=== PATIENT | male | born 1945 | race Caucasian/White ===

== ENCOUNTER → 2017-06-27 09:59 | Outpatient (CLI) | payer MEDICARE, SELFPAY ==
[2017-06-27 10:25] LABS: Hematocrit 49.7 % (40-54); Hemoglobin 15.6 g/dl (13.0-16.5); Mean Corp Hgb Conc 31.4 g/gl (32-36); Mean Corpuscular Hgb 28.5 pg (27.0-32.0); Mean Corpuscular Volume 90.7 fL (80-94); Mean Platelet Vol. 9.1 fl (6.2-12.0); Platelet Count 254 K/mm3 (150-450); RBC Distribution Width CV 15.1 % (11.6-14.6); Red Blood Count 5.48 M/mm3 (4.6-6.2); White Blood Count 7.1 K/mm3 (4.4-11.0)
[2017-06-27 10:27] LABS: Scan Indicated on CBC? Y/N NO
[2017-06-27 10:53] LABS: Anion Gap 6 (5-15); BUN 11 mg/dL (7-18); BUN/Creat Ratio 10.8 RATIO (10-20); Calcium,Total 8.6 mg/dL (8.5-10.1); Chloride 103 mmol/L (98-107); Creatinine, Serum 1.02 mg/dL (0.70-1.30); EST Glomerular Filtration Rate 76 mL/min (>60); Est Glom Filt Rate - Afr Amer 92 mL/min (>60); Glucose 103 mg/dL (70-110); Sodium Level 140 mmol/L (136-145)
== END ==
PROVIDERS: Family Provider Family Medicine; PCP Family Medicine; Visit Provider Orthopaedic Surgery
DX: Z01.818 Encounter for other preprocedural examination (principal)
CPT/HCPCS: 36415; 80048; 85027

== ENCOUNTER → 2017-08-05 13:45 | Outpatient (CLI) | payer MEDICARE, SELFPAY ==
[2017-08-05 15:45] LABS: Anion Gap 7 (5-15); BUN 11 mg/dL (7-18); BUN/Creat Ratio 11.7 RATIO (10-20); Calcium,Total 8.8 mg/dL (8.5-10.1); Chloride 103 mmol/L (98-107); Creatinine, Serum 0.94 mg/dL (0.70-1.30); EST Glomerular Filtration Rate 84 mL/min (>60); Est Glom Filt Rate - Afr Amer 101 mL/min (>60); Glucose 98 mg/dL (74-106); Potassium 3.8 mmol/L (3.5-5.1); Sodium Level 140 mmol/L (136-145)
== END ==
PROVIDERS: Family Provider Family Medicine; PCP Family Medicine; Visit Provider Surgery
DX: I71.4 Abdominal aortic aneurysm, without rupture (principal)
CPT/HCPCS: 36415; 80048

== ENCOUNTER → 2017-08-07 17:39 | Outpatient (CLI) | payer MEDICARE, SELFPAY ==
--- NOTE | 2017-08-07 17:40 | CT_ITS ---
STUDY: CTA OF THE ABDOMINAL AORTA AND BILATERAL LOWER EXTREMITIES REASON FOR EXAM: Male, 72 years old. Aortic aneurysm RADIATION DOSAGE (If Supplied By Facility): CTDIvol = ( 16.01 ) mGy, DLP = ( 974.77 ) mGycm TECHNIQUE: Axial CT angiography multi-detector data acquisition was obtained from the to the following intravenous administration of 100 ml of Isovue 370 contrast. Axial images and MIP images were reconstructed from the axial data set. Post-processing of the angiographic images was performed, with multiplanar reformation and 3D reconstruction. Individualized dose optimization techniques were used for this CT. TECHNICAL QUALITY: Good COMPARISON: None. Descriptors of Narrowing: None (0%) Mild (< 50%) Moderate (50-70%) Severe (70-90%) Subtotal/Total Occlusion (90-100%) Non-Evaluable (technically non-diagnostic FINDINGS: Abdominal aorta: There is an infrarenal abdominal aortic aneurysm measures 5.8 x 5.2 cm on transverse section and extends over 5.5 cm in length. The infrarenal neck of the aneurysm measures 5 cm in length. Transverse diameter of the neck measures 2.5 cm. Celiac and superior mesenteric arteries: No demonstrated narrowing. Inferior mesenteric artery: No demonstrated narrowing. Right renal artery(arteries): No demonstrated narrowing. Left renal artery(arteries): No demonstrated narrowing. Right common iliac artery: No demonstrated narrowing. Right external iliac artery: No demonstrated narrowing. Right internal iliac artery: No demonstrated narrowing. Left common iliac artery: Demonstrates aneurysmal dilatation measures 2.1 cm diameter. Left external iliac artery: No demonstrated narrowing. Left internal iliac artery: No demonstrated narrowing. RIGHT LOWER EXTREMITY Right common femoral artery: No demonstrated narrowing. Right profundus femoris: No demonstrated narrowing. Right superficial femoral: No demonstrated narrowing. Right popliteal artery: No demonstrated narrowing. Right tibioperoneal trunk: No demonstrated narrowing. Right anterior tibial artery: No demonstrated narrowing. Right posterior tibial artery: No demonstrated narrowing. Right peroneal artery: No demonstrated narrowing. LEFT LOWER EXTREMITY Left common femoral artery: No demonstrated narrowing. Left profundus femoris: No demonstrated narrowing. Left superficial femoral: No demonstrated narrowing. Left popliteal artery: No demonstrated narrowing. Left tibioperoneal trunk: No demonstrated narrowing. Left anterior tibial artery: No demonstrated narrowing. Left posterior tibial artery: No demonstrated narrowing. Left peroneal artery: No demonstrated narrowing. There is a small left pleural effusion. The visualized portions of the heart are within normal limits. Normal liver. There are surgical clips in the gallbladder fossa consistent with a prior cholecystectomy. Normal spleen. Normal pancreas. Normal bilateral adrenal glands. Bilateral renal cysts are noted the largest measures 9 cm in left kidney. Normal visualized stomach. Normal small intestine. Normal colon. The appendix is visualized and appears normal. Normal abdominal aorta. Normal inferior vena cava. Normal retroperitoneum. CT/CTA Abdomen W/WO Contrast IMPRESSION: There is an infrarenal abdominal aortic aneurysm measures 5.8 x 5.2 cm on transverse section and extends over 5.5 cm in length. The infrarenal neck of the aneurysm measures 5 cm in length. Transverse diameter of the neck measures 2.5 cm. 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 Small left pleural effusion. Electronically Signed: Javier Guerra MD at 2:49 EST Tel , Service support ,
== END ==
PROVIDERS: Family Provider Family Medicine; PCP Family Medicine; Visit Provider Surgery
DX: I71.4 Abdominal aortic aneurysm, without rupture (principal); I72.3 Aneurysm of iliac artery; J90 Pleural effusion, not elsewhere classified
CPT/HCPCS: 74175; Q9967

== ENCOUNTER → 2017-08-14 10:44 | Outpatient (CLI) | payer MEDICARE, SELFPAY ==
--- NOTE | 2017-08-14 10:49 | CDU_ITS ---
Reason For Study: Carotid bruit Rt. Velocities/BP Lt. Velocities/BP Prox CCA 80.3/14.7 cm/sec. Prox CCA 97.3/18.2 cm/sec. Mid CCA 82.1/14.1 cm/sec. Mid CCA 86.8/19.9 cm/sec. Dist CCA 72.1/15.2 cm/sec. Dist CCA 81.5/15.8 cm/sec. Prox ICA 56.9/14.9 cm/sec. Prox ICA 64.5/23.5 cm/sec. Mid ICA 64.5/18.2 cm/sec. Mid ICA 68.0/22.9 cm/sec. Dist ICA 66.3/18.2 cm/sec. Dist ICA 78.0/25.2 cm/sec. Rt. ICA/CCA = .81. Lt. ICA/CCA = .90. Prox ECA 113.0/7.0 cm/sec. Prox ECA 99.1/12.9 cm/sec. Rt. Vert. 59.2/19.3 cm/sec. Lt. Vert. 36.9/10.0 cm/sec. Right Extracranial There is intimal thickening but no significant atherosclerotic plaque noted in the right common carotid artery. There is heterogeneous, smooth atherosclerotic plaque noted in the right internal carotid artery. There is no significant atherosclerotic plaque noted in the right external carotid artery. Antegrade flow is noted in the right vertebral artery. Left Extracranial There is intimal thickening but no significant atherosclerotic plaque noted in the left common carotid artery. There is heterogeneous, irregular atherosclerotic plaque noted in the left internal carotid artery. There is no significant atherosclerotic plaque noted in the left external carotid artery. Antegrade flow is noted in the left vertebral artery. Procedure Carotid Duplex 01401. Exam performed in department. 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 Minimal calcific plague at the proximal left internal carotid with <50% stenosis. Normal flow bilateral external carotids. Patent and antegrade vertebrals bilaterally. Ordering Physician: Nam Berg Referring Physician: Nam Berg Performed By: Lorena Mario RVT
== END ==
PROVIDERS: Family Provider Family Medicine; PCP Family Medicine; Visit Provider Surgery
DX: R09.89 Other specified symptoms and signs involving the circulatory and respiratory systems (principal)
CPT/HCPCS: 93880

== ENCOUNTER 2017-09-09 04:52 | Inpatient (IN) | payer MEDICARE, SELFPAY ==
[2017-09-02 09:15] VITALS: BP 121/80; PULSE 70; RESP 17; TEMP 36.5; O2SAT 96; BMI 34.1
--- NOTE | 2017-09-02 09:40 | SDCEKG_ITS ---
Test Reason : Blood Pressure : / mmHG Vent. Rate : 068 BPM Atrial Rate : 068 BPM P-R Int : 182 ms QRS Dur : 092 ms QT Int : 410 ms P-R-T Axes : 051 073 050 degrees QTc Int : 435 ms Sinus rhythm with Premature atrial complexes Otherwise normal ECG Confirmed by SAI GIFFORD, CYRUS ([id number]), department editor ROCIO WRIGHT ([id number]) on 09/05/2017 12:49:13 PM Referred By: Nam Berg Confirmed By:CYRUS GIBBS MD
--- NOTE | 2017-09-02 10:00 | RAD_ITS ---
STUDY: X-RAY CHEST REASON FOR EXAM: Male, 72 years old. Preoperative evaluation. TECHNIQUE: PA and lateral views of the chest. COMPARISON: Comparison is made with prior examination dated December 27, 2016. FINDINGS: Hyperinflation. There is blunting of the left cost phrenic angle with a small left pleural effusion with underlying left basilar atelectasis and/or early infiltrate. This is new as compared to prior study. Normal size heart. Normal mediastinum and chandler. Normal visualized pulmonary arteries. Normal visualized aortic arch and descending thoracic aorta. There are diffuse degenerative changes of the visualized thoracic spine. Normal visualized ribs, clavicles, and shoulders. There is no demonstrated abnormality of the visualized soft tissue structures of the upper abdomen. RAD/Chest PA and Lateral IMPRESSION: Small left pleural effusion with underlying infiltration and/or atelectasis. Hyperinflation. Electronically Signed: Eriberto Allen MD at 10:27 EDT Tel [phone], Service support ,
[2017-09-02 10:24] LABS: Hematocrit 45.6 % (40-54); Hemoglobin 14.6 g/dl (13.0-16.5); Mean Corpuscular Hgb 28.3 pg (27.0-32.0); Mean Corpuscular Volume 88.4 fL (80-94); Mean Platelet Vol. 9.1 fl (6.2-12.0); Platelet Count 267 K/mm3 (150-450); RBC Distribution Width SD 45.1 fl (35.1-43.9); Red Blood Count 5.16 M/mm3 (4.6-6.2)
[2017-09-02 10:25] LABS: Scan Indicated on CBC? Y/N NO
[2017-09-02 10:30] LABS: Prothrombin Time (Protime)PT. 12.9 SECONDS (11.7-14.9)
[2017-09-02 10:33] LABS: Albumin, Serum 2.9 g/dL (3.2-5.0); Anion Gap 6 (5-15); BUN 10 mg/dL (7-18); Calcium,Total 8.4 mg/dL (8.5-10.1); Chloride 108 mmol/L (98-107); Creatinine, Serum 0.91 mg/dL (0.70-1.30); EST Glomerular Filtration Rate 87 mL/min (>60); Est Glom Filt Rate - Afr Amer 106 mL/min (>60); Estimated Creatinine Clearance 82.92 ml/min; Glucose 90 mg/dL (74-106); Potassium 3.9 mmol/L (3.5-5.1); Sodium Level 142 mmol/L (136-145)
[2017-09-02 10:39] LABS: AST(SGOT) 8 U/L (15-37); Alanine Aminotransfer ALT/SGPT 11 U/L (16-61); Albumin, Serum 2.9 g/dL (3.2-5.0); Alkaline Phosphatase 176 U/L (45-117); Bilirubin, Direct 0.14 mg/dL (0.00-0.30); Globulin 4.3 g/dL (2.2-4.2); Magnesium 2.1 mg/dL (1.6-2.6); Phosphorus 3.1 mg/dL (2.5-4.9); Protein, Total 7.2 g/dL (6.4-8.2)
[2017-09-09] VITALS (37 sets, daily range): BP systolic 90–181; BP diastolic 47–87; PULSE 51–83; RESP 9–17; TEMP 36.3–37; O2SAT 92–99; BMI 32.7; BMI 34.1
--- NOTE | 2017-09-09 06:05 | NURSING ---
Pt arrived to the unit at 05:10, prep was complete by this RN and fellow RN's. Pt is ready and prepped for Dr Berg to place A-Line.
--- NOTE | 2017-09-09 06:58 | PCM.OPRPT ---
Problem List (1) Abdominal aortic aneurysm (AAA) Status: Acute Qualifiers: Presence of rupture: without rupture Qualified Code(s): I71.4 - Abdominal aortic aneurysm, without rupture Report of Operation Date of Procedure: 09/09/17 Pre-Operative Diagnosis: Infrarenal abdominal aortic aneurysm Post-Operative Diagnosis: Same Surgery/Procedure Performed:: Left radial arterial line placement. Infrarenal abdominal aortic aneurysm stent graft repair Description of Surgical Findings:: Timeout and informed consent was obtained. At the bedside in the intensive care unit Toby test was performed demonstrating adequate ulnar flow. The left wrist was gently extended. It was prepped with Betadine. Under ultrasound guidance 1% lidocaine was instilled as a local anesthetic. A total 1 cc was used. A 20-gauge aero kit Angiocath was advanced under ultrasound guidance into the artery. Then utilizing Seldinger wire technique the catheter was advanced into the artery. It was secured skin with interrupted 4-0 nylon. OpSite dressing was applied followed by Coban wrap. Patient tolerated the procedure well. Hand was viable at the completion. There is no apparent complication. Good waveform was obtained. He was subsequently taken to the special procedures lab for definitive repair of his aortic aneurysm. 72-year-old gentleman was taken to the special procedures lab. He was placed on the table. He underwent monitored anesthesia care. 2 g of Ancef were given intravenously preoperatively. The abdomen and groins were sterilely prepped and draped. 1% lidocaine mixed 50-50 with 0.5% Marcaine was used as a local anesthetic. Throughout the procedure total 30 cc was used. Under ultrasound guidance both the right and left common femoral arteries were accessed with a singlewall needle. Seldinger wire technique performed. A Prydeinig short sheath dilator was inserted. Then 4 separate Perclose devices were placed over an 035 J-wire. These were performed at 2:00 8:00 positions and 10:00 4:00 positions. Having secured those then used the J-wire placed a pigtail catheter into the abdominal aorta proximal to the aneurysm then placed on Anplats wires bilaterally placed a 12 Prydeinig sheath on the left and a 16 Prydeinig sheath on the right. The main body 26 x 14.5 x 12 cm [place] excluder device was placed via the right common femoral. Reference number is [id number]. Serial #[id number]. An additional device is used where extension devices. Reference number PLC [id number]. Serial #[id number]. The additional device was reference number PLC [id number]. Serial #[id number]. A pigtail catheter with marking slots were placed from the left groin. Using Isovue contrast a AP aortogram was obtained with 12? of cc angulation. Bilateral renal arteries are identified. The main body device was then deployed via the right common femoral groin. Good positioning was achieved. The contralateral 12 Prydeinig sheath was then withdrawn and using a 5 Prydeinig Kumpe catheter to 035 angled Glidewire access was gained to the contralateral limb. Then that was exchanged out for a Amplatz wire. The pigtail catheter was inserted. The contralateral sheath was withdrawn. Contrast is injected retrograde through the sheath and measurements were made to the left internal iliac. Subsequently the 20 x 14 cm bulb on the device was placed on the left. The main body device was deployed completely than on the right. And a Sequeira upon extension measuring by 12 cm was placed. Subsequently the device was seated in place using a 27 mm diameter compliant balloon. Pigtail catheter was reinserted into the aorta proximal to the renals and using 15 cc a second for 25 cc of contrast in the AP aortogram was obtained. This demonstrated good positioning of all grafts with seeming of exclusion of the aneurysm. It was no endoleak identified. There was backflow noted via some lumbars on the right and via the CAROLEE on the left. Over on Plotts wires the sheaths were removed. The left groin was addressed first in the previously placed Perclose sutures were sterilely secured with good results on the left than the right was addressed. Good hemostasis simply achieved on the right. The feet were inspected they were noted to be warm viable with palpable pulses distally. At this point the patient received 20 mg of protamine. It is of note that after the placement of the original 8 Prydeinig sheaths that the patient received 12,000 units of heparin intravenously weight-based. After ACT measurements he received and other additional 1000 units of heparin IV. Sponge instrument needle counts were reported the surgeon for correct. Blood loss was approximately 200 cc. There were no specimens. No drains. He was taken back to the intensive care unit in satisfactory condition. Nam Berg M.D., F.A.C.S.
--- NOTE | 2017-09-09 07:00 | NURSING ---
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
[2017-09-09] MEDS: Cefazolin 2 GM in 0.9% Normal Saline 100 ML IV (07:24)
[2017-09-09] MEDS: Bupivacaine Mpf 0.5% 30 ML VIAL (08:00)
[2017-09-09 09:45] LABS: ACT Activated Clotting Time 131 sec (74-137)
[2017-09-09 09:45] LABS: ACT Activated Clotting Time 230 sec (74-137)
[2017-09-09 09:45] LABS: ACT Activated Clotting Time 246 sec (74-137)
[2017-09-09] MEDS: 0.9% Normal Saline 1,000 ML 75 ML IV ×2 (10:00→23:14)
--- NOTE | 2017-09-09 10:19 | PCM.PN.HOSP ---
Subjective: Patient is a 72-year-old gentleman with past medical history significant for Infrarenal abdominal aortic aneurysm for which patient underwent I Infrarenal abdominal aortic aneurysm stent graft repair by Dr. Nam Berg on on 09/09/2017. Patient post operative. Was complicated by elevated blood pressure. Patient apparently has hypertension for which he has not been on any antihypertensive medication. Patient was admitted to the intensive care unit for monitoring with consultation placed to the hospitalist service for management of patient blood pressure Objective: GENERAL: no apparent distress. HEENT: Clear conjunctiva, NECK; supple, normal thyroid, CHEST: Clear to auscultation bilaterally, HEART: Regular S1 S2, no audible murmurs ABDOMEN: soft, normoactive bowel sounds, RECTAL: deferred EXTREMITIES: No clubbing, no cyanosis. GRADE CHECKER: no lateralizing signs. SKIN: No lesions no erythema, Vitals/I&O's: Vital Signs Temp Pulse Resp BP Pulse Ox 97.4 F L 58 L 14 121/60 H 93 09/09/17 10:00 09/09/17 10:15 09/09/17 10:15 09/09/17 10:15 09/09/17 10:15 Oxygen Flow Rate (L/min) 2 Oxygen Delivery Method Nasal Cannula Weight: 112.5 kg Body Mass Index (BMI) 32.7 Intake and Output for Last 24 Hours 09/07/17 09/08/17 09/09/17 23:59 23:59 23:59 Output Total 700 / 700 Balance -700 / -700 Laboratory Results 09/09/17 06:55: Activated Clotting Time 131 09/09/17 08:50: Activated Clotting Time 230 H 09/09/17 09:12: Activated Clotting Time 246 H Current Medications Sodium Chloride () 250 mls @ 15 mls/hr IV .[id number] PRN PRN Reason: SALINE FLUSH Sodium Chloride () 5 - 30 ml IV UD PRN PRN Reason: SALINE FLUSH Medical Necessity - Tobacco Use Smoking Status: Current some day smoker Tobacco Use: Cigarettes Assessment/Plan Patient is a 72-year-old gentleman with past medical history significant for Infrarenal abdominal aortic aneurysm for which patient underwent I Infrarenal abdominal aortic aneurysm stent graft repair by Dr. Nam Berg on on 09/09/2017. Patient post operative. Was complicated by elevated blood pressure. Patient apparently has hypertension for which he has not been on any antihypertensive medication. Patient was admitted to the intensive care unit for monitoring with consultation placed to the hospitalist service for management of patient blood pressure 1. Status post Infrarenal abdominal aortic aneurysm stent graft repair by Dr. Nam Berg on on 09/09/2017 2. Hypertension patient blood pressure currently stable, an order was given for patient to be placed on hydralazine 10 mg every 4 hours as needed for systolic blood pressure greater than 160 3. Dyslipidemia patient currently managed with diet apparently allergic to statins 4. BPH patient is on Proscar and Flomax 5. DVT prophylaxis SCDs for now Code Visit Inpatient E&M: 40497 Subs Hosp L3
--- NOTE | 2017-09-09 14:34 | CASEMGMT ---
See RN CM Assessment Link. DC Plan Home- no needs identified. Femi MELVINN RN ACM
[2017-09-09] MEDS: Tamsulosin HCl 0.4 MG Capsule PO (15:07)
[2017-09-09] MEDS: Finasteride 5 MG Tablet PO (15:07)
[2017-09-09] MEDS: FLUoxetine 20 MG Capsule PO (15:07)
--- NOTE | 2017-09-09 17:08 | CPS ---
started by nursing
[2017-09-09] MEDS: hydrALAZINE 20 MG/ML Vial 10 MG IV (17:44)
[2017-09-09] MEDS: HYDROcodone Bitartrate/Apap 5/325 Tablet PO (17:55)
[2017-09-09] MEDS: amLODIPine 10 MG Tablet PO (18:41)
--- NOTE | 2017-09-09 19:29 | PCM.PN.BLA ---
Progress Note Pt with soreness bilateral groins Much more alert Some flatus HTN being treated Bilateral groins: supple Feet with pulses Continue gaurav and care
[2017-09-09] MEDS: LORazepam 2 MG/ML Syringe 0.5 MG IV (20:39)
[2017-09-09] MEDS: 0.9% NaCl Peripheral Flush Adult/Peds IV (20:39)
[2017-09-09] MEDS: BRIMONIDINE 0.2% 5ML BOTTLE 1 DRP EACH EYE (20:40)
[2017-09-09] MEDS: Timolol 0.5% 5ML OPTH.BTL 1 DRP EACH EYE (20:43)
[2017-09-10] VITALS (17 sets, daily range): BP systolic 121–160; BP diastolic 64–84; PULSE 75–92; RESP 14–23; TEMP 36.5–37.2; O2SAT 93–97
[2017-09-10 04:17] LABS: Absolute Lymphocyte Count 1.39 X10^3/ul (0.83-4.51); Absolute Neutrophil Count 6.9 X10^3/uL (2.0-7.7); Basophil# 0.02 X10^3/uL; Basophil% 0.2 % (0-1); Eosinophil# 0.28 X10^3/uL; Hematocrit 39.4 % (40-54); Hemoglobin 12.6 g/dl (13.0-16.5); Lymphocyte # 1.39 X10^3/ul (4.0); Lymphocyte % 14.8 % (19-41); Mean Corpuscular Volume 87.6 fL (80-94); Mean Platelet Vol. 8.8 fl (6.2-12.0); Monocyte# 0.81 X10^3/uL; Monocyte% 8.6 % (0-10); Neutrophil # 6.86 X10^3/uL (2.7-7.7); Neutrophil % 73.1 % (47-70); Platelet Count 244 K/mm3 (150-450); RBC Distribution Width CV 13.9 % (11.6-14.6); RBC Distribution Width SD 44.2 fl (35.1-43.9); White Blood Count 9.4 K/mm3 (4.4-11.0)
[2017-09-10 04:21] LABS: POSITIVE COUNT NO; POSITIVE DIFFERENTIAL NO; POSITIVE MORPHOLOGY NO
[2017-09-10 04:35] LABS: Anion Gap 7 (5-15); BUN 6 mg/dL (7-18); BUN/Creat Ratio 9.1 RATIO (10-20); Calcium,Total 7.9 mg/dL (8.5-10.1); Chloride 105 mmol/L (98-107); Creatinine, Serum 0.66 mg/dL (0.70-1.30); EST Glomerular Filtration Rate 127 mL/min (>60); Est Glom Filt Rate - Afr Amer 154 mL/min (>60); Estimated Creatinine Clearance 75.46 ml/min; Glucose 102 mg/dL (74-106); Potassium 3.7 mmol/L (3.5-5.1); Sodium Level 140 mmol/L (136-145)
[2017-09-10] MEDS: 0.9% NaCl Peripheral Flush Adult/Peds IV (05:05)
[2017-09-10] MEDS: hydrALAZINE 20 MG/ML Vial 10 MG IV (05:05)
--- NOTE | 2017-09-10 05:49 | PCM.PN.SRG ---
Subjective: Pt c/o soreness right arm at site of IV infiltrate Mild groin soreness Pos. flatus - Physical Exam General: Alert, Cooperative, No apparent distress Lungs: Clear to auscultation Cardiovascular: Regular rate Abdomen: Bowel Sounds Present, Soft, Non Tender Extremities: - - Mild ecchymosis bilateral groins Distal pulses intact Vital Signs Temp Pulse Resp BP Pulse Ox 98.9 F 85 23 H 160/75 H 96 09/10/17 04:00 09/10/17 05:05 09/10/17 05:00 09/10/17 05:05 09/10/17 05:00 Oxygen Flow Rate (L/min) 2 Oxygen Delivery Method Room Air Weight: 255 lb 1.197 oz Body Mass Index (BMI) 32.7 Intake and Output for Last 24 Hours 09/08/17 09/09/17 09/10/17 23:59 23:59 23:59 Intake Total 4284.0 / 4284.0 926 / 926 Output Total 2783 / 2783 475 / 475 Balance 1501.0 / 1501.0 451 / 451 Laboratory Tests Past 24 Hrs 09/09/17 09/09/17 09/09/17 06:55 08:50 09:12 WBC RBC Hgb Hct MCV MCH MCHC RDW RDW Differential Plt Count MPV Immature Gran % (Auto) Neut % (Auto) Lymph % (Auto) [place] % (Auto) Eos % (Auto) Baso % (Auto) Absolute Neuts (auto) Absolute Lymphs (auto) Total Counted Activated Clotting Time 131 230 H 246 H Sodium Potassium Chloride Carbon Dioxide Anion Gap BUN Creatinine Estim Creat Clear Calc Est GFR (MDRD) Af Amer Est GFR (MDRD) Non-Af BUN/Creatinine Ratio Glucose Calcium 09/10/17 09/10/17 04:00 04:00 WBC 9.4 RBC 4.50 L Hgb 12.6 L Hct 39.4 L MCV 87.6 MCH 28.0 MCHC 32.0 RDW 13.9 RDW Differential 44.2 H Plt Count 244 MPV 8.8 Immature Gran % (Auto) 0.300 Neut % (Auto) 73.1 H Lymph % (Auto) 14.8 L [place] % (Auto) 8.6 Eos % (Auto) 3.0 Baso % (Auto) 0.2 Absolute Neuts (auto) 6.9 Absolute Lymphs (auto) 1.39 Total Counted Not Reportable Activated Clotting Time Sodium 140 Potassium 3.7 Chloride 105 Carbon Dioxide 28.0 Anion Gap 7 BUN 6 L Creatinine 0.66 L Estim Creat Clear Calc 75.46 Est GFR (MDRD) Af Amer 154 Est GFR (MDRD) Non-Af 127 BUN/Creatinine Ratio 9.1 L Glucose 102 Calcium 7.9 L Medical Necessity - Tobacco Use Smoking Status: Current some day smoker Tobacco Use: Cigarettes Assessment/Plan Pt needs to void Plan discharge after primary care review and outpt HTN plan
--- NOTE | 2017-09-10 07:31 | PCM.PN.HOSP ---
Subjective: Seen had a relatively uneventful night. Blood pressure control still not optimal patient was started on amlodipine the day prior added Coreg 3.125 mg this a.m. Objective: GENERAL: no apparent distress. HEENT: Clear conjunctiva, NECK; supple, normal thyroid, CHEST: Clear to auscultation bilaterally, HEART: Regular S1 S2, no audible murmurs ABDOMEN: soft, normoactive bowel sounds, RECTAL: deferred EXTREMITIES: No clubbing, no cyanosis. ELEVATOR INSPECTOR: no lateralizing signs. SKIN: No lesions no erythema, Vitals/I&O's: Vital Signs Temp Pulse Resp BP Pulse Ox 98.9 F 90 17 151/80 H 96 09/10/17 07:22 09/10/17 07:22 09/10/17 07:22 09/10/17 07:22 09/10/17 07:30 Oxygen Flow Rate (L/min) 2 Oxygen Delivery Method Room Air Weight: 115.7 kg Body Mass Index (BMI) 32.7 Intake and Output for Last 24 Hours 09/08/17 09/09/17 09/10/17 23:59 23:59 23:59 Intake Total 4284.0 / 4284.0 1257 / 1257 Output Total 2783 / 2783 675 / 675 Balance 1501.0 / 1501.0 582 / 582 Laboratory Results 09/09/17 06:55: Activated Clotting Time 131 09/09/17 08:50: Activated Clotting Time 230 H 09/09/17 09:12: Activated Clotting Time 246 H 09/10/17 04:00: WBC 9.4, RBC 4.50 L, Hgb 12.6 L, Hct 39.4 L, MCV 87.6, MCH 28.0, MCHC 32.0, RDW 13.9, RDW Differential 44.2 H, Plt Count 244, MPV 8.8, Immature Gran % (Auto) 0.300, Neut % (Auto) 73.1 H, Lymph % (Auto) 14.8 L, Gage % (Auto) 8.6, Eos % (Auto) 3.0, Baso % (Auto) 0.2, Absolute Neuts (auto) 6.9, Absolute Lymphs (auto) 1.39, Total Counted Not Reportable 09/10/17 04:00: Sodium 140, Potassium 3.7, Chloride 105, Carbon Dioxide 28.0, Anion Gap 7, BUN 6 L, Creatinine 0.66 L, Estim Creat Clear Calc 75.46, Est GFR (MDRD) Af Amer 154, Est GFR (MDRD) Non-Af 127, BUN/Creatinine Ratio 9.1 L, Glucose 102, Calcium 7.9 L Current Medications Hydrocodone Bitart/Acetaminophen (Texline 5mg-325mg) 1 - 2 tablet PO Q4H PRN PRN PRN Reason: PAIN Last Admin: 09/09/17 17:55 Dose: 1 tablet Amlodipine Besylate (Norvasc) 10 mg PO DAILY [facility] Last Admin: 09/09/17 18:41 Dose: 10 mg Aspirin (Aspirin, Baby) 81 mg PO DAILY@0800 [facility] Brimonidine Tartrate (Brimonidine 0.2% 5ml Bottle) 1 drop EACH EYE BID [facility] Last Admin: 09/09/17 20:40 Dose: 1 drop Carvedilol (Coreg) 3.125 mg PO BID [facility] Finasteride (Proscar) 5 mg PO DAILY [facility] Last Admin: 09/09/17 15:07 Dose: 5 mg Fluoxetine HCl (Prozac) 20 mg PO DAILY [facility] Last Admin: 09/09/17 15:07 Dose: 20 mg Hydralazine HCl (Apresoline Iv) 10 mg IV Q4H PRN PRN PRN Reason: for SBP > 150 Last Admin: 09/10/17 05:05 Dose: 10 mg Lorazepam (Ativan) 0.5 mg IV Q6H PRN PRN PRN Reason: pain/anxiety Last Admin: 09/09/17 20:39 Dose: 0.5 mg Morphine Sulfate () 2 - 4 mg IV Q1H PRN PRN PRN Reason: PAIN Morphine Sulfate () 2 - 4 mg IV Q1H PRN PRN PRN Reason: PAIN Non-Formulary Medication (Imiquimod [Imiquimod]) 1 applic TOPICAL 5XW [facility] Ondansetron HCl (Zofran) 4 mg IV Q8H PRN PRN PRN Reason: Nausea/Vomiting Pantoprazole Sodium (Protonix) 20 mg PO DAILY [facility] Sodium Chloride () 5 - 30 ml IV UD PRN PRN Reason: SALINE FLUSH Last Admin: 09/10/17 05:05 Dose: 10 ml Tamsulosin HCl (Flomax) 0.4 mg PO DAILY [facility] Last Admin: 09/09/17 15:07 Dose: 0.4 mg Timolol Maleate (Timoptic) 1 drop EACH EYE BID [facility] Last Admin: 09/09/17 20:43 Dose: 1 drop Medical Necessity - Tobacco Use Smoking Status: Current some day smoker Tobacco Use: Cigarettes Assessment/Plan Patient is a 72-year-old gentleman with past medical history significant for Infrarenal abdominal aortic aneurysm for which patient underwent I Infrarenal abdominal aortic aneurysm stent graft repair by Dr. Nam Berg on on 09/09/2017. Patient post operative. Was complicated by elevated blood pressure. Patient apparently has hypertension for which he has not been on any antihypertensive medication. Patient was admitted to the intensive care unit for monitoring with consultation placed to the hospitalist service for management of patient blood pressure 1. Status post Infrarenal abdominal aortic aneurysm stent graft repair by Dr. Nam Berg on on 09/09/2017 2. Hypertension patient blood pressure currently stable, an order was given for patient to be placed on hydralazine 10 mg every 4 hours as needed for systolic blood pressure greater than 160 added amlodipine as well as Coreg to achieve optimal blood pressure control 3. Dyslipidemia patient currently managed with diet apparently allergic to statins 4. BPH patient is on Proscar and Flomax 5. DVT prophylaxis SCDs for now Code Visit Inpatient E&M: 68164 [facility] Hosp L3
--- NOTE | 2017-09-10 08:54 | PCM.DC.GS ---
Discharge Diet: Light diet - advance as tolerated Discharge Activity: May not drive while taking narcotic pain medications., May Not Shower - Sponge bathe until Friday keeping the incisions dry. May shower in (days): 3 Lifting Restrictions: 5 pounds Call your doctor if your incision/area has: Continuous Slow Oozing, Sudden Increased Bleeding, Increased Pain/ Swelling, Swelling at the incision site Call your doctor if you observe: Fever of 101 or Higher, Change in Color Suture Line Care: Avoid Pulling/Pushing, Avoid Pinching/Bending Cleanse incision/area with: Do not get Incision Wet Allergies/Adverse Reactions: Allergies adhesive Adverse Reaction (Verified 09/02/17 09:08) Itching atorvastatin [From Lipitor] Adverse Reaction (Verified 09/02/17 09:08) Other rosuvastatin calcium [From Crestor] Adverse Reaction (Verified 09/02/17 09:08) ACHING Medications to take at Discharge Finasteride [Proscar] 5 mg PO DAILY 11/18/13 Omeprazole [Prilosec] 20 mg PO DAILY 11/18/13 Tamsulosin HCl [Flomax] 0.4 mg PO DAILY 11/18/13 Aspirin E.C. [Ecotrin] 81 mg PO DAILY@0800 12/27/16 Fluoxetine HCl [Prozac] 20 mg PO DAILY 12/27/16 brimonidine 0.2 % eye drops 1 drp OPHTHALMIC BID ml 08/05/17 timolol maleate 0.5 % eye drops 1 drp OPHTHALMIC BID 08/05/17 Imiquimod 1 applic TOPICAL 5XW 09/09/17 Amlodipine [Norvasc] 10 mg PO DAILY #30 tab 09/10/17 Carvedilol [Coreg (Beta [place])] 3.125 mg PO BID #60 tab 09/10/17 Hydrocodone Bitart/Apap 5-325 [[place] 5/325] 1 - 2 tablet PO Q4H PRN PRN 3 Days #10 tablet 09/10/17 The following prescriptions were given: Hydrocodone Bitart/Apap 5-325 [[place] 5/325] 1 - 2 tablet PO Q4H PRN PRN 3 Days #10 tablet PRN Reason: Pain Amlodipine [Norvasc] 10 mg PO DAILY #30 tab Carvedilol [Coreg (Beta Junito)] 3.125 mg PO BID #60 tab Primary Care Physician: Osbaldo Berg III, MD [Primary Care Provider] - Please Follow Up With: Nam Berg MD - [phone] When: 10 days Proposed Discharge Date: 09/10/17
--- NOTE | 2017-09-10 08:58 | DCINST_ITS ---
Discharge Diet: Light diet - advance as tolerated Discharge Activity: May not drive while taking narcotic pain medications., May Not Shower - Sponge bathe until Friday keeping the incisions dry. May shower in (days): 3 Lifting Restrictions: 5 pounds Call your doctor if your incision/area has: Continuous Slow Oozing, Sudden Increased Bleeding, Increased Pain/ Swelling, Swelling at the incision site Call your doctor if you observe: Fever of 101 or Higher, Change in Color Suture Line Care: Avoid Pulling/Pushing, Avoid Pinching/Bending Cleanse incision/area with: Do not get Incision Wet Allergies/Adverse Reactions: Allergies adhesive Adverse Reaction (Verified 09/02/17 09:08) Itching atorvastatin [From Lipitor] Adverse Reaction (Verified 09/02/17 09:08) Other rosuvastatin calcium [From Crestor] Adverse Reaction (Verified 09/02/17 09:08) ACHING Medications to take at Discharge Finasteride [Proscar] 5 mg PO DAILY 11/18/13 Omeprazole [Prilosec] 20 mg PO DAILY 11/18/13 Tamsulosin HCl [Flomax] 0.4 mg PO DAILY 11/18/13 Aspirin E.C. [Ecotrin] 81 mg PO DAILY@0800 12/27/16 Fluoxetine HCl [Prozac] 20 mg PO DAILY 12/27/16 brimonidine 0.2 % eye drops 1 drp OPHTHALMIC BID ml 08/05/17 timolol maleate 0.5 % eye drops 1 drp OPHTHALMIC BID 08/05/17 Imiquimod 1 applic TOPICAL 5XW 09/09/17 Amlodipine [Norvasc] 10 mg PO DAILY #30 tab 09/10/17 Carvedilol [Coreg (Beta Junito)] 3.125 mg PO BID #60 tab 09/10/17 Hydrocodone Bitart/Apap 5-325 [[place] 5/325] 1 - 2 tablet PO Q4H PRN PRN 3 Days # 10 tablet 09/10/17 The following prescriptions were given: Hydrocodone Bitart/Apap 5-325 [[place] 5/325] 1 - 2 tablet PO Q4H PRN PRN 3 Days # 10 tablet PRN Reason: Pain Amlodipine [Norvasc] 10 mg PO DAILY #30 tab Carvedilol [Coreg (Beta Junito)] 3.125 mg PO BID #60 tab Primary Care Physician: Osbaldo Berg III, MD [Primary Care Provider] - Please Follow Up With: Nam Berg MD - [phone] When: 10 days Proposed Discharge Date: 09/10/17
[2017-09-10] MEDS: Carvedilol 3.125 MG TABLET PO (09:43)
[2017-09-10] MEDS: Aspirin 81 MG TAB.CHEW PO (09:43)
[2017-09-10] MEDS: FLUoxetine 20 MG Capsule PO (09:44)
[2017-09-10] MEDS: Pantoprazole Sodium 20 MG Tablet PO (09:44)
[2017-09-10] MEDS: BRIMONIDINE 0.2% 5ML BOTTLE 1 DRP EACH EYE (09:44)
[2017-09-10] MEDS: Finasteride 5 MG Tablet PO (09:44)
[2017-09-10] MEDS: Timolol 0.5% 5ML OPTH.BTL 1 DRP EACH EYE (09:45)
[2017-09-10] MEDS: amLODIPine 10 MG Tablet PO (09:46)
== END 2017-09-10 13:34 | disposition home or self-care (01) | DRG 269 ==
PROVIDERS: Anesthesiology; Admitting Provider Surgery; Family Provider Family Medicine; PCP Family Medicine; Visit Provider Surgery
PROC: 04V03DZ Restriction of Abdominal Aorta with Intraluminal Device, Percutaneous Approach (ICD-10-PCS; principal; 2017-09-09 07:00)
DX: I71.4 Abdominal aortic aneurysm, without rupture (principal); I87.2 Venous insufficiency (chronic) (peripheral); I10 Essential (primary) hypertension; F43.21 Adjustment disorder with depressed mood; F17.220 Nicotine dependence, chewing tobacco, uncomplicated; K21.9 Gastro-esophageal reflux disease without esophagitis; J43.9 Emphysema, unspecified; N40.0 Benign prostatic hyperplasia without lower urinary tract symptoms; L57.0 Actinic keratosis; E78.5 Hyperlipidemia, unspecified; R09.89 Other specified symptoms and signs involving the circulatory and respiratory systems; Z79.82 Long term (current) use of aspirin; Z79.899 Other long term (current) drug therapy; Z85.828 Personal history of other malignant neoplasm of skin
CPT/HCPCS: 34701; 34709; 36200; 75625; 76937; 80048; 80076; 82040; 83735; 84100; 85025; 85027; 85347; 85610; 85730; 86850; 86900; J7030; Q9967; A4216; C1725; C1760; C1769; C1894

== ENCOUNTER → 2017-11-20 12:35 | Outpatient (CLI) | payer MEDICARE, SELFPAY ==
--- NOTE | 2017-11-20 13:00 | CT_ITS ---
STUDY: CTA OF THE ABDOMINAL AORTA REASON FOR EXAM: Male, 72 years old. Status post abdominal aortic aneurysm repair 09/09/2017. Follow-up. RADIATION DOSAGE (If Supplied By Facility): CTDIvol = ( 32.59 ) mGy, DLP = ( 986.13 ) mGycm TECHNIQUE: Axial CT angiography multi-detector data acquisition was obtained from the lung bases to the mid pelvis following intravenous administration of 100mL ml of Isovue 370 contrast. Axial images and MIP images were reconstructed from the axial data set. Post-processing of the angiographic images was performed, with multiplanar reformation and 3D reconstruction. Individualized dose optimization techniques were used for this CT. TECHNICAL QUALITY: Good COMPARISON: CTA abdomen and pelvis 08/07/2017, 03/02/2017. FINDINGS: Body wall soft tissues: No acute process. Osseous structures: Mild scoliosis and mild lumbar spondylosis with osteopenia. Inferior chest: Mild hyperlucency at the lung bases suggests underlying COPD. The right lung bases otherwise clear. At the left lung base, mild atelectasis, small subpulmonic effusion. Distal esophagus normal, mild cardiomegaly with no pericardial effusion. Hepatobiliary: Cholecystectomy, otherwise unremarkable. Pancreas: No acute process. Spleen: No acute process. Adrenal glands: No acute process. Urogenital: Stable multiple benign renal cysts. Otherwise symmetric nephrograms and normal renal cortical thickness. Normal collecting systems, ureters. Retroperitoneum: No mass or lymphadenopathy. Stomach and small bowel: Normal. Large bowel: Normal appendix. Minimal diverticulosis of the sigmoid without diverticulitis. Vasculature: Aortoiliac stent graft. Proximal landing zone just below the takeoff of the renal arteries. Distal landing zones in the common iliac arteries. The graft is widely patent and well-positioned, and normally expanded There is no hyperdense thrombus within the [place] aneurysm sac. The [place] sac has a maximum diameter of 4.6 cm, fusiform shape with a length of 6.4 cm. There is evidence of very tiny type II endoleak involving inferior mesenteric artery, and involving a lumbar artery, very minimal blush of contrast within the [place] sac. CT/CTA Abdomen W/WO Contrast IMPRESSION: Appropriate positioning of the aortoiliac stent. Minimal type II endoleak's. Small left subpulmonic effusion with left lung base atelectasis. Electronically Signed: Adonis Jay, at 8:38 EDT Tel , Service support ,
[2017-11-20 13:25] LABS: CREATININE FINGERSTICK 0.9 mg/dL (0.70-1.30); EGFR FINGERSTICK > 60.0000 mL/min (>60)
== END ==
PROVIDERS: Family Provider Family Medicine; PCP Family Medicine; Visit Provider Surgery
DX: Z98.890 Other specified postprocedural states (principal); Z86.79 Personal history of other diseases of the circulatory system
CPT/HCPCS: 74175; Q9967

== ENCOUNTER 2017-12-29 11:50 | Day surgery (SDC) | payer SELFPAY ==
--- NOTE | 2017-12-29 11:54 | HP.PCM_ITS ---
History and Physical Date of Admission: 12/29/17 HISTORY AND PHYSICAL ? Rick Appiah 1945 ? REFERRING PHYSICIAN: ~~Osbaldo Berg III, MD ? CHIEF COMPLAINT: ~~Consult ? HPI: The patient is a 72 year old male referred for endoscopy. ~Rick no colon complaints. ~He denies any change in bowel habits, weight changes, blood in stools, black tarry stools or abdominal pain. ~He denies any known family history of colon cancer. ~The patient notes a past history of GERD, but states this is currently well-controlled with medication with no breakthrough symptoms. ~Last colonoscopy was in August 2007, due for 10-year screening. ? The patient is being seen by me today at the request of Dr. Osbaldo Berg III~for my opinion and advice regarding screening colonoscopy. ~~Past medical history is significant for hypertension, hyperlipidemia, emphysema, squamous cell carcinoma, and he is s/p AAA repair in August 2017. ~This was complicated by significant hypertension, patient has been working closely with PCP to get blood pressure under control since that time. ~He denies any chest pain or shortness of breath, states he feels well currently. ~Denies problems with sedation in the past. ? ? PAST MEDICAL HISTORY PAST MEDICAL HISTORY Diagnosis Date ? AAA (abdominal aortic aneurysm) (HCC) 02/06/2012 ? 01/10/17: ~CT abd 4.8 cm ? Benign hypertension 07/13/2015 ? Bruit ? ? right carotid artery ? Esophageal reflux ? ? Gastroesophageal reflux ? Facet arthritis of lumbar region (HCC) 06/27/2014 ? Hypertrophy of prostate without urinary obstruction and other lower urinary tract symptoms (LUTS) ? ? Hypertrophy of the prostate w/o obstruction ? Mixed hyperlipidemia ? ? Hyperlipidemia ? Nodule of right lung 04/17/2012 ? Other specified disorder of gallbladder 09/07/07 ? Personal history of colonic polyps ? ? Pulmonary emphysema (HCC) 12/31/2016 ? Sebaceous cyst ? ? Situational depression 07/03/2016 ? Skin cancer ? ? Non-melanoma. ? Squamous cell carcinoma 04/04/2015 ? See scanned documents ? Venous insufficiency of both lower extremities 07/01/2014 ? ? PAST SURGICAL HISTORY PAST SURGICAL HISTORY Procedure Laterality Date ? COLONOSCOP W/ OR W/O BRSH SPEC ? 08/17/07 ? INT REPAIR SCALP,JAYCOB,TRUNK 7.6-12.5CM ? 02/24/07 ? back ? LAP CHOLECYSTECT/CHOLANGIOGRAPHY ? 09/07/07 ? MRI ? 02/22/2014 ? [facility] - mri - right knee ~ ? PAST SURGICAL HISTORY OF N/A 09/09/2017 ? Abdominal aneurysm aortic repair ? REM LESION TRUNK,ARM,LEG > 4.0CM ? 02/24/07 ? back ? REM LESION TRUNK,ARM,LEG > 4.0CM ? ? ? REMV THIGH/KNEE TUMOR,SUBCUTANEOUS ? ? ? REMOVED FATTY TUMORS FROM UNDER ? REMV THIGH/KNEE TUMOR,SUBCUTANEOUS ? ? ? RMOVED FATTY TUMORE ? SURGERY (GENERAL SURGERY) CONSULT ? 04/25/2015 ? Invasive squamous cell carcincoma see scanned documents ? ? CURRENT MEDICATIONS ? Current Outpatient Prescriptions: amLODIPine (NORVASC) 5 mg tablet Take 5 mg by mouth once daily. carvedilol (COREG) 3.125 mg tablet Take 1 tablet by mouth twice daily. omeprazole (PRILOSEC) 20 mg capsule Take 1 capsule by mouth every morning. tamsulosin ER (FLOMAX) 0.4 mg cp24 Take 1 capsule by mouth once daily. FLUoxetine (PROZAC) 20 mg capsule Take 1 capsule by mouth once daily. brimonidine (ALPHAGAN) 0.2 % ophthalmic solution Use 1 Drop in both eyes twice daily. cholecalciferol (VITAMIN D3) 1,000 unit tab tablet Take 1,000 Units by mouth once daily. timolol maleate (TIMOPTIC) 0.5 % ophthalmic solution Use 1 Drop in both eyes twice daily. finasteride (PROSCAR) 5 mg tablet Take 1 tablet by mouth once daily. aspirin, enteric coated (ECOTRIN LOW STRENGTH) 81 mg EC tablet Take 1 tablet by mouth once daily. ? No current facility-administered medications for this visit. ? ALLERGIES: Lipitor [Atorvastatin Calcium]; Medical Tape [Other]; Rosuvastatin Calcium ? PERSONAL HISTORY: SOCIAL HISTORY Social History ~~Marital status: ~~~~~~~~~~~~Spouse name: ~~~~~~~~~~~~~~~~~~ ~~Years of education: ~~~~~~~~~~~~~~~~Number of children: ~~~~~~~~~~ ? 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 Social History Main Topics ~~Smoking status: Former Smoker ~~~~~~~~~~~~~~~~~~~~~~~~~~~~~~~~~~~~~~~~~~~~~~~~ ~~~~~~~~ ~~~~~Packs/day: 1.00 ~~~~~Years: 30.00 ~~ ~~~~~Types: Cigarettes ~~~~~Quit date: 06/02/1988 ~~Smokeless tobacco: Current User ~~~~~~~~~~~~~~~~~ ~~~~~Types: Chew ~~Comment: Brief relaps after of spouse. ~~Alcohol use: Yes ~~~~~~~~ ~~~~~Comment: Seldom ~~Drug use: No ~~~~~~~~~ ? FAMILY HISTORY: FAMILY HISTORY FAMILY HISTORY Problem Relation Age of Onset ? Emphysema Mother ? ? Arthritis Sister ? ? Hypertension Maternal Grandmother ? ? REVIEW OF SYMPTOMS: ~~The review of systems data was entered by the nurse and reviewed by me ? Nursing Notes: Berta Nicholas RN ~11/28/2017 ~1:24 PM ~Signed REVIEW OF SYSTEMS: ~~~~~General:~~~The patient denies fatigue, denies weight loss, denies weight gain, denies feeling hot, and denies feelings of cold. ~~~~~Eyes: ~The patient NOTES glaucoma, denies eye injury/surgery, wears glasses or contacts. ~~~~~Ear/Nose/Throat: ~The patient denies allergies, denies hayfever, denies ear infections, and denies bloody noses. ~~~~~Cardiovascular: ~The patient denies chest pain, denies heart disease, NOTES high blood pressure,denies cardiac stent, denies prior heart attack, denies irregular heart beat, NOTES high cholesterol, ~denies poor circulation, denies heart failure, other cardiac issues, denies claudication, denies cold feet, denies peripheral arterial stent. ~~~~~Respiratory: ~The patient denies tuberculosis, denies pneumonia, denies frequent cough, denies pulmonary embolism, denies shortness of breath, and denies coughing up blood. ~~~~~Gastrointestinal: ~The patient denies difficulty swallowing, NOTES acid reflux, denies ulcers, denies vomiting, denies jaundice/hepatitis, denies gallbladder problems, denies black or tarry stools, denies hemorrhoids, denies bleeding from rectum, denies diverticulitis, denies constipation, denies diarrhea, denies loss of stool control, and denies hernias. ~~~~~Kidney/Bladder: ~The patient denies kidney stones, denies urine infections , and denies bloody urine. ~~~~~Skin: ~The patient notes a history of skin cancer, denies bleeding/ changing moles, and denies a history of skin rash. ~~~~~Neurologic: ~The patient denies a history of epilepsy/convulsions, denies headaches, denies head/spinal injuries, and denies stroke/TIA. ~~~~~Psychiatric: ~The patient denies psychiatric medications, notes depression , and denies voices, denies substance abuse. ~~~~~Endocrine: ~The patient denies thyroid disorders, denies diabetes, and denies hormonal problems. ~~~~~Hematologic: ~The patient denies a history of bruising, denies bleeding, and denies anemia, denies blood clots. ~~~~~Infections: ~The patient denies a history of measles and mumps, denies rheumatic fever, and denies sexually transmitted diseases. ~~~~~Musculoskeletal: ~The patient denies back pain/injury, denies back problems , denies sciatica, denies knee/foot trouble, denies arthritis, or denies gout. ? ? When was patient's last Mammogram screening? N/A ? ~Last Colonoscopy: ~2007 ? Berta Nicholas RN~ .confimedit ? ~ PHYSICAL EXAMINATION: ? General: ~The patient is 72 year old male, well nourished, well hydrated in no acute distress. ~The patient is oriented to time, place, and person. ? VITALS: Blood pressure 122/84, pulse 76, temperature 37 ?C (98.6 ?F), weight 116.1 kg (256 lb).~Body mass index is 33.78 kg/m?.~ ? HEENT: ~Normal cephalic, ataumatic, pupils are equally round, sclera are anicteric, mucous membranes are moist, oropharynx is clear. ~Neck has no masses , asymmetry or lymphadenopathy. ~ Respiratory: ~Clear to auscultation and percussion. ~Normal respiratory excursion and pattern. ? Cardiac: ~Examination is regular rate and rhythm. ? Abdominal exam: ~Soft, nontender, ~with no palpable masses. ~No hepatosplenomegaly. ~No palpable hernias. ? Rectal exam: exam deferred ? Extremities: ~no clubbing, cyanosis or edema. ~No adenopathy. ? Other: ? LABORATORY VALUES: As Noted ? RADIOLOGIC STUDIES: ~As Noted ? Assessment ~ IMPRESSION: encounter for screening colonoscopy. ~History of AAA repair in 2017 ? PLAN: ~We will plan for colonoscopy with MAC in November.~~We discussed the risks and benefits of the planned endoscopy. ~I have informed the patient that complications can occur including failure to complete the endoscopy and perforation. ~The patient had the opportunity to ask questions concerning the planned endoscopy. ~My staff has also explained the procedure to the patient in understandable terms and has given the patient printed material concerning the procedure. ~The patient freely consents to surgery. ? I plan to use golytely bowel preparation for endoscopy ? The patient has medical comorbidities for which I plan to perform the procedure under monitored anesthetic care. ? Diagnoses: (Z12.11) Screen for colon cancer ~(primary encounter diagnosis) ? My findings have been communicated to Dr. Berg~via shared medical record. ~ This note will be forwarded to Dr. Osbaldo Berg III MD. ~~ Return to Clinic: The patient is instructed to follow-up with me 1 week post operatively. ? ? Berta Aggarwal PA-C
[2017-12-29 12:31] VITALS: BP 154/71; PULSE 57; RESP 16; TEMP 36.9; O2SAT 98; BMI 33.5
--- NOTE | 2017-12-29 13:15 | COLBX_PTH ---
PATIENT: VICKI RANDLE LOC: EN U#:[id number] AGE/SX: 72/M ROOM: RE12/29/[address]: Dr. Adonis De Oliveira MD : 1945 BED: DIS: 12/29/2017 SPEC #: [id number] RECD: 12/29/17 14:20 STATUS: MALISSA RELee #: [id number] MARISELA: 12/29/17 13:[address]: Adonis De Oliveira DEPT: SURGICAL PATHOLOGY RECD BY: Justin Devi ENTERED: 12/30/17 07:36 SP TYPE: COLON BX OT DR: Dr. Osbaldo Berg III, MD Tissues: COLON BIOPSY Procedures: Surgery Specimen Level IV HEADER OPERATION: Colonoscopy (MAC) PRE-OP DIAGNOSIS: Screening TISSUE SUBMITTED: 20 cm polyp MICROSCOPIC DIAGNOSIS Colon, 20 cm polyp, polypectomy: Tubular adenoma. SJ:nguyễn 12/31/17 MICROSCOPIC DESCRIPTION Slides are reviewed. GROSS DESCRIPTION Received in fixative is one container labeled with the patient's name and designated 20 cm polyp. The specimen consists of a piece of barkley-pink polyp measuring 0.7 x 0.5 x 0.5 cm. The entire specimen is submitted in one cassette. / SJ:nguyễn 12/30/17 TC:1 CPT: 22337
[2017-12-29 13:46] VITALS: BP 102/69; BP 154/71; PULSE 56; RESP 18; TEMP 36.3; O2SAT 99
--- NOTE | 2017-12-29 13:47 | OP.PCM_ITS ---
Report of Operation Date of Procedure: 12/29/17 Pre-Operative Diagnosis: screening for colon cancer Post-Operative Diagnosis: few diverticula, polyp at 20cm Surgery/Procedure Performed:: colonoscopy with snare polypectomy Type of Anesthesia:: MAC Anesthesiologist: Kevin Peoples - ASA3 Specimen's removed: polyp at 20cm Description of Procedure: The patient was brought to the endoscopy suite. Sign in was performed verifying patient, site, planned procedure, critical nursing information, the patient was monitored with cardiac, pulse oximetric, and blood pressure monitoring devices. Monitored anesthetic care was provided for sedation. Following IV sedation, the patient was positioned for colonoscopy. A digital rectal exam was performed which revealed no palpable abnormalities The video colonoscope was inserted and advanced to the cecum as verified by the ileocecal valve, cecal base anatomic features and palpation. the cecum, ascending colon, hepatic flexure, transverse colon, splenic flexure and descending colon all around unremarkable. The patient had few small to moderate -sized diverticula in the sigmoid colon. In the distal sigmoid colon at 20 cm, there was a pedunculated polyp. This is removed via hot snare polypectomy. This was sent for pathology. The remainder of the rectosigmoid was unremarkable. The scope was retroflexed and the anal verge appeared unremarkable. The patient tolerated the procedure well and was brought to recovery in stable condition. the patient's follow-up with my physician's licensed nursing assistant Berta Aggarwal in one week for pathology results.
[2017-12-29 13:50] VITALS: BP 116/76; BP 154/71; PULSE 58; RESP 18; O2SAT 99
[2017-12-29 13:55] VITALS: BP 119/71; BP 154/71; PULSE 58; RESP 18; O2SAT 98
[2017-12-29 14:03] VITALS: BP 124/81; BP 154/71; PULSE 60; RESP 18; TEMP 37.1; O2SAT 100
[2017-12-29 14:30] VITALS: BP 154/71
== END 2017-12-29 14:40 | disposition home or self-care (01) ==
LOC: EN 11:50 → AC 11:52
PROVIDERS: Family Provider Family Medicine; PCP Family Medicine; Visit Provider Surgery
PROC: 0DJD8ZZ Inspection of Lower Intestinal Tract, Via Natural or Artificial Opening Endoscopic (ICD-10-PCS; CPT 45378; principal; 2017-12-29 13:10)
DX: Z12.11 Encounter for screening for malignant neoplasm of colon (principal); D12.4 Benign neoplasm of descending colon; K21.9 Gastro-esophageal reflux disease without esophagitis; Z86.010 Personal history of colon polyps; I10 Essential (primary) hypertension; N40.0 Benign prostatic hyperplasia without lower urinary tract symptoms; J43.9 Emphysema, unspecified; E78.2 Mixed hyperlipidemia; F43.21 Adjustment disorder with depressed mood; F17.220 Nicotine dependence, chewing tobacco, uncomplicated; Z86.79 Personal history of other diseases of the circulatory system; Z85.828 Personal history of other malignant neoplasm of skin; Z79.899 Other long term (current) drug therapy
CPT/HCPCS: 45385; 88305; J7120

== ENCOUNTER 2018-02-19 18:48 | Emergency (ER) | payer MEDICARE, SELFPAY ==
[2018-02-19 18:48] VITALS: BP 123/84; PULSE 78; RESP 16; TEMP 36.8; O2SAT 93; BMI 34.2
--- NOTE | 2018-02-19 19:31 | US_ITS ---
STUDY: VENOUS DOPPLER ULTRASOUND - BILATERAL LOWER EXTREMITIES REASON FOR EXAM: Male, 72 years old. TECHNIQUE: Ultrasound evaluation of the deep vein system to include guy-scale imaging and compression was performed. Guy-scale imaging and Doppler sonographic evaluation, including duplex spectral analysis and qualitative color flow sonography, was performed. COMPARISON: None. FINDINGS: Left leg Common Femoral Vein: Diminished compressibility and intraluminal echoes consistent with clot Common Femoral Vein/Greater Saphenous Junction: Diminished compressibility and internal echoes consistent with thrombus. Deep Femoral Vein: Normal compression, spontaneity and augmentation. Normal color Doppler. Femoral Proximal: Normal compression, spontaneity and augmentation. Normal color Doppler. Femoral Middle: Normal compression, spontaneity and augmentation. Normal color Doppler. Femoral Distal: Normal compression, spontaneity and augmentation. Normal color Doppler. Popliteal Vein: Normal compression, spontaneity and augmentation. Normal color Doppler. Posterior Tibial Vein: Normal compression, spontaneity and augmentation. Normal color Doppler. Peroneal Vein: Normal compression, spontaneity and augmentation. Normal color Doppler. Right leg Common Femoral Vein: Normal compression, spontaneity and augmentation. Normal color Doppler. Common Femoral Vein/Greater Saphenous Junction: Normal compression, spontaneity and augmentation. Normal color Doppler. Deep Femoral Vein: Normal compression, spontaneity and augmentation. Normal color Doppler. Femoral Proximal: Normal compression, spontaneity and augmentation. Normal color Doppler. Femoral Middle: Normal compression, spontaneity and augmentation. Normal color Doppler. Femoral Distal: Normal compression, spontaneity and augmentation. Normal color Doppler. Popliteal Vein: Normal compression, spontaneity and augmentation. Normal color Doppler. Posterior Tibial Vein: Normal compression, spontaneity and augmentation. Normal color Doppler. Peroneal Vein: Normal compression, spontaneity and augmentation. Normal color Doppler. US/Venous Duplex Imag/Dano Extrem IMPRESSION: Deep venous thrombosis of the left common femoral vein extending into the greater saphenous vein. Electronically Signed: Mookie Macario MD at 20:37 EDT , Service support ,
--- NOTE | 2018-02-19 21:11 | ED.VISSUMM ---
- ER Visit Summary Date of Service: 02/19/18 Chief Complaint: Left leg pain History of Present Illness: The patient is a 72 M presenting for evaluation secondary to progressive left leg pain. Patient reports that he has not had any sort of trauma but he has been developing pain and redness spreading up the medial portion of his left leg going up into his. He states that he does not have any history DVT or PE, no recent history of travel, no history of immobilization or hypercoagulability. Denies any chest pain shortness of breath or fevers. Review of systems otherwise negative. Physical Examination: Vital signs are within normal limits pulse ox 93%. Lower extremity exam shows the patient to have erythema swelling and palpable cord going from just distal to the knee all the way up the medial portion of the leg into the groin. There is no palpable crepitus. Normal range of motion of the hip knee ankle and foot normal distal pulses. Test Results: Duplex ultrasound demonstrates a saphenous vein clot that does extend all the way into the deep system Emergency Department Course and Treatment: Patient presented for evaluation secondary to pain and swelling in his left leg. Duplex ultrasound shows evidence of a DVT. I had a discussion with the patient about risks and benefits of anticoagulants, and he is in agreement on taking these at this time. I informed the patient that if he develops any sort of chest pain or shortness of breath he needs to immediately return to the emergency department. Patient will be started on a course of Eliquis. I did discuss patient's case with covering physician for the patient's primary care doctor, who agrees to get patient in for acute follow-up. Patient was discharged. Disposition: Discharge Impression: 1. Left leg DVT 2. Initiation of anticoagulation This note was generated with [employer] Star dictation software. It may contain incorrect words, spelling, and punctuation that were not noted in review of the chart prior to signing ED Disposition - Plan for ED Patient: Disposition: Home or Assisted Living Chief Complaint: Lower Extremity Injury Diagnosis: DVT (deep venous thrombosis) Instructions: Apixaban Oral tablet, ED DVT Prescriptions: Apixaban [Eliquis] 5 mg PO BID #74 tab Referrals: Osbaldo Berg III, MD [Primary Care Provider] - As soon as possible
[2018-02-19 21:38] VITALS: BP 138/72; PULSE 61; RESP 14; O2SAT 97
[2018-02-19] MEDS: APIXABAN 5 MG TABLET 10 MG PO (21:41)
== END 2018-02-19 21:46 | disposition home or self-care (01) ==
PROVIDERS: Emergency Provider Emergency Medicine; Family Provider Family Medicine; PCP Family Medicine
DX: I82.412 Acute embolism and thrombosis of left femoral vein (principal); I82.812 Embolism and thrombosis of superficial veins of left lower extremity; I10 Essential (primary) hypertension; Z79.899 Other long term (current) drug therapy
CPT/HCPCS: 93970; 99282

== ENCOUNTER 2018-04-28 06:15 | Day surgery (SDC) | payer MEDICARE, SELFPAY ==
--- NOTE | 2018-04-27 23:21 | PCM.HP.BLA ---
History and Physical Date of Admission: 04/28/18 HISTORY OF PRESENT ILLNESS Comes in today for evaluation for TBSE. He has noticed enlarging lesions on his left cheek, dorsum right hand by index finger, left outer proximal arm, left postauricular area by earlobe, left postauricular area near occipital hairline, and proximal nasal dorsum by nasal root. These lesions have increased in size over the last several months and have developed some crustiness. He denies any trauma. He denies any fever. He has used Aldara in the past with success. He states he recently had surgery for a AAA repair by Dr. Berg. He had used Aldara recently for the lesions on his superior helical rim right ear, base of right thumb, dorsum left hand by first web space, and dorsal distal left forearm. He tolerated it well. 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 Atypical squamous lesion left preauricular area Inflamed actinic keratosis dorsum left hand by ring finger Actinic keratosis with moderate to focal severe atypia left medial arm Actinic keratosis nasal dorsum Actinic keratosis with focal moderate to severe atypia right posterior ear Solar keratosis dorsum right hand by first web space Inflamed actinic keratosis right volar forearm Solar keratosis left lateral forehead Solar keratosis right lateral forehead by eyebrow Solar keratosis left distal dorsal forearm Solar keratosis left distal radial forearm Actinic damage left distal dorsal forearm Actinic damage left distal dorsal radial forearm Actinic damage dorsum bilateral hands Actinic damage right dorsal radial wrist near the base of the thumb Actinic damage right dorsal radial midforearm Solar keratosis mid dorsal right forearm Squamous cell carcinoma in situ and solar keratosis distal dorsal right forearm Actinic lesion with severe atypia dorsal right hand by the base of the thumb Squamous cell carcinoma in situ with solar keratosis dorsum left hand by base of thumb Squamous cell carcinoma in situ left lower back Seborrheic keratosis left upper back Actinic lesion left nasal tip Actinic lesion with severe atypia middle helical rim left ear Actinic lesion with moderate atypia dorsum right hand distally and by the long finger Actinic lesions cluster ?2 with moderate atypia dorsum left hand proximally by long finger 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 Actinic keratosis with severe atypia left arm Basal cell carcinoma right posterior auricular area, anterior Squamous cell carcinoma dorsal aspect mid right forearm Actinic keratosis with moderate to severe atypia right postauricular area, posterior Actinic keratosis with focal squamous cell carcinoma in situ dorsum right hand by ring finger Actinic keratosis with severe atypia dorsum left hand by first webspace Actinic keratosis with severe atypia dorsal radial distal left forearm by rest Actinic keratosis left upper neck, upper Actinic keratosis with moderate to severe atypia left lateral neck, lower actinic keratosis with moderate atypia left posterior arm PAST SURGICAL HISTORY: Excision of skin cancer face and hands Carpal tunnel surgery bilaterally Cholecystectomy Knee surgery ?5 Cataract surgery Excision 11 mm basal cell carcinoma left dorsal mid forearm with rhomboid transposition skin flap reconstruction and excision 12 mm squamous cell carcinoma right dorsal mid forearm with full-thickness skin graft reconstruction from proximal right forearm (10 cm?'s) on November 07, 2010 Excision 7 mm atypical squamous lesion left preauricular area with 25 mm delayed closure and intradermal excision 1 cm actinic lesion superior helical rim left ear and intradermal excision 7 mm echogenic lesion right posterior ear and intradermal excision 7 mm actinic lesion nasal dorsum and intradermal excision 5 mm lesion dorsum left hand and intradermal excision 5 mm lytic lesion left medial arm and intradermal excision 6 mm lesion right volar forearm on May 10, 2011 Intradermal excision 1 cm lesion dorsum right hand by the index finger and intradermal excision 5 mm lesion dorsum right hand first webspace and intradermal excision 5 mm lesion dorsum left hand by first webspace and intradermal excision 5 mm lesion left distal radial forearm and intradermal excision 5 mm lesion left distal dorsal forearm and intradermal excision 6 mm lesion right lateral forehead by the lateral eyebrow and intradermal excision 5 mm lesion left lateral forehead on August 22, 2011 Excision 1 cm lesion left upper back with 3 cm layered closure and excision 2.1 cm lesion left lower back 6.5 cm layered closure and intradermal excision 1 cm squamous cell carcinoma in situ distal dorsal right forearm and intradermal excision 6 mm squamous cell carcinoma in situ dorsum right hand by the base of thumb and intradermal excision 6 mm squamous cell carcinoma in situ dorsum left hand by base of thumb on November 19, 2012 Excision 6 mm squamous cell carcinoma in situ superior helical rim left ear with helical rim advancement skin flap reconstruction and intradermal excision 5 mm actinic lesion with severe atypia middle helical rim left ear and and intradermal excision 6 mm actinic lesion with severe atypia dorsal base right thumb and intradermal excision 6 mm actinic lesion with moderate atypia dorsum right hand distally by the long finger and intradermal excision 6 mm actinic lesion cluster ?3 with moderate atypia dorsum left hand proximally by the long finger on November 25, 2013 Excision 10 mm 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 and first stage complex left ear reconstruction with left postauricular advancement skin flap reconstruction and placement of cartilage graft from right ear and excision 7 mm actinic keratosis with severe atypia left arm with 5 cm layered closure on April 04, 2015 Second stage complex left ear reconstruction with division and inset of postauricular skin flap and reconstruction left postauricular donor site wound with advancement skin flap on April 25, 2015 Intradermal excision 7 mm actinic keratosis left lateral neck, lower, and intradermal excision 2.3 cm actinic keratosis left lateral neck, upper, and intradermal excision 5 mm actinic keratosis dorsum right hand by ring finger and intradermal excision 10 mm actinic keratosis dorsum left hand by first webspace and intradermal excision 8 mm actinic keratosis dorsal radial distal left forearm by wrist and excision 15 mm squamous cell carcinoma dorsal aspect mid right forearm with rhomboid transposition skin flap reconstruction protheses 14.5 cm?) and intradermal excision 8 mm actinic keratosis left posterior arm and excision 1 cm basal cell carcinoma right postauricular area, anterior, with rhomboid transposition skin flap reconstruction and intradermal excision 6 mm actinic keratosis right postauricular area, posterior on March 19, 2016 MEDICATIONS: Aspirin Zetia Omeprazole Flomax Lisinopril Aldara ALLERGIES: Adhesive tape FAMILY HISTORY: Negative for skin cancer, negative for bleeding disorders, and positive for diabetes SOCIAL HISTORY: Patient is a former smoker. Sometimes he starts up again but he has recently quit. He chews tobacco now. Patient does not drink alcohol. REVIEW OF SYSTEMS General-denies fever, fatigue, and weight loss. Eyes-denies eye pain. His cataracts. Denies glaucoma. ENT-denies nasal congestion sore throat. Cardiovascular-denies chest pain, fatigue, lightheadedness, and shortness of breath with exertion. Respiratory-complains of shortness of breath. Denies cough. Patient has a history of smoking and has quit. Chews tobacco now. Gastrointestinal-denies nausea, vomiting, diarrhea, and constipation. Genitourinary-complains of urinary frequency. Denies hematuria. Has prostate enlargement. Musculoskeletal-denies back pain, stiffness, muscle weakness, or arthritis. Had bilateral carpal tunnel surgery. Had knee surgeries ?5. Skin-he has enlarging lesions on his left cheek, dorsum right hand by index finger, left outer proximal arm, left postauricular area by earlobe, left postauricular area near occipital hairline, and proximal nasal dorsum by the nasal root. He has had multiple skin cancers removed in the past and multiple actinic lesions removed in the past. He had used Aldara recently on the lesions on his superior helical rim right ear, base right thumb, dorsum left hand by first web space, dorsal distal left forearm without problem. Neuro-denies poor balance, headaches, or weakness. Psych-denies anxiety depression. Endocrine-denies excessive thirst or urination. Hematologic-denies abnormal bruising and bleeding. PHYSICAL EXAMINATION General - Alert and oriented. HEENT -pupils equal round and reactive to light. Extraocular muscles intact. Throat is clear. On his left ear the flap on the middle helical rim is healing satisfactory with good contour. On the superior helical rim right ear was a lesion that was treated with Aldara that is smooth and appears healed at this time. On his left cheek is a 6 mm lesion that is slightly raised in configuration. Has some crustiness. Has irregular borders. No ulceration. Lesion is nontender. On the proximal nasal dorsum near the nasal root is a 6 mm lesion that is scabby. Has irregular borders. No ulceration. Lesion is nontender. On the left postauricular area by the earlobe is a 1 cm lesion that is crusty. Has irregular borders. No ulceration. Lesion is nontender. There is a mobile soft tissue mass adjacent to this crusty lesion that measures 1.5 cm. On the left postauricular area near the occipital hairline is a 6 mm lesion that is scabby. Has irregular borders. No ulceration. Lesion is nontender. Neck-no cervical adenopathy. No masses. No suspicious lesions noted. Chest wall-No suspicious lesions noted Lungs-Clear to auscultation. Heart-regular rate and rhythm. Abdomen-soft and nondistended. No suspicious lesions noted. Back-no suspicious lesions noted. Extremities-no clubbing cyanosis or edema with full range of motion of all joints. On the dorsum right hand by index finger is a 2.1 cm lesion that is slightly raised in configuration. Has some crustiness. Has irregular borders. No ulceration. Lesion is nontender. On the base of his right thumb was a lesion that has been treated with Aldara and is smooth and appears healed at this time. On the dorsum left hand by first webspace was a lesion that has been treated with Aldara and is smooth and appears healed at this time. On the dorsal distal left forearm was a lesion that has been treated with Aldara and is smooth and appears healed at this time. On the left outer proximal arm is a 6 mm lesion that is crusty and slightly raised in configuration. Has irregular borders. No ulceration. Lesion is nontender. No axillary adenopathy. Radial pulses are palpable. Neuro--cranial nerves II through XII grossly intact. ASSESSMENT 1. 2.1 cm lesion dorsum right hand by index finger. 2. 6 mm lesion left cheek. 3. 6 mm lesion left outer proximal arm. 4. 1 cm lesion left postauricular area by earlobe. 5. 6 mm lesion left postauricular area near occipital hairline. 6. 6 mm lesion proximal nasal dorsum near the nasal root. 7. Lesion superior helical rim right ear, appears healed after Aldara. 8. Lesion base right thumb, appears healed after Aldara. 9. Lesion dorsum left hand by first webspace, appears healed after Aldara. 10. Lesion dorsal distal left forearm, appears healed after Aldara. 11. Personal history of skin cancer. 12. Former smoker. PLAN We will write another prescription for Aldara that he will use on these lesions because of his history of skin cancer and actinic lesions. Some of these lesions may be actinic in nature and would benefit from the use of Aldara. The lesions that remain after using Aldara will need excision. Will send the lesions to Pathology for analysis to rule out carcinoma. Reconstruction will be with possible skin grafts or skin flaps. Surgery will be done on an outpatient basis under local anesthesia and IV sedation. He understands how to use the Aldara since he has used it in the past. Since he just had AAA repair, he wants to wait on surgery until April. Patient was informed of the risks and complications of the procedure including alternatives to surgery. These were discussed with the patient personally. Patient voices understanding and wishes to proceed. Some of the risks and complications were included in a form from the [employer] [place] [employer].
--- NOTE | 2018-04-28 | LES_PTH ---
PATIENT: VICKI RANDLE LOC: [facility] – [place] U#:[id number] AGE/SX: 72/M ROOM: RE04/28/[address]: Dr. Francis Dudley MD : 1945 BED: DIS: 04/28/2018 SPEC #: [id number] RECD: 04/28/18 09:01 STATUS: MALISSA SEVERIANO #: [id number] MARISELA: 04/28/18 00:[address]: Francis Dudley DEPT: SURGICAL PATHOLOGY RECD BY: Abimbola Pitt ENTERED: 04/28/18 09:41 SP TYPE: Lesion OTHR DR: Dr. Osbaldo Berg III, MD Tissues: A - Skin of hand and finger, NOS B - Skin of external ear, NOS C - Skin of external ear, NOS D - Skin of arm E - Skin of wrist and hand F - Skin of hand and finger, NOS G - Skin of external ear, NOS H - Skin of external ear, NOS Procedures: Frozen Section (charge) Surgery Specimen Level IV HEADER OPERATION: Excision lesion dorsum right hand by index finger with frozen PRE-OP DIAGNOSIS: 2.1 cm lesion dorsum, right hand by index finger; 6 mm lesion left cheek; 6 mm lesion left outer proximal arm; 1 cm lesion left postauricular area by earlobe; 6 mm lesion left proximal nasal dorsum near nasal root; personal history skin cancer TISSUE SUBMITTED: A - 2.1 cm lesion dorsum right hand by index finger sent for FS at 0856, B - 1 cm lesion left postauricular area by earlobe sent for FS at 0856, C - 6 mm lesion left postauricular area near occipital hairline sent for FS at 0858, D - Lesion left distal outer arm, suture at 12 o'clock, E - Lesion dorsal radial right wrist, F - Squamous cell carcinoma lesion dorsum right hand by index finger, suture at 12 o'clock, G - Actinic keratosis moderate atypia left postauricular area by earlobe, suture at 12 o'clock, H - Actinic keratosis moderate atypia left postauricular area near occipital hairline, suture at 12 o'clock FROZEN SECTION DIAGNOSIS A. 2.1 cm lesion, dorsum right hand by index finger, biopsy: Squamous cell carcinoma in situ, suspicious for invasive carcinoma. B. 1 cm lesion, left posterior auricular area by earlobe, shave biopsy: Actinic keratosis with moderate atypia. C. 6 cm lesion, left posterior auricular area near occipital hairline, shave biopsy: Actinic keratosis with mild to moderate atypia. SJ:nguyễn 04/28/18 Case has been reviewed in consultation with Dr. Mckeon who concurs with the above diagnosis. IDC:AM MICROSCOPIC DIAGNOSIS A. 2.1 cm lesion, dorsum right hand by index finger, shave biopsy: Invasive well differentiated squamous cell carcinoma, keratoacanthoma type. B. 1 cm lesion, left posterior auricular area by earlobe, shave biopsy: Inflamed actinic keratosis with moderate atypia. Solar elastosis. C. 6 cm lesion, left posterior auricular area near occipital hairline, shave biopsy: Actinic keratosis with mild atypia. Solar elastosis. D. Lesion, left distal outer arm, excisional biopsy: Actinic keratosis with mild atypia. Solar elastosis. E. Lesion, dorsal radial right wrist, shave biopsy: Inflamed actinic keratosis with mild to moderate atypia and solar elastosis. F. Squamous cell carcinoma lesion, dorsal right hand by index finger, excisional biopsy: Invasive well differentiated squamous cell carcinoma, completely excised. Perineural invasion is not seen. Actinic keratosis and solar elastosis. Focal ulceration, consistent with site of specimen A. G. Actinic keratosis, moderate atypia, left postauricular area by earlobe, excisional biopsy: Actinic keratosis with mild to moderate atypia. Solar elastosis. Focal ulceration, consistent with site of specimen B. H. Actinic keratosis, moderate atypia, left postauricular area near occipital hairline, excisional biopsy: Actinic keratosis with mild atypia. Solar elastosis. Focal ulceration, consistent with site of specimen C. SJ:nguyễn 04/29/18 COMMENT Case has been reviewed in consultation with Dr. Mckeon who concurs with the above diagnosis. IDC:AM MICROSCOPIC DESCRIPTION Slides are reviewed. GROSS DESCRIPTION A - Received fresh for frozen section diagnosis labeled with the patient's name is a specimen designated 2.1 cm lesion dorsum right hand by index finger. The specimen consists of a piece of barkley-white skin with underlying tissue measuring 2 x 1.5 x 0.5 cm. The skin surface is covered entirely by a nodular lesion. The specimen is inked, serially sectioned and submitted entirely for frozen section diagnosis in two cassettes. B - Received fresh for frozen section diagnosis labeled with the patient's name is a specimen designated 1 cm lesion left postauricular area by earlobe. The specimen consists of a shave biopsy of barkley-white skin measuring 1 x 0.5 x 0.1 cm. The specimen is bisected longitudinally and submitted entirely for frozen section diagnosis in one cassette. C - Received fresh for frozen section diagnosis labeled with the patient's name is a specimen designated 6 mm lesion left postauricular area near occipital hairline. The specimen consists of a shave biopsy of barkley-white skin measuring 1 x 0.5 x 0.5 cm. The specimen is bisected and submitted entirely for frozen section diagnosis in one cassette. D - Received is one container labeled with the patient's name is a specimen designated lesion left distal outer arm, suture at 12 o'clock. The specimen consists of a piece of barkley-white skin ellipse measuring 1.3 x 0.5 cm and up to 0.3 cm in thickness. The specimen is oriented by a suture at 12 o'clock tip. The specimen is inked as follows: 12 o'clock tip - yellow, 6 o'clock tip - green, 3 o'clock margin - black and 9 o'clock margin - blue. The entire specimen is submitted in one cassette. It will be serially sectioned at the time of embedding. E - Received is one container labeled with the patient's name is a specimen designated lesion dorsal radial right wrist. The specimen consists of a shave biopsy of barkley-white skin measuring 0.9 x 0.8 x 0.1 cm. The specimen is inked and submitted entirely in one cassette. It will be bisected at the time of embedding. F - Received is one container labeled with the patient's name is a specimen designated squamous cell carcinoma lesion dorsum right hand by index finger, suture at 12 o'clock. The specimen consists of a round piece of barkley-white skin measuring 3 x 3 x 0.3 cm. The specimen is oriented by a suture at 12 o'clock. The specimen is inked as follows: 12 to 3 o'clock - black, 3 to 6 o'clock - blue, 6 to 9 o'clock - green and 9 to 12 o'clock - yellow. A focal area of ulceration is noted at the surface consistent with site of specimen A. The specimen is serially sectioned and submitted entirely in four cassettes. Cassette 1 contains the 3 o'clock margin and cassette 4 contains the 9 o'clock margin. G - Received is one container labeled with the patient's name is a specimen designated actinic keratosis moderate atypia left postauricular area by earlobe, suture at 12 o'clock. The specimen consists of a william-shaped piece of barkley-white skin ellipse measuring 1.7 x 1.5 and up to 0.2 cm in thickness. The specimen is inked as follows: 12 to 3 o'clock - black, 3 to 6 o'clock - blue, 6 to 9 o'clock - green and 9 to 12 o'clock - yellow. A focal area of ulceration is noted consistent with site of specimen B. The specimen is serially sectioned and submitted entirely in one cassette. H - Received is one container labeled with the patient's name is a specimen designated actinic keratosis moderate atypia left postauricular near occipital hairline, suture at 12 o'clock. The specimen consists of a william-shaped piece of barkley-white skin ellipse measuring 1.5 x 1.7 x 0.3 cm. The specimen is inked as follows: 12 to 3 o'clock - black, 3 to 6 o'clock - blue, 6 to 9 o'clock - green and 9 to 12 o'clock - yellow. A focal area of ulceration is noted consistent with site of specimen C. The specimen is serially sectioned and submitted entirely in one cassette. / SJ:rg 04/28/18 TC:0 CPT: 05969 x8, [id number] x3
[2018-04-28 06:40] VITALS: BP 121/76; PULSE 60; RESP 16; TEMP 36.3; O2SAT 97; BMI 35.2
[2018-04-28] MEDS: Mupirocin Ointment 22gm Tube 1 APPLIC (11:00)
--- NOTE | 2018-04-28 11:09 | PCM.PN.BLA ---
Progress Note This morning the patient was examined after finishing Aldara. The lesions on his left cheek, proximal nasal dorsum near the nasal root, and left outer proximal arm appear smooth and healed at this time. Will observe these three areas for now. However the patient states he noticed a lesion on the dorsal radial aspect right wrist that has increased in size over the last couple of months with some scabbing as well. Measures 6 mm. Has irregular borders. No ulceration. Lesion is nontender. There is also a lesion on his left outer distal arm that has increased in size over the last couple of months with some scabbing. Measures 6 mm. Has irregular borders. No ulceration. Lesion is nontender. These two lesions will be excised today and sent to Pathology for analysis to rule out carcinoma. If carcinoma is present, then further excision will be done with skin flap or skin graft reconstruction. The remaining three lesions (dorsum right hand by index finger, left postauricular area by earlobe, and left postauricular area near occipital hairline) will also be excised today. Patient was informed of the risks and complications of the procedure including alternatives to surgery. These were discussed with the patient personally. Patient voices understanding and wishes to proceed.
--- NOTE | 2018-04-28 11:20 | PCM.IMDPSTOP ---
Immediate Post-Op Note Date of Procedure: 04/28/18 Primary Surgeon/Physician: Francis Dudley public speaking instructor: Wanda Borjas. public speaking instructor: Den Boyd. Pre-Operative Diagnosis: 1. 2.1 cm lesion dorsum right hand by index finger. 2. 1 cm lesion left postauricular area by earlobe. 3. 6 mm lesion left postauricular area near occipital hairline. 4. 6 mm lesion dorsal radial aspect right wrist. 5. 6 mm lesion left outer distal arm. 6. Personal history of skin cancer. 7. Former smoker. Post-Operative Diagnosis: 1. 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 2. 1 cm actinic keratosis with moderate atypia left postauricular area by earlobe. 3. 6 mm actinic keratosis with moderate atypia left postauricular area near occipital hairline. 4. 6 mm lesion dorsal radial aspect right wrist. 5. 6 mm lesion left outer distal arm. 6. Personal history of skin cancer. 7. Former smoker. Surgery/Procedure Performed:: 1. 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 2. Excision 1 cm actinic keratosis with moderate atypia left postauricular area by earlobe with rhomboid transposition skin flap reconstruction (6.5 cm2). 3. Excision 6 mm actinic keratosis with moderate atypia left postauricular area near occipital hairline with rhomboid transposition skin flap reconstruction (4 cm2). 4. Intradermal excision 6 mm lesion dorsal radial aspect right wrist. 5. Excision 6 mm lesion left outer distal arm with 2.5 cm layered closure. Description of Surgical Findings:: Comes in today for evaluation for TBSE. He has noticed enlarging lesions on his left cheek, dorsum right hand by index finger, left outer proximal arm, left postauricular area by earlobe, left postauricular area near occipital hairline, and proximal nasal dorsum by nasal root. These lesions have increased in size over the last several months and have developed some crustiness. He denies any trauma. He denies any fever. He has used Aldara in the past with success. He states he recently had surgery for a AAA repair by Dr. Cebul. He had used Aldara recently for the lesions on his superior helical rim right ear, base of right thumb, dorsum left hand by first web space, and dorsal distal left forearm. He tolerated it well. He had lesions dorsum right hand by index finger, left postauricular area by earlobe, and left postauricular area near occipital hairline excised and sent to Pathology as frozen sections. Frozen section showed a squamous cell carcinoma for the lesion dorsum right hand by index finger, and showed actinic keratosis with moderate atypia for the lesion left postauricular area by earlobe, and showed actinic keratosis with moderate atypia for the lesion left postauricular area near occipital hairline. 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 Frozen section left postauricular area by earlobe - actinic keratosis with moderate atypia. Frozen section left postauricular area near occipital hairline - actinic keratosis with moderate atypia. Estimated Blood Loss: 20 ml. Specimen's removed: 1. Lesion dorsum right hand by index finger to Pathology as a frozen section. 2. Lesion left postauricular area by earlobe to Pathology as a frozen section. 3. Lesion left postauricular area near occipital hairline to Pathology as a frozen section. 4. Lesion dorsal radial aspect right wrist to Pathology. 5. Lesion left outer distal arm to Pathology. 6. Squamous cell carcioma dorsum right hand by index finger to Pathology. 7. Actinic keratosis with moderate atypia left postauricular area by earlobe to Pathology. 8. Actinic keratosis with moderate atypia left postauricular area near occipital hairline to Pathology. Drains: None. Type of Anesthesia:: Local MAC - xylocaine with epinephrine and IV sedation. - Admit VTE Documentation VTE Present on Admission: No VTE Mechan Device Prophylaxis: SCD's VTE Pharm Prophylaxis ordered?: No
--- NOTE | 2018-04-28 11:20 | PCM.DC ---
You will use the following diet at home:: No restrictions Discharge Activity: May not drive while taking narcotic pain medications., May Shower - in two days. Place plastic bag over right hand when showering., - - keep head elevated. no heavy lifting. elevate right arm. May shower in (days): 2 - place plastic bag over right hand when showering. May resume sexual activity in: No Restrictions Weight Bearing Status: Weight bearing as tolerated Lifting Restrictions: 20 lbs. Keep extremity elevated above heart level: Right Arm, - - elevate head. Call your doctor if your incision/area has: Continuous Slow Oozing, Sudden Increased Bleeding, Increased Pain/ Swelling, Increased Redness, Foul Smelling Discharge, Swelling at the incision site Call your doctor if you observe: Fever of 101 or Higher, Coldness, Increased Pain, Shortness of breath, Chest pain, Calf discomfort, Uncontrolled pain Suture Line Care: - - apply antibiotic ointment to suture lines daily after left ear dressing and left arm dressing are removed in two days. Change Dressing in (Days):: 6 - will remove right hand dressing in office. Remove Dressing in (days):: 2 - left ear and left arm only. Cleanse incision/area with: - - may shower in two days. Wear plastic bag over right hand when showering. Allergies/Adverse Reactions: Allergies adhesive Adverse Reaction (Verified 02/19/18 18:50) Itching atorvastatin [From Lipitor] Adverse Reaction (Verified 02/19/18 18:50) Other rosuvastatin calcium [From Crestor] Adverse Reaction (Verified 02/19/18 18:50) ACHING Medications to take at Discharge Finasteride [Proscar] 5 mg PO DAILY 11/18/13 Omeprazole [Prilosec] 20 mg PO DAILY 11/18/13 Tamsulosin HCl [Flomax] 0.4 mg PO DAILY 11/18/13 Fluoxetine HCl [Prozac] 20 mg PO DAILY 12/27/16 brimonidine 0.2 % eye drops 1 drp OPHTHALMIC BID ml 08/05/17 timolol maleate 0.5 % eye drops 1 drp OPHTHALMIC BID 08/05/17 Imiquimod 1 applic TOPICAL 5XW 09/09/17 Carvedilol [Coreg (Beta Junito)] 3.125 mg PO BID #60 tab 09/10/17 Amlodipine [Norvasc] 10 mg PO QHS 04/21/18 Clindamycin HCl [Cleocin] 300 mg PO TID #21 cap 04/28/18 Lactobacillus Acidophilus/Fos [Acidophilus Probiotic Tablet] 1 ea PO BID #20 tab 04/28/18 Oxycodone HCl/Acetaminophen [Percocet 5/325] 1 tab PO 4X/DAY PRN PRN 7 Days #30 tab 04/28/18 The following prescriptions were given: Oxycodone HCl/Acetaminophen [Percocet 5/325] 1 tab PO 4X/DAY PRN PRN 7 Days #30 tab PRN Reason: Pain Lactobacillus Acidophilus/Fos [Acidophilus Probiotic Tablet] 1 ea PO BID #20 tab Clindamycin HCl [Cleocin] 300 mg PO TID #21 cap Primary Care Physician: Osbaldo Berg III, MD [Primary Care Provider] - Test Results: Test results from this visit will be discussed in further detail at your follow-up appointment, if applicable. Please Follow Up With: Francis Dudley MD When: friday05/04/18. call [phone] for appt. Proposed Discharge Date: 04/28/18
[2018-04-28 11:25] VITALS: BP 116/71; BP 121/76; PULSE 66; RESP 16; TEMP 36.7; O2SAT 95
[2018-04-28 11:30] VITALS: BP 114/66; BP 121/76; PULSE 61; RESP 16; O2SAT 93
[2018-04-28 11:35] VITALS: BP 109/68; BP 121/76; PULSE 63; RESP 16; O2SAT 93
[2018-04-28 11:40] VITALS: BP 114/69; BP 121/76; PULSE 60; RESP 16; TEMP 36.5; O2SAT 94
[2018-04-28 12:22] VITALS: BP 121/76
--- NOTE | 2018-04-28 21:10 | PCM.OPRPT ---
Report of Operation Date of Procedure: 04/28/18 Pre-Operative Diagnosis: 1. 2.1 cm lesion dorsum right hand by index finger. 2. 1 cm lesion left postauricular area by earlobe. 3. 6 mm lesion left postauricular area near occipital hairline. 4. 6 mm lesion dorsal radial aspect right wrist. 5. 6 mm lesion left outer distal arm. 6. Personal history of skin cancer. 7. Former smoker. Post-Operative Diagnosis: 1. 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 2. 1 cm actinic keratosis with moderate atypia left postauricular area by earlobe. 3. 6 mm actinic keratosis with moderate atypia left postauricular area near occipital hairline. 4. 6 mm lesion dorsal radial aspect right wrist. 5. 6 mm lesion left outer distal arm. 6. Personal history of skin cancer. 7. Former smoker. Surgery/Procedure Performed:: 1. 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 2. Excision 1 cm actinic keratosis with moderate atypia left postauricular area by earlobe with rhomboid transposition skin flap reconstruction (6.5 cm2). 3. Excision 6 mm actinic keratosis with moderate atypia left postauricular area near occipital hairline with rhomboid transposition skin flap reconstruction (4 cm2). 4. Intradermal excision 6 mm lesion dorsal radial aspect right wrist. 5. Excision 6 mm lesion left outer distal arm with 2.5 cm layered closure. Description of Surgical Findings:: Comes in today for evaluation for TBSE. He has noticed enlarging lesions on his dorsum right hand by index finger, dorsal radial aspect right wrist, left outer distal arm, left postauricular area by earlobe, and left postauricular area near occipital hairline. These lesions have increased in size over the last several months and have developed some crustiness. He denies any trauma. He denies any fever. He has used Aldara in the past with success. Surgical excision was recommended. Patient was informed of the risks and complications of the procedure including alternatives to surgery. These were discussed with the patient personally. Patient voices understanding and wishes to proceed. Some of the risks and complications were included in a form from the [employer]. 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 Frozen section left postauricular area by earlobe - actinic keratosis with moderate atypia. Frozen section left postauricular area near occipital hairline - actinic keratosis with moderate atypia. Size of skin graft dorsum right hand by index finger - 4.1 x 4.1 cm. lump roller: Wanda Borjas. lump roller: Den Boyd. Type of Anesthesia:: Local MAC - xylocaine with epinephrine and IV sedation. Specimen's removed: 1. Lesion dorsum right hand by index finger to Pathology as a frozen section. 2. Lesion left postauricular area by earlobe to Pathology as a frozen section. 3. Lesion left postauricular area near occipital hairline to Pathology as a frozen section. 4. Lesion dorsal radial aspect right wrist to Pathology. 5. Lesion left outer distal arm to Pathology. 6. Squamous cell carcioma dorsum right hand by index finger to Pathology. 7. Actinic keratosis with moderate atypia left postauricular area by earlobe to Pathology. 8. Actinic keratosis with moderate atypia left postauricular area near occipital hairline to Pathology. Drains: None. Estimated Blood Loss (mL): 20 ml. Description of Procedure: Patient was taken to OR in supine position and was given IV sedation. He was placed in the lateral position. The left ear, left neck, left arm, left flank, right hand and wrist were prepped and draped in the usual fashion. SCD's were placed for DVT prophylaxis. Perioperative antibiotics were given intravenously. The lesions (dorsum right hand by index finger, dorsal radial aspect right wrist, left postauricular area by earlobe, left postauricular area near occipital hairline, left outer distal arm, left flank area) were infiltrated with xylocaine and epinephrine. After waiting 5 minutes for the anesthetic to take effect, I excised the lesions on dorsum right hand by index finger, left postauricular area by earlobe, and left postauricular area near occipital hairline in an intradermal fashion and sent them to Pathology for analysis to rule out carcinoma. Frozen section showed the lesion on dorsum right hand by index finger was a squamous cell carcinoma, the lesion on left postauricular area by earlobe was an actinic keratosis with moderate atypia, and the lesion on left postauricular area near occipital hairline was an actinic keratosis with moderate atypia. These three lesions will be re-excised today. The lesion on the dorsal radial aspect right wrist looked clinically like an actinic lesion and was excised in an intradermal fashion and sent to Pathology for analysis to rule out carcinoma. Hemostasis was obtained with electrocautery. The lesion on the left outer distal arm looked clinically like an actinic lesion and was excised in an oblique elliptical fashion. A suture was marked at the 12 oclock position for pathology orientation and sent to pathology for analysis to rule out carcinoma. The lesion was excised with a 1 mm margin in all directions thus making it an 8 mm excision with a 2.5 cm layered closure. Hemostasis was obtained with electrocautery. The wound was closed in multiple layers with 4-0 Monocryl interrupted sutures for the deep dermis and subcutaneous tissue. The skin was approximated with 4-0 Prolene simple interrupted sutures. I then excised the squamous cell carcinoma on the dorsum right hand by index finger in a circular fashion with a 1 cm margin in all directions thus making it a 4.1 cm excision. A suture was placed at the 12 oclock position for pathology orientation and sent to pathology for analysis to rule out carcinoma at the margins. A FTSG was then harvested from the left flank. An ellipse of skin was excised in this area into the subcutaneous tissue. The subcutaneous tissue was removed from the undersurface of the dermis thus fashioning a full thickness skin graft. The skin graft was placed in saline. Some additional subcutaneous tissue was excised to aid in wound closure. Hemostasis was obtained with electrocautery. The donor incision was then closed in multiple layers with 2-0 Vicryl simple running suture for Elba's fascial layer. The deep dermis and subcutaneous tissue was approximated with 3-0 Monocryl interrupted sutures. The skin was approximated with 3-0 V lock unidirectional barbed running subcuticular suture. This was followed by Histoacryl skin tissue adhesive. Kerlix gauze dressing was then applied. The full thickness skin graft was then placed on the dorsum right hand wound and secured to the skin edges with 4-0 Chromic simple interrupted sutures. 4-0 Chromic sutures were used for central quilting stabilization. Antibiotic ointment was applied to the skin graft followed by xeroform gauze and cotton balls soaked in saline and secured to the skin with 3-0 Nylon tie over stent suture dressing. The size of the defect that was skin grafted was 4.1 x 4.1 cm or 16.8 cm2. The two lesions on the left postauricular area by earlobe and near occipital hairline were excised in rhomboid fashions into the subcutaneous tissue. Sutures were marked at the 12 oclock position for pathology orientation and sent to pathology for analysis to rule out carcinoma. These two lesions were excised with 4 mm margins. Both lesions were actinic keratoses with moderate atypia and will be excised with a necessary margin for the possibility of carcinoma being present on the final pathology report. Rhomboid flaps were designed adjacent to both wounds. Incisions were made and the flaps were elevated on a subcutaneous pedicle at the level of the underlying muscle. The rhomboid flaps were transposed into the defects with minimal tension and minimal distortion. Hemostasis was obtained with electrocautery. The size of the defects and the size of the flaps necessary to close these defects were 6.5 cm2 for the left postauricular area by earlobe lesion and 4 cm2 for the left postauricular area near occipital hairline. Both these wounds were then closed in a layered fashion after transposing the rhomboid flaps into the defects with 5-0 Monocryl interrupted sutures for the deep dermis and subcutaneous tissue. The skin was approximated with 5-0 Prolene simple interrupted sutures. Antibiotic ointment was applied followed by a gauze dressing. The incision on the left outer distal arm was dressed with antibiotic ointment followed by an Op-site dressing. The wound on the dorsal radial aspect right wrist was dressed with antibiotic ointment and xeroform gauze. Kerlix gauze was applied to the right hand and wrist followed by a compression shimon wrap. Patient tolerated the procedure well and was sent to PACU in satisfactory condition. Patient will be sent home on antibiotics and pain medication. Patient will keep his head elevate during the initial postoperative period. Patient will followup in a week for a wound check and takedown of the skin graft dressing and for discussion of the pathology report and for removal of the sutures. Grafts/Implants Used: None. - Complications None. - Admit VTE Documentation VTE Present on Admission: No VTE Mechan Device Prophylaxis: SCD's VTE Pharm Prophylaxis ordered?: No Code Visit Surgery Charges CPT - 76033 ICD-10 - C44.622, Z85.828, Z87.891 12992 C44.622, Z85.828, Z87.891 77487 L57.0, Z85.828, Z87.891 59119 L57.0, Z85.828, Z87.891 37431 D49.2, Z85.828, Z87.891 21449 D49.2, Z85.828, Z87.891 75420 D49.2, Z85.828, Z87.891
--- NOTE | 2018-04-29 16:11 | OP.PCM_ITS ---
Report of Operation Date of Procedure: 04/28/18 Pre-Operative Diagnosis: 1. 2.1 cm lesion dorsum right hand by index finger. 2. 1 cm lesion left postauricular area by earlobe. 3. 6 mm lesion left postauricular area near occipital hairline. 4. 6 mm lesion dorsal radial aspect right wrist. 5. 6 mm lesion left outer distal arm. 6. Personal history of skin cancer. 7. Former smoker. Post-Operative Diagnosis: 1. 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 2. 1 cm actinic keratosis with moderate atypia left postauricular area by earlobe. 3. 6 mm actinic keratosis with moderate atypia left postauricular area near occipital hairline. 4. 6 mm lesion dorsal radial aspect right wrist. 5. 6 mm lesion left outer distal arm. 6. Personal history of skin cancer. 7. Former smoker. Surgery/Procedure Performed:: 1. 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 2. Excision 1 cm actinic keratosis with moderate atypia left postauricular area by earlobe with rhomboid transposition skin flap reconstruction (6.5 cm2). 3. Excision 6 mm actinic keratosis with moderate atypia left postauricular area near occipital hairline with rhomboid transposition skin flap reconstruction (4 cm2). 4. Intradermal excision 6 mm lesion dorsal radial aspect right wrist. 5. Excision 6 mm lesion left outer distal arm with 2.5 cm layered closure. Description of Surgical Findings:: Comes in today for evaluation for TBSE. He has noticed enlarging lesions on his dorsum right hand by index finger, dorsal radial aspect right wrist, left outer distal arm, left postauricular area by earlobe, and left postauricular area near occipital hairline. These lesions have increased in size over the last several months and have developed some crustiness. He denies any trauma. He denies any fever. He has used Aldara in the past with success. Surgical excision was recommended. Patient was informed of the risks and complications of the procedure including alternatives to surgery. These were discussed with the patient personally. Patient voices understanding and wishes to proceed. Some of the risks and complications were included in a form from the [employer]. 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 Frozen section left postauricular area by earlobe - actinic keratosis with moderate atypia. Frozen section left postauricular area near occipital hairline - actinic keratosis with moderate atypia. Size of skin graft dorsum right hand by index finger - 4.1 x 4.1 cm. leak patcher: Wanda Borjas. leak patcher: Den Boyd. Type of Anesthesia:: Local MAC - xylocaine with epinephrine and IV sedation. Specimen's removed: 1. Lesion dorsum right hand by index finger to Pathology as a frozen section. 2. Lesion left postauricular area by earlobe to Pathology as a frozen section. 3. Lesion left postauricular area near occipital hairline to Pathology as a frozen section. 4. Lesion dorsal radial aspect right wrist to Pathology. 5. Lesion left outer distal arm to Pathology. 6. Squamous cell carcioma dorsum right hand by index finger to Pathology. 7. Actinic keratosis with moderate atypia left postauricular area by earlobe to Pathology. 8. A ctinic keratosis with moderate atypia left postauricular area near occipital hairline to Pathology. Drains: None. Estimated Blood Loss (mL): 20 ml. Description of Procedure: Patient was taken to OR in supine position and was given IV sedation. He was placed in the lateral position. The left ear, left neck, left arm, left flank, right hand and wrist were prepped and draped in the usual fashion. SCD's were placed for DVT prophylaxis. Perioperative antibiotics were given intravenously. The lesions (dorsum right hand by index finger, dorsal radial aspect right wrist, left postauricular area by earlobe, left postauricular area near occipital hairline, left outer distal arm, left flank area) were infiltrated with xylocaine and epinephrine. After waiting 5 minutes for the anesthetic to take effect, I excised the lesions on dorsum right hand by index finger, left postauricular area by earlobe, and left postauricular area near occipital hairline in an intradermal fashion and sent them to Pathology for analysis to rule out carcinoma. Frozen section showed the lesion on dorsum right hand by index finger was a squamous cell carcinoma, the lesion on left postauricular area by earlobe was an actinic keratosis with moderate atypia, and the lesion on left postauricular area near occipital hairline was an actinic keratosis with moderate atypia. These three lesions will be re-excised today. The lesion on the dorsal radial aspect right wrist looked clinically like an actinic lesion and was excised in an intradermal fashion and sent to Pathology for analysis to rule out carcinoma. Hemostasis was obtained with electrocautery. The lesion on the left outer distal arm looked clinically like an actinic lesion and was excised in an oblique elliptical fashion. A suture was marked at the 12 oclock position for pathology orientation and sent to pathology for analysis to rule out carcinoma. The lesion was excised with a 1 mm margin in all directions thus making it an 8 mm excision with a 2.5 cm layered closure. Hemostasis was obtained with electrocautery. The wound was closed in multiple layers with 4-0 Monocryl interrupted sutures for the deep dermis and subcutaneous tissue. The skin was approximated with 4-0 Prolene simple interrupted sutures. I then excised the squamous cell carcinoma on the dorsum right hand by index finger in a circular fashion with a 1 cm margin in all directions thus making it a 4.1 cm excision. A suture was placed at the 12 oclock position for pathology orientation and sent to pathology for analysis to rule out carcinoma at the margins. A FTSG was then harvested from the left flank. An ellipse of skin was excised in this area into the subcutaneous tissue. The subcutaneous tissue was removed from the undersurface of the dermis thus fashioning a full thickness skin graft. The skin graft was placed in saline. Some additional subcutaneous tissue was excised to aid in wound closure. Hemostasis was obtained with electrocautery. The donor incision was then closed in multiple layers with 2-0 Vicryl simple running suture for Elba's fascial layer. The deep dermis and subcutaneous tissue was approximated with 3-0 Monocryl interrupted sutures. The skin was approximated with 3-0 V lock unidirectional barbed running subcuticular suture. This was followed by Histoacryl skin tissue adhesive. Kerlix gauze dressing was then applied. The full thickness skin graft was then placed on the dorsum right hand wound and secured to the skin edges with 4-0 Chromic simple interrupted sutures. 4-0 Chromic sutures were used for central quilting stabilization. Antibiotic ointment was applied to the skin graft followed by xeroform gauze and cotton balls soaked in saline and secured to the skin with 3-0 Nylon tie over stent suture dressing. The size of the defect that was skin grafted was 4.1 x 4.1 cm or 16.8 cm2. The two lesions on the left postauricular area by earlobe and near occipital hairline were excised in rhomboid fashions into the subcutaneous tissue. Sutures were marked at the 12 oclock position for pathology orientation and sent to pathology for analysis to rule out carcinoma. These two lesions were excised with 4 mm margins. Both lesions were actinic keratoses with moderate atypia and will be excised with a necessary margin for the possibility of carcinoma being present on the final pathology report. Rhomboid flaps were designed adjacent to both wounds. Incisions were made and the flaps were elevated on a subcutaneous pedicle at the level of the underlying muscle. The rhomboid flaps were transposed into the defects with minimal tension and minimal distortion. Hemostasis was obtained with electrocautery. The size of the defects and the size of the flaps necessary to close these defects were 6.5 cm2 for the left postauricular area by earlobe lesion and 4 cm2 for the left postauricular area near occipital hairline. Both these wounds were then closed in a layered fashion after transposing the rhomboid flaps into the defects with 5-0 Monocryl interrupted sutures for the deep dermis and subcutaneous tissue. The skin was approximated with 5-0 Prolene simple interrupted sutures. Antibiotic ointment was applied followed by a gauze dressing. The incision on the left outer distal arm was dressed with antibiotic ointment followed by an Op-site dressing. The wound on the dorsal radial aspect right wrist was dressed with antibiotic ointment and xeroform gauze. Kerlix gauze was applied to the right hand and wri st followed by a compression shimon wrap. Patient tolerated the procedure well and was sent to PACU in satisfactory condition. Patient will be sent home on antibiotics and pain medication. Patient will keep his head elevate during the initial postoperative period. Patient will followup in a week for a wound check and takedown of the skin graft dressing and for discussion of the pathology report and for removal of the sutures. Grafts/Implants Used: None. - Complications None. - Admit VTE Documentation VTE Present on Admission: No VTE Mechan Device Prophylaxis: SCD's VTE Pharm Prophylaxis ordered?: No Code Visit Surgery Charges CPT - 74983 ICD-10 - C44.622, Z85.828, Z87.891 75313 C44.622, Z85.828, Z87.891 76987 L57.0, Z85.828, Z87.891 72020 L57.0, Z85.828, Z87.891 53657 D49.2, Z85.828, Z87.891 98025 D49.2, Z85.828, Z87.891 89138 D49.2, Z85.828, Z87.891
--- OUTSIDE RECORDS SUMMARY | 2018-06-09 19:26 | XMS RPT_ITS ---
:1945 Author Organization [place] Support Name Relationship Address Phone MARCO RANDLE Unavailable [address] + [place] [address] R Unavailable Unavailable Unavailable RAZIA MARCO Unavailable [address] + [place] [address] R Unavailable Unavailable Unavailable RAZIA MARCO Unavailable [address] + [place] [address] R Unavailable Unavailable Unavailable RAZIA MARCO Unavailable [address] + [place] [address] R Unavailable Unavailable Unavailable RAZIA MARCO Unavailable [address] + [place] [address] R Unavailable Unavailable Unavailable RAZIA MARCO Unavailable [address] + [place] [address] R Unavailable Unavailable Unavailable RAZIA MARCO Unavailable [address] + [place] [address] R Unavailable Unavailable Unavailable RAZIA MARCO Unavailable [address] + [place] [address] R Unavailable Unavailable Unavailable RAZIA MARCO Unavailable [address] + [place] [address] R Unavailable Unavailable Unavailable RAZIA MARCO Unavailable [address] + [place] [address] R Unavailable Unavailable Unavailable RAZIA MARCO Unavailable [address] + [place] [address] R Unavailable Unavailable Unavailable RAZIA MARCO Unavailable [address] + [place] [address] R Unavailable Unavailable Unavailable RAZIA MARCO Unavailable [address] + [place] [address] R Unavailable Unavailable Unavailable RAZIA MARCO Unavailable [address] + [place] [address] R Unavailable Unavailable Unavailable RAZIA, MARCO Unavailable [address] + [place] [address] R Unavailable Unavailable Unavailable RAZIA, MARCO Unavailable [address] + [place] [address] R Unavailable Unavailable Unavailable RAZIA, MARCO Unavailable [address] + [place] [address] R Unavailable Unavailable Unavailable RAZIA, MARCO Unavailable [address] + [place] [address] R Unavailable Unavailable Unavailable RAZIA, MARCO Unavailable [address] + [place] [address] R Unavailable Unavailable Unavailable RAZIA, MARCO Unavailable [address] + [place] [address] R Unavailable Unavailable Unavailable RAZIA, MARCO Unavailable [address] + [place] [address] R Unavailable Unavailable Unavailable RAZIA, MARCO Unavailable [address] + [place] [address] R Unavailable Unavailable Unavailable RAZIA, MARCO Unavailable [address] + [place] [address] R Unavailable Unavailable Unavailable RAZIA, MARCO Unavailable [address] + [place] [address] R Unavailable Unavailable Unavailable RAZIA, MARCO Unavailable [address] [phone] [place] [address] R Unavailable Unavailable Unavailable RAZIA, MARCO Unavailable [address] + [place] [address] R Unavailable Unavailable Unavailable RAZIA, MARCO Unavailable [address] [phone] [place] [address] R Unavailable Unavailable Unavailable RAZIA, MARCO Unavailable [address] [phone] [place] [address] R Unavailable Unavailable Unavailable RAZIA, MARCO Unavailable Unavailable + Care Team Providers Name Role Phone MARY ANN NEWELL MD Admitting Unavailable MARY ANN NEWELL MD Attending Unavailable MARY ANN NEWELL MD Primary Care Unavailable CEBULALVIN III Consulting Unavailable PROVIDER, UNKNOWN Consulting Unavailable CEBUL ALVIN PAZ Attending Unavailable CEBUL IIIALVIN Referring Unavailable CEBUL IIIALVIN Referring Unavailable CEBUL IIIALVIN Attending Unavailable CEBUL III, ALVIN A Referring Unavailable CEBUL III, ALVIN A Referring Unavailable CEBUL III, ALVIN A Referring Unavailable CEBUL III, ALVIN A Referring Unavailable BERTA CHOW (OLIVER) Attending Unavailable CEBUL III, ALVIN A Referring Unavailable BERTA CHOW (OLIVER) Attending Unavailable CEBUL III, ALVIN A Referring Unavailable CEBUL III, ALVIN A Attending Unavailable CEBUL III, ALVIN A Referring Unavailable CHAN MENON (OLIVER) Referring Unavailable CHAN MENON (OLIVER) Attending Unavailable CEBUL III, ALVIN A Attending Unavailable CEBUL III, ALVIN A Referring Unavailable Mary Ann Dudley Attending Unavailable Mary Ann Dudley Referring Unavailable Cebul III, Alvin Primary Care Unavailable Cebul III, Alvin Primary Care Unavailable Vicki Bull Attending Unavailable SlabMary Ann montalvo Attending Unavailable Cebul III, Alvin Referring Unavailable Cebul III, Alvin Primary Care Unavailable Andres De Oliveira Attending Unavailable Andres De Oliveira Referring Unavailable Cebul III, Alvin Primary Care Unavailable CebulNam Attending Unavailable Cebul III, Alvin Referring Unavailable Cebul III, Alvin Primary Care Unavailable Cebul, Nam Attending Unavailable CebulNam Referring Unavailable Cebul III, Alvin Primary Care Unavailable Luis Javier Attending Unavailable Cebul, Nam Referring Unavailable Cebul, Nam Attending Unavailable Cebul, Nam Attending Unavailable Cebul, Nam Attending Unavailable Cebul III, Alvin Referring Unavailable Cebul III, Alvin Primary Care Unavailable CebulNam Admitting Unavailable KitGurjit mckinney Attending Unavailable Cebul III, Alvin Primary Care Unavailable Gurjit [place] Consulting Unavailable CebulNam Consulting Unavailable CebulNam Admitting Unavailable KitGurjit mckinney Attending Unavailable Cebul III, Alvin Primary Care Unavailable KitGurjit mckinney Consulting Unavailable CebulNam Consulting Unavailable Cebul, Nam Attending Unavailable CebulNam Referring Unavailable Cebul III, Alvin Primary Care Unavailable CebulNam Admitting Unavailable Gurjit [place] Consulting Unavailable Cebul, aNm Attending Unavailable CebulNam Referring Unavailable Cebul III, Alvin Primary Care Unavailable Cebul, Nam Attending Unavailable CebulNam Referring Unavailable Cebul III, Alvin Primary Care Unavailable Cebul, aNm Attending Unavailable CebulNam Referring Unavailable Cebul III, Alvin Primary Care Unavailable Cebul, Nam Attending Unavailable Cebul III, Alvin Referring Unavailable Cebul III, Alvin Primary Care Unavailable Cebul, Nam Attending Unavailable Cebul III, Alvin Referring Unavailable Cebul, Nam Attending Unavailable Cebul III, Alvin Referring Unavailable Cebul III, Alvin Primary Care Unavailable Slaby, Mary Ann Attending Unavailable Cebul III, Alvin Referring Unavailable Cebul III, Alvin Primary Care Unavailable Cebul, Nam Attending Unavailable Cebul, Nam Referring Unavailable Cebul III, Alvin Primary Care Unavailable Cebul, Nam Consulting Unavailable Alba Nicolas Attending Unavailable Cebul III, Alvin Referring Unavailable Cebul, Nam Attending Unavailable Cebul, Nam Referring Unavailable Cebul III, Alvin Primary Care Unavailable Slaby, Mary Ann Attending Unavailable Cebul III, Alvin Referring Unavailable Slaby, Mary Ann Attending Unavailable Slaby, Mary Ann Referring Unavailable Cebul III, Alvin Primary Care Unavailable Slaby, Mary Ann Consulting Unavailable Slaby, Mary Ann Attending Unavailable Slaby, Mary Ann Referring Unavailable Cebul III, Alvin Primary Care Unavailable Slaby, Mary Ann Consulting Unavailable Gesler, Mary Ann Attending Unavailable Gesler, Mary Ann Referring Unavailable Cebul III, Alvin Primary Care Unavailable Cebul, Nam Attending Unavailable Cebul III, Alvin Referring Unavailable Cebul III, Alvin Primary Care Unavailable PROBLEMS PROBLEMS DATE TYPE CONDITION / CODE ATTENDING STATUS SOURCE 05/18/2018 Unknown I71.4 - Abdominal Nam Hughes Active [place] aortic aneurysm, Community without rupture / Hospital I71.4(ICD-10) Repository 04/29/2018 Unknown G89.18 - Other acute Mary Ann Dudley Active [place] postprocedural pain Community / G89.18(ICD-10) Hospital Repository 03/16/2018 Active 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 Clinic 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 / [place] Z79.01(ICD-10) Repository 01/16/2018 Active Unknown / SINAN, Active [place] UNK(Unknown) CHAN (OLIVER) Clinic Main [place] Repository 01/17/2017 Active Benign prostatic NA Active [place] hyperplasia with Clinic Main lower urinary tract [place] symptoms / Repository N40.1(ICD-10) 01/17/2017 Active 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 Clinic Main / N13.8(ICD-10) [place] Repository 07/13/2015 Active Essential (primary) NA Active [place] hypertension / Clinic Main I10(ICD-10) [place] Repository 01/09/2018 Active 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 / [place] Z79.899(ICD-10) Repository 11/20/2017 Unknown Z98.890 - Other Nam Hughes Active [place] specified Community postprocedural Hospital states / Repository Z98.890(ICD-10) 11/20/2017 Unknown Z86.79 - Personal Nam Hughes Active [place] history of other [facility] diseases of the Hospital circulatory system / Repository Z86.79(ICD-10) 09/26/2017 Unknown 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, Repository unspecified / I74.4(ICD-10) 10/10/2017 Unknown I10 - Essential Concepcion, Luis Active [place] (primary) [facility] hypertension / Hospital I10(ICD-10) Repository 09/24/2017 Unknown R09.89 - Other Nam Hughes Active [place] specified symptoms Community and signs involving Hospital the circulatory and Repository respiratory systems / R09.89(ICD-10) 07/15/2017 Active Abdominal aortic NA Active [place] aneurysm, without Clinic Main rupture / [place] I71.4(ICD-10) Repository 06/27/2017 Unknown Z01.818 - Encounter Mary Ann Newell Active [place] for other [facility] preprocedural Hospital examination / Repository Z01.818(ICD-10) 05/21/2017 Admitting Effusion, right knee MARY ANN NEWELL Active [place] [facility] Diagnosis / E15920(ICD-10) [facility] Repository 05/21/2017 Principle Effusion, right knee MARY ANN NEWELL Active [place] Diagnosis / G64807(ICD-10) [facility] Repository 05/21/2017 Secondary Unilateral primary MARY ANN NEWELL Active [place] [facility] Diagnosis osteoarthritis, [facility] knee / Hospital M1711(ICD-10) Repository PROCEDURES PROCEDURES No Procedure Records FoundRESULTS RESULTS ABD AORTIC/IVC DUPLEX Observed: 05/18/2018 Status: F Source: [place] SCAN 2:40 PM [facility] HOSPITAL REPOSITORY [facility] Cardiovascular Services [address] [place] [address] Abd Aortic/IVC Duplex scan 05/18/18 0919 MR#: [id number] Acct: [id number] Name: RAZIAVICKI Rep #: [id number] : 1945 72 From: Nam Hughes MD Attending Dr: Nam Hughes MD Status: REG CLI Ordering Dr: Nam Hughes MD Date: 05/18/18 Location: [facility] Sex: M C Admitted: Reason For Study: AAA with repair Aorta Measurements Aorta Doppler Measurements Proximal aorta measures1.9 x 1.9cm. in cross- Peak systolic flow velocities within the proximal sectional axis. aorta measure 95.8 cm/sec. Proximal aorta measures1.8cm. in longitudinal Peak systolic flow velocities within the mid aorta axis. measure 82.1 cm/sec. Mid aorta measures4.0 x 4.4cm. in cross-sectional Peak systolic flow velocities within the distal axis. aorta measure 78.4 cm/sec. Mid aorta measures4.5cm. in longitudinal axis. Distal aorta measures3.3 x 3.6cm. in cross- sectional axis. Distal aorta measures3.5cm. in longitudinal axis. Left Iliac Artery Left iliac artery measures 1.2 cm. in the longitudinal axis. Left iliac artery measures 1.2 x 1.2 cm. in the cross-sectional axis. Peak systolic velocity in the left iliac artery measures 75.2 cm/sec. Right Iliac Artery Right iliac artery measures 1.1 x 1.1 cm. in the longitudinal axis. Right iliac artery measures 1.1 cm. in the cross-sectional axis. Peak systolic velocity in the right iliac artery measures 108.0 cm/sec. Procedure Aorta IVC Iliac vasculature or bypass grafts 52785. Technically difficult due to body habitus and bowel gas. Exam performed in department. Interpretation Summary Maximal aortic aneurysm sac dimensions 4.01 x 4.41cm Mid aorta suggests AP diameter of 4.5cm Stent graft in place with normal flow Left common iliac 1.2cm Right common iliac 1.1cm Ordering Physician: Nam Hughes Referring Physician: Alvin Hughes Performed By: Lorena Mario RVT 05/18/181438 Date Nam Hughes MD CC: Alvin Hughes III, MD; Nam Hughes MD Date Dictated: 05/18/18918 Date Transcribed: 05/18/181438 Urology Physician: Signed SURGERY VISIT REPORT Observed: 05/18/2018 Status: F Source: MOTT 2:34 PM [facility] [address] [place] [address] [address] [place] [address] OFFICE VISIT Date of Service: 05/18/18 MR#: [id number] Acct: [id number] Name: VICKI RANDLE Rep #: [id number] : 1945 Provider: Nam Hughes MD Age/Sex: 72/M Location: [facility] Status: Signed Intake Vital Signs05/18/18 Body Mass Index (BMI) 35.2 Intake Visit Reasons: F/U U/S AAA 05/13/2018 Chief Complaint: AAA repair Administrative Intern Required: No Is patient in pain?: No Allergies adhesive Adverse Reaction (Verified 05/18/18 13:56) Itching atorvastatin [From Lipitor] Adverse Reaction (Verified 05/18/18 13:56) Other rosuvastatin calcium [From Crestor] Adverse Reaction (Verified 05/18/18 13:56) ACHING Medications Finasteride [Proscar] 5 mg PO DAILY 11/18/13 [History Confirmed 05/18/18] Omeprazole [Prilosec] 20 mg PO DAILY 11/18/13 [History Confirmed 05/18/18] Tamsulosin HCl [Flomax] 0.4 mg PO DAILY 11/18/13 [History Confirmed 05/18/18] Fluoxetine HCl [Prozac] 20 mg PO DAILY 12/27/16 [History Confirmed 05/18/18] brimonidine 0.2 % eye drops 1 drp OPHTHALMIC BID ml 08/05/17 [History Confirmed 05/18/18] timolol maleate 0.5 % eye drops 1 drp OPHTHALMIC BID 08/05/17 [History Confirmed 05/18/18] Carvedilol [Coreg (Beta Junito)] 3.125 mg PO BID #60 tab 09/10/17 [Rx Confirmed 05/18/18] Amlodipine [Norvasc] 10 mg PO QHS 04/21/18 [History Confirmed 05/18/18] Clindamycin HCl [Cleocin] 300 mg PO TID #21 cap 04/28/18 [Rx Confirmed 05/18/18] Lactobacillus Acidophilus/Fos [Acidophilus Probiotic Tablet] 1 ea PO BID #20 tab 04/28/18 [Rx Confirmed 05/18/18] imiquimod 5 % topical cream packet 1 applic TOPICAL 5XW #30 ea 05/13/18 [Rx Confirmed 05/18/18] PFSH Medical History Abdominal aortic aneurysm (AAA) (Acute) Neoplasm of skin of left cheek (Chronic) Neoplasm of skin of forearm (Chronic) Neoplasm of skin of hand (Chronic) Neoplasm of skin of ear (Chronic) 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) Neoplasm of skin of upper arm (Chronic) Personal history of skin cancer (Chronic) 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) AAA (abdominal aortic aneurysm) (Acute) ACTINIC LESION WITH SEVERE ATYPIA (Acute) ATYPICAL SQUAMOUS EPITHELIAL LESION WITH SOLAR KERATOSIS (Acute) ATYPICAL SQUAMOUS LESION LEFT PREAURICULAR AREA (Acute) Actinic keratosis (Acute) Actinic skin damage (Acute) Basal cell carcinoma (Acute) Carpal tunnel syndrome (Acute) Cataract (Acute) GERD (gastroesophageal reflux disease) (Acute) Hyperlipidemia (Acute) INFLAMED ACTINIC KERATOSIS (Acute) INFLAMED ACTINIC KERATOSIS RIGHT VOLAR FOREARM (Acute) Nodule of right lung (Acute) Prostate enlargement (Acute) Pulmonary emphysema (Acute) SCATTERED ACTINIC DAMAGE ON FACE AND UPPER EXTREMITIES (Acute) Seborrheic keratosis (Acute) Situational depression (Acute) Solar keratosis (Acute) Squamous cell carcinoma (Acute) Squamous cell carcinoma in situ (Acute) Squamous cell carcinoma in situ (Acute) Squamous cell carcinoma in situ (Acute) Venous insufficiency of both lower extremities (Acute) Hypertension (Chronic) Surgical History EXCISION ATYPICAL SQUAMOUS LESION (Acute) EXCISION LESIONS AND SKIN CANCERS (Acute) EXCISION OF SKIN CANCER FACE AND HANDS (Acute) H/O knee surgery (Acute) History of basal cell carcinoma excision (Acute) History of carpal tunnel surgery (Acute) History of cholecystectomy (Acute) History of squamous cell carcinoma excision (Acute) History of squamous cell carcinoma excision (Acute) Hx of cataract surgery (Acute) INTRADERMAL EXCISION LESIONS (Acute) S/P AAA repair (Acute) Family History Sister Diabetes Social History housing: house Smoking Status: Never smoker second hand exposure: No quit status: has quit before alcohol intake: current details: BEER AND MIXED DRINKS SOCIAL substance use type: does not use what type of physical activity do you participate in: other seatbelt use: always do you feel safe at home: Yes additional social history: SUN EXPOSURE: FREQUENTLY HPI HPI HPI: VICKI RANDLE, is a 72 M who presents to the office today for surgical follow-up status post aortic aneurysm stent graft. My note from November 26, 2017 reflects the following: HPI: VICKI RANDLE, is a 72 M who presents to the office today for surgical follow-up regarding his infrarenal abdominal aortic aneurysm stent graft repair that I performed for him September 09, 2017. The main body device deployed percutaneously from the right common femoral artery was a [place] excluder 26 x 14.5 x 12. The contralateral limb was a 20 x 14 sequeira bottom. An additional extension was placed on the right being a 20 x 12 similar sequeira bottom device. At the time of surgery is noted to have persistent flow in his inferior mesenteric artery and in the lumbar. Close follow-up was felt to be pertinent. At the [facility] on November 20, 2017 he had a CTA of the abdomen. Preoperatively his infrarenal abdominal aortic aneurysm was felt to be 4.8 cm. On the most recent examination the [place] sac has a measurement of 4.6 cm. The stent graft appears to be in good position. 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 Very minimal blush is seen within the [place] sac. Of additional note is the patient has a small left subpulmonic effusion. The patient admits that he does not get any type of routine organized exercise. He has no abdominal or back pain. On May 13, 2018 the patient had aortic duplex exam. This did not get a clear view of the previous aneurysm. The patient had a repeat study today. The aneurysm sac measures approximately 4.5 cm diameter. The patient denies abdomen or back pain. He continues to chew tobacco. He does not get any purposeful exercise. Exam Const General: cooperative Nutritional Appearance: obese Resp Auscultation: clear to auscultation bilaterally Cardio Rate: regular rate Rhythm: regular rhythm Other: Bilateral radial and brachials and carotids and femorals are 3+. No carotid bruit GI Other: Markedly overweight. I am not able to detect any internal organs. The aorta is not palpable Extrem General: no clubbing, cyanosis or edema Assessment AND Plan Problems 1. Abdominal aortic aneurysm (AAA) without rupture I71.4 Plan 72-year-old gentleman. On ultrasound duplex imaging his aortic aneurysm sac appears to be 4.5 cm which is stable and slightly less than preoperative. He had a previous CTA as noted above. That suggested a small type II endoleak. It would appear that this is not clinically significant at this time. The patient is asymptomatic. I would obtain a repeat CTA of his abdomen approximately September 2018 and have him return to my office at that setting. We will check a creatinine preintervention. He has had an opportunity to ask and have questions answered. At this time his progress and prognosis appears stable. I did take the opportunity today to strongly advised him that he cease his tobacco use I additionally invited him to initiate a daily exercise program even if it be as simple as a walking program. CC: Dr. Alvin Hughes, III Nam Hughes M.D., F.A.C.S. Orders Orders: Coding Level of Care Code Off vis,est,level 2 Diagnoses Abdominal aortic aneurysm (AAA) without rupture I71.4 Presence of rupture: without rupture 05/18/18 1434 <Electronically signed by Nam Hughes MD> Date Nam Hughes MD Cosigner Signature: Date (if applicable) CC: Alvin Hughes III, MD PLASTIC SURGERY Observed: 05/18/2018 Status: F Source: MOTT VISIT REPORT 2:11 PM [facility] REPOSITORY [facility] [address] [place] [address] OFFICE VISIT Date of Service: 05/11/18 MR#: [id number] Acct: [id number] Name: VICKI RANDLE Rep #: [id number] : 1945 Provider: CYNTHIA Nicolas Age/Sex: 72/M Location: [facility] Status: Signed Intake Vital Signs05/11/18 Body Mass Index (BMI) 35.2 05/11/18 Blood Pressure 123/74 H 05/11/18 Blood Pressure Location Lt brachial 05/11/18 Blood Pressure Position Sitting 05/11/18 Respiratory Rate 18 Intake Visit Reasons: post op surgery 04/28/18 Administrative Intern Required: No Accompanied by: None Is patient in pain?: No Allergies adhesive Adverse Reaction (Verified 05/18/18 13:56) Itching atorvastatin [From Lipitor] Adverse Reaction (Verified 05/18/18 13:56) Other rosuvastatin calcium [From Crestor] Adverse Reaction (Verified 05/18/18 13:56) ACHING Medications Finasteride [Proscar] 5 mg PO DAILY 11/18/13 [History Confirmed 05/18/18] Omeprazole [Prilosec] 20 mg PO DAILY 11/18/13 [History Confirmed 05/18/18] Tamsulosin HCl [Flomax] 0.4 mg PO DAILY 11/18/13 [History Confirmed 05/18/18] Fluoxetine HCl [Prozac] 20 mg PO DAILY 12/27/16 [History Confirmed 05/18/18] brimonidine 0.2 % eye drops 1 drp OPHTHALMIC BID ml 08/05/17 [History Confirmed 05/18/18] timolol maleate 0.5 % eye drops 1 drp OPHTHALMIC BID 08/05/17 [History Confirmed 05/18/18] Carvedilol [Coreg (Beta Junito)] 3.125 mg PO BID #60 tab 09/10/17 [Rx Confirmed 05/18/18] Amlodipine [Norvasc] 10 mg PO QHS 04/21/18 [History Confirmed 05/18/18] Clindamycin HCl [Cleocin] 300 mg PO TID #21 cap 04/28/18 [Rx Confirmed 05/18/18] Lactobacillus Acidophilus/Fos [Acidophilus Probiotic Tablet] 1 ea PO BID #20 tab 04/28/18 [Rx Confirmed 05/18/18] imiquimod 5 % topical cream packet 1 applic TOPICAL 5XW #30 ea 05/13/18 [Rx Confirmed 05/18/18] PFSH Medical History Abdominal aortic aneurysm (AAA) (Acute) Neoplasm of skin of left cheek (Chronic) Neoplasm of skin of forearm (Chronic) Neoplasm of skin of hand (Chronic) Neoplasm of skin of ear (Chronic) 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) Neoplasm of skin of upper arm (Chronic) Personal history of skin cancer (Chronic) 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) AAA (abdominal aortic aneurysm) (Acute) ACTINIC LESION WITH SEVERE ATYPIA (Acute) ATYPICAL SQUAMOUS EPITHELIAL LESION WITH SOLAR KERATOSIS (Acute) ATYPICAL SQUAMOUS LESION LEFT PREAURICULAR AREA (Acute) Actinic keratosis (Acute) Actinic skin damage (Acute) Basal cell carcinoma (Acute) Carpal tunnel syndrome (Acute) Cataract (Acute) GERD (gastroesophageal reflux disease) (Acute) Hyperlipidemia (Acute) INFLAMED ACTINIC KERATOSIS (Acute) INFLAMED ACTINIC KERATOSIS RIGHT VOLAR FOREARM (Acute) Nodule of right lung (Acute) Prostate enlargement (Acute) Pulmonary emphysema (Acute) SCATTERED ACTINIC DAMAGE ON FACE AND UPPER EXTREMITIES (Acute) Seborrheic keratosis (Acute) Situational depression (Acute) Solar keratosis (Acute) Squamous cell carcinoma (Acute) Squamous cell carcinoma in situ (Acute) Squamous cell carcinoma in situ (Acute) Squamous cell carcinoma in situ (Acute) Venous insufficiency of both lower extremities (Acute) Hypertension (Chronic) Surgical History EXCISION ATYPICAL SQUAMOUS LESION (Acute) EXCISION LESIONS AND SKIN CANCERS (Acute) EXCISION OF SKIN CANCER FACE AND HANDS (Acute) H/O knee surgery (Acute) History of basal cell carcinoma excision (Acute) History of carpal tunnel surgery (Acute) History of cholecystectomy (Acute) History of squamous cell carcinoma excision (Acute) History of squamous cell carcinoma excision (Acute) Hx of cataract surgery (Acute) INTRADERMAL EXCISION LESIONS (Acute) S/P AAA repair (Acute) Family History Sister Diabetes Social History housing: house Smoking Status: Never smoker second hand exposure: No quit status: has quit before alcohol intake: current details: BEER AND MIXED DRINKS SOCIAL substance use type: does not use what type of physical activity do you participate in: other seatbelt use: always do you feel safe at home: Yes additional social history: SUN EXPOSURE: FREQUENTLY HPI post op surgery 04/28/18: Details: Postop visit from his recent surgery on 04/28/18 where he underwent excision 2.1 cm squamous cell carcinoma dorsum right hand by index finger with FTSG from left flank (16.8 cm2) and excision 1 cm actinic keratosis with moderate atypia left postauricular area by earlobe with rhomboid transposition skin flap reconstruction (6.5 cm2) and excision 6 mm actinic keratosis with moderate atypia left postauricular area near occipital hairline with rhomboid transposition skin flap reconstruction (4 cm2) and intradermal excision 6 mm lesion dorsal radial aspect right wrist and excision 6 mm lesion left outer distal arm with 2.5 cm layered closure. Comes in today with no complaints. Skin graft on dorsum right hand shows good adherence and good vascular ingrowth and 100% take. Continue to apply antibiotic ointment to the skin graft daily. The donor incision left flank is dry and intact and healing well. Removed remainder sutures from incision left outer distal arm without difficulty. Incision is well healed and is dry and intact. The flap incisions x 2 left postauricular area (by earlobe and near occipital hairline) are dry and intact and healing, sutures removed without difficulty. The wound dorsal radial aspect right wrist is healed. Pathology showed the lesion dorsum right hand by index finger was a squamous cell carcinoma, keratoacanthoma type, completely excised. The lesion dorsal radial aspect right wrist was an actinic keratosis with mild to moderate atypia. The lesion left outer distal arm was an actinic keratosis with mild atypia. The lesion left postauricular area by earlobe was an actinic keratosis with mild to moderate atypia. The lesion left postauricular area near occipital hairline was an actinic keratosis with mild to moderate atypia. Massage incisions with skin lotion daily to help soften up the scars. Continue to apply antibiotic ointment daily to skin graft on dorsum right hand. Continue SHIMON wrap to the right hand for compression. Keep head elevated. Keep right hand elevated. Followup 2-3 weeks. Patient states he needs more Aldara. Will send script to his Pharmacy. After the new year, he will apply the Aldara to the actinic lesion dorsal radial aspect right wrist and other suspicious areas that I notice in the office and he notices at home. Assessment AND Plan Problems 1. 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 Actinic keratosis L57.0 3. Personal history of skin cancer Z85.828 4. Former smoker Z87.891 Medications New: imiquimod 5% apply the imiquimod daily at night1 applic Topical 5XW 30 ea 0RF skin CA 5 days per week for 6 weeks. 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 Actinic keratosis L57.0 Personal history of skin cancer Z85.828 Former smoker Z87.891 05/18/18 1411 <Electronically signed by Alba Nicolas NP-C> Date Alba Nicolas LATIN DANCE INSTRUCTOR-C 05/16/18 1911<Electronically signed by Mary Ann Dudley MD> Cosigner Signature: Date (if applicable) Mary Ann Dudley MD CC: AAA SCREENING Observed: 05/13/2018 Status: F Source: GIL 5:01 PM [facility] REPOSITORY [facility] Cardiovascular Services [address] [address] AAA Screening 05/13/18 0839 MR#: [id number] Acct: [id number] Name: VICKI RANDLE Rep #: [id number] : 1945 72 From: Nam Hughes MD Attending Dr: Nam Hugehs MD Status: REG CLI Ordering Dr: Nam Hughes MD Date: 05/13/18 Location: [facility] Sex: M C Admitted: Reason For Study: AAA Aorta Measurements Aorta Doppler Measurements Proximal aorta measures1.86 x 1.88cm. in cross- Peak systolic flow velocities within the proximal sectional axis. aorta measure 69.7 cm/sec. Proximal aorta measures1.88cm. in longitudinal Peak systolic flow velocities within the mid aorta axis. measure 52.6 cm/sec. Mid aorta measures1.63 x 1.63cm. in cross- Peak systolic flow velocities within the distal sectional axis. aorta measure 34.8 cm/sec. Mid aorta measures1.64cm. in longitudinal axis. Distal aorta measures1.52 x 1.69cm. in cross- sectional axis. Distal aorta measures1.62cm. in longitudinal axis. Left Iliac Artery Left iliac artery measures 1.65 x 1.63 cm. in the cross-sectional axis. Left iliac artery measures 1.60 cm. in the longitudinal axis. Peak systolic velocity in the left iliac artery measures 51.9 cm/sec. Right Iliac Artery Right iliac artery measures 1.44 x 1.46 cm. in the cross-sectional axis. Right iliac artery measures 1.60 cm. in the longitudinal axis. Peak systolic velocity in the right iliac artery measures 43.4 cm/sec. Procedure Aorta IVC Iliac vasculature or bypass grafts 70979. Exam performed in department. Interpretation Summary Maximal aortic dimensions proximally 1.86 x 1.88cm Normal flow velocity Left common iliac 1.65 x 1.63cm Right common iliac 1.44 x 1.46cm Ordering Physician: Nam Hughes Referring Physician: JACKSON Hughes M.D. Performed By: Otto FITZPATRICK, RVT, Nohemy and Student 05/13/18 170 Date Nam Hughes MD CC: Alvin Hughes III, MD; Nam Hughes MD Date Dictated: 05/13/18 0839 Date Transcribed: 05/13/181700 Urology Physician: Signed OPERATIVE REPORT Observed: 05/07/2018 Status: F Source: GIL 12:06 PM [facility] REPOSITORY [facility] Medical Records Department [address] [place] [address] Operative Report 04/28/182109 MR#: [id number] Acct: [id number] Name: VICKI RANDLE Rep #: [id number] : 1945 72 From: Mary Ann Dudley MD PCP: Alvin Hughes III, MD Status: [place] [facility] [place] [facility] Report of Operation Date of Procedure: 04/28/18 Pre-Operative Diagnosis: 1. 2.1 cm lesion dorsum right hand by index finger. 2. 1 cm lesion left postauricular area by earlobe. 3. 6 mm lesion left postauricular area near occipital hairline. 4. 6 mm lesion dorsal radial aspect right wrist. 5. 6 mm lesion left outer distal arm. 6. Personal history of skin cancer. 7. Former smoker. Post-Operative Diagnosis: 1. 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 2. 1 cm actinic keratosis with moderate atypia left postauricular area by earlobe. 3. 6 mm actinic keratosis with moderate atypia left postauricular area near occipital hairline. 4. 6 mm lesion dorsal radial aspect right wrist. 5. 6 mm lesion left outer distal arm. 6. Personal history of skin cancer. 7. Former smoker. Surgery/Procedure Performed:: 1. 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 2. Excision 1 cm actinic keratosis with moderate atypia left postauricular area by earlobe with rhomboid transposition skin flap reconstruction (6.5 cm2). 3. Excision 6 mm actinic keratosis with moderate atypia left postauricular area near occipital hairline with rhomboid transposition skin flap reconstruction (4 cm2). 4. Intradermal excision 6 mm lesion dorsal radial aspect right wrist. 5. Excision 6 mm lesion left outer distal arm with 2.5 cm layered closure. Description of Surgical Findings:: Comes in today for evaluation for TBSE. He has noticed enlarging lesions on his dorsum right hand by index finger, dorsal radial aspect right wrist, left outer distal arm, left postauricular area by earlobe, and left postauricular area near occipital hairline. These lesions have increased in size over the last several months and have developed some crustiness. He denies any trauma. He denies any fever. He has used Aldara in the past with success. Surgical excision was recommended. Patient was informed of the risks and complications of the procedure including alternatives to surgery. These were discussed with the patient personally. Patient voices understanding and wishes to proceed. Some of the risks and complications were included in a form from the [employer]. 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 Frozen section left postauricular area by earlobe - actinic keratosis with moderate atypia. Frozen section left postauricular area near occipital hairline - actinic keratosis with moderate atypia. Size of skin graft dorsum right hand by index finger - 4.1 x 4.1 cm. post anesthesia room nurse: Wanda Borjas. post anesthesia room nurse: Den Boyd. Type of Anesthesia:: Local MAC - xylocaine with epinephrine and IV sedation. Specimen's removed: 1. Lesion dorsum right hand by index finger to Pathology as a frozen section. 2. Lesion left postauricular area by earlobe to Pathology as a frozen section. 3. Lesion left postauricular area near occipital hairline to Pathology as a frozen section. 4. Lesion dorsal radial aspect right wrist to Pathology. 5. Lesion left outer distal arm to Pathology. 6. Squamous cell carcioma dorsum right hand by index finger to Pathology. 7. Actinic keratosis with moderate atypia left postauricular area by earlobe to Pathology. 8. Actinic keratosis with moderate atypia left postauricular area near occipital hairline to Pathology. Drains: None. Estimated Blood Loss (mL): 20 ml. Description of Procedure: Patient was taken to OR in supine position and was given IV sedation. He was placed in the lateral position. The left ear, left neck, left arm, left flank, right hand and wrist were prepped and draped in the usual fashion. SCD's were placed for DVT prophylaxis. Perioperative antibiotics were given intravenously. The lesions (dorsum right hand by index finger, dorsal radial aspect right wrist, left postauricular area by earlobe, left postauricular area near occipital hairline, left outer distal arm, left flank area) were infiltrated with xylocaine and epinephrine. After waiting 5 minutes for the anesthetic to take effect, I excised the lesions on dorsum right hand by index finger, left postauricular area by earlobe, and left postauricular area near occipital hairline in an intradermal fashion and sent them to Pathology for analysis to rule out carcinoma. Frozen section showed the lesion on dorsum right hand by index finger was a squamous cell carcinoma, the lesion on left postauricular area by earlobe was an actinic keratosis with moderate atypia, and the lesion on left postauricular area near occipital hairline was an actinic keratosis with moderate atypia. These three lesions will be re-excised today. The lesion on the dorsal radial aspect right wrist looked clinically like an actinic lesion and was excised in an intradermal fashion and sent to Pathology for analysis to rule out carcinoma. Hemostasis was obtained with electrocautery. The lesion on the left outer distal arm looked clinically like an actinic lesion and was excised in an oblique elliptical fashion. A suture was marked at the 12 oclock position for pathology orientation and sent to pathology for analysis to rule out carcinoma. The lesion was excised with a 1 mm margin in all directions thus making it an 8 mm excision with a 2.5 cm layered closure. Hemostasis was obtained with electrocautery. The wound was closed in multiple layers with 4-0 Monocryl interrupted sutures for the deep dermis and subcutaneous tissue. The skin was approximated with 4-0 Prolene simple interrupted sutures. I then excised the squamous cell carcinoma on the dorsum right hand by index finger in a circular fashion with a 1 cm margin in all directions thus making it a 4.1 cm excision. A suture was placed at the 12 oclock position for pathology orientation and sent to pathology for analysis to rule out carcinoma at the margins. A FTSG was then harvested from the left flank. An ellipse of skin was excised in this area into the subcutaneous tissue. The subcutaneous tissue was removed from the undersurface of the dermis thus fashioning a full thickness skin graft. The skin graft was placed in saline. Some additional subcutaneous tissue was excised to aid in wound closure. Hemostasis was obtained with electrocautery. The donor incision was then closed in multiple layers with 2-0 Vicryl simple running suture for Elba's fascial layer. The deep dermis and subcutaneous tissue was approximated with 3-0 Monocryl interrupted sutures. The skin was approximated with 3-0 V lock unidirectional barbed running subcuticular suture. This was followed by Histoacryl skin tissue adhesive. Kerlix gauze dressing was then applied. The full thickness skin graft was then placed on the dorsum right hand wound and secured to the skin edges with 4-0 Chromic simple interrupted sutures. 4- 0 Chromic sutures were used for central quilting stabilization. Antibiotic ointment was applied to the skin graft followed by xeroform gauze and cotton balls soaked in saline and secured to the skin with 3-0 Nylon tie over stent suture dressing. The size of the defect that was skin grafted was 4.1 x 4.1 cm or 16.8 cm2. The two lesions on the left postauricular area by earlobe and near occipital hairline were excised in rhomboid fashions into the subcutaneous tissue. Sutures were marked at the 12 oclock position for pathology orientation and sent to pathology for analysis to rule out carcinoma. These two lesions were excised with 4 mm margins. Both lesions were actinic keratoses with moderate atypia and will be excised with a necessary margin for the possibility of carcinoma being present on the final pathology report. Rhomboid flaps were designed adjacent to both wounds. Incisions were made and the flaps were elevated on a subcutaneous pedicle at the level of the underlying muscle. The rhomboid flaps were transposed into the defects with minimal tension and minimal distortion. Hemostasis was obtained with electrocautery. The size of the defects and the size of the flaps necessary to close these defects were 6.5 cm2 for the left postauricular area by earlobe lesion and 4 cm2 for the left postauricular area near occipital hairline. Both these wounds were then closed in a layered fashion after transposing the rhomboid flaps into the defects with 5-0 Monocryl interrupted sutures for the deep dermis and subcutaneous tissue. The skin was approximated with 5-0 Prolene simple interrupted sutures. Antibiotic ointment was applied followed by a gauze dressing. The incision on the left outer distal arm was dressed with antibiotic ointment followed by an Op-site dressing. The wound on the dorsal radial aspect right wrist was dressed with antibiotic ointment and xeroform gauze. Kerlix gauze was applied to the right hand and wrist followed by a compression shimon wrap. Patient tolerated the procedure well and was sent to PACU in satisfactory condition. Patient will be sent home on antibiotics and pain medication. Patient will keep his head elevate during the initial postoperative period. Patient will followup in a week for a wound check and takedown of the skin graft dressing and for discussion of the pathology report and for removal of the sutures. Grafts/Implants Used: None. - Complications None. - Admit VTE Documentation VTE Present on Admission: No VTE Mechan Device Prophylaxis: SCD's VTE Pharm Prophylaxis ordered?: No Code Visit Surgery Charges CPT - 99509 ICD-10 - C44.622, Z85.828, Z87.891 79688 C44.622, Z85.828, Z87.891 89574 L57.0, Z85.828, Z87.891 93143 L57.0, Z85.828, Z87.891 35512 D49.2, Z85.828, Z87.891 60222 D49.2, Z85.828, Z87.891 72999 D49.2, Z85.828, Z87.891 05/07/18 1206 <Electronically signed by Mary Ann Dudley MD> Date Mary Ann Dudley MD CC: Alvin Hughes III, MD; Mary Ann Dudley MD Signed PLASTIC SURGERY Observed: 05/06/2018 Status: F Source: MOTT VISIT REPORT 10:01 PM [facility] REPOSITORY [facility] Plastic AND Reconstructive Surgery [facility] [address] [address] OFFICE VISIT Date of Service: 05/04/18 MR#: [id number] Acct: [id number] Name: VICKI RANDLE Rep #: [id number] : 1945 Provider: Mary Ann Dudley MD Age/Sex: 72/M Location: [facility] Status: Signed Intake Vital Signs05/04/18 Body Mass Index (BMI) 35.2 05/04/18 Blood Pressure 116/72 05/04/18 Blood Pressure Location Lt brachial 05/04/18 Blood Pressure Position Sitting 05/04/18 Respiratory Rate 18 Intake Visit Reasons: postop surgery 04/28/18 Administrative Intern Required: No Accompanied by: None Is patient in pain?: Yes (RIGHT HAND PAIN DULL ACHING) Pain scale (1-10): 2 Allergies adhesive Adverse Reaction (Verified 05/04/18 15:03) Itching atorvastatin [From Lipitor] Adverse Reaction (Verified 05/04/18 15:03) Other rosuvastatin calcium [From Crestor] Adverse Reaction (Verified 05/04/18 15:03) ACHING Medications Finasteride [Proscar] 5 mg PO DAILY 11/18/13 [History Confirmed 04/28/18] Omeprazole [Prilosec] 20 mg PO DAILY 11/18/13 [History Confirmed 04/28/18] Tamsulosin HCl [Flomax] 0.4 mg PO DAILY 11/18/13 [History Confirmed 04/28/18] Fluoxetine HCl [Prozac] 20 mg PO DAILY 12/27/16 [History Confirmed 04/28/18] brimonidine 0.2 % eye drops 1 drp OPHTHALMIC BID ml 08/05/17 [History Confirmed 04/28/18] timolol maleate 0.5 % eye drops 1 drp OPHTHALMIC BID 08/05/17 [History Confirmed 04/28/18] Imiquimod 1 applic TOPICAL 5XW 09/09/17 [History Confirmed 04/28/18] Carvedilol [Coreg (Beta Junito)] 3.125 mg PO BID #60 tab 09/10/17 [Rx Confirmed 04/28/18] Amlodipine [Norvasc] 10 mg PO QHS 04/21/18 [History Confirmed 04/28/18] Clindamycin HCl [Cleocin] 300 mg PO TID #21 cap 04/28/18 [Rx] Lactobacillus Acidophilus/Fos [Acidophilus Probiotic Tablet] 1 ea PO BID #20 tab 04/28/18 [Rx] PFSH Medical History Abdominal aortic aneurysm (AAA) (Acute) Neoplasm of skin of left cheek (Chronic) Neoplasm of skin of forearm (Chronic) Neoplasm of skin of hand (Chronic) Neoplasm of skin of ear (Chronic) 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) Neoplasm of skin of upper arm (Chronic) Personal history of skin cancer (Chronic) 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) AAA (abdominal aortic aneurysm) (Acute) ACTINIC LESION WITH SEVERE ATYPIA (Acute) ATYPICAL SQUAMOUS EPITHELIAL LESION WITH SOLAR KERATOSIS (Acute) ATYPICAL SQUAMOUS LESION LEFT PREAURICULAR AREA (Acute) Actinic keratosis (Acute) Actinic skin damage (Acute) Basal cell carcinoma (Acute) Carpal tunnel syndrome (Acute) Cataract (Acute) GERD (gastroesophageal reflux disease) (Acute) Hyperlipidemia (Acute) INFLAMED ACTINIC KERATOSIS (Acute) INFLAMED ACTINIC KERATOSIS RIGHT VOLAR FOREARM (Acute) Nodule of right lung (Acute) Prostate enlargement (Acute) Pulmonary emphysema (Acute) SCATTERED ACTINIC DAMAGE ON FACE AND UPPER EXTREMITIES (Acute) Seborrheic keratosis (Acute) Situational depression (Acute) Solar keratosis (Acute) Squamous cell carcinoma (Acute) Squamous cell carcinoma in situ (Acute) Squamous cell carcinoma in situ (Acute) Squamous cell carcinoma in situ (Acute) Venous insufficiency of both lower extremities (Acute) Hypertension (Chronic) Surgical History EXCISION ATYPICAL SQUAMOUS LESION (Acute) EXCISION LESIONS AND SKIN CANCERS (Acute) EXCISION OF SKIN CANCER FACE AND HANDS (Acute) H/O knee surgery (Acute) History of basal cell carcinoma excision (Acute) History of carpal tunnel surgery (Acute) History of cholecystectomy (Acute) History of squamous cell carcinoma excision (Acute) History of squamous cell carcinoma excision (Acute) Hx of cataract surgery (Acute) INTRADERMAL EXCISION LESIONS (Acute) S/P AAA repair (Acute) Family History Sister Diabetes Social History housing: house Smoking Status: Never smoker second hand exposure: No quit status: has quit before alcohol intake: current details: [employer] SOCIAL substance use type: does not use what type of physical activity do you participate in: other seatbelt use: always do you feel safe at home: Yes additional social history: SUN EXPOSURE: FREQUENTLY HPI postop surgery 04/28/18: Details: Postop visit from his recent surgery on 04/28/18 where he underwent excision 2.1 cm squamous cell carcinoma dorsum right hand by index finger with FTSG from left flank (16.8 cm2) and excision 1 cm actinic keratosis with moderate atypia left postauricular area by earlobe with rhomboid transposition skin flap reconstruction (6.5 cm2) and excision 6 mm actinic keratosis with moderate atypia left postauricular area near occipital hairline with rhomboid transposition skin flap reconstruction (4 cm2) and intradermal excision 6 mm lesion dorsal radial aspect right wrist and excision 6 mm lesion left outer distal arm with 2.5 cm layered closure. Comes in today with some minor incisional discomfort. Skin graft dressing dorsum right hand removed today. The skin graft shows good adherence and good vascular ingrowth and 100% take. Apply antibiotic ointment to the skin graft daily. The donor incision left flank is dry and intact. The incision left outer distal arm is dry and intact. The flap incisions x 2 left postauricular area (by earlobe and near occipital hairline) are dry and intact and healing. The wound dorsal radial aspect right wrist is clean and healing. Pathology was discussed with the patient. The lesion dorsum right hand by index finger was a squamous cell carcinoma, keratoacanthoma type, completely excised. The lesion dorsal radial aspect right wrist was an actinic keratosis with mild to moderate atypia. The lesion left outer distal arm was an actinic keratosis with mild atypia. The lesion left postauricular area by earlobe was an actinic keratosis with mild to moderate atypia. The lesion left postauricular area near occipital hairline was an actinic keratosis with mild to moderate atypia. Half the sutures were removed today from the skin flaps x2 on the left postauricular area. Continue antibiotic ointment to the incisions daily. Continue SHIMON wrap to the left arm for compression. Keep healed elevated. Keep right hand elevated. Followup one week to remove the remaining sutures. Assessment AND Plan Problems 1. 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 Personal history of skin cancer Z85.828 3. Former smoker Z87.891 4. 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 Personal history of skin cancer Z85.828 Former smoker Z87.891 Actinic keratosis L57.0 05/06/182200 <Electronically signed by Mary Ann Dudley MD> Date Mary Ann Dudley MD Cosigner Signature: Date (if applicable) CC: HISTORY AND PHYSICAL Observed: 04/29/2018 Status: F Source: MOTT EXAM 11:00 PM [facility] REPOSITORY [facility] Medical Records Department [address] [place] [id number] History and Physical 04/27/18 2321 MR#: [id number] Acct: [id number] Name: VICKI RANDLE Rep #: [id number] : 1945 72 From: Mary Ann Dudley MD PCP: Alvin Hughes III, MD Status: [facility] Y [place] [facility] [place] and Physical Date of Admission: 04/28/18 HISTORY OF PRESENT ILLNESS Comes in today for evaluation for TBSE. He has noticed enlarging lesions on his left cheek, dorsum right hand by index finger, left outer proximal arm, left postauricular area by earlobe, left postauricular area near occipital hairline, and proximal nasal dorsum by nasal root. These lesions have increased in size over the last several months and have developed some crustiness. He denies any trauma. He denies any fever. He has used Aldara in the past with success. He states he recently had surgery for a AAA repair by Dr. Hughes. He had used Aldara recently for the lesions on his superior helical rim right ear, base of right thumb, dorsum left hand by first web space, and dorsal distal left forearm. He tolerated it well. 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 Atypical squamous lesion left preauricular area Inflamed actinic keratosis dorsum left hand by ring finger Actinic keratosis with moderate to focal severe atypia left medial arm Actinic keratosis nasal dorsum Actinic keratosis with focal moderate to severe atypia right posterior ear Solar keratosis dorsum right hand by first web space Inflamed actinic keratosis right volar forearm Solar keratosis left lateral forehead Solar keratosis right lateral forehead by eyebrow Solar keratosis left distal dorsal forearm Solar keratosis left distal radial forearm Actinic damage left distal dorsal forearm Actinic damage left distal dorsal radial forearm Actinic damage dorsum bilateral hands Actinic damage right dorsal radial wrist near the base of the thumb Actinic damage right dorsal radial midforearm Solar keratosis mid dorsal right forearm Squamous cell carcinoma in situ and solar keratosis distal dorsal right forearm Actinic lesion with severe atypia dorsal right hand by the base of the thumb Squamous cell carcinoma in situ with solar keratosis dorsum left hand by base of thumb Squamous cell carcinoma in situ left lower back Seborrheic keratosis left upper back Actinic lesion left nasal tip Actinic lesion with severe atypia middle helical rim left ear Actinic lesion with moderate atypia dorsum right hand distally and by the long finger Actinic lesions cluster 2 with moderate atypia dorsum left hand proximally by long finger 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 Actinic keratosis with severe atypia left arm Basal cell carcinoma right posterior auricular area, anterior Squamous cell carcinoma dorsal aspect mid right forearm Actinic keratosis with moderate to severe atypia right postauricular area, posterior Actinic keratosis with focal squamous cell carcinoma in situ dorsum right hand by ring finger Actinic keratosis with severe atypia dorsum left hand by first webspace Actinic keratosis with severe atypia dorsal radial distal left forearm by rest Actinic keratosis left upper neck, upper Actinic keratosis with moderate to severe atypia left lateral neck, lower actinic keratosis with moderate atypia left posterior arm PAST SURGICAL HISTORY: Excision of skin cancer face and hands Carpal tunnel surgery bilaterally Cholecystectomy Knee surgery 5 Cataract surgery Excision 11 mm basal cell carcinoma left dorsal mid forearm with rhomboid transposition skin flap reconstruction and excision 12 mm squamous cell carcinoma right dorsal mid forearm with full-thickness skin graft reconstruction from proximal right forearm (10 cm 's) on November 07, 2010 Excision 7 mm atypical squamous lesion left preauricular area with 25 mm delayed closure and intradermal excision 1 cm actinic lesion superior helical rim left ear and intradermal excision 7 mm echogenic lesion right posterior ear and intradermal excision 7 mm actinic lesion nasal dorsum and intradermal excision 5 mm lesion dorsum left hand and intradermal excision 5 mm lytic lesion left medial arm and intradermal excision 6 mm lesion right volar forearm on May 10, 2011 Intradermal excision 1 cm lesion dorsum right hand by the index finger and intradermal excision 5 mm lesion dorsum right hand first webspace and intradermal excision 5 mm lesion dorsum left hand by first webspace and intradermal excision 5 mm lesion left distal radial forearm and intradermal excision 5 mm lesion left distal dorsal forearm and intradermal excision 6 mm lesion right lateral forehead by the lateral eyebrow and intradermal excision 5 mm lesion left lateral forehead on August 22, 2011 Excision 1 cm lesion left upper back with 3 cm layered closure and excision 2.1 cm lesion left lower back 6.5 cm layered closure and intradermal excision 1 cm squamous cell carcinoma in situ distal dorsal right forearm and intradermal excision 6 mm squamous cell carcinoma in situ dorsum right hand by the base of thumb and intradermal excision 6 mm squamous cell carcinoma in situ dorsum left hand by base of thumb on November 19, 2012 Excision 6 mm squamous cell carcinoma in situ superior helical rim left ear with helical rim advancement skin flap reconstruction and intradermal excision 5 mm actinic lesion with severe atypia middle helical rim left ear and and intradermal excision 6 mm actinic lesion with severe atypia dorsal base right thumb and intradermal excision 6 mm actinic lesion with moderate atypia dorsum right hand distally by the long finger and intradermal excision 6 mm actinic lesion cluster 3 with moderate atypia dorsum left hand proximally by the long finger on November 25, 2013 Excision 10 mm 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 and first stage complex left ear reconstruction with left postauricular advancement skin flap reconstruction and placement of cartilage graft from right ear and excision 7 mm actinic keratosis with severe atypia left arm with 5 cm layered closure on April 04, 2015 Second stage complex left ear reconstruction with division and inset of postauricular skin flap and reconstruction left postauricular donor site wound with advancement skin flap on April 25, 2015 Intradermal excision 7 mm actinic keratosis left lateral neck, lower, and intradermal excision 2.3 cm actinic keratosis left lateral neck, upper, and intradermal excision 5 mm actinic keratosis dorsum right hand by ring finger and intradermal excision 10 mm actinic keratosis dorsum left hand by first webspace and intradermal excision 8 mm actinic keratosis dorsal radial distal left forearm by wrist and excision 15 mm squamous cell carcinoma dorsal aspect mid right forearm with rhomboid transposition skin flap reconstruction protheses 14.5 cm ) and intradermal excision 8 mm actinic keratosis left posterior arm and excision 1 cm basal cell carcinoma right postauricular area, anterior, with rhomboid transposition skin flap reconstruction and intradermal excision 6 mm actinic keratosis right postauricular area, posterior on March 19, 2016 MEDICATIONS: Aspirin Zetia Omeprazole Flomax Lisinopril Aldara ALLERGIES: Adhesive tape FAMILY HISTORY: Negative for skin cancer, negative for bleeding disorders, and positive for diabetes SOCIAL HISTORY: Patient is a former smoker. Sometimes he starts up again but he has recently quit. He chews tobacco now. Patient does not drink alcohol. REVIEW OF SYSTEMS General-denies fever, fatigue, and weight loss. Eyes-denies eye pain. His cataracts. Denies glaucoma. ENT-denies nasal congestion sore throat. Cardiovascular-denies chest pain, fatigue, lightheadedness, and shortness of breath with exertion. Respiratory-complains of shortness of breath. Denies cough. Patient has a history of smoking and has quit. Chews tobacco now. Gastrointestinal-denies nausea, vomiting, diarrhea, and constipation. Genitourinary-complains of urinary frequency. Denies hematuria. Has prostate enlargement. Musculoskeletal-denies back pain, stiffness, muscle weakness, or arthritis. Had bilateral carpal tunnel surgery. Had knee surgeries 5. Skin-he has enlarging lesions on his left cheek, dorsum right hand by index finger, left outer proximal arm, left postauricular area by earlobe, left postauricular area near occipital hairline, and proximal nasal dorsum by the nasal root. He has had multiple skin cancers removed in the past and multiple actinic lesions removed in the past. He had used Aldara recently on the lesions on his superior helical rim right ear, base right thumb, dorsum left hand by first web space, dorsal distal left forearm without problem. Neuro-denies poor balance, headaches, or weakness. Psych-denies anxiety depression. Endocrine-denies excessive thirst or urination. Hematologic-denies abnormal bruising and bleeding. PHYSICAL EXAMINATION General - Alert and oriented. HEENT -pupils equal round and reactive to light. Extraocular muscles intact. Throat is clear. On his left ear the flap on the middle helical rim is healing satisfactory with good contour. On the superior helical rim right ear was a lesion that was treated with Aldara that is smooth and appears healed at this time. On his left cheek is a 6 mm lesion that is slightly raised in configuration. Has some crustiness. Has irregular borders. No ulceration. Lesion is nontender. On the proximal nasal dorsum near the nasal root is a 6 mm lesion that is scabby. Has irregular borders. No ulceration. Lesion is nontender. On the left postauricular area by the earlobe is a 1 cm lesion that is crusty. Has irregular borders. No ulceration. Lesion is nontender. There is a mobile soft tissue mass adjacent to this crusty lesion that measures 1.5 cm. On the left postauricular area near the occipital hairline is a 6 mm lesion that is scabby. Has irregular borders. No ulceration. Lesion is nontender. Neck-no cervical adenopathy. No masses. No suspicious lesions noted. Chest wall-No suspicious lesions noted Lungs-Clear to auscultation. Heart-regular rate and rhythm. Abdomen-soft and nondistended. No suspicious lesions noted. Back-no suspicious lesions noted. Extremities-no clubbing cyanosis or edema with full range of motion of all joints. On the dorsum right hand by index finger is a 2.1 cm lesion that is slightly raised in configuration. Has some crustiness. Has irregular borders. No ulceration. Lesion is nontender. On the base of his right thumb was a lesion that has been treated with Aldara and is smooth and appears healed at this time. On the dorsum left hand by first webspace was a lesion that has been treated with Aldara and is smooth and appears healed at this time. On the dorsal distal left forearm was a lesion that has been treated with Aldara and is smooth and appears healed at this time. On the left outer proximal arm is a 6 mm lesion that is crusty and slightly raised in configuration. Has irregular borders. No ulceration. Lesion is nontender. No axillary adenopathy. Radial pulses are palpable. Neuro--cranial nerves II through XII grossly intact. ASSESSMENT 1. 2.1 cm lesion dorsum right hand by index finger. 2. 6 mm lesion left cheek. 3. 6 mm lesion left outer proximal arm. 4. 1 cm lesion left postauricular area by earlobe. 5. 6 mm lesion left postauricular area near occipital hairline. 6. 6 mm lesion proximal nasal dorsum near the nasal root. 7. Lesion superior helical rim right ear, appears healed after Aldara. 8. Lesion base right thumb, appears healed after Aldara. 9. Lesion dorsum left hand by first webspace, appears healed after Aldara. 10. Lesion dorsal distal left forearm, appears healed after Aldara. 11. Personal history of skin cancer. 12. Former smoker. PLAN We will write another prescription for Aldara that he will use on these lesions because of his history of skin cancer and actinic lesions. Some of these lesions may be actinic in nature and would benefit from the use of Aldara. The lesions that remain after using Aldara will need excision. Will send the lesions to Pathology for analysis to rule out carcinoma. Reconstruction will be with possible skin grafts or skin flaps. Surgery will be done on an outpatient basis under local anesthesia and IV sedation. He understands how to use the Aldara since he has used it in the past. Since he just had AAA repair, he wants to wait on surgery until April. Patient was informed of the risks and complications of the procedure including alternatives to surgery. These were discussed with the patient personally. Patient voices understanding and wishes to proceed. Some of the risks and complications were included in a form from the [employer]. 04/29/18 2300 <Electronically signed by Mary Ann Dudley MD> Date Mary Ann Dudley MD Cosigner Signature: Date (if applicable) CC: Alvin Hughes III, MD; Mary Ann Dudley MD Signed DISCHARGE INSTRUCTION Observed: 04/28/2018 Status: F Source: GIL 11:25 AM [facility] REPOSITORY [facility] Medical Records Department [address] [place] [address] Instructions for Home/Discharge Instructions 04/28/18 1120 MR#: [id number] Acct: [id number] Name: VICKI RANDLE Rep #: [id number] : 1945 72 From: Mary Ann Dudley MD PCP: Alvin Hughes III, MD Status: REG SD You will use the following diet at home:: No restrictions Discharge Activity: May not drive while taking narcotic pain medications., May Shower - in two days. Place plastic bag over right hand when showering., - - keep head elevated. no heavy lifting. elevate right arm. May shower in (days): 2 - place plastic bag over right hand when showering. May resume sexual activity in: No Restrictions Weight Bearing Status: Weight bearing as tolerated Lifting Restrictions: 20 lbs. Keep extremity elevated above heart level: Right Arm, - - elevate head. Call your doctor if your incision/area has: Continuous Slow Oozing, Sudden Increased Bleeding, Increased Pain/ Swelling, Increased Redness, Foul Smelling Discharge, Swelling at the incision site Call your doctor if you observe: Fever of 101 or Higher, Coldness, Increased Pain, Shortness of breath, Chest pain, Calf discomfort, Uncontrolled pain Suture Line Care: - - apply antibiotic ointment to suture lines daily after left ear dressing and left arm dressing are removed in two days. Change Dressing in (Days):: 6 - will remove right hand dressing in office. Remove Dressing in (days):: 2 - left ear and left arm only. Cleanse incision/area with: - - may shower in two days. Wear plastic bag over right hand when showering. Allergies/Adverse Reactions: Allergies adhesive Adverse Reaction (Verified 02/19/18 18:50) Itching atorvastatin [From Lipitor] Adverse Reaction (Verified 02/19/18 18:50) Other rosuvastatin calcium [From Crestor] Adverse Reaction (Verified 02/19/18 18:50) ACHING Medications to take at Discharge Finasteride [Proscar] 5 mg PO DAILY 11/18/13 Omeprazole [Prilosec] 20 mg PO DAILY 11/18/13 Tamsulosin HCl [Flomax] 0.4 mg PO DAILY 11/18/13 Fluoxetine HCl [Prozac] 20 mg PO DAILY 12/27/16 brimonidine 0.2 % eye drops 1 drp OPHTHALMIC BID ml 08/05/17 timolol maleate 0.5 % eye drops 1 drp OPHTHALMIC BID 08/05/17 Imiquimod 1 applic TOPICAL 5XW 09/09/17 Carvedilol [Coreg (Beta Junito)] 3.125 mg PO BID #60 tab 09/10/17 Amlodipine [Norvasc] 10 mg PO QHS 04/21/18 Clindamycin HCl [Cleocin] 300 mg PO TID #21 cap 04/28/18 Lactobacillus Acidophilus/Fos [Acidophilus Probiotic Tablet] 1 ea PO BID #20 tab 04/28/18 Oxycodone HCl/Acetaminophen [Percocet 5/325] 1 tab PO 4X/DAY PRN PRN 7 Days #30 tab 04/28/18 The following prescriptions were given: Oxycodone HCl/Acetaminophen [Percocet 5/325] 1 tab PO 4X/DAY PRN PRN 7 Days #30 tab PRN Reason: Pain Lactobacillus Acidophilus/Fos [Acidophilus Probiotic Tablet] 1 ea PO BID #20 tab Clindamycin HCl [Cleocin] 300 mg PO TID #21 cap Primary Care Physician: Alvin Hughes III, MD [Primary Care Provider] - Test Results: Test results from this visit will be discussed in further detail at your follow-up appointment, if applicable. Please Follow Up With: Mary Ann Dudley MD When: friday05/04/18. call [phone] for appt. Proposed Discharge Date: 04/28/18 04/28/18 8729 <Electronically signed by Mary Ann Dudley MD> Date Mary Ann Dudley MD CC: Alvin Hughes III, MD LESION (CHOOSE SITE) Observed: 04/28/2018 Status: F Source: GIL 12:00 AM [facility] REPOSITORY Patient: VICKI RANDLE : 1945 (72/M) Acct Num: [id number] Phys: Mary Ann Dudley MD Unit Num: [id number] [place] [facility] Specimen: [id number] Received: 04/28/18900 Spec Type: Lesion TISSUES 1 TISSUES: A. Skin of hand and finger, NOS B. Skin of external ear, NOS C. Skin of external ear, NOS D. Skin of arm E. Skin of wrist and hand F. Skin of hand and finger, NOS G. Skin of external ear, NOS H. Skin of external ear, NOS - BY HAIRLINE COMMENT Case has been reviewed in consultation with Dr. Mckeon who concurs with the above diagnosis. IDC:AM FROZEN SECTION DIAGNOSIS A. 2.1 cm lesion, dorsum right hand by index finger, biopsy: Squamous cell carcinoma in situ, suspicious for invasive carcinoma. B. 1 cm lesion, left posterior auricular area by earlobe, shave biopsy: Actinic keratosis with moderate atypia. C. 6 cm lesion, left posterior auricular area near occipital hairline, shave biopsy: Actinic keratosis with mild to moderate atypia. SJ:nguyễn 04/28/18 Case has been reviewed in consultation with Dr. Mckeon who concurs with the above diagnosis. IDC:AM GROSS DESCRIPTION A - Received fresh for frozen section diagnosis labeled with the patient's name is a specimen designated 2.1 cm lesion dorsum right hand by index finger. The specimen consists of a piece of barkley-white skin with underlying tissue measuring 2 x 1.5 x 0.5 cm. The skin surface is covered entirely by a nodular lesion. The specimen is inked, serially sectioned and submitted entirely for frozen section diagnosis in two cassettes. B - Received fresh for frozen section diagnosis labeled with the patient's name is a specimen designated 1 cm lesion left postauricular area by earlobe. The specimen consists of a shave biopsy of barkley-white skin measuring 1 x 0.5 x 0.1 cm. The specimen is bisected longitudinally and submitted entirely for frozen section diagnosis in one cassette. C - Received fresh for frozen section diagnosis labeled with the patient's name is a specimen designated 6 mm lesion left postauricular area near occipital hairline. The specimen consists of a shave biopsy of barkley- white skin measuring 1 x 0.5 x 0.5 cm. The specimen is bisected and submitted entirely for frozen section diagnosis in one cassette. D - Received is one container labeled with the patient's name is a specimen designated lesion left distal outer arm, suture at 12 o'clock. The specimen consists of a piece of barkley-white skin ellipse measuring 1.3 x 0.5 cm and up to 0.3 cm in thickness. The specimen is oriented by a suture at 12 o'clock tip. The specimen is inked as follows: 12 o'clock tip - yellow, 6 o'clock tip - green, 3 o'clock margin - black and 9 o'clock margin - blue. The entire specimen is submitted in one cassette. It will be serially sectioned at the time of embedding. E - Received is one container labeled with the patient's name is a specimen designated lesion dorsal radial right wrist. The specimen consists of a shave biopsy of barkley-white skin measuring 0.9 x 0.8 x 0.1 cm. The specimen is inked and submitted entirely in one cassette. It will be bisected at the time of embedding. F - Received is one container labeled with the patient's name is a specimen designated squamous cell carcinoma lesion dorsum right hand by index finger, suture at 12 o'clock. The specimen consists of a round piece of barkley-white skin measuring 3 x 3 x 0.3 cm. The specimen is oriented by a suture at 12 o'clock. The specimen is inked as follows: 12 to 3 o'clock - black, 3 to 6 o'clock - blue, 6 to 9 o'clock - green and 9 to 12 o'clock - yellow. A focal area of ulceration is noted at the surface consistent with site of specimen A. The specimen is serially sectioned and submitted entirely in four cassettes. Cassette 1 contains the 3 o'clock margin and cassette 4 contains the 9 o'clock margin. G - Received is one container labeled with the patient's name is a specimen designated actinic keratosis moderate atypia left postauricular area by earlobe , suture at 12 o'clock. The specimen consists of a william- shaped piece of barkley -white skin ellipse measuring 1.7 x 1.5 and up to 0.2 cm in thickness. The specimen is inked as follows: 12 to 3 o'clock - black, 3 to 6 o'clock - blue, 6 to 9 o'clock - green and 9 to 12 o'clock - yellow. A focal area of ulceration is noted consistent with site of specimen B. The specimen is serially sectioned and submitted entirely in one cassette. H - Received is one container labeled with the patient's name is a specimen designated actinic keratosis moderate atypia left postauricular near occipital hairline, suture at 12 o'clock. The specimen consists of a william-shaped piece of barkley-white skin ellipse measuring 1.5 x 1.7 x 0.3 cm. The specimen is inked as follows: 12 to 3 o'clock - black, 3 to 6 o'clock - blue, 6 to 9 o' clock - green and 9 to 12 o'clock - yellow. A focal area of ulceration is noted consistent with site of specimen C. The specimen is serially sectioned and submitted entirely in one cassette. / SJ:rg 04/28/18 TC:0 CPT: 95574 x8, 47567 x3 HEADER OPERATION: Excision lesion dorsum right hand by index finger with frozen PRE-OP DIAGNOSIS: 2.1 cm lesion dorsum, right hand by index finger; 6 mm lesion left cheek; 6 mm lesion left outer proximal arm; 1 cm lesion left postauricular area by earlobe; 6 mm lesion left proximal nasal dorsum near nasal root; personal history skin cancer TISSUE SUBMITTED: A - 2.1 cm lesion dorsum right hand by index finger sent for FS at 0856, B - 1 cm lesion left postauricular area by earlobe sent for FS at 0856, C - 6 mm lesion left postauricular area near occipital hairline sent for FS at 0858, D - Lesion left distal outer arm, suture at 12 o'clock, E - Lesion dorsal radial right wrist, F - Squamous cell carcinoma lesion dorsum right hand by index finger, suture at 12 o'clock, G - Actinic keratosis moderate atypia left postauricular area by earlobe, suture at 12 o'clock, H - Actinic keratosis moderate atypia left postauricular area near occipital hairline, suture at 12 o'clock MICROSCOPIC DESCRIPTION Slides are reviewed. MICROSCOPIC DIAGNOSIS A. 2.1 cm lesion, dorsum right hand by index finger, shave biopsy: Invasive well differentiated squamous cell carcinoma, keratoacanthoma type. B. 1 cm lesion, left posterior auricular area by earlobe, shave biopsy: Inflamed actinic keratosis with moderate atypia. Solar elastosis. C. 6 cm lesion, left posterior auricular area near occipital hairline, shave biopsy: Actinic keratosis with mild atypia. Solar elastosis. D. Lesion, left distal outer arm, excisional biopsy: Actinic keratosis with mild atypia. Solar elastosis. E. Lesion, dorsal radial right wrist, shave biopsy: Inflamed actinic keratosis with mild to moderate atypia and solar elastosis. F. Squamous cell carcinoma lesion, dorsal right hand by index finger, excisional biopsy: Invasive well differentiated squamous cell carcinoma, completely excised. Perineural invasion is not seen. Actinic keratosis and solar elastosis. Focal ulceration, consistent with site of specimen A. G. Actinic keratosis, moderate atypia, left postauricular area by earlobe, excisional biopsy: Actinic keratosis with mild to moderate atypia. Solar elastosis. Focal ulceration, consistent with site of specimen B. H. Actinic keratosis, moderate atypia, left postauricular area near occipital hairline, excisional biopsy: Actinic keratosis with mild atypia. Solar elastosis. Focal ulceration, consistent with site of specimen C. SJ:nguyễn 04/29/18 Signed Lambert Alexandre 04/29/18 <signature on file> Performed By: #### PLES #### [facility] [address] [place] [address]. [place], [address] CBC Collected: 03/16/2018 Status: F Source: [place] J[facility] 3:43 PM [facility] REPOSITORY TYPE CODE TESTS RESULT OUT OF REFERENCE UNITS RANGE LAB WBC 3.70-11.00 k/uL WBC 6.38 LAB RBC 4.20-6.00 m/uL RBC 5.21 LAB HGB 13.0-17.0 g/dL Hemoglobin 14.9 LAB HCT 39.0-51.0 % Hematocrit 47.2 LAB MCV 80.0-100.0 fL MCV 90.6 LAB MCH 26.0-34.0 pG MCH 28.6 LAB MCHC 30.5-36.0 g/dL MCHC 31.6 LAB RDWCV 11.5-15.0 % RDW-CV 14.0 LAB PLTCT 150-400 k/uL Platelet Count 233 LAB MPV 9.0-12.7 fL MPV 10.7 LAB ABSNUC <0.01 k/uL Absolute nRBC <0.01 Performed By: #### CBC #### [facility] [address] [place], [place] [address] PROGRESS Observed: 03/16/2018 Status: COMPLETED Source: [place] 2:[address] [facility] REPOSITORY HNO ID: [id number] Author: Alvin Hughes III Service: (none) Author Type: Physician Type: Progress Notes Filed: 03/16/2018 5:49 PM Note Text: SUBJECTIVE: This is a 72 year old male that is here today for 1. fell at home several wks ago landing on face. while going into house. No HALL though he had bilat infraorbital eccymosis. 2. Went to ER 02/19 . to eval swelling medial L knee and medial L thigh=documented DVT L medial thigh -- pt on eliquis 3. hyperlipidemia--pt changed his diet after hearing of his high lipids in Dec. PAST MEDICAL HISTORY Diagnosis Date - AAA (abdominal aortic aneurysm) ([facility]) 02/06/2012 01/10/17: CT abd 4.8 cm - Actinic keratosis - Benign hypertension 07/13/2015 - Bruit right carotid artery - Esophageal reflux Gastroesophageal reflux - Facet arthritis of lumbar region ([facility]) 06/27/2014 - Hypertrophy of prostate without urinary obstruction and other lower urinary tract symptoms (LUTS) Hypertrophy of the prostate w/o obstruction - Left leg DVT ([facility]) 02/19/2018 - Mixed hyperlipidemia Hyperlipidemia - Neoplasm of skin of hand left cheek, upper arm, ear, forearm, nose - Nodule of right lung 04/17/2012 01/08/2013: CT chest 4 mm, unchanging nodule==suspect benign - Other specified disorder of gallbladder 09/07/07 - Personal history of colonic polyps - Personal history of skin cancer - Pulmonary emphysema ([facility]) 12/31/2016 - Sebaceous cyst - Situational depression 07/03/2016 - Skin cancer Non-melanoma. - Squamous cell carcinoma 04/04/2015 See scanned documents - Venous insufficiency of both lower extremities 07/01/2014 Current Outpatient Prescriptions on File Prior to Visit: finasteride (PROSCAR) 5 mg tablet Take 1 tablet by mouth once daily. amLODIPine (NORVASC) 5 mg tablet Take 5 mg by mouth once daily. carvedilol (COREG) 3.125 mg tablet Take 1 tablet by mouth twice daily. omeprazole (PRILOSEC) 20 mg capsule Take 1 capsule by mouth every morning. tamsulosin ER (FLOMAX) 0.4 mg cp24 Take 1 capsule by mouth once daily. FLUoxetine (PROZAC) 20 mg capsule Take 1 capsule by mouth once daily. brimonidine (ALPHAGAN) 0.2 % ophthalmic solution Use 1 Drop in both eyes twice daily. cholecalciferol (VITAMIN D3) 1,000 unit tab tablet Take 1,000 Units by mouth once daily. timolol maleate (TIMOPTIC) 0.5 % ophthalmic solution Use 1 Drop in both eyes twice daily. aspirin, enteric coated (ECOTRIN LOW STRENGTH) 81 mg EC tablet Take 1 tablet by mouth once daily. No current facility-administered medications on file prior to visit. FAMILY HISTORY Problem Relation Age of Onset - Emphysema Mother - Arthritis Sister - Hypertension Maternal Grandmother Social History Substance Use Topics - Smoking status: Former Smoker Packs/day: 1.00 Years: 30.00 Types: Cigarettes Quit date: 06/02/1988 - Smokeless tobacco: Current User Types: Chew Comment: Brief relaps after of spouse. - Alcohol use Yes Comment: Seldom BP 102/64 Pulse 78 Resp 16 Ht 185.4 cm (6' 1) Wt 120.7 kg (266 lb) BMI 35.09 kg/m? . OBJECTIVE: APPEARANCE Well appearing, alert, in no acute distress, well-hydrated, well nourished. and eccymoses infero-orbital areas bilat. NOSE/SINUS no nasal tenderness or obvious deformity EXTREMITIES no lower leg edema bilat. ASSESSMENT: facial contusions--healing DVT LLE on Eliquis (started 12/2017) hyperlipidemia--not at goal PLAN: healthy weight losing diet and regular exercise eat less sugar, bread, potato, pasta, rice, corn, corn syrup, saturated fats CBC with platelet lipids in April flu shot given JACKSON Gay MD, III MD PROGRESS Observed: 03/16/2018 Status: COMPLETED Source: [place] 2:[address] [facility] REPOSITORY O ID: [id number] Author: Sera Lee MA Service: (none) Author Type: Plant Controls Specialist Type: Progress Notes Filed: 03/16/2018 5:49 PM Note Text: 72 year old male here for INACTIVATED INFLUENZA VACCINE. [id number] Season Patient is identified by name and date of : Yes [] CONTRAINDICATIONS color enhanced section Age less than 6 months? No Allergy to eggs, chicken, chicken feathers, or chicken dander? No Allergy to thimerosal (a preservative) or formaldehyde, gelatin? No History of severe reaction to any vaccine component or a previous dose of influenza vaccination? No History of Guillain-Unity Syndrome within 6 weeks after a previous influenza vaccine? No Patient is not moderately or severely ill? No Current temperature greater or equal to 100.4F? No History of Bone Marrow Transplant prior 6 months or solid organ transplant in the past 3 months ? No History of fainting after a prior injection or medical procedure? No- ? If patient has fainted in the past, the CDC recommends sitting or lying down for 15 minutes after the vaccination. [] VERIFICATION color enhanced section Was the answer Yes for any of the above contraindications? No contraindications present. Acceptable to proceed with vaccine. Patient/guardian agrees the above answers are true to the best of their knowledge? Yes Flu vaccine information sheet given? Yes [facility] details of immunizations adminstered today. Patient age: [age] year old For The 2758-1638 Flu Season 6-35 months old: Fluzone 0.25 ml - IM (Preservative Free) 3 years of age: Fluzone 0.5 ml - IM (Preservative Free) 3 years and older: Fluzone 0.5 ml- IM-(with Preservatives) 65+ years old: 2-49 years old Fluzone High-Dose 0.5 ml - IM (Preservative Free) FLUMIST- intranasal REMEMBER: If patient is less than 9 years of age and this is the first vaccine of Influenza to be received in any flu season, they should receive a second dose in one months time. CNOV Observed: 03/16/2018 Status: COMPLETED Source: [place] 2:40 PM [facility] REPOSITORY Office Visit (FAMPWS) VICKI RANDLE ([id number]) 1945 M Date Time Provider Department 03/16/18 2:40 PM ALVIN HUGHES III FAMPWS During your visit today, we recorded the following information about you: Pulse Respiration Blood pressure Weight 78/minute 16/minute 102/64 120.7 kg Height 1.854 m [facility] 03/16/2018 5:49 PM Signed 72 year old male here for INACTIVATED INFLUENZA VACCINE. 9966-8586 Season Patient is identified by name and date of : Yes [] CONTRAINDICATIONS color enhanced section Age less than 6 months? No Allergy to eggs, chicken, chicken feathers, or chicken dander? No Allergy to thimerosal (a preservative) or formaldehyde, gelatin? No History of severe reaction to any vaccine component or a previous dose of influenza vaccination? No History of Guillain-Unity Syndrome within 6 weeks after a previous influenza vaccine? No Patient is not moderately or severely ill? No Current temperature greater or equal to 100.4F? No History of Bone Marrow Transplant prior 6 months or solid organ transplant in the past 3 months ? No History of fainting after a prior injection or medical procedure? No- ? If patient has fainted in the past, the CDC recommends sitting or lying down for 15 minutes after the vaccination. [] VERIFICATION color enhanced section Was the answer Yes for any of the above contraindications? No contraindications present. Acceptable to proceed with vaccine. Patient/guardian agrees the above answers are true to the best of their knowledge? Yes Flu vaccine information sheet given? Yes See immunization activity in [facility] for details of immunizations adminstered today. Patient age: [age] year old For The 0906-4495 Flu Season 6-35 months old: Fluzone 0.25 ml - IM (Preservative Free) 3 years of age: Fluzone 0.5 ml - IM (Preservative Free) 3 years and older: Fluzone 0.5 ml- IM-(with Preservatives) 65+ years old: 2-49 years old Fluzone High-Dose 0.5 ml - IM (Preservative Free) FLUMIST- intranasal REMEMBER: If patient is less than 9 years of age and this is the first vaccine of Influenza to be received in any flu season, they should receive a second dose in one months time. Alvin Hughes III MD 03/16/2018 5:49 PM Signed SUBJECTIVE: This is a 72 year old male that is here today for 1. fell at home several wks ago landing on face. while going into house. No HALL though he had bilat infraorbital eccymosis. 2. Went to ER 02/19 . to eval swelling medial L knee and medial L thigh=documented DVT L medial thigh -- pt on eliquis 3. hyperlipidemia--pt changed his diet after hearing of his high lipids in Dec. PAST MEDICAL HISTORY Diagnosis Date - AAA (abdominal aortic aneurysm) ([facility]) 02/06/2012 01/10/17: CT abd 4.8 cm - Actinic keratosis - Benign hypertension 07/13/2015 - Bruit right carotid artery - Esophageal reflux Gastroesophageal reflux - Facet arthritis of lumbar region ([facility]) 06/27/2014 - Hypertrophy of prostate without urinary obstruction and other lower urinary tract symptoms (LUTS) Hypertrophy of the prostate w/o obstruction - Left leg DVT ([facility]) 02/19/2018 - Mixed hyperlipidemia Hyperlipidemia - Neoplasm of skin of hand left cheek, upper arm, ear, forearm, nose - Nodule of right lung 04/17/2012 01/08/2013: CT chest 4 mm, unchanging nodule==suspect benign - Other specified disorder of gallbladder 09/07/07 - Personal history of colonic polyps - Personal history of skin cancer - Pulmonary emphysema (HCC) 12/31/2016 - Sebaceous cyst - Situational depression 07/03/2016 - Skin cancer Non-melanoma. - Squamous cell carcinoma 04/04/2015 See scanned documents - Venous insufficiency of both lower extremities 07/01/2014 Current Outpatient Prescriptions on File Prior to Visit: finasteride (PROSCAR) 5 mg tablet Take 1 tablet by mouth once daily. amLODIPine (NORVASC) 5 mg tablet Take 5 mg by mouth once daily. carvedilol (COREG) 3.125 mg tablet Take 1 tablet by mouth twice daily. omeprazole (PRILOSEC) 20 mg capsule Take 1 capsule by mouth every morning. tamsulosin ER (FLOMAX) 0.4 mg cp24 Take 1 capsule by mouth once daily. FLUoxetine (PROZAC) 20 mg capsule Take 1 capsule by mouth once daily. brimonidine (ALPHAGAN) 0.2 % ophthalmic solution Use 1 Drop in both eyes twice daily. cholecalciferol (VITAMIN D3) 1,000 unit tab tablet Take 1,000 Units by mouth once daily. timolol maleate (TIMOPTIC) 0.5 % ophthalmic solution Use 1 Drop in both eyes twice daily. aspirin, enteric coated (ECOTRIN LOW STRENGTH) 81 mg EC tablet Take 1 tablet by mouth once daily. No current facility-administered medications on file prior to visit. FAMILY HISTORY Problem Relation Age of Onset - Emphysema Mother - Arthritis Sister - Hypertension Maternal Grandmother Social History Substance Use Topics - Smoking status: Former Smoker Packs/day: 1.00 Years: 30.00 Types: Cigarettes Quit date: 06/02/1988 - Smokeless tobacco: Current User Types: Chew Comment: Brief relaps after of spouse. - Alcohol use Yes Comment: Seldom BP 102/64 Pulse 78 Resp 16 Ht 185.4 cm (6' 1) Wt 120.7 kg (266 lb) BMI 35.09 kg/m? . OBJECTIVE: APPEARANCE Well appearing, alert, in no acute distress, well- hydrated, well nourished. and eccymoses infero-orbital areas bilat. NOSE/SINUS no nasal tenderness or obvious deformity EXTREMITIES no lower leg edema bilat. ASSESSMENT: facial contusions--healing DVT LLE on Eliquis (started 12/2017) hyperlipidemia--not at goal PLAN: healthy weight losing diet and regular exercise eat less sugar, bread, potato, pasta, rice, corn, corn syrup, saturated fats CBC with platelet lipids in April flu shot given JACKSON Gay MD, III MD Frank A Cebul, III MD 03/16/2018 3:10 PM Signed PLAN: healthy weight losing diet and regular exercise eat less sugar, bread, potato, pasta, rice, corn, corn syrup, saturated fats CBC with platelet lipids in April flu shot given Alvin Hughes III MD Referring Provider: SELF [[id number]] Allergies As of Date: 03/16/2018 Noted Allergy Reaction LIPITOR (ATORVASTATIN CALCIUM) 03/11/2005 5 - Intolerance medical tape [Other] 03/11/2005 9 - Itching ROSUVASTATIN CALCIUM 03/02/2017 5 - Intolerance OGUATIP-IFP-QOS REDUCTASE INHIBIT*01/10/2018 17 - Myalgia Date Reviewed: 03/16/2018 Reviewed by: Sera ([facility]) DADA Lee - Fully Assessed Reason for Visit: ED Follow-up [821] Cmt: x1 month ago Imm/Inj [58] Cmt: Flu Vaccine Reason For Visit History Recorded Primary Visit Diagnosis:Acute deep vein thrombosis (DVT) of femoral vein of left lower extremity (HCC) [I82.412] Other Visit Diagnoses:Need for vaccination [Z23] Contusion of face, sequela [S00.83XS] Chronic anticoagulation [Z79.01] Hyperlipidemia with target LDL less than 100 [E78.5] Order(s):INFLUENZA SEASONAL HIGH DOSE AGE 65+ [09580ASY] Order #: [id number] CBC [SQCBC] Order #: [id number] FUTURE LIPID PANEL BASIC [SQLIPB] Order #: [id number] FUTURE Prescriptions as of 03/16/2018 Sig: FINASTERIDE 5 MG TABLET Take 1 tablet by mouth once d* AMLODIPINE 5 MG TABLET Take 5 mg by mouth once daily. CARVEDILOL 3.125 MG TABLET Take 1 tablet by mouth twice * OMEPRAZOLE 20 MG CAPSULE,ALEKS* Take 1 capsule by mouth every* TAMSULOSIN 0.4 MG CAPSULE Take 1 capsule by mouth once * FLUOXETINE 20 MG CAPSULE Take 1 capsule by mouth once * BRIMONIDINE 0.2 % EYE DROPS Use 1 Drop in both eyes twice* CHOLECALCIFEROL (VITAMIN D3) * Take 1,000 Units by mouth onc* TIMOLOL MALEATE 0.5 % EYE SUZY* Use 1 Drop in both eyes twice* ASPIRIN 81 MG TABLET,DELAYED * Take 1 tablet by mouth once d* Problem List As Of Date 03/16/2018 Noted Resolved Hyperlipidemia with target LDL less than 100 [E*INVALID FOR* ESOPHAGEAL REFLUX [K21.9] More... 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 Nodule of right lung [R91.1] INVALID FOR* More... Facet arthritis of lumbar region [M46.96] INVALID FOR* Venous insufficiency of both lower extremities *INVALID FOR* Benign hypertension [I10] INVALID FOR* Episodic paroxysmal hemicrania, not intractable*INVALID FOR* Situational depression [F43.21] INVALID FOR* Pulmonary emphysema (HCC) [J43.9] INVALID FOR* Closed fracture of one rib of left side [S22.32*INVALID FOR*07/12/2017 Basal cell carcinoma (BCC) of postauricular reg*INVALID FOR* Actinic keratosis [L57.0] INVALID FOR* Acute deep vein thrombosis (DVT) of femoral vei*INVALID FOR* More... Chronic anticoagulation [Z79.01] INVALID FOR* Other instructions from your clinician: PLAN: healthy weight losing diet and regular exercise eat less sugar, bread, potato, pasta, rice, corn, corn syrup, saturated fats CBC with platelet lipids in April flu shot given Alvin Hughes III MD Encounter Status:Closed by ALVIN HUGHES III, MD on 03/16/18 EMERGENCY DEPARTMENT Observed: 02/20/2018 Status: F Source: MOTT SUMMARY 12:51 AM [facility] REPOSITORY [facility] Medical Records Department [address] [place] [address] Emergency Department Summary 02/19/182110 MR#: [id number] Acct: [id number] Name: VICKI RANDLE Rep #: [id number] : 1945 72 From: Vicki Bull MD PCP: Alvin Hughes III, MD Status: DEP ER - ER Visit Summary Date of Service: 02/19/18 Chief Complaint: Left leg pain History of Present Illness: The patient is a 72 M presenting for evaluation secondary to progressive left leg pain. Patient reports that he has not had any sort of trauma but he has been developing pain and redness spreading up the medial portion of his left leg going up into his. He states that he does not have any history DVT or PE, no recent history of travel, no history of immobilization or hypercoagulability. Denies any chest pain shortness of breath or fevers. Review of systems otherwise negative. Physical Examination: Vital signs are within normal limits pulse ox 93%. Lower extremity exam shows the patient to have erythema swelling and palpable cord going from just distal to the knee all the way up the medial portion of the leg into the groin. There is no palpable crepitus. Normal range of motion of the hip knee ankle and foot normal distal pulses. Test Results: Duplex ultrasound demonstrates a saphenous vein clot that does extend all the way into the deep system Emergency Department Course and Treatment: Patient presented for evaluation secondary to pain and swelling in his left leg. Duplex ultrasound shows evidence of a DVT. I had a discussion with the patient about risks and benefits of anticoagulants, and he is in agreement on taking these at this time. I informed the patient that if he develops any sort of chest pain or shortness of breath he needs to immediately return to the emergency department. Patient will be started on a course of Eliquis. I did discuss patient's case with covering physician for the patient's primary care doctor, who agrees to get patient in for acute follow-up. Patient was discharged. Disposition: Discharge Impression: 1. Left leg DVT 2. Initiation of anticoagulation This note was generated with Dragon dictation software. It may contain incorrect words, spelling, and punctuation that were not noted in review of the chart prior to signing ED Disposition - Plan for ED Patient: Disposition: Home or Assisted Living Chief Complaint: Lower Extremity Injury Diagnosis: DVT (deep venous thrombosis) Instructions: Apixaban Oral tablet, ED DVT Prescriptions: Apixaban [Eliquis] 5 mg PO BID #74 tab Referrals: Alvin Hughes III, MD [Primary Care Provider] - As soon as possible What to do if you have Problems For any increased pain, shortness of breath, bleeding, nausea or vomiting, chest pain, or any unexpected problems, contact your Primary Care Provider. Call [facility] ([phone]) or report to the closest Emergency Room. Call 911 if necessary. 02/20/18 0051 <Electronically signed by Vicki Bull MD> Date Vicki Bull MD Cosigner Signature (If Indicated): Date CC: Alvin Hughes III, MD VENOUS DUPLEX Observed: 02/19/2018 Status: F Source: MOTT IMAG/DANO EXTREM 7:31 PM [facility] REPOSITORY [facility] Imaging Services [address] [place] [id number] Venous Duplex Imag/Dano Extrem MR#: [id number] Acct: [id number] Name: VICKI RANDLE Rep #: [id number] : 1945 M 72 From: Mookie Macario MD PCP: Alvin Hughes III, MD Status: REG ER Study: Venous Duplex Imag/Dano Extrem Date of Exam: 02/19/18 Exam# [id number] Ordering Dr: Vicki Bull MD STUDY: VENOUS DOPPLER ULTRASOUND - BILATERAL LOWER EXTREMITIES REASON FOR EXAM: Male, 72 years old. TECHNIQUE: Ultrasound evaluation of the deep vein system to include guy-scale imaging and compression was performed. Guy-scale imaging and Doppler sonographic evaluation, including duplex spectral analysis and qualitative color flow sonography, was performed. COMPARISON: None. FINDINGS: Left leg Common Femoral Vein: Diminished compressibility and intraluminal echoes consistent with clot Common Femoral Vein/Greater Saphenous Junction: Diminished compressibility and internal echoes consistent with thrombus. Deep Femoral Vein: Normal compression, spontaneity and augmentation. Normal color Doppler. Femoral Proximal: Normal compression, spontaneity and augmentation. Normal color Doppler. Femoral Middle: Normal compression, spontaneity and augmentation. Normal color Doppler. Femoral Distal: Normal compression, spontaneity and augmentation. Normal color Doppler. Popliteal Vein: Normal compression, spontaneity and augmentation. Normal color Doppler. Posterior Tibial Vein: Normal compression, spontaneity and augmentation. Normal color Doppler. Peroneal Vein: Normal compression, spontaneity and augmentation. Normal color Doppler. Right leg Common Femoral Vein: Normal compression, spontaneity and augmentation. Normal color Doppler. Common Femoral Vein/Greater Saphenous Junction: Normal compression, spontaneity and augmentation. Normal color Doppler. Deep Femoral Vein: Normal compression, spontaneity and augmentation. Normal color Doppler. Femoral Proximal: Normal compression, spontaneity and augmentation. Normal color Doppler. Femoral Middle: Normal compression, spontaneity and augmentation. Normal color Doppler. Femoral Distal: Normal compression, spontaneity and augmentation. Normal color Doppler. Popliteal Vein: Normal compression, spontaneity and augmentation. Normal color Doppler. Posterior Tibial Vein: Normal compression, spontaneity and augmentation. Normal color Doppler. Peroneal Vein: Normal compression, spontaneity and augmentation. Normal color Doppler. US/Venous Duplex Imag/Dano Extrem IMPRESSION: Deep venous thrombosis of the left common femoral vein extending into the greater saphenous vein. Electronically Signed: Mookie Macario MD at 20:37 EDT , Service support , CC: Alvin Hughes III, MD; Vicki Bull Urology Physician: Signed PLASTIC SURGERY Observed: 01/25/2018 Status: F Source: MOTT VISIT REPORT 7:46 PM [facility] REPOSITORY [facility] [address] [place] [address] OFFICE VISIT Date of Service: 01/07/18 MR#: [id number] Acct: [id number] Name: VICKI RANDLE Rep #: [id number] : 1945 Provider: Mary Ann Dudley MD Age/Sex: 72/M Location: [facility] Status: Signed Intake Vital Signs01/07/18 Weight: 261 lb 4 oz 01/07/18 Blood Pressure 105/67 01/07/18 Blood Pressure Location Lt brachial 01/07/18 Blood Pressure Position Sitting 01/07/18 Respiratory Rate 18 Intake Visit Reasons: evaluation for TBSE Administrative Intern Required: No Accompanied by: None Is patient in pain?: No Allergies adhesive Adverse Reaction (Verified 01/07/18 11:41) Itching atorvastatin [From Lipitor] Adverse Reaction (Verified 01/07/18 11:41) Other rosuvastatin calcium [From Crestor] Adverse Reaction (Verified 01/07/18 11:41) ACHING Medications Finasteride [Proscar] 5 mg PO DAILY 11/18/13 [History Confirmed 12/26/17] Omeprazole [Prilosec] 20 mg PO DAILY 11/18/13 [History Confirmed 12/26/17] Tamsulosin HCl [Flomax] 0.4 mg PO DAILY 11/18/13 [History Confirmed 12/26/17] Aspirin E.C. [Ecotrin] 81 mg PO DAILY@0800 12/27/16 [History Confirmed 12/26/17] Fluoxetine HCl [Prozac] 20 mg PO DAILY 12/27/16 [History Confirmed 12/26/17] brimonidine 0.2 % eye drops 1 drp OPHTHALMIC BID ml 08/05/17 [History Confirmed 12/26/17] timolol maleate 0.5 % eye drops 1 drp OPHTHALMIC BID 08/05/17 [History Confirmed 12/26/17] Imiquimod 1 applic TOPICAL 5XW 09/09/17 [History Confirmed 12/26/17] Amlodipine [Norvasc] 10 mg PO DAILY #30 tab 09/10/17 [Rx Confirmed 12/26/17] Carvedilol [Coreg (Beta Junito)] 3.125 mg PO BID #60 tab 09/10/17 [Rx Confirmed 12/26/17] [facility] Medical History Abdominal aortic aneurysm (AAA) (Acute) Neoplasm of skin of left cheek (Chronic) Neoplasm of skin of forearm (Chronic) Neoplasm of skin of hand (Chronic) Neoplasm of skin of ear (Chronic) 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) Neoplasm of skin of upper arm (Chronic) Personal history of skin cancer (Chronic) 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) AAA (abdominal aortic aneurysm) (Acute) ACTINIC LESION WITH SEVERE ATYPIA (Acute) ATYPICAL SQUAMOUS EPITHELIAL LESION WITH SOLAR KERATOSIS (Acute) ATYPICAL SQUAMOUS LESION LEFT PREAURICULAR AREA (Acute) Actinic keratosis (Acute) Actinic skin damage (Acute) Basal cell carcinoma (Acute) Carpal tunnel syndrome (Acute) Cataract (Acute) GERD (gastroesophageal reflux disease) (Acute) Hyperlipidemia (Acute) INFLAMED ACTINIC KERATOSIS (Acute) INFLAMED ACTINIC KERATOSIS RIGHT VOLAR FOREARM (Acute) Nodule of right lung (Acute) Prostate enlargement (Acute) Pulmonary emphysema (Acute) SCATTERED ACTINIC DAMAGE ON FACE AND UPPER EXTREMITIES (Acute) Seborrheic keratosis (Acute) Situational depression (Acute) Solar keratosis (Acute) Squamous cell carcinoma (Acute) Squamous cell carcinoma in situ (Acute) Squamous cell carcinoma in situ (Acute) Squamous cell carcinoma in situ (Acute) Venous insufficiency of both lower extremities (Acute) Hypertension (Chronic) Surgical History EXCISION ATYPICAL SQUAMOUS LESION (Acute) EXCISION LESIONS AND SKIN CANCERS (Acute) EXCISION OF SKIN CANCER FACE AND HANDS (Acute) H/O knee surgery (Acute) History of basal cell carcinoma excision (Acute) History of carpal tunnel surgery (Acute) History of cholecystectomy (Acute) History of squamous cell carcinoma excision (Acute) History of squamous cell carcinoma excision (Acute) Hx of cataract surgery (Acute) INTRADERMAL EXCISION LESIONS (Acute) S/P AAA repair (Acute) Family History Sister Diabetes Social History housing: house Smoking Status: Former smoker second hand exposure: No quit status: has quit before 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 He has noticed enlarging lesions on his left cheek, dorsum right hand by index finger, left outer proximal arm, left postauricular area by earlobe, left postauricular area near occipital hairline, and proximal nasal dorsum by nasal root. These lesions have increased in size over the last several months and have developed some crustiness. He denies any trauma. He denies any fever. He has used Aldara in the past with success. He states he recently had surgery for a AAA repair by Dr. Hughes. He had used Aldara recently for the lesions on his superior helical rim right ear, base of right thumb, dorsum left hand by first web space, and dorsal distal left forearm. He tolerated it well. 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 Atypical squamous lesion left preauricular area Inflamed actinic keratosis dorsum left hand by ring finger Actinic keratosis with moderate to focal severe atypia left medial arm Actinic keratosis nasal dorsum Actinic keratosis with focal moderate to severe atypia right posterior ear Solar keratosis dorsum right hand by first web space Inflamed actinic keratosis right volar forearm Solar keratosis left lateral forehead Solar keratosis right lateral forehead by eyebrow Solar keratosis left distal dorsal forearm Solar keratosis left distal radial forearm Actinic damage left distal dorsal forearm Actinic damage left distal dorsal radial forearm Actinic damage dorsum bilateral hands Actinic damage right dorsal radial wrist near the base of the thumb Actinic damage right dorsal radial midforearm Solar keratosis mid dorsal right forearm Squamous cell carcinoma in situ and solar keratosis distal dorsal right forearm Actinic lesion with severe atypia dorsal right hand by the base of the thumb Squamous cell carcinoma in situ with solar keratosis dorsum left hand by base of thumb Squamous cell carcinoma in situ left lower back Seborrheic keratosis left upper back Actinic lesion left nasal tip Actinic lesion with severe atypia middle helical rim left ear Actinic lesion with moderate atypia dorsum right hand distally and by the long finger Actinic lesions cluster 2 with moderate atypia dorsum left hand proximally by long finger 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 Actinic keratosis with severe atypia left arm Basal cell carcinoma right posterior auricular area, anterior Squamous cell carcinoma dorsal aspect mid right forearm Actinic keratosis with moderate to severe atypia right postauricular area, posterior Actinic keratosis with focal squamous cell carcinoma in situ dorsum right hand by ring finger Actinic keratosis with severe atypia dorsum left hand by first webspace Actinic keratosis with severe atypia dorsal radial distal left forearm by rest Actinic keratosis left upper neck, upper Actinic keratosis with moderate to severe atypia left lateral neck, lower actinic keratosis with moderate atypia left posterior arm PAST SURGICAL HISTORY: Excision of skin cancer face and hands Carpal tunnel surgery bilaterally Cholecystectomy Knee surgery 5 Cataract surgery Excision 11 mm basal cell carcinoma left dorsal mid forearm with rhomboid transposition skin flap reconstruction and excision 12 mm squamous cell carcinoma right dorsal mid forearm with full-thickness skin graft reconstruction from proximal right forearm (10 cm 's) on November 07, 2010 Excision 7 mm atypical squamous lesion left preauricular area with 25 mm delayed closure and intradermal excision 1 cm actinic lesion superior helical rim left ear and intradermal excision 7 mm echogenic lesion right posterior ear and intradermal excision 7 mm actinic lesion nasal dorsum and intradermal excision 5 mm lesion dorsum left hand and intradermal excision 5 mm lytic lesion left medial arm and intradermal excision 6 mm lesion right volar forearm on May 10, 2011 Intradermal excision 1 cm lesion dorsum right hand by the index finger and intradermal excision 5 mm lesion dorsum right hand first webspace and intradermal excision 5 mm lesion dorsum left hand by first webspace and intradermal excision 5 mm lesion left distal radial forearm and intradermal excision 5 mm lesion left distal dorsal forearm and intradermal excision 6 mm lesion right lateral forehead by the lateral eyebrow and intradermal excision 5 mm lesion left lateral forehead on August 22, 2011Excision 1 cm lesion left upper back with 3 cm layered closure and excision 2.1 cm lesion left lower back 6.5 cm layered closure and intradermal excision 1 cm squamous cell carcinoma in situ distal dorsal right forearm and intradermal excision 6 mm squamous cell carcinoma in situ dorsum right hand by the base of thumb and intradermal excision 6 mm squamous cell carcinoma in situ dorsum left hand by base of thumb on November 19, 2012 Excision 6 mm squamous cell carcinoma in situ superior helical rim left ear with helical rim advancement skin flap reconstruction and intradermal excision 5 mm actinic lesion with severe atypia middle helical rim left ear and and intradermal excision 6 mm actinic lesion with severe atypia dorsal base right thumb and intradermal excision 6 mm actinic lesion with moderate atypia dorsum right hand distally by the long finger and intradermal excision 6 mm actinic lesion cluster 3 with moderate atypia dorsum left hand proximally by the long finger on November 25, 2013 Excision 10 mm 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 and first stage complex left ear reconstruction with left postauricular advancement skin flap reconstruction and placement of cartilage graft from right ear and excision 7 mm actinic keratosis with severe atypia left arm with 5 cm layered closure on April 04, 2015 Second stage complex left ear reconstruction with division and inset of postauricular skin flap and reconstruction left postauricular donor site wound with advancement skin flap on April 25, 2015 Intradermal excision 7 mm actinic keratosis left lateral neck, lower, and intradermal excision 2.3 cm actinic keratosis left lateral neck, upper, and intradermal excision 5 mm actinic keratosis dorsum right hand by ring finger and intradermal excision 10 mm actinic keratosis dorsum left hand by first webspace and intradermal excision 8 mm actinic keratosis dorsal radial distal left forearm by wrist and excision 15 mm squamous cell carcinoma dorsal aspect mid right forearm with rhomboid transposition skin flap reconstruction protheses 14.5 cm ) and intradermal excision 8 mm actinic keratosis left posterior arm and excision 1 cm basal cell carcinoma right postauricular area, anterior, with rhomboid transposition skin flap reconstruction and intradermal excision 6 mm actinic keratosis right postauricular area, posterior on March 19, 2016 MEDICATIONS: Aspirin Zetia Omeprazole Flomax Lisinopril Aldara ALLERGIES: Adhesive tape FAMILY HISTORY: Negative for skin cancer, negative for bleeding disorders, and positive for diabetes SOCIAL HISTORY: Patient is a former smoker. Sometimes he starts up again but he has recently quit. He chews tobacco now. Patient does not drink alcohol. REVIEW OF SYSTEMS General-denies fever, fatigue, and weight loss. Eyes-denies eye pain. His cataracts. Denies glaucoma. ENT-denies nasal congestion sore throat. Cardiovascular-denies chest pain, fatigue, lightheadedness, and shortness of breath with exertion. Respiratory-complains of shortness of breath. Denies cough. Patient has a history of smoking and has quit. Chews tobacco now. Gastrointestinal-denies nausea, vomiting, diarrhea, and constipation. Genitourinary-complains of urinary frequency. Denies hematuria. Has prostate enlargement. Musculoskeletal-denies back pain, stiffness, muscle weakness, or arthritis. Had bilateral carpal tunnel surgery. Had knee surgeries 5. Skin-he has enlarging lesions on his left cheek, dorsum right hand by index finger, left outer proximal arm, left postauricular area by earlobe, left postauricular area near occipital hairline, and proximal nasal dorsum by the nasal root. He has had multiple skin cancers removed in the past and multiple actinic lesions removed in the past. He had used Aldara recently on the lesions on his superior helical rim right ear, base right thumb, dorsum left hand by first web space, dorsal distal left forearm without problem. Neuro-denies poor balance, headaches, or weakness. Psych-denies anxiety depression. Endocrine-denies excessive thirst or urination. Hematologic-denies abnormal bruising and bleeding. PHYSICAL EXAMINATION General - Alert and oriented. HEENT -pupils equal round and reactive to light. Extraocular muscles intact. Throat is clear. On his left ear the flap on the middle helical rim is healing satisfactory with good contour. On the superior helical rim right ear was a lesion that was treated with Aldara that is smooth and appears healed at this time. On his left cheek is a 6 mm lesion that is slightly raised in configuration. Has some crustiness. Has irregular borders. No ulceration. Lesion is nontender. On the proximal nasal dorsum near the nasal root is a 6 mm lesion that is scabby. Has irregular borders. No ulceration. Lesion is nontender. On the left postauricular area by the earlobe is a 1 cm lesion that is crusty. Has irregular borders. No ulceration. Lesion is nontender. There is a mobile soft tissue mass adjacent to this crusty lesion that measures 1.5 cm. On the left postauricular area near the occipital hairline is a 6 mm lesion that is scabby. Has irregular borders. No ulceration. Lesion is nontender. Neck-no cervical adenopathy. No masses. No suspicious lesions noted. Chest wall-No suspicious lesions noted Lungs-Clear to auscultation. Heart-regular rate and rhythm. Abdomen-soft and nondistended. No suspicious lesions noted. Back-no suspicious lesions noted. Extremities-no clubbing cyanosis or edema with full range of motion of all joints. On the dorsum right hand by index finger is a 2.1 cm lesion that is slightly raised in configuration. Has some crustiness. Has irregular borders. No ulceration. Lesion is nontender. On the base of his right thumb was a lesion that has been treated with Aldara and is smooth and appears healed at this time. On the dorsum left hand by first webspace was a lesion that has been treated with Aldara and is smooth and appears healed at this time. On the dorsal distal left forearm was a lesion that has been treated with Aldara and is smooth and appears healed at this time. On the left outer proximal arm is a 6 mm lesion that is crusty and slightly raised in configuration. Has irregular borders. No ulceration. Lesion is nontender. No axillary adenopathy. Radial pulses are palpable. Neuro--cranial nerves II through XII grossly intact. ASSESSMENT 1. 2.1 cm lesion dorsum right hand by index finger. 2. 6 mm lesion left cheek. 3. 6 mm lesion left outer proximal arm. 4. 1 cm lesion left postauricular area by earlobe. 5. 6 mm lesion left postauricular area near occipital hairline. 6. 6 mm lesion proximal nasal dorsum near the nasal root. 7. Lesion superior helical rim right ear, appears healed after Aldara. 8. Lesion base right thumb, appears healed after Aldara. 9. Lesion dorsum left hand by first webspace, appears healed after Aldara. 10. Lesion dorsal distal left forearm, appears healed after Aldara. 11. Personal history of skin cancer. 12. Former smoker. PLAN We will write another prescription for Aldara that he will use on these lesions because of his history of skin cancer and actinic lesions. Some of these lesions may be actinic in nature and would benefit from the use of Aldara. The lesions that remain after using Aldara will need excision. Will send the lesions to Pathology for analysis to rule out carcinoma. Reconstruction will be with possible skin grafts or skin flaps. Surgery will be done on an outpatient basis under local anesthesia and IV sedation. He understands how to use the Aldara since he has used it in the past. Since he just had AAA repair, he wants to wait on surgery until April. Patient was informed of the risks and complications of the procedure including alternatives to surgery. These were discussed with the patient personally. Patient voices understanding and wishes to proceed. Some of the risks and complications were included in a form from the [employer]. Assessment AND Plan Problems 1. Neoplasm of skin of hand D49.2 2. Neoplasm of skin of left cheek D49.2 3. Neoplasm of skin of upper arm D49.2 4. Neoplasm of skin of ear D49.2 5. Neoplasm of skin of forearm D49.2 6. Neoplasm of skin of nose D49.2 7. Personal history of skin cancer Z85.828 8. Actinic keratosis L57.0 9. Former smoker Z87.891 Coding Level of Care Code Off vis,est,level 3 Diagnoses Neoplasm of skin of hand D49.2 Neoplasm of skin of left cheek D49.2 Neoplasm of skin of upper arm D49.2 Neoplasm of skin of ear D49.2 Neoplasm of skin of forearm D49.2 Neoplasm of skin of nose D49.2 Personal history of skin cancer Z85.828 Actinic keratosis L57.0 Former smoker Z87.891 01/25/18 1946 <Electronically signed by Mary Ann Dudley MD> Date Mary Ann Dudley MD Cosigner Signature: Date (if applicable) CC: Alvin Hughes III, MD PROGRESS Observed: 01/16/2018 Status: COMPLETED Source: [place] 9:40 AM [facility] REPOSITORY [facility] ID: [id number] Author: Chan Menon (Pa) Service: (none) Author Type: Physician Band Director Type: Progress Notes Filed: 01/26/2018 4:00 PM Note Text: [facility] CC: BPH Follow-Up HPI Vicki Randle is a 72 year old male, who has a history of BPH with LUTS. Currently taking Flomax and Proscar Patient states no LUTS today PSA 1.80 Previous Studies: None LAB: PSA (ng/mL) Date Value 01/09/2018 1.80 12/31/2016 2.16 01/31/2016 1.89 Creatinine (mg/dL) Date Value 01/09/2018 1.13 12/31/2016 1.20 07/13/2015 1.02 Hematocrit (%) Date Value 12/31/2016 47.8 07/13/2015 44.3 04/17/2012 45.3 IMAGING: No imaging today ALLERGIES: Lipitor [Atorvastatin Calcium]; Medical Tape [Other]; Rosuvastatin Calcium; Yphqzfi-Lne-Msd Reductase Inhibitors CURRENT MEDICATIONS: Current Outpatient Prescriptions: finasteride (PROSCAR) 5 mg tablet Take 1 tablet by mouth once daily. Disp: 90 tablet Rfl: 3 amLODIPine (NORVASC) 5 mg tablet Take 5 mg by mouth once daily. Disp: Rfl: carvedilol (COREG) 3.125 mg tablet Take 1 tablet by mouth twice daily. Disp: 60 tablet Rfl: 11 omeprazole (PRILOSEC) 20 mg capsule Take 1 capsule by mouth every morning. Disp: 90 capsule Rfl: 4 tamsulosin ER (FLOMAX) 0.4 mg cp24 Take 1 capsule by mouth once daily. Disp: 90 capsule Rfl: 4 FLUoxetine (PROZAC) 20 mg capsule Take 1 capsule by mouth once daily. Disp: 30 capsule Rfl: 11 brimonidine (ALPHAGAN) 0.2 % ophthalmic solution Use 1 Drop in both eyes twice daily. Disp: Rfl: 6 timolol maleate (TIMOPTIC) 0.5 % ophthalmic solution Use 1 Drop in both eyes twice daily. Disp: Rfl: 6 aspirin, enteric coated (ECOTRIN LOW STRENGTH) 81 mg EC tablet Take 1 tablet by mouth once daily. Disp: Rfl: 0 cholecalciferol (VITAMIN D3) 1,000 unit tab tablet Take 1,000 Units by mouth once daily. Disp: Rfl: 0 No current facility-administered medications for this visit. REVIEW OF SYSTEMS GENERAL:SEE HPI, No weight loss, malaise or fevers. GENITOURINARY: See HPI The remainder of the ROS was negative. PHYSICAL EXAMINATION Blood pressure 124/60, pulse 64, weight 118.4 kg (261 lb). General appearance: Well appearing, alert, in no acute distress, well-hydrated, well nourished Abdomen: Normal abdominal exam, Abdomen soft, non-tender. Bowel sounds normal. No masses, organomegaly MALE EXAM: No scrotal lesions, cysts, rashes. Epididymes AND testes: normal size, position, without masses Urethra AND meatus: normal size AND position w/o lesion or discharge Penis: circumcised, w/o plaques, lesions, masses, or deformities. Rectal Exam: Prostate: size (40 grams), symmetrical, nontender, w/o nodules. IMPRESSION/PLAN: > History of BPH with LUTS > PSA - 1.8 > MIL - as above > Refills for Flomax and Proscar given >1 year Appt w/ LORE Parnell MT, PA-C + PSA Lab prior to visit LORE Spangler MT, PA-C Electronically signed CNOV Observed: 01/16/2018 Status: COMPLETED Source: [place] 9:00 AM [facility] REPOSITORY Office Visit (UROLWS) VICKI RANDLE ([id number]) 1945 M Date Time Provider Department 01/16/18 9:00 AM CHAN MENON) UROLWS During your visit today, we recorded the following information about you: Pulse Blood pressure Weight 64/minute 124/60 118.4 kg OLIVER Parnell 01/26/2018 4:00 PM Signed [facility] CC: BPH Follow-Up HPI Vicki Randle is a 72 year old male, who has a history of BPH with LUTS. Currently taking Flomax and Proscar Patient states no LUTS today PSA 1.80 Previous Studies: None LAB: PSA (ng/mL) Date Value 01/09/2018 1.80 12/31/2016 2.16 01/31/2016 1.89 Creatinine (mg/dL) Date Value 01/09/2018 1.13 12/31/2016 1.20 07/13/2015 1.02 Hematocrit (%) Date Value 12/31/2016 47.8 07/13/2015 44.3 04/17/2012 45.3 IMAGING: No imaging today ALLERGIES: Lipitor [Atorvastatin Calcium]; Medical Tape [Other]; Rosuvastatin Calcium; Urikker-Ccp-Sul Reductase Inhibitors CURRENT MEDICATIONS: Current Outpatient Prescriptions: finasteride (PROSCAR) 5 mg tablet Take 1 tablet by mouth once daily. Disp: 90 tablet Rfl: 3 amLODIPine (NORVASC) 5 mg tablet Take 5 mg by mouth once daily. Disp: Rfl: carvedilol (COREG) 3.125 mg tablet Take 1 tablet by mouth twice daily. Disp: 60 tablet Rfl: 11 omeprazole (PRILOSEC) 20 mg capsule Take 1 capsule by mouth every morning. Disp: 90 capsule Rfl: 4 tamsulosin ER (FLOMAX) 0.4 mg cp24 Take 1 capsule by mouth once daily. Disp: 90 capsule Rfl: 4 FLUoxetine (PROZAC) 20 mg capsule Take 1 capsule by mouth once daily. Disp: 30 capsule Rfl: 11 brimonidine (ALPHAGAN) 0.2 % ophthalmic solution Use 1 Drop in both eyes twice daily. Disp: Rfl: 6 timolol maleate (TIMOPTIC) 0.5 % ophthalmic solution Use 1 Drop in both eyes twice daily. Disp: Rfl: 6 aspirin, enteric coated (ECOTRIN LOW STRENGTH) 81 mg EC tablet Take 1 tablet by mouth once daily. Disp: Rfl: 0 cholecalciferol (VITAMIN D3) 1,000 unit tab tablet Take 1,000 Units by mouth once daily. Disp: Rfl: 0 No current facility-administered medications for this visit. REVIEW OF SYSTEMS GENERAL:SEE HPI, No weight loss, malaise or fevers. GENITOURINARY: See HPI The remainder of the ROS was negative. PHYSICAL EXAMINATION Blood pressure 124/60, pulse 64, weight 118.4 kg (261 lb). General appearance: Well appearing, alert, in no acute distress, well-hydrated, well nourished Abdomen: Normal abdominal exam, Abdomen soft, non-tender. Bowel sounds normal. No masses, organomegaly MALE EXAM: No scrotal lesions, cysts, rashes. Epididymes AND testes: normal size, position, without masses Urethra AND meatus: normal size AND position w/o lesion or discharge Penis: circumcised, w/o plaques, lesions, masses, or deformities. Rectal Exam: Prostate: size (40 grams), symmetrical, nontender, w/o nodules. IMPRESSION/PLAN: > History of BPH with LUTS > PSA - 1.8 > MIL - as above > Refills for Flomax and Proscar given >1 year Appt w/ LORE Parnell MT, PA-C + PSA Lab prior to visit LORE Spangler MT, PA-C Electronically signed Referring Provider: SELF [[id number]] Allergies As of Date: 01/16/2018 Noted Allergy Reaction LIPITOR (ATORVASTATIN CALCIUM) 03/11/2005 5 - Intolerance medical tape [Other] 03/11/2005 9 - Itching ROSUVASTATIN CALCIUM 03/02/2017 5 - Intolerance [id number] REDUCTASE INHIBIT*01/10/2018 17 - Myalgia Date Reviewed: 01/16/2018 Reviewed by: Ashley Rendon Ma - Fully Assessed Reason for Visit: Follow Up [171] BPH with LUTS [Other] Primary Visit Diagnosis:BPH with obstruction/lower urinary tract symptoms [N40.1, N13.8] Order(s):UA DIP, URINE (POC) [[id number]] Order #: [id number] #:[id number] PSA/PROSTSPECAG DIAG [SQPSA] Order #: [id number] FUTURE Prescriptions as of 01/16/2018 Sig: FINASTERIDE 5 MG TABLET Take 1 tablet by mouth once d* AMLODIPINE 5 MG TABLET Take 5 mg by mouth once daily. CARVEDILOL 3.125 MG TABLET Take 1 tablet by mouth twice * OMEPRAZOLE 20 MG CAPSULE,ALEKS* Take 1 capsule by mouth every* TAMSULOSIN 0.4 MG CAPSULE Take 1 capsule by mouth once * FLUOXETINE 20 MG CAPSULE Take 1 capsule by mouth once * BRIMONIDINE 0.2 % EYE DROPS Use 1 Drop in both eyes twice* TIMOLOL MALEATE 0.5 % EYE SUZY* Use 1 Drop in both eyes twice* ASPIRIN 81 MG TABLET,DELAYED * Take 1 tablet by mouth once d* CHOLECALCIFEROL (VITAMIN D3) * Take 1,000 Units by mouth onc* Problem List As Of Date 01/16/2018 Noted Resolved Hyperlipemia [E78.5] INVALID FOR* ESOPHAGEAL REFLUX [K21.9] More... 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 Nodule of right lung [R91.1] INVALID FOR* More... 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 Follow-up and Disposition History Recorded Encounter Status:Closed by CHAN MENON PA-C on 01/26/18 PROGRESS Observed: 01/10/2018 Status: COMPLETED Source: [place] 1:25 PM [facility] REPOSITORY [facility] ID: [id number] Author: Alvin Hughes III Service: (none) Author Type: Physician Type: Progress Notes Filed: 01/10/2018 1:25 PM Note Text: The bad LDL cholesterol is out of control but the patient cannot tolerate statin medication. I recommend a low-fat diet and exercise as able. Alvin Hughes III, MD, FAAFP PROGRESS Observed: 01/09/2018 Status: COMPLETED Source: [place] 6:16 PM [facility] ID: [id number] Author: Berta Chow (Pa) Service: (none) Author Type: Physician Band Director Type: Progress Notes Filed: 01/09/2018 6:22 PM Note Text: FOLLOW UP VISIT - ENDOSCOPY NAME: Vicki Randle [facility] NO.: [id number] DATE OF SERVICE: 01/06/2018 : 1945 REFERRING PHYSICIAN: Alvin Hughes III MD Vicki is a patient I am following for screening colonoscopy. Dr. De Oliveira performed lower endoscopy on 12/29/17. The patient was found to have few sigmoid diverticula and a pedunculated polyp in the distal sigmoid colon. Pathology demonstrated tubular adenoma. The patient notes no complaints since the procedure. VITALS: There were no vitals taken for this visit. On examination, the abdomen is benign. Assessment IMPRESSION: s/p colonoscopy with polypectomy-adenomatous polyp PLAN: If the patient notes any problems or changes in bowel function, the patient should contact me immediately. Otherwise I recommend follow up endoscopy in 5 years. Patient verbalized understanding of above and agreed with the plan. Diagnoses: (D36.9) Tubular adenoma (primary encounter diagnosis) I spent 15 minutes in the visit, with more than 50% of the total [id number] time of the visit in counseling / coordination of care. Berta Chow PA-C LIPID PANEL, BASIC Collected: 01/09/2018 Status: F Source: [place] 10:59 AM [facility] REPOSITORY TYPE CODE TESTS RESULT OUT OF REFERENCE UNITS RANGE LAB CHOL <200 mg/dL Cholesterol High 253 Result Comment: <200 mg/dL, Desirable 200-239 mg/dL, Borderline high >239 mg/dL, High LAB TRIGLY <150 mg/dL Triglyceride High 165 Result Comment: <150 mg/dL, Normal 150-199 mg/dL, Borderline high 200-499 mg/dL, High >499 mg/dL, Very high LAB HDL >39 mg/dL HDL-Cholesterol 44 Result Comment: 40-59 mg/dL, Acceptable >59 mg/dL, High: Negative risk factor for coronary heart disease <40 mg/dL, Low: Positive risk factor for coronary heart disease LAB LDL <100 mg/dL LDL-Cholesterol High 176 Result Comment: <100 mg/dL, Optimal 100-129 mg/dL, Near optimal/above optimal 130-159 mg/dL, Borderline high 160-189 mg/dL, High >189 mg/dL, Very high Secondary prevention optimal LDL Cholesterol levels are recommended to be < 70 mg/dL LAB NONHDL <130 mg/dL Non HDL High Cholesterol 209 Result Comment: <130 mg/dL, Optimal 130-159 mg/dL, Near optimal/above optimal 160-189 mg/dL, Borderline high 190-219 mg/dL, High >219 mg/dL, Very high Secondary prevention optimal non HDL Cholesterol levels are recommended to be < 100 mg/dL LAB FT hrs Fasting Time 13 LAB VLDL <30 mg/dL High VLDL Cholesterol 33 LAB TCHDL <5.10 High TC:HDL Ratio 5.75 LAB LDLHDL <2.54 High LDL:HDL Ratio 4.00 Result Comment: Reference: 1. National Cholesterol Education Program ATP III Guideline At-A-Glance Quick Desk Reference: National Heart, Lung, and Blood [place]. National Institutes of Health. 2001: NIH Publication No. 01-3305. 2. An International Atherosclerosis Society position paper: global recommendations for the management of dyslipidemia: executive summary, Atherosclerosis. 2014: 232(2):410-413. Performed By: #### LIPB #### [facility] [address] [place] [address] COMP METABOLIC PANEL Collected: 01/09/2018 Status: F Source: [place] JARA 10:[address] [facility] REPOSITORY TYPE CODE TESTS RESULT OUT OF REFERENCE UNITS RANGE LAB TP 6.3-8.0 g/dL Protein, Total 7.2 LAB ALB 3.9-4.9 g/dL Low Albumin 3.8 LAB CA 8.5-10.2 mg/dL Calcium, Total 9.4 LAB TBIL 0.2-1.3 mg/dL Bilirubin, Total 0.2 LAB ALKP 36-108 U/L Alkaline High Phosphatase 139 LAB AST 14-40 U/L AST 18 LAB GLU 74-99 mg/dL Glucose High 100 Result Comment: The [place] Diabetes Association (ADA) provides guidance for cutoff values for fasting glucose and random glucose. The ADA defines fasting as no caloric intake for at least 8 hours. Fas ting plasma glucose results between 100 to 125 mg/dL indicate increased risk for diabetes (prediabetes). Fasting plasma glucose results greater than or equal to 126 mg/dL meet the criteria for diagnosis of diabetes. In the absence of unequivocal hyperglycemia, results should be confirmed by repeat testing. In a patient with classic symptoms of hyperglycemia or hyperglycemic crisis, random plasma glucose results greater than or equal to 200 mg/dL meet the criteria for diagnosis of diabetes. Reference: Standards of Medical Care in Diabetes 2016, [place] Diabetes Association. Diabetes Care. 2016.39(Suppl 1). LAB BUN 9-24 mg/dL BUN 10 LAB CRET 0.73-1.22 mg/dL Creatinine 1.13 LAB NA 136-144 mmol/L Sodium 141 LAB K 3.7-5.1 mmol/L Potassium 4.9 LAB CL 97-105 mmol/L Chloride 101 LAB CO2 22-30 mmol/L CO2 28 LAB AGAP 9-18 mmol/L Anion Gap 12 LAB ALT 10-54 U/L ALT 13 LAB GFRAA eGFR- Amer. >60 LAB GFRNAA . eGFR-All Other Races >60 Result Comment: eGFR (Estimated GFR) Units of measure: mL/min/1.73 meters squared eGFR is derived from the reexpressed MDRD Study equation using the following parameters: serum creatinine, age, gender and race. The creatinine assay has been calibrated to be traceable to IDMS. An eGFR <60 mL/min/1.73m2 for >3 months is consistent with chronic kidney disease. Refer to KDOQI guidelines for clinical interpretation. In patients with unstable renal function, e.g. those with acute kidney injury, the eGFR may not accurately reflect actual GFR. Performed By: #### CMP, PSA #### [facility] [address] [place], [place] [address] PSA, DIAGNOSTIC Collected: 01/09/2018 Status: F Source: [place] 10:58 AM [facility] REPOSITORY TYPE CODE TESTS RESULT OUT OF REFERENCE UNITS RANGE LAB PSA 0.00-2.59 ng/mL PSA, Diagnostic 1.80 Result Comment: Total PSA test methodology used is the Electrochemiluminescence Immunoassay. Performed By: #### CMP, PSA #### [facility] [address] [employer] [place], [place] [address] PROGRESS Observed: 01/09/2018 Status: COMPLETED Source: [place] 10:31 AM [facility] REPOSITORY HNO ID: [id number] Author: Alvin Hughes III Service: (none) Author Type: Physician Type: Progress Notes Filed: 01/09/2018 12:53 PM Note Text: SUBJECTIVE: This is a 72 year old male that is here today for Chronic Medical Conditions. 1. hypertension--home BP 135/68. 2. AAA--s/p stent. Limiting activity. 3. hyperlipidemia no chest pain, angina, CHAU, abd pain, change in BM. PAST MEDICAL HISTORY Diagnosis Date - AAA (abdominal aortic aneurysm) (HCC) 02/06/2012 01/10/17: CT abd 4.8 cm - Benign hypertension 07/13/2015 - Bruit right carotid artery - Esophageal reflux Gastroesophageal reflux - Facet arthritis of lumbar region ([facility]) 06/27/2014 - Hypertrophy of prostate without urinary obstruction and other lower urinary tract symptoms (LUTS) Hypertrophy of the prostate w/o obstruction - Mixed hyperlipidemia Hyperlipidemia - Nodule of right lung 04/17/2012 - Other specified disorder of gallbladder 09/07/07 - Personal history of colonic polyps - Pulmonary emphysema ([facility]) 12/31/2016 - Sebaceous cyst - Situational depression 07/03/2016 - Skin cancer Non-melanoma. - Squamous cell carcinoma 04/04/2015 See scanned documents - Venous insufficiency of both lower extremities 07/01/2014 Current Outpatient Prescriptions on File Prior to Visit: finasteride (PROSCAR) 5 mg tablet Take 1 tablet by mouth once daily. amLODIPine (NORVASC) 5 mg tablet Take 5 mg by mouth once daily. carvedilol (COREG) 3.125 mg tablet Take 1 tablet by mouth twice daily. omeprazole (PRILOSEC) 20 mg capsule Take 1 capsule by mouth every morning. tamsulosin ER (FLOMAX) 0.4 mg cp24 Take 1 capsule by mouth once daily. FLUoxetine (PROZAC) 20 mg capsule Take 1 capsule by mouth once daily. brimonidine (ALPHAGAN) 0.2 % ophthalmic solution Use 1 Drop in both eyes twice daily. cholecalciferol (VITAMIN D3) 1,000 unit tab tablet Take 1,000 Units by mouth once daily. timolol maleate (TIMOPTIC) 0.5 % ophthalmic solution Use 1 Drop in both eyes twice daily. aspirin, enteric coated (ECOTRIN LOW STRENGTH) 81 mg EC tablet Take 1 tablet by mouth once daily. No current facility-administered medications on file prior to visit. FAMILY HISTORY Problem Relation Age of Onset - Emphysema Mother - Arthritis Sister - Hypertension Maternal Grandmother Social History Substance Use Topics - Smoking status: Former Smoker Packs/day: 1.00 Years: 30.00 Types: Cigarettes Quit date: 06/02/1988 - Smokeless tobacco: Current User Types: Chew Comment: Brief relaps after of spouse. - Alcohol use Yes Comment: Seldom BP 102/72 Pulse 69 Resp 18 Wt 117.9 kg (260 lb) BMI 34.30 kg/m? . OBJECTIVE: APPEARANCE Well appearing, alert, in no acute distress, well-hydrated, well nourished. NECK Supple, no adenopathy; thyroid symmetric, normal size, no bruits HEART RRR with normal S1 and S2, no murmurs, no gallops, no JVD appreciated LUNG clear to auscultation ABDOMEN bowel sounds normoactive, no bruits, soft, non-tender, non-distended, without organomegaly or palpable masses, no tenderness to palpation ASSESSMENT: AAA, s/p stent--doing well hypertension--at goal COPD--stable hyperlipidemia-- PLAN: healthy diet and activity as able labs as ordered same meds return to office 6 mos and as needed Alvin Hughes III MD CNOV Observed: 01/09/2018 Status: COMPLETED Source: [place] 10:20 AM [facility] REPOSITORY Office Visit (FAMPWS) VICKI RANDLE ([id number]) 1945 M Date Time Provider Department 01/09/18 10:20 AM ALVIN HUGHES III During your visit today, we recorded the following information about you: Pulse Respiration Blood pressure Weight 69/minute 18/minute 102/72 117.9 kg Alvin Hughes III MD 01/09/2018 12:53 PM Signed SUBJECTIVE: This is a 72 year old male that is here today for Chronic Medical Conditions. 1. hypertension--home BP 135/68. 2. AAA--s/p stent. Limiting activity. 3. hyperlipidemia no chest pain, angina, CHAU, abd pain, change in BM. PAST MEDICAL HISTORY Diagnosis Date - AAA (abdominal aortic aneurysm) ([facility]) 02/06/2012 01/10/17: CT abd 4.8 cm - Benign hypertension 07/13/2015 - Bruit right carotid artery - Esophageal reflux Gastroesophageal reflux - Facet arthritis of lumbar region ([facility]) 06/27/2014 - Hypertrophy of prostate without urinary obstruction and other lower urinary tract symptoms (LUTS) Hypertrophy of the prostate w/o obstruction - Mixed hyperlipidemia Hyperlipidemia - Nodule of right lung 04/17/2012 - Other specified disorder of gallbladder 09/07/07 - Personal history of colonic polyps - Pulmonary emphysema ([facility]) 12/31/2016 - Sebaceous cyst - Situational depression 07/03/2016 - Skin cancer Non-melanoma. - Squamous cell carcinoma 04/04/2015 See scanned documents - Venous insufficiency of both lower extremities 07/01/2014 Current Outpatient Prescriptions on File Prior to Visit: finasteride (PROSCAR) 5 mg tablet Take 1 tablet by mouth once daily. amLODIPine (NORVASC) 5 mg tablet Take 5 mg by mouth once daily. carvedilol (COREG) 3.125 mg tablet Take 1 tablet by mouth twice daily. omeprazole (PRILOSEC) 20 mg capsule Take 1 capsule by mouth every morning. tamsulosin ER (FLOMAX) 0.4 mg cp24 Take 1 capsule by mouth once daily. FLUoxetine (PROZAC) 20 mg capsule Take 1 capsule by mouth once daily. brimonidine (ALPHAGAN) 0.2 % ophthalmic solution Use 1 Drop in both eyes twice daily. cholecalciferol (VITAMIN D3) 1,000 unit tab tablet Take 1,000 Units by mouth once daily. timolol maleate (TIMOPTIC) 0.5 % ophthalmic solution Use 1 Drop in both eyes twice daily. aspirin, enteric coated (ECOTRIN LOW STRENGTH) 81 mg EC tablet Take 1 tablet by mouth once daily. No current facility-administered medications on file prior to visit. FAMILY HISTORY Problem Relation Age of Onset - Emphysema Mother - Arthritis Sister - Hypertension Maternal Grandmother Social History Substance Use Topics - Smoking status: Former Smoker Packs/day: 1.00 Years: 30.00 Types: Cigarettes Quit date: 06/02/1988 - Smokeless tobacco: Current User Types: Chew Comment: Brief relaps after of spouse. - Alcohol use Yes Comment: Seldom BP 102/72 Pulse 69 Resp 18 Wt 117.9 kg (260 lb) BMI 34.30 kg/m? . OBJECTIVE: APPEARANCE Well appearing, alert, in no acute distress, well- hydrated, well nourished. NECK Supple, no adenopathy; thyroid symmetric, normal size, no bruits HEART RRR with normal S1 and S2, no murmurs, no gallops, no JVD appreciated LUNG clear to auscultation ABDOMEN bowel sounds normoactive, no bruits, soft, non-tender, non-distended, without organomegaly or palpable masses, no tenderness to palpation ASSESSMENT: AAA, s/p stent--doing well hypertension--at goal COPD--stable hyperlipidemia-- PLAN: healthy diet and activity as able labs as ordered same meds return to office 6 mos and as needed JACKSON Gay MD, III MD 01/09/2018 10:49 AM Signed PLAN: healthy diet and activity as able labs as ordered same meds return to office 6 mos and as needed Alvin Hughes III MD Referring Provider: ALVIN HUGHES III [[id number]] Allergies As of Date: 01/09/2018 Noted Allergy Reaction LIPITOR (ATORVASTATIN CALCIUM) 03/11/2005 5 - Intolerance medical tape [Other] 03/11/2005 9 - Itching ROSUVASTATIN CALCIUM 03/02/2017 5 - Intolerance Date Reviewed: 01/09/2018 Reviewed by: [facility] DADA Lee - Fully Assessed Primary Visit Diagnosis:Hyperlipidemia, unspecified hyperlipidemia type [E78.5] Other Visit Diagnoses:Abdominal aortic aneurysm (AAA) without rupture (HCC) [I71.4] Benign hypertension [I10] Pulmonary emphysema, unspecified emphysema type (HCC) [J43.9] Order(s):COMP METABOLIC PANEL [SQCMP] Order #: [id number] FUTURE Prescriptions as of 01/09/2018 Sig: FINASTERIDE 5 MG TABLET Take 1 tablet by mouth once d* AMLODIPINE 5 MG TABLET Take 5 mg by mouth once daily. CARVEDILOL 3.125 MG TABLET Take 1 tablet by mouth twice * OMEPRAZOLE 20 MG CAPSULE,ALEKS* Take 1 capsule by mouth every* TAMSULOSIN 0.4 MG CAPSULE Take 1 capsule by mouth once * FLUOXETINE 20 MG CAPSULE Take 1 capsule by mouth once * BRIMONIDINE 0.2 % EYE DROPS Use 1 Drop in both eyes twice* CHOLECALCIFEROL (VITAMIN D3) * Take 1,000 Units by mouth onc* TIMOLOL MALEATE 0.5 % EYE SUZY* Use 1 Drop in both eyes twice* ASPIRIN 81 MG TABLET,DELAYED * Take 1 tablet by mouth once d* Problem List As Of Date 01/09/2018 Noted Resolved Hyperlipemia [E78.5] INVALID FOR* ESOPHAGEAL REFLUX [K21.9] More... 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 Nodule of right lung [R91.1] INVALID FOR* More... Facet arthritis of lumbar region [M46.96] INVALID FOR* Venous insufficiency of both lower extremities *INVALID FOR* Benign hypertension [I10] INVALID FOR* Episodic paroxysmal hemicrania, not intractable*INVALID FOR* Situational depression [F43.21] INVALID FOR* Pulmonary emphysema (HCC) [J43.9] INVALID FOR* Closed fracture of one rib of left side [S22.32*INVALID FOR*07/12/2017 Basal cell carcinoma (BCC) of postauricular reg*INVALID FOR* Actinic keratosis [L57.0] INVALID FOR* Other instructions from your clinician: PLAN: healthy diet and activity as able labs as ordered same meds return to office 6 mos and as needed Alvin Hughes III MD Encounter Status:Closed by ALVIN HUGHES III, MD on 01/09/18 CNOV Observed: 01/06/2018 Status: COMPLETED Source: [place] 1:00 PM [facility] REPOSITORY Office Visit (GENSWS) VICKI RANDLE ([id number]) 1945 Date Time Provider Department 01/06/18 1:00 PM BERTA CHOW (PA) During your visit today, we recorded the following information about you: Berta Chow PA-C 01/06/2018 1:25 PM Signed The following instructions are important for you related to your office visit today with the [facility]. INSTRUCTIONS FOLLOWING A POLYP FOUND AT COLONOSCOPY You were found to have an adenomatous colon polyp. I recommend you undergo repeat endoscopy in 5 years. If you note bleeding, change in bowel habits, or other suspicious colon related symptoms before that time, those symptoms should be evaluated as necessary. If you have any difficulties or concerns, you should contact our office immediately. If you note any additional difficulties, questions, or concerns, you should contact our office immediately @ [phone] and ask to be transferred to the General Surgery department. Berta Chow PA-C 01/09/2018 6:22 PM Signed FOLLOW UP VISIT - ENDOSCOPY NAME: Vicki Randle CLINIC NO.: [id number] DATE OF SERVICE: 01/06/2018 : 1945 REFERRING PHYSICIAN: Alvin Hughes III Vicki is a patient I am following for screening colonoscopy. Dr. De Oliveira performed lower endoscopy on 12/29/17. The patient was found to have few sigmoid diverticula and a pedunculated polyp in the distal sigmoid colon. Pathology demonstrated tubular adenoma. The patient notes no complaints since the procedure. VITALS: There were no vitals taken for this visit. On examination, the abdomen is benign. Assessment IMPRESSION: s/p colonoscopy with polypectomy-adenomatous polyp PLAN: If the patient notes any problems or changes in bowel function, the patient should contact me immediately. Otherwise I recommend follow up endoscopy in 5 years. Patient verbalized understanding of above and agreed with the plan. Diagnoses: (D36.9) Tubular adenoma (primary encounter diagnosis) I spent 15 minutes in the visit, with more than 50% of the total [id number]-htic time of the visit in counseling / coordination of care. Berta Chow PA-C Referring Provider: ALVIN HUGHES III [[id number]] Allergies As of Date: 01/06/2018 Noted Allergy Reaction LIPITOR (ATORVASTATIN CALCIUM) 03/11/2005 5 - Intolerance medical tape [Other] 03/11/2005 9 - Itching ROSUVASTATIN CALCIUM 03/02/2017 5 - Intolerance Date Reviewed: 01/06/2018 Reviewed by: Ella Paredes LPN - Fully Assessed Reason for Visit: Post Op [174] Primary Visit Diagnosis:Tubular adenoma [D36.9] Prescriptions as of 01/06/2018 Sig: FINASTERIDE 5 MG TABLET Take 1 tablet by mouth once d* AMLODIPINE 5 MG TABLET Take 5 mg by mouth once daily. CARVEDILOL 3.125 MG TABLET Take 1 tablet by mouth twice * OMEPRAZOLE 20 MG CAPSULE,ALEKS* Take 1 capsule by mouth every* TAMSULOSIN 0.4 MG CAPSULE Take 1 capsule by mouth once * FLUOXETINE 20 MG CAPSULE Take 1 capsule by mouth once * BRIMONIDINE 0.2 % EYE DROPS Use 1 Drop in both eyes twice* CHOLECALCIFEROL (VITAMIN D3) * Take 1,000 Units by mouth onc* TIMOLOL MALEATE 0.5 % EYE SUZY* Use 1 Drop in both eyes twice* ASPIRIN 81 MG TABLET,DELAYED * Take 1 tablet by mouth once d* Problem List As Of Date 01/06/2018 Noted Resolved Hyperlipemia [E78.5] INVALID FOR* ESOPHAGEAL REFLUX [K21.9] More... 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 Nodule of right lung [R91.1] INVALID FOR* More... Facet arthritis of lumbar region [M46.96] INVALID FOR* Venous insufficiency of both lower extremities *INVALID FOR* Benign hypertension [I10] INVALID FOR* Episodic paroxysmal hemicrania, not intractable*INVALID FOR* Situational depression [F43.21] INVALID FOR* Pulmonary emphysema (HCC) [J43.9] INVALID FOR* Closed fracture of one rib of left side [S22.32*INVALID FOR*07/12/2017 Hypertension, essential [I10] INVALID FOR* Other instructions from your clinician: The following instructions are important for you related to your office visit today with the [facility]. INSTRUCTIONS FOLLOWING A POLYP FOUND AT COLONOSCOPY You were found to have an adenomatous colon polyp. I recommend you undergo repeat endoscopy in 5 years. If you note bleeding, change in bowel habits, or other suspicious colon related symptoms before that time, those symptoms should be evaluated as necessary. If you have any difficulties or concerns, you should contact our office immediately. If you note any additional difficulties, questions, or concerns, you should contact our office immediately @ [phone] and ask to be transferred to the General Surgery department. Follow-up and Disposition History Recorded Encounter Status:Closed by BERTA CHOW PA-C on 01/09/18 PROGRESS Observed: 12/30/2017 Status: COMPLETED Source: [place] 8:[address] [facility] [place] REPOSITORY HNO ID: [id number] Author: Andres De Oliveira Service: (none) Author Type: Physician Type: Progress Notes Filed: 12/30/2017 9:02 PM Note Text: OPERATIVE NOTATION FOR [facility] SURGICAL PROCEDURE. December 29, 2017 Vicki Randle 1945 [id number] male PROCEDURE: COLONOSCOPY WITH SNARE POLYPECTOMY- [id number] SURGEON: Stephanie De Oliveira M.D. FACS SCREEN PRINTING PASTER: None DEPT: WQ PROVIDER: [id number] De Oliveira MD POS: [id number] DIAGNOSIS: (D12.5) Polyp of sigmoid colon, unspecified type (primary encounter diagnosis) ASA CLASS: 3 - Severe FINDINGS: polyp at 20cm COMPLICATIONS: None PMHx - PAST MEDICAL HISTORY Diagnosis Date - AAA (abdominal aortic aneurysm) ([facility]) 02/06/2012 01/10/17: CT abd 4.8 cm - Benign hypertension 07/13/2015 - Bruit right carotid artery - Esophageal reflux Gastroesophageal reflux - Facet arthritis of lumbar region ([facility]) 06/27/2014 - Hypertrophy of prostate without urinary obstruction and other lower urinary tract symptoms (LUTS) Hypertrophy of the prostate w/o obstruction - Mixed hyperlipidemia Hyperlipidemia - Nodule of right lung 04/17/2012 - Other specified disorder of gallbladder 09/07/07 - Personal history of colonic polyps - Pulmonary emphysema (HCC) 12/31/2016 - Sebaceous cyst - Situational depression 07/03/2016 - Skin cancer Non-melanoma. - Squamous cell carcinoma 04/04/2015 See scanned documents - Venous insufficiency of both lower extremities 07/01/2014 COMORBIDITIES - COPD and HTN Post Op Occurrences - None Wound Classification - Clean Contaminated Operative note dictated in the [facility] dictation system. Andres De Oliveira MD OPERATIVE REPORT Observed: 12/29/2017 Status: F Source: MOTT 5:54 PM [facility] REPOSITORY [facility] Medical Records Department [address] [place] [address] Operative Report 12/29/17 1346 MR#: [id number] Acct: [id number] Name: VICKI RANDLE Rep #: [id number] : 1945 72 From: Andres De Oliveira MD PCP: Alvin Hughes III, MD Status: [facility] Location: EN Report of Operation Date of Procedure: 12/29/17 Pre-Operative Diagnosis: screening for colon cancer Post-Operative Diagnosis: few diverticula, polyp at 20cm Surgery/Procedure Performed:: colonoscopy with snare polypectomy Type of Anesthesia:: MAC Anesthesiologist: Kevin Peoples - ASA3 Specimen's removed: polyp at 20cm Description of Procedure: The patient was brought to the endoscopy suite. Sign in was performed verifying patient, site, planned procedure, critical nursing information, the patient was monitored with cardiac, pulse oximetric, and blood pressure monitoring devices. Monitored anesthetic care was provided for sedation. Following IV sedation, the patient was positioned for colonoscopy. A digital rectal exam was performed which revealed no palpable abnormalities The video colonoscope was inserted and advanced to the cecum as verified by the ileocecal valve, cecal base anatomic features and palpation. the cecum, ascending colon, hepatic flexure, transverse colon, splenic flexure and descending colon all around unremarkable. The patient had few small to moderate-sized diverticula in the sigmoid colon. In the distal sigmoid colon at 20 cm, there was a pedunculated polyp. This is removed via hot snare polypectomy. This was sent for pathology. The remainder of the rectosigmoid was unremarkable. The scope was retroflexed and the anal verge appeared unremarkable. The patient tolerated the procedure well and was brought to recovery in stable condition. the patient's follow-up with my physician's bindery assistant Berta Chow in one week for pathology results. 12/29/17 1754 <Electronically signed by Andres De Oliveira MD> Date Andres De Oliveira MD CC: Alvin Hughes III, MD; Andres De Olievira MD Signed COLON BIOPSY (CHOOSE Observed: 12/29/2017 Status: F Source: MOTT SITE) 1:15 PM [facility] REPOSITORY Patient: VICKI RANDLE : 1945 (72/M) Acct Num: [id number] Phys: Alvino GIFFORD,Andres Unit Num: [id number] Loc: EN Specimen: [id number] Received: 12/29/17 - 1419 Spec Type: COLON BX TISSUES TISSUES: COLON BIOPSY GROSS DESCRIPTION Received in fixative is one container labeled with the patient's name and designated 20 cm polyp. The specimen consists of a piece of barkley-pink polyp measuring 0.7 x 0.5 x 0.5 cm. The entire specimen is submitted in one cassette. / JUNIOR:nguyễn 12/30/17 TC:1 CPT: 17785 HEADER OPERATION: Colonoscopy (MAC) PRE-OP DIAGNOSIS: Screening TISSUE SUBMITTED: 20 cm polyp MICROSCOPIC DESCRIPTION Slides are reviewed. MICROSCOPIC DIAGNOSIS Colon, 20 cm polyp, polypectomy: Tubular adenoma. SJ:nguyễn 12/31/17 Signed Lambert Alexandre 12/31/17 <signature on file> Performed By: #### PCOLBX #### [facility] [address] [place], [address] HISTORY AND PHYSICAL Observed: 12/29/2017 Status: F Source: MOTT EXAM 11:54 AM [facility] REPOSITORY [facility] Medical Records Department [address] [place] [address] History and Physical 12/29/17 1154 MR#: [id number] Acct: [id number] Name: VICKI RANDLE Rep #: [id number] : 1945 72 From: Andres De Oliveira MD PCP: Alvin Hughes III, MD Status: REG SDC Y Location: [place] [address] History and Physical Date of Admission: 12/29/17 HISTORY AND PHYSICAL Vicki Randle 1945 REFERRING PHYSICIAN: Alvin Hughes III, MD CHIEF COMPLAINT: Consult HPI: The patient is a 72 year old male referred for endoscopy. Vicki no colon complaints. He denies any change in bowel habits, weight changes, blood in stools, black tarry stools or abdominal pain. He denies any known family history of colon cancer. The patient notes a past history of GERD, but states this is currently well-controlled with medication with no breakthrough symptoms. Last colonoscopy was in August 2007, due for 10-year screening. The patient is being seen by me today at the request of Dr. Alvin Hughes III for my opinion and advice regarding screening colonoscopy. Past medical history is significant for hypertension, hyperlipidemia, emphysema, squamous cell carcinoma, and he is s/p AAA repair in August 2017. This was complicated by significant hypertension, patient has been working closely with PCP to get blood pressure under control since that time. He denies any chest pain or shortness of breath, states he feels well currently. Denies problems with sedation in the past. PAST MEDICAL HISTORY PAST MEDICAL HISTORY Diagnosis Date AAA (abdominal aortic aneurysm) (HCC) 02/06/201212/31: CT abd 4.8 cm Benign hypertension 07/13/2015 Bruit right carotid artery Eso phageal reflux Gastroesophageal reflux Facet arthritis of lumbar region (HCC) 06/27/2014 Hypertrophy of prostate without urinary obstruction and other lower urinary tract symptoms (LUTS) Hypertrophy of the prostate w/o obstruction Mixed hyperlipidemia Hyperlipid emia Nodule of right lung 04/17/2012 Other specified disorder of gallbladder 09/07/07 Pe rsonal history of colonic polyps Pulmonary emphysema (HCC) 12/31/2016 Sebaceous cyst Situational depression 07/03/2016 Skin cancer Non-melanoma. Squamous cell carcinoma 1 06/04/2014 See scanned documentsVenous insufficiency of both lower extremities 07/01/2014 PAST SURGICAL HISTORY PAST SURGICAL HISTORY Procedure Laterality Date COLONOSCOP W/ OR W/O [facility] SPEC 08/17/07 INT REPAIR SCALP,JAYCOB,TRUNK 7.6-12.5CM 02/24/07 back LAP CHOLECYSTECT/CHOLANGIOGRAPHY 09/07/07MRI 02/22/2014 [facility] - mri - right knee PAST SURGICAL HISTORY OF N/A Abdominal aneurysm aortic repair REM LESION TRUNK,ARM,LEG > 4.0CM 02/24/07 b ack REM LESION TRUNK,ARM,LEG > 4.0CM REMV THIGH/KNEE TUMOR,SUBCUTANEOUS REMOVE D FATTY TUMORS FROM UNDER REMV THIGH/KNEE TUMOR,SUBCUTANEOUS RMOVED FATTY TUMORE S MIKI (GENERAL SURGERY)CONSULT 04/25/2015 Invasive squamous cell carcincoma see scanned d ocuments CURRENT MEDICATIONS Current Outpatient Prescriptions: amLODIPine (NORVASC) 5 mg tablet Take 5 mg by mouth once maxwell y. carvedilol (COREG) 3.125 mg tablet Take 1 tablet by mouth twice daily. omeprazole (PRILOSE C) 20 mg capsule Take 1 capsule by mouth every morning. tamsulosin ER (FLOMAX) 0.4 mg cp24 Miki e 1 capsule by mouth once daily. FLUoxetine (PROZAC) 20 mg capsule Take 1 capsule by mouth onc e daily. brimonidine (ALPHAGAN) 0.2 % ophthalmic solution Use 1 Drop in both eyes twice daily. cholecalciferol (VITAMIN D3) 1,000 unit tab tablet Take 1,000 Units by mouth once daily. jessica olol maleate (TIMOPTIC) 0.5% ophthalmic solution Use 1 Drop in both eyes twice daily. finaster temi (PROSCAR) 5 mg tablet Take 1 tablet by mouth once daily. aspirin, enteric coated (ECOTRIN LOW STRENGTH) 81 mg EC tablet Take 1tablet by mouth once daily. No current facility-administ ered medications for this visit. 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 Alcohol use: Yes Comment: Seldom Drug use: No FAMILY HISTORY: FAMILY HISTORY FAMILY HISTORY Problem Relation Age of Onset Emphysema Mother Arthritis Sister H ypertension Maternal Grandmother REVIEW OF SYMPTOMS: The review of systems data was entered by the nurse and reviewed by me Nursing Notes: Berta Nicholas RN 11/28/2017 1:24 PM Signed REVIEW OF SYSTEMS: General: The patient denies fatigue, denies weight loss, denies weight gain, denies feeling hot, and denies feelings of cold. Eyes: The patient NOTES glaucoma, denies eye injury/surgery, wears glasses or contacts. Ear/Nose/Throat: The patient denies allergies, denies hayfever, denies ear infections, and denies bloody noses. Cardiovascular: The patient denies chest pain, denies heart disease, NOTES high blood pressure,denies cardiac stent, denies prior heart attack, denies irregular heart beat, NOTES high cholesterol, denies poor circulation, denies heart failure, other cardiac issues, denies claudication, denies cold feet, denies peripheral arterial stent. Respiratory: The patient denies tuberculosis, denies pneumonia, denies frequent cough, denies pulmonary embolism, denies shortness of breath, and denies coughing up blood. Gastrointestinal: The patient denies difficulty swallowing, NOTES acid reflux, denies ulcers, denies vomiting, denies jaundice/hepatitis, denies gallbladder problems, denies black or tarry stools, denies hemorrhoids, denies bleeding from rectum, denies diverticulitis, denies constipation, denies diarrhea, denies loss of stool control, and denies hernias. Kidney/Bladder: The patient denies kidney stones, denies urine infections, and denies bloody urine. Skin: The patient notes a history of skin cancer, denies bleeding/changing moles, and denies a history of skin rash. Neurologic: The patient denies a history of epilepsy/convulsions, denies headaches, denies head/spinal injuries, and denies stroke/TIA. Psychiatric: The patient denies psychiatric medications, notes depression, and denies voices, denies substance abuse. Endocrine: The patient denies thyroid disorders, denies diabetes, and denies hormonal problems. Hematologic: The patient denies a history of bruising, denies bleeding, and denies anemia, denies blood clots. Infections: The patient denies a history of measles and mumps, denies rheumatic fever, and denies sexually transmitted diseases. Musculoskeletal: The patient denies back pain/injury, denies back problems, denies sciatica, denies knee/foot trouble, denies arthritis, or denies gout. When was patient's last Mammogram screening? N/A Last Colonoscopy: 2007 Berta Nicholas RN .confimedit PHYSICAL EXAMINATION: General: The patient is 72 year old male, well nourished, well hydrated in no acute distress. The patient is oriented to time, place, and person. VITALS: Blood pressure 122/84, pulse 76, temperature 37 C (98.6 F), weight 116.1 kg (256 lb). Body mass index is 33.78 kg/m . HEENT: Normal cephalic, ataumatic, pupils are equally round, sclera are anicteric, mucous membranes are moist, oropharynx is clear. Neck has no masses, asymmetry or lymphadenopathy. Respiratory: Clear to auscultation and percussion. Normal respiratory excursion and pattern. Cardiac: Examination is regular rate and rhythm. Abdominal exam: Soft, nontender, with no palpable masses. No hepatosplenomegaly. No palpable hernias. Rectal exam: exam deferred Extremities: no clubbing, cyanosis or edema. No adenopathy. Other: LABORATORY VALUES: As Noted RADIOLOGIC STUDIES: As Noted Assessment IMPRESSION: encounter for screening colonoscopy. History of AAA repair in 08/2017 PLAN: We will plan for colonoscopy with MAC in November. We discussed the risks and benefits of the planned endoscopy. I have informed the patient that complications can occur including failure to complete the endoscopy and perforation. The patient had the opportunity to ask questions concerning the planned endoscopy. My staff has also explained the procedure to the patient in understandable terms and has given the patient printed material concerning the procedure. The patient freely consents to surgery. I plan to use golytely bowel preparation for endoscopy The patient has medical comorbidities for which I plan to perform the procedure under monitored anesthetic care. Diagnoses: (Z12.11) Screen for colon cancer (primary encounter diagnosis) My findings have been communicated to Dr. Hughes via shared medical record. This note will be forwarded to Dr. Alvin Hughes III MD. Return to Clinic: The patient is instructed to follow-up with me 1 week post operatively. Berta Chow PA-C 12/29/17 1154 <Electronically signed by Andres De Oliveira MD> Date Andres De Oliveira MD Cosigner Signature: Date (if applicable) CC: Alvin Hughes III, MD; Andres De Oliveira MD Signed CNOP Observed: 12/29/2017 Status: COMPLETED Source: [place] 12:00 AM [facility] REPOSITORY Operative Note (Enc) (GENSWS) Progress Notes: Andres De Oliveira MD 12/30/2017 9:02 PM Signed OPERATIVE NOTATION FOR [facility] SURGICAL PROCEDURE. December 29, 2017 Vicki Randle 1945 [id number] male PROCEDURE: COLONOSCOPY WITH SNARE POLYPECTOMY- [id number] SURGEON: Stephanie De lOiveira M.D. FACS SCREEN PRINTING PASTER: None DEPT: WQ PROVIDER: [id number] De Oliveira MD POS: [id number] DIAGNOSIS: (D12.5) Polyp of sigmoid colon, unspecified type (primary encounter diagnosis) ASA CLASS: 3 - Severe FINDINGS: polyp at 20cm COMPLICATIONS: None PMHx - PAST MEDICAL HISTORY Diagnosis Date - AAA (abdominal aortic aneurysm) (HCC) 02/06/2012 01/10/17: CT abd 4.8 cm - Benign hypertension 07/13/2015 - Bruit right carotid artery - Esophageal reflux Gastroesophageal reflux - Facet arthritis of lumbar region (HCC) 06/27/2014 - Hypertrophy of prostate without urinary obstruction and other lower urinary tract symptoms (LUTS) Hypertrophy of the prostate w/o obstruction - Mixed hyperlipidemia Hyperlipidemia - Nodule of right lung 04/17/2012 - Other specified disorder of gallbladder 09/07/07 - Personal history of colonic polyps - Pulmonary emphysema (HCC) 12/31/2016 - Sebaceous cyst - Situational depression 07/03/2016 - Skin cancer Non-melanoma. - Squamous cell carcinoma 04/04/2015 See scanned documents - Venous insufficiency of both lower extremities 07/01/2014 COMORBIDITIES - COPD and HTN Post Op Occurrences - None Wound Classification - Clean Contaminated Operative note dictated in the [facility] dictation system. Andres De Oliveira MD Encounter Status:Closed by ANDRES DE OLIVEIRA MD on 12/30/17 CNPTOUTREACH Observed: 12/23/2017 Status: COMPLETED Source: [place] 12:00 AM [facility] REPOSITORY Patient Outreach (FAMPST) VICKI RANDLE ([id number]) 1945 M Date Time Provider Department 12/23/17 ALVIN HUGHES III FAMPST During your visit today, we recorded the following information about you: Allergies As of Date: 12/23/2017 Noted Allergy Reaction LIPITOR (ATORVASTATIN CALCIUM) 03/11/2005 5 - Intolerance medical tape [Other] 03/11/2005 9 - Itching ROSUVASTATIN CALCIUM 03/02/2017 5 - Intolerance Date Reviewed: 11/28/2017 Reviewed by: Berta Chow (Pa) - Fully Assessed Visit Diagnosis:Medication management [Z79.899] Order(s):BASIC METABOLIC PNL [SQBMP] Order #: [id number] FUTURE LIPID PANEL BASIC [SQLIPB] Order #: [id number] FUTURE Prescriptions as of 12/23/2017 Sig: FINASTERIDE 5 MG TABLET Take 1 tablet by mouth once d* AMLODIPINE 5 MG TABLET Take 5 mg by mouth once daily. CARVEDILOL 3.125 MG TABLET Take 1 tablet by mouth twice * OMEPRAZOLE 20 MG CAPSULE,ALEKS* Take 1 capsule by mouth every* TAMSULOSIN 0.4 MG CAPSULE Take 1 capsule by mouth once * FLUOXETINE 20 MG CAPSULE Take 1 capsule by mouth once * BRIMONIDINE 0.2 % EYE DROPS Use 1 Drop in both eyes twice* CHOLECALCIFEROL (VITAMIN D3) * Take 1,000 Units by mouth onc* TIMOLOL MALEATE 0.5 % EYE SUZY* Use 1 Drop in both eyes twice* ASPIRIN 81 MG TABLET,DELAYED * Take 1 tablet by mouth once d* Problem List As Of Date 12/23/2017 Noted Resolved Hyperlipemia [E78.5] INVALID FOR* ESOPHAGEAL REFLUX [K21.9] More... 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 Nodule of right lung [R91.1] INVALID FOR* More... Facet arthritis of lumbar region [M46.96] INVALID FOR* Venous insufficiency of both lower extremities *INVALID FOR* Benign hypertension [I10] INVALID FOR* Episodic paroxysmal hemicrania, not intractable*INVALID FOR* Situational depression [F43.21] INVALID FOR* Pulmonary emphysema (HCC) [J43.9] INVALID FOR* Closed fracture of one rib of left side [S22.32*INVALID FOR*07/12/2017 Hypertension, essential [I10] INVALID FOR* Encounter Status:Closed by JAYESH MCCALLUMUSER on 03/13/18 PROGRESS Observed: 11/28/2017 Status: COMPLETED Source: [place] 1:[address] [facility] REPOSITORY HNO ID: [id number] Author: Berta Chow (Pa) Service: (none) Author Type: Physician Band Director Type: Progress Notes Filed: 11/28/2017 2:57 PM Note Text: HISTORY AND PHYSICAL Vicki Randle 1945 REFERRING PHYSICIAN: Alvin Hughes III, MD CHIEF COMPLAINT: Consult HPI: The patient is a 72 year old male referred for endoscopy. Vicki no colon complaints. He denies any change in bowel habits, weight changes, blood in stools, black tarry stools or abdominal pain. He denies any known family history of colon cancer. The patient notes a past history of GERD, but states this is currently well-controlled with medication with no breakthrough symptoms. Last colonoscopy was in August 2007, due for 10-year screening. The patient is being seen by me today at the request of Dr. Alvin Hughes III for my opinion and advice regarding screening colonoscopy. Past medical history is significant for hypertension, hyperlipidemia, emphysema, squamous cell carcinoma, and he is s/p AAA repair in August 2017. This was complicated by significant hypertension, patient has been working closely with PCP to get blood pressure under control since that time. He denies any chest pain or shortness of breath, states he feels well currently. Denies problems with sedation in the past. PAST MEDICAL HISTORY Diagnosis Date - AAA (abdominal aortic aneurysm) (HCC) 02/06/2012 01/10/17: CT abd 4.8 cm - Benign hypertension 07/13/2015 - Bruit right carotid artery - Esophageal reflux Gastroesophageal reflux - Facet arthritis of lumbar region ([facility]) 06/27/2014 - Hypertrophy of prostate without urinary obstruction and other lower urinary tract symptoms (LUTS) Hypertrophy of the prostate w/o obstruction - Mixed hyperlipidemia Hyperlipidemia - Nodule of right lung 04/17/2012 - Other specified disorder of gallbladder 09/07/07 - Personal history of colonic polyps - Pulmonary emphysema (HCC) 12/31/2016 - Sebaceous cyst - Situational depression 07/03/2016 - Skin cancer Non-melanoma. - Squamous cell carcinoma 04/04/2015 See scanned documents - Venous insufficiency of both lower extremities 07/01/2014 PAST SURGICAL HISTORY Procedure Laterality Date - COLONOSCOP W/ OR W/O [facility] SPEC 08/17/07 - INT REPAIR SCALP,JAYCOB,TRUNK 7.6-12.5CM 02/24/07 back - LAP CHOLECYSTECT/CHOLANGIOGRAPHY 09/07/07 - MRI 02/22/2014 [facility] - mri - right knee - PAST SURGICAL HISTORY OF N/A 09/09/2017 Abdominal aneurysm aortic repair - REM LESION TRUNK,ARM,LEG > 4.0CM 02/24/07 back - REM LESION TRUNK,ARM,LEG > 4.0CM - REMV THIGH/KNEE TUMOR,SUBCUTANEOUS REMOVED FATTY TUMORS FROM UNDER - REMV THIGH/KNEE TUMOR,SUBCUTANEOUS RMOVED FATTY TUMORE - SURGERY (GENERAL SURGERY) CONSULT 04/25/2015 Invasive squamous cell carcincoma see scanned documents Current Outpatient Prescriptions: amLODIPine (NORVASC) 5 mg tablet Take 5 mg by mouth once daily. carvedilol (COREG) 3.125 mg tablet Take 1 tablet by mouth twice daily. omeprazole (PRILOSEC) 20 mg capsule Take 1 capsule by mouth every morning. tamsulosin ER (FLOMAX) 0.4 mg cp24 Take 1 capsule by mouth once daily. FLUoxetine (PROZAC) 20 mg capsule Take 1 capsule by mouth once daily. brimonidine (ALPHAGAN) 0.2 % ophthalmic solution Use 1 Drop in both eyes twice daily. cholecalciferol (VITAMIN D3) 1,000 unit tab tablet Take 1,000 Units by mouth once daily. timolol maleate (TIMOPTIC) 0.5 % ophthalmic solution Use 1 Drop in both eyes twice daily. finasteride (PROSCAR) 5 mg tablet Take 1 tablet by mouth once daily. aspirin, enteric coated (ECOTRIN LOW STRENGTH) 81 mg EC tablet Take 1 tablet by mouth once daily. No current facility-administered medications for this visit. 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 Alcohol use: Yes Comment: Seldom Drug use: No FAMILY HISTORY: FAMILY HISTORY Problem Relation Age of Onset - Emphysema Mother - Arthritis Sister - Hypertension Maternal Grandmother REVIEW OF SYMPTOMS: The review of systems data was entered by the nurse and reviewed by ne Nursing Notes: Berta Nicholas RN 11/28/2017 1:24 PM Signed REVIEW OF SYSTEMS: General: The patient denies fatigue, denies weight loss, denies weight gain, denies feeling hot, and denies feelings of cold. Eyes: The patient NOTES glaucoma, denies eye injury/surgery, wears glasses or contacts. Ear/Nose/Throat: The patient denies allergies, denies hayfever, denies ear infections, and denies bloody noses. Cardiovascular: The patient denies chest pain, denies heart disease, NOTES high blood pressure,denies cardiac stent, denies prior heart attack, denies irregular heart beat, NOTES high cholesterol, denies poor circulation, denies heart failure, other cardiac issues, denies claudication, denies cold feet, denies peripheral arterial stent. Respiratory: The patient denies tuberculosis, denies pneumonia, denies frequent cough, denies pulmonary embolism, denies shortness of breath, and denies coughing up blood. Gastrointestinal: The patient denies difficulty swallowing, NOTES acid reflux, denies ulcers, denies vomiting, denies jaundice/hepatitis, denies gallbladder problems, denies black or tarry stools, denies hemorrhoids, denies bleeding from rectum, denies diverticulitis, denies constipation, denies diarrhea, denies loss of stool control, and denies hernias. Kidney/Bladder: The patient denies kidney stones, denies urine infections, and denies bloody urine. Skin: The patient notes a history of skin cancer, denies bleeding/changing moles, and denies a history of skin rash. Neurologic: The patient denies a history of epilepsy/convulsions, denies headaches, denies head/spinal injuries, and denies stroke/TIA. Psychiatric: The patient denies psychiatric medications, notes depression, and denies voices, denies substance abuse. Endocrine: The patient denies thyroid disorders, denies diabetes, and denies hormonal problems. Hematologic: The patient denies a history of bruising, denies bleeding, and denies anemia, denies blood clots. Infections: The patient denies a history of measles and mumps, denies rheumatic fever, and denies sexually transmitted diseases. Musculoskeletal: The patient denies back pain/injury, denies back problems, denies sciatica, denies knee/foot trouble, denies arthritis, or denies gout. When was patient's last Mammogram screening? N/A Last Colonoscopy: 2007 Berta Nicholas RN .confimedit PHYSICAL EXAMINATION: General: The patient is 72 year old male, well nourished, well hydrated in no acute distress. The patient is oriented to time, place, and person. VITALS: Blood pressure 122/84, pulse 76, temperature 37 ?C (98.6 ?F), weight 116.1 kg (256 lb). Body mass index is 33.78 kg/m?. HEENT: Normal cephalic, ataumatic, pupils are equally round, sclera are anicteric, mucous membranes are moist, oropharynx is clear. Neck has no masses, asymmetry or lymphadenopathy. Respiratory: Clear to auscultation and percussion. Normal respiratory excursion and pattern. Cardiac: Examination is regular rate and rhythm. Abdominal exam: Soft, nontender, with no palpable masses. No hepatosplenomegaly. No palpable hernias. Rectal exam: exam deferred Extremities: no clubbing, cyanosis or edema. No adenopathy. Other: LABORATORY VALUES: As Noted RADIOLOGIC STUDIES: As Noted Assessment IMPRESSION: encounter for screening colonoscopy. History of AAA repair in 08/2017 PLAN: We will plan for colonoscopy with MAC in November. We discussed the risks and benefits of the planned endoscopy. I have informed the patient that complications can occur including failure to complete the endoscopy and perforation. The patient had the opportunity to ask questions concerning the planned endoscopy. My staff has also explained the procedure to the patient in understandable terms and has given the patient printed material concerning the procedure. The patient freely consents to surgery. I plan to use golytely bowel preparation for endoscopy The patient has medical comorbidities for which I plan to perform the procedure under monitored anesthetic care. Diagnoses: (Z12.11) Screen for colon cancer (primary encounter diagnosis) My findings have been communicated to Dr. Hughes via shared medical record. This note will be forwarded to Dr. Alvin Hughes, III . Return to Clinic: The patient is instructed to follow-up with me 1 week post operatively. MEHDI Ryder Observed: 11/28/2017 Status: COMPLETED Source: [place] 1:[address] [facility] REPOSITORY Office Visit (GENSWS) RAZIAVICKI ([id number]) 1945 M Date Time Provider Department 11/28/17 1:30 PM BERTA CHOW (PA) During your visit today, we recorded the following information about you: Temperature Pulse Blood pressure Weight 98.6 degrees 76/minute 122/84 116.1 kg Berta Nicholas RN 11/28/2017 1:24 PM Signed REVIEW OF SYSTEMS: General: The patient denies fatigue, denies weight loss, denies weight gain, denies feeling hot, and denies feelings of cold. Eyes: The patient NOTES glaucoma, denies eye injury/surgery, wears glasses or contacts. Ear/Nose/Throat: The patient denies allergies, denies hayfever, denies ear infections, and denies bloody noses. Cardiovascular: The patient denies chest pain, denies heart disease, NOTES high blood pressure,denies cardiac stent, denies prior heart attack, denies irregular heart beat, NOTES high cholesterol, denies poor circulation, denies heart failure, other cardiac issues, denies claudication, denies cold feet, denies peripheral arterial stent. Respiratory: The patient denies tuberculosis, denies pneumonia, denies frequent cough, denies pulmonary embolism, denies shortness of breath, and denies coughing up blood. Gastrointestinal: The patient denies difficulty swallowing, NOTES acid reflux, denies ulcers, denies vomiting, denies jaundice/hepatitis, denies gallbladder problems, denies black or tarry stools, denies hemorrhoids, denies bleeding from rectum, denies diverticulitis, denies constipation, denies diarrhea, denies loss of stool control, and denies hernias. Kidney/Bladder: The patient denies kidney stones, denies urine infections, and denies bloody urine. Skin: The patient notes a history of skin cancer, denies bleeding/changing moles, and denies a history of skin rash. Neurologic: The patient denies a history of epilepsy/convulsions, denies headaches, denies head/spinal injuries, and denies stroke/TIA. Psychiatric: The patient denies psychiatric medications, notes depression, and denies voices, denies substance abuse. Endocrine: The patient denies thyroid disorders, denies diabetes, and denies hormonal problems. Hematologic: The patient denies a history of bruising, denies bleeding, and denies anemia, denies blood clots. Infections: The patient denies a history of measles and mumps, denies rheumatic fever, and denies sexually transmitted diseases. Musculoskeletal: The patient denies back pain/injury, denies back problems, denies sciatica, denies knee/foot trouble, denies arthritis, or denies gout. When was patient's last Mammogram screening? N/A Last Colonoscopy: 2007 Berta Chow PA-C 11/28/2017 2:57 PM Signed HISTORY AND PHYSICAL Vicki Randle 1945 REFERRING PHYSICIAN: Alvin Hughes III, MD CHIEF COMPLAINT: Consult HPI: The patient is a 72 year old male referred for endoscopy. Vicki no colon complaints. He denies any change in bowel habits, weight changes, blood in stools, black tarry stools or abdominal pain. He denies any known family history of colon cancer. The patient notes a past history of GERD, but states this is currently well-controlled with medication with no breakthrough symptoms. Last colonoscopy was in August 2007, due for 10- year screening. The patient is being seen by me today at the request of Dr. Alvin Hughes III for my opinion and advice regarding screening colonoscopy. Past medical history is significant for hypertension, hyperlipidemia, emphysema, squamous cell carcinoma, and he is s/p AAA repair in August 2017. This was complicated by significant hypertension, patient has been working closely with PCP to get blood pressure under control since that time. He denies any chest pain or shortness of breath, states he feels well currently. Denies problems with sedation in the past. PAST MEDICAL HISTORY Diagnosis Date - AAA (abdominal aortic aneurysm) (HCC) 02/06/2012 01/10/17: CT abd 4.8 cm - Benign hypertension 07/13/2015 - Bruit right carotid artery - Esophageal reflux Gastroesophageal reflux - Facet arthritis of lumbar region (HCC) 06/27/2014 - Hypertrophy of prostate without urinary obstruction and other lower urinary tract symptoms (LUTS) Hypertrophy of the prostate w/o obstruction - Mixed hyperlipidemia Hyperlipidemia - Nodule of right lung 04/17/2012 - Other specified disorder of gallbladder 09/07/07 - Personal history of colonic polyps - Pulmonary emphysema (HCC) 12/31/2016 - Sebaceous cyst - Situational depression 07/03/2016 - Skin cancer Non-melanoma. - Squamous cell carcinoma 04/04/2015 See scanned documents - Venous insufficiency of both lower extremities 07/01/2014 PAST SURGICAL HISTORY Procedure Laterality Date - COLONOSCOP W/ OR W/O BRSH SPEC 08/17/07 - INT REPAIR SCALP,JAYCOB,TRUNK 7.6-12.5CM 02/24/07 back - LAP CHOLECYSTECT/CHOLANGIOGRAPHY 09/07/07 - MRI 02/22/2014 [facility] - mri - right knee - PAST SURGICAL HISTORY OF N/A 09/09/2017 Abdominal aneurysm aortic repair - REM LESION TRUNK,ARM,LEG > 4.0CM 02/24/07 back - REM LESION TRUNK,ARM,LEG > 4.0CM - REMV THIGH/KNEE TUMOR,SUBCUTANEOUS REMOVED FATTY TUMORS FROM UNDER - REMV THIGH/KNEE TUMOR,SUBCUTANEOUS RMOVED FATTY TUMORE - SURGERY (GENERAL SURGERY) CONSULT 04/25/2015 Invasive squamous cell carcincoma see scanned documents Current Outpatient Prescriptions: amLODIPine (NORVASC) 5 mg tablet Take 5 mg by mouth once daily. carvedilol (COREG) 3.125 mg tablet Take 1 tablet by mouth twice daily. omeprazole (PRILOSEC) 20 mg capsule Take 1 capsule by mouth every morning. tamsulosin ER (FLOMAX) 0.4 mg cp24 Take 1 capsule by mouth once daily. FLUoxetine (PROZAC) 20 mg capsule Take 1 capsule by mouth once daily. brimonidine (ALPHAGAN) 0.2 % ophthalmic solution Use 1 Drop in both eyes twice daily. cholecalciferol (VITAMIN D3) 1,000 unit tab tablet Take 1,000 Units by mouth once daily. timolol maleate (TIMOPTIC) 0.5 % ophthalmic solution Use 1 Drop in both eyes twice daily. finasteride (PROSCAR) 5 mg tablet Take 1 tablet by mouth once daily. aspirin, enteric coated (ECOTRIN LOW STRENGTH) 81 mg EC tablet Take 1 tablet by mouth once daily. No current facility-administered medications for this visit. 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 Alcohol use: Yes Comment: Seldom Drug use: No FAMILY HISTORY: FAMILY HISTORY Problem Relation Age of Onset - Emphysema Mother - Arthritis Sister - Hypertension Maternal Grandmother REVIEW OF SYMPTOMS: The review of systems data was entered by the nurse and reviewed by ne Nursing Notes: Berta Nicholas RN 11/28/2017 1:24 PM Signed REVIEW OF SYSTEMS: General: The patient denies fatigue, denies weight loss, denies weight gain, denies feeling hot, and denies feelings of cold. Eyes: The patient NOTES glaucoma, denies eye injury/surgery, wears glasses or contacts. Ear/Nose/Throat: The patient denies allergies, denies hayfever, denies ear infections, and denies bloody noses. Cardiovascular: The patient denies chest pain, denies heart disease, NOTES high blood pressure,denies cardiac stent, denies prior heart attack, denies irregular heart beat, NOTES high cholesterol, denies poor circulation, denies heart failure, other cardiac issues, denies claudication, denies cold feet, denies peripheral arterial stent. Respiratory: The patient denies tuberculosis, denies pneumonia, denies frequent cough, denies pulmonary embolism, denies shortness of breath, and denies coughing up blood. Gastrointestinal: The patient denies difficulty swallowing, NOTES acid reflux, denies ulcers, denies vomiting, denies jaundice/hepatitis, denies gallbladder problems, denies black or tarry stools, denies hemorrhoids, denies bleeding from rectum, denies diverticulitis, denies constipation, denies diarrhea, denies loss of stool control, and denies hernias. Kidney/Bladder: The patient denies kidney stones, denies urine infections, and denies bloody urine. Skin: The patient notes a history of skin cancer, denies bleeding/changing moles, and denies a history of skin rash. Neurologic: The patient denies a history of epilepsy/convulsions, denies headaches, denies head/spinal injuries, and denies stroke/TIA. Psychiatric: The patient denies psychiatric medications, notes depression, and denies voices, denies substance abuse. Endocrine: The patient denies thyroid disorders, denies diabetes, and denies hormonal problems. Hematologic: The patient denies a history of bruising, denies bleeding, and denies anemia, denies blood clots. Infections: The patient denies a history of measles and mumps, denies rheumatic fever, and denies sexually transmitted diseases. Musculoskeletal: The patient denies back pain/injury, denies back problems, denies sciatica, denies knee/foot trouble, denies arthritis, or denies gout. When was patient's last Mammogram screening? N/A Last Colonoscopy: 2007 Berta Nicholas RN .confimedit PHYSICAL EXAMINATION: General: The patient is 72 year old male, well nourished, well hydrated in no acute distress. The patient is oriented to time, place, and person. VITALS: Blood pressure 122/84, pulse 76, temperature 37 ?C (98.6 ?F), weight 116.1 kg (256 lb). Body mass index is 33.78 kg/m?. HEENT: Normal cephalic, ataumatic, pupils are equally round, sclera are anicteric, mucous membranes are moist, oropharynx is clear. Neck has no masses, asymmetry or lymphadenopathy. Respiratory: Clear to auscultation and percussion. Normal respiratory excursion and pattern. Cardiac: Examination is regular rate and rhythm. Abdominal exam: Soft, nontender, with no palpable masses. No hepatosplenomegaly. No palpable hernias. Rectal exam: exam deferred Extremities: no clubbing, cyanosis or edema. No adenopathy. Other: LABORATORY VALUES: As Noted RADIOLOGIC STUDIES: As Noted Assessment IMPRESSION: encounter for screening colonoscopy. History of AAA repair in 08/2017 PLAN: We will plan for colonoscopy with MAC in November. We discussed the risks and benefits of the planned endoscopy. I have informed the patient that complications can occur including failure to complete the endoscopy and perforation. The patient had the opportunity to ask questions concerning the planned endoscopy. My staff has also explained the procedure to the patient in understandable terms and has given the patient printed material concerning the procedure. The patient freely consents to surgery. I plan to use golytely bowel preparation for endoscopy The patient has medical comorbidities for which I plan to perform the procedure under monitored anesthetic care. Diagnoses: (Z12.11) Screen for colon cancer (primary encounter diagnosis) My findings have been communicated to Dr. Hughes via shared medical record. This note will be forwarded to Dr. Alvin Hughes III MD. Return to Clinic: The patient is instructed to follow-up with me 1 week post operatively. Berta Chow PA-C Referring Provider: ALVIN HUGHES III [[id number]] Allergies As of Date: 11/28/2017 Noted Allergy Reaction LIPITOR (ATORVASTATIN CALCIUM) 03/11/2005 5 - Intolerance medical tape [Other] 03/11/2005 9 - Itching ROSUVASTATIN CALCIUM 03/02/2017 5 - Intolerance Date Reviewed: 11/28/2017 Reviewed by: Berta Chow (Pa) - Fully Assessed Reason for Visit: Consult [173] Cmt: colonoscopy Primary Visit Diagnosis:Screen for colon cancer [Z12.11] Order(s):peg 3350-Electrolytes (GOLYTELY) 236-22.74-6.74 - 5.86 gram suspensionTake 4,000 mL by mouth one time only for 1 dose.Disp: 1 BottleRfl: 0 COLONOSCOPY SCRN NOT HIGH RISK [[id number]] Order #: [id number] FUTURE Prescriptions as of 11/28/2017 Sig: AMLODIPINE 5 MG TABLET Take 5 mg by mouth once daily. CARVEDILOL 3.125 MG TABLET Take 1 tablet by mouth twice * OMEPRAZOLE 20 MG CAPSULE,ALEKS* Take 1 capsule by mouth every* TAMSULOSIN 0.4 MG CAPSULE Take 1 capsule by mouth once * FLUOXETINE 20 MG CAPSULE Take 1 capsule by mouth once * BRIMONIDINE 0.2 % EYE DROPS Use 1 Drop in both eyes twice* CHOLECALCIFEROL (VITAMIN D3) * Take 1,000 Units by mouth onc* TIMOLOL MALEATE 0.5 % EYE SUZY* Use 1 Drop in both eyes twice* FINASTERIDE 5 MG TABLET Take 1 tablet by mouth once d* ASPIRIN 81 MG TABLET,DELAYED * Take 1 tablet by mouth once d* PEG 3350-ELECTROLYTES 236 GRA* Take 4,000 mL by mouth one ti* Problem List As Of Date 11/28/2017 Noted Resolved Hyperlipemia [E78.5] INVALID FOR* ESOPHAGEAL REFLUX [K21.9] More... 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 Eyes: The patient NOTES glaucoma, denies eye injury/surgery, wears glasses or contacts. Ear/Nose/Throat: The patient denies allergies, denies hayfever, denies ear infections, and denies bloody noses. Cardiovascular: The patient denies chest pain, denies heart disease, NOTES high blood pressure,denies cardiac stent, denies prior heart attack, denies irregular heart beat, NOTES high cholesterol, denies poor circulation, denies heart failure, other cardiac issues, denies claudication, denies cold feet, denies peripheral arterial stent. Respiratory: The patient denies tuberculosis, denies pneumonia, denies frequent cough, denies pulmonary embolism, denies shortness of breath, and denies coughing up blood. Gastrointestinal: The patient denies difficulty swallowing, NOTES acid reflux, denies ulcers, denies vomiting, denies jaundice/hepatitis, denies gallbladder problems, denies black or tarry stools, denies hemorrhoids, denies bleeding from rectum, denies diverticulitis, denies constipation, denies diarrhea, denies loss of stool control, and denies hernias. Kidney/Bladder: The patient denies kidney stones, denies urine infections, and denies bloody urine. Skin: The patient notes a history of skin cancer, denies bleeding/changing moles, and denies a history of skin rash. Neurologic: The patient denies a history of epilepsy/convulsions, denies headaches, denies head/spinal injuries, and denies stroke/TIA. Psychiatric: The patient denies psychiatric medications, notes depression, and denies voices, denies substance abuse. Endocrine: The patient denies thyroid disorders, denies diabetes, and denies hormonal problems. Hematologic: The patient denies a history of bruising, denies bleeding, and denies anemia, denies blood clots. Infections: The patient denies a history of measles and mumps, denies rheumatic fever, and denies sexually transmitted diseases. Musculoskeletal: The patient denies back pain/injury, denies back problems, denies sciatica, denies knee/foot trouble, denies arthritis, or denies gout. When was patient's last Mammogram screening? N/A Last Colonoscopy: 2007 Berta Nicholas RN Prescriptions ordered this encounter Disp Refills Start End PEG 3350-ELECTROLYTES 236 GRAM-22.74* 1 Fredy* 0 11/28/2017 11/28/2017 Route: ORAL Sig: Take 4,000 mL by mouth one time only for 1 dose. Follow-up and Disposition History Recorded Encounter Status:Closed by BERTA CHOW PA-C on 11/28/17 SURGERY VISIT REPORT Observed: 11/26/2017 Status: F Source: MOTT 1:17 PM [facility] REPOSITORY [facility] [address] [place] [address]. [address] [place] [address] OFFICE VISIT Date of Service: 11/26/17 MR#: [id number] Acct: [id number] Name: VICKI RANDLE Rep #: [id number] : 1945 Provider: Nam Hughes MD Age/Sex: 72/M Location: [facility] Status: Signed Intake Vital Signs11/26/17 Blood Pressure 143/86 11/26/17 Blood Pressure Location Lt brachial 11/26/17 Blood Pressure Position Sitting Intake Visit Reasons: F/U CT 11/20 Results/AAA Graft stent 09/09/17 Chief Complaint: AAA repair Administrative Intern Required: No Is patient in pain?: No Allergies adhesive Adverse Reaction (Verified 11/26/17 12:56) Itching atorvastatin [From Lipitor] Adverse Reaction (Verified 11/26/17 12:56) Other rosuvastatin calcium [From Crestor] Adverse Reaction (Verified 11/26/17 12:56) ACHING Medications Finasteride [Proscar] 5 mg PO DAILY 11/18/13 [History Confirmed 11/26/17] Omeprazole [Prilosec] 20 mg PO DAILY 11/18/13 [History Confirmed 11/26/17] Tamsulosin HCl [Flomax] 0.4 mg PO DAILY 11/18/13 [History Confirmed 11/26/17] Aspirin E.C. [Ecotrin] 81 mg PO DAILY@0800 12/27/16 [History Confirmed 11/26/17] Fluoxetine HCl [Prozac] 20 mg PO DAILY 12/27/16 [History Confirmed 11/26/17] brimonidine 0.2 % eye drops 1 drp OPHTHALMIC BID ml 08/05/17 [History Confirmed 11/26/17] timolol maleate 0.5 % eye drops 1 drp OPHTHALMIC BID 08/05/17 [History Confirmed 11/26/17] Imiquimod 1 applic TOPICAL 5XW 09/09/17 [History Confirmed 11/26/17] Amlodipine [Norvasc] 10 mg PO DAILY #30 tab 09/10/17 [Rx Confirmed 11/26/17] Carvedilol [Coreg (Beta Junito)] 3.125 mg PO BID #60 tab 09/10/17 [Rx Confirmed 11/26/17] Hydrocodone Bitart/Apap 5-325 [[place] 5/325] 1 - 2 tab PO Q4H PRN PRN 3 Days #10 tab 09/10/17 [Rx Confirmed 11/26/17] PFSH Medical History Abdominal aortic aneurysm (AAA) (Acute) Neoplasm of skin of left cheek (Chronic) Neoplasm of skin of forearm (Chronic) Neoplasm of skin of hand (Chronic) Neoplasm of skin of ear (Chronic) 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) Neoplasm of skin of upper arm (Chronic) Neoplasm of skin of neck (Chronic) Neoplasm of skin of hand (Chronic) Neoplasm of skin of forearm (Chronic) Personal history of skin cancer (Chronic) 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) AAA (abdominal aortic aneurysm) (Acute) ACTINIC LESION WITH SEVERE ATYPIA (Acute) ATYPICAL SQUAMOUS EPITHELIAL LESION WITH SOLAR KERATOSIS (Acute) ATYPICAL SQUAMOUS LESION LEFT PREAURICULAR AREA (Acute) Actinic keratosis (Acute) Actinic skin damage (Acute) Basal cell carcinoma (Acute) Carpal tunnel syndrome (Acute) Cataract (Acute) GERD (gastroesophageal reflux disease) (Acute) Hyperlipidemia (Acute) INFLAMED ACTINIC KERATOSIS (Acute) INFLAMED ACTINIC KERATOSIS RIGHT VOLAR FOREARM (Acute) Nodule of right lung (Acute) Prostate enlargement (Acute) Pulmonary emphysema (Acute) SCATTERED ACTINIC DAMAGE ON FACE AND UPPER EXTREMITIES (Acute) Seborrheic keratosis (Acute) Situational depression (Acute) Solar keratosis (Acute) Squamous cell carcinoma (Acute) Squamous cell carcinoma in situ (Acute) Squamous cell carcinoma in situ (Acute) Squamous cell carcinoma in situ (Acute) Venous insufficiency of both lower extremities (Acute) Hypertension (Chronic) Surgical History EXCISION ATYPICAL SQUAMOUS LESION (Acute) EXCISION LESIONS AND SKIN CANCERS (Acute) EXCISION OF SKIN CANCER FACE AND HANDS (Acute) H/O knee surgery (Acute) History of basal cell carcinoma excision (Acute) History of carpal tunnel surgery (Acute) History of cholecystectomy (Acute) History of squamous cell carcinoma excision (Acute) History of squamous cell carcinoma excision (Acute) Hx of cataract surgery (Acute) INTRADERMAL EXCISION LESIONS (Acute) S/P AAA repair (Acute) Family History Sister Diabetes Social History housing: house Smoking Status: Current some day smoker second hand exposure: No quit status: has quit before alcohol intake: current details: [employer] SOCIAL substance use type: does not use what type of physical activity do you participate in: other seatbelt use: always do you feel safe at home: Yes additional social history: SUN EXPOSURE: FREQUENTLY HPI HPI HPI: VICKI RANDLE, is a 72 M who presents to the office today for surgical follow-up regarding his infrarenal abdominal aortic aneurysm stent graft repair that I performed for him September 09, 2017. The main body device deployed percutaneously from the right common femoral artery was a [place] excluder 26 x 14.5 x 12. The contralateral limb was a 20 x 14 sequeira bottom. An additional extension was placed on the right being a 20 x 12 similar sequeira bottom device. At the time of surgery is noted to have persistent flow in his inferior mesenteric artery and in the lumbar. Close follow-up was felt to be pertinent. At the [facility] on November 20, 2017 he had a CTA of the abdomen. Preoperatively his infrarenal abdominal aortic aneurysm was felt to be 4.8 cm. On the most recent examination the [place] sac has a measurement of 4.6 cm. The stent graft appears to be in good position. 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 Very minimal blush is seen within the [place] sac. Of additional note is the patient has a small left subpulmonic effusion. The patient admits that he does not get any type of routine organized exercise. He has no abdominal or back pain. Current blood pressure is 143/86 Exam Cardio Other: Bilateral carotids and brachials and radials are 3+ Bilateral femorals ,popliteals, DPs and PTs are 3+ GI Palpation: soft, no hepatosplenomegaly Other: Not pulsatile, not expansile, nontender Assessment AND Plan Problems 1. Abdominal aortic aneurysm (AAA) without rupture I71.4 Plan The patient appears to have a well-positioned infrarenal abdominal aortic stent graft. It appears that his aneurysm has gone from 4.8-4.6 cm. Small type II endoleak is noted via the inferior mesenteric and a lumbar. These do not appear to be affecting the [place] aneurysmal sac size. I recommended the patient that we obtain duplex imaging of his abdominal aortic at 6 months. I do not believe that his type II endoleak require intervention at this setting. He has had an opportunity to ask and have questions answered. On additional note he suggested that he is still having troubles with variable blood pressure and that he is working with Dr. Alvin Hughes, III regarding this issue Nam Hughes M.D., F.A.C.S. Cc: Dr. Alvin Hughes, III Orders Orders: Coding Level of Care Code Off vis,est,level 2 Diagnoses Abdominal aortic aneurysm (AAA) without rupture I71.4 Presence of rupture: without rupture 11/26/17 1317 <Electronically signed by Nam Hughes MD> Date Nam Hughes MD Cosigner Signature: Date (if applicable) CC: Alvin Hughes III, MD CREATININE FINGERSTICK Collected: 11/20/2017 Status: F Source: MOTT 1:18 PM [facility] REPOSITORY TYPE CODE TESTS RESULT OUT OF RANGE REFERENCE UNITS LAB L9100.0210 0.70-1.30 mg/dL Normal CREATININE WB 0.9 LAB L9100.0220 >60 mL/min EGFR WB Normal > 60.0000 Performed By: #### L9100.0200 #### [facility] Point of [facility] [place] [address] PROGRESS Observed: 11/20/2017 Status: COMPLETED Source: [place] J[place] 10:39 AM [facility] REPOSITORY HNO ID: [id number] Author: Laura Thomas LPN Service: (none) Author Type: (none) Type: Progress Notes Filed: 11/20/2017 10:51 AM Note Text: Manual Readin/62 Pulse: 62 Reason for blood pressure check - Medication adjustment. Pt was taken off amlodipine on 11/07/17. Home BPs have been elevated, up to 188/99, 152/106. Pt resumed taking the medication ~ 1 wk ago. Taking amlodipine 5mg daily. Pt checked BP in office today with his cuff AND it was 119/70, BP kevin reading was 109/75. Patient is: Taking medication as prescribed Yes Took medication today Yes If no, date medication last taken na Experiencing side effects No Pt denies chest pain, sob, headaches or dizziness. Pt denies smoking, does use chew daily. Pt denies caffeine intake. Pt is alert AND oriented. Pt has been identified by name and birthdate: Yes Allergies reviewed: Yes Latex allergy: no. Medication - prescribed and OTC reviewed and updated: Yes Do you need any prescription refills prior to your next visit: No Health Maintenance: Reviewed and not up to date and provider notified Pt aware he will be contacted by pcp after review. Laura Thomas LPN CNNURSE Observed: 11/20/2017 Status: COMPLETED Source: [place] 10:30 AM [facility] REPOSITORY Nurse Visit (FAMPWS) VICKI RANDLE ([id number]) 1945 M Date Time Provider Department 11/20/17 10:30 AM [facility] During your visit today, we recorded the following information about you: Pulse Blood pressure 62/minute 98/62 Laura Thomas LPN 11/20/2017 10:51 AM Signed Manual Readin/62 Pulse: 62 Reason for blood pressure check - Medication adjustment. Pt was taken off amlodipine on 11/07/17. Home BPs have been elevated, up to 188/99, 152/106. Pt resumed taking the medication ~ 1 wk ago. Taking amlodipine 5mg daily. Pt checked BP in office today with his cuff AND it was 119/70, BP kevin reading was 109/75. Patient is: Taking medication as prescribed Yes Took medication today Yes If no, date medication last taken na Experiencing side effects No Pt denies chest pain, sob, headaches or dizziness. Pt denies smoking, does use chew daily. Pt denies caffeine intake. Pt is alert AND oriented. Pt has been identified by name and birthdate: Yes Allergies reviewed: Yes Latex allergy: no. Medication - prescribed and OTC reviewed and updated: Yes Do you need any prescription refills prior to your next visit: No Health Maintenance: Reviewed and not up to date and provider notified Pt aware he will be contacted by pcp after review. Laura Thomas LPN Referring Provider: ALVIN HUGHES III [[id number]] Allergies As of Date: 11/20/2017 Noted Allergy Reaction LIPITOR (ATORVASTATIN CALCIUM) 03/11/2005 5 - Intolerance medical tape [Other] 03/11/2005 9 - Itching ROSUVASTATIN CALCIUM 03/02/2017 5 - Intolerance Date Reviewed: 11/20/2017 Reviewed by: Laura Thomas LPN - Fully Assessed Reason for Visit: Blood Pressure Check [195] Visit Diagnosis:Hypertension, essential [I10] Prescriptions as of 11/20/2017 Sig: AMLODIPINE 5 MG TABLET Take 5 mg by mouth once daily. CARVEDILOL 3.125 MG TABLET Take 1 tablet by mouth twice * OMEPRAZOLE 20 MG CAPSULE,ALEKS* Take 1 capsule by mouth every* TAMSULOSIN 0.4 MG CAPSULE Take 1 capsule by mouth once * FLUOXETINE 20 MG CAPSULE Take 1 capsule by mouth once * BRIMONIDINE 0.2 % EYE DROPS Use 1 Drop in both eyes twice* CHOLECALCIFEROL (VITAMIN D3) * Take 1,000 Units by mouth onc* TIMOLOL MALEATE 0.5 % EYE SUZY* Use 1 Drop in both eyes twice* FINASTERIDE 5 MG TABLET Take 1 tablet by mouth once d* ASPIRIN 81 MG TABLET,DELAYED * Take 1 tablet by mouth once d* Problem List As Of Date 11/20/2017 Noted Resolved Hyperlipemia [E78.5] INVALID FOR* ESOPHAGEAL REFLUX [K21.9] More... 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] INVALID FOR* Venous insufficiency of both lower extremities *INVALID FOR* Benign hypertension [I10] INVALID FOR* Episodic paroxysmal hemicrania, not intractable*INVALID FOR* Situational depression [F43.21] INVALID FOR* Pulmonary emphysema (HCC) [J43.9] INVALID FOR* Closed fracture of one rib of left side [S22.32*INVALID FOR*07/12/2017 Hypertension, essential [I10] INVALID FOR* Encounter Status:Closed by LAURA THOMAS LPN on 11/20/17 CTA ABDOMEN W/WO Observed: 11/20/2017 Status: F Source: GIL CONTRAST 12:00 AM [facility] REPOSITORY [facility] Imaging Services [address] [place] [address] CTA Abdomen W/WO Contrast MR#: [id number] Acct: [id number] Name: VICKI RANDLE Rep #: [id number] : 1945 M 72 From: Andres Jay MD PCP: Alvin Hughes III, MD Status: REG CLI Study: CTA Abdomen W/WO Contrast Date of Exam: 11/20/17 Exam# [id number] Ordering Dr: Nam Hughes MD STUDY: CTA OF THE ABDOMINAL AORTA REASON FOR EXAM: Male, 72 years old. Status post abdominal aortic aneurysm repair 09/09/2017. Follow-up. RADIATION DOSAGE (If Supplied By Facility): CTDIvol = ( 32.59 ) mGy, DLP = ( 986.13 ) mGycm TECHNIQUE: Axial CT angiography multi-detector data acquisition was obtained from the lung bases to the mid pelvis following intravenous administration of 100mL ml of Isovue 370 contrast. Axial images and MIP images were reconstructed from the axial data set. Post-processing of the angiographic images was performed, with multiplanar reformation and 3D reconstruction. Individualized dose optimization techniques were used for this CT. TECHNICAL QUALITY: Good COMPARISON: CTA abdomen and pelvis 08/07/2017, 03/02/2017. FINDINGS: Body wall soft tissues: No acute process. Osseous structures: Mild scoliosis and mild lumbar spondylosis with osteopenia. Inferior chest: Mild hyperlucency at the lung bases suggests underlying COPD. The right lung bases otherwise clear. At the left lung base, mild atelectasis, small subpulmonic effusion. Distal esophagus normal, mild cardiomegaly with no pericardial effusion. Hepatobiliary: Cholecystectomy, otherwise unremarkable. Pancreas: No acute process. Spleen: No acute process. Adrenal glands: No acute process. Urogenital: Stable multiple benign renal cysts. Otherwise symmetric nephrograms and normal renal cortical thickness. Normal collecting systems, ureters. Retroperitoneum: No mass or lymphadenopathy. Stomach and small bowel: Normal. Large bowel: Normal appendix. Minimal diverticulosis of the sigmoid without diverticulitis. Vasculature: Aortoiliac stent graft. Proximal landing zone just below the takeoff of the renal arteries. Distal landing zones in the common iliac arteries. The graft is widely patent and well-positioned, and normally expanded There is no hyperdense thrombus within the [place] aneurysm sac. The [place] sac has a maximum diameter of 4.6 cm, fusiform shape with a length of 6.4 cm. There is evidence of very tiny type II endoleak involving inferior mesenteric artery, and involving a lumbar artery, very minimal blush of contrast within the [place] sac. CT/CTA Abdomen W/WO Contrast IMPRESSION: Appropriate positioning of the aortoiliac stent. Minimal type II endoleak's. Small left subpulmonic effusion with left lung base atelectasis. Electronically Signed: Andres Misty, at 8:38 EDT Tel , Service support , CC: Alvin Hughes III, MD; Nam Hughes MD Urology Physician: Signed CNNURSE Observed: 11/07/2017 Status: COMPLETED Source: [place] 10:00 AM [facility] REPOSITORY Nurse Visit (FAMPWS) VICKI RANDLE ([id number]) 1945 M Date Time Provider Department 11/07/17 10:00 AM [place] NURSE FAMPWS During your visit today, we recorded the following information about you: Pulse Blood pressure 72/minute 100/72 Arlet Nitta [place] [employer] 11/07/2017 9:58 AM Signed Manual Readin/72 Pulse: 72 (right arm) BP 98/66 (left arm) Reason for blood pressure check - Medication adjustment Patient is: Taking medication as prescribed Yes Took medication today Yes If no, date medication last taken N/A Experiencing side effects No BP continued to be low at nurse visit 10/21/17. Amlodipine was decreased to 2.5mg daily. Tolerating medication change well. Denies any chest pain, shortness of breath, dizziness, or headaches. Drinks decaf. Past personal history of tobacco use; no current exposure. Alert and oriented. Pt has been identified by name and birthdate: Yes Allergies reviewed: Yes Latex allergy: no. Medication - prescribed and OTC reviewed and updated: Yes Do you need any prescription refills prior to your next visit: No Health Maintenance: Reviewed and not up to date and provider notified Patient advised that he would be contacted after review by PCP. Arlet Bland LPN Referring Provider: ALVIN HUGHES III [[id number]] Allergies As of Date: 11/07/2017 Noted Allergy Reaction LIPITOR (ATORVASTATIN CALCIUM) 03/11/2005 5 - Intolerance medical tape [Other] 03/11/2005 9 - Itching ROSUVASTATIN CALCIUM 03/02/2017 5 - Intolerance Date Reviewed: 10/01/2017 Reviewed by: Neva Joseph LPN - Fully Assessed Reason for Visit: Blood Pressure Check [195] Primary Visit Diagnosis:Hypertension, essential [I10] Prescriptions as of 11/07/2017 Sig: AMLODIPINE 5 MG TABLET Take 0.5 tablets by mouth onc* CARVEDILOL 3.125 MG TABLET Take 1 tablet by mouth twice * OMEPRAZOLE 20 MG CAPSULE,ALEKS* Take 1 capsule by mouth every* TAMSULOSIN 0.4 MG CAPSULE Take 1 capsule by mouth once * FLUOXETINE 20 MG CAPSULE Take 1 capsule by mouth once * BRIMONIDINE 0.2 % EYE DROPS Use 1 Drop in both eyes twice* CHOLECALCIFEROL (VITAMIN D3) * Take 1,000 Units by mouth onc* TIMOLOL MALEATE 0.5 % EYE SUZY* Use 1 Drop in both eyes twice* FINASTERIDE 5 MG TABLET Take 1 tablet by mouth once d* ASPIRIN 81 MG TABLET,DELAYED * Take 1 tablet by mouth once d* Problem List As Of Date 11/07/2017 Noted Resolved Hyperlipemia [E78.5] INVALID FOR* ESOPHAGEAL REFLUX [K21.9] More... 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] INVALID FOR* Venous insufficiency of both lower extremities *INVALID FOR* Benign hypertension [I10] INVALID FOR* Episodic paroxysmal hemicrania, not intractable*INVALID FOR* Situational depression [F43.21] INVALID FOR* Pulmonary emphysema (HCC) [J43.9] INVALID FOR* Closed fracture of one rib of left side [S22.32*INVALID FOR*07/12/2017 Hypertension, essential [I10] INVALID FOR* Encounter Status:Closed by ARLET BLAND LPN on 11/07/17 PROGRESS Observed: 11/07/2017 Status: COMPLETED Source: [place] 9:52 AM [facility] REPOSITORY HNO ID: [id number] Author: Arlet Bland LPN Service: (none) Author Type: (none) Type: Progress Notes Filed: 11/07/2017 9:58 AM Note Text: Manual Readin/72 Pulse: 72 (right arm) BP 98/66 (left arm) Reason for blood pressure check - Medication adjustment Patient is: Taking medication as prescribed Yes Took medication today Yes If no, date medication last taken N/A Experiencing side effects No BP continued to be low at nurse visit 10/21/17. Amlodipine was decreased to 2.5mg daily. Tolerating medication change well. Denies any chest pain, shortness of breath, dizziness, or headaches. Drinks decaf. Past personal history of tobacco use; no current exposure. Alert and oriented. Pt has been identified by name and birthdate: Yes Allergies reviewed: Yes Latex allergy: no. Medication - prescribed and OTC reviewed and updated: Yes Do you need any prescription refills prior to your next visit: No Health Maintenance: Reviewed and not up to date and provider notified Patient advised that he would be contacted after review by PCP. Arlet Bland LPN PROGRESS Observed: 10/21/2017 Status: COMPLETED Source: [place] 10:24 AM [facility] REPOSITORY HNO ID: [id number] Author: Arlet Bland LPN Service: (none) Author Type: (none) Type: Progress Notes Filed: 10/21/2017 10:31 AM Note Text: Manual Readin/64 Pulse: 68 (left arm) 96/68 ( right arm) Reason for blood pressure check - Medication adjustment Patient is: Taking medication as prescribed Yes Took medication today Yes If no, date medication last taken N/A Experiencing side effects No BP was low at last appt 10/01/17. Medication was changed after recent hospital admission and new changes at last appt; Amlodipine was decreased to 5mg and Coreg was resumed at 3.25mg twice daily. Tolerating medication changes well. Denies any chest pain, unusual shortness of breath, or headaches. Does note some random dizziness. No caffeine use. Current everyday tobacco use. Alert and oriented. Pt has been identified by name and birthdate: Yes Allergies reviewed: Yes Latex allergy: no. Medication - prescribed and OTC reviewed and updated: Yes Do you need any prescription refills prior to your next visit: No Health Maintenance: Reviewed and not up to date and provider notified Patient advised to continue with current medications and would be contacted with any further instructions after review by PCP. Arlet Bland LPN CNNURSE Observed: 10/21/2017 Status: COMPLETED Source: [place] 10:15 AM [facility] REPOSITORY Nurse Visit (FAMPWS) VICKI RANDLE ([id number]) 1945 M Date Time Provider Department 10/21/17 10:15 AM [place] NURSE FAMPWS During your visit today, we recorded the following information about you: Pulse Blood pressure 68/minute 110/64 Arlet Bland LPN 10/21/2017 10:31 AM Signed Manual Readin/64 Pulse: 68 (left arm) 96/68 ( right arm) Reason for blood pressure check - Medication adjustment Patient is: Taking medication as prescribed Yes Took medication today Yes If no, date medication last taken N/A Experiencing side effects No BP was low at last appt 10/01/17. Medication was changed after recent hospital admission and new changes at last appt; Amlodipine was decreased to 5mg and Coreg was resumed at 3.25mg twice daily. Tolerating medication changes well. Denies any chest pain, unusual shortness of breath, or headaches. Does note some random dizziness. No caffeine use. Current everyday tobacco use. Alert and oriented. Pt has been identified by name and birthdate: Yes Allergies reviewed: Yes Latex allergy: no. Medication - prescribed and OTC reviewed and updated: Yes Do you need any prescription refills prior to your next visit: No Health Maintenance: Reviewed and not up to date and provider notified Patient advised to continue with current medications and would be contacted with any further instructions after review by PCP. Arlet Bland LPN Referring Provider: ALVIN HUGHES III [[id number]] Allergies As of Date: 10/21/2017 Noted Allergy Reaction LIPITOR (ATORVASTATIN CALCIUM) 03/11/2005 5 - Intolerance medical tape [Other] 03/11/2005 9 - Itching ROSUVASTATIN CALCIUM 03/02/2017 5 - Intolerance Date Reviewed: 10/01/2017 Reviewed by: Neva Joseph LPN - Fully Assessed Reason for Visit: Blood Pressure Check [195] Primary Visit Diagnosis:Hypertension, essential [I10] Prescriptions as of 10/21/2017 Sig: CARVEDILOL 3.125 MG TABLET Take 1 tablet by mouth twice * AMLODIPINE 5 MG TABLET Take 1 tablet by mouth once d* OMEPRAZOLE 20 MG CAPSULE,ALEKS* Take 1 capsule by mouth every* TAMSULOSIN 0.4 MG CAPSULE Take 1 capsule by mouth once * FLUOXETINE 20 MG CAPSULE Take 1 capsule by mouth once * BRIMONIDINE 0.2 % EYE DROPS Use 1 Drop in both eyes twice* CHOLECALCIFEROL (VITAMIN D3) * Take 1,000 Units by mouth onc* TIMOLOL MALEATE 0.5 % EYE SUZY* Use 1 Drop in both eyes twice* FINASTERIDE 5 MG TABLET Take 1 tablet by mouth once d* ASPIRIN 81 MG TABLET,DELAYED * Take 1 tablet by mouth once d* Problem List As Of Date 10/21/2017 Noted Resolved Hyperlipemia [E78.5] INVALID FOR* ESOPHAGEAL REFLUX [K21.9] More... 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] INVALID FOR* Venous insufficiency of both lower extremities *INVALID FOR* Benign hypertension [I10] INVALID FOR* Episodic paroxysmal hemicrania, not intractable*INVALID FOR* Situational depression [F43.21] INVALID FOR* Pulmonary emphysema (HCC) [J43.9] INVALID FOR* Closed fracture of one rib of left side [S22.32*INVALID FOR*07/12/2017 Hypertension, essential [I10] INVALID FOR* Encounter Status:Closed by ARLET BLAND LPN on 10/21/17 PROGRESS Observed: 10/01/2017 Status: COMPLETED Source: [place] 1:[address] [facility] [place] REPOSITORY O ID: [id number] Author: Alvin Hughes III Service: (none) Author Type: Physician Type: Progress Notes Filed: 10/01/2017 5:11 PM Note Text: SUBJECTIVE: This is a 72 year old male that is here today for Hospital Discharge Follow up. s/p AAA repair 09/09 complicated by severe hypertension. Started on amlodipine 10mg daily and coreg 3.25mg BID. He has some orthostatic lightheadedness in the afternoons. His dtr told him to reduce coreg to once/day at bedtime. Home bp 120/68. No chest pain, CHAU--able to ride tractor. Surgical note reviewed PAST MEDICAL HISTORY Diagnosis Date - AAA (abdominal aortic aneurysm) ([facility]) 02/06/2012 01/10/17: CT abd 4.8 cm - Benign hypertension 07/13/2015 - Bruit right carotid artery - Esophageal reflux Gastroesophageal reflux - Facet arthritis of lumbar region ([facility]) 06/27/2014 - Hypertrophy of prostate without urinary obstruction and other lower urinary tract symptoms (LUTS) Hypertrophy of the prostate w/o obstruction - Mixed hyperlipidemia Hyperlipidemia - Nodule of right lung 04/17/2012 - Other specified disorder of gallbladder 09/07/07 - Personal history of colonic polyps - Pulmonary emphysema (HCC) 12/31/2016 - Sebaceous cyst - Situational depression 07/03/2016 - Skin cancer Non-melanoma. - Squamous cell carcinoma 04/04/2015 See scanned documents - Venous insufficiency of both lower extremities 07/01/2014 Current Outpatient Prescriptions on File Prior to Visit: omeprazole (PRILOSEC) 20 mg capsule Take 1 capsule by mouth every morning. tamsulosin ER (FLOMAX) 0.4 mg cp24 Take 1 capsule by mouth once daily. FLUoxetine (PROZAC) 20 mg capsule Take 1 capsule by mouth once daily. brimonidine (ALPHAGAN) 0.2 % ophthalmic solution Use 1 Drop in both eyes twice daily. cholecalciferol (VITAMIN D3) 1,000 unit tab tablet Take 1,000 Units by mouth once daily. timolol maleate (TIMOPTIC) 0.5 % ophthalmic solution Use 1 Drop in both eyes twice daily. finasteride (PROSCAR) 5 mg tablet Take 1 tablet by mouth once daily. aspirin, enteric coated (ECOTRIN LOW STRENGTH) 81 mg EC tablet Take 1 tablet by mouth once daily. No current facility-administered medications on file prior to visit. FAMILY HISTORY Problem Relation Age of Onset - Arthritis Sister - Emphysema Mother - Hypertension Maternal Grandmother Social History Substance Use Topics - Smoking status: Former Smoker Packs/day: 1.00 Years: 30.00 Types: Cigarettes Quit date: 06/02/1988 - Smokeless tobacco: Current User Types: Chew Comment: Brief relaps after of spouse. - Alcohol use Yes Comment: Seldom BP 106/72 Pulse 74 Resp 20 Wt 115.2 kg (254 lb) BMI 33.51 kg/m? . OBJECTIVE: APPEARANCE Well appearing, alert, in no acute distress, well-hydrated, well nourished. HEART RRR with normal S1 and S2, no murmurs, no gallops, no JVD appreciated ABDOMEN bowel sounds normoactive, no bruits, soft, non-tender, non-distended, without organomegaly or palpable masses, no tenderness to palpation ASSESSMENT: hypertension--excessive medication AAA repair--good healing PLAN: reduce norvasc 5mg daily resume carvedilol 3.25mg twice/day check home BP 1-2 times/day nurse BP check in 2 wks continue ASA 81mg daily and other medications Alvin Hughes III MD CNOV Observed: 10/01/2017 Status: COMPLETED Source: [place] 1:20 PM [facility] REPOSITORY Office Visit (FAMPWS) VICKI RANDLE ([id number]) 1945 M Date Time Provider Department 10/01/17 1:20 PM ALVIN HUGHES III During your visit today, we recorded the following information about you: Pulse Respiration Blood pressure Weight 74/minute 20/minute 106/72 115.2 kg Alvin Hughes III MD 10/01/2017 5:11 PM Signed SUBJECTIVE: This is a 72 year old male that is here today for Hospital Discharge Follow up. s/p AAA repair 09/09 complicated by severe hypertension. Started on amlodipine 10mg daily and coreg 3.25mg BID. He has some orthostatic lightheadedness in the afternoons. His dtr told him to reduce coreg to once/day at bedtime. Home bp 120/68. No chest pain, CHAU--able to ride tractor. Surgical note reviewed PAST MEDICAL HISTORY Diagnosis Date - AAA (abdominal aortic aneurysm) (HCC) 02/06/2012 01/10/17: CT abd 4.8 cm - Benign hypertension 07/13/2015 - Bruit right carotid artery - Esophageal reflux Gastroesophageal reflux - Facet arthritis of lumbar region (HCC) 06/27/2014 - Hypertrophy of prostate without urinary obstruction and other lower urinary tract symptoms (LUTS) Hypertrophy of the prostate w/o obstruction - Mixed hyperlipidemia Hyperlipidemia - Nodule of right lung 04/17/2012 - Other specified disorder of gallbladder 09/07/07 - Personal history of colonic polyps - Pulmonary emphysema (HCC) 12/31/2016 - Sebaceous cyst - Situational depression 07/03/2016 - Skin cancer Non-melanoma. - Squamous cell carcinoma 04/04/2015 See scanned documents - Venous insufficiency of both lower extremities 07/01/2014 Current Outpatient Prescriptions on File Prior to Visit: omeprazole (PRILOSEC) 20 mg capsule Take 1 capsule by mouth every morning. tamsulosin ER (FLOMAX) 0.4 mg cp24 Take 1 capsule by mouth once daily. FLUoxetine (PROZAC) 20 mg capsule Take 1 capsule by mouth once daily. brimonidine (ALPHAGAN) 0.2 % ophthalmic solution Use 1 Drop in both eyes twice daily. cholecalciferol (VITAMIN D3) 1,000 unit tab tablet Take 1,000 Units by mouth once daily. timolol maleate (TIMOPTIC) 0.5 % ophthalmic solution Use 1 Drop in both eyes twice daily. finasteride (PROSCAR) 5 mg tablet Take 1 tablet by mouth once daily. aspirin, enteric coated (ECOTRIN LOW STRENGTH) 81 mg EC tablet Take 1 tablet by mouth once daily. No current facility-administered medications on file prior to visit. FAMILY HISTORY Problem Relation Age of Onset - Arthritis Sister - Emphysema Mother - Hypertension Maternal Grandmother Social History Substance Use Topics - Smoking status: Former Smoker Packs/day: 1.00 Years: 30.00 Types: Cigarettes Quit date: 06/02/1988 - Smokeless tobacco: Current User Types: Chew Comment: Brief relaps after of spouse. - Alcohol use Yes Comment: Seldom BP 106/72 Pulse 74 Resp 20 Wt 115.2 kg (254 lb) BMI 33.51 kg/m? . OBJECTIVE: APPEARANCE Well appearing, alert, in no acute distress, well- hydrated, well nourished. HEART RRR with normal S1 and S2, no murmurs, no gallops, no JVD appreciated ABDOMEN bowel sounds normoactive, no bruits, soft, non-tender, non-distended, without organomegaly or palpable masses, no tenderness to palpation ASSESSMENT: hypertension--excessive medication AAA repair--good healing PLAN: reduce norvasc 5mg daily resume carvedilol 3.25mg twice/day check home BP 1-2 times/day nurse BP check in 2 wks continue ASA 81mg daily and other medications JACKSON Gay MD, III MD 10/01/2017 1:42 PM Signed PLAN: reduce norvasc 5mg daily resume carvedilol 3.25mg twice/day check home BP 1-2 times/day nurse BP check in 2 wks continue aspirin 81mg daily and other medications Alvin Hughes III MD Referring Provider: ALVIN HUGHES III [[id number]] Allergies As of Date: 10/01/2017 Noted Allergy Reaction LIPITOR (ATORVASTATIN CALCIUM) 03/11/2005 5 - Intolerance medical tape [Other] 03/11/2005 9 - Itching ROSUVASTATIN CALCIUM 03/02/2017 5 - Intolerance Date Reviewed: 10/01/2017 Reviewed by: Neva Joseph LPN - Fully Assessed Reason for Visit: Recheck [92] Cmt: blood pressure follow up Primary Visit Diagnosis:Abdominal aortic aneurysm (AAA) without rupture (HCC) [I71.4] Other Visit Diagnoses:Hypertension, essential [I10] Hospital discharge follow-up [Z09] Order(s):carvedilol (COREG) 3.125 mg tabletTake 1 tablet by mouth twice daily.Disp: 60 tabletRfl: 11 amLODIPine (NORVASC) 5 mg tabletTake 1 tablet by mouth once daily.Disp: 30 tabletRfl: 12 Prescriptions as of 10/01/2017 Sig: OMEPRAZOLE 20 MG CAPSULE,ALEKS* Take 1 capsule by mouth every* TAMSULOSIN 0.4 MG CAPSULE Take 1 capsule by mouth once * FLUOXETINE 20 MG CAPSULE Take 1 capsule by mouth once * BRIMONIDINE 0.2 % EYE DROPS Use 1 Drop in both eyes twice* CHOLECALCIFEROL (VITAMIN D3) * Take 1,000 Units by mouth onc* TIMOLOL MALEATE 0.5 % EYE SUZY* Use 1 Drop in both eyes twice* FINASTERIDE 5 MG TABLET Take 1 tablet by mouth once d* ASPIRIN 81 MG TABLET,DELAYED * Take 1 tablet by mouth once d* CARVEDILOL 3.125 MG TABLET Take 1 tablet by mouth twice * AMLODIPINE 5 MG TABLET Take 1 tablet by mouth once d* Problem List As Of Date 10/01/2017 Noted Resolved Hyperlipemia [E78.5] INVALID FOR* ESOPHAGEAL REFLUX [K21.9] More... 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] INVALID FOR* Venous insufficiency of both lower extremities *INVALID FOR* Benign hypertension [I10] INVALID FOR* Episodic paroxysmal hemicrania, not intractable*INVALID FOR* Situational depression [F43.21] INVALID FOR* Pulmonary emphysema (HCC) [J43.9] INVALID FOR* Closed fracture of one rib of left side [S22.32*INVALID FOR*07/12/2017 Hypertension, essential [I10] INVALID FOR* Other instructions from your clinician: PLAN: reduce norvasc 5mg daily resume carvedilol 3.25mg twice/day check home BP 1-2 times/day nurse BP check in 2 wks continue aspirin 81mg daily and other medications Alvin Hughes III MD Prescriptions ordered this encounter Disp Refills Start End CARVEDILOL 3.125 MG TABLET 60 t* 11 10/01/2017 Route: ORAL Sig: Take 1 tablet by mouth twice daily. AMLODIPINE 5 MG TABLET 30 t* 12 10/01/2017 Route: ORAL Sig: Take 1 tablet by mouth once daily. Medications Discontinued During This Encounter amLODIPine (NORVASC) 10 mg tablet 09/10/2017 10/01/2017 Class: Historical Med Sig: Disc: Dosage adjustment carvedilol (COREG) 3.125 mg tablet 09/10/2017 10/01/2017 Class: Historical Med Sig: Disc: Duplicate Entry Encounter Status:Closed by ALVIN HUGHES III, MD on 10/01/17 SURGERY VISIT REPORT Observed: 09/22/2017 Status: F Source: MOTT 4:05 PM [facility] REPOSITORY [facility] [address] [place] [address]. [address] [place] [address] OFFICE VISIT Date of Service: 09/22/17 MR#: [id number] Acct: [id number] Name: VICKI RANDLE Rep #: [id number] : 1945 Provider: Nam Hughes MD Age/Sex: 72/M Location: [facility] Status: Signed Intake Vital Signs09/22/17 Blood Pressure 112/69 09/22/17 Blood Pressure Location Rt brachial 09/22/17 Blood Pressure Position Sitting Intake Visit Reasons: F/U AAA GRAFT STENT 09/09/2017 Chief Complaint: AAA repair Administrative Intern Required: No Is patient in pain?: No Allergies adhesive Adverse Reaction (Verified 09/22/17 15:20) Itching atorvastatin [From Lipitor] Adverse Reaction (Verified 09/22/17 15:20) Other rosuvastatin calcium [From Crestor] Adverse Reaction (Verified 09/22/17 15:20) ACHING Medications Finasteride [Proscar] 5 mg PO DAILY 11/18/13 [History Confirmed 09/22/17] Omeprazole [Prilosec] 20 mg PO DAILY 11/18/13 [History Confirmed 09/22/17] Tamsulosin HCl [Flomax] 0.4 mg PO DAILY 11/18/13 [History Confirmed 09/22/17] Aspirin E.C. [Ecotrin] 81 mg PO DAILY@0800 12/27/16 [History Confirmed 09/22/17] Fluoxetine HCl [Prozac] 20 mg PO DAILY 12/27/16 [History Confirmed 09/22/17] brimonidine 0.2 % eye drops 1 drp OPHTHALMIC BID ml 08/05/17 [History Confirmed 09/22/17] timolol maleate 0.5 % eye drops 1 drp OPHTHALMIC BID 08/05/17 [History Confirmed 09/22/17] Imiquimod 1 applic TOPICAL 5XW 09/09/17 [History Confirmed 09/22/17] Amlodipine [Norvasc] 10 mg PO DAILY #30 tab 09/10/17 [Rx Confirmed 09/22/17] Carvedilol [Coreg (Beta Junito)] 3.125 mg PO BID #60 tab 09/10/17 [Rx Confirmed 09/22/17] Hydrocodone Bitart/Apap 5-325 [[place] 5/325] 1 - 2 tab PO Q4H PRN PRN 3 Days #10 tab 09/10/17 [Rx Confirmed 09/22/17] [facility] Medical History Abdominal aortic aneurysm (AAA) (Acute) Neoplasm of skin of left cheek (Chronic) Neoplasm of skin of forearm (Chronic) Neoplasm of skin of hand (Chronic) Neoplasm of skin of ear (Chronic) 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) Neoplasm of skin of upper arm (Chronic) Neoplasm of skin of neck (Chronic) Neoplasm of skin of hand (Chronic) Neoplasm of skin of forearm (Chronic) Personal history of skin cancer (Chronic) 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) AAA (abdominal aortic aneurysm) (Acute) ACTINIC LESION WITH SEVERE ATYPIA (Acute) ATYPICAL SQUAMOUS EPITHELIAL LESION WITH SOLAR KERATOSIS (Acute) ATYPICAL SQUAMOUS LESION LEFT PREAURICULAR AREA (Acute) Actinic keratosis (Acute) Actinic skin damage (Acute) Basal cell carcinoma (Acute) Carpal tunnel syndrome (Acute) Cataract (Acute) GERD (gastroesophageal reflux disease) (Acute) Hyperlipidemia (Acute) INFLAMED ACTINIC KERATOSIS (Acute) INFLAMED ACTINIC KERATOSIS RIGHT VOLAR FOREARM (Acute) Nodule of right lung (Acute) Prostate enlargement (Acute) Pulmonary emphysema (Acute) SCATTERED ACTINIC DAMAGE ON FACE AND UPPER EXTREMITIES (Acute) Seborrheic keratosis (Acute) Situational depression (Acute) Solar keratosis (Acute) Squamous cell carcinoma (Acute) Squamous cell carcinoma in situ (Acute) Squamous cell carcinoma in situ (Acute) Squamous cell carcinoma in situ (Acute) Venous insufficiency of both lower extremities (Acute) Hypertension (Chronic) Surgical History EXCISION ATYPICAL SQUAMOUS LESION (Acute) EXCISION LESIONS AND SKIN CANCERS (Acute) EXCISION OF SKIN CANCER FACE AND HANDS (Acute) H/O knee surgery (Acute) History of basal cell carcinoma excision (Acute) History of carpal tunnel surgery (Acute) History of cholecystectomy (Acute) History of squamous cell carcinoma excision (Acute) History of squamous cell carcinoma excision (Acute) Hx of cataract surgery (Acute) INTRADERMAL EXCISION LESIONS (Acute) S/P AAA repair (Acute) Family History Sister Diabetes Social History housing: house Smoking Status: Current some day smoker second hand exposure: No quit status: has quit before alcohol intake: current details: [employer] SOCIAL substance use type: does not use what type of physical activity do you participate in: other seatbelt use: always do you feel safe at home: Yes additional social history: SUN EXPOSURE: FREQUENTLY HPI HPI HPI: VICKI RANDLE, is a 72 M who presents to the office today for surgical follow-up status post infrarenal abdominal aortic aneurysm stent graft repair that are performed for him on September 09, 2017. The main body device was deployed via the right common femoral artery and was a [place] excluder 26 x 14.5 x 12 cm. The contralateral limb utilized was a 20 x 14 cm sequeira bottom device. An additional extension was placed on the right being a 20 x 12 cm sequeira bottom device.. The patient had a reasonably uneventful recovery. He has had troubles preoperatively and postoperatively with variable blood pressure. He has troubles with hypertension but then when placed on medications he ends up complaining of dizzy spells and relative hypotension. He is currently noting that over this past weekend he had some episode of dizziness and so he on his own stopped 1 of his 2 antihypertensives Exam Resp Effort AND Inspection: normal respiratory effort Cardio Other: Bilateral femoral and popliteal pulses are 3+ intact GI Palpation: soft, no hepatosplenomegaly, other (Notably overweight) Other: Bilateral groin incisions are clean, dry, minimal ecchymosis, nontender Assessment AND Plan 1. Abdominal aortic aneurysm (AAA) without rupture I71.4 Plan 72-year-old gentleman who appears to be progressing well status post infrarenal abdominal aortic stent graft repair. He did have patent CAROLEE and lumbars at the time of his procedure. We will continue to keep close tracking. We will obtain a CTA of the abdomen in 2 months and have him return to my office at that time. The patient is encouraged to follow-up with Dr. Alvin Hughes III regarding his variable blood pressure and ongoing difficulties with his medication. He has had an opportunity to ask and have questions answered. At this time he is making steady progress. Cc: JACKSON Littlejohn M.D., F.A.C.S. Plan Detail Other Orders Orders: Coding Level of Care Code Global Post Op Diagnoses Abdominal aortic aneurysm (AAA) without rupture I71.4 Presence of rupture: without rupture 09/22/17 1605 <Electronically signed by Nam Hughes MD> Date Nam Hughes MD Cosigner Signature: Date (if applicable) CC: Alvin Hughes III, MD DISCHARGE INSTRUCTION Observed: 09/10/2017 Status: F Source: [place] 8:58 AM [facility] REPOSITORY [facility] Medical Records Department [address] [place] [address] Instructions for Home/Discharge Instructions 09/10/17 0854 MR#: [id number] Acct: [id number] Name: VICKI RANDLE Rep #: [id number] : 1945 72 From: Berta Braker PA-C PCP: Alvin Hughes III, MD Status: ADM IN Discharge Diet: Light diet - advance as tolerated Discharge Activity: May not drive while taking narcotic pain medications., May Not Shower - Sponge bathe until Friday keeping the incisions dry. May shower in (days): 3 Lifting Restrictions: 5 pounds Call your doctor if your incision/area has: Continuous Slow Oozing, Sudden Increased Bleeding, Increased Pain/ Swelling, Swelling at the incision site Call your doctor if you observe: Fever of 101 or Higher, Change in Color Suture Line Care: Avoid Pulling/Pushing, Avoid Pinching/Bending Cleanse incision/area with: Do not get Incision Wet Allergies/Adverse Reactions: Allergies adhesive Adverse Reaction (Verified 09/02/17 09:08) Itching atorvastatin [From Lipitor] Adverse Reaction (Verified 09/02/17 09:08) Other rosuvastatin calcium [From Crestor] Adverse Reaction (Verified 09/02/17 09:08) ACHING Medications to take at Discharge Finasteride [Proscar] 5 mg PO DAILY 06/19/14 Omeprazole [Prilosec] 20 mg PO DAILY 11/18/13 Tamsulosin HCl [Flomax] 0.4 mg PO DAILY 11/18/13 Aspirin E.C. [Ecotrin] 81 mg PO DAILY@0800 12/27/16 Fluoxetine HCl [Prozac] 20 mg PO DAILY 12/27/16 brimonidine 0.2 % eye drops 1 drp OPHTHALMIC BID ml 08/05/17 timolol maleate 0.5 % eye drops 1 drp OPHTHALMIC BID 08/05/17 Imiquimod 1 applic TOPICAL 5XW 09/09/17 Amlodipine [Norvasc] 10 mg PO DAILY #30 tab 09/10/17 Carvedilol [Coreg (Beta Junito)] 3.125 mg PO BID #60 tab 09/10/17 Hydrocodone Bitart/Apap 5-325 [[place] 5/325] 1 - 2 tablet PO Q4H PRN PRN 3 Days #10 tablet 09/10/17 The following prescriptions were given: Hydrocodone Bitart/Apap 5-325 [[place] 5/325] 1 - 2 tablet PO Q4H PRN PRN 3 Days #10 tablet PRN Reason: Pain Amlodipine [Norvasc] 10 mg PO DAILY #30 tab Carvedilol [Coreg (Beta Junito)] 3.125 mg PO BID #60 tab Primary Care Physician: Alvin Hughes III, MD [Primary Care Provider] - Please Follow Up With: Nam Hughes MD - [phone] When: 10 days Proposed Discharge Date: 09/10/17 09/10/17 0858 <Electronically signed by Berta Barker PA-C> Date Berta Barker PA-C CC: Gurjit Ohara MD; Alvin Hughes III, MD OPERATIVE REPORT Observed: 09/10/2017 Status: F Source: [place] 5:53 AM [facility] REPOSITORY [facility] Medical Records Department [address] [place] [address] Operative Report 09/09/17 0658 MR#: [id number] Acct: [id number] Name: RAZIAVICKI Rep #: [id number] : 1945 72 From: Nam Hughes MD PCP: Alvin Hughes III, MD Status: ADM IN Y Location: ICU ICU01-1 Problem List (1) Abdominal aortic aneurysm (AAA) Status: Acute Qualifiers: Presence of rupture: without rupture Qualified Code(s): I71.4 - Abdominal aortic aneurysm, without rupture Report of Operation Date of Procedure: 09/09/17 Pre-Operative Diagnosis: Infrarenal abdominal aortic aneurysm Post-Operative Diagnosis: Same Surgery/Procedure Performed:: Left radial arterial line placement. Infrarenal abdominal aortic aneurysm stent graft repair Description of Surgical Findings:: Timeout and informed consent was obtained. At the bedside in the intensive care unit Toby test was performed demonstrating adequate ulnar flow. The left wrist was gently extended. It was prepped with Betadine. Under ultrasound guidance 1% lidocaine was instilled as a local anesthetic. A total 1 cc was used. A 20-gauge aero kit Angiocath was advanced under ultrasound guidance into the artery. Then utilizing Seldinger wire technique the catheter was advanced into the artery. It was secured skin with interrupted 4-0 nylon. OpSite dressing was applied followed by Coban wrap. Patient tolerated the procedure well. Hand was viable at the completion. There is no apparent complication. Good waveform was obtained. He was subsequently taken to the special procedures lab for definitive repair of his aortic aneurysm. 72-year-old gentleman was taken to the special procedures lab. He was placed on the table. He underwent monitored anesthesia care. 2 g of Ancef were given intravenously preoperatively. The abdomen and groins were sterilely prepped and draped. 1% lidocaine mixed 50-50 with 0.5% Marcaine was used as a local anesthetic. Throughout the procedure total 30 cc was used. Under ultrasound guidance both the right and left common femoral arteries were accessed with a singlewall needle. Seldinger wire technique performed. A Cypriot short sheath dilator was inserted. Then 4 separate Perclose devices were placed over an 035 J-wire. These were performed at 2:00 8:00 positions and 10:00 4:00 positions. Having secured those then used the J-wire placed a pigtail catheter into the abdominal aorta proximal to the aneurysm then placed on Anplats wires bilaterally placed a 12 Cypriot sheath on the left and a 16 Cypriot sheath on the right. The main body 26 x 14.5 x 12 cm [place] excluder device was placed via the right common femoral. Reference number is [id number]. Serial #[id number]. An additional device is used where extension devices. Reference number [facility] . Serial #[id number]. The additional device was reference number [facility] [id number]. Serial #[id number]. A pigtail catheter with marking slots were placed from the left groin. Using Isovue contrast a AP aortogram was obtained with 12 of cc angulation. Bilateral renal arteries are identified. The main body device was then deployed via the right common femoral groin. Good positioning was achieved. The contralateral 12 Cypriot sheath was then withdrawn and using a 5 Cypriot Kumpe catheter to 035 angled Glidewire access was gained to the contralateral limb. Then that was exchanged out for a Amplatz wire. The pigtail catheter was inserted. The contralateral sheath was withdrawn. Contrast is injected retrograde through the sheath and measurements were made to the left internal iliac. Subsequently the 20 x 14 cm bulb on the device was placed on the left. The main body device was deployed completely than on the right. And a Sequeira upon extension measuring by 12 cm was placed. Subsequently the device was seated in place using a 27 mm diameter compliant balloon. Pigtail catheter was reinserted into the aorta proximal to the renals and using 15 cc a second for 25 cc of contrast in the AP aortogram was obtained. This demonstrated good positioning of all grafts with seeming of exclusion of the aneurysm. It was no endoleak identified. There was backflow noted via some lumbars on the right and via the CAROLEE on the left. Over on Plotts wires the sheaths were removed. The left groin was addressed first in the previously placed Perclose sutures were sterilely secured with good results on the left than the right was addressed. Good hemostasis simply achieved on the right. The feet were inspected they were noted to be warm viable with palpable pulses distally. At this point the patient received 20 mg of protamine. It is of note that after the placement of the original 8 Cypriot sheaths that the patient received 12,000 units of heparin intravenously weight-based. After ACT measurements he received and other additional 1000 units of heparin IV. Sponge instrument needle counts were reported the surgeon for correct. Blood loss was approximately 200 cc. There were no specimens. No drains. He was taken back to the intensive care unit in satisfactory condition. Nam Hughes M.D., F.A.C.S. 09/10/17 0553 <Electronically signed by Nam Hughes MD> Date Nam Hughes MD CC: Gurjit Ohara MD; Alvin Hughes III, MD; Nam Hughes MD Signed CBC W/DIFF, AUTOMATED Collected: 09/10/2017 Status: F Source: [place] 4:00 AM [facility] REPOSITORY TYPE CODE TESTS RESULT OUT OF RANGE REFERENCE UNITS LAB L100.1000 4.4-11.0 K/mm3 Normal WBC 9.4 LAB L100.1200 4.6-6.2 M/mm3 Low RBC 4.50 LAB L100.1300 13.0-16.5 g/dl Low HGB 12.6 LAB L100.1400 40-54 % Low HCT 39.4 LAB L100.1500 80-94 fL Normal MCV 87.6 LAB L100.1600 27.0-32.0 pg Normal MCH 28.0 LAB L100.1700 32-36 g/gl Normal MCHC 32.0 LAB L100.1810 11.6-14.6 % Normal RDW CV 13.9 LAB L100.1820 35.1-43.9 fl High RDW SD 44.2 LAB L100.1900 150-450 K/mm3 Normal PLT 244 LAB L100.2000 6.2-12.0 fl Normal MPV 8.8 LAB L100.2100 47-70 % High NEUT% 73.1 LAB L100.2200 19-41 % Low LY% 14.8 LAB L100.2300 0-10 % Normal MONO% 8.6 LAB L100.2400 0-5 % Normal EO% 3.0 LAB L100.2500 0-1 % Normal BASO% 0.2 LAB L100.2550 0.0-0.9 % Normal IM GRAN % 0.300 Result Comment: IG% - Immature Granulocytes (promyelocytes, myelocytes and metamyelocytes) > 1% indicates that a LEFT SHIFT is Present. LAB L100.2620 2.0-7.7 X10 3/uL Normal Absolute Neut 6.9 LAB L100.2720 0.83-4.51 X10 3/ul Normal Absolute Lymph 1.39 Performed By: #### L100.0100 #### [facility] [address] [place], [place], [address] BASIC METABOLIC Collected: 09/10/2017 Status: F Source: MOTT PROFILE (BMP) 4:00 AM [facility] REPOSITORY TYPE CODE TESTS RESULT OUT OF RANGE REFERENCE UNITS LAB L501.0100 74-106 mg/dL Normal GLU 102 Result Comment: Fasting Glucose result from 100 to 125 mg/dL suggests IMPAIRED HOMEOSTASIS per A.D.A. criteria. Please note revised GLUCOSE reference range effective 2017. LAB L501.1000 7-18 mg/dL Low BUN 6 LAB L501.1100 0.70-1.30 mg/dL Low CREAT,SERUM 0.66 Result Comment: The validity of the calculated GFR AND GFRAA in patients over 70 years has not been determined. Clinical correlation is essential. LAB L501.1110 >60 mL/min Normal EST GFR 127 Result Comment: Non- GFR Calc LAB L501.1115 >60 mL/min Normal EST GFR - AA 154 Result Comment: GFR Calc LAB L501.1255 ml/min Normal Estimated CRCL 75.46 LAB L501.1300 10-20 RATIO Low BUN/CRE 9.1 LAB L501.2200 8.5-10 mg/dL Low .1 CA 7.9 LAB L501.5300 136-14 mmol/L Normal 5 NA 140 LAB L501.5600 3.5-5. mmol/L Normal 1 K 3.7 LAB L501.5900 98-107 mmol/L Normal CL 105 LAB L501.6100 21.0-3 mmol/L Normal 2.0 CO2 28.0 LAB L501.6200 5-15 Normal GAP 7 Performed By: #### L500.2500 #### [facility] [address] [place], [address] ACT ACTIVATED CLOTTING Collected: 09/09/2017 Status: F Source: [place] TIME 9:12 AM [facility] REPOSITORY TYPE CODE TESTS RESULT OUT OF RANGE REFERENCE UNITS LAB L9100.0100 74-137 sec High ACTk CLOT 246 TIME Performed By: #### L9100.0100 #### [facility] Point of Care [address] [place] [address] ACT ACTIVATED CLOTTING Collected: 09/09/2017 Status: F Source: [place] TIME 8:50 AM [facility] REPOSITORY TYPE CODE TESTS RESULT OUT OF RANGE REFERENCE UNITS LAB L9100.0100 74-137 sec High ACTk CLOT 230 TIME Performed By: #### L9100.0100 #### [facility] Point of Care [address] [place] [address] ACT ACTIVATED CLOTTING Collected: 09/09/2017 Status: F Source: [place] TIME 6:55 AM [facility] REPOSITORY TYPE CODE TESTS RESULT OUT OF RANGE REFERENCE UNITS LAB L9100.0100 74-137 sec Normal ACTk CLOT 131 TIME Performed By: #### L9100.0100 #### [facility] Point of Care [address] [place] [address] 12 LEAD ELECTROCARDIOGRAM Observed: 09/05/2017 Status: F Source: [place] 12:49 PM [facility] REPOSITORY [facility] Cardiovascular Services [address] [place] [address] EKG - SDC 09/02/17 0852 MR#: [id number] Acct: [id number] Name: VICKI RANDLE Rep #: [id number] : 1945 72 From: Luis Javier MD Attending Dr: Nam Hughes MD Status: PRE IN Ordering Dr: Nam Hughes MD Date: 09/02/17 Location: Sex: M C Admitted: Test Reason : Blood Pressure : / mmHG Vent. Rate : 068 BPM Atrial Rate : 068 BPM P-R Int : 182 ms QRS Dur : 092 ms QT Int : 410 ms P-R-T Axes : 051 073 050 degrees QTc Int : 435 ms Sinus rhythm with Premature atrial complexes Otherwise normal ECG Confirmed by LUIS JAVIER MD ([id number]), editorial writer ROCIO WRIGHT ([id number]) on 09/05/2017 12:49:13 PM Referred By: Nam Hughes Confirmed By:LUIS JAVIER MD 09/05/17 1249 Date Luis Javier MD CC: Alvin Hughes III, MD; Nam Hughes MD Date Dictated: 09/02/17851 Date Transcribed: 09/02/17851 Urology Physician: Signed CBC-COMPLETE BLOOD CNT Collected: 09/02/2017 Status: F Source: [place] NO DIFF 9:50 AM [facility] REPOSITORY TYPE CODE TESTS RESULT OUT OF RANGE REFERENCE UNITS LAB L100.1000 4.4-11.0 K/mm3 Normal WBC 8.0 LAB L100.1200 4.6-6.2 M/mm3 Normal RBC 5.16 LAB L100.1300 13.0-16.5 g/dl Normal HGB 14.6 LAB L100.1400 40-54 % Normal HCT 45.6 LAB L100.1500 80-94 fL Normal MCV 88.4 LAB L100.1600 27.0-32.0 pg Normal MCH 28.3 LAB L100.1700 32-36 g/gl Normal MCHC 32.0 LAB L100.1810 11.6-14.6 % Normal RDW CV 14.0 LAB L100.1820 35.1-43.9 fl High RDW SD 45.1 LAB L100.1900 150-450 K/mm3 Normal PLT 267 LAB L100.2000 6.2-12.0 fl Normal MPV 9.1 Performed By: #### L100.0500 #### [facility] [address] [place], [place], [address] PROTHROMBIN TIME W/INR Collected: 09/02/2017 Status: F Source: [place] 9:50 AM [facility] REPOSITORY TYPE CODE TESTS RESULT OUT OF RANGE REFERENCE UNITS LAB L300.4150 11.7-14.9 SECONDS Normal PROTIME 12.9 LAB L300.4200 Normal INR 1.0 Performed By: #### L300.3900, L300.4310 #### [facility] [address] [place], [address] PARTIAL THROMBOPLAST Collected: 09/02/2017 Status: F Source: [place] TIME 9:50 AM [facility] REPOSITORY TYPE CODE TESTS RESULT OUT OF RANGE REFERENCE UNITS LAB L300.4310 24.1-36.2 Seconds Normal PTT 31.0 Performed By: #### L300.3900, L300.4310 #### [facility] [address] [place], [place], [id number] BASIC METABOLIC Collected: 09/02/2017 Status: F Source: [place] PROFILE (BMP) 9:50 AM [facility] REPOSITORY TYPE CODE TESTS RESULT OUT OF RANGE REFERENCE UNITS LAB L501.0100 74-106 mg/dL Normal GLU 90 Result Comment: Please note revised GLUCOSE reference range effective 2017. LAB L501.1000 7-18 mg/dL Normal BUN 10 LAB L501.1100 0.70-1.30 mg/dL Normal CREAT,SERUM 0.91 Result Comment: The validity of the calculated GFR AND GFRAA in patients over 70 years has not been determined. Clinical correlation is essential. LAB L501.1110 >60 mL/min Normal EST GFR 87 Result Comment: Non- GFR Calc LAB L501.1115 >60 mL/min Normal EST GFR - AA 106 Result Comment: GFR Calc LAB L501.1255 ml/min Normal Estimated CRCL 82.92 LAB L501.1300 10-20 RATIO Normal BUN/CRE 11.0 LAB L501.2200 8.5-10 mg/dL Low .1 CA 8.4 LAB L501.5300 136-14 mmol/L Normal 5 NA 142 LAB L501.5600 3.5-5. mmol/L Normal 1 K 3.9 LAB L501.5900 98-107 mmol/L High CL 108 LAB L501.6100 21.0-3 mmol/L Normal 2.0 CO2 28.0 LAB L501.6200 5-15 Normal GAP 6 Performed By: #### L500.2500, L501.1800 #### [facility] [address] [place], [address] ALBUMIN, SERUM Collected: 09/02/2017 Status: F Source: [place] 9:50 AM [facility] REPOSITORY TYPE CODE TESTS RESULT OUT OF RANGE REFERENCE UNITS LAB L501.1800 3.2-5.0 g/dL Low ALB 2.9 Performed By: #### L500.2500, L501.1800 #### [facility] [address] [facility] [place], [place], [id number] LIVER PROFILE Collected: 09/02/2017 Status: F Source: [place] 9:50 AM [facility] REPOSITORY TYPE CODE TESTS RESULT OUT OF RANGE REFERENCE UNITS LAB L501.1500 6.4-8.2 g/dL Normal T PROT 7.2 LAB L501.1800 3.2-5.0 g/dL Low ALB 2.9 LAB L501.1950 2.2-4.2 g/dL High GLOB 4.3 LAB L501.4100 15-37 U/L Low AST 8 LAB L501.4305 45-117 U/L High ALK P 176 LAB L501.4405 16-61 U/L Low ALT 11 Result Comment: Please note revised ALT reference range effective 2017. LAB L501.4600 0.20-1.00 mg/dL Normal T BILI 0.40 LAB L501.4700 0.00-0.30 mg/dL Normal D BILI 0.14 Performed By: #### L500.3400, L501.2300, L501.5200 #### [facility] [address] [facility] [place], [place], [id number] PHOSPHORUS Collected: 09/02/2017 Status: F Source: [place] 9:50 AM [facility] REPOSITORY TYPE CODE TESTS RESULT OUT OF RANGE REFERENCE UNITS LAB L501.2300 2.5-4.9 mg/dL Normal PHOS 3.1 Performed By: #### L500.3400, L501.2300, L501.5200 #### [facility] [address] [facility] [place], [place], [id number] MAGNESIUM Collected: 09/02/2017 Status: F Source: [place] 9:50 AM [facility] REPOSITORY TYPE CODE TESTS RESULT OUT OF RANGE REFERENCE UNITS LAB L501.5200 1.6-2.6 mg/dL Normal MG 2.1 Result Comment: Please note revised Magnesium reference range effective 2017. Performed By: #### L500.3400, L501.2300, L501.5200 #### [facility] [address] [place], [address] TYPE AND SCREEN Collected: 09/02/2017 Status: F Source: MOTT 9:50 AM [facility] REPOSITORY Order Comment: Reason for Type AND Screen/Red Cells: SURGERY Surgery Date: 09/09/17 Type of Surgery: ABD. AORTIC ANEURYSM TYPE CODE TESTS RESULT OUT OF RANGE REFERENCE UNITS LAB B10.0800 A Normal BLOOD TYPE GEL NEGATIVE LAB B100.4000 Normal Antibody NEGATIVE Screen Performed By: #### B101.7450 #### [facility] [address] [place], [address] CHEST PA AND LATERAL Observed: 09/02/2017 Status: F Source: MOTT 9:45 AM [facility] REPOSITORY [facility] Imaging Services [address] [place] [address] Chest PA and Lateral MR#: [id number] Acct: [id number] Name: VICKI RANDLE Rep #: [id number] : 1945 M 72 From: Eriberto Allen MD PCP: Alvin Hughes III, MD Status: PRE SDC Study: Chest PA and Lateral Date of Exam: 09/02/17 Exam# [id number] Ordering Dr: Nam Hughes MD STUDY: X-RAY CHEST REASON FOR EXAM: Male, 72 years old. Preoperative evaluation. TECHNIQUE: PA and lateral views of the chest. COMPARISON: Comparison is made with prior examination dated December 27, 2016. FINDINGS: Hyperinflation. There is blunting of the left cost phrenic angle with a small left pleural effusion with underlying left basilar atelectasis and/or early infiltrate. This is new as compared to prior study. Normal size heart. Normal mediastinum and chandler. Normal visualized pulmonary arteries. Normal visualized aortic arch and descending thoracic aorta. There are diffuse degenerative changes of the visualized thoracic spine. Normal visualized ribs, clavicles, and shoulders. There is no demonstrated abnormality of the visualized soft tissue structures of the upper abdomen. RAD/Chest PA and Lateral IMPRESSION: Small left pleural effusion with underlying infiltration and/or atelectasis. Hyperinflation. Electronically Signed: Eriberto Allen MD at 10:27 EDT Tel [phone], Service support , CC: Alvin Hughes III, MD; Nam Hughes MD Urology Physician: Signed SURGERY VISIT REPORT Observed: 08/19/2017 Status: F Source: MOTT 5:28 PM [facility] REPOSITORY [facility] [address] [place] [address] OFFICE VISIT Date of Service: 08/19/17 MR#: [id number] Acct: [id number] Name: VICKI RANDLE Rep #: [id number] : 1945 Provider: Nam Hughes MD Age/Sex: 72/M Location: [facility] Status: Signed Intake Intake Visit Reasons: F/U LAB AND U/S AAA AND CAROTID Allergies adhesive Adverse Reaction (Verified 08/05/17 13:04) Itching atorvastatin [From Lipitor] Adverse Reaction (Verified 08/05/17 13:04) Other rosuvastatin calcium [From Crestor] Adverse Reaction (Verified 08/05/17 13:04) ACHING Medications Finasteride [Proscar] 5 mg PO DAILY 11/18/13 [History Confirmed 08/05/17] Omeprazole [Prilosec] 20 mg PO DAILY 11/18/13 [History Confirmed 08/05/17] Tamsulosin HCl [Flomax] 0.4 mg PO DAILY 11/18/13 [History Confirmed 08/05/17] Aspirin E.C. [Ecotrin] 81 mg PO DAILY@0800 12/27/16 [History Confirmed 08/05/17] Fluoxetine HCl [Prozac] 20 mg PO DAILY 12/27/16 [History Confirmed 08/05/17] Ondansetron [Zofran Odt] 4 mg PO Q8H PRN PRN #10 tab 12/27/16 [Rx Confirmed 08/05/17] imiquimod 5 % topical cream packet 1 applic TOPICAL 5XW #30 ea 07/26/17 [Rx Confirmed 08/05/17] brimonidine 0.2 % eye drops 1 drp OPHTHALMIC BID ml 08/05/17 [History Confirmed 08/05/17] cholecalciferol (vitamin D3) 1,000 unit capsule 1,000 unit PO QDAY cap 08/05/17 [History Confirmed 08/05/17] timolol maleate 0.5 % eye drops 1 drp OPHTHALMIC BID 08/05/17 [History Confirmed 08/05/17] PFSH Medical History Abdominal aortic aneurysm (AAA) (Acute) AAA (abdominal aortic aneurysm) (Acute) ACTINIC LESION WITH SEVERE ATYPIA (Acute) ATYPICAL SQUAMOUS EPITHELIAL LESION WITH SOLAR KERATOSIS (Acute) ATYPICAL SQUAMOUS LESION LEFT PREAURICULAR AREA (Acute) Actinic keratosis (Acute) Actinic skin damage (Acute) Basal cell carcinoma (Acute) Carpal tunnel syndrome (Acute) Cataract (Acute) GERD (gastroesophageal reflux disease) (Acute) Hyperlipidemia (Acute) INFLAMED ACTINIC KERATOSIS (Acute) INFLAMED ACTINIC KERATOSIS RIGHT VOLAR FOREARM (Acute) Nodule of right lung (Acute) Prostate enlargement (Acute) Pulmonary emphysema (Acute) SCATTERED ACTINIC DAMAGE ON FACE AND UPPER EXTREMITIES (Acute) Seborrheic keratosis (Acute) Situational depression (Acute) Solar keratosis (Acute) Squamous cell carcinoma (Acute) Squamous cell carcinoma in situ (Acute) Squamous cell carcinoma in situ (Acute) Squamous cell carcinoma in situ (Acute) Venous insufficiency of both lower extremities (Acute) Hypertension (Chronic) Surgical History EXCISION ATYPICAL SQUAMOUS LESION (Acute) EXCISION LESIONS AND SKIN CANCERS (Acute) EXCISION OF SKIN CANCER FACE AND HANDS (Acute) H/O knee surgery (Acute) History of basal cell carcinoma excision (Acute) History of carpal tunnel surgery (Acute) History of cholecystectomy (Acute) History of squamous cell carcinoma excision (Acute) History of squamous cell carcinoma excision (Acute) Hx of cataract surgery (Acute) INTRADERMAL EXCISION LESIONS (Acute) Family History Sister Diabetes Social History housing: house Smoking Status: Current some day smoker second hand exposure: No quit status: has quit before alcohol intake: current details: BEER AND MIXED DRINKS SOCIAL substance use type: does not use what type of physical activity do you participate in: other seatbelt use: always do you feel safe at home: Yes additional social history: SUN EXPOSURE: FREQUENTLY HPI HPI HPI: VICKI RANDLE, is a 72 M who presents to the office today for surgical follow-up. I initially had the opportunity of meeting him on August 05, 2017. He was referred for surgical consultation regarding a abdominal aortic aneurysm. I thought that I detected a carotid bruit. Carotid duplex imaging August 14, 2017 demonstrates less than 50% stenosis bilaterally. A CTA of the abdomen performed August 07, 2017 demonstrates an infrarenal abdominal aortic aneurysm 5.8 x 5.2 cm transverse section over a 5.5 cm length. The upper renal neck measures 5 cm. The left common iliac is dilated to 2.1 cm. There is no additional bilateral lower extremity findings. Additional note is made of a small left pleural effusion. On February 04, 2017 the patient had a nuclear medicine stress test. There is no evidence for inducible ischemia. Ejection fraction was 54%. ADDENDUM by Nam Hughes MD on 08/06/17 at 1811 Addendum entered and electronically signed by Nam Hughes MD 08/06/17 18:11: This pt is scheduled for a carotid duplex and CTA of the abdomen and NOT a cscope--my documentation was incorrect Pt will be seen back in my office for follow up re: AAA stent grafting. [place] Intake Allergies adhesive Adverse Reaction (Verified 08/05/17 13:04) Itching atorvastatin [From Lipitor] Adverse Reaction (Verified 08/05/17 13:04) Other rosuvastatin calcium [From Crestor] Adverse Reaction (Verified 08/05/17 13:04) ACHING Medications Finasteride [Proscar] 5 mg PO DAILY 11/18/13 [History Confirmed 08/05/17] Omeprazole [Prilosec] 20 mg PO DAILY 11/18/13 [History Confirmed 08/05/17] Tamsulosin HCl [Flomax] 0.4 mg PO DAILY 11/18/13 [History Confirmed 08/05/17] Aspirin E.C. [Ecotrin] 81 mg PO DAILY@0800 12/27/16 [History Confirmed 08/05/17] Fluoxetine HCl [Prozac] 20 mg PO DAILY 12/27/16 [History Confirmed 08/05/17] Ondansetron [Zofran Odt] 4 mg PO Q8H PRN PRN #10 tab 12/27/16 [Rx Confirmed 08/05/17] imiquimod 5 % topical cream packet 1 applic TOPICAL 5XW #30 ea 07/26/17 [Rx Confirmed 08/05/17] brimonidine 0.2 % eye drops 1 drp OPHTHALMIC BID ml 08/05/17 [History Confirmed 08/05/17] cholecalciferol (vitamin D3) 1,000 unit capsule 1,000 unit PO QDAY cap 08/05/17 [History Confirmed 08/05/17] timolol maleate 0.5 % eye drops 1 drp OPHTHALMIC BID 08/05/17 [History Confirmed 08/05/17] Assessment AND Plan Problems 1. Personal history of colonic polyps Z86.010 Plan - Nam Hughes MD I am recommending the patient a colonoscopy with possible biopsy or polypectomy is indicated. I believe that will be sufficient to hold his clopidogrel and Eliquis both for 2 days. He is aware of the technique, benefits, risks and alternatives. He performed well previously under IV sedation. Very careful inspection particularly of the sigmoid and descending colon will be pursued inspecting for recurrent polyps. We will schedule and proceed at his discretion. I appreciate the opportunity of continue to assist with his surgical care. Cc: JACKSON Littlejohn M.D., F.A.C.S. Orders Orders: Colonoscopy 08/05/17 Basic Metabolic Profile (BMP) 08/05/17 I71.4 CTA Abdomen W/WO Contrast 08/05/17 I71.4 Carotid Duplex Ultrasound 08/05/17 R09.89 08/06/17 1811<Electronically signed by Nam Hughes MD> Date Nam Hughes MD cc: Alvin Hughes III, MD * Signed Intake Vital Signs 08/05/17 Height 6 ft 1 in 08/05/17 Weight: 260 lb 08/05/17 Body Mass Index (BMI) 34.2 08/05/17 Blood Pressure 157/89 08/05/17 Blood Pressure Location Lt brachial 08/05/17 Blood Pressure Position Sitting 08/05/17 Respiratory Rate 20 08/05/17 Pulse Rate 72 08/05/17 Pulse Source Monitor 08/05/17 Temperature 98.4 F 08/05/17 Temperature Source Oral 08/05/17 Pulse Ox 96 08/05/17 Oxygen Delivery Method room air Intake Visit Reasons: Abdominal aortic aneurysm Administrative Intern Required: No Is patient in pain?: No Allergies adhesive Adverse Reaction (Verified 08/05/17 13:04) Itching atorvastatin [From Lipitor] Adverse Reaction (Verified 08/05/17 13:04) Other rosuvastatin calcium [From Crestor] Adverse Reaction (Verified 08/05/17 13:04) ACHING Medications Finasteride [Proscar] 5 mg PO DAILY 11/18/13 [History Confirmed 08/05/17] Omeprazole [Prilosec] 20 mg PO DAILY 11/18/13 [History Confirmed 08/05/17] Tamsulosin HCl [Flomax] 0.4 mg PO DAILY 11/18/13 [History Confirmed 08/05/17] Aspirin E.C. [Ecotrin] 81 mg PO DAILY@0800 12/27/16 [History Confirmed 08/05/17] Fluoxetine HCl [Prozac] 20 mg PO DAILY 12/27/16 [History Confirmed 08/05/17] Ondansetron [Zofran Odt] 4 mg PO Q8H PRN PRN #10 tab 12/27/16 [Rx Confirmed 08/05/17] imiquimod 5 % topical cream packet 1 applic TOPICAL 5XW #30 ea 07/26/17 [Rx Confirmed 08/05/17] brimonidine 0.2 % eye drops 1 drp OPHTHALMIC BID ml 08/05/17 [History Confirmed 08/05/17] cholecalciferol (vitamin D3) 1,000 unit capsule 1,000 unit PO QDAY cap 08/05/17 [History Confirmed 08/05/17] timolol maleate 0.5 % eye drops 1 drp OPHTHALMIC BID 08/05/17 [History Confirmed 08/05/17] PFSH Medical History AAA (abdominal aortic aneurysm) (Acute) ACTINIC LESION WITH SEVERE ATYPIA (Acute) ATYPICAL SQUAMOUS EPITHELIAL LESION WITH SOLAR KERATOSIS (Acute) ATYPICAL SQUAMOUS LESION LEFT PREAURICULAR AREA (Acute) Actinic keratosis (Acute) Actinic skin damage (Acute) Basal cell carcinoma (Acute) Carpal tunnel syndrome (Acute) Cataract (Acute) GERD (gastroesophageal reflux disease) (Acute) Hyperlipidemia (Acute) INFLAMED ACTINIC KERATOSIS (Acute) INFLAMED ACTINIC KERATOSIS RIGHT VOLAR FOREARM (Acute) Nodule of right lung (Acute) Prostate enlargement (Acute) Pulmonary emphysema (Acute) SCATTERED ACTINIC DAMAGE ON FACE AND UPPER EXTREMITIES (Acute) Seborrheic keratosis (Acute) Situational depression (Acute) Solar keratosis (Acute) Squamous cell carcinoma (Acute) Squamous cell carcinoma in situ (Acute) Squamous cell carcinoma in situ (Acute) Squamous cell carcinoma in situ (Acute) Venous insufficiency of both lower extremities (Acute) Hypertension (Chronic) Surgical History EXCISION ATYPICAL SQUAMOUS LESION (Acute) EXCISION LESIONS AND SKIN CANCERS (Acute) EXCISION OF SKIN CANCER FACE AND HANDS (Acute) H/O knee surgery (Acute) History of basal cell carcinoma excision (Acute) History of carpal tunnel surgery (Acute) History of cholecystectomy (Acute) History of squamous cell carcinoma excision (Acute) History of squamous cell carcinoma excision (Acute) Hx of cataract surgery (Acute) INTRADERMAL EXCISION LESIONS (Acute) Family History Sister Diabetes Social History housing: house Smoking Status: Current some day smoker second hand exposure: No quit status: has quit before alcohol intake: current details: BEER AND MIXED DRINKS SOCIAL substance use type: does not use what type of physical activity do you participate in: other seatbelt use: always do you feel safe at home: Yes additional social history: SUN EXPOSURE: FREQUENTLY HPI HPI HPI: HPI: 72yo WM who presents to the office today for general surgical consultation regarding a abdominal aortic aneurysm. The patient is referred by primary care physician Dr. Alvin Hughes, III and a written copy of my surgical consult recommendations will be returned to him. The patient weighs 235 pounds. For a period of time several years the patient reports having had a known abdominal aortic aneurysm. He is not symptomatic. Most recently on July 15 a aortic ultrasound demonstrated 4.8 x 4.9 cm transverse abdominal aortic aneurysm over length of 5.7 cm. There is also felt to be aneurysmal dilatation of both common iliac arteries. The patient is referred for surgical consultation. Within the past year the patient had a fall accident causing left rib fractures. He had CT scans of that area he reports. Currently he states that he has not been as active as normally. He was a long-term cigarette smoker having quit 1988. He has been a lifelong snuff chew chewing person he continues to chew snuff. He is able to climb a flight of stairs albeit with some dyspnea. He was able to successfully undergo a right knee meniscus surgery 1 month ago. He has had 4 previous operations on his left knee. He has had a remote cholecystectomy. As of February 04, 2017 he had a cardiac stress test performed at the [facility]. There is no evidence of any inducible ischemia. Left ventricle and right ventricle both normal in size. Left ventricular ejection fraction was 54%. On further review after the patient left for his appointment there is evidence of a CT scan of the abdomen January 11, 2017 showing a 4.8 cm aneurysm. That was not done in a CTA fashion. ROS General General: No weight change, appetite, fatigue, colon cancer, breast cancer or weakness HEENT HEENT: No difficulty swallowing, eye injury, eye surgery, swollen glands or hoarseness Endo Endocrine: Yes diabetes mellitus; no thyroid disease, thyroid cancer, Hair loss, heat intolerance or cold intolerance Skin Skin: No rash or changing moles Breast Breast: No left breast lump, right breast lump, nipple discharge, breast pain, abnormal mammogram, abnormal US or breast enlargement Musc Musculoskeletal: Yes gout; no back problems, arthritis, rheumatoid arthritis or joint pain Cardio Cardiovascular: Yes heart disease, heart attack and heart stent; no murmur, pacemaker, atrial fibrillation, high blood pressure, palpitations, shortness of breat with exertion or chest pain Psych Psychiatric: No depression, anxiety or hearing voices Resp Respiratory: No shortness of breath, No sleep apnea, No cough, No COPD, No asthma, No emphysema, No wheezing Gastro Gastrointestinal: No abdominal pain, No nausea or vomiting, No diarrhea, No constipation, No blood in stool, No acid reflux, No hemorrhoids, No ulcers, No gallbladder problem, No black,tarry stools Sd Hematologic: Yes blood thinners, No blood disorders, No bleeding, No anemia, No blood clots Neuro Neurologic: No system reviewed and no additional complaints, except as docu, No as per HPI, No abnormal walking, No abnormal hearing, No abnormal movements, No abnormal speech, No behavioral changes, No burning sensations, No confusion, No seizure-like activity, No unsteadiness, No dizziness, No localized weakness, No frequent falls, No headache(s), No lack of coordination, No loss of vision, No memory loss, No numbness, No other visual disturbances, No radiating pain, No restless legs, No sensory deficit, No fainting, No tingling, No tremor(s), No weakness, No other Exam Const General: cooperative, no acute distress Nutritional Appearance: average body habitus Orientation: alert [facility] Head: normal to inspection Eyes General: appearance normal, both eyes and all related structures Chest Breast Palpation: No nipple discharge Resp Effort AND Inspection: normal respiratory effort Cardio Rate: regular rate Heart Sounds: no murmurs Other: Bilateral carotids are 3+. Possible soft bruit on the right. Bilateral brachials and radials are 3+. Bilateral femorals are 3+. Bilateral popliteals DP and PT are 3+ GI Inspection: obesity Palpation: soft Auscultation: normal bowel sounds Neuro Cranial Nerves: CN's II-XI intact bilaterally Extrem General: no calf tenderness Psych Affect: normal affect Assessment AND Plan Problems 1. Abdominal aortic aneurysm (AAA) without rupture I71.4 2. Bruit of right carotid artery R09.89 Plan I am recommending the patient a CTA of the abdomen. This will allow for better determination the potential repair planning. I am also recommending a carotid duplex exam. I suspect a soft right carotid bruit. I have vigorously encouraged the patient to maximize his health benefits. He has been very sedentary over the winter and he is significantly deconditioned by his own admission. I have requested that he convert to a low-cholesterol diet. He states that he eats 2 sausage patties and 2 fried eggs every morning. I have asked him to cease his chewing tobacco. He has had an opportunity to ask and have questions answered. We will proceed with the imaging is noted then have the patient return to the office for further surgical consultation and anticipated treatment. I appreciate the opportunity of assisting with his surgical care. Cc: Dr. Alvin Hughes, III Nam Hughes M.D., F.A.C.S. Coding Level of Care Code Comprehensive,moderate Diagnoses Abdominal aortic aneurysm (AAA) without rupture I71.4 Presence of rupture: without rupture Bruit of right carotid artery R09.89 Laterality: right Time Spent (min) 60 ROS General General: No weight change, appetite, fatigue, colon cancer, breast cancer or weakness HEENT HEENT: No difficulty swallowing, eye injury, eye surgery, swollen glands or hoarseness Endo Endocrine: No thyroid disease, diabetes mellitus, thyroid cancer, Hair loss, heat intolerance or cold intolerance Skin Skin: No rash or changing moles Breast Breast: No left breast lump, right breast lump, nipple discharge, breast pain, abnormal mammogram, abnormal US or breast enlargement Musc Musculoskeletal: No back problems, arthritis, rheumatoid arthritis, gout or joint pain Cardio Cardiovascular: No murmur, pacemaker, heart disease, atrial fibrillation, high blood pressure, heart attack, heart stent, palpitations, shortness of breat with exertion or chest pain Psych Psychiatric: No depression, anxiety or hearing voices Resp Respiratory: Yes shortness of breath, No sleep apnea, Yes cough, No COPD, No asthma, No emphysema, No wheezing Gastro Gastrointestinal: No abdominal pain, No nausea or vomiting, No diarrhea, No constipation, No blood in stool, Yes acid reflux, No hemorrhoids, No ulcers, No gallbladder problem, No black,tarry stools Sd Hematologic: No blood thinners, No blood disorders, No bleeding, No anemia, No blood clots Neuro Neurologic: No system reviewed and no additional complaints, except as docu, No as per HPI, No abnormal walking, No abnormal hearing, No abnormal movements, No abnormal speech, No behavioral changes, No burning sensations, No confusion, No seizure-like activity, No unsteadiness, No dizziness, No localized weakness, No frequent falls, No headache(s), No lack of coordination, No loss of vision, No memory loss, No numbness, No other visual disturbances, No radiating pain, No restless legs, No sensory deficit, No fainting, No tingling, No tremor(s), No weakness, No other Exam Const General: cooperative Nutritional Appearance: obese HENAK Head: normal to inspection Eyes General: appearance normal, both eyes and all related structures Neck Neck: normal visual inspection Chest Chest palpation AND inspection: normal inspection of the chest Breast Palpation: No nipple discharge Resp Effort AND Inspection: normal respiratory effort Auscultation: clear to auscultation bilaterally Cardio Rate: regular rate Heart Sounds: no murmurs GI Other: Overweight I cannot detect any abnormal internal organs Musc Cervical Spine: normal cervical lordosis Neuro Cranial Nerves: CN's II-XI intact bilaterally Extrem General: no calf tenderness Psych Affect: normal affect Assessment AND Plan Problems 1. Personal history of colonic polyps Z86.010 Plan I am recommending the patient a colonoscopy with possible biopsy or polypectomy is indicated. I believe that will be sufficient to hold his clopidogrel and Eliquis both for 2 days. He is aware of the technique, benefits, risks and alternatives. He performed well previously under IV sedation. Very careful inspection particularly of the sigmoid and descending colon will be pursued inspecting for recurrent polyps. We will schedule and proceed at his discretion. I appreciate the opportunity of continue to assist with his surgical care. Cc: Dr. Alvin Hughes, III Nam Hughes M.D., F.A.C.S. Orders Orders: Colonoscopy 08/05/17 Basic Metabolic Profile (BMP) 08/05/17 I71.4 CTA Abdomen W/WO Contrast 08/05/17 I71.4 Carotid Duplex Ultrasound 08/05/17 R09.89 Coding Level of Care Code Off vis,est,level 3 Diagnoses Personal history of colonic polyps Z86.010 08/06/17 1019<Electronically signed by Nam Hughes MD> Date Nam Hughes MD Cosigner Signature:Date (if applicable) CC: Alvin Hughes III, MD Assessment AND Plan 1. Abdominal aortic aneurysm (AAA) without rupture I71.4 Plan I had an extensive discussion with the patient today with his son present. The patient has a infrarenal abdominal aortic aneurysm. It appears to have progressed in size. Currently measuring approximately 5.8 cm in diameter. 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 I am recommending a infrarenal abdominal aortic stent graft repair. I discussed the technique, benefits, risks, alternatives. A sequeira bottom extension will be required on the left. No guarantees of success have been offered. He is aware that her arterial line monitoring will be utilized. He is aware that ongoing surveillance will be recommended. I have asked him not to do any kind of physical excessive activities. I have asked him not to ride his horse until significantly after the repair is accomplished. He has had an opportunity to ask and have questions answered. We will schedule and try to expedite his care. I appreciate the opportunity of assisting with his surgical care. Cc: JACKSON Littlejohn M.D., F.A.C.S. Coding Level of Care Code Off vis,est,level 3 Diagnoses Abdominal aortic aneurysm (AAA) without rupture I71.4 Presence of rupture: without rupture Time Spent (min) 08/19/17 1728 <Electronically signed by Nam Hughes MD> Date Nam Hughes MD Cosigner Signature: Date (if applicable) CC: Alvin Hughes III, MD CAROTID DUPLEX Observed: 08/14/2017 Status: F Source: MOTT ULTRASOUND 6:22 PM [facility] REPOSITORY [facility] Cardiovascular Services [address] [place] [id number] Carotid Duplex Ultrasound 08/14/17 1047 MR#: [id number] Acct: [id number] Name: VICKI RANDLE Rep #: [id number] : 1945 72 From: Nam Hughes MD Attending Dr: Nam Hughes MD Status: REG CLI Ordering Dr: Nam Hughes MD Date: 08/14/17 Location: [facility] Sex: M C Admitted: Reason For Study: Carotid bruit Rt. Velocities/BP Lt. Velocities/BP Prox CCA 80.3/14.7 cm/sec. Prox CCA 97.3/18.2 cm/sec. Mid CCA 82.1/14.1 cm/sec. Mid CCA 86.8/19.9 cm/sec. Dist CCA 72.1/15.2 cm/sec. Dist CCA 81.5/15.8 cm/sec. Prox ICA 56.9/14.9 cm/sec. Prox ICA 64.5/23.5 cm/sec. Mid ICA 64.5/18.2 cm/sec. Mid ICA 68.0/22.9 cm/sec. Dist ICA 66.3/18.2 cm/sec. Dist ICA 78.0/25.2 cm/sec. Rt. ICA/CCA = .81. Lt. ICA/CCA = .90. Prox ECA 113.0/7.0 cm/sec. Prox ECA 99.1/12.9 cm/sec. Rt. Vert. 59.2/19.3 cm/sec. Lt. Vert. 36.9/10.0 cm/sec. Right Extracranial There is intimal thickening but no significant atherosclerotic plaque noted in the right common carotid artery. There is heterogeneous, smooth atherosclerotic plaque noted in the right internal carotid artery. There is no significant atherosclerotic plaque noted in the right external carotid artery. Antegrade flow is noted in the right vertebral artery. Left Extracranial There is intimal thickening but no significant atherosclerotic plaque noted in the left common carotid artery. There is heterogeneous, irregular atherosclerotic plaque noted in the left internal carotid artery. There is no significant atherosclerotic plaque noted in the left external carotid artery. Antegrade flow is noted in the left vertebral artery. Procedure Carotid Duplex 32253. Exam performed in department. 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 Minimal calcific plague at the proximal left internal carotid with <50% stenosis. Normal flow bilateral external carotids. Patent and antegrade vertebrals bilaterally. Ordering Physician: Nam Hughes Referring Physician: Nam Hughes Performed By: Fabiano, Lorena, RVT 08/14/171820 Date Nam Hughes MD CC: Alvin Hughes III, MD; Nam Hughes MD Date Dictated: 08/14/17 1047 Date Transcribed: 08/14/171820 Urology Physician: Signed CTA ABDOMEN W/WO Observed: 08/07/2017 Status: F Source: GIL CONTRAST 5:40 PM [facility] REPOSITORY [facility] Imaging Services [address] [place] [address] CTA Abdomen W/WO Contrast MR#: [id number] Acct: [id number] Name: VICKI RANDLE Rep #: [id number] : 1945 M 72 From: Javier Guerra MD PCP: Alvin Hughes III, MD Status: REG CLI Study: CTA Abdomen W/WO Contrast Date of Exam: 08/07/17 Exam# [id number] Ordering Dr: Nam Hughes MD STUDY: CTA OF THE ABDOMINAL AORTA AND BILATERAL LOWER EXTREMITIES REASON FOR EXAM: Male, 72 years old. Aortic aneurysm RADIATION DOSAGE (If Supplied By Facility): CTDIvol = ( 16.01 ) mGy, DLP = ( 974.77 ) mGycm TECHNIQUE: Axial CT angiography multi-detector data acquisition was obtained from the to the following intravenous administration of 100 ml of Isovue 370 contrast. Axial images and MIP images were reconstructed from the axial data set. Post-processing of the angiographic images was performed, with multiplanar reformation and 3D reconstruction. Individualized dose optimization techniques were used for this CT. TECHNICAL QUALITY: Good COMPARISON: None. Descriptors of Narrowing: None (0%) Mild (< 50%) Moderate (50-70%) Severe (70-90%) Subtotal/Total Occlusion (90-100%) Non-Evaluable (technically non-diagnostic FINDINGS: Abdominal aorta: There is an infrarenal abdominal aortic aneurysm measures 5.8 x 5.2 cm on transverse section and extends over 5.5 cm in length. The infrarenal neck of the aneurysm measures 5 cm in length. Transverse diameter of the neck measures 2.5 cm. Celiac and superior mesenteric arteries: No demonstrated narrowing. Inferior mesenteric artery: No demonstrated narrowing. Right renal artery(arteries): No demonstrated narrowing. Left renal artery(arteries): No demonstrated narrowing. Right common iliac artery: No demonstrated narrowing. Right external iliac artery: No demonstrated narrowing. Right internal iliac artery: No demonstrated narrowing. Left common iliac artery: Demonstrates aneurysmal dilatation measures 2.1 cm diameter. Left external iliac artery: No demonstrated narrowing. Left internal iliac artery: No demonstrated narrowing. RIGHT LOWER EXTREMITY Right common femoral artery: No demonstrated narrowing. Right profundus femoris: No demonstrated narrowing. Right superficial femoral: No demonstrated narrowing. Right popliteal artery: No demonstrated narrowing. Right tibioperoneal trunk: No demonstrated narrowing. Right anterior tibial artery: No demonstrated narrowing. Right posterior tibial artery: No demonstrated narrowing. Right peroneal artery: No demonstrated narrowing. LEFT LOWER EXTREMITY Left common femoral artery: No demonstrated narrowing. Left profundus femoris: No demonstrated narrowing. Left superficial femoral: No demonstrated narrowing. Left popliteal artery: No demonstrated narrowing. Left tibioperoneal trunk: No demonstrated narrowing. Left anterior tibial artery: No demonstrated narrowing. Left posterior tibial artery: No demonstrated narrowing. Left peroneal artery: No demonstrated narrowing. There is a small left pleural effusion. The visualized portions of the heart are within normal limits. Normal liver. There are surgical clips in the gallbladder fossa consistent with a prior cholecystectomy. Normal spleen. Normal pancreas. Normal bilateral adrenal glands. Bilateral renal cysts are noted the largest measures 9 cm in left kidney. Normal visualized stomach. Normal small intestine. Normal colon. The appendix is visualized and appears normal. Normal abdominal aorta. Normal inferior vena cava. Normal retroperitoneum. CT/CTA Abdomen W/WO Contrast IMPRESSION: There is an infrarenal abdominal aortic aneurysm measures 5.8 x 5.2 cm on transverse section and extends over 5.5 cm in length. The infrarenal neck of the aneurysm measures 5 cm in length. Transverse diameter of the neck measures 2.5 cm. 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 Small left pleural effusion. Electronically Signed: Javier Guerra MD at 2:49 EST Tel , Service support , CC: Alvin Hughes III, MD; Nam Hughes MD Urology Physician: Signed SURGERY VISIT REPORT Observed: 08/06/2017 Status: F Source: MOTT 6:11 PM [facility] [address] [place] [address] OFFICE VISIT Date of Service: 08/05/17 MR#: [id number] Acct: [id number] Name: VICKI RANDLE Rep #: [id number] : 1945 Provider: Nam Hughes MD Age/Sex: 72/M Location: [facility] Status: Signed with Addenda ADDENDUM by Nam Hughes MD on 08/06/17 at 1811 Addendum entered and electronically signed by Nam Hughes MD 08/06/17 18:11: This pt is scheduled for a carotid duplex and CTA of the abdomen and NOT a cscope--my documentation was incorrect Pt will be seen back in my office for follow up re: AAA stent grafting. [place] Intake Allergies adhesive Adverse Reaction (Verified 08/05/17 13:04) Itching atorvastatin [From Lipitor] Adverse Reaction (Verified 08/05/17 13:04) Other rosuvastatin calcium [From Crestor] Adverse Reaction (Verified 08/05/17 13:04) ACHING Medications Finasteride [Proscar] 5 mg PO DAILY 11/18/13 [History Confirmed 08/05/17] Omeprazole [Prilosec] 20 mg PO DAILY 11/18/13 [History Confirmed 08/05/17] Tamsulosin HCl [Flomax] 0.4 mg PO DAILY 11/18/13 [History Confirmed 08/05/17] Aspirin E.C. [Ecotrin] 81 mg PO DAILY@0800 12/27/16 [History Confirmed 08/05/17] Fluoxetine HCl [Prozac] 20 mg PO DAILY 12/27/16 [History Confirmed 08/05/17] Ondansetron [Zofran Odt] 4 mg PO Q8H PRN PRN #10 tab 12/27/16 [Rx Confirmed 08/05/17] imiquimod 5 % topical cream packet 1 applic TOPICAL 5XW #30 ea 07/26/17 [Rx Confirmed 08/05/17] brimonidine 0.2 % eye drops 1 drp OPHTHALMIC BID ml 08/05/17 [History Confirmed 08/05/17] cholecalciferol (vitamin D3) 1,000 unit capsule 1,000 unit PO QDAY cap 08/05/17 [History Confirmed 08/05/17] timolol maleate 0.5 % eye drops 1 drp OPHTHALMIC BID 08/05/17 [History Confirmed 08/05/17] Assessment AND Plan Problems 1. Personal history of colonic polyps Z86.010 Plan - Nam Hughes MD I am recommending the patient a colonoscopy with possible biopsy or polypectomy is indicated. I believe that will be sufficient to hold his clopidogrel and Eliquis both for 2 days. He is aware of the technique, benefits, risks and alternatives. He performed well previously under IV sedation. Very careful inspection particularly of the sigmoid and descending colon will be pursued inspecting for recurrent polyps. We will schedule and proceed at his discretion. I appreciate the opportunity of continue to assist with his surgical care. Cc: JACKSON Littlejohn M.D., F.A.C.S. Orders Orders: 08/06/17 1811 <Electronically signed by Nam Hughes MD> Date Nam Hughes MD cc: Alvin Hughes III, MD * Signed Intake Vital Signs08/05/17 Height 6 ft 1 in 08/05/17 Weight: 260 lb Intake Visit Reasons: Abdominal aortic aneurysm Administrative Intern Required: No Is patient in pain?: No Allergies adhesive Adverse Reaction (Verified 08/05/17 13:04) Itching atorvastatin [From Lipitor] Adverse Reaction (Verified 08/05/17 13:04) Other rosuvastatin calcium [From Crestor] Adverse Reaction (Verified 08/05/17 13:04) ACHING Medications Finasteride [Proscar] 5 mg PO DAILY 11/18/13 [History Confirmed 08/05/17] Omeprazole [Prilosec] 20 mg PO DAILY 11/18/13 [History Confirmed 08/05/17] Tamsulosin HCl [Flomax] 0.4 mg PO DAILY 11/18/13 [History Confirmed 08/05/17] Aspirin E.C. [Ecotrin] 81 mg PO DAILY@0800 12/27/16 [History Confirmed 08/05/17] Fluoxetine HCl [Prozac] 20 mg PO DAILY 12/27/16 [History Confirmed 08/05/17] Ondansetron [Zofran Odt] 4 mg PO Q8H PRN PRN #10 tab 12/27/16 [Rx Confirmed 08/05/17] imiquimod 5 % topical cream packet 1 applic TOPICAL 5XW #30 ea 07/26/17 [Rx Confirmed 08/05/17] brimonidine 0.2 % eye drops 1 drp OPHTHALMIC BID ml 08/05/17 [History Confirmed 08/05/17] cholecalciferol (vitamin D3) 1,000 unit capsule 1,000 unit PO QDAY cap 08/05/17 [History Confirmed 08/05/17] timolol maleate 0.5 % eye drops 1 drp OPHTHALMIC BID 08/05/17 [History Confirmed 08/05/17] PFSH Medical History AAA (abdominal aortic aneurysm) (Acute) ACTINIC LESION WITH SEVERE ATYPIA (Acute) ATYPICAL SQUAMOUS EPITHELIAL LESION WITH SOLAR KERATOSIS (Acute) ATYPICAL SQUAMOUS LESION LEFT PREAURICULAR AREA (Acute) Actinic keratosis (Acute) Actinic skin damage (Acute) Basal cell carcinoma (Acute) Carpal tunnel syndrome (Acute) Cataract (Acute) GERD (gastroesophageal reflux disease) (Acute) Hyperlipidemia (Acute) INFLAMED ACTINIC KERATOSIS (Acute) INFLAMED ACTINIC KERATOSIS RIGHT VOLAR FOREARM (Acute) Nodule of right lung (Acute) Prostate enlargement (Acute) Pulmonary emphysema (Acute) SCATTERED ACTINIC DAMAGE ON FACE AND UPPER EXTREMITIES (Acute) Seborrheic keratosis (Acute) Situational depression (Acute) Solar keratosis (Acute) Squamous cell carcinoma (Acute) Squamous cell carcinoma in situ (Acute) Squamous cell carcinoma in situ (Acute) Squamous cell carcinoma in situ (Acute) Venous insufficiency of both lower extremities (Acute) Hypertension (Chronic) Surgical History EXCISION ATYPICAL SQUAMOUS LESION (Acute) EXCISION LESIONS AND SKIN CANCERS (Acute) EXCISION OF SKIN CANCER FACE AND HANDS (Acute) H/O knee surgery (Acute) History of basal cell carcinoma excision (Acute) History of carpal tunnel surgery (Acute) History of cholecystectomy (Acute) History of squamous cell carcinoma excision (Acute) History of squamous cell carcinoma excision (Acute) Hx of cataract surgery (Acute) INTRADERMAL EXCISION LESIONS (Acute) Family History Sister Diabetes Social History housing: house Smoking Status: Current some day smoker second hand exposure: No quit status: has quit before alcohol intake: current details: [employer]IN[employer] SOCIAL substance use type: does not use what type of physical activity do you participate in: other seatbelt use: always do you feel safe at home: Yes additional social history: SUN EXPOSURE: FREQUENTLY HPI HPI HPI: HPI: 72yo WM who presents to the office today for general surgical consultation regarding a abdominal aortic aneurysm. The patient is referred by primary care physician Dr. Alvin Hughes, III and a written copy of my surgical consult recommendations will be returned to him. The patient weighs 235 pounds. For a period of time several years the patient reports having had a known abdominal aortic aneurysm. He is not symptomatic. Most recently on July 15 a aortic ultrasound demonstrated 4.8 x 4.9 cm transverse abdominal aortic aneurysm over length of 5.7 cm. There is also felt to be aneurysmal dilatation of both common iliac arteries. The patient is referred for surgical consultation. Within the past year the patient had a fall accident causing left rib fractures. He had CT scans of that area he reports. Currently he states that he has not been as active as normally. He was a long-term cigarette smoker having quit 1988. He has been a lifelong snuff chew chewing person he continues to chew snuff. He is able to climb a flight of stairs albeit with some dyspnea. He was able to successfully undergo a right knee meniscus surgery 1 month ago. He has had 4 previous operations on his left knee. He has had a remote cholecystectomy. As of February 04, 2017 he had a cardiac stress test performed at the [facility]. There is no evidence of any inducible ischemia. Left ventricle and right ventricle both normal in size. Left ventricular ejection fraction was 54%. On further review after the patient left for his appointment there is evidence of a CT scan of the abdomen January 11, 2017 showing a 4.8 cm aneurysm. That was not done in a CTA fashion. ROS General General: No weight change, appetite, fatigue, colon cancer, breast cancer or weakness HEENT HEENT: No difficulty swallowing, eye injury, eye surgery, swollen glands or hoarseness Endo Endocrine: Yes diabetes mellitus; no thyroid disease, thyroid cancer, Hair loss, heat intolerance or cold intolerance Skin Skin: No rash or changing moles Breast Breast: No left breast lump, right breast lump, nipple discharge, breast pain, abnormal mammogram, abnormal US or breast enlargement Musc Musculoskeletal: Yes gout; no back problems, arthritis, rheumatoid arthritis or joint pain Cardio Cardiovascular: Yes heart disease, heart attack and heart stent; no murmur, pacemaker, atrial fibrillation, high blood pressure, palpitations, shortness of breat with exertion or chest pain Psych Psychiatric: No depression, anxiety or hearing voices Resp Respiratory: No shortness of breath, No sleep apnea, No cough, No COPD, No asthma, No emphysema, No wheezing Gastro Gastrointestinal: No abdominal pain, No nausea or vomiting, No diarrhea, No constipation, No blood in stool, No acid reflux, No hemorrhoids, No ulcers, No gallbladder problem, No black,tarry stools Sd Hematologic: Yes blood thinners, No blood disorders, No bleeding, No anemia, No blood clots Neuro Neurologic: No system reviewed and no additional complaints, except as docu, No as per HPI, No abnormal walking, No abnormal hearing, No abnormal movements, No abnormal speech, No behavioral changes, No burning sensations, No confusion, No seizure-like activity, No unsteadiness, No dizziness, No localized weakness, No frequent falls, No headache(s), No lack of coordination, No loss of vision, No memory loss, No numbness, No other visual disturbances, No radiating pain, No restless legs, No sensory deficit, No fainting, No tingling, No tremor(s), No weakness, No other Exam Const General: cooperative, no acute distress Nutritional Appearance: average body habitus Orientation: alert [facility] Head: normal to inspection Eyes General: appearance normal, both eyes and all related structures Chest Breast Palpation: No nipple discharge Resp Effort AND Inspection: normal respiratory effort Cardio Rate: regular rate Heart Sounds: no murmurs Other: Bilateral carotids are 3+. Possible soft bruit on the right. Bilateral brachials and radials are 3+. Bilateral femorals are 3+. Bilateral popliteals DP and PT are 3+ GI Inspection: obesity Palpation: soft Auscultation: normal bowel sounds Neuro Cranial Nerves: CN's II-XI intact bilaterally Extrem General: no calf tenderness Psych Affect: normal affect Assessment AND Plan Problems 1. Abdominal aortic aneurysm (AAA) without rupture I71.4 2. Bruit of right carotid artery R09.89 Plan I am recommending the patient a CTA of the abdomen. This will allow for better determination the potential repair planning. I am also recommending a carotid duplex exam. I suspect a soft right carotid bruit. I have vigorously encouraged the patient to maximize his health benefits. He has been very sedentary over the winter and he is significantly deconditioned by his own admission. I have requested that he convert to a low-cholesterol diet. He states that he eats 2 sausage patties and 2 fried eggs every morning. I have asked him to cease his chewing tobacco. He has had an opportunity to ask and have questions answered. We will proceed with the imaging is noted then have the patient return to the office for further surgical consultation and anticipated treatment. I appreciate the opportunity of assisting with his surgical care. Cc: Dr. Alvin Hughes, III Nam Hughes M.D., F.A.C.S. Coding Level of Care Code Comprehensive,moderate Diagnoses Abdominal aortic aneurysm (AAA) without rupture I71.4 Presence of rupture: without rupture Bruit of right carotid artery R09.89 Laterality: right Time Spent (min) 60 ROS General General: No weight change, appetite, fatigue, colon cancer, breast cancer or weakness HEENT HEENT: No difficulty swallowing, eye injury, eye surgery, swollen glands or hoarseness Endo Endocrine: No thyroid disease, diabetes mellitus, thyroid cancer, Hair loss, heat intolerance or cold intolerance Skin Skin: No rash or changing moles Breast Breast: No left breast lump, right breast lump, nipple discharge, breast pain, abnormal mammogram, abnormal US or breast enlargement Musc Musculoskeletal: No back problems, arthritis, rheumatoid arthritis, gout or joint pain Cardio Cardiovascular: No murmur, pacemaker, heart disease, atrial fibrillation, high blood pressure, heart attack, heart stent, palpitations, shortness of breat with exertion or chest pain Psych Psychiatric: No depression, anxiety or hearing voices Resp Respiratory: Yes shortness of breath, No sleep apnea, Yes cough, No COPD, No asthma, No emphysema, No wheezing Gastro Gastrointestinal: No abdominal pain, No nausea or vomiting, No diarrhea, No constipation, No blood in stool, Yes acid reflux, No hemorrhoids, No ulcers, No gallbladder problem, No black,tarry stools Sd Hematologic: No blood thinners, No blood disorders, No bleeding, No anemia, No blood clots Neuro Neurologic: No system reviewed and no additional complaints, except as docu, No as per HPI, No abnormal walking, No abnormal hearing, No abnormal movements, No abnormal speech, No behavioral changes, No burning sensations, No confusion, No seizure-like activity, No unsteadiness, No dizziness, No localized weakness, No frequent falls, No headache(s), No lack of coordination, No loss of vision, No memory loss, No numbness, No other visual disturbances, No radiating pain, No restless legs, No sensory deficit, No fainting, No tingling, No tremor(s), No weakness, No other Exam Const General: cooperative Nutritional Appearance: obese [facility] Head: normal to inspection Eyes General: appearance normal, both eyes and all related structures Neck Neck: normal visual inspection Chest Chest palpation AND inspection: normal inspection of the chest Breast Palpation: No nipple discharge Resp Effort AND Inspection: normal respiratory effort Auscultation: clear to auscultation bilaterally Cardio Rate: regular rate Heart Sounds: no murmurs GI Other: Overweight I cannot detect any abnormal internal organs Musc Cervical Spine: normal cervical lordosis Neuro Cranial Nerves: CN's II-XI intact bilaterally Extrem General: no calf tenderness Psych Affect: normal affect Assessment AND Plan Problems 1. Personal history of colonic polyps Z86.010 Plan I am recommending the patient a colonoscopy with possible biopsy or polypectomy is indicated. I believe that will be sufficient to hold his clopidogrel and Eliquis both for 2 days. He is aware of the technique, benefits, risks and alternatives. He performed well previously under IV sedation. Very careful inspection particularly of the sigmoid and descending colon will be pursued inspecting for recurrent polyps. We will schedule and proceed at his discretion. I appreciate the opportunity of continue to assist with his surgical care. Cc: Dr. Alvin Hughes, JACKSON Hughes M.D., F.A.C.S. Orders Orders: Coding Level of Care Code Off vis,est,level 3 Diagnoses Personal history of colonic polyps Z86.010 08/06/17 1019 <Electronically signed by Nam Hughes MD> Date Nam Hughes MD Cosigner Signature: Date (if applicable) CC: Alvin Hughes III, MD BASIC METABOLIC Collected: 08/05/2017 Status: F Source: GIL PROFILE (BMP) 1:48 PM [facility] REPOSITORY TYPE CODE TESTS RESULT OUT OF RANGE REFERENCE UNITS LAB L501.0100 74-106 mg/dL Normal GLU 98 Result Comment: Please note revised GLUCOSE reference range effective 2017. LAB L501.1000 7-18 mg/dL Normal BUN 11 LAB L501.1100 0.70-1.30 mg/dL Normal CREAT,SERUM 0.94 Result Comment: The validity of the calculated GFR AND GFRAA in patients over 70 years has not been determined. Clinical correlation is essential. LAB L501.1110 >60 mL/min Normal EST GFR 84 Result Comment: Non- GFR Calc LAB L501.1115 >60 mL/min Normal EST GFR - AA 101 Result Comment: GFR Calc LAB L501.1300 10-20 RATIO Normal BUN/CRE 11.7 LAB L501.2200 8.5-10.1 mg/dL CA Normal 8.8 LAB L501.5300 136-145 mmol/L NA Normal 140 LAB L501.5600 3.5-5.1 mmol/L K Normal 3.8 LAB L501.5900 98-107 mmol/L CL Normal 103 LAB L501.6100 21.0-32.0 mmol/L Normal CO2 30.0 LAB L501.6200 5-15 Normal GAP 7 Performed By: #### L500.2500 #### [facility] [address] [place], [address] PLASTIC SURGERY Observed: 07/26/2017 Status: F Source: GIL VISIT REPORT 4:35 PM [facility] REPOSITORY [facility] [address] [place] [address] OFFICE VISIT Date of Service: 06/18/17 MR#: [id number] Acct: [id number] Name: VICKI RANDLE Rep #: [id number] : 1945 Provider: Mary Ann Dudley MD Age/Sex: 71/M Location: [facility] Status: Signed Intake Vital Signs06/18/17 Height 6 ft 1 in 06/18/17 Weight: 257 lb 2 oz Intake Visit Reasons: evaluation for TBSE Administrative Intern Required: No Accompanied by: None Is patient in pain?: No Allergies adhesive Adverse Reaction (Verified 06/18/17 16:49) Itching atorvastatin [From Lipitor] Adverse Reaction (Verified 06/18/17 16:49) Other rosuvastatin calcium [From Crestor] Adverse Reaction (Verified 06/18/17 16:49) ACHING Medications Finasteride [Proscar] 5 mg PO DAILY 11/18/13 [History Confirmed 06/18/17] Omeprazole [Prilosec] 20 mg PO DAILY 11/18/13 [History Confirmed 06/18/17] Tamsulosin HCl [Flomax] 0.4 mg PO DAILY 11/18/13 [History Confirmed 06/18/17] Amlodipine [Norvasc] 10 mg PO DAILY 03/19/16 [History Confirmed 06/18/17] Aspirin E.C. [Ecotrin] 81 mg PO DAILY@0800 12/27/16 [History Confirmed 06/18/17] Fluoxetine HCl [Prozac] 20 mg PO DAILY 12/27/16 [History Confirmed 06/18/17] Ondansetron [Zofran Odt] 4 mg PO Q8H PRN PRN #10 tab 12/27/16 [Rx Confirmed 06/18/17] imiquimod 5 % topical cream packet 1 applic TOPICAL 5XW #30 ea 07/26/17 [Rx Confirmed 07/26/17] PFSH Medical History ACTINIC LESION WITH SEVERE ATYPIA (Acute) ATYPICAL SQUAMOUS EPITHELIAL LESION WITH SOLAR KERATOSIS (Acute) ATYPICAL SQUAMOUS LESION LEFT PREAURICULAR AREA (Acute) Actinic keratosis (Acute) Actinic skin damage (Acute) Basal cell carcinoma (Acute) Carpal tunnel syndrome (Acute) Cataract (Acute) INFLAMED ACTINIC KERATOSIS (Acute) INFLAMED ACTINIC KERATOSIS RIGHT VOLAR FOREARM (Acute) Prostate enlargement (Acute) SCATTERED ACTINIC DAMAGE ON FACE AND UPPER EXTREMITIES (Acute) Seborrheic keratosis (Acute) Solar keratosis (Acute) Squamous cell carcinoma (Acute) Squamous cell carcinoma in situ (Acute) Squamous cell carcinoma in situ (Acute) Squamous cell carcinoma in situ (Acute) Surgical History EXCISION ATYPICAL SQUAMOUS LESION (Acute) EXCISION LESIONS AND SKIN CANCERS (Acute) EXCISION OF SKIN CANCER FACE AND HANDS (Acute) H/O knee surgery (Acute) History of basal cell carcinoma excision (Acute) History of carpal tunnel surgery (Acute) History of cholecystectomy (Acute) History of squamous cell carcinoma excision (Acute) History of squamous cell carcinoma excision (Acute) Hx of cataract surgery (Acute) INTRADERMAL EXCISION LESIONS (Acute) Family History Sister Diabetes Social History housing: house Smoking Status: Current some day smoker second hand exposure: No quit status: has quit before 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 He has noticed enlarging lesions on his left cheek, base of his right thumb, dorsum right hand by index finger, dorsum left hand by first webspace, and dorsal distal left forearm, and superior helical rim right ear. These lesions have increased in size over the last several months and have developed some crustiness. He denies any trauma. He denies any fever. He has used Aldara in the past with success. 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 Atypical squamous lesion left preauricular area Inflamed actinic keratosis dorsum left hand by ring finger Actinic keratosis with moderate to focal severe atypia left medial arm Actinic keratosis nasal dorsum Actinic keratosis with focal moderate to severe atypia right posterior ear Solar keratosis dorsum right hand by first web space Inflamed actinic keratosis right volar forearm Solar keratosis left lateral forehead Solar keratosis right lateral forehead by eyebrow Solar keratosis left distal dorsal forearm Solar keratosis left distal radial forearm Actinic damage left distal dorsal forearm Actinic damage left distal dorsal radial forearm Actinic damage dorsum bilateral hands Actinic damage right dorsal radial wrist near the base of the thumb Actinic damage right dorsal radial midforearm Solar keratosis mid dorsal right forearm Squamous cell carcinoma in situ and solar keratosis distal dorsal right forearm Actinic lesion with severe atypia dorsal right hand by the base of the thumb Squamous cell carcinoma in situ with solar keratosis dorsum left hand by base of thumb Squamous cell carcinoma in situ left lower back Seborrheic keratosis left upper back Actinic lesion left nasal tip Actinic lesion with severe atypia middle helical rim left ear Actinic lesion with moderate atypia dorsum right hand distally and by the long finger Actinic lesions cluster 2 with moderate atypia dorsum left hand proximally by long finger 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 Actinic keratosis with severe atypia left arm Basal cell carcinoma right posterior auricular area, anteriorSquamous cell carcinoma dorsal aspect mid right forearm Actinic keratosis with moderate to severe atypia right postauricular area, posterior Actinic keratosis with focal squamous cell carcinoma in situ dorsum right hand by ring finger Actinic keratosis with severe atypia dorsum left hand by first webspace Actinic keratosis with severe atypia dorsal radial distal left forearm by rest Actinic keratosis left upper neck, upper Actinic keratosis with moderate to severe atypia left lateral neck, lower actinic keratosis with moderate atypia left posterior arm PAST SURGICAL HISTORY: Excision of skin cancer face and hands Carpal tunnel surgery bilaterally Cholecystectomy Knee surgery 5 Cataract surgery Excision 11 mm basal cell carcinoma left dorsal mid forearm with rhomboid transposition skin flap reconstruction and excision 12 mm squamous cell carcinoma right dorsal mid forearm with full-thickness skin graft reconstruction from proximal right forearm (10 cm 's) on November 07, 2010 Excision 7 mm atypical squamous lesion left preauricular area with 25 mm delayed closure and intradermal excision 1 cm actinic lesion superior helical rim left ear and intradermal excision 7 mm echogenic lesion right posterior ear and intradermal excision 7 mm actinic lesion nasal dorsum and intradermal excision 5 mm lesion dorsum left hand and intradermal excision 5 mm lytic lesion left medial arm and intradermal excision 6 mm lesion right volar forearm on May 10, 2011 Intradermal excision 1 cm lesion dorsum right hand by the index finger and intradermal excision 5 mm lesion dorsum right hand first webspace and intradermal excision 5 mm lesion dorsum left hand by first webspace and intradermal excision 5 mm lesion left distal radial forearm and intradermal excision 5 mm lesion left distal dorsal forearm and intradermal excision 6 mm lesion right lateral forehead by the lateral eyebrow and intradermal excision 5 mm lesion left lateral forehead on August 22, 2011Excision 1 cm lesion left upper back with 3 cm layered closure and excision 2.1 cm lesion left lower back 6.5 cm layered closure and intradermal excision 1 cm squamous cell carcinoma in situ distal dorsal right forearm and intradermal excision 6 mm squamous cell carcinoma in situ dorsum right hand by the base of thumb and intradermal excision 6 mm squamous cell carcinoma in situ dorsum left hand by base of thumb on November 19, 2012 Excision 6 mm squamous cell carcinoma in situ superior helical rim left ear with helical rim advancement skin flap reconstruction and intradermal excision 5 mm actinic lesion with severe atypia middle helical rim left ear and and intradermal excision 6 mm actinic lesion with severe atypia dorsal base right thumb and intradermal excision 6 mm actinic lesion with moderate atypia dorsum right hand distally by the long finger and intradermal excision 6 mm actinic lesion cluster 3 with moderate atypia dorsum left hand proximally by the long finger on November 25, 2013 Excision 10 mm 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 and first stage complex left ear reconstruction with left postauricular advancement skin flap reconstruction and placement of cartilage graft from right ear and excision 7 mm actinic keratosis with severe atypia left arm with 5 cm layered closure on April 04, 2015 Second stage complex left ear reconstruction with division and inset of postauricular skin flap and reconstruction left postauricular donor site wound with advancement skin flap on April 25, 2015 Intradermal excision 7 mm actinic keratosis left lateral neck, lower, and intradermal excision 2.3 cm actinic keratosis left lateral neck, upper, and intradermal excision 5 mm actinic keratosis dorsum right hand by ring finger and intradermal excision 10 mm actinic keratosis dorsum left hand by first webspace and intradermal excision 8 mm actinic keratosis dorsal radial distal left forearm by wrist and excision 15 mm squamous cell carcinoma dorsal aspect mid right forearm with rhomboid transposition skin flap reconstruction protheses 14.5 cm ) and intradermal excision 8 mm actinic keratosis left posterior arm and excision 1 cm basal cell carcinoma right postauricular area, anterior, with rhomboid transposition skin flap reconstruction and intradermal excision 6 mm actinic keratosis right postauricular area, posterior on March 19, 2016 MEDICATIONS: Aspirin Zetia Omeprazole Flomax Lisinopril Aldara ALLERGIES: Adhesive tape FAMILY HISTORY: Negative for skin cancer, negative for bleeding disorders, and positive for diabetes SOCIAL HISTORY: Patient is a former smoker. Sometimes he starts up again but he has recently quit. He chews tobacco now. Patient does not drink alcohol. REVIEW OF SYSTEMS General-denies fever, fatigue, and weight loss. Eyes-denies eye pain. His cataracts. Denies glaucoma. ENT-denies nasal congestion sore throat. Cardiovascular-denies chest pain, fatigue, lightheadedness, and shortness of breath with exertion. Respiratory-complains of shortness of breath. Denies cough. Patient has a history of smoking and has quit. Chews tobacco now. Gastrointestinal-denies nausea, vomiting, diarrhea, and constipation. Genitourinary-complains of urinary frequency. Denies hematuria. Has prostate enlargement. Musculoskeletal-denies back pain, stiffness, muscle weakness, or arthritis. Had bilateral carpal tunnel surgery. Had knee surgeries 5. Skin-he has enlarging lesions on his left cheek, base of right thumb, dorsum right hand by index finger, dorsum left hand by first webspace, dorsal distal left forearm, and superior helical rim right ear. He has had multiple skin cancers removed in the past and multiple actinic lesions removed in the past. Neuro-denies poor balance, headaches, or weakness. Psych-denies anxiety depression. Endocrine-denies excessive thirst or urination. Hematologic-denies abnormal bruising and bleeding. PHYSICAL EXAMINATION General - Alert and oriented. HEENT -pupils equal round and reactive to light. Extraocular muscles intact. Throat is clear. On his left ear the flap on the middle helical rim is healing satisfactory with good contour. On the superior helical rim right ear is a 6 mm lesion that is slightly raised in configuration. Has some crustiness. Has irregular borders. No ulceration. Lesion is nontender. On his left cheek is a 6 mm lesion that is slightly raised in configuration. Has some crustiness. Has irregular borders. No ulceration. Lesion is nontender. Neck-no cervical adenopathy. No masses. No suspicious lesions noted. Chest wall-No suspicious lesions noted Lungs-Clear to auscultation. Heart-regular rate and rhythm. Abdomen-soft and nondistended. No suspicious lesions noted. Back-no suspicious lesions noted. Extremities-no clubbing cyanosis or edema with full range of motion of all joints. On the dorsum right hand by index finger is a 1 cm lesion that is slightly raised in configuration. Has some crustiness. Has irregular borders. No ulceration. Lesion is nontender. Has been treated with Aldara in the past. On the base of his right thumb is a 6 mm lesion that is slightly raised in configuration. Has some crustiness. Has irregular borders. No ulceration. Lesion is nontender. On the dorsum left hand by first webspace ia a 4 mm lesion that is slightly raised in configuration. Has some crustiness. Has irregular borders. No ulceration. Lesion is nontender. On the dorsal distal left forearm is a 6 mm lesion that is slightly raised in configuration. Has some crustiness. Has irregular borders. No ulceration. Lesion is nontender. No axillary adenopathy. Radial pulses are palpable. Neuro--cranial nerves II through XII grossly intact. ASSESSMENT 1. 6 mm lesion superior helical rim right ear. 2. 6 mm lesion left cheek. 3. 1 cm lesion dorsum right hand by index finger. 4. 6 mm lesion base right thumb. 5. 4 mm lesion dorsum left hand by first webspace. 6. 6 mm lesion dorsal distal left forearm. 7. Personal history of skin cancer. 8. Former smoker. PLAN We will write another prescription for Aldara that he will use on these lesions because of his history of skin cancer and actinic lesions. Some of these lesions may be actinic in nature and would benefit from the use of Aldara. The areas include superior helical rim right ear, left cheek, dorsum right hand by index finger, base of right thumb, dorsum left hand by first webspace, and dorsal distal left forearm. He may not start using the Aldara right away since he is in the process of getting his right knee evaluated that may need surgery. If so then he will start the Aldara after his surgery. He understands how to use it since he has used it in the past. I told the patient as long as we see improvement with the Aldara he can come back and see me in 6 months for a TBSE. If he uses Aldara and is not getting any improvement then he will need to come back in 2 months for evaluation for possible excision. If lesions are excised, will send them to pathology for analysis to rule out carcinoma. Assessment AND Plan Problems 1. Neoplasm of skin of ear D49.2 2. Neoplasm of skin of hand D49.2 3. Neoplasm of skin of forearm D49.2 4. Neoplasm of skin of left cheek D49.2 5. Personal history of skin cancer Z85.828 6. Former smoker Z87.891 7. Actinic keratosis L57.0 Medications New: imiquimod 5% apply the imiquimod daily at night 5 days per week f1 applic Topical 5XW or 6 weeks. Coding Level of Care Code Off vis,est,level 3 Diagnoses Neoplasm of skin of ear D49.2 Neoplasm of skin of hand D49.2 Neoplasm of skin of forearm D49.2 Neoplasm of skin of left cheek D49.2 Personal history of skin cancer Z85.828 Former smoker Z87.891 Actinic keratosis L57.0 07/26/17 1635 <Electronically signed by Mary Ann Dudley MD> Date Mary Ann Dudley MD Cosigner Signature: Date (if applicable) CC: Alvin Hughes III, MD PROGRESS Observed: 07/16/2017 Status: COMPLETED Source: [place] 5:[address] [facility] [place] REPOSITORY HNO ID: [id number] Author: Alvin Hughes III Service: (none) Author Type: Physician Type: Progress Notes Filed: 07/16/2017 5:10 PM Note Text: Please notify patient that The abdominal aortic aneurysm measures 4.9 cm. I have discussed the case with Dr. Nam Hughes who recommends surgical evaluation. The patient had previously indicated interest in evaluation by Dr. Hughes type placed the consult order. Alvin Hughes III, MD, FAAFP US ABD AORTA Observed: 07/15/2017 Status: F Source: [place] 11:24 AM [facility] REPOSITORY * * *Final Report* * * DATE OF EXAM: Jul 15 2017 11:24AM [facility] 1075 - US ABD AORTA / PROCEDURE REASON: Abdominal aortic aneurysm, without rupture * * * * Physician Interpretation * * * * Ultrasound of the abdominal aorta: HISTORY: 72 years old Clinical information: Abdominal aortic aneurysm, without rupture TECHNIQUE: Views obtained: Sagittal and axial images.Images stored and permanent archive. Comparison: Vascular lab 01/29/2017 RESULT: Findings: The abdominal aorta was visualized throughout the abdomen. Maximum diameter : (measuements in cm.) Proximal aorta: 2.7. MID aorta: 2.4. Distal aorta: 4.3 sagittal by 4.8 AP by 4.9 cm transverse. Right common iliac: 1.9 cm. left common iliac: 2.2 cm. IMPRESSION: 1. Abdominal aortic aneurysm measuring 5.7 cm longitudinally by 4.8 cm AP by 4.9 cm transversely. Vascular lab measured it previously 4.8 cm AP by 4.8 cm transversely 2. 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 Urology Physician: PSCB Transcribe Date/Time: Jul 15 2017 11:57A Dictated by : JOSE POLLOCK DO This examination was interpreted and the report reviewed and electronically signed by: JOSE POLLOCK DO on Jul 15 2017 12:02PM EST [id number] PROGRESS Observed: 07/15/2017 Status: COMPLETED Source: [place] 10:39 AM [facility] REPOSITORY HNO ID: [id number] Author: Anna Rivera Service: (none) Author Type: (none) Type: Progress Notes Filed: 07/15/2017 11:25 AM Note Text: Radiology Service Progress Note PATIENT NAME: Vicki Randle DATE OF SERVICE: July 15, 2017 TIME: 10:39 AM PATIENT IDENTITY VERIFICATION COMPLETED USING TWO (2) METHODS: Patient confirmed name verbally and Date of . PATIENT GENDER DATA: Male PATIENT RELEVANT IMPLANT DATA REVIEWED: Yes RADIOLOGY DEPARTMENT: Ultrasound PERIPHERAL IV DATA: Not applicable SIGNED BY: Anna Rivera July 15, 2017 10:39 AM PROGRESS Observed: 07/12/2017 Status: COMPLETED Source: [place] 11:29 AM [facility] REPOSITORY HNO ID: [id number] Author: Alvin Hughes III Service: (none) Author Type: Physician Type: Progress Notes Filed: 07/12/2017 1:46 PM Note Text: SUBJECTIVE: This is a 72 year old male that is here today for 1. lumbar facet arthritis: No problems with back pain at this time. 2. COPD: No cough or shortness of breath at this time. 3. Left rib fx--healed well. These rib fractures have prevented him from working in the barn though he is healing now 4. AAA--ultrasound of the abdomen demonstrated abdominal aorta measuring 4.8 cm on 01/29/17. Report reviewed. We discussed re-checking this with abdominal ultrasound. He denies having any pain in the abdomen or lower back 5. Patient notes continued occasional discomfort in the anterior neck especially when he's in a recliner and forward flexes his head. Chart review shows that I did evaluate this area in July,. He had a nonsignificant thyroid cyst. Subsequent evaluation by ENT (Dr. Rose) involved MRI of the soft tissue of the neck, which discovered a calcified lymph node in the subcutaneous tissue of the anterior neck near the manubrium. Report reviewed with patient.. I did offer referral for surgical excision of this calcified lymph node since it is causing him symptoms and concern. He will think about it. 6. Patient had meniscus removed from right knee last week. Walking without cane or crutch PAST MEDICAL HISTORY Diagnosis Date - AAA (abdominal aortic aneurysm) (HCC) 02/06/2012 01/10/17: CT abd 4.8 cm - Benign hypertension 07/13/2015 - Esophageal reflux Gastroesophageal reflux - Facet arthritis of lumbar region (HCC) 06/27/2014 - Hypertrophy of prostate without urinary obstruction and other lower urinary tract symptoms (LUTS) Hypertrophy of the prostate w/o obstruction - Mixed hyperlipidemia Hyperlipidemia - Nodule of right lung 04/17/2012 - Other specified disorder of gallbladder 09/07/07 - Pulmonary emphysema (HCC) 12/31/2016 - Sebaceous cyst - Situational depression 07/03/2016 - Skin cancer Non-melanoma. - Squamous cell carcinoma 04/04/2015 See scanned documents - Venous insufficiency of both lower extremities 07/01/2014 Current Outpatient Prescriptions on File Prior to Visit: FLUoxetine (PROZAC) 20 mg capsule Take 1 capsule by mouth once daily. brimonidine (ALPHAGAN) 0.2 % ophthalmic solution Use 1 Drop in both eyes twice daily. cholecalciferol (VITAMIN D3) 1,000 unit tab tablet Take 1,000 Units by mouth once daily. timolol maleate (TIMOPTIC) 0.5 % ophthalmic solution Use 1 Drop in both eyes twice daily. tamsulosin ER (FLOMAX) 0.4 mg cp24 Take 1 capsule by mouth once daily. finasteride (PROSCAR) 5 mg tablet Take 1 tablet by mouth once daily. omeprazole (PRILOSEC) 20 mg capsule Take 1 capsule by mouth every morning. aspirin, enteric coated (ECOTRIN LOW STRENGTH) 81 mg EC tablet Take 1 tablet by mouth once daily. No current facility-administered medications on file prior to visit. FAMILY HISTORY Problem Relation Age of Onset - Arthritis Sister - Emphysema Mother - Hypertension Maternal Grandmother Social History Substance Use Topics - Smoking status: Former Smoker Packs/day: 1.00 Years: 30.00 Types: Cigarettes Quit date: 06/02/1988 - Smokeless tobacco: Current User Types: Chew Comment: Brief relaps after of spouse. - Alcohol use Yes Comment: Seldom BP 102/68 Pulse 74 Resp 16 Wt 115.7 kg (255 lb) BMI 33.64 kg/m2 . OBJECTIVE: APPEARANCE Well appearing, alert, in no acute distress, well-hydrated, well nourished. NECK Supple, no adenopathy; thyroid symmetric, normal size, no bruits, there is a fullness in the anterior neck near the manubrium. This probably correlates to the calcified lymph nodes seen on the MRI scan of the neck HEART RRR with normal S1 and S2, no murmurs, no gallops, no JVD appreciated LUNG clear to auscultation ABDOMEN soft, non-tender, non-distended, without organomegaly or palpable masses, no tenderness to palpation BACK: No tenderness of LS midline EXTREMITIES mild swelling of the right knee. He walks favoring the right knee with a limp ASSESSMENT: Known abdominal aortic aneurysm measuring 4.8 cm?asymptomatic Healed left rib fractures Lumbar facet arthritis?stable COPD?stable/well-controlled Arthritis right knee, status post recent meniscectomy PLAN: healthy diet continue home knee exercises aorta ultrasound to follow aneurysm same medications careful activity JACKSON Gay MD, III MD CBC-COMPLETE BLOOD CNT Collected: 06/27/2017 Status: F Source: GIL NO DIFF 10:04 AM [facility] REPOSITORY TYPE CODE TESTS RESULT OUT OF RANGE REFERENCE UNITS LAB L100.1000 4.4-11.0 K/mm3 Normal WBC 7.1 LAB L100.1200 4.6-6.2 M/mm3 Normal RBC 5.48 LAB L100.1300 13.0-16.5 g/dl Normal HGB 15.6 LAB L100.1400 40-54 % Normal HCT 49.7 LAB L100.1500 80-94 fL Normal MCV 90.7 LAB L100.1600 27.0-32.0 pg Normal MCH 28.5 LAB L100.1700 32-36 g/gl Low MCHC 31.4 LAB L100.1810 11.6-14.6 % High RDW CV 15.1 LAB L100.1820 35.1-43.9 fl High RDW SD 50.0 LAB L100.1900 150-450 K/mm3 Normal PLT 254 LAB L100.2000 6.2-12.0 fl Normal MPV 9.1 Performed By: #### L100.0500 #### [facility] [address] [place] [address]. [place], [address] BASIC METABOLIC Collected: 06/27/2017 Status: F Source: [place] PROFILE (BMP) 10:04 AM [facility] REPOSITORY TYPE CODE TESTS RESULT OUT OF RANGE REFERENCE UNITS LAB L501.0100 70-110 mg/dL Normal GLU 103 LAB L501.1000 7-18 mg/dL Normal BUN 11 LAB L501.1100 0.70-1.30 mg/dL Normal 1.02 CREAT,SERUM Result Comment: The validity of the calculated GFR AND GFRAA in patients over 70 years has not been determined. Clinical correlation is essential. LAB L501.1110 >60 mL/min Normal EST GFR 76 Result Comment: Non- GFR Calc LAB L501.1115 >60 mL/min Normal EST GFR - AA 92 Result Comment: GFR Calc LAB L501.1300 10-20 RATIO Normal BUN/CRE 10.8 LAB L501.2200 8.5-10.1 mg/dL CA Normal 8.6 LAB L501.5300 136-145 mmol/L NA Normal 140 LAB L501.5600 3.5-5.1 mmol/L K Normal 4.0 LAB L501.5900 98-107 mmol/L CL Normal 103 LAB L501.6100 21.0-32.0 mmol/L Normal CO2 31.0 LAB L501.6200 5-15 Normal GAP 6 Performed By: #### L500.2500 #### [facility] [address] [place], [address] OBSOLETE Observed: 06/06/2017 Status: COMPLETED Source: [place] 12:00 AM [facility] REPOSITORY Refill [facility] VICKI RANDLE ([id number]) 1945 M Date Time Provider Department 06/06/17 ALVIN HUGHES III [facility] During your visit today, we recorded the following information about you: Prema Ospina Psr 06/06/2017 3:29 PM Signed Patient has been identified by name and date of : Yes RX INSTRUCTIONS: Patient is requesting this is sent today, he is out tomorrow. Patient aware RX will be sent to pharmacy. No need to notify patient. Prema Ospina Psr Allergies As of Date: 06/06/2017 Noted Allergy Reaction LIPITOR (ATORVASTATIN CALCIUM) 03/11/2005 5 - Intolerance ROSUVASTATIN CALCIUM 03/02/2017 5 - Intolerance medical tape [Other] 03/11/2005 9 - Itching Date Reviewed: 03/12/2017 Reviewed by: Kaila Curry Ma - Fully Assessed Reason for Visit: Refill Request [94] Visit Diagnosis:Situational depression [F43.21] Order(s):FLUoxetine (PROZAC) 20 mg capsuleTake 1 capsule by mouth once daily.Disp: 30 capsuleRfl: 11 Prescriptions as of 06/06/2017 Sig: FLUOXETINE 20 MG CAPSULE Take 1 capsule by mouth once * OXYCODONE-ACETAMINOPHEN 5 MG-* Take 1 tablet by mouth every * BRIMONIDINE 0.2 % EYE DROPS Use 1 Drop in both eyes twice* CHOLECALCIFEROL (VITAMIN D3) * Take 1,000 Units by mouth onc* TIMOLOL MALEATE 0.5 % EYE SUZY* Use 1 Drop in both eyes twice* TAMSULOSIN 0.4 MG CAPSULE Take 1 capsule by mouth once * FINASTERIDE 5 MG TABLET Take 1 tablet by mouth once d* OMEPRAZOLE 20 MG CAPSULE,ALEKS* Take 1 capsule by mouth every* ASPIRIN 81 MG TABLET,DELAYED * Take 1 tablet by mouth once d* Problem List As Of Date 06/06/2017 Noted Resolved Hyperlipemia [E78.5] INVALID FOR* ESOPHAGEAL REFLUX [K21.9] More... 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] INVALID FOR* Venous insufficiency of both lower extremities *INVALID FOR* Benign hypertension [I10] INVALID FOR* Episodic paroxysmal hemicrania, not intractable*INVALID FOR* Situational depression [F43.21] INVALID FOR* Pulmonary emphysema (HCC) [J43.9] INVALID FOR* Closed fracture of one rib of left side [S22.32*INVALID FOR* Prescriptions ordered this encounter Disp Refills Start End FLUOXETINE 20 MG CAPSULE 30 c* 11 06/06/2017 Route: ORAL Sig: Take 1 capsule by mouth once daily. Medications Discontinued During This Encounter FLUoxetine (PROZAC) 20 mg capsule 30 c* 11 06/10/2016 06/06/2017 Route: ORAL Sig: Take 1 capsule by mouth once daily. Disc: Reason for discontinue is not on file. Encounter Status:Closed by ALVIN HUGHES III, MD on 06/06/17 ALLERGIES ALLERGIES DATE TYPE / CODE NAME / CODE REACTION SEVERITY SOURCE Drug rosuvastatin ACHING Unknown [place] 8 Allergy/655798835( calcium/O68268827 Community SNOMED CT) 3(RXNORM) Hospital Repository Drug adhesive/[id number] Itching Unknown [place] 8 Allergy/743402941( 45(RXNORM) Community SNOMED [facility]) Hospital Repository Drug atorvastatin/F006 Other Unknown [place] 8 Allergy/174470395( 170557(RXNORM) [facility] SNOMED CT) Hospital Repository Drug [id number]-BFN-BTE Myalgia [place] 8 Class/895574920(SN REDUCTASE Clinic Main OMED CT) INHIBITORS [place] [facility]ository DRUG ROSUVASTATIN INTOLERANCE [place] 7 INGREDI/998120200( CALCIUM [facility] Main SNOMED CT) [place] Rep[facility] DRUG ATORVASTATIN INTOLERANCE [place] 5 INGREDI/587223364( CALCIUM [facility] Main SNOMED CT) [place] Rep[facility] Miscellaneous OTHER ITCHING [place] 5 Allergy/725682888( Clinic Main SNOMED CT) [place] Repository ENCOUNTERS ENCOUNTERS ADMIT/DISCHARGE ACCOUNT ADMITTING ENCOUNTER LOCATION SOURCE NUMBER CLASS 05/18/2018/05/18/20 [id number] Ambulatory BMSBuilding:B [place] 18 [facility] Repository 05/18/2018 [id number] [facility] ing:[facility] Repository 05/13/2018 [id number] Ambulatory BMSBuilding:B [place].[facility] Repository 05/13/2018 [id number] [facility] ing:[facility] Repository 05/11/2018/05/11/20 [id number] Ambulatory BMSBuilding:B [place] 18 MS.[facility] Repository 05/04/2018/05/04/20 [id number] Ambulatory BMSBuilding:B [place] [address] Hospital Repository 04/28/2018 [id number] Ambulatory BMSBuilding:B [place] MS.CF.[facility] Hospital Repository 04/28/2018/04/28/20 [id number] [place]ulatory [place] Hospital ing:SDCRoom: Repository AC03 04/27/2018 [id number] Ambulatory BMSBuilding:B [place] MS.CF.[facility] Hospital Repository 03/16/2018/03/16/20 [id number] Ambulatory [address] Repository 03/16/2018/03/17/20 [id number] Ambulatory [address] Repository 02/19/2018/02/20/20 [id number] Emergency [place] 18 [facility] ing:ED Repository 01/16/2018/01/28/20 [id number] Ambulatory [address] Repository 01/09/2018/01/10/20 [id number] Ambulatory [address] Repository 01/09/2018/01/13/20 [id number] Ambulatory [address] Repository 01/07/2018/01/08/20 [id number] Ambulatory BMSBuilding:B [place] 18 [facility] Repository 01/06/2018/01/07/20 [id number] Ambulatory [address] Repository 12/29/2017/12/30/19 [id number] Ambulatory [place] Hospital ing:EN Repository 11/28/2017/11/29/19 [id number] Ambulatory [address] Repository 11/26/2017/11/27/19 [id number] Ambulatory BMSBuilding:B [place] 18 [facility] Repository 11/20/2017 [id number] Ambulatory [facility] Hospital ing:CT Repository 11/20/2017/11/22/19 [id number] Ambulatory [address] Repository 11/07/2017/11/11/19 [id number] Ambulatory [address] Repository 10/21/2017/10/23/19 [id number] Ambulatory [address] Repository 10/01/2017/10/03/19 [id number] Ambulatory [address] Repository 09/22/2017/09/23/19 [id number] Ambulatory BMSBuilding:B [place] 18 [facility] Repository 09/09/2017/09/11/19 [id number] Ambulatory BMSBuilding:B [place] 18 MS.CF.[facility] Repository 09/09/2017 [id number] [place] Ambulatory BMSBuilding:B [place] MS.Count includes the [facility] Repository 09/09/2017 [id number] [place] Ambulatory BMSBuilding:B [place] MS.Count includes the [facility] Repository 09/09/2017/09/11/19 [id number] [place] Inpatient [address] ing:ICURoom: Repository GGR02Wdv: 1 09/02/2017/09/11/19 [id number] Ambulatory BMSBuilding:W [place] 18 [facility] Repository 08/19/2017/08/20/19 [id number] Ambulatory BMSBuilding:B [place] 18 [facility] Repository 08/14/2017 [id number] Ambulatory BMSBuilding:B [place] MS.CF.[facility] Repository 08/14/2017 [id number] Ambulatory [facility] Hospital ing:[facility] Repository 08/07/2017 [id number] Ambulatory [facility] ing:CT Repository 08/05/2017 [id number] Ambulatory [facility] Hospital ing:MTLAB Repository 08/05/2017/08/06/19 [id number] Ambulatory BMSBuilding:B [place] 18 [facility] Repository 07/15/2017/07/15/19 [id number] Ambulatory [address] Repository 07/12/2017/07/12/19 [id number] Ambulatory [address] Repository 06/27/2017 [id number] Ambulatory [facility] Hospital ing:LAB Repository 06/18/2017/06/18/19 [id number] Ambulatory BMSBuilding:B [place] 18 [facility] Repository 05/21/2017/07/23/19 [id number] MARY ANN NEWELL 18 [facility] Repository PAYERS PAYERS ENCOUNTER GUARANTOR PAYER SUBSCRIBER SOURCE 05/18/2018 VICKI Cordero [id number] SR Insurance:AETFRACISCO RANDLEDOB: [address] MCRPolicy Number: [id number] Hospital 29013Iwo: (330) [id number] Repository [phone] () Date:6024-69-75XN [address] [place] [address]MB: 05/18/2018 Secondary NOT GIVENUNK [place] Insurance:SELF PAY [facility] Number: Effective Repository Date:2018-05-15 05/18/2018 VICKI Cordero [id number] SR Insurance:AETFRACISCO RANDLEDOB: [address] MCRPolicy Number: [id number] Hospital 36159Rgw: (330) [id number] Repository [phone] () Date:9943-56-97VE [address] [place] [address]PK: 05/18/2018 Secondary NOT GIVENUNK [place] Insurance:SELF PAY [facility] Number: Effective Repository Date:2018-05-18 05/13/2018 VICKI Cordero [id number] SR Insurance:AETFRACISCO MONSONB: [address] MCRPolicy Number: [id number] Hospital 13459Sbo: (330) [id number] Repository [phone] () Date:2507-19-13XT [address] [place] [address]SA: 05/13/2018 Secondary NOT GIVENUNK [place] Insurance:SELF PAY [facility] Number: Effective Repository Date:2018-05-13 05/13/2018 VICKI Cordero [id number] SR Insurance:AETNA RAZIADOB: [address] MCRPolicy Number: [id number] Hospital 71935Jgu: (330) [id number] Repository [phone] (HP) Date:6612-66-40CW [address] [place] [address]RV: 05/13/2018 Secondary NOT GIVENUNK [place] Insurance:SELF PAY [facility] Effective Repository Date:2018-05-04 05/11/2018 VICKI Cordero [id number] SR Insurance:AETFRACISCO MONSONB: [address] Number: [id number] Hospital 32766Lob: (330) [id number] Repository [phone] () Date:3557-29-77NT [address] [place] [address]RC: 05/11/2018 Secondary NOT GIVENUNK [place] Insurance:SELF PAY [facility] Number: Effective Repository Date:2018-05-11 05/04/2018 VICKI Primary VICKI Cordero [id number] SR Insurance:AETNA RAZIAB: [address] Number: [id number] Hospital 92876Wnn: (330) [id number] Repository [phone] () Date:4566-74-47DQ [address] [place] [address]CG: 05/04/2018 Secondary NOT GIVENUNK [place] Insurance:SELF PAY [facility] Number: Effective Repository Date:2018-05-04 04/28/2018 VICKI Primary VICKI Cordero [id number] SR Insurance:AETFRACISCO MONSONB: [address] MCRPolicy Number: [id number] Hospital 95577Uwg: (330) [id number] Repository [phone] () Date:1522-18-24UJ [address] [place] [address]WC: 04/28/2018 Secondary NOT GIVENUNK [place] Insurance:SELF PAY [facility] Number: Effective Repository Date:2018-04-28 04/28/2018 VICKI Cordero [id number] SR Insurance:AETNA RAZIAB: [address] [place]AN[place] MCRPolicy Number: [id number] Hospital 93010Dmg: (330) [id number] Repository [phone] () Date:7090-67-09EC [address] [place] [address]EW: 04/28/2018 Secondary NOT GIVENUNK [place] Insurance:SELF PAY [facility] Number: Effective Repository Date:2018-02-19 04/27/2018 VICKI Primary VICKI Cordero [id number] SR Insurance:JUWAN MONSONB: [place] [address]FabySA[facility] HEALTH SYSTEMraimundo [place]AN[place] MCRPolicy Number: [id number] Hospital 18476Fcc: (330) [id number] Repository [phone] () Date:2226-66-14BD [address] [place] [address]DQ: 04/27/2018 Secondary NOT GIVENUNK [place] Insurance:SELF PAY [facility] Number: Effective Repository Date:2018-04-27 02/19/2018 VICKI Primary VICKI Cordero [id number] SR Insurance:JUWAN MONSONB: [place] [address]Fabyraimundo GARCIA MCRPolicy Number: [id number] Hospital 56723Xft: (330) [id number] Repository [phone] () Date:5586-05-39XN [address] [place] [address]SR: 02/19/2018 Secondary NOT GIVENUNK [place] Insurance:SELF PAY [facility] Number: Effective Repository Date:2018-02-19 01/07/2018 VICKI Primary VICKI Cordero [id number] SR Insurance:JUWAN MONSONB: [place] [address]FabySAINT JOHN'S HEALTH SYSTEMFRANCIS hi MCRPolicy Number: [id number] Hospital 99803Xwx: (330) [id number] Repository [phone] () Date:8884-61-83JZ [address] [place] [address]CY: 01/07/2018 Secondary NOT GIVENUNK [place] Insurance:SELF PAY [facility] Number: Effective Repository Date:2017-12-09 12/29/2017 VICKI Demarco NOT GIVENUNK [place] [id number] SR Insurance:SELF PAY [address] [address]Lcm: (330) Number: Effective Repository [phone] (HP) Date:2017-11-28 11/26/2017 VICKI Primary VICKI Cordero [id number] SR Insurance:AETNA RAZIADOB: Community [address] [place], [place] [address]Policy Number: [id number] Hospital 65691Ogy: (330) [id number] Repository [phone] (HP) Date:1197-12-92PK [address] [place] [address]CC: 11/26/2017 Secondary NOT GIVENUNK [place] Insurance:SELF PAY [facility] Number: Effective Repository Date:2017-09-25 11/20/2017 VICKI Primary VICKI Cordero [id number] SR Insurance:AETNA RAZIADOB: [address] Number: [id number] Hospital 28439Xbt: (330) [id number] Repository [phone] (HP) Date:1006-14-90LM [address] [place] [address]WW: 11/20/2017 Secondary NOT GIVENUNK [place] Insurance:SELF PAY [facility] Number: Effective Repository Date:2017-09-22 09/22/2017 VICKI Primary VICKI Cordero [id number] SR Insurance:AETNA RAZIADOB: Community [address] [place], [place] [address]Policy Number: [id number] Hospital 39271Rep: (330) [id number] Repository [phone] (HP) Date:2161-26-28FL [address] [place] [address]DQ: 09/22/2017 Secondary NOT GIVENUNK [place] Insurance:SELF PAY [facility] Number: Effective Repository Date:2017-09-10 09/09/2017 VICKI Primary VICKI Cordero [id number] SR Insurance:AETFRACISCO MONSONB: [address], [place] MCRPolicy Number: [id number] Hospital 689[address]Tyi: (330) [id number] Repository [phone] (HP) Date:6504-19-43XT [address] [facility] [place] [address]LC: 09/09/2017 Secondary NOT GIVENUNK [place] Insurance:SELF PAY [facility]: Effective Repository Date:2017-09-09 09/09/2017 VICKI Cordero [id number] SR Insurance:AETFRACISCO MONSONB: [address], [place] MCRPolicy Number: [id number] Hospital 608[address]Wgq: (330) [id number] Repository [phone] (HP) Date:9212-61-88UB [address] [place] [address]JJ: 09/09/2017 Secondary NOT GIVENUNK [place] Insurance:SELF PAY [facility] Number: Effective Repository Date:2017-09-09 09/09/2017 VICKI Cordero [id number] SR Insurance:JUWAN MONSONB: [address] MCRPolicy Number: [id number] Hospital 89293Ogo: (330) [id number] Repository [phone] () Date:5546-28-57RJ [address] [place] [address]NL: 09/09/2017 Secondary NOT GIVENUNK [place] Insurance:SELF PAY [facility] Number: Effective Repository Date:2017-09-09 09/09/2017 VCIKI Cordero [id number] SR Insurance:MIANTFRACISCO MONSONB: [address], [place] MCRPolicy Number: [id number] Hospital 74952Hzn: (330) [id number] Repository [phone] (HP) Date:1087-67-71YG [address] [place] [address]BH: 09/09/2017 Secondary NOT GIVENUNK [place] Insurance:SELF PAY [facility] Number: Effective Repository Date:2017-08-22 09/02/2017 VICKI Cordero [id number] SR Insurance:AETNA RAZIADOB: Community [address], [place] MCRPolicy Number: [id number] Hospital 390[address]Oes: (732) [id number] Repository [phone] () Date:2412-41-01AJ [address], [place] [address]YZ: 09/02/2017 Secondary NOT GIVENUNK [place] Insurance:SELF PAY [facility] Number: Effective Repository Date:2017-09-02 08/19/2017 VICKI Cordero [id number] SR Insurance:AETNA RAZIADOB: Community [address] [place] [address], [place] MCRPolicy Number: [id number] Hospital 015[address]Vor: (330) [id number] Repository [phone] () Date:8223-68-21TY [address] [place] [address]EU: 08/19/2017 Secondary NOT GIVENUNK [place] Insurance:SELF PAY [facility] Number: Effective Repository Date:2017-08-05 08/14/2017 VICKI Cordero [id number] SR Insurance:AETFRACISCO RANDLEDOB: [address], [place] MCRPolicy Number: [id number] Hospital 18518Tts: (330) [id number] Repository [phone] () Date:5256-94-92OQ [address] [place] [address]KB: 08/14/2017 Secondary NOT GIVENUNK [place] Insurance:SELF PAY [facility] Number: Effective Repository Date:2017-08-14 08/14/2017 VICKI Cordero [id number] SR Insurance:AETNA RAZIADOB: Community [address] [place] [address], [place] MCRPolicy Number: [id number] Hospital 46389Nji: (330) [id number] Repository [phone] (HP) Date:1583-45-02SW [address] [place] [address]YI: 08/14/2017 Secondary NOT GIVENUNK [place] Insurance:SELF PAY [facility] Number: Effective Repository Date:2017-08-05 08/07/2017 VICKI Cordero [id number] SR Insurance:AETNA RAZIADOB: Community [address] [place] [address], [place] MCRPolicy Number: [id number] Hospital 11475Dpj: (330) [id number] Repository [phone] () Date:1166-39-83QZ [address] [place] [address]OQ: 08/07/2017 Secondary NOT GIVENUNK [place] Insurance:SELF PAY [facility] Number: Effective Repository Date:2017-08-05 08/05/2017 VICKI Cordero [id number] SR Insurance:AETNA RAZIADOB: Community [address] [place] [address], [place] MCRPolicy Number: [id number] Hospital 88259Koo: (330) [id number] Repository [phone] () Date:6374-64-31VZ [address] [place] [address]SX: 08/05/2017 Secondary NOT GIVENUNK [place] Insurance:SELF PAY [facility] Hospital Number: Effective Repository Date:2017-08-05 08/05/2017 VICKI Cordero [id number] SR Insurance:AETNA RAZIADOB: Community [address] [place] [address], [place] MCRPolicy Number: [id number] Hospital 34360Oxi: (330) [id number] Repository [phone] () Date:3726-17-20XT [address] [place] [address]AW: 08/05/2017 Secondary NOT GIVENUNK [place] Insurance:SELF PAY [facility] Number: Effective Repository Date:2017-07-21 06/27/2017 VICKI Cordero [id number] SR Insurance:AETNA RAZIADOB: [place] [address] [facility]: [id number] Hospital 76[address]Lwj: 330) [id number] Repository [phone] () Date:6033-64-25VG [address] [place] [address]CV: 06/27/2017 Secondary NOT GIVENUNK [place] Insurance:SELF PAY [facility] Number: Effective Repository Date:2017-06-27 06/18/2017 VICKI Primary VICKI Cordero [id number] STATE Insurance:AETNA IONAB: Community [address], [facility]Policy Number: [id number] [address]7660Fvh: [id number] Repository Date:5938-74-39PA [address] () [address] [place] [address]FQ: 06/18/2017 Secondary NOT GIVENUNK [place] Insurance:SELF PAY [facility] Number: Effective Repository Date:2017-05-03 05/21/2017 VICKI Primary VICKI Horn IONAB: Insurance:AETNA O RAZIADOB: [facility] [id number] [facility] [id number] [facility] [address] Number: [address], Repository [id number]: [id number] [place] [id number] Date:Plan Name:A3 () 05/21/2017 Secondary VICKI Horn Insurance:AETNA O RAZIADOB: [facility] [id number] Hospital Number: 5 [address], Repository [id number] [place] [id number] Date:Plan Name:A3
== END 2018-04-28 13:14 | disposition home or self-care (01) ==
LOC: SDC 06:16 → AC 06:16
PROVIDERS: Family Provider Family Medicine; PCP Family Medicine; Referring Provider Surgery; Visit Provider Surgery
DX: D04.61 Carcinoma in situ of skin of right upper limb, including shoulder (principal); L57.0 Actinic keratosis; L85.8 Other specified epidermal thickening; L57.8 Other skin changes due to chronic exposure to nonionizing radiation; N40.0 Benign prostatic hyperplasia without lower urinary tract symptoms; K21.9 Gastro-esophageal reflux disease without esophagitis; F32.9 Major depressive disorder, single episode, unspecified; I10 Essential (primary) hypertension; Z85.828 Personal history of other malignant neoplasm of skin; Z87.891 Personal history of nicotine dependence; Z79.82 Long term (current) use of aspirin; Z79.899 Other long term (current) drug therapy
CPT/HCPCS: 00400; 11402; 11421; 11441; 11623; 12031; 15650; 88305; 88331; J7120; J2405

== ENCOUNTER → 2018-05-13 08:34 | Outpatient (CLI) | payer MEDICARE, SELFPAY ==
[2018-04-28 06:40] VITALS: BMI 35.2
[2018-05-11 15:05] VITALS: BMI 35.2
--- NOTE | 2018-05-13 08:36 | AAAS_ITS ---
Reason For Study: AAA Aorta Measurements Aorta Doppler Measurements Proximal aorta measures1.86 x 1.88cm. in cross- Peak systolic flow velocities within the proximal sectional axis. aorta measure 69.7 cm/sec. Proximal aorta measures1.88cm. in longitudinal Peak systolic flow velocities within the mid aorta axis. measure 52.6 cm/sec. Mid aorta measures1.63 x 1.63cm. in cross- Peak systolic flow velocities within the distal sectional axis. aorta measure 34.8 cm/sec. Mid aorta measures1.64cm. in longitudinal axis. Distal aorta measures1.52 x 1.69cm. in cross- sectional axis. Distal aorta measures1.62cm. in longitudinal axis. Left Iliac Artery Left iliac artery measures 1.65 x 1.63 cm. in the cross-sectional axis. Left iliac artery measures 1.60 cm. in the longitudinal axis. Peak systolic velocity in the left iliac artery measures 51.9 cm/sec. Right Iliac Artery Right iliac artery measures 1.44 x 1.46 cm. in the cross-sectional axis. Right iliac artery measures 1.60 cm. in the longitudinal axis. Peak systolic velocity in the right iliac artery measures 43.4 cm/sec. Procedure Aorta IVC Iliac vasculature or bypass grafts [id number]. Exam performed in department. Interpretation Summary Maximal aortic dimensions proximally 1.86 x 1.88cm Normal flow velocity Left common iliac 1.65 x 1.63cm Right common iliac 1.44 x 1.46cm Ordering Physician: Nam Berg Referring Physician: JACKSON Berg M.D. Performed By: Otto FITZPATRICK RVT, Carrie and Student
--- OUTSIDE RECORDS SUMMARY | 2018-06-29 03:55 | XMS RPT_ITS ---
:1945 Author Organization OHIP Support Name Relationship Address Phone RAZIAMARCO Unavailable [address] + [place] [address] R Unavailable Unavailable Unavailable RAZIA MARCO Unavailable [address] + [place] [address] R Unavailable Unavailable Unavailable RAZIA MARCO Unavailable [address] + [place] [address] R Unavailable Unavailable Unavailable RAZIA MARCO Unavailable [address] + [place] [address] R Unavailable Unavailable Unavailable RAZIA MARCO Unavailable [address] + [place] [address] R Unavailable Unavailable Unavailable RAZIA MARCO Unavailable [address] + [place] [address] R Unavailable Unavailable Unavailable RAZIA MARCO Unavailable [address] + [place] [address] R Unavailable Unavailable Unavailable RAZIA MARCO Unavailable [address] + [place] [address] R Unavailable Unavailable Unavailable RAZIA MARCO Unavailable [address] + [place] [address] R Unavailable Unavailable Unavailable RAZIA MARCO Unavailable [address] + [place] [address] R Unavailable Unavailable Unavailable RAZIA MARCO Unavailable [address] + [place] [address] R Unavailable Unavailable Unavailable RAZIA MARCO Unavailable [address] + [place] [address] R Unavailable Unavailable Unavailable RAZIA MARCO Unavailable [address] + [place] [address] R Unavailable Unavailable Unavailable RAZIA MARCO Unavailable [address] + [place] [address] R Unavailable Unavailable Unavailable RAZIA, MARCO Unavailable [address] + [place] [address] R Unavailable Unavailable Unavailable RAZIA MARCO Unavailable [address] + [place] [address] R Unavailable Unavailable Unavailable RAZIA, MARCO Unavailable [address] + [place] [address] R Unavailable Unavailable Unavailable RAZIA, MARCO Unavailable [address] + [place] [address] R Unavailable Unavailable Unavailable RAZIA MARCO Unavailable [address] + [place] [address] R Unavailable Unavailable Unavailable RAZIA, MARCO Unavailable [address] + [place] [address] R Unavailable Unavailable Unavailable RAZIA, MARCO Unavailable [address] + [place] [address] R Unavailable Unavailable Unavailable RAZIA MARCO Unavailable [address] + [place] [address] R Unavailable Unavailable Unavailable RAZIA MARCO Unavailable [address] + [place] [address] R Unavailable Unavailable Unavailable RAZIA MARCO Unavailable [address] + [place] [address] R Unavailable Unavailable Unavailable RAZIA MARCO Unavailable [address] + [place] [address] R Unavailable Unavailable Unavailable RAZIA, MARCO Unavailable [address] + [place] [address] R Unavailable Unavailable Unavailable RAZIA MARCO Unavailable [address] + [place] [address] R Unavailable Unavailable Unavailable RAZIA MARCO Unavailable [address] [phone] [place] [address] R Unavailable Unavailable Unavailable RAZIA MARCO Unavailable [address] + [place] [address] R Unavailable Unavailable Unavailable RAZIA MARCO Unavailable [address] [phone] [place] [address] R Unavailable Unavailable Unavailable RAZIA MARCO Unavailable [address] [phone] [place] [address] R Unavailable Unavailable Unavailable Care Team Providers Name Role Phone CEBUL III, ALVIN A Attending Unavailable CEBUL III, ALVIN A Referring Unavailable CEBUL III, ALVIN A Referring Unavailable CEBUL III, ALVIN A Attending Unavailable CEBUL III, ALVIN A Referring Unavailable CEBUL III, ALVIN A Referring Unavailable CEBUL III, ALVIN A Referring Unavailable CEBUL III, ALVIN A Referring Unavailable BERTA CHOW (OLIVER) Attending Unavailable CEBUL III, ALVIN A Referring Unavailable BERTA CHOW (PA) Attending Unavailable CEBUL III, ALVIN A Referring Unavailable CEBUL III, ALVIN A Attending Unavailable CEBUL III, ALVIN A Referring Unavailable CHAN MENON (PA) Referring Unavailable CHAN MENON (PA) Attending Unavailable CEBUL III, ALVIN A Attending Unavailable CEBUL III, ALVIN A Referring Unavailable CEBUL III, ALVIN A Attending Unavailable CEBUL III, ALVIN A Referring Unavailable CEBUL III, ALVIN A Referring Unavailable Alba Nicolas Attending Unavailable Cebul III, Alvin Referring Unavailable CebulNam Attending Unavailable CebulNam Referring Unavailable Cebul III, Alvin Primary Care Unavailable CebulNam Consulting Unavailable Cebul III, Alvin Referring Unavailable Cebul III, Alvin Primary Care Unavailable Cebul III, Alvin Attending Unavailable CebulNam Attending Unavailable Cebul III, Alvin Referring Unavailable Cebul III, Alvin Primary Care Unavailable Mookie Rivero Attending Unavailable Francis Dudley Attending Unavailable Cebul III, Alvin Referring Unavailable GeslerFrancis Attending Unavailable GesFrancis peraza Referring Unavailable Cebul III, Alvin Primary Care Unavailable CebulNam Attending Unavailable Cebul III, Alvin Referring Unavailable Cebul III, Alvin Primary Care Unavailable CebulNam Attending Unavailable CebulNam Referring Unavailable Cebul III, Alvin Primary Care Unavailable CebulNam Attending Unavailable CebulNam Referring Unavailable Cebul III, Alvin Primary Care Unavailable CebulNam Attending Unavailable CebulNam Referring Unavailable Cebul III, Alvin Primary Care Unavailable Cebul, Nam Attending Unavailable Cebul III, Alvin Referring Unavailable Cebul III, Alvin Primary Care Unavailable Cebul, Nam Attending Unavailable CebulNam Referring Unavailable Cebul III, Alvin Primary Care Unavailable CebulNam Admitting Unavailable Gurjit Ohara Consulting Unavailable CebulNam Attending Unavailable Cebul III, Alvin Referring Unavailable Cebul, Nam Admitting Unavailable Kittoe, Gurjit Attending Unavailable Cebul III, Alvin Primary Care Unavailable Kittobrian, Gurjit Consulting Unavailable Cebul, Nam Consulting Unavailable Cebul, Nam Admitting Unavailable Kittoe, Gurjit Attending Unavailable Cebul III, Alvin Primary Care Unavailable Kittoe, Gurjit Consulting Unavailable Cebul, Nam Consulting Unavailable Cebul, Nam Attending Unavailable Cebul III, Alvin Referring Unavailable Cebul III, Alvin Primary Care Unavailable Cebul, Nam Attending Unavailable Cebul, Nam Attending Unavailable Concepcion, Luis Attending Unavailable Cebul, Nam Referring Unavailable Cebul, Nam Attending Unavailable Cebul, Nam Referring Unavailable Cebul III, Alvin Primary Care Unavailable Cebul, Nam Attending Unavailable Cebul III, Alvin Referring Unavailable Cebul III, Alvin Primary Care Unavailable Alvino, Andres Attending Unavailable Alvino, Andres Referring Unavailable Cebul III, Alvin Primary Care Unavailable Slaby, Francis Attending Unavailable Cebul III, Alvin Referring Unavailable Cebul III, Alvin Primary Care Unavailable Cebul III, Alvin Primary Care Unavailable Ml, Vicki Attending Unavailable Slaby, Francis Attending Unavailable Slaby, Francis Referring Unavailable Cebul III, Alvin Primary Care Unavailable Slaby, Francis Attending Unavailable Slaby, Francis Referring Unavailable Cebul III, Alvin Primary Care Unavailable Slaby, Francis Consulting Unavailable Slaby, Francis Attending Unavailable Slaby, Francis Referring Unavailable Cebul III, Alvin Primary Care Unavailable Slaby, Francis Consulting Unavailable Slaby, Francis Attending Unavailable Cebul III, Alvin Referring Unavailable Cebul, Nam Attending Unavailable Cebul, Nam Referring Unavailable Cebul III, Alvin Primary Care Unavailable Slaby, Francis Attending Unavailable Cebul III, Alvin Referring Unavailable Cebul III, Alvin Primary Care Unavailable PROBLEMS PROBLEMS DATE TYPE CONDITION / CODE ATTENDING STATUS SOURCE 06/12/2018 Active Acute embolism and NA Active [facility] thrombosis of right Clinic Main femoral vein / [place] I82.411(ICD-10) Repository 12/31/2016 Active Emphysema, NA Active [facility] unspecified / Clinic Main J43.9(ICD-10) [facility] Repository 06/12/2018 Active Other forms of NA Active [facility] dyspnea / Clinic Main R06.09(ICD-10) [facility] Rep[facility] 06/15/2018 Unknown I71.4 - Abdominal Cebul III, Active [facility] aortic aneurysm, [place] without rupture / Hospital I71.4(ICD-10) Repository 06/16/2018 Unknown I74.4 - Embolism and AlvertoNam celestin Active [facility] thrombosis of Community arteries of Hospital extremities, Repository unspecified / I74.4(ICD-10) 04/29/2018 Unknown G89.18 - Other acute Francis Dudley Active [facility] postprocedural pain Community / G89.18(ICD-10) Hospital Repository 03/16/2018 Active FPC (current) NA Active [facility] use of Clinic 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 / [place] Z79.01(ICD-10) Repository 01/16/2018 Active Unknown / CHAN MENON Active [facility] UNK(Unknown) (PA) Clinic Main [place] Repository 01/17/2017 Active Benign prostatic NA Active [facility] hyperplasia with Clinic Main lower urinary tract [facility] symptoms / Repository N40.1(ICD-10) 01/17/2017 Active 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 Clinic Main / N13.8(ICD-10) [facility] Repository 07/13/2015 Active Essential (primary) NA Active [facility] hypertension / Clinic Main I10(ICD-10) [facility] Repository 01/09/2018 Active Other mcc NA Active [facility] (current) drug Clinic Main therapy / [place] Z79.899(ICD-10) Repository 11/20/2017 Unknown Z98.890 - Other AdoresissyNam celestin Active [facility] specified Community postprocedural Hospital states / Repository Z98.890(ICD-10) 11/20/2017 Unknown Z86.79 - Personal AdoresissyNam celestin Active [facility] history of other Community diseases of the Hospital circulatory system / Repository Z86.79(ICD-10) 10/10/2017 Unknown I10 - Essential Concepcion, Luis Active [facility] (primary) Community hypertension / Hospital I10(ICD-10) Repository 09/24/2017 Unknown R09.89 - Other [place]is Nam Active [facility] specified symptoms Community and signs involving Hospital the circulatory and Repository respiratory systems / R09.89(ICD-10) 07/15/2017 Active Abdominal aortic NA Active [facility] aneurysm, without Clinic Main rupture / [place] I71.4(ICD-10) Repository 06/27/2017 Unknown Z01.818 - Encounter Francis Newell Active [facility] for other Community preprocedural Hospital examination / Repository Z01.818(ICD-10) PROCEDURES PROCEDURES No Procedure Records FoundRESULTS RESULTS PROGRESS Observed: 06/17/2018 Status: COMPLETED Source: [place] 5:53 PM [facility] REPOSITORY HNO ID: [id number] Author: Alvin Hughes III Service: (none) Author Type: Physician Type: Progress Notes Filed: 06/17/2018 5:53 PM Note Text: Platelet count is normal. Continue present medications. Alvin Hughes III, MD, FAAFP PROGRESS Observed: 06/17/2018 Status: COMPLETED Source: [place] 5:52 PM [facility] REPOSITORY HNO ID: [id number] Author: Alvin Hughes III Service: (none) Author Type: Physician Type: Progress Notes Filed: 06/17/2018 5:52 PM Note Text: Adrian, You do have a very small amount of fluid in your lung. It seems to be a very small amount that I am not sure how much shortness of breath it is causing year. Continue your present medications. Recheck chest x-ray in 4 months. By then the body will probably have reabsorb the fluid. Perhaps cold air exposure is aggravating your COPD and shortness of breath. Alvin Hughes III, MD, FAAFP CBC Collected: 06/12/2018 Status: F Source: [place] 12:19 PM [facility] REPOSITORY TYPE CODE TESTS RESULT OUT OF REFERENCE UNITS RANGE LAB WBC 3.70-11.00 k/uL WBC 5.71 LAB RBC 4.20-6.00 m/uL RBC 5.28 LAB HGB 13.0-17.0 g/dL Hemoglobin 15.8 LAB HCT 39.0-51.0 % Hematocrit 50.1 LAB MCV 80.0-100.0 fL MCV 94.9 LAB MCH 26.0-34.0 pG MCH 29.9 LAB MCHC 30.5-36.0 g/dL MCHC 31.5 LAB RDWCV 11.5-15.0 % RDW-CV High 15.1 LAB PLTCT 150-400 k/uL Platelet Count 264 LAB MPV 9.0-12.7 fL MPV 10.3 LAB ABSNUC <0.01 k/uL Absolute High nRBC 0.02 Performed By: #### CBC #### [facility] [address] [place], [place] [address] XR CHEST 2V FRONTAL/LAT Observed: 06/12/2018 Status: F Source: [place] 12:08 PM [facility] REPOSITORY * * *Final Report* * * DATE OF EXAM: Jun 12 2018 12:08PM WOX [id number] - XR CHEST 2V FRONTAL/LAT / PROCEDURE REASON: multiple diagnoses * * * * Physician Interpretation * * * * EXAMINATION: CHEST RADIOGRAPH (2 VIEW FRONTAL and LATERAL) CLINICAL HISTORY: CHAU (dyspnea on exertion) Pulmonary emphysema, unspecified emphysema type (HCC) MQ: XC2_5 Comparison: 12/11/2012 RESULT: Small left pleural effusion with adjacent atelectasis and/or infiltrates. No pneumothorax. Stable cardiomediastinal silhouette. No acute osseous findings. Degenerative changes in the thoracic spine. IMPRESSION: Small left pleural effusion with adjacent atelectasis and/or or infiltrates. Continued follow-up to resolution recommended. Fire Prevention Engineer: [email or web address] Transcribe Date/Time: Jun 12 2018 2:09P Dictated by : GERI ANDREA MD This examination was interpreted and the report reviewed and electronically signed by: GERI ANDREA MD on Jun 12 2018 2:14PM EST [id number] PROGRESS Observed: 06/12/2018 Status: COMPLETED Source: [place] 12:00 PM [facility] REPOSITORY HNO ID: [id number] Author: Miguel Pacheco (Rt) Service: (none) Author Type: Food Service Kitchen Supervisor Type: Progress Notes Filed: 06/12/2018 12:09 PM Note Text: Radiology Service Progress Note PATIENT NAME: Vicki Randle DATE OF SERVICE: June 12, 2018 TIME: 12:00 PM PATIENT IDENTITY VERIFICATION COMPLETED USING TWO (2) METHODS: Patient confirmed name verbally and Date of . PATIENT GENDER DATA: Male PATIENT RELEVANT IMPLANT DATA REVIEWED: Not Applicable RADIOLOGY DEPARTMENT: General X-ray: Exam(s) Completed: Chest X-Ray PERIPHERAL IV DATA: Not applicable SIGNED BY: RT Junior June 12, 2018 12:00 PM PROGRESS Observed: 06/12/2018 Status: COMPLETED Source: [place] 11:26 AM [facility] REPOSITORY HNO ID: [id number] Author: Alvin Hughes III Service: (none) Author Type: Physician Type: Progress Notes Filed: 06/12/2018 1:12 PM Note Text: SUBJECTIVE: This is a 72 year old male that is here today for ER Follow Up. 05/22 DVT from R groin to the R ankle. Recurrent. reports reviewed. Pt had previous DVT LLE but he states that he was only on anticoagulant for 1 mo. 2. CHAU for long time--not related to DVT RLE. No chest pain or angina. Tob: 1 ppd since age 14.x 28 yrs. quit in 1987. A little worse now compared with 12/2016. Taking a deep breath doesn't do me any good. CHAU on treadmill--has to stop after 10-15 min. at 2 mph pace PFTs 01/07/17: some small airways disease and mild restrictive lung disease. No benefit from bronchodilators. CT neck =apical lung emphysema nuclear stress test (pharmacologic) 02/04/17: neg. 3. s/p AAA repair 09/09/17. Abd CT 10/2017: good post op result [facility] ?[address] ? [place] [address] ?Test Date: ? ? 2017-01-07 Pat Name: ? ? ?VICKI RANDLE ? Department: ? ? Patient ID: ? ?[id number] ?Room: ? Gender: ?Male ?Food Service Kitchen Supervisor: ? ? : ? 1945 ?Requested By: ? Order Number: ?[id number] ? ? ? Reading MD: ? ?Fadi Madera ?Interpretive Statements ATS acceptability and repeatability standards for spirometry met. 4 puffs of albuterol (360mcg) delivered by MDI via valved holding chamber, ?HR pre 63, HR post 63. Medications and allergies were reviewed for possible drug interactions per policy MM-102. ?No Contraindications or sensitivities were noted. IMPRESSION: Spirometry shows no obstruction. The reduced FVC suggests mild restriction. ? Recommend lung volumes if clinically indicated. There is no significant bronchodilator response. Electronically Signed On 01-10-2017 8:03:11 EDT by Fadi Madera [facility] ? [address] ? [place] [id number] ? PFT Lab Report Name: VICKI RANDLE ?ID: [id number] ? Date: 01/07/17 ?Physician: Melina Roblero ? Age: 71 ? Height(in): 73.0 ? Weight(lb): 251 ? Gender: Male ?Race: ? Diagnosis: ?Medication Set 1: ? Dyspnea Rest: No ?Dyspnea Exercise: No ? Cough: No ? Persistent: No ?Productive (cc): ? Smoker: No ?How Long: ? Stopped: ?Cigarettes: No ? Food Service Kitchen Supervisor: Ciera Muñoz, BAG FILLER MACHINE OPERATOR ?Temp: ?22 ?PBar: 763 ?PF Reference: ######## Spirometry ?Hb: ?gm/dL ?Ref ? Pre ? Pre ? Post ?Post ?Post ?Harsh ?% Ref ? ? ? Harsh ?% Ref ? ? ? % Chg FVC ?Liters ? ? ?4.88 ?3.59 ?74 ?3.90 ?80 ?9 FEV1 ? ? ? Liters ? ? ?3.59 ?2.60 ?73 ?2.66 ?74 ?2 FEV1/FVC ? % ? 73 ?72 ?68 QAM67-13% ?L/sec ? ? ? 2.69 ?1.83 ?68 ?1.39 ?52 ?-24 [id number] L/sec ? ? ?2.75 ?1.83 ?67 ?2.13 ?77 ?16 PEF ?L/sec ? ? ? 8.91 ?7.92 ?89 ?7.22 ?81 ?-9 ZGJ937% ? ?Sec ? 10.23 ? 11.70 ? 14 MVV ?L/min ? ? ? 143 f ?BPM ? Lung Volumes TLC ?Liters ? ? ?7.60 VC ? Liters ? ? ?4.88 IC ? Liters ? ? ?3.25 FRC N2 ? ? Liters ? ? ?4.08 ERV ?Liters ? ? ?1.63 RV ? Liters ? ? ?2.63 RV/TLC ? ? % ? 36 ? Diffusing Capacity DLCO ? ? ? mL/mmHg/min 27.2 DL Adj ? ? mL/mmHg/min 27.2 DLCO/VA ? ?mL/mHg/min/L 3.73 DL/VA Adj ?mL/mHg/min/L 3.73 VA ? Liters ? ? ?7.28 IVC ?Liters BHT ?Sec ? Resistance Raw ?cmH2O/L/sec 1.21 sGaw ? ? ? L/s/cmH2O/L 0.225 ? Respiratory Muscle Force PI max ? ? cmH2O ? ? ? 104 PE max ? ? cmH2O ? ? ? 195 ? [facility] ? ?CARDI[facility]CTION LABORATORY - STRESS TEST SYSTEM REPORT ? * FINAL * ?PHARMACOLOGIC STRESS ECG-NUCLEAR IMAGING NAME: VICKI RANDLE ? CLINIC NBR: [id number] TEST DATE: [id number] AGE: 71, ?OUTPATIENT : [id number] WEIGHT: 113.6kg/249.9lbs, HEIGHT: 185.4cm/73.0inches BMI: 33.0 TEST TYPE: PHARMACOLOGIC STRESS ECG-NUCLEAR IMAGING TEST MODE: PHARMACOLOGIC ?TEST PROTOCOL: REGADENOSON/TREADMILL TEST LOCATION: [place] ?ORDER LOCATION: [facility] REQUESTED BY: ALVIN HUGHES MD SHANK BONER: FADI AC ADMINISTRATIVE ASSOCIATE: JORDAN MEJIA TRAINEE: SUPERVISING PHYSICIAN: DELON WALKER DO READ BY: DELON WALKER DO ? INDICATIONS/SYMPTOMS: ? SHORTNESS OF BREATH. MEDICAL HISTORY/COMORBIDITIES: ? SMOKE: EXSMOKER: => 10 YRS, HYPERTENSION.ABDOMINAL ANEURYSM W/O RUPTURE, COPD, UNSPECIFIED, GERD WITHOUT ESOPHAGITIS OR ESOPHAGEAL REFLUX, OBESITY. PROCEDURES: ? NONE. MEDICATIONS(LAST DOSE): ? NORVASC(24H), HYDROCHLOROTHIAZIDE(24H), ASPIRIN(13H), PROZAC(24H), PRILOSEC(24H), PROSCAR(24H), FLOMAX(13H). RESTING ECG: ? NORMAL SINUS RHYTHM, WNL. OBSERVATION: ? 1. THE TEST WAS TERMINATED DUE TO END OF PROTOCOL. ? 5. NORMAL ST SEGMENT RESPONSE TO STRESS. ? 7. ANGINA WAS NOT PROVOKED BY STRESS. ? 8. NO ARRHYTHMIAS WERE NOTED AT REST OR DURING STRESS. CONCLUSION: ? NORMAL. ADDITIONAL COMMENTS: ? NORMAL LEXISCAN LOW LEVEL EXERCISE STRESS ECG. CLINICALLY NEGATIVE FOR ISCHEMIA. OXYGEN SATURATION 97% DURING LOW LEVEL EXERCISE. NUCLEAR IMAGES OBTAINED; SEE SEPARATE REPORT.. ? TEST MEASUREMENT: --- !STEP!SYS!NHI!RPE!METS!HR !TIME !SPD!GRADE!MM !S!LDS !SYMPTOMS ? ! ! ? ?! ? ! ? ! ? ! ? ?! ? ! ? ? !MPH!PCT ?! ? ! ! ? ?! ? ! --- !Phase: REST ?! --- !1 ? !100!68 ! ? ! ? ?!62 !00:00! ? ! ? ? ! ? ! ! ? ?! ? ! --- !Phase: TEST ? ! --- !1 ? !116!78 ! ? ! ? ?!80 !01:00!1.2!0 ? ?! ? ! ! ? ?! ? ! --- !2 ? !114!76 ! ? ! ? ?!88 !02:00!1.2!0 ? ?! ? ! ! ? ?! ? ! ! ? ?! ? ! ? ! ? ! ? ?! ? ! ? ? ! ? ! ? ? ! ? ! ! ? ?! ? ! !ARRHYTHMIAS: ISOTOPE INJECTION ?! ! ? REGADENOSON INJECTION ?! --- !3 ? ! ? ! ??! ? ! ? ?!92 !03:00!1.2!0 ? ?! ? ! ! ? ?! ? ! --- !4 ? !120!70 ! ? ! ? ?!91 !04:00!1.2!0 ? ?! ? ! ! ? ?! ? ! --- !Phase: RECOVERY ? ! --- !1 ? ! ? ! ? ! ? ! ? ?!82 !01:00! ? ! ? ? ! ? ! ! ? ?! ? ! --- !2 ? !124!80 ! ? ! ? ?!82 !02:00! ? ! ? ? ! ? ! ! ? ?! ? ! --- !3 ? ! ? ! ? ! ? ! ? ?!80 !03:00! ? ! ? ? ! ? ! ! ? ?! ? ! --- !4 ? !126!76 ! ? ! ? ?!76 !04:00! ? ! ? ? ! ? ! ! ???! ? ! --- ECG AND RHYTHM STRIPS WERE REVIEWED AND INTERPRETED BY: DELON AWLKER DO Electronically signed on 02/04/2017 by the reading physicianDENISE WILLIAM DO Electronically signed on 02/04/2017 by the supervising physician, DELON WALKER DO PAST MEDICAL HISTORY Diagnosis Date - AAA (abdominal aortic aneurysm) ([facility]) 02/06/2012 01/10/17: CT abd 4.8 cm - Actinic keratosis - Acute deep vein thrombosis (DVT) of femoral vein of left lower extremity ([facility]) 03/16/2018 02/19/18--on Eliquis - Benign hypertension 07/13/2015 - Bruit right carotid artery - Esophageal reflux Gastroesophageal reflux - Facet arthritis of lumbar region 06/27/2014 - Hypertrophy of prostate without urinary obstruction and other lower urinary tract symptoms (LUTS) Hypertrophy of the prostate w/o obstruction - Left leg DVT (HCC) 02/19/2018 - Mixed hyperlipidemia Hyperlipidemia - Neoplasm [...] 1 Drop in both eyes twice daily. timolol maleate (TIMOPTIC) 0.5 % ophthalmic solution Use 1 Drop in both eyes twice daily. aspirin, enteric coated (ECOTRIN LOW STRENGTH) 81 mg EC tablet Take 1 tablet by mouth once daily. cholecalciferol (VITAMIN D3) 1,000 unit tab tablet Take 1,000 Units by mouth once daily. No current facility-administered [...] - Alcohol use Yes Comment: Seldom BP 100/70 (BP Site: Right Arm, BP Position: Sitting, BP Cuff Size: Large Adult) Pulse 68 Temp 36.2 ?C (97.1 ?F) (Tympanic) Resp 18 Wt 121.6 kg (268 lb) BMI 35.36 kg/m? . OBJECTIVE: APPEARANCE Well appearing, alert, in no acute distress, well-hydrated, well nourished. NECK Supple, no adenopathy; thyroid symmetric, normal size, no bruits HEART RRR with normal S1 and S2, no murmurs, no gallops, no JVD appreciated LUNG clear to auscultation ABDOMEN soft, non-tender, non-distended, without organomegaly or palpable masses, no tenderness to palpation EXTREMITIES no tenderness RLE ASSESSMENT: DVT RLE, subacute COPD/emphysema s/p AAA repair 09/09/17 PLAN: continue eliquis 5mg twice/day x 6 mos same other medications return to office 6 mos for follow up CBC,CXRay JACKSON Gay MD, III MD CNOV Observed: 06/12/2018 Status: COMPLETED Source: [place] 10:40 AM [facility] REPOSITORY Office Visit (FAMPWS) VICKI RANDLE ([id number]) 1945 M Date Time Provider Department 06/12/18 10:40 AM ALVIN HUGHES IIIPSARI During your visit today, we recorded the following information about you: Temperature Pulse Respiration Blood pressure 97.1 degrees 68/minute 18/minute 100/70 Weight 121.6 kg Alvin Hughes III MD 06/12/2018 1:12 PM Signed SUBJECTIVE: This is a 72 year old male that is here today for ER Follow Up. 05/22 DVT from R groin to the R ankle. Recurrent. reports reviewed. Pt had previous DVT LLE but he states that he was only on anticoagulant for 1 mo. 2. CHAU for long time--not related to DVT RLE. No chest pain or angina. Tob: 1 ppd since age 14.x 28 yrs. quit in 1987. A little worse now compared with 12/2016. Taking a deep breath doesn't do me any good. CHAU on treadmill--has to stop after 10-15 min. at 2 mph pace PFTs 01/07/17: some small airways disease and mild restrictive lung disease. No benefit from bronchodilators. CT neck =apical lung emphysema nuclear stress test (pharmacologic) 02/04/17: neg. 3. s/p AAA repair 09/09/17. Abd CT 10/2017: good post op result --------- [facility] ?[address], ? [place] [address] ?Test Date: ? ? 2017-01-07 Pat Name: ? ? ?VICKI RANDLE ? Department: ? ? Patient ID: ? ?[id number] ?Room: ? Gender: ?Male ?Food Service Kitchen Supervisor: ? ? : ? 1945 ?Requested By: ? Order Number: ?[id number] ? ? ? Reading MD: ? ?Fadi Madera ?Interpretive Statements ATS acceptability and repeatability standards for spirometry met. 4 puffs of albuterol (360mcg) delivered by MDI via valved holding chamber, ?HR pre 63, HR post 63. Medications and allergies were reviewed for possible drug interactions per policy MM-102. ?No Contraindications or sensitivities were noted. IMPRESSION: Spirometry shows no obstruction. The reduced FVC suggests mild restriction. ? Recommend lung volumes if clinically indicated. There is no significant bronchodilator response. Electronically Signed On 01-10-2017 8:03:11 EDT by Fadi Healy [facility] ? [address] ? [place], [place] [address] ? PFT Lab Report Name: VICKI RANDLE ?ID: [id number] ? Date: 01/07/17 ?Physician: Melina Roblero ? Age: 71 ? Height(in): 73.0 ? Weight(lb): 251 ? Gender: Male ?Race: ? Diagnosis: ?Medication Set 1: ? Dyspnea Rest: No ?Dyspnea Exercise: No ? Cough: No ? Persistent: No ?Productive (cc): ? Smoker: No ?How Long: ? Stopped: ?Cigarettes: No ? Food Service Kitchen Supervisor: Ciera Muñoz, BAG FILLER MACHINE OPERATOR ?Temp: ?22 ?PBar: 763 ?PF Reference: ######## Spirometry ?Hb: ?gm/dL ?Ref ? Pre ? Pre ? Post ?Post ?Post ?Harsh ?% Ref ? ? ? Harsh ?% Ref ? ? ? % Chg FVC ?Liters ? ? ?4.88 ?3.59 ?74 ?3.90 ?80 ?9 FEV1 ? ? ? Liters ? ? ?3.59 ?2.60 ?73 ?2.66 ?74 ?2 FEV1/FVC ? % ? 73 ?72 ?68 AVP83-66% ?L/sec ? ? ? 2.69 ?1.83 ?68 ?1.39 ?52 ?-24 FnuTUN43-07 L/sec ? ? ?2.75 ?1.83 ?67 ?2.13 ?77 ?16 PEF ?L/sec ? ? ? 8.91 ?7.92 ?89 ?7.22 ?81 ?-9 XXS198% ? ?Sec ? 10.23 ? 11.70 ? 14 MVV ?L/min ? ? ? 143 f ?BPM ? Lung Volumes TLC ?Liters ? ? ?7.60 VC ? Liters ? ? ?4.88 IC ? Liters ? ? ?3.25 FRC N2 ? ? Liters ? ? ?4.08 ERV ?Liters ? ? ?1.63 RV ? Liters ? ? ?2.63 RV/TLC ? ? % ? 36 ? Diffusing Capacity DLCO ? ? ? mL/mmHg/min 27.2 DL Adj ? ? mL/mmHg/min 27.2 DLCO/VA ? ?mL/mHg/min/L 3.73 DL/VA Adj ?mL/mHg/min/L 3.73 VA ? Liters ? ? ?7.28 IVC ?Liters BHT ?Sec ? Resistance Raw ?cmH2O/L/sec 1.21 sGaw ? ? ? L/s/cmH2O/L 0.225 ? Respiratory Muscle Force PI max ? ? cmH2O ? ? ? 104 PE max ? ? cmH2O ? ? ? 195 ? [facility] ? ?CARDIAC FUNCTION LABORATORY - STRESS TEST SYSTEM REPORT ? * FINAL * ?PHARMACOLOGIC STRESS ECG-NUCLEAR IMAGING NAME: VICKI RANDLE ? CLINIC NBR: [id number] TEST DATE: [id number] AGE: 71, ?OUTPATIENT : [id number] WEIGHT: 113.6kg/249.9lbs, HEIGHT: 185.4cm/73.0inches BMI: 33.0 TEST TYPE: PHARMACOLOGIC STRESS ECG-NUCLEAR IMAGING TEST MODE: PHARMACOLOGIC ?TEST PROTOCOL: REGADENOSON/TREADMILL TEST LOCATION: [place] ?ORDER LOCATION: [facility] REQUESTED BY: ALVIN HUGHES MD SHANK BONER: FADI AC ADMINISTRATIVE ASSOCIATE: JORDAN MEJIA TRAINEE: SUPERVISING PHYSICIAN: DELON WALKER DO READ BY: DELON WALKER DO ? INDICATIONS/SYMPTOMS: ? SHORTNESS OF BREATH. MEDICAL HISTORY/COMORBIDITIES: ? SMOKE: EXSMOKER: => 10 YRS, HYPERTENSION.ABDOMINAL ANEURYSM W/O RUPTURE, COPD, UNSPECIFIED, GERD WITHOUT ESOPHAGITIS OR ESOPHAGEAL REFLUX, OBESITY. PROCEDURES: ? NONE. MEDICATIONS(LAST DOSE): ? NORVASC(24H), HYDROCHLOROTHIAZIDE(24H), ASPIRIN(13H), PROZAC(24H), PRILOSEC(24H), PROSCAR(24H), FLOMAX(13H). RESTING ECG: ? NORMAL SINUS RHYTHM, WNL. OBSERVATION: ? 1. THE TEST WAS TERMINATED DUE TO END OF PROTOCOL. ? 5. NORMAL ST SEGMENT RESPONSE TO STRESS. ? 7. ANGINA WAS NOT PROVOKED BY STRESS. ? 8. NO ARRHYTHMIAS WERE NOTED AT REST OR DURING STRESS. CONCLUSION: ? NORMAL. ADDITIONAL COMMENTS: ? NORMAL LEXISCAN LOW LEVEL EXERCISE STRESS ECG. CLINICALLY NEGATIVE FOR ISCHEMIA. OXYGEN SATURATION 97% DURING LOW LEVEL EXERCISE. NUCLEAR IMAGES OBTAINED; SEE SEPARATE REPORT.. ? TEST MEASUREMENT: !STEP!SYS!NHI!RPE!METS!HR !TIME !SPD!GRADE!MM !S!LDS !SYMPTOMS ? ! ! ? ?! ? ! ? ! ? ! ? ?! ? ! ? ? !MPH!PCT ?! ? ! ! ? ?! ? ! !Phase: REST ?! !1 ? !100!68 ! ? ! ? ?!62 !00:00! ? ! ? ? ! ? ! ! ? ?! ? ! !Phase: TEST ? ! !1 ? !116!78 ! ? ! ? ?!80 !01:00!1.2!0 ? ?! ? ! ! ? ?! ? ! !2 ? !114!76 ! ? ! ? ?!88 !02:00!1.2!0 ? ?! ? ! ! ? ?! ? ! ! ? ?! ? ! ? ! ? ! ? ?! ? ! ? ? ! ? ! ? ? ! ? ! ! ? ?! ? ! !ARRHYTHMIAS: ISOTOPE INJECTION ?! ! ? REGADENOSON INJECTION ?! !3 ? ! ? ! ??! ? ! ? ?!92 !03:00!1.2!0 ? ?! ? ! ! ? ?! ? ! !4 ? !120!70 ! ? ! ? ?!91 !04:00!1.2!0 ? ?! ? ! ! ? ?! ? ! !Phase: RECOVERY ? ! !1 ? ! ? ! ? ! ? ! ? ?!82 !01:00! ? ! ? ? ! ? ! ! ? ?! ? ! !2 ? !124!80 ! ? ! ? ?!82 !02:00! ? ! ? ? ! ? ! ! ? ?! ? ! !3 ? ! ? ! ? ! ? ! ? ?!80 !03:00! ? ! ? ? ! ? ! ! ? ?! ? ! !4 ? !126!76 ! ? ! ? ?!76 !04:00! ? ! ? ? ! ? ! ! ???! ? ! ECG AND RHYTHM STRIPS WERE REVIEWED AND INTERPRETED BY: DELON WALKER DO Electronically signed on 02/04/2017 by the reading physicianDENISE WILLIAM DO Electronically signed on 02/04/2017 by the supervising physician, DELON WALKER DO PAST MEDICAL HISTORY Diagnosis Date - AAA (abdominal aortic aneurysm) ([facility]) 02/06/2012 01/10/17: CT abd 4.8 cm - Actinic keratosis - Acute deep vein thrombosis (DVT) of femoral vein of left lower extremity ([facility]) 03/16/2018 02/19/18--on Eliquis - Benign hypertension 07/13/2015 - Bruit right carotid artery - Esophageal reflux Gastroesophageal reflux - Facet arthritis of lumbar region 06/27/2014 - Hypertrophy of prostate without urinary obstruction and other lower urinary tract symptoms (LUTS) Hypertrophy of the prostate w/o obstruction - Left leg DVT ([facility]) 02/19/2018 - Mixed hyperlipidemia Hyperlipidemia - Neoplasm of skin of hand left cheek, upper arm, ear, forearm, nose - Nodule of right lung 04/17/2012 01/08/2013: CT chest 4 mm, unchanging nodule==suspect benign - Other specified disorder of gallbladder 09/07/07 - Personal history of colonic polyps - Personal history of skin cancer - Pulmonary emphysema ([facility]) 12/31/2016 - Sebaceous cyst - Situational depression [...] 1 Drop in both eyes twice daily. timolol maleate (TIMOPTIC) 0.5 % ophthalmic solution Use 1 Drop in both eyes twice daily. aspirin, enteric coated (ECOTRIN LOW STRENGTH) 81 mg EC tablet Take 1 tablet by mouth once daily. cholecalciferol (VITAMIN D3) 1,000 unit tab tablet Take 1,000 Units by mouth once daily. No current facility-administered [...] - Alcohol use Yes Comment: Seldom BP 100/70 (BP Site: Right Arm, BP Position: Sitting, BP Cuff Size: Large Adult) Pulse 68 Temp 36.2 ?C (97.1 ?F) (Tympanic) Resp 18 Wt 121.6 kg (268 lb) BMI 35.36 kg/m? . OBJECTIVE: APPEARANCE Well appearing, alert, in no acute distress, well- hydrated, well nourished. NECK Supple, no adenopathy; thyroid symmetric, normal size, no bruits HEART RRR with normal S1 and S2, no murmurs, no gallops, no JVD appreciated LUNG clear to auscultation ABDOMEN soft, non-tender, non-distended, without organomegaly or palpable masses, no tenderness to palpation EXTREMITIES no tenderness RLE ASSESSMENT: DVT RLE, subacute COPD/emphysema s/p AAA repair 09/09/17 PLAN: continue eliquis 5mg twice/day x 6 mos same other medications return to office 6 mos for follow up CBC,CXRay JACKSON Gay MD, III MD Frank A Cebul, III MD 06/12/2018 11:54 AM Signed PLAN: continue eliquis 5mg twice/day x 6 mos same other medications return to office 6 mos for follow up CBC,CXRay Alvin Hughes III MD Referring Provider: SELF [200] Allergies As of Date: 06/12/2018 Noted Allergy Reaction LIPITOR (ATORVASTATIN CALCIUM) 03/11/2005 5 - Intolerance medical tape [Other] 03/11/2005 9 - Itching ROSUVASTATIN CALCIUM 03/02/2017 5 - Intolerance DFHMNPE-OIO-ACM REDUCTASE INHIBIT*01/10/2018 17 - Myalgia Date Reviewed: 06/12/2018 Reviewed by: Lorne Velasquez LPN - Fully Assessed Reason for Visit: ED Follow-up [821] Cmt: patient was seen [facility] for blood clot right leg Primary Visit Diagnosis:Acute deep vein thrombosis (DVT) of femoral vein of right lower extremity (HCC) [I82.411] Other Visit Diagnoses:CHAU (dyspnea on exertion) [R06.09] Pulmonary emphysema, unspecified emphysema type (HCC) [J43.9] Order(s):ELIQUIS 5 mg tab(s)Take 1 tablet by mouth twice daily.Disp: 30 tabletRfl: 5 CBC [SQCBC] Order #: [id number] FUTURE XR CHEST 2V FRONTAL/LAT [[id number]] Order #: [id number] FUTURE Prescriptions as of 06/12/2018 Sig: ELIQUIS 5 MG TABLET Take 1 tablet by mouth twice * FLUOXETINE 20 MG CAPSULE Take 1 [...] mouth onc* Problem List As Of Date 06/12/2018 Noted Resolved Hyperlipidemia with target LDL less [...] FOR* More... 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] INVALID FOR* Venous insufficiency of both lower [...] FOR* Other instructions from your clinician: PLAN: continue eliquis 5mg twice/day x 6 mos same other medications return to office 6 mos for follow up CBC,CXRay Alvin Hughes III MD Prescriptions ordered this encounter Disp Refills Start End ELIQUIS 5 MG TABLET 30 t* 5 06/12/2018 Class: Print RX Route: ORAL Sig: Take 1 tablet by mouth twice daily. Medications Discontinued During This Encounter ELIQUIS 5 mg tab(s) 05/22/2018 06/12/2018 Class: Historical Med Route: ORAL Sig: Take 5 mg by mouth twice daily. Disc: Reason for discontinue is not on file. Encounter Status:Closed by ALVIN HUGHES III, MD on 06/12/18 CNCO Observed: 06/04/2018 Status: COMPLETED Source: [place] 12:00 AM [facility] REPOSITORY Letter Text n [facility] [address] [address] Vicki Randle [phone] [facility] [address] 06/04/2018 Dear Mr. Randle: I noted on my schedule today that we had an appointment. I am sorry I missed you. I realize that there are many distractions and busy schedules. Please call ahead of time, if you are unable to make it. If this was because of a miscommunication, please ensure that you speak with one of the schedulers over the phone/in person after each appointment (this is the safest way, since we can't guarantee that you will receive your appointments via mail). If you need to cancel, please call us in advance. Thanks for your understanding, and hope to see you again soon. Sincerely, Alvin Hughes MD (Signed electronically to expedite mailing) PLASTIC SURGERY Observed: 06/03/2018 Status: F Source: [place] VISIT REPORT 10:17 PM [facility] REPOSITORY [facility] [address] [place] [address] OFFICE VISIT Date of Service: 06/03/18 MR#: [id number] Acct: [id number] Name: VICKI RANDLE Rep #: [id number] : 1945 Provider: Francis Dudley MD Age/Sex: 72/M [place] [facility] [place] Status: Signed Intake Vital Signs06/03/18 Height 6 ft 1 in 06/03/18 Blood Pressure 108/70 Intake Visit Reasons: postop surgery 04/28/18 Allergies adhesive Adverse Reaction (Verified 05/22/18 13:56) Itching atorvastatin [From Lipitor] Adverse Reaction (Verified 05/22/18 13:56) Other rosuvastatin calcium [From Crestor] Adverse Reaction (Verified 05/22/18 13:56) ACHING Medications Finasteride [Proscar] 5 mg PO DAILY 11/18/13 [History Confirmed 05/22/18] Omeprazole [Prilosec] 20 mg PO DAILY 11/18/13 [History Confirmed 05/22/18] Tamsulosin HCl [Flomax] 0.4 mg PO DAILY 11/18/13 [History Confirmed 05/22/18] Fluoxetine HCl [Prozac] 20 mg PO DAILY 12/27/16 [History Confirmed 05/22/18] brimonidine 0.2 % eye drops 1 drp OPHTHALMIC BID ml 08/05/17 [History Confirmed 05/22/18] timolol maleate 0.5 % eye drops 1 drp OPHTHALMIC BID 08/05/17 [History Confirmed 05/22/18] Carvedilol [Coreg (Beta Junito)] 3.125 mg PO BID #60 tab 09/10/17 [Rx Confirmed 05/22/18] Amlodipine [Norvasc] 10 mg PO QHS 04/21/18 [History Confirmed 05/22/18] imiquimod 5 % topical cream packet 1 applic TOPICAL 5XW #30 ea 05/13/18 [Rx Confirmed 05/22/18] Apixaban [Eliquis] 5 mg PO BID 30 Days tab 05/22/18 [Rx] PFSH Medical History Abdominal aortic aneurysm [...] closure. Comes in today with no complaints. He has started Aldara to the dorsal radial aspect right wrist, proximal nasal dorsum near nasal root, and left cheek lesions. There are also scattered actinic damage on the dorsum left hand and dorsal aspect right forearm that he states he is also using Aldara. These areas are erythematous with some scabbing which is expected while on Aldara. Skin graft on dorsum right hand is healing satisfactory. The donor incision left flank is healing satisfactory. Incision left outer distal arm is healing satisfactory. The flap incisions x 2 left postauricular area (by earlobe and near occipital hairline) are healing satisfactory. The wound dorsal radial aspect right wrist [...] to help soften up the scars. Continue SHIMON wrap to the right hand for compression when active. Followup 2 months for a TBSE after finishing Aldara. Assessment AND Plan Problems 1. 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 Actinic keratosis L57.0 3. Personal history of skin cancer Z85.828 4. 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 Actinic keratosis L57.0 Personal history of skin cancer Z85.828 Former smoker Z87.891 06/03/182216 <Electronically signed by Francis Dudley MD> Date Francis Dudley MD Cosigner Signature: Date (if applicable) CC: VENOUS DUPLEX LOWER Observed: 05/22/2018 Status: F Source: [place] EXTREMITY 5:25 PM [facility] REPOSITORY [facility] [address] [place] [address] Venous Duplex US, Unilateral 05/22/18 1443 MR#: [id number] Acct: [id number] Name: RAZIAVICKI Rep #: [id number] : 1945 72 From: Nam Hughes MD Attending Dr: Status: DEP ER Ordering Dr: Mookie Rivero MD Date: 05/22/18 Location: ED Sex: M C Admitted: Reason For Study: Swelling RLE RIGHT LEFT FV is compressible, spontaneous, phasic, CFV is compressible, spontaneous, phasic, competent and demonstrates normal competent, and demonstrates normal augmentation. augmentation. POP V is compressible, spontaneous, phasic, competent and demonstrates normal augmentation. T/P Trunk is compressible. RT PerV is compressible. Rt CFV is partially compressible consistent with acute DVT, Thrombus is extending from the Rt GSV into the Common Femoral Vein and appears very UNSTABLE Rt PTV is dilated and non compressible consistent with acute DVT Rt GSV is dilated and non compressible consistent with acute SVT Rt GastrocV is partially compressible with bright intraluminal echeos consistent with chronic DVT. Procedure Exam performed portable in ED. A preliminary report was called and/or faxed to Dr. Rivero. Interpretation Summary Acute deep venous thrombosis right common femoral with thrombus extending from the right great saphenous vein into the common femoral vein. This appears very unstable Acute deep venous thrombosis right posterior tibial vein. 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 Superficial thrombophlebitis right great saphenous vein Normal flow patterns left common femoral vein Ordering Physician: Mookie Rivero Referring Physician: Alvin Hughes Performed By: Fadumo Vyas, NANETTE, RVT 05/22/18 1724 Date Nam Hughes MD CC: Alvin Hughes III, MD; Mookie Rivero MD Date Dictated: 05/22/18 1443 Date Transcribed: 05/22/18 1724 Fire Prevention Engineer: Signed EMERGENCY DEPARTMENT Observed: 05/22/2018 Status: F Source: [place] SUMMARY 4:46 PM [facility] REPOSITORY [facility] Medical Records Department [address] [place] [address] Emergency Department Summary 05/22/18 1416 MR#: [id number] Acct: [id number] Name: VICKI RANDLE Rep #: [id number] : 1945 72 From: Mookie Rivero MD PCP: Alvin Hughes III, MD Status: DEP ER - ER Visit Summary Date of Service: 05/22/18 Chief Complaint: Right upper leg pain and swelling History of Present Illness: The patient is a 72 M history of hypertension and prior left leg DVT he states 1-2 months ago. He was on a blood thinner but says he is now off. Patient states that for the last several days has had some swelling and discomfort to his right medial thigh. Denies any injury or trauma. He believes he has another DVT. He denies any chest pain or shortness of breath. No hemoptysis. Physical Examination: Well-appearing older male. Vital signs are stable. He is afebrile. His pulse ox is 95% on room air no hypoxia. H EENT exam unremarkable. Neck nontender no lymphadenopathy. Lungs clear to auscultation bilaterally. Heart regular rhythm rate about 80 no murmur. Abdomen soft, nontender, nondistended, normal bowel sounds and no peritoneal signs. Patient is moving all 4 extremities. Neurovascular intact. His right medial thigh and hamstring area is tender palpation. Mild swelling. Calves are nontender. Feet are neurovascularly intact. Neurologically is awake and alert with no focal motor deficits. Test Results: Noninvasive venous study of his right lower extremity shows extensive DVT starting proximal and his right common femoral artery and going distally well below his knee. Involving multiple veins. Emergency Department Course and Treatment: To the patient's diagnosis of acute right lower extremity DVT he will be started back on Eliquis. 10 mg twice daily for the first 7 days. Then 5 mg twice daily after that. I will have a discussion with the patient he only took 30 days of anticoagulation when he was diagnosed and set number. I do not know if he did not follow-up for exactly what happened. He will need to follow- up with his primary care physician and most likely be on anticoagulation for at least 6 months. He has been on Eliquis before and he did well with that. Treatment Plan: Eliquis twice daily. Follow-up with his primary care physician for further evaluation and extension of anticoagulation. Disposition: Discharge Impression: Right leg pain and swelling secondary to extensive right lower extremity DVT This note was generated with [employer] dictation software. It may contain incorrect words, spelling, and punctuation that were not noted in review of the chart prior to signing ED Disposition - Plan for ED Patient: Chief Complaint: Lower Extremity Injury Referrals: Alvin Hughes III, MD [Primary Care Provider] - What to do if you have Problems For any increased pain, shortness of breath, bleeding, nausea or vomiting, chest pain, or any unexpected problems, contact your Primary Care Provider. Call [facility] ([phone]) or report to the closest Emergency Room. Call 911 if necessary. 05/22/18 1646 <Electronically signed by Mookie Rivero MD> Date Mookie Rivero MD Cosigner Signature (If Indicated): Date CC: Alvin Hughes III, MD DISCHARGE INSTRUCTION Observed: 05/22/2018 Status: F Source: [place] 4:46 PM [facility] REPOSITORY [facility] Medical Records Department [address] [place] [address] Discharge Instruction 05/22/18 1538 MR#: [id number] Acct: [id number] Name: VICKI RANDLE Rep #: [id number] : 1945 72 From: Mookie Rivero MD PCP: Alvin Hughes III, MD Status: [facility] ER ED Disposition - Plan for ED Patient: Disposition: Home or Assisted Living Chief Complaint: Lower Extremity Injury Instructions: ED DVT Prescriptions: Apixaban [Eliquis] 5 mg PO BID 30 Days tab Referrals: Alvin Hughes III, MD [Primary Care Provider] - Additional Instructions: You have an extensive blood clot in your right leg from the groin all the way down to around her ankle. He will be started on the blood thinner again Eliquis. For the first 7 days she will take 10 mg twice a day. On day 8 he will decrease the dose to 5 mg twice a day. You will need to follow-up with your primary care physician. Typically when people have blood clots they will stay on anticoagulation for 6 months. If you have any rectal bleeding you need to return. If you hit your head while on blood thinners you need to be seen in the emergency department to be evaluated. What to do if you have Problems For any increased pain, shortness of breath, bleeding, nausea or vomiting, chest pain, or any unexpected problems, contact your Primary Care Provider. Call [facility] ([phone]) or report to the closest Emergency Room. Call 911 if necessary. 05/22/18 7870 <Electronically signed by Mookie Rivero MD> Date Mookie Rivero MD Cosigner Signature (If Indicated): Date CC: Alvin Hughes III, MD PROTEIN C DEFIC. Collected: 05/22/2018 Status: F Source: [place] PROFILE 4:08 PM [facility] REPOSITORY TYPE CODE TESTS RESULT OUT OF RANGE REFERENCE UNITS LAB L3100.7310 60-150 % Normal PROTEIN C 83 Performed By: #### L3100.7275, L3100.7325, L3100.8410, L3300.0450, L3410.2000, L4500.2000, L4500.5000 #### [facility] (refer to report for specific site) refer to report for address and phone number PROTEIN C, FUNCTIONAL Collected: 05/22/2018 Status: F Source: [place] 4:08 PM [facility] REPOSITORY TYPE CODE TESTS RESULT OUT OF RANGE REFERENCE UNITS LAB L3100.7325 73-180 % Normal PROT C, 109 Funct Performed By: #### L3100.7275, L3100.7325, L3100.8410, L3300.0450, L3410.2000, L4500.2000, L4500.5000 #### [facility] (refer to report for specific site) refer to report for address and phone number ANTICARDIOLIPIN IGG, IGM Collected: 05/22/2018 Status: F Source: [place] 4:08 PM [facility] REPOSITORY TYPE CODE TESTS RESULT OUT OF RANGE REFERENCE UNITS LAB L3100.8420 0-14 GPL U/mL Normal ANTICARDIO IgG 13 Result Comment: Negative: <15 Indeterminate: 15 - 20 Low-Med Positive: >20 - 80 High Positive: >80 LAB L3100.8425 0-12 MPL U/mL Normal ANTICARDIO IgM < 9 Result Comment: Negative: <13 Indeterminate: 13 - 20 Low-Med Positive: >20 - 80 High Positive: >80 Performed By: #### L3100.7275, L3100.7325, L3100.8410, L3300.0450, L3410.2000, L4500.2000, L4500.5000 #### [facility] (refer to report for specific site) refer to report for address and phone number AT III FUNC / Collected: 05/22/2018 Status: F Source: [place] IMMUNOL 4:08 PM [facility] REPOSITORY TYPE CODE TESTS RESULT OUT OF RANGE REFERENCE UNITS LAB L3300.0500 75-135 % Normal AT3 FUNCTION 99 Result Comment: Direct Xa inhibitor anticoagulants such as rivaroxaban, apixaban and edoxaban will lead to spuriously elevated antithrombin activity levels possibly masking a deficiency. LAB L3300.0540 72-124 % Normal AT3 AG, IMMUNOL 93 Result Comment: This test was developed and its performance characteristics determined by [facility]. It has not been cleared or approved by the Food and Drug Administration. Performed By: #### L3100.7275, L3100.7325, L3100.8410, L3300.0450, L3410.2000, L4500.2000, L4500.5000 #### [facility] (refer to report for specific site) refer to report for address and phone number BETA-2 GLYCOPROT IGG, Collected: 05/22/2018 Status: F Source: [place] 4:08 PM [facility] REPOSITORY TYPE CODE TESTS RESULT OUT OF RANGE REFERENCE UNITS LAB L3410.2100 0-20 Normal B2 GLYCO <9 I IGG Result Comment: Result Units: GPI IgG units The reference interval reflects a 3SD or 99th percentile interval, which is thought to represent a potentially clinically significant result in accordance with the International Consensus Statement on the classification criteria for definitive antiphospholipid syndrome (APS). J Thromb Haem 2006;4:295-306. LAB L3410.2200 0-25 Normal B2 GLYCO I IGA <9 Result Comment: Result Units: GPI IgA units The reference interval reflects a 3SD or 99th percentile interval, which is thought to represent a potentially clinically significant result in accordance with the International Consensus Statement on the classification criteria for definitive antiphospholipid syndrome (APS). J Thromb Haem 2006;4:295-306. LAB L3410.2300 0-32 Normal B2 GLYCO I IGM <9 Result Comment: Result Units: GPI IgM units The reference interval reflects a 3SD or 99th percentile interval, which is thought to represent a potentially clinically significant result in accordance with the International Consensus Statement on the classification criteria for definitive antiphospholipid syndrome (APS). J Thromb Haem 2006;4:295-306. Performed By: #### L3100.7275, L3100.7325, L3100.8410, L3300.0450, L3410.2000, L4500.2000, L4500.5000 #### [facility] (refer to report for specific site) refer to report for address and phone number FACTOR II, DNA Collected: 05/22/2018 Status: F Source: [place] ABDULLAHI 4:08 PM [facility] REPOSITORY TYPE CODE TESTS RESULT OUT OF RANGE REFERENCE UNITS LAB L4500.2100 . Normal FACTOR Comment II,DNA Result Comment: NEGATIVE No mutation identified. Comment: A point mutation ([id number]) in the factor II (prothrombin) gene is the second most common cause of inherited thrombophilia. The incidence of this mutation in the [place] population is about 2% and in the population it is approximately 0.5%. This mutation is rare in the and population. Being heterozygous for a prothrombin mutation increases the risk for developing venous thrombosis about 2 to 3 times above the general population risk. Being homozygous for the prothrombin gene mutation increases the relative risk for venous thrombosis further, although it is not yet known how much further the risk is increased. In women heterozygous for the prothrombin gene mutation, the use of estrogen containing oral contraceptives increases the relative risk of venous thrombosis about 16 times and the risk of developing cerebral thrombosis is also significantly increased. In the prothrombin gene mutation increases risk for venous thrombosis and may increase risk for stillbirth, placental abruption, pre-eclampsia and growth restriction. If the patient possesses two or more congenital or acquired thrombophilic risk factors, the risk for thrombosis may rise to more than the sum of the risk ratios for the individual mutations. This assay detects only the prothrombin F45936T mutation and does not measure genetic abnormalities elsewhere in the genome. Other thrombotic risk factors may be pursued through systematic clinical laboratory analysis. These factors include the R506Q (Leiden) mutation in the Factor V gene, plasma homocysteine levels, as well as testing for deficiencies of antithrombin III, protein C and protein S. Genetic Counselors are available for health care providers to discuss results at [phone] ([phone]). Methodology: DNA analysis of the Factor II gene was performed by PCR amplification followed by restriction analysis. The diagnostic sensitivity is >99% for both. All the tests must be combined with clinical information for the most accurate interpretation. Molecular-based testing is highly accurate, but as in any laboratory test, diagnostic errors may occur. This test was developed and its performance characteristics determined by [employer]. It has not been cleared or approved by the Food and Drug Administration. Cynthiat SR, et al. Blood. 1996; 88:6496-7757. Gopi EA. Circulation. 2004; 110:e15-e18. Arden I, et al. Arterioscler Thromb Vasc Biol. 1999; 19:700-703. Rosio Bhatti, PhD, FACMG Norma Villegas, PhD, FACMG Yaneth Alfredo MCherieS., PhD, FACMG Lani Auguste, PhD, FACMG Rose Marie Solitario, PhD, FACMG Gabriel Ram, PhD, FACMG Performed at: [address] [id number] [place]: Layton Boyd MD, Phone: [phone] Performed at: [address] [id number] [place]: Mark Oropeza PhD, Phone: [phone] Performed at: [facility] [address] [place], [place] [id number] [place]: Shira Berger MD, Phone: [phone] Performed By: #### L3100.7225, L3100.5626, L3100.3310, L3300.0450, L3410.2000, L4500.2000, L4500.5000 #### [facility] (refer to report for specific site) refer to report for address and phone number FACT V LEIDEN Collected: 05/22/2018 Status: F Source: [place] MUTATION 4:08 PM [facility] REPOSITORY TYPE CODE TESTS RESULT OUT OF RANGE REFERENCE UNITS LAB L4500.5100 . Normal FACTOR V Comment LEIDEN Result Comment: Result: Negative (no mutation found) Factor V Leiden is a specific mutation (R506Q) in the factor V gene that is associated with an increased risk of venous thrombosis. Factor V Leiden is more resistant to inactivation by activated protein C. As a result, factor V persists in the circulation leading to a mild hyper- coagulable state. The Leiden mutation accounts for 90% - 95% of APC resistance. Factor V Leiden has been reported in patients with deep vein thrombosis, pulmonary embolus, central retinal vein occlusion, cerebral sinus thrombosis and hepatic vein thrombosis. Other risk factors to be considered in the workup for venous thrombosis include the N36175R mutation in the factor II (prothrombin) gene, protein S and C deficiency, and antithrombin deficiencies. Anticardiolipin antibody and lupus anticoagulant analysis may be appropriate for certain patients, as well as homocysteine levels. Contact your local [facility] for information on how to order additional testing if desired. Genetic counselors are available for health care providers to discuss results at [phone] ([phone]). Methodology: DNA analysis of the Factor V gene was performed by allele- specific PCR. The diagnostic sensitivity and specificity is >99% for both. Molecular-based testing is highly accurate, but as in any laboratory test, diagnostic errors may occur. All test results must be combined with clinical information for the most accurate interpretation. This test was developed and its performance characteristics determined by [facility]. It has not been cleared or approved by the Food and Drug Administration. References: Margie Weston (1996). Clin Lab Med 16:169-186. Rosio Bhatti, PhD, FACMG Norma Villegas, PhD, FAC Yaneth Alfredo M.S., PhD, FACMG Lani Auguste, PhD, FACMG Rose Marie Solitario, PhD, FACMG Gabriel Ram PhD, FAC Performed By: #### L3100.7275, L3100.7325, L3100.8410, L3300.0450, L3410.2000, L4500.2000, L4500.5000 #### [facility] (refer to report for specific site) refer to report for address and phone number ABD AORTIC/IVC DUPLEX Observed: 05/18/2018 Status: F Source: [place] SCAN 2:40 PM [facility] REPOSITORY [facility] Cardiovascular Services [address] [place] [address] Abd Aortic/IVC Duplex scan 05/18/18 0919 MR#: [id number] Acct: [id number] Name: VICKI RANDLE Rep #: [id number] : 1945 72 From: Nam Hughes MD Attending Dr: Nam Hughes MD Status: REG CLI Ordering Dr: Nam Hughes MD Date: 05/18/18 Location: CVS Sex: M C Admitted: Reason [...] Aorta IVC Iliac vasculature or bypass grafts 43427. Technically difficult due to body habitus and bowel gas. Exam performed in department. Interpretation Summary Maximal aortic aneurysm sac dimensions 4.01 x 4.41cm Mid aorta suggests AP diameter of 4.5cm Stent graft in place with normal flow Left common iliac 1.2cm Right common iliac 1.1cm Ordering Physician: Nam Hughes Referring Physician: Alvin Hughes Performed By: Lorena Mario RVT 05/18/18 1439 Date Nam Hughes MD CC: Alvin Hughes III, MD; Nam Hughes MD Date Dictated: 05/18/18918 Date Transcribed: 05/18/181438 Fire Prevention Engineer: Signed SURGERY VISIT REPORT Observed: 05/18/2018 Status: F Source: [place] 2:34 PM [facility] REPOSITORY [facility] [address] [place], [place] [address]. [address] [place] [address] OFFICE VISIT Date of Service: 05/18/18 MR#: [id number] Acct: [id number] Name: VICKI RANDLE Rep #: [id number] : 1945 Provider: Nam Hughes MD Age/Sex: 72/M Location: BMS.WSA Status: Signed Intake Vital Signs05/18/18 Body Mass Index (BMI) 35.2 Intake Visit Reasons: F/U U/S AAA 05/13/2018 Chief Complaint: AAA repair Package Yarns Drying Machine Operator Required: No Is patient in pain?: No [...] the right common femoral artery was a Denio excluder 26 x 14.5 x 12. The contralateral limb was a 20 x 14 sequeira bottom. An additional extension was placed on the right being a 20 x 12 similar sequeira bottom device. At the time of surgery is noted to have persistent flow in his inferior mesenteric artery and in the lumbar. Close follow-up was felt to be pertinent. At the [facility] on November 20, 2017 he had a CTA of the abdomen. Preoperatively his infrarenal abdominal aortic aneurysm was felt to be 4.8 cm. On the most recent examination the [place] sac has a measurement of 4.6 cm. The stent graft appears to be in good position. 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 Very minimal blush is seen within the [place] sac. Of additional note is the patient [...] as simple as a walking program. CC: JACKSON Littlejohn M.D., F.A.C.S. Orders Orders: Coding Level of Care Code Off vis,est,level 2 Diagnoses Abdominal aortic aneurysm (AAA) without rupture I71.4 Presence of rupture: without rupture 05/18/18 1434 <Electronically signed by Nam Hughes MD> Date Nam Hughes MD Cosign Signature: Date (if applicable) CC: Alvin Hughes III, MD PLASTIC SURGERY Observed: 05/18/2018 Status: F Source: [place] VISIT REPORT 2:11 PM [facility] REPOSITORY [facility] [address] [place] [address] OFFICE VISIT Date of Service: 05/11/18 MR#: [id number] Acct: [id number] Name: VICKI RANDLE Rep #: [id number] : 1945 Provider: CYNTHIA Nicolas Age/Sex: 72/M Location: [facility] Status: Signed Intake Vital Signs05/11/18 Body Mass Index (BMI) 35.2 05/11/18 Blood Pressure 123/74 H 05/11/18 Blood Pressure Location Lt brachial 05/11/18 Blood Pressure Position Sitting 05/11/18 Respiratory Rate 18 Intake Visit Reasons: post op surgery 04/28/18 Package Yarns Drying Machine Operator Required: No Accompanied by: None Is patient [...] Z87.891 05/18/18 1411 <Electronically signed by Alba E Fidencio FELT HAT POUNCING OPERATOR HAND-C> Date Alba Brian Nicolas FELT HAT POUNCING OPERATOR HAND-C 05/16/181910<Electronically signed by Francis Dduley MD> Cosigner Signature: Date (if applicable) Francis Dudley MD CC: AAA SCREENING Observed: 05/13/2018 Status: F Source: [place] 5:01 PM [facility] REPOSITORY [facility] Cardiovascular Services [address] [place] [address] AAA Screening 05/13/18 0839 MR#: [id number] Acct: [id number] Name: VICKI RANDLE Rep #: [id number] : 1945 72 From: Nam Hughes MD Attending Dr: Nam Hughes MD Status: REG CLI Ordering Dr: Nam Hughes MD Date: 05/13/18 Location: [facility] Sex: M C Admitted: Reason For Study: [...] Aorta IVC Iliac vasculature or bypass grafts 40577. Exam performed in department. Interpretation Summary Maximal aortic dimensions proximally 1.86 x 1.88cm Normal flow velocity Left common iliac 1.65 x 1.63cm Right common iliac 1.44 x 1.46cm Ordering Physician: Nam Hughes Referring Physician: JACKSON Hughes M.D. Performed By: Otto FITZPATRICK, Nohemy ALEXIS and Student 05/13/181700 Date Nam Hughes MD CC: Alvin Hughes III, MD; Nam Hughes MD Date Dictated: 05/13/18 0839 Date Transcribed: 05/13/181700 Fire Prevention Engineer: Signed OPERATIVE REPORT Observed: 05/07/2018 Status: F Source: [place] 12:06 PM [facility] REPOSITORY [facility] Medical Records Department [address] [place] [address] Operative Report 04/28/182109 MR#: [id number] Acct: [id number] Name: VICKI RANDLE Rep #: [id number] : 1945 72 From: Francis Dudley MD PCP: Alvin Hughes III, MD Status: [facility] Location: [place] Report of Operation Date of Procedure: 04/28/18 [...] were included in a form from the [employer]. 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 Frozen section left postauricular area by earlobe - actinic keratosis with moderate atypia. Frozen section left postauricular area near occipital hairline - actinic keratosis with moderate atypia. Size of skin graft dorsum right hand by index finger - 4.1 x 4.1 cm. hand paster: Wanda Borjas. hand paster: Den Boyd. Type of Anesthesia:: Local MAC [...] No Code Visit Surgery Charges CPT - 18660 ICD-10 - C44.622, Z85.828, Z87.891 03005 C44.622, Z85.828, Z87.891 05069 L57.0, Z85.828, Z87.891 66933 L57.0, Z85.828, Z87.891 95854 D49.2, Z85.828, Z87.891 26689 D49.2, Z85.828, Z87.891 05236 D49.2, Z85.828, Z87.891 05/07/18 1206 <Electronically signed by Francis Dudley MD> Date Francis Dudley MD CC: Alvin Hughes III, MD; Francis Dudley MD Signed PLASTIC SURGERY Observed: 05/06/2018 Status: F Source: [place] VISIT REPORT 10:01 PM [facility] REPOSITORY [facility] [address] [place] [address] OFFICE VISIT Date of Service: 05/04/18 MR#: [id number] Acct: [id number] Name: VICKI RANDLE Rep #: [id number] : 1945 Provider: Francis Dudley MD Age/Sex: 72/M Location: [facility] Status: Signed Intake Vital Signs05/04/18 Body Mass Index (BMI) 35.2 05/04/18 Blood Pressure 116/72 05/04/18 Blood Pressure Location Lt brachial 05/04/18 Blood Pressure Position Sitting 05/04/18 Respiratory Rate 18 Intake Visit Reasons: postop surgery 04/28/18 Package Yarns Drying Machine Operator Required: No Accompanied by: None Is patient [...] Actinic keratosis L57.0 05/06/182200 <Electronically signed by Francis Dudley MD> Date Francis Dudley MD Cosigner Signature: Date (if applicable) CC: HISTORY AND PHYSICAL Observed: 04/29/2018 Status: F Source: [place] EXAM 11:00 PM [facility] REPOSITORY [facility] Medical Records Department [address] [place] [address] History and Physical 04/27/18 2321 MR#: [id number] Acct: [id number] Name: VICKI RANDLE Rep #: [id number] : 1945 72 From: Francis Dudley MD PCP: Otis PAZ MD,Alvin Status: DEP [place] Y Location: [place] History and Physical Date of Admission: 04/28/18 [...] were included in a form from the [employer]. 04/29/18 2300 <Electronically signed by Francis Dudley MD> Date Francis Dudley MD Cosigner Signature: Date (if applicable) CC: Alvin Hughes III, MD; Francis Dudley MD Signed DISCHARGE INSTRUCTION Observed: 04/28/2018 Status: F Source: [place] 11:25 AM [facility] REPOSITORY [facility] Medical Records Department [address] [place] [address] Instructions for Home/Discharge Instructions 04/28/18 1120 MR#: [id number] Acct: [id number] Name: VICKI RANDLE Rep #: [id number] : 1945 72 From: Francis Dudley MD PCP: Alvin Hughes III, MD Status: REG [place] You will use the following diet at [...] appointment, if applicable. Please Follow Up With: Francis Dudley MD When: friday05/04/18. call [phone] for appt. Proposed Discharge Date: 04/28/18 04/28/18 1125 <Electronically signed by Francis Dudley MD> Date Francis Dudley MD CC: Alvin Hughes III, MD LESION (CHOOSE SITE) Observed: 04/28/2018 Status: F Source: [place] 12:00 AM [facility] REPOSITORY Patient: VICKI RANDLE : 1945 (72/M) Acct Num: [id number] Phys: Francis Dudley MD Unit Num: [id number] Loc: [place] Specimen: [id number] Received: 04/28/18900 Spec Type: Lesion TISSUES 1 [...] Actinic keratosis with mild to moderate atypia. SJ:rg 04/28/18 Case has been reviewed in consultation [...] one cassette. / SJ:rg 04/28/18 TC:0 CPT: 98264 x8, 72466 x3 HEADER OPERATION: Excision lesion dorsum right [...] of specimen C. SJ:nguyễn 04/29/18 Signed Lambert Quachin 04/29/18 <signature on file> Performed By: #### PLES #### [facility] [address] [place], [address] CBC Collected: 03/16/2018 Status: F Source: [place] 3:43 PM [facility] REPOSITORY TYPE CODE TESTS RESULT OUT OF [...] nRBC <0.01 Performed By: #### CBC #### [facility] [address] [place], [place] [address] PROGRESS Observed: 03/16/2018 Status: COMPLETED Source: [place] 2:54 PM [facility] REPOSITORY HNO ID: [id number] Author: Alvin Hughes III Service: (none) Author [...] reflux - Facet arthritis of lumbar region ([facility]) 06/27/2014 - Hypertrophy of prostate without urinary obstruction and other lower urinary tract symptoms (LUTS) Hypertrophy of the prostate w/o obstruction - Left leg DVT ([facility]) 02/19/2018 - Mixed hyperlipidemia Hyperlipidemia - Neoplasm of skin of hand left cheek, upper arm, ear, forearm, nose - Nodule of right lung 04/17/2012 01/08/2013: CT chest 4 mm, unchanging nodule==suspect benign - Other specified disorder of gallbladder 09/07/07 - Personal history of colonic polyps - Personal history of skin cancer - Pulmonary emphysema ([facility]) 12/31/2016 - Sebaceous cyst - Situational depression [...] MD PROGRESS Observed: 03/16/2018 Status: COMPLETED Source: [place] 2:49 PM [facility] REPOSITORY HNO ID: [id number] Author: Sera Omalley) DADA Lee Service: (none) Author Type: Mushroom Laborer Type: Progress Notes Filed: 03/16/2018 5:49 PM Note Text: 72 year old male here for INACTIVATED INFLUENZA VACCINE. 0660-4753 Season Patient is identified by name and date of : Yes [] CONTRAINDICATIONS color enhanced section Age less than 6 months? No Allergy to eggs, chicken, chicken feathers, or chicken dander? No Allergy to thimerosal (a preservative) or formaldehyde, gelatin? No History of severe reaction to any vaccine component or a previous dose of influenza vaccination? No History of Guillain-[place] Syndrome within 6 weeks after a previous [...] sheet given? Yes See immunization activity in [facility] for details of immunizations adminstered today. Patient age: [age] year old For The 0265-2862 Flu Season 6-35 months old: Fluzone 0.25 [...] a second dose in one months time. VIOLA Observed: 03/16/2018 Status: COMPLETED Source: CHIP 2:40 PM [facility] REPOSITORY Office Visit (FAMPWS) VICKI RANDLE ([id number]) 1945 M Date Time Provider Department 03/16/18 2:40 PM ALVIN HUGHES III FAMPWS During your visit today, we recorded the following information about you: Pulse Respiration Blood pressure Weight 78/minute 16/minute 102/64 120.7 kg Height 1.854 m Sera Lee CMA, MA 03/16/2018 5:49 PM Signed 72 year old male here for INACTIVATED INFLUENZA VACCINE. Season Patient is identified by name and date of : Yes [] CONTRAINDICATIONS color enhanced section Age less than 6 months? No Allergy to eggs, chicken, chicken feathers, or chicken dander? No Allergy to thimerosal (a preservative) or formaldehyde, gelatin? No History of severe reaction to any vaccine component or a previous dose of influenza vaccination? No History of Guillain-[place] Syndrome within 6 weeks after a previous [...] sheet given? Yes See immunization activity in [facility] for details of immunizations adminstered today. Patient age: [age] year old For The 1509-8696 Flu Season 6-35 months old: Fluzone 0.25 [...] Diagnosis Date - AAA (abdominal aortic aneurysm) ([facility]) 02/06/2012 01/10/17: CT abd 4.8 cm - Actinic keratosis - Benign hypertension 07/13/2015 - Bruit right carotid artery - Esophageal reflux Gastroesophageal reflux - Facet arthritis of lumbar region ([facility]) 06/27/2014 - Hypertrophy of prostate without urinary obstruction and other lower urinary tract symptoms (LUTS) Hypertrophy of the prostate w/o obstruction - Left leg DVT ([facility]) 02/19/2018 - Mixed hyperlipidemia Hyperlipidemia - Neoplasm of skin of hand left cheek, upper arm, ear, forearm, nose - Nodule of right lung 04/17/2012 01/08/2013: CT chest 4 mm, unchanging nodule==suspect benign - Other specified disorder of gallbladder 09/07/07 - Personal history of colonic polyps - Personal history of skin cancer - Pulmonary emphysema ([facility]) 12/31/2016 - Sebaceous cyst - Situational depression [...] Itching ROSUVASTATIN CALCIUM 03/02/2017 5 - Intolerance HIMCNLX-JTW-QRZ REDUCTASE INHIBIT*01/10/2018 17 - Myalgia Date Reviewed: 03/16/2018 Reviewed by: [facility]era [facility]) DADA Lee - Fully Assessed Reason for [...] [E78.5] Order(s):INFLUENZA SEASONAL HIGH DOSE AGE 65+ [93387KDC] Order #: [id number] CBC [SQCBC] Order #: [id number] FUTURE LIPID PANEL BASIC [SQLIPB] Order #: [id number] FUTURE Prescriptions as of 03/16/2018 Sig: FINASTERIDE [...] EMERGENCY DEPARTMENT Observed: 02/20/2018 Status: F Source: [place] SUMMARY 12:51 AM [facility] Medical Records Department [address] [place] [address] Emergency Department Summary 02/19/182110 MR#: [id number] Acct: [id number] Name: VICKI RANDLE Rep #: [id number] : 1945 72 From: Vicki Bull MD [...] of anticoagulation This note was generated with [employer] dictation software. It may contain incorrect words, [...] your Primary Care Provider. Call [facility] ([phone]) or report to the closest Emergency Room. Call 911 if necessary. 02/20/18 0051 <Electronically signed by Vicki Bull MD> Date Vicki Bull MD Cosigner Signature (If Indicated): Date CC: Alvin Hughes III, MD VENOUS DUPLEX Observed: 02/19/2018 Status: F Source: [place] IMAG/DANO EXTREM 7:31 PM [facility] REPOSITORY [facility] Imaging Services [address] [address] Venous Duplex Imag/Dano Extrem MR#: [id number] Acct: [id number] Name: VICKI RANDLE Rep #: [id number] : 1945 M 72 From: Mookie Macario MD PCP: Alvin Hughes III, MD Status: REG ER Study: Venous Duplex Imag/Dano Extrem Date of Exam: 02/19/18 Exam# [id number] Ordering Dr: Vicki Bull MD STUDY: VENOUS [...] CC: Alvin Hughes III, MD; Vicki Bull Fire Prevention Engineer: Signed PLASTIC SURGERY Observed: 01/25/2018 Status: F Source: [place] VISIT REPORT 7:46 PM [facility] REPOSITORY [facility] [address] [facility] [address] [place] [address] OFFICE VISIT Date of Service: 01/07/18 MR#: [id number] Acct: [id number] Name: VICKI RANDLE Rep #: [id number] : 1945 Provider: Francis Dudley MD Age/Sex: 72/M Location[place] [facility] Status: Signed Intake Vital Signs01/07/18 Weight: 261 lb 4 oz 01/07/18 Blood Pressure 105/67 01/07/18 Blood Pressure Location Lt brachial 01/07/18 Blood Pressure Position Sitting 01/07/18 Respiratory Rate 18 Intake Visit Reasons: evaluation for TBSE Package Yarns Drying Machine Operator Required: No Accompanied by: None Is patient [...] BID #60 tab 09/10/17 [Rx Confirmed 12/26/17] PFSH Medical History Abdominal aortic aneurysm (AAA) [...] On the dorsum left hand by first klein was a lesion that has been treated [...] were included in a form from the [employer]. Assessment AND Plan [...] smoker Z87.891 01/25/18 1946 <Electronically signed by Francis Dudley MD> Date Francis Dudley MD Cosigner Signature: Date (if applicable) CC: Alvin Hughes III, MD PROGRESS Observed: 01/16/2018 Status: COMPLETED Source: [place] 9:40 AM [facility] REPOSITORY [facility] ID: [id number] Author: Chan Menon (Pa) Service: (none) Author Type: Physician Desktop Publishing Specialist Type: Progress Notes Filed: 01/26/2018 4:00 PM Note Text: [facility] CC: BPH Follow-Up HPI Vicki Randle is [...] [Atorvastatin Calcium]; Medical Tape [Other]; Rosuvastatin Calcium; Hrklnuk-Evh-Mns Reductase Inhibitors CURRENT MEDICATIONS: Current Outpatient Prescriptions: [...] signed CNOV Observed: 01/16/2018 Status: COMPLETED Source: [place] 9:00 AM [facility] REPOSITORY Office Visit (UROLWS) VICKI RANDLE ([id number]) 1945 M Date Time Provider Department 01/16/18 9:00 AM CHAN MENON) UROLWS During your visit today, we recorded the following information about you: Pulse Blood pressure Weight 64/minute 124/60 118.4 kg OLIVER Parnell 01/26/2018 4:00 PM Signed [facility] CC: BPH Follow-Up HPI Vicki Randle is [...] [Atorvastatin Calcium]; Medical Tape [Other]; Rosuvastatin Calcium; Sxnfeca-Syw-Yri Reductase Inhibitors CURRENT MEDICATIONS: Current Outpatient Prescriptions: [...] Lab prior to visit LORE Spangler [place], MEHDI Electronically signed Referring Provider: SELF [200] Allergies As of Date: 01/16/2018 Noted Allergy Reaction LIPITOR (ATORVASTATIN CALCIUM) 03/11/2005 5 - Intolerance medical tape [Other] 03/11/2005 9 - Itching ROSUVASTATIN CALCIUM 03/02/2017 5 - Intolerance TABDGUE-IYM-OAG REDUCTASE INHIBIT*01/10/2018 17 - Myalgia Date Reviewed: 01/16/2018 Reviewed by: Ashley Rendon Ma - Fully Assessed Reason for Visit: Follow Up [171] BPH with LUTS [Other] Primary Visit Diagnosis:BPH with obstruction/lower urinary tract symptoms [N40.1, N13.8] Order(s):UA DIP, URINE (POC) [5436434] Order #: [id number]. #:[id number] PSA/PROSTSPECAG DIAG [SQPSA] Order #: [id number] FUTURE Prescriptions as of 01/16/2018 Sig: FINASTERIDE [...] 01/26/18 PROGRESS Observed: 01/10/2018 Status: COMPLETED Source: [place] 1:25 PM [facility] REPOSITORY HNO ID: [id number] Author: Alvin Hughes III Service: (none) Author Type: Physician Type: Progress Notes Filed: 01/10/2018 1:25 PM Note Text: The bad LDL cholesterol is out of control but the patient cannot tolerate statin medication. I recommend a low-fat diet and exercise as able. Alvin Hughes III, MD, FAAFP PROGRESS Observed: 01/09/2018 Status: COMPLETED Source: [place] 6:16 PM [facility] REPOSITORY HNO ID: [id number] Author: Berta Chow (Pa) Service: (none) Author Type: Physician Desktop Publishing Specialist Type: Progress Notes Filed: 01/09/2018 6:22 PM Note Text: FOLLOW UP VISIT - ENDOSCOPY NAME: Vicki Randle [facility] NO.: [id number] DATE OF SERVICE: 01/06/2018 : 1945 REFERRING [...] with more than 50% of the total uusk-bl-pooo time of the visit in counseling / coordination of care. Berta Chow PA-C LIPID PANEL, BASIC Collected: 01/09/2018 Status: F Source: [place] 10:59 AM [facility] REPOSITORY TYPE CODE TESTS [...] Desk Reference: National Heart, Lung, and Blood [place]. National Institutes of Health. 2001: NIH Publication No. 01-3305. 2. An International Atherosclerosis Society position paper: global recommendations for the management of dyslipidemia: executive summary, Atherosclerosis. 2014: 232(2):410-413. Performed By: #### LIPB #### [facility] [address] [place], [place] [address] COMP METABOLIC PANEL Collected: 01/09/2018 Status: F Source: [place] 10:58 AM [facility] REPOSITORY TYPE CODE TESTS RESULT [...] mg/dL Glucose High 100 Result Comment: The Japanese Diabetes Association (ADA) provides guidance for cutoff [...] Standards of Medical Care in Diabetes 2016, Japanese Diabetes Association. Diabetes Care. 2016.39(Suppl 1). LAB [...] GFR. Performed By: #### CMP, PSA #### [facility] [address] [place], [place] [address] PSA, DIAGNOSTIC Collected: 01/09/2018 Status: F Source: [place] 10:58 AM [facility] REPOSITORY TYPE CODE TESTS RESULT OUT OF REFERENCE UNITS RANGE LAB PSA 0.00-2.59 ng/mL PSA, Diagnostic 1.80 Result Comment: Total PSA test methodology used is the Electrochemiluminescence Immunoassay. Performed By: #### CMP, PSA #### [facility] [address] [place], [place] [address] PROGRESS Observed: 01/09/2018 Status: COMPLETED Source: [place] 10:31 AM [facility] REPOSITORY HNO ID: [id number] Author: Alvin Hughes III Service: (none) Author [...] MD CNOV Observed: 01/09/2018 Status: COMPLETED Source: [place] 10:20 AM [facility] REPOSITORY Office Visit (FAMPWS) VICKI RANDLE ([id number]) 1945 M Date Time Provider Department 01/09/18 10:20 AM ALVIN HUGHES IIIPWS During your visit today, we recorded the [...] III MD Referring Provider: ALVIN HUGHES III [[id number]] Allergies As of Date: 01/09/2018 Noted Allergy Reaction LIPITOR (ATORVASTATIN CALCIUM) 03/11/2005 5 - Intolerance medical tape [Other] 03/11/2005 9 - Itching ROSUVASTATIN CALCIUM 03/02/2017 5 - Intolerance Date Reviewed: 01/09/2018 Reviewed by: Sera ([facility]) DADA Lee - Fully Assessed Primary Visit Diagnosis:Hyperlipidemia, unspecified hyperlipidemia type [E78.5] Other Visit Diagnoses:Abdominal aortic aneurysm (AAA) without rupture (HCC) [I71.4] Benign hypertension [I10] Pulmonary emphysema, unspecified emphysema type (HCC) [J43.9] Order(s):COMP METABOLIC PANEL [SQCMP] Order #: [id number] FUTURE Prescriptions as of 01/09/2018 Sig: FINASTERIDE [...] 01/09/18 CNOV Observed: 01/06/2018 Status: COMPLETED Source: [place] 1:00 PM [facility] REPOSITORY Office Visit (GENSWS) VICKI RANDLE ([id number]) 1945 M Date Time Provider Department 01/06/18 1:00 PM BERTA CHOW (PA) GENMARNIE During your visit today, we recorded the following information about you: Berta Chow PA-C 01/06/2018 1:25 PM Signed The following instructions are important for you related to your office visit today with the [facility]. INSTRUCTIONS FOLLOWING A POLYP [...] you should contact our office immediately @ [phone] and ask to be transferred to the General Surgery department. Berta Chow PA-C 01/09/2018 6:22 PM Signed FOLLOW UP VISIT - ENDOSCOPY NAME: Vicki Randle CLINIC NO.: [id number] DATE OF SERVICE: 01/06/2018 : 1945 REFERRING [...] with more than 50% of the total jqwi-sd-ijxc time of the visit in counseling / coordination of care. Berta Chow PA-C Referring Provider: ALVIN HUGHES III [[id number]] Allergies As of Date: 01/06/2018 Noted Allergy [...] to your office visit today with the [facility]. INSTRUCTIONS FOLLOWING A POLYP [...] you should contact our office immediately @ [phone] and ask to be transferred to the General Surgery department. Follow-up and Disposition History Recorded Encounter Status:Closed by BERTA CHOW PA-C on 01/09/18 PROGRESS Observed: 12/30/2017 Status: COMPLETED Source: [place] 8:58 PM [facility] REPOSITORY HNO ID: [id number] Author: Andres De Oliveira Service: (none) Author Type: Physician Type: Progress Notes Filed: 12/30/2017 9:02 PM Note Text: OPERATIVE NOTATION FOR [facility] SURGICAL PROCEDURE. December 29, 2017 Vicki Randle 1945 [id number] male PROCEDURE: COLONOSCOPY WITH SNARE POLYPECTOMY- 49696-420 SURGEON: Stephanie De Oliveira M.D. FACS ADMINISTRATIVE ASSOCIATE: None DEPT: WQ PROVIDER: [id number] De Oliveira MD POS: [id number] DIAGNOSIS: (D12.5) Polyp of sigmoid colon, unspecified type (primary encounter diagnosis) ASA CLASS: 3 - Severe FINDINGS: polyp at 20cm COMPLICATIONS: None PMHx - PAST MEDICAL HISTORY Diagnosis Date - AAA (abdominal aortic aneurysm) ([facility]) 02/06/2012 01/10/17: CT abd 4.8 cm - Benign hypertension 07/13/2015 - Bruit right carotid artery - Esophageal reflux Gastroesophageal reflux - Facet arthritis of lumbar region ([facility]) 06/27/2014 - Hypertrophy of prostate without urinary obstruction and other lower urinary tract symptoms (LUTS) Hypertrophy of the prostate w/o obstruction - Mixed hyperlipidemia Hyperlipidemia - Nodule of right lung 04/17/2012 - Other specified disorder of gallbladder 09/07/07 - Personal history of colonic polyps - Pulmonary emphysema ([facility]) 12/31/2016 - Sebaceous cyst - Situational depression 07/03/2016 - Skin cancer Non-melanoma. - Squamous cell carcinoma 04/04/2015 See scanned documents - Venous insufficiency of both lower extremities 07/01/2014 COMORBIDITIES - COPD and HTN Post Op Occurrences - None Wound Classification - Clean Contaminated Operative note dictated in the [facility] dictation system. Andres De Oliveira MD OPERATIVE REPORT Observed: 12/29/2017 Status: F Source: [place] 5:54 PM [facility] REPOSITORY [facility] Medical Records Department [address] [place] [address] Operative Report 12/29/17 1346 MR#: [id number] Acct: [id number] Name: VICKI RANDLE Rep #: [id number] : 1945 72 From: Andres De Oliveira MD PCP: Alvin Hughes III, MD Status: DEP [place] Location: EN Report of Operation Date [...] condition. the patient's follow-up with my physician's wet process miller head assistant Berta Chow in one week for pathology results. 12/29/171753 <Electronically signed by Andres De Oliveira MD> Date Andres De Oliveira MD CC: Alvin Hughes III, MD; Andres De Oliveira MD Signed COLON BIOPSY (CHOOSE Observed: 12/29/2017 Status: F Source: [place] SITE) 1:15 PM [facility] REPOSITORY Patient: VICKI RANDLE : 1945 (72/M) Acct Num: [id number] Phys: Andres De Oliveira MD Unit Num: [id number] Loc: EN Specimen: [id number] Received: 12/29/17 - 1420 Spec Type: COLON BX TISSUES TISSUES: COLON BIOPSY GROSS DESCRIPTION Received in fixative is one container labeled with the patient's name and designated 20 cm polyp. The specimen consists of a piece of barkley-pink polyp measuring 0.7 x 0.5 x 0.5 cm. The entire specimen is submitted in one cassette. / SJ:nguyễn 12/30/17 TC:1 CPT: 47557 HEADER OPERATION: Colonoscopy (MAC) PRE-OP DIAGNOSIS: Screening TISSUE SUBMITTED: 20 cm polyp MICROSCOPIC DESCRIPTION Slides are reviewed. MICROSCOPIC DIAGNOSIS Colon, 20 cm polyp, polypectomy: Tubular adenoma. SJ:nguyễn 12/31/17 Signed Lambert Jain 12/31/17 <signature on file> Performed By: #### PCOLBX #### [facility] [address] [place], [address] HISTORY AND PHYSICAL Observed: 12/29/2017 Status: F Source: [place] EXAM 11:54 AM [facility] REPOSITORY [facility] Medical Records Department [address] [place] [address] History and Physical 12/29/17 1154 MR#: [id number] Acct: [id number] Name: VICKI RANDLE Rep #: [id number] : 1945 72 From: Andres De Oliveira MD PCP: Alvin Hughes III, MD Status: REG [place] Location: [place] [address] History and Physical Date of Admission: 12/29/17 [...] HISTORY Diagnosis Date AAA (abdominal aortic aneurysm) ([facility]) 02/06/201212/31: CT abd 4.8 cm Benign hypertension 07/13/2015 Bruit right carotid artery Eso phageal reflux Gastroesophageal reflux Facet arthritis of lumbar region ([facility]) 06/27/2014 Hypertrophy of prostate without urinary obstruction and other lower urinary tract symptoms (LUTS) Hypertrophy of the prostate w/o obstruction Mixed hyperlipidemia Hyperlipid emia Nodule of right lung 04/17/2012 Other specified disorder of gallbladder 09/07/07 Pe rsonal history of colonic polyps Pulmonary emphysema ([facility]) 12/31/2016 Sebaceous cyst Situational depression 07/03/2016 Skin cancer Non-melanoma. Squamous cell carcinoma 1 06/04/2014 See scanned documentsVenous insufficiency of both lower extremities 07/01/2014 PAST SURGICAL HISTORY PAST SURGICAL HISTORY Procedure Laterality Date COLONOSCOP W/ OR W/O BRSH SPEC 08/17/07 INT REPAIR SCALP,JAYCOB,TRUNK 7.6-12.5CM 02/24/07 back LAP CHOLECYSTECT/CHOLANGIOGRAPHY 09/07/07MRI 02/22/2014 [facility] - mri - right knee PAST SURGICAL HISTORY OF N/A Abdominal aneurysm aortic repair REM LESION TRUNK,ARM,LEG > 4.0CM 02/24/07 b ack REM LESION TRUNK,ARM,LEG > 4.0CM REMV THIGH/KNEE TUMOR,SUBCUTANEOUS REMOVE D FATTY TUMORS FROM UNDER REMV THIGH/KNEE TUMOR,SUBCUTANEOUS RMOVED FATTY TUMORE S URGERY (GENERAL SURGERY)CONSULT 04/25/2015 Invasive squamous cell carcincoma [...] Occupational History 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 December 29, 2017 Vicki Randle 1945 [id number] male PROCEDURE: COLONOSCOPY WITH SNARE POLYPECTOMY- 93307-128 SURGEON: Stephanie De Oliveira M.D. FACS ADMINISTRATIVE ASSOCIATE: None DEPT: WQ PROVIDER: [id number] De Oliveira MD POS: [id number] DIAGNOSIS: (D12.5) Polyp of sigmoid colon, unspecified type (primary encounter diagnosis) ASA CLASS: 3 - Severe FINDINGS: polyp at 20cm COMPLICATIONS: None PMHx - PAST MEDICAL HISTORY Diagnosis Date - AAA (abdominal aortic aneurysm) ([facility]) 02/06/2012 01/10/17: CT abd 4.8 cm - Benign hypertension 07/13/2015 - Bruit right carotid artery - Esophageal reflux Gastroesophageal reflux - Facet arthritis of lumbar region ([facility]) 06/27/2014 - Hypertrophy of prostate without urinary obstruction and other lower urinary tract symptoms (LUTS) Hypertrophy of the prostate w/o obstruction - Mixed hyperlipidemia Hyperlipidemia - Nodule of right lung 04/17/2012 - Other specified disorder of gallbladder 09/07/07 - Personal history of colonic polyps - Pulmonary emphysema ([facility]) 12/31/2016 - Sebaceous cyst - Situational depression 07/03/2016 - Skin cancer Non-melanoma. - Squamous cell carcinoma 04/04/2015 See scanned documents - Venous insufficiency of both lower extremities 07/01/2014 COMORBIDITIES - COPD and HTN Post Op Occurrences - None Wound Classification - Clean Contaminated Operative note dictated in the [facility] dictation system. Andres De Oliveira MD Encounter Status:Closed by ANDRES DE OLIVEIRA MD on 12/30/17 CNPTOUTREACH Observed: 12/23/2017 Status: COMPLETED Source: [place] 12:00 AM [facility] REPOSITORY Patient Outreach (FAMPST) VICKI RANDLE ([id number]) 1945 M Date Time Provider Department 12/23/17 ALVIN HUGHES III During your visit today, we recorded the following information about you: Allergies As of Date: 12/23/2017 Noted Allergy Reaction LIPITOR (ATORVASTATIN CALCIUM) 03/11/2005 5 - Intolerance medical tape [Other] 03/11/2005 9 - Itching ROSUVASTATIN CALCIUM 03/02/2017 5 - Intolerance Date Reviewed: 11/28/2017 Reviewed by: Berta Durán) - Fully Assessed Visit Diagnosis:Medication management [Z79.899] Order(s):BASIC METABOLIC PNL [SQBMP] Order #: [id number] FUTURE LIPID PANEL BASIC [SQLIPB] Order #: [id number] FUTURE Prescriptions as of 12/23/2017 Sig: FINASTERIDE [...] essential [I10] INVALID FOR* Encounter Status:Closed by ALESSIO, PRODUSER on 03/13/18 PROGRESS Observed: 11/28/2017 Status: COMPLETED Source: [place] 1:43 PM [facility] [place] REPOSITORY HNO ID: [id number] Author: Berta Chow (Pa) Service: (none) Author Type: Physician Desktop Publishing Specialist Type: Progress Notes Filed: 11/28/2017 2:57 PM [...] - LAP CHOLECYSTECT/CHOLANGIOGRAPHY 09/07/07 - MRI 02/22/2014 [facility] - mri - right knee - [...] 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 Social History Main Topics Smoking status: [...] MEHDI Ryder Observed: 11/28/2017 Status: COMPLETED Source: [place] 1:30 PM [facility] REPOSITORY Office Visit (GENSWS) VICKI RANDLE ([id number]) 1945 M Date Time Provider Department 11/28/17 1:30 PM BERTA CHOW) [place] During your visit today, we recorded the [...] reflux - Facet arthritis of lumbar region ([facility]) 06/27/2014 - Hypertrophy of prostate without urinary obstruction and other lower urinary tract symptoms (LUTS) Hypertrophy of the prostate w/o obstruction - Mixed hyperlipidemia Hyperlipidemia - Nodule of right lung 04/17/2012 - Other specified disorder of gallbladder 09/07/07 - Personal history of colonic polyps - Pulmonary emphysema ([facility]) 12/31/2016 - Sebaceous cyst - Situational depression 07/03/2016 - Skin cancer Non-melanoma. 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 [place] [address] OFFICE VISIT Date of Service: 11/26/17 MR#: [id number] Acct: [id number] Name: VICKI RANDLE Rep #: [id number] : 1945 Provider: Nam Hughes MD Age/Sex: 72/M Location: [facility] Status: Signed Intake Vital Signs11/26/17 Blood Pressure 143/86 11/26/17 Blood Pressure Location Lt brachial 11/26/17 Blood Pressure Position Sitting Intake Visit Reasons: F/U CT 11/20 Results/AAA Graft stent 09/09/17 Chief Complaint: AAA repair Package Yarns Drying Machine Operator Required: No Is patient in pain?: No [...] 09/10/17 [Rx Confirmed 11/26/17] Hydrocodone Bitart/Apap 5-325 [[place] 5/325] 1 - 2 tab PO Q4H [...] the right common femoral artery was a Denio excluder 26 x 14.5 x 12. The contralateral limb was a 20 x 14 sequeira bottom. An additional extension was placed on the right being a 20 x 12 similar sequeira bottom device. At the time of surgery is noted to have persistent flow in his inferior mesenteric artery and in the lumbar. Close follow-up was felt to be pertinent. At the [facility] on November 20, 2017 he had a CTA of the abdomen. Preoperatively his infrarenal abdominal aortic aneurysm was felt to be 4.8 cm. On the most recent examination the [place] sac has a measurement of 4.6 cm. The stent graft appears to be in good position. 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 Very minimal blush is seen within the [place] sac. Of additional note is the patient [...] do not appear to be affecting the [place] aneurysmal sac size. I recommended the patient [...] that he is working with Dr. Alvin Hughes III regarding this issue Nam Hughes M.D., F.A.C.S. Cc: Dr. Alvin Hughes III Orders Orders: Coding Level of Care Code Off vis,est,level 2 Diagnoses Abdominal aortic aneurysm (AAA) without rupture I71.4 Presence of rupture: without rupture 11/26/17 1317 <Electronically signed by Nam Hughes MD> Date Nam Hughes MD Cosigner Signature: Date (if applicable) CC: Alvin Hughes III, MD CREATININE FINGERSTICK Collected: 11/20/2017 Status: F Source: [place] 1:18 PM [facility] REPOSITORY TYPE CODE TESTS RESULT OUT OF RANGE REFERENCE UNITS LAB L9100.0210 0.70-1.30 mg/dL Normal CREATININE WB 0.9 LAB L9100.0220 >60 mL/min EGFR WB Normal > 60.0000 Performed By: #### L9100.0200 #### [facility] Point of Care [address] [place] [address] PROGRESS Observed: 11/20/2017 Status: COMPLETED Source: [place] 10:39 AM [facility] REPOSITORY O ID: [id number] Author: Laura Thomas LPN Service: (none) Author [...] LPN CNNURSE Observed: 11/20/2017 Status: COMPLETED Source: [place] 10:30 AM [facility] REPOSITORY Nurse Visit (ALIAPWS) VICKI RANDLE ([id number]) 1945 M Date Time Provider Department 11/20/17 10:30 AM [place] NURSE ALIAPWS During your visit today, we recorded the [...] Thomas LPN Referring Provider: ALVIN HUGHES III [[id number]] Allergies As of Date: 11/20/2017 Noted Allergy [...] AM [facility] REPOSITORY [facility] Imaging Services [address] [place] [address] CTA Abdomen W/WO Contrast MR#: [id number] Acct: [id number] Name: VICKI RANDLE Rep #: [id number] : 1945 72 From: Andres Jay MD PCP: Alvin Hughes III, MD Status: REG CLI Study: CTA Abdomen W/WO Contrast Date of Exam: 11/20/17 Exam# [id number] Ordering Dr: Nam Hughes MD STUDY: CTA [...] There is no hyperdense thrombus within the [place] aneurysm sac. The [place] sac has a maximum diameter of 4.6 cm, fusiform shape with a length of 6.4 cm. There is evidence of very tiny type II endoleak involving inferior mesenteric artery, and involving a lumbar artery, very minimal blush of contrast within the k[place] sac. CT/CTA Abdomen W/WO Contrast IMPRESSION: Appropriate positioning of the aortoiliac stent. Minimal type II endoleak's. Small left subpulmonic effusion with left lung base atelectasis. Electronically Signed: Andres Jay, at 8:38 EDT Tel , Service support , CC: Alvin Hughes III, MD; Nam Hughes MD Fire Prevention Engineer: Signed CNNURSE Observed: 11/07/2017 Status: COMPLETED Source: [place] 10:00 AM [facility] REPOSITORY Nurse Visit (FAMPWS) VICKI RANDLE ([id number]) 1945 M Date Time Provider Department 11/07/17 10:00 AM [facility] your visit today, we recorded the following information about you: Pulse Blood pressure 72/minute 100/72 Arlet Bland LPN 11/07/2017 9:58 AM Signed Manual Readin/72 Pulse: [...] Bland LPN Referring Provider: ALVIN HUGHES III [[id number]] Allergies As of Date: 11/07/2017 Noted Allergy [...] 11/07/17 PROGRESS Observed: 11/07/2017 Status: COMPLETED Source: [place] 9:52 AM [facility] REPOSITORY HNO ID: [id number] Author: Arlet Bland LPN Service: (none) Author [...] LPN PROGRESS Observed: 10/21/2017 Status: COMPLETED Source: [place] 10:24 AM [facility] REPOSITORY HNO ID: [id number] Author: Arlet Bland LPN Service: (none) Author [...] LPN CNNURSE Observed: 10/21/2017 Status: COMPLETED Source: [place] 10:15 AM [facility] REPOSITORY Nurse Visit (FAMPWS) VICKI RANDLE ([id number]) 1945 M Date Time Provider Department 10/21/17 10:15 AM [facility] During your visit today, we recorded the [...] Bland LPN Referring Provider: ALVIN HUGHES III [[id number]] Allergies As of Date: 10/21/2017 Noted Allergy [...] 10/21/17 PROGRESS Observed: 10/01/2017 Status: COMPLETED Source: [place] 1:23 PM [facility] [place] REPOSITORY HNO ID: [id number] Author: Alvin Hughes III Service: (none) Author [...] Diagnosis Date - AAA (abdominal aortic aneurysm) ([facility]) 02/06/2012 01/10/17: CT abd 4.8 cm - Benign hypertension 07/13/2015 - Bruit right carotid artery - Esophageal reflux Gastroesophageal reflux - Facet arthritis of lumbar region ([facility]) 06/27/2014 - Hypertrophy of prostate without urinary obstruction and other lower urinary tract symptoms (LUTS) Hypertrophy of the prostate w/o obstruction - Mixed hyperlipidemia Hyperlipidemia - Nodule of right lung 04/17/2012 - Other specified disorder of gallbladder 09/07/07 - Personal history of colonic polyps - Pulmonary emphysema ([facility]) 12/31/2016 - Sebaceous cyst - Situational depression [...] MD CNOV Observed: 10/01/2017 Status: COMPLETED Source: [place] 1:20 PM [facility] REPOSITORY Office Visit (FAMPWS) VICKI RANDLE ([id number]) 1945 M Date Time Provider Department 10/01/17 1:20 PM ALVIN HUGHES IIIPSARI During your visit today, we recorded the [...] Diagnosis Date - AAA (abdominal aortic aneurysm) ([facility]) 02/06/2012 01/10/17: CT abd 4.8 cm - Benign hypertension 07/13/2015 - Bruit right carotid artery - Esophageal reflux Gastroesophageal reflux - Facet arthritis of lumbar region ([facility]) 06/27/2014 - Hypertrophy of prostate without urinary obstruction and other lower urinary tract symptoms (LUTS) Hypertrophy of the prostate w/o obstruction - Mixed hyperlipidemia Hyperlipidemia - Nodule of right lung 04/17/2012 - Other specified disorder of gallbladder 09/07/07 - Personal history of colonic polyps - Pulmonary emphysema ([facility]) 12/31/2016 - Sebaceous cyst - Situational depression [...] III MD Referring Provider: ALVIN HUGHES III [[id number]] Allergies As of Date: 10/01/2017 Noted Allergy [...] VISIT REPORT Observed: 09/22/2017 Status: F Source: [place] 4:05 PM [facility] REPOSITORY [facility] [address] [place] [address] [address] [place] [address] OFFICE VISIT Date of Service: 09/22/17 MR#: [id number] Acct: [id number] Name: VICKI RANDLE Rep #: [id number] : 1945 Provider: Nam Hughes MD Age/Sex: 72/M Location: [facility] Status: Signed Intake Vital Signs09/22/17 Blood Pressure 112/69 09/22/17 Blood Pressure Location Rt brachial 09/22/17 Blood Pressure Position Sitting Intake Visit Reasons: F/U AAA GRAFT STENT 09/09/2017 Chief Complaint: AAA repair Package Yarns Drying Machine Operator Required: No Is patient in pain?: No [...] 09/10/17 [Rx Confirmed 09/22/17] Hydrocodone Bitart/Apap 5-325 [[place] 5/325] 1 - 2 tab PO Q4H PRN PRN 3 Days #10 tab 09/10/17 [Rx Confirmed 09/22/17] PFSH Medical History Abdominal aortic aneurysm (AAA) [...] right common femoral artery and was a Denio excluder 26 x 14.5 x 12 cm. [...] Observed: 09/10/2017 Status: F Source: [place] 8:58 [facility] REPOSITORY [facility] Medical Records Department [address] [place] [address] Instructions for Home/Discharge Instructions 09/10/17 0854 MR#: [id number] Acct: [id number] Name: VICKI RANDLE Rep #: [id number] : 1945 72 From: Berta Barker PA-C PCP: Otis PAZ MD,Alvin Status: ADM IN Discharge Diet: Light diet [...] BID #60 tab 09/10/17 Hydrocodone Bitart/Apap 5-325 [[place] 5/325] 1 - 2 tablet PO Q4H PRN PRN 3 Days #10 tablet 09/10/17 The following prescriptions were given: Hydrocodone Bitart/Apap 5-325 [[place] 5/325] 1 - 2 tablet PO Q4H PRN PRN 3 Days #10 tablet PRN Reason: Pain Amlodipine [Norvasc] 10 mg PO DAILY #30 tab Carvedilol [Coreg (Beta Junito)] 3.125 mg PO BID #60 tab Primary Care Physician: Alvin Hughes III, MD [Primary Care Provider] - Please Follow Up With: Nam Hughes MD - [phone] When: 10 days Proposed Discharge Date: 09/10/17 09/10/17 0858 <Electronically signed by Berta Barker PA-C> Date Berta Barker PA-C CC: Gurjit Ohara MD; Alvin Hughes III, MD OPERATIVE REPORT Observed: 09/10/2017 Status: F Source: CULLMAN 5:53 AM [facility] REPOSITORY [facility] Medical Records Department [address] [place] [address] [place] [address] Operative Report 09/09/17 0658 MR#: [id number] Acct: [id number] Name: VICKI RANDLE Rep #: [id number] : 1945 72 From: Nam Hughes MD [...] singlewall needle. Seldinger wire technique performed. A Mozambican short sheath dilator was inserted. Then 4 separate Perclose devices were placed over an 035 J-wire. These were performed at 2:00 8:00 positions and 10:00 4:00 positions. Having secured those then used the J-wire placed a pigtail catheter into the abdominal aorta proximal to the aneurysm then placed on Anplats wires bilaterally placed a 12 Mozambican sheath on the left and a 16 Mozambican sheath on the right. The main body 26 x 14.5 x 12 cm Denio excluder device was placed via the right common femoral. Reference number is [id number]. Serial #[id number]. An additional device is used where extension devices. Reference number [facility] [id number]. Serial #[id number]. The additional device was reference number PLC [id number]. Serial #[id number]. A pigtail catheter with marking slots were placed from the left groin. Using Isovue contrast a AP aortogram was obtained with 12 of cc angulation. Bilateral renal arteries are identified. The main body device was then deployed via the right common femoral groin. Good positioning was achieved. The contralateral 12 Mozambican sheath was then withdrawn and using a 5 Mozambican Kumpe catheter to 035 angled Glidewire access [...] after the placement of the original 8 Mozambican sheaths that the patient received 12,000 units [...] Lymph 1.39 Performed By: #### L100.0100 #### [facility] [address] [place], [place], [address] BASIC METABOLIC Collected: 09/10/2017 Status: F Source: CULLMAN PROFILE ([facility]) 4:00 AM [facility] [...] GAP 7 Performed By: #### L500.2500 #### [facility] [address] [place], [address] ACT ACTIVATED CLOTTING Collected: 09/09/2017 Status: F Source: GIL TIME 9:12 AM [facility] REPOSITORY TYPE CODE TESTS RESULT OUT OF RANGE REFERENCE UNITS LAB L9100.0100 74-137 sec High ACTk CLOT 246 TIME Performed By: #### L9100.0100 #### [facility] Point of Care [address] [place] [address] ACT ACTIVATED CLOTTING Collected: 09/09/2017 Status: F Source: GIL TIME 8:50 AM [facility] REPOSITORY TYPE CODE TESTS RESULT OUT OF RANGE REFERENCE UNITS LAB L9100.0100 74-137 sec High ACTk CLOT 230 TIME Performed By: #### L9100.0100 #### [facility] Point of Care [address] [place] [address] ACT ACTIVATED CLOTTING Collected: 09/09/2017 Status: F Source: GIL TIME 6:55 AM [facility] REPOSITORY TYPE CODE TESTS RESULT OUT OF RANGE REFERENCE UNITS LAB L9100.0100 74-137 sec Normal ACTk CLOT 131 TIME Performed By: #### L9100.0100 #### [facility] Point of Care [address] [place] [address] 12 LEAD ELECTROCARDIOGRAM Observed: 09/05/2017 Status: F Source: GIL 12:49 PM [facility] REPOSITORY [facility] Cardiovascular Services [address] [place] [address] EKG - SD 09/02/17 0852 MR#: [id number] Acct: [id number] Name: VICKI RANDLE Rep #: [id number] : 1945 72 From: Luis Javier MD [...] ECG Confirmed by LUIS JAVIER MD ([id number]), map editor YANETH WRIGHT ([id number]) on 09/05/2017 12:49:13 PM Referred By: Nam Hughes Confirmed By:LUIS JAVIER MD 09/05/17 1249 Date Luis Javier MD CC: Alvin Hughes III, MD; Nam Hughes MD Date Dictated: 09/02/1752 Date Transcribed: 09/02/17 08 Fire Prevention Engineer: Signed CBC-COMPLETE BLOOD CNT Collected: 09/02/2017 Status: [...] MPV 9.1 Performed By: #### L100.0500 #### [facility] [address] [place], [address] PROTHROMBIN TIME W/INR Collected: 09/02/2017 Status: F Source: CULLMAN 9:50 AM [facility] REPOSITORY TYPE CODE TESTS RESULT OUT OF RANGE REFERENCE UNITS LAB L300.4150 11.7-14.9 SECONDS Normal PROTIME 12.9 LAB L300.4200 Normal INR 1.0 Performed By: #### L300.3900, L300.4310 #### [facility] [address] [place], [address] PARTIAL THROMBOPLAST Collected: 09/02/2017 Status: F Source: CULLMAN TIME 9:50 AM [facility] REPOSITORY TYPE CODE TESTS RESULT OUT OF RANGE REFERENCE UNITS LAB L300.4310 24.1-36.2 Seconds Normal PTT 31.0 Performed By: #### L300.3900, L300.4310 #### [facility] [address] [place], [address] BASIC METABOLIC Collected: 09/02/2017 Status: F Source: CULLMAN PROFILE (BMP) 9:50 AM [facility] 6 Performed By: #### L500.2500, L501.1800 #### [facility] [address] [place], [place], [address] ALBUMIN, SERUM Collected: 09/02/2017 Status: F Source: CULLMAN 9:50 AM [facility] REPOSITORY TYPE CODE TESTS RESULT OUT OF RANGE REFERENCE UNITS LAB L501.1800 3.2-5.0 g/dL Low ALB 2.9 Performed By: #### L500.2500, L501.1800 #### [facility] [address] [place], [place], [address] LIVER PROFILE Collected: 09/02/2017 Status: F Source: C[place] 9:50 AM [facility] [...] Performed By: #### L500.3400, L501.2300, L501.5200 #### [facility] [address] [place], [address] PHOSPHORUS Collected: 09/02/2017 Status: F Source: CULLMAN 9:50 AM [facility] REPOSITORY TYPE CODE TESTS RESULT OUT OF RANGE REFERENCE UNITS LAB L501.2300 2.5-4.9 mg/dL Normal PHOS 3.1 Performed By: #### L500.3400, L501.2300, L501.5200 #### [facility] [address] [place], [address] MAGNESIUM Collected: 09/02/2017 Status: F Source: CULLMAN 9:50 AM [facility] REPOSITORY TYPE CODE TESTS RESULT OUT OF RANGE REFERENCE UNITS LAB L501.5200 1.6-2.6 mg/dL Normal MG 2.1 Result Comment: Please note revised Magnesium reference range effective 2017. Performed By: #### L500.3400, L501.2300, L501.5200 #### [facility] [address], [address] TYPE AND SCREEN Collected: 09/02/2017 Status: F Source: CULLMAN 9:50 AM [facility] REPOSITORY Order Comment: Reason for Type AND Screen/Red Cells: SURGERY Surgery Date: 09/09/17 Type of Surgery: ABD. AORTIC ANEURYSM TYPE CODE TESTS RESULT OUT OF RANGE REFERENCE UNITS LAB B10.0800 A Normal BLOOD TYPE GEL NEGATIVE LAB B100.4000 Normal Antibody NEGATIVE Screen Performed By: #### B101.7450 #### [facility] [address] [place], [address] CHEST PA AND LATERAL Observed: 09/02/2017 Status: F Source: CULLMAN 9:45 AM [facility] REPOSITORY [facility] Imaging Services [address] [place] [address] Chest PA and Lateral MR#: [id number] Acct: [id number] Name: VICKI RANDLE Rep #: [id number] : 1945 M 72 From: Eriberto Allen MD PCP: Alvin Hughes III, MD Status: PRE SDC Study: Chest PA and Lateral Date of Exam: 09/02/17 Exam# [id number] Ordering Dr: Nam Hughes MD STUDY: X-RAY [...] Eriberto Allen MD at 10:27 EDT Tel [phone], Service support , CC: Alvin Hughes III, MD; Nam Hughes MD Fire Prevention Engineer: Signed SURGERY VISIT REPORT Observed: 08/19/2017 Status: F Source: CULLMAN 5:[address] [facility] [address] [place] [address] [place] [address] OFFICE VISIT Date of Service: 08/19/17 MR#: [id number] Acct: [id number] Name: VICKI RANDLE Rep #: [id number] : 1945 Provider: Nam Hughes MD Age/Sex: 72/M Location: [facility]MS.[facility] Status: Signed Intake Intake Visit Reasons: F/U [...] for follow up re: AAA stent grafting. R.Cebul Intake Allergies adhesive Adverse Reaction (Verified 08/05/17 [...] Hughes, JACKSON Hughes M.D., F.A.C.S. Orders Orders: Colonoscopy 08/05/17 [...] air Intake Visit Reasons: Abdominal aortic aneurysm Package Yarns Drying Machine Operator Required: No Is patient in pain?: No [...] a cardiac stress test performed at the [facility]. There is no evidence of any inducible [...] Nutritional Appearance: average body habitus Orientation: alert [facility] Head: normal to inspection Eyes General: [...] Exam Const General: cooperative Nutritional Appearance: obese [facility] Head: normal to inspection Eyes General: [...] signed by Nam Hughes MD> Date Nam Louiseigner Signature:Date (if applicable) CC: Alvin Hughes III, [...] Dr. Alvin Hughes, JACKSON Hughes M.D., F.A.C.S. Coding Level of Care Code Off vis,est,level 3 Diagnoses Abdominal aortic aneurysm (AAA) without rupture I71.4 Presence of rupture: without rupture Time Spent (min) 08/19/17 1728 <Electronically signed by Nam Hughes MD> Date Nam Elizalde Signature: Date (if applicable) CC: Alvin Hughes III, MD CAROTID DUPLEX Observed: 08/14/2017 Status: F Source: CULLMAN ULTRASOUND 6:22 PM [facility] REPOSITORY [facility] Cardiovascular Services [place] [address] Carotid Duplex Ultrasound 08/14/17 1047 MR#: [id number] Acct: [id number] Name: VICKI RANDLE Rep #: [id number] : 1945 72 From: Nam Hughes MD [...] the left vertebral artery. Procedure Carotid Duplex 13583. Exam performed in department. 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 Minimal calcific plague at the proximal left internal carotid with <50% stenosis. Normal flow bilateral external carotids. Patent and antegrade vertebrals bilaterally. Ordering Physician: Nam Hughes Referring Physician: Nam Hughes Performed By: Lorena Mario RVT 08/14/171820 Date Nam Hughes MD CC: Alvin Hughes III, MD; Nam Hughes MD Date Dictated: 08/14/17 1047 Date Transcribed: 08/14/171820 Fire Prevention Engineer: Signed CTA ABDOMEN W/WO Observed: 08/07/2017 Status: F Source: GIL CONTRAST 5:40 PM [facility] REPOSITORY [facility] Imaging Services [address] [place] [address] CTA Abdomen W/WO Contrast MR#: [id number] Acct: [id number] Name: VICKI RANDLE Rep #: [id number] : 1945 M 72 From: Javier Guerra MD PCP: Alvin Hughes III, MD Status: REG CLI Study: CTA Abdomen W/WO Contrast Date of Exam: 08/07/17 Exam# [id number] Ordering Dr: Nam Hughes MD STUDY: CTA [...] Alvin Hughes III, MD; Nam Hughes MD Fire Prevention Engineer: Signed SURGERY VISIT REPORT Observed: 08/06/2017 Status: F Source: CULLMAN 6:11 PM [facility] REPOSITORY [facility] [address] [place] [address] OFFICE VISIT Date of Service: 08/05/17 MR#: [id number] Acct: [id number] Name: VICKI RANDLE Rep #: [id number] : 1945 Provider: Nam Hughes MD Age/Sex: 72/M Location: [facility] Status: Signed with Addenda ADDENDUM by Nam Hughes MD on 08/06/17 at 1811 Addendum entered and electronically signed by Nam Hughes MD 08/06/17 18:11: This pt is scheduled for a carotid duplex and CTA of the abdomen and NOT a cscope--my documentation was incorrect Pt will be seen back in my office for follow up re: AAA stent grafting. R.Cebul Intake Allergies adhesive Adverse Reaction (Verified 08/05/17 [...] Cc: JACKSON Littlejohn M.D., F.A.C.S. Orders Orders: 08/06/171810 <Electronically signed by Nam Hughes MD> Date Nam Hughes MD cc: Alvin Hughes III, MD * Signed Intake Vital Signs08/05/17 Height 6 ft 1 in 08/05/17 Weight: 260 lb Intake Visit Reasons: Abdominal aortic aneurysm Package Yarns Drying Machine Operator Required: No Is patient in pain?: No [...] referred by primary care physician Dr. Alvin Hughes III and a written copy of my [...] a cardiac stress test performed at the [facility]. There is no evidence of any inducible [...] Nutritional Appearance: average body habitus Orientation: alert [facility] Head: normal to inspection Eyes General: appearance [...] his surgical care. Cc: Dr. Alvin Hughes, [facility] Nam Hughes M.D., F.A.C.S. Coding Level of [...] Exam Const General: cooperative Nutritional Appearance: obese [facility] Head: normal to inspection Eyes General: [...] GAP 7 Performed By: #### L500.2500 #### [facility] [address] [place], [address] PLASTIC SURGERY Observed: 07/26/2017 Status: F Source: CULLMAN VISIT REPORT 4:35 PM [facility] REPOSITORY [facility] [address] [facility] [address] [place] [address] OFFICE VISIT Date of Service: 06/18/17 MR#: [id number] Acct: [id number] Name: VICKI RANDLE Rep #: [id number] : 1945 Provider: Francis Dudley MD Age/Sex: 71/M Location: [facility] Status: Signed Intake Vital Signs06/18/17 Height 6 ft 1 in 06/18/17 Weight: 257 lb 2 oz Intake Visit Reasons: evaluation for TBSE Package Yarns Drying Machine Operator Required: No Accompanied by: None Is patient in pain?: No Allergies adhesive Adverse Reaction (Verified 06/18/17 16:49) Itching atorvastatin [From Lipitor] Adverse Reaction (Verified 06/18/17 16:49) Other rosuvastatin calcium [From Crestor] Adverse Reaction (Verified 01/17/18 16:49) ACHING Medications Finasteride [Proscar] 5 mg [...] keratosis L57.0 07/26/17 1635 <Electronically signed by Francis Dudley MD> Date Francis Dudley MD Cosigner Signature: Date (if applicable) CC: Alvin Hughes III, MD PROGRESS Observed: 07/16/2017 Status: COMPLETED Source: SOMERSET 5:10 PM [facility] REPOSITORY HNO ID: [id number] Author: Alvin Hughes III Service: (none) Author Type: Physician Type: Progress Notes Filed: 07/16/2017 5:10 PM Note Text: Please notify patient that The abdominal aortic aneurysm measures 4.9 cm. I have discussed the case with Dr. Nam Hughes who recommends surgical evaluation. The patient had previously indicated interest in evaluation by Dr. Hughes type placed the consult order. Alvin Hughes III, MD, [facility] US ABD AORTA Observed: 07/15/2017 Status: F Source: [place] 11:24 AM [facility] REPOSITORY * * *Final Report* * * DATE OF EXAM: Jul 15 2017 11:24AM [facility] 1075 - US ABD AORTA / PROCEDURE [...] measurements unchanged in the iliac arteries also. Fire Prevention Engineer: RUDDY Transcribe Date/Time: Jul 15 2017 11:57A Dictated by : JOSE POLLOCK DO This examination was interpreted and the report reviewed and electronically signed by: JOSE POLLOCK DO on Jul 15 2017 12:02PM EST [id number] [id number] Observed: 07/15/2017 Status: COMPLETED Source: [place] 10:39 AM [facility] REPOSITORY HNO ID: [id number] Author: Anna Rivera Service: (none) Author Type: [...] AM PROGRESS Observed: 07/12/2017 Status: COMPLETED Source: [place] 11:29 AM [facility] REPOSITORY HNO ID: [id number] Author: Alvin Hughes III Service: (none) Author [...] Diagnosis Date - AAA (abdominal aortic aneurysm) ([facility]) 02/06/2012 01/10/17: CT abd 4.8 cm - Benign hypertension 07/13/2015 - Esophageal reflux Gastroesophageal reflux - Facet arthritis of lumbar region ([facility]) 06/27/2014 - Hypertrophy of prostate without urinary obstruction and other lower urinary tract symptoms (LUTS) Hypertrophy of the prostate w/o obstruction - Mixed hyperlipidemia Hyperlipidemia - Nodule of right lung 04/17/2012 - Other specified disorder of gallbladder 09/07/07 - Pulmonary emphysema ([facility]) 12/31/2016 - Sebaceous cyst - Situational depression [...] MPV 9.1 Performed By: #### L100.0500 #### [facility] [address] [place], [address] BASIC METABOLIC Collected: 06/27/2017 Status: F Source: GIL PROFILE (BMP) 10:04 AM [facility] REPOSITORY TYPE CODE TESTS RESULT OUT [...] GAP 6 Performed By: #### L500.2500 #### [facility] [address] [place], [place], [address] ALLERGIES ALLERGIES DATE TYPE / CODE NAME / CODE REACTION SEVERITY SOURCE Drug rosuvastatin ACHING Unknown [facility] 8 Allergy/000268328( calcium/B40521786 Community SNOMED CT) 3(RXNORM) Hospital Repository Drug adhesive/Z7353986 Itching Unknown [facility] 8 Allergy/600687545( 45(RXNORM) [facility] SNOMED CT) Hospital Repository Drug atorvastatin/F006 Other Unknown [place] 8 Allergy/783573006( 863568(RXNORM) [facility] SNOMED CT) Hospital Repository Drug [id number]-PIW-SOW Myalgia [place] 8 Class/894206922(SN REDUCTASE Clinic Main OMED CT) INHIBITORS [place] Repository DRUG ROSUVASTATIN INTOLERANCE [place] 7 INGREDI/539153972( CALCIUM Clinic Main SNOMED CT) [place] Rep[facility] DRUG ATORVASTATIN INTOLERANCE [place] 5 INGREDI/139164444( CALCIUM [facility] Main SNOMED CT) [place] Rep[facility] Miscellaneous OTHER ITCHING [place] 5 Allergy/485361836( Clinic Main SNOMED CT) [place] Repository ENCOUNTERS ENCOUNTERS ADMIT/DISCHARGE ACCOUNT ADMITTING ENCOUNTER LOCATION SOURCE NUMBER CLASS 06/12/2018/06/12/19 [id number] Ambulatory [address] Repository 06/12/2018/06/12/19 [id number] Ambulatory [address] Repository 06/12/2018/06/15/19 [id number] Ambulatory [address] Repository 06/03/2018/06/03/19 [id number] Ambulatory BMSBuilding:B [facility] [place]ository 05/22/2018/05/22/20 [id number] Emergency [facility] Hospital ing:ED Repository 05/18/2018/05/18/20 [id number] Ambulatory BMSBuilding:B [place] 18 MS.[facility] Repository 05/18/2018 [id number] [facility] Repository 05/18/2018 [id number] Ambulatory BMSBuilding:B [place] MS.CF.[facility] Repository 05/13/2018 [id number] Ambulatory BMSBuilding:B [place] MS.[facility] Repository 05/13/2018 [id number] Ambulatory [facility] Hospital ing:[facility] Repository 05/11/2018/05/11/20 [id number] Ambulatory BMSBuilding:B [place] 18 [facility] Repository 05/04/2018/05/04/20 [id number] Ambulatory BMSBuilding:B [place] 18 MS.S [facility] Repository 04/28/2018 [id number] Ambulatory BMSBuilding:Facundo [place] MS.[facility] Repository 04/28/2018/04/28/20 [id number] Ambulatory [address] ing:SDCRoom: Repository AC03 04/27/2018 [id number] Ambulatory BMSBuilding:Facundo [address] MS.[facility] Repository 03/16/2018/03/16/20 [id number] Ambulatory [address] Repository 03/16/2018/03/17/20 [id number] Ambulatory [address] Repository 02/19/2018/02/20/20 [id number] Emergency [address] ing:ED Repository 01/16/2018/01/28/20 [id number] Ambulatory [address] Repository 01/09/2018/01/10/20 [id number] Ambulatory [address] Repository 01/09/2018/01/13/20 [id number] Ambulatory [address] Repository 01/07/2018/01/08/20 [id number] Ambulatory BMSBuilding:Facundo [address]order[address] 18 [facility] Repository 01/06/2018/01/07/20 [id number] Ambulatory [address] Repository 12/29/2017/12/30/19 [id number] Ambulatory [address] ing:EN Repository 11/28/2017/11/29/19 [id number] Ambulatory [address] Repository 11/26/2017/11/27/19 [id number] Ambulatory BMSBuilding:B [place] 18 [facility] Repository 11/20/2017 [id number] Ambulatory [facility] ing:CT Repository 11/20/2017/11/22/19 [id number] Ambulatory [address] Repository 11/07/2017/11/11/19 [id number] Ambulatory [address] Repository 10/21/2017/10/23/19 [id number] Ambulatory [address] Repository 10/01/2017/10/03/19 [id number] Ambulatory [address] Repository 09/22/2017/09/23/19 [id number] Ambulatory BMSBuilding:B [place] 18 [facility] Repository 09/09/2017/09/11/19 [id number] AlvertoNam celestin Inpatient [facility] 18 [facility] ing:ICURoom: Repository [id number]: 1 09/09/2017 [id number] AlvertoNam celestin Ambulatory BMSBuilding:B [place] MS.[facility] Repository 09/09/2017 [id number] CesissyNam celestin Ambulatory BMSBuilding:B [place] MS.[facility] Repository 09/09/2017/09/11/19 [id number] Ambulatory BMSBuilding:B [place] 18 MS.CF.[facility] Repository 09/02/2017/09/11/19 [id number] Ambulatory BMSBuilding:W [place] 18 [facility] Repository 08/19/2017/08/20/19 [id number] Ambulatory BMSBuilding:B [place] 18 MS.[facility] Repository 08/14/2017 [id number] Ambulatory [facility] Hospital ing:[facility] Repository 08/14/2017 [id number] Ambulatory BMSBuilding:B [place] MS.CF.[facility] Repository 08/07/2017 [id number] Ambulatory [facility] ing:CT Repository 08/05/2017 [id number] Ambulatory [facility] ing:MTLAB Repository 08/05/2017/08/06/19 [id number] Ambulatory BMSBuilding:B [place] 18 [facility] Repository 07/15/2017/07/15/19 [id number] Ambulatory [address] Repository 07/12/2017/07/12/19 [id number] Ambulatory [address] Repository 06/27/2017 [id number] Ambulatory [facility] Hospital ing:LAB Repository 06/18/2017/06/18/19 [id number] Ambulatory BMSBuilding:B [place] [facility] Repository PAYERS PAYERS ENCOUNTER GUARANTOR PAYER SUBSCRIBER SOURCE 06/03/2018 VICKI Coredro [id number] SR Insurance:AETFRACISCO MONSONB: [address] MCRPolicy Number: [id number] Hospital 26[address]Ocp: (330) [id number] Repository [phone] (HP) Date:8803-84-13KZ [address] [address]SP: 06/03/2018 Secondary NOT GIVENUNK [facility] Insurance:SELF PAY [facility] Number: Effective Repository Date:2018-06-03 05/22/2018 VICKI Cordero [id number] SR Insurance:AETFRACISCO MONSONB: [address]: [id number] Hospital [address]Bwa: (330) [id number] Repository [phone] (HP) Date:2216-88-18GO [address] [address]PE: 05/22/2018 Secondary NOT GIVENUNK [facility] Insurance:SELF PAY [facility] Number: Effective Repository Date:2018-05-22 05/18/2018 VICKI Cordero [id number] SR Insurance:JUWAN MONSONB: [address]: [id number] Hospital [address]Qda: (330) [id number] Repository [phone] (HP) Date:5900-25-10YO [address] [address]PS: 05/18/2018 Secondary NOT GIVENUNK [facility] Insurance:SELF PAY [facility] Number: Effective Repository Date:2018-05-15 05/18/2018 VICKI Cordero [id number] SR Insurance:AETFRACISCO MONSONB: [address] Number: [id number] Hospital [address]Gun: (330) [id number] Repository [phone] (HP) Date:3107-75-91KK [address] [address]AB: 05/18/2018 Secondary NOT GIVENUNK [facility] Insurance:SELF PAY [facility] Number: Effective Repository Date:2018-05-18 05/18/2018 VICKI Cordero [id number] SR Insurance:AETFRACISCO MONSONB: Community [address], [place] MCRPolicy Number: [id number] Hospital 29281Fif: (330) [id number] Repository [phone] () Date:5399-80-26ZZ [address] [place] [address]YT: 05/18/2018 Secondary NOT GIVENUNK Graham Insurance:SELF PAY [facility] Number: Effective Repository Date:2018-05-18 05/13/2018 VICKI Cordero [id number] SR Insurance:AETFRACISCO RANDLEDOB: [address], [place] MCRPolicy Number: [id number] Hospital 01497Yvr: (330) [id number] Repository [phone] () Date:1109-01-94NZ [address] [place] [address]CB: 05/13/2018 Secondary NOT GIVENUNK Graham Insurance:SELF PAY [facility] Number: Effective Repository Date:2018-05-13 05/13/2018 VICKI Cordero [id number] SR Insurance:AETFRACISCO MONSONB: [place] [address] MCRPolicy Number: [id number] Hospital 75832Lrp: (330) [id number] Repository [phone] () Date:7777-74-96HW [address] [place] [address]SD: 05/13/2018 Secondary NOT GIVENUNK Graham Insurance:SELF PAY [facility] Number: Effective Repository Date:2018-05-04 05/11/2018 VICKI Cordero [id number] SR Insurance:AETNA RAZIADOB: Community [address] MCRPolicy Number: [id number] Hospital 89236Xfa: (330) [id number] Repository [phone] () Date:2153-30-10XE [address] [place] [address]WX: 05/11/2018 Secondary NOT GIVENUNK Gil Insurance:SELF PAY [facility] Number: Effective Repository Date:2018-05-11 05/04/2018 VICKI Primary VICKI Cordero [id number] SR Insurance:AETNA RAZIADOB: Community [address] [place], [place] [address] MCRPolicy Number: [id number] Hospital 625[address]Ofk: (330) [id number] Repository [phone] () Date:6748-70-71CD [address] [place] [address]OZ: 05/04/2018 Secondary NOT GIVENUNK Graham Insurance:SELF PAY [facility] Number: Effective Repository Date:2018-05-04 04/28/2018 VICKI Primary VICKI Cordero [id number] SR Insurance:AETNA IONAB: Community [address] [place], [place] [address] MCRPolicy Number: [id number] [facility] [address]Awn: (330) [id number] Repository [phone] () Date:7114-40-71CU [address] [address]DA: 04/28/2018 Secondary NOT GIVENUNK Gil Insurance:SELF PAY [facility] Number: Effective Repository Date:2018-04-28 04/28/2018 VICKI Primary VICKI Cordero [id number] SR Insurance:AETNA RAZIADOB: [facility] [place] MCRPolicy Number: [id number] Hospital 07356Ngc: (330) [id number] Repository [phone] () Date:4311-82-65ZQ [address] [place] [address]GK: 04/28/2018 Secondary NOT GIVENUNK Gil Insurance:SELF PAY [facility] Number: Effective Repository Date:2018-02-19 04/27/2018 VICKI Primary VICKI Cordero [id number] SR Insurance:AETFRACISCO MONSONB: [address] Number: [id number] Hospital 24467Sul: (330) [id number] Repository [phone] () Date:2083-66-20LM [address] [address]DQ: 04/27/2018 Secondary NOT GIVENUNK Gil Insurance:SELF PAY [facility] Number: Effective Repository Date:2018-04-27 02/19/2018 VICKI Primary VICKI Cordero [id number] SR Insurance:AETFRACISCO MONSONB: [address] Number: [id number] Hospital 18571Sjq: (330) [id number] Repository [phone] () Date:8210-59-87NL [address] [address]CT: 02/19/2018 Secondary NOT GIVENUNK Graham Insurance:SELF PAY [facility] Number: Effective Repository Date:2018-02-19 01/07/2018 VICKI Cordero [id number] SR Insurance:JUWAN MONSONB: [address] Number: [id number] Hospital [address]8974Zfi: (330) [id number] Repository [phone] () Date:6906-76-50LL [address] [address]TV: 01/07/2018 Secondary NOT GIVENUNK Graham Insurance:SELF PAY [facility] Number: Effective Repository Date:2017-12-09 12/29/2017 VICKI Demarco NOT GIVENUNK Gil [id number] SR Insurance:SELF PAY [address] [address]Xio: (330) Number: Effective Repository [phone] () Date:2017-11-28 11/26/2017 VICKI Cordero [id number] SR Insurance:AETFRACISCO MONSONB: [address] [place] MCRPolicy Number: [id number] Hospital 74243Ghr: (330) [id number] Repository [phone] (HP) Date:9064-14-69PS [address] [place] [address]ND: 11/26/2017 Secondary NOT GIVENUNK Gil Insurance:SELF PAY [facility] Number: Effective Repository Date:2017-09-25 11/20/2017 VICKI Primary VICKI Cordero [id number] SR Insurance:AETFRACISCO MONSONB: [address] [place] MCRPolicy Number: [id number] Hospital 53755Ysx: (330) [id number] Repository [phone] () Date:9521-71-48ZM [address] [place] [address]JX: 11/20/2017 Secondary NOT GIVENUNK Graham Insurance:SELF PAY [facility] Number: Effective Repository Date:2017-09-22 09/22/2017 VICKI Primary VICKI Cordero [id number] SR Insurance:JUWAN MONSONB: [address] [facility]: [id number] Hospital 69790Ktv: (330) [id number] Repository [phone] () Date:4745-39-11HM [address] [place] [address]IG: 09/22/2017 Secondary NOT GIVENUNK Gil Insurance:SELF PAY [facility] Number: Effective Repository Date:2017-09-10 09/09/2017 VICKI Primary VICKI Cordero [id number] SR Insurance:JUWAN MONSONB: [address] [facility]: [id number] Hospital 65275Ddg: (330) [id number] Repository [phone] () Date:6613-47-39HR [address] [place] [address]ZD: 09/09/2017 Secondary NOT GIVENUNK Graham Insurance:SELF PAY [facility] Number: Effective Repository Date:2017-08-22 09/09/2017 VICKI Cordero [id number] SR Insurance:AETNA RAZIADOB: [address], [place] MCRPolicy Number: [id number] Hospital 85772Zar: (330) [id number] Repository [phone] (HP) Date:0645-72-66RC [address] [address]OH: 09/09/2017 Secondary NOT GIVENUNK Gil Insurance:SELF PAY [facility] Number: Effective Repository Date:2017-09-09 09/09/2017 VICKI Cordero [id number] SR Insurance:AETNA RAZIADOB: [address], [place] MCRPolicy Number: [id number] Hospital 46635Yvl: (330) [id number] Repository [phone] (HP) Date:1404-98-79ES [address] [address]AW: 09/09/2017 Secondary NOT GIVENUNK Graham Insurance:SELF PAY [facility] Number: Effective Repository Date:2017-09-09 09/09/2017 VICKI Cordero [id number] SR Insurance:AETFRACISCO MONSONB: [address], [place] MCRPolicy Number: [id number] Hospital 91322Asq: (330) [id number] Repository [phone] (HP) Date:0207-43-16DJ [address] [address]HJ: 09/09/2017 Secondary NOT GIVENUNK Gil Insurance:SELF PAY [facility] Number: Effective Repository Date:2017-09-09 09/02/2017 VICKI Cordero [id number] SR Insurance:AETNA RAZIADOB: [address], [place] MCRPolicy Number: [id number] Hospital 6[address]Edq: (330) [id number] Repository [phone] (HP) Date:2824-23-43YA [address] [place] [address]RS: 09/02/2017 Secondary NOT GIVENUNK Gil Insurance:SELF PAY [facility] Number: Effective Repository Date:2017-09-02 08/19/2017 VICKI Cordero [id number] SR Insurance:AETNA RAZIADOB: [address] Number: [id number] Hospital 30807Lys: (330) [id number] Repository [phone] () Date:2535-11-58HZ [address] [place] [address]DB: 08/19/2017 Secondary NOT GIVENUNK Gil Insurance:SELF PAY [facility] Number: Effective Repository Date:2017-08-05 08/14/2017 VICKI Cordero [id number] SR Insurance:AETNA RAZIADOB: [address] Number: [id number] Hospital 45876Rlg: (330) [id number] Repository [phone] () Date:7878-92-37IQ [address] [place] [address]FF: 08/14/2017 Secondary NOT GIVENUNK Graham Insurance:SELF PAY [facility] Number: Effective Repository Date:2017-08-05 08/14/2017 VICKI Cordero [id number] SR Insurance:AETNA RAZIADOB: [address] MCRPolicy Number: [id number] Hospital 50963Bys: (330) [id number] Repository [phone] () Date:1638-26-04ND [address] [place] [address]PZ: 08/14/2017 Secondary NOT GIVENUNK Graham Insurance:SELF PAY [facility] Number: Effective Repository Date:2017-08-14 08/07/2017 VICKI Cordero [id number] SR Insurance:AETNA RAZIADOB: [address] MCRPolicy Number: [id number] Hospital 07652Dmm: (330) [id number] Repository [phone] (HP) Date:9427-10-25EM [address] [place] [address]FX: 08/07/2017 Secondary NOT GIVENUNK Gil Insurance:SELF PAY [facility] Number: Effective Repository Date:2017-08-05 08/05/2017 VICKI Primary VICKI Cordero [id number] SR Insurance:JUWAN MONSONB: [address] MCRPolicy Number: [id number] Hospital 14149Unz: (330) [id number] Repository [phone] () Date:6579-63-13RS [address] [place] [address]PC: 08/05/2017 Secondary NOT GIVENUNK Gil Insurance:SELF PAY [facility] Number: Effective Repository Date:2017-08-05 08/05/2017 VICKI Primary VICKI Cordero [id number] SR Insurance:JUWAN MONSONB: [address] Number: [id number] Hospital 55129Sxw: (330) [id number] Repository [phone] () Date:5171-94-73JU [address] [place] [address]BP: 08/05/2017 Secondary NOT GIVENUNK Gil Insurance:SELF PAY [facility] Number: Effective Repository Date:2017-07-21 06/27/2017 VICKI Primary VICKI Cordero [id number] SR Insurance:JUWAN MONSONB: [address] MCRPolicy Number: [id number] Hospital 70320Tyv: (330) [id number] Repository [phone] () Date:4629-57-34WD [address] [place] [address]QU: 06/27/2017 Secondary NOT GIVENUNK Gil Insurance:SELF PAY [facility] Number: Effective Repository Date:2017-06-27 06/18/2017 VICKI Cordero [id number] STATE Insurance:JUWAN BLAKELY: Community [address]SHREMichel[address] BLANCO Number: [id number] [address]Zqp: [id number] Repository Date:8415-66-38FO [address] (FJ) [address] [place] [address]CM: 06/18/2017 Secondary NOT GIVENUNK Gil Insurance:SELF PAY [facility] Number: Effective Repository Date:2017-05-03
== END ==
PROVIDERS: Family Provider Family Medicine; PCP Family Medicine; Referring Provider Surgery; Visit Provider Surgery
DX: I71.4 Abdominal aortic aneurysm, without rupture (principal)
CPT/HCPCS: 76706

== ENCOUNTER → 2018-05-18 09:12 | Outpatient (CLI) | payer MEDICARE, SELFPAY ==
[2018-05-11 15:05] VITALS: BMI 35.2
--- NOTE | 2018-05-18 09:16 | AAVD_ITS ---
Reason For Study: AAA with repair Aorta Measurements Aorta Doppler Measurements Proximal aorta measures1.9 x 1.9cm. in cross- Peak systolic flow velocities within the proximal sectional axis. aorta measure 95.8 cm/sec. Proximal aorta measures1.8cm. in longitudinal Peak systolic flow velocities within the mid aorta axis. measure 82.1 cm/sec. Mid aorta measures4.0 x 4.4cm. in cross-sectional Peak systolic flow velocities within the distal axis. aorta measure 78.4 cm/sec. Mid aorta measures4.5cm. in longitudinal axis. Distal aorta measures3.3 x 3.6cm. in cross- sectional axis. Distal aorta measures3.5cm. in longitudinal axis. Left Iliac Artery Left iliac artery measures 1.2 cm. in the longitudinal axis. Left iliac artery measures 1.2 x 1.2 cm. in the cross-sectional axis. Peak systolic velocity in the left iliac artery measures 75.2 cm/sec. Right Iliac Artery Right iliac artery measures 1.1 x 1.1 cm. in the longitudinal axis. Right iliac artery measures 1.1 cm. in the cross-sectional axis. Peak systolic velocity in the right iliac artery measures 108.0 cm/sec. Procedure Aorta IVC Iliac vasculature or bypass grafts 67644. Technically difficult due to body habitus and bowel gas. Exam performed in department. Interpretation Summary Maximal aortic aneurysm sac dimensions 4.01 x 4.41cm Mid aorta suggests AP diameter of 4.5cm Stent graft in place with normal flow Left common iliac 1.2cm Right common iliac 1.1cm Ordering Physician: Nam Berg Referring Physician: Osbaldo Berg Performed By: Lorena Mario RVT
--- OUTSIDE RECORDS SUMMARY | 2018-08-19 20:50 | XMS RPT_ITS ---
:1945 Author Organization OHIP Support Name Relationship Address Phone RAZIAMARCO Unavailable [address] + [place] [address] R Unavailable Unavailable Unavailable RAZIA MARCO Unavailable [address] + [place] [address] R Unavailable Unavailable Unavailable RAZIA MARCO Unavailable [address] + [place] [address] R Unavailable Unavailable Unavailable RAZIA MARCO Unavailable [address] + [place] [address] R Unavailable Unavailable Unavailable RAZIA MARCO Unavailable [address] + [place] [address] R Unavailable Unavailable Unavailable RAZIA MARCO Unavailable [address] + [place] [address] R Unavailable Unavailable Unavailable RAZIA MARCO Unavailable [address] + [place] [address] R Unavailable Unavailable Unavailable RAZIA MARCO Unavailable [address] + [place] [address] R Unavailable Unavailable Unavailable RAZIA MARCO Unavailable [address] + [place] [address] R Unavailable Unavailable Unavailable RAZIA MARCO Unavailable [address] + [place] [address] R Unavailable Unavailable Unavailable RAZIA MARCO Unavailable [address] + [place] [address] R Unavailable Unavailable Unavailable RAZIA MARCO Unavailable [address] + [place] [address] R Unavailable Unavailable Unavailable RAZIA MARCO Unavailable [address] + [place] [address] R Unavailable Unavailable Unavailable RAZIA MARCO Unavailable [address] + [place] [address] R Unavailable Unavailable Unavailable RAZIA, MARCO Unavailable [address] + [place] [address] R Unavailable Unavailable Unavailable RAZIA MARCO Unavailable [address] + [place] [address] R Unavailable Unavailable Unavailable RAZIA, MARCO Unavailable [address] + [place] [address] R Unavailable Unavailable Unavailable RAZIA, MARCO Unavailable [address] + [place] [address] R Unavailable Unavailable Unavailable RAZIA MARCO Unavailable [address] + [place] [address] R Unavailable Unavailable Unavailable RAZIA, MARCO Unavailable [address] + [place] [address] R Unavailable Unavailable Unavailable RAZIA, MARCO Unavailable [address] + [place] [address] R Unavailable Unavailable Unavailable RAZIA MARCO Unavailable [address] + [place] [address] R Unavailable Unavailable Unavailable RAZIA MARCO Unavailable [address] + [place] [address] R Unavailable Unavailable Unavailable RAZIA MARCO Unavailable [address] + [place] [address] R Unavailable Unavailable Unavailable RAZIA MARCO Unavailable [address] + [place] [address] R Unavailable Unavailable Unavailable RAZIA, MARCO Unavailable [address] + [place] [address] R Unavailable Unavailable Unavailable RAZIA MARCO Unavailable [address] + [place] [address] R Unavailable Unavailable Unavailable RAZIA MARCO Unavailable [address] [phone] [place] [address] R Unavailable Unavailable Unavailable RAZIA MARCO Unavailable [address] + [place] [address] R Unavailable Unavailable Unavailable RAZIA MARCO Unavailable [address] [phone] [place] [address] R Unavailable Unavailable Unavailable RAZIA MARCO Unavailable [address] [phone] [place] [address] R Unavailable Unavailable Unavailable Care Team Providers [...] Alvin Referring Unavailable Cebul, Nam Attending Unavailable CebulNam Referring Unavailable Cebul III, Alvin Primary Care Unavailable Cebul, Nam Consulting Unavailable Cebul III, Alvin Referring Unavailable Cebul III, Alvin Primary Care Unavailable Cebul III, Alvin Attending Unavailable Cebul, Nam Attending Unavailable Cebul [...] Care Unavailable Cebul, Nam Attending Unavailable Cebul Nam Referring Unavailable Cebul III, Alvin Primary Care Unavailable Cebul, Nam Attending Unavailable Cebul III, Alvin Referring Unavailable Cebul III, Alvin Primary Care Unavailable Cebul, Nam Attending Unavailable Cebul Nam Referring Unavailable Cebul III, Alvin Primary Care Unavailable Cebul, Nam Admitting Unavailable KitGurjit mckinney Consulting Unavailable Cebul, Nam Admitting Unavailable [place], [...] 06/12/2018 Active Acute embolism and NA Active [place] thrombosis of right Clinic Main femoral vein / [place] I82.411(ICD-10) Repository 12/31/2016 Active Emphysema, NA Active [place] unspecified / Clinic Main J43.9(ICD-10) [place] Repository 06/12/2018 Active Other forms of NA Active [place] dyspnea / Clinic Main R06.09(ICD-10) [place] Repository 06/15/2018 Unknown I71.4 - Abdominal Cebul III, Active [place] aortic aneurysm, Alvin Community without rupture / Hospital I71.4(ICD-10) Repository 06/16/2018 Unknown I74.4 - Embolism and AlvertoNam celestin Active [place] thrombosis of Community arteries of Hospital extremities, Repository unspecified / I74.4(ICD-10) 04/29/2018 Unknown G89.18 - Other acute Francis Dudley Active [place] postprocedural pain Community / G89.18(ICD-10) Hospital Repository 03/16/2018 Active shelter (current) NA Active [place] use of Clinic 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 / [place] Z79.01(ICD-10) Repository 01/16/2018 Active Unknown / CHAN MENON Active [place] UNK(Unknown) (PA) Clinic Main [place] Repository 01/17/2017 Active Benign prostatic NA Active [place] hyperplasia with Clinic Main lower urinary tract [place] symptoms / Repository N40.1(ICD-10) 01/17/2017 Active 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 Clinic Main / N13.8(ICD-10) [place] Repository 07/13/2015 Active Essential (primary) NA Active [place] hypertension / Clinic Main I10(ICD-10) [place] Repository 01/09/2018 Active Other long-term NA Active [place] (current) drug Clinic Main therapy / [place] Z79.899(ICD-10) Repository 11/20/2017 Unknown Z98.890 - Other AdoresissyNam celestin Active [place] specified Community postprocedural Hospital states / Repository Z98.890(ICD-10) 11/20/2017 Unknown Z86.79 - Personal AdoresissyNam celestin Active [place] history of other Community diseases of the Hospital circulatory system / Repository Z86.79(ICD-10) 10/10/2017 Unknown I10 - Essential Concepcion, Luis Active [place] (primary) Community hypertension / Hospital I10(ICD-10) Repository 09/24/2017 Unknown R09.89 - Other Otis Nam Active [place] specified symptoms Community and signs involving Hospital the circulatory and Repository respiratory systems / R09.89(ICD-10) 07/15/2017 Active Abdominal aortic NA Active [place] aneurysm, without Clinic Main rupture / [place] I71.4(ICD-10) Repository 06/27/2017 Unknown Z01.818 - Encounter Francis Newell Active [place] for other Community preprocedural Hospital examination / Repository Z01.818(ICD-10) PROCEDURES PROCEDURES No Procedure Records FoundRESULTS RESULTS PROGRESS Observed: 06/17/2018 Status: COMPLETED Source: [place] 5:53 PM [facility] REPOSITORY HNO ID: [id number] Author: Alvin Hughes III Service: (none) Author Type: Physician Type: Progress Notes Filed: 06/17/2018 5:53 PM Note Text: Platelet count is normal. Continue present medications. Alvin Hughes III, MD, FAAFP PROGRESS Observed: 06/17/2018 Status: COMPLETED Source: [place] 5:52 PM [facility] REPOSITORY HNO ID: [id number] Author: Alvin Hughes III Service: (none) Author [...] FAAFP CBC Collected: 06/12/2018 Status: F Source: [place] 12:19 PM [facility] REPOSITORY TYPE CODE TESTS RESULT OUT [...] nRBC 0.02 Performed By: #### CBC #### [facility] [address] [place], [place] [address] XR CHEST 2V FRONTAL/LAT Observed: 06/12/2018 Status: F Source: [place] 12:08 PM [facility] REPOSITORY * * *Final Report* * [...] or infiltrates. Continued follow-up to resolution recommended. Track Laborer: PSCFacundo Transcribe Date/Time: Jun 12 2018 2:09P Dictated by : GERI ANDREA MD This examination was interpreted and the report reviewed and electronically signed by: GERI ANDREA MD on Jun 12 2018 2:14PM EST [id number] PROGRESS Observed: 06/12/2018 Status: COMPLETED Source: [place] 12:00 PM [facility] REPOSITORY HNO ID: [id number] Author: Miguel Pacheco (Rt) Service: (none) Author Type: Senior Care Assistant Type: Progress Notes Filed: 06/12/2018 12:09 PM [...] PM PROGRESS Observed: 06/12/2018 Status: COMPLETED Source: [place] 11:26 AM [facility] REPOSITORY HNO ID: [id number] Author: Alvin Hughes III Service: (none) Author [...] Abd CT 10/2017: good post op result [facility] ?[address] ? [place] [address] ?Test Date: ? ? 2017-01-07 Pat Name: ? ? ?VICKI RANDLE ? Department: ? ? Patient ID: ? ?[id number] ?Room: ? Gender: ?Male ?Senior Care Assistant: ? ? : ? 1945 ?Requested By: ? Order Number: ?[id number] ? ? ? Reading MD: ? ?Fadi [...] EDT by [facility] ? [facility] [place] ? [address] ? [place] [id number] ? PFT Lab Report Name: VICKI RANDLE ?ID: [id number] ? Date: 01/07/17 ?Physician: Melina Roblero ? Age: 71 ? Height(in): 73.0 ? Weight(lb): 251 ? Gender: Male ?Race: ? Diagnosis: ?Medication Set 1: ? Dyspnea Rest: No ?Dyspnea Exercise: No ? Cough: No ? Persistent: No ?Productive (cc): ? Smoker: No ?How Long: ? Stopped: ?Cigarettes: No ? Senior Care Assistant: Ciera Muñoz, BUS WASHER ?Temp: ?22 ?PBar: 763 ?PF Reference: ######## Spirometry ?Hb: ?gm/dL ?Ref ? Pre ? Pre ? Post ?Post ?Post ?Harsh ?% Ref ? ? ? Harsh ?% Ref ? ? ? % Chg FVC ?Liters ? ? ?4.88 ?3.59 ?74 ?3.90 ?80 ?9 FEV1 ? ? ? Liters ? ? ?3.59 ?2.60 ?73 ?2.66 ?74 ?2 FEV1/FVC ? % ? 73 ?72 ?68 BTM52-67% ?L/sec ? ? ? 2.69 ?1.83 ?68 ?1.39 ?52 ?-24 GqoWKX70-99 L/sec ? ? ?2.75 ?1.83 ?67 ?2.13 ?77 ?16 PEF ?L/sec ? ? ? 8.91 ?7.92 ?89 ?7.22 ?81 ?-9 KTO143% ? ?Sec ? 10.23 ? 11.70 ? [...] ? cmH2O ? ? ? 195 ? [facility] ? ?CARDIAC FUNCTION LABORATORY - STRESS TEST SYSTEM REPORT ? * FINAL * ?PHARMACOLOGIC STRESS ECG-NUCLEAR IMAGING NAME: VICKI RANDLE ? CLINIC NBR: [id number] TEST DATE: [id number] AGE: 71, ?OUTPATIENT : [id number] WEIGHT: 113.6kg/249.9lbs, HEIGHT: 185.4cm/73.0inches BMI: 33.0 TEST TYPE: PHARMACOLOGIC STRESS ECG-NUCLEAR IMAGING TEST MODE: PHARMACOLOGIC ?TEST PROTOCOL: REGADENOSON/TREADMILL TEST LOCATION: [place] ?ORDER LOCATION: [facility] REQUESTED BY: ALVIN HUGHES MD ARTIST REPRESENTATIVE: FADI AC GLAZIER SUPERVISOR: JORDAN MEJIA TRAINEE: SUPERVISING PHYSICIAN: DELON WALKER [...] Diagnosis Date - AAA (abdominal aortic aneurysm) ([facility]) 02/06/2012 01/10/17: CT abd 4.8 cm - Actinic keratosis - Acute deep vein thrombosis (DVT) of femoral vein of left lower extremity ([facility]) 03/16/2018 02/19/18--on Eliquis - Benign hypertension 07/13/2015 [...] MD CNOV Observed: 06/12/2018 Status: COMPLETED Source: [place] 10:40 AM [facility] REPOSITORY Office Visit (FAMPWS) VICKI RANDLE ([id number]) 1945 M Date Time Provider Department 06/12/18 [...] CT 10/2017: good post op result --------- [facility] ?[address], ? [place] [address] ?Test Date: ? ? 2017-01-07 Pat Name: ? ? ?VICKI RANDLE ? Department: ? ? Patient ID: ? ?[id number] ?Room: ? Gender: ?Male ?Senior Care Assistant: ? ? : ? 1945 ?Requested By: ? Order Number: ?[id number] ? ? ? Reading MD: ? ?Fadi [...] EDT by Fadi [facility] ? [facility] [place] ? [address] ? [place], [place] [address] ? PFT Lab Report Name: VICKI RANDLE ?ID: [id number] ? Date: 01/07/17 ?Physician: Melina Roblero ? Age: 71 ? Height(in): 73.0 ? Weight(lb): 251 ? Gender: Male ?Race: ? Diagnosis: ?Medication Set 1: ? Dyspnea Rest: No ?Dyspnea Exercise: No ? Cough: No ? Persistent: No ?Productive (cc): ? Smoker: No ?How Long: ? Stopped: ?Cigarettes: No ? Senior Care Assistant: Ciera Muñoz, BUS WASHER ?Temp: ?22 ?PBar: 763 ?PF Reference: ######## Spirometry ?Hb: ?gm/dL ?Ref ? Pre ? Pre ? Post ?Post ?Post ?Harsh ?% Ref ? ? ? Harsh ?% Ref ? ? ? % Chg FVC ?Liters ? ? ?4.88 ?3.59 ?74 ?3.90 ?80 ?9 FEV1 ? ? ? Liters ? ? ?3.59 ?2.60 ?73 ?2.66 ?74 ?2 FEV1/FVC ? % ? 73 ?72 ?68 LXN66-10% ?L/sec ? ? ? 2.69 ?1.83 ?68 ?1.39 ?52 ?-24 SyxFWU48-19 L/sec ? ? ?2.75 ?1.83 ?67 ?2.13 ?77 ?16 PEF ?L/sec ? ? ? 8.91 ?7.92 ?89 ?7.22 ?81 ?-9 KTQ965% ? ?Sec ? 10.23 ? 11.70 ? [...] ? cmH2O ? ? ? 195 ? [facility] ? ?CARDIAC FUNCTION LABORATORY - STRESS TEST SYSTEM REPORT ? * FINAL * ?PHARMACOLOGIC STRESS ECG-NUCLEAR IMAGING NAME: VICKI RANDLE ? CLINIC NBR: [id number] TEST DATE: [id number] AGE: 71, ?OUTPATIENT : [id number] WEIGHT: 113.6kg/249.9lbs, HEIGHT: 185.4cm/73.0inches BMI: 33.0 TEST TYPE: PHARMACOLOGIC STRESS ECG-NUCLEAR IMAGING TEST MODE: PHARMACOLOGIC ?TEST PROTOCOL: REGADENOSON/TREADMILL TEST LOCATION: [place] ?ORDER LOCATION: [facility] REQUESTED BY: ALVIN HUGHES MD ARTIST REPRESENTATIVE: FADI AC GLAZIER SUPERVISOR: JORDAN MEJIA TRAINEE: SUPERVISING PHYSICIAN: DELON WALKER [...] Diagnosis Date - AAA (abdominal aortic aneurysm) ([facility]) 02/06/2012 01/10/17: CT abd 4.8 cm - Actinic keratosis - Acute deep vein thrombosis (DVT) of femoral vein of left lower extremity ([facility]) 03/16/2018 02/19/18--on Eliquis - Benign hypertension 07/13/2015 - Bruit right carotid artery - Esophageal reflux Gastroesophageal reflux - Facet arthritis of lumbar region 06/27/2014 - Hypertrophy of prostate without urinary obstruction and other lower urinary tract symptoms (LUTS) Hypertrophy of the prostate w/o obstruction - Left leg DVT ([facility]) 02/19/2018 - Mixed hyperlipidemia Hyperlipidemia - Neoplasm of skin of hand left cheek, upper arm, ear, forearm, nose - Nodule of right lung 04/17/2012 01/08/2013: CT chest 4 mm, unchanging nodule==suspect benign - Other specified disorder of gallbladder 09/07/07 - Personal history of colonic polyps - Personal history of skin cancer - Pulmonary emphysema ([facility]) 12/31/2016 - Sebaceous cyst - [...] Itching ROSUVASTATIN CALCIUM 03/02/2017 5 - Intolerance JTBHURB-NUJ-RFE REDUCTASE INHIBIT*01/10/2018 17 - Myalgia Date Reviewed: 06/12/2018 Reviewed by: Lorne Velasquez LPN - Fully Assessed Reason for Visit: ED Follow-up [821] Cmt: patient was seen [facility] for blood clot right leg Primary Visit Diagnosis:Acute deep vein thrombosis (DVT) of femoral vein of right lower extremity (HCC) [I82.411] Other Visit Diagnoses:CHAU (dyspnea on exertion) [R06.09] Pulmonary emphysema, unspecified emphysema type (HCC) [J43.9] Order(s):ELIQUIS 5 mg tab(s)Take 1 tablet by mouth twice daily.Disp: 30 tabletRfl: 5 CBC [SQCBC] Order #: [id number] FUTURE XR CHEST 2V FRONTAL/LAT [[id number]] Order #: [id number] FUTURE Prescriptions as of 06/12/2018 Sig: ELIQUIS [...] 06/12/18 CNCO Observed: 06/04/2018 Status: COMPLETED Source: [place] 12:00 AM [facility] REPOSITORY Letter Text n [facility] Department of Family Medicine [address] [place] [address] Vicki Randle [address] [facility] [address] 06/04/2018 Dear Mr. Randle: I noted on [...] PLASTIC SURGERY Observed: 06/03/2018 Status: F Source: [place] VISIT REPORT 10:17 PM [facility] REPOSITORY [facility] [address] [place] [address] OFFICE VISIT Date of Service: 06/03/18 MR#: [id number] Acct: [id number] Name: VICKI RANDLE Rep #: [id number] : 1945 Provider: Francis Dudley MD Age/Sex: 72/M Location: [facility] Status: Signed Intake Vital Signs06/03/18 Height 6 [...] [place] EXTREMITY 5:25 PM [facility] REPOSITORY [facility] Cardi[facility] Services [address] [place] [address] Venous Duplex US, Unilateral 05/22/18 1443 MR#: [id number] Acct: [id number] Name: RAZIAVICKI Rep #: [id number] : 1945 72 From: Nam Hughes MD [...] Dictated: 05/22/18 1443 Date Transcribed: 05/22/18 1724 Track Laborer: Signed EMERGENCY DEPARTMENT Observed: 05/22/2018 Status: F Source: [place] SUMMARY 4:46 PM [facility] REPOSITORY [facility] Medical Records Department [address] [place] [address] Emergency Department Summary 05/22/18 1416 MR#: [id number] Acct: [id number] Name: VICKI RANDLE Rep #: [id number] : 1945 72 From: Mookie Rivero MD [...] extremity DVT This note was generated with Athigo dictation software. It may contain incorrect words, [...] problems, contact your Primary Care Provider. Call [facility] ([phone]) or report to the closest Emergency Room. Call 911 if necessary. 05/22/18 1646 <Electronically signed by Mookie Rivero MD> Date Mookie Rivero MD Cosigner Signature (If Indicated): Date CC: Alvin Hughes III, MD DISCHARGE INSTRUCTION Observed: 05/22/2018 Status: F Source: [place] 4:46 PM [facility] REPOSITORY [facility] Medical Records Department [address] [place] [address] Discharge Instruction 05/22/18 1538 MR#: [id number] Acct: [id number] Name: VICKI RANDLE Rep #: [id number] : 1945 72 From: Mookie Rivero MD PCP: Alvin Hughes III, MD Status: [facility] ER ED Disposition - Plan for ED [...] problems, contact your Primary Care Provider. Call [facility] ([phone]) or report to the closest Emergency Room. Call 911 if necessary. 05/22/18 0828 <Electronically signed by Mookie Rivero MD> Date Mookie Rivero MD Cosigner Signature (If Indicated): Date CC: Alvin Hughes III, MD PROTEIN C DEFIC. Collected: 05/22/2018 Status: F Source: [place] PROFILE 4:08 PM [facility] REPOSITORY TYPE CODE TESTS RESULT OUT OF RANGE REFERENCE UNITS LAB L3100.7310 60-150 % Normal PROTEIN C 83 Performed By: #### L3100.7275, L3100.7325, L3100.8410, L3300.0450, L3410.2000, L4500.2000, L4500.5000 #### [facility] (refer to report for specific site) refer to report for address and phone number PROTEIN C, FUNCTIONAL Collected: 05/22/2018 Status: F Source: [place] 4:08 PM [facility] REPOSITORY TYPE CODE TESTS RESULT OUT OF RANGE REFERENCE UNITS LAB L3100.7325 73-180 % Normal PROT C, 109 Funct Performed By: #### L3100.7275, L3100.7325, L3100.8410, L3300.0450, L3410.2000, L4500.2000, L4500.5000 #### [facility] (refer to report for specific site) refer to report for address and phone number ANTICARDIOLIPIN IGG, IGM Collected: 05/22/2018 Status: F Source: [place] 4:08 PM [facility] REPOSITORY TYPE CODE TESTS RESULT OUT [...] [place] IMMUNOL 4:08 PM [facility] REPOSITORY TYPE CODE TESTS RESULT OUT [...] Diana HAWTHORNE 4:08 PM [facility] REPOSITORY TYPE CODE TESTS RESULT OUT [...] [place] ABDULLAHI 4:08 PM [facility] REPOSITORY TYPE CODE TESTS RESULT OUT OF RANGE REFERENCE UNITS LAB L4500.2100 . Normal FACTOR Comment II,DNA Result Comment: NEGATIVE No mutation identified. Comment: A point mutation ([id number]) in the factor II (prothrombin) gene is [...] mutations. This assay detects only the prothrombin I92050Y mutation and does not measure genetic abnormalities [...] health care providers to discuss results at [phone] ([phone]). Methodology: DNA analysis of the Factor II gene was performed by PCR amplification followed by restriction analysis. The diagnostic sensitivity is >99% for both. All the tests must be combined with clinical information for the most accurate interpretation. Molecular-based testing is highly accurate, but as in any laboratory test, diagnostic errors may occur. This test was developed and its performance characteristics determined by [employer]. It has not been cleared or approved by the Food and Drug Administration. Cynthiat SR, et al. Blood. 1996; 88:5801-2795. Gopi EA. Circulation. 2004; 110:e15-e18. Arden I, et al. Arterioscler Thromb Vasc Biol. 1999; 19:700-703. Rsoio Bhatti, PhD, FACMG Norma Villegas, PhD, FACMG Yaneth Alfredo MCherieS., PhD, [facility] Lani Auguste, PhD, [facility] Rose Marie Solitario, PhD, FACMG Gabriel Ram, PhD, FACMG Performed at: [address] [id number] Train Control Technician: Layton Boyd MD, Phone: [phone] Performed at: [address] [id number] Train Control Technician: Mark Oropeza PhD, Phone: [phone] Performed at: [facility] [address] [place], [place] [id number] Train Control Technician: Shira Berger MD, Phone: [phone] Performed By: #### L3100.7261, L3100.0694, L3100.4610, L3300.0450, L3410.2000, L4500.2000, L4500.5000 #### [facility] (refer to report for specific site) refer to report for address and phone number FACT V LEIDEN Collected: 05/22/2018 Status: F Source: [place] MUTATION 4:08 PM [facility] REPOSITORY TYPE CODE TESTS RESULT OUT [...] the workup for venous thrombosis include the O33830G mutation in the factor II (prothrombin) gene, protein S and C deficiency, and antithrombin deficiencies. Anticardiolipin antibody and lupus anticoagulant analysis may be appropriate for certain patients, as well as homocysteine levels. Contact your local [facility] for information on how to order additional testing if desired. Genetic counselors are available for health care providers to discuss results at [phone] ([phone]). Methodology: DNA analysis of the Factor V gene was performed by allele- specific PCR. The diagnostic sensitivity and specificity is >99% for both. Molecular-based testing is highly accurate, but as in any laboratory test, diagnostic errors may occur. All test results must be combined with clinical information for the most accurate interpretation. This test was developed and its performance characteristics determined by [facility]. It has not been cleared or approved [...] AORTIC/IVC DUPLEX Observed: 05/18/2018 Status: F Source: [place] SCAN 2:40 PM [facility] REPOSITORY [facility] Cardiovascular Services [address] [place] [address] Abd Aortic/IVC Duplex scan 05/18/18 0919 MR#: [id number] Acct: [id number] Name: VICKI RANDLE Rep #: [id number] : 1945 72 From: Nam Hughes MD [...] Aorta IVC Iliac vasculature or bypass grafts 528[address]. Technically difficult due to body habitus and [...] MD Date Dictated: 05/18/18918 Date Transcribed: 05/18/181438 Track Laborer: Signed SURGERY VISIT REPORT Observed: 05/18/2018 Status: F Source: [place] 2:34 PM [facility] REPOSITORY [facility] [address] [place], [place] [address]brian. [address] [place] [address] OFFICE VISIT Date of Service: 05/18/18 MR#: [id number] Acct: [id number] Name: VICKI RANDLE Rep #: [id number] : 1945 Provider: Nam Hughes MD Age/Sex: 72/M Location: [facility] Status: Signed Intake Vital Signs05/18/18 Body Mass Index (BMI) 35.2 Intake Visit Reasons: F/U U/S AAA 05/13/2018 Chief Complaint: AAA repair Ethnic Studies Professor Required: No Is patient in pain?: No [...] the right common femoral artery was a Pender excluder 26 x 14.5 x 12. The contralateral limb was a 20 x 14 sequeira bottom. An additional extension was placed on the right being a 20 x 12 similar sequeira bottom device. At the time of surgery is noted to have persistent flow in his inferior mesenteric artery and in the lumbar. Close follow-up was felt to be pertinent. At the [facility] on November 20, 2017 he had a CTA of the abdomen. Preoperatively his infrarenal abdominal aortic aneurysm was felt to be 4.8 cm. On the most recent examination the angoon sac has a measurement of 4.6 cm. The stent graft appears to be in good position. 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 Very minimal blush is seen within the angoon sac. Of additional note is the patient [...] PLASTIC SURGERY Observed: 05/18/2018 Status: F Source: [place] VISIT REPORT 2:11 PM [facility] REPOSITORY [facility] [address] [place] [address] OFFICE VISIT Date of Service: 05/11/18 MR#: [id number] Acct: [id number] Name: VICKI RANDLE Rep #: [id number] : 1945 Provider: CYNTHIA Nicolas Age/Sex: 72/M Location: [facility] Status: Signed Intake Vital Signs05/11/18 Body Mass Index (BMI) 35.2 05/11/18 Blood Pressure 123/74 H 05/11/18 Blood Pressure Location Lt brachial 05/11/18 Blood Pressure Position Sitting 05/11/18 Respiratory Rate 18 Intake Visit Reasons: post op surgery 04/28/18 Ethnic Studies Professor Required: No Accompanied by: None Is patient [...] 1411 <Electronically signed by Alba E Fidencio CLIENT SUPPORT ADMINISTRATOR-C> Date Alba Brian Nicolas CLIENT SUPPORT ADMINISTRATOR-C 05/16/181910<Electronically signed by Francis Dudley MD> Cosigner Signature: Date (if applicable) Francis Dudley MD CC: AAA SCREENING Observed: 05/13/2018 Status: F Source: [place] 5:01 PM [facility] REPOSITORY [facility] Cardiovascular Services [address] [place] [address] AAA Screening 05/13/18 0839 MR#: [id number] Acct: [id number] Name: VICKI RANDLE Rep #: [id number] : 1945 72 From: Nam Hughes MD Attending Dr: Nam Hughes MD Status: REG CLI Ordering Dr: Nam Hughes MD Date: 05/13/18 Location: [facility] Sex: M C Admitted: Reason For Study: [...] Aorta IVC Iliac vasculature or bypass grafts 88920. Exam performed in department. Interpretation Summary Maximal [...] Date Dictated: 05/13/18 0839 Date Transcribed: 05/13/181700 Track Laborer: Signed OPERATIVE REPORT Observed: 05/07/2018 Status: F Source: [place] 12:06 PM [facility] REPOSITORY [facility] Medical Records Department [address] [place] [address] Operative Report 04/28/182109 MR#: [id number] Acct: [id number] Name: VICKI RANDLE Rep #: [id number] : 1945 72 From: Francis Dudley MD PCP: Alvin Hughes III, MD Status: [facility] [place] [place] Y Location: [facility] Report of Operation Date of Procedure: 04/28/18 [...] were included in a form from the [employer]. 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 Frozen section left postauricular area by earlobe - actinic keratosis with moderate atypia. Frozen section left postauricular area near occipital hairline - actinic keratosis with moderate atypia. Size of skin graft dorsum right hand by index finger - 4.1 x 4.1 cm. oil laboratory analyst: Wanda Borjas. oil laboratory analyst: Den Boyd. Type of Anesthesia:: Local MAC [...] No Code Visit Surgery Charges CPT - 63809 ICD-10 - C44.622, Z85.828, Z87.891 04292 C44.622, Z85.828, Z87.891 22581 L57.0, Z85.828, Z87.891 77372 L57.0, Z85.828, Z87.891 12380 D49.2, Z85.828, Z87.891 65968 D49.2, Z85.828, Z87.891 42599 D49.2, Z85.828, Z87.891 05/07/18 1206 <Electronically signed by Francis Dudley MD> Date Francis Dudley MD CC: Alvin Hughes III, MD; Francis Dudley MD Signed PLASTIC SURGERY Observed: 05/06/2018 Status: F Source: [place] VISIT REPORT 10:01 PM [facility] REPOSITORY [facility] Surgery [address] [place] [address] OFFICE VISIT Date of Service: 05/04/18 MR#: [id number] Acct: [id number] Name: VICKI RANDLE Rep #: [id number] : 1945 Provider: Francis Dudley MD Age/Sex: 72/M Location: [facility] Status: Signed Intake Vital Signs05/04/18 Body Mass Index (BMI) 35.2 05/04/18 Blood Pressure 116/72 05/04/18 Blood Pressure Location Lt brachial 05/04/18 Blood Pressure Position Sitting 05/04/18 Respiratory Rate 18 Intake Visit Reasons: postop surgery 04/28/18 Ethnic Studies Professor Required: No Accompanied by: None Is patient [...] AND PHYSICAL Observed: 04/29/2018 Status: F Source: [place] EXAM 11:00 PM [facility] REPOSITORY [facility] Medical Records Department [address] [place] [address] History and Physical 04/27/18 2321 MR#: [id number] Acct: [id number] Name: VICKI RANDLE Rep #: [id number] : 1945 72 From: Francis Dudley MD PCP: Otis PAZ MD,Alvin Status: DEP [facility] Y Location: [facility] History and Physical Date of Admission: 04/28/18 [...] were included in a form from the [employer]. 04/29/18 2300 <Electronically signed by Francis Dudley MD> Date Francis Dudley MD Cosigner Signature: Date (if applicable) CC: Alvin Hughes III, MD; Francis Dudley MD Signed DISCHARGE INSTRUCTION Observed: 04/28/2018 Status: F Source: [place] 11:25 AM [facility] REPOSITORY [facility] Medical Records Department [address] [place] [address] Instructions for Home/Discharge Instructions 04/28/18 1120 MR#: [id number] Acct: [id number] Name: VICKI RANDLE Rep #: [id number] : 1945 72 From: Francis Dudley MD PCP: Alvin Hughes III, MD Status: REG [facility] You will use the following diet at [...] With: Francis Dudley MD When: friday05/04/18. call [phone] for appt. Proposed Discharge Date: 04/28/18 04/28/18 1125 <Electronically signed by Francis Dudley MD> Date Francis Dudley MD CC: Alvin Hughes III, MD LESION (CHOOSE SITE) Observed: 04/28/2018 Status: F Source: [place] 12:00 AM [facility] REPOSITORY Patient: VICKI RANDLE : 1945 (72/M) Acct Num: [id number] Phys: Francis Dudley MD Unit Num: [id number] Loc: [facility] Specimen: [id number] Received: 04/28/18900 Spec Type: Lesion TISSUES 1 [...] one cassette. / SJ:rg 04/28/18 TC:0 CPT: 80998 x8, 62162 x3 HEADER OPERATION: Excision lesion dorsum right [...] on file> Performed By: #### PLES #### [facility] [address] [place], [address] CBC Collected: 03/16/2018 Status: F Source: [place] 3:43 PM [facility] REPOSITORY TYPE CODE TESTS RESULT OUT [...] nRBC <0.01 Performed By: #### CBC #### [facility] [address] [place], [place] [address] PROGRESS Observed: 03/16/2018 Status: COMPLETED Source: [place] 2:54 PM [facility] REPOSITORY HNO ID: [id number] Author: Alvin Hughes III Service: (none) Author [...] reflux - Facet arthritis of lumbar region ([facility]) 06/27/2014 - Hypertrophy of prostate without urinary obstruction and other lower urinary tract symptoms (LUTS) Hypertrophy of the prostate w/o obstruction - Left leg DVT ([facility]) 02/19/2018 - Mixed hyperlipidemia Hyperlipidemia - Neoplasm of skin of hand left cheek, upper arm, ear, forearm, nose - Nodule of right lung 04/17/2012 01/08/2013: CT chest 4 mm, unchanging nodule==suspect benign - Other specified disorder of gallbladder 09/07/07 - Personal history of colonic polyps - Personal history of skin cancer - Pulmonary emphysema ([facility]) 12/31/2016 - Sebaceous cyst - [...] MD PROGRESS Observed: 03/16/2018 Status: COMPLETED Source: [place] 2:49 PM [facility] [place] REPOSITORY HNO ID: [id number] Author: Sera Omalley) DADA Lee Service: (none) Author Type: Crotch Breaker Type: Progress Notes Filed: 03/16/2018 5:49 PM Note Text: 72 year old male here for INACTIVATED INFLUENZA VACCINE. 9619-7069 Season Patient is identified by name and date of : Yes [] CONTRAINDICATIONS color enhanced section Age less than 6 months? No Allergy to eggs, chicken, chicken feathers, or chicken dander? No Allergy to thimerosal (a preservative) or formaldehyde, gelatin? No History of severe reaction to any vaccine component or a previous dose of influenza vaccination? 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 Yes See immunization activity in [facility] for details of immunizations adminstered today. Patient age: [age] year old For The 8003-7258 Flu Season 6-35 months old: Fluzone 0.25 [...] 03/16/2018 Status: COMPLETED Source: [place] 2:40 PM [facility] REPOSITORY Office Visit (FAMPWS) VICKI RANDLE ([id number]) 1945 M Date Time Provider Department 03/16/18 [...] dose of influenza vaccination? 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 Yes See immunization activity in [facility] for details of immunizations adminstered today. Patient age: [age] year old For The 6185-2271 Flu Season 6-35 months old: Fluzone 0.25 [...] Diagnosis Date - AAA (abdominal aortic aneurysm) ([facility]) 02/06/2012 01/10/17: CT abd 4.8 cm - Actinic keratosis - Benign hypertension 07/13/2015 - Bruit right carotid artery - Esophageal reflux Gastroesophageal reflux - Facet arthritis of lumbar region ([facility]) 06/27/2014 - Hypertrophy of prostate without urinary obstruction and other lower urinary tract symptoms (LUTS) Hypertrophy of the prostate w/o obstruction - Left leg DVT ([facility]) 02/19/2018 - Mixed hyperlipidemia Hyperlipidemia - Neoplasm of skin of hand left cheek, upper arm, ear, forearm, nose - Nodule of right lung 04/17/2012 01/08/2013: CT chest 4 mm, unchanging nodule==suspect benign - Other specified disorder of gallbladder 09/07/07 - Personal history of colonic polyps - Personal history of skin cancer - Pulmonary emphysema ([facility]) 12/31/2016 - Sebaceous cyst - [...] Itching ROSUVASTATIN CALCIUM 03/02/2017 5 - Intolerance ZTKNAYR-ZAV-DBG REDUCTASE INHIBIT*01/10/2018 17 - Myalgia Date Reviewed: 03/16/2018 Reviewed by: [facility] DADA Lee - Fully Assessed Reason for [...] [E78.5] Order(s):INFLUENZA SEASONAL HIGH DOSE AGE 65+ [30587UYR] Order #: [id number] CBC [SQCBC] Order #: [id number] FUTURE LIPID PANEL BASIC [SQLIPB] Order #: [id number] FUTURE Prescriptions as of 03/16/2018 Sig: FINASTERIDE [...] EMERGENCY DEPARTMENT Observed: 02/20/2018 Status: F Source: [place] SUMMARY 12:51 AM [facility] Medical Records Department [address] [place] [address] Emergency Department Summary 02/19/182110 MR#: [id number] Acct: [id number] Name: VICKI RANDLE Rep #: [id number] : 1945 72 From: Vicki Bull MD [...] of anticoagulation This note was generated with Athigo dictation software. It may contain incorrect words, [...] your Primary Care Provider. Call [facility] ([phone]) or report to the closest Emergency Room. Call 911 if necessary. 02/20/18 0051 <Electronically signed by Vicki Bull MD> Date Vicki Bull MD Cosigner Signature (If Indicated): Date CC: Alvin Hughes III, MD VENOUS DUPLEX Observed: 02/19/2018 Status: F Source: [place] IMAG/DANO EXTREM 7:31 PM [facility] REPOSITORY [facility] Imaging Services [address] [address] Venous Duplex Imag/Dano Extrem MR#: [id number] Acct: [id number] Name: VICKI RANDLE Rep #: [id number] : 1945 M 72 From: Mookie Macario MD PCP: Alvin Hughes III, MD Status: REG ER Study: Venous Duplex Imag/Dano Extrem Date of Exam: 02/19/18 Exam# [id number] Ordering Dr: Vicki Bull MD STUDY: VENOUS [...] CC: Alvin Hughes III, MD; Vicki Bull Track Laborer: Signed PLASTIC SURGERY Observed: 01/25/2018 Status: F Source: [place] VISIT REPORT 7:46 PM [facility] REPOSITORY [facility] [address] [facility] [address] [place] [address] OFFICE VISIT Date of Service: 01/07/18 MR#: [id number] Acct: [id number] Name: VICKI RANDLE Rep #: [id number] : 1945 Provider: Francis Dudley MD Age/Sex: 72/M Location: [facility] Status: Signed Intake Vital Signs01/07/18 Weight: 261 lb 4 oz 01/07/18 Blood Pressure 105/67 01/07/18 Blood Pressure Location Lt brachial 01/07/18 Blood Pressure Position Sitting 01/07/18 Respiratory Rate 18 Intake Visit Reasons: evaluation for TBSE Ethnic Studies Professor Required: No Accompanied by: None Is patient [...] were included in a form from the [place] [employer]. Assessment AND Plan [...] MD PROGRESS Observed: 01/16/2018 Status: COMPLETED Source: [place] 9:40 AM [facility] [place] REPOSITORY [facility] ID: [id number] Author: Chan Menon (Pa) Service: (none) Author Type: Physician Photograph Inspector Type: Progress Notes Filed: 01/26/2018 4:00 PM Note Text: [facility] CC: BPH Follow-Up HPI Vicki Randle is [...] [Atorvastatin Calcium]; Medical Tape [Other]; Rosuvastatin Calcium; Tiuegdu-Kry-Fye Reductase Inhibitors CURRENT MEDICATIONS: Current Outpatient Prescriptions: [...] signed CNOV Observed: 01/16/2018 Status: COMPLETED Source: [place] 9:00 AM [facility] REPOSITORY Office Visit (UROLWS) VICKI RANDLE ([id number]) 1945 M Date Time Provider Department 01/16/18 9:00 AM CHAN MENON) UROLWS During your visit today, we recorded the following information about you: Pulse Blood pressure Weight 64/minute 124/60 118.4 kg OLIVER Parnell 01/26/2018 4:00 PM Signed [facility] CC: BPH Follow-Up HPI Vicki Randle is [...] [Atorvastatin Calcium]; Medical Tape [Other]; Rosuvastatin Calcium; Bixqzpp-Omo-Qdt Reductase Inhibitors CURRENT MEDICATIONS: Current Outpatient Prescriptions: [...] Itching ROSUVASTATIN CALCIUM 03/02/2017 5 - Intolerance MNHGRXX-API-SPG REDUCTASE INHIBIT*01/10/2018 17 - Myalgia Date Reviewed: 01/16/2018 Reviewed by: Ashley Rendon Ma - Fully Assessed Reason for Visit: Follow Up [171] BPH with LUTS [Other] Primary Visit Diagnosis:BPH with obstruction/lower urinary tract symptoms [N40.1, N13.8] Order(s):UA DIP, URINE (POC) [[id number]] Order #: [id number]. #:[id number] PSA/PROSTSPECAG DIAG [SQPSA] Order #: [id number] FUTURE Prescriptions as of 01/16/2018 Sig: FINASTERIDE [...] 01/26/18 PROGRESS Observed: 01/10/2018 Status: COMPLETED Source: [place] 1:25 PM [facility] REPOSITORY HNO ID: [id number] Author: Alvin Hughes III Service: (none) Author Type: Physician Type: Progress Notes Filed: 01/10/2018 1:25 PM Note Text: The bad LDL cholesterol is out of control but the patient cannot tolerate statin medication. I recommend a low-fat diet and exercise as able. Alvin Hughes III, MD, FAAFP PROGRESS Observed: 01/09/2018 Status: COMPLETED Source: [place] 6:16 PM [facility] REPOSITORY HNO ID: [id number] Author: Berta Chow (Pa) Service: (none) Author Type: Physician Photograph Inspector Type: Progress Notes Filed: 01/09/2018 6:22 PM Note Text: FOLLOW UP VISIT - ENDOSCOPY NAME: Vicki Randle [facility] NO.: [id number] DATE OF SERVICE: 01/06/2018 : 1945 REFERRING [...] with more than 50% of the total cgvf-cb-mgus time of the visit in counseling / coordination of care. Berta Chow PA-C LIPID PANEL, BASIC Collected: 01/09/2018 Status: F Source: [place] 10:59 AM [facility] REPOSITORY TYPE [...] Desk Reference: [facility]. National Institutes of Health. 2001: NIH Publication No. 01-3305. 2. An International Atherosclerosis Society position paper: global recommendations for the management of dyslipidemia: executive summary, Atherosclerosis. 2014: 232(2):410-413. Performed By: #### LIPB #### [facility] [address] [place], [place] [address] COMP METABOLIC PANEL Collected: 01/09/2018 Status: F Source: [place] 10:58 AM [facility] REPOSITORY TYPE CODE [...] mg/dL Glucose High 100 Result Comment: The [place] Diabetes Association (ADA) provides guidance for cutoff [...] Standards of Medical Care in Diabetes 2016, [place] Diabetes Association. Diabetes Care. 2016.39(Suppl 1). LAB [...] GFR. Performed By: #### CMP, PSA #### [facility] [address] [place], [place] [address] PSA, DIAGNOSTIC Collected: 01/09/2018 Status: F Source: [place] 10:58 AM [facility] REPOSITORY TYPE CODE TESTS RESULT OUT OF REFERENCE UNITS RANGE LAB PSA 0.00-2.59 ng/mL PSA, Diagnostic 1.80 Result Comment: Total PSA test methodology used is the Electrochemiluminescence Immunoassay. Performed By: #### CMP, PSA #### [facility] [address] [place], [place] [address] PROGRESS Observed: 01/09/2018 Status: COMPLETED Source: [place] 10:31 AM [facility] REPOSITORY HNO ID: [id number] Author: Alvin Hughes III Service: (none) Author [...] office 6 mos and as needed Alvin Hughse III MD CNOV Observed: 01/09/2018 Status: COMPLETED Source: [place] 10:20 AM [facility] REPOSITORY Office Visit (FAMPWS) VICKI RANDLE ([id number]) 1945 M Date Time Provider Department 01/09/18 [...] III MD Referring Provider: ALVIN HUGHES III [[id number]] Allergies As of Date: 01/09/2018 Noted Allergy Reaction LIPITOR (ATORVASTATIN CALCIUM) 03/11/2005 5 - Intolerance medical tape [Other] 03/11/2005 9 - Itching ROSUVASTATIN CALCIUM 03/02/2017 5 - Intolerance Date Reviewed: 01/09/2018 Reviewed by: Sera ([facility]) DADA Lee - Fully Assessed Primary Visit Diagnosis:Hyperlipidemia, unspecified hyperlipidemia type [E78.5] Other Visit Diagnoses:Abdominal aortic aneurysm (AAA) without rupture (HCC) [I71.4] Benign hypertension [I10] Pulmonary emphysema, unspecified emphysema type (HCC) [J43.9] Order(s):COMP METABOLIC PANEL [SQCMP] Order #: [id number] FUTURE Prescriptions as of 01/09/2018 Sig: FINASTERIDE [...] 01/09/18 CNOV Observed: 01/06/2018 Status: COMPLETED Source: [place] 1:00 PM [facility] REPOSITORY Office Visit (GENSWS) VICKI RANDLE ([id number]) 1945 M Date Time Provider Department 01/06/18 1:00 PM BERTA CHOW (PA) GENMARNIE During your visit today, we recorded the following information about you: Berta Chow PA-C 01/06/2018 1:25 PM Signed The following instructions are important for you related to your office visit today with the [facility] General Surgeons. INSTRUCTIONS FOLLOWING A [...] you should contact our office immediately @ [phone] and ask to be transferred to the General Surgery department. Berta Chow PA-C 01/09/2018 6:22 PM Signed FOLLOW UP VISIT - ENDOSCOPY NAME: Vicki Randle CLINIC NO.: [id number] DATE OF SERVICE: 01/06/2018 : 1945 REFERRING [...] with more than 50% of the total csqp-fx-ykwh time of the visit in counseling / coordination of care. Berta Chow PA-C Referring Provider: ALVIN HUGHES III [[id number]] Allergies As of Date: 01/06/2018 Noted Allergy [...] to your office visit today with the [facility] General Surgeons. INSTRUCTIONS FOLLOWING A [...] you should contact our office immediately @ [phone] and ask to be transferred to the General Surgery department. Follow-up and Disposition History Recorded Encounter Status:Closed by BERTA CHOW PA-C on 01/09/18 PROGRESS Observed: 12/30/2017 Status: COMPLETED Source: [place] 8:58 PM [facility] REPOSITORY HNO ID: [id number] Author: Andres De Oliveira Service: (none) Author Type: Physician Type: Progress Notes Filed: 12/30/2017 9:02 PM Note Text: OPERATIVE NOTATION FOR [facility] SURGICAL PROCEDURE. December 29, 2017 Vicki Randle 1945 [id number] male PROCEDURE: COLONOSCOPY WITH SNARE POLYPECTOMY- 51717-060 SURGEON: Stephanie De Oliveira M.D. FACS GLAZIER SUPERVISOR: None DEPT: WQ PROVIDER: [id number] De Oliveira MD POS: [id number] DIAGNOSIS: (D12.5) Polyp of sigmoid colon, unspecified type (primary encounter diagnosis) ASA CLASS: 3 - Severe FINDINGS: polyp at 20cm COMPLICATIONS: None PMHx - PAST MEDICAL HISTORY Diagnosis Date - AAA (abdominal aortic aneurysm) ([facility]) 02/06/2012 01/10/17: CT abd 4.8 cm - Benign hypertension 07/13/2015 - Bruit right carotid artery - Esophageal reflux Gastroesophageal reflux - Facet arthritis of lumbar region ([facility]) 06/27/2014 - Hypertrophy of prostate without urinary obstruction and other lower urinary tract symptoms (LUTS) Hypertrophy of the prostate w/o obstruction - Mixed hyperlipidemia Hyperlipidemia - Nodule of right lung 04/17/2012 - Other specified disorder of gallbladder 09/07/07 - Personal history of colonic polyps - Pulmonary emphysema ([facility]) 12/31/2016 - Sebaceous cyst - Situational depression 07/03/2016 - Skin cancer Non-melanoma. - Squamous cell carcinoma 04/04/2015 See scanned documents - Venous insufficiency of both lower extremities 07/01/2014 COMORBIDITIES - COPD and HTN Post Op Occurrences - None Wound Classification - Clean Contaminated Operative note dictated in the [facility] dictation system. Andres De Oliveira MD OPERATIVE REPORT Observed: 12/29/2017 Status: F Source: [place] 5:54 PM [facility] REPOSITORY [facility] Medical Records Department [address] [place] [address] Operative Report 12/29/17 1346 MR#: [id number] Acct: [id number] Name: VICKI RANDLE Rep #: [id number] : 1945 72 From: Andres De Oliveira MD PCP: Alvin Hughes III, MD Status: DEP [facility] Y Location: [place] Report of Operation Date [...] condition. the patient's follow-up with my physician's quality assurance assistant Berta Chow in one week for pathology results. 12/29/171753 <Electronically signed by Andres De Oliveira MD> Date Andres De Oliveira MD CC: Alvin Hughes III, MD; Andres De Oliveira MD Signed COLON BIOPSY (CHOOSE Observed: 12/29/2017 Status: F Source: [place] SITE) 1:15 PM [facility] REPOSITORY Patient: VICKI RANDLE : 1945 (72/M) Acct Num: [id number] Phys: Andres De Oliveira MD Unit Num: [id number] Loc: [place] Specimen: [id number] Received: 12/29/17 - 1420 Spec Type: COLON BX TISSUES TISSUES: COLON BIOPSY GROSS DESCRIPTION Received in fixative is one container labeled with the patient's name and designated 20 cm polyp. The specimen consists of a piece of barkley-pink polyp measuring 0.7 x 0.5 x 0.5 cm. The entire specimen is submitted in one cassette. / SJ:nguyễn 12/30/17 TC:1 CPT: 21688 HEADER OPERATION: Colonoscopy (MAC) PRE-OP DIAGNOSIS: Screening TISSUE SUBMITTED: 20 cm polyp MICROSCOPIC DESCRIPTION Slides are reviewed. MICROSCOPIC DIAGNOSIS Colon, 20 cm polyp, polypectomy: Tubular adenoma. SJ:nguyễn 12/31/17 Signed Lambert Jain 12/31/17 <signature on file> Performed By: #### PCOLBX #### [facility] [address] [place], [address] HISTORY AND PHYSICAL Observed: 12/29/2017 Status: F Source: [place] EXAM 11:54 AM [facility] REPOSITORY [facility] Medical Records Department [address] [place] [address] History and Physical 12/29/17 1154 MR#: [id number] Acct: [id number] Name: VICKI RANDLE Rep #: [id number] : 1945 72 From: Andres De Oliveira MD PCP: Alvin Hughes III, MD Status: REG [facility] Y Location: [place] [address] History and Physical Date of Admission: 12/29/17 [...] HISTORY Diagnosis Date AAA (abdominal aortic aneurysm) ([facility]) 02/06/201212/31: CT abd 4.8 cm Benign hypertension 07/13/2015 Bruit right carotid artery Eso phageal reflux Gastroesophageal reflux Facet arthritis of lumbar region ([facility]) 06/27/2014 Hypertrophy of prostate without urinary obstruction and other lower urinary tract symptoms (LUTS) Hypertrophy of the prostate w/o obstruction Mixed hyperlipidemia Hyperlipid emia Nodule of right lung 04/17/2012 Other specified disorder of gallbladder 09/07/07 Pe rsonal history of colonic polyps Pulmonary emphysema ([facility]) 12/31/2016 Sebaceous cyst Situational depression 07/03/2016 Skin cancer Non-melanoma. 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 December 29, 2017 Vicki Randle 1945 [id number] male PROCEDURE: COLONOSCOPY WITH SNARE POLYPECTOMY- 38909-208 SURGEON: Stephanie De Oliveira M.D. FACS GLAZIER SUPERVISOR: None DEPT: WQ PROVIDER: [id number] De Oliveira MD POS: [id number] DIAGNOSIS: (D12.5) Polyp of sigmoid colon, unspecified type (primary encounter diagnosis) ASA CLASS: 3 - Severe FINDINGS: polyp at 20cm COMPLICATIONS: None PMHx - PAST MEDICAL HISTORY Diagnosis Date - AAA (abdominal aortic aneurysm) ([facility]) 02/06/2012 01/10/17: CT abd 4.8 cm - Benign hypertension 07/13/2015 - Bruit right carotid artery - Esophageal reflux Gastroesophageal reflux - Facet arthritis of lumbar region ([facility]) 06/27/2014 - Hypertrophy of prostate without urinary obstruction and other lower urinary tract symptoms (LUTS) Hypertrophy of the prostate w/o obstruction - Mixed hyperlipidemia Hyperlipidemia - Nodule of right lung 04/17/2012 - Other specified disorder of gallbladder 09/07/07 - Personal history of colonic polyps - Pulmonary emphysema ([facility]) 12/31/2016 - Sebaceous cyst - Situational depression 07/03/2016 - Skin cancer Non-melanoma. - Squamous cell carcinoma 04/04/2015 See scanned documents - Venous insufficiency of both lower extremities 07/01/2014 COMORBIDITIES - COPD and HTN Post Op Occurrences - None Wound Classification - Clean Contaminated Operative note dictated in the [facility] dictation system. Andres De Oliveira MD Encounter Status:Closed by ANDRES DE OLIVEIRA MD on 12/30/17 CNPTOUTREACH Observed: 12/23/2017 Status: COMPLETED Source: [place] 12:00 AM [facility] REPOSITORY Patient Outreach (FAMPST) VICKI RANDLE ([id number]) 1945 M Date Time Provider Department 12/23/17 [...] [Z79.899] Order(s):BASIC METABOLIC PNL [SQBMP] Order #: [id number] FUTURE LIPID PANEL BASIC [SQLIPB] Order #: [id number] FUTURE Prescriptions as of 12/23/2017 Sig: FINASTERIDE [...] 03/13/18 PROGRESS Observed: 11/28/2017 Status: COMPLETED Source: [place] 1:43 PM [facility] [place] REPOSITORY HNO ID: [id number] Author: Berta Chow (Pa) Service: (none) Author Type: Physician Photograph Inspector Type: Progress Notes Filed: 11/28/2017 2:57 PM [...] Occupational History 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[employer] [facility] [place] Social History Main Topics Smoking status: [...] MEHDI Ryder Observed: 11/28/2017 Status: COMPLETED Source: [place] 1:30 PM [facility] REPOSITORY Office Visit (GENSWS) VICKI RANDLE ([id number]) 1945 M Date Time Provider Department 11/28/17 [...] 11/28/2017 2:57 PM Signed HISTORY AND PHYSICAL Vikci Randle 1945 REFERRING PHYSICIAN: Alvin Hughes III, [...] reflux - Facet arthritis of lumbar region ([facility]) 06/27/2014 - Hypertrophy of prostate without urinary obstruction and other lower urinary tract symptoms (LUTS) Hypertrophy of the prostate w/o obstruction - Mixed hyperlipidemia Hyperlipidemia - Nodule of right lung 04/17/2012 - Other specified disorder of gallbladder 09/07/07 - Personal history of colonic polyps - Pulmonary emphysema ([facility]) 12/31/2016 - Sebaceous cyst - Situational depression 07/03/2016 - Skin cancer Non-melanoma. 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 [address] [place] [address] OFFICE VISIT Date of Service: 11/26/17 MR#: [id number] Acct: [id number] Name: VICKI RANDLE Rep #: [id number] : 1945 Provider: Nam Hughes MD Age/Sex: 72/M Location: [facility] Status: Signed Intake Vital Signs11/26/17 Blood Pressure 143/86 11/26/17 Blood Pressure Location Lt brachial 11/26/17 Blood Pressure Position Sitting Intake Visit Reasons: F/U CT 11/20 Results/AAA Graft stent 09/09/17 Chief Complaint: AAA repair Ethnic Studies Professor Required: No Is patient in pain?: No [...] 09/10/17 [Rx Confirmed 11/26/17] Hydrocodone Bitart/Apap 5-325 [[place] 5/325] 1 - 2 tab PO Q4H [...] the right common femoral artery was a Pender excluder 26 x 14.5 x 12. The contralateral limb was a 20 x 14 sequeira bottom. An additional extension was placed on the right being a 20 x 12 similar sequeira bottom device. At the time of surgery is noted to have persistent flow in his inferior mesenteric artery and in the lumbar. Close follow-up was felt to be pertinent. At the [facility] on November 20, 2017 he had a CTA of the abdomen. Preoperatively his infrarenal abdominal aortic aneurysm was felt to be 4.8 cm. On the most recent examination the [place]on sac has a measurement of 4.6 cm. The stent graft appears to be in good position. 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 Very minimal blush is seen within the angoon sac. Of additional note is the patient [...] do not appear to be affecting the [place] aneurysmal sac size. I recommended the patient [...] Source: [place] 1:18 PM [facility] REPOSITORY TYPE CODE TESTS RESULT OUT OF RANGE REFERENCE UNITS LAB L9100.0210 0.70-1.30 mg/dL Normal CREATININE WB 0.9 LAB L9100.0220 >60 mL/min EGFR WB Normal > 60.0000 Performed By: #### L9100.0200 #### [facility] Point [facility] Care [address] [place] [address] PROGRESS Observed: 11/20/2017 Status: COMPLETED Source: [place] 10:39 AM [facility] REPOSITORY O ID: [id number] Author: Laura Thomas LPN Service: (none) Author [...] LPN CNNURSE Observed: 11/20/2017 Status: COMPLETED Source: [place] 10:30 AM [facility] REPOSITORY Nurse Visit (ALIAPWS) VICKI RANDLE ([id number]) 1945 M Date Time Provider Department 11/20/17 10:30 AM [place] NURSE ALIAPWS During your visit today, we [...] Thomas LPN Referring Provider: ALVIN HUGHES III [[id number]] Allergies As of Date: 11/20/2017 Noted Allergy [...] [place] CONTRAST 12:00 AM [facility] REPOSITORY [facility] Imaging Services [address] [place] [address] CTA Abdomen W/WO Contrast MR#: [id number] Acct: [id number] Name: VICKI RANDLE Rep #: [id number] : 1945 72 From: Andres Jay MD PCP: Alvin Hughes III, MD Status: REG CLI Study: CTA Abdomen W/WO Contrast Date of Exam: 11/20/17 Exam# [id number] Ordering Dr: Nam Hughes MD STUDY: CTA [...] There is no hyperdense thrombus within the angoon aneurysm sac. The angoon sac has a maximum diameter of 4.6 cm, fusiform shape with a length of 6.4 cm. There is evidence of very tiny type II endoleak involving inferior mesenteric artery, and involving a lumbar artery, very minimal blush of contrast within the angoon sac. CT/CTA Abdomen W/WO Contrast IMPRESSION: Appropriate positioning of the aortoiliac stent. Minimal type II endoleak's. Small left subpulmonic effusion with left lung base atelectasis. Electronically Signed: Andres Jay, at 8:38 EDT Tel , Service support , CC: Alvin Hughse III, MD; Nam Hughes MD Track Laborer: Signed CNNURSE Observed: 11/07/2017 Status: COMPLETED Source: [place] 10:00 AM [facility] REPOSITORY Nurse Visit (FAMPWS) VICKI RANDLE ([id number]) 1945 M Date Time Provider Department 11/07/17 10:00 AM [place] [facility] visit today, we recorded the [...] Bland LPN Referring Provider: ALVIN HUGHES III [[id number]] Allergies As of Date: 11/07/2017 Noted Allergy [...] 11/07/17 PROGRESS Observed: 11/07/2017 Status: COMPLETED Source: [place] 9:52 AM [facility] REPOSITORY HNO ID: [id number] Author: Arlet Bland LPN Service: (none) Author [...] LPN PROGRESS Observed: 10/21/2017 Status: COMPLETED Source: [place] 10:24 AM [facility] REPOSITORY HNO ID: [id number] Author: Arlet Bland LPN Service: (none) Author [...] LPN CNNURSE Observed: 10/21/2017 Status: COMPLETED Source: [place] 10:15 AM [facility] REPOSITORY Nurse Visit (FAMPWS) VICKI RANDLE ([id number]) 1945 M Date Time Provider Department 10/21/17 10:15 AM [place] [facility] During your visit today, we recorded the [...] Bland LPN Referring Provider: ALVIN HUGHES III [[id number]] Allergies As of Date: 10/21/2017 Noted Allergy [...] 10/21/17 PROGRESS Observed: 10/01/2017 Status: COMPLETED Source: [place] 1:23 PM [facility] [place] REPOSITORY HNO ID: [id number] Author: Alvin Hughes III Service: (none) Author [...] Diagnosis Date - AAA (abdominal aortic aneurysm) ([facility]) 02/06/2012 01/10/17: CT abd 4.8 cm - Benign hypertension 07/13/2015 - Bruit right carotid artery - Esophageal reflux Gastroesophageal reflux - Facet arthritis of lumbar region ([facility]) 06/27/2014 - Hypertrophy of prostate without urinary obstruction and other lower urinary tract symptoms (LUTS) Hypertrophy of the prostate w/o obstruction - Mixed hyperlipidemia Hyperlipidemia - Nodule of right lung 04/17/2012 - Other specified disorder of gallbladder 09/07/07 - Personal history of colonic polyps - Pulmonary emphysema ([facility]) 12/31/2016 - Sebaceous cyst - [...] MD CNOV Observed: 10/01/2017 Status: COMPLETED Source: [place] 1:20 PM [facility] REPOSITORY Office Visit (FAMPWS) VICKI RANDLE ([id number]) 1945 M Date Time Provider Department 10/01/17 [...] Diagnosis Date - AAA (abdominal aortic aneurysm) ([facility]) 02/06/2012 01/10/17: CT abd 4.8 cm - Benign hypertension 07/13/2015 - Bruit right carotid artery - Esophageal reflux Gastroesophageal reflux - Facet arthritis of lumbar region ([facility]) 06/27/2014 - Hypertrophy of prostate without urinary obstruction and other lower urinary tract symptoms (LUTS) Hypertrophy of the prostate w/o obstruction - Mixed hyperlipidemia Hyperlipidemia - Nodule of right lung 04/17/2012 - Other specified disorder of gallbladder 09/07/07 - Personal history of colonic polyps - Pulmonary emphysema ([facility]) 12/31/2016 - Sebaceous cyst - [...] III MD Referring Provider: ALVIN HUGHES III [[id number]] Allergies As of Date: 10/01/2017 Noted Allergy Reaction LIPITOR (ATORVASTATIN CALCIUM) 03/11/2005 5 - Intolerance medical tape [Other] 03/11/2005 9 - Itching ROSUVASTATIN CALCIUM 03/02/2017 5 - Intolerance Date Reviewed: 10/01/2017 Reviewed by: Neav Joseph LPN - Fully Assessed Reason for [...] VISIT REPORT Observed: 09/22/2017 Status: F Source: [place] 4:05 PM [facility] REPOSITORY [facility] [address] [place] [address] [address] [place] [address] OFFICE VISIT Date of Service: 09/22/17 MR#: [id number] Acct: [id number] Name: VICKI RANDLE Rep #: [id number] : 1945 Provider: Nam Hughes MD Age/Sex: 72/M Location: [facility] Status: Signed Intake Vital Signs09/22/17 Blood Pressure 112/69 09/22/17 Blood Pressure Location Rt brachial 09/22/17 Blood Pressure Position Sitting Intake Visit Reasons: F/U AAA GRAFT STENT 09/09/2017 Chief Complaint: AAA repair Ethnic Studies Professor Required: No Is patient in pain?: No [...] 09/10/17 [Rx Confirmed 09/22/17] Hydrocodone Bitart/Apap 5-325 [[place] 5/325] 1 - 2 tab PO Q4H [...] right common femoral artery and was a Pender excluder 26 x 14.5 x 12 cm. [...] Observed: 09/10/2017 Status: F Source: [place] 8:58 [facility] Medical Records Department [address] [place] [address] Instructions for Home/Discharge Instructions 09/10/17 0854 MR#: [id number] Acct: [id number] Name: VICKI RANDLE Rep #: [id number] : 1945 72 From: Berta Barker PA-C [...] BID #60 tab 09/10/17 Hydrocodone Bitart/Apap 5-325 [[place] 5/325] 1 - 2 tablet PO Q4H PRN PRN 3 Days #10 tablet 09/10/17 The following prescriptions were given: Hydrocodone Bitart/Apap 5-325 [[place] 5/325] 1 - 2 tablet PO Q4H PRN PRN 3 Days #10 tablet PRN Reason: Pain Amlodipine [Norvasc] 10 mg PO DAILY #30 tab Carvedilol [Coreg (Beta Junito)] 3.125 mg PO BID #60 tab Primary Care Physician: Alvin Hughes III, MD [Primary Care Provider] - Please Follow Up With: Nam Hughes MD - [phone] When: 10 days Proposed Discharge Date: 09/10/17 09/10/17 0858 <Electronically signed by Berta Barker PA-C> Date Berta Barker PA-C CC: Gurjit Ohara MD; Alvin Hughes III, MD OPERATIVE REPORT Observed: 09/10/2017 Status: F Source: [place] 5:53 AM [facility] REPOSITORY [facility] Medical Records Department [address] [place] [address] [place] [address] Operative Report 09/09/17 0658 MR#: [id number] Acct: [id number] Name: VICKI RANDLE Rep #: [id number] : 1945 72 From: Nam Hughes MD [...] singlewall needle. Seldinger wire technique performed. A Citizen [place] short sheath dilator was inserted. Then 4 separate Perclose devices were placed over an 035 J-wire. These were performed at 2:00 8:00 positions and 10:00 4:00 positions. Having secured those then used the J-wire placed a pigtail catheter into the abdominal aorta proximal to the aneurysm then placed on Anplats wires bilaterally placed a 12 [place] sheath on the left and a 16 [place] sheath on the right. The main body 26 x 14.5 x 12 cm Pender excluder device was placed via the right common femoral. Reference number is [id number]. Serial #[id number]. An additional device is used where extension devices. Reference number [facility] 403502. Serial #[id number]. The additional device was reference number PLC [id number]. Serial #[id number]. A pigtail catheter with marking slots were placed from the left groin. Using Isovue contrast a AP aortogram was obtained with 12 of cc angulation. Bilateral renal arteries are identified. The main body device was then deployed via the right common femoral groin. Good positioning was achieved. The contralateral 12 [place] sheath was then withdrawn and using a 5 [place] Kumpe catheter to 035 angled Glidewire access [...] after the placement of the original 8 Citizen [place] sheaths that the patient received 12,000 units [...] Source: [place] 4:00 AM [facility] REPOSITORY TYPE CODE TESTS RESULT OUT [...] Lymph 1.39 Performed By: #### L100.0100 #### [facility] [address] [place], [place], [address] BASIC METABOLIC Collected: 09/10/2017 Status: F Source: [place] PROFILE ([facility]) 4:00 AM [facility] REPOSITORY TYPE CODE TESTS RESULT OUT [...] GAP 7 Performed By: #### L500.2500 #### [facility] [address] [place], [address] ACT ACTIVATED CLOTTING Collected: 09/09/2017 Status: F Source: [place] TIME 9:12 AM [facility] REPOSITORY TYPE CODE TESTS RESULT OUT OF RANGE REFERENCE UNITS LAB L9100.0100 74-137 sec High ACTk CLOT 246 TIME Performed By: #### L9100.0100 #### [facility] Point of Care [address] [place] [address] ACT ACTIVATED CLOTTING Collected: 09/09/2017 Status: F Source: [place] TIME 8:50 AM [facility] REPOSITORY TYPE CODE TESTS RESULT OUT OF RANGE REFERENCE UNITS LAB L9100.0100 74-137 sec High ACTk CLOT 230 TIME Performed By: #### L9100.0100 #### [facility] Point of Care [address] [place] [address] ACT ACTIVATED CLOTTING Collected: 09/09/2017 Status: F Source: [place] TIME 6:55 AM [facility] REPOSITORY TYPE CODE TESTS RESULT OUT OF RANGE REFERENCE UNITS LAB L9100.0100 74-137 sec Normal ACTk CLOT 131 TIME Performed By: #### L9100.0100 #### [facility] Point of Care [address] [place] [address] 12 LEAD ELECTROCARDIOGRAM Observed: 09/05/2017 Status: F Source: [place] 12:49 PM [facility] REPOSITORY [facility] Cardiovascular Services [address] [place] [address] EKG - SD 09/02/17 0852 MR#: [id number] Acct: [id number] Name: VICKI RANDLE Rep #: [id number] : 1945 72 From: Luis Javier MD [...] ECG Confirmed by LUIS JAVIER MD ([id number]), film editor supervisor YANETH WRIGHT ([id number]) on 09/05/2017 12:49:13 PM Referred By: Nam Hughes Confirmed By:LUIS JAVIER MD 09/05/17 1249 Date Luis Javier MD CC: Alvin Hughes III, MD; Nam Hughes MD Date Dictated: 09/02/1752 Date Transcribed: 09/02/17 08 Track Laborer: Signed CBC-COMPLETE BLOOD CNT Collected: 09/02/2017 Status: F Source: [place] NO DIFF 9:50 AM [facility] REPOSITORY TYPE CODE TESTS RESULT OUT [...] MPV 9.1 Performed By: #### L100.0500 #### [facility] [address] [place], [address] PROTHROMBIN TIME W/INR Collected: 09/02/2017 Status: F Source: [place] 9:50 AM [facility] REPOSITORY TYPE CODE TESTS RESULT OUT OF RANGE REFERENCE UNITS LAB L300.4150 11.7-14.9 SECONDS Normal PROTIME 12.9 LAB L300.4200 Normal INR 1.0 Performed By: #### L300.3900, L300.4310 #### [facility] [address] [place], [address] PARTIAL THROMBOPLAST Collected: 09/02/2017 Status: F Source: [place] TIME 9:50 AM [facility] REPOSITORY TYPE CODE TESTS RESULT OUT OF RANGE REFERENCE UNITS LAB L300.4310 24.1-36.2 Seconds Normal PTT 31.0 Performed By: #### L300.3900, L300.4310 #### [facility] [address] [place], [address] BASIC METABOLIC Collected: 09/02/2017 Status: F Source: [place] PROFILE (BMP) 9:50 AM [facility] REPOSITORY TYPE CODE TESTS RESULT OUT [...] 6 Performed By: #### L500.2500, L501.1800 #### [facility] [address] [place], [place], [address] ALBUMIN, SERUM Collected: 09/02/2017 Status: F Source: [place] 9:50 AM [facility] REPOSITORY TYPE CODE TESTS RESULT OUT OF RANGE REFERENCE UNITS LAB L501.1800 3.2-5.0 g/dL Low ALB 2.9 Performed By: #### L500.2500, L501.1800 #### [facility] [address] [place], [place], [address] LIVER PROFILE Collected: 09/02/2017 Status: F Source: [place] 9:50 AM [facility] REPOSITORY TYPE CODE TESTS RESULT OUT [...] Performed By: #### L500.3400, L501.2300, L501.5200 #### [facility] [address] [place], [address] PHOSPHORUS Collected: 09/02/2017 Status: F Source: [place] 9:50 AM [facility] REPOSITORY TYPE CODE TESTS RESULT OUT OF RANGE REFERENCE UNITS LAB L501.2300 2.5-4.9 mg/dL Normal PHOS 3.1 Performed By: #### L500.3400, L501.2300, L501.5200 #### [facility] [address] [place], [address] MAGNESIUM Collected: 09/02/2017 Status: F Source: [place] 9:50 AM [facility] REPOSITORY TYPE CODE TESTS RESULT OUT OF RANGE REFERENCE UNITS LAB L501.5200 1.6-2.6 mg/dL Normal MG 2.1 Result Comment: Please note revised Magnesium reference range effective 2017. Performed By: #### L500.3400, L501.2300, L501.5200 #### [facility] [address] [facility] [place], [address] TYPE AND SCREEN Collected: 09/02/2017 Status: F Source: [place] 9:50 AM [facility] REPOSITORY Order Comment: Reason for Type AND Screen/Red Cells: SURGERY Surgery Date: 09/09/17 Type of Surgery: ABD. AORTIC ANEURYSM TYPE CODE TESTS RESULT OUT OF RANGE REFERENCE UNITS LAB B10.0800 A Normal BLOOD TYPE GEL NEGATIVE LAB B100.4000 Normal Antibody NEGATIVE Screen Performed By: #### B101.7450 #### [facility] [address] [facility] [address] [place], [address] CHEST PA AND LATERAL Observed: 09/02/2017 Status: F Source: [place] 9:45 AM [facility] REPOSITORY [facility] Imaging Services [address] [place] [address] Chest PA and Lateral MR#: [id number] Acct: [id number] Name: VICKI RANDLE Rep #: [id number] : 1945 M 72 From: Eriberto Allen MD PCP: Alvin Hughes III, MD Status: PRE SDC Study: Chest PA and Lateral Date of Exam: 09/02/17 Exam# [id number] Ordering Dr: Nam Hughes MD STUDY: X-RAY [...] Eriberto Allen MD at 10:27 EDT Tel [phone], Service support , CC: Alvin Hughes III, MD; Nam Hughes MD Track Laborer: Signed SURGERY VISIT REPORT Observed: 08/19/2017 Status: F Source: [place] 5:28 PM [facility] [address] [place] [address] [place] [address] OFFICE VISIT Date of Service: 08/19/17 MR#: [id number] Acct: [id number] Name: VICKI RANDLE Rep #: [id number] : 1945 Provider: Nam Hughes MD Age/Sex: [...] air Intake Visit Reasons: Abdominal aortic aneurysm Ethnic Studies Professor Required: No Is patient in pain?: No [...] a cardiac stress test performed at the [facility] [place]. There is no evidence of any inducible [...] Nutritional Appearance: average body habitus Orientation: alert [facility] Head: normal to inspection Eyes General: [...] Exam Const General: cooperative Nutritional Appearance: obese [facility] Head: normal to inspection Eyes General: [...] CAROTID DUPLEX Observed: 08/14/2017 Status: F Source: [place] ULTRASOUND 6:22 PM [facility] REPOSITORY [facility] Cardiovascular Services [address] [place] [address] Carotid Duplex Ultrasound 08/14/17 1047 MR#: [id number] Acct: [id number] Name: VICKI RANDLE Rep #: [id number] : 1945 72 From: Nam Hughes MD [...] the left vertebral artery. Procedure Carotid Duplex 23695. Exam performed in department. Interpretation Summary Minimal [...] Date Dictated: 08/14/17 1047 Date Transcribed: 08/14/171820 Track Laborer: Signed CTA ABDOMEN W/WO Observed: 08/07/2017 Status: F Source: [place] CONTRAST 5:40 PM [facility] REPOSITORY [facility] Imaging Services [address] [place] [address] CTA Abdomen W/WO Contrast MR#: [id number] Acct: [id number] Name: VICKI RANDLE Rep #: [id number] : 1945 M 72 From: Javier Guerra MD PCP: Alvin Hughes III, MD Status: REG CLI Study: CTA Abdomen W/WO Contrast Date of Exam: 08/07/17 Exam# [id number] Ordering Dr: Nam Hughes MD STUDY: CTA [...] Alvin Hughes III, MD; Nam Hughes MD Track Laborer: Signed SURGERY VISIT REPORT Observed: 08/06/2017 Status: F Source: [place] 6:11 PM [facility] REPOSITORY [facility] [address] [facility] [address] [place] [address] OFFICE VISIT Date of Service: 08/05/17 MR#: [id number] Acct: [id number] Name: VICKI RANDLE Rep #: [id number] : 1945 Provider: Nam Hughes MD Age/Sex: 72/M Location: [facility] Status: Signed with Addenda ADDENDUM by Nam [...] lb Intake Visit Reasons: Abdominal aortic aneurysm Ethnic Studies Professor Required: No Is patient in pain?: No [...] a cardiac stress test performed at the [facility] [place]. There is no evidence of any inducible [...] his surgical care. Cc: Dr. Alvin Hughes, [facility] Nam Hughes M.D., F.A.C.S. Coding Level of [...] Exam Const General: cooperative Nutritional Appearance: obese [facility] Head: normal to inspection Eyes General: [...] PROFILE (BMP) 1:48 PM [facility] REPOSITORY TYPE CODE TESTS RESULT OUT [...] GAP 7 Performed By: #### L500.2500 #### [facility] [address] [place], [address] PLASTIC SURGERY Observed: 07/26/2017 Status: F Source: [place] VISIT REPORT 4:35 PM [facility] REPOSITORY [facility] [address] [facility] [address] [place] [address] OFFICE VISIT Date of Service: 06/18/17 MR#: [id number] Acct: [id number] Name: VICKI RANDLE Rep #: [id number] : 1945 Provider: Francis Dudley MD Age/Sex: 71/M Location: [facility] Status: Signed Intake Vital Signs06/18/17 Height 6 ft 1 in 06/18/17 Weight: 257 lb 2 oz Intake Visit Reasons: evaluation for TBSE Ethnic Studies Professor Required: No Accompanied by: None Is patient [...] MD PROGRESS Observed: 07/16/2017 Status: COMPLETED Source: [place] 5:10 PM [facility] REPOSITORY HNO ID: [id number] Author: Alvin Hughes III Service: (none) Author Type: Physician Type: Progress Notes Filed: 07/16/2017 5:10 PM Note Text: Please notify patient that The abdominal aortic aneurysm measures 4.9 cm. I have discussed the case with Dr. Nam Hughes who recommends surgical evaluation. The patient had previously indicated interest in evaluation by Dr. Hughes type placed the consult order. Alvin Hughes III, MD, [facility] US ABD AORTA Observed: 07/15/2017 Status: F Source: BOGARD 11:24 AM [facility] REPOSITORY * * *Final Report* * [...] measurements unchanged in the iliac arteries also. Track Laborer: RUDDY Transcribe Date/Time: Jul 15 2017 11:57A Dictated by : JOSE POLLOCK DO This examination was interpreted and the report reviewed and electronically signed by: JOSE POLLOCK DO on Jul 15 2017 12:02PM EST [id number] Observed: 07/15/2017 Status: COMPLETED Source: [place] 10:39 AM [facility] REPOSITORY HNO ID: [id number] Author: Anna Rivera Service: (none) Author Type: [...] AM PROGRESS Observed: 07/12/2017 Status: COMPLETED Source: [place] 11:29 AM [facility] REPOSITORY HNO ID: [id number] Author: Alvin Hughes III Service: (none) Author [...] Diagnosis Date - AAA (abdominal aortic aneurysm) ([facility]) 02/06/2012 01/10/17: CT abd 4.8 cm - Benign hypertension 07/13/2015 - Esophageal reflux Gastroesophageal reflux - Facet arthritis of lumbar region ([facility]) 06/27/2014 - Hypertrophy of prostate without urinary obstruction and other lower urinary tract symptoms (LUTS) Hypertrophy of the prostate w/o obstruction - Mixed hyperlipidemia Hyperlipidemia - Nodule of right lung 04/17/2012 - Other specified disorder of gallbladder 09/07/07 - Pulmonary emphysema ([facility]) 12/31/2016 - Sebaceous cyst - [...] NO DIFF 10:04 AM [facility] REPOSITORY TYPE CODE TESTS RESULT OUT [...] MPV 9.1 Performed By: #### L100.0500 #### [facility] [address] [place], [address] BASIC METABOLIC Collected: 06/27/2017 Status: F Source: [place]IL PROFILE (BMP) 10:04 AM [facility] REPOSITORY TYPE CODE TESTS RESULT OUT [...] GAP 6 Performed By: #### L500.2500 #### [facility] [address] [place], [place], [address] ALLERGIES ALLERGIES DATE TYPE / CODE NAME / CODE REACTION SEVERITY SOURCE Drug rosuvastatin ACHING Unknown [place] 8 Allergy/973793587( calcium/[id number] Community SNOMED CT) 3(RXNORM) Hospital Repository Drug adhesive/[id number] Itching Unknown [place] 8 Allergy/884377092( 45(RXNORM) [facility] SNOMED CT) Hospital Repository Drug atorvastatin/F006 Other Unknown [place] 8 Allergy/382734323( 017069(RXNORM) [facility] SNOMED CT) Hospital Repository Drug [id number] Myalgia [place] 8 Class/334256628(SN REDUCTASE Clinic Main OMED CT) INHIBITORS [place] Repository DRUG ROSUVASTATIN INTOLERANCE [place] 7 INGREDI/783787287( CALCIUM Clinic Main SNOMED CT) [place] Repository DRUG ATORVASTATIN INTOLERANCE [place] 5 INGREDI/679472876( CALCIUM [facility] Main SNOMED CT) [place] Repository Miscellaneous OTHER ITCHING [place] 5 Allergy/293452786( Clinic Main SNOMED CT) [place] Repository ENCOUNTERS ENCOUNTERS ADMIT/DISCHARGE ACCOUNT ADMITTING ENCOUNTER LOCATION SOURCE NUMBER CLASS 06/12/2018/06/12/19 [id number] Ambulatory [address] Repository 06/12/2018/06/12/19 [id number] Ambulatory [address] Repository 06/12/2018/06/15/19 [id number] Ambulatory [address] Repository 06/03/2018/06/03/19 [id number] Ambulatory BMSBuilding:B [place] 19 MS.[facility] Repository 05/22/2018/05/22/20 [id number] Emergency [place] Hospital ing:ED Repository 05/18/2018/05/18/20 [id number] Ambulatory BMSBuilding:B [place] 18 MS.[facility] Repository 05/18/2018 [id number] [facility] Repository 05/18/2018 [id number] Ambulatory BMSBuilding:B [place].[facility] Repository 05/13/2018 [id number] Ambulatory BMSBuilding:B [place].[facility] Repository 05/13/2018 [id number] Ambulatory [facility] Hospital ing:[facility]S Repository 05/11/2018/05/11/20 [id number] Ambulatory BMSBuilding:B [place] 18 MS.[facility] Repository 05/04/2018/05/04/20 [id number] Ambulatory BMSBuilding:B [place] 18 MS.[facility] Repository 04/28/2018 [id number] Ambulatory BMSBuilding:Facundo Cordero MS.CF.[facility] Repository 04/28/2018/04/28/20 [id number] Ambulatory [address] ing:SDCRoom: Repository AC03 04/27/2018 [id number] Ambulatory BMSBuilding:Facundo Cordero MS.CF.[facility] Repository 03/16/2018/03/16/20 [id number] Ambulatory [address] Repository 03/16/2018/03/17/20 [id number] Ambulatory [address] Repository 02/19/2018/02/20/20 [id number] Emergency [address] ing:ED Repository 01/16/2018/01/28/20 [id number] Ambulatory [address] Repository 01/09/2018/01/10/20 [id number] Ambulatory [address] Repository 01/09/2018/01/13/20 [id number] Ambulatory [address] Repository 01/07/2018/01/08/20 [id number] Ambulatory BMSBuilding:Facundo Cordero 18 MS.[facility] Repository 01/06/2018/01/07/20 [id number] Ambulatory [address] Repository 12/29/2017/12/30/19 [id number] Ambulatory [address] ing:EN Repository 11/28/2017/11/29/19 [id number] Ambulatory [address] Repository 11/26/2017/11/27/19 [id number] Ambulatory BMSBuilding:B [place] 18 MS.[facility] Repository 11/20/2017 [id number] Ambulatory [facility] ing:CT Repository 11/20/2017/11/22/19 [id number] Ambulatory [address] Repository 11/07/2017/11/11/19 [id number] Ambulatory [address] Repository 10/21/2017/10/23/19 [id number] Ambulatory [address] Repository 10/01/2017/10/03/19 [id number] Ambulatory [address] Repository 09/22/2017/09/23/19 [id number] Ambulatory BMSBuilding:B [place] 18 MS.[facility] Repository 09/09/2017/09/11/19 [id number] AlvertoNam celestin Inpatient [place] 18 [facility] ing:ICURoom: Repository WLC22Aun: 1 09/09/2017 [id number] AlvertoNam celestin Ambulatory BMSBuilding:B [place] MS.[facility] Repository 09/09/2017 [id number] CesissyNam celestin Ambulatory BMSBuilding:B [place] MS.[facility] Repository 09/09/2017/09/11/19 [id number] Ambulatory BMSBuilding:B [place] 18 MS.CF.[facility] Repository 09/02/2017/09/11/19 [id number] Ambulatory BMSBuilding:W [place] 18 [facility] Repository 08/19/2017/08/20/19 [id number] Ambulatory BMSBuilding:B [place] 18 MS.[facility] Repository 08/14/2017 [id number] Ambulatory [facility] Hospital ing:[facility]S Repository 08/14/2017 [id number] Ambulatory BMSBuilding:B [place].CF.[facility] Repository 08/07/2017 [id number] [facility] ing:CT Repository 08/05/2017 [id number] [facility]ulatory [facility] ing:MTLAB Repository 08/05/2017/08/06/19 [id number] Ambulatory BMSBuilding:B [place] 18 MS.[facility] Repository 07/15/2017/07/15/19 [id number] Ambulatory [address] Repository 07/12/2017/07/12/19 [id number] Ambulatory [address] Repository 06/27/2017 [id number] Ambulatory [facility] Hospital ing:LAB Repository 06/18/2017/06/18/19 [id number] Ambulatory BMSBuilding:B [place] 18 MS.[facility] Repository PAYERS PAYERS ENCOUNTER GUARANTOR PAYER SUBSCRIBER SOURCE 06/03/2018 VICKI Cordero [id number] SR Insurance:AETFRACISCO MONSONB: [address] MCRPolicy Number: [id number] Hospital [address]Ler: (330) [id number] Repository [phone] (HP) Date:0063-38-65XY [address] [address]PR: 06/03/2018 Secondary NOT GIVENUNK [place] Insurance:SELF PAY [facility] Number: Effective Repository Date:2018-06-03 05/22/2018 VICKI Cordero [id number] SR Insurance:AETFRACISCO MONSONB: [address] Number: [id number] Hospital [address]Atc: (330) [id number] Repository [phone] (HP) Date:2909-59-73HT [address] [address]GW: 05/22/2018 Secondary NOT GIVENUNK [place] Insurance:SELF PAY [facility] Number: Effective Repository Date:2018-05-22 05/18/2018 VICKI Cordero [id number] SR Insurance:JUWAN MONSONB: [address] Number: [id number] Hospital 886[address]Qqf: (330) [id number] Repository [phone] (HP) Date:2009-07-54NT [address] [address]RI: 05/18/2018 Secondary NOT GIVENUNK [place] Insurance:SELF PAY [facility] Number: Effective Repository Date:2018-05-15 05/18/2018 VICKI Cordero [id number] SR Insurance:AETFRACISCO MONSONB: [address] Number: [id number] Hospital 999[address]Cgf: (330) [id number] Repository [phone] (HP) Date:8706-44-83JQ [address] [address]SD: 05/18/2018 Secondary NOT GIVENUNK [place] Insurance:SELF PAY [facility] Number: Effective Repository Date:2018-05-18 05/18/2018 VICKI Cordero [id number] SR Insurance:AETFRACISCO MONSONB: Community [address] [place] MCRPolicy Number: [id number] Hospital 988[address]Kzd: (330) [id number] Repository [phone] () Date:1810-99-16VY [address] [place] [address]QU: 05/18/2018 Secondary NOT GIVENUNK [place] Insurance:SELF PAY [facility] Number: Effective Repository Date:2018-05-18 05/13/2018 VICKI Cordero [id number] SR Insurance:AETFRACISCO RANDLEDOB: [address], [place] MCRPolicy Number: [id number] Hospital 20[address]Pjb: (330) [id number] Repository [phone] () Date:1371-51-97NU [address] [place] [address]EF: 05/13/2018 Secondary NOT GIVENUNK [place] Insurance:SELF PAY [facility] Number: Effective Repository Date:2018-05-13 05/13/2018 VICKI Cordero [id number] SR Insurance:AETFRACISCO MONSONB: Community [address] MCRPolicy Number: [id number] Hospital 724[address]Bbm: (330) [id number] Repository [phone] () Date:8483-56-93CX [address] [place] [address]OG: 05/13/2018 Secondary NOT GIVENUNK [place] Insurance:SELF PAY [facility] Number: Effective Repository Date:2018-05-04 05/11/2018 VICKI Cordero [id number] SR Insurance:AETNA RAZIADOB: Community [address] [place] MCRPolicy Number: [id number] Hospital 6[address]Ddg: (330) [id number] Repository [phone] () Date:4956-38-67HU [address] [address]LH: 05/11/2018 Secondary NOT GIVENUNK [place] Insurance:SELF PAY [facility] Number: Effective Repository Date:2018-05-11 05/04/2018 VICKI Primary VICKI Cordero [id number] SR Insurance:AETNA RAZIADOB: Community [address] [place], [place] [address]FR[place] MCRPolicy Number: [id number] Hospital [address]Fyu: (330) [id number] Repository [phone] () Date:1913-82-35QA [address] [place] [address]AJ: 05/04/2018 Secondary NOT GIVENUNK [place] Insurance:SELF PAY [facility] Hospital Number: Effective Repository Date:2018-05-04 04/28/2018 VICKI Primary VICKI Cordero [id number] SR Insurance:AETNA IONAB: Community [address] [place], [place] [address], [place] MCRPolicy Number: [id number] Hospital 110[address]Kbi: (330) [id number] Repository [phone] () Date:6890-95-08LS [address] [address]LH: 04/28/2018 Secondary NOT GIVENUNK [place] Insurance:SELF PAY [facility] Hospital Number: Effective Repository Date:2018-04-28 04/28/2018 VICKI Primary VICKI Cordero [id number] SR Insurance:AETNA RAZIADOB: [facility] [place] MCRPolicy Number: [id number] Hospital [address]Ewe: (330) [id number] Repository [phone] () Date:8576-61-53NB [address] [address]TZ: 04/28/2018 Secondary NOT GIVENUNK [place] Insurance:SELF PAY Community [facility] Number: Effective Repository Date:2018-02-19 04/27/2018 VICKI Primary VICKI Cordero [id number] SR Insurance:AETFRACISCO MONSONB: [address] Number: [id number] Hospital [address]Evi: (330) [id number] Repository [phone] () Date:1129-25-02EP [address] [address]BW: 04/27/2018 Secondary NOT GIVENUNK [place] Insurance:SELF PAY [facility] Number: Effective Repository Date:2018-04-27 02/19/2018 VICKI Primary VICKI Cordero [id number] SR Insurance:AETFRACISCO MONSONB: [address] Number: [id number] Hospital 236[address]Uko: (330) [id number] Repository [phone] () Date:3305-06-48QS [address] [address]GC: 02/19/2018 Secondary NOT GIVENUNK [place] Insurance:SELF PAY [facility] Number: Effective Repository Date:2018-02-19 01/07/2018 VICKI Cordero [id number] SR Insurance:JUWAN MONSONB: [address] Number: [id number] Hospital [address]Yqx: (330) [id number] Repository [phone] () Date:1816-09-66VA [address] [address]HR: 01/07/2018 Secondary NOT GIVENUNK [place] Insurance:SELF PAY [facility] Number: Effective Repository Date:2017-12-09 12/29/2017 VICKI Demarco NOT GIVENUNK [place] [id number] SR Insurance:SELF PAY [address] [address]Xey: (330) Number: Effective Repository [phone] () Date:2017-11-28 11/26/2017 VICKI Cordero [id number] SR Insurance:AETFRACISCO MONSONB: [address] [place] MCRPolicy Number: [id number] Hospital 483[address]Qib: (330) [id number] Repository [phone] (HP) Date:6151-69-87NX [address] [address]TT: 11/26/2017 Secondary NOT GIVENUNK [place] Insurance:SELF PAY [facility] Number: Effective Repository Date:2017-09-25 11/20/2017 VICKI Primary VICKI Cordero [id number] SR Insurance:AETFRACISCO MONSONB: [address] [place] MCRPolicy Number: [id number] Hospital 765[address]Vxx: (330) [id number] Repository [phone] () Date:4852-34-45MW [address] [place] [address]NE: 11/20/2017 Secondary NOT GIVENUNK [place] Insurance:SELF PAY [facility] Hospital Number: Effective Repository Date:2017-09-22 09/22/2017 VICKI Primary VICKI Cordero [id number] SR Insurance:JUWAN MONSONB: [address] [facility]: [id number] Hospital 978[address]Yyi: (330) [id number] Repository [phone] () Date:4802-55-77FH [address] [place] [address]OL: 09/22/2017 Secondary NOT GIVENUNK [place] Insurance:SELF PAY [facility] Number: Effective Repository Date:2017-09-10 09/09/2017 VICKI Primary VICKI Cordero [id number] SR Insurance:JUWAN MONSONB: [address] [facility]Policy Number: [id number] Hospital [address]Wku: (330) [id number] Repository [phone] () Date:3592-80-16TJ [address] [place] [address]IK: 09/09/2017 Secondary NOT GIVENUNK [place] Insurance:SELF PAY [facility] Number: Effective Repository Date:2017-08-22 09/09/2017 VICKI Cordero [id number] SR Insurance:AETNA RAZIADOB: [address], [place] MCRPolicy Number: [id number] Hospital 24[address]Lik: (330) [id number] Repository [phone] (HP) Date:7886-94-40SM [address] [address]HE: 09/09/2017 Secondary NOT GIVENUNK [place] Insurance:SELF PAY [facility] Number: Effective Repository Date:2017-09-09 09/09/2017 VICKI Cordero [id number] SR Insurance:AETNA RAZIADOB: [address], [place] MCRPolicy Number: [id number] Hospital 8[address]Asj: (330) [id number] Repository [phone] (HP) Date:2427-04-15JQ [address] [address]BJ: 09/09/2017 Secondary NOT GIVENUNK [place] Insurance:SELF PAY [facility] Number: Effective Repository Date:2017-09-09 09/09/2017 VICKI Cordero [id number] SR Insurance:AETFRACISCO MONSONB: [address], [place] MCRPolicy Number: [id number] Hospital 126[address]Vrp: (330) [id number] Repository [phone] (HP) Date:7013-92-96XH [address] [address]XS: 09/09/2017 Secondary NOT GIVENUNK [place] Insurance:SELF PAY [facility] Hospital Number: Effective Repository Date:2017-09-09 09/02/2017 VICKI Cordero [id number] SR Insurance:AETNA RAZIADOB: [address], [place] MCRPolicy Number: [id number] Hospital 300[address]Djp: (330) [id number] Repository [phone] (HP) Date:8012-09-11OV [address] [place] [address]TT: 09/02/2017 Secondary NOT GIVENUNK [place] Insurance:SELF PAY [facility] Number: Effective Repository Date:2017-09-02 08/19/2017 VICKI Cordero [id number] SR Insurance:AETNA RAZIADOB: [address] Number: [id number] Hospital 324[address]Mfz: (330) [id number] Repository [phone] () Date:5849-03-01VW [address] [place] [address]JJ: 08/19/2017 Secondary NOT GIVENUNK [place] Insurance:SELF PAY [facility] Number: Effective Repository Date:2017-08-05 08/14/2017 VICKI Cordero [id number] SR Insurance:AETNA RAZIADOB: [address] Number: [id number] Hospital 14303Lxs: (330) [id number] Repository [phone] () Date:8859-77-59PQ [address] [place] [address]OP: 08/14/2017 Secondary NOT GIVENUNK [place] Insurance:SELF PAY [facility] Number: Effective Repository Date:2017-08-05 08/14/2017 VICKI Cordero [id number] SR Insurance:AETNA RAZIADOB: [address] MCRPolicy Number: [id number] Hospital 790[address]Tyx: (330) [id number] Repository [phone] () Date:6971-94-71JU [address] [place] [address]FA: 08/14/2017 Secondary NOT GIVENUNK [place] Insurance:SELF PAY [facility] Number: Effective Repository Date:2017-08-14 08/07/2017 VICKI Cordero [id number] SR Insurance:AETNA RAZIADOB: [address] MCRPolicy Number: [id number] Hospital 59[address]Qna: (330) [id number] Repository [phone] (HP) Date:4775-39-42PL [address] [place] [address]SX: 08/07/2017 Secondary NOT GIVENUNK [place] Insurance:SELF PAY [facility] Number: Effective Repository Date:2017-08-05 08/05/2017 VICKI Primary VICKI Cordero [id number] SR Insurance:JUWAN MONSONB: [address] MCRPolicy Number: [id number] Hospital 216[address]Hcj: (330) [id number] Repository [phone] () Date:9560-81-83VM [address]ZM [place] [address]CV: 08/05/2017 Secondary NOT GIVENUNK [place] Insurance:SELF PAY [facility] Number: Effective Repository Date:2017-08-05 08/05/2017 VICKI Primary VICKI Cordero [id number] SR Insurance:JUWAN MONSONB: [address] Number: [id number] Hospital 785[address]Vkw: (330) [id number] Repository [phone] () Date:6449-08-35OZ [address] [place] [address]VI: 08/05/2017 Secondary NOT GIVENUNK [place] Insurance:SELF PAY [facility] Number: Effective Repository Date:2017-07-21 06/27/2017 VICKI Primary VICKI Cordero [id number] SR Insurance:JUWAN MONSONB: [address] MCRPolicy Number: [id number] Hospital 527[address]Ycy: (330) [id number] Repository [phone] () Date:4381-19-67WI [address] [place] [address]MJ: 06/27/2017 Secondary NOT GIVENUNK [place] Insurance:SELF PAY Community [facility] Number: Effective Repository Date:2017-06-27 06/18/2017 VICKI Cordero [id number] STATE Insurance:JUWAN BLAKELY: Community [address]SHREMichelle BLANCO Number: [id number] [address]Nik: [id number] Repository Date:8817-31-32QK BOX (CH) [address]VX [place] [address]QC: 06/18/2017 Secondary NOT GIVENUNK [place] Insurance:SELF PAY [facility] Number: Effective Repository Date:2017-05-03
== END ==
PROVIDERS: Family Provider Family Medicine; PCP Family Medicine; Referring Provider Family Medicine; Visit Provider Family Medicine
DX: I71.4 Abdominal aortic aneurysm, without rupture (principal)
CPT/HCPCS: 93978

== ENCOUNTER 2018-05-22 13:54 | Emergency (ER) | payer MEDICARE, SELFPAY ==
[2018-05-18 13:57] VITALS: BMI 35.2
[2018-05-22 13:56] VITALS: BP 136/81; PULSE 81; RESP 16; TEMP 36.7; O2SAT 95; BMI 35.5
--- NOTE | 2018-05-22 14:06 | VDLE_ITS ---
Reason For Study: Swelling RLE RIGHT LEFT FV is compressible, spontaneous, phasic, CFV is compressible, spontaneous, phasic, competent and demonstrates normal competent, and demonstrates normal augmentation. augmentation. POP V is compressible, spontaneous, phasic, competent and demonstrates normal augmentation. T/P Trunk is compressible. RT PerV is compressible. Rt CFV is partially compressible consistent with acute DVT, Thrombus is extending from the Rt GSV into the Common Femoral Vein and appears very UNSTABLE Rt PTV is dilated and non compressible consistent with acute DVT Rt GSV is dilated and non compressible consistent with acute SVT Rt GastrocV is partially compressible with bright intraluminal echeos consistent with chronic DVT. Procedure Exam performed portable in ED. A preliminary report was called and/or faxed to Dr. Rivero. Interpretation Summary Acute deep venous thrombosis right common femoral with thrombus extending from the right great saphenous vein into the common femoral vein. This appears very unstable Acute deep venous thrombosis right posterior tibial vein. 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
--- NOTE | 2018-05-22 14:16 | ED.VISSUMM ---
- ER Visit Summary Date of Service: 05/22/18 Chief Complaint: Right upper leg pain and swelling History of Present Illness: The patient is a 72 M history of hypertension and prior left leg DVT he states 1-2 months ago. He was on a blood thinner but says he is now off. Patient states that for the last several days has had some swelling and discomfort to his right medial thigh. Denies any injury or trauma. He believes he has another DVT. He denies any chest pain or shortness of breath. No hemoptysis. Physical Examination: Well-appearing older male. Vital signs are stable. He is afebrile. His pulse ox is 95% on room air no hypoxia. H EENT exam unremarkable. Neck nontender no lymphadenopathy. Lungs clear to auscultation bilaterally. Heart regular rhythm rate about 80 no murmur. Abdomen soft, nontender, nondistended, normal bowel sounds and no peritoneal signs. Patient is moving all 4 extremities. Neurovascular intact. His right medial thigh and hamstring area is tender palpation. Mild swelling. Calves are nontender. Feet are neurovascularly intact. Neurologically is awake and alert with no focal motor deficits. Test Results: Noninvasive venous study of his right lower extremity shows extensive DVT starting proximal and his right common femoral artery and going distally well below his knee. Involving multiple veins. Emergency Department Course and Treatment: To the patient's diagnosis of acute right lower extremity DVT he will be started back on Eliquis. 10 mg twice daily for the first 7 days. Then 5 mg twice daily after that. I will have a discussion with the patient he only took 30 days of anticoagulation when he was diagnosed and set number. I do not know if he did not follow-up for exactly what happened. He will need to follow-up with his primary care physician and most likely be on anticoagulation for at least 6 months. He has been on Eliquis before and he did well with that. Treatment Plan: Eliquis twice daily. Follow-up with his primary care physician for further evaluation and extension of anticoagulation. Disposition: Discharge Impression: Right leg pain and swelling secondary to extensive right lower extremity DVT This note was generated with [employer] dictation software. It may contain incorrect words, spelling, and punctuation that were not noted in review of the chart prior to signing ED Disposition - Plan for ED Patient: Chief Complaint: Lower Extremity Injury Referrals: Osbaldo Berg III, MD [Primary Care Provider] -
--- NOTE | 2018-05-22 15:38 | ED.DEP ---
ED Disposition - Plan for ED Patient: Disposition: Home or Assisted Living Chief Complaint: Lower Extremity Injury Instructions: ED DVT Prescriptions: Apixaban [Eliquis] 5 mg PO BID 30 Days tab Referrals: Osbaldo Berg III, MD [Primary Care Provider] - Additional Instructions: You have an extensive blood clot in your right leg from the groin all the way down to around her ankle. He will be started on the blood thinner again Eliquis. For the first 7 days she will take 10 mg twice a day. On day 8 he will decrease the dose to 5 mg twice a day. You will need to follow-up with your primary care physician. Typically when people have blood clots they will stay on anticoagulation for 6 months. If you have any rectal bleeding you need to return. If you hit your head while on blood thinners you need to be seen in the emergency department to be evaluated.
[2018-05-22] MEDS: APIXABAN 5 MG TABLET 10 MG PO (16:13)
[2018-05-22 16:15] VITALS: BP 127/80; PULSE 82; RESP 16; O2SAT 99
[2018-05-29 22:06] LABS: Protein C Antigen 83 % (60-150); Protein C, Functional 109 % (73-180)
[2018-05-31 13:34] LABS: Anti-Cardiolipin Ab, IgG, Qn 13 GPL U/mL (0-14); Anti-Cardiolipin Ab, IgM, Qn < 9 MPL U/mL (0-12); Anti-Thrombin 3 AG, Immunol 93 % (72-124); Antithrombin 3 Function 99 % (75-135); Beta-2-Glycoprotein I IgA <9 (0-25); Beta-2-Glycoprotein I IgG <9 (0-20); Beta-2-Glycoprotein I IgM <9 (0-32)
== END 2018-05-22 16:16 | disposition home or self-care (01) ==
PROVIDERS: Emergency Provider Emergency Medicine; Family Provider Family Medicine; PCP Family Medicine
DX: I82.411 Acute embolism and thrombosis of right femoral vein (principal); I82.441 Acute embolism and thrombosis of right tibial vein; I82.491 Acute embolism and thrombosis of other specified deep vein of right lower extremity; I82.891 Chronic embolism and thrombosis of other specified veins; I10 Essential (primary) hypertension; Z79.01 Long term (current) use of anticoagulants; Z79.899 Other long term (current) drug therapy; Z86.718 Personal history of other venous thrombosis and embolism
CPT/HCPCS: 81240; 81241; 85300; 85301; 85302; 85303; 86146; 86147; 93971; 99283

== ENCOUNTER → 2018-10-05 14:14 | Outpatient (CLI) | payer MEDICARE, SELFPAY ==
[2018-08-20 14:19] VITALS: BMI 35.5
--- NOTE | 2018-10-05 14:16 | CT_ITS ---
STUDY: CTA OF THE ABDOMINAL AORTA AND BILATERAL LOWER EXTREMITIES REASON FOR EXAM: Male, 73 years old. Abdominal aortic aneurysm follow-up RADIATION DOSAGE (If Supplied By Facility): CTDIvol = ( 25.44 ) mGy, DLP = ( 1033.25 ) mGycm TECHNIQUE: Axial CT angiography multi-detector data acquisition was obtained from the to the following intravenous administration of 100mL IV Isovue 370. Axial images and MIP images were reconstructed from the axial data set. Post-processing of the angiographic images was performed, with multiplanar reformation and 3D reconstruction. Individualized dose optimization techniques were used for this CT. TECHNICAL QUALITY: Good COMPARISON: November 20, 2017 CT scan abdomen. Descriptors of Narrowing: None (0%) Mild (< 50%) Moderate (50-70%) Severe (70-90%) Subtotal/Total Occlusion (90-100%) Non-Evaluable (technically non-diagnostic FINDINGS: Abdominal aorta: The abdominal aorta just at the hiatus measures 2.6 x 2.8 cm. On prior study it measured 2.6 x 2.6 cm. The level of the renal arteries the aorta measures 2.2 x 2.5 cm. There is a trace focus of hyperdensity just past the bifurcation of the stents within the [place] aorta. This is also suggested on the prior study. The [place] aorta at this level measures 2.3 x 1.9 cm not enlarged since prior study when it measured 1.4 x 2.3 cm. The [place] aorta to the level of the left kidney now measures 1.8 x 1.6 cm when it did measure 4.4 x 4.8 cm. Celiac and superior mesenteric arteries: There is minimal calcification of the takeoff of the celiac and mesenteric arteries. Inferior mesenteric artery: Thrombosed. Right renal artery(arteries): There is mild narrowing of the proximal rotator cuff of the right renal artery otherwise patent. Left renal artery(arteries): Is a mildly distended appearance of the takeoff of the left renal artery. This is stable since prior study. There is early bifurcation and minimal narrowing of the proximal left renal artery. Right common iliac artery: The common iliac is a stent which extends from the left side of the aorta to extend into the right side iliac is a stent Right external iliac artery: Is mild plaque formation. Right internal iliac artery: There is mild plaque formation proximally. 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 Left common iliac artery: There is a right-sided stent extending from the [place] aorta which extends to the left side of the distal aorta extending into the iliac vessels. Within the distal aspect of the left common internal artery there is a new focus of linear density in the same area where there is prior thrombus. This may represent a small focus of penetrating ulcer potentially a small focal dissection. This is seen just at the edge of the stent. Image #71 of the coronal views. Left external iliac artery: There is partial calcification of the left external iliac. . Left internal iliac artery: There is moderate diffuse narrowing. There is persistent left lower lobe consolidation trace left effusion. There is a small granuloma in the right middle lobe. The liver appears homogeneous. The spleen pancreas adrenal glands are grossly normal. There is a small 1.2 cm right renal cyst. There is a cyst measuring 2.8 x 3.1 cm. There is mild right renal cortical thinning. There is a cyst measuring 6.8 mm stable since prior studies. In the left kidney there are multiple left-sided renal cyst the largest of which measures 8.3 x 8.8 cm similar to the prior study. There is mild atrophy of the left kidney otherwise. There is a cyst measuring 5.7 x 5.9 cm stable since prior study. There is a minimal hiatal hernia. The small bowel appears normal. There is moderate stool in the colon. The appendix is normal. There is no evidence for intraperitoneal lymphadenopathy. There is degenerative change in the thoracolumbar spine. There is nonvisualization of the gallbladder which is likely been removed. CT/CTA Abdomen W/WO Contrast IMPRESSION: Reduction in the size of the [place] aorta since prior study. However there is interval development of a small focal left lateral penetrating ulcer or dissection at the level of the left side of the iliac artery just past the stent on the left lateral side. This where there was a prior thrombus. Clinical correlation is warranted. There is no evidence of surrounding hematoma this time. 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 Stable bilateral benign-appearing renal cysts. Moderate constipation. Persistent left lower lobe consolidation and/or atelectasis unchanged since prior study. Recommend follow-up CT scan of the chest when appropriate. Electronically Signed: Gianna Parker MD at 1:53 EDT Tel , Service support ,
[2018-10-05 14:31] LABS: EGFR FINGERSTICK > 60.0000 mL/min (>60)
== END ==
PROVIDERS: Family Provider Family Medicine; PCP Family Medicine; Referring Provider Surgery; Visit Provider Surgery
DX: I71.4 Abdominal aortic aneurysm, without rupture (principal)
CPT/HCPCS: 74175; Q9967

== ENCOUNTER 2019-06-15 12:24 | Emergency (ER) | payer MEDICARE, SELFPAY ==
[2019-05-06 14:05] VITALS: BMI 35.5
[2019-06-15 12:25] VITALS: BP 118/68; PULSE 88; RESP 16; TEMP 36.8; O2SAT 96; BMI 35.2
--- NOTE | 2019-06-15 12:55 | CT_ITS ---
STUDY: CT BRAIN WITHOUT CONTRAST REASON FOR EXAM: Male, 73 years old. Trauma, fell 3 days ago hitting back of head/neck on table, bruising to posterior lower neck, abrasion to back of head. RADIATION DOSAGE (If Supplied By Facility): CTDIvol = ( 44.99 ) mGy, DLP = ( 846.73 ) mGycm TECHNIQUE: Transaxial CT imaging of the brain was performed without administration of intravenous contrast material. Individualized dose optimization techniques were used for this CT. COMPARISON: No relevant priors. FINDINGS: Scalp hematoma overlying the posterior occipital parietal bones bilaterally slightly worse on the right side. Normal calvarium. There is mild cerebral atrophy with widening of the extra-axial spaces and ventricular dilatation. There are areas of decreased attenuation within the white matter tracts of the supratentorial brain, consistent with microvascular disease changes. Normal basal ganglia and thalami. Normal brainstem. Normal cerebellum. There is no intracranial hemorrhage. There are no findings of an acute ischemic infarction. Mucosal thickening along the posterior aspect of the right ethmoid sinus. CT/Brain/Head without Contrast IMPRESSION: Chronic involutional changes of the brain. Scalp hematoma overlying the posterior aspect of the parietal and occipital bones bilaterally. Electronically Signed: Eriberto Allen, at 14:28 EST , Service support ,
--- NOTE | 2019-06-15 12:55 | CT_ITS ---
STUDY: CT CERVICAL SPINE WITHOUT CONTRAST REASON FOR EXAM: Male, 73 years old. Trauma, fell 3 days ago hitting back of head/neck on table, bruising to posterior lower neck, abrasion to back of head. RADIATION DOSAGE (If Supplied By Facility): CTDIvol = ( 25.80 ) mGy, DLP = ( 662.25 ) mGycm TECHNIQUE: High resolution transaxial imaging was performed without contrast material. Sagittal and coronal images were reconstructed. Individualized dose optimization techniques were used for this CT. COMPARISON: None FINDINGS: Normal craniovertebral junction. There are degenerative changes of the anterior atlantoaxial articulation. Normal odontoid process. There is straightening of the normal cervical lordosis. Normal vertebral bodies and posterior osseous elements. C2-3: Uncovertebral arthrosis worse on the left side. Facet joint osteoarthritis and hypertrophy worse on the right side with mild bilateral neural foraminal stenosis. C3-4: Marked degree of disc space narrowing. Uncovertebral arthrosis and spondylosis. Moderate degree of bilateral neural foraminal stenosis slightly worse on the right side. C4-5: Marked degree of disc space narrowing. Spondylosis. Uncovertebral arthrosis. Marked degree of right neural foraminal stenosis. Moderate degree of left neural foraminal stenosis. C5-6: Marked degree of disc space narrowing. Spondylosis. Uncovertebral arthrosis. Bilateral neural foraminal stenosis worse on the right side. C6-7: Marked degree of disc space narrowing. Uncovertebral arthrosis. Bilateral neural foraminal stenosis. C7-T1: Normal endplates. Normal disc height and morphology. Normal central canal and intervertebral neuroforamina. Normal visualized soft tissue structures. CT/Spine Cervical without Contras IMPRESSION: Multilevel degenerative changes, as described above. Electronically Signed: Eriberto Allen, at 14:30 EST , Service support ,
[2019-06-15 13:44] LABS: Absolute Lymphocyte Count 1.02 X10^3/uL (0.83-4.51); Absolute Neutrophil Count 6.9 X10^3/uL (2.0-7.7); Basophil# 0.02 X10^3/uL; Basophil% 0.2 % (0-1); Eosinophil# 0.12 X10^3/uL; Eosinophils% 1.3 % (0-5); Hematocrit 45.6 % (40-54); Hemoglobin 14.7 g/dL (13.0-16.5); Lymphocyte # 1.02 X10^3/ul (4.0); Lymphocyte % 11.4 % (19-41); Mean Corp Hgb Conc 32.2 g/dL (32-36); Mean Corpuscular Hgb 30.2 pg (27.0-32.0); Mean Corpuscular Volume 93.8 fL (80-94); Mean Platelet Vol. 9.5 fl (6.2-12.0); Monocyte# 0.81 X10^3/uL; Monocyte% 9.1 % (0-10); NRBC Flagged by Analyzer 0 % (0-5); Neutrophil # 6.93 X10^3/uL (2.7-7.7); Neutrophil % 77.7 % (47-70); Platelet Count 234 K/mm3 (150-450); RBC Distribution Width CV 14.2 % (11.6-14.6); RBC Distribution Width SD 48.8 fl (35.1-43.9); Red Blood Count 4.86 M/mm3 (4.6-6.2); White Blood Count 8.9 K/mm3 (4.4-11.0)
[2019-06-15 13:56] LABS: Anion Gap 4 (5-15); BUN 12 mg/dL (7-18); BUN/Creat Ratio 12.6 RATIO (10-20); Calcium,Total 8.9 mg/dL (8.5-10.1); Chloride 104 mmol/L (98-107); Creatinine, Serum 0.95 mg/dL (0.70-1.30); EST Glomerular Filtration Rate 82 mL/min (>60); Est Glom Filt Rate - Afr Amer 99 mL/min (>60); Estimated Creatinine Clearance 78.26 ml/min; Glucose 107 mg/dL (74-106); Potassium 3.7 mmol/L (3.5-5.1); Sodium Level 139 mmol/L (136-145)
[2019-06-15 14:02] LABS: International Normalized Ratio 1.2; Prothrombin Time (Protime)PT. 15.2 SECONDS (11.7-14.9)
[2019-06-15 14:03] LABS: Partial Thromboplast Time 32.8 Seconds (24.1-36.2)
--- NOTE | 2019-06-15 14:46 | ED.VISSUMM ---
- ER Visit Summary Date of Service: 06/15/19 Chief Complaint: [Fall with head and neck injury] History of Present Illness: The patient is a 73 M [presents to the emergency department with a fall that occurred 4 days ago. Patient states that he lost his balance and fell backwards striking his head on an end table. He is not sure if he had a loss of consciousness because he states that he lives alone. Patient presents because he is having continued swelling to the back of his neck that he is now concerned about. Patient is on Eliquis for history of DVT and believes he has been on the Eliquis for about 8 months. Patient does have a history of GERD, hypertension, high cholesterol. Patient's had a stent in his aorta. Denies any nausea or vomiting.] Patient states yesterday morning he awoke and had some blood on the back of his neck and it was somewhat foul in odor. Physical Examination: [HEENT-PERRLA, EOMI. Cranial nerves II through XII grossly intact. TMs clear. Mucous membranes moist. No adenopathy. Patient has a 3.5 cm laceration to the posterior scalp that is healing without any active bleeding. Patient has hematoma noted to the posterior scalp extending onto the posterior neck that is tender to palpation. Erythema noted and there is an ecchymosis noted. Some warmth noted to the suspected hematoma. Cardiovascular-regular rate and rhythm without murmur or ectopy Lungs-clear to auscultation, chest wall stable without crepitus or subcu emphysema Abdomen-normoactive bowel sounds, soft, nontender, no rebound or rigidity, no peritoneal signs. Extremities-intact ?4, normal range of motion, normal pulses, atraumatic] Test Results: [CT scan of the brain without contrast showed no intracranial hemorrhage or skull fracture and did show a posterior occipital hematoma with no evidence of active bleeding. CT of the cervical spine showed no fractures.] Emergency Department Course and Treatment: [Case was discussed with Dr. Osbaldo Berg the third who was comfortable with discontinuing the Eliquis and seen patient in the office and 3 days. Patient also was started on Keflex 500 mg p.o.] Treatment Plan: [We will be started on Keflex and he will see his primary care physician for wound check in 3 days.] Disposition: [Discharged home in stable condition] Impression: [Closed head injury Posterior occipital/neck hematoma] This note was generated with [employer] dictation software. It may contain incorrect words, spelling, and punctuation that were not noted in review of the chart prior to signing ED Disposition - Plan for ED Patient: Referrals: Osbaldo Berg III, MD [Primary Care Provider] -
--- NOTE | 2019-06-15 15:08 | ED.DEP ---
ED Disposition - Plan for ED Patient: Instructions: SCALP CONTUSION, No Wake Up, Hematoma, LACERATION, Old - Not Sutured Prescriptions: Cephalexin [Keflex] 500 mg PO Q6 #40 cap Transmission Status: Pending to [facility]/pharmacy #[id number] Referrals: Osbaldo Berg III, MD [Primary Care Provider] - 06/18/19
[2019-06-15] MEDS: Diphth,Pertuss(Acell),Tet Vac 0.5 ML Vial IM (16:17)
[2019-06-15] MEDS: Cephalexin Suspension 250 MG/5 ML PO.SYRINGE 500 MG PO (16:23)
[2019-06-15] MEDS: 0.9% Normal Saline 1,000 ML 150 ML IV (16:24)
[2019-06-15 16:34] VITALS: BP 121/78; PULSE 67; RESP 16; O2SAT 96
== END 2019-06-15 16:37 | disposition home or self-care (01) ==
LOC: ED 12:54
PROVIDERS: Emergency Provider Emergency Medicine; Family Provider Family Medicine; PCP Family Medicine
DX: S00.03XA Contusion of scalp, initial encounter (principal); S10.93XA Contusion of unspecified part of neck, initial encounter; S01.01XA Laceration without foreign body of scalp, initial encounter; W19.XXXA Unspecified fall, initial encounter; Y93.89 Activity, other specified; Z86.718 Personal history of other venous thrombosis and embolism; Z79.01 Long term (current) use of anticoagulants; I10 Essential (primary) hypertension; E78.00 Pure hypercholesterolemia, unspecified; K21.9 Gastro-esophageal reflux disease without esophagitis
CPT/HCPCS: 70450; 72125; 80048; 85025; 85610; 85730; 90471; 90715; 99284; J7030; A4216

== ENCOUNTER 2019-07-30 11:35 | Day surgery (SDC) | payer MEDICARE, SELFPAY ==
[2019-07-08 14:05] VITALS: BMI 35.2
--- NOTE | 2019-07-29 22:51 | PCM.HP.BLA ---
History and Physical Date of Admission: 07/30/19 HISTORY OF PRESENT ILLNESS Comes in today for evaluation for TBSE. He has used Aldara recently on areas of left cheek, nasal dorsum, dorsal distal right forearm and dorsum of hand, right lateral forehead by hairline, and top of scalp. The left cheek lesion is persistent and the lesions dorsal distal right forearm and dorsum of right hand are persistent. The lesion nasal dorsum is smooth and healed after using Aldara. The lesion right lateral forehead by hairline is smooth and healed after using Aldara. The lesions cluster top of scalp are smooth and healed after using Aldara. He has a new onset lesion on his left congregation area in the hairline that is scabby and increased in size over the last couple of months. His right posterior neck, superior, actinic lesion remains smooth and healed at this time. This is the only area that he has had trouble in the past with Aldara. So we have been observing this lesion. He presents today for further evaluation and treatment. 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 Personal history of skin cancer Squamous cell cancer of external ear AAA (abdominal aortic aneurysm) ACTINIC LESION WITH SEVERE ATYPIA ATYPICAL SQUAMOUS EPITHELIAL LESION WITH SOLAR KERATOSIS ATYPICAL SQUAMOUS LESION LEFT PREAURICULAR AREA Actinic keratosis Carpal tunnel syndrome Cataract GERD (gastroesophageal reflux disease) Hyperlipidemia INFLAMED ACTINIC KERATOSIS INFLAMED ACTINIC KERATOSIS RIGHT VOLAR FOREARM Nodule of right lung Prostate enlargement Pulmonary emphysema SCATTERED ACTINIC DAMAGE ON FACE AND UPPER EXTREMITIES Seborrheic keratosis Situational depression Solar keratosis Venous insufficiency of both lower extremities Hypertension PAST SURGICAL HISTORY EXCISION ATYPICAL SQUAMOUS LESION EXCISION OF SKIN CANCER FACE AND HANDS H/O knee surgery basal cell carcinoma excision carpal tunnel surgery cholecystectomy squamous cell carcinoma excision cataract surgery INTRADERMAL EXCISION LESIONS S/P AAA repair ALLERGIES adhesive atorvastatin [From Lipitor] rosuvastatin calcium [From Crestor] MEDICATIONS Finasteride [Proscar] Omeprazole [Prilosec] Tamsulosin HCl [Flomax] Fluoxetine HCl [Prozac] brimonidine timolol maleate Carvedilol [Coreg (Beta Junito)] Amlodipine [Norvasc] apixaban imiquimod 5 % Cephalexin [Keflex] FAMILY HISTORY Sister - Diabetes SOCIAL HISTORY Smoking Status: Never smoker alcohol intake: current substance use type: does not use REVIEW OF SYSTEMS General-denies fever, fatigue, and weight loss. Eyes-denies eye pain. His cataracts. Denies glaucoma. ENT-denies nasal congestion sore throat. Cardiovascular-denies chest pain, fatigue, lightheadedness, and shortness of breath with exertion. Respiratory-complains of shortness of breath. Denies cough. Patient has a history of smoking and has quit. Chews tobacco now. Gastrointestinal-denies nausea, vomiting, diarrhea, and constipation. Genitourinary-complains of urinary frequency. Denies hematuria. Has prostate enlargement. Musculoskeletal-denies back pain, stiffness, muscle weakness, or arthritis. Had bilateral carpal tunnel surgery. Had knee surgeries ?5. Skin- Has actinic lesions on his dorsal distal right forearm and dorsum of hand that are persistent after using Aldara. Has enlarging lesion left cheek. Has enlarging lesion left congregation in the hairline. Has actinic lesion right posterior neck, superior, that is smooth and stable at this time. He has had multiple skin cancers removed in the past and multiple actinic lesions removed in the past. Neuro-denies poor balance, headaches, or weakness. Psych-denies anxiety depression. Endocrine-denies excessive thirst or urination. Hematologic-denies abnormal bruising and bleeding. PHYSICAL EXAMINATION General - Alert and oriented. HEENT -pupils equal round and reactive to light. Extraocular muscles intact. Throat is clear. On his left cheek is an erythematous lesion that is raised in configuration. It is nodular. Has irregular borders. No ulceration. Lesion is nontender. Measures 8 mm. On the left congregation in hairline is a dry scabby lesion that measures 1 cm. Has irregular borders. No ulceration. Lesion is nontender. On the nasal dorsum was an actinic lesion that appears smooth and healed at this time after using Aldara. On the right lateral forehead by hairline was an actinic lesion that appears smooth and healed at this time after using Aldara. On the top of scalp were actinic lesions cluster x3 that appear smooth and healed at this time after using Aldara. Neck-no cervical adenopathy. No masses. On the right posterior neck, superior, by occipital hairline is an actinic lesion that appears smooth and stable at this time. No ulceration. Chest wall-No suspicious lesions noted Lungs-Clear to auscultation. Heart-regular rate and rhythm. Abdomen-soft and nondistended. No suspicious lesions noted. Back-no suspicious lesions noted. Extremities-no clubbing cyanosis or edema with full range of motion of all joints. On the dorsum right hand by index finger is a healed skin graft after excision of a squamous cell carcinoma. On the dorsal distal right forearm is a cutaneous horn lesion that measures 8 mm. Raised in configuration. Has irregular borders. No ulceration. Lesion is nontender. On the dorsum of hand on the ulnar aspect are two lesions, one proximal and one distal, that each measure 8 mm. Scabby. No ulceration. Has irregular borders. Lesions are nontender. Lesions appear actinic in nature. No axillary adenopathy. Radial pulses are palpable. Neuro--cranial nerves II through XII grossly intact. ASSESSMENT 1. 8 mm lesion left cheek, clinically consistent with basal cell carcinoma. 2. 8 mm cutaneous horn lesion dorsal distal right forearm. 3. 8 mm lesions x2 dorsum of right hand, ulnar aspect, one proximal and one distal. 4. 1 cm actinic lesion left congregation in hairline. 5. Actinic lesion nasal dorsum, healed after using Aldara. 6. Actinic lesion right posterior neck, superior, by occipital hairline, stable. 7. Actinic lesion right lateral forehead by hairline, healed after using Aldara. 8. Actinic lesions cluster x3 top of scalp, healed after using Aldara. 9. Personal history of skin cancer. 10. Former smoker. PLAN Recommend excising the lesions (left cheek, dorsal distal right forearm, dorsum right hand x2, and left congregation in hairline) and send them to Pathology for analysis to rule out carcinoma. If carcinoma is present, then further excision will be done with skin flap or skin graft reconstruction. Surgery will be done on an outpatient basis under local anesthesia and IV sedation. Patient was informed of the risks and complications of the procedure including alternatives to surgery. These were discussed with the patient personally. Patient voices understanding and wishes to proceed. Some of the risks and complications were included in a form from the [employer].
--- NOTE | 2019-07-30 | LES_PTH ---
PATIENT: VICKI RANDLE LOC: [facility] – [place] U#:[id number] AGE/SX: 74/M ROOM: RE07/30/[address]: Dr. Francis Dudley MD : 1945 BED: DIS: 07/30/2019 SPEC #: [id number] RECD: 07/30/19 13:57 STATUS: MALISSA RELee #: [id number] MARISELA: 07/30/19 00:[address]: Francis Dudley DEPT: SURGICAL PATHOLOGY RECD BY: Abimbola Pitt ENTERED: 07/30/19 14:46 SP TYPE: Lesion OTHR DR: Dr. sObaldo Berg III, MD Tissues: A - Skin of face, NOS B - Skin of face, NOS C - Skin of hand and finger, NOS D - Skin of hand and finger, NOS E - Skin of forearm, NOS F - Skin of face, NOS G - Skin of hand and finger, NOS H - Skin of hand and finger, NOS Procedures: Frozen Section (charge) Surgery Specimen Level IV HEADER OPERATION: Excision lesions left cheek, dorsal right forearm, dorsum right hand PRE-OP DIAGNOSIS: Lesions left cheek, dorsal distal right forearm, x2 dorsum right hand, proximal and distal, lesion left anabaptism TISSUE SUBMITTED: A - Lesion left cheek FS, B - Lesion left anabaptism FS, C - Lesion dorsum right hand ulnar aspect distal FS, D - Lesion dorsum right hand proximal FS, E - Lesion right forearm FS, F - Permanent - left cheek lesion, suture at 12 o'clock, G - Permanent - right hand ulnar aspect proximal, suture at 12 o'clock, H - Permanent - right hand ulnar aspect distal, suture at 12 o'clock FROZEN SECTION DIAGNOSIS A. Skin lesion of left cheek, shave biopsy: Squamous cell carcinoma extending to deep margin of excision. B. Skin lesion of left anabaptism, shave biopsy: Actinic keratosis with focal moderate atypia. C. Skin lesion, dorsum right hand, distal, shave biopsy: Actinic keratosis. D. Skin lesion, dorsum right hand, proximal, shave biopsy: Actinic keratosis with moderate atypia. E. Skin lesion, right forearm, shave biopsy: Actinic keratosis with moderate atypia. AM:nguyễn 07/30/19 Case has been reviewed in consultation with Dr. Alexandre who concurs with the above diagnosis. IDC:SJ MICROSCOPIC DIAGNOSIS A. Skin of left cheek, shave biopsy: Squamous cell carcinoma in situ with focal area suspicious for invasive squamous cell carcinoma (0.7 cm in greatest dimension), extending to the deep margin of the excision. B. Skin lesion left anabaptism, shave biopsy: Actinic keratosis with focal moderate atypia. Solar elastosis. C. Skin lesion dorsum right hand, distal, shave biopsy: Actinic keratosis. Solar elastosis. D. Skin lesion dorsum right hand, proximal, shave biopsy: Inflamed actinic keratosis with moderate atypia. Solar elastosis. E. Skin lesion right forearm, shave biopsy: Actinic keratosis with mild to moderate atypia. Solar elastosis. F. Left cheek lesion, excisional biopsy: Squamous cell carcinoma in situ (0.5 cm in greatest dimension), completely excised. Focal ulceration consistent with site of specimen A. G. Right hand ulnar aspect, proximal, excisional biopsy: Actinic keratosis with mild to moderate atypia. Focal ulceration consistent with site of specimen D. Solar elastosis. H. Right hand ulnar aspect, distal, excisional biopsy: Actinic keratosis with mild atypia. Focal ulceration consistent with site of specimen C. Solar elastosis. JUNIOR:nguyễn 08/03/19 MICROSCOPIC DESCRIPTION Slides are reviewed. GROSS DESCRIPTION A - Received fresh for frozen section diagnosis labeled with the patient's name is a specimen designated lesion left cheek. The specimen consists of a round piece of barkley-white skin measuring 1 x 0.9 x 0.1 cm. A focal area of ulceration is noted in the center measuring 0.7 cm in diameter. The specimen is inked, bisected and submitted entirely for frozen section diagnosis in one cassette. / JUNIOR:nguyễn 07/30/19 B - Received fresh for frozen section diagnosis labeled with the patient's name is a specimen designated lesion left anabaptism. The specimen consists of two pieces of barkley-white skin measuring 1 x 0.7 x 0.1 cm and 0.7 x 0.1 x 0.1 cm. The larger piece is bisected. The entire specimen is submitted for frozen section in one cassette. / : 07/30/19 C - Received fresh for frozen section diagnosis labeled with the patient's name is a specimen designated lesion dorsum right hand ulnar aspect distal. The specimen consists of a shave biopsy of barkley-white skin measuring 1.5 x 1.2 x 0.1 cm. The specimen is serially sectioned and submitted for frozen section diagnosis in one cassette. / : 07/30/19 D - Received fresh for frozen section diagnosis labeled with the patient's name is a specimen designated lesion dorsum right hand proximal. The specimen consists of a shave biopsy of barkley-white skin measuring 1 x 1 x 0.1 cm. The specimen is inked, bisected and submitted entirely for frozen section diagnosis in one cassette. / : 07/30/19 E - Received fresh for frozen section diagnosis labeled with the patient's name is a specimen designated lesion right forearm. The specimen consists of a shave biopsy of barkley-white skin measuring 1 x 0.6 x 0.1 cm. The specimen is inked, bisected and submitted entirely for frozen section diagnosis in one cassette. / : 07/30/19 F - Received in fixative is one container labeled with the patient's name and designated permanent, left cheek, suture at 12 o'clock. The specimen consists of a william-shaped piece of barkley-white skin measuring 2.5 x 2 cm and up to 0.4 cm in thickness. The specimen is inked as follows: 12 to 3 o'clock - black, 3 to 6 o'clock - blue, 6 to 9 o'clock - green and 9 to 12 o'clock - yellow. The skin surface shows a focal area of ulceration consistent with site of specimen A. The specimen is serially sectioned and submitted entirely in two cassettes. / : 08/02/19 G - Received in fixative is one container labeled with the patient's name and designated permanent, right ulnar aspect proximal, suture at 12 o'clock. The specimen consists of a piece of barkley-white skin ellipse measuring 3.5 x 2 cm and 0.2 cm in thickness. The specimen is triangular in shape. The specimen is inked as follows: 12 o'clock margin - yellow, 6 o'clock margin - black, 3 o'clock margin - blue, 9 o'clock margin - green and deep margin - red. The skin surface shows a focal area of ulceration consistent with site of specimen D. The specimen is serially sectioned and submitted entirely in three cassettes. Cassette 1 contains the 6 and 12 o'clock margin. / JUNIOR:nguyễn 08/02/19 H - Received in fixative is one container labeled with the patient's name and designated permanent, right hand ulnar aspect distal, suture at 12 o'clock. The specimen consists of an irregular piece of barkley-white skin measuring 3 x 2.2 x 0.2 cm. The specimen is inked as follows: 12 o'clock margin - yellow, 6 o'clock margin - black, 3 o'clock margin - blue, 9 o'clock margin - green and deep margin - red. The skin surface shows a focal area of ulceration consistent with site of specimen C. The specimen is serially sectioned and submitted entirely in three cassettes. Cassette 1 contains the 3 and 9 o'clock margin. / JUNIOR:nguyễn 08/02/19 TC:0 CPT: 23593 x8, 42247 x5
--- NOTE | 2019-07-30 | LES_PTH ---
PATIENT: VICKI RANDLE LOC: [facility] [place] U#:[id number] AGE/SX: 74/M ROOM: RE07/30/[address]: Dr. Francis Dudley MD : 1945 BED: DIS: 07/30/2019 SPEC #: [id number] RECD: 07/30/19 13:57 STATUS: MALISSA RELee #: [id number] MARISELA: 07/30/19 00:[address]: Francis Dudley DEPT: SURGICAL PATHOLOGY RECD BY: Abimbola Pitt ENTERED: 07/30/19 14:46 SP TYPE: Lesion OTHR DR: Dr. Osbaldo Berg III, MD Tissues: A - Skin of face, NOS B - Skin of face, NOS C - Skin of hand and finger, NOS D - Skin of hand and finger, NOS E - Skin of forearm, NOS F - Skin of face, NOS G - Skin of hand and finger, NOS H - Skin of hand and finger, NOS Procedures: Frozen Section (charge) Surgery Specimen Level IV HEADER OPERATION: Excision lesions left cheek, dorsal right forearm, dorsum right hand PRE-OP DIAGNOSIS: Lesions left cheek, dorsal distal right forearm, x2 dorsum right hand, proximal and distal, lesion left uatsdin TISSUE SUBMITTED: A - Lesion left cheek FS, B - Lesion left uatsdin FS, C - Lesion dorsum right hand ulnar aspect distal FS, D - Lesion dorsum right hand proximal FS, E - Lesion right forearm FS, F - Permanent - left cheek lesion, suture at 12 o'clock, G - Permanent - right hand ulnar aspect proximal, suture at 12 o'clock, H - Permanent - right hand ulnar aspect distal, suture at 12 o'clock FROZEN SECTION DIAGNOSIS A. Skin lesion of left cheek, shave biopsy: Squamous cell carcinoma extending to deep margin of excision. B. Skin lesion of left uatsdin, shave biopsy: Actinic keratosis with focal moderate atypia. C. Skin lesion, dorsum right hand, distal, shave biopsy: Actinic keratosis. D. Skin lesion, dorsum right hand, proximal, shave biopsy: Actinic keratosis with moderate atypia. E. Skin lesion, right forehead, shave biopsy: Actinic keratosis with moderate atypia. AM:nguyễn 07/30/19 Case has been reviewed in consultation with Dr. Alexandre who concurs with the above diagnosis. IDC:SJ MICROSCOPIC DIAGNOSIS A. Skin of left cheek, shave biopsy: Squamous cell carcinoma in situ with focal area suspicious for invasive squamous cell carcinoma (0.7 cm in greatest dimension), extending to the deep margin of the excision. B. Skin lesion left uatsdin, shave biopsy: Actinic keratosis with focal moderate atypia. Solar elastosis. C. Skin lesion dorsum right hand, distal, shave biopsy: Actinic keratosis. Solar elastosis. D. Skin lesion dorsum right hand, proximal, shave biopsy: Inflamed actinic keratosis with moderate atypia. Solar elastosis. E. Skin lesion right forehead, shave biopsy: Actinic keratosis with mild to moderate atypia. Solar elastosis. F. Left cheek lesion, excisional biopsy: Squamous cell carcinoma in situ (0.5 cm in greatest dimension), completely excised. Focal ulceration consistent with site of specimen A. G. Right hand ulnar aspect, proximal, excisional biopsy: Actinic keratosis with mild to moderate atypia. Focal ulceration consistent with site of specimen D. Solar elastosis. H. Right hand ulnar aspect, distal, excisional biopsy: Actinic keratosis with mild atypia. Focal ulceration consistent with site of specimen C. Solar elastosis. JUNIOR:nguyễn 08/03/19 MICROSCOPIC DESCRIPTION Slides are reviewed. GROSS DESCRIPTION A - Received fresh for frozen section diagnosis labeled with the patient's name is a specimen designated lesion left cheek. The specimen consists of a round piece of barkley-white skin measuring 1 x 0.9 x 0.1 cm. A focal area of ulceration is noted in the center measuring 0.7 cm in diameter. The specimen is inked, bisected and submitted entirely for frozen section diagnosis in one cassette. / JUNIOR:nguyễn 07/30/19 B - Received fresh for frozen section diagnosis labeled with the patient's name is a specimen designated lesion left uatsdin. The specimen consists of two pieces of barkley-white skin measuring 1 x 0.7 x 0.1 cm and 0.7 x 0.1 x 0.1 cm. The larger piece is bisected. The entire specimen is submitted for frozen section in one cassette. / : 07/30/19 C - Received fresh for frozen section diagnosis labeled with the patient's name is a specimen designated lesion dorsum right hand ulnar aspect distal. The specimen consists of a shave biopsy of barkley-white skin measuring 1.5 x 1.2 x 0.1 cm. The specimen is serially sectioned and submitted for frozen section diagnosis in one cassette. / : 07/30/19 D - Received fresh for frozen section diagnosis labeled with the patient's name is a specimen designated lesion dorsum right hand proximal. The specimen consists of a shave biopsy of barkley-white skin measuring 1 x 1 x 0.1 cm. The specimen is inked, bisected and submitted entirely for frozen section diagnosis in one cassette. / : 07/30/19 E - Received fresh for frozen section diagnosis labeled with the patient's name is a specimen designated lesion right forearm. The specimen consists of a shave biopsy of barkley-white skin measuring 1 x 0.6 x 0.1 cm. The specimen is inked, bisected and submitted entirely for frozen section diagnosis in one cassette. / : 07/30/19 F - Received in fixative is one container labeled with the patient's name and designated permanent, left cheek, suture at 12 o'clock. The specimen consists of a william-shaped piece of barkley-white skin measuring 2.5 x 2 cm and up to 0.4 cm in thickness. The specimen is inked as follows: 12 to 3 o'clock - black, 3 to 6 o'clock - blue, 6 to 9 o'clock - green and 9 to 12 o'clock - yellow. The skin surface shows a focal area of ulceration consistent with site of specimen A. The specimen is serially sectioned and submitted entirely in two cassettes. / : 08/02/19 G - Received in fixative is one container labeled with the patient's name and designated permanent, right ulnar aspect proximal, suture at 12 o'clock. The specimen consists of a piece of barkley-white skin ellipse measuring 3.5 x 2 cm and 0.2 cm in thickness. The specimen is triangular in shape. The specimen is inked as follows: 12 o'clock margin - yellow, 6 o'clock margin - black, 3 o'clock margin - blue, 9 o'clock margin - green and deep margin - red. The skin surface shows a focal area of ulceration consistent with site of specimen D. The specimen is serially sectioned and submitted entirely in three cassettes. Cassette 1 contains the 6 and 12 o'clock margin. / JUNIOR:nguyễn 08/02/19 H - Received in fixative is one container labeled with the patient's name and designated permanent, right hand ulnar aspect distal, suture at 12 o'clock. The specimen consists of an irregular piece of barkley-white skin measuring 3 x 2.2 x 0.2 cm. The specimen is inked as follows: 12 o'clock margin - yellow, 6 o'clock margin - black, 3 o'clock margin - blue, 9 o'clock margin - green and deep margin - red. The skin surface shows a focal area of ulceration consistent with site of specimen C. The specimen is serially sectioned and submitted entirely in three cassettes. Cassette 1 contains the 3 and 9 o'clock margin. / JUNIOR:nguyễn 08/02/19 TC:0 CPT: 47559 x8, 82421 x5
[2019-07-30 12:30] VITALS: BP 151/81; PULSE 62; RESP 16; TEMP 36.7; O2SAT 98; BMI 35.2
[2019-07-30] MEDS: Lactated Ringers 1,000 ML 100 ML IV ×2 (12:36→16:03)
[2019-07-30] MEDS: Silver Nitrate (BKC) 1 EACH (14:20)
--- NOTE | 2019-07-30 15:46 | PCM.OPRPT ---
Report of Operation Date of Procedure: 07/30/19 Pre-Operative Diagnosis: 1. 8 mm lesion left cheek, clinically consistent with basal cell carcinoma. 2. 8 mm lesion dorsum right hand, ulnar aspect, proximal. 3. 8 mm lesion dorsum right hand, ulnar aspect, distal. 4. 8 mm cutaneous horn lesion dorsal distal right forearm. 5. 1 cm actinic lesion left bahai in hairline. 6. Personal history of skin cancer. 7. Former smoker. Post-Operative Diagnosis: 1. 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 2. 8 mm actinic keratosis with moderate atypia dorsum right hand, ulnar aspect, proximal. 3. 8 mm actinic keratosis with moderate atypia dorsum right hand, ulnar aspect, distal. 4. 8 mm actinic keratosis dorsal distal right forearm. 5. 1 cm actinic keratosis left bahai in hairline. 6. Personal history of skin cancer. 7. Former smoker. Surgery/Procedure Performed:: 1. Excision 8 mm squamous cell carcinoma left cheek with rhomboid transposition skin flap reconstruction (6.48 cm2). 2. Excision 8 mm actinic keratosis with moderate atypia dorsum right hand, ulnar aspect, proximal, with FTSG reconstruction from right flank (10 cm2). 3. Excision 8 mm actinic keratosis with moderate atypia dorsum right hand, ulnar aspect, distal, with FTSG reconstruction from right flank (14 cm2). 4. Intadermal excision 8 mm actinic keratosis dorsal distal right forearm. 5. Intradermal excision 1 cm actinic keratosis left bahai in hairline. Description of Surgical Findings:: Comes in today for evaluation for TBSE. He has used Aldara recently on areas of left cheek, nasal dorsum, dorsal distal right forearm and dorsum of hand, right lateral forehead by hairline, and top of scalp. The left cheek lesion is persistent and the lesions dorsal distal right forearm and dorsum of right hand are persistent. The lesion nasal dorsum is smooth and healed after using Aldara. The lesion right lateral forehead by hairline is smooth and healed after using Aldara. The lesions cluster top of scalp are smooth and healed after using Aldara. He has a new onset lesion on his left bahai area in the hairline that is scabby and increased in size over the last couple of months. His right posterior neck, superior, actinic lesion remains smooth and healed at this time. This is the only area that he has had trouble in the past with Kavita. So we have been observing this lesion. Patient was informed of the risks and complications of the procedure including alternatives to surgery. These were discussed with the patient personally. Patient voices understanding and wishes to proceed. Some of the risks and complications were included in a form from the [employer]. Frozen section left cheek - squamous cell carcinoma. Frozen section left bahai in the hairline - actinic keratosis and no carcinoma seen. Frozen section dorsal distal right forearm - actinic keratosis and no carcinoma seen. Frozen section dorsum right hand ulnar aspect, proximal - actinic keratosis with moderate atypia. Frozen section dorsum right hand ulnar aspect, distal - actinic keratosis with moderate atypia. I used AmnioFill Placental Connective Tissue Powder, 250 mg. Catalog Number - [id number]. Lot Number - [id number]. Expiration - March. quality improvement consultant: Dominga Townsend. Type of Anesthesia:: General Specimen's removed: 1. Lesion left cheek to Pathology as a frozen section. 2. Lesion dorsum right hand, ulnar aspect, proximal, to Pathology as a frozen section. 3. Lesion dorsum right hand, ulnar aspect, distal, to Pathology as a frozen section. 4. Lesion dorsal distal right forearm to Pathology as a frozen section. 5. Lesion left bahai in hairline to Pathology as a frozen section. 6. Squamous cell carcinoma left cheek to Pathology. 7. Actinic keratosis with moderate atypia dorsum right hand, ulnar aspect, proximal, to Pathology. 8. Actinic keratosis with moderate atypia dorsum right hand, ulnar aspect, distal, to Pathology. Drains: None. Estimated Blood Loss (mL): 20 ml. Description of Procedure: Patient was taken to OR in supine position and was placed under general anesthesia. The face, neck, right hand and forearm, and right flank areas were prepped and draped in the usual fashion. SCD's were placed for DVT prophylaxis. Perioperative antibiotics were given intravenously. Using xylocaine with epinephrine, the lesions left cheek, left bahai in hairline, dorsal distal right forearm, dorsum right hand, ulnar aspect, proximal and distal, were infiltrated. After waiting 5 minutes for the anesthetic to take effect, the lesions were excised in an intradermal fashion and sent to Pathology as a frozen section for analysis to rule out carcinoma. The dorsal distal right forearm lesion had a cutaneous horn component so a deeper intradermal excision was done to capture the base of the lesion to evaluate for carcinoma. Frozen sections showed the left cheek lesion was a squamous cell carcinoma, the left bahai in hairline lesion was an actinic keratosis and no carcinoma seen, the dorsal distal right forearm lesion was an actinic keratosis and no carcinoma seen, the dorsum right hand, ulnar aspect, proximal, lesion was an actinic keratosis with moderate atypia, and the dorsum right hand, ulnar aspect, distal, lesion was an actinic keratosis with moderate atypia. The actinic keratosis lesions (left bahai in hairline and dorsal distal right forearm) were dressed with Silver nitrate chemical cauterization followed by antibiotic ointment and Op-site dressings. Postdischarge, these lesions will be treated with Aldara. The left cheek lesion which was a squamous cell carcinoma was re-excised in a rhomboid fashion with 5 mm margin in all directions thus making it a 1.8 cm excision. A suture was marked at 12 oclock position for pathology orientation. The lesion was sent to Pathology for analysis to rule out carcinoma at the margins. A rhomboid flap was designed adjacent to the defect. Incisions were made and the rhomboid flap was elevated on a subcutaneous pedicle toward the underlying musculature. The flap was easily transposed into the defect with minimal tension and minimal distortion. Hemostasis was obtained with electrocautery. The flap was transposed into the defect and closed in a layered fashion with 5-0 Monocryl interrupted sutures for the deep dermis and subcutaneous tissue. The skin was approximated with 6-0 Prolene simple interrupted sutures. Steri-strips were applied followed by antibiotic ointment. The size of the wound and the size of the flap needed to close the defect was 6.48 cm2. The dorsum right hand, ulnar aspect, proximal and distal, lesions which were actinic keratoses with moderate atypia were re-excised with a 6 mm margin in all directions thus making it a 2 cm excision for both lesions. With his history of skin cancers, there may be a focus of invasive carcinoma in the re-excision which is why I went with a 6 mm margin so I wouldn't have to re-excise at a later date if invasive carcinoma was found on the final pathology. There was a small intervening skin bridge between both lesions that was included in the excision so I would only have one defect to skin graft instead of two smaller ones. A suture was marked at 12 oclock position for both lesions for pathology orientation. Both lesions were sent separately to Pathology for analysis to rule out carcinoma. The size of the defect for the skin graft was 4 x 6 cm or 24 cm2. The proximal lesion wound was 10 cm2 and the distal lesion wound was 14 cm2. Hemostasis was obtained with electrocautery. I marked out an ellipse of skin on the right flank. The markings were infiltrated with xylcoaine with epinephrine. An ellipse of skin was excised into the subcutaneous tissue. The subcutaneous tissue was removed at the level of the dermis thus fashioning a full thickness skin graft. The skin graft was placed in saline. I excised additional subcutaneous tissue to aid in wound closure. Hemostasis was obtained with electrocautery. The donor wound was closed in multiple layers with 3-0 Monocryl figure of eight interrupted sutures for Elba's fascial layer. The deep dermis and subcutaneous tissue was approximated with 3-0 Monocryl interrupted sutures. The skin was approximated with 3-0 V lock unidirectional barbed running subcuticular suture. This was followed with Histoacryl skin tissue adhesive and a Kerlix gauze dressing. The full thickness skin graft was placed on the wound dorsum right hand, ulnar aspect, and secured to the skin edges with 3-0 Chromic simple interrupted sutures. Before the sutures were placed, I placed AmnioFill placental connective tissue powder under the skin graft in the wound bed to help promote healing of the skin graft. 3-0 Chromic sutures were also used for central quilting stabilization. Antibiotic ointment was applied to the skin graft followed by Xeroform gauze and cotton balls soaked in saline followed by 3-0 Nylon tie over stent suture dressing. Dry gauze was placed over the stent suture dressing followed by a compression ROBBIN wrap. Patient tolerated the procedure well and was sent to PACU in satisfactory condition. Patient will be sent home on antibiotics and pain medication. He will keep his head and right arm elevated during the initial postoperative period. Patient will followup next week on Friday for a wound check and takedown of the skin graft dressing and for discussion of the pathology report and for removal of the sutures of the left cheek. Grafts/Implants Used: AmnioFill placental connective tissue powder. - Complications None. - Admit VTE Documentation VTE Present on Admission: No VTE Mechan Device Prophylaxis: SCD's VTE Pharm Prophylaxis ordered?: No Code Visit Surgery Charges CPT - 61628 ICD-10 - C44.329, D49.2, L57.0, Z85.828, Z87.891 13571 L57.0, D49.2, Z85.828, Z87.891 34031 L57.0, D49.2, Z85.828, Z87.891 77950 L57.0, D49.2, Z85.828, Z87.891 89884 L57.0, D49.2, Z85.828, Z87.891 59306 L57.0, D49.2, Z85.828, Z87.891 86942 L57.0, D49.2, Z85.828, Z87.891
[2019-07-30 15:53] VITALS: BP 134/67; BP 151/81; PULSE 74; RESP 18; TEMP 36.2; O2SAT 100
[2019-07-30 16:00] VITALS: BP 133/73; BP 151/81; PULSE 71; RESP 16; O2SAT 96
--- NOTE | 2019-07-30 16:03 | DCINST_ITS ---
You will use the following diet at home:: No restrictions Discharge Activity: May not drive while taking narcotic pain medications., May Shower - in two days. Place a plastic bag ove right hand when showering., - - keep head elevated. no heavy lifting. May shower in (days): 2 - wear plastic bag over right arm when showering. May resume sexual activity in: No Restrictions Weight Bearing Status: Weight bearing as tolerated Lifting Restrictions: 20 lbs. Keep extremity elevated above heart level: Right Arm, - - elevate head. Call your doctor if your incision/area has: Continuous Slow Oozing, Sudden Increased Bleeding, Increased Pain/ Swelling, Increased Redness, Foul Smelling Discharge, Swelling at the incision site Call your doctor if you observe: Fever of 101 or Higher, Coldness, Increased Pain, Shortness of breath, Chest pain, Calf discomfort, Uncontrolled pain Suture Line Care: - - place antibiotic ointment to suture line left cheek and wounds left religious and right forearm daily. keep shimon wrap compression dressing dry on right hand. Change Dressing in (Days):: 5 - will remove skin graft dressing in 5 days. Cleanse incision/area with: - - may shower in two days and place plastic bag over right hand when showering. Allergies/Adverse Reactions: Allergies adhesive Adverse Reaction (Verified 07/30/19 12:29) Itching atorvastatin [From Lipitor] Adverse Reaction (Verified 07/30/19 12:29) Other rosuvastatin calcium [From Crestor] Adverse Reaction (Verified 07/30/19 12:29) ACHING Medications to take at Discharge Finasteride [Proscar] 5 mg PO DAILY 11/18/13 Omeprazole [Prilosec] 20 mg PO DAILY 11/18/13 Tamsulosin HCl [Flomax] 0.4 mg PO DAILY 11/18/13 Fluoxetine HCl [Prozac] 20 mg PO DAILY 12/27/16 brimonidine 0.2 % eye drops 1 drp OPHTHALMIC BID ml 08/05/17 timolol maleate 0.5 % eye drops 1 drp OPHTHALMIC BID 08/05/17 Carvedilol [Coreg (Beta Junito)] 3.125 mg PO BID #60 tab 09/10/17 Amlodipine [Norvasc] 10 mg PO QHS 04/21/18 imiquimod 5 % topical cream packet 1 applic TOPICAL 5XW #30 ea 12/05/19 Clindamycin HCl [Cleocin] 300 mg PO TID #15 cap 07/30/19 Lactobacillus Acidophilus/Fos [Acidophilus Probiotic Tablet] 1 ea PO BID #20 tab 07/30/19 Oxycodone HCl/Acetaminophen [Percocet 5/325] 1 tablet PO Q4H PRN PRN 7 Days #40 tablet 07/30/19 The following prescriptions were given: Lactobacillus Acidophilus/Fos [Acidophilus Probiotic Tablet] 1 ea PO BID #20 tab Transmission Status: Pending to [id number] Clindamycin HCl [Cleocin] 300 mg PO TID #15 cap Transmission Status: Pending to [id number] Oxycodone HCl/Acetaminophen [Percocet 5/325] 1 tablet PO Q4H PRN PRN 7 Days #40 tablet PRN Reason: Pain Score 4-5/10 Transmission Status: Received by [id number] Primary Care Physician: Osbaldo Berg III, MD [Primary Care Provider] - Test Results: Test results from this visit will be discussed in further detail at your follow- up appointment, if applicable. Please Follow Up With: Francis Dudley MD When: 08/04/19. call [phone] for appt. Proposed Discharge Date: 07/30/19
[2019-07-30 16:15] VITALS: BP 141/73; BP 151/81; PULSE 71; RESP 16; O2SAT 95
[2019-07-30 16:27] VITALS: BP 145/74; BP 151/81; PULSE 72; RESP 16; TEMP 36.3; O2SAT 97
[2019-07-30 16:57] VITALS: BP 151/81
== END 2019-07-30 17:07 | disposition home or self-care (01) ==
LOC: SDC 11:35 → AC 11:38
PROVIDERS: PCP Family Medicine; Referring Provider Surgery; Visit Provider Surgery
PROC: (CPT 11401; principal; 2019-07-30 13:00)
DX: C44.329 Squamous cell carcinoma of skin of other parts of face (principal); L57.0 Actinic keratosis; L57.8 Other skin changes due to chronic exposure to nonionizing radiation; K21.9 Gastro-esophageal reflux disease without esophagitis; E78.5 Hyperlipidemia, unspecified; I10 Essential (primary) hypertension; L85.8 Other specified epidermal thickening; F32.9 Major depressive disorder, single episode, unspecified; Z79.899 Other long term (current) drug therapy; Z85.828 Personal history of other malignant neoplasm of skin; Z87.891 Personal history of nicotine dependence; Z86.718 Personal history of other venous thrombosis and embolism
CPT/HCPCS: 00300; 11401; 11422; 11441; 14040; 15240; 15241; 88305; 88331; J7120

== ENCOUNTER → 2019-08-16 17:43 | Outpatient (CLI) | payer MEDICARE, SELFPAY ==
[2019-08-16 15:31] VITALS: BMI 35.2
== END ==
PROVIDERS: PCP Family Medicine; Visit Provider Surgery
DX: L57.0 Actinic keratosis (principal); T86.828 Other complications of skin graft (allograft) (autograft); Z85.828 Personal history of other malignant neoplasm of skin
CPT/HCPCS: 87070; 87075; 87077; 87186; 87205

== ENCOUNTER → 2019-10-04 13:47 | Outpatient (CLI) | payer MEDICARE, SELFPAY ==
[2019-09-17 13:52] VITALS: BMI 35.2
[2019-10-01 13:57] VITALS: BMI 35.2
--- NOTE | 2019-10-04 13:48 | CT_ITS ---
STUDY: CTA OF THE ABDOMINAL AORTA AND BILATERAL LOWER EXTREMITIES REASON FOR EXAM: Male, 74 years old patient with recent abdominal aortic aneurysm repair on September 09, 2017, presents for follow-up evaluation. No known problems. RADIATION DOSAGE (If Supplied By Facility): CTDIvol = ( 10.64 ) mGy, DLP = ( 3558.34 ) mGycm TECHNIQUE: Axial CT angiography multi-detector data acquisition was obtained from the lung bases to bilateral feet following intravenous administration of 100 mL of Isovue - 370. Axial images and MIP images were reconstructed from the axial data set. Post-processing of the angiographic images was performed, with multiplanar reformation and 3D reconstruction. Individualized dose optimization techniques were used for this CT. TECHNICAL QUALITY: Good COMPARISON: CTA of the abdomen dated October 05, 2018. Descriptors of Narrowing: None (0%) Mild (< 50%) Moderate (50-70%) Severe (70-90%) Subtotal/Total Occlusion (90-100%) Non-Evaluable (technically non-diagnostic FINDINGS: Abdominal aorta: Patient has an endovascular stent to traversing the elim ira infrarenal abdominal aortic aneurysm. The elim ira aneurysm measures approximately 4.1 cm in greatest transverse dimension. This is similar to previous CT. The endovascular graft appears to be patent. Celiac and superior mesenteric arteries: No demonstrated narrowing. Inferior mesenteric artery: Not visualized. Right renal artery(arteries): No demonstrated narrowing. Left renal artery(arteries): No demonstrated narrowing. Right common iliac artery: Endovascular stent is visible in right common iliac artery. Endovascular stent is patent. There is some residual dilatation of the right common iliac artery which measures approximately 1.9 cm. Right external iliac artery: No demonstrated narrowing. Right internal iliac artery: No demonstrated narrowing. Left common iliac artery: There is endovascular stent within the left common iliac artery. Endovascular stent is patent. There is mild dilatation of the left common iliac artery which measures up to 2.1 cm. Left external iliac artery: No demonstrated narrowing. Left internal iliac artery: No demonstrated narrowing. RIGHT LOWER EXTREMITY Right common femoral artery: No demonstrated narrowing. Right profundus femoris: No demonstrated narrowing. Right superficial femoral: There is mild diffuse narrowing. Right popliteal artery: No demonstrated narrowing. Right tibioperoneal trunk: No demonstrated narrowing. Right anterior tibial artery: No demonstrated narrowing. Right posterior tibial artery: No demonstrated narrowing. Right peroneal artery: No demonstrated narrowing. LEFT LOWER EXTREMITY Left common femoral artery: No demonstrated narrowing. Left profundus femoris: No demonstrated narrowing. Left superficial femoral: No demonstrated narrowing. Left popliteal artery: No demonstrated narrowing. Left tibioperoneal trunk: No demonstrated narrowing. Left anterior tibial artery: No demonstrated narrowing. Left posterior tibial artery: No demonstrated narrowing. Left peroneal artery: No demonstrated narrowing. ABDOMINAL AND PELVIC FINDINGS: There is patchy left lower lobe airspace consolidation and/or atelectasis. The visualized portions of the heart are within normal limits. Normal liver. There is non-visualization of the gallbladder, which may be secondary to either contraction or a prior cholecystectomy. Normal spleen. Normal pancreas. Normal bilateral adrenal glands. There is mild cortical atrophy of the right kidney, consistent with chronic medical renal disease. There is a small right-sided cyst arising from the upper pole of the right kidney measuring approximately 1.5 cm. There are multiple left-sided renal cysts with the largest measuring 5.9 cm. Both kidneys excrete contrast. Normal visualized stomach. There is no evidence for dilated bowel, ascites or pneumoperitoneum. The small bowel has a grossly normal appearance. Stool is visible throughout most of the colon with scattered diverticula. The appendix is visualized and appears normal. Normal abdominal aorta. There is venous distention of the inferior vena cava (IVC). Normal retroperitoneum. Normal urinary bladder. There is enlargement of the prostate gland. Normal abdominal wall. There are diffuse degenerative changes of the visualized spine. The visualized femurs are within normal limits. The tibias and fibulas have a normal appearance. The skeletal muscles of the pelvis, thighs and calves are within normal limits. CT/CTA Abd w/Runoff W/WO Contrast IMPRESSION: 1. Status post endovascular treatment of abdominal aortic aneurysm without CT evidence for complication. 2. Multiple renal cysts. 3. Sequela of right-sided renal insufficiency. 4. Prostatic enlargement. 5. Left basilar airspace consolidation and atelectasis. Electronically Signed: Kate Barreto MD at 8:03 EDT , Service support ,
[2019-10-04 14:16] LABS: CREATININE FINGERSTICK 1.2 mg/dL (0.70-1.30)
== END ==
PROVIDERS: PCP Family Medicine; Referring Provider Surgery; Visit Provider Surgery
DX: I71.4 Abdominal aortic aneurysm, without rupture (principal)
CPT/HCPCS: 75635; Q9967

== ENCOUNTER → 2020-10-06 17:38 | Outpatient (CLI) | payer MEDICARE, SELFPAY ==
[2020-02-16 14:15] VITALS: BMI 35.2
--- NOTE | 2020-10-06 17:38 | CT_ITS ---
STUDY: CTA OF THE ABDOMINAL AORTA AND BILATERAL LOWER EXTREMITIES REASON FOR EXAM: Male, 75 years old. Abdominal aortic aneurysm. RADIATION DOSAGE (If Supplied By Facility): CTDIvol = ( 25.26 ) mGy, DLP = ( 900.04 ) mGycm TECHNIQUE: Axial CT angiography multi-detector data acquisition was obtained from the diaphragm to the midpelvis following intravenous administration of IV 100mL Isovue-370. Axial images and MIP images were reconstructed from the axial data set. Post-processing of the angiographic images was performed, with multiplanar reformation and 3D reconstruction. Individualized dose optimization techniques were used for this CT. TECHNICAL QUALITY: Good COMPARISON: CTA of the abdomen and lower extremities, 10/04/2019. Descriptors of Narrowing: None (0%) Mild (< 50%) Moderate (50-70%) Severe (70-90%) Subtotal/Total Occlusion (90-100%) Non-Evaluable (technically non-diagnostic FINDINGS: Abdominal aorta: There is minimal atherosclerotic changes of the proximal abdominal aorta. Beginning just below the renal arteries, there is a patent aortobiiliac stent. This lies within a thrombosed fusiform infrarenal abdominal aortic aneurysm measuring 4.1 x 4.5 cm in maximum diameter. There is no evidence of leakage of contrast outside the confines of the stent. Celiac and superior mesenteric arteries: No demonstrated narrowing. Inferior mesenteric artery: The origin of the inferior mesenteric artery is absent. The peripheral vessels are supplied via collaterals. Right renal artery(arteries): No demonstrated narrowing. Left renal artery(arteries): Atherosclerotic changes with mild stenosis. Right common iliac artery: Stented Right external iliac artery: Minimal atherosclerotic changes. Right internal iliac artery: Atherosclerotic changes with mild stenosis. Left common iliac artery: Stented Left external iliac artery: No demonstrated narrowing. Left internal iliac artery: Atherosclerotic changes without stenosis. Lung bases are clear. There is an area of consolidation or mass along the posterior pleural surface of the left lower lobe. Heart is normal in size. Normal liver. The gallbladder is nonvisualized. No biliary ductal dilatation. Normal spleen. Normal pancreas. Normal adrenal glands. There are multiple small cysts again seen in the right kidney. Larger cysts are again noted in the left kidney. Normal visualized ureters. Normal stomach. Normal visualized small bowel. Normal visualized colon. Umbilical hernia of omental fat. The abdominal wall appears otherwise unremarkable. There is stable degenerative changes of the lumbar spine. CT/CTA Abdomen W/WO Contrast IMPRESSION: 1. Infrarenal abdominal aortic aneurysm with patent aorto biiliac stent. The findings appear unchanged from the previous examination. 2. No major interval change in findings when compared to 10/04/2019. Electronically Signed: Byron Hernandez DO at 19:41 EDT Tel [phone], Service support ,
[2020-10-06 17:50] LABS: CREATININE FINGERSTICK 1.2 mg/dL (0.70-1.30); EGFR FINGERSTICK > 60.0000 mL/min (>60)
== END ==
PROVIDERS: PCP Family Medicine; Referring Provider Surgery; Visit Provider Surgery
DX: I71.4 Abdominal aortic aneurysm, without rupture (principal)
CPT/HCPCS: 74175; Q9967

== ENCOUNTER 2020-11-12 16:31 | Emergency (ER) | payer MEDICARE, SELFPAY ==
[2020-10-12 13:25] VITALS: BMI 35.2
[2020-11-12 16:32] VITALS: BP 105/66; PULSE 95; RESP 16; TEMP 36.8; O2SAT 94; BMI 33.6
--- NOTE | 2020-11-12 17:19 | EDS_ITS ---
HPI History of Present Illness Chief Complaint: Rash Informant: patient Narrative Narrative: Patient is a 75-year-old male who presents to the emergency department for rash of his back and left leg. Initially started on . It has been very painful. He has never had this before in the past. He did have pain in the leg prior to the rash developing. He has no history of shingles previously. Denies any fevers or chills. No abdominal pain. No chest pain or shortness of breath. No recent illness. Patient has been taking his home oxycodone for this which has been helping the pain. [facility] Medical History (Updated 11/12/20 @ 17:[address] 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 Carpal tunnel syndrome Cataract GERD (gastroesophageal reflux disease) Hyperlipidemia Hypertension INFLAMED ACTINIC KERATOSIS INFLAMED ACTINIC KERATOSIS RIGHT VOLAR FOREARM Neoplasm of skin of ear Neoplasm of skin of forearm Neoplasm of skin of hand Neoplasm of skin of left cheek Neoplasm of skin of upper arm Nodule of right lung Other seborrheic keratosis Personal history of skin cancer Prostate enlargement Pulmonary emphysema SCATTERED ACTINIC DAMAGE ON FACE AND UPPER EXTREMITIES Seborrheic keratosis Situational depression Solar keratosis 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 Squamous cell carcinoma Squamous cell carcinoma in situ Squamous cell carcinoma in situ Squamous cell carcinoma in situ Squamous cell carcinoma of dorsum of right hand Squamous cell carcinoma of skin of left cheek Venous insufficiency of both lower extremities Home Medications finasteride 5 mg PO DAILY 11/18/13 [History Last Taken 05/22/18 5 mg] omeprazole 20 mg PO DAILY 11/18/13 [History Last Taken 07/30/19] tamsulosin 0.4 mg PO DAILY 11/18/13 [History Last Taken 05/22/18] fluoxetine 20 mg PO DAILY 12/27/16 [History Last Taken 05/22/18 20 mg] brimonidine 0.2 % eye drops 1 drp OPHTHALMIC BID ml 08/05/17 [History Last Taken 05/22/18 1 drp] timolol maleate 0.5 % eye drops 1 drp OPHTHALMIC BID 08/05/17 [History Last Taken 05/22/18 1 drp] carvedilol 3.125 mg PO BID #60 tab 09/10/17 [Rx Last Taken 05/22/18] amlodipine 10 mg PO QHS 04/21/18 [History Last Taken 07/30/19] Lactobac acidoph-fructooligos 1 ea PO BID #20 tab 07/30/19 [Rx Last Taken Unknown] imiquimod 5 % topical cream packet 1 applic TOPICAL 5XW #30 ea 10/14/20 [Rx Last Taken Unknown] hydrocodone-acetaminophen 1 tab PO Q6H PRN 4 Days #12 tab 11/12/20 [Rx Last Taken Unknown] valacyclovir 1,000 mg PO TID 7 Days #21 tab 11/12/20 [Rx Last Taken Unknown] Allergy/AdvReac Type Severity Reaction Status Date / Time adhesive AdvReac Itching Verified 10/12/20 13:25 atorvastatin [From Lipitor] AdvReac Other Verified 10/12/20 13:25 rosuvastatin calcium AdvReac ACHING Verified 10/12/20 13:25 [From Crestor] Family History Sister Diabetes Surgical History EXCISION ATYPICAL SQUAMOUS LESION EXCISION LESIONS AND SKIN CANCERS EXCISION OF SKIN CANCER FACE AND HANDS H/O knee surgery History of basal cell carcinoma excision History of carpal tunnel surgery History of cholecystectomy History of squamous cell carcinoma excision History of squamous cell carcinoma excision Hx of cataract surgery INTRADERMAL EXCISION LESIONS S/P AAA repair Social History housing: house Smoking Status: Never smoker second hand exposure: No quit status: has quit before alcohol intake: current details: [employer]IN[employer] SOCIAL substance use type: does not use what type of physical activity do you participate in: other seatbelt use: always do you feel safe at home: Yes additional social history: SUN EXPOSURE: FREQUENTLY ROS ROS ED Constitutional Constitutional ED: Denies chills or fever(s) Eyes Eyes: Denies change in vision ENT ENT ED: Denies epistaxis or rhinorrhea Cardiovascular Cardiovascular: Denies chest pain or palpitations Respiratory/Chest Respiratory/Chest: Denies cough, dyspnea or dyspnea on exertion Gastrointestinal Gastrointestinal: Denies abdominal pain, diarrhea, nausea or vomiting Genitourinary Genitourinary ED: Denies dysuria, hematuria or urinary frequency Musculoskeletal Musculoskeletal: Denies back pain or neck pain Integumentary Reports rash Neurologic Neurologic: Denies dizziness, headache(s) or weakness EXAM Physical Exam Const Vital Signs: 11/12/20 16:32 Temperature 98.3 F Temperature Source Temporal Pulse Rate 95 Respiratory Rate 16 Blood Pressure 105/66 Blood Pressure Mean 79 Pulse Ox 94 Oxygen Delivery Method Room Air Positive well nourished and well developed General Appearance ED: well developed and NAD HEENT Reports normocephalic, head/scalp atraumatic and moist mucous membranes Eyes PERRL and EOMs intact bilaterally Neck supple Chest Wall inspection of chest normal Resp normal respiratory effort and clear to auscultation bilaterally Auscultation: Negative for rales, rhonchi or wheezes Cardio regular rate, regular rhythm and no murmurs GI normal to inspection, nondistended, normoactive bowel sounds and non-tender Palpation: soft; Negative for guarding or rebound tenderness present Extremity General Extremety ED: Negative for edema General Extremity: Negative for edema Neuro CN's II-XII intact bilaterally and no sensory deficits noted Sensorium / Orientation: alert Motor Exam: strength 5/5 throughout Psych mental status grossly normal Skin Skin Narrative: Erythematous/vesicular rash extending from the mid low back down around the left leg extending to the thigh not past the knee. There are some blisters present. MDM MDM MDM Narrative Medical decision making narrative: Patient presents the ED for a rash over the back and left leg. This does not extend past midline. This is consistent with shingles. His genitalia is not involved. His pain is relatively well controlled right now. He currently rates as a 5 out of 10. We will write a prescription for [place] as he states he is running out of his oxycodone at home. He is given a prescription for valacyclovir. He is to follow-up with his PCP. Return precautions are reviewed with him. He otherwise is stable throughout ED stay with normal vital signs. He is discharged home in stable condition. He understands and is agreeable this plan. All questions are answered. Discharge Plan Triage Chief Complaint: Rash ED Provider: Gabriel Higuera Dx/Rx/DC Orders Clinical Impression: Herpes zoster Instructions: ED Shingles (Herpes Zoster) Prescriptions: New valacyclovir 1 gram tablet 1,000 mg PO TID 7 Days Qty: 21 RF: 0 hydrocodone-acetaminophen 5-325 mg tablet 1 tab PO Q6H PRN (Reason: pain) 4 Days Qty: 12 RF: 0 No Action brimonidine 0.2 % drops 1 drp OPHTHALMIC BID RF: 0 timolol maleate [Timoptic] 0.5 % drops 1 drp OPHTHALMIC BID RF: 0 imiquimod 5 % cream in packet 1 applic TOPICAL 5XW Qty: 30 RF: 0 tamsulosin 0.4 MG capsule 0.4 mg PO DAILY RF: 0 omeprazole 20 MG capsule 20 mg PO DAILY RF: 0 finasteride 5 MG tablet 5 mg PO DAILY RF: 0 fluoxetine 20 MG capsule 20 mg PO DAILY RF: 0 carvedilol 3.125 MG tablet 3.125 mg PO BID Qty: 60 RF: 0 amlodipine 10 MG tablet 10 mg PO QHS RF: 0 Lactobac acidoph-fructooligos 1 EACH tablet 1 ea PO BID Qty: 20 RF: 0 Primary Care Provider: Igor Ge Referrals: Igor Ge MD [Primary Care Provider] - 2 Days Disposition Disposition: Home, self care
== END 2020-11-12 17:34 | disposition home or self-care (01) ==
LOC: ED 17:29
PROVIDERS: Emergency Provider Emergency Medicine; PCP Family Medicine
DX: B02.9 Zoster without complications (principal)
CPT/HCPCS: 99282

== ENCOUNTER 2021-07-15 15:53 | Emergency (ER) | payer MEDICARE, SELFPAY ==
[2021-07-15 15:54] VITALS: BP 123/74; PULSE 85; RESP 16; TEMP 36.5; O2SAT 95; BMI 34.2
--- NOTE | 2021-07-15 16:09 | EKG12_ITS ---
Test Reason : FALL Blood Pressure : / mmHG Vent. Rate : 073 BPM Atrial Rate : 073 BPM P-R Int : 170 ms QRS Dur : 090 ms QT Int : 418 ms P-R-T Axes : 074 078 031 degrees QTc Int : 460 ms Sinus rhythm with Premature supraventricular complexes Low voltage QRS (Limb Leads) Confirmed by ANOOP GIFFORD, MARCELLO ([id number]), editor managing director YOSEF SILVER ([id number]) on 07/17/2021 12:53:17 PM Referred By: SUNNY Confirmed By:MARCELLO DAVALOS MD
--- NOTE | 2021-07-15 16:35 | CT_ITS ---
HISTORY: Trauma, head injury on Anticoagulation TECHNIQUE: Multiple axial images were obtained of the brain without intravenous contrast. A radiation dose optimization technique was used for this scan. IV Contrast dosage and agent: None. COMPARISON: 06/15/19 FINDINGS: # of images incl. paperwork: [id number] PARANASAL SINUSES AND MASTOID AIR CELLS: Scattered mild mucoperiosteal thickening. INTRACRANIAL HEMORRHAGE: None. BRAIN PARENCHYMA: No CT evidence of stroke. No intracranial masses. There is preservation of the bello/white matter interface. Posterior fossa structures are unremarkable. There is hypoattenuation of the periventricular white matter. Chronic involutional changes are noted. CSF SPACES: Appropriate for age. There is no hydrocephalus. MASS EFFECT: None. CALVARIUM: No acute fracture. CT/Brain/Head without Contrast IMPRESSION: Chronic involutional and white matter changes. No acute intracranial process. Individualized dose optimization techniques were used for this CT. at 1808 Reported and signed by: Rell Wood MD Electronically Signed: Rell Wood MD at 18:07 EST ,
--- NOTE | 2021-07-15 16:35 | CT_ITS ---
HISTORY: Trauma, pain status post fall EXAMINATION: CT Spine Cervical W/O Contrast Injection TECHNIQUE: Helically acquired images were obtained of the cervical spine. 2D reformatted images were reviewed. A radiation dose optimization technique was used for this scan. IV Contrast dosage and agent: None. COMPARISON: 06/15/19 FINDINGS: VERTEBRAE: No fracture or traumatic subluxation. No discrete lytic or blastic abnormality observed. Normal alignment. Normal craniocervical junction and cervicothoracic junction. DISCS and SPINAL CANAL: Degenerative discogenic changes are noted. No critical stenosis. NECK SOFT TISSUES: Extensive subcutaneous emphysema extending into the upper mediastinum. LUNG APICES: Bullous changes. CT/Spine Cervical without Contras IMPRESSION: Degenerative changes. No evidence of acute cervical spinal fracture. Extensive subcutaneous soft tissue of the neck extending from the superior mediastinum. Individualized dose optimization techniques were used for this CT. at 1815 Reported and signed by: Rell Wood MD Electronically Signed: Rell Wood MD at 18:14 EST ,
--- NOTE | 2021-07-15 16:36 | EDS_ITS ---
HPI HPI - Fall History of Present Illness Chief Complaint: Fall Narrative Narrative: Patient presents with his [id number] status post fall late last evening at 11 PM, over 17 hours ago. He states that he was in the kitchen and got tripped up on a rug, and fell onto linoleum. He did hit his head. He is unsure if he had a loss of consciousness and if he did for how long. He complains mainly of right rib pain that is worse with movement and breathing. Radu trinh has had previous rib fractures and states this feels very similar. He also has problems with nasal congestion now that he has fallen. 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 He denies any headache. No other injuries. He took Vicodin prior to arrival. He presents for evaluation mainly because of the rib injury and the head injury, and the fact that he is on a blood thinner. 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 Carpal tunnel syndrome Cataract GERD (gastroesophageal reflux disease) Hyperlipidemia Hypertension INFLAMED ACTINIC KERATOSIS INFLAMED ACTINIC KERATOSIS RIGHT VOLAR FOREARM Neoplasm of skin of ear Neoplasm of skin of forearm Neoplasm of skin of hand Neoplasm of skin of left cheek Neoplasm of skin of upper arm Nodule of right lung Other seborrheic keratosis Personal history of skin cancer Prostate enlargement Pulmonary emphysema SCATTERED ACTINIC DAMAGE ON FACE AND UPPER EXTREMITIES Seborrheic keratosis Situational depression Solar keratosis 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 Squamous cell carcinoma Squamous cell carcinoma in situ Squamous cell carcinoma in situ Squamous cell carcinoma in situ Squamous cell carcinoma of dorsum of right hand Squamous cell carcinoma of skin of left cheek Venous insufficiency of both lower extremities Home Medications finasteride 5 mg PO DAILY 11/18/13 [History Last Taken 05/22/18 5 mg] omeprazole 20 mg PO DAILY 11/18/13 [History Last Taken 07/30/19] tamsulosin 0.4 mg PO DAILY 11/18/13 [History Last Taken 05/22/18] fluoxetine 20 mg PO DAILY 12/27/16 [History Last Taken 05/22/18 20 mg] brimonidine 0.2 % eye drops 1 drp OPHTHALMIC BID ml 08/05/17 [History Last Taken 05/22/18 1 drp] timolol maleate 0.5 % eye drops 1 drp OPHTHALMIC BID 08/05/17 [History Last Taken 05/22/18 1 drp] carvedilol 3.125 mg PO BID #60 tab 09/10/17 [Rx Last Taken 05/22/18] amlodipine 10 mg PO QHS 04/21/18 [History Last Taken 07/30/19] apixaban [Eliquis] 5 mg PO BID 07/15/21 [History Last Taken Unknown] Allergy/AdvReac Type Severity Reaction Status Date / Time adhesive AdvReac Itching Verified 07/15/21 15:54 atorvastatin [From Lipitor] AdvReac Other Verified 07/15/21 15:54 rosuvastatin calcium AdvReac ACHING Verified 07/15/21 15:54 [From Crestor] Family History Sister Diabetes Surgical History EXCISION ATYPICAL SQUAMOUS LESION EXCISION LESIONS AND SKIN CANCERS EXCISION OF SKIN CANCER FACE AND HANDS H/O knee surgery History of basal cell carcinoma excision History of carpal tunnel surgery History of cholecystectomy History of squamous cell carcinoma excision History of squamous cell carcinoma excision Hx of cataract surgery INTRADERMAL EXCISION LESIONS S/P AAA repair Social History housing: house Smoking Status: Never smoker second hand exposure: No quit status: has quit before alcohol intake: current details: [employer] SOCIAL substance use type: does not use what type of physical activity do you participate in: other seatbelt use: always do you feel safe at home: Yes additional social history: SUN EXPOSURE: FREQUENTLY ROS ROS ED ROS Narrative Constitutional: No fever, no chills. HEENT: No sore throat. No neck pain. No loss of vision. No rhinorrhea. Nasal congestion after fall. Abrasion to forehead/frontal scalp Cardiovascular: No chest pain. No palpitations. No pedal edema. Respiratory: No cough, no shortness of breath. Abdominal: No abdominal pain. No nausea. No vomiting. Genitourinary: No dysuria. No hematuria. Musculoskeletal: No myalgias. No arthralgias. Right-sided rib pain, anterior laterally which radiates towards the back. Neurologic: No headaches. No dizziness. No lightheadedness. Skin: No rash. No change in color. Psychiatric: No depression. No anxiety. EXAM Physical Exam Narrative Exam Narrative: Afebrile. Vital signs noted. GCS 15. ABCs are intact. HEENT: Normocephalic. Small circular abrasion to frontal scalp, no active bleeding. PERRL, EOMI. Neck soft and supple. No point tenderness or step off. No septal hematoma. TMs clear bilaterally. No hemotympanum. Cardiovascular: Regular rate and rhythm. No murmurs, rubs, or gallops appreciated. Respiratory: No tachypnea. Mild tenderness to palpation right anterior to lateral ribs. Positive crepitance. Gastrointestinal: Abdomen soft, nontender, with normoactive bowel sounds. No rebound or guarding. Neurological: Awake. Alert. Oriented x3. Nonfocal, nonlateralizing. Able to raise arms above head without difficulty. Skin: No rash. Normal color. No pallor. Musculoskeletal: No pedal edema. Full range of motion extremities. Const Vital Signs: 07/15/21 15:54 07/15/21 16:33 07/15/21 18:30 Temperature 97.7 F L Temperature Source Temporal Pulse Rate 85 74 Respiratory Rate 16 14 Respiratory Effort Normal Non-Labored Respiratory Depth Normal Respiratory Pattern Normal Blood Pressure 123/74 H 171/86 H Blood Pressure Mean 90 114 Pulse Ox 95 97 Oxygen Delivery Method Room Air Room Air Room Air MDM MDM MDM Narrative Medical decision making narrative: As the patient is on Eliquis, CT of the brain and the C-spine were obtained, along with right rib x-rays. CT of the brain shows chronic involutional white matter changes but no acute intracranial hemorrhage/process. There are degenerative changes of the cervical spine. There was noted extensive subcutaneous soft tissue of the neck extending from the superior mediastinum. I received a call from the [facility] given his subcutaneous air his rib x-rays were canceled and we obtained CT of the chest, abdomen, and pelvis. There is a fracture of the right seventh rib with right- sided pneumothorax and mild shift of the midline structures to the left of midline with possible tension formation. There is probable pulmonary contusion and/or hemorrhage in the right lower lobe posterior laterally. There is extensive pneumomediastinum and communicating with subcutaneous emphysema in the neck and the right chest wall. Given his pneumothorax with possible tension developing, emergent Heimlich valve was inserted. I discussed the patient with Dr. Pedro at [facility] for ED to ED transfer for trauma evaluation. Laboratory work is currently pending. Disposition is transfer in stable condition. Radiography Diagnostic Testing: Clinical Impression(s) from Imaging Studies Brain CT 07/15/21 16:35 IMPRESSION: Chronic involutional and white matter changes. No acute intracranial process. Individualized dose optimization techniques were used for this CT. at 1808 Reported and signed by: Rell Wood MD Electronically Signed: Rell Wood MD at 18:07 EST , Cervical Spine CT 07/15/21 16:35 IMPRESSION: Degenerative changes. No evidence of acute cervical spinal fracture. Extensive subcutaneous soft tissue of the neck extending from the superior mediastinum. Individualized dose optimization techniques were used for this CT. at 1815 Reported and signed by: Rell Wood MD Electronically Signed: Rell Wood MD at 18:14 EST , Chest/Abdomen/Pelvis CT 07/15/21 16:58 IMPRESSION: Fracture right seventh rib with right-sided pneumothorax and mild shift of midline structures to the left of midline, possible tension formation. Probable pulmonary contusion and/or hemorrhage right lower lobe posterolaterally. Bilateral pleural effusions and atelectasis with probable left basilar rounded atelectasis. Extensive pneumomediastinum and communicating with subcutaneous emphysema in the neck and about the right chest wall. Incomplete imaging of the distal pelvis. If there are symptoms referable to the pelvis, dedicated pelvic CT is recommended. No acute findings in the abdomen or pelvis. Individualized dose optimization techniques were used for this CT. at 1752 Reported and signed by: Rell Wood MD Electronically Signed: Rell Wood MD at 17:51 EST , ADDENDUM: 07/15/21 1806 IMPRESSION: Fracture right seventh rib with right-sided pneumothorax and mild shift of midline structures to the left of midline, possible tension formation. Probable pulmonary contusion and/or hemorrhage right lower lobe posterolaterally. Bilateral pleural effusions and atelectasis with probable left basilar rounded atelectasis. Extensive pneumomediastinum and communicating with subcutaneous emphysema in the neck and about the right chest wall. Incomplete imaging of the distal pelvis. If there are symptoms referable to the pelvis, dedicated pelvic CT is recommended. No acute findings in the abdomen or pelvis. Individualized dose optimization techniques were used for this CT. at 1752 Reported and signed by: Rell Wood MD N.B. : The above Results were Read Back by Rell Wood MD to Drew Mcintosh MD, and understanding confirmed on 07/15/2021 17:59:43 (ET). Electronically Signed: Rell Wood MD at 17:51 EST , ADDENDUM: 07/15/21 1837 IMPRESSION: Fracture right seventh rib with right-sided pneumothorax and mild shift of midline structures to the left of midline, possible tension formation. Probable pulmonary contusion and/or hemorrhage right lower lobe posterolaterally. Bilateral pleural effusions and atelectasis with probable left basilar rounded atelectasis. Extensive pneumomediastinum and communicating with subcutaneous emphysema in the neck and about the right chest wall. Incomplete imaging of the distal pelvis. If there are symptoms referable to the pelvis, dedicated pelvic CT is recommended. No acute findings in the abdomen or pelvis. Individualized dose optimization techniques were used for this CT. at 1752 Reported and signed by: Rell Wood MD N.B. : The above Results were Read Back by Rell Wood MD to Drew Mcintosh MD, and understanding confirmed on 07/15/2021 17:59:43 (ET). Electronically Signed: Rell Wood MD at 17:51 EST Reading Location ID and State: [facility] / [place] Tel , Service support , Critical Care Time Critical care time (excluding procedures): 30-74 minutes (31), Including time spent:, Discussing w/Patient &/or Family/Computer Forwarding System Markup Clerk, Discussing w/Consultants and Arranging Admission or Transfer Discharge Plan Triage Chief Complaint: Fall Other Complaint: Chest Other Head Injury ED Provider: Drew Mcintosh Dx/Rx/DC Orders Clinical Impression: Fall, Fracture of rib, Pneumothorax on right, Subcutaneous emphysema Prescriptions: No Action brimonidine 0.2 % drops 1 drp OPHTHALMIC BID RF: 0 timolol maleate [Timoptic] 0.5 % drops 1 drp OPHTHALMIC BID RF: 0 tamsulosin 0.4 MG capsule 0.4 mg PO DAILY RF: 0 omeprazole 20 MG capsule 20 mg PO DAILY RF: 0 finasteride 5 MG tablet 5 mg PO DAILY RF: 0 fluoxetine 20 MG capsule 20 mg PO DAILY RF: 0 carvedilol 3.125 MG tablet 3.125 mg PO BID Qty: 60 RF: 0 amlodipine 10 MG tablet 10 mg PO QHS RF: 0 Eliquis 5 mg tablet 5 mg PO BID RF: 0 Primary Care Provider: Igor Ge Referrals: Igor Ge MD [Primary Care Provider] - Disposition Disposition: Acute Care Hospital Discharge Location: [facility]
--- NOTE | 2021-07-15 16:58 | CT_ITS ---
We are attempting to reach an attending provider to discuss findings. An addendum with communication details will be sent when the communication is complete. HISTORY: Trauma, right-sided pain one day after fall TECHNIQUE: Helically acquired images were obtained of the chest, abdomen and pelvis. A radiation dose optimization technique was used for this scan. IV Contrast dosage and agent: None. Oral contrast: None. COMPARISON: CTA abdomen 10/06/20 FINDINGS: ----Chest: LUNGS, PLEURA AND LARGE AIRWAYS: Anterior, lateral and basilar pneumothorax with mild shift of midline structures to the left. Trace left anterior pneumothorax. Focal parenchymal densities right lower lobe posterolaterally suspicious for pulmonary contusion or hemorrhage. Small bibasilar pleural effusions with adjacent atelectasis, probable rounded atelectasis left lower lobe posteriorly THYROID: No thyroid lesions. HEART AND PERICARDIUM: Heart size is normal. No pericardial effusion. VESSELS: 3.4 cm ectasia of ascending aorta. MEDIASTINUM AND SREE: No mediastinal or hilar adenopathy. Extensive pneumomediastinum extending into the soft tissues of the neck and communicating with extensive right-sided chest wall subcutaneous emphysema. Esophagus is unremarkable. No hiatal hernia. BONES: Mildly displaced fracture right seventh rib laterally. ----Abdomen/Pelvis: LIVER: Homogeneous. No laceration or hematoma. GALLBLADDER AND BILIARY TREE: Gallbladder absent. No intra- or extrahepatic biliary ductal dilation. PANCREAS: No focal cystic or solid mass. SPLEEN: Normal size without laceration or hematoma. ADRENAL GLANDS: No nodules. KIDNEYS AND URETERS: Stable bilateral cortical cystic lesions. No hydronephrosis or nephrolithiasis. PERITONEUM: No ascites or free air. No other fluid collection. BOWEL: Normal appendix. No stomach or bowel distension. No focal inflammatory change. LYMPH NODES: No enlarged mesenteric or retroperitoneal lymph nodes. VESSELS: Stable aortobiiliac stent graft. URINARY BLADDER: Unremarkable. REPRODUCTIVE ORGANS: No pelvic masses. ABDOMINAL WALL: No discrete abdominal or pelvic wall hernia. BONES: Distal pelvis incompletely imaged. Otherwise no acute bony abnormality demonstrated. CT/CT Chest, Abd, Pelvis WO Cont IMPRESSION: Fracture right seventh rib with right-sided pneumothorax and mild shift of midline structures to the left of midline, possible tension formation. Probable pulmonary contusion and/or hemorrhage right lower lobe posterolaterally. Bilateral pleural effusions and atelectasis with probable left basilar rounded atelectasis. Extensive pneumomediastinum and communicating with subcutaneous emphysema in the neck and about the right chest wall. Incomplete imaging of the distal pelvis. If there are symptoms referable to the pelvis, dedicated pelvic CT is recommended. No acute findings in the abdomen or pelvis. Individualized dose optimization techniques were used for this CT. at 1752 Reported and signed by: Rell Wood MD Electronically Signed: Rell Wood MD at 17:51 EST ,
[2021-07-15 18:30] VITALS: BP 171/86; PULSE 74; RESP 14; O2SAT 97
--- NOTE | 2021-07-15 18:39 | ED.RN ---
Dr Luo & Dr Mcintosh at bedside to place chest tube.
--- NOTE | 2021-07-15 18:42 | ED.RN ---
1845: HR 80, 98% on room air, BP 176/89; Dr Mcintosh injecting Lidocaine in preparation for heimlich valve chest tube insertion. 184: BP 179/109, HR 83, RR 18, 97% on room air; Pt tolerated well, tube being sutured in place. 184: 96% on room air, HR 79, RR 19, 180/88.
--- NOTE | 2021-07-15 19:02 | RAD_ITS ---
HISTORY: chest tube placement EXAMINATION/TECHNIQUE: XR Chest 1 View: Portable upright AP chest x-ray COMPARISON: 09/02/17, chest CT 07/15/21 FINDINGS: LINES/DEVICES: Placement of right-sided chest tube with tip inferior to the right hilum. LUNGS: Residual peripheral and apical right pneumothorax. Patient rotated with evidence of persistent mild shift of midline structures to the left. MEDIASTINUM AND CARDIOVASCULAR STRUCTURES: Cardiac silhouette not enlarged. BONES AND SOFT TISSUES: No acute bony abnormalities. Extensive subcutaneous emphysema along the right side of the neck, chest and upper abdomen. RAD/Chest 1 View (Portable) IMPRESSION: Residual peripheral right pneumothorax status post right sided chest tube placement. Rotated study with evidence of persistent mild shift of midline structures. Follow-up recommended. at 1935 Reported and signed by: Rell Wood MD Electronically Signed: Rell Wood MD at 19:34 EST ,
[2021-07-15 19:30] LABS: Absolute Lymphocyte Count 1.02 X10^3/uL (0.83-4.51); Absolute Neutrophil Count 5.2 X10^3/uL (2.0-7.7); Basophil# 0.01 X10^3/uL; Basophil% 0.1 % (0-1); Eosinophil# 0.03 X10^3/uL; Eosinophils% 0.4 % (0-5); Hemoglobin 13.8 g/dL (13.0-16.5); Lymphocyte # 1.02 X10^3/ul (0.83-4.51); Mean Corp Hgb Conc 32.9 g/dL (32-36); Mean Corpuscular Hgb 31.7 pg (27.0-32.0); Mean Corpuscular Volume 96.3 fL (80-94); Mean Platelet Vol. 10.1 fl (6.2-12.0); Monocyte# 0.53 X10^3/uL; Monocyte% 7.8 % (0-10); NRBC Flagged by Analyzer 0 % (0-5); Neutrophil # 5.18 X10^3/uL (2.7-7.7); Neutrophil % 76.4 % (47-70); Platelet Count 202 K/mm3 (150-450); RBC Distribution Width CV 13.8 % (11.6-14.6); RBC Distribution Width SD 48.8 fl (35.1-43.9); Red Blood Count 4.36 M/mm3 (4.6-6.2); White Blood Count 6.8 K/mm3 (4.4-11.0)
[2021-07-15 19:34] VITALS: BP 137/80; PULSE 78; RESP 18; O2SAT 97
[2021-07-15 19:45] LABS: ALB/GLOB Ratio 0.8 RATIO (0.9-2.4); AST(SGOT) 26 U/L (15-37); Alanine Aminotransfer ALT/SGPT 24 U/L (16-61); Albumin, Serum 3.2 g/dL (3.2-5.0); Alkaline Phosphatase 109 U/L (45-117); Anion Gap 5 (5-15); BUN 14 mg/dL (7-18); BUN/Creat Ratio 12.3 RATIO (10-20); Calcium,Total 8.6 mg/dL (8.5-10.1); Chloride 103 mmol/L (98-107); Creatinine, Serum 1.14 mg/dL (0.70-1.30); EST Glomerular Filtration Rate 66 mL/min (>60); Est Glom Filt Rate - Afr Amer 80 mL/min (>60); Globulin 4.1 g/dL (2.2-4.2); Glucose 107 mg/dL (74-106); Potassium 3.9 mmol/L (3.5-5.1); Protein, Total 7.3 g/dL (6.4-8.2); Sodium Level 137 mmol/L (136-145)
[2021-07-15 19:54] LABS: Alcohol, Blood (Medical)-Serum < 3.0 mg/dL
== END 2021-07-15 19:44 | disposition short-term general hospital (02) ==
PROVIDERS: Emergency Provider Emergency Medicine; PCP Family Medicine; Visit Provider Emergency Medicine
DX: S27.0XXA Traumatic pneumothorax, initial encounter (principal); T79.7XXA Traumatic subcutaneous emphysema, initial encounter; S22.31XA Fracture of one rib, right side, initial encounter for closed fracture; Z86.718 Personal history of other venous thrombosis and embolism; N40.0 Benign prostatic hyperplasia without lower urinary tract symptoms; K21.9 Gastro-esophageal reflux disease without esophagitis; Z79.01 Long term (current) use of anticoagulants; W19.XXXA Unspecified fall, initial encounter; Z79.899 Other long term (current) drug therapy
CPT/HCPCS: 32551; 70450; 71045; 71250; 72125; 74176; 80053; 82077; 85025; 93005; 99285

== ENCOUNTER → 2021-10-10 | Outpatient (CLI) | payer MEDICARE, SELFPAY ==
--- NOTE | 2021-10-10 08:47 | AAVD_ITS ---
Reason For Study: AAA Aorta Measurements Aorta Doppler Measurements Proximal aorta measures1.75 x 1.75cm. in cross- Peak systolic flow velocities within the proximal sectional axis. aorta measure 65.5 cm/sec. Proximal aorta measures1.83cm. in longitudinal Peak systolic flow velocities within the mid aorta axis. measure 61.1 cm/sec. Mid Aorta, stent, 2.48 x 2.68 x 2.44 cm Distal Aorta, Limb 1, 94.2 cm/sec. Mid Aorta, residual sac, 3.55 x 3.55 x 3.60 cm Distal Aorta, Limb 2, 103.4 cm/sec. Distal Aorta, Limb 1, 1.07 x 1.09 x 1.04 cm. Distal Aorta, Limb 2, 1.13 x 1.15 x 1.17 cm. Distal Aorta, residual sac, 4.05 x 4.44 x 4.06 cm. Left Iliac Artery Left iliac artery measures 1.76 x 1.83 cm. in the cross-sectional axis. Left iliac artery measures 1.85 cm. in the longitudinal axis. Peak systolic velocity in the left iliac artery measures 53.6 cm/sec. Right Iliac Artery Right iliac artery measures 1.92 x 1.94 cm. in the cross-sectional axis. Right iliac artery measures 1.89 cm. in the longitudinal axis. Peak systolic velocity in the right iliac artery measures 108.8 cm/sec. Procedure Aorta IVC Iliac vasculature or bypass grafts 11362. Exam performed in department. VL/Abd Aortic/IVC Duplex scan Interpretation Summary Abdominal aortic aneurysm dimensions 4.05 x 4.44 cm Right common iliac stent graft limb 1.07 x 1.09 cm and left common iliac stent graft limb 1.13 x 1.15 cm Both aortic stent graft limbs are patent with normal flow Maximal right iliac diameter 1.92 x 1.94 cm Maximal left common iliac diameter 1.76 x 1.83 cm No endoleak is visualized Previous duplex imaging of May 13, 2018 that point demonstrated a 4 x 4.4 cm aortic aneurysm with intact stent graft. No clinically significant change since that time. Ordering Physician: Nam Berg Referring Physician: Rob Ge Performed By: Rohini John RVT
== END | disposition home or self-care (01) ==
LOC: CVS 08:46
PROVIDERS: PCP Family Medicine; Referring Provider Surgery; Visit Provider Surgery
DX: I71.4 Abdominal aortic aneurysm, without rupture (principal)
CPT/HCPCS: 93978

== ENCOUNTER 2022-03-26 00:01 | Emergency (ER) | payer MEDICARE, SELFPAY ==
[2022-03-26 00:02] VITALS: BP 81/55; PULSE 84; RESP 16; TEMP 36.1; O2SAT 98; BMI 31.4
--- NOTE | 2022-03-26 00:47 | RAD_ITS ---
INDICATION: hypotension EXAMINATION/TECHNIQUE: X-RAY - XR Chest 1 View COMPARISON: Chest CT and chest x-ray from 07/15/2021 FINDINGS: LINES/DEVICES: None. LUNGS: No pulmonary edema or focal airspace consolidation. No sizable pleural effusion. No pneumothorax detected. MEDIASTINUM AND CARDIOVASCULAR STRUCTURES: Heart size within normal limits. Benign calcified left suprahilar lymph nodes. BONES AND SOFT TISSUES: Skeletal degenerative changes. RAD/Chest 1 View (Portable) IMPRESSION: No radiographic evidence of acute cardiopulmonary disease. Electronically Signed: Vadim Joy MD at 1:51 EDT ,
--- NOTE | 2022-03-26 00:47 | CT_ITS ---
INDICATION: head trauma EXAMINATION: CT Head or Brain W/O Contrast Injection TECHNIQUE: Multiple axial images were obtained of the head without intravenous contrast. A radiation dose optimization technique was used for this scan. IV Contrast dosage and agent: None. COMPARISON: Head CT from 07/15/2021 FINDINGS: BRAIN PARENCHYMA: No intra- or extra-axial hemorrhage. No evidence of acute major territorial infarct. No intracranial mass or mass effect. Chronic, deep cerebral white matter lucencies again noted. Chronic cerebral involutional changes. CSF SPACES: Prominent cerebral sulci and extraaxial spaces secondary to involutional changes. No hydrocephalus. Basal cisterns are patent. Intracranial atherosclerotic calcifications. CALVARIUM, SKULL BASE, PARANASAL SINUSES AND MASTOID AIR CELLS: Calvarium is intact. Scattered sinus mucosal thickening with partial opacification bilateral ethmoid air cells. Mastoid air cells are well-pneumatized. ORBITS: No acute findings. CT/Brain/Head without Contrast IMPRESSION: Chronic involutional and white matter changes. No evidence of acute intracranial abnormality. Sinusitis. Electronically Signed: Vadim Joy MD at 1:50 EDT ,
--- NOTE | 2022-03-26 00:48 | EKG12_ITS ---
Test Reason : Fall Blood Pressure : / mmHG Vent. Rate : 065 BPM Atrial Rate : 065 BPM P-R Int : 186 ms QRS Dur : 082 ms QT Int : 442 ms P-R-T Axes : 054 052 033 degrees QTc Int : 459 ms Normal sinus rhythm Normal ECG Confirmed by ANOOP GIFFORD, MARCELLO ([id number]), industrial editor YOSEF SILVER ([id number]) on 03/27/2022 11:04:35 AM Referred By: Confirmed By:MARCELLO DAVALOS MD
--- NOTE | 2022-03-26 00:49 | EDS_ITS ---
HPI HPI - Fall History of Present Illness Chief Complaint: Fall Detail of Chief Complaint: Forehead laceration. On Eliquis. 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 States been feeling fine denies any recent illness or recent hospitalization. Tonight he walked into the kitchen lightheaded fell to the floor hit his head. No LOC. Has a forehead laceration. Denies any neck pain. He is on the blood thinner Eliquis. Again he denies any recent illness. Unsure of his last tetanus shot. 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 Carpal tunnel syndrome Cataract GERD (gastroesophageal reflux disease) Hyperlipidemia Hypertension INFLAMED ACTINIC KERATOSIS INFLAMED ACTINIC KERATOSIS RIGHT VOLAR FOREARM Neoplasm of skin of ear Neoplasm of skin of forearm Neoplasm of skin of hand Neoplasm of skin of left cheek Neoplasm of skin of episcopal region Neoplasm of skin of upper arm Nodule of right lung Other seborrheic keratosis Personal history of skin cancer Prostate enlargement Pulmonary emphysema SCATTERED ACTINIC DAMAGE ON FACE AND UPPER EXTREMITIES Seborrheic keratosis Situational depression Solar keratosis 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 Squamous cell carcinoma Squamous cell carcinoma in situ Squamous cell carcinoma in situ Squamous cell carcinoma in situ Squamous cell carcinoma of dorsum of right hand Squamous cell carcinoma of skin of left cheek Venous insufficiency of both lower extremities Home Medications finasteride 5 mg tablet 5 mg PO DAILY Prostate 11/18/13 [History Last Taken 05/22/18 5 mg] omeprazole 20 mg capsule,delayed release 20 mg PO DAILY GERD 11/18/13 [History Last Taken 07/30/19] tamsulosin 0.4 mg capsule 0.4 mg PO DAILY URINE FLOW 11/18/13 [History Last Taken 05/22/18] fluoxetine 20 mg capsule 20 mg PO DAILY DEPRESSION 12/27/16 [History Last Taken 05/22/18 20 mg] brimonidine 0.2 % eye drops 1 drp ophthalmic (eye) BID glacoma 08/05/17 [History Last Taken 05/22/18 1 drp] timolol maleate 0.5 % eye drops (Timoptic) 1 drp ophthalmic (eye) BID glacoma 08/05/17 [History Last Taken 05/22/18 1 drp] carvedilol 3.125 mg tablet 3.125 mg PO BID #60 tabs 09/10/17 [Rx Last Taken 05/22/18] amlodipine 10 mg tablet 2.5 mg PO DAILY 04/21/18 [History Last Taken 07/30/19] apixaban 5 mg tablet (Eliquis) 5 mg PO BID 07/15/21 [History Last Taken Unknown] imiquimod 5 % topical cream packet 1 applic topical 5XW 6 weeks #30 ea 02/21/22 [Rx Last Taken Unknown] aspirin 81 mg tablet,delayed release 81 mg PO QHS 03/26/22 [History Last Taken Unknown] gabapentin 100 mg capsule 100 mg PO TID 03/26/22 [History Last Taken Unknown] Allergy/AdvReac Type Severity Reaction Status Date / Time adhesive AdvReac Itching Verified 03/26/22 00:02 atorvastatin [From Lipitor] AdvReac Other Verified 03/26/22 00:02 rosuvastatin calcium AdvReac ACHING Verified 03/26/22 00:02 [From Crestor] Family History Sister Diabetes Surgical History EXCISION ATYPICAL SQUAMOUS LESION EXCISION LESIONS AND SKIN CANCERS EXCISION OF SKIN CANCER FACE AND HANDS H/O knee surgery History of basal cell carcinoma excision History of carpal tunnel surgery History of cholecystectomy History of squamous cell carcinoma excision History of squamous cell carcinoma excision Hx of cataract surgery INTRADERMAL EXCISION LESIONS S/P AAA repair Social History housing: house Smoking Status: Never smoker second hand exposure: No quit status: has quit before alcohol intake: current details: BEER AND MIXED DRINKS SOCIAL substance use type: does not use what type of physical activity do you participate in: other seatbelt use: always do you feel safe at home: Yes additional social history: SUN EXPOSURE: FREQUENTLY ROS ROS ED ROS Narrative Denies recent illness. Review of Systems ROS Unobtainable: Denies due to encephalopathy Constitutional Constitutional ED: Denies chills or fever(s) Eyes Eyes: Denies blurry vision ENT ENT ED: Denies ear pain Cardiovascular Cardiovascular: Denies chest pain Respiratory/Chest Respiratory/Chest: Denies cough or dyspnea Gastrointestinal Gastrointestinal: Denies abdominal pain Genitourinary Genitourinary ED: Denies dysuria Musculoskeletal Musculoskeletal: Denies arthralgias Integumentary Denies abscess Neurologic Neurologic: Denies headache(s) Psychiatric Psychiatric: Denies anxiety Endocrine Endocrinology: Denies polydipsia Hematologic/Lymphatic Hematologic/Lymphatic: Denies easy bleeding Allergic/Immunologic Allergic/Immunologic ED: Denies mouth swelling or tongue swelling EXAM Physical Exam Narrative Exam Narrative: 76-year-old male no acute distress. His blood pressure is 81/55 however sitting upright in bed no distress. Awake alert talking. Afebrile. Pulse ox 90% on room air no hypoxia. H EENT exam he has about a 1-1/2 inch laceration mid forehead. It will need repaired. No sniffing hematoma. Pupils round reactive light. Scalp nontender. Otherwise his face is nontender. Dentition intact. C-spine nontender. Trachea midline. Lungs clear to auscultation. Heart regular rhythm rate about 80 no murmur. Chest wall and ribs nontender. Abdomen soft nontender. Pelvic girdle intact. No shortening or rotation of either hips. 5/5 non destructive testing inspector strength both hands. Wrists elbows shoulders nontender. Hips knees ankles nontender. Normal dorsi plantar flexion. Back nontender. Neurologically is awake and alert with no focal motor deficits. Answering questions and following commands. Const Vital Signs: 03/26/22 00:02 03/26/22 01:21 03/26/22 01:23 Temperature 97.0 F L Temperature Source Temporal Pulse Rate 84 64 Respiratory Rate 16 20 H Respiratory Effort Normal Non-Labored Respiratory Depth Normal Respiratory Pattern Normal Blood Pressure 81/55 L 116/70 Blood Pressure Mean 63 85 Pulse Ox 98 96 Oxygen Delivery Method Room Air 03/26/22 02:10 03/26/22 03:00 03/26/22 04:00 Temperature Temperature Source Pulse Rate 67 61 69 Respiratory Rate 23 H 17 21 H Respiratory Effort Respiratory Depth Respiratory Pattern Blood Pressure 125/74 H 137/69 H 142/75 H Blood Pressure Mean 91 91 97 Pulse Ox 95 97 96 Oxygen Delivery Method Room Air Room Air Room Air Positive well nourished, well developed and obese; Negative for cachectic, contractures or unkempt General Appearance ED: well developed and NAD; Negative for unkempt, cachectic or contractures Nutritional Appearance: obese; Negative for cachectic HEENT Reports normocephalic trauma; Negative for atraumatic Eyes PERRL and EOMs intact bilaterally Neck full ROM, no lymphadenopathy and supple General: Negative for tenderness Chest Wall inspection of chest normal and palpation of chest normal Chest: Negative for other Resp normal respiratory effort, no retractions and clear to auscultation bilaterally Effort and Inspection: Negative for pain with movement Auscultation: Negative for rales, rhonchi or wheezes Cardio regular rate, regular rhythm, S1 normal heart sound, S2 normal heart sound and no murmurs Rate: Negative for bradycardia Rhythm: Negative for abnormal rhythm Bruits: Negative for other GI non-tender, non-distended and no masses Inspection: Negative for abdominal distention Auscultation: normoactive bowel sounds Palpation: soft; Negative for guarding Back/Spine no CVA tenderness General Back: Negative for CVA tenderness Cervical Spine: Negative for cervical spine tenderness Thoracic Spine / Upper Back: Negative for ROM limited Lumbar Spine / Lower Back: Negative for lumbar spinal tenderness Neuro oriented x3, CN's II-XII intact bilaterally, moves all extremities and no focal motor deficits [place] Coma Scale: document GCS findings Spontaneous Obeys Commands Oriented 15 Sensorium / Orientation: alert, oriented to person, oriented to place and oriented to time; Negative for orientation impaired, confused, lethargic or stuporous Motor Exam: strength 5/5 throughout Psych mental status grossly normal and thought process normal Appearance: Negative for unkempt Attitude: No agitated Mood & Affect: Negative for depressed, anxious or tearful Skin Lesions: no lesions Rashes: no rashes Trauma: laceration; Negative for abrasion MDM MDM MDM Narrative Medical decision making narrative: 76-year-old male got lightheaded at home fell. As of forehead lacerations will need repaired. Tetanus will be updated. He is on Eliquis will need a CAT scan of his head. He is having no neck pain. He is also presents hypotensive screening labs and EKG will be obtained. He felt fine prior to the fall. He has had no recent infectious symptoms. He will be given a liter normal saline. Repeat exam at 4:25 AM patient doing well. Other than his initial low blood pressure reading all his blood pressure is a bit in the normal range. He was given a liter of fluid. Patient doing well. I put 5, 6-0 Ethilon sutures in his forehead laceration closed well. Proper hemostasis was obtained. He is instructed on wound care. Instructed on holding his Eliquis for 1 day. We discussed the possibility of a delayed intracranial bleed. If he gets a severe headache, vomiting or not acting right he should return. Stitches out in 10 days. Repeat exam unchanged. His blood pressures been stable. Nurses will clean and dress the wound. He will be ambulated and discharged. Lab Data Attestation: I reviewed the patient's lab results. Lab results narrative: CBC shows a white count of 5.3. H&H 12.2 and 37. Platelets 181. Electrolytes unremarkable gap is 7 normal BUN of 11 creatinine 0.8. Glucose of 108. Patient's has been drinking night and his alcohol is elevated at 118. His lactic acid elevated at 3.5. I do not think this is secondary to sepsis. He has no fever. No white count. He has not recently been ill. And on physical exam he has no signs of infection. Labs are consistent with prior. Labs: Laboratory Results - last 24 hr 03/26/22 03/26/22 03/26/22 01:15 01:15 01:15 WBC 5.3 RBC 3.73 L Hgb 12.2 L Hct 37.7 L MCV 101.1 H MCH 32.7 H MCHC 32.4 RDW Std Deviation 51.1 H RDW Coeff of Endy 13.7 Plt Count 181 MPV 9.1 Immature Gran % (Auto) 0.200 Neut % (Auto) 62.3 Lymph % (Auto) 25.3 [place] % (Auto) 9.1 Eos % (Auto) 2.7 Baso % (Auto) 0.4 Absolute Neuts (auto) 3.3 Absolute Lymphs (auto) 1.33 Nucleated RBC % 0 Sodium 143 Potassium 3.6 Chloride 110 H Carbon Dioxide 26.0 Anion Gap 7 BUN 11 Creatinine 0.87 Estim Creat Clear Calc 81.63 Est GFR (MDRD) Af Amer 110 Est GFR (MDRD) Non-Af 91 BUN/Creatinine Ratio 12.7 Glucose 108 H Lactic Acid Calcium 8.1 L Ethyl Alcohol 118.0 03/26/22 01:15 WBC RBC Hgb Hct MCV MCH MCHC RDW Std Deviation RDW Coeff of Endy Plt Count MPV Immature Gran % (Auto) Neut % (Auto) Lymph % (Auto) [place] % (Auto) Eos % (Auto) Baso % (Auto) Absolute Neuts (auto) Absolute Lymphs (auto) Nucleated RBC % Sodium Potassium Chloride Carbon Dioxide Anion Gap BUN Creatinine Estim Creat Clear Calc Est GFR (MDRD) Af Amer Est GFR (MDRD) Non-Af BUN/Creatinine Ratio Glucose Lactic Acid 3.5 H* Calcium Ethyl Alcohol Radiography Diagnostic Testing: Clinical Impression(s) from Imaging Studies Brain CT 03/26/22 00:47 IMPRESSION: Chronic involutional and white matter changes. No evidence of acute intracranial abnormality. Sinusitis. Electronically Signed: Vadim Joy MD at 1:50 EDT , Chest X-Ray 03/26/22 00:47 IMPRESSION: No radiographic evidence of acute cardiopulmonary disease. Electronically Signed: Vadim Joy MD at 1:51 EDT , Chest x-ray, portable, single view interpreted both by myself and the radiologist. This shows chronic changes. No acute process. Normal cardiac silhouette. No infiltrates. Rhythm Strip Rhythm Strip: Sinus Rhythm Rate: 65 Ectopy: None EKG Initial EKG: Attestation: I personally reviewed and interpreted this EKG as follows: Interpretation: Sinus Rhythm and No Acute Injury Pattern Comments: Normal sinus rhythm rate of 65. No acute signs of HI or ischemia. Procedures Lacerations Forehead laceration: Length: 1.97 in Depth: Sub Q Shape: Linear Prep: Shure-Clens Laceration repair: Irrigated, Lidocaine, Local and Skin sutures Number of Sutures/Collette: 5 Suture Information: Ethilon, Simple and 6-0 Comment: Forehead laceration. Local anesthetized with LAT and then subcu lidocaine. Washed with Shur-Clens then saline and irrigated with saline. Explored. Involve the skin and subcu tissue. No foreign body. Closed using 5 simple interrupted 6-0 Ethilon sutures. Proper hemostasis and wound closure is obtained. Patient tolerated procedure well. Discharge Plan Triage Chief Complaint: Fall ED Provider: Den Rivero Dx/Rx/DC Orders Clinical Impression: Fall, Alcohol intoxication, Closed head injury, Laceration of forehead, Chronic anticoagulation, Transient hypotension Instructions: ED Head Injury (Adult), ED Laceration: All Closures Prescriptions: No Action brimonidine 0.2 % drops 1 drp OPHTHALMIC BID timolol maleate [Timoptic] 0.5 % drops 1 drp OPHTHALMIC BID imiquimod 5 % cream in packet 1 applic topical 5XW 42 Days Qty: 30 0RF tamsulosin 0.4 MG capsule 0.4 mg PO DAILY omeprazole 20 MG capsule 20 mg PO DAILY finasteride 5 MG tablet 5 mg PO DAILY fluoxetine 20 MG capsule 20 mg PO DAILY carvedilol 3.125 MG tablet 3.125 mg PO BID Qty: 60 0RF amlodipine 10 MG tablet 2.5 mg PO DAILY Eliquis 5 mg tablet 5 mg PO BID Label Comments: TAKE 1 TABLET BY MOUTH TWICE A DAY aspirin [Aspir-81] 81 mg Tablet,Delayed Release (Dr/Ec) 81 mg PO QHS gabapentin 100 mg capsule 100 mg PO TID Label Comments: TAKE 1 CAPSULE BY MOUTH THREE TIMES DAILY FOR 30 DAYS. Primary Care Provider: Igor Ge Referrals: Igor Ge MD [Primary Care Provider] - 10 Day for suture removal Activity Restrictions/Additional Instructions: Hold your Eliquis on Friday May restarted on Friday. Keep your forehead clean and dress. If our dressing stays dry and clean you can leave it on for for 5 days. Then change it daily. Clean the wound gently. Apply antibiotic ointment. Stitches out in 10 days. Return if severe headache, vomiting or not acting right. These are signs of a possible delayed intracranial bleed. This is unlikely but can happen. Tylenol for pain. No more alcohol in the next 24 hours. Disposition Disposition: Home, Self Care
[2022-03-26] MEDS: Lidocaine 1% (20 ml mdv) 20 ML Vial 10 ML INFILT (01:18)
[2022-03-26] MEDS: Lidocaine/Epi/Tetracaine 50 ML 1 APPLIC TOPICAL (01:19)
[2022-03-26] MEDS: Diphth,Pertuss(Acell),Tet Vac 0.5 ML Vial IM (01:19)
[2022-03-26] MEDS: 0.9% Normal Saline 1,000 ML 1000 ML IV (01:19)
[2022-03-26 01:21] VITALS: BP 116/70; PULSE 64; RESP 20; O2SAT 96
[2022-03-26 01:22] LABS: Absolute Lymphocyte Count 1.33 X10^3/uL (0.83-4.51); Absolute Neutrophil Count 3.3 X10^3/uL (2.0-7.7); Basophil# 0.02 X10^3/uL; Basophil% 0.4 % (0-1); Eosinophil# 0.14 X10^3/uL; Eosinophils% 2.7 % (0-5); Hematocrit 37.7 % (40-54); Hemoglobin 12.2 g/dL (13.0-16.5); Lymphocyte # 1.33 X10^3/ul (0.83-4.51); Lymphocyte % 25.3 % (19-41); Mean Corp Hgb Conc 32.4 g/dL (32-36); Mean Corpuscular Hgb 32.7 pg (27.0-32.0); Mean Corpuscular Volume 101.1 fL (80-94); Mean Platelet Vol. 9.1 fl (6.2-12.0); Monocyte# 0.48 X10^3/uL; Monocyte% 9.1 % (0-10); NRBC Flagged by Analyzer 0 % (0-5); Neutrophil # 3.27 X10^3/uL (2.7-7.7); Neutrophil % 62.3 % (47-70); Platelet Count 181 K/mm3 (150-450); RBC Distribution Width CV 13.7 % (11.6-14.6); RBC Distribution Width SD 51.1 fl (35.1-43.9); Red Blood Count 3.73 M/mm3 (4.6-6.2); White Blood Count 5.3 K/mm3 (4.4-11.0)
[2022-03-26 01:52] LABS: Anion Gap 7 (5-15); BUN 11 mg/dL (7-18); BUN/Creat Ratio 12.7 RATIO (10-20); Calcium,Total 8.1 mg/dL (8.5-10.1); Chloride 110 mmol/L (98-107); Creatinine, Serum 0.87 mg/dL (0.70-1.30); EST Glomerular Filtration Rate 91 mL/min (>60); Est Glom Filt Rate - Afr Amer 110 mL/min (>60); Estimated Creatinine Clearance 81.63 ml/min; Glucose 108 mg/dL (74-106); Potassium 3.6 mmol/L (3.5-5.1); Sodium Level 143 mmol/L (136-145)
[2022-03-26 02:10] VITALS: BP 125/74; PULSE 67; RESP 23; O2SAT 95
[2022-03-26 03:00] VITALS: BP 137/69; PULSE 61; RESP 17; O2SAT 97
[2022-03-26 03:01] LABS: Lactic Acid 3.5 mmol/L (0.4-1.9)
[2022-03-26 04:00] VITALS: BP 142/75; PULSE 69; RESP 21; O2SAT 96
[2022-03-26 05:01] VITALS: BP 122/75; PULSE 80; RESP 15; O2SAT 97; O2SAT 99
[2022-03-26 05:19] LABS: Reflex Lactate? Y
== END 2022-03-26 05:05 | disposition home or self-care (01) ==
PROVIDERS: Emergency Provider Emergency Medicine; PCP Family Medicine; Visit Provider Emergency Medicine
DX: S01.81XA Laceration without foreign body of other part of head, initial encounter (principal); F10.129 Alcohol abuse with intoxication, unspecified; I95.9 Hypotension, unspecified; I10 Essential (primary) hypertension; E66.9 Obesity, unspecified; K21.9 Gastro-esophageal reflux disease without esophagitis; Z23 Encounter for immunization; Z79.01 Long term (current) use of anticoagulants; Z79.899 Other long term (current) drug therapy; Z79.82 Long term (current) use of aspirin; W18.30XA Fall on same level, unspecified, initial encounter
CPT/HCPCS: 12011; 70450; 71045; 80048; 82077; 83605; 85025; 90715; 93005; 96360; 96361; 96372; 99285; J7030; A4216

== ENCOUNTER 2022-04-17 19:56 | Emergency (ER) | payer MEDICARE, SELFPAY ==
[2022-04-17 19:57] VITALS: BP 192/95; PULSE 109; RESP 16; TEMP 36.3; O2SAT 98; BMI 31.6
--- NOTE | 2022-04-17 20:44 | EDS_ITS ---
HPI History of Present Illness Chief Complaint: Wound Informant: patient Narrative Narrative: Patient presents with bleeding on his forehead that is now stopped. He is on Eliquis. He had a laceration there a few weeks ago that was sutured. He had the sutures out. He states he has had a scab on the area since. This evening he scratched his forehead and pulled the scab off. It started bleeding. He had trouble getting it to stop so he came in for evaluation. However, it has now stopped. No other areas of bleeding. He does not feel lightheaded or dizzy. 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 ATYPICAL SQUAMOUS LESION LEFT PREAURICULAR AREA Basal cell carcinoma Basal cell carcinoma of right postauricular region Carpal tunnel syndrome Cataract GERD (gastroesophageal reflux disease) Hyperlipidemia Hypertension INFLAMED ACTINIC KERATOSIS INFLAMED ACTINIC KERATOSIS RIGHT VOLAR FOREARM Neoplasm of skin of ear Neoplasm of skin of forearm Neoplasm of skin of hand Neoplasm of skin of left cheek Neoplasm of skin of sikh region Neoplasm of skin of upper arm Nodule of right lung Other seborrheic keratosis Personal history of skin cancer Prostate enlargement Pulmonary emphysema SCATTERED ACTINIC DAMAGE ON FACE AND UPPER EXTREMITIES Seborrheic keratosis Situational depression Solar keratosis 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 Squamous cell carcinoma Squamous cell carcinoma in situ Squamous cell carcinoma in situ Squamous cell carcinoma in situ Squamous cell carcinoma of dorsum of right hand Squamous cell carcinoma of skin of left cheek Venous insufficiency of both lower extremities Home Medications finasteride 5 mg tablet 5 mg PO DAILY Prostate 11/18/13 [History Last Taken 05/22/18 5 mg] omeprazole 20 mg capsule,delayed release 20 mg PO DAILY GERD 11/18/13 [History Last Taken 07/30/19] tamsulosin 0.4 mg capsule 0.4 mg PO DAILY URINE FLOW 11/18/13 [History Last Taken 05/22/18] fluoxetine 20 mg capsule 20 mg PO DAILY DEPRESSION 12/27/16 [History Last Taken 05/22/18 20 mg] brimonidine 0.2 % eye drops 1 drp ophthalmic (eye) BID glacoma 03/06/18 [History Last Taken 05/22/18 1 drp] timolol maleate 0.5 % eye drops (Timoptic) 1 drp ophthalmic (eye) BID glacoma 08/05/17 [History Last Taken 05/22/18 1 drp] carvedilol 3.125 mg tablet 3.125 mg PO BID #60 tabs 09/10/17 [Rx Last Taken 05/22/18] amlodipine 10 mg tablet 2.5 mg PO DAILY 04/21/18 [History Last Taken 07/30/19] apixaban 5 mg tablet (Eliquis) 5 mg PO BID 07/15/21 [History Last Taken Unknown] aspirin 81 mg tablet,delayed release 81 mg PO QHS 03/26/22 [History Last Taken Unknown] gabapentin 100 mg capsule 100 mg PO TID 03/26/22 [History Last Taken Unknown] Allergy/AdvReac Type Severity Reaction Status Date / Time adhesive AdvReac Itching Verified 03/26/22 00:02 atorvastatin [From Lipitor] AdvReac Other Verified 03/26/22 00:02 rosuvastatin calcium AdvReac ACHING Verified 03/26/22 00:02 [From Crestor] Family History Sister Diabetes Surgical History EXCISION ATYPICAL SQUAMOUS LESION EXCISION LESIONS AND SKIN CANCERS EXCISION OF SKIN CANCER FACE AND HANDS H/O knee surgery History of basal cell carcinoma excision History of carpal tunnel surgery History of cholecystectomy History of squamous cell carcinoma excision History of squamous cell carcinoma excision Hx of cataract surgery INTRADERMAL EXCISION LESIONS S/P AAA repair Social History housing: house Smoking Status: Never smoker second hand exposure: No quit status: has quit before alcohol intake: current details: BEER AND MIXED DRINKS SOCIAL substance use type: does not use what type of physical activity do you participate in: other seatbelt use: always do you feel safe at home: Yes additional social history: SUN EXPOSURE: FREQUENTLY ROS ROS ED Constitutional Constitutional ED: Denies chills or fever(s) Eyes Eyes: Denies change in vision ENT ENT ED: Denies sore throat Cardiovascular Cardiovascular: Denies chest pain or palpitations Respiratory/Chest Respiratory/Chest: Denies dyspnea Gastrointestinal Gastrointestinal: Denies nausea or vomiting Genitourinary Genitourinary ED: Denies hematuria Musculoskeletal Musculoskeletal: Denies myalgias Integumentary Reports Abrasions and rash Neurologic Neurologic: Denies headache(s), paresthesias or weakness Hematologic/Lymphatic Hematologic/Lymphatic: Reports easy bleeding and easy bruising Allergic/Immunologic Allergic/Immunologic ED: Denies urticaria EXAM Physical Exam Const Vital Signs: 04/17/22 19:57 Temperature 97.4 F L Temperature Source Temporal Pulse Rate 109 H Respiratory Rate 16 Blood Pressure 192/95 H Blood Pressure Mean 127 Pulse Ox 98 Oxygen Delivery Method Room Air Positive well nourished and well developed Constitutional Narrative: Patient has López wrap around his head. But this is really loosened and is sitting on top of his head at this time. General Appearance ED: well developed and NAD HEENT Reports moist mucous membranes HEENT Narrative: There is a lesion about 1 cm round on his forehead just left of center. This looks to be healing. No sign of infection. It looks like a scab was just unroofed from this. There is a bit of a raw area. However, there is no bleeding. No sign of infection. There is nothing to be sutured. Eyes EOMs intact bilaterally General Eye ED: Negative for scleral icterus Neck supple Resp normal respiratory effort Extremity normal to inspection Extremity Narrative: Few ecchymoses on forearms consistent with anticoagulation but no acute process Neuro Sensorium / Orientation: alert Psych mental status grossly normal Skin Skin Narrative: See above MDM MDM MDM Narrative Medical decision making narrative: This lesion does not need suturing. There is nothing to close. There is no sign of infection. I think trying to put anesthesia/epinephrine around this would likely cause more bleeding and irritation. This is an area that is a little bit difficult to wrap because it is low on the forehead. But we will place Surgif[place]am in the area. We will put a compressive wrap. It was explained that this really needs to stay on for 2 or 3 days. He needs to completely avoid scratching it. I also note that he wears a hat. I explained he should probably avoid this so the brim of the hat does not hit the lesion. Discharge Plan Triage Chief Complaint: Wound ED Provider: Abimael Jain Dx/Rx/DC Orders Clinical Impression: Hemorrhage of skin lesion Instructions: First Aid: Bleeding Prescriptions: No Action brimonidine 0.2 % drops 1 drp OPHTHALMIC BID timolol maleate [Timoptic] 0.5 % drops 1 drp OPHTHALMIC BID tamsulosin 0.4 MG capsule 0.4 mg PO DAILY omeprazole 20 MG capsule 20 mg PO DAILY finasteride 5 MG tablet 5 mg PO DAILY fluoxetine 20 MG capsule 20 mg PO DAILY carvedilol 3.125 MG tablet 3.125 mg PO BID Qty: 60 0RF amlodipine 10 MG tablet 2.5 mg PO DAILY Eliquis 5 mg tablet 5 mg PO BID Label Comments: TAKE 1 TABLET BY MOUTH TWICE A DAY aspirin [Aspir-81] 81 mg Tablet,Delayed Release (Dr/Ec) 81 mg PO QHS gabapentin 100 mg capsule 100 mg PO TID Label Comments: TAKE 1 CAPSULE BY MOUTH THREE TIMES DAILY FOR 30 DAYS. Primary Care Provider: Igor Ge Referrals: Igor Ge MD [Primary Care Provider] - 3-5 Days if not improving Disposition Disposition: Home, Self Care
[2022-04-17] MEDS: Gelatin Sponge Absorbable 50cm (1) 1 EACH TOPICAL (21:11)
== END 2022-04-17 21:12 | disposition home or self-care (01) ==
PROVIDERS: Emergency Provider Emergency Medicine; PCP Family Medicine; Visit Provider Emergency Medicine
DX: R23.3 Spontaneous ecchymoses (principal); I10 Essential (primary) hypertension; Z79.01 Long term (current) use of anticoagulants; Z79.82 Long term (current) use of aspirin; Z79.899 Other long term (current) drug therapy
CPT/HCPCS: 99282

== ENCOUNTER → 2022-09-30 | Outpatient (CLI) | payer MEDICARE, SELFPAY ==
--- NOTE | 2022-09-30 08:41 | AAVD_ITS ---
Reason For Study: AAA Aorta Measurements Aorta Doppler Measurements Proximal aorta measures1.85 x 1.80cm. in cross- Peak systolic flow velocities within the proximal sectional axis. aorta measure 54.2 cm/sec. Proximal aorta measures1.81cm. in longitudinal Peak systolic flow velocities within the mid aorta axis. measure 65.1 cm/sec. Mid Aorta, stent, 2.28 x 2.32 x 2.16 cm Distal Aorta, Limb 1, 101.3 cm/sec. Mid Aorta, residual sac, 3.4 x 3.5 x 3.3 cm Distal Aorta, Limb 2, 99.5 cm/sec. Distal Aorta, Limb 1, 1.18 x 1.16 x 1.18 cm. Distal Aorta, Limb 2, 1.08 x 1.09 x 1.08 cm. Distal Aorta, residual sac, 4.13 x 4.42 x 4.29 cm. Left Iliac Artery Left iliac artery measures 1.75 x 1.74 cm. in the cross-sectional axis. Left iliac artery measures 1.80 cm. in the longitudinal axis. Peak systolic velocity in the left iliac artery measures 39.7 cm/sec. Right Iliac Artery Right iliac artery measures 1.81 x 1.84 cm. in the cross-sectional axis. Right iliac artery measures 1.88 cm. in the longitudinal axis. Peak systolic velocity in the right iliac artery measures 41.5 cm/sec. Distal to stent, 152 cm/sec. Procedure Aorta IVC Iliac vasculature or bypass grafts [id number]. Exam performed in department. VL/Abd Aortic/IVC Duplex scan Interpretation Summary Proximal abdominal aorta measures 1.85 x 1.8 cm diameter. Evidence of a infrarenal abdominal aortic stent graft proximally measuring 2.28 x 2.32 cm The residual aortic aneurysm sac measures 4.13 x 4.42 cm Right common iliac measures 1.81 x 1.84 cm in diameter Left common iliac measures 1.75 x 1.74 cm in diameter Flow velocities appear to be normal throughout the aortic stent graft and bilat eral limbs. No evidence for endoleak identified. Previous examination suggest the residual sac measured 4.05 x 4.44 cm on September Ordering Physician: Nam Berg Referring Physician: Rob Ge Performed By: Rohini John RVT
== END | disposition home or self-care (01) ==
LOC: CVS 08:40
PROVIDERS: PCP Family Medicine; Referring Provider Surgery; Visit Provider Surgery
DX: I71.41 Pararenal abdominal aortic aneurysm, without rupture (principal)
CPT/HCPCS: 93978

== ENCOUNTER → 2023-01-16 | Outpatient (CLI) | payer MEDICARE, SELFPAY ==
[2023-01-16 17:40] LABS: Absolute Lymphocyte Count 1.22 X10^3/uL (0.83-4.51); Absolute Neutrophil Count 6.3 X10^3/uL (2.0-7.7); Basophil# 0.05 X10^3/uL; Basophil% 0.6 % (0-1); Eosinophil# 0.49 X10^3/uL; Eosinophils% 5.6 % (0-5); Hematocrit 42.6 % (40-54); Hemoglobin 13.4 g/dL (13.0-16.5); Lymphocyte # 1.22 X10^3/ul (0.83-4.51); Mean Corp Hgb Conc 31.5 g/dL (32-36); Mean Corpuscular Hgb 29.5 pg (27.0-32.0); Mean Corpuscular Volume 93.8 fL (80-94); Mean Platelet Vol. 9.6 fl (6.2-12.0); Monocyte# 0.68 X10^3/uL; Monocyte% 7.8 % (0-10); NRBC Flagged by Analyzer 0 % (0-5); Neutrophil # 6.28 X10^3/uL (2.7-7.7); Neutrophil % 71.8 % (47-70); Platelet Count 277 K/mm3 (150-450); RBC Distribution Width CV 14.5 % (11.6-14.6); RBC Distribution Width SD 49.8 fl (35.1-43.9); Red Blood Count 4.54 M/mm3 (4.6-6.2); White Blood Count 8.7 K/mm3 (4.4-11.0)
[2023-01-16 17:53] LABS: ALB/GLOB Ratio 0.6 RATIO (0.9-2.4); AST(SGOT) 16 U/L (15-37); Alanine Aminotransfer ALT/SGPT 16 U/L (16-61); Alkaline Phosphatase 154 U/L (45-117); Anion Gap 2 (5-15); BUN 13 mg/dL (7-18); BUN/Creat Ratio 11.7 RATIO (10-20); Calcium,Total 8.9 mg/dL (8.5-10.1); Chloride 105 mmol/L (98-107); Creatinine, Serum 1.11 mg/dL (0.70-1.30); EST Glomerular Filtration Rate 68 mL/min (>60); Est Glom Filt Rate - Afr Amer 83 mL/min (>60); Globulin 5.2 g/dL (2.2-4.2); Glucose 105 mg/dL (74-106); Potassium 4.5 mmol/L (3.5-5.1); Protein, Total 8.2 g/dL (6.4-8.2); Sodium Level 138 mmol/L (136-145)
[2023-01-16 20:59] LABS: BNP,B-Type NATRIURETIC PEPTIDE 46.4 pg/mL (0-100)
== END | disposition home or self-care (01) ==
LOC: LABSPEC 17:18
PROVIDERS: PCP Family Medicine; Referring Provider Family Medicine; Visit Provider Family Medicine
DX: R06.09 Other forms of dyspnea (principal)
CPT/HCPCS: 80053; 83880; 85025

== ENCOUNTER → 2023-01-29 | Outpatient (CLI) | payer MEDICARE, SELFPAY ==
--- NOTE | 2023-02-03 16:45 | STRESSREP_ITS ---
Stress Test Report Date: 01/29/2023 Procedure: Pharmacologic stress nuclear imaging study Indications: Dyspnea on exertion Consent: Per the patient Procedure: The patient underwent pharmacologic (Regadenoson) evaluation with a peak heart rate of 105 beats per minute (73%predicted maximal heart rate) and a peak blood pressure of 142/80 mmHg. The baseline ECG demonstrated normal sinus rhythm, nonspecific ST-T changes. EKG during lexiscan infusion revealed no significant ischemic changes. EKG post infusion revealed no significant ischemic changes [There were no cardiac dysrhythmias pretest, during pharmacologic infusion, or recovery]. [There was no complaint of chest discomfort during pharmacologic infusion or recovery]. The examination was discontinued secondary to completion of protocol. Impression: 1. Lexiscan stress test test is negative for Lexiscan infusion induced EKG changes of ischemia. 2. Lexiscan stress test test is negative for Lexiscan infusion induced chest pain. 3. Results of the nuclear portion of the test is as below Myocardial perfusion imaging study: Technique: The patient was injected with 14.1 millicuries of technetium 99m Cardiolite and subsequently rest SPECT Cardiolite nuclear imaging was obtained in the horizontal long, vertical long, and short axis views. The patient underwent pharmacologic [Regadenoson 0.4mg] evaluation. Please see above for details. The patient was injected with 45 millicuries of technetium 99m Cardiolite and subsequently stress SPECT Cardiolite nuclear imaging was obtained in the horizontal long, vertical long, and short axis views. A gated Cardiolite study at peak stress was obtained. Interpretation: Rest and stress SPECT Cardiolite nuclear imaging status post realignment, normalization, and attenuation correction demonstrate no evidence of significant ischemia or infarction after attenuation correction. Gated images reveal no significant regional wall motion abnormalities. The reported LVEF is greater than 70%. Impression: 1. There is no evidence of significant ischemia or infarction. 2. Estimated ejection fraction is greater than 70%. This note was generated with [email or web address] software. It may contain incorrect words, spelling, and punctuation that were not noted in checking the note before signing.
== END | disposition home or self-care (01) ==
PROVIDERS: PCP Family Medicine; Referring Provider Family Medicine; Visit Provider Family Medicine
DX: R06.09 Other forms of dyspnea (principal)
CPT/HCPCS: 78452; 93017; A9500; A4216; J2785

== ENCOUNTER → 2023-12-12 | Outpatient (CLI) | payer MEDICARE, SELFPAY ==
--- NOTE | 2023-12-12 08:42 | AAVD_ITS ---
Reason For Study: HX AA Repair Aorta Measurements Aorta Doppler Measurements Proximal aorta measures2.28 x 2.26cm. in cross- Peak systolic flow velocities within the proximal sectional axis. aorta measure 57.7 cm/sec. Proximal aorta measures2.26cm. in longitudinal Peak systolic flow velocities within the mid aorta axis. measure 52.0 cm/sec. Mid aorta measures2.06 x 2.14cm. in cross- Endograft noted sectional axis. Prox Rt Limb - 76.7 cm/s Mid aorta measures2.20cm. in longitudinal axis. Prox Lt Limb - 123.0 cm/s Endo graft noted at Prox/Mid Dist Rt Limb (PREMA) - 61.4 cm/s Distal Aorta - residual sac, 4.42 x 4.26 x 4.32 cmDist Lt Limb (PREMA) - 25.2 cm/s. Prox Rt Limb - 1.30 x 1.15 x 1.16 cm. Prox Lt Limb - 1.41 x 1.45 x 1.38 cm. Dist Rt Limb (PREMA)- 1.86cm x 1.63cm x 1.90cm Dist Lt Limb (PREMA)- 1.92cm x 1.95cm x 1.99cm. Left Iliac Artery Left External Iliac artery measures 1.07 x 0.96 cm. in the cross-sectional axis. Left External Iliac artery measures 0.96 cm. in the longitudinal axis. Peak systolic velocity in the Left External Iliac artery measures 50.5 cm/sec. Right Iliac Artery Right External Iliac Prox artery measures 1.01 x 1.11 cm. in the cross-sectional axis. Right External Iliac artery measures 0.88 cm. in the longitudinal axis. Peak systolic velocity in the Right External Iliac artery measures 135.7 cm/sec. Procedure Aorta IVC Iliac vasculature or bypass grafts [id number]. The exam was diagnostic. Exam performed in department. VL/Abd Aortic/IVC Duplex scan Interpretation Summary History of endograft abdominal aortic aneurysm repair Residual sac measuring 4.42 x 4.26 x 4.32 cm. No gross evidence for endoleak Normal aortic flow velocities Maximum dimension of the distal right common iliac limb covered by endograft is 1.86 x 1.63 x 1.9 cm Maximum left common iliac limb distally covered by endograft is 1.92 x 1.95 x 1 .99 cm Normal bilateral common iliac artery flow velocities Venously on September 30, 2022 the residual abdominal aortic aneurysm sac measured 4.1 3 x 4.42 x 4.29 cm in diameter. Findings do not suggest clinically significant change Ordering Physician: Nam Berg Referring Physician: Nam Berg Performed By: Adrian Ross RVT
== END | disposition home or self-care (01) ==
LOC: CVS 08:40
PROVIDERS: PCP Family Medicine; Referring Provider Surgery; Visit Provider Surgery
DX: Z95.828 Presence of other vascular implants and grafts (principal); I71.40 Abdominal aortic aneurysm, without rupture, unspecified
CPT/HCPCS: 93978

== ENCOUNTER 2024-01-01 02:05 | Emergency (ER) | payer MEDICARE, SELFPAY ==
[2024-01-01 02:05] VITALS: BP 145/78; PULSE 90; RESP 18; TEMP 36.1; O2SAT 94; BMI 30.1
--- NOTE | 2024-01-01 02:13 | RAD_ITS ---
EXAM: XR RIGHT HAND COMPLETE, 3 OR MORE VIEWS CLINICAL INDICATION: fall fall. Some laceration between the fourth and fifth fingers. TECHNIQUE: Frontal, lateral and oblique views of the right hand. COMPARISON: No relevant prior studies available. FINDINGS: BONES/JOINTS: There is a curvilinear lucency which partially extends across the lateral aspect of the distal radius, underlying the radial styloid. Bone margins around the lucency appear rounded and corticated, suggesting that this represents nonunion of an old fracture rather than an acute injury. There is a 4 mm calcification which projects posterior to the carpal bones on lateral view. This may represent a triquetral avulsion fracture. Age is indeterminate. There is an old healed fracture of the fourth metacarpal shaft. SOFT TISSUES: There is a punctate metallic foreign body in the fourth finger, medial to the proximal interphalangeal joint. No soft tissue gas. RAD/Hand Min 3 Views IMPRESSION: 1. Nondisplaced fracture of the distal radius, extending across the base of the radial styloid. I suspect this represents nonunion of an old fracture rather than an acute injury. Suggest clinical correlation. 2. Suspect an avulsion fracture of the posterior triquetrum, age indeterminate. 3. Old healed fracture of the fourth metacarpal. 4. No other visualized fractures. 5. Punctate metallic foreign body in soft tissues of the fourth finger, medial to the PIP joint. Electronically Signed: Jamar Ramirez MD at 5:05 EDT Reading Location ID and State: [facility] / [place] , Service support ,
--- NOTE | 2024-01-01 02:13 | RAD_ITS ---
EXAM: XR LEFT SHOULDER COMPLETE, 2 OR MORE VIEWS CLINICAL INDICATION: fall fall TECHNIQUE: Two or more views of the left shoulder. COMPARISON: No relevant prior studies available. 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 No acute fracture. No subluxation. Normal alignment. No sclerotic or destructive changes observed. SOFT TISSUES: Unremarkable. No soft tissue swelling or gas. No radiopaque foreign body. RAD/Shoulder min 2 Views IMPRESSION: No demonstrated fracture, dislocation, or destructive osseous lesion. Electronically Signed: Jamar Ramirez MD at 4:54 EDT Reading Location ID and State: [facility] / [place] , Service support ,
--- NOTE | 2024-01-01 02:13 | CT_ITS ---
EXAM: CT HEAD WITHOUT INTRAVENOUS CONTRAST CLINICAL INDICATION: head injury head injury. Status post fall. Pain. EtOH. TECHNIQUE: Multiple axial images were obtained of the head without intravenous contrast. This CT exam was performed using one or more of the following dose reduction techniques: automated exposure control, adjustment of the mA and/or kV according to patient size, and/or use of iterative reconstruction technique. RADIATION DOSE: CTDIvol = 44.99 mGy, DLP = 897.35 mGy-cm COMPARISON: CT scan cervical spine done today. CT scan brain 03/26/2022. FINDINGS: BRAIN AND EXTRA-AXIAL SPACES: There are microvascular changes in supratentorial white matter. There is mild cerebral atrophy. No intra- or extra-axial hemorrhage. No evidence of acute infarct. No intracranial mass or mass effect. There is preservation of the bello/white matter interface. Posterior fossa structures are unremarkable. No hydrocephalus. Basal cisterns are patent. BONES/JOINTS: Unremarkable. No discrete lytic or blastic abnormalities. SOFT TISSUES: There is a right frontal skin contusion. VASCULATURE: There is atherosclerotic calcification of the cavernous carotid arteries. SINUSES: Unremarkable as visualized. Clear. MASTOID AIR CELLS: Unremarkable. Clear. ORBITS: There is evidence for previous cataract surgery. CT/Brain/Head without Contrast IMPRESSION: 1. Chronic involutional changes of the brain. 2. No demonstrated acute intracranial process. Electronically Signed: Jamar Ramirez MD at 3:27 EDT Reading Location ID and State: [facility] / [place] , Service support ,
--- NOTE | 2024-01-01 02:13 | EKG12_ITS ---
Test Reason : TRAUMA Blood Pressure : / mmHG Vent. Rate : 095 BPM Atrial Rate : 095 BPM P-R Int : 180 ms QRS Dur : 080 ms QT Int : 380 ms P-R-T Axes : 052 034 008 degrees QTc Int : 477 ms Normal sinus rhythm Normal ECG Confirmed by PEDRO GIFFORD, GINGER ([id number]), editorial clerk SOIEL UREÑA ([id number]) on 01/02/2024 10:26:27 AM Referred By: Confirmed By:SAI VASQUEZ MD
--- NOTE | 2024-01-01 02:13 | CT_ITS ---
EXAM: CT CERVICAL SPINE WITHOUT INTRAVENOUS CONTRAST CLINICAL INDICATION: fall fall TECHNIQUE: Helically acquired images were obtained of the cervical spine without intravenous contrast. 2D reformatted images were reviewed. This CT exam was performed using one or more of the following dose reduction techniques: automated exposure control, adjustment of the mA and/or kV according to patient size, and/or use of iterative reconstruction technique. RADIATION DOSE: CTDIvol = 22.45 mGy, DLP = 557.20 mGy-cm COMPARISON: CT scan cervical spine 07/15/2021. FINDINGS: VERTEBRAE: There is an acute traumatic comminuted fracture of the left lamina of C4 and the left side of the posterior spinous process. There is also a fracture extending through the left C4 pedicle and the left C4 transverse process. Transverse process fracture extends across the vertebral foramen and causes risk for vertebral artery injury. There is multilevel spondylosis. There are bridging osteophytes, bone growth across disc spaces, and degenerative ankylosis of vertebral or apophyseal joints at multiple levels, consistent with degenerative auto fusions. There is partial straightening of the spine, which is probably on a chronic degenerative basis. No traumatic subluxation. No discrete lytic or blastic abnormality. Normal craniocervical junction and cervicothoracic junction. DISCS/SPINAL CANAL/NEURAL FORAMINA: There are multilevel degenerative changes of the uncovertebral joints and apophyseal joints. There is multilevel disc space narrowing. C2-3: Degenerative autofusion. No significant stenosis. C3-4: Degenerative autofusion. Severe stenosis bilateral neural foramina. C4-5: Small broad posterior disc osteophyte complex. There is moderate spinal stenosis with central canal AP diameter of 8 mm. Severe stenosis bilateral neural foramina. C5-6: Degenerative autofusion. Moderate stenosis left neural foramen. C6-7: Degenerative autofusion. No demonstrated stenosis. C7-T1: No demonstrated stenosis. SOFT TISSUES: Unremarkable. No prevertebral soft tissue swelling. LYMPH NODES: Unremarkable. No cervical adenopathy. LUNG APICES: There are small paraseptal emphysematous bullae in the visualized lung apices bilaterally. CT/Spine Cervical without Contras IMPRESSION: 1. Acute fractures at the C4 level, involving the left lamina, left transverse process, left pedicle, and posterior spinous process. There is no associated subluxation or involvement of vertebral body and the fractures are likely to be stable. However, there is extension of fracture across the left vertebral foramen, which indicates risk for vertebral artery injury. Suggest follow-up CTA of the neck. 2. Multilevel degenerative changes, with multilevel degenerative auto fusions. N.B. : The above Results were Read Back by Jamar Ramirez MD to Brendon Zhu MD, and understanding confirmed on 01/01/2024 03:14:58 (ET). Electronically Signed: Jamar Ramirez MD at 3:23 EDT Reading Location ID and State: [facility] / [place] , Service support ,
--- NOTE | 2024-01-01 02:15 | EDS_ITS ---
HPI History of Present Illness Chief Complaint: Fall Detail of Chief Complaint: Fall Informant: patient and family Narrative Narrative: Patient presents the emergency department via EMS from home after sustaining a fall. Patient also accompanied by his son. Another son was staying with the patient. Patient apparently had gotten up to use the restroom and the other son heard the patient fall to the ground. Unknown if there was loss of consciousness. Patient had been drinking last night whiskey. He complains of head and back pain. He complains of right hand pain and left shoulder pain. Patient had been on Eliquis but stopped taking it 2 weeks ago. [facility] Medical History AAA (abdominal aortic aneurysm) AAA (abdominal aortic aneurysm) Abdominal aortic aneurysm (AAA) Actinic keratosis Actinic keratosis ACTINIC LESION WITH SEVERE ATYPIA Actinic skin damage ATYPICAL SQUAMOUS EPITHELIAL LESION WITH SOLAR KERATOSIS ATYPICAL SQUAMOUS LESION LEFT PREAURICULAR AREA Basal cell carcinoma Basal cell carcinoma of right postauricular region Carpal tunnel syndrome Cataract Cutaneous horn Former smoker GERD (gastroesophageal reflux disease) Hyperlipidemia Hypertension INFLAMED ACTINIC KERATOSIS INFLAMED ACTINIC KERATOSIS RIGHT VOLAR FOREARM Neoplasm of skin of ear Neoplasm of skin of forearm Neoplasm of skin of hand Neoplasm of skin of left cheek Neoplasm of skin of left lateral forehead Neoplasm of skin of neck Neoplasm of skin of nose Neoplasm of skin of roman catholic region Neoplasm of skin of upper arm Neoplasm of skin of wrist Nodule of right lung Other seborrheic keratosis Personal history of skin cancer Prostate enlargement Pulmonary emphysema SCATTERED ACTINIC DAMAGE ON FACE AND UPPER EXTREMITIES Seborrheic keratosis Situational depression Solar keratosis 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 Squamous cell carcinoma Squamous cell carcinoma in situ Squamous cell carcinoma in situ Squamous cell carcinoma in situ Squamous cell carcinoma in situ of skin of left ear Squamous cell carcinoma of dorsum of right hand Squamous cell carcinoma of skin of left cheek Venous insufficiency of both lower extremities Home Medications ?Medication ?Instructions ?Recorded ?Last Taken ?Type finasteride 5 mg tablet 5 mg PO DAILY Prostate 11/18/13 05/22/18 History 5 mg omeprazole 20 mg capsule,delayed 20 mg PO DAILY GERD 11/18/13 07/30/19 History release tamsulosin 0.4 mg capsule 0.4 mg PO DAILY URINE FLOW 11/18/13 05/22/18 History fluoxetine 20 mg capsule 20 mg PO DAILY DEPRESSION 12/27/16 05/22/18 History 20 mg brimonidine 0.2 % eye drops 1 drp ophthalmic (eye) BID glacoma 08/05/17 05/22/18 History 1 drp timolol maleate 0.5 % eye drops 1 drp ophthalmic (eye) BID glacoma 08/05/17 05/22/18 History (Timoptic) 1 drp carvedilol 3.125 mg tablet 3.125 mg PO BID #60 tabs 09/10/17 05/22/18 Rx amlodipine 10 mg tablet 2.5 mg PO DAILY 04/21/18 07/30/19 History apixaban 5 mg tablet (Eliquis) 5 mg PO BID 07/15/21 Unknown History aspirin 81 mg tablet,delayed 81 mg PO QHS 03/26/22 Unknown History release gabapentin 100 mg capsule 100 mg PO TID 03/26/22 Unknown History imiquimod 5 % topical cream packet 4 mm topical 5XW 6 weeks #30 ea 07/03/23 Unknown Rx Allergy/AdvReac Type Severity Reaction Status Date / Time adhesive AdvReac Itching Verified 01/01/24 02:06 atorvastatin (From Lipitor) AdvReac Other Verified 01/01/24 02:06 rosuvastatin calcium (From AdvReac ACHING Verified 01/01/24 02:06 Crestor) Family History Sister Diabetes Surgical History EXCISION ATYPICAL SQUAMOUS LESION EXCISION LESIONS AND SKIN CANCERS EXCISION OF SKIN CANCER FACE AND HANDS H/O knee surgery History of basal cell carcinoma excision History of carpal tunnel surgery History of cholecystectomy History of squamous cell carcinoma excision History of squamous cell carcinoma excision Hx of cataract surgery INTRADERMAL EXCISION LESIONS S/P AAA repair Social History housing: house Smoking Status: Never smoker second hand exposure: No quit status: has quit before alcohol intake: current details: [employer] SOCIAL substance use type: does not use what type of physical activity do you participate in: other seatbelt use: always do you feel safe at home: Yes additional social history: SUN EXPOSURE: FREQUENTLY ROS ROS ED Review of Systems ROS Unobtainable: other Constitutional Constitutional ED: Reports lethargy; Denies chills, fever(s), sweats or weight loss Eyes Eyes: Denies blurry vision, change in vision or diplopia ENT ENT ED: Denies rhinorrhea or sore throat Cardiovascular Cardiovascular: Denies chest pain, orthopnea or racing heartbeat Respiratory/Chest Respiratory/Chest: Reports dyspnea and dyspnea on exertion; Denies cough, orthopnea or sputum Gastrointestinal Gastrointestinal: Denies abdominal pain, diarrhea, nausea or vomiting Genitourinary Genitourinary ED: Denies dysuria, hematuria or urinary frequency Musculoskeletal Musculoskeletal: Reports back pain, neck pain and other Details: Right hand pain and left shoulder pain ; Denies arthralgias or myalgias Integumentary Denies abscess, Abrasions or rash Neurologic Neurologic: Reports headache(s); Denies weakness Psychiatric Psychiatric: Denies anxiety, depression or suicidal thoughts Endocrine Endocrinology: Denies polydipsia, polyphagia or polyuria Hematologic/Lymphatic Hematologic/Lymphatic: Denies easy bleeding, easy bruising or lymphadenopathy Allergic/Immunologic Allergic/Immunologic ED: Denies mouth swelling, tongue swelling or urticaria EXAM Physical Exam Const Vital Signs: 01/01/24 02:05 01/01/24 02:05 01/01/24 04:05 Temperature 96.9 F L Temperature Source Temporal Pulse Rate 90 98 Respiratory Rate 18 18 Respiratory Effort Normal Non-Labored Respiratory Depth Normal Respiratory Pattern Normal Blood Pressure 145/78 H 122/71 H Blood Pressure Mean 100 88 Pulse Ox 94 94 Oxygen Delivery Method Room Air Room Air Room Air Positive well nourished and well developed General Appearance ED: well developed and NAD HEENT Reports TM's clear and moist mucous membranes HEENT Narrative: Patient has a superficial laceration over the right forehead measuring 1 cm. Also soft tissue swelling over the forehead. Right infraorbital soft tissue swelling noted. normocephalic and atraumatic; Negative for trauma or tenderness Tympanic Membrane ED: Yes TM's clear Eyes PERRL and EOMs intact bilaterally General Eye ED: Negative for pale conjunctiva or scleral icterus Neck no lymphadenopathy, supple and no JVD Neck Narrative: Mild diffuse tenderness. No bony step-offs noted General: tenderness Chest Wall inspection of chest normal and palpation of chest normal Chest: Negative for tenderness Resp normal respiratory effort and clear to auscultation bilaterally Effort and Inspection: Negative for respiratory distress or pain with movement Auscultation: Negative for rhonchi, wheezes or diminished lung sounds Cardio regular rate, regular rhythm, S1 normal heart sound, S2 normal heart sound and no murmurs Peripheral Pulses: pulses 2+ throughout GI normal to inspection, nondistended, normoactive bowel sounds, soft to palpation, non-tender, non-distended and no masses Back/Spine no CVA tenderness and no thoracic nor lumbar tenderness Extremity normal to inspection Extremity Narrative: Left shoulder-patient has diffuse tenderness on exam. No sulcus sign. Decreased range of motion secondary to pain. Neurovascular intact distally. Patient also has superficial abrasions to the left posterior upper arm. Right hand-patient has some mild diffuse tenderness to palpation over the fourth and fifth MCP joints. He has about 2.5 cm laceration between the fourth and fifth fingers. General Extremety ED: Negative for edema General Extremity: Negative for edema Neuro oriented x3, CN's II-XII intact bilaterally, no sensory deficits noted and gait normal Sensorium / Orientation: awake, alert, oriented to person, oriented to place and oriented to time Motor Exam: strength 5/5 throughout and strength abnormal Psych mental status grossly normal Skin no rashes or lesions noted and no wounds PROC Procedures Lacerations Right hand laceration: Length: 0.98 in Depth: Sub Q Shape: Linear Prep: Sterile Conditions Laceration repair: Irrigated, Lidocaine, Local and Skin sutures Irrigated (ml): 50 Number of Sutures/Wilson: 4 Suture Information: Ethilon, Simple and 5-0 MDM MDM MDM Narrative Medical decision making narrative: Patient presents with fall and injury to head as well as left shoulder and right hand. He is complaining of neck and back pain. IV line established. Patient taken to CT and had a CT scan of the brain without contrast that was unremarkable. CT of the C-spine shows C4 fracture and radiology called and asked that we obtain a CTA of his neck to rule out vertebral artery injury based on the type of fracture. CTA ordered and pending. Patient also had a CT scan of the chest and abdomen pelvis without contrast results which are currently pending. CBC with differential was unremarkable. Chemistries unremarkable. Troponin was 11. Alcohol was 141. Case discussed with patient and his son and I recommended transfer to trauma center. They would like to go to [facility]. I spoke with the ED physician at [facility] who accepted patient for transfer. Spoke with Dr. Dixon there in the emergency department. Hand laceration was repaired by myself please see procedure note. Lab Data Attestation: I reviewed the patient's lab results. Labs: Laboratory Results - last 24 hr 01/01/24 02:21 WBC 8.4 RBC 3.91 L Hgb 10.0 L Hct 33.6 L MCV 85.9 MCH 25.6 L MCHC 29.8 L RDW Std Deviation 47.9 H RDW Coeff of Endy 15.3 H Plt Count 257 MPV 9.0 Immature Gran % (Auto) 0.400 Neut % (Auto) 83.6 H Lymph % (Auto) 9.3 L [place] % (Auto) 6.3 Eos % (Auto) 0.2 Baso % (Auto) 0.2 Absolute Neuts (auto) 7.0 Absolute Lymphs (auto) 0.78 L Nucleated RBC % 0 Sodium 141 Potassium 3.7 Chloride 108 H Carbon Dioxide 25.0 Anion Gap 8 BUN 9 Creatinine 1.17 Estim Creat Clear Calc 64.59 Est GFR (MDRD) Af Amer 77 Est GFR (MDRD) Non-Af 64 BUN/Creatinine Ratio 7.7 L Glucose 100 Calcium 8.6 Troponin I High Sens 11 Ethyl Alcohol 141.0 Radiography Diagnostic Testing: Clinical Impression(s) from Imaging Studies Brain CT 01/01/24 02:13 IMPRESSION: 1. Chronic involutional changes of the brain. 2. No demonstrated acute intracranial process. Electronically Signed: Jamar Ramirez MD at 3:27 EDT Reading Location ID and State: [facility] / [place] , Service support , Cervical Spine CT 01/01/24 02:13 IMPRESSION: 1. Acute fractures at the C4 level, involving the left lamina, left transverse process, left pedicle, and posterior spinous process. There is no associated subluxation or involvement of vertebral body and the fractures are likely to be stable. However, there is extension of fracture across the left vertebral foramen, which indicates risk for vertebral artery injury. Suggest follow-up CTA of the neck. 2. Multilevel degenerative changes, with multilevel degenerative auto fusions. N.B. : The above Results were Read Back by Jamar Ramirez MD to Brendon Zhu MD, and understanding confirmed on 01/01/2024 03:14:58 (ET). Electronically Signed: Jamar Ramirez MD at 3:23 EDT , ADDENDUM: 01/01/24 0330 IMPRESSION: 1. Acute fractures at the C4 level, involving the left lamina, left transverse process, left pedicle, and posterior spinous process. There is no associated subluxation or involvement of vertebral body and the fractures are likely to be stable. However, there is extension of fracture across the left vertebral foramen, which indicates risk for vertebral artery injury. Suggest follow-up CTA of the neck. 2. Multilevel degenerative changes, with multilevel degenerative auto fusions. N.B. : The above Results were Read Back by Jamar Ramirez MD to Brendon Zhu MD, and understanding confirmed on 01/01/2024 03:14:58 (ET). Electronically Signed: Jamar Ramirez MD at 3:23 EDT Reading Location ID and State: [facility] / [place] , Service support , Chest/Abdomen/Pelvis CT 01/01/24 02:30 IMPRESSION: 1. Small right pleural effusion. No other visible evidence for potential acute pathology. 2. Chronic pleural based nodule versus chronic rounded atelectasis in the left lower lobe, stable in appearance. No follow-up evaluation is necessary. 3. Mild emphysematous changes. Suggest annual low-dose low-dose CT scan of the chest for screening. 4. Multiple old healed rib fractures bilaterally. Multiple healing rib fractures on the right. No visualized acute fracture. 5. Atherosclerosis. 6. Status post aortoiliac endograft placement for treatment of an infrarenal abdominal aortic aneurysm, which currently measures 5.4 cm, but measured 4.9 cm in 2021.. Interval growth of the aneurysm suggests presence of an endoleak. Consider nonemergent surgical or endovascular referral. 7. Enlarged prostate. 8. Colonic diverticulosis without evidence for acute diverticulitis. 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 Dissection produces less than 50% narrowing of the true arterial lumen. N.B. : The above Results were Read Back by Jamar Ramirez MD to Brendon Zhu DO, and understanding confirmed on 01/01/2024 03:59:08 (ET). Electronically Signed: Jamar Ramirez MD at 4:04 EDT , Three-view x-rays of right hand obtained interpreted by myself as no evidence of fracture dislocation 2 view x-rays of left shoulder obtained interpreted by myself as no evidence of fracture or dislocation. EKG Initial EKG: Attestation: I personally reviewed and interpreted this EKG as follows: Comments: Sinus rhythm with ventricular rate of 95 bpm with no acute ST segment change Discharge Plan Triage Chief Complaint: Fall ED Provider: Brendon Zhu Dx/Rx/DC Orders Clinical Impression: Fall, C4 cervical fracture, Closed head injury, Laceration of hand, right, Contusion of left shoulder Prescriptions: No Action brimonidine 0.2 % drops 1 drp OPHTHALMIC BID timolol maleate [Timoptic] 0.5 % drops 1 drp OPHTHALMIC BID imiquimod 5 % cream in packet 4 mm topical 5XW 42 Days Qty: 30 2RF Rx Instructions: apply once daily Friday through Friday before bedtime weekends off for 6 weeks tamsulosin 0.4 MG capsule 0.4 mg PO DAILY omeprazole 20 MG capsule 20 mg PO DAILY finasteride 5 MG tablet 5 mg PO DAILY fluoxetine 20 MG capsule 20 mg PO DAILY carvedilol 3.125 MG tablet 3.125 mg PO BID Qty: 60 0RF amlodipine 10 MG tablet 2.5 mg PO DAILY Eliquis 5 mg tablet 5 mg PO BID Patient Comments: TAKE 1 TABLET BY MOUTH TWICE A DAY aspirin [Aspir-81] 81 mg Tablet,Delayed Release (Dr/Ec) 81 mg PO QHS gabapentin 100 mg capsule 100 mg PO TID Patient Comments: TAKE 1 CAPSULE BY MOUTH THREE TIMES DAILY FOR 30 DAYS. Primary Care Provider: Igor Ge Referrals: Igor Ge MD [Primary Care Provider] - Print Language: Rwandan Disposition Disposition: DC/Tx to Another Type of HCF
[2024-01-01 02:29] LABS: Absolute Lymphocyte Count 0.78 X10^3/uL (0.83-4.51); Basophil# 0.02 X10^3/uL; Basophil% 0.2 % (0-1); Eosinophil# 0.02 X10^3/uL; Eosinophils% 0.2 % (0-5); Hematocrit 33.6 % (40-54); Lymphocyte # 0.78 X10^3/ul (0.83-4.51); Lymphocyte % 9.3 % (19-41); Mean Corp Hgb Conc 29.8 g/dL (32-36); Mean Corpuscular Hgb 25.6 pg (27.0-32.0); Mean Corpuscular Volume 85.9 fL (80-94); Monocyte# 0.53 X10^3/uL; Monocyte% 6.3 % (0-10); NRBC Flagged by Analyzer 0 % (0-5); Neutrophil # 6.97 X10^3/uL (2.7-7.7); Neutrophil % 83.6 % (47-70); Platelet Count 257 K/mm3 (150-450); RBC Distribution Width CV 15.3 % (11.6-14.6); RBC Distribution Width SD 47.9 fl (35.1-43.9); Red Blood Count 3.91 M/mm3 (4.6-6.2); White Blood Count 8.4 K/mm3 (4.4-11.0)
--- NOTE | 2024-01-01 02:30 | CT_ITS ---
EXAM: CT CHEST, ABDOMEN AND PELVIS WITHOUT INTRAVENOUS CONTRAST CLINICAL INDICATION: FALL FALL TECHNIQUE: Helically acquired images were obtained of the chest, abdomen and pelvis without intravenous contrast. This CT exam was performed using one or more of the following dose reduction techniques: automated exposure control, adjustment of the mA and/or kV according to patient size, and/or use of iterative reconstruction technique. RADIATION DOSE: CTDIvol = 23.06 mGy, DLP = 2293.18 mGy-cm COMPARISON: CT scan Chest Abdomen and pelvis 07/15/2021. FINDINGS: CHEST: LUNGS AND PLEURAL SPACES: There is a calcified pulmonary granuloma in the left upper lobe. There is a small right pleural effusion. There is atelectasis in the posterior lungs bilaterally. There is no demonstrated acute pulmonary infiltrate. As seen on series 2, axial images 80-93, there is a 2.4 x 5.3 cm posterior pleural-based left lower lobe lung mass versus chronic rounded atelectasis, which is unchanged from the 2021 exam. No further evaluation of this is necessary. There are paraseptal emphysematous bullae in the upper lung brown bilaterally. No pneumothorax. HEART: There are coronary artery calcifications. Heart size is normal. No pericardial effusion. MEDIASTINUM: There are calcified granulomas in the mediastinum and left hilum. No mediastinal or hilar adenopathy. Esophagus is unremarkable. No hiatal hernia. THYROID: Unremarkable. No thyroid lesions. ABDOMEN: LIVER: Unremarkable. Homogeneous. GALLBLADDER AND BILE DUCTS: Unremarkable. No calcified gallstones. No gallbladder distention or wall edema. No intra- or extrahepatic biliary ductal dilation. PANCREAS: Unremarkable. No focal cystic mass. SPLEEN: Unremarkable. Normal size without focal cystic or solid mass. ADRENALS: Unremarkable. No nodules. KIDNEYS AND URETERS: There are simple appearing renal cysts bilaterally as well as cysts are too small to reliably characterize. No follow-up imaging is necessary for simple renal cysts or cysts that are too small to characterize. Normal renal size and position. No hydronephrosis. STOMACH AND BOWEL: There are colonic diverticula. There is no evidence for acute diverticulitis. No stomach or bowel distention. PELVIS: APPENDIX: No evidence of acute appendicitis. BLADDER: Unremarkable. REPRODUCTIVE: The prostate gland is enlarged. CHEST, ABDOMEN and PELVIS: INTRAPERITONEAL SPACE: Unremarkable. No ascites or other fluid collection. No free air. BONES/JOINTS: There are multiple old healed rib fractures bilaterally. There are nonacute healing fractures of the posterior or posterolateral segments of the right ninth, 10th, 11th, and 12th ribs. There are no visualized acute rib fractures. There are multilevel degenerative changes in the visualized spine. There are bridging osteophytes at multiple contiguous levels of the thoracic spine, consistent with DISH (diffuse idiopathic skeletal hyperostosis). No suspicious lytic or blastic abnormality. SOFT TISSUES: Unremarkable. No discrete abdominal or pelvic wall hernia. VASCULATURE: The patient has undergone previous endograft placement for treatment of an infrarenal abdominal aortic aneurysm with placement of an aortic-bilateral common iliac artery endograft. There is aneurysmal dilatation of aorta around the graft, with maximal diameters of 5.0 x 5.4 cm. On the 2021 exam, maximal diameters were 4.1 x 4.9 cm. Interval growth of the aneurysm suggests presence of an endoleak. There is no evidence for aortic rupture. There is atherosclerotic calcification of the thoracic aorta. There is atherosclerotic calcification of the abdominal aorta. LYMPH NODES: Unremarkable. No enlarged lymph nodes. CT/CT Chest, Abd, Pelvis WO Cont IMPRESSION: 1. Small right pleural effusion. No other visible evidence for potential acute pathology. 2. Chronic pleural based nodule versus chronic rounded atelectasis in the left lower lobe, stable in appearance. No follow-up evaluation is necessary. 3. Mild emphysematous changes. Suggest annual low-dose low-dose CT scan of the chest for screening. 4. Multiple old healed rib fractures bilaterally. Multiple healing rib fractures on the right. No visualized acute fracture. 5. Atherosclerosis. 6. Status post aortoiliac endograft placement for treatment of an infrarenal abdominal aortic aneurysm, which currently measures 5.4 cm, but measured 4.9 cm in 2021.. Interval growth of the aneurysm suggests presence of an endoleak. Consider nonemergent surgical or endovascular referral. 7. Enlarged prostate. 8. Colonic diverticulosis without evidence for acute diverticulitis. Electronically Signed: Jamar Ramirez MD at 3:49 EDT ,
[2024-01-01 02:51] LABS: Anion Gap 8 (5-15); BUN 9 mg/dL (7-18); BUN/Creat Ratio 7.7 RATIO (10-20); Calcium,Total 8.6 mg/dL (8.5-10.1); Chloride 108 mmol/L (98-107); Creatinine, Serum 1.17 mg/dL (0.70-1.30); EST Glomerular Filtration Rate 64 mL/min (>60); Est Glom Filt Rate - Afr Amer 77 mL/min (>60); Estimated Creatinine Clearance 64.59 ml/min; Glucose 100 mg/dL (74-106); Potassium 3.7 mmol/L (3.5-5.1); Sodium Level 141 mmol/L (136-145); Troponin-I HS 11 pg/mL (3.0-78.0)
[2024-01-01] MEDS: 0.9% Normal Saline (1000mL) 1,000 ML 150 ML IV (03:07)
[2024-01-01] MEDS: Lidocaine 1% (20 ml mdv) 20 ML Vial 4 ML INFILT (03:08)
--- NOTE | 2024-01-01 03:14 | CT_ITS ---
EXAM: CT ANGIOGRAPHY NECK WITHOUT AND WITH INTRAVENOUS CONTRAST CLINICAL INDICATION: C4 FX C4 FX TECHNIQUE: Routine carotid CT angiography protocol was performed without and with intravenous contrast. NASCET criteria using the distal ICAs for comparison were used for evaluation of stenoses. This CT exam was performed using one or more of the following dose reduction techniques: automated exposure control, adjustment of the mA and/or kV according to patient size, and/or use of iterative reconstruction technique. MIP reconstructed images were created and reviewed. CONTRAST: IV 100mL [id number] RADIATION DOSE: CTDIvol = 26.34 mGy, DLP = 672.44 mGy-cm COMPARISON: CT scan cervical spine done today. FINDINGS: VASCULATURE: RIGHT COMMON CAROTID ARTERY: Unremarkable. No occlusion or significant stenosis. No dissection. RIGHT INTERNAL CAROTID ARTERY: There is mild calcification of the right carotid bulb, without significant narrowing. No dissection. RIGHT EXTERNAL CAROTID ARTERY: Unremarkable. No occlusion. RIGHT VERTEBRAL ARTERY: Unremarkable. No occlusion or significant stenosis. No dissection. LEFT COMMON CAROTID ARTERY: Unremarkable. No occlusion or significant stenosis. No dissection. LEFT INTERNAL CAROTID ARTERY: There is mild calcification of the left carotid bulb without significant narrowing. No dissection. LEFT EXTERNAL CAROTID ARTERY: Unremarkable. No occlusion. LEFT VERTEBRAL ARTERY: At the level of the fracture left C4 neural foramen, there is indentation of the medial aspect of the contrast column in the left vertebral artery, at the C4 level, with less than 50% luminal narrowing. At the C3-C2 levels, the indentation becomes a more discrete filling defect in the artery and its spirals in a clockwise fashion in the arterial lumen. Findings consistent with an arterial dissection. BRACHIOCEPHALIC AND SUBCLAVIAN ARTERIES: Unremarkable as visualized. No occlusion or significant stenosis. NECK: BONES/JOINTS: There is a fracture extending across the left C4 vertebral foramen as well as additional left-sided C4 fractures, which were discussed in CT scan cervical spine report. SOFT TISSUES: Unremarkable. LUNG APICES: There are small paraseptal emphysematous bullae in the visualized lung apices. CAROTID STENOSIS REFERENCE USING NASCET CRITERIA: % ICA stenosis = (1 - narrowest ICA diameter/diameter of distal cervical ICA) x 100. Mild - <50% stenosis. Moderate - 50-69% stenosis. Severe - 70-94% stenosis. Near occlusion - 95-99% stenosis. Occluded - 100% stenosis. 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 Dissection produces less than 50% narrowing of the true arterial lumen. N.B. : The above Results were Read Back by Jamar Ramirez MD to Brendon Zhu DO, and understanding confirmed on 01/01/2024 03:59:08 (ET). Electronically Signed: Jamar Ramirez MD at 4:04 EDT ,
[2024-01-01 04:05] VITALS: BP 122/71; PULSE 98; RESP 18; O2SAT 94
[2024-01-01 05:20] VITALS: BP 122/71; PULSE 98; RESP 18; TEMP 36.6; O2SAT 94
== END 2024-01-01 05:21 | disposition other institution (70) ==
PROVIDERS: Emergency Provider Emergency Medicine; PCP Family Medicine; Visit Provider Emergency Medicine
DX: S12.300A Unspecified displaced fracture of fourth cervical vertebra, initial encounter for closed fracture (principal); S09.90XA Unspecified injury of head, initial encounter; S61.411A Laceration without foreign body of right hand, initial encounter; S40.012A Contusion of left shoulder, initial encounter; W19.XXXA Unspecified fall, initial encounter
CPT/HCPCS: 12001; 70450; 70498; 71250; 72125; 73030; 73130; 74176; 80048; 82077; 84484; 85025; 93005; 99285; J7030; Q9967; A4216

== ENCOUNTER 2025-03-09 21:18 | Emergency (ER) | payer MEDICARE, SELFPAY ==
[2025-03-09 21:20] VITALS: BP 150/84; PULSE 105; RESP 20; TEMP 36.2; O2SAT 97; BMI 31.4
[2025-03-09 22:07] LABS: Mucous, Urine 0 SEEN /hpf (<or=2+)
[2025-03-09 22:21] LABS: Color, Urine Yellow (Yellow); Glucose, Dipstick Normal (Normal); Ketone-Dipstick Negative (Negative); Leukocyte Esterase-Dipstick Negative /ul (Negative); Nitrite-Dipstick Negative (Negative); Occult Blood-Urine 10 /ul (Negative); Protein-Dipstick 15 mg/dl (Negative); Specific Gravity, Urine 1.010 (1.002-1.030); Urine Bilirubin Dipstick Negative (Negative)
--- NOTE | 2025-03-09 22:36 | CT_ITS ---
PROCEDURE: ABDOMEN/PELVIS WITHOUT CONT 03/09/2025 REASON FOR EXAM: URINARY RETENTION TECHNIQUE: Procedure Code: CTABDPEL Modality: CT Procedure: ABDOMEN/PELVIS WITHOUT CONT Noncontrast technique limits evaluation of the abdominal and pelvic viscera. Coronal and Sagittal reconstruction series were provided. One or more dose reduction techniques were used (e.g., Automated exposure control, adjustment of the mA and/or kV according to patient size, use of iterative reconstruction technique). COMPARISON: 01/01/2024. FINDINGS: Lack of IV and oral contrast limits evaluation. Densities in the posterior medial aspects of the bilateral lower lobes of the lungs are concerning for consolidated airspace infiltrates, similar to the previous study. Probable small right pleural effusion, unchanged.. Bilateral renal cysts, unchanged. No urinary stone or obstructive uropathy. Extensive endovascular stenting within the abdominal aorta and bilateral common iliac arteries, extending through a 5.2 cm fusiform infrarenal abdominal aortic aneurysm, with fusiform dilatation of the bilateral common iliac arteries, unchanged. 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 Mild atherosclerotic calcifications, unchanged. No evidence of a bowel obstruction. A few sigmoid diverticula are noted, without inflammatory changes. The appendix is visualized and normal-appearing. Prominent prostate gland, measuring 5.4 x 5.6 by 5.5 cm, unchanged from the previous study. No intraperitoneal free air or free fluid. [id number] thoracolumbar spondylosis, unchanged. Multiple right-sided rib fractures are noted, all of which are nonacute and not significantly changed from the previous study. A single ununited fracture of what is believed to be the right 10th rib is unchanged from the previous study. CT/Abdomen/Pelvis without Cont IMPRESSION: 1. Bibasilar pulmonary densities concerning for airspace infiltrates, similar to the previous study. Probable small right pleural effusion, unchanged. 2. Extensive endovascular stenting of the abdominal aorta and bilateral common iliac arteries. 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 3. Stable prominent prostate gland. 4. Nonacute right-sided rib fractures. Reading Location: [id number]
[2025-03-09 22:38] LABS: Red Blood Cells-Urine 0-5 SEEN /hpf (0-5)
[2025-03-09 22:39] LABS: Squamous Epithelial Cells - UA 0-5 SEEN /hpf (0-5)
--- NOTE | 2025-03-09 22:41 | EX.ED.DYSGE1 ---
HPI History of Present Illness Chief Complaint: Complaint Narrative Narrative: Chief complaint and HPI: 79-year-old male with past medical history of BPH, skin cancer presents for evaluation of urinary retention. Patient states since yesterday evening he has been having difficulty urinating. Does not feel that he is completely voiding. States he has been having some suprapubic abdominal pain secondary to it. Has been taking his Flomax. Does not follow with urology. Denies any fever, chills, shortness of breath, chest pain, nausea, vomiting, back pain. No history of kidney stones. Denies any blood in his urine. Review of systems: See HPI Medications: As listed on the chart Allergies: As listed on the chart PFSH: Per chart Vital signs: As listed on the chart. Reviewed. Physical exam: Gen: A&O x3, NAD Head: Normocephalic, atraumatic Eyes: No sclera icterus, conjunctiva clear ENT: Moist mucous membranes CV: RRR, no murmurs Resp: Lungs CTA BL, no w/r/c GI: Abd soft, non-distended, mild tenderness to palpation suprapubically, no r/r/g : No CVA tenderness. Circumcised penis. No penile tenderness or discharge. No penile or testicular swelling. Normal lie and position of the testicles. No testicular tenderness, masses, or skin changes. Cremasteric reflexes intact and equal bilaterally. No rashes. No palpable hernias. Musc: Moves all extremities Skin: Warm, dry Neuro: Alert, oriented, grossly intact, sensation intact Psych: Cooperative, appropriate mood and affect [facility] Medical History AAA (abdominal aortic aneurysm) AAA (abdominal aortic aneurysm) Abdominal aortic aneurysm (AAA) Actinic keratosis Actinic keratosis ACTINIC LESION WITH SEVERE ATYPIA Actinic skin damage ATYPICAL SQUAMOUS EPITHELIAL LESION WITH SOLAR KERATOSIS ATYPICAL SQUAMOUS LESION LEFT PREAURICULAR AREA Basal cell carcinoma Basal cell carcinoma of right postauricular region Carpal tunnel syndrome Cataract Cutaneous horn Former smoker GERD (gastroesophageal reflux disease) Hyperlipidemia Hypertension INFLAMED ACTINIC KERATOSIS INFLAMED ACTINIC KERATOSIS RIGHT VOLAR FOREARM Neoplasm of skin of ear Neoplasm of skin of forearm Neoplasm of skin of hand Neoplasm of skin of left cheek Neoplasm of skin of left lateral forehead Neoplasm of skin of neck Neoplasm of skin of nose Neoplasm of skin of evangelical region Neoplasm of skin of upper arm Neoplasm of skin of wrist Nodule of right lung Other seborrheic keratosis Personal history of skin cancer Prostate enlargement Pulmonary emphysema SCATTERED ACTINIC DAMAGE ON FACE AND UPPER EXTREMITIES Seborrheic keratosis Situational depression Solar keratosis 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 Squamous cell carcinoma Squamous cell carcinoma in situ Squamous cell carcinoma in situ Squamous cell carcinoma in situ Squamous cell carcinoma in situ of skin of left ear Squamous cell carcinoma of dorsum of right hand Squamous cell carcinoma of skin of left cheek Venous insufficiency of both lower extremities Home Medications ?Medication ?Instructions ?Recorded ?Last Taken ?Type finasteride 5 mg tablet 5 mg PO DAILY Prostate 11/18/13 05/22/18 History 5 mg omeprazole 20 mg capsule,delayed 20 mg PO DAILY GERD 11/18/13 07/30/19 History release tamsulosin 0.4 mg capsule 0.4 mg PO DAILY URINE FLOW 11/18/13 05/22/18 History fluoxetine 20 mg capsule 20 mg PO DAILY DEPRESSION 12/27/16 05/22/18 History 20 mg brimonidine 0.2 % eye drops 1 drp ophthalmic (eye) BID glacoma 08/05/17 05/22/18 History 1 drp timolol maleate 0.5 % eye drops 1 drp ophthalmic (eye) BID glacoma 08/05/17 05/22/18 History (Timoptic) 1 drp carvedilol 3.125 mg tablet 3.125 mg PO BID #60 tabs 09/10/17 05/22/18 Rx amlodipine 10 mg tablet 2.5 mg PO DAILY 04/21/18 07/30/19 History apixaban 5 mg tablet (Eliquis) 5 mg PO BID 07/15/21 Unknown History aspirin 81 mg tablet,delayed 81 mg PO QHS 03/26/22 Unknown History release gabapentin 100 mg capsule 100 mg PO TID 03/26/22 Unknown History imiquimod 5 % topical cream packet 4 mm topical 5XW 6 weeks #30 ea 07/03/23 Unknown Rx Allergy/AdvReac Type Severity Reaction Status Date / Time adhesive AdvReac Itching Verified 03/09/25 21:19 atorvastatin (From Lipitor) AdvReac Other Verified 03/09/25 21:19 rosuvastatin calcium (From AdvReac ACHING Verified 03/09/25 21:19 Crestor) Family History Sister Diabetes Surgical History EXCISION ATYPICAL SQUAMOUS LESION EXCISION LESIONS AND SKIN CANCERS EXCISION OF SKIN CANCER FACE AND HANDS H/O knee surgery History of basal cell carcinoma excision History of carpal tunnel surgery History of cholecystectomy History of squamous cell carcinoma excision History of squamous cell carcinoma excision Hx of cataract surgery INTRADERMAL EXCISION LESIONS S/P AAA repair Social History housing: house Smoking Status: Former smoker second hand exposure: No quit status: has quit before alcohol intake: current details: [employer] SOCIAL substance use type: does not use what type of physical activity do you participate in: other seatbelt use: always do you feel safe at home: Yes additional social history: SUN EXPOSURE: FREQUENTLY EXAM Physical Exam Const Vital Signs: 03/09/25 21:20 03/09/25 23:19 03/10/25 01:00 Temperature 97.2 F L Temperature Source Temporal Pulse Rate 105 H 84 74 Respiratory Rate 20 H 18 18 Blood Pressure 150/84 H 165/80 H 160/79 H Blood Pressure Mean 106 108 106 Pulse Ox 97 98 97 Oxygen Delivery Method Room Air Room Air Room Air 03/10/25 01:12 Temperature 97.2 F L Temperature Source Pulse Rate 74 Respiratory Rate 18 Blood Pressure 160/79 H Blood Pressure Mean 106 Pulse Ox 97 Oxygen Delivery Method MDM MDM MDM Narrative Medical decision making narrative: 79-year-old male with past medical history of BPH, skin cancer presents for evaluation of urinary retention. Patient states since yesterday evening he has been having difficulty urinating. Does not feel that he is completely voiding. States he has been having some suprapubic abdominal pain secondary to it. Differential diagnosis includes but is not limited to urinary retention, hematuria, CAROL, electrolyte abnormality, UTI, urolithiasis. UA was obtained in triage, I agree with the UA that was obtained. Positive for blood. Negative for UTI. Patient will be bladder scanned for possible Schreiber placement. Laboratory workup ordered including CT abdomen pelvis without contrast. Bladder scan shows retention. Schreiber catheter will be placed. Patient had good urine output once Schreiber catheter was placed. A suprapubic abdominal pain resolved. It is mostly clear with small amounts of blood. CBC without leukocytosis. Patient has baseline anemia. BMP unremarkable. CT abdomen pelvis shows bibasilar pulmonary densities concerning for airspace infiltrates, similar to previous study. Probable small right pleural effusion, unchanged. Extensive endovascular stenting of the abdominal aorta and bilateral common iliac arteries. 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 Patient states he follows regularly with a physician for this. Stable prominent prostate gland. Nonacute right sided rib fractures. No urolithiasis. Patient's urinary retention is likely secondary to BPH. He will discharge home with Schreiber. Follow-up with urology. He was educated to return back to the ED if symptoms change or worsen or if Schreiber catheter stops draining. He confirmed understand the plan. Patient able to discharge home. Impression: 1. Urinary retention status post Schreiber placement 2. BPH with history of BPH Lab Data Labs: Laboratory Results - last 24 hr 03/09/25 03/09/25 22:00 22:52 WBC 8.9 RBC 5.02 Hgb 12.7 L Hct 41.4 MCV 82.5 MCH 25.3 L MCHC 30.7 L RDW Std Deviation 45.1 H RDW Coeff of Endy 15.0 H Plt Count 279 MPV 8.8 Immature Gran % (Auto) 0.300 Neut % (Auto) 76.1 H Lymph % (Auto) 16.1 L [place] % (Auto) 6.7 Eos % (Auto) 0.6 Baso % (Auto) 0.2 Absolute Neuts (auto) 6.8 Absolute Lymphs (auto) 1.43 Nucleated RBC % 0 Sodium 139 Potassium 4.3 Chloride 102 Carbon Dioxide 25.0 Anion Gap 12 BUN 10 Creatinine 0.89 Estim Creat Clear Calc 86.69 Est GFR (MDRD) Non-Af 87 BUN/Creatinine Ratio 11.7 Glucose 87 Calcium 8.9 Urine Color Yellow Urine Clarity Clear Urine pH 7.0 Ur Specific Hubbell 1.010 Urine Protein 15 H Urine Glucose (UA) Normal Urine Ketones Negative Urine Occult Blood 10 H Urine Nitrite Negative Urine Bilirubin Negative Urine Urobilinogen Normal Ur Leukocyte Esterase Negative Urine RBC 0-5 SEEN Urine WBC 0-5 SEEN Ur Squamous Epith Cells 0-5 SEEN Urine Bacteria RARE Hyaline Casts 0-5 SEEN Urine Mucus 0 SEEN Radiography Diagnostic Testing: Clinical Impression(s) from Imaging Studies Abdomen/Pelvis CT 03/09/25 22:36 IMPRESSION: 1. Bibasilar pulmonary densities concerning for airspace infiltrates, similar to the previous study. Probable small right pleural effusion, unchanged. 2. Extensive endovascular stenting of the abdominal aorta and bilateral common iliac arteries. 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 3. Stable prominent prostate gland. 4. Nonacute right-sided rib fractures. Reading Location: [facility] Discharge Plan Triage Chief Complaint: Complaint ED Provider: Pramod Murguia Dx/Rx/DC Orders Clinical Impression: Acute urinary retention, BPH with urinary obstruction Instructions: Benign Prostatic Hyperplasia, ED Urinary Retention, Male Prescriptions: No Action brimonidine 0.2 % drops 1 drp OPHTHALMIC BID timolol maleate [Timoptic] 0.5 % drops 1 drp OPHTHALMIC BID imiquimod 5 % cream in packet 4 mm topical 5XW 42 Days Qty: 30 2RF Rx Instructions: apply once daily Friday through Friday before bedtime weekends off for 6 weeks tamsulosin 0.4 MG capsule 0.4 mg PO DAILY omeprazole 20 MG capsule 20 mg PO DAILY finasteride 5 MG tablet 5 mg PO DAILY fluoxetine 20 MG capsule 20 mg PO DAILY carvedilol 3.125 MG tablet 3.125 mg PO BID Qty: 60 0RF amlodipine 10 MG tablet 2.5 mg PO DAILY Eliquis 5 mg tablet 5 mg PO BID Patient Comments: TAKE 1 TABLET BY MOUTH TWICE A DAY aspirin [Aspir-81] 81 mg Tablet,Delayed Release (Dr/Ec) 81 mg PO QHS gabapentin 100 mg capsule 100 mg PO TID Patient Comments: TAKE 1 CAPSULE BY MOUTH THREE TIMES DAILY FOR 30 DAYS. Primary Care Provider: Igor Ge Referrals: Igor Ge MD [Primary Care Provider, Family Practice] - 3-5 Days Ronak Owens MD [Med Staff - Active Staff, Urology] - 3-5 Days Activity Restrictions/Additional Instructions: monitor Schreiber output. If Schreiber catheter stops draining you need to be seen in the emergency department. Follow-up with your primary care physician and urologist. Return back to the ED if symptoms change or worsen. Print Language: Italian Disposition Disposition: Home, Self Care
[2025-03-09 23:08] LABS: Hematocrit 41.4 % (40-54); Hemoglobin 12.7 g/dL (13.0-16.5); Immature Granulocytes Count 0.030 X10^3/uL (0.0-0.0); Mean Corp Hgb Conc 30.7 g/dL (32-36); Mean Corpuscular Volume 82.5 fL (80-94); Mean Platelet Vol. 8.8 fl (6.2-12.0); NRBC Flagged by Analyzer 0 % (0-5); Platelet Count 279 K/mm3 (150-450); RBC Distribution Width CV 15.0 % (11.6-14.6); RBC Distribution Width SD 45.1 fl (35.1-43.9); Red Blood Count 5.02 M/mm3 (4.6-6.2); White Blood Count 8.9 K/mm3 (4.4-11.0)
[2025-03-09 23:19] VITALS: BP 165/80; PULSE 84; RESP 18; O2SAT 98
[2025-03-10 00:27] LABS: Anion Gap 12 (5-15); BUN 10 mg/dL (4-19); BUN/Creat Ratio 11.7 RATIO (10-20); Calcium,Total 8.9 mg/dL (7.6-11.0); Carbon Dioxide 25.0 mmol/L (21.0-32.0); Chloride 102 mmol/L (98-108); Estimated Creatinine Clearance 86.69 ml/min (50-250); Glucose 87 mg/dL (70-99); Potassium 4.3 mmol/L (3.3-5.1)
[2025-03-10 01:00] VITALS: BP 160/79; PULSE 74; RESP 18; O2SAT 97
[2025-03-10 01:12] VITALS: BP 160/79; PULSE 74; RESP 18; TEMP 36.2; O2SAT 97
== END 2025-03-10 01:23 | disposition home or self-care (01) ==
PROVIDERS: Emergency Provider Surgery; PCP Family Medicine; Visit Provider Surgery
DX: N40.1 Benign prostatic hyperplasia with lower urinary tract symptoms (principal); R33.8 Other retention of urine; N13.8 Other obstructive and reflux uropathy; I10 Essential (primary) hypertension; I72.3 Aneurysm of iliac artery; I71.43 Infrarenal abdominal aortic aneurysm, without rupture; D64.9 Anemia, unspecified; K21.9 Gastro-esophageal reflux disease without esophagitis; F32.A Depression, unspecified; E78.5 Hyperlipidemia, unspecified; Z79.01 Long term (current) use of anticoagulants; Z79.82 Long term (current) use of aspirin; Z85.828 Personal history of other malignant neoplasm of skin; Z79.899 Other long term (current) drug therapy; Z87.891 Personal history of nicotine dependence
CPT/HCPCS: 51702; 74176; 80048; 81001; 85025; 99284; A4216

== ENCOUNTER 2025-05-06 13:53 | Emergency (ER) | payer MEDICARE, SELFPAY ==
[2025-05-06 13:53] VITALS: BP 150/94; PULSE 85; RESP 16; TEMP 35.7; O2SAT 100
[2025-05-06 14:29] VITALS: BMI 31.8
--- NOTE | 2025-05-06 15:13 | CT_ITS ---
PROCEDURE: SOFT TISSUE NECK WITH CONTRAST 05/06/2025 REASON FOR EXAM: RULE OUT MASS. PCP DR. ELDRIDGE TECHNIQUE: Procedure Code: CTNEW Modality: CT Procedure: SOFT TISSUE NECK WITH CONTRAST CONTRAST: Isovue 370 VOLUME: 75 mL One or more dose reduction techniques were used (e.g., Automated exposure control, adjustment of the mA and/or kV according to patient size, use of iterative reconstruction technique). RADIATION DOSE SUMMARY: CTDlvol: 18.05 mGy DLP: 653.82 mGycm COMPARISON: None. FINDINGS: Airway: Patent Salivary glands: Unremarkable. Lymph nodes: No lymphadenopathy. Thyroid: Unremarkable. Vasculature: Patent. Orbits: Unremarkable. Paranasal sinuses and mastoids: Clear. Lung apices: Clear. Upper mediastinum: Unremarkable. Bones: Status post laminectomies and posterior fusion C3, C4, C5 and C6. CT/Soft Tissue Neck WITH Contrast IMPRESSION: A 1.4 x 1 cm left facial subcutaneous cystic lesion without surrounding fatty i nfiltration. This is nonspecific and the differential diagnosis may include but not exclusive to dermoid cysts, sebaceou s cyst or malignant lymph node. Excisional biopsy is recommended. Otherwise, no suspicious neck abnormalities or lymphadenopathy. Reading Location: [facility]
[2025-05-06 15:23] LABS: Hematocrit 40.6 % (40-54); Hemoglobin 12.3 g/dL (13.0-16.5); Immature Granulocytes Count 0.020 X10^3/uL (0.0-0.0); Mean Corp Hgb Conc 30.3 g/dL (32-36); Mean Corpuscular Volume 85.8 fL (80-94); Mean Platelet Vol. 8.8 fl (6.2-12.0); NRBC Flagged by Analyzer 0 % (0-5); Platelet Count 276 K/mm3 (150-450); RBC Distribution Width CV 14.4 % (11.6-14.6); RBC Distribution Width SD 45.1 fl (35.1-43.9); Red Blood Count 4.73 M/mm3 (4.6-6.2); White Blood Count 7.0 K/mm3 (4.4-11.0)
--- OUTSIDE RECORDS SUMMARY | 2025-05-06 15:32 | XMS RPT_ITS | CCD ---
Author Organization [facility] CliniSyar Care Team Providers Care Cras Name Role Phone Mary Ann Dudley MD Unavailable REFERRING, PHY WO [phone] Unavailable Unava ilable AMRIK HU Unavailable Unavailable AMRIK HU Unavailable Unavailable HUBER HAWLEY Unavailable Unavailable Kanchan Ge MD Primary Care Provider Dr. Igor Ge Primary Care Provider [phone] Dr. Igor Ge Referring Provider Dr. Mary Ann Dudley Attending Provider Dr. Henry Berg Attending Provider Kanchan Ge MD Primary Care Provider Kanchan Ge MD Primary Care Provider Dr. Igor Ge Primary Care Provider Dr. Igor Ge Referring Provider Dr. Mary Ann Dudley Attending Provider Kanchan Ge MD Primary Care Provider Dr. Igor Ge Primary Care Provider Dr. Igor Ge Referring Provider Dr. Mary Ann Dudley Attending Provider Dr. Henry Berg Attending Provider Dr. Igor Ge Primary Care Provider Dr. Henry Berg Referring Provider Dr. Igor Ge Referring Provider Dr. Mary Ann Dudley Attending Provider Dr. Igor Ge Primary Care Provider Dr. Henry Berg Attending Provider Kanchan Ge MD Primary Care Provider PROVIDER, UNKNOWN Attending Unavailable PROVIDER, UNKNOWN Admitting Unavailable Kailyn Arias MA Unavailable Susana Perez RN Unavailable GRACE MEDEL Admitting Unavailable GRACE MEDEL Attending Unavailable GRACE MEDEL Primary Care Unavailable CEBUL, ALVIN III Consulting Unavailable PROVIDER, UNKNOWN Consulting Unavailable NICOLE MANNING MD Admitting Unavailable NICOLE MANNING MD Attending Unavailable NICOLE MANNING MD Primary Care Unavailable CEBUL, ALVIN III Consulting Unavailable PROVIDER, UNKNOWN Consulting Unavailable Kailyn Arias MA Unavailable Susana Perez RN Unavailable Podlogar NURSING INFORMATICS SPECIALIST.Anne CAROLINA Unavailable [place] NURSING INFORMATICS SPECIALIST.Erlinda CAROLINA Unavailable MANDO LING Attending Unavailable KANCHAN GE Primary Care Unavailab le CHENTE, KANCHAN Loredo Primary Care Unavailab le MURIAA, FARID SUSIE Admitting Unavailabl e KANCHAN JAIME (RES) Attending Unavail able ROOSEVELT GARRISON Consulting Unavai MANDO Hooker Attending Unavailable MANDO LING Referring Unavailable KANCHAN GE Primary Care Unavailab MANDO Tovar Referring Unavailable KANCHAN GE Primary Care Unavailab MANDO Tovar Attending Unavailable KANCHAN GE Primary Care Unavailab MANDO Tovar Attending Unavailable KANCHAN GE Primary Care Unavailab MANDO Tovar Attending Unavailable SD GEER Facundo Primary Care Unavailab le CHENTE, CHRISTOPHER B Primary Care Unavailab le [place] NURSING INFORMATICS SPECIALIST.Erlinda CAROLINA Unavailable Chente GIFFORD, Dr. Costa Primary Care Physicia n Dr. Pramod Murguia DO Emergency Departmen t Physician KANCHAN GE Referring Unavailab KANCHAN Rausch Primary Care Unavailab KANCHAN Rausch Attending Unavailab KANCHAN Rausch Primary Care Unavailab KANCHAN Rausch Referring Unavailab KANCHAN Rausch Primary Care Unavailab KANCHAN Rausch Referring Unavailab KANCHAN Rausch Primary Care Unavailab KANCHAN Rausch Attending Unavailab KANCHAN Rausch Primary Care Unavailab KANCHAN Rausch Primary Care Unavailab jessica BRMANDO THOMAS Referring Unavailable KANCHAN GE Primary Care Unavailab jessica BRMANDO THOMAS Referring Unavailable KANCHAN GE Primary Care Unavailab KANCHAN Rausch Referring Unavailab KANCHAN Rausch Primary Care Unavailab MANDO Tovar Referring Unavailable KANCHAN GE Primary Care Unavailab le KANCHAN GE Referring Unavailab le KANCHAN GE Attending Unavailab KANCHAN Rausch Primary Care Unavailab KANCHAN Rausch Primary Care Unavailab le PODLOGANNE LEACH Referring Unavailable KANCHAN GE Primary Care Unavailab le PODLOGARANNE Attending Unavailable Igor Ge Primary Care Unavailable Pramod Murguia Attending Unavailabl e Allergies Allergy Classification Reported Allergen(s) Allergy Type Date of Onset Reaction(s) Facility (2 sources) ADHESIVE PAPER drug allergy [facility] Work Phone: (20 sources) atorvastatin; Translations: [ATORVASTATIN CALCIUM] Drug Allergy 5 Intolerance [facility] (8 sources) HMG-CoA reductase inhibitor; Translations: [[id number] REDUCTASE INHIBITORS] Drug Intolerance 8 Myalgia [facility] (20 sources) rosuvastatin; Translations: [ROSUVASTATIN CALCIUM] Drug Allergy 7 Intolerance [facility] (20 sources) medical tape [Other] Propensity to adverse reactions 5 Itching [facility] Work Phone: (7 sources) Adhesive agent; Translations: [adhesive] Propensity to adverse reactions 2 Itching [facility] (6 sources) atorvastatin Drug Allergy 2 Other [facility] (20 sources) HMG-CoA reductase inhibitor Drug Intolerance 8 Myalgia [facility] (1 source) atorvastatin Drug Allergy 5 [facility] (1 source) rosuvastatin Drug Allergy 5 [facility] Medications Current Medications Medication Drug Class(es) Dates Sig (Normalized) Sig (Original) acetaminophen 325 mg oral tablet (20 sources) Start: 07-18-2021 take 3 tablets by mouth every six hours as needed acetaminophen (TYLENOL) 325 mg tablet Take 3 tablets by mouth every 6 hours as needed for pain. 07/18/2021 Active Comment on above: Take 3 tablets by mo ut every 6 hours as needed for pain. aspirin 81 mg delayed release oral tablet (20 sources) Nonsteroidal Anti-inflammatory Drug Start: 03-26-2022 take 1 tablet by mouth at bedtime Start: 04-13-2014 End: 04-28-2018 take 1 tablet by mouth once daily Aspirin 81 MG tablet Discontinued 81 mg PO DAILY December 27, 2016 12:00am April 28, 2018 12:16pm anticoagulation Start: 11-18-2013 End: 04-04-2015 take 1 tablet by mouth once daily Aspirin 81 MG Tab.Chew Discontinued 81 mg PO DAILY November 18, 2013 12:00am April 04, 2015 1:01pm ASPIRIN 81 MG TA ASPIRIN [id number] Mario Wilde DO Comment on above: Take 1 tablet by shelly th once daily. carvedilol 3.125 mg oral tablet (20 sources) alpha-Adrenergic Junito, beta-Adrenergic Junito Start: 8 End: 3 take 1 tablet by mouth twice daily Comment on above: Take 1 tablet by shelly th twice daily. TAKE 1 TABLET BY SHELLY TH TWICE A DAY cephalexin 500 mg oral capsule (10 sources) Cephalosporin Antibacterial Start: 4 End: 4 take 1 capsule by mouth twice daily cephALEXin (KEFLEX) 500 mg capsule Take 1 capsule by mouth two times a day for 7 days. 14 capsule 03/16/2024 03/23/2024 Active Start: 11-27-2012 End: 12-08-2012 KEFLEX KEFLEX Joaquina Jones OZ Start: 11-27-2012 KEFLEX KEFLEX Mary Ann Dudley MD Start: 11-19-2012 End: 12-08-2012 take 1 tablet by mouth three times daily KEFLEX 500 MG CAPS One tablet by mouth three times daily CEPHALEXIN [id number] Mary Ann Dudley MD dexamethasone 1 mg/ml / neomycin 3.5 mg/ml / polymyxin b 50528 unt/ml ophthalmic suspension (20 sources) Aminoglycoside Antibacterial, Polymyxin-class Antibacterial, Corticosteroid take 1 drop(s) into the eye(s) four times daily [id number]-[id number]-[id number] 3.5 MG/ML-10,000 UNIT/ML-0.1% EYE DROPS Use 1 Drop in both eyes four times daily. Active 1 ml evolocumab 140 mg/ml auto-injector (20 sources) PCSK9 Inhibitor Star t: 07-03 End: 04-03 inject 140 mg by subcutaneous injection every other week evolocumab (REPATHA SURECLICK) 140 mg/mL pen injector Indications: Hyperlipidemia with target LDL less than 100 Inject 140 mg subcutaneously every 2 weeks. 6 mL 1 10/27/2024 04/25/2025 Active Comment on above: Inject 140 mg subcut aneously every 2 weeks. finasteride 5 mg oral tablet (20 sources) 5-alpha Reductase Inhibitor Star t: 09-19 End: 08-19 26 take 1 tablet by mouth once daily finasteride (PROSCAR) 5 mg tablet Take 1 tablet by mouth once daily. 90 tablet 1 02/03/2025 08/02/2025 Active Start: 11-18-2013 End: 09-21-2024 take 1 tablet by mouth once daily finasteride (PROSCAR) 5 mg tablet Take 1 tablet by mouth once daily. 90 tablet 1 03/25/2024 09/21/2024 Active Comment on above: Take 1 tablet by shelly once daily. FLUoxetine 20 mg oral capsule (20 sources) Serotonin Reuptake Inhibitor Start: 12-28-19 End: 04-10-20 take 1 capsule by mouth once daily Comment on above: Take 1 capsule by mo [facility] once daily. fluticasone propionate 0.05 mg/actuat metered dose nasal spray (20 sources) Corticosteroid Start: 04-23-20 take 2 spray(s) by mouth once daily fluticasone (FLONASE) 50 mcg/actuation nasal spray Indications: Non-seasonal allergic rhinitis, unspecified trigger Use 2 Sprays in each nostril once daily. Rinse mouth after use. 1 Each 2 04/23/2021 Active Comment on above: Use 2 Sprays in each nostril once daily. Rinse mouth after use. gabapentin 300 mg oral capsule (20 sources) Anti-epileptic Agent Start: 01-09-20 End: 02-08-20 take 1 capsule by mouth three times daily gabapentin (NEURONTIN) 300 mg capsule Take 1 capsule by mouth three times a day for 30 days. 01/09/2024 Active Start: 03-19-2022 End: 02-29-2024 take 1 capsule by mouth three times daily Comment on above: Take 1 capsule by [facility] three times daily for 30 days. Take 1 capsule by [facility] three times daily for 90 days. imiquimod 50 mg/ml topical c ream (20 sources) Start: 07-03-2023 Start: 09-10-2022 End: 10-22-2022 Imiquimod 5 % cream in packe t Discontinued 1 NMA TOPICAL 5 times per week 30 42 0 September 10, 2022 1:50pm October 21, 2022 12:00am October 22, 2022 12:04am 30 packets. Apply daily at night 5 days per week for 6 weeks. Start: 06-20-2022 End: 08-01-2022 Imiquimod 5 % cream in packe t Discontinued 1 NMA TOPICAL 5 times per week 30 42 0 June 20, 2022 1:00am July 31, 2022 1:00am August 01, 2022 1:04am 30 packets. Apply daily at night 5 days per week for 6 weeks. Start: 02-21-2022 End: 04-04-2022 Imiquimod 5 % cream in packe t Discontinued 1 NMA TOPICAL 5 times per week 30 42 0 February 21, 2022 12:00am April 03, 2022 12:00am April 04, 2022 12:13am Start: 08-18-2021 End: 09-29-2021 Imiquimod 5 % cream in packe t Discontinued 1 NMA TOPICAL 5 times per week 30 42 0 August 18, 2021 4:14pm September 28, 2021 12:00am September 29, 2021 12:05am skin CA apply the imiquimod daily at night 5 days per week for 6 weeks. Start: 05-20-2021 End: 07-01-2021 Imiquimod 5 % cream in packe t Discontinued 4 mmol TOPICAL 5 times per week 30 42 0 May 20, 2021 1:00am June 30, 2021 1:00am July 01, 2021 1:03am apply once daily Friday through Friday before bedtime, weekends off, for 6 weeks Start: 06-18-2017 End: 05-17-2021 Imiquimod 1 EACH cream in pa cket Discontinued 1 NMA TOPICAL 5 times per week September 09, 2017 5:30am May 13, 2018 11:19am skin CA apply the imiquimod daily at night 5 days per week for 6 weeks. Start: 12-11-2016 ALDARA 5 % CRE A apply daily at night 5 days per week for 6 weeks IMIQUIMOD [id number] Mary Ann Dudley MD Start: 03-27-2016 ALDARA 5 % CRE A apply daily at night 5 days per week for 6 weeks IMIQUIMOD [id number] Mary Ann Dudley MD Start: 01-24-2016 ALDARA 5 % CRE A apply daily at night 5 days per week for 6 weeks IMIQUIMOD [id number] Mary Ann Dudley MD Start: 01-24-2016 End: 04-08-2016 ALDARA 5 % CREA apply daily at night 5 days per week for 6 weeks IMIQUIMOD [id number] Debbie Ratliff LPN Start: 08-25-2015 ALDARA 5 % CRE A apply daily at night 5 days per week for 6 weeks IMIQUIMOD [id number] Mary Ann Dudley MD Start: 08-25-2015 End: 01-24-2016 ALDARA 5 % CREA apply daily at night 5 days per week for 6 weeks IMIQUIMOD [id number] Debbie Ratliff LPN Start: 03-27-2015 End: 04-04-2015 Imiquimod (Aldara) 1 EACH Cr eam.Pack Discontinued 1 NMA TP DAILY March 27, 2015 12:00am April 04, 2015 1:01pm Start: 02-22-2015 End: 04-10-2015 ALDARA 5 % CREA apply daily at night 5 days per week for 6 weeks IMIQUIMOD [id number] Janee Tavarez LPN Start: 02-22-2015 ALDARA 5 % CRE A apply daily at night 5 days per week for 6 weeks IMIQUIMOD [id number] Mary Ann Dudley MD Start: 06-07-2014 End: 02-22-2015 ALDARA 5 % CREA apply daily at night 5 days per week for 6 weeks IMIQUIMOD [id number] Debbie Ratliff LPN Start: 06-07-2014 ALDARA 5 % CRE A apply daily at night 5 days per week for 6 weeks IMIQUIMOD [id number] Mary Ann Dudley MD Start: 03-01-2014 ALDARA 5 % CRE A apply daily at night 5 days per week for 6 weeks IMIQUIMOD [id number] Mary Ann Dudley MD Start: 03-01-2014 End: 08-01-2014 ALDARA 5 % CREA apply daily at night 5 days per week for 6 weeks IMIQUIMOD [id number] Debbie Ratliff LPN Start: 12-21-2013 End: 04-26-2014 ALDARA 5 % CREA apply daily at night 5 days per week for 6 weeks IMIQUIMOD [id number] Debbie Ratliff LPN Start: 12-21-2013 ALDARA 5 % CRE A apply daily at night 5 days per week for 6 weeks IMIQUIMOD [id number] Mary Ann Dudley MD Start: 04-27-2013 ALDARA 5 % CRE A apply daily at night 5 days per week for 6 weeks IMIQUIMOD [id number] Mary Ann Dudley MD Start: 04-27-2013 End: 10-26-2013 ALDARA 5 % CREA apply daily at night 5 days per week for 6 weeks IMIQUIMOD [id number] Debbie Ratliff LPN Start: 02-23-2013 ALDARA 5 % CRE A apply daily at night 5 days per week for 6 weeks IMIQUIMOD [id number] Mary Ann Dudley MD Start: 02-23-2013 End: 10-26-2013 ALDARA 5 % CREA apply daily at night 5 days per week for 6 weeks IMIQUIMOD [id number] Debbie Ratliff LPN Start: 12-23-2012 ALDARA 5 % CRE A apply daily 5 days per week for 6 weeks IMIQUIMOD [id number] Mary Ann Dudley MD Start: 12-23-2012 End: 04-27-2013 ALDARA 5 % CREA apply daily 5 days per week for 6 weeks IMIQUIMOD [id number] Debbie Ratliff LPN Start: 06-16-2012 ALDARA 5 % CRE A apply nightly 5 days per week for 6 weeks IMIQUIMOD [id number] Mary Ann Dudley MD Start: 06-16-2012 End: 11-30-2012 ALDARA 5 % CREA apply nightl y 5 days per week for 6 weeks IMIQUIMOD [id number] Debbie Ratliff LPN melatonin 3 mg oral tablet (20 sources) Start: 01-09-2024 take 3 tablets by mouth once daily at bedtime melatonin 3 mg tablet Take 3 tablets by mouth daily at bedtime. 01/09/2024 Active mupirocin 20 mg/ml topical cream (2 sources) RNA Synthetase Inhibitor Antibacterial Start: 12-02-2023 End: 12-12-2023 mupirocin (BACTROBAN) 2 % cream Apply 1 application to affected area three times a day for 10 days. Location: Right elbow 30 g 0 12/02/2023 12/12/2023 Active perflutren lipid microspheres 1.3 mL in NaCl (PF) 0.9% 10 mL injection (DEFINITY) (20 sources) Start: 01-16-2023 End: 04-16-2024 perflutren lipid microspheres 1.3 mL in NaCl (PF) 0.9% 10 mL injection (DEFINITY) 125 ml sodium chloride 9 mg/ml prefilled syringe (20 sources) Start: 01-16-2023 End: 04-16-2024 sodium chloride 0.9 % (flush) 10 mL (BD POSIFLUSH) sulfamethoxazole 800 mg / trimethoprim 160 mg oral tablet (9 sources) Dihydrofolate Reductase Inhibitor Antibacterial, Sulfonamide Antimicrobial Start: 01-29-2024 End: 02-12-2024 take 1 tablet by mouth twice daily sulfamethoxazole- trimethoprim (BACTRIM DS) 800-160 mg per tablet Take 1 tablet by mouth two times a day for 14 days. 28 tablet 01/29/2024 02/12/2024 Active Start: 08-05-2023 End: 08-10-2023 take 1 tablet by mouth twice daily sulfamethoxazole-trimethoprim (BACTRIM D S) 800-160 mg per tablet Indications: Cutaneous abscess of other site Take 1 tablet by mouth two times a day for 5 days. 10 tablet 0 08/05/2023 08/10/2023 Active Start: 12-27-2016 End: 06-18-2017 Sulfamethoxazole-Trimethopri m 1 TABLET tablet Discontinued 1 {tbl} PO TWICE A DAY December 27, 2016 12:00am June 18, 2017 5:50pm Start: 12-27-2016 End: 06-18-2017 take 1 tablet by mouth twice daily Sulfamethoxazole-Trimethoprim Discontinu ed 1 TABLET PO TWICE A DAY December 27, 2016 12:00am June 18, 2017 5:50pm Comment on above: Take 1 tablet by [facility] two times a day for 5 days. tamsulosin hydrochloride 0.4 mg oral capsule (20 sources) alpha-Adrenergic Junito Start: 11-18-2013 End: 07-31-2025 take 1 capsule by mouth once daily tamsulosin (FLOMAX) 0.4 mg Take 1 capsule by mouth once daily. 90 capsule 1 02/01/2025 07/31/2025 Active Comment on above: TAKE 1 CAPSULE BY [facility] EVERY DAY Take 1 capsule by mo [facility] once daily. Timolol Maleate (20 sources) beta-Adrenergic Junito Start: 08-05-2017 take 0.5 drop(s) into the eye(s) twice daily Timolol Maleate (Timoptic) 0.5 % drops Active 1 DRP OPHTHALMIC TWICE A DAY August 05, 2017 2:07pm Start: 08-05-2017 take 0.5 drop(s) int o the eye(s) twice daily Start: 08-05-2017 take 0.5 drop(s) int o the eye(s) twice daily Timolol Maleate (Timoptic) 0.5 % drops Active 1 DRP OPHTHALMIC TWICE A DAY August 05, 2017 1:00am Start: 08-05-2017 take 0.5 drop(s) int o the eye(s) twice daily Timolol Maleate (Timoptic) 0.5 % drops Active 1 DRP OPHTHALMIC TWICE A DAY August 05, 2017 12:00am Start: 02-14-2017 End: 01-01-2024 timolol maleate (TIMOPTIC) 0 .5 % ophthalmic solution Use 1 Drop in both eyes twice daily. 02/14/2017 01/01/2024 Discontinued (Erroneous entry) Start: 02-14-2017 timolol maleat e (TIMOPTIC) 0.5 % ophthalmic solution Use 1 Drop in both eyes twice daily. 02/14/2017 Active Comment on above: Use 1 Drop in both e yes twice daily. Completed/Discontinued Medications Medication Drug Class(es) Dates Sig (Normalized) Sig (Original) acetaminophen 325 mg / HYDROcodone bitartrate 5 mg oral tablet (20 sources) Opioid Agonist Start: 11-12-2020 End: 02-15-2021 Hydrocodone-Acetamin ophen 5-325 mg tablet Discontinued 1 {tbl} PO EVERY 6 HOURS as needed for pain 12 4 0 November 12, 2020 February 15, 2021 1:32pm Herpes zoster Zoster without complications Start: 11-12-2020 End: 02-15-2021 take 1 tablet by mouth every six hours Hydrocodone-Acetaminophen Discontinued 1 TABLET PO EVERY 6 HOURS 12 4 November 12, 2020 February 15, 2021 1:32pm Start: 11-19-2012 take 1-2 tablets by mouth four times daily as needed for pain VICODIN 5-300 MG TABS one to two tablets by mouth four times daily as needed for pain HYDROCODONE-ACETAMINOPHEN [id number] Mary Ann Dudley MD Start: 11-19-2012 End: 12-08-2012 take 1-2 tablets by mouth four times daily as needed for pain VICODIN 5-300 MG TABS one to two tablets by mouth four times daily as needed for pain HYDROCODONE-ACETAMINOPHEN [id number] Debbie Molina Ratliff OZ Start: 08-22-2011 take 1 tablet by shelly th four times daily as needed for pain VICODIN 5-500 MG TABS One tablet by mout h four times daily as needed for pain HYDROCODONE-ACETAMINOPHEN [id number] Mary Ann Dudley MD Start: 08-22-2011 End: 10-09-2011 take 1 tablet by mouth four times daily as needed for pain VICODIN 5-500 MG TABS One tablet by mout h four times daily as needed for pain HYDROCODONE-ACETAMINOPHEN [id number] Mary Ann Dudley MD Start: 05-10-2011 VICODIN 5-500 MG TABS one to two tabs four times a day as needed for pain HYDROCODONE-ACETAMINOPHEN [id number] Mary Ann Dudley MD Start: 05-10-2011 End: 08-19-2011 VICODIN 5-500 MG TABS one to two tabs four times a day as needed for pain HYDROCODONE-ACETAMINOPHEN [id number] Mary Ann Dudley MD Start: 11-07-2010 End: 08-19-2011 HYDROCODONE-ACETAMINOPHEN 5- 500 MG TABS one to two tabs four times a day as needed for pain HYDROCODONE-ACETAMINOPHEN [id number] Mary Ann Dudley MD Start: 11-07-2010 HYDROCODONE-AC ETAMINOPHEN 5-500 MG TABS one to two tabs four times a day as needed for pain HYDROCODONE-ACETAMINOPHEN [id number] Mary Ann Dudley MD acetaminophen 325 mg / oxyCODONE hydrochloride 5 mg oral tablet (20 sources) Opioid Agonist Start: 07-30-2019 End: 08-06-2019 Oxycodone-Acetaminophen 1 TABLET tablet Discontinued 1 {tbl} PO EVERY 4 HOURS NEEDED as needed for Pain Score 4-5/10 40 7 0 July 30, 2019 August 05, 2019 1:00am August 06, 2019 1:09am Other acute postprocedural pain 40 tabs (forty) Start: 07-30-2019 End: 08-06-2019 take 1 tablet by mouth every four hours as needed Oxycodone-Acetaminophen Discontinued 1 TABLET PO EVERY 4 HOURS NEEDED 40 7 July 30, 2019 August 06, 2019 1:09am 40 tabs (forty) Start: 04-28-2018 End: 05-05-2018 Oxycodone-Acetaminophen 1 TA BLET tablet Discontinued 1 {tbl} PO 4 TIMES DAILY NEEDED as needed for Pain 30 7 0 April 28, 2018 12:17pm May 04, 2018 1:00am May 05, 2018 1:07am Other acute postprocedural pain Start: 04-28-2018 End: 05-05-2018 take 1 tablet by mouth four times daily as needed Oxycodone-Acetaminophen Discontinued 1 TABLET PO 4 TIMES DAILY NEEDED 30 7 April 28, 2018 12:17pm May 05, 2018 1:07am Start: 04-25-2015 take 1-2 tablets by mouth four times daily as needed for pain PERCOCET 5-325 MG TABS one to two tablet s by mouth four times daily as needed for pain OXYCODONE-ACETAMINOPHEN [id number] Mary Ann Dudley MD Start: 04-25-2015 End: 08-25-2015 take 1-2 tablets by mouth four times daily as needed for pain PERCOCET 5-325 MG TABS one to two tablet s by mouth four times daily as needed for pain OXYCODONE-ACETAMINOPHEN [id number] Debbie Ratliff MICROFILM PROCESSOR Start: 04-04-2015 End: 04-10-2015 take 1-2 tablets by mouth four times daily as needed for pain PERCOCET 5-325 MG TABS one to two tablet s by mouth four times daily as needed for pain OXYCODONE-ACETAMINOPHEN [id number] Janee Tavarez MICROFILM PROCESSOR Start: 04-04-2015 take 1-2 tablets by mouth four times daily as needed for pain PERCOCET 5-325 MG TABS one to two tablet s by mouth four times daily as needed for pain OXYCODONE-ACETAMINOPHEN [id number] Mary Ann Dudley MD Start: 11-25-2013 End: 12-21-2013 take 1-2 tablets by mouth four times daily as needed for pain PERCOCET 5-325 MG TABS one to two tablet s by mouth four times daily as needed for pain OXYCODONE-ACETAMINOPHEN [id number] Debbie Tracy Ratliff LPN Start: 11-25-2013 take 1-2 tablets by mouth four times daily as needed for pain PERCOCET 5-325 MG TABS one to two tablet s by mouth four times daily as needed for pain OXYCODONE-ACETAMINOPHEN [id number] Mary Ann Dudley MD amLODIPine 2.5 mg oral tablet (20 sources) Dihydropyridine Calcium Channel Junito Start: 01-16-2023 End: 04-16-2023 take 1 tablet by mouth once daily amLODIPine (NORVASC) 2.5 mg tablet Indications: Benign hypertension Take 1 tablet by mouth once daily. 30 tablet 2 01/16/2023 01/30/2023 Discontinued Start: 06-04-2022 End: 01-16-2023 take 1 tablet by mouth once daily amLODIPine (NORVASC) 5 mg tablet Indications: Benign hypertension Take 1 tablet by mouth once daily. 90 tablet 1 08/27/2022 01/16/2023 Discontinued Start: 10-10-2020 End: 04-05-2022 take 0.5 tablet by mouth once daily amLODIPine (NORVASC) 5 mg tablet Take 0.5 tablets by mouth once daily. 45 tablet 3 10/10/2020 10/12/2021 Discontinued Start: 04-21-2018 take 2.5 mg by mouth once maxwell y Start: 04-21-2018 take 2.5 mg by mouth once maxwell y Amlodipine Active 2.5 MG PO DAILY April 21, 2018 11:00am Start: 09-10-2017 End: 04-21-2018 take 1 tablet by mouth once daily Amlodipine 10 MG tablet Discontinued 10 mg PO DAILY 30 0 September 10, 2017 12:00am April 21, 2018 10:54am Start: 03-19-2016 End: 08-05-2017 take 1 tablet by mouth once daily Amlodipine 10 MG tablet Discontinued 10 mg PO DAILY March 19, 2016 12:00am August 05, 2017 2:06pm Comment on above: Take 0.5 tablets by mouth once daily. TAKE 1/2 TABLET BY M OUTH ONCE DAILY Take 1 tablet by shelly th once daily. AMOXICILLIN-POT CLAVULANATE (2 sources) Penicillin-class Antibacterial Start: 1 End: 1 AUGMENTIN 875-125 MG TABS 1 tab twice daily for 10 days AMOXICILLIN-POT CLAVULANATE [id number] Debbie Ratliff MICROFILM PROCESSOR apixaban 5 mg oral tablet (20 sources) Factor Xa Inhibitor Start: 1 End: 4 take 1 tablet by mouth twice daily ELIQUIS 5 mg tab(s) Indications: Acute deep vein thrombosis (DVT) of femoral vein of right lower extremity (HCC) Take 1 tablet by mouth two times a day. 60 tablet 11 07/07/2023 12/02/2023 Discontinued (Course of therapy completed) Start: 05-22-2018 End: 06-21-2018 Apixaban 5 MG tablet Discont inued 5 mg PO TWICE A DAY May 22, 2018 1:00am June 20, 2018 1:00am June 21, 2018 1:09am dvt 10 mg twice daily for the first 7 days. On day 8 start 5 mg twice daily. For a total of 30 days. With 1 refill. Start: 05-22-2018 End: 06-21-2018 Apixaban Discontinued 5 MG P O TWICE A DAY May 22, 2018 1:00am June 21, 2018 1:09am 10 mg twice daily for the first 7 days. On day 8 start 5 mg twice daily. For a total of 30 days. With 1 refill. Comment on above: Take 1 tablet by shelly th twice daily. Take 1 tablet by shelly th two times a day. betamethasone 3 mg/ml / betamethasone acetate 3 mg/ml injectable suspension (1 source) Corticosteroid Start: 12-17-2021 End: 12-17-2021 betamethasone acetate-betamethasone sodium phosphate 6 mg injection (CELESTONE) Start: 12-17-2021 End: 12-17-2021 betamethasone acetate-betame thasone sodium phosphate 6 mg injection (CELESTONE) brimonidine tartrate 2 mg/ml ophthalmic solution (20 sources) alpha-Adrenergic Agonist Start: 04-20-2020 take 1 drop(s) into the eye(s) twice daily brimonidine (ALPHAGAN) 0.2 % ophthalmic solution Use 1 Drop in both eyes twice daily. 6 04/20/2020 Active Start: 08-05-2017 Start: 08-05-2017 End: 01-01-2024 take 1 drop(s) into the eye(s) twice daily brimonidine (ALPHAGAN) 0.2 % ophthalmic solution Use 1 Drop in both eyes twice daily. 6 04/20/2020 01/01/2024 Discontinued (Erroneous entry) Comment on above: Use 1 Drop in both e yes twice daily. cefadroxil 500 mg oral capsule (12 sources) Cephalosporin Antibacterial Start: 4 End: 4 take 1 tablet by mouth twice daily CEFADROXIL 500 MG CAPS One tablet by mouth twice daily CEFADROXIL [id number] Debbie Ratliff LPN Start: 08-22-2011 End: 10-09-2011 take 1 tablet by mouth twice daily CEFADROXIL 500 MG CAPS One tablet by mouth twice daily CEFADROXIL [id number] Mary Ann Dudley MD Start: 11-07-2010 End: 08-19-2011 CEFADROXIL 500 MG CAPS one t ab twice a day CEFADROXIL [id number] Mary Ann Dudley MD clindamycin 300 mg oral capsule (18 sources) Lincosamide Antibacterial Start: 07-30-2019 End: 08-11-2019 take 1 capsule by mouth three times daily Clindamycin Hcl 300 MG capsule Discontinued 300 mg PO THREE TIMES A DAY 15 0 July 30, 2019 1:00am August 11, 2019 1:13pm Start: 04-04-2015 End: 08-25-2015 take 1 tablet by mouth three times daily CLEOCIN 300 MG CAPS One tablet by mouth three times daily CLINDAMYCIN HCL [id number] Mary Ann Dudley MD Start: 05-10-2011 End: 08-19-2011 CLEOCIN 300 MG CAPS one tab three times a day CLINDAMYCIN HCL [id number] Mary Ann Dudley MD docusate sodium 50 mg / sennosides, skilled nursing 8.6 mg oral tablet (11 sources) Start: 01-09-2024 End: 02-24-2024 take 1 tablet by mouth twice daily senna-docusate (SENNA-S) 8.6-50 mg per tablet Take 1 tablet by mouth two times a day. 01/09/2024 02/24/2024 Discontinued doxycycline hyclate 100 mg oral capsule (12 sources) Tetracycline-clas s Drug Start: 08-19-2019 End: 10-14-2019 take 1 capsule by mouth twice daily Doxycycline Hyclate 100 mg capsule Discontinued 100 mg PO TWICE A DAY 14 0 September 27, 2019 12:00am October 14, 2019 1:29pm ergocalciferol 1.25 mg oral capsule (11 sources) Provitamin D2 Compound Start: 01-09-2024 End: 02-24-2024 take 1 capsule by mouth every week ergocalciferol 50,000 unit capsule (VITAMIN D2, DRISDOL) Take 1 capsule by mouth one time a week for 7 doses. 7 capsule 01/09/2024 02/24/2024 Discontinued ezetimibe 10 mg oral tablet (2 sources) Dietary Cholesterol Absorption Inhibitor ZETIA 10 MG TABS EZETIMIBE [id number] Mario Wilde DO FLUOROURACIL (4 sources) Nucleoside Metabolic Inhibitor Start: 12-04-2010 EFUDEX 5 % CREA apply twice a day for a month then stop for a month then be re-examined FLUOROURACIL [id number] Mary Ann Dudley MD Start: 12-04-2010 End: 08-19-2011 EFUDEX 5 % CREA apply twice a day for a month then stop for a month then be re-examined FLUOROURACIL [id number] Mary Ann Dudley MD furosemide 20 mg oral tablet (1 source) Loop Diuretic Start: 01-16-2023 End: 01-16-2023 take 1 tablet by mouth once daily furosemide (LASIX) 20 mg tablet Take 1 tablet by mouth once daily. 30 tablet 0 01/16/2023 01/16/2023 Discontinued Comment on above: Take 1 tablet by shelly once daily. hydroCHLOROthiazide 12.5 mg oral capsule (6 sources) Thiazide Diuretic Start: 12-27-2016 End: 06-18-2017 take 1 capsule by mouth once daily Hydrochlorothiazide 12.5 MG capsule Discontinued 12.5 mg PO DAILY December 27, 2016 12:00am June 18, 2017 5:49pm Lactobac Acidoph-Fructooligos (5 sources) Start: 07-30-2019 End: 02-15-2021 Lactobac Acidoph-Fructooligos Discontinued 1 EACH PO TWICE A DAY July 30, 2019 5:00pm February 15, 2021 1:32pm Start: 07-30-2019 End: 02-15-2021 Lactobac Acidoph-Fructooligo s Discontinued 1 EACH PO TWICE A DAY July 30, 2019 1:00am February 15, 2021 1:32pm Start: 07-30-2019 End: 02-15-2021 Lactobac Acidoph-Fructooligo s Discontinued 1 EACH PO TWICE A DAY July 30, 2019 12:00am February 15, 2021 12:32pm Lactobac Acidoph-Fructooligos 1 EACH tablet (1 source) Start: 07-30-2019 End: 02-15-2021 Lactobac Acidoph-Fructooligos 1 EACH tablet Discontinued 1 NMA PO TWICE A DAY July 30, 2019 1:00am February 15, 2021 1:32pm lactobacillus (16 sources) Start: 04-25-2015 take 1 tablet by mouth twice daily ACIDOPHILUS PROBIOTIC TABS One tablet by mouth twice daily LACTOBACILLUS [id number] Mary Ann Dudley MD Start: 04-25-2015 End: 08-25-2015 take 1 tablet by mouth twice daily ACIDOPHILUS PROBIOTIC TABS One tablet by mouth twice daily LACTOBACILLUS [id number] Debbie Ratliff LPN Start: 04-04-2015 take 1 tablet by shelly th twice daily ACIDOPHILUS PROBIOTIC TABS One tablet by mouth twice daily LACTOBACILLUS [id number] Mary Ann Dudley MD Start: 04-04-2015 End: 04-10-2015 take 1 tablet by mouth twice daily ACIDOPHILUS PROBIOTIC TABS One tablet by mouth twice daily LACTOBACILLUS [id number] Janee Tavarez LPN Start: 11-25-2013 take 1 tablet by shelly th twice daily ACIDOPHILUS PROBIOTIC TABS One tablet by mouth twice daily LACTOBACILLUS [id number] Mary Ann Dudley MD Start: 11-25-2013 End: 12-21-2013 take 1 tablet by mouth twice daily ACIDOPHILUS PROBIOTIC TABS One tablet by mouth twice daily LACTOBACILLUS [id number] Debbie Ratliff LPN Start: 11-19-2012 take 1 tablet by shelly twice daily ACIDOPHILUS PROBIOTIC CAPS One tablet by mouth twice daily LACTOBACILLUS CAPS [id number] Mary Ann Dudley MD Start: 11-19-2012 End: 12-08-2012 take 1 tablet by mouth twice daily ACIDOPHILUS PROBIOTIC CAPS One tablet by mouth twice daily LACTOBACILLUS CAPS [id number] Debbie Ratliff LPN levoFLOXacin 500 mg oral tablet (6 sources) Quinolone Antimicrobial Start: 08-16-2019 End: 09-02-2019 take 1 tablet by mouth once daily Levofloxacin (Levaquin) 500 mg tablet Discontinued 500 mg PO DAILY 7 August 16, 2019 12:00am September 02, 2019 1:21pm lidocaine 0.04 mg/mg medicated patch (13 sources) Antiarrhythmic, Amide Local Anesthetic Start: 01-09-2024 End: 02-24-2024 apply 1 dose transdermal route once daily lidocaine (SALONPAS) 4 % patch Apply 1 Patch as directed once daily. 01/09/2024 02/24/2024 Discontinued Start: 12-17-2021 End: 12-17-2021 lidocaine (PF) 10 mg/mL (1 % ) 4 mL injection (XYLOCAINE) Start: 07-18-2021 End: 07-23-2021 apply 1 dose transdermal route once daily lidocaine (SALONPAS) 4 % patch Apply 1 Patch as directed once daily for 5 days. 5 Patch 07/18/2021 07/23/2021 lisinopril 5 mg oral tablet (2 sources) Angiotensin Converting Enzyme Inhibitor LISINOPRIL 5 MG TABS LISINOPRIL [id number] Debbie Ratliff LPN Multivitamin preparation (10 sources) End: 02-24-2024 multivitamin (DAILY EVELYN ORAL) Take by mouth once daily. 02/24/2024 Discontinued multivitamin (DA ARIELLA EVELYN ORAL) Take by mouth once daily. Active omeprazole 20 mg delayed release oral capsule (20 sources) Proton Pump Inhibitor Start: 11-18-2013 End: 01-05-2024 take 1 capsule by mouth once daily in the morning omeprazole (PRILOSEC) 20 mg capsule Take 1 capsule by mouth every morning. 90 capsule 3 10/18/2022 01/05/2024 Discontinued (Erroneous entry) OMEPRAZOLE CPDR OMEPRAZOLE CPDR [id number] Mario Wilde DO Comment on above: Take 1 capsule by mo [facility] every morning. TAKE 1 CAPSULE BY [facility] EVERY DAY IN THE MORNING oxyCODONE hydrochloride 5 mg oral tablet (12 sources) Opioid Agonist Start: 2 End: 4 take 1 tablet by mouth every eight hours as needed oxyCODONE IR (ROXICODONE) 5 mg immediate release tablet Indications: Closed fracture of one rib of right side with routine healing Take 1 tablet by mouth every 8 hours as needed for up to 3 days. 9 tablet 07/18/2021 07/21/2021 polyethylene glycol 3350 45775 mg powder for oral solution (11 sources) Osmotic Laxative Start: 4 End: 4 polyethylene glycol 3350 17 gram packet Take 1 Packet by mouth once daily. Dissolve dose in 4 - 8 ounces of liquid and take as directed. 01/09/2024 02/24/2024 Discontinued vitamin with folic acid 1 mg 60 mg iron-1 mg tab (11 sources) Start: 4 End: 4 take 1 tablet by mouth once daily vitamin with folic acid 1 mg 60 mg iron-1 mg tab Take 1 tablet by mouth once daily. 01/09/2024 02/24/2024 Discontinued Start: 01-09-2024 take 1 tablet by shelly th once daily vitamin with folic acid 1 mg 60 mg iron-1 mg tab Take 1 tablet by mouth once daily. 01/09/2024 Active Start: 01-09-2024 take 1 tablet by shelly th once daily vitamin with folic acid 1 mg 60 mg iron-1 mg tab Take 1 tablet by mouth once daily. 0 01/09/2024 Active primidone 250 mg oral tablet (15 sources) Anti-epileptic Agent Start: 10-23-2021 End: 04-21-2022 take 1 tablet by mouth once daily primidone (MYSOLINE) 250 mg tablet Indications: Intention tremor Take 1 tablet by mouth once daily. 90 tablet 1 10/23/2021 03/19/2022 Discontinued Start: 04-23-2021 End: 10-23-2021 take 1.5 tablets by mouth twice daily primidone (MYSOLINE) 50 mg tablet Indications: Intention tremor Take 1.5 tablets by mouth twice daily. 270 tablet 1 04/23/2021 10/23/2021 Discontinued Comment on above: Take 1.5 tablets by mouth twice daily. Take 1 tablet by shelly th once daily. thiamine 100 mg oral tablet (11 sources) Start: End: take 1 tablet by mouth three times daily thiamine (VITAMIN B1) 100 mg tablet Take 1 tablet by mouth three times a day. 01/09/2024 02/24/2024 Discontinued valACYclovir 1000 mg oral tablet (6 sources) Herpesvirus Nucleoside Analog DNA Polymerase Inhibitor, Herpes Simplex Virus Nucleoside Analog DNA Polymerase Inhibitor, Herpes Zoster Virus Nucleoside Analog DNA Polymerase Inhibitor Start: End: Valacyclovir 1 gram tablet Discontinued 1000 mg PO THREE TIMES A DAY 21 7 0 November 12, 2020 12:00am February 15, 2021 1:32pm Start: 11-12-2020 End: 02-15-2021 take 1000 mg by mouth three times daily Valacyclovir Discontinued 1000 MG PO THREE TIMES A DAY 21 7 November 12, 2020 12:00am February 15, 2021 1:32pm Problems Active Problems Problem Classification Problem Date Documented Date Episodic/Chronic Adjustment disorders (20 sources) Reactive depression (situational); Translations: [Adjustment disorder with depressed mood] Onset: 7 07-03-2016 Chronic Alcohol-related disorders (20 sources) Alcohol abuse; Translations: [Alcohol abuse, uncomplicated] Onset: 4 01-31-2023 Chronic Alcohol-related disorders (6 sources) Alcohol use, unspecified with intoxication, unspecified; Translations: [Alcohol abuse, unspecified] Episodic Aortic; peripheral; and visceral artery aneurysms (20 sources) Abdominal aortic aneurysm; Translations: [Abdominal aortic aneurysm, without rupture] Onset: 2 01-29-2017 Chronic Cancer; other and unspecified primary (2 sources) Squamous cell carcinoma of upper extremity; Translations: [Squamous cell carcinoma of skin of right upper limb, including shoulder] Onset: 6 04-03-2016 Chronic Chronic obstructive pulmonary disease and bronchiectasis (20 sources) Pulmonary emphysema; Translations: [Emphysema, unspecified] Onset: 7 12-31-2016 Chronic Coagulation and hemorrhagic disorders (5 sources) Bleeding skin; Translations: [Spontaneous ecchymoses] 04-25-2022 Episodic Complication of device; implant or graft (6 sources) Skin graft failure; Translations: [Other complications of skin graft (allograft) (autograft)] 02-17-2020 Episodic Comment on above: dorsum right hand Deficiency and other anemia (1 source) Anemia due to blood loss; Translations: [Iron deficiency anemia secondary to blood loss (chronic)] 12-03-2023 Chronic Deficiency and other anemia (2 sources) Anemia; Translations: [Anemia, unspecified] 02-26-2024 Episodic Deficiency and other anemia (1 source) Normocytic anemia; Translations: [Anemia, unspecified] 02-02-2025 Episodic Diabetes mellitus without complication (1 source) Hyperglycemia; Translations: [Hyperglycemia, unspecified] 08-02-2024 Episodic Disorders of lipid metabolism (20 sources) Hyperlipidemia; Translations: [Hyperlipidemia, unspecified] Onset: 5 03-16-2018 Chronic E Codes: Fall (20 sources) Fall on same level; Translations: [Fall on same level, unspecified, initial encounter] Onset: 2 07-18-2021 Episodic Esophageal disorders (20 sources) Gastroesophageal reflux disease; Translations: [Gastro-esophageal reflux disease without esophagitis] 03-11-2005 Chronic Essential hypertension (20 sources) Benign hypertension; Translations: [Essential (primary) hypertension] Onset: 6 07-13-2015 Chronic Genitourinary symptoms and ill-defined conditions (2 sources) Acute retention of urine ; Translations: [Other retention of urine] Onset: 5 03-10-2025 Episodic Glaucoma (7 sources) Glaucoma; Translations: [Other specified glaucoma] Onset: 5 10-27-2024 Chronic Headache; including migraine (20 sources) Episodic paroxysmal hemicrania; Translations: [Episodic paroxysmal hemicrania, not intractable] Onset: 6 07-13-2015 Chronic Hyperplasia of prostate (20 sources) Benign prostatic hypertrophy with outflow obstruction; Translations: [Benign prostatic hyperplasia with lower urinary tract symptoms] Onset: 8 01-17-2017 Chronic Neoplasms of unspecified nature or uncertain behavior (20 sources) Neoplasm of face; Translations: [Neoplasm of skin] Onset: 1 01-17-2016 Episodic Comment on above: 8 mm lesion left heide ek 1 cm lesion left lat eral forehead by temporal hairline 6 mm erythematous le dae dorsal aspect right mid forearm1 cm lesion dorsal radial aspect mid left forearm8 mm lesion dorsal distal right forearm6 mm lesion dorsal distal left forearm 1.5 cm painful eryth ematous lesion right posterior neck, superior, by occipital hairline2.1 cm erythematous lesion right posterior neck, inferior 1.5 cm lesion left t emple 1.4 cm erythematous lesion right posterior ear (mid aspect)1 cm lesion left postauricular area by earlobe6 mm lesion left postauricular area near occipital hairline6 mm lesion right ear at superior helical rim 12 mm cutaneous horn lesion dorsum right hand by long finger8 mm lesion dorsum right hand, ulnar aspect, proximal8 mm lesion dorsum right hand, ulnar aspect, distal6 mm lesion dorsum right hand by index finger and base of right thumb4 mm lesion dorsum left hand by first webspace1.3 cm lesion proximal ulnar aspect by webspace left ring finger. 6 mm erythematous le dae right nasal tip6 mm lesion nasal dorsum6 mm lesion proximal nasal dorsum near nasal root 6 mm lesion left out er distal arm 6 mm lesion left out er arm, superior5 mm lesion left outer arm, inferior dorsum left wrist by index finger 5 mm lesion right la teral forehead by hairline Nutritional deficiencies (20 sources) Vitamin D deficiency; Translations: [Vitamin D deficiency, unspecified] Onset: 4 01-07-2024 Chronic Open wounds of extremities (2 sources) Tear of skin; Translations: [Laceration without foreign body of right elbow, initial encounter] 12-02-2023 Episodic Open wounds of head; neck; and trunk (6 sources) Facial laceration ; Translations: [Laceration without foreign body of left eyelid and periocular area, subsequent encounter] Episodic Osteoarthritis (20 sources) Arthritis of left sternoclavicular joint; Translations: [Primary osteoarthritis, left shoulder] Onset: 0 04-20-2020 Chronic Other aftercare (20 sources) Long-term current use of anticoagulant; 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] Onset: 8 12-02-2018 Episodic Other circulatory disease (6 sources) History of endovascular stent graft for repair of abdominal aortic aneurysm; Translations: [Presence of other vascular implants and grafts] 10-09-2020 Chronic Other circulatory disease (2 sources) Presence of other vascular implants and grafts; Translations: [Blood vessel replaced by other means] 10-08-2022 Chronic Other circulatory disease (3 sources) Orthostatic hypotension; Translations: [Orthostatic hypotension] Episodic Other circulatory disease (5 sources) Transient hypotension; Translations: [Hypotension, unspecified] 04-03-2022 Episodic Other circulatory disease (2 sources) Low blood pressure; Translations: [Hypotension, unspecified] 01-31-2023 Episodic Other connective tissue disease (2 sources) Impingement syndrome of right shoulder region; Translations: [Impingement syndrome of right shoulder] Episodic Other connective tissue disease (1 source) Disorder of rotator cuff; Translations: [Unspecified disorder of synovium and tendon, right shoulder] Episodic Other connective tissue disease (1 source) Adhesive capsulitis of right shoulder; Translations: [Adhesive capsulitis of right shoulder] Episodic Other connective tissue disease (20 sources) History of cervical spine fusion; Translations: [Arthrodesis status] 01-22-2024 Episodic Other connective tissue disease (2 sources) Muscle weakness of upper limb; Translations: [Muscle weakness (generalized)] 03-01-2024 Episodic Other connective tissue disease (1 source) Weakness of face muscles; Translations: [Facial weakness] 10-27-2024 Episodic Other eye disorders (1 source) Scleral injection; Translations: [Other specified disorders of eye and adnexa] 10-27-2024 Episodic Other fractures (6 sources) Fracture of rib; Translations: [Fracture of one rib, unspecified side, initial encounter for closed fracture] 07-23-2021 Episodic Other fractures (1 source) Closed fracture of multiple ribs; Translations: [Multiple fractures of ribs, right side, subsequent encounter for fracture with routine healing] 07-20-2021 Episodic Other fractures (20 sources) Fracture of cervical spine; Translations: [Fracture of neck, unspecified, initial encounter] 04-27-2024 Episodic Other fractures (1 source) Fracture of fourth cervical vertebra; Translations: [Unspecified displaced fracture of fourth cervical vertebra, initial encounter for closed fracture] 01-09-2024 Episodic Other hereditary and degenerative nervous system conditions (20 sources) Intention tremor; Translations: [Other specified forms of tremor] Onset: 0 12-20-2019 Chronic Other hereditary and degenerative nervous system conditions (8 sources) Essential tremor; Translations: [Essential tremor] Chronic Other injuries and conditions due to external causes (6 sources) Subcutaneous emphysema; Translations: [Traumatic subcutaneous emphysema, initial encounter] 07-23-2021 Episodic Other injuries and conditions due to external causes (5 sources) Injury of head; Translations: [Unspecified injury of head, subsequent encounter] Episodic Other injuries and conditions due to external causes (6 sources) Closed injury of head; Translations: [Unspecified injury of head, initial encounter] 04-03-2022 Episodic Other liver diseases (4 sources) Alkaline phosphatase raised; Translations: [Abnormal levels of other serum enzymes] 03-01-2024 Episodic Other lower respiratory disease (8 sources) Dyspnea on exertion; Translations: [Other forms of dyspnea] 01-17-2023 Episodic Other lower respiratory disease (3 sources) Rib pain; Translations: [Pleurodynia] 02-18-2023 Episodic Other lower respiratory disease (2 sources) Decreased breath sounds; Translations: [Other abnormalities of breathing] 02-26-2024 Episodic Other nervous system disorders (2 sources) Unsteady when walking; Translations: [Unsteadiness on feet] Episodic Other nervous system disorders (1 source) Paresthesia; Translations: [Paresthesia of skin] 05-28-2024 Episodic Other non-epithelial cancer of skin (20 sources) 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; Translations: [Other and unspecified malignant neoplasm of skin of upper limb, including shoulder] Onset: 6 11-28-2013 Episodic Comment on above: 2.1 cm squamous cell carcinoma, keratoacanthoma type, dorsum right hand by index finger 8 mm squamous cell c arcinoma left cheek 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 ous cell carcinoma lower middle helical rim left ear 10 mm 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 C44.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, anterior C44.43364 mm squamou s cell carcinoma dorsal aspect mid right forearm Z85.828 Other non-traumatic joint disorders (4 sources) Shoulder pain; Translations: [Pain in right shoulder] Episodic Other non-traumatic joint disorders (3 sources) Decreased range of shoulder movement; Translations: [Stiffness of unspecified shoulder, not elsewhere classified] Episodic Other non-traumatic joint disorders (1 source) Pain in right shoulder; Translations: [Pain in joint, shoulder region] 10-23-2021 Episodic Other nutritional; endocrine; and metabolic disorders (20 sources) Obese class I; Translations: [Obesity, unspecified] Onset: 3 Chronic Other nutritional; endocrine; and metabolic disorders (20 sources) Body mass index 30+ - obesity; Translations: [Body mass index (BMI) 30.0-30.9, adult] Onset: 4 01-07-2024 Chronic Other nutritional; endocrine; and metabolic disorders (1 source) Hypoalbuminemia; Translations: [Other disorders of plasma-protein metabolism, not elsewhere classified] 12-03-2023 Chronic Other skin disorders (20 sources) Actinic keratosis; Translations: [Other seborrheic keratosis] Onset: 1 Resolved: 7 04-03-2016 Episodic Comment on above: 1 cm actinic lesion right top of scalp, anterior7 mm actinic lesion right top of scalp, posteriorScattered erythematous actinic damage nasal dorsum6 mm actinic lesion right lateral cheek5 mm actinic lesion left lateral forehead6 mm actinic lesion right lateral nasal sidewall8 mm actinic keratosis with moderate atypia dorsum right hand, ulnar aspect, proximal 8 mm actinic keratosis with moderate atypia dorsum right hand, ulnar aspect, distal8 mm actinic keratosis dorsal distal right forearm1 cm actinic keratosis left buddhist in hairline5 mm actinic lesion dorsum left hand by index finger5 mm actinic lesion dorsum left hand by small finger4 mm actinic lesion left cheek just lateral to recent scar from excision squamous cell carcinomaactinic lesions cluster x3 top of scalp1 cm actinic keratosis left postauricular area by earlobe6 mm actinic keratosis left postauricular area near occipital hairline6 mm actinic keratosis dorsal radial aspect right wrist6 mm actinic keratosis left outer distal arm8 mm actinic keratosis left posterior arm2.3 cm actinic keratosis left lateral neck, upper8 mm actinic keratosis dorsoradial aspect distal left forearm by the wrist1 cm actinic keratosis dorsum left hand by first webspace5 mm actinic keratosis dorsum right hand by ring finger7 mm actinic keratosis left lateral neck, lower6 mm actinic keratosis right postauricular area, posterioractinic lesion right upper lipscattered actinic damage dorsal distal right forearm and dorsum of handscattered actinic damage dorsal distal left forearm and dorsum of hand Other skin disorders (6 sources) Seborrheic keratosis; Translations: [Other seborrheic keratosis] 06-13-2022 Episodic Comment on above: 8 mm benign keratosi s right supra-medial cheek near medial [place] area7 mm benign keratosis left upper chest wall/clavicle Other skin disorders (6 sources) Actinic keratosis; Translations: [Actinic keratosis] Episodic Other skin disorders (4 sources) Other seborrheic keratosis; Translations: [Other seborrheic keratosis] 06-11-2022 Episodic Other skin disorders (3 sources) Cutaneous horn; Translations: [Other specified epidermal thickening] 12-11-2022 Episodic Comment on above: 12 mm cutaneous horn dorsum right hand by long finger Other skin disorders (2 sources) Other specified epidermal thickening; Translations: [Other specified dermatoses] 12-09-2022 Episodic Other skin disorders (3 sources) Skin lesion; Translations: [Disorder of the skin and subcutaneous tissue, unspecified] 10-28-2024 Episodic Other upper respiratory disease (1 source) Allergic rhinitis; Translations: [Other allergic rhinitis] Chronic Phlebitis; thrombophlebitis and thromboembolism (20 sources) H/O: Deep vein thrombosis; Translations: [Personal history of other venous thrombosis and embolism] Onset: 8 Resolved: 9 12-02-2018 Episodic Pleurisy; pneumothorax; pulmonary collapse (20 sources) Pleural effusion; Translations: [Pleural effusion, not elsewhere classified] Onset: 9 06-17-2018 Episodic Residual codes; unclassified (20 sources) Chews tobacco ; Translations: [Tobacco use] 10-19-2020 Episodic Residual codes; unclassified (1 source) Bilateral lower limb edema; Translations: [Localized edema] 01-16-2023 Episodic Residual codes; unclassified (2 sources) Current drinker; Translations: [Other specified health status] 04-28-2024 Episodic Residual codes; unclassified (1 source) Tobacco use and exposure - finding; Translations: [Tobacco use] 02-01-2025 Episodic Residual codes; unclassified (2 sources) Tobacco use; Translations: [Tobacco use] Onset: 1 Episodic Screening or history of mental health and substance abuse (10 sources) Smoker; Translations: [Nicotine dependence, unspecified, uncomplicated] Onset: 2 Resolved: 5 04-30-2012 Chronic Screening or history of mental health and substance abuse (14 sources) Ex-smoker; Translations: [Personal history of nicotine dependence] Onset: 5 04-10-2015 Episodic Spinal cord injury (20 sources) Cervical spinal cord injury; Translations: [Unspecified injury at C1 level of cervical spinal cord, initial encounter] Onset: 4 01-01-2024 Chronic Spondylosis; intervertebral disc disorders; other back problems (20 sources) Arthritis of facet joint of lumbar spine; Translations: [Spondylosis without myelopathy or radiculopathy, lumbar region] Onset: 5 06-27-2014 Chronic Sprains and strains (1 source) Traumatic rupture of rotator cuff; Translations: [Strain of muscle(s) and tendon(s) of the rotator cuff of right shoulder, initial encounter] Episodic Substance-related disorders (20 sources) Nicotine dependence; Translations: [Nicotine dependence, unspecified, uncomplicated] Onset: 3 04-05-2023 Chronic Superficial injury; contusion (3 sources) Abrasion of forehead; Translations: [Abrasion of other part of head, initial encounter] 12-02-2023 Episodic Unclassified (2 sources) Aftercare ; Translations: [Encounter for other specified surgical aftercare] Onset: 3 12-01-2012 Unclassified (2 sources) Disruption of wound, unspecified; Translations: [Disruption of wound, unspecified] Onset: 3 12-01-2012 Unclassified (1 source) Alcohol use; Translations: [Alcohol use] Onset: Viral infection (12 sources) Herpes zoster; Translations: [Zoster without complications] 11-12-2020 Episodic Past or Other Problems Problem Classification Problem Date Documented Date Episodic/Chronic Complications of surgical procedures or medical care (20 sources) Trauma and postoperative pulmonary insufficiency; Translations: [Acute postprocedural respiratory failure] Onset: 01-02-2024 Resolved: 04-04-2024 01-07-2024 Episodic Crushing injury or internal injury (20 sources) Contusion of lung; Translations: [Contusion of lung, unilateral, initial encounter] Onset: 07-16-2021 Resolved: 07-18-2021 07-18-2021 Episodic Deficiency and other anemia (1 source) Anemia, unspecified; Translations: [Anemia, unspecified type] Onset: 04-27-2024 Episodic Fluid and electrolyte disorders (20 sources) Hypokalemia; Translations: [Hypokalemia] Onset: 01-01-2024 01-01-2024 Episodic Immunizations and screening for infectious disease (10 sources) Vaccination needed; Translations: [Encounter for immunization] Onset: 10-27-2024 Episodic Inflammatory conditions of male genital organs (20 sources) Prostatitis; Translations: [Inflammatory disease of prostate, unspecified] Onset: 01-08-2012 Resolved: 04-13-2014 04-13-2014 Episodic Other connective tissue disease (3 sources) Arthrodesis status; Translations: [S/P cervical spinal fusion] Onset: 04-27-2024 Episodic Other connective tissue disease (1 source) Other symptoms and signs involving the musculoskeletal system; Translations: [Weakness of upper extremity] Onset: 10-27-2024 Episodic Other connective tissue disease (1 source) Facial weakness; Translations: [Facial droop] Onset: 10-27-2024 Episodic Other diseases of bladder and urethra (20 sources) Bladder neck obstruction; Translations: [Bladder-neck obstruction] Onset: 11-26-2007 Resolved: 12-02-2018 12-02-2018 Chronic Other diseases of kidney and ureters (1 source) Other obstructive and reflux uropathy; Translations: [BPH with obstruction/lower urinary tract symptoms] Onset: 01-17-2017 Episodic Other diseases of veins and lymphatics (20 sources) Venous insufficiency of leg; Translations: [Venous insufficiency (chronic) (peripheral)] Onset: 07-01-2014 07-01-2014 Episodic Other ear and sense organ disorders (1 source) Otorrhea, unspecified ear; Translations: [Otorrhea, unspecified ear] Onset: 01-10-2024 Episodic Other eye disorders (1 source) Other specified disorders of eye and adnexa; Translations: [Scleral injection] Onset: 10-27-2024 Episodic Other fractures (20 sources) Closed fracture of one rib; Translations: [Fracture of one rib, right side, subsequent encounter for fracture with routine healing] Onset: 07-16-2021 07-18-2021 Episodic Other fractures (20 sources) Closed fracture of single left rib; Translations: [Fracture of one rib, left side, initial encounter for closed fracture] Onset: 03-12-2017 Resolved: 07-12-2017 07-12-2017 Episodic Other fractures (20 sources) Closed fracture of fourth cervical vertebra; Translations: [Unspecified nondisplaced fracture of fourth cervical vertebra, initial encounter for closed fracture] Onset: 01-01-2024 01-01-2024 Episodic Other fractures (1 source) Unspecified nondisplaced fracture of fourth cervical vertebra, initial encounter for closed fracture; Translations: [Closed nondisplaced fracture of fourth cervical vertebra, unspecified fracture morphology, initial encounter ([facility])] Onset: 01-01-2024 Episodic Other fractures (1 source) Other nondisplaced fracture of fourth cervical vertebra, sequela; Translations: [Other closed nondisplaced fracture of fourth cervical vertebra, sequela] Onset: 04-27-2024 Episodic Other injuries and conditions due to external causes (20 sources) At high risk for fall; Translations: [History of falling] Onset: 07-04-2022 07-04-2022 Episodic Other injuries and conditions due to external causes (20 sources) Traumatic injury; Translations: [Injury, unspecified, initial encounter] Onset: 01-01-2024 01-01-2024 Episodic Other liver diseases (1 source) Abnormal levels of other serum enzymes; Translations: [Elevated alkaline phosphatase level] Onset: 05-06-2024 Episodic Other lower respiratory disease (20 sources) Nodule of lung; Translations: [Solitary pulmonary nodule] Onset: 04-17-2012 01-09-2018 Episodic Other lower respiratory disease (1 source) Other forms of dyspnea; Translations: [CHAU (dyspnea on exertion)] Onset: 07-29-2024 Episodic Other skin disorders (1 source) Disorder of the skin and subcutaneous tissue, unspecified; Translations: [Skin lesion] Onset: 10-27-2024 Episodic Residual codes; unclassified (1 source) Other specified health status; Translations: [Alcohol use] Onset: 04-27-2024 Episodic Skin and subcutaneous tissue infections (20 sources) Abscess of skin and/or subcutaneous tissue; Translations: [Cutaneous abscess of other sites] Onset: 02-05-2007 Resolved: 04-13-2014 08-08-2023 Episodic Spondylosis; intervertebral disc disorders; other back problems (4 sources) Spinal stenosis in cervical region; Translations: [Spinal stenosis, cervical region] Onset: 04-26-2024 02-24-2024 Episodic Unclassified (5 sources) ACTINIC LESION WITH SEVERE ATYPIA 12-20-2021 Comment on above: DORSUM RIGHT HAND BY THE BASE OF THE THUMB Unclassified (5 sources) ATYPICAL SQUAMOUS EPITHELIAL LESION WITH SOLAR KERATOSIS 12-20-2021 Comment on above: MID DORSAL RIGHT FOR EARM Unclassified (5 sources) ATYPICAL SQUAMOUS LESION LEFT PREAURICULAR AREA 12-20-2021 Unclassified (5 sources) EXCISION ATYPICAL SQUAMOUS LESION 12-20-2021 Comment on above: 7MM LESION LEFT PREA RICULAR AREA WITH 25 MM LAYERED CLOSURE, INTRADERMAL 1 CM ACTINIC LESION SUPERIOR HELICAL RIM LEFT EAR, INTRADERMAL EXCISION 7 MM ACTINIC LESION RIGHT POSTERIOR EAR, INTRADERMAL EXCISION 7 MM ACTINIC LESION NASAL DORSUM, INTRADERMAL EXCISION 6 MM LESION RIGHT VOLAR FOREARM 05/10/11 Unclassified (5 sources) EXCISION LESIONS AND SKIN CANCERS 12-20-2021 Comment on above: Excision 6 mm squamo us cell carcinoma in situ superior helical rim [...] by the long finger on November 25, 2013Excision 10 mm 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 and first stage complex left ear reconstruction with left postauricular advancement skin flap reconstruction and placement of cartilage graft from right ear and excision 7 mm actinic keratosis with severe atypia left arm with 5 cm layered closure on April 04, 2015Second stage complex left ear reconstruction with division and inset of postauricular skin flap and reconstruction left postauricular donor site wound with advancement skin flap on April 25, 2015Intradermal excision 7 mm actinic keratosis left lateral [...] postauricular area, posterior on March 19, 2016 Unclassified (5 sources) EXCISION OF SKIN CANCER FACE AND HANDS 12-20-2021 Unclassified (5 sources) INFLAMED ACTINIC KERATOSIS 12-20-2021 Comment on above: DORSUM LEFT HAND BY THE RING FINGER Unclassified (5 sources) INFLAMED ACTINIC KERATOSIS RIGHT VOLAR FOREARM 12-20-2021 Unclassified (5 sources) INTRADERMAL EXCISION LESIONS 12-20-2021 Comment on above: 1 CM LESION DORSUM R IGHT HAND BY THE INDEX FINGER, INTRADERMAL EXCISION 5 MM LESION DORSUM LEFT HAND BY THE FIRST WEBSPACE, INTRADERMAL EXCISION 5 MM LESION LEFT DISTAL RADIAL FOREARM, INTRADERMAL EXCISION 5 MM LESION LEFT DISTAL DORSAL FOREARM, INTRADERMAL EXCISION 6 MM LESION RIGHT LATERAL FOREHEAD BY THE LATERAL EYEBROW, AND INTRADERMAL EXCISION 5 MM LESION LEFT LATERAL FOREHEAD 08/22/11 Unclassified (5 sources) SCATTERED ACTINIC DAMAGE ON FACE AND UPPER EXTREMITIES 12-20-2021 Unclassified (3 sources) History of cervical spine fusion 07-26-2024 Results Test Name Value Interpretation Reference Range Facility [facility] 03-14-2025 [facility] Telephone ([facility]) VICKI RANDLE ([id number]) 1945 M Date Time Provider Department 03/14/25 KANCHAN GE During your visit today, we recorded the following information about you: Yosef Ya RN 03/14/2025 10:53 AM Signed Pt called in and reports he was in the ER on Friday and hd a schreiber cath placed. He said he needed to have it removed. I let him know the PCP wouldn't pull it in office, they would put in a referral for the Pt to go to Urology. The Pt already has an appointment with Urology on 03/21/25 to get the schreiber cath removed, he just wanted to see if he could get it removed sooner. KHRIS Ulloa Christopher B, MD 03/14/2025 11:04 AM Signed Reviewed. Needs to f/u with urology as scheduled. Allergies As of Date: 03/14/2025 Noted Allergy Reaction LIPITOR (ATORVASTATIN CALCIUM) 03/11/2005 5 - Intolerance ROSUVASTATIN CALCIUM 03/02/2017 5 - Intolerance [id number]-IFT-[id number] REDUCTASE INHIBIT*01/10/2018 17 - Myalgia Date Reviewed: 02/01/2025 Reviewed by: Peace Hopper LPN - Fully Assessed Reason for Visit: Patient Update [1234] Patient Question [6687] Prescriptions as of 03/14/2025 - finasteride (PROSCAR) 5 mg tablet Take 1 tablet by mouth once daily. - tamsulosin (FLOMAX) 0.4 mg Take 1 capsule by mouth once daily. - finasteride (PROSCAR) 5 mg tablet Take 5 mg by mouth once daily. - evolocumab (REPATHA SURECLICK) 140 mg/mL pen injector Inject 140 mg subcutaneously every 2 weeks. - gabapentin (NEURONTIN) 300 mg capsule Take 1 capsule by mouth three times a day for 30 days. - melatonin 3 mg tablet Take 3 tablets by mouth daily at bedtime. - [id number] EXAMETH 3.5 MG/ML-10,000 UNIT/ML-0.1% EYE DROPS Use 1 Drop in both eyes four times daily. - acetaminophen (TYLENOL) 325 mg tablet Take 3 tablets by mouth every 6 hours as needed for pain. - fluticasone (FLONASE) 50 mcg/actuation nasal spray Use 2 Sprays in each nostril once daily. Rinse mouth after use. - aspirin, enteric coated (ECOTRIN LOW STRENGTH) 81 mg EC tablet Take 1 tablet by mouth once daily. 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] 06/27/2014 Venous insufficiency of both lower extremities *07/01/2014 Benign hypertension [I10] 07/13/2015 Episodic paroxysmal hemicrania, 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 Situational depression [F43.21] 07/03/2016 Pulmonary emphysema (HCC) [J43.9] 12/31/2016 Closed fracture of one rib of left side [S22.32*03/12/2017 07/12/2017 Basal cell carcinoma (BCC) of postauricular reg*01/09/2018 Actinic keratosis [L57.0] 01/09/2018 Acute deep vein thrombosis (DVT) of femoral vei*03/16/2018 12/02/2018 Chronic anticoagulation [Z79.01] 03/16/2018 Pleural effusion [J90] 06/17/2018 History of DVT of lower extremity [Z86.718] 12/02/2018 Intention tremor [G25.2] 12/20/2019 Arthritis of left sternoclavicular joint [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*04/20/2020 Chewing tobacco use [Z72.0] Traumatic pneumothorax [S27.0XXA] 07/16/2021 07/18/2021 Fall from ground level [W18.30XA] 07/16/2021 Closed fracture of one rib of right side with r*07/16/2021 Contusion of right lung [S27.321A] 07/16/2021 At high risk for falls [Z91.81] 07/04/2022 Obesity, Class I, BMI 30-34.9 [E66.811] 10/01/2022 Nicotine use disorder, F17.2 [F17.200] 04/05/2023 Trauma [T14.90XA] 01/01/2024 Fall [W19.XXXA] 01/01/2024 Closed nondisplaced fracture of fourth cervical*01/01/2024 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] 01/01/2024 Spinal cord injury at C1-C4 level (HCC) [S14.10*01/01/2024 Alcohol abuse [F10.10] 01/01/2024 Hypokalemia [E87.6] 01/01/2024 Acute respiratory failure following trauma and *01/02/2024 04/04/2024 Vitamin D deficiency [E55.9] 01/07/2024 BMI 30.0-30.9,adult [Z68.30] 01/07/2024 Central cord syndrome (HCC) [S14.129A] 01/07/2024 History of fusion of cervical spine [Z98.1] Cervical spine fracture (HCC) [S12.9XXA] Other specified glaucoma [H40.89] Encounter Status:Closed by YOSEF YA on 03/14/25 Normal [facility] Basic Metabolic Profile (BMP )on 03-10-2025 BUN/CRE 11.7 RATIO Normal 03-21 [facility] Comment on above: Performed By: #### L 100.0100, L500.2500 #### [facility] [place] [address], [address] Calcium [Mass/Vol] 8.9 mg/dL Normal 7.6-11.0 [facility] Comment on above: Performed By: #### L 100.0100, L500.2500 #### [facility] [address] [place], [address] Chloride [Moles/Vol] 102 mmol/L Normal 98-108 [facility] Comment on above: Performed By: #### L 100.0100, L500.2500 #### [facility] [address] [place], [address] CO2 [Moles/Vol] 25.0 mmol/L Normal 21.0-32.0 [facility] Comment on above: Performed By: #### L 100.0100, L500.2500 #### [facility] [address] [place], [address] Creatinine [Mass/Vol] 0.89 mg/dL Normal 0.70-1.20 [facility] Comment on above: Performed By: #### L 100.0100, L500.2500 #### [facility] [address] [place], [address] ECRCL 86.69 ml/min Normal 50-250 [facility] Comment on above: Performed By: #### L 100.0100, L500.2500 #### [facility] [address] [place], [address] GAP 12 Normal 5-15 [facility] Comment on above: Performed By: #### L 100.0100, L500.2500 #### [facility] [address] [place], [address] GFR/1.73 sq M.predicted among non-blacks MDRD (S/P/Bld) [Vol rate/Area] 87 mL/min/{1.73_m2} Normal >60 [facility] Comment on above: Result Comment: mL/m in/1.73m2 CKD-EPI Creatinine Equation (2020) Performed By: #### L 100.0100, L500.2500 #### [facility] [address] [place], [address] Glucose [Mass/Vol] 87 mg/dL Normal 70-99 [facility] Comment on above: Performed By: #### L 100.0100, L500.2500 #### [facility] [address] [place], [address] Potassium [Moles/Vol] 4.3 mmol/L Normal 3.3-5.1 [facility] Comment on above: Performed By: #### L 100.0100, L500.2500 #### [facility] [address] [place], [address] Sodium [Moles/Vol] 139 mmol/L Normal 133-145 [facility] Comment on above: Performed By: #### L 100.0100, L500.2500 #### [facility] [address] [place], [address] Urea nitrogen [Mass/Vol] 10 mg/dL Normal 4-19 [facility] Comment on above: Performed By: #### L 100.0100, L500.2500 #### [facility] [address] [place], [address] Abdomen/Pelvis without Conto n 03-09-2025 Abdomen/Pelvis without Cont [facility] [address] [place] [address] Abdomen/Pelvis without Cont MR#: [id number] Acct: [id number] Name: VICKI RANDLE Rep #: [id number] : 1945 M 79 From: Andrés Edward MD PCP: Dr. Igor Ge MD Status: REG ER Study: Abdomen/Pelvis without Cont Date of Exam: 01/24 Exam# [id number] Ordering Dr: Pramod Murguia DO PROCEDURE: ABDOMEN/PELVIS WITHOUT CONT 03/09/2025 REASON FOR EXAM: URINARY RETENTION TECHNIQUE: Procedure Code: CTABDPEL Modality: CT Procedure: ABDOMEN/PELVIS WITHOUT CONT Noncontrast technique limits evaluation of the abdominal and pelvic viscera. Coronal and Sagittal reconstruction series were provided. One or more dose reduction techniques were used (e.g., Automated exposure control, adjustment of the mA and/or kV according to patient size, use of iterative reconstruction technique). COMPARISON: 01/01/2024. FINDINGS: Lack of IV and oral contrast limits evaluation. Densities in the posterior medial aspects of the bilateral lower lobes of the lungs are concerning for consolidated airspace infiltrates, similar to the previous study. Probable small right pleural effusion, unchanged.. Bilateral renal cysts, unchanged. No urinary stone or obstructive uropathy. Extensive endovascular stenting within the abdominal aorta and bilateral common iliac arteries, extending through a 5.2 cm fusiform infrarenal abdominal aortic aneurysm, with fusiform dilatation of the bilateral common iliac arteries, unchanged. 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 Mild atherosclerotic calcifications, unchanged. No evidence of a bowel obstruction. A few sigmoid diverticula are noted, without inflammatory changes. The appendix is visualized and normal-appearing. Prominent prostate gland, measuring 5.4 x 5.6 by 5.5 cm, unchanged from the previous study. No intraperitoneal free air or free fluid. Kprx-[id number] thoracolumbar spondylosis, unchanged. Multiple right-sided rib fractures are noted, all of which are nonacute and not significantly changed from the previous study. A single ununited fracture of what is believed to be the right 10th rib is unchanged from the previous study. CT/Abdomen/Pelvis without Cont IMPRESSION: 1. Bibasilar pulmonary densities concerning for airspace infiltrates, similar to the previous study. Probable small right pleural effusion, unchanged. 2. Extensive endovascular stenting of the abdominal aorta and bilateral common iliac arteries. 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 3. Stable prominent prostate gland. 4. Nonacute right-sided rib fractures. Reading Location: [id number] CC: Dr. Pramod Murguia DO; Dr. Igor Ge MD Relocation Services Specialist: Signed Normal [facility] Absolute lymphocyte countOrd ered By: Pramod Murguia on 03-09-2025 Lymphocytes Auto (Unsp spec) [#/Vol] 1.43 10*3/uL 0.83-4.51 [facility] Absolute neutrophil countOrd ered By: Pramod Murguia on 03-09-2025 Neutrophils (Bld) [#/Vol] 6.8 10*3/uL 2.0-7.7 [facility] Anion gap in Serum or Plasma Ordered By: Pramod Murguia on 03-09-2025 Anion gap [Moles/Vol] 12 mmol/L 5-15 [facility] Automated lymphocyte count a s percentage of total leukocytesOrdered By: Pramod Murguia on 03-09-2025 Lymphocytes/100 WBC Auto (Unsp spec) 16.1 % Low 19-41 [facility] BUN/creatinine ratioOrdered By: Pramod Murguia on 03-09-2025 Urea nitrogen/Creatinine [Mass ratio] 11.7 mg/mg 10- [facility] Basophil percentageOrdered B y: Pramod Murguia on 03-09-2025 Basophils/100 WBC (Bld) 0.2 % 0-1 [facility] Bilirubin Test strip Ql (U)O rdered By: Pramod Murguia on 03-09-2025 Bilirubin Ql (U) Negative Negative [facility] CBC W/Diff, Automatedon 10- Absolute Lymph 1.43 X10 3/uL Normal 0.83-4.51 [facility] Comment on above: Performed By: #### L 100.0100, L500.2500 #### [facility] [address] [place], [place], [id number] Absolute Neut 6.8 X10 3/uL Normal 2.0-7.7 [facility] Comment on above: Performed By: #### L 100.0100, L500.2500 #### [facility] [address] [place], [address] Basophils/100 WBC (Bld) 0.2 % Normal 0-1 [facility] Comment on above: Performed By: #### L 100.0100, L500.2500 #### [facility] [address] [place], [address] Eosinophils/100 WBC (Bld) 0.6 % Normal 0-5 [facility] Comment on above: Performed By: #### L 100.0100, L500.2500 #### [facility] [address] [place], [address] Erythrocyte distribution width (RBC) [Ratio] 15.0 % High 11.6-14.6 [facility] Comment on above: Performed By: #### L 100.0100, L500.2500 #### [facility] [address] [place], [address] Hematocrit (Bld) [Volume fraction] 41.4 % Normal 40-54 [facility] Comment on above: Performed By: #### L 100.0100, L500.2500 #### [facility] [address] [place], [address] Hemoglobin (Bld) [Mass/Vol] 12.7 g/dL Low 13.0-16.5 [facility] Comment on above: Performed By: #### L 100.0100, L500.2500 #### [facility] [address] [place], [address] IG% 0.300 Normal 0.0-0.9 [facility] Comment on above: Result Comment: IG% - Immature Granulocytes (promyelocytes, myelocytes and metamyelocytes) > 1% indicates that a LEFT SHIFT is Present. Performed By: #### L 100.0100, L500.2500 #### [facility] [address] [place], [address] Lymphocytes/100 WBC (Bld) 16.1 % Low 19-41 [facility] Comment on above: Performed By: #### L 100.0100, L500.2500 #### [facility] [address] [place], [address] MCH (RBC) [Entitic mass] 25.3 pg Low 27.0-32.0 [facility] Comment on above: Performed By: #### L 100.0100, L500.2500 #### [facility] [address] [place], [address] MCHC (RBC) [Mass/Vol] 30.7 g/dL Low 32-36 [facility] Comment on above: Performed By: #### L 100.0100, L500.2500 #### [facility] [address] [place], [address] MCV (RBC) [Entitic vol] 82.5 fL Normal 80-94 [facility] Comment on above: Performed By: #### L 100.0100, L500.2500 #### [facility] [address] [place], [address] Monocytes/100 WBC (Bld) 6.7 % Normal 0-10 [facility] Comment on above: Performed By: #### L 100.0100, L500.2500 #### [facility] [address] [place], [address] Neutrophils/100 WBC (Bld) 76.1 % High 47-70 [facility] Comment on above: Performed By: #### L 100.0100, L500.2500 #### [facility] [address] [place], [address] Nucleated RBC (Bld) [#/Vol] 0 10*3/uL Normal 0-5 [facility] Comment on above: Performed By: #### L 100.0100, L500.2500 #### [facility] [address] [place], [address] Platelet mean volume (Bld) [Entitic vol] 8.8 fL Normal 6.2-12.0 [facility] Comment on above: Performed By: #### L 100.0100, L500.2500 #### [facility] [address] [place], [address] Platelets (Bld) [#/Vol] 279 10*3/uL Normal 150-450 [facility] Comment on above: Performed By: #### L 100.0100, L500.2500 #### [facility] [facility] [address] [place], [address] RBC (Bld) [#/Vol] 5.02 10*6/uL Normal 4.6-6.2 [facility] Comment on above: Performed By: #### L 100.0100, L500.2500 #### [facility] [address] [place], [address] RDW SD 45.1 fl High 35.1-43.9 [facility] Comment on above: Performed By: #### L 100.0100, L500.2500 #### [facility] [address] [place], [address] WBC (Bld) [#/Vol] 8.9 10*3/uL Normal 4.4-11.0 [facility] Comment on above: Performed By: #### L 100.0100, L500.2500 #### [facility] [address] [place], [address] Carbon dioxide, total [Moles /volume] in Central venous bloodOrdered By: Pramod Murguia on 03-09-2025 CO2 [Moles/Vol] 25.0 mmol/L 21.0-32.0 [facility] Chloride assayOrdered By: Espinoza Murguia on 03-09-2025 Chloride [Moles/Vol] 102 mmol/L 98-108 [facility] Emergency Department Summary on 03-09-2025 Emergency Department Summary [facility] Medical Records Department [address] [place] [address] Emergency Department Summary 03/09/25 MR#: [id number] Acct: [id number] Name: VICKI RANDLE Rep #: [id number] : 1945 79 From: Pramod Murguia DO PCP: Dr. Igor Ge MD Status:REG ER Location: ED HPI History of Present Illness Chief Complaint: Complaint Narrative Narrative: Chief complaint and HPI: 79-year-old male with past medical history of BPH, skin cancer presents for evaluation of urinary retention. Patient states since yesterday evening he has been having difficulty urinating. Does not feel that he is completely voiding. States he has been having some suprapubic abdominal pain secondary to it. Has been taking his Flomax. Does not follow with urology. Denies any fever, chills, shortness of breath, chest pain, nausea, vomiting, back pain. No history of kidney stones. Denies any blood in his urine. Review of systems: See HPI Medications: As listed on the chart Allergies: As listed on the chart PFSH: Per chart Vital signs: As listed on the chart. Reviewed. Physical exam: Gen: A O x3, NAD Head: Normocephalic, atraumatic Eyes: No sclera icterus, conjunctiva clear ENT: Moist mucous membranes CV: RRR, no murmurs Resp: Lungs CTA BL, no w/r/c GI: Abd soft, non-distended, mild tenderness to palpation suprapubically, no r/r/g : No CVA tenderness. Circumcised penis. No penile tenderness or discharge. No penile or testicular swelling. Normal lie and position of the testicles. No testicular tenderness, masses, or skin changes. Cremasteric reflexes intact and equal bilaterally. No rashes. No palpable hernias. Musc: Moves all extremities Skin: Warm, dry Neuro: Alert, oriented, grossly intact, sensation intact Psych: Cooperative, appropriate mood and affect [facility] Medical History AAA (abdominal aortic aneurysm) AAA (abdominal aortic aneurysm) Abdominal aortic aneurysm (AAA) Actinic keratosis Actinic keratosis ACTINIC LESION WITH SEVERE ATYPIA Actinic skin damage ATYPICAL SQUAMOUS EPITHELIAL LESION WITH SOLAR KERATOSIS ATYPICAL SQUAMOUS LESION LEFT PREAURICULAR AREA Basal cell carcinoma Basal cell carcinoma of right postauricular region Carpal tunnel syndrome Cataract Cutaneous horn Former smoker GERD (gastroesophageal reflux disease) Hyperlipidemia Hypertension INFLAMED ACTINIC KERATOSIS INFLAMED ACTINIC KERATOSIS RIGHT VOLAR FOREARM Neoplasm of skin of ear Neoplasm of skin of forearm Neoplasm of skin of hand Neoplasm of skin of left cheek Neoplasm of skin of left lateral forehead Neoplasm of skin of neck Neoplasm of skin of nose Neoplasm of skin of buddhist region Neoplasm of skin of upper arm Neoplasm of skin of wrist Nodule of right lung Other seborrheic keratosis Personal history of skin cancer Prostate enlargement Pulmonary emphysema SCATTERED ACTINIC DAMAGE ON FACE AND UPPER EXTREMITIES Seborrheic keratosis Situational depression Solar keratosis 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4 mg PO DAILY URINE FLOW 4 05/22/18 History fluoxetine 20 mg capsule 20 mg PO DAILY DEPRESSION 12/27/16 05/22/18 History 20 mg brimonidine 0.2 % eye drops 1 drp ophthalmic (eye) BID glacoma 08/05/17 05/22/18 History 1 drp timolol maleate 0.5 % eye drops 1 drp ophthalmic (eye) BID glacoma 08/05/17 05/22/18 History (Timoptic) 1 drp carvedilol 3.125 mg tablet 3.125 mg PO BID #60 tabs 09/10/17 05/22/18 Rx amlodipine 10 mg tablet 2.5 mg PO DAILY 04/21/18 07/30/19 History apixaban 5 mg tablet (Eliquis) 5 mg PO BID 07/15/21 Unknown Histo ry aspirin 81 mg tablet,delayed 81 mg PO QHS 03/26/22 Unknown Hist ory release gabapentin 100 mg capsule 100 mg PO TID 03/26/22 Unknown His tory imiquimod 5 % topical cream packet 4 mm topical 5XW 6 weeks #30 ea 07/03/23 Unknown Rx Allergy/AdvReac Type Severity Reaction Status Date / Time adhesive AdvReac Itching Verified 03/09/25 21:19 atorvastatin (From Lipitor) AdvReac Other Verified 03/09/25 21:19 rosuvastatin calcium (From AdvReac ACHING Verified (more content not included)... Normal [facility] Eosinophil percentageOrdered By: Pramod Murguia on 03-09-2025 Eosinophils/100 WBC (Bld) 0.6 % 0-5 [facility] Erythrocyte distribution wid th ratioOrdered By: Pramod Murguia on 03-09-2025 Erythrocyte distribution width (RBC) [Ratio] 15.0 % High 11.6-14.6 [facility] Erythrocyte distribution wid th standard deviationOrdered By: Pramod Rubio on 03-09-2025 Erythrocyte distribution width (RBC) [Ratio] 45.1 fl High 35.1-43.9 [facility] Glomerular filtration rate ( GFR) estimation/1.73 sq m using serum, plasma, or whole bOrdered By: Pramod Murguia on 03-09-2025 GFR/1.73 sq M.predicted among non-blacks MDRD (S/P/Bld) [Vol rate/Area] 87 mL/min/{1.73_m2} >60 [facility] Comment on above: mL/min/1.73m2 CKD-EP I Creatinine Equation (2020) Hematocrit Auto (Bld) [Volum e fraction]Ordered By: Pramod Murguia on 03-09-2025 Hematocrit (Bld) [Volume fraction] 41.4 % 40-54 [facility] Hemoglobin measurementOrdere d By: Pramod Murguia on 03-09-2025 Hemoglobin (Bld) [Mass/Vol] 12.7 g/dL Low 13.0-16.5 [facility] Hyaline casts LM.LPF (Urine sed) [#/Area]Ordered By: Pramod Murguia on 03-09-2025 Hyaline casts (Urine sed) [#/Area] 0 /[LPF] 0-5 [facility] Immature granulocytes/100 WB C Auto (Bld)Ordered By: Pramod Murguia on 03-09-2025 Immature granulocytes/100 WBC (Bld) 0.300 % 0.0-0.9 [facility] Comment on above: IG% - Immature Granu locytes (promyelocytes, myelocytes and metamyelocytes) > 1% indicates that a LEFT SHIFT is Present. Ketones Test strip Ql (U)Ord ered By: Pramod Murguia on 03-09-2025 Ketones Ql (U) Negative Negative [facility] MCV (mean corpuscular volume ) determinationOrdered By: Pramod Murguia on 03-09-2025 MCV (RBC) [Entitic vol] 82.5 fL 80-94 [facility] Mean corpuscular hemoglobin (MCH) determinationOrdered By: Pramod Murguia on 03-09-2025 MCH (RBC) [Entitic mass] 25.3 pg Low 27.0-32.0 [facility] Mean corpuscular hemoglobin concentration (MCHC) determinationOrdered By: Pramod Murguia on 03-09-2025 MCHC (RBC) [Mass/Vol] 30.7 g/dL Low 32-36 [facility] Mean platelet volume determi nationOrdered By: Pramod Murguia on 03-09-2025 Platelet mean volume (Bld) [Entitic vol] 8.8 fL 6.2-12.0 [facility] Microscopic analysis of urin e for red blood cells (RBC)Ordered By: Pramod Murguia on 03-09-2025 Microscopic analysis of urine for red blood cells (RBC) 0-5 SEEN /hpf 0-5 [facility] Monocyte percentageOrdered B y: Pramod Murguia on 03-09-2025 Monocytes/100 WBC (Bld) 6.7 % 0-10 [facility] Mucus LM Ql (Urine sed)Order ed By: Pramod Murguia on 03-09-2025 Mucus Ql (Urine sed) 0 SEEN /hpf [facility] Neutrophil percentageOrdered By: Pramod Murguia on 03-09-2025 Neutrophils/100 WBC (Bld) 76.1 % High 47-70 [facility] Nitrite Test strip Ql (U)Ord ered By: Pramod Murguia on 03-09-2025 Nitrite Ql (U) Negative Negative [facility] Nucleated red blood cell per centageOrdered By: Pramod Murguia on 03-09-2025 Nucleated RBC/100 WBC (Bld) [Ratio] 0 % 0-5 [facility] Platelet countOrdered By: Espinoza Murguia on 03-09-2025 Platelets (Bld) [#/Vol] 279 10*3/uL 150-450 [facility] Potassium measurement (mass/ volume)Ordered By: Pramod Murguia on 03-09-2025 Potassium (Unsp spec) [Mass/Vol] 4.3 mmol/L 3.3-5.1 [facility] Protein Test strip Ql (U)Ord ered By: Pramod Murguia on 03-09-2025 Protein Ql (U) 15 mg/dl High Negative [facility] RBC Auto (Bld) [#/Vol]Ordere d By: Pramod Murguia on 03-09-2025 RBC (Bld) [#/Vol] 5.02 10*6/uL 4.6-6.2 [facility] Serum creatinine measurement (mass/volume)Ordered By: Pramod Murguia on 03-09-2025 Creatinine [Mass/Vol] 0.89 mg/dL 0.70-1.20 [facility] Serum glucose measurement (m ass/volume)Ordered By: Pramod Murguia on 03-09-2025 Glucose [Mass/Vol] 87 mg/dL 70-99 [facility] Serum or plasma calcium eddie urement (mass/volume)Ordered By: Pramod Rubio on 03-09-2025 Calcium [Mass/Vol] 8.9 mg/dL 7.6-11.0 [facility] Serum or plasma urea nitroge n measurement (mass/volume)Ordered By: Pramod Murguia on 03-09-2025 Urea nitrogen [Mass/Vol] 10 mg/dL 4-19 [facility] Sodium levelOrdered By: Uziel Murguia on 03-09-2025 Sodium [Moles/Vol] 139 mmol/L 133-145 [facility] Squamous epithelial cells de tection in urine sediment by light microscopyOrdered By: Pramod Murguia on 03-09-2025 Epithelial cells.squamous LM Ql (Urine sed) 0-5 SEEN /hpf 0-5 [facility] Urinalysis, Completeon 03-09 BACTERIA RARE Normal None Seen [facility] Comment on above: Order Comment: HAO TER SPECIMEN Performed By: #### L 400.0001 #### [facility] [address] [place], [address] CAST,HYALINE 0-5 SEEN Normal 0-5 [facility] Comment on above: Order Comment: HAO TER SPECIMEN Performed By: #### L 400.0001 #### [facility] [address] [place], [address] EPI,SQUAMOUS 0-5 SEEN Normal 0-5 [facility] Comment on above: Order Comment: HAO TER SPECIMEN Performed By: #### L 400.0001 #### [facility] [address] [place], [address] WBC 0-5 SEEN Normal 0-5 [facility] Comment on above: Order Comment: HAO TER SPECIMEN Performed By: #### L 400.0001 #### [facility] [address] [place], [address] RBC 0-5 SEEN Normal 0-5 [facility] Comment on above: Order Comment: HAO TER SPECIMEN Performed By: #### L 400.0001 #### [facility] [address] [place], [place], [address] Mucus Ql (Urine sed) 0 SEEN Normal [facility] Comment on above: Order Comment: HAO TER SPECIMEN Performed By: #### L 400.0001 #### [facility] [address] [place], [place], [address] Urine clarityOrdered By: Lyndon Murguia on 03-09-2025 Clarity (U) Clear Clear [facility] Urine color determinationOrd ered By: Pramod Murguia on 03-09-2025 Color (U) Yellow Yellow [facility] Urine glucose detectionOrder ed By: Pramod Murguia on 03-09-2025 Glucose Ql (U) Normal mg/dl Normal [facility] Urine leukocyte esterase det ection by dipstickOrdered By: Pramod Murguia on 03-09-2025 Leukocyte esterase Test strip Ql (U) Negative Negative [facility] Urine pHOrdered By: Pramod Allan on 03-09-2025 pH (U) 7.0 [pH] 5.0 - 8.0 [facility] Urine sediment bacteria coun t by microscopy (number/high power field)Ordered By: Pramod Murguia on 03-09-2025 Bacteria LM.HPF (Urine sed) [#/Area] RARE /hpf None Seen [facility] Urine specific gravity measu rementOrdered By: Pramod Murguia on 03-09-2025 Specific gravity (U) [Rel density] 1.010 1.002-1.030 [facility] Urine urobilinogen measureme ntOrdered By: Pramod Murguia on 03-09-2025 Urobilinogen Ql (U) Normal mg/dl Normal [facility] White blood cell (WBC) count Ordered By: Pramod Murguia on 03-09-2025 WBC (Bld) [#/Vol] 8.9 10*3/uL 4.4-11.0 [facility] White blood cell countOrdere d By: Pramod Murguia on 03-09-2025 White blood cell count 0-5 SEEN /hpf 0-5 [facility] CBC W Auto Differential pane l (Bld)on 02-01-2025 Basophils (Bld) [#/Vol] 10*3/uL Normal <0.11 [facility] Comment on above: Order Comment: Speci men Type: BLOOD SPECIMENOrdering Facility: [facility] Address: [address] [place] [address] Performed By: #### 5 7021-8 ####[facility] LABCLIA [id number] [place] [address] [place] Basophils/100 WBC (Bld) 0.3 % Normal [facility] Comment on above: Order Comment: Speci men Type: BLOOD SPECIMENOrdering Facility: [facility] Address: [address] [place] [address] Performed By: #### 5 7021-8 ####[facility]CLIA [id number] [place] [address] [place] Differential cell count method Nom (Bld) Auto Normal [facility] Comment on above: Order Comment: Speci men Type: BLOOD SPECIMENOrdering Facility: [facility] Address: [address] [place] [address] Performed By: #### 5 7021-8 ####[facility]CLIA [id number] [place] [address] [place] Eosinophils (Bld) [#/Vol] 0.16 10*3/uL Normal <0.46 [facility] Comment on above: Order Comment: Speci men Type: BLOOD SPECIMENOrdering Facility: [facility] Address: [address] [place] [address] Performed By: #### 5 7021-8 ####[facility] LABCLIA [id number] [id number] [address] [place] Eosinophils/100 WBC (Bld) 2.4 % Normal [facility] Comment on above: Order Comment: Speci men Type: BLOOD SPECIMENOrdering Facility: [facility] Address: [address] [place] [address] Performed By: #### 5 7021-8 ####[facility]CLIA [id number] [place] [address] [place] Erythrocyte distribution width (RBC) [Ratio] 15.5 % High 11.5-15.0 [facility] Comment on above: Order Comment: Speci men Type: BLOOD SPECIMENOrdering Facility: [facility] Address: [address] [place] [address] Performed By: #### 5 7021-8 ####[facility] LABIA [id number] [address], [place] [address] [place] Hematocrit (Bld) [Volume fraction] 40.0 % Normal 39.0-51.0 [facility] Comment on above: Order Comment: Speci men Type: BLOOD SPECIMENOrdering Facility: [facility] Address: [address] [place] [address] Performed By: #### 5 7021-8 ####[facility] LABIA [id number] [address], [place] [address] [place] Hemoglobin (Bld) [Mass/Vol] 11.8 g/dL Low 13.0-17.0 [facility] Comment on above: Order Comment: Speci men Type: BLOOD SPECIMENOrdering Facility: [facility] Address: [address] [place] [address] Performed By: #### 5 7021-8 ####[facility] LABIA [id number] [place] [address] [place] Immature granulocytes (Bld) [#/Vol] 10*3/uL Normal <0.10 [facility] Comment on above: Order Comment: Speci men Type: BLOOD SPECIMENOrdering Facility: [facility] Address: [address] [place] [address] Performed By: #### 5 7021-8 ####[facility] LABCLIA [id number] [place] [address] [place] Immature granulocytes/100 WBC (Bld) 0.3 % Normal [facility] Comment on above: Order Comment: Speci men Type: BLOOD SPECIMENOrdering Facility: [facility] Address: [address] [place] [address] Performed By: #### 5 7021-8 ####[facility] LABCLIA [id number] [place] [address] [place] Lymphocytes (Bld) [#/Vol] 1.60 10*3/uL Normal 1.00-4.00 [facility] Comment on above: Order Comment: Speci men Type: BLOOD SPECIMENOrdering Facility: [facility] Address: [address] [place] [address] Performed By: #### 5 7021-8 ####[facility] LABIA [id number] [place] [address] [place] Lymphocytes/100 WBC (Bld) 23.7 % Normal [facility] Comment on above: Order Comment: Speci men Type: BLOOD SPECIMENOrdering Facility: [facility] Address: [address] [place] [address] Performed By: #### 5 7021-8 ####[facility] LABIA [id number] [place] [address] [place] MCH (RBC) [Entitic mass] 24.6 pg Low 26.0-34.0 [facility] Comment on above: Order Comment: Speci men Type: BLOOD SPECIMENOrdering Facility: [facility] Address: [address] [place] [address] Performed By: #### 5 7021-8 ####[facility] LABCLIA [id number] [place] [address] [place] MCHC (RBC) [Mass/Vol] 29.5 g/dL Low 30.5-36.0 [facility] Comment on above: Order Comment: Speci men Type: BLOOD SPECIMENOrdering Facility: [facility] Address: [address] [place] [address] Performed By: #### 5 7021-8 ####[facility] LABCLIA [id number] [place] [address] [place] MCV (RBC) [Entitic vol] 83.3 fL Normal 80.0-100.0 [facility] Comment on above: Order Comment: Speci men Type: BLOOD SPECIMENOrdering Facility: [facility] Address: [address] [place] [address] Performed By: #### 5 7021-8 ####[facility] LABCLIA [id number] [place] [address] [place] Monocytes (Bld) [#/Vol] 0.51 10*3/uL Normal <0.87 [facility] Comment on above: Order Comment: Speci men Type: BLOOD SPECIMENOrdering Facility: [facility] Address: [address] [place] [address] Performed By: #### 5 7021-8 ####[facility] LABCLIA [id number] [address] [place] Monocytes/100 WBC (Bld) 7.6 % Normal [facility] Comment on above: Order Comment: Speci men Type: BLOOD SPECIMENOrdering Facility: [facility] Address: [address] [place] [address] Performed By: #### 5 7021-8 ####[facility]CLIA [id number] [place] [address] [place] Neutrophils (Bld) [#/Vol] 4.44 10*3/uL Normal 1.45-7.50 [facility] Comment on above: Order Comment: Speci men Type: BLOOD SPECIMENOrdering Facility: [facility] Address: [address] [place] [address] Performed By: #### 5 7021-8 ####[facility] LABCLIA [id number] [place] [address] [place] Neutrophils/100 WBC (Bld) 65.7 % Normal [facility] Comment on above: Order Comment: Speci men Type: BLOOD SPECIMENOrdering Facility: [facility] Address: [address] [place] [address] Performed By: #### 5 7021-8 ####[facility] LABIA [id number] [place] [address] [place] Nucleated RBC (Bld) [#/Vol] 10*3/uL Normal <0.01 [facility] Comment on above: Order Comment: Speci men Type: BLOOD SPECIMENOrdering Facility: [facility] Address: [address] [place] [address] Performed By: #### 5 7021-8 ####[facility] LABIA [id number] [place] [address] [place] Nucleated RBC/100 WBC (Bld) [Ratio] 0.0 /100 WBC Normal [facility] Comment on above: Order Comment: Speci men Type: BLOOD SPECIMENOrdering Facility: [facility] Address: [address] [place] [address] Performed By: #### 5 7021-8 ####[facility] LABCLIA [id number] [place] [address] [place] Platelet mean volume (Bld) [Entitic vol] 10.4 fL Normal 9.0-12.7 [facility] Comment on above: Order Comment: Speci men Type: BLOOD SPECIMENOrdering Facility: [facility] Address: [address] [place] [address] Performed By: #### 5 7021-8 ####[facility] LABCLIA [id number] [place] [id number] [place] Platelets (Bld) [#/Vol] 228 10*3/uL Normal 150-400 [facility] Comment on above: Order Comment: Speci men Type: BLOOD SPECIMENOrdering Facility: [facility] Address: [address] [place] [address] Performed By: #### 5 7021-8 ####[facility] [id number] [place] [address] [place] RBC (Bld) [#/Vol] 4.80 10*6/uL Normal 4.20-6.00 [facility] Comment on above: Order Comment: Speci men Type: BLOOD SPECIMENOrdering Facility: [facility] Address: [address] [place] [address] Performed By: #### 5 7021-8 ####[facility] [id number] [place] [address] [place] WBC (Bld) [#/Vol] 6.75 10*3/uL Normal 3.70-11.00 [facility] Comment on above: Order Comment: Speci men Type: BLOOD SPECIMENOrdering Facility: [facility] Address: [address] [place] [address] Performed By: #### 5 7021-8 ####[facility] [id number] [place] [id number] [place] CNOVon 02-01-2025 CNOV Office Visit (FRANKLYNWS) VICKI RANDLE ([id number]) 1945 M Date Time Provider Department 02/01/25 2:20 PM ANNE BETHEA During your visit today, we recorded the following information about you: Pulse Respiration Blood pressure Weight 80/minute 18/minute 104/62 109.3 kg Anne Bethea APRN.CNP 02/01/2025 2:53 PM Signed 02/01/2025 Patient presents with: F/U 3 Month Recording using ambient [employer] software for draft documentation of the visit was discussed with the patient/authorized labor relations representative; all questions welcomed and answered. Patient/authorized labor relations representative agreed to proceed SUBJECTIVE: This is a 79 year old that is here today for Above Complaints.. BPH: - Adrian Randle is taking Flomax and finasteride daily. - Adrian denies dysuria, hematuria, or urinary retention. Hyperlipidemia: - Adrian administers Repatha injections every 2 weeks. Skin Cancer: - Adrian has a history of skin cancer. - Adrian had a lesion removed from his back last year by Dr. Mascorro. - Adrian was referred to dermatology in September for a suspicious lesion on the neck; has not followed up. 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 Dyspnea: - Adrian has chronic dyspnea, unchanged in severity. Nutrition: - Adrian is eating a lot of meat and peanut butter. - Adrian is not supplementing with Boost or Ensure due to cost. Social History: - Adrian chews tobacco, approximately one can every 2 days. - Adrian consumes a couple of beers nightly. Additional Information: - Adrian missed a recent appointment with Dr. Hess in [place] for neck issues; last seen in July. - Adrian denies recent falls, hospitalizations, or illnesses. PAST MEDICAL HISTORY Diagnosis Date AAA (abdominal aortic aneurysm) 02/06/2012 01/10/17: CT abd 4.8 cm. s/p aortobiliac stent.-Dr. Johan Berg Actinic keratosis On [place], Dr. Dudley Acute deep vein thrombosis (DVT) of femoral vein of left lower extremity (HCC) 03/16/2018 At high risk for falls Basal cell carcinoma 2020 left cheek Benign essential tremor Benign hypertension 07/13/2015 BPH with obstruction/lower urinary tract symptoms Bruit right carotid artery Cervical spine fracture (HCC) C4 s/p fusion Chewing tobacco use Class 1 obesity due to excess calories without serious comorbidity with body mass index (BMI) of 33.0 to 33.9 in adult Closed rib fracture 01/2023 right rib fracture after fall Esophageal reflux Gastroesophageal reflux Facet arthritis of lumbar region 06/27/2014 History of carpal tunnel surgery 1990s History of fusion of cervical spine Hypertrophy of prostate without urinary obstruction and other lower urinary tract symptoms (LUTS) Hypertrophy of the prostate w/o obstruction Left leg DVT (HCC) 02/19/2018 Mixed hyperlipidemia Hyperlipidemia 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 evolocumab (REPATHA SURECLICK) 140 mg/mL pen injector Inject 140 mg subcutaneously every 2 weeks. gabapentin (NEURONTIN) 300 mg capsule Take 1 capsule by mouth three times a day for 30 days. melatonin 3 mg tablet Take 3 tablets by mouth daily at bedtime. VLCLGWGS-ZIXNDDTCH-X EXAMETH 3.5 MG/ML-10,000 UNIT/ML-0.1% EYE DROPS Use 1 Drop in both eyes four times daily. acetaminophen (TYLENOL) 325 mg tablet Take 3 tablets by mouth every 6 hours as needed for pain. fluticasone (FLONASE) 50 mcg/actuation nasal spray Use 2 Sprays in each nostril once daily. Rinse mouth after use. aspirin, enteric coated (ECOTRIN LOW STRENGTH) 81 mg EC tablet Take 1 tablet by mouth once daily. tamsulosin (FLOMAX) 0.4 mg Take 1 capsule by mouth once daily. No current facility-administere d medications for this visit. Medications and allergies reviewed by this provider. SOCIAL HISTORY SOCIAL HISTORY[1] REVIEW OF SYSTEMS All other reviewed and negative other than HPI. OBJECTIVE: BP 104/62 Pulse 80 Resp 18 Wt 109.3 kg (241 lb) SpO2 92% BMI 31.80 kg/m? . Vital signs reviewed by this provider. APPEARANCE Well appearing, alert, in no acute distress, well-hydrated, well nourished. EYES conjunctiva and sclera normal. HEART RRR with normal S1 and S2, no murmurs, no gallops, no JVD appreciated LUNG clear t (more content not included)... Normal [facility] Comprehensive metabolic 2000 panelon 02-01-2025 Albumin [Mass/Vol] 3.6 g/dL Low 3.9-4.9 [facility] Comment on above: Order Comment: Speci men Type: BLOOD SPECIMENOrdering Facility: [facility] Address: [address] [place] [address] Performed By: #### 2 4323-8 ####[facility] LABCLIA [id number] [place] [address] [place] ALP [Catalytic activity/Vol] 159 U/L High 38-113 [facility] Comment on above: Order Comment: Speci men Type: BLOOD SPECIMENOrdering Facility: [facility] Address: [address] [place] [address] Performed By: #### 2 4323-8 ####[facility] LABCLIA [id number] [place] [address] [place] ALT [Catalytic activity/Vol] 8 U/L Low 10-54 [facility] Comment on above: Order Comment: Speci men Type: BLOOD SPECIMENOrdering Facility: [facility] Address: [address] [place] [address] Performed By: #### 2 4323-8 ####[facility] LABCLIA [id number] [place] [id number] [place] Anion gap [Moles/Vol] 10 mmol/L Normal 8-15 [facility] Comment on above: Order Comment: Speci men Type: BLOOD SPECIMENOrdering Facility: [facility] Address: [address] [place] [address] Performed By: #### 2 4323-8 ####[facility] LABCLIA [id number] [place] [id number] [place] AST [Catalytic activity/Vol] 13 U/L Low 14-40 [facility] Comment on above: Order Comment: Speci men Type: BLOOD SPECIMENOrdering Facility: [facility] Address: [address] [place] [address] Performed By: #### 2 4323-8 ####[facility] LABCLIA [id number] [place] [address] [place] Bilirubin [Mass/Vol] 0.2 mg/dL Normal 0.2-1.3 [facility] Comment on above: Order Comment: Speci men Type: BLOOD SPECIMENOrdering Facility: [facility] Address: [address] [place] [address] Performed By: #### 2 4323-8 ####[facility] LABCLIA [id number] [place] [address] [place] Calcium [Mass/Vol] 9.0 mg/dL Normal 8.5-10.2 [facility] Comment on above: Order Comment: Speci men Type: BLOOD SPECIMENOrdering Facility: [facility] Address: [address] [place] [address] Performed By: #### 2 4323-8 ####[facility] LABCLIA [id number] [place] [address] [place] Chloride [Moles/Vol] 103 mmol/L Normal 98-107 [facility] Comment on above: Order Comment: Speci men Type: BLOOD SPECIMENOrdering Facility: [facility] Address: [address] [place] [address] Performed By: #### 2 4323-8 ####[facility] LABCLIA [id number] [place] [id number] [place] CO2 [Moles/Vol] 27 mmol/L Normal 22-30 [facility] Comment on above: Order Comment: Speci men Type: BLOOD SPECIMENOrdering Facility: [facility] Address: [address] [place] [id number] Performed By: #### 2 4323-8 ####[facility] LABIA [id number] [address] [address] [place] Creatinine [Mass/Vol] 0.89 mg/dL Normal 0.73-1.22 [facility] Comment on above: Order Comment: Speci men Type: BLOOD SPECIMENOrdering Facility: [facility] Address: [address] [place] [address] Performed By: #### 2 4323-8 ####[facility] LABIA [id number] [place] [address] [place] eGFRcr SerPlBld CKD-EPI 2020 87 mL/min/1.73m??? Normal >=60 [facility] Comment on above: Order Comment: Speci men Type: BLOOD SPECIMENOrdering Facility: [facility] Address: [address] [place] [address] Result Comment: Beatrice mated Glomerular Filtration Rate (eGFR) is calculated using the 2020 CKD-EPI creatinine equation. This equation utilizes serum creatinine, sex, and age as parameters. The creatinine assay has traceable calibration to isotope dilution-mass spectrometry. Refer to KDIGO guidelines for clinical interpretation. In patients with unstable renal function, e.g. those with acute kidney injury, the eGFR may not accurately reflect actual GFR. Performed By: #### 2 4323-8 ####[facility] LABIA [id number] [address] [address] [place] Glucose [Mass/Vol] 80 mg/dL Normal 74-99 [facility] Comment on above: Order Comment: Speci men Type: BLOOD SPECIMENOrdering Facility: [facility] Address: [address] [place] [address] Result Comment: The [place] Diabetes Association (ADA) provides guidance for cutoff values for fasting glucose and random glucose. The ADA defines fasting as no caloric intake for at least 8 hours. Fasting plasma glucose results between 100 to 125 [...] Standards of Medical Care in Diabetes 2016, [place] Diabetes Association. Diabetes Care. 2016.39(Suppl 1). Performed By: #### 2 4323-8 ####[facility] LABCLIA [id number] [place] [address] [place] Potassium [Moles/Vol] 4.0 mmol/L Normal 3.7-5.1 [facility] Comment on above: Order Comment: Speci men Type: BLOOD SPECIMENOrdering Facility: [facility] Address: [address] [place] [address] Performed By: #### 2 4323-8 ####[facility] LABIA [id number] [place] [id number] [place] Protein [Mass/Vol] 7.2 g/dL Normal 6.3-8.0 [facility] Comment on above: Order Comment: Speci men Type: BLOOD SPECIMENOrdering Facility: [facility] Address: [address] [place] [address] Performed By: #### 2 4323-8 ####[facility] LABCLIA [id number] [place] [id number] [place] Sodium [Moles/Vol] 140 mmol/L Normal 136-144 [facility] Comment on above: Order Comment: Speci men Type: BLOOD SPECIMENOrdering Facility: [facility] Address: [address] [place] [address] Performed By: #### 2 4323-8 ####[facility] LABCLIA [id number] [place] [id number] [place] Urea nitrogen [Mass/Vol] 11 mg/dL Normal 9-24 [facility] Comment on above: Order Comment: Speci men Type: BLOOD SPECIMENOrdering Facility: [facility] Address: [address] [place] [address] Performed By: #### 2 4323-8 ####[facility] LABCLIA [id number] PATRICK LEE [address] [place] Hilary 11-01-2024 CNPN Telephone (INTMWS) VICKI RANDLE ([id number]) 1945 M Date Time Provider Department 11/01/24 KANCHAN GE INTMWS During your visit today, we recorded the following information about you: Stephanie Stephens LPN 11/01/2024 11:40 AM Signed Electronic PA rec'd and completed for repatha. This was approved. Pharmacy notified. Prior authorization approved Payer: [employer] [phone] Note from payer: CaseId:[id number];Stat us:Approved;Review Type:Prior Auth;Coverage Start Date:10/02/2024;Murray rage End Date:11/01/2025; Approval Details Authorized from October 02, 2024 to November 01, 2025 Electronic appeal: Not supported Allergies As of Date: 11/01/2024 Noted Allergy Reaction LIPITOR (ATORVASTATIN CALCIUM) 03/11/2005 5 - Intolerance ROSUVASTATIN CALCIUM 03/02/2017 5 - Intolerance NUZFDKT-SAP-AIW REDUCTASE INHIBIT*01/10/2018 17 - Myalgia Date Reviewed: 10/27/2024 Reviewed by: DARLENE DOMINGO - Fully Assessed Reason for Visit: Insurance Authorization [[id number]] Prescriptions as of 11/01/2024 - finasteride (PROSCAR) 5 mg tablet Take 5 mg by mouth once daily. - evolocumab (REPATHA SURECLICK) 140 mg/mL pen injector Inject 140 mg subcutaneously every 2 weeks. - tamsulosin (FLOMAX) 0.4 mg Take 1 capsule by mouth once daily. - gabapentin (NEURONTIN) 300 mg capsule Take 1 capsule by mouth three times a day for 30 days. - melatonin 3 mg tablet Take 3 tablets by mouth daily at bedtime. - SKJVVKXP-KZAHXZJCY-Z EXAMETH 3.5 MG/ML-10,000 UNIT/ML-0.1% EYE DROPS Use 1 Drop in both eyes four times daily. - acetaminophen (TYLENOL) 325 mg tablet Take 3 tablets by mouth every 6 hours as needed for pain. - fluticasone (FLONASE) 50 mcg/actuation nasal spray Use 2 Sprays in each nostril once daily. Rinse mouth after use. - aspirin, enteric coated (ECOTRIN LOW STRENGTH) 81 mg EC tablet Take 1 tablet by mouth once daily. 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] 06/27/2014 Venous insufficiency of both lower extremities *07/01/2014 Benign hypertension [I10] 07/13/2015 Episodic paroxysmal hemicrania, 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 Situational depression [F43.21] 07/03/2016 Pulmonary emphysema (HCC) [J43.9] 12/31/2016 Closed fracture of one rib of left side [S22.32*03/12/2017 07/12/2017 Basal cell carcinoma (BCC) of postauricular reg*01/09/2018 Actinic keratosis [L57.0] 01/09/2018 Acute deep vein thrombosis (DVT) of femoral vei*03/16/2018 12/02/2018 Chronic anticoagulation [Z79.01] 03/16/2018 Pleural effusion [J90] 06/17/2018 History of DVT of lower extremity [Z86.718] 12/02/2018 Intention tremor [G25.2] 12/20/2019 Arthritis of left sternoclavicular joint [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*04/20/2020 Chewing tobacco use [Z72.0] Traumatic pneumothorax [S27.0XXA] 07/16/2021 07/18/2021 Fall from ground level [W18.30XA] 07/16/2021 Closed fracture of one rib of right side with r*07/16/2021 Contusion of right lung [S27.321A] 07/16/2021 At high risk for falls [Z91.81] 07/04/2022 Obesity, Class I, BMI 30-34.9 [E66.811] 10/01/2022 Nicotine use disorder, F17.2 [F17.200] 04/05/2023 Trauma [T14.90XA] 01/01/2024 Fall [W19.XXXA] 01/01/2024 Closed nondisplaced fracture of fourth cervical*01/01/2024 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 2000 panelon 10-28-2024 Albumin [Mass/Vol] 3.5 g/dL Low 3.9 - 4.9 g/dL [facility] ALP [Catalytic activity/Vol] 184 U/L High 38 - 113 U/L [facility] ALT [Catalytic activity/Vol] 7 U/L Low 10 - 54 U/L [facility] Anion gap [Moles/Vol] 12 mmol/L 8 - 15 mmol/L [facility] AST [Catalytic activity/Vol] 15 U/L 14 - 40 U/L [facility] Bilirubin [Mass/Vol] 0.3 mg/dL 0.2 - 1 .3 mg/dL [facility] Calcium [Mass/Vol] 9.1 mg/dL 8.5 - 10. 2 mg/dL [facility] Chloride [Moles/Vol] 103 mmol/L 98 - 10 7 mmol/L [facility] CO2 [Moles/Vol] 25 mmol/L 22 - 30 mmol/L [facility] Creatinine [Mass/Vol] 0.93 mg/dL 0.73 - 1.22 mg/dL [facility] GFR/1.73 sq M.predicted among non-blacks MDRD (S/P/Bld) [Vol rate/Area] 84 mL/min/{1.73_m2} - PINF [facility] Comment on above: Estimated Glomerular Filtration Rate (eGFR) is calculated using the 2020 CKD-EPI creatinine equation. This equation utilizes serum creatinine, sex, and age as parameters. The creatinine assay has traceable calibration to isotope dilution-mass spectrometry. Refer to KDIGO guidelines for clinical interpretation. In patients with unstable renal function, e.g. those with acute kidney injury, the eGFR may not accurately reflect actual GFR. Glucose [Mass/Vol] 94 mg/dL 74 - 99 mg/dL [facility] Comment on above: The [place] Diabete s Association (ADA) provides guidance for cutoff values for fasting glucose and random glucose. The ADA defines fasting as no caloric intake for at least 8 hours. Fasting plasma glucose results between 100 to 125 [...] Standards of Medical Care in Diabetes 2016, [place] Diabetes Association. Diabetes Care. 2016.39(Suppl 1). Interpretation and review of laboratory results Abnormal [facility] Potassium [Moles/Vol] 4.4 mmol/L 3.7 - 5.1 mmol/L [facility] Protein [Mass/Vol] 7.3 g/dL 6.3 - 8.0 g/dL [facility] Sodium [Moles/Vol] 140 mmol/L 136 - 144 mmol/L [facility] Urea nitrogen [Mass/Vol] 13 mg/dL 9 - 24 mg/dL [facility] LIPID PANEL, NONFASTINGon Cholesterol [Mass/Vol] 146 mg/dL NINF - 200 mg/dL [facility] Comment on above: <200 mg/dL, Desirabl e 200-239 mg/dL, Borderline high >239 mg/dL, High HDL Cholesterol, Nonfasting 41 mg/dL 39 - PINF mg/dL [facility] Comment on above: 40-59 mg/dL, Accepta ble >59 mg/dL, High: Negative risk factor for coronary heart disease <40 mg/dL, Low: Positive risk factor for coronary heart disease Interpretation and review of laboratory results Normal [facility] LDL Cholesterol Calculated, Nonfasting 88 mg/dL NINF - 100 mg/dL [facility] Comment on above: <100 mg/dL, Optimal 100-129 mg/dL, Near optimal/above optimal 130-159 mg/dL, Borderline high 160-189 mg/dL, High >189 mg/dL, Very high Secondary prevention optimal LDL Cholesterol levels are recommended to be <70 mg/dL LDL cholesterol is calculated using the Wilson-NIH equation. LDL/HDL Ratio, Nonfasting 2.15 mg/dL NINF - 2.54 mg/dL [facility] Comment on above: Reference: 1. National Cholesterol Education Program ATP III Guideline At-A-Glance Quick Desk Reference: National Heart, Lung, and Blood [place]. National Institutes of Health. 2001: NIH Publication No. 01-3305. 2. An International Atherosclerosis Society position paper: global recommendations for the management of dyslipidemia: executive summary, Atherosclerosis. 2014: 232(2):410-413. Non HDL Cholesterol, Nonfasting 105 mg/dL NINF - 130 mg/dL [facility] Comment on above: <130 mg/dL, Optimal 130-159 mg/dL, Near optimal/above optimal 160-189 mg/dL, Borderline high 190-219 mg/dL, High >219 mg/dL, Very high Secondary prevention optimal non HDL Cholesterol levels are recommended to be <100 mg/dL Total Chol/HDL Ratio, Nonfasting 3.56 mg/dL NINF - 5.10 mg/dL [facility] Triglycerides, Nonfasting 88 mg/dL NINF - 150 mg/dL [facility] Comment on above: <150 mg/dL, Normal 150-199 mg/dL, Borderline high 200-499 mg/dL, High >499 mg/dL, Very high VLDL Cholesterol, Nonfasting 14 mg/dL NINF - 30 mg/dL [facility] No Panel Informationon 10-28 [facility] CBC W Auto Differential pane l (Bld)on 10-27-2024 Basophils (Bld) [#/Vol] 0.03 10*3/uL [facility] Basophils/100 WBC (Bld) 0.4 % [facility] Differential cell count method Nom (Bld) Auto [facility] Eosinophils (Bld) [#/Vol] 0.1 10*3/uL [facility] Eosinophils/100 WBC (Bld) 1.3 % [facility] Erythrocyte distribution width (RBC) [Ratio] 15.5 % High 11.5 - 15.0 % [facility] Hematocrit (Bld) [Volume fraction] 42.4 % 39.0 - 51.0 % [facility] Hemoglobin (Bld) [Mass/Vol] 12.3 g/dL Low 13.0 - 17.0 g/dL [facility] Immature granulocytes (Bld) [#/Vol] [facility] Immature granulocytes/100 WBC (Bld) 0.3 % [facility] Interpretation and review of laboratory results Abnormal [facility] Lymphocytes (Bld) [#/Vol] 1.58 10*3/uL [facility] Lymphocytes/100 WBC (Bld) 20.1 % [facility] MCH (RBC) [Entitic mass] 23.6 pg Low 26.0 - 34.0 pg [facility] MCHC (RBC) [Mass/Vol] 29 g/dL Low 30.5 - 36.0 g/dL [facility] MCV (RBC) [Entitic vol] 81.4 fL 80.0 - 100.0 fL [facility] Monocytes (Bld) [#/Vol] 0.53 10*3/uL [facility] Monocytes/100 WBC (Bld) 6.7 % [facility] Neutrophils (Bld) [#/Vol] 5.61 10*3/uL [facility] Neutrophils/100 WBC (Bld) 71.2 % [facility] Nucleated RBC (Bld) [#/Vol] NINF [facility] Nucleated RBC/100 WBC (Bld) [Ratio] 0 % /100 WBC [facility] Platelet mean volume (Bld) [Entitic vol] 10.9 fL 9.0 - 12.7 fL [facility] Platelets (Bld) [#/Vol] 253 10*3/uL [facility] RBC (Bld) [#/Vol] 5.21 10*6/uL 4.20 - 6.0 0 m/uL [facility] WBC (Bld) [#/Vol] 7.87 10*3/uL [facility] Basophils (Bld) [#/Vol] 0.03 10*3/uL Normal <0.11 [facility] Comment on above: Order Comment: Speci men Type: BLOOD SPECIMENOrdering Facility: [facility] Address: [address] [place] [address] Performed By: #### 5 7021-8 ####[facility] [id number] [place] [address] [place] Basophils/100 WBC (Bld) 0.4 % Normal [facility] Comment on above: Order Comment: Speci men Type: BLOOD SPECIMENOrdering Facility: [facility] Address: [address] [place] [address] Performed By: #### 5 7021-8 ####[facility] LABIA [id number] [place] [address] [place] Differential cell count method Nom (Bld) Auto Normal [facility] Comment on above: Order Comment: Speci men Type: BLOOD SPECIMENOrdering Facility: [facility] Address: [address] [place] [address] Performed By: #### 5 7021-8 ####[facility] LABCLIA [id number] [address], [place] [address] [place] Eosinophils (Bld) [#/Vol] 0.10 10*3/uL Normal <0.46 [facility] Comment on above: Order Comment: Speci men Type: BLOOD SPECIMENOrdering Facility: [facility] Address: [address] [place] [address] Performed By: #### 5 7021-8 ####[facility] LABCLIA [id number] [address], [place] [address] [place] Eosinophils/100 WBC (Bld) 1.3 % Normal [facility] Comment on above: Order Comment: Speci men Type: BLOOD SPECIMENOrdering Facility: [facility] Address: [address] [place] [address] Performed By: #### 5 7021-8 ####[facility] LABCLIA [id number] [address], [facility] [place] Erythrocyte distribution width (RBC) [Ratio] 15.5 % High 11.5-15.0 [facility] Comment on above: Order Comment: Speci men Type: BLOOD SPECIMENOrdering Facility: [facility] Address: [address] [place] [address] Performed By: #### 5 7021-8 ####[facility] LABCLIA [id number] [address], [facility] [place] Hematocrit (Bld) [Volume fraction] 42.4 % Normal 39.0-51.0 [facility] Comment on above: Order Comment: Speci men Type: BLOOD SPECIMENOrdering Facility: [facility] Address: [address] [place] [address] Performed By: #### 5 7021-8 ####[facility] LABCLIA [id number] [address], [facility] [place] Hemoglobin (Bld) [Mass/Vol] 12.3 g/dL Low 13.0-17.0 [facility] Comment on above: Order Comment: Speci men Type: BLOOD SPECIMENOrdering Facility: [facility] Address: [address] [place] [address] Performed By: #### 5 7021-8 ####[facility] LABCLIA [id number] [place] [address] [place] Immature granulocytes (Bld) [#/Vol] 10*3/uL Normal <0.10 [facility] Comment on above: Order Comment: Speci men Type: BLOOD SPECIMENOrdering Facility: [facility] Address: [address] [place] [address] Performed By: #### 5 7021-8 ####[facility] LABCLIA [id number] [place] [address] [place] Immature granulocytes/100 WBC (Bld) 0.3 % Normal [facility] Comment on above: Order Comment: Speci men Type: BLOOD SPECIMENOrdering Facility: [facility] Address: [address] [place] [address] Performed By: #### 5 7021-8 ####[facility] LABCLIA [id number] [place] [address] [place] Lymphocytes (Bld) [#/Vol] 1.58 10*3/uL Normal 1.00-4.00 [facility] Comment on above: Order Comment: Speci men Type: BLOOD SPECIMENOrdering Facility: [facility] Address: [address] [place] [address] Performed By: #### 5 7021-8 ####[facility] LABCLIA [id number] [place] [address] [place] Lymphocytes/100 WBC (Bld) 20.1 % Normal [facility] Comment on above: Order Comment: Speci men Type: BLOOD SPECIMENOrdering Facility: [facility] Address: [address] [place] [address] Performed By: #### 5 7021-8 ####[facility] LABIA [id number] [place] [address] [place] MCH (RBC) [Entitic mass] 23.6 pg Low 26.0-34.0 [facility] Comment on above: Order Comment: Speci men Type: BLOOD SPECIMENOrdering Facility: [facility] Address: [address] [place] [address] Performed By: #### 5 7021-8 ####[facility] LABIA [id number] [place] [address] [place] MCHC (RBC) [Mass/Vol] 29.0 g/dL Low 30.5-36.0 [facility] Comment on above: Order Comment: Speci men Type: BLOOD SPECIMENOrdering Facility: [facility] Address: [address] [place] [address] Performed By: #### 5 7021-8 ####[facility] LABIA [id number] [place] [address] [place] MCV (RBC) [Entitic vol] 81.4 fL Normal 80.0-100.0 [facility] Comment on above: Order Comment: Speci men Type: BLOOD SPECIMENOrdering Facility: [facility] Address: [address] [place] [address] Performed By: #### 5 7021-8 ####[facility] LABIA [id number] [place] [address] [place] Monocytes (Bld) [#/Vol] 0.53 10*3/uL Normal <0.87 [facility] Comment on above: Order Comment: Speci men Type: BLOOD SPECIMENOrdering Facility: [facility] Address: [address] [place] [address] Performed By: #### 5 7021-8 ####[facility] LABCLIA [id number] [place] [id number] [place] Monocytes/100 WBC (Bld) 6.7 % Normal [facility] Comment on above: Order Comment: Speci men Type: BLOOD SPECIMENOrdering Facility: [facility] Address: [address] [place] [address] Performed By: #### 5 7021-8 ####[facility] LABCLIA [id number] [place] [address] [place] Neutrophils (Bld) [#/Vol] 5.61 10*3/uL Normal 1.45-7.50 [facility] Comment on above: Order Comment: Speci men Type: BLOOD SPECIMENOrdering Facility: [facility] Address: [address] [place] [address] Performed By: #### 5 7021-8 ####[facility] LABIA [id number] [place] [address] [place] Neutrophils/100 WBC (Bld) 71.2 % Normal [facility] Comment on above: Order Comment: Speci men Type: BLOOD SPECIMENOrdering Facility: [facility] Address: [address] [place] [address] Performed By: #### 5 7021-8 ####[facility] LABIA [id number] [place] [address] [place] Nucleated RBC (Bld) [#/Vol] 10*3/uL Normal <0.01 [facility] Comment on above: Order Comment: Speci men Type: BLOOD SPECIMENOrdering Facility: [facility] Address: [address] [place] [address] Performed By: #### 5 7021-8 ####[facility] LABCLIA [id number] [place] [address] [place] Nucleated RBC/100 WBC (Bld) [Ratio] 0.0 /100 WBC Normal [facility] Comment on above: Order Comment: Speci men Type: BLOOD SPECIMENOrdering Facility: [facility] Address: [address] [place] [address] Performed By: #### 5 7021-8 ####[facility] LABIA [id number] [place] [address] [place] Platelet mean volume (Bld) [Entitic vol] 10.9 fL Normal 9.0-12.7 [facility] Comment on above: Order Comment: Speci men Type: BLOOD SPECIMENOrdering Facility: [facility] Address: [address] [place] [address] Performed By: #### 5 7021-8 ####[facility] LABIA [id number] [place] [address] [place] Platelets (Bld) [#/Vol] 253 10*3/uL Normal 150-400 [facility] Comment on above: Order Comment: Speci men Type: BLOOD SPECIMENOrdering Facility: [facility] Address: [address] [place] [address] Performed By: #### 5 7021-8 ####[facility] LABIA [id number] [place] [address] [place] RBC (Bld) [#/Vol] 5.21 10*6/uL Normal 4.20-6.00 [facility] Comment on above: Order Comment: Speci men Type: BLOOD SPECIMENOrdering Facility: [facility] Address: [address] [place] [address] Performed By: #### 5 7021-8 ####[facility] LABIA [id number] [place] [address] [place] WBC (Bld) [#/Vol] 7.87 10*3/uL Normal 3.70-11.00 [facility] Comment on above: Order Comment: Speci men Type: BLOOD SPECIMENOrdering Facility: [facility] Address: [address] [place] [address] Performed By: #### 5 7021-8 ####[facility] LABJOAN [id number] [address] STATES OF [facility] CNOVon 10-27-2024 CNOV Office Visit (FAMPWS) VICKI RANDLE ([id number]) 1945 M Date Time Provider Department 10/27/24 2:20 PM [facility] your visit today, we recorded the following information about you: Pulse Respiration Blood pressure Weight 88/minute 18/minute 110/66 105 kg Kanchan Ge MD 10/28/2024 11:00 AM Signed Chief Complaint Patient presents with: F/U 3 Month Recording using [employer] software for draft documentation of the visit was discussed with the patient/authorized labor relations representative; all questions welcomed and answered. Patient/authorized labor relations representative agreed to proceed HPI Vicki Randle is a 79 year old male who presents here today for Above Complaints. Accompanied today by his son. Arm Weakness: - Noted weakness in both arms, with more significant difficulty in the left arm since his cervical spine fracture with subsequent fusion. - Unable to lift the right arm fully; left arm has improved function. - Recent evaluation by neurosurgery Dr. Ling on 08/19 showed improved function in biceps and triceps, but persistent weakness in deltoids. - Referral for physical therapy was made, but Adrian has not yet attended. - Requests home-based physical therapy due to transportation challenges. Cough: - Productive cough with white sputum, noted this morning. - Denies chest pain, wheezing, or congestion. Eye Redness: - Reports chronic tearing and redness in the left eye. - Missed recent appointment with ballast cleaning operator Dr. Melo for history of glaucoma. Denies vision changes. Suspected CVA: - Concerns about possible CVA due to drooping of the left eye and difficulty keeping liquids in the mouth. - No recent episodes of sudden weakness, numbness, or slurred speech. Hypertension: - Monitors blood pressure at home; reports readings similar to today's measurement. - Denies headaches, chest pain, or worsening dyspnea. BPH: - Taking Flomax and Proscar. - Denies nocturia, but reports weak urinary stream. - Denies dysuria or hematuria. Hyperlipidemia: - Taking Repatha injections; requests refill. Skin Lesions: - Noted a persistent lesion on the right neck, present for about a year. - Last dermatology visit was over a year ago with Dr. Dudley. Lifestyle: - Consumes 2-3 beers per week; denies other alcohol use. - Chews tobacco daily, approximately one can every two days; not interested in cessation. 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 Additional Information: - No recent hospitalizations or ER visits. - No new falls. - Denies fevers, chills, emesis, diarrhea, or rashes. Past medical history, appointments, medications, allergies reviewed. Previous Medical History PAST MEDICAL HISTORY Diagnosis Date AAA (abdominal aortic aneurysm) 02/06/2012 01/10/17: CT abd 4.8 cm. s/p aortobiliac stent.-Dr. Johan Berg [facility] Acute deep vein thrombosis (DVT) of femoral vein of left lower extremity (HCC) 03/16/2018 At high risk for falls Basal cell carcinoma 2019 left cheek Benign essential tremor Benign hypertension 07/13/2015 BPH with obstruction/lower urinary tract symptoms Bruit right carotid artery Cervical spine fracture (HCC) C4 s/p fusion Chewing tobacco use Class 1 obesity due to excess calories without serious comorbidity with body mass index (BMI) of 33.0 to 33.9 in adult Closed rib fracture 01/2023 right rib fracture after fall Esophageal reflux Gastroesophageal reflux Facet arthritis of lumbar region 06/27/2014 History of carpal tunnel surgery History of fusion of cervical spine Hypertrophy of prostate without urinary obstruction and other lower urinary tract symptoms (LUTS) Hypertrophy of the prostate w/o obstruction Left leg DVT (HCC) 02/19/2018 Mixed hyperlipidemia Hyperlipidemia 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 Melo Personal history of colonic polyps Pulmonary emphysema (HCC) 12/31/2016 Sebaceous cyst Situational depression 07/03/2016 Squamous cell carcinoma 04/04/2015 Left cheek Venous insufficiency of both lower extremities 07/01/2014 Vertebral artery dissection (HCC) Previous Surgical History PAST SURGICAL HISTORY Procedure Laterality Date COLONOSCOPY 12/29/2017 adenomatous polyp, repeat in 5 years COLONOSCOPY FLX DX W/COLLJ SPEC WHEN PFRMD 08/17/2007 EXCISION TUMOR SOFT TISSUE THIGH/KNEE SUBQ <3CM REMOVED FATTY TUMORS FROM UNDER EXCISION TUMOR SOFT TISSUE THIGH/KNEE SUBQ <3CM RMOVED FATTY TUMORE INT REPAIR SCALP,JAYCOB,TRUNK 7.6-12.5CM 02/24/2007 back LAPS SURG CHOLECYSTECTOMY W/CHOLANGIOGRAPHY 09/07/2007 MRI 02/22/2014 [facility] - mri - right (more content not included)... Normal [facility] Comprehensive metabolic 2000 panelon 10-27-2024 Albumin [Mass/Vol] 3.5 g/dL Low 3.9-4.9 [facility] Comment on above: Order Comment: Speci men Type: BLOOD SPECIMENOrdering Facility: [facility] Address: [address] [place] [address] Performed By: #### L IPNF, 20107-4 ####[facility] LABIA [id number] [place] [address] [place] ALP [Catalytic activity/Vol] 184 U/L High 38-113 [facility] Comment on above: Order Comment: Speci men Type: BLOOD SPECIMENOrdering Facility: [facility] Address: [address] [place] [address] Performed By: #### L IPNF, 94922-4 ####[facility] LABCLIA [id number] [place] [address] [place] ALT [Catalytic activity/Vol] 7 U/L Low 10-54 [facility] Comment on above: Order Comment: Speci men Type: BLOOD SPECIMENOrdering Facility: [facility] Address: [address] [place] [address] Performed By: #### L IPNF, 91837-7 ####[facility] LABCLIA [id number] [address] [place] [address] [place] Anion gap [Moles/Vol] 12 mmol/L Normal 8-15 [facility] Comment on above: Order Comment: Speci men Type: BLOOD SPECIMENOrdering Facility: [facility] Address: [address] [place] [address] Performed By: #### L IPNF, 22397-5 ####[facility] LABCLIA [id number] [address] [address] [place] AST [Catalytic activity/Vol] 15 U/L Normal 14-40 [facility] Comment on above: Order Comment: Speci men Type: BLOOD SPECIMENOrdering Facility: [facility] Address: [address] [place] [address] Performed By: #### L IPNF, 95981-7 ####[facility] LABCLIA [id number] [place] [id number] [place] Bilirubin [Mass/Vol] 0.3 mg/dL Normal 0.2-1.3 [facility] Comment on above: Order Comment: Speci men Type: BLOOD SPECIMENOrdering Facility: [facility] Address: [address] [place] [address] Performed By: #### L IPNF, 78267-7 ####[facility] LABCLIA [id number] [place] [id number] [place] Calcium [Mass/Vol] 9.1 mg/dL Normal 8.5-10.2 [facility] Comment on above: Order Comment: Speci men Type: BLOOD SPECIMENOrdering Facility: [facility] Address: [address] [place], [place] [address] Performed By: #### L IPNF, 42303-1 ####[facility] LABCLIA [id number] [address] [address] [place] Chloride [Moles/Vol] 103 mmol/L Normal 98-107 [facility] Comment on above: Order Comment: Speci men Type: BLOOD SPECIMENOrdering Facility: [facility] Address: [address] [place] [address] Performed By: #### L LUDMILA, 45599-9 ####[facility] LABCLIA [id number] [address] [address] [place] CO2 [Moles/Vol] 25 mmol/L Normal 22-30 [facility] Comment on above: Order Comment: Speci men Type: BLOOD SPECIMENOrdering Facility: [facility] Address: [address] [place] [address] Performed By: #### L LUDMILA, 54730-8 ####[facility] LABCLIA [id number] [place] [address] [place] Creatinine [Mass/Vol] 0.93 mg/dL Normal 0.73-1.22 [facility] Comment on above: Order Comment: Speci men Type: BLOOD SPECIMENOrdering Facility: [facility] Address: [address] [place] [address] Performed By: #### L LUDMILA, 80846-9 ####[facility] LABIA [id number] [place] [address] [place] Creatinine and Glomerular filtration rate.predicted panel (S/P/Bld) 84 mL/min/1.73m??? Normal >=60 [facility] Comment on above: Order Comment: Speci men Type: BLOOD SPECIMENOrdering Facility: [facility] Address: [address] [place] [address] Result Comment: Beatrice mated Glomerular Filtration Rate (eGFR) is calculated using the 2020 CKD-EPI creatinine equation. This equation utilizes serum creatinine, sex, and age as parameters. The creatinine assay has traceable calibration to isotope dilution-mass spectrometry. Refer to KDIGO guidelines for clinical interpretation. In patients with unstable renal function, e.g. those with acute kidney injury, the eGFR may not accurately reflect actual GFR. Performed By: #### L LUDMILA, 52016-5 ####[facility] LABCLIA [id number] [address] [address] [place] Glucose [Mass/Vol] 94 mg/dL Normal 74-99 [facility] Comment on above: Order Comment: Speci men Type: BLOOD SPECIMENOrdering Facility: [facility] Address: [address] [place] [address] Result Comment: The [place] Diabetes Association (ADA) provides guidance for cutoff values for fasting glucose and random glucose. The ADA defines fasting as no caloric intake for at least 8 hours. Fasting plasma glucose results between 100 to 125 [...] Standards of Medical Care in Diabetes 2016, [place] Diabetes Association. Diabetes Care. 2016.39(Suppl 1). Performed By: #### L IPNF, 03739-2 ####[facility] LABIA [id number] [place] [id number] [place] Potassium [Moles/Vol] 4.4 mmol/L Normal 3.7-5.1 [facility] Comment on above: Order Comment: Speci men Type: BLOOD SPECIMENOrdering Facility: [facility] Address: [address] [place] [address] Performed By: #### L IPNF, 47522-4 ####[facility] LABIA [id number] [address] [address] [place] Protein [Mass/Vol] 7.3 g/dL Normal 6.3-8.0 [facility] Comment on above: Order Comment: Speci men Type: BLOOD SPECIMENOrdering Facility: [facility] Address: [address] [place] [address] Performed By: #### L IPNF, ####[facility] LABCLIA [id number] [address] [address] [place] Sodium [Moles/Vol] 140 mmol/L Normal 136-144 [facility] Comment on above: Order Comment: Speci men Type: BLOOD SPECIMENOrdering Facility: [facility] Address: [address] [place] [address] Performed By: #### L IPNF, ####[facility] LABCLIA [id number] [place] [address] [place] Urea nitrogen [Mass/Vol] 13 mg/dL Normal 9-24 [facility] Comment on above: Order Comment: Speci men Type: BLOOD SPECIMENOrdering Facility: [facility] Address: [address] [place] [address] Performed By: #### L IPSOCO, ####[facility] LABCLIA [id number] [place] [address] [place] LIPID PANEL, NONFASTINGon Cholesterol [Mass/Vol] 146 mg/dL Normal <200 [facility] Comment on above: Order Comment: Speci men Type: BLOOD SPECIMENOrdering Facility: [facility] Address: [address] [place] [address] Result Comment: <200 mg/dL, Desirable 200-239 mg/dL, Borderline high >239 mg/dL, High Performed By: #### L IPNF, ####[facility] LABIA [id number] [place] [id number] [place] HDL CHOLESTEROL, NF 41 mg/dL Normal >39 [facility] Comment on above: Order Comment: Speci men Type: BLOOD SPECIMENOrdering Facility: [facility] Address: [address] [place] [address] Result Comment: 40-5 9 mg/dL, Acceptable >59 mg/dL, High: Negative risk factor for coronary heart disease <40 mg/dL, Low: Positive risk factor for coronary heart disease Performed By: #### L LUDMILA, 27433-0 ####[facility] LABCLIA [id number] [address] [place] LDL CHOLESTEROL CALCULATED, NF 88 mg/dL Normal <100 [facility] Comment on above: Order Comment: Speci men Type: BLOOD SPECIMENOrdering Facility: [facility] Address: [address] [place] [address] Result Comment: <100 mg/dL, Optimal 100-129 mg/dL, Near optimal/above optimal 130-159 mg/dL, Borderline high 160-189 mg/dL, High >189 mg/dL, Very high Secondary prevention optimal LDL Cholesterol levels are recommended to be <70 mg/dL LDL cholesterol is calculated using the Wilson-NIH equation. Performed By: #### L LUDMILA, 42369-5 ####[facility] LABIA [id number] [address] STATES [place] [facility] LDL/HDL RATIO, NF 2.15 mg/dL Normal <2.54 [facility] Comment on above: Order Comment: Speci men Type: BLOOD SPECIMENOrdering Facility: [facility] Address: [address] [place] [address] Result Comment: Rosmery tapia: 1. National Cholesterol Education Program ATP III Guideline At-A-Glance Quick Desk Reference: National Heart, Lung, and Blood [place]. National Institutes of Health. 2001: NIH Publication No. 01-3305. 2. An International Atherosclerosis Society position paper: global recommendations for the management of dyslipidemia: executive summary, Atherosclerosis. 2014: 232(2):410-413. Performed By: #### L LUDMILA, 57243-8 ####[facility] LABIA [id number] [address] [place] NON HDL CHOL, NF 105 mg/dL Normal <130 [facility] Comment on above: Order Comment: Speci men Type: BLOOD SPECIMENOrdering Facility: [facility] Address: [address] [place] [address] Result Comment: <130 mg/dL, Optimal 130-159 mg/dL, Near optimal/above optimal 160-189 mg/dL, Borderline high 190-219 mg/dL, High >219 mg/dL, Very high Secondary prevention optimal non HDL Cholesterol levels are recommended to be <100 mg/dL Performed By: #### L LUDMILA, ####[facility] LABCLIA [id number] [address] [place] T CHOL/HDL RATIO NF 3.56 mg/dL Normal <5.10 [facility] Comment on above: Order Comment: Speci men Type: BLOOD SPECIMENOrdering Facility: [facility] Address: [address] [place] [address] Performed By: #### L LUDMILA, ####[facility] LABCLIA [id number] [address] [place] [facility] TRIGLYCERIDES, NF 88 mg/dL Normal <150 [facility] Comment on above: Order Comment: Victor Manueli men Type: BLOOD SPECIMENOrdering Facility: [facility] Address: [address] [place] [address] Result Comment: <150 mg/dL, Normal 150-199 mg/dL, Borderline high 200-499 mg/dL, High >499 mg/dL, Very high Performed By: #### L LUDMILA, ####[facility] LABCLIA [id number] [place] [address] [place] VLDL CHOLESTEROL, NF 14 mg/dL Normal <30 [facility] Comment on above: Order Comment: Victor Manueli men Type: BLOOD SPECIMENOrdering Facility: [facility] Address: [address] [place] [address] Performed By: #### L LUDMILA, ####[facility] LABCLIA [id number] [facility] [place] [id number] [place] CNOVon 08-19-2024 CNOV Office Visit (NEAGCLM) VICKI RANDLE ([id number]) 1945 M Date Time Provider Department 08/19/24 2:15 PM MANDO LING NEAGCLM During your visit today, we recorded the following information about you: Pulse Blood pressure Weight Height 91/minute 98/57 104.2 kg 1.854 m Mando Ling MD 08/19/2024 2:41 PM Signed NEUROSURGERY FOLLOW UP OFFICE NOTE Mando Ling MD [facility] Date of visit: August 19, 2024 Patient Name: Mr.Michael Randle Date of : 1945 Current Age: [age] year old Sex: male MRN/E# [id number] Last Office Visit: 07/27/2024 Chief Complaint: Patient presents with: Established Patient Past Medical/Surgical History: Mr. Randle is a 78 year old male with a past medical history of AAA, DVT (on Eliquis), basal cell carcinoma, benign essential tremor, HTN, BPH, Bruit of right carotid artery, nodule of right lung, venous insufficiency of BLE. No significant surgical history. HPI: Past Medical/Surgical History: Mr. Randle is a 78 year old male with a past medical history of AAA, DVT (on Eliquis), basal cell carcinoma, benign essential tremor, HTN, BPH, Bruit of right carotid artery, nodule of right lung, venous insufficiency of BLE. No significant surgical history. HPI: Mr. Randle was seen in the [facility] ED on 01/01/2024 after a fall and was found to have central cord syndome with neck pain and LUE pain/weakness. MRI showed ligamentous injury across C4-5 with severe canal stenosis. He was taken to the OR for C3-6 PCDF on 01/01/2024. He was last seen in the office on 04/26/2024 for a 6 week post operative visit when he when he continued to have some dexterity issues and gait imbalance and had been utilizing a walker for ambulation. He continued with weakness to the upper extremities. He had been participating in physical therapy but did not feel it was helping much. 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 Given continued weakness, an EMG was ordered to assess further, as well as shoulder xrays to assess for any intrinsic pathology which revealed denervation in the C5-7 motor groups, which was at the site of injury. It was recommended that he continue conservative management to include therapy and time to recover. He was to follow up in 6 weeks time, prompting his visit today. The patient presents to the office today with no reports of pain to the neck or arms. He has some left shoulder pain but that is nothing new for him. He denies falls, weakness, paresthesia. He is pleased with his progress this far. He is here for evaluation and plan of care. Symptoms: dexterity issues and gait imbalance PREVIOUS CONSERVATIVE TREATMENTS: Physical therapy PREVIOUS SURGERY: SURGERY #1: C3-C6 PCDF on 01/01/2024 Pre-Surgical Symptoms: fall - central cord syndrome PAIN EVALUATION No data found in the last 1 encounters. PAST MEDICAL HISTORY Diagnosis Date AAA (abdominal aortic aneurysm) ([facility]) 02/06/2012 01/10/17: CT abd 4.8 cm. s/p aortobiliac stent.-Dr. Johan Berg Actinic keratosis On [facility], Dr. [place] Acute deep vein thrombosis (DVT) of femoral vein of left lower extremity ([facility]) 03/16/2018 At high risk for falls Basal cell carcinoma 2019 left cheek Benign essential tremor Benign hypertension 07/13/2015 BPH with obstruction/lower urinary tract symptoms Bruit right carotid artery Cervical spine fracture ([facility]) C4 s/p fusion Chewing tobacco use Class 1 obesity due to excess calories without serious comorbidity with body mass index (BMI) of 33.0 to 33.9 in adult Closed rib fracture 01/2023 right rib fracture after fall Esophageal reflux Gastroesophageal reflux Facet arthritis of lumbar region 06/27/2014 History of carpal tunnel surgery 1990s History of fusion of cervical spine Hypertrophy of prostate without urinary obstruction and other lower urinary tract symptoms (LUTS) Hypertrophy of the prostate w/o obstruction Left leg DVT ([facility]) 02/19/2018 Mixed hyperlipidemia Hyperlipidemia 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 Melo Personal history of colonic polyps Pulmonary emphysema (HCC) 12/31/2016 Sebaceous cyst Situational depression 07/03/2016 Squamous cell carcinoma 04/04/2015 Left cheek Venous insufficiency of both lower extremities 07/01/2014 Vertebral artery dissection (HCC) PAST SURGICAL HISTORY Procedure Laterality Date COLONOSCOPY 12/29/2017 adenomatous polyp, repeat in 5 years COLONOSCOPY FLX DX W/COLLJ SPEC WHEN PFRMD 08/17/2007 EXCISION TUMOR SOFT TISSUE THIGH/KNEE SUBQ <3CM REMOVED FATTY TUMORS FROM UNDER EXCISION TUMOR (more content not included)... Normal [facility] XR CERVICAL 2V AP/LATon 08-01 XR CERVICAL 2V AP/LAT * * *Final Report* * * DATE OF EXAM: Aug 19 2024 1:58PM [id number] - XR CERVICAL 2V AP/LAT / PROCEDURE REASON: S/P cervical spinal fusion * * * * Physician Interpretation * * * * EXAMINATION / TECHNIQUE: XR CERVICAL 2V AP/LAT HISTORY: s/p op 01/01/2024, follow up S/P cervical spinal fusion COMPARISON: 04/27/2024. RESULT: Posterior cervical hardware is intact and unchanged in position without loosening. Vertebral body heights are preserved. Sagittal alignment is maintained. There is moderate to severe multilevel disc height loss. Prevertebral soft tissues are normal. IMPRESSION: Postoperative and degenerative changes with intact hardware. Relocation Services Specialist: RUDDY Transcribe Date/Time: Aug 26 2024 8:45A Dictated by : JUSTINO CHO MD This examination was interpreted and the report reviewed and electronically signed by: JUSTINO CHO MD on Aug 26 2024 8:46AM EST [id number] CN Normal [facility] HbA1c (Bld)on 08-02-2024 Average glucose Estimated from glycated hemoglobin (Bld) [Mass/Vol] 108 mg/dL [facility] Comment on above: eAG: (Estimated aver age glucose) is a calculated value from HgbA1c and is labor relations representative of the average blood glucose level in the last 2-3 month period. HbA1c (Bld) [Mass fraction] 5.4 % 4.3 - 5.6 % [facility] Comment on above: [place] Diabetes As sociation guidelines indicate that patients with HgbA1c in the range 5.7-6.4% are at increased risk for development of diabetes, and intervention by lifestyle modification may be beneficial. HgbA1c greater or equal to 6.5% is considered diagnostic of diabetes. [facility] CBC W Auto Differential pane l (Bld)on 07-30-2024 Basophils (Bld) [#/Vol] 0.05 10*3/uL [facility] Basophils/100 WBC (Bld) 0.6 % C [facility] Differential cell count method Nom (Bld) Auto [facility] Eosinophils (Bld) [#/Vol] 0.11 10*3/uL [facility] Eosinophils/100 WBC (Bld) 1.3 % [facility] Erythrocyte distribution width (RBC) [Ratio] 15.3 % High 11.5 - 15.0 % [facility] Hematocrit (Bld) [Volume fraction] 40.8 % 39.0 - 51.0 % [facility] Hemoglobin (Bld) [Mass/Vol] 12 g/dL Low 13.0 - 17.0 g/dL [facility] Immature granulocytes (Bld) [#/Vol] [facility] Immature granulocytes/100 WBC (Bld) 0.2 % [facility] Interpretation and review of laboratory results Abnormal [facility] Lymphocytes (Bld) [#/Vol] 1.39 10*3/uL [facility] Lymphocytes/100 WBC (Bld) 16.7 % [facility] MCH (RBC) [Entitic mass] 23.5 pg Low 26.0 - 34.0 pg [facility] MCHC (RBC) [Mass/Vol] 29.4 g/dL Low 30.5 - 36.0 g/dL [facility] MCV (RBC) [Entitic vol] 79.8 fL Low 80.0 - 100.0 fL [facility] Monocytes (Bld) [#/Vol] 0.61 10*3/uL [facility] Monocytes/100 WBC (Bld) 7.3 % [facility] Neutrophils (Bld) [#/Vol] 6.14 10*3/uL [facility] Neutrophils/100 WBC (Bld) 73.9 % [facility] Nucleated RBC (Bld) [#/Vol] [facility] Nucleated RBC/100 WBC (Bld) [Ratio] 0 % /100 WBC [facility] Platelet mean volume (Bld) [Entitic vol] 9.9 fL 9.0 - 12.7 fL [facility] Platelets (Bld) [#/Vol] 236 10*3/uL [facility] RBC (Bld) [#/Vol] 5.11 10*6/uL 4.20 - 6.0 0 m/uL [facility] WBC (Bld) [#/Vol] 8.32 10*3/uL [facility] Comprehensive metabolic 2000 panelOrdered By: Anne Alejandra on 07-30-2024 Albumin [Mass/Vol] 3.4 g/dL Low 3.9 - 4.9 g/dL [facility] ALP [Catalytic activity/Vol] 163 U/L High 38 - 113 U/L [facility] ALT [Catalytic activity/Vol] 5 U/L Low 10 - 54 U/L [facility] Anion gap [Moles/Vol] 13 mmol/L 8 - 15 mmol/L [facility] AST [Catalytic activity/Vol] 11 U/L Low 14 - 40 U/L [facility] Bilirubin [Mass/Vol] 0.2 mg/dL 0.2 - 1 .3 mg/dL [facility] Calcium [Mass/Vol] 9 mg/dL 8.5 - 10. 2 mg/dL [facility] Chloride [Moles/Vol] 103 mmol/L 98 - 10 7 mmol/L [facility] CO2 [Moles/Vol] 22 mmol/L 22 - 30 mmol/L [facility] Creatinine [Mass/Vol] 0.85 mg/dL 0.73 - 1.22 mg/dL [facility] GFR/1.73 sq M.predicted among non-blacks MDRD (S/P/Bld) [Vol rate/Area] 88 mL/min/{1.73_m2} - PINF [facility] Comment on above: Estimated Glomerular Filtration Rate (eGFR) is calculated using the 2020 CKD-EPI creatinine equation. This equation utilizes serum creatinine, sex, and age as parameters. The creatinine assay has traceable calibration to isotope dilution-mass spectrometry. Refer to KDIGO guidelines for clinical interpretation. In patients with unstable renal function, e.g. those with acute kidney injury, the eGFR may not accurately reflect actual GFR. Glucose [Mass/Vol] 139 mg/dL High 74 - 99 mg/dL [facility] Comment on above: The [place] Diabete s Association (ADA) provides guidance for cutoff values for fasting glucose and random glucose. The ADA defines fasting as no caloric intake for at least 8 hours. Fasting plasma glucose results between 100 to 125 [...] Standards of Medical Care in Diabetes 2016, [place] Diabetes Association. Diabetes Care. 2016.39(Suppl 1). Interpretation and review of laboratory results Abnormal [facility] Potassium [Moles/Vol] 4.5 mmol/L 3.7 - 5.1 mmol/L [facility] Protein [Mass/Vol] 7.4 g/dL 6.3 - 8.0 g/dL [facility] Sodium [Moles/Vol] 138 mmol/L 136 - 144 mmol/L [facility] Urea nitrogen [Mass/Vol] 14 mg/dL 9 - 24 mg/dL [facility] XR Chest PA and Lateralon IMPRESSION: No developing abnormality or acute process Relocation Services Specialist: RUDDY Transcribe Date/Time: Jul 30 2024 8:20A Dictated by : THAD GARCIA MD This examination was interpreted and the report reviewed and electronically signed by: THAD GARCIA MD on Jul 30 2024 8:26AM [facility] DIVISION OF RADIOLOGY * * *Final Report* * * DATE OF EXAM: Jul 29 2024 3:32PM WOX [id number] - XR CHEST 2V FRONTAL/LAT / PROCEDURE REASON: CHAU (dyspnea on exertion) * * * * Physician Interpretation * * * * EXAMINATION: CHEST RADIOGRAPH (2 VIEW FRONTAL & LATERAL) CLINICAL HISTORY: CHAU (dyspnea on exertion) MQ: XC2_6 EXAM DATE/TIME: 07/29/2024 3:32 PM COMPARISON: 02/06/2024 CT 07/17/2021 RESULT: Lines, tubes, and devices: None. Lungs and pleura: No consolidation. No lung mass. Stable blunting of the costophrenic angles.. No pneumothorax. Stable linear atelectasis or fibrosis at the left base Cardiomediastinal silhouette: Stable cardiomediastinal silhouette. Bones and soft tissues: Unremarkable. DIVISION OF RADIOLOGY Provider, [facility] [place] - 07/30/2024 * * *Final Report* * * DATE OF EXAM: Jul 29 2024 3:32PM WOX 5291 - XR CHEST 2V FRONTAL/LAT / PROCEDURE REASON: CHAU (dyspnea on exertion) * * * * Physician Interpretation * * * * EXAMINATION: CHEST RADIOGRAPH (2 VIEW FRONTAL & LATERAL) CLINICAL HISTORY: CHAU (dyspnea on exertion) MQ: XC2_6 EXAM DATE/TIME: 07/29/2024 3:32 PM COMPARISON: 02/06/2024 CT 07/17/2021 RESULT: Lines, tubes, and devices: None. Lungs and pleura: No consolidation. No lung mass. Stable blunting of the costophrenic angles.. No pneumothorax. Stable linear atelectasis or fibrosis at the left base Cardiomediastinal silhouette: Stable cardiomediastinal silhouette. Bones and soft tissues: Unremarkable. IMPRESSION IMPRESSION: No developing abnormality or acute process Relocation Services Specialist: RUDDY Transcribe Date/Time: Jul 30 2024 8:20A Dictated by : THAD GARCIA MD This examination was interpreted and the report reviewed and electronically signed by: THAD GARCIA MD on Jul 30 2024 8:26AM EST [facility] XR Chest PA and LateralOrder ed By: Ccf Provider on 07-30-2024 [facility] CBC W Auto Differential pane l (Bld)on 07-29-2024 Basophils (Bld) [#/Vol] 0.05 10*3/uL Normal <0.11 [facility] Comment on above: Order Comment: Speci men Type: BLOOD SPECIMENOrdering Facility: [facility] Address: [address] [place] [address] Performed By: #### 5 7021-8 ####[facility] [id number] [address] [place]#### 53016-1 ####[facility] LABCLIA [id number] [place] [address] [place] Basophils/100 WBC (Bld) 0.6 % Normal [facility] Comment on above: Order Comment: Speci men Type: BLOOD SPECIMENOrdering Facility: [facility] Address: [address] [place] [address] Performed By: #### 5 7021-8 ####[facility] MILLTOWNCLIA [id number] [place] [address] [place]#### 38483-8 ####[facility] LABCLIA [id number] [place] [address] [place] Differential cell count method Nom (Bld) Auto Normal [facility] Comment on above: Order Comment: Speci men Type: BLOOD SPECIMENOrdering Facility: [facility] Address: [address] [place] [address] Performed By: #### 5 7021-8 ####[facility] MILLWNCLIA [id number] [place] [address] [place]#### 23583-3 ####[facility] LABCLIA [id number] [place] [address] [place] Eosinophils (Bld) [#/Vol] 0.11 10*3/uL Normal <0.46 [facility] Comment on above: Order Comment: Speci men Type: BLOOD SPECIMENOrdering Facility: [facility] Address: [address] [place] [address] Performed By: #### 5 7021-8 ####[facility] MILLTOWNCLIA [id number] [place] [address] [place]#### 96666-9 ####[facility] LABCLIA [id number] [place] [address] [place] Eosinophils/100 WBC (Bld) 1.3 % Normal [facility] Comment on above: Order Comment: Speci men Type: BLOOD SPECIMENOrdering Facility: [facility] Address: [address] [place] [address] Performed By: #### 5 7021-8 ####[facility]ENTER[facility]IA [id number] [place] [address] [place]#### 92119-3 ####[facility] LABCLIA [id number] [place] [address] [place] Erythrocyte distribution width (RBC) [Ratio] 15.3 % High 11.5-15.0 [facility] Comment on above: Order Comment: Speci men Type: BLOOD SPECIMENOrdering Facility: [facility] Address: [address] [place] [address] Performed By: #### 5 7021-8 ####[facility] [id number] [place] [address] [place]#### 06166-3 ####[facility] LABCLIA [id number] [place] [address] [place] Hematocrit (Bld) [Volume fraction] 40.8 % Normal 39.0-51.0 [facility] Comment on above: Order Comment: Speci men Type: BLOOD SPECIMENOrdering Facility: [facility] Address: [address] [place] [address] Performed By: #### 5 7021-8 ####[facility] [id number] [place] [address] [place]#### 99726-8 ####[facility] LABCLIA [id number] [place] [address] [place] Hemoglobin (Bld) [Mass/Vol] 12.0 g/dL Low 13.0-17.0 [facility] Comment on above: Order Comment: Speci men Type: BLOOD SPECIMENOrdering Facility: [facility] Address: [address] [place] [address] Performed By: #### 5 7021-8 ####[facility] DORALNCLIA [id number] [place] [address] [place]#### 45346-7 ####[facility] LABCLIA [id number] [place] [address] [place] Immature granulocytes (Bld) [#/Vol] 10*3/uL Normal <0.10 [facility] Comment on above: Order Comment: Speci men Type: BLOOD SPECIMENOrdering Facility: [facility] Address: [address] [place] [address] Performed By: #### 5 7021-8 ####[facility]ENTERLIA [id number] [place] [address] [place]#### 84650-7 ####[facility] LABCLIA [id number] [place] [address] [place] Immature granulocytes/100 WBC (Bld) 0.2 % Normal [facility] Comment on above: Order Comment: Speci men Type: BLOOD SPECIMENOrdering Facility: [facility] Address: [address] [place] [address] Performed By: #### 5 7021-8 ####[facility] DORALNCLIA [id number] [place] [address] [place]#### 08915-1 ####[facility] LABCLIA [id number] [place] [address] [place] Lymphocytes (Bld) [#/Vol] 1.39 10*3/uL Normal 1.00-4.00 [facility] Comment on above: Order Comment: Speci men Type: BLOOD SPECIMENOrdering Facility: [facility] Address: [address] [place] [address] Performed By: #### 5 7021-8 ####[facility] DORALNCLIA [id number] [place] [address] [place]#### 28167-0 ####[facility] LABCLIA [id number] [place] [address] [place] Lymphocytes/100 WBC (Bld) 16.7 % Normal [facility] Comment on above: Order Comment: Speci men Type: BLOOD SPECIMENOrdering Facility: [facility] Address: [address] [place] [address] Performed By: #### 5 7021-8 ####[facility] [id number] [place] [address] [place]#### 86956-8 ####[facility] LABCLIA [id number] [place] [address] [place] MCH (RBC) [Entitic mass] 23.5 pg Low 26.0-34.0 [facility] Comment on above: Order Comment: Speci men Type: BLOOD SPECIMENOrdering Facility: [facility] Address: [address] [place] [address] Performed By: #### 5 7021-8 ####[facility] DORALNCLIA [id number] [place] [address] [place]#### 49807-8 ####[facility] LABCLIA [id number] [place] [address] [place] MCHC (RBC) [Mass/Vol] 29.4 g/dL Low 30.5-36.0 [facility] Comment on above: Order Comment: Speci men Type: BLOOD SPECIMENOrdering Facility: [facility] Address: [address] [place] [address] Performed By: #### 5 7021-8 ####[facility] [id number] [place] [address] [place]#### 17399-7 ####[facility] LABCLIA [id number] [place] [address] [place] MCV (RBC) [Entitic vol] 79.8 fL Low 80.0-100.0 [facility] Comment on above: Order Comment: Speci men Type: BLOOD SPECIMENOrdering Facility: [facility] Address: [address] [place] [address] Performed By: #### 5 7021-8 ####[facility] [id number] [place] [address] [place]#### 75936-0 ####[facility] LABCLIA [id number] [place] [address] [place] Monocytes (Bld) [#/Vol] 0.61 10*3/uL Normal <0.87 [facility] Comment on above: Order Comment: Speci men Type: BLOOD SPECIMENOrdering Facility: [facility] Address: [address] [place] [address] Performed By: #### 5 7021-8 ####[facility]ENTERL[facility] [id number] [place] [address] [place]#### 02944-8 ####[facility] LABCLIA [id number] [place] [address] [place] Monocytes/100 WBC (Bld) 7.3 % Normal [facility] Comment on above: Order Comment: Speci men Type: BLOOD SPECIMENOrdering Facility: [facility] Address: [address] [place] [address] Performed By: #### 5 7021-8 ####[facility] [id number] [place] [address] [place]#### 50274-4 ####[facility] LABCLIA [id number] [place] [address] [place] Neutrophils (Bld) [#/Vol] 6.14 10*3/uL Normal 1.45-7.50 [facility] Comment on above: Order Comment: Speci men Type: BLOOD SPECIMENOrdering Facility: [facility] Address: [address] [place] [address] Performed By: #### 5 7021-8 ####[facility] [id number] [place] [address] [place]#### 24146-2 ####[facility] LABCLIA [id number] [place] [address] [place] Neutrophils/100 WBC (Bld) 73.9 % Normal [facility] Comment on above: Order Comment: Speci men Type: BLOOD SPECIMENOrdering Facility: [facility] Address: [address] [place] [address] Performed By: #### 5 7021-8 ####[facility] [id number] [place] [address] [place]#### 07768-6 ####[facility] LABCLIA [id number] [place] [address] [place] Nucleated RBC (Bld) [#/Vol] 10*3/uL Normal <0.01 [facility] Comment on above: Order Comment: Speci men Type: BLOOD SPECIMENOrdering Facility: [facility] Address: [address] [place] [address] Performed By: #### 5 7021-8 ####[facility] DORALLIANETLIA [id number] [place] [address] [place]#### 74187-7 ####[facility] LABCLIA [id number] [place] [address] [place] Nucleated RBC/100 WBC (Bld) [Ratio] 0.0 /100 WBC Normal [facility] Comment on above: Order Comment: Speci men Type: BLOOD SPECIMENOrdering Facility: [facility] Address: [address] [place] [address] Performed By: #### 5 7021-8 ####[facility] [id number] [place] [address] [place]#### 31278-8 ####[facility] LABCLIA [id number] [place] [address] [place] Platelet mean volume (Bld) [Entitic vol] 9.9 fL Normal 9.0-12.7 [facility] Comment on above: Order Comment: Speci men Type: BLOOD SPECIMENOrdering Facility: [facility] Address: [address] [place] [address] Performed By: #### 5 7021-8 ####[facility] [id number] [place] [address] [place]#### 89630-7 ####[facility] LABCLIA [id number] [place] [address] [place] Platelets (Bld) [#/Vol] 236 10*3/uL Normal 150-400 [facility] Comment on above: Order Comment: Speci men Type: BLOOD SPECIMENOrdering Facility: [facility] Address: [address] [place] [address] Performed By: #### 5 7021-8 ####[facility] DORALLIANETLIA [id number] [place] [address] [place]#### 17753-5 ####[facility] LABIA [id number] [place] [address] [place] RBC (Bld) [#/Vol] 5.11 10*6/uL Normal 4.20-6.00 [facility] Comment on above: Order Comment: Speci men Type: BLOOD SPECIMENOrdering Facility: [facility] Address: [address] [place] [address] Performed By: #### 5 7021-8 ####[facility] [id number] [place] [address] [place]#### 57246-3 ####[facility] LABIA [id number] [place] [address] [place] WBC (Bld) [#/Vol] 8.32 10*3/uL Normal 3.70-11.00 [facility] Comment on above: Order Comment: Speci men Type: BLOOD SPECIMENOrdering Facility: [facility] Address: [address] [place] [address] Performed By: #### 5 7021-8 ####[facility] [id number] [place] [address] [place]#### 50411-0 ####[facility] LABIA [id number] [address] [place] CNOVon 07-29-2024 CNOV Office Visit (FAMPWS) VICKI RANDLE ([id number]) 1945 M Date Time Provider Department 07/29/24 2:20 PM KANCHAN GE During your visit today, we recorded the following information about you: Pulse Respiration Blood pressure 95/minute 16/minute 108/58 Kanchan Ge MD 08/01/2024 11:48 AM Signed Chief Complaint Patient presents with: Follow Up: 3 month HPI Vicki Randle is a 79 year old male who presents here today for Above Complaints Accompanied today by his grand daughter Kymberly. Patient has been in good health without recent hospitalizations, ER visits, or falls. Patient complaining today of shortness of breath which has been going on for the last 4-5 years and worsened about 2 years ago. States that the only exercise he gets is walking from his chair to the kitchen and back about 4-5 times per day. Admits to productive cough with white sputum. Denies wheezing, chest pain, palpitations, LE edema, lightheadedness/dizz iness, syncope, bleeding or bruising symptoms. Workup completed for this in 2022 and 2023 with EKG, stress test, echo and labs which were unremarkable. Not interested in seeing any new specialists. Last f/u with neurosurgery 06/03 for history of cervical spinal fusion after fall. Had EMG which showed some denervation in the C5-7 motor groups which they believed was delayed response from surgery. States that he still has limited use of his left arm which he has referral to PT for. Needs to reach out to schedule. Still drinking 1-2 beers per day. No longer drinking liquor. Past medical history, appointments, medications, allergies reviewed. Previous Medical History PAST MEDICAL HISTORY Diagnosis Date AAA (abdominal aortic aneurysm) ([facility]) 02/06/2012 01/10/17: CT abd 4.8 cm. s/p aortobiliac stent.-Dr. Johan Berg Actinic keratosis On [facility], Dr. [place] Acute deep vein thrombosis (DVT) of femoral vein of left lower extremity ([facility]) 03/16/2018 02/19/18--on Eliquis At high risk for falls Basal cell carcinoma 2019 left cheek Benign essential tremor Benign hypertension 07/13/2015 BPH with obstruction/lower urinary tract symptoms Bruit right carotid artery Cervical spine fracture ([facility]) C4 s/p fusion Chewing tobacco use Class 1 obesity due to excess calories without serious comorbidity with body mass index (BMI) of 33.0 to 33.9 in adult Closed rib fracture 01/2023 right rib fracture after fall Esophageal reflux Gastroesophageal reflux Facet arthritis of lumbar region 06/27/2014 History of carpal tunnel surgery History of fusion of cervical spine Hypertrophy of prostate without urinary obstruction and other lower urinary tract symptoms (LUTS) Hypertrophy of the prostate w/o obstruction Left leg DVT (HCC) 02/19/2018 Mixed hyperlipidemia Hyperlipidemia 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 Melo Personal history of colonic polyps Pulmonary emphysema (HCC) 12/31/2016 Sebaceous cyst Situational depression 07/03/2016 Squamous cell carcinoma 04/04/2015 Left cheek Venous insufficiency of both lower extremities 07/01/2014 Vertebral artery dissection (HCC) Previous Surgical History PAST SURGICAL HISTORY Procedure Laterality Date COLONOSCOPY 12/29/2017 adenomatous polyp, repeat in 5 years COLONOSCOPY FLX DX W/COLLJ SPEC WHEN PFRMD 08/17/2007 EXCISION TUMOR SOFT TISSUE THIGH/KNEE SUBQ <3CM REMOVED FATTY TUMORS FROM UNDER EXCISION TUMOR SOFT TISSUE THIGH/KNEE SUBQ <3CM RMOVED FATTY TUMORE INT REPAIR SCALP,JAYCOB,TRUNK 7.6-12.5CM 02/24/2007 back LAPS SURG CHOLECYSTECTOMY W/CHOLANGIOGRAPHY 09/07/2007 MRI 02/22/2014 [facility] - mri - right knee PAST SURGICAL HISTORY OF N/A 09/09/2017 Abdominal aneurysm aortic repair PAST SURGICAL HISTORY OF Right 2013 arthroscopic knee surgery PAST SURGICAL HISTORY OF Left excision of knee bursa PAST SURGICAL HISTORY OF 01/01/2024 Posterior segmental instrumentation and posterior lateral fusion C3-C6; ORIF of C4 fracture; C3-C6 laminectomy REM LESION TRUNK,ARM,LEG > 4.0CM 02/24/2007 back REM LESION TRUNK,ARM,LEG > 4.0CM REVISE MEDIAN N/CARPAL TUNNEL SURG Bilateral 1990s SURGERY (GENERAL SURGERY) CONSULT 04/25/2015 Invasive squamous cell carcincoma see scanned documents Family History FAMILY HISTORY Problem Relation Age of Onset Emphysema Mother Arthritis Sister Hypertension Maternal Grandmother No Known Problems Son No Known Problems Son No Known Problems Son No Known Problems Son No Known Problems Son Patient Allergies ALLERGIES Allergen Reactions Lipitor [Atorvastat* Intolerance Rosuvastatin Calcium Intolerance Dqixadc-Cyr-Wpk Red* Myalgia Current Medi (more content not included)... Normal [facility] Comprehensive metabolic 2000 panelon 07-29-2024 Albumin [Mass/Vol] 3.4 g/dL Low 3.9-4.9 [facility] Comment on above: Order Comment: Speci men Type: BLOOD SPECIMENOrdering Facility: [facility] Address: [address] [place] [address] Performed By: #### 2 4323-8 ####[facility] MILLTOWNCLIA [id number] [place] [address] [place] ALP [Catalytic activity/Vol] 163 U/L High 38-113 [facility] Comment on above: Order Comment: Speci men Type: BLOOD SPECIMENOrdering Facility: [facility] Address: [address] [place] [address] Performed By: #### 2 4323-8 ####[facility] MILLTOWNCLIA [id number] [place] [address] [place] ALT [Catalytic activity/Vol] 5 U/L Low 10-54 [facility] Comment on above: Order Comment: Speci men Type: BLOOD SPECIMENOrdering Facility: [facility] Address: [address] [place] [address] Performed By: #### 2 4323-8 ####[facility] MILLTOWNCLIA [id number] [place] [address] [place] Anion gap [Moles/Vol] 13 mmol/L Normal 8-15 [facility] Comment on above: Order Comment: Speci men Type: BLOOD SPECIMENOrdering Facility: [facility] Address: [address] [place] [address] Performed By: #### 2 4323-8 ####[facility] MILLTOWNCLIA [id number] [place] [address] [place] AST [Catalytic activity/Vol] 11 U/L Low 14-40 [facility] Comment on above: Order Comment: Speci men Type: BLOOD SPECIMENOrdering Facility: [facility] Address: [address] [place] [address] Performed By: #### 2 4323-8 ####[facility] GIL YINKABRAYDENWNCLIA [id number] [place] [address] [place] Bilirubin [Mass/Vol] 0.2 mg/dL Normal 0.2-1.3 [facility] Comment on above: Order Comment: Speci men Type: BLOOD SPECIMENOrdering Facility: [facility] Address: [address] [place] [address] Performed By: #### 2 4323-8 ####[facility] ERWLIANETLIOleksandr [id number] [place] [address] [place] Calcium [Mass/Vol] 9.0 mg/dL Normal 8.5-10.2 [facility] Comment on above: Order Comment: Speci men Type: BLOOD SPECIMENOrdering Facility: [facility] Address: [address] [place] [address] Performed By: #### 2 4323-8 ####[facility] YINKAWNCLIA [id number] [place] [address] [place] Chloride [Moles/Vol] 103 mmol/L Normal 98-107 [facility] Comment on above: Order Comment: Speci men Type: BLOOD SPECIMENOrdering Facility: [facility] Address: [address] [place] [address] Performed By: #### 2 4323-8 ####[facility] GIL MILLTOWNCLIA [id number] [place] [address] [place] CO2 [Moles/Vol] 22 mmol/L Normal 22-30 [facility] Comment on above: Order Comment: Speci men Type: BLOOD SPECIMENOrdering Facility: [facility] Address: [address] [place] [address] Performed By: #### 2 4323-8 ####[facility] YINKARIOTAMMY [id number] [place] [address] [place] Creatinine [Mass/Vol] 0.85 mg/dL Normal 0.73-1.22 [facility] Comment on above: Order Comment: Speci men Type: BLOOD SPECIMENOrdering Facility: [facility] Address: [address] [place] [address] Performed By: #### 2 4323-8 ####[facility] [id number] [place] [address] [place] Creatinine and Glomerular filtration rate.predicted panel (S/P/Bld) 88 mL/min/1.73m??? Normal >=60 [facility] Comment on above: Order Comment: Speci men Type: BLOOD SPECIMENOrdering Facility: [facility] Address: [address] [place] [address] Result Comment: Beatrice mated Glomerular Filtration Rate (eGFR) is calculated using the 2020 CKD-EPI creatinine equation. This equation utilizes serum creatinine, sex, and age as parameters. The creatinine assay has traceable calibration to isotope dilution-mass spectrometry. Refer to KDIGO guidelines for clinical interpretation. In patients with unstable renal function, e.g. those with acute kidney injury, the eGFR may not accurately reflect actual GFR. Performed By: #### 2 4323-8 ####[facility]ENTERLIA [id number] [place] [address] [place] Glucose [Mass/Vol] 139 mg/dL High 74-99 [facility] Comment on above: Order Comment: Speci men Type: BLOOD SPECIMENOrdering Facility: [facility] Address: [address] [place] [address] Result Comment: The [place] Diabetes Association (ADA) provides guidance for cutoff values for fasting glucose and random glucose. The ADA defines fasting as no caloric intake for at least 8 hours. Fasting plasma glucose results between 100 to 125 [...] Standards of Medical Care in Diabetes 2016, [place] Diabetes Association. Diabetes Care. 2016.39(Suppl 1). Performed By: #### 2 4323-8 ####[facility] MILLTOWNCLIA [id number] [place] [address] [place] Potassium [Moles/Vol] 4.5 mmol/L Normal 3.7-5.1 [facility] Comment on above: Order Comment: Speci men Type: BLOOD SPECIMENOrdering Facility: [facility] Address: [address] [place] [address] Performed By: #### 2 4323-8 ####[facility] ERWWVLIA [id number] [place] [address] [place] Protein [Mass/Vol] 7.4 g/dL Normal 6.3-8.0 [facility] Comment on above: Order Comment: Speci men Type: BLOOD SPECIMENOrdering Facility: [facility] Address: [address] [place] [address] Performed By: #### 2 4323-8 ####[facility] MILLTOWNCLIA [id number] [place] [address] [place] Sodium [Moles/Vol] 138 mmol/L Normal 136-144 [facility] Comment on above: Order Comment: Speci men Type: BLOOD SPECIMENOrdering Facility: [facility] Address: [address] [place] [address] Performed By: #### 2 4323-8 ####[facility] MILLTOWNCLIA [id number] [place] [address] [place] Urea nitrogen [Mass/Vol] 14 mg/dL Normal 9-24 [facility] Comment on above: Order Comment: Clementina zavala Type: BLOOD SPECIMENOrdering Facility: [facility] Address: [address] [place] [address] Performed By: #### 2 4323-8 ####[facility] [id number] [place] [address] [place] HbA1c (Bld)on 07-29-2024 Average glucose Estimated from glycated hemoglobin (Bld) [Mass/Vol] 108 mg/dL Normal [facility] Comment on above: Order Comment: Clementina zavala Type: BLOOD SPECIMENOrdering Facility: [facility] Address: [address] [place] [address] Result Comment: eAG: (Estimated average glucose) is a calculated value from HgbA1c and is labor relations representative of the average blood glucose level in the last 2-3 month period. Performed By: #### 5 7021-8 ####[facility] [id number] [place] [address] [place]#### 38412-0 ####[facility] LABCLIA [id number] [address] [place] HbA1c (Bld) [Mass fraction] 5.4 % Normal 4.3-5.6 [facility] Comment on above: Order Comment: Clementina zavala Type: BLOOD SPECIMENOrdering Facility: [facility] Address: [address] [place] [address] Result Comment: [place] Diabetes Association guidelines indicate that patients with HgbA1c in the range 5.7-6.4% are at increased risk for development of diabetes, and intervention by lifestyle modification may be beneficial. HgbA1c greater or equal to 6.5% is considered diagnostic of diabetes. Performed By: #### 5 7021-8 ####[facility] [id number] [address] [place]#### 58989-2 ####[facility] LABCLIA [id number] [address] OF [facility] XR CHEST 2V FRONTAL/LATon XR CHEST 2V FRONTAL/LAT * * *Final Repor t* * * DATE OF EXAM: Jul 29 2024 3:32PM WOX [id number] - XR CHEST 2V FRONTAL/LAT / PROCEDURE REASON: CHAU (dyspnea on exertion) * * * * Physician Interpretation * * * * EXAMINATION: CHEST RADIOGRAPH (2 VIEW FRONTAL and LATERAL) CLINICAL HISTORY: CHAU (dyspnea on exertion) MQ: XC2_6 EXAM DATE/TIME: 07/29/2024 3:32 PM COMPARISON: 02/06/2024 CT 07/17/2021 RESULT: Lines, tubes, and devices: None. Lungs and pleura: No consolidation. No lung mass. Stable blunting of the costophrenic angles.. No pneumothorax. Stable linear atelectasis or fibrosis at the left base Cardiomediastinal silhouette: Stable cardiomediastinal silhouette. Bones and soft tissues: Unremarkable. IMPRESSION: No developing abnormality or acute process Relocation Services Specialist: RUDDY Transcribe Date/Time: Jul 30 2024 8:20A Dictated by : THAD GARCIA MD This examination was interpreted and the report reviewed and electronically signed by: THAD GARCIA MD on Jul 30 2024 8:26AM EST [id number] CN Normal [facility] XR Chest PA and Lateralon Radiology Study observation (narrative) [facility] Hilary 07-27-2024 CNPN Telephone (NEAGCLM) VICKI RANDLE ([id number]) 1945 M Date Time Provider Department 07/27/24 MANDO LING NEAGCLM During your visit today, we recorded the following information about you: Pillo Lizama MA 07/27/2024 11:21 AM Signed Referral placed for physical therapy in the [facility] Internal Referral Portal. Confirmation # [id number] Pillo Lizama Ma Allergies As of Date: 07/27/2024 Noted Allergy Reaction LIPITOR (ATORVASTATIN CALCIUM) 03/11/2005 5 - Intolerance ROSUVASTATIN CALCIUM 03/02/2017 5 - Intolerance TVYPEXK-ALS-KUK REDUCTASE INHIBIT*01/10/2018 17 - Myalgia Date Reviewed: 04/27/2024 Reviewed by: Laura Hills LPN - Fully Assessed Reason for Visit: Internal Referrals/resources [908] Prescriptions as of 07/27/2024 - finasteride (PROSCAR) 5 mg tablet Take 1 tablet by mouth once daily. - tamsulosin (FLOMAX) 0.4 mg Take 1 capsule by mouth once daily. - gabapentin (NEURONTIN) 300 mg capsule Take 1 capsule by mouth three times a day for 30 days. - melatonin 3 mg tablet Take 3 tablets by mouth daily at bedtime. - EQORPIBA-HLEFXUWXW-D EXAMETH 3.5 MG/ML-10,000 UNIT/ML-0.1% EYE DROPS Use 1 Drop in both eyes four times daily. - evolocumab (REPATHA SURECLICK) 140 mg/mL pen injector Inject 140 mg subcutaneously every 2 weeks. - acetaminophen (TYLENOL) 325 mg tablet Take 3 tablets by mouth every 6 hours as needed for pain. - fluticasone (FLONASE) 50 mcg/actuation nasal spray Use 2 Sprays in each nostril once daily. Rinse mouth after use. - aspirin, enteric coated (ECOTRIN LOW STRENGTH) 81 mg EC tablet Take 1 tablet by mouth once daily. Problem List As Of Date 07/27/2024 Noted Resolved Hyperlipidemia with target LDL less than 100 [E*01/30/2005 ESOPHAGEAL REFLUX [K21.9] PERS HX SKIN MALIGNANCY NEC [Z85.828] 05/10/2006 Cellulitis and abscess of trunk [L03.319, L02.2*02/05/2007 04/13/2014 BPH with obstruction/lower urinary tract sympto*11/26/2007 Bladder neck obstruction [N32.0] 11/26/2007 12/02/2018 Prostatitis [N41.9] 01/08/2012 04/13/2014 AAA (abdominal aortic aneurysm) (HCC) [I71.40] 02/06/2012 Nodule of right lung [R91.1] 04/17/2012 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] 06/27/2014 Venous insufficiency of both lower extremities *07/01/2014 Benign hypertension [I10] 07/13/2015 Episodic paroxysmal hemicrania, 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 Situational depression [F43.21] 07/03/2016 Pulmonary emphysema (HCC) [J43.9] 12/31/2016 Closed fracture of one rib of left side [S22.32*03/12/2017 07/12/2017 Basal cell carcinoma (BCC) of postauricular reg*01/09/2018 Actinic keratosis [L57.0] 01/09/2018 Acute deep vein thrombosis (DVT) of femoral vei*03/16/2018 12/02/2018 Chronic anticoagulation [Z79.01] 03/16/2018 Pleural effusion [J90] 06/17/2018 History of DVT of lower extremity [Z86.718] 12/02/2018 Intention tremor [G25.2] 12/20/2019 Arthritis of left sternoclavicular joint [M19.0*04/20/2020 Chewing tobacco use [Z72.0] Traumatic pneumothorax [S27.0XXA] 07/16/2021 07/18/2021 Fall from ground level [W18.30XA] 07/16/2021 Closed fracture of one rib of right side with r*07/16/2021 Contusion of right lung [S27.321A] 07/16/2021 At high risk for falls [Z91.81] 07/04/2022 Obesity, Class I, BMI 30-34.9 [E66.811] 10/01/2022 Nicotine use disorder, F17.2 [F17.200] 04/05/2023 Trauma [T14.90XA] 01/01/2024 Fall [W19.XXXA] 01/01/2024 Closed nondisplaced fracture of fourth cervical*01/01/2024 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] 01/01/2024 Spinal cord injury at C1-C4 level (HCC) [S14.10*01/01/2024 Alcohol abuse [F10.10] 01/01/2024 Hypokalemia [E87.6] 01/01/2024 Acute respiratory failure following trauma and *01/02/2024 04/04/2024 Vitamin D deficiency [E55.9] 01/07/2024 BMI 30.0-30.9,adult [Z68.30] 01/07/2024 Central cord syndrome (HCC) [S14.129A] 01/07/2024 History of fusion of cervical spine [Z98.1] Cervical spine fracture (HCC) [S12.9XXA] Encounter Status:Closed by PILLO LIZAMA MA on 07/27/24 Normal [facility] EMG(NEURO/NI)on 05-28-2024 Results can be seen in attached scanned documents. If you are a patient reviewing this test result, call the doctor who ordered the test with any questions. [facility] US ABD RIGHT UPPER QUADRANTo n 05-06-2024 US ABD RIGHT UPPER QUADRANT * * *Final Report* * * DATE OF EXAM: May 06 2024 2:28PM [facility] 1032 - US ABD RIGHT UPPER QUADRANT / PROCEDURE REASON: Elevated alkaline phosphatase level * * * * Physician Interpretation * * * * EXAMINATION: RIGHT UPPER QUADRANT AND SPLEEN ULTRASOUND CLINICAL HISTORY: Elevated LFTs TECHNIQUE: Sonography of the right upper quadrant and spleen was performed. Images were obtained and stored in a permanent archive. MQ: URUQ_2 COMPARISON: CT abdomen pelvis 01/10/2017. RESULT: Pancreas: Normal sonographic appearance. Portions obscured: tail Liver: Portions of the liver are obscured due to bowel. Echotexture: Normal, homogeneous. Echogenicity: Normal Surface contour: Smooth Lesions: None. Biliary: No intrahepatic biliary duct dilation. CBD: 0.3 cm at the hilum. Gallbladder: Prior cholecystectomy Right Kidney: No hydronephrosis. Simple interpolar cyst measuring up to 4.2 cm in the mid pole. Left kidney: No hydronephrosis. Simple appearing cysts measuring up to 6.6 cm in the upper pole and 2.2 cm in the lower pole. Ascites: None. Spleen: The craniocaudal length of the spleen is 9.6 cm, normal. There are no splenic lesions. IMPRESSION: No acute sonographic findings. Simple appearing bilateral renal cysts. Relocation Services Specialist: [facility] Transcribe Date/Time: May 08 2024 1:05P Dictated by : SHIV LEIVA MD This examination was interpreted and the report reviewed and electronically signed by: SHIV LEIVA MD on May 08 2024 1:08PM EST [id number] CN Normal [facility] US ABD SPLEEN -NBon 05-06-20 US ABD SPLEEN -NB * * *Final Report* * * DATE OF EXAM: May 06 2024 2:28PM [facility] 1232 - US ABD SPLEEN -NB / PROCEDURE REASON: Elevated alkaline phosphatase level * * * * Physician Interpretation * * * * EXAMINATION: RIGHT UPPER QUADRANT AND SPLEEN ULTRASOUND CLINICAL HISTORY: Elevated LFTs TECHNIQUE: Sonography of the right upper quadrant and spleen was performed. Images were obtained and stored in a permanent archive. MQ: URUQ_2 COMPARISON: CT abdomen pelvis 01/10/2017. RESULT: Pancreas: Normal sonographic appearance. Portions obscured: tail Liver: Portions of the liver are obscured due to bowel. Echotexture: Normal, homogeneous. Echogenicity: Normal Surface contour: Smooth Lesions: None. Biliary: No intrahepatic biliary duct dilation. CBD: 0.3 cm at the hilum. Gallbladder: Prior cholecystectomy Right Kidney: No hydronephrosis. Simple interpolar cyst measuring up to 4.2 cm in the mid pole. Left kidney: No hydronephrosis. Simple appearing cysts measuring up to 6.6 cm in the upper pole and 2.2 cm in the lower pole. Ascites: None. Spleen: The craniocaudal length of the spleen is 9.6 cm, normal. There are no splenic lesions. IMPRESSION: No acute sonographic findings. Simple appearing bilateral renal cysts. Relocation Services Specialist: [facility] Transcribe Date/Time: May 08 2024 1:05P Dictated by : SHIV LEIVA MD This examination was interpreted and the report reviewed and electronically signed by: SHIV LEIVA MD on May 08 2024 1:08PM EST [id number] CN Normal [facility] XR SHOULDER 2V AP/TRUE AP LT on 05-06-2024 XR SHOULDER 2V AP/TRUE AP LT * * *Final Report* * * DATE OF EXAM: May 06 2024 2:27PM [facility] [id number] - XR SHOULDER 2V AP/TRUE AP LT / PROCEDURE REASON: S/P cervical spinal fusion * * * * Physician Interpretation * * * * PROCEDURE: Left shoulder INDICATION: S/P cervical spinal fusion .PT STATES HE FELL ON LEFT SHOULDER BACK IN [place] TECHNIQUE: XR SHOULDER 2V AP/TRUE AP LT COMPARISON: None FINDINGS: Mild to moderate AC joint and mild glenohumeral joint osteoarthrosis. Juxta-articular ossification cephalad to the AC joint. Acromiohumeral interval is maintained. No fracture or dislocation. Partially visualized postoperative change in the cervical spine and old granulomatous disease in the left lung. IMPRESSION: No acute abnormality Relocation Services Specialist: RUDDY Transcribe Date/Time: May 09 2024 12:42P Dictated by : MARY ANN MARION MD This examination was interpreted and the report reviewed and electronically signed by: MARY ANN MARION MD on May 09 2024 12:43PM EST [id number] CN Normal [facility] CNPNon 05-04-2024 CNPN Telephone (FAMPWS) VICKI RANDLE ([id number]) 1945 M Date Time Provider Department [facility]04[facility] your visit today, we recorded the following information about you: Kanchan Ge MD 05/04/2024 10:35 AM Signed Patient's alk phos remains elevated without elevated LFTs. Patient's liver fraction for alk phos is elevated. Recommend liver US for further evaluation. Patient's mild anemia is stable over the last 2 months. Will continue to monitor at next OV. Likely related to history of fall with vertebral artery dissection. Laura Hills LPN 05/04/2024 11:05 AM Signed Phoned patient and VM left for him to return call and request to speak with a nurse for provider update re: results. OZ Norris Barbara, RN 05/04/2024 2:08 PM Signed Pt returned the call and notified of Dr. Ge's results and information. Transferred pt to a wastewater plant operator to set up his liver ultrasound. Allergies As of Date: 05/04/2024 Noted Allergy Reaction LIPITOR (ATORVASTATIN CALCIUM) 03/11/2005 5 - Intolerance ROSUVASTATIN CALCIUM 03/02/2017 5 - Intolerance YLYQOFL-QRJ-TQG REDUCTASE INHIBIT*01/10/2018 17 - Myalgia Date Reviewed: 04/27/2024 Reviewed by: Laura Hills LPN - Fully Assessed Reason for Visit: Results [95] Appointment [186] Cmt: for liver ultrasound Primary Visit Diagnosis:Elevated alkaline phosphatase level [R74.8] Order(s):US ABD RIGHT UPPER QUADRANT [[id number]] Order #: [id number] FUTURE Prescriptions as of 05/04/2024 - finasteride (PROSCAR) 5 mg tablet Take 1 tablet by mouth once daily. - tamsulosin (FLOMAX) 0.4 mg Take 1 capsule by mouth once daily. - gabapentin (NEURONTIN) 300 mg capsule Take 1 capsule by mouth three times a day for 30 days. - melatonin 3 mg tablet Take 3 tablets by mouth daily at bedtime. - PMPCRFLI-BOZBLPRMK-V EXAMETH 3.5 MG/ML-10,000 UNIT/ML-0.1% EYE DROPS Use 1 Drop in both eyes four times daily. - evolocumab (REPATHA SURECLICK) 140 mg/mL pen injector Inject 140 mg subcutaneously every 2 weeks. - acetaminophen (TYLENOL) 325 mg tablet Take 3 tablets by mouth every 6 hours as needed for pain. - fluticasone (FLONASE) 50 mcg/actuation nasal spray Use 2 Sprays in each nostril once daily. Rinse mouth after use. - aspirin, enteric coated (ECOTRIN LOW STRENGTH) 81 mg EC tablet Take 1 tablet by mouth once daily. 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] 06/27/2014 Venous insufficiency of both lower extremities *07/01/2014 Benign hypertension [I10] 07/13/2015 Episodic paroxysmal hemicrania, 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 Situational depression [F43.21] 07/03/2016 Pulmonary emphysema (HCC) [J43.9] 12/31/2016 Closed fracture of one rib of left side [S22.32*03/12/2017 07/12/2017 Basal cell carcinoma (BCC) of postauricular reg*01/09/2018 Actinic keratosis [L57.0] 01/09/2018 Acute deep vein thrombosis (DVT) of femoral vei*03/16/2018 12/02/2018 Chronic anticoagulation [Z79.01] 03/16/2018 Pleural effusion [J90] 06/17/2018 History of DVT of lower extremity [Z86.718] 12/02/2018 Intention tremor [G25.2] 12/20/2019 Arthritis of left sternoclavicular joint [M19.0*04/20/2020 Chewing tobacco use [Z72.0] Traumatic pneumothorax [S27.0XXA] 07/16/2021 07/18/2021 Fall from ground level [W18.30XA] 07/16/2021 Closed fracture of one rib of right side with r*07/16/2021 Contusion of right lung [S27.321A] 07/16/2021 At high risk for falls [Z91.81] 07/04/2022 Obesity, Class I, BMI 30-34.9 [E66.811] 10/01/2022 Nicotine use disorder, F17.2 [F17.200] 04/05/2023 Trauma [T14.90XA] 01/01/2024 Fall [W19.XXXA] 01/01/2024 Closed nondisplaced fracture of fourth cervical*01/01/2024 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] 01/01/2024 Spinal cord injury at C1-C4 level (HCC) [S14.10*01/01/2024 Alcohol abuse [F10.10] 01/01/2024 Hypokalemia [E87.6] 01/01/2024 Acute respiratory failure following trauma and *01/02/2024 04/04/2024 Vitamin D deficiency [E55.9] 01/07/2024 BMI 30.0-30.9,adult [Z68.30] 01/07/2024 Central cord syndrome (HCC) [S14.129A] 01/07/2024 History of fusion of cervical spine [Z98.1] Cervical spine fracture (HCC) [S12.9XXA] Encounter Status:Closed by ROSE PASCUAL on 05/04/24 Normal [facility] Comprehensive metabolic 2000 panelon 04-28-2024 Albumin [Mass/Vol] 3.3 g/dL Low 3.9 - 4.9 g/dL [facility] ALP [Catalytic activity/Vol] 216 U/L High 38 - 113 U/L [facility] ALT [Catalytic activity/Vol] 6 U/L Low 10 - 54 U/L [facility] Anion gap [Moles/Vol] 11 mmol/L 8 - 15 mmol/L [facility] AST [Catalytic activity/Vol] 13 U/L Low 14 - 40 U/L [facility] Bilirubin [Mass/Vol] 0.2 mg/dL 0.2 - 1 .3 mg/dL [facility] Calcium [Mass/Vol] 8.8 mg/dL 8.5 - 10. 2 mg/dL [facility] Chloride [Moles/Vol] 103 mmol/L 98 - 10 7 mmol/L [facility] CO2 [Moles/Vol] 24 mmol/L 22 - 30 mmol/L [facility] Creatinine [Mass/Vol] 0.85 mg/dL 0.73 - 1.22 mg/dL [facility] GFR/1.73 sq M.predicted among non-blacks MDRD (S/P/Bld) [Vol rate/Area] 89 mL/min/{1.73_m2} - PINF [facility] Comment on above: Estimated Glomerular Filtration Rate (eGFR) is calculated using the 2020 CKD-EPI creatinine equation. This equation utilizes serum creatinine, sex, and age as parameters. The creatinine assay has traceable calibration to isotope dilution-mass spectrometry. Refer to KDIGO guidelines for clinical interpretation. In patients with unstable renal function, e.g. those with acute kidney injury, the eGFR may not accurately reflect actual GFR. Glucose [Mass/Vol] 73 mg/dL Low 74 - 99 mg/dL [facility] Comment on above: The [place] Diab[employer] s Association (ADA) provides guidance for cutoff values for fasting glucose and random glucose. The ADA defines fasting as no caloric intake for at least 8 hours. Fasting plasma glucose results between 100 to 125 [...] Standards of Medical Care in Diabetes 2016, [place] Diabetes Association. Diabetes Care. 2016.39(Suppl 1). Interpretation and review of laboratory results Abnormal [facility] Potassium [Moles/Vol] 4.1 mmol/L 3.7 - 5.1 mmol/L [facility] Protein [Mass/Vol] 7.0 g/dL 6.3 - 8.0 g/dL [facility] Sodium [Moles/Vol] 138 mmol/L 136 - 144 mmol/L [facility] Urea nitrogen [Mass/Vol] 8 mg/dL Low 9 - 24 mg/dL [facility] GGTon 04-28-2024 Gamma glutamyl transferase [Catalytic activity/Vol] 13 U/L 10 - 70 U/L [facility] Gamma glutamyl transferase [ Catalytic activity/Vol]on 04-28-2024 Interpretation and review of laboratory results Normal [facility] No Panel Informationon 04-28 [facility] ALKALINE PHOSPHATASE ISOENZY MES (P)on 04-27-2024 ALK PHOS BONE % 13.2 % Normal 10.7-68.3 [facility] Comment on above: Order Comment: Speci men Type: BLOOD SPECIMENOrdering Facility: [facility] Address: [address] [place] [address] Performed By: #### A LKISOP ####[facility] LABCLIA [id number] [place] [address] [place] ALK PHOS LIVER % 86.8 % High 26.0-86.2 [facility] Comment on above: Order Comment: Speci men Type: BLOOD SPECIMENOrdering Facility: [facility] Address: [address] [place] [address] Performed By: #### A LKISOP ####[facility] LABCLIA [id number] [place] [address] [place] BONE FRACTION 28.5 U/L Normal 12.9-52.6 [facility] Comment on above: Order Comment: Speci men Type: BLOOD SPECIMENOrdering Facility: [facility] Address: [address] [place] [address] Performed By: #### A LKISOP ####[facility] LABCLIA [id number] [place] [address] [place] INTESTINE FRACTION 0.0 U/L Normal 0.0-16.3 [facility] Comment on above: Order Comment: Speci men Type: BLOOD SPECIMENOrdering Facility: [facility] Address: [address] [place] [address] Performed By: #### A LKISOP ####[facility] LABCLIA [id number] [place] [address] [place] LIVER FRACTION 187.5 U/L High 16.0-69.3 [facility] Comment on above: Order Comment: Speci men Type: BLOOD SPECIMENOrdering Facility: [facility] Address: [address] [place] [address] Performed By: #### A LKISOP ####[facility] LABCLIA [id number] [address] [place] Neutrophils/100 WBC (Bld) 0.0 % Normal 0.0-24.2 [facility] Comment on above: Order Comment: Speci men Type: BLOOD SPECIMENOrdering Facility: [facility] Address: [address] [place] [address] Performed By: #### A LKISOP ####[facility] LABCLIA [id number] [place] [address] [place] ALP SerPl-cCncon 04-27-2024 ALP [Catalytic activity/Vol] 216 U/L High 38-113 [facility] Comment on above: Order Comment: Speci men Type: BLOOD SPECIMENOrdering Facility: [facility] Address: [address] [place] [address] Performed By: #### 2 4323-8, 2324-2, 6768-6 ####[facility] LABCLIA [id number] [place] [address] [place] CBC W Auto Differential pane l (Bld)on 04-27-2024 Basophils (Bld) [#/Vol] 0.04 10*3/uL [facility] Basophils/100 WBC (Bld) 0.6 % [facility] Differential cell count method Nom (Bld) Auto [facility] Eosinophils (Bld) [#/Vol] 0.12 10*3/uL [facility] Eosinophils/100 WBC (Bld) 1.7 % [facility] Erythrocyte distribution width (RBC) [Ratio] 15.4 % High 11.5 - 15.0 % [facility] Hematocrit (Bld) [Volume fraction] 38.2 % Low 39.0 - 51.0 % [facility] Hemoglobin (Bld) [Mass/Vol] 11.3 g/dL Low 13.0 - 17.0 g/dL [facility] Immature granul[facility] (Bld) [#/Vol] [facility] Immature granulocytes/100 WBC (Bld) 0.3 % [facility] Interpretation and review of laboratory results Abnormal [facility] Lymphocytes (Bld) [#/Vol] 1.82 10*3/uL [facility] Lymphocytes/100 WBC (Bld) 26.2 % [facility] MCH (RBC) [Entitic mass] 24.4 pg Low 26.0 - 34.0 pg [facility] MCHC (RBC) [Mass/Vol] 29.6 g/dL Low 30.5 - 36.0 g/dL [facility] MCV (RBC) [Entitic vol] 82.3 fL 80.0 - 100.0 fL [facility] Monocytes (Bld) [#/Vol] 0.61 10*3/uL [facility] Monocytes/100 WBC (Bld) 8.8 % [facility] Neutrophils (Bld) [#/Vol] 4.34 10*3/uL [facility] Neutrophils/100 WBC (Bld) 62.4 % [facility] Nucleated RBC (Bld) [#/Vol] [facility] Nucleated RBC/100 WBC (Bld) [Ratio] 0.0 % /100 WBC [facility] Platelet mean volume (Bld) [Entitic vol] 11.0 fL 9.0 - 12.7 fL [facility] Platelets (Bld) [#/Vol] 216 10*3/uL [facility] RBC (Bld) [#/Vol] 4.64 10*6/uL 4.20 - 6.0 0 m/uL [facility] WBC (Bld) [#/Vol] 6.95 10*3/uL [facility] Basophils (Bld) [#/Vol] 0.04 10*3/uL Normal <0.11 [facility] Comment on above: Order Comment: Speci men Type: BLOOD SPECIMENOrdering Facility: [facility] Address: [address] [place] [address] Performed By: #### 5 7021-8 ####[facility] LABCLIA [id number] [address] [place] Basophils/100 WBC (Bld) 0.6 % Normal [facility] Comment on above: Order Comment: Speci men Type: BLOOD SPECIMENOrdering Facility: [facility] Address: [address] [place] [address] Performed By: #### 5 7021-8 ####[facility] LABCLIA [id number] [place] [address] [place] Differential cell count method Nom (Bld) Auto Normal [facility] Comment on above: Order Comment: Speci men Type: BLOOD SPECIMENOrdering Facility: [facility] Address: [address] [place] [address] Performed By: #### 5 7021-8 ####[facility] LABCLIA [id number] [place] [address] [place] Eosinophils (Bld) [#/Vol] 0.12 10*3/uL Normal <0.46 [facility] Comment on above: Order Comment: Speci men Type: BLOOD SPECIMENOrdering Facility: [facility] Address: [address] [place] [address] Performed By: #### 5 7021-8 ####[facility] LABCLIA [id number] [place] [address] [place] Eosinophils/100 WBC (Bld) 1.7 % Normal [facility] Comment on above: Order Comment: Speci men Type: BLOOD SPECIMENOrdering Facility: [facility] Address: [address] [place] [address] Performed By: #### 5 7021-8 ####[facility] LABCLIA [id number] [place] [address] [place] Erythrocyte distribution width (RBC) [Ratio] 15.4 % High 11.5-15.0 [facility] Comment on above: Order Comment: Speci men Type: BLOOD SPECIMENOrdering Facility: [facility] Address: [address] [place] [address] Performed By: #### 5 7021-8 ####[facility] LABCLIA [id number] [place] [address] [place] Hematocrit (Bld) [Volume fraction] 38.2 % Low 39.0-51.0 [facility] Comment on above: Order Comment: Speci men Type: BLOOD SPECIMENOrdering Facility: [facility] Address: [address] [place] [address] Performed By: #### 5 7021-8 ####[facility] LABCLIA [id number] [place] [address] [place] Hemoglobin (Bld) [Mass/Vol] 11.3 g/dL Low 13.0-17.0 [facility] Comment on above: Order Comment: Speci men Type: BLOOD SPECIMENOrdering Facility: [facility] Address: [address] [place] [address] Performed By: #### 5 7021-8 ####[facility] LABIA [id number] [place] [address] [place] Immature granulocytes (Bld) [#/Vol] 10*3/uL Normal <0.10 [facility] Comment on above: Order Comment: Speci men Type: BLOOD SPECIMENOrdering Facility: [facility] Address: [address] [place] [address] Performed By: #### 5 7021-8 ####[facility] LABIA [id number] [place] [address] [place] Immature granulocytes/100 WBC (Bld) 0.3 % Normal [facility] Comment on above: Order Comment: Speci men Type: BLOOD SPECIMENOrdering Facility: [facility] Address: [address] [place] [address] Performed By: #### 5 7021-8 ####[facility] LABIA [id number] [place] [address] [place] Lymphocytes (Bld) [#/Vol] 1.82 10*3/uL Normal 1.00-4.00 [facility] Comment on above: Order Comment: Speci men Type: BLOOD SPECIMENOrdering Facility: [facility] Address: [address] [place] [address] Performed By: #### 5 7021-8 ####[facility] LABCLIA [id number] [place] [address] [place] Lymphocytes/100 WBC (Bld) 26.2 % Normal [facility] Comment on above: Order Comment: Speci men Type: BLOOD SPECIMENOrdering Facility: [facility] Address: [address] [place] [address] Performed By: #### 5 7021-8 ####[facility] LABIA [id number] [place] [address] [place] MCH (RBC) [Entitic mass] 24.4 pg Low 26.0-34.0 [facility] Comment on above: Order Comment: Speci men Type: BLOOD SPECIMENOrdering Facility: [facility] Address: [address] [place] [address] Performed By: #### 5 7021-8 ####[facility] LABIA [id number] [place] [address] [place] MCHC (RBC) [Mass/Vol] 29.6 g/dL Low 30.5-36.0 [facility] Comment on above: Order Comment: Speci men Type: BLOOD SPECIMENOrdering Facility: [facility] Address: [address] [place] [address] Performed By: #### 5 7021-8 ####[facility] LABIA [id number] [place] [address] [place] MCV (RBC) [Entitic vol] 82.3 fL Normal 80.0-100.0 [facility] Comment on above: Order Comment: Speci men Type: BLOOD SPECIMENOrdering Facility: [facility] Address: [address] [place] [address] Performed By: #### 5 7021-8 ####[facility] LABIA [id number] [place] [address] [place] Monocytes (Bld) [#/Vol] 0.61 10*3/uL Normal <0.87 [facility] Comment on above: Order Comment: Speci men Type: BLOOD SPECIMENOrdering Facility: [facility] Address: [address] [place] [address] Performed By: #### 5 7021-8 ####[facility] LABCLIA [id number] [place] [address] [place] Monocytes/100 WBC (Bld) 8.8 % Normal [facility] Comment on above: Order Comment: Speci men Type: BLOOD SPECIMENOrdering Facility: [facility] Address: [address] [place] [address] Performed By: #### 5 7021-8 ####[facility] LABCLIA [id number] [place] [address] [place] Neutrophils (Bld) [#/Vol] 4.34 10*3/uL Normal 1.45-7.50 [facility] Comment on above: Order Comment: Speci men Type: BLOOD SPECIMENOrdering Facility: [facility] Address: [address] [place] [address] Performed By: #### 5 7021-8 ####[facility] LABCLIA [id number] [place] [address] [place] Neutrophils/100 WBC (Bld) 62.4 % Normal [facility] Comment on above: Order Comment: Speci men Type: BLOOD SPECIMENOrdering Facility: [facility] Address: [address] [place] [address] Performed By: #### 5 7021-8 ####[facility] LABCLIA [id number] [place] [address] [place] Nucleated RBC (Bld) [#/Vol] 10*3/uL Normal <0.01 [facility] Comment on above: Order Comment: Speci men Type: BLOOD SPECIMENOrdering Facility: [facility] Address: [address] [place] [address] Performed By: #### 5 7021-8 ####[facility] LABCLIA [id number] [place] [address] [place] Nucleated RBC/100 WBC (Bld) [Ratio] 0.0 /100 WBC Normal [facility] Comment on above: Order Comment: Speci men Type: BLOOD SPECIMENOrdering Facility: [facility] Address: [address] [place] [address] Performed By: #### 5 7021-8 ####[facility] LABIA [id number] [place] [address] [place] Platelet mean volume (Bld) [Entitic vol] 11.0 fL Normal 9.0-12.7 [facility] Comment on above: Order Comment: Speci men Type: BLOOD SPECIMENOrdering Facility: [facility] Address: [address] [place] [address] Performed By: #### 5 7021-8 ####[facility] LABIA [id number] [place] [address] [place] Platelets (Bld) [#/Vol] 216 10*3/uL Normal 150-400 [facility] Comment on above: Order Comment: Speci men Type: BLOOD SPECIMENOrdering Facility: [facility] Address: [address] [place] [address] Performed By: #### 5 7021-8 ####[facility] LABIA [id number] [place] [address] [place] RBC (Bld) [#/Vol] 4.64 10*6/uL Normal 4.20-6.00 [facility] Comment on above: Order Comment: Speci men Type: BLOOD SPECIMENOrdering Facility: [facility] Address: [address] [place] [address] Performed By: #### 5 7021-8 ####[facility] LABIA [id number] [place] [address] [place] WBC (Bld) [#/Vol] 6.95 10*3/uL Normal 3.70-11.00 [facility] Comment on above: Order Comment: Speci men Type: BLOOD SPECIMENOrdering Facility: [facility] Address: [address] [place] [address] Performed By: #### 5 7021-8 ####[facility] LABCLIA [id number] [id number] [id number] [place] CNOVon 04-27-2024 CNOV Office Visit (FAMPWS) VICKI RANDLE ([id number]) 1945 M Date Time Provider Department 04/27/24 2:00 PM [facility] visit today, we recorded the following information about you: Pulse Respiration Blood pressure Weight 56/minute 16/minute 110/62 97.3 kg Kanchan Ge MD 04/28/2024 12:25 PM Signed Chief Complaint Patient presents with: Follow Up: 2 month -has home PT order that was placed yesterday HPI Vicki Randle is a 78 year old male who presents here today for Above Complaints. Accompanied today by his son. Patient had follow up with neurosurgery yesterday for follow up on his cervical spine fracture s/p fusion after fall at home with following recommendations: Mr. 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 He has bilateral C5 palsy. At her last visit, he had some weakness in his biceps and triceps as well, but this is improving. He is not really able to lift his shoulders up at all. He is working with physical therapy, but feels that home health PT visits were quite helpful for him. He had an MRI today which shows no residual stenosis. I explained that he likely has C5 palsy, and the only treatment is time and therapy. I will order an EMG study of his upper extremities to see if we can diagnosis electrically. I will also order x-rays of the shoulders bilaterally to assess for any intrinsic pathology. I will follow-up with him over the phone once his EMG study is complete. Otherwise, I encouraged him to continue therapy and work on strengthening his muscles. I will see him back in 3 months with AP and lateral x-rays. All questions were answered. Patient states that he is drinking 1 beer per week, but has cut out the hard liquor. No falls since our last OV. Using wheeled walker for ambulation. Needs to complete xrays, EMG, and set up home health care. Doing HEP almost every day. Patient states that he thinks he is taking his flomax and Proscar on a daily basis and has weak stream which has not changed recently. Not sure about the flomax and will check when he gets home. Denies dysuria, hematuria, nocturia, incomplete emptying. BP in good range without rx. Due for repeat labs to monitor high alk phos thought to be caused by recent fracture. Past medical history, appointments, medications, allergies reviewed. Previous Medical History PAST MEDICAL HISTORY Diagnosis Date AAA (abdominal aortic aneurysm) ([facility]) 02/06/2012 01/10/17: CT abd 4.8 cm. s/p aortobiliac stent.-Dr. Johan Berg Actinic keratosis On [facility], Dr. Dudley Acute deep vein thrombosis (DVT) of femoral vein of left lower extremity ([facility]) 03/16/2018 02/19/18--on Eliquis At high risk for falls Basal cell carcinoma 2019 left cheek Benign essential tremor Benign hypertension 07/13/2015 BPH with obstruction/lower urinary tract symptoms Bruit right carotid artery Chewing tobacco use Class 1 obesity due to excess calories without serious comorbidity with body mass index (BMI) of 33.0 to 33.9 in adult Closed rib fracture 01/2023 right rib fracture after fall Esophageal reflux Gastroesophageal reflux Facet arthritis of lumbar region 06/27/2014 History of carpal tunnel surgery 1990s Hypertrophy of prostate without urinary obstruction and other lower urinary tract symptoms (LUTS) Hypertrophy of the prostate w/o obstruction Left leg DVT ([facility]) 02/19/2018 Mixed hyperlipidemia Hyperlipidemia 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 Melo Personal history of colonic polyps Pulmonary emphysema (HCC) 12/31/2016 Sebaceous cyst Situational depression 07/03/2016 Squamous cell carcinoma 04/04/2015 Left cheek Venous insufficiency of both lower extremities 07/01/2014 Previous Surgical History PAST SURGICAL HISTORY Procedure Laterality Date COLONOSCOPY 12/29/2017 adenomatous polyp, repeat in 5 years COLONOSCOPY FLX DX W/COLLJ SPEC WHEN PFRMD 08/17/2007 EXCISION TUMOR SOFT TISSUE THIGH/KNEE SUBQ <3CM REMOVED FATTY TUMORS FROM UNDER EXCISION TUMOR SOFT TISSUE THIGH/KNEE SUBQ <3CM RMOVED FATTY TUMORE INT REPAIR SCALP,JAYCOB,TRUNK 7.6-12.5CM 02/24/2007 back LAPS SURG CHOLECYSTECTOMY W/CHOLANGIOGRAPHY 09/07/2007 MRI 02/22/2014 [facility] - mri - right knee PAST SURGICAL HISTORY OF N/A 09/09/2017 Abdominal aneurysm aortic repair PAST SURGICAL HISTORY OF Right 2013 arthroscopic knee surgery PAST SURGICAL HISTORY OF Left excision of knee bursa REM LESION TRUNK,ARM,LEG > 4.0CM 02/24/2007 back REM LESION TRUNK,ARM,LEG > 4.0CM [facility] N/CARPAL TUNNEL SURG (more content not included)... Normal [facility] Comprehensive metabolic 2000 panelon 04-27-2024 Albumin [Mass/Vol] 3.3 g/dL Low 3.9-4.9 [facility] Comment on above: Order Comment: Speci men Type: BLOOD SPECIMENOrdering Facility: [facility] Address: [address] [place] [address] Performed By: #### 2 4323-8, 2324-2, 6768-6 ####[facility] LABCLIA [id number] [place] [address] [place] ALT [Catalytic activity/Vol] 6 U/L Low 10-54 [facility] Comment on above: Order Comment: Speci men Type: BLOOD SPECIMENOrdering Facility: [facility] Address: [address] [place] [address] Performed By: #### 2 4323-8, 2323-2, 68-6 ####[facility] LABCLIA [id number] [address] [address] [place] Anion gap [Moles/Vol] 11 mmol/L Normal 8-15 [facility] Comment on above: Order Comment: Speci men Type: BLOOD SPECIMENOrdering Facility: [facility] Address: [address] [place] [address] Performed By: #### 2 4323-8, 2324-2, 68-6 ####[facility] LABCLIA [id number] [place] [address] [place] AST [Catalytic activity/Vol] 13 U/L Low 14-40 [facility] Comment on above: Order Comment: Speci men Type: BLOOD SPECIMENOrdering Facility: [facility] Address: [address] [place] [address] Performed By: #### 2 4323-8, 232-2, 686 ####[facility] LABCLIA [id number] [place] [address] [place] Bilirubin [Mass/Vol] 0.2 mg/dL Normal 0.2-1.3 [facility] Comment on above: Order Comment: Speci men Type: BLOOD SPECIMENOrdering Facility: [facility] Address: [address] [place] [address] Performed By: #### 2 4323-8, 2323-2, 686 ####[facility] LABCLIA [id number] [place] [id number] [place] Calcium [Mass/Vol] 8.8 mg/dL Normal 8.5-10.2 [facility] Comment on above: Order Comment: Speci men Type: BLOOD SPECIMENOrdering Facility: [facility] Address: [address] [place] [address] Performed By: #### 2 4323-8, 232-2, 68-6 ####[facility] LABCLIA [id number] [address] [address] [place] Chloride [Moles/Vol] 103 mmol/L Normal 98-107 [facility] Comment on above: Order Comment: Speci men Type: BLOOD SPECIMENOrdering Facility: [facility] Address: [address] [place] [address] Performed By: #### 2 4323-8, 2324-2, 6768-6 ####[facility] LABIA [id number] [place] [id number] [place] CO2 [Moles/Vol] 24 mmol/L Normal 22-30 [facility] Comment on above: Order Comment: Speci men Type: BLOOD SPECIMENOrdering Facility: [facility] Address: [address] [place] [address] Performed By: #### 2 4323-8, 2324-2, 6768-6 ####[facility] [id number] [place] [address] [place] Creatinine [Mass/Vol] 0.85 mg/dL Normal 0.73-1.22 [facility] Comment on above: Order Comment: Speci men Type: BLOOD SPECIMENOrdering Facility: [facility] Address: [address] [place] [address] Performed By: #### 2 4323-8, 2324-2, 6768-6 ####[facility] LABIA [id number] [place] [id number] [place] Creatinine and Glomerular filtration rate.predicted panel (S/P/Bld) 89 mL/min/1.73m??? Normal >=60 [facility] Comment on above: Order Comment: Speci men Type: BLOOD SPECIMENOrdering Facility: [facility] Address: [address] [place] [address] Result Comment: Beatrice mated Glomerular Filtration Rate (eGFR) is calculated using the 2020 CKD-EPI creatinine equation. This equation utilizes serum creatinine, sex, and age as parameters. The creatinine assay has traceable calibration to isotope dilution-mass spectrometry. Refer to KDIGO guidelines for clinical interpretation. In patients with unstable renal function, e.g. those with acute kidney injury, the eGFR may not accurately reflect actual GFR. Performed By: #### 2 4323-8, 4-2, 68-6 ####[facility] LABCLIA [id number] [facility] [address] [address] [place] Glucose [Mass/Vol] 73 mg/dL Low 74-99 [facility] Comment on above: Order Comment: Clementina zavala Type: BLOOD SPECIMENOrdering Facility: [facility] Address: [address] [place] [address] Result Comment: The [place] Diabetes Association (ADA) provides guidance for cutoff values for fasting glucose and random glucose. The ADA defines fasting as no caloric intake for at least 8 hours. Fasting plasma glucose results between 100 to 125 [...] Standards of Medical Care in Diabetes 2016, [place] Diabetes Association. Diabetes Care. 2016.39(Suppl 1). Performed By: #### 2 4323-8, 2323-07, 6767-11 ####[facility] LABCLIA [id number] [place] [id number] [place] Potassium [Moles/Vol] 4.1 mmol/L Normal 3.7-5.1 [facility] Comment on above: Order Comment: Clementina zavala Type: BLOOD SPECIMENOrdering Facility: [facility] Address: [address] [place] [address] Performed By: #### 2 4323-8, 2324-2, 6767- ####[facility] LABCLIA [id number] [facility] [address] [address] [place] Protein [Mass/Vol] 7.0 g/dL Normal 6.3-8.0 [facility] Comment on above: Order Comment: Speci men Type: BLOOD SPECIMENOrdering Facility: [facility] Address: [address] [place] [address] Performed By: #### 2 4323-8, 2324-2, 6768-6 ####[facility] LABCLIA [id number] [place] [address] [place] Sodium [Moles/Vol] 138 mmol/L Normal 136-144 [facility] Comment on above: Order Comment: Speci men Type: BLOOD SPECIMENOrdering Facility: [facility] Address: [address] [place] [address] Performed By: #### 2 4323-8, 2324-2, 6768-6 ####[facility] LABCLIA [id number] [place] [address] [place] Urea nitrogen [Mass/Vol] 8 mg/dL Low 9-24 [facility] Comment on above: Order Comment: Speci men Type: BLOOD SPECIMENOrdering Facility: [facility] Address: [address] [place] [address] Performed By: #### 2 4323-8, 2324-2, 68-6 ####[facility] LABCLIA [id number] [place] [address] [place] GGT SerPl-cCncon 04-27-2024 Gamma glutamyl transferase [Catalytic activity/Vol] 13 U/L Normal 10-70 [facility] Comment on above: Order Comment: Speci men Type: BLOOD SPECIMENOrdering Facility: [facility] Address: [address] [place] [address] Performed By: #### 2 4323-8, 2324-2, 6768-6 ####[facility] LABCLIA [id number] [place] [id number] [place] XR CERVICAL 2V AP/LATon 11-2 6-2024 XR CERVICAL 2V AP/LAT * * *Final Report* * * DATE OF EXAM: Apr 27 2024 3:44PM WOX [id number] - XR CERVICAL 2V AP/LAT / PROCEDURE REASON: S/P cervical spinal fusion * * * * Physician Interpretation * * * * Examination: XR CERVICAL 2V AP/LAT, XR SHOULDER 2V AP/TRUE AP RT History: S/P cervical spinal fusion Technique: XR CERVICAL 2V AP/LAT, XR SHOULDER 2V AP/TRUE AP RT Comparison: 02/26/2024 RESULT: Pedicle plate and screw device transfixes C3, C4, C5 and C6. No hardware fracture or loosening. Multilevel degenerative change and osteophytosis. No fracture or prevertebral swelling. Straightening of the normal lordosis Views of the right shoulder reveal mild acromioclavicular and glenohumeral degenerative change. Normal alignment. Joint spaces are maintained. No fracture or focal bony abnormality IMPRESSION: STABLE DEGENERATIVE AND POSTOPERATIVE CERVICAL SPINE MILD DEGENERATIVE CHANGE INVOLVING THE RIGHT SHOULDER Relocation Services Specialist: [facility] Transcribe Date/Time: Apr 28 2024 4:25P Dictated by : THAD GARCIA MD This examination was interpreted and the report reviewed and electronically signed by: THAD GARCIA MD on Apr 28 2024 4:33PM EST [id number] CN Normal [facility] XR SHOULDER 2V AP/TRUE AP RT on 04-27-2024 XR SHOULDER 2V AP/TRUE AP RT * * *Final Report* * * DATE OF EXAM: Apr 27 2024 3:43PM WOX [id number] - XR SHOULDER 2V AP/TRUE AP RT / PROCEDURE REASON: S/P cervical spinal fusion * * * * Physician Interpretation * * * * Examination: XR CERVICAL 2V AP/LAT, XR SHOULDER 2V AP/TRUE AP RT History: S/P cervical spinal fusion Technique: XR CERVICAL 2V AP/LAT, XR SHOULDER 2V AP/TRUE AP RT Comparison: 02/26/2024 RESULT: Pedicle plate and screw device transfixes C3, C4, C5 and C6. No hardware fracture or loosening. Multilevel degenerative change and osteophytosis. No fracture or prevertebral swelling. Straightening of the normal lordosis Views of the right shoulder reveal mild acromioclavicular and glenohumeral degenerative change. Normal alignment. Joint spaces are maintained. No fracture or focal bony abnormality IMPRESSION: STABLE DEGENERATIVE AND POSTOPERATIVE CERVICAL SPINE MILD DEGENERATIVE CHANGE INVOLVING THE RIGHT SHOULDER Relocation Services Specialist: [facility] Transcribe Date/Time: Apr 28 2024 4:25P Dictated by : THAD GARCIA MD This examination was interpreted and the report reviewed and electronically signed by: THAD GARCIA MD on Apr 28 2024 4:33PM EST [id number] CN Normal [facility] CNOVon 04-26-2024 CNOV Office Visit (NEAGCLM) VICKI RANDLE ([id number]) 1945 M Date Time Provider Department 04/26/24 2:30 PM MANDO LING NEAGCLM During your visit today, we recorded the following information about you: Pulse Respiration Blood pressure Weight 95/minute 16/minute 101/69 97.6 kg Mando Ling MD 04/26/2024 3:05 PM Signed NEUROSURGERY POST-OP NOTE Mando Ling MD [facility] Date of visit: April 26, 2024 Patient Name: Mr.Michael Randle Date of : 1945 Current Age: [age] year old Sex: male MRN/E# [id number] Last Office Visit: 03/16/2024 SURGERY: C3-C6 PCDF on 01/01/2024 Pre-Surgical Symptoms: fall - central cord syndrome Past Medical/Surgical History: Mr. Randle is a 78 year old male with a past medical history of AAA, DVT (on Eliquis), basal cell carcinoma, benign essential tremor, HTN, BPH, Bruit of right carotid artery, nodule of right lung, venous insufficiency of BLE. No significant surgical history. HPI: Patient is having their 6 week post operative visit. Mr. Randle presented to [facility] ED on 01/01/2024 as a transfer from [facility] via flight team for trauma evaluation after a fall in the bathroom after drinking. His biggest complaint at [facility] was left sided neck pain and he was found to have C4 fracture with possible vertebral artery injury, which CTA confirmed Vertebral artery dissection. He was then flown from [place] to [facility]. He was on Eliquis for history of DVT, but he stated it had been 2 weeks since he had been taken off that therapy. Neurosurgery was consulted and MRI showed ligamentous injury across C4-C5 with severe canal stenosis, for which he proceeded with the surgery above. His hospital stay was complicated with bilateral arm and hand weakness with intermittent paresthesia. Hemovac drain was removed 01/06/2024. He was advised to continue wearing [place] cervical collar at all times. NIL recommended ASA 81 when able ( POD #7) and to repeat CTA H/N in 8-10 weeks for left vertebral artery dissection. [facility]. He was seen in the office on 01/22/2024 for their 2 week post operative visit. He felt that surgery went well. He presented in a wheelchair from the facility. He reported compliance with the cervical collar, though he does not like it. He reported minimal neck pain but continued with BUE paresthesia and weakness, though it had improved. He had been working with physical therapy which had been helping. He denied any new pain, paresthesia, falls. He did have some remaining right hand sutures that were removed at the visit. He was seen in the office on 02/24/2024 for an 8 week post operative visit when he continued with some dexterity issues and continued to use the walker for ambulation. He had not been wearing the cervical collar since 02/08/2024, and was treating his pain with tylenol. He described weakness and stated his left arm weakness developed after the initial fall and his right arm weakness began after surgical intervention. 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 He was participating in physical therapy at home and felt it was helping. He was advised to continue with PT and to follow up in the office in 1 months time with an MRI cervical spine to evaluate for any residual causes of weakness, prompting his visit today. [facility] contacted the office on 03/17/2024 for concerns of an open spot near the top of his incision that had some drainage. Images of incision reviewed and a script for Keflex was sent to the pharmacy. Patient reports symptoms are the same as his previous visit. He states he continues to have issues with dexterity and gait imbalance. He endorses utilizing a walker for ambulation. He notes continuing weakness to his upper extremities, denies any worsening symptoms. He states he continues with physical therapy. He denies any new falls or bowel and bladder dysfunction. He denies any pain or paresthesia. Incision: Healed Current Outpatient Medications Medication Sig Dispense Refill finasteride (PROSCAR) 5 mg tablet Take 1 tablet by mouth once daily. 90 tablet 1 tamsulosin (FLOMAX) 0.4 mg Take 1 capsule by mouth once daily. 90 capsule 1 melatonin 3 mg tablet Take 3 tablets by mouth daily at bedtime. CKTJXDZK-AUKJZXQKW-T EXAMETH 3.5 MG/ML-10,000 UNIT/ML-0.1% EYE DROPS Use 1 Drop in both eyes four times daily. evolocumab (REPATHA SURECLICK) 140 mg/mL pen injector Inject 140 mg subcutaneously every 2 weeks. 6 mL 1 acetaminophen (TYLENOL) 325 mg tablet Take 3 tablets by mouth every 6 hours as needed for pain. fluticasone (FLONASE) 50 mcg/actuation nasal spray Use 2 Sprays in each nostril once daily. Rinse mouth after use. 1 Each 2 aspirin, enteric coated (ECOTRIN LOW STRENGTH) 81 mg EC tablet Take 1 tablet by shelly (more content not included)... Normal [facility] Hilary 04-26-2024 [facility] Telephone (HCSIND) VICKI RANDLE ([id number]) 1945 M Date Time Provider Department 04/26/24 AKUA PARTIDA During your visit today, we recorded the following information about you: Akua Partida PSS 04/26/2024 3:10 PM Signed Thank you for the referral of your patient to [facility]. At this time, we are at capacity and are unable to accept your patient. In order to help your patient receive quality home care, we have included reputable agencies that service this area: [facility] (Home Health), Phone number or [facility], phone number . Please contact this agency and they will work with your patient to arrange timely services. Thank you, Akua Partida, PSS 04/26/2024 3:09 PM Allergies As of Date: 04/26/2024 Noted Allergy Reaction LIPITOR (ATORVASTATIN CALCIUM) 03/11/2005 5 - Intolerance ROSUVASTATIN CALCIUM 03/02/2017 5 - Intolerance WEKGWFC-MBA-PJX REDUCTASE INHIBIT*01/10/2018 17 - Myalgia Date Reviewed: 04/26/2024 Reviewed by: Stacia Irving MA - Fully Assessed Reason for Visit: Home Care [4073] Cmt: Decline Prescriptions as of 04/26/2024 - finasteride (PROSCAR) 5 mg tablet Take 1 tablet by mouth once daily. - tamsulosin (FLOMAX) 0.4 mg Take 1 capsule by mouth once daily. - gabapentin (NEURONTIN) 300 mg capsule Take 1 capsule by mouth three times a day for 30 days. - melatonin 3 mg tablet Take 3 tablets by mouth daily at bedtime. - DZUTRIYZ-ORPIWMTWV-S EXAMETH 3.5 MG/ML-10,000 UNIT/ML-0.1% EYE DROPS Use 1 Drop in both eyes four times daily. - evolocumab (REPATHA SURECLICK) 140 mg/mL pen injector Inject 140 mg subcutaneously every 2 weeks. - acetaminophen (TYLENOL) 325 mg tablet Take 3 tablets by mouth every 6 hours as needed for pain. - fluticasone (FLONASE) 50 mcg/actuation nasal spray Use 2 Sprays in each nostril once daily. Rinse mouth after use. - aspirin, enteric coated (ECOTRIN LOW STRENGTH) 81 mg EC tablet Take 1 tablet by mouth once daily. Problem List As Of Date 04/26/2024 Noted Resolved Hyperlipidemia with target LDL less than 100 [E*01/30/2005 ESOPHAGEAL REFLUX [K21.9] PERS HX SKIN MALIGNANCY NEC [Z85.828] 05/10/2006 Cellulitis and abscess of trunk [L03.319, L02.2*02/05/2007 04/13/2014 BPH with obstruction/lower urinary tract sympto*11/26/2007 Bladder neck obstruction [N32.0] 11/26/2007 12/02/2018 Prostatitis [N41.9] 01/08/2012 04/13/2014 AAA (abdominal aortic aneurysm) (HCC) [I71.40] 02/06/2012 Nodule of right lung [R91.1] 04/17/2012 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] 06/27/2014 Venous insufficiency of both lower extremities *07/01/2014 Benign hypertension [I10] 07/13/2015 Episodic paroxysmal hemicrania, 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 Situational depression [F43.21] 07/03/2016 Pulmonary emphysema (HCC) [J43.9] 12/31/2016 Closed fracture of one rib of left side [S22.32*03/12/2017 07/12/2017 Basal cell carcinoma (BCC) of postauricular reg*01/09/2018 Actinic keratosis [L57.0] 01/09/2018 Acute deep vein thrombosis (DVT) of femoral vei*03/16/2018 12/02/2018 Chronic anticoagulation [Z79.01] 03/16/2018 Pleural effusion [J90] 06/17/2018 History of DVT of lower extremity [Z86.718] 12/02/2018 Intention tremor [G25.2] 12/20/2019 Arthritis of left sternoclavicular joint [M19.0*04/20/2020 Chewing tobacco use [Z72.0] Traumatic pneumothorax [S27.0XXA] 07/16/2021 07/18/2021 Fall from ground level [W18.30XA] 07/16/2021 Closed fracture of one rib of right side with r*07/16/2021 Contusion of right lung [S27.321A] 07/16/2021 At high risk for falls [Z91.81] 07/04/2022 Obesity, Class I, BMI 30-34.9 [E66.811] 10/01/2022 Nicotine use disorder, F17.2 [F17.200] 04/05/2023 Trauma [T14.90XA] 01/01/2024 Fall [W19.XXXA] 01/01/2024 Closed nondisplaced fracture of fourth cervical*01/01/2024 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] 01/01/2024 Spinal cord injury at C1-C4 level (HCC) [S14.10*01/01/2024 Alcohol abuse [F10.10] 01/01/2024 Hypokalemia [E87.6] 01/01/2024 Acute respiratory failure following trauma and *01/02/2024 04/04/2024 Vitamin D deficiency [E55.9] 01/07/2024 BMI 30.0-30.9,adult [Z68.30] 01/07/2024 Central cord syndrome (HCC) [S14.129A] 01/07/2024 Encounter Status:Closed by AKUA PARTIDA on 04/26/24 Normal [facility] MRI CERVICAL SPINE WO IVCONo n 04-26-2024 MRI CERVICAL SPINE WO IVCON * * *Final Report* * * DATE OF EXAM: Apr 26 2024 1:26PM A1M 0297 - MRI CERVICAL SPINE WO IVCON / PROCEDURE REASON: Spinal stenosis of cervical region * * * * Physician Interpretation * * * * EXAMINATION: MRI CERVICAL SPINE WO IVCON CLINICAL HISTORY: Spinal stenosis of cervical region history of cervical fusion; bilateral upper extremity numbness and paresthesia and weakness TECHNIQUE: Routine cervical spine MR protocol without gadolinium. MQ: [id number] COMPARISON: MR cervical spine 01/01/[address] cervical spine 01/02/2024 RESULT: Counting reference: Craniocervical junction. Anatomic Variants: None. Localizer images: Alignment: No subluxations. There has been prior posterior decompression/pricila ctomy from C3 through C6. Craniocervical junction: Craniocervical junction is normal. Cord: The visualized cord is within normal limits of signal intensity and morphology. Bone marrow signal/fracture: No evidence of pathologic marrow infiltration. No evidence of prior fracture. Cervical soft tissues: The paraspinal soft tissues are within normal limits. C2-C3: Prior posterior decompression/pricila ctomy. No recurrent central canal or foraminal stenosis. C3-C4: Prior posterior decompression/pricila ctomy. There is suspected bilateral foraminal stenosis. No central canal stenosis. C4-C5: There is degenerative disc space narrowing. Prior posterior decompression/pricila ctomy. No recurrent central canal stenosis. There may be some degree of bilateral foraminal stenosis. This is difficult to assess. C5-C6: There is severe degenerative disc space narrowing. Prior posterior decompression/pricila ctomy. No evidence of recurrent central canal stenosis. No foraminal stenosis. C6-C7: Small posterior central disc protrusion. Prior decompression/pricila ctomy. No significant central canal stenosis. Mild bilateral foraminal stenosis. C7-T1: Canal and foramina are patent. IMPRESSION: 1. Postsurgical changes as detailed above. No evidence of recurrent central canal stenosis. 2. Multilevel foraminal stenosis. Anatomic Variant: None. Assume 7 cervical vertebrae with counting from the craniocervical junction. Relocation Services Specialist: [facility] Transcribe Date/Time: Apr 27 2024 10:32A Dictated by : WARREN DAVENPORT MD This examination was interpreted and the report reviewed and electronically signed by: WARREN DAVENPORT MD on Apr 27 2024 10:45AM EST [id number] CN [facility]2024 [facility] VICKI RANDLE ([id number]) 1945 M Date Time Provider Department 03/16/24 [facility] During your visit today, we recorded the following information about you: Porter Sumner, KHRIS 03/16/2024 1:25 PM Signed nurse Katelynn from [facility] [phone] called to inform us that 2 weeks ago, they noticed patient developed an open area to the top aspect of his incision. Noted he may have scratched it open last week. Noted it was seeping, goopy and brown in color. Denied any redness or fevers. Stated they have been applying a band aid to it and the son was applying neosporin to it. Requesting imaging, but noted she was unable to. Called and spoke with the patient son who emailed a picture to a HIPAA complaint secure email and forwarded to Dr. Ling. KHRIS Bensno primary nurse was going to place orders and notify [facility] nurse. Porter Sumner RN Allergies As of Date: 03/16/2024 Noted Allergy Reaction LIPITOR (ATORVASTATIN CALCIUM) 03/11/2005 5 - Intolerance ROSUVASTATIN CALCIUM 03/02/2017 5 - Intolerance DSCHOPJ-OEY-IPR REDUCTASE INHIBIT*01/10/2018 17 - Myalgia Date Reviewed: 02/26/2024 Reviewed by: Laura Hills LPN - Fully Assessed Reason for Visit: Sleeve Fixer - Other [3602] Prescriptions as of 03/16/2024 - gabapentin (NEURONTIN) 300 mg capsule Take 1 capsule by mouth three times a day for 30 days. - melatonin 3 mg tablet Take 3 tablets by mouth daily at bedtime. - JJKREIJC-EAHQJUQSB-L EXAMETH 3.5 MG/ML-10,000 UNIT/ML-0.1% EYE DROPS Use 1 Drop in both eyes four times daily. - evolocumab (REPATHA SURECLICK) 140 mg/mL pen injector Inject 140 mg subcutaneously every 2 weeks. - acetaminophen (TYLENOL) 325 mg tablet Take 3 tablets by mouth every 6 hours as needed for pain. - fluticasone (FLONASE) 50 mcg/actuation nasal spray Use 2 Sprays in each nostril once daily. Rinse mouth after use. - aspirin, enteric coated (ECOTRIN LOW STRENGTH) 81 mg EC tablet Take 1 tablet by mouth once daily. Facility-Administere d Medications as of 03/16/2024 - perflutren lipid microspheres 1.3 mL in NaCl (PF) 0.9% 10 mL injection (DEFINITY) - sodium chloride 0.9 % (flush) 10 mL (BD POSIFLUSH) Problem List As Of Date 03/16/2024 Noted Resolved Hyperlipidemia with target LDL less than 100 [E*01/30/2005 ESOPHAGEAL REFLUX [K21.9] PERS HX SKIN MALIGNANCY NEC [Z85.828] 05/10/2006 Cellulitis and abscess of trunk [L03.319, L02.2*02/05/2007 04/13/2014 BPH with obstruction/lower urinary tract sympto*11/26/2007 Bladder neck obstruction [N32.0] 11/26/2007 12/02/2018 Prostatitis [N41.9] 01/08/2012 04/13/2014 AAA (abdominal aortic aneurysm) (HCC) [I71.40] 02/06/2012 Nodule of right lung [R91.1] 04/17/2012 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] 06/27/2014 Venous insufficiency of both lower extremities *07/01/2014 Benign hypertension [I10] 07/13/2015 Episodic paroxysmal hemicrania, 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 Situational depression [F43.21] 07/03/2016 Pulmonary emphysema (HCC) [J43.9] 12/31/2016 Closed fracture of one rib of left side [S22.32*03/12/2017 07/12/2017 Basal cell carcinoma (BCC) of postauricular reg*01/09/2018 Actinic keratosis [L57.0] 01/09/2018 Acute deep vein thrombosis (DVT) of femoral vei*03/16/2018 12/02/2018 Chronic anticoagulation [Z79.01] 03/16/2018 Pleural effusion [J90] 06/17/2018 History of DVT of lower extremity [Z86.718] 12/02/2018 Intention tremor [G25.2] 12/20/2019 Arthritis of left sternoclavicular joint [M19.0*04/20/2020 Chewing tobacco use [Z72.0] Traumatic pneumothorax [S27.0XXA] 07/16/2021 07/18/2021 Fall from ground level [W18.30XA] 07/16/2021 Closed fracture of one rib of right side with r*07/16/2021 Contusion of right lung [S27.321A] 07/16/2021 At high risk for falls [Z91.81] 07/04/2022 Obesity, Class I, BMI 30-34.9 [E66.811] 10/01/2022 Nicotine use disorder, F17.2 [F17.200] 04/05/2023 Trauma [T14.90XA] 01/01/2024 Fall [W19.XXXA] 01/01/2024 Closed nondisplaced fracture of fourth cervical*01/01/2024 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] 01/01/2024 Spinal cord injury at C1-C4 level (HCC) [S14.10*01/01/2024 Alcohol abuse [F10.10] 01/01/2024 Hypokalemia [E87.6] 01/01/2024 Acute respiratory failure following trauma and *01/02/2024 Vitamin D deficiency [E55.9] 01/07/2024 BMI 30.0-30.9,adult [Z68.30] 01/07/2024 Central cord syndrome (HCC) [S14.129A] 01/07/2024 Encounter Status:Closed by PORTER SUMNER on 03/16/24 Normal [facility] Comprehensive metabolic 2000 panelon 02-27-2024 Albumin [Mass/Vol] 3.4 g/dL Low 3.9 - 4.9 g/dL [facility] ALP [Catalytic activity/Vol] 261 U/L High 38 - 113 U/L [facility] ALT [Catalytic activity/Vol] 7 U/L Low 10 - 54 U/L [facility] Anion gap [Moles/Vol] 9 mmol/L 8 - 15 mmol/L [facility] AST [Catalytic activity/Vol] 12 U/L Low 14 - 40 U/L [facility] Bilirubin [Mass/Vol] 0.2 mg/dL 0.2 - 1 .3 mg/dL [facility] Calcium [Mass/Vol] 9.1 mg/dL 8.5 - 10. 2 mg/dL [facility] Chloride [Moles/Vol] 104 mmol/L 98 - 10 7 mmol/L [facility] CO2 [Moles/Vol] 26 mmol/L 22 - 30 mmol/L [facility] Creatinine [Mass/Vol] 0.80 mg/dL 0.73 - 1.22 mg/dL [facility] GFR/1.73 sq M.predicted among non-blacks MDRD (S/P/Bld) [Vol rate/Area] 91 mL/min/{1.73_m2} - PINF [facility] Comment on above: Estimated Glomerular Filtration Rate (eGFR) is calculated using the 2020 CKD-EPI creatinine equation. This equation utilizes serum creatinine, sex, and age as parameters. The creatinine assay has traceable calibration to isotope dilution-mass spectrometry. Refer to KDIGO guidelines for clinical interpretation. In patients with unstable renal function, e.g. those with acute kidney injury, the eGFR may not accurately reflect actual GFR. Glucose [Mass/Vol] 94 mg/dL 74 - 99 mg/dL [facility] Comment on above: The [place] Diab[employer] s Association (ADA) provides guidance for cutoff values for fasting glucose and random glucose. The ADA defines fasting as no caloric intake for at least 8 hours. Fasting plasma glucose results between 100 to 125 [...] Standards of Medical Care in Diabetes 2016, [place] Diabetes Association. Diabetes Care. 2016.39(Suppl 1). Interpretation and review of laboratory results Abnormal [facility] Potassium [Moles/Vol] 4.2 mmol/L 3.7 - 5.1 mmol/L [facility] Protein [Mass/Vol] 7.1 g/dL 6.3 - 8.0 g/dL [facility] Sodium [Moles/Vol] 139 mmol/L 136 - 144 mmol/L [facility] Urea nitrogen [Mass/Vol] 9 mg/dL 9 - 24 mg/dL [facility] CBC W Auto Differential pane l (Bld)on 02-26-2024 Basophils (Bld) [#/Vol] 0.04 10*3/uL [facility] Basophils/100 WBC (Bld) 0.5 % [facility] Differential cell count method Nom (Bld) Auto [facility] Eosinophils (Bld) [#/Vol] 0.12 10*3/uL [facility] Eosinophils/100 WBC (Bld) 1.4 % [facility] Erythrocyte distribution width (RBC) [Ratio] 15.4 % High 11.5 - 15.0 % [facility] Hematocrit (Bld) [Volume fraction] 38.6 % Low 39.0 - 51.0 % [facility] Hemoglobin (Bld) [Mass/Vol] 11.6 g/dL Low 13.0 - 17.0 g/dL [facility] Immature granulocytes (Bld) [#/Vol] 0.03 10*3/[facility]L [facility] Immature granulocytes/100 WBC (Bld) 0.3 % [facility] Interpretation and review of laboratory results Abnormal [facility] Lymphocytes (Bld) [#/Vol] 1.77 10*3/uL [facility] Lymphocytes/100 WBC (Bld) 20.5 % [facility] MCH (RBC) [Entitic mass] 24.9 pg Low 26.0 - 34.0 pg [facility] MCHC (RBC) [Mass/Vol] 30.1 g/dL Low 30.5 - 36.0 g/dL [facility] MCV (RBC) [Entitic vol] 82.8 fL 80.0 - 100.0 fL [facility] Monocytes (Bld) [#/Vol] 0.68 10*3/uL [facility] Monocytes/100 WBC (Bld) 7.9 % [facility] Neutrophils (Bld) [#/Vol] 6.00 10*3/uL [facility] Neutrophils/100 WBC (Bld) 69.4 % [facility] Nucleated RBC (Bld) [#/Vol] NINF [facility] Nucleated RBC/100 WBC (Bld) [Ratio] 0.0 % /100 WBC [facility] Platelet mean volume (Bld) [Entitic vol] 11.6 fL 9.0 - 12.7 fL [facility] Platelets (Bld) [#/Vol] 227 10*3/uL [facility] RBC (Bld) [#/Vol] 4.66 10*6/uL 4.20 - 6.0 0 m/uL [facility] WBC (Bld) [#/Vol] 8.64 10*3/uL [facility] XR Chest PA and Lateralon IMPRESSION: No significant interval change. Relocation Services Specialist: PSCB Transcribe Date/Time: Feb 26 2024 2:27P Dictated by : GERARDO HOFFMAN MD This examination was interpreted and the report reviewed and electronically signed by: GERARDO HOFFMAN MD on Feb 26 2024 2:30PM [facility] DIVISION OF RADIOLOGY * * *Final Report* * * DATE OF EXAM: Feb 26 2024 2:25PM WOX [id number] - XR CHEST 2V FRONTAL/LAT / PROCEDURE REASON: Decreased breath sounds at left lung base * * * * Physician Interpretation * * * * EXAMINATION: CHEST RADIOGRAPH (2 VIEW FRONTAL & LATERAL) CLINICAL HISTORY: Decreased breath sounds at left lung base MQ: XC2_6 EXAM DATE/TIME: 02/26/2024 2:25 PM COMPARISON: 01/06/2024. RESULT: Lines, tubes, and devices: None. Lungs and pleura: Mild blunting of the costophrenic angles is noted consistent with small pleural effusions. There are patchy densities near the left lung base which may represent atelectasis. Otherwise, the lungs appear clear. These findings appear similar to the prior study. Cardiomediastinal silhouette: Stable cardiomediastinal silhouette. A calcified lymph node is noted in the AP window region. Bones and soft tissues: Degenerative changes are present within the thoracic spine. DIVISION OF RADIOLOGY Provider, [facility] - 02/26/2024 * * *Final Report* * * DATE OF EXAM: Feb 26 2024 2:25PM WOX [id number] - XR CHEST 2V FRONTAL/LAT / PROCEDURE REASON: Decreased breath sounds at left lung base * * * * Physician Interpretation * * * * EXAMINATION: CHEST RADIOGRAPH (2 VIEW FRONTAL & LATERAL) CLINICAL HISTORY: Decreased breath sounds at left lung base MQ: XC2_6 EXAM DATE/TIME: 02/26/2024 2:25 PM COMPARISON: 01/06/2024. RESULT: Lines, tubes, and devices: None. Lungs and pleura: Mild blunting of the costophrenic angles is noted consistent with small pleural effusions. There are patchy densities near the left lung base which may represent atelectasis. Otherwise, the lungs appear clear. These findings appear similar to the prior study. Cardiomediastinal silhouette: Stable cardiomediastinal silhouette. A calcified lymph node is noted in the AP window region. Bones and soft tissues: Degenerative changes are present within the thoracic spine. IMPRESSION IMPRESSION: No significant interval change. Relocation Services Specialist: RUDDY Transcribe Date/Time: Feb 26 2024 2:27P Dictated by : GERARDO HOFFMAN MD This examination was interpreted and the report reviewed and electronically signed by: GERARDO HOFFMAN MD on Feb 26 2024 2:30PM EST [facility] Radiology Study observation (narrative) Sonia cedeno [facility] XR Chest PA and LateralOrder ed By: [facility]cf Provider on 02-26-2024 [facility] CNOVon 02-24-2024 CNOV Office Visit (NEAGCLM) VICKI RANDLE ([id number]) 1945 M Date Time Provider Department 02/24/24 2:15 PM MANDO LING NEAGCLM During your visit today, we recorded the following information about you: Pulse Respiration Blood pressure Height 61/minute 18/minute 90/57 1.854 m Mando Ling MD 02/24/2024 2:11 PM Signed NEUROSURGERY POST-OP NOTE Mando Ling MD [facility] Date of visit: February 24, 2024 Patient Name: Mr.Michael Randle Date of : 1945 Current Age: [age] year old Sex: male MRN/E# [id number] Last Office Visit: 01/29/2024 SURGERY: C3-C6 PCDF on 01/01/2024 Pre-Surgical Symptoms: fall - central cord syndrome Past Medical/Surgical History: Mr. Randle is a 78 year old male with a past medical history of AAA, DVT (on Eliquis), basal cell carcinoma, benign essential tremor, HTN, BPH, Bruit of right carotid artery, nodule of right lung, venous insufficiency of BLE. No significant surgical history. HPI: Mr. Randle presented to [facility] ED on 01/01/2024 as a transfer from [facility] via flight team for trauma evaluation after a fall in the bathroom after drinking. His biggest complaint at [facility] was left sided neck pain and he was found to have C4 fracture with possible vertebral artery injury, which CTA confirmed Vertebral artery dissection. He was then flown from [place] to [facility]. He was on Eliquis for history of DVT, but he stated it had been 2 weeks since he had been taken off that therapy. Neurosurgery was consulted and MRI showed ligamentous injury across C4-C5 with severe canal stenosis, for which he proceeded with the surgery above. His hospital stay was complicated with bilateral arm and hand weakness with intermittent paresthesia. Hemovac drain was removed 01/06/2024. He was advised to continue wearing [place] cervical collar at all times. NIL recommended ASA 81 when able ( POD #7) and to repeat CTA H/N in 8-10 weeks for left vertebral artery dissection. [facility]24. He presented to the office on 01/22/2024 their 2 week post operative visit. He felt that surgery went well. He presented in a wheelchair from the facility. He reported compliance with the cervical collar, though he does not like it. He reported minimal neck pain but continued with BUE paresthesia and weakness, though it had improved. He had been working with physical therapy which had been helping. He denied any new pain, paresthesia, falls. He did have some remaining right hand sutures that were removed at the visit. His incision was well healed and his xray's were reviewed and looked well. He was switched to a [place] collar as the [place] was uncomfortable for him. It was recommended he continue with his cervical collar for another 2 months, but was able to remove it for sleep. He was to follow up in 1 month with repeat imaging, prompting his visit today. Patient is having their 8 week post operative visit. He presents to the office today with his son in a wheelchair. He denies any neck pain or upper extremity pain, he does have continued occasional paresthesia in his bilateral thumbs and index fingers. He notes continued dexterity issues and continue use of his walker, denies any falls. He was discharged from SNF on 02/07/2024 and reports not wearing his cervical collar since 02/08/2024. He has been treating his symptoms with occasional Tylenol and participation in physical therapy at SNF and Home PT. He notes minimal improvement in strength in his left upper extremity however denies any improvement in his right upper extremity strength. He states his left arm weakness developed after the initial fall and his right arm weakness began after surgical intervention. Denies fevers, chills, drainage from incision site, headaches, nausea/vomiting or seizure like activity. He presents to the office for image review, evaluation and plan of care. Incision: Healed Current Outpatient Medications Medication Sig Dispense Refill gabapentin (NEURONTIN) 300 mg capsule Take 1 capsule by mouth three times a day for 30 days. melatonin 3 mg tablet Take 3 tablets by mouth daily at bedtime. XDHQWXTA-TNHOPNEQZ-A EXAMETH 3.5 MG/ML-10,000 UNIT/ML-0.1% EYE DROPS Use 1 Drop in both eyes four times daily. evolocumab (REPATHA SURECLICK) 140 mg/mL pen injector Inject 140 mg subcutaneously every 2 weeks. 6 mL 1 acetaminophen (TYLENOL) 325 mg tablet Take 3 tablets by mouth every 6 hours as needed for pain. fluticasone (FLONASE) 50 mcg/actuation nasal spray Use 2 Sprays in each nostril once daily. Rinse mouth after use. 1 Each 2 aspirin, enteric coated (ECOTRIN LOW STRENGTH) 81 mg EC tablet Take 1 tablet by mouth once daily. 0 oxycodone HCl (OXYCODONE ORAL) Take 5 mg by mouth every 8 hours as needed. Current Facility-Administere d Medications Med (more content not included)... Normal [facility] 01-29-2024 [facility] Telephone (NEAGCLM) VICKI RANDLE ([id number]) 1945 M Date Time Provider Department 01/29/24 MANDO LING [facility] During your visit today, we recorded the following information about you: Annelise Gonzalez RN 01/29/2024 12:01 PM Signed Patient is status post C3-C6 PCDF on 01/01/[address] Ling. Spoke to KHRIS Mcdonough at [facility]. Sharonda stated upon assessment this morning by RN and incident commander, patient had a 0.5 x 1 cm incision dehiscence with some erythema to the incision. She noted incision had pus drainage and a wound culture was obtained and sent. She denied patient having any fevers or chills. She stated the incident commander dressed wound with Calcium alginate and dry gauze. Dr. Ling aware and ordered with verbal read back to start Bactrim DS 800 mg BID for 14 days and to follow-up as scheduled unless worsening symptoms. Additionally, Dr. Ling okayed to continue with Calcium Alginate and dry gauze dressings as completed by the incident commander. I discussed the above with KHRIS Mcdonough. She verbalized understanding. An written prescription was faxed to facility at fax number [phone]. This number was confirmed with Sharonda PINEDO. Received confirmation of fax. Sharonda is aware to contact the office if patient develops any fevers, chills, worsening wound drainage or worsening symptoms. She verbalized understanding and was appreciative of the assistance. KHRIS Castelan [facility] Telephone #- [phone] Fax #- [phone] Allergies As of Date: 01/29/2024 Noted Allergy Reaction LIPITOR (ATORVASTATIN CALCIUM) 03/11/2005 5 - Intolerance ROSUVASTATIN CALCIUM 03/02/2017 5 - Intolerance JRMOZLC-ROM-UHR REDUCTASE INHIBIT*01/10/2018 17 - Myalgia Date Reviewed: 01/22/2024 Reviewed by: Stacia Irving MA - Fully Assessed Reason for Visit: Sleeve Fixer - Other [3602] Prescriptions as of 01/29/2024 - sulfamethoxazole-tri methoprim (BACTRIM DS) 800-160 mg per tablet Take 1 tablet by mouth two times a day for 14 days. - multivitamin (DAILY EVELYN ORAL) Take by mouth once daily. - oxycodone HCl (OXYCODONE ORAL) Take 5 mg by mouth every 8 hours as needed. - gabapentin (NEURONTIN) 300 mg capsule Take 1 capsule by mouth three times a day for 30 days. - ergocalciferol 50,000 unit capsule (VITAMIN D2, DRISDOL) Take 1 capsule by mouth one time a week for 7 doses. - lidocaine (SALONPAS) 4 % patch Apply 1 Patch as directed once daily. - polyethylene glycol 3350 17 gram packet Take 1 Packet by mouth once daily. Dissolve dose in 4 - 8 ounces of liquid and take as directed. - vitamin with folic acid 1 mg 60 mg iron-1 mg tab Take 1 tablet by mouth once daily. - senna-docusate (SENNA-S) 8.6-50 mg per tablet Take 1 tablet by mouth two times a day. - thiamine (VITAMIN B1) 100 mg tablet Take 1 tablet by mouth three times a day. - melatonin 3 mg tablet Take 3 tablets by mouth daily at bedtime. - BCLQOXCX-LURYYSGDJ-H EXAMETH 3.5 MG/ML-10,000 UNIT/ML-0.1% EYE DROPS Use 1 Drop in both eyes four times daily. - evolocumab (REPATHA SURECLICK) 140 mg/mL pen injector Inject 140 mg subcutaneously every 2 weeks. - acetaminophen (TYLENOL) 325 mg tablet Take 3 tablets by mouth every 6 hours as needed for pain. - fluticasone (FLONASE) 50 mcg/actuation nasal spray Use 2 Sprays in each nostril once daily. Rinse mouth after use. - aspirin, enteric coated (ECOTRIN LOW STRENGTH) 81 mg EC tablet Take 1 tablet by mouth once daily. Facility-Administere d Medications as of 01/29/2024 - perflutren lipid microspheres 1.3 mL in NaCl (PF) 0.9% 10 mL injection (DEFINITY) - sodium chloride 0.9 % (flush) 10 mL (BD POSIFLUSH) Problem List As Of Date 01/29/2024 Noted Resolved Hyperlipidemia with target LDL less than 100 [E*01/30/2005 ESOPHAGEAL REFLUX [K21.9] PERS HX SKIN MALIGNANCY NEC [Z85.828] 05/10/2006 Cellulitis and abscess of trunk [L03.319, L02.2*02/05/2007 04/13/2014 BPH with obstruction/lower urinary tract sympto*11/26/2007 Bladder neck obstruction [N32.0] 11/26/2007 12/02/2018 Prostatitis [N41.9] 01/08/2012 04/13/2014 AAA (abdominal aortic aneurysm) (HCC) [I71.40] 02/06/2012 Nodule of right lung [R91.1] 04/17/2012 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] 06/27/2014 Venous insufficiency of both lower extremities *07/01/2014 Benign hypertension [I10] 07/13/2015 Episodic paroxysmal hemicrania, 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 Situational depression [F43.21] 07/03/2016 Pulmonary emphysema (HCC) [J43.9] 12/31/2016 Closed fracture of one rib of left side [S22.32*03/12/2017 07/12/2017 Basal cell carcinoma (BCC) of postauricular reg*01/09/2018 Actinic keratosis [L57.0] 01/09/2018 Acute deep vein thrombosis (DVT) of femoral vei*03/16/2018 12/02/2018 Chronic anticoagulation [Z79.01] 03/16/2018 Pleural effusion [J90] 06/17/2018 History of DVT of l (more content not included)... Normal [facility]23-2024 [facility] VICKI RANDLE ([id number]) 1945 M Date Time Provider Department 01/23/24 [facility] During your visit today, we recorded the following information about you: Kelley Brown RN 01/23/2024 11:03 AM Signed Spoke to Sharonda, nurse taking care of Vicki at [facility]. She states that he is insisting Dr. Ling gave him permission to remove the cervical collar. I advised her that he need to remain in the collar for up to 2 more months, and that we ordered a new type of brace for him that may be more comfortable. I stated that he may remove the collar to sleep, but need to wear it otherwise. She was very thankful and appreciative of the information. Kelley Brown RN Allergies As of Date: 01/23/2024 Noted Allergy Reaction LIPITOR (ATORVASTATIN CALCIUM) 03/11/2005 5 - Intolerance ROSUVASTATIN CALCIUM 03/02/2017 5 - Intolerance ZFKNFDV-OTF-ILT REDUCTASE INHIBIT*01/10/2018 17 - Myalgia Date Reviewed: 01/22/2024 Reviewed by: Stacia Irving MA - Fully Assessed Prescriptions as of 01/23/2024 - multivitamin (DAILY EVELYN ORAL) Take by mouth once daily. - oxycodone HCl (OXYCODONE ORAL) Take 5 mg by mouth every 8 hours as needed. - gabapentin (NEURONTIN) 300 mg capsule Take 1 capsule by mouth three times a day for 30 days. - ergocalciferol 50,000 unit capsule (VITAMIN D2, DRISDOL) Take 1 capsule by mouth one time a week for 7 doses. - lidocaine (SALONPAS) 4 % patch Apply 1 Patch as directed once daily. - polyethylene glycol 3350 17 gram packet Take 1 Packet by mouth once daily. Dissolve dose in 4 - 8 ounces of liquid and take as directed. - vitamin with folic acid 1 mg 60 mg iron-1 mg tab Take 1 tablet by mouth once daily. - senna-docusate (SENNA-S) 8.6-50 mg per tablet Take 1 tablet by mouth two times a day. - thiamine (VITAMIN B1) 100 mg tablet Take 1 tablet by mouth three times a day. - melatonin 3 mg tablet Take 3 tablets by mouth daily at bedtime. - DEMDBPHZ-FXYHSXGQU-P EXAMETH 3.5 MG/ML-10,000 UNIT/ML-0.1% EYE DROPS Use 1 Drop in both eyes four times daily. - evolocumab (REPATHA SURECLICK) 140 mg/mL pen injector Inject 140 mg subcutaneously every 2 weeks. - acetaminophen (TYLENOL) 325 mg tablet Take 3 tablets by mouth every 6 hours as needed for pain. - fluticasone (FLONASE) 50 mcg/actuation nasal spray Use 2 Sprays in each nostril once daily. Rinse mouth after use. - aspirin, enteric coated (ECOTRIN LOW STRENGTH) 81 mg EC tablet Take 1 tablet by mouth once daily. Facility-Administere d Medications as of 01/23/2024 - perflutren lipid microspheres 1.3 mL in NaCl (PF) 0.9% 10 mL injection (DEFINITY) - sodium chloride 0.9 % (flush) 10 mL (BD POSIFLUSH) Problem List As Of Date 01/23/2024 Noted Resolved Hyperlipidemia with target LDL less than 100 [E*01/30/2005 ESOPHAGEAL REFLUX [K21.9] PERS HX SKIN MALIGNANCY NEC [Z85.828] 05/10/2006 Cellulitis and abscess of trunk [L03.319, L02.2*02/05/2007 04/13/2014 BPH with obstruction/lower urinary tract sympto*11/26/2007 Bladder neck obstruction [N32.0] 11/26/2007 12/02/2018 Prostatitis [N41.9] 01/08/2012 04/13/2014 AAA (abdominal aortic aneurysm) (HCC) [I71.40] 02/06/2012 Nodule of right lung [R91.1] 04/17/2012 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] 06/27/2014 Venous insufficiency of both lower extremities *07/01/2014 Benign hypertension [I10] 07/13/2015 Episodic paroxysmal hemicrania, 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 Situational depression [F43.21] 07/03/2016 Pulmonary emphysema (HCC) [J43.9] 12/31/2016 Closed fracture of one rib of left side [S22.32*03/12/2017 07/12/2017 Basal cell carcinoma (BCC) of postauricular reg*01/09/2018 Actinic keratosis [L57.0] 01/09/2018 Acute deep vein thrombosis (DVT) of femoral vei*03/16/2018 12/02/2018 Chronic anticoagulation [Z79.01] 03/16/2018 Pleural effusion [J90] 06/17/2018 History of DVT of lower extremity [Z86.718] 12/02/2018 Intention tremor [G25.2] 12/20/2019 Arthritis of left sternoclavicular joint [M19.0*04/20/2020 Chewing tobacco use [Z72.0] Traumatic pneumothorax [S27.0XXA] 07/16/2021 07/18/2021 Fall from ground level [W18.30XA] 07/16/2021 Closed fracture of one rib of right side with r*07/16/2021 Contusion of right lung [S27.321A] 07/16/2021 At high risk for falls [Z91.81] 07/04/2022 Obesity, Class I, BMI 30-34.9 [E66.9] 10/01/2022 Nicotine use disorder, F17.2 [F17.200] 04/05/2023 Trauma [T14.90XA] 01/01/2024 Fall [W19.XXXA] 01/01/2024 Closed nondisplaced fracture of fourth cervical*01/01/2024 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 Normal [facility] CNOVon 01-22-2024 CNOV Office Visit (NEAGCLM) VICKI RANDLE ([id number]) 1945 M Date Time Provider Department 01/22/24 11:00 AM MANDO LING [facility]AG[facility] During your visit today, we recorded the following information about you: Pulse Respiration Blood pressure 93/minute 16/minute 107/74 Mando Ling MD 01/22/2024 11:20 AM Signed NEUROSURGERY POST-OP NOTE Mando Ling MD [facility] Date of visit: January 22, 2024 Patient Name: Mr.Michael Randle Date of : 1945 Current Age: [age] year old Sex: male MRN/E# [id number] Last Office Visit: Visit date not found SURGERY: C3-C6 PCDF on 01/01/2024 Pre-Surgical Symptoms: fall - central cord syndrome Past Medical/Surgical History: Mr. Randle is a 78 year old male with a past medical history of AAA, DVT (on Eliquis), basal cell carcinoma, benign essential tremor, HTN, BPH, Bruit of right carotid artery, nodule of right lung, venous insufficiency of BLE. No significant surgical history. HPI: Mr. Randle presented to [facility] ED as a transfer from [facility] via flight team for trauma evaluation after a fall in the bathroom after drinking. His biggest complaint at [facility] was left sided neck pain and he was found to have C4 fracture with possible vertebral artery injury, which CTA confirmed Vertebral artery dissection. He was then flown from [place] to [facility]. He was on Eliquis for history of DVT, but he stated it had been 2 weeks since he had been taken off that therapy. Neurosurgery was consulted and MRI showed ligamentous injury across C4-C5 with severe canal stenosis, for which he proceeded with the surgery above. His hospital stay was complicated with bilateral arm and hand weakness with intermittent paresthesia. Hemovac drain was removed 01/06/2024. He was advised to continue wearing [place] cervical collar at all times. NIL recommended ASA 81 when able ( POD #7) and to repeat CTA H/N in 8-10 weeks for left vertebral artery dissection. A consult was placed to [facility] and he was discharged to SNF on 01/09/2024. Patient is having their 2 week post operative visit. Patient feels that surgery went well. He presents today in a wheelchair from the facility. He reports compliance with the cervical collar, though he does not like it. He reports minimal neck pain but continues with BUE paresthesia and weakness, though it has improved. He has been working with physical therapy which has been helping. He denies any new pain, paresthesia, falls. He does have some remaining right hand sutures that were removed this visit. Incision: Dry and intact, without redness - deni removed this visit, patient tolerated well Current Outpatient Medications Medication Sig Dispense Refill multivitamin (DAILY EVELYN ORAL) Take by mouth once daily. oxycodone HCl (OXYCODONE ORAL) Take 5 mg by mouth every 8 hours as needed. gabapentin (NEURONTIN) 300 mg capsule Take 1 capsule by mouth three times a day for 30 days. ergocalciferol 50,000 unit capsule (VITAMIN D2, DRISDOL) Take 1 capsule by mouth one time a week for 7 doses. 7 capsule 0 lidocaine (SALONPAS) 4 % patch Apply 1 Patch as directed once daily. polyethylene glycol 3350 17 gram packet Take 1 Packet by mouth once daily. Dissolve dose in 4 - 8 ounces of liquid and take as directed. senna-docusate (SENNA-S) 8.6-50 mg per tablet Take 1 tablet by mouth two times a day. thiamine (VITAMIN B1) 100 mg tablet Take 1 tablet by mouth three times a day. melatonin 3 mg tablet Take 3 tablets by mouth daily at bedtime. VGPUMFXG-OVDEAXHKI-O EXAMETH 3.5 MG/ML-10,000 UNIT/ML-0.1% EYE DROPS Use 1 Drop in both eyes four times daily. evolocumab (REPATHA SURECLICK) 140 mg/mL pen injector Inject 140 mg subcutaneously every 2 weeks. 6 mL 1 acetaminophen (TYLENOL) 325 mg tablet Take 3 tablets by mouth every 6 hours as needed for pain. fluticasone (FLONASE) 50 mcg/actuation nasal spray Use 2 Sprays in each nostril once daily. Rinse mouth after use. 1 Each 2 aspirin, enteric coated (ECOTRIN LOW STRENGTH) 81 mg EC tablet Take 1 tablet by mouth once daily. 0 vitamin with folic acid 1 mg 60 mg iron-1 mg tab Take 1 tablet by mouth once daily. Current Facility-Administere d Medications Medication Dose Route Frequency Provider Last Rate Last Admin perflutren lipid microspheres 1.3 mL in NaCl (PF) 0.9% 10 mL injection (DEFINITY) INTRAVENOUS DIRECTED PRKanchan Grover MD sodium chloride 0.9 % (flush) 10 mL (BD POSIFLUSH) 10 mL INTRAVENOUS DIRECTED PRKanchan Grover MD Objective Review of Systems Constitutional: Negative for chills, fatigue and fever. HENT: Negative for ear pain, hearing loss and tinnitus. Eyes: Negative for photophobia, pain and visual disturbance. Respiratory: Negative for shortness of breath. Cardiovascular: Negative for chest pain. Gastrointestinal: Negative for constipation, d (more content not included)... Normal [facility] Hilary 01-14-2024 SKYLAR Telephone (NEAGCLM) VICKI RANDLE ([id number]) 1945 M Date Time Provider Department 01/14/24 MANDO LING During your visit today, we recorded the following information about you: Kelley Brown RN 01/14/2024 8:24 AM Signed Spoke with Debbie in transportation at [facility] for Vicki - She states that she has attempted to call to reschedule appointment on 01/15/2024 to reschedule due to being unable to make this day- no messages have been received by me. I sent this call to Luz Elena, payroll secretary, for rescheduling help. KHRIS Cosme Lauren S 01/14/2024 8:32 AM Signed Spoke with Debbie. Rescheduled patient's appointment to next , 01/21. Advised her that Dr. Ling would like patient to have x-rays prior to that appointment. She asked that I fax the order to their facility (fax # [phone]). She will ensure he has them done locally and bring the disc the day of the appointment. Allergies As of Date: 01/14/2024 Noted Allergy Reaction LIPITOR (ATORVASTATIN CALCIUM) 03/11/2005 5 - Intolerance ROSUVASTATIN CALCIUM 03/02/2017 5 - Intolerance YJVSTOB-SPV-HCL REDUCTASE INHIBIT*01/10/2018 17 - Myalgia Date Reviewed: 01/05/2024 Reviewed by: Gabriel Rajput RN - Fully Assessed Prescriptions as of 01/14/2024 - gabapentin (NEURONTIN) 300 mg capsule Take 1 capsule by mouth three times a day for 30 days. - ergocalciferol 50,000 unit capsule (VITAMIN D2, DRISDOL) Take 1 capsule by mouth one time a week for 7 doses. - lidocaine (SALONPAS) 4 % patch Apply 1 Patch as directed once daily. - polyethylene glycol 3350 17 gram packet Take 1 Packet by mouth once daily. Dissolve dose in 4 - 8 ounces of liquid and take as directed. - vitamin with folic acid 1 mg 60 mg iron-1 mg tab Take 1 tablet by mouth once daily. - senna-docusate (SENNA-S) 8.6-50 mg per tablet Take 1 tablet by mouth two times a day. - thiamine (VITAMIN B1) 100 mg tablet Take 1 tablet by mouth three times a day. - melatonin 3 mg tablet Take 3 tablets by mouth daily at bedtime. - INPRMKJG-QNDOOLKMP-D EXAMETH 3.5 MG/ML-10,000 UNIT/ML-0.1% EYE DROPS Use 1 Drop in both eyes four times daily. - evolocumab (REPATHA SURECLICK) 140 mg/mL pen injector Inject 140 mg subcutaneously every 2 weeks. - acetaminophen (TYLENOL) 325 mg tablet Take 3 tablets by mouth every 6 hours as needed for pain. - fluticasone (FLONASE) 50 mcg/actuation nasal spray Use 2 Sprays in each nostril once daily. Rinse mouth after use. - aspirin, enteric coated (ECOTRIN LOW STRENGTH) 81 mg EC tablet Take 1 tablet by mouth once daily. 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/26/2007 Bladder neck obstruction [N32.0] 11/26/2007 12/02/2018 Prostatitis [N41.9] 01/08/2012 04/13/2014 AAA (abdominal aortic aneurysm) (HCC) [I71.40] 02/06/2012 Nodule of right lung [R91.1] 04/17/2012 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] 06/27/2014 Venous insufficiency of both lower extremities *07/01/2014 Benign hypertension [I10] 07/13/2015 Episodic paroxysmal hemicrania, 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 Situational depression [F43.21] 07/03/2016 Pulmonary emphysema (HCC) [J43.9] 12/31/2016 Closed fracture of one rib of left side [S22.32*03/12/2017 07/12/2017 Basal cell carcinoma (BCC) of postauricular reg*01/09/2018 Actinic keratosis [L57.0] 01/09/2018 Acute deep vein thrombosis (DVT) of femoral vei*03/16/2018 12/02/2018 Chronic anticoagulation [Z79.01] 03/16/2018 Pleural effusion [J90] 06/17/2018 History of DVT of lower extremity [Z86.718] 12/02/2018 Intention tremor [G25.2] 12/20/2019 Arthritis of left sternoclavicular joint [M19.0*04/20/2020 Chewing tobacco use [Z72.0] Traumatic pneumothorax [S27.0XXA] 07/16/2021 07/18/2021 Fall from ground level [W18.30XA] 07/16/2021 Closed fracture of one rib of right side with r*07/16/2021 Contusion of right lung [S27.321A] 07/16/2021 At high risk for falls [Z91.81] 07/04/2022 Obesity, Class I, BMI 30-34.9 [E66.9] 10/01/2022 Nicotine use disorder, F17.2 [F17.200] 04/05/2023 Trauma [T14.90XA] 01/01/2024 Fall [W19.XXXA] 01/01/2024 Closed nondisplaced fracture of fourth cervical*01/01/2024 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 Normal [facility] CBC + DIFFon 01-12-2024 Baso # 0.03 x10EE3/UL Normal 0.00 - 0.10 [facility] Comment on above: Performed By: #### 2 98439 #### [facility],[address] [place] [address] 24106 Basophils/100 WBC (Bld) 0.3 % Normal 0.0 - 2.[address] [facility] Comment on above: Performed By: #### 2 94937 #### [facility],[address] [place], [place] [id number] CBC + DIFF Normal [facility] Comment on above: Result Comment: CBC- COMPLETE BLOOD COUNT Performed By: #### 2 15140 #### [facility],[address] [place] [address] 78135 EO # 0.09 x10EE3/UL Normal 0.00 - 0.50 [facility] Comment on above: Performed By: #### 2 05840 #### [facility],[address] [place] [address] 18829 Eosinophils/100 WBC (Bld) 1.0 % Normal 0.0 - 7.0 [facility] Comment on above: Performed By: #### 2 47068 #### [facility],[address] [place], [place] [id number] Erythrocyte distribution width (RBC) [Ratio] 16.0 % High 12.0 - 15.6 [facility] Comment on above: Performed By: #### 2 85071 #### [facility],[address] [place] [address] 75303 Hematocrit (Bld) [Volume fraction] 31.2 % Low 40.0 - 52.0 [facility] Comment on above: Performed By: #### 2 29512 #### [facility],[address] [place] [address] 66409 Hemoglobin (Bld) [Mass/Vol] 9.9 g/dL Low 13.0 - 17.5 [facility] Comment on above: Performed By: #### 2 39466 #### [facility],[address] [place] [address] 37444 Lymph # 1.65 x10EE3/UL Normal 0.80 - 2.80 [facility] Comment on above: Performed By: #### 2 93882 #### [facility],[address] [place] [address] 71494 Lymphocytes/100 WBC (Bld) 18.2 % Low 20.0 - 45.0 [facility] Comment on above: Performed By: #### 2 08039 #### [facility],[address] [place] [address] 16007 MANUAL DIFF N/A Normal [facility] Comment on above: Performed By: #### 2 07021 #### [facility],[address] [place] [address] 63817 MCH (RBC) [Entitic mass] 28 pg Normal 27 - 33 [facility] Comment on above: Performed By: #### 2 58794 #### [facility],[address] [place], [place] [id number] MCHC 32 X10 3 Normal 32 - 36 [facility] Comment on above: Performed By: #### 2 90109 #### [facility],[address] [place] [address] 43085 MCV (RBC) [Entitic vol] 89 fL Normal 81 - [address] [facility] Comment on above: Performed By: #### 2 94931 #### [facility],[address] [place] [address] 24731 Seward # 0.86 x10EE3/UL Normal 0.20 - 1.00 [facility] Comment on above: Performed By: #### 2 20407 #### [facility],[address] [place] [address] 87730 MONOS % 9.5 % Normal 0.0 - 10.0 [facility] Comment on above: Performed By: #### 2 92244 #### [facility],[address] [place] [address] 45584 Morphology Hong (Bld) [Interp] N/A Normal [facility] Comment on above: Performed By: #### 2 57090 #### [facility],[address] [place] [address] 25056 Neut # 6.44 x10EE3/UL Normal 1.50 - 7.10 [facility] Comment on above: Performed By: #### 2 14181 #### [facility],[address] [place] [address] 53542 Neutrophils/100 WBC (Bld) 71.1 % Normal 46.0 - 76.0 [facility] Comment on above: Performed By: #### 2 45271 #### [facility],[address] [place] [address] 77834 PLATELET 568 x10EE3/UL High 150 - 450 [facility] Comment on above: Performed By: #### 2 90219 #### [facility],[address] [place] [address] 04026 Platelet mean volume (Bld) [Entitic vol] 8.2 fL Normal 6.4 - 10.5 [facility] Comment on above: Result Comment: AUTO MATED DIFFERENTIAL Performed By: #### 2 86469 #### [facility],[address] [place] [address] 92754 RBC 3.51 x 10EE6/UL Low 4.50 - 6.00 [facility] Comment on above: Performed By: #### 2 96290 #### [facility],[address] [place] [address] 33378 WBC 9.1 x 10EE3/UL Normal 4.5 - 10.8 [facility] Comment on above: Performed By: #### 2 10599 #### [facility],[address] [place] [address] 01488 CMP with eGFRon 01-12-2024 AGE 78 years Normal [facility] Comment on above: Performed By: #### 2 22023 #### [facility],[address] [place] [address] 27424 Albumin [Mass/Vol] 2.3 g/dL Low 3.4 - 5.0 [facility] Comment on above: Performed By: #### 2 54106 #### [facility],[address] [place] [address] 72635 Albumin/Globulin [Mass ratio] 0.5 {ratio} Low 0.9 - 1.6 [facility] Comment on above: Performed By: #### 2 29211 #### [facility],[address] [place] [address] 66256 ALK PHOS 184 U/L High 46 - 116 [facility] Comment on above: Performed By: #### 2 20799 #### [facility],[address] [place] [address] 21606 ALT [Catalytic activity/Vol] 24 U/L Normal 16 - 63 [facility] Comment on above: Performed By: #### 2 36453 #### [facility],[address] [place], [place] [address] Anion gap [Moles/Vol] 9 mmol/L Low 10 - 20 [facility] Comment on above: Performed By: #### 2 61946 #### [facility],[address] [place] [address] 91574 AST [Catalytic activity/Vol] 20 U/L Normal 15 - 37 [facility] Comment on above: Performed By: #### 2 48419 #### [facility],[address] [place] [address] 65940 B/C RATIO 14 ratio Normal 0 - 30 [facility] Comment on above: Performed By: #### 2 70385 #### [facility],[address] [place] [address] 72311 Bilirubin [Mass/Vol] 0.3 mg/dL Normal 0.2 - 1.0 [facility] Comment on above: Performed By: #### 2 25871 #### [facility],[address] [place] [address] 02896 Calcium [Mass/Vol] 8.8 mg/dL Normal 8.5 - 10.1 [facility] Comment on above: Performed By: #### 2 36160 #### [facility],[address] [place], [place] [id number] Chloride [Moles/Vol] 103 mmol/L Normal 98 - 107 [facility] Comment on above: Performed By: #### 2 80797 #### [facility],[address] [place], [place] [id number] CMP with eGFR Normal [facility] Comment on above: Result Comment: COMP REHENSIVE METABOLIC PANEL Performed By: #### 2 68052 #### [facility],[address] [place] [address] CO2 [Moles/Vol] 29.5 mmol/L Normal 21.0 - 32.0 [facility] Comment on above: Performed By: #### 2 30447 #### [facility],[address] [place] [address] Creatinine [Mass/Vol] 0.80 mg/dL Normal 0.70 - 1.30 [facility] Comment on above: Performed By: #### 2 33796 #### [facility],[address] [place] [address] GFR/1.73 sq M.predicted among non-blacks MDRD (S/P/Bld) [Vol rate/Area] mL/min/{1.73_m2} Normal 60 - 999 [facility] Comment on above: Performed By: #### 2 09711 #### [facility],[address] [place] [address] Result Comment: ACCO RDING TO THE NATIONAL KIDNEY DISEASE EDUCATION PROGRAM(NKDE), A NORMAL eGFR IS A VALUE GREATER THAN OR EQUAL TO 60 ML/MIN/1.73 SQ METERS. CHRONIC KIDNEY DISEASE: <60mL/MIN/1.73 SQ METERS KIDNEY FAILURE: <15mL/MIN/1.73 SQ METERS THIS TEST SHOULD ONLY BE USED FOR PATIENTS 18 YEARS OF AGE AND OLDER. Globulin (S) [Mass/Vol] 4.2 g/dL High 1.5 - 3.[address] [facility] Comment on above: Performed By: #### 2 50729 #### [facility],[address] [place] [address] 16589 Glucose [Mass/Vol] 91 mg/dL Normal 74 - 106 [facility] Comment on above: Performed By: #### 2 52681 #### [facility],[address] [place] [address] 12161 Potassium [Moles/Vol] 4.2 mmol/L Normal 3.5 - 5.1 [facility] Comment on above: Performed By: #### 2 34018 #### [facility],[address] [place] [address] 93292 Protein [Mass/Vol] 6.5 g/dL Normal 6.4 - 8.2 [facility] Comment on above: Performed By: #### 2 46356 #### [facility],[address] [place] [address] 77275 Sodium [Moles/Vol] 137 mmol/L Normal 136 - 145 [facility] Comment on above: Performed By: #### 2 64267 #### [facility],[address] [place] [address] 66481 Urea nitrogen [Mass/Vol] 11 mg/dL Normal 7 - 18 [facility] Comment on above: Performed By: #### 2 12205 #### [facility],[address] [place] [address] 79000 LIPID PROFILEon 01-12-2024 Cholesterol [Mass/Vol] 135 mg/dL Normal 0 - 240 [facility] Comment on above: Performed By: #### 2 91263 #### [facility],[address] [place] [address] 54126 Cholesterol in HDL [Mass/Vol] 49 mg/dL Normal 40 - 60 [facility] Comment on above: Performed By: #### 2 46659 #### [facility],[address] [place] [address] 48013 Cholesterol in LDL [Mass/Vol] 67 mg/dL Normal 0 - 129 [facility] Comment on above: Performed By: #### 2 99032 #### [facility],[address] [place] [address] 46014 Cholesterol.total/Jacy sterol in HDL [Mass ratio] 2.8 {ratio} Normal 0.0 - 5.0 [facility] Comment on above: Performed By: #### 2 91651 #### [facility],[address] [place] [address] 46697 Lipid 1996 panel Normal [facility] Comment on above: Result Comment: LIPI D PROFILE Performed By: #### 2 84333 #### [facility],[address] [place] [address] 14706 Triglyceride [Mass/Vol] 95 mg/dL Normal 0 - [address] [facility] Comment on above: Performed By: #### 2 02192 #### [facility],[address] [place] [address] 74368 CNDSon 01-09-2024 [facility] HNO ID: [id number] Author: KANCHAN JAIME MD Service: General Surgery Author Type: Nurse Practitioner Type: Discharge Summary Filed: 01/09/2024 12:49 Note Text: Attestation signed by Kanchan Jaime MD at 01/09/2024 12:49 PM The [facility], acting on behalf of the attending physician, has completed the wdow-by-xzuh portion of the patient discharge encounter. SIGNATURE: Kanchan Jaime MD PATIENT NAME: Vicki Randle DATE: January 09, 2024 TIME: 12:49 PM Pager: [phone] DISCHARGE SUMMARY PATIENT NAME: Vicki Randle Code Status: Full Code Highest Readmission Risk Score: 29 The 30 day readmissions risk score is derived from an internally validated risk model which evaluates patient level characteristics, utilization history, medication orders and lab results up until the day of discharge. Patients with a score of 40 or above are considered highest risk for readmission. Specific patient level drivers will be listed at the bottom of the summary. Admission Information Admission Information ADMIT DATE: 01/01/2024 DISCHARGE DATE: 01/09/2024 MY DOCTORS AND MEDICAL TEAM: My Main Hospital Doctor: Rony Saenz MD Primary Care Provider: Kanchan Ge MD My Medical Team Members: Treatment Team: Attending Provider: Rony Saenz MD Consulting: Mando Ling MD Consulting: Thu Brown MD Consulting: Roosevelt Garrison MD MY CONDITION AT DISCHARGE: Stable REASON I WAS IN THE HOSPITAL: Fall SUMMARY OF WHAT HAPPENED WHILE I WAS IN THE HOSPITAL: Mr. Randle was admitted at [facility] on 01/01/2024 following a fall. He was found to have the following acute traumatic injuries: 1. C4 fractures (left lamina, left transverse process, left pedicle, and spinous process) 2. Acute spinal cord injury/contusion at the C4-C5 level 3. Cervical spine ligamentous injury 4. Left vertebral artery dissection He was taken to the operating room by neurosurgery on 01/01/2024. He should continue to wear the c-collar at all times. He was evaluated by neuro-interventional radiology who recommended Aspirin 81mg daily for his vertebral artery dissection. He should have a follow up CTA of his neck in 8 weeks. Mr. Randle was evaluated by physical and occupational therapy who recommended Acute Rehab for his ongoing recovery. He will require follow up appointments with neurosurgery, neuro-interventional , and his primary care provider. OTHER PROBLEMS/DIAGNOSIS: Principal Problem: Trauma Active Problems: Benign hypertension Pulmonary emphysema (HCC) Obesity, Class I, BMI 30-34.9 Fall Closed nondisplaced fracture of fourth cervical vertebra (HCC) Vertebral artery dissection (HCC) Spinal cord injury at C1-C4 level (HCC) Alcohol abuse Hypokalemia Acute respiratory failure following trauma and surgery (HCC) Vitamin D deficiency BMI 30.0-30.9,adult Central cord syndrome (HCC) Resolved Problems: * No resolved hospital problems. * OPERATIONS PERFORMED WHILE IN THE HOSPITAL: 01/01/2024 - Posterior segmental instrumentation and posterior lateral fusion C3-C6; ORIF of C4 fracture; C3-C6 laminectomy; Use of locally harvested morselized bone autograft and bone allograft (Dr. Ling) IMPORTANT TEST/PROCEDURES: 01/01/2024 - Central line, arterial line TEST RESULTS NOT AVAILABLE AT THIS TIME: No pending results Discharge Disposition Discharge Disposition: Long Term Facility - Less than 30 Days Activity When You Leave the Hospital Limited to: Wear c-collar at all times May bathe and shower No prolonged bedrest, longer than 8 hours in a 24 hour period Diet Instructions Avoid Alcohol Resume your pre-hospital diet For Pain When You Leave the Hospital Apply a covered cold pack to the area If you become constipated, you may use any wcwh-xam-cvboauz treatment such as Milk of Magnesia, Sennakot, Prune Juice, Suppositories, etc. in addition to the stool softener/fiber supplement Keep area at rest and elevate it to reduce pain and swelling No alcohol or driving while on pain medication Use acetaminophen (Tylenol) as recommended on the bottle Use the dispensed medication (see prescription) You should use an yhti-goy-jkrcidi stool softener (Docusate sodium) and/or a fiber supplement (Metamucil, Fiber Con) every day while taking prescribed pain medication Wound/Surgical Site Care Leave open to air Some bleeding from the wound/surgical site can be expected. If excessive, see a doctor at once Some bleeding from the wound/surgical site can be expected. If you soak a gauze bandage in one hour, see a doctor at once Wash your hands frequently, especially before touching your incision, after using restroom and before eating (more content not included)... Normal [facility] THERAPY NTon 01-09-2024 THERAPY NT HNO ID: [id number] Author: WENDY THOMASON PT Service: Physical Therapy Author Type: Dry Chain Puller Type: Therapy (PT/OT/Speech/Resp) Filed: 01/11/2024 15:41 Note Text: Attestation signed by Wendy Thomason PT at 01/11/2024 3:41 PM I reviewed and agree with the documentation corresponding to this therapy visit. SIGNATURE: Wendy Thomason PT DATE: January 11, 2024 TIME: 3:41 PM Physical Therapy Treatment Summary SERVICE DATE: 01/09/2024 SERVICE TIME: 1305 to 1328 ROOM: [id number] PT 6 Clicks Score: 14 DISCHARGE RECOMMENDATIONS Acute Rehab Recommended Discharge Disposition Comments: patient not at functional baseline now with new central cord syndrome Recommended Discharge Disposition Due to: Patient requires active, intensive rehabilitation by multiple therapy disciplines. Anticipate the patient will tolerate 3 hours of therapy per day., Balance deficits, Requires multiple therapy disciplines, Functional status decline ASSESSMENT Response to Therapy Interventions: Good Participation in Activities Patient continues to require increased levels of assist with all mobility tasks. Patient without recall of cervical precautions. Patient continues to be well below baseline functioning and increased falls risk at this time. Patient continues to demo poor UE coordination/movemen t. continue to recommend acute care to improve strength, ROM, balance,endurance, normalized gait pattern, and independence with mobility tasks to prior level of function for safe return to home activity. Additional personnel present during visit: Suzette Houston [employer] Spine C collar on AAT CURRENT HOSPITAL COURSE Patient admitted after fall at home. Patient reports that he blacked out. Patient underwent C3-6 PCDF with [place] collar on AAT. And following injuries: Distal radius fx (likely chronic) Relevant Past Medical History: AAA, DVT, HTN HOME LIVING Patient Lives With: Self/Alone Assistance Available: PRN (has sons who live near by) Entry To Home: Stairs, With Rail Number Of Stairs Into Home: 2 Number Of Stairs To Bed/Bath: 0 Tub/Shower Type: walk in shower with seat Laundry: in basement Equipment Owned: Walker- Wheeled PRIOR FUNCTIONAL LEVEL Within Functional Limits Patient reports that he was I with all his care at baseline SUBJECTIVE Agreeable to PT session THERAPY DIAGNOSIS Reduced mobility-other TREATMENT INTERVENTIONS Therapeutic Activity (03231) Therapeutic Activity (11442) Treatment Minutes: 23 $ Therapeutic Activity (94852) Billed Units: 2 units Patient completed BLE strengthening (ankle pump, quad set, gluteal set, heel slide, hip abd/add to neutral, SLR, short arc quad, long arc quad, hip adductor squeeze) x 12 reps with cuint amount of assist. Patient educated on cervical precautions, with visual demo of motions to avoid--recall of 0/3. Cuing/assist with log roll technique,scooting, sitting balance/postural extension, transfers to standing, and short distance gait training in room/hallway, standing hip marching x12 reps. Patient positioned for comfort at end of session. Nursing aware of patient location in recliner chair--alarm on. Timed Code Treatment (minutes): 23 Skilled Treatment Time (minutes): 23 TRAINING AND EDUCATION PROVIDED Assistive Device Use, Bed Mobility, Exercise Program, Gait Pattern, Reduction of Deviations, Positioning, Precautions/Restrict ions, Transfers, Standing Balance THERAPEUTIC SKILLS USED Cues for Sequencing/Proper Technique for Activity, Cuing Tactile, Cuing Verbal, Cuing Visual, Facilitation of Joint Range of Motion, Movement Facilitation, Physical Assist, Postural Alignment Correction FUNCTIONAL STATUS mobility performed during session in bold, other mobility completed during prior session and may no longer be correct or appropriate to complete. Bed Mobility Rolling: Moderate Assistance, Additional Information assist to guide UEs, trunk, and LEs to roll to left side Supine To Sit: Moderate Assistance, Additional Information via log roll technique--cuing for proper movement, assist with trunk and LEs Sit to Supine: Moderate Assistance, Additional Information Scooting: Minimal Assistance Transfers Sit To Stand: Minimal Assistance, Additional Information assist to guide UEs, cuing to power up with LE, assist to boost and with balance Stand To Sit: Minimal Assistance, Additional Information cuing/assist to square up to seated surface, proper UE support, assist with eccentric control Bed to Chair Minimal Assistance Bed To Chair Transfer Type: Stepping Bed To Chair Transfer Equipment: Gait Belt, Wheeled Walker Gait Minimal Assistance, Additional Information cuing/assist with posture, balance, weight shifts, walker management, cuin (more content not included)... Normal [facility] Basic metabolic 2000 panelon 01-08-2024 Anion gap [Moles/Vol] 10 mmol/L Normal 8-15 [facility] Comment on above: Order Comment: Speci men Type: BLOOD SPECIMENOrdering Facility: [facility] Address: [address] [place] [address] Performed By: #### 2 4321-2 ####[facility] LABORATORYCLIA [id number] [place] [address] [place] Calcium [Mass/Vol] 8.9 mg/dL Normal 8.5-10.2 [facility] Comment on above: Order Comment: Speci men Type: BLOOD SPECIMENOrdering Facility: [facility] Address: [address] [place] [address] Performed By: #### 2 4321-2 ####[facility]ORATORYCLIA [id number] [place] [address] [place] Chloride [Moles/Vol] 103 mmol/L Normal 98-107 [facility] Comment on above: Order Comment: Speci men Type: BLOOD SPECIMENOrdering Facility: [facility] Address: [address] [place] [address] Performed By: #### 2 4321-2 ####[facility]ORATORYCLIA [id number] [place] [address] [place] CO2 [Moles/Vol] 24 mmol/L Normal 22-30 [facility] Comment on above: Order Comment: Speci men Type: BLOOD SPECIMENOrdering Facility: [facility] Address: [address] [place] [address] Performed By: #### 2 4321-2 ####[facility] [id number] [place] [id number] [place] STATES OF [facility] Creatinine [Mass/Vol] 0.88 mg/dL Normal 0.73-1.22 [facility] Comment on above: Order Comment: Clementina zavala Type: BLOOD SPECIMENOrdering Facility: [facility] Address: [address] [place] [address] Performed By: #### 2 4321-2 ####[facility] LABORATORYCLIA [id number] [address] Creatinine and Glomerular filtration rate.predicted panel (S/P/Bld) 88 mL/min/1.73m??? Normal >=60 [facility] Comment on above: Order Comment: Clementina zavala Type: BLOOD SPECIMENOrdering Facility: [facility] Address: [address] [place] [address] Result Comment: Beatrice mated Glomerular Filtration Rate (eGFR) is calculated using the 2020 CKD-EPI creatinine equation. This equation utilizes serum creatinine, sex, and age as parameters. The creatinine assay has traceable calibration to isotope dilution-mass spectrometry. Refer to KDIGO guidelines for clinical interpretation. In patients with unstable renal function, e.g. those with acute kidney injury, the eGFR may not accurately reflect actual GFR. Performed By: #### 2 4321-2 ####[facility]ORATORYCLIA [id number] [address] STATES OF [facility] Glucose [Mass/Vol] 114 mg/dL High 74-99 [facility] Comment on above: Order Comment: Clementina zavala Type: BLOOD SPECIMENOrdering Facility: [facility] Address: [address] [place] [address] Result Comment: The [place] Diabetes Association (ADA) provides guidance for cutoff values for fasting glucose and random glucose. The ADA defines fasting as no caloric intake for at least 8 hours. Fasting plasma glucose results between 100 to 125 [...] Standards of Medical Care in Diabetes 2016, [place] Diabetes Association. Diabetes Care. 2016.39(Suppl 1). Performed By: #### 2 4321-2 ####[facility]ORATORYCLIA [id number] [address] STATES OF [facility] Potassium [Moles/Vol] 4.3 mmol/L Normal 3.7-5.1 [facility] Comment on above: Order Comment: Speci men Type: BLOOD SPECIMENOrdering Facility: [facility] Address: [address] [place] [address] Performed By: #### 2 4321-2 ####[facility]ATORYCLIA [id number] [address] Sodium [Moles/Vol] 137 mmol/L Normal 136-144 [facility] Comment on above: Order Comment: Speci men Type: BLOOD SPECIMENOrdering Facility: [facility] Address: [address] [place] [address] Performed By: #### 2 4321-2 ####[facility]ATORYCLIA [id number] [address] Urea nitrogen [Mass/Vol] 17 mg/dL Normal 9-24 [facility] Comment on above: Order Comment: Victor Manueli men Type: BLOOD SPECIMENOrdering Facility: [facility] Address: [address] [place] [address] Performed By: #### 2 4321-2 ####[facility]ORATORYCLIA [id number] [address] [place] CBC panel Auto (Bld)on 01-07 Erythrocyte distribution width (RBC) [Ratio] 16.7 % High 11.5-15.0 [facility] Comment on above: Order Comment: Speci men Type: BLOOD SPECIMENOrdering Facility: [facility] Address: [address] [place] [address] Performed By: #### 5 8410-2 ####[facility]ORATORYCLIA [id number] [address] OF [facility] Hematocrit (Bld) [Volume fraction] 34.3 % Low 39.0-51.0 [facility] Comment on above: Order Comment: Speci men Type: BLOOD SPECIMENOrdering Facility: [facility] Address: [address] [place] [address] Performed By: #### 5 8410-2 ####[facility]ORATORYCLIA [id number] [address] OF [facility] Hemoglobin (Bld) [Mass/Vol] 10.6 g/dL Low 13.0-17.0 [facility] Comment on above: Order Comment: Speci men Type: BLOOD SPECIMENOrdering Facility: [facility] Address: [address] [place] [address] Performed By: #### 5 8410-2 ####[facility]ORATORYCLIA [id number] [address] MCH (RBC) [Entitic mass] 27.7 pg Normal 26.0-34.0 [facility] Comment on above: Order Comment: Speci men Type: BLOOD SPECIMENOrdering Facility: [facility] Address: [address] [place] [address] Performed By: #### 5 8410-2 ####[facility]ATORYCLIA [id number] [address] OF [place] MCHC (RBC) [Mass/Vol] 30.9 g/dL Normal 30.5-36.0 [facility] Comment on above: Order Comment: Speci men Type: BLOOD SPECIMENOrdering Facility: [facility] Address: [address] [place] [address] Performed By: #### 5 8410-2 ####[facility]ATORYCLIA [id number] [address] MCV (RBC) [Entitic vol] 89.6 fL Normal 80.0-100.0 [facility] Comment on above: Order Comment: Speci men Type: BLOOD SPECIMENOrdering Facility: [facility] Address: [address] [place] [address] Performed By: #### 5 8410-2 ####[facility]ORATORYCLIA [id number] [address] Nucleated RBC (Bld) [#/Vol] 10*3/uL Normal <0.01 [facility] Comment on above: Order Comment: Speci men Type: BLOOD SPECIMENOrdering Facility: [facility] Address: [address] [place] [address] Performed By: #### 5 8410-2 ####[facility]ATORYCLIA [id number] [address] [place] Platelet mean volume (Bld) [Entitic vol] 10.3 fL Normal 9.0-12.7 [facility] Comment on above: Order Comment: Speci men Type: BLOOD SPECIMENOrdering Facility: [facility] Address: [address] [place] [address] Performed By: #### 5 8410-2 ####[facility]ORATORYCLIA [id number] [address] Platelets (Bld) [#/Vol] 416 10*3/uL High 150-400 [facility] Comment on above: Order Comment: Speci men Type: BLOOD SPECIMENOrdering Facility: [facility] Address: [address] [place] [address] Performed By: #### 5 8410-2 ####[facility]ATORYCLIA [id number] [address] [place] RBC (Bld) [#/Vol] 3.83 10*6/uL Low 4.20-6.00 [facility] Comment on above: Order Comment: Speci men Type: BLOOD SPECIMENOrdering Facility: [facility] Address: [address] [place] [address] Performed By: #### 5 8410-2 ####[facility]ORATORYCLIA [id number] [address] WBC (Bld) [#/Vol] 9.10 10*3/uL Normal 3.70-11.00 [facility] Comment on above: Order Comment: Speci men Type: BLOOD SPECIMENOrdering Facility: [facility] Address: [address] [place] [address] Performed By: #### 5 8410-2 ####[facility]ORATORYCLIA [id number] [address] CONSULTon 01-08-2024 CONSULT HNO ID: [id number] Author: ROOSEVELT GARRISON MD Service: Physical Medicine AND Rehabilitation Author Type: Physician Type: Consults Filed: 01/08/2024 15:03 Note Text: HOSPITAL INITIAL CONSULTATION: PMANDR SERVICE DATE: 01/08/2024 REASON FOR CONSULTATION: assessment of rehab service needs, recommendations regarding level of care assignment, and advice on medical management issues SUBJECTIVE: Patient's home address: [address] [place], [place] [id number] I was asked to evaluate (Vicki Randle) by (Tomeka Motta PA-C) for recommendations regarding management of his/her rehabilitation needs. My findings and recommendations will be communicated through the shared electronic medical record. History: Vicki Randle is a 78-year-old male with a PMH for HTN, HLD, AAA s/p EVAR, GERD, Smoker, DVT who was admitted to [facility] on 01/01/24 as a transfer from [facility] for suspected SCI following a ground-level fall on 12/31/23. 01/01/24 MRI revealed C4 posterior element fractures with increased intramedullary signal changes and decreased flow signal of left vertebral artery consistent with known left vertebral artery dissection. 01/01/24 CTA revealed traumatic dissection of the vertebral artery from C4-2. The patient was taken to the OR on 01/01/[address] Mando Ling for a C3-6 PSDF with C3-6 laminectomy, MEDICAL INSURANCE VERIFIER evaluated patients swallow and recommended: Regular Consistency and Thin Liquids IDDSI Level 0 Pt currently alert and interested in going to inpatient rehabilitation. 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 PLAN: Pt will need inpatient rehabilitation to facilitate improvement and independence in ADLs and Mobility. Pt will need nursing home f/u with Dr Garrison in outpatient SCI Clinic call [phone] to schedule. 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 PLAN: WBAT; [place] collar at all times, # Neuropathic/Nocicept karina Pain PLAN: Acetaminophen 975 mg QID, Gabapentin 300 mg TID, Lidocaine 4 % 1 Patch daily, Oxycodone IR 5 mg q 6 hrs prn, Cardiovascular # Left vertebral artery dissection PLAN: aspirin 81 mg daily, repeat CTA H/N in 8-10 weeks for L vert dissection. # HTN PLAN: Monitor # Risk for Orthostatic Hypotension PLAN: consider thigh high TEDs, shimon wraps, abdominal binder when OOB. # Risk for Autonomic Dysreflexia PLAN: if this occurs, find and eliminate source (, GI most likely), sit upright, loosen clothing, Nitropaste PRN # DVT Prophylaxis PLAN: Heparin 5000u q 8 hours and pneumatic compression stockings Respiratory system: # Restrictive Airway Syndrome: PLAN: Duoneb aerosols q 4 hrs prn, Incentive spirometry q 1 W/A. Renal system and Urinary system # Bladder PLAN: check for urinary retention with PVR bladder scans x 2 and consult urology for any volume >200cc Digestive system # Nausea PLAN: ondansetron (PF) 4 mg injection q 6 hrs prn, # GI Stress Prophylaxis PLAN: Consider Protonix 40 mg daily # Bowel PLAN: Senna-S (1-TABS) BID, MiraLAX (1-TAB) BID and consider daily Dulcolax suppository Endocrine system: # Hyperglycemia: A1c = 5.4 on 01/02/24 PLAN: monitor Integumentary system # Surgical Incision PLAN: Monitor wound for infection # Impaired skin sensation/circulatio n/autonomic function PLAN: turning q 2 hours in bed; Avoid lying flat supine while in bed- Weight shift q 15 min sitting and sit on air cushion or ROHO. TrueVue boots can be worn for heel protection. Musculoskeletal # Distal radius fx (likely chronic) PLAN: Consider Ortho consult Electrolytes/Nutriti on # HypoPhosphatemia PLAN: phosphorus 250 mg AC and HS # Vitamin D Deficiency: Vit D 25-OH = on PLAN: ergocalciferol (vitamin D2) 50,000 Units cap weekly, Cholecalciferol 1,000 Units daily Hematology/Oncology # Anemia (stable) HgB = 9.9 on 01/07/2024 PLAN: Monitor Mental Health # Sleep Dysfunction PLAN: Melatonin 9 mg q 8 pm, Quetiapine 50 mg qhs # H/O alcohol use PLAN: vitamin with folic acid 1 mg daily, thiamine 100mg TID, CIWA monitoring # H/O Smoker PLAN: smoking cessation Functional History: Patient Lives With: Self/Alone Assistance Available: PRN (has sons who live near by) Entry To Home: Stairs, With Rail Number Of Stairs Into Home: 2 Number Of Stairs To Bed/Bath: 0 Tub/Shower Type: walk in shower with seat Laundry: in basement Equipment Owned: Walker- Wheeled PRIOR FUNCTIONAL LEVEL Within Functional Limits Patient reports that he was I with all his care at baseline (more content not included)... Normal [facility] THERAPY NTon 01-08-2024 THERAPY NT HNO ID: [id number] Author: OC SCHMIDT CCC-MEDICAL INSURANCE VERIFIER Service: Speech/Swallow Author Type: Speech Language Pathologist Type: Therapy (PT/OT/Speech/Resp) Filed: 01/08/2024 12:22 Note Text: Speech Therapy Treatment SERVICE DATE: 01/08/2024 SERVICE TIME: 1110 to 1125 ROOM: [place] [address] IMPRESSION: Functional oropharyngeal phases of swallowing: without identified risk for aspiration Diet Recommendations: Regular Consistency Thin Liquids IDDSI Level 0 Swallowing Precautions Recommendations: Alert (patient should be fully alert for P.O. intake) Alternate bites and sips Feed / Eat at a slow rate Small Bite/Sip Sit upright 90 degrees for all PO Nursing Recommendations: Maintain normal schedule (meals, sleep/wake, toileting/bathing) Recommended Discharge Disposition: Acute Rehab Recommended Discharge Disposition Comments: for PT and OT Current Hospital Course: Patient admitted on 12/31 for a trauma. Intubated 12/31-01/01. 12/31 XR chest: Placement of a central venous catheter without apparent complications. Stable appearance of the heart and lungs. 01/01 XR chest: Interval placement of nasogastric tube with tip terminating in the stomach but side holes at the level of the GE junction, recommend advancing approximately 5 cm. Small left pleural effusion with adjacent atelectasis, similar to prior. Rehabilitation Precautions: Spine Reason for Speech Therapy Consult: extubated; assess swallow Relevant Past Medical History: reflux, depression Response to Therapy Interventions: Good Participation in activities Subjective: Patient alert and able to participate in session. Current Status Oral Hygiene: Clear, moist oral cavity Dentition: Dentures-Full Current Feeding Method: Oral Current Diet Textures: Regular Consistency, Thin Liquids IDDSI Level 0 Current Level Of Communication: Verbal Current Management Of Secretions: Able to self-manage Oral Motor Exam: Within Functional Limits Except Labial Assessment: Generalized weakness Lingual Assessment: Generalized weakness Palatal Elevation: Right Deviation Swallow Position Of Patient During Assessment: Upright In Chair Consistencies Presented: Thin Liquids IDDSI Level 0, Pureed IDDSI Level 4, Solid Compensatory Strategies Utilized During Assessment: Alert (patient should be fully alert for P.O. intake), Alternate bites and sips, Feed / Eat at a slow rate, Sit upright 90 degrees for all PO, Small Bite/Sip -Patient alert, up in chair on MEDICAL INSURANCE VERIFIER arrival, agreeable to therapy -Mastication timely for solids -No oral residuals post swallow -No cough, throat clear, or change in vocal quality with po trials -Oropharyngeal swallow function appears clinically WFL at this time -Recommend diet and strategies as above -Cannot rule out aspiration with clinical assessment only, if further concern, recommend instrumental assessment -Will sign off, please re-consult if change in Patient status Patient /Caregiver Goals: Go Home Goals for Plan of Care: SWALLOWING: Patient / Caregiver will demonstrate knowledge of taught compensatory strategies and dietary consistency recommendations to optimize functional swallow function without overt clinical signs and symptoms of aspiration or dysphagia Swallow Goals: Patient will tolerate Regular Consistency diet consistency while utilizing compensatory/swallow ing strategies given maximal cues in 90% of trials so that the patient will minimize the signs/symptoms of dysphagia. -goal met 01/08/2024 Patient will tolerate Thin Liquids IDDSI Level 0 consistency while utilizing compensatory/swallow ing strategies given maximal cues in 90% of trials so that the patient will minimize the signs/symptoms of dysphagia. -goal met 01/08/2024 Progress Toward Goals: Goal Met Speech Rehab Potential: Excellent Patient will be discontinued from speech therapy when no further skilled needs are identified in this setting. PLAN: ST Frequency: Discontinue Therapy Services Reasons Inpatient Therapy Services Discontinued: Goals met Treatment Interventions: Dysphagia Management Plan of Care Developed with: Patient, Nurse TREATMENT INTERVENTIONS: Therapy Diagnosis: No Skilled Need Interventions Provided: Dysphagia Therapy (12897) $ Dysphagia Therapy (55265) Billed Units: 1 unit Training and Education Provided in: Dietary Consistencies, Dysphagia Management The following therapeutic skills were used:: Discharge planning, Education on role of discipline / importance of activity, Verbal cuing, Visual cuing Skilled Treatment Time (minutes): 15 Home Environment Prior Functional Level: Within Functional Limits Patient Lives With: Self/Alone Prior Swallowing Function/Diet Textures: Regular Consistency, Thin Liquids IDDSI Level 0 Please see discipline specific clinical documentation flowsheet for complete details for this therapy evaluation/treatment . I reviewed and agree with the documentation corresponding to (more content not included)... Normal [facility] THERAPY NT HNO ID: [id number] Author: HANS DONNELLY OTR/L Service: Occupational Therapy Author Type: Occupational Therapist Type: Therapy (PT/OT/Speech/Resp) Filed: 01/08/2024 12:15 Note Text: Occupational Therapy Treatment Summary SERVICE DATE: 01/08/2024 SERVICE TIME: 1043 to 1113 ROOM: [id number] OT 6 Clicks Score: 10 DISCHARGE RECOMMENDATIONS Acute Rehab Recommended Discharge Disposition Comments: Patient was I prior to his fall and is now demonstrating decreased UE MMT and balance issues that impact his ability to return to home. He will benefit from intense 3hr day program so he may return to his prior level of I function. Recommended Discharge Disposition Due to: Patient requires active, intensive rehabilitation by multiple therapy disciplines. Anticipate the patient will tolerate 3 hours of therapy per day., Functional deficits requiring ongoing therapy service prior to discharge home., ADL impairment, Anticipated community discharge, Coordination deficits, Dominant side deficits, Weakness less than 3/5 in upper extremity ASSESSMENT Response to Therapy Interventions: Good Participation in Activities Pt tolerated session well but continues to be limited by severe BUE deficits. RUE with pain during AAROM. Pt to continue to benefit from OT services to address BUE strength, ROM, coordination as well as functional transfers/mobility and self-care. All goals ongoing. PRECAUTIONS Spine C collar on AAT CURRENT HOSPITAL COURSE Patient admitted after fall at home. Patient reports that he blacked out. Patient underwent C3-6 PCDF with [place] collar on AAT. And following injuries: Distal radius fx (likely chronic) Relevant Past Medical History: AAA, DVT, HTN HOME LIVING Patient Lives With: Self/Alone Assistance Available: PRN (has sons who live near by) Entry To Home: Stairs, With Rail Number Of Stairs Into Home: 2 Number Of Stairs To Bed/Bath: 0 Tub/Shower Type: walk in shower with seat Laundry: in basement Equipment Owned: Walker- Wheeled PRIOR FUNCTIONAL LEVEL Within Functional Limits Patient reports that he was I with all his care at baseline Baseline Cognition: Oriented to self, Oriented to place, Oriented to time, Oriented to situation SUBJECTIVE Today's not a good day. COGNITION Responsiveness: Alert, Awake Follows Commands: With Increased Time, 2-step Commands Attention Deficits: Redirected with Cues Executive Function Deficits: Judgement, Insight to Deficits, Problem Solving, Motor Planning, Safety Awareness 4AT Score: 0 (01/05/24) Delirium Positive/Negative: Negative (01/05/24) THERAPY DIAGNOSIS Reduced mobility-other, Decreased activities of daily living (ADL), Muscle Weakness (generalized), Unsteadiness on feet, General symptoms and signs-other, Lack of coordination-other TREATMENT INTERVENTIONS Therapeutic Activity (28794) Timed Code Treatment (minutes): 30 Skilled Treatment Time (minutes): 30 Therapeutic Activity (86388) Treatment Minutes: 30 $ Therapeutic Activity (74918) Billed Units: 2 units Pt able to recall 1/3 spinal precautions - reeducation provided on no lifting>5-10 pounds and no twisting. Pt transferred supine>sit with mod A for trunk elevation and transferred EOB>chair with min A, attempted 2x d/t dizziness on initial trial. Sitting in recliner, therapist provided 1 set x10 reps AAROM for LUE shoulder flexion to 90-degrees, elbow flexion/extension, supination/pronation , and grasp/release. Pt unable to tolerate R shoulder AAROM d/t pain, therapist instead provided PROM to R shoulder in flexion to 90-degrees, abduction to 90-degrees, and external rotation to ~45-degrees. Pt then performed AAROM R elbow flexion/extension, pronation/supination , and grasp release. Pt with greater impairments proximally, requiring max A for AAROM at shoulder and elbow, min A at the forearm, and CGA for grasp/release ROM. Pt thenperformed oral hygiene with max A, therapist providing NATIVE assist for LUE to grasp and use toothbrush as well as bring dentures to/from mouth. At end of session, pt seated in recliner with chair alarm on, call light within reach, all needs met. TRAINING AND EDUCATION PROVIDED Activity Adaptation/Compensat ory Strategies, Bed Mobility, Benefits of In-Hospital Mobility, Exercise Program, Grooming Tasks, Positioning, Precautions/Restrict ions, Role of Occupational Therapy, Safety/Judgment, Transfer - Bed to Chair, Transfer - Sit to Stand THERAPEUTIC SKILLS USED Activity Dosing, Cues for Sequencing/Proper Technique for Activity, Cuing Verbal, Physical Assist, Therapeutic Use of Self FUNCTIONAL STATUS Activities of Daily Living Assist Level Additional Information Feeding Maximal Assistance Grooming Maximal Assistance NATIVE assist for denture care. Pt expressing frustration. Therapist provided education on rationale for NMRE via functional activities, engaging BUEs when able to allow for strengthening and (more content not included)... Normal [facility] Basic metabolic 2000 panelon 01-07-2024 Anion gap [Moles/Vol] 12 mmol/L Normal 8-15 [facility] Comment on above: Order Comment: Speci men Type: BLOOD SPECIMENOrdering Facility: [facility] Address: [address] [place] [address] Performed By: #### 2 4321-2 ####[facility]ORATORYCLIA [id number] [place] [address] [place] Calcium [Mass/Vol] 8.7 mg/dL Normal 8.5-10.2 [facility] Comment on above: Order Comment: Speci men Type: BLOOD SPECIMENOrdering Facility: [facility] Address: [address] [place] [address] Performed By: #### 2 4321-2 ####[facility]ORATORYCLIA [id number] [place] [address] [place] Chloride [Moles/Vol] 104 mmol/L Normal 98-107 [facility] Comment on above: Order Comment: Speci men Type: BLOOD SPECIMENOrdering Facility: [facility] Address: [address] [place] [address] Performed By: #### 2 4321-2 ####[facility]ORATORYCLIA [id number] [place] [id number] [place] CO2 [Moles/Vol] 25 mmol/L Normal 22-30 [facility] Comment on above: Order Comment: Speci men Type: BLOOD SPECIMENOrdering Facility: [facility] Address: [address] [place] [address] Performed By: #### 2 4321-2 ####[facility]ORATORYCLIA [id number] [address] [place] Creatinine [Mass/Vol] 0.93 mg/dL Normal 0.73-1.22 [facility] Comment on above: Order Comment: Speci men Type: BLOOD SPECIMENOrdering Facility: [facility] Address: [address] [place] [address] Performed By: #### 2 4321-2 ####[facility]ORATORYCLIA [id number] [address] Creatinine and Glomerular filtration rate.predicted panel (S/P/Bld) 84 mL/min/1.73m??? Normal >=60 [facility] Comment on above: Order Comment: Speci men Type: BLOOD SPECIMENOrdering Facility: [facility] Address: [address] [place] [address] Result Comment: Beatrice mated Glomerular Filtration Rate (eGFR) is calculated using the 2020 CKD-EPI creatinine equation. This equation utilizes serum creatinine, sex, and age as parameters. The creatinine assay has traceable calibration to isotope dilution-mass spectrometry. Refer to KDIGO guidelines for clinical interpretation. In patients with unstable renal function, e.g. those with acute kidney injury, the eGFR may not accurately reflect actual GFR. Performed By: #### 2 4321-2 ####[facility]ORATORYCLIA [id number] [address] [place] Glucose [Mass/Vol] 104 mg/dL High 74-99 [facility] Comment on above: Order Comment: Clementina sally Type: BLOOD SPECIMENOrdering Facility: [facility] Address: [address] [place] [address] Result Comment: The [place] Diabetes Association (ADA) provides guidance for cutoff values for fasting glucose and random glucose. The ADA defines fasting as no caloric intake for at least 8 hours. Fasting plasma glucose results between 100 to 125 [...] Standards of Medical Care in Diabetes 2016, [place] [employer] Association. Diabetes Care. 2016.39(Suppl 1). Performed By: #### 2 4321-2 ####[facility]ORATORYCLIA [id number] [place] [address] [place] Potassium [Moles/Vol] 4.2 mmol/L Normal 3.7-5.1 [facility] Comment on above: Order Comment: Clementina sally Type: BLOOD SPECIMENOrdering Facility: [facility] Address: [address] [place] [address] Performed By: #### 2 4321-2 ####[facility]ORATORYCLIA [id number] [place] [address] [place] Sodium [Moles/Vol] 141 mmol/L Normal 136-144 [facility] Comment on above: Order Comment: Victor Manueli men Type: BLOOD SPECIMENOrdering Facility: [facility] Address: [address] [place] [id number] Performed By: #### 2 4321-2 ####[facility]ATORYCLIA [id number] [place] [address] [place] Urea nitrogen [Mass/Vol] 14 mg/dL Normal 9-24 [facility] Comment on above: Order Comment: Clementina sally Type: BLOOD SPECIMENOrdering Facility: [facility] Address: [address] [place] [address] Performed By: #### 2 4321-2 ####[facility]ORATORYCLIA [id number] [address] CBC panel Auto (Bld)on 01-06 Erythrocyte distribution width (RBC) [Ratio] 16.3 % High 11.5-15.0 [facility] Comment on above: Order Comment: Speci men Type: BLOOD SPECIMENOrdering Facility: [facility] Address: [address] [place] [address] Performed By: #### 5 8410-2 ####[facility]ORATORYCLIA [id number] [address] Hematocrit (Bld) [Volume fraction] 30.9 % Low 39.0-51.0 [facility] Comment on above: Order Comment: Speci men Type: BLOOD SPECIMENOrdering Facility: [facility] Address: [address] [place] [address] Performed By: #### 5 8410-2 ####[facility]ATORYCLIA [id number] [address] Hemoglobin (Bld) [Mass/Vol] 9.9 g/dL Low 13.0-17.0 [facility] Comment on above: Order Comment: Speci men Type: BLOOD SPECIMENOrdering Facility: [facility] Address: [address] [place] [address] Performed By: #### 5 8410-2 ####[facility]ORATORYCLIA [id number] [address] [place] [facility] MCH (RBC) [Entitic mass] 28.1 pg Normal 26.0-34.0 [facility] Comment on above: Order Comment: Speci men Type: BLOOD SPECIMENOrdering Facility: [facility] Address: [address] [place] [address] Performed By: #### 5 8410-2 ####[facility]ATORYCLIA [id number] [address] MCHC (RBC) [Mass/Vol] 32.0 g/dL Normal 30.5-36.0 [facility] Comment on above: Order Comment: Speci men Type: BLOOD SPECIMENOrdering Facility: [facility] Address: [address] [place] [address] Performed By: #### 5 8410-2 ####[facility]ATORYCLIA [id number] [address] [place] MCV (RBC) [Entitic vol] 87.8 fL Normal 80.0-100.0 [facility] Comment on above: Order Comment: Speci men Type: BLOOD SPECIMENOrdering Facility: [facility] Address: [address] [place] [address] Performed By: #### 5 8410-2 ####[facility]ATORYCLIA [id number] [address] [place] Nucleated RBC (Bld) [#/Vol] 10*3/uL Normal <0.01 [facility] Comment on above: Order Comment: Speci men Type: BLOOD SPECIMENOrdering Facility: [facility] Address: [address] [place] [address] Performed By: #### 5 8410-2 ####[facility]ORATORYCLIA [id number] [address] OF [facility] Platelet mean volume (Bld) [Entitic vol] 9.7 fL Normal 9.0-12.7 [facility] Comment on above: Order Comment: Speci men Type: BLOOD SPECIMENOrdering Facility: [facility] Address: [address] [place] [address] Performed By: #### 5 8410-2 ####[facility]ORATORYCLIA [id number] [place] [address] [place] Platelets (Bld) [#/Vol] 340 10*3/uL Normal 150-400 [facility] Comment on above: Order Comment: Speci men Type: BLOOD SPECIMENOrdering Facility: [facility] Address: [address] [place] [address] Performed By: #### 5 8410-2 ####[facility]ATORYCLIA [id number] [address] OF [facility] RBC (Bld) [#/Vol] 3.52 10*6/uL Low 4.20-6.00 [facility] Comment on above: Order Comment: Speci men Type: BLOOD SPECIMENOrdering Facility: [facility] Address: [address] [place] [address] Performed By: #### 5 8410-2 ####[facility]ATORYCLIA [id number] [address] WBC (Bld) [#/Vol] 7.40 10*3/uL Normal 3.70-11.00 [facility] Comment on above: Order Comment: Speci men Type: BLOOD SPECIMENOrdering Facility: [facility] Address: [address] [place] [address] Performed By: #### 5 8410-2 ####[facility]ORATORYCLIA [id number] [address] NUTRITIONon 01-07-2024 NUTRITION HNO ID: [id number] Author: NAKIA RUELAS RD Service: Nutrition Therapy Author Type: Registered Dietitian Type: Nutrition Filed: 01/07/2024 14:07 Note Text: NUTRITION THERAPY PROGRESS NOTE SERVICE DATE: 01/07/2024 SERVICE TIME: 12:35 pm Nutrition Assessment: Recommended Malnutrition Diagnosis: No Malnutrition Identified (01/02/24 1122 : Nathalia Rangel RD) Care Plan: Continue regular diet. Please document and encourage intakes at mealtimes. Continue current diet 2. Continue Supplements: Ensure Plus High Protein Monitor and Evaluation: Meet greater than 75% of estimated needs, Monitor fluid/electrolyte balance, Monitor labs, I/Os, vital signs, weight, Monitor bowel function Discharge Recommendations: Diet;Oral Supplements Diet: Regular Oral Supplements: Energy dense oral nutrition supplements 1-2x per day as needed to maintain adequate intakes Interval History: Patient extubated, diet advanced and transferred to [facility]. He reports a fair appetite. Documented meal intakes varying from 50 to 100% of meal tray. Does enjoy the Ensure. Intake History: Current Nutrition Intake: Less than 75% estimated energy needs Current Intake Over time: Greater than or equal to 5 days Dosing Weight: 106 kg (233 lb 11 oz) Dosing Weight Type: Current weight Estimated kilocalorie needs: 2120 - 2650 kcals Calorie Calculation Method: 20-25 kcals/kg Estimated protein needs (grams): 104 - 128 g Grams protein determined by: 1.2 - 1.6 g/kg, [place] body weight Diet Orders (From admission, onward) Start Ordered 01/06/24 0700 DIET SUPPLEMENTS START NOW Question Answer Comment Supplement 1 ENSURE PLUS HIGH PROTEIN CHOCOLATE Supplement 1 Frequency THREE TIMES/DAY WITH MEALS 01/06/24 0653 01/02/24 1630 DIET REGULAR START NOW 01/02/24 1629 Anthropometrics: Height: 185.4 cm (6' 1) Weight: 106 kg (233 lb 11 oz) Body mass index is 30.83 kg/m?. Stool Amount: WNL (1x BM 01/05) MNT Billing: $ Reassessment: 1-15 minutes SIGNATURE: Nakia Ruelas RD PATIENT NAME: Vicki Randle DATE: January 07, 2024 TIME: 2:06 PM Normal [facility] THERAPY NTon 01-07-2024 THERAPY NT HNO ID: [id number] Author: KANCHAN MANZANO, PT Service: Physical Therapy Author Type: Physical Therapist Type: Therapy (PT/OT/Speech/Resp) Filed: 01/07/2024 10:08 Note Text: Physical Therapy Treatment Summary SERVICE DATE: 01/07/2024 SERVICE TIME: 0938 to 1001 ROOM: [place] [address] PT 6 Clicks Score: 12 DISCHARGE RECOMMENDATIONS Acute Rehab Recommended Discharge Disposition Comments: patient not at functional baseline now with new central cord syndrome Recommended Discharge Disposition Due to: Patient requires active, intensive rehabilitation by multiple therapy disciplines. Anticipate the patient will tolerate 3 hours of therapy per day., Balance deficits, Requires multiple therapy disciplines, Functional status decline ASSESSMENT Response to Therapy Interventions: Good Participation in Activities Patient continues to have significant impairments as result of SCI and will benefit from AR facility setting therapies at d/c. Pt with significant decrease control of UEs but was able to hold onto walker for partial support. PRECAUTIONS Spine C collar on AAT CURRENT HOSPITAL COURSE Patient admitted after fall at home. Patient reports that he blacked out. Patient underwent C3-6 PCDF with [place] collar on AAT. And following injuries: Distal radius fx (likely chronic) Relevant Past Medical History: AAA, DVT, HTN HOME LIVING Patient Lives With: Self/Alone Assistance Available: PRN (has sons who live near by) Entry To Home: Stairs, With Rail Number Of Stairs Into Home: 2 Number Of Stairs To Bed/Bath: 0 Tub/Shower Type: walk in shower with seat Laundry: in basement Equipment Owned: Walker- Wheeled PRIOR FUNCTIONAL LEVEL Within Functional Limits Patient reports that he was I with all his care at baseline SUBJECTIVE Agreeable to PT session THERAPY DIAGNOSIS Reduced mobility-other TREATMENT INTERVENTIONS Therapeutic Exercise (89947), Therapeutic Activity (77802), Gait Training (06338) Timed Code Treatment (minutes): 23 Skilled Treatment Time (minutes): 23 Therapeutic Exercise (94893) Treatment Minutes: 8 $ Therapeutic Exercise (16845) Billed Units: 1 unit Patient completed supine open kinetic chain active range of motion including straight leg raise, heel slides, hip abduction, Ankle pumps, and quad/glute sets 1x10 without added resistance to increase strength required for safe performance of all transfers/ambulation Therapeutic Activity (56867) Treatment Minutes: 7 $ Therapeutic Activity (69829) Billed Units: 0 units Directed in bed mobility (log roll), side lying to sit, and sit to stand transfers. Patient needed assist to place UEs with all of these. Pt. Educated in safe bed mobility including: log roll technique to protect spine from torsion forces when turning in bed; side lying to sit, and sit to side lying to protect spine during transfer to and from sitting position. Educated in spine surgery precautions including avoiding: Bending; Lifting greater than 10 pounds (unless the surgeon advises even less weight); Twisting. Educated to remember the acronym BLT to recall the above precautions (as a memory aid). Gait Training (75275) Treatment Minutes: 8 $ Gait Training (03422) Billed Units: 1 unit Walker use. Patient needed assist and verbal cues to remain within the frame of the walker. TRAINING AND EDUCATION PROVIDED Assistive Device Use, Bed Mobility, Benefits of In-Hospital Mobility, Discharge Planning, Disease Specific Education, Expected Functional Level, Gait Pattern, Reduction of Deviations, Precautions/Restrict ions, Pre-gait Activities, Role of Physical Therapy, Sitting Balance, Standing Balance, Transfers THERAPEUTIC SKILLS USED Cues for Sequencing/Proper Technique for Activity, Cuing Tactile, Cuing Verbal, Cuing Visual, Movement Facilitation, Muscle Activation Facilitation, Physical Assist, Postural Alignment Correction FUNCTIONAL STATUS Bed Mobility Supine To Sit: Moderate Assistance, Additional Information Cues to spring bender his knees and to roll onto side, PT assisted to reach across body Sit to Supine: Moderate Assistance, Additional Information Transfers Sit To Stand: Minimal Assistance Pt initially dizzy but improved Stand To Sit: Contact Guard Assistance, Additional Information Cues to make sure legs are touching the bed/chair prior to sitting. Instructed patient to reach back and sit slowly Bed to Chair Minimal Assistance, Additional Information Bed To Chair Transfer Type: Stepping Bed To Chair Transfer Equipment: Gait Belt Provided assistance at the gait belt for balance and support. Cues to get fully to the chair. Gait Minimal Assistance, Moderate Assistance, Additional Information Pt needs assist to hold walker with hands, pt needs cues to remain within the frame of the walker. Gait Device: Wheeled Walker General Deviations/Observati ons: Step length decreased, Improper distancing from assistiv (more content not included)... Normal [facility] Basic metabolic 2000 panelon 01-06-2024 Anion gap [Moles/Vol] 9 mmol/L Normal 8-15 [facility] Comment on above: Order Comment: Speci men Type: BLOOD SPECIMENOrdering Facility: [facility] Address: [address] [place] [address] Performed By: #### 2 777-1, , ####[facility]ORATORYCLIA [id number] [place] [address] [place] Calcium [Mass/Vol] 8.7 mg/dL Normal 8.5-10.2 [facility] Comment on above: Order Comment: Speci men Type: BLOOD SPECIMENOrdering Facility: [facility] Address: [address] [place] [address] Performed By: #### 2 777-1, , ####[facility]ORATORYCLIA [id number] [place] [address] [place] Chloride [Moles/Vol] 101 mmol/L Normal 98-107 [facility] Comment on above: Order Comment: Speci men Type: BLOOD SPECIMENOrdering Facility: [facility] Address: [address] [place], [place] [address] Performed By: #### 2 777-1, , ####[facility]ENTERCLIA [id number] [place] [address] [facility] CO2 [Moles/Vol] 27 mmol/L Normal 22-30 [facility] Comment on above: Order Comment: Speci men Type: BLOOD SPECIMENOrdering Facility: [facility] Address: [address] [place] [address] Performed By: #### 2 777-1, , ####[facility]CLIA [id number] [address] Creatinine [Mass/Vol] 0.89 mg/dL Normal 0.73-1.22 [facility] Comment on above: Order Comment: Speci men Type: BLOOD SPECIMENOrdering Facility: [facility] Address: [address] [place] [address] Performed By: #### 2 777-1, , ####[facility] CORPORATIONIA [id number] [address] Creatinine and Glomerular filtration rate.predicted panel (S/P/Bld) 88 mL/min/1.73m??? Normal >=60 [facility] Comment on above: Order Comment: Speci men Type: BLOOD SPECIMENOrdering Facility: [facility] Address: [address] [place], [place] [address] Result Comment: Beatrice mated Glomerular Filtration Rate (eGFR) is calculated using the 2020 CKD-EPI creatinine equation. This equation utilizes serum creatinine, sex, and age as parameters. The creatinine assay has traceable calibration to isotope dilution-mass spectrometry. Refer to KDIGO guidelines for clinical interpretation. In patients with unstable renal function, e.g. those with acute kidney injury, the eGFR may not accurately reflect actual GFR. Performed By: #### 2 777-1, , 35083-9 ####[facility]CLIA [id number] [place] [id number] [place] Glucose [Mass/Vol] 105 mg/dL High 74-99 [facility] Comment on above: Order Comment: Speci men Type: BLOOD SPECIMENOrdering Facility: [facility] Address: [address] [place] [address] Result Comment: The [place] Diabetes Association (ADA) provides guidance for cutoff values for fasting glucose and random glucose. The ADA defines fasting as no caloric intake for at least 8 hours. Fasting plasma glucose results between 100 to 125 [...] Standards of Medical Care in Diabetes 2016, [place] Diabetes Association. Diabetes Care. 2016.39(Suppl 1). Performed By: #### 2 777-1, , ####[facility]ORATORYCLIA [id number] [place] [address] [place] Potassium [Moles/Vol] 4.3 mmol/L Normal 3.7-5.1 [facility] Comment on above: Order Comment: Clementina zavala Type: BLOOD SPECIMENOrdering Facility: [facility] Address: [address] [place] [address] Performed By: #### 2 777-1, , ####[facility]ORATORYCLIA [id number] [place] [address] [place] Sodium [Moles/Vol] 137 mmol/L Normal 136-144 [facility] Comment on above: Order Comment: Clementina men Type: BLOOD SPECIMENOrdering Facility: [facility] Address: [address] [place] [address] Performed By: #### 2 777-1, , ####[facility]ORATORYCLIA [id number] [place] [address] [place] Urea nitrogen [Mass/Vol] 8 mg/dL Low 9-24 [facility] Comment on above: Order Comment: Speci men Type: BLOOD SPECIMENOrdering Facility: [facility] Address: [address] [place] [address] Performed By: #### 2 777-1, 49417-5, 51627-0 ####[facility]ORATORYCLIA [id number] [address] STATES OF [facility] CBC panel Auto (Bld)on 01-05 Erythrocyte distribution width (RBC) [Ratio] 16.1 % High 11.5-15.0 [facility] Comment on above: Order Comment: Speci men Type: BLOOD SPECIMENOrdering Facility: [facility] Address: [address] [place] [address] Performed By: #### 5 8410-2 ####[facility]ORATORYCLIA [id number] [address] STATES OF [facility] Hematocrit (Bld) [Volume fraction] 31.0 % Low 39.0-51.0 [facility] Comment on above: Order Comment: Speci men Type: BLOOD SPECIMENOrdering Facility: [facility] Address: [address] [place] [address] Performed By: #### 5 8410-2 ####[facility]ORATORYCLIA [id number] [address] [place] Hemoglobin (Bld) [Mass/Vol] 9.8 g/dL Low 13.0-17.0 [facility] Comment on above: Order Comment: Speci men Type: BLOOD SPECIMENOrdering Facility: [facility] Address: [address] [place] [address] Performed By: #### 5 8410-2 ####[facility]ORATORYCLIA [id number] [address] [place] MCH (RBC) [Entitic mass] 27.8 pg Normal 26.0-34.0 [facility] Comment on above: Order Comment: Speci men Type: BLOOD SPECIMENOrdering Facility: [facility] Address: [address] [place] [address] Performed By: #### 5 8410-2 ####[facility]ORATORYCLIA [id number] [address] MCHC (RBC) [Mass/Vol] 31.6 g/dL Normal 30.5-36.0 [facility] Comment on above: Order Comment: Speci men Type: BLOOD SPECIMENOrdering Facility: [facility] Address: [address] [place] [address] Performed By: #### 5 8410-2 ####[facility]ORATORYCLIA [id number] [address] [place] MCV (RBC) [Entitic vol] 87.8 fL Normal 80.0-100.0 [facility] Comment on above: Order Comment: Speci men Type: BLOOD SPECIMENOrdering Facility: [facility] Address: [address] [place] [address] Performed By: #### 5 8410-2 ####[facility] LABORATORYCLIA [id number] [address] Nucleated RBC (Bld) [#/Vol] 10*3/uL Normal <0.01 [facility] Comment on above: Order Comment: Speci men Type: BLOOD SPECIMENOrdering Facility: [facility] Address: [address] [place] [address] Performed By: #### 5 8410-2 ####[facility] LABORATORYCLIA [id number] [address] OF [facility] Platelet mean volume (Bld) [Entitic vol] 9.9 fL Normal 9.0-12.7 [facility] Comment on above: Order Comment: Speci men Type: BLOOD SPECIMENOrdering Facility: [facility] Address: [address] [place] [address] Performed By: #### 5 8410-2 ####[facility] LABORATORYCLIA [id number] [address] OF [place] Platelets (Bld) [#/Vol] 311 10*3/uL Normal 150-400 [facility] Comment on above: Order Comment: Speci men Type: BLOOD SPECIMENOrdering Facility: [facility] Address: [address] [place] [address] Performed By: #### 5 8410-2 ####[facility] LABORATORYCLIA [id number] [address] OF [facility] RBC (Bld) [#/Vol] 3.53 10*6/uL Low 4.20-6.00 [facility] Comment on above: Order Comment: Speci men Type: BLOOD SPECIMENOrdering Facility: [facility] Address: [address] [place] [address] Performed By: #### 5 8410-2 ####[facility]ORATORYCLIA [id number] [address] WBC (Bld) [#/Vol] 6.86 10*3/uL Normal 3.70-11.00 [facility] Comment on above: Order Comment: Speci men Type: BLOOD SPECIMENOrdering Facility: [facility] Address: [address] [place] [address] Performed By: #### 5 8410-2 ####[facility]ORATORYCLIA [id number] [address] CONSULT PROGon 01-06-2024 CONSULT PROG HNO ID: [id number] Author: PRESTON ABEL APRN.TABLEMAN Service: Neurosurgery Author Type: Nurse Practitioner Type: Consult Progress Note Filed: 01/06/2024 09:34 Note Text: Neurosurgery Progress Note SERVICE DATE: 01/06/2024 SUBJECTIVE: NAEON, patient doing well this morning. OBJECTIVE: Vitals: Temp (24hrs), Av.6 ?C (97.9 ?F), Min:36.2 ?C (97.2 ?F), Max:36.8 ?C (98.3 ?F) BP 151/81 Pulse 101 Temp 36.5 ?C (97.7 ?F) (Temporal) Resp 15 Ht 185.4 cm (6' 1) Wt 106 kg (233 lb 11 oz) SpO2 96% BMI 30.83 kg/m? O2 Therapy: Room Air IANDO: Date 01/05/24699 - 01/06/2465801/06/24699 - 01/07/24 0659 Shift 5695-0423 6283-2033 0100-5832 24 Hour Total 1737-7268 3761-4441 5844-8156 24 Hour Total INTAKE PO 250 250 PO 250 250 IV 450 100 550 Volume (mL) (sodium phosphate 45 mmol in D5W 250 mL) 250 250 Volume (mL) (calcium gluconate iv piggyback 2 g in NaCl (iso-osmotic) 100 mL) 200 100 300 Shift Total 700 100 800 OUTPUT Urine 310 445 8394 Void (ml) 200 200 Urine Incontinence/Not Saved 2 x 2 x Output ( External Collection Device 01/04/241999 [facility]) 600 250 850 Tubes 0 0 100 100 0 0 Drain/Tube Output (Drain/Tube 01/01/242124 [facility] Hemovac Posterior Neck) 0 0 100 100 0 0 # of BMs Number of BMs 0 x 0 x Shift Total 800 384 253 9135 0 0 Weight (kg) 105.4 105.4 106 106 106 106 106 106 Medications: Current Facility-Administere d Medications Medication Dose Route Frequency oxyCODONE IR 5 mg tab(s) (ROXICODONE) 5 mg ORAL/FEEDING TUBE q 4 H PRN lidocaine 4 % 1 Patch (SALONPAS) 1 Patch TRANSDERMAL DAILY And lidocaine - VERIFY PATCH OTHER q 8 H phosphorus 250 mg tab(s) (K PHOS NEUTRAL) 250 mg ORAL PC and HS melatonin 9 mg tab(s) 9 mg ORAL DAILY (8 PM) QUEtiapine 50 mg tab(s) (SEROquel) 50 mg ORAL AT BEDTIME methocarbamol 500 mg tab(s) (ROBAXIN) 500 mg ORAL/FEEDING TUBE TID PRN polyethylene glycol 3350 17 g packet 17 g ORAL DAILY haloperidol lactate 5 mg short-acting injection (HALDOL) 5 mg INTRAVENOUS q 6 H PRN heparin 5,000 Units injection 5,000 Units SUBCUTANEOUS q 8 H fentaNYL 50 mcg/mL 25 mcg injection (SUBLIMAZE) 25 mcg INTRAVENOUS q 2 H PRN dextrose 15 gram/32 mL 15 g (TRUEPLUS) 15 g ORAL PRN Or glucagon 1 mg injection 1 mg INTRAMUSCULAR PRN Or dextrose 10% iv bolus 12.5 g INTRAVENOUS PRN ergocalciferol (vitamin D2) 50,000 Units cap(s) (DRISDOL) 50,000 Units ORAL 1/WK acetaminophen 975 mg tab(s) (TYLENOL) 975 mg ORAL/FEEDING TUBE QID gabapentin 100 mg cap(s) (NEURONTIN) 100 mg ORAL/FEEDING TUBE TID vitamin with folic acid 1 mg 1 tablet 1 tablet ORAL DAILY senna-docusate 8.6-50 mg 1 tablet (SENNA-S) 1 tablet ORAL/FEEDING TUBE BID NaCl 0.9% iv flush bag 20 mL INTRAVENOUS PRN thiamine 100 mg tab(s) (VITAMIN B1) 100 mg ORAL/FEEDING TUBE TID potassium chloride 20-40 mEq oral powder (KLOR-CON) 20-40 mEq ORAL/FEEDING TUBE PRN Or potassium chloride iv piggyback 20 mEq/100 mL 20 mEq INTRAVENOUS PRN sodium phosphate 30 mmol in D5W 250 mL 30 mmol INTRAVENOUS PRN(NO DISPENSE) Or sodium phosphate 45 mmol in D5W 250 mL 45 mmol INTRAVENOUS PRN(NO DISPENSE) magnesium sulfate iv piggyback in sterile water 2 g 50 mL 2 g INTRAVENOUS PRN calcium gluconate iv piggyback 2 g in NaCl (iso-osmotic) 100 mL 2 g INTRAVENOUS PRN(NO DISPENSE) ondansetron (PF) 4 mg injection (ZOFRAN) 4 mg INTRAVENOUS q 6 H PRN Labs: Recent Labs 01/06/24 0218 01/05/24 0257 NA 137 139 K 4.3 4.0 CHLOR 101 103 CO2 27 28 BUN 8* 8* CREAT 0.89 0.80 GLUC 105* 104* ANION 9 8 CA 8.7 8.7 MG 2.1 2.2 P 4.4 2.7 WBC 6.86 7.71 HB 9.8* 10.2* HCT 31.0* 32.2* PLT 311 272 Imaging: NNI Exam: GENERAL: No distress, Alert NEURO: Neuro : A+O x3, PERRL, makes eye contact, speech clear, cranial nerves 2-12 grossly intact , GARDNER, Motor Exam- RUE:deltoid 2/5 distal to this 5/5 LUE:deltoid 2/5 2+ bicep 4+tricep, 5/5 on wrist and clerk secretary RLE:5/5 LLE:5/5 HEENT: normocephalic, atraumatic NECK/BACK:in collar with drain, drain output 100 over 24 hours LUNGS: Unlabored breathing CARDIAC: Regular rate and rhythm as above ABDOMEN: Soft, non-tender, non-distended EXTREMITIES: GARDNER, No deformities, No edema SKIN: Skin color, texture, turgor normal, No rashes or lesions ASSESSMENT AND PLAN: Active Hospital Problems Diagnosis Date Noted Trauma 01/01/2024 Acute respiratory failure following trauma and surgery ([facility]) 01/02/2024 Fall 01/01/2024 Closed nondisplaced fracture of fourth cervical vertebra ([facility]) 01/01/2024 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 Normal [facility] CONSULT PROG HNO ID: [id number] Author: JESSIE LOPEZ MD Service: General Surgery Author Type: Physician Type: Consult Progress Note Filed: 01/06/2024 12:21 Note Text: INPATIENT SICU PROGRESS NOTE SERVICE DATE: 01/06/2024 SERVICE TIME: 6:49 AM Subjective Patient seen and examined this morning. Overall feeling well. He is sitting up in the chair watching the eLama this morning. Still having some right shoulder discomfort. Tolerating diet well. No N/V. Passing gas, no bowel movement. Current Facility-Administere d Medications Medication Dose Route Frequency NaCl 0.9% iv flush bag 20 mL INTRAVENOUS PRN thiamine 100 mg tab(s) (VITAMIN B1) 100 mg ORAL/FEEDING TUBE TID potassium chloride 20-40 mEq oral powder (KLOR-CON) 20-40 mEq ORAL/FEEDING TUBE PRN Or potassium chloride iv piggyback 20 mEq/100 mL 20 mEq INTRAVENOUS PRN sodium phosphate 30 mmol in D5W 250 mL 30 mmol INTRAVENOUS PRN(NO DISPENSE) Or sodium phosphate 45 mmol in D5W 250 mL 45 mmol INTRAVENOUS PRN(NO DISPENSE) magnesium sulfate iv piggyback in sterile water 2 g 50 mL 2 g INTRAVENOUS PRN calcium gluconate iv piggyback 2 g in NaCl (iso-osmotic) 100 mL 2 g INTRAVENOUS PRN(NO DISPENSE) ondansetron (PF) 4 mg injection (ZOFRAN) 4 mg INTRAVENOUS q 6 H PRN fentaNYL 50 mcg/mL 25 mcg injection (SUBLIMAZE) 25 mcg INTRAVENOUS q 2 H PRN dextrose 15 gram/32 mL 15 g (TRUEPLUS) 15 g ORAL PRN Or glucagon 1 mg injection 1 mg INTRAMUSCULAR PRN Or dextrose 10% iv bolus 12.5 g INTRAVENOUS PRN ergocalciferol (vitamin D2) 50,000 Units cap(s) (DRISDOL) 50,000 Units ORAL 1/WK Followed by [START ON 02/27/2024] cholecalciferol 1,000 Units tab(s) (VITAMIN D3) 1,000 Units ORAL DAILY acetaminophen 975 mg tab(s) (TYLENOL) 975 mg ORAL/FEEDING TUBE QID gabapentin 100 mg cap(s) (NEURONTIN) 100 mg ORAL/FEEDING TUBE TID vitamin with folic acid 1 mg 1 tablet 1 tablet ORAL DAILY senna-docusate 8.6-50 mg 1 tablet (SENNA-S) 1 tablet ORAL/FEEDING TUBE BID oxyCODONE IR 5-10 mg tab(s) (ROXICODONE) 5-10 mg ORAL/FEEDING TUBE q 6 H PRN heparin 5,000 Units injection 5,000 Units SUBCUTANEOUS q 8 H melatonin 9 mg tab(s) 9 mg ORAL DAILY (8 PM) QUEtiapine 50 mg tab(s) (SEROquel) 50 mg ORAL AT BEDTIME methocarbamol 500 mg tab(s) (ROBAXIN) 500 mg ORAL/FEEDING TUBE TID PRN polyethylene glycol 3350 17 g packet 17 g ORAL DAILY haloperidol lactate 5 mg short-acting injection (HALDOL) 5 mg INTRAVENOUS q 6 H PRN Objective VITAL SIGNS BP 140/79 Pulse 97 Temp (Src) 98.3 (Axillary) Resp 19 Ht 6' 1 (1.85m) Wt 233 lb 11 oz (106.0kg) SpO2 96% BMI 30.84 kg/(m2). O2 Therapy: Nasal Cannula, Liters: 2 Temp (24hrs), Av.7 ?C (98 ?F), Min:36.2 ?C (97.2 ?F), Max:36.8 ?C (98.3 ?F) Date 01/05/24 07 - 01/06/24 0659 01/06/24 07 - 01/07/24 0659 Shift 6925-8954 1376-2454 5175-1152 24 Hour Total 6413-1500 7391-4119 1783-8207 24 Hour Total INTAKE PO 250 250 PO 250 250 IV 450 100 550 Volume (mL) (sodium phosphate 45 mmol in D5W 250 mL) 250 250 Volume (mL) (calcium gluconate iv piggyback 2 g in NaCl (iso-osmotic) 100 mL) 200 100 300 Shift Total 700 100 800 OUTPUT Urine 780 535 0096 Void (ml) 200 200 Urine Incontinence/Not Saved 2 x 2 x Output ( External Collection Device 01/04/241999 [facility]) 600 250 850 Tubes 0 0 100 100 Drain/Tube Output (Drain/Tube 01/01/242124 [facility] Hemovac Posterior Neck) 0 0 100 100 # of BMs Number of BMs 0 x 0 x Shift Total 800 777 995 3006 Weight (kg) 105.4 105.4 106 106 106 106 106 106 PHYSICAL EXAM: GENERAL: Alert. No distress. Resting comfortably. NEURO: AANDOx3. No focal neurologic deficits. Sensation and motor grossly intact. HEENT: Normocephalic. Healing abrasions and ecchymosis on head EOMI. C - collar in place. Drain with SS output LUNGS: Unlabored breathing. Equal excursion bilaterally. CARDIAC: Regular rate, on tele, Good perfusion throughout. ABDOMEN: Soft, non-tender, non-distended. No rebound or guarding. EXTREMITIES: GARDNER. No deformities. Mild tenderness posterior bilateral shoulders SKIN: No obvious jaundice or pallor. Multiple healing bruises and abrasions on extremities and head DATA: Diagnostic tests reviewed for today's visit: No results for input(s): BODSITE, CTYPE, PH, PCO2, PO2, BE, HCO3, CO2CT, O2HB, COHB, MHGB, TEMP, PHTC, PCO2T, PO2T, O2AD in the last 72 hours. Recent Labs 01/06/24 0218 01/05/24 0257 01/04/24 0352 CREAT 0.89 0.80 0.84 BUN 8* 8* 9 NA 137 139 135* K 4.3 4.0 3.9 CHLOR 101 103 100 CO2 27 28 27 ANION 9 8 8 GLUC 105* 104* 112* CA 8.7 8.7 8.3* P 4.4 2.7 2.9 MG 2.1 2.2 1.8 WBC 6.86 7.71 8.42 HB 9.8* 10.2* 9.9* HCT 31.0* 32.2* 31.1* PLT 311 272 230 Assessment AND Plan ACTIVE PROBLEM LIST Hyperlipidemia With Target Ldl Less Than 100 Esophageal Reflux Personal History of Other Malignant Neoplasm of Skin Bph With Obstruction/Lower Urinary Tr (more content not included)... Normal [facility] Calcium.ionized [Moles/Vol]o n 01-06-2024 Calcium.ionized (BldV) [Mass/Vol] 1.20 mmol/L Normal 1.08-1.30 [facility] Comment on above: Order Comment: Speci men Type: BLOOD SPECIMENOrdering Facility: [facility] Address: [address] [place] [address] Performed By: #### 1 995-0 ####[facility]ORATORYCLIA [id number] [place] [address] [place] Calcium.ionized adjusted to pH 7.4 (Bld) [Moles/Vol] 1.16 mmol/L Normal 1.08-1.30 [facility] Comment on above: Order Comment: Speci men Type: BLOOD SPECIMENOrdering Facility: [facility] Address: [address] [place] [address] Performed By: #### 1 995-0 ####[facility]ATORYCLIA [id number] [place] [address] [place] Magnesium SerPl-mCncon 01-05 Magnesium [Mass/Vol] 2.1 mg/dL Normal 1.7-2.3 [facility] Comment on above: Order Comment: Speci men Type: BLOOD SPECIMENOrdering Facility: [facility] Address: [address] [place] [address] Performed By: #### 2 777-1, 84168-4, 64107-7 ####[facility]ATORYCLIA [id number] [address] NURSING PROGon 01-06-2024 NURSING PROG HNO ID: [id number] Author: ELLE TREVINO, RN Service: ? Author Type: Registered Nurse Type: Nursing Progress Note Filed: 01/06/2024 23:58 Note Text: Patient experiencing upper respiratory congestion. Dr.Arboleda Avila paged. No new orders at this time. Normal [facility] NURSING PROG HNO ID: [id number] Author: ELLE TREVINO, KHRIS Service: ? Author Type: Registered Nurse Type: Nursing Progress Note Filed: 01/06/2024 20:16 Note Text: 2000: This RN paged due to patient endorsing SOB 2005: Austin at the bedside to examine patient. Order for PRN breathing treatment received. Normal [facility] Phosphate SerPl-mCncon 01-05 Phosphate [Mass/Vol] 4.4 mg/dL Normal 2.7-4.8 [facility] Comment on above: Order Comment: Speci men Type: BLOOD SPECIMENOrdering Facility: [facility] Address: [address] [place] [address] Performed By: #### 2 777-1, 36879-2, 92790-3 ####[facility]ATORYCLIA [id number] [address] XR CHEST 1V FRONTALon 2023 XR CHEST 1V FRONTAL * * *Final Report* * * DATE OF EXAM: Jan 06 2024 9:27PM AKX [id number] - XR CHEST 1V FRONTAL / PROCEDURE REASON: Shortness of breath * * * * Physician Interpretation * * * * EXAMINATION: CHEST RADIOGRAPH (SINGLE VIEW AP OR PA) CLINICAL HISTORY: Shortness of breath MQ: XC1_5 Comparison: Chest x-ray 01/02/2024 RESULT: Lines, tubes, and devices: Interval removal of the enteric tube and central venous catheter. Lungs and pleura: Stable small left pleural effusion and hazy airspace opacities at the left lung base. Cardiomediastinal silhouette: Normal cardiomediastinal silhouette. Other: . IMPRESSION: Stable small left pleural effusion with adjacent probable atelectasis. Relocation Services Specialist: PSCB Transcribe Date/Time: Jan 06 2024 10:08P Dictated by : ESTEFANI SMITH MD This examination was interpreted and the report reviewed and electronically signed by: ESTEFANI SMITH MD on Jan 06 2024 10:09PM EST [id number] CN Normal [facility] Basic metabolic 2000 panelon 01-05-2024 Anion gap [Moles/Vol] 8 mmol/L Normal 8-15 [facility] Comment on above: Order Comment: Speci men Type: BLOOD SPECIMENOrdering Facility: [facility] Address: [address] [place] [address] Performed By: #### 2 777-1, 55391-1, ####[facility]ATORYCLIA [id number] [place] [address] [place] Calcium [Mass/Vol] 8.7 mg/dL Normal 8.5-10.2 [facility] Comment on above: Order Comment: Speci men Type: BLOOD SPECIMENOrdering Facility: [facility] Address: [address] [place] [address] Performed By: #### 2 777-1, 29941-2, ####[facility]ATORYCLIA [id number] [place] [address] [place] Chloride [Moles/Vol] 103 mmol/L Normal 98-107 [facility] Comment on above: Order Comment: Speci men Type: BLOOD SPECIMENOrdering Facility: [facility] Address: [address] [place] [address] Performed By: #### 2 777-1, , ####[facility]ATORYCLIA [id number] [place] [address] [place] CO2 [Moles/Vol] 28 mmol/L Normal 22-30 [facility] Comment on above: Order Comment: Speci men Type: BLOOD SPECIMENOrdering Facility: [facility] Address: [address] [id number] Performed By: #### 2 777-1, 04012-1, ####[facility]CLIA [id number] [place] [id number] [place] Creatinine [Mass/Vol] 0.80 mg/dL Normal 0.73-1.22 [facility] Comment on above: Order Comment: Speci men Type: BLOOD SPECIMENOrdering Facility: [facility] Address: [address] [place] [address] Performed By: #### 2 777-1, 22596-8, ####[facility] CORPORATIONIA [id number] [address] Creatinine and Glomerular filtration rate.predicted panel (S/P/Bld) 91 mL/min/1.73m??? Normal >=60 [facility] Comment on above: Order Comment: Speci men Type: BLOOD SPECIMENOrdering Facility: [facility] Address: [address] [place] [address] Result Comment: Beatrice mated Glomerular Filtration Rate (eGFR) is calculated using the 2020 CKD-EPI creatinine equation. This equation utilizes serum creatinine, sex, and age as parameters. The creatinine assay has traceable calibration to isotope dilution-mass spectrometry. Refer to KDIGO guidelines for clinical interpretation. In patients with unstable renal function, e.g. those with acute kidney injury, the eGFR may not accurately reflect actual GFR. Performed By: #### 2 777-1, 30895-2, ####[facility]ATORYCLIA [id number] [place] [id number] [place] Glucose [Mass/Vol] 104 mg/dL High 74-99 [facility] Comment on above: Order Comment: Speci men Type: BLOOD SPECIMENOrdering Facility: [facility] Address: [address] [place] [address] Result Comment: The [place] Diabetes Association (ADA) provides guidance for cutoff values for fasting glucose and random glucose. The ADA defines fasting as no caloric intake for at least 8 hours. Fasting plasma glucose results between 100 to 125 [...] Standards of Medical Care in Diabetes 2016, [place] [employer] Association. Diabetes Care. 2016.39(Suppl 1). Performed By: #### 2 777-1, , ####[facility]ATORYCLIA [id number] [place] [address] [place] Potassium [Moles/Vol] 4.0 mmol/L Normal 3.7-5.1 [facility] Comment on above: Order Comment: Clementina zavala Type: BLOOD SPECIMENOrdering Facility: [facility] Address: [address] [place] [address] Performed By: #### 2 777-1, , ####[facility]ATORYCLIA [id number] [place] [address] [place] Sodium [Moles/Vol] 139 mmol/L Normal 136-144 [facility] Comment on above: Order Comment: Clementina zavala Type: BLOOD SPECIMENOrdering Facility: [facility] Address: [address] [place] [address] Performed By: #### 2 777-1, , ####[facility]ATORYCLIA [id number] [place] [address] [place] Urea nitrogen [Mass/Vol] 8 mg/dL Low 9-24 [facility] Comment on above: Order Comment: Clementina zavala Type: BLOOD SPECIMENOrdering Facility: [facility] Address: [address] [place] [address] Performed By: #### 2 777-1, , ####[facility]ATORYCLIA [id number] [place] [address] [place] CBC panel Auto (Bld)on 01-04 Erythrocyte distribution width (RBC) [Ratio] 15.8 % High 11.5-15.0 [facility] Comment on above: Order Comment: Speci men Type: BLOOD SPECIMENOrdering Facility: [facility] Address: [address] [place] [address] Performed By: #### 5 8410-2 ####[facility]ORATORYCLIA [id number] [address] Hematocrit (Bld) [Volume fraction] 32.2 % Low 39.0-51.0 [facility] Comment on above: Order Comment: Speci men Type: BLOOD SPECIMENOrdering Facility: [facility] Address: [address] [place] [address] Performed By: #### 5 8410-2 ####[facility]ATORYCLIA [id number] [address] Hemoglobin (Bld) [Mass/Vol] 10.2 g/dL Low 13.0-17.0 [facility] Comment on above: Order Comment: Speci men Type: BLOOD SPECIMENOrdering Facility: [facility] Address: [address] [place] [address] Performed By: #### 5 8410-2 ####[facility]ORATORYCLIA [id number] [address] MCH (RBC) [Entitic mass] 28.2 pg Normal 26.0-34.0 [facility] Comment on above: Order Comment: Speci men Type: BLOOD SPECIMENOrdering Facility: [facility] Address: [address] [place] [address] Performed By: #### 5 8410-2 ####[facility]ORATORYCLIA [id number] [address] [place] [facility] MCHC (RBC) [Mass/Vol] 31.7 g/dL Normal 30.5-36.0 [facility] Comment on above: Order Comment: Speci men Type: BLOOD SPECIMENOrdering Facility: [facility] Address: [address] [place] [address] Performed By: #### 5 8410-2 ####[facility]ORATORYCLIA [id number] [address] OF [facility] MCV (RBC) [Entitic vol] 89.0 fL Normal 80.0-100.0 [facility] Comment on above: Order Comment: Speci men Type: BLOOD SPECIMENOrdering Facility: [facility] Address: [address] [place] [address] Performed By: #### 5 8410-2 ####[facility]ORATORYCLIA [id number] [address] Nucleated RBC (Bld) [#/Vol] 10*3/uL Normal <0.01 [facility] Comment on above: Order Comment: Speci men Type: BLOOD SPECIMENOrdering Facility: [facility] Address: [address] [place] [address] Performed By: #### 5 8410-2 ####[facility]ORATORYCLIA [id number] [address] Platelet mean volume (Bld) [Entitic vol] 9.7 fL Normal 9.0-12.7 [facility] Comment on above: Order Comment: Speci men Type: BLOOD SPECIMENOrdering Facility: [facility] Address: [address] [place] [address] Performed By: #### 5 8410-2 ####[facility]ORATORYCLIA [id number] [address] Platelets (Bld) [#/Vol] 272 10*3/uL Normal 150-400 [facility] Comment on above: Order Comment: Speci men Type: BLOOD SPECIMENOrdering Facility: [facility] Address: [address] [place] [address] Performed By: #### 5 8410-2 ####[facility]ORATORYCLIA [id number] [address] [place] RBC (Bld) [#/Vol] 3.62 10*6/uL Low 4.20-6.00 [facility] Comment on above: Order Comment: Speci men Type: BLOOD SPECIMENOrdering Facility: [facility] Address: [address] [place], [place] [id number] Performed By: #### 5 8410-2 ####[facility]ORATORYCLIA [id number] [address] OF [facility] WBC (Bld) [#/Vol] 7.71 10*3/uL Normal 3.70-11.00 [facility] Comment on above: Order Comment: Speci men Type: BLOOD SPECIMENOrdering Facility: [facility] Address: [address] [place] [address] Performed By: #### 5 8410-2 ####[facility]ORATORYCLIA [id number] [place] [id number] [facility] CONSULT PROGon 01-05-2024 CONSULT PROG HNO ID: [id number] Author: JESSIE LOPEZ MD Service: General Surgery Author Type: Physician Type: Consult Progress Note Filed: 01/05/2024 11:14 Note Text: INPATIENT SICU PROGRESS NOTE SERVICE DATE: 01/05/2024 SERVICE TIME: 6:42 AM Subjective Patient seen and examined this morning. Overall feeling well. Pain okay. Only discomfort remains in the right shoulder, which has been present since admission. Tolerating a diet, no N/V. Passing lots of gas, no bowel movement. Auto mapping. Current Facility-Administere d Medications Medication Dose Route Frequency NaCl 0.9% iv flush bag 20 mL INTRAVENOUS PRN sodium chloride 0.9 % (flush) 2-10 mL (BD POSIFLUSH) 2-10 mL INTRAVENOUS DIRECTED PRN thiamine 100 mg tab(s) (VITAMIN B1) 100 mg ORAL/FEEDING TUBE TID potassium chloride 20-40 mEq oral powder (KLOR-CON) 20-40 mEq ORAL/FEEDING TUBE PRN Or potassium chloride iv piggyback 20 mEq/100 mL 20 mEq INTRAVENOUS PRN sodium phosphate 30 mmol in D5W 250 mL 30 mmol INTRAVENOUS PRN(NO DISPENSE) Or sodium phosphate 45 mmol in D5W 250 mL 45 mmol INTRAVENOUS PRN(NO DISPENSE) magnesium sulfate iv piggyback in sterile water 2 g 50 mL 2 g INTRAVENOUS PRN calcium gluconate iv piggyback 2 g in NaCl (iso-osmotic) 100 mL 2 g INTRAVENOUS PRN(NO DISPENSE) ondansetron (PF) 4 mg injection (ZOFRAN) 4 mg INTRAVENOUS q 6 H PRN pantoprazole 20 mg oral liquid (PROTONIX) 20 mg ORAL/FEEDING TUBE DAILY (6 AM) fentaNYL 50 mcg/mL 25 mcg injection (SUBLIMAZE) 25 mcg INTRAVENOUS q 2 H PRN dextrose 15 gram/32 mL 15 g (TRUEPLUS) 15 g ORAL PRN Or glucagon 1 mg injection 1 mg INTRAMUSCULAR PRN Or dextrose 10% iv bolus 12.5 g INTRAVENOUS PRN insulin lispro injection (rapid acting) (ADMElog) SUBCUTANEOUS q 6 H ergocalciferol (vitamin D2) 50,000 Units cap(s) (DRISDOL) 50,000 Units ORAL 1/WK Followed by [START ON 02/27/2024] cholecalciferol 1,000 Units tab(s) (VITAMIN D3) 1,000 Units ORAL DAILY acetaminophen 975 mg tab(s) (TYLENOL) 975 mg ORAL/FEEDING TUBE QID gabapentin 100 mg cap(s) (NEURONTIN) 100 mg ORAL/FEEDING TUBE TID vitamin with folic acid 1 mg 1 tablet 1 tablet ORAL DAILY senna-docusate 8.6-50 mg 1 tablet (SENNA-S) 1 tablet ORAL/FEEDING TUBE BID oxyCODONE IR 5-10 mg tab(s) (ROXICODONE) 5-10 mg ORAL/FEEDING TUBE q 6 H PRN methocarbamol 500 mg tab(s) (ROBAXIN) 500 mg ORAL/FEEDING TUBE TID heparin 5,000 Units injection 5,000 Units SUBCUTANEOUS q 8 H Objective VITAL SIGNS BP 176/95 Pulse 122 Temp (Src) 97.5 (Temporal) Resp 23 Ht 6' 1 (1.85m) Wt 232 lb 5.8 oz (105.4kg) SpO2 93% BMI 30.66 kg/(m2). O2 Therapy: Room Air Temp (24hrs), Av.4 ?C (97.5 ?F), Min:36.4 ?C (97.5 ?F), Max:36.4 ?C (97.5 ?F) Date 01/04/24 07 - 01/05/2459 01/05/24 0700 - 01/06/24 0659 Shift 8472-2251 6822-7474 6967-4241 24 Hour Total 5769-4873 8755-8251 7700-2456 24 Hour Total INTAKE PO 356 298 202 3485 PO 356 549 068 6418 IV 450 205 100 755 IV Volume (ml) 205 205 Volume (mL) (sodium phosphate 45 mmol in D5W 250 mL) 250 250 Volume (mL) (calcium gluconate iv piggyback 2 g in NaCl (iso-osmotic) 100 mL) 200 100 300 Shift Total 806 398 238 5183 OUTPUT Urine 1875 1325 2500 5700 Void (ml) 1875 1325 3200 Output ( External Collection Device 01/04/241999 [facility]) 2500 2500 Tubes 75 50 75 200 Drain/Tube Output (Drain/Tube 01/01/242124 [facility] Hemovac Posterior Neck) 75 50 75 200 # of BMs Number of BMs 0 x 0 x 0 x Shift Total 1950 1375 2575 5900 Weight (kg) 107.8 107.8 105.4 105.4 105.4 105.4 105.4 105.4 PHYSICAL EXAM: GENERAL: Alert. No distress. Resting comfortably. NEURO: AANDOx3. No focal neurologic deficits. Sensation and motor grossly intact. HEENT: Normocephalic. Healing abrasions and ecchymosis on head EOMI. C - collar in place. Drain with SS output LUNGS: Unlabored breathing. Equal excursion bilaterally. CARDIAC: Regular rate, on tele, Good perfusion throughout. ABDOMEN: Soft, non-tender, non-distended. No rebound or guarding. EXTREMITIES: [place]. No deformities. SKIN: No obvious jaundice or pallor. Multiple healing bruises and abrasions on extremities and head DATA: Diagnostic tests reviewed for today's visit: No results for input(s): BODSITE, CTYPE, PH, PCO2, PO2, BE, HCO3, CO2CT, O2HB, COHB, MHGB, TEMP, PHTC, PCO2T, PO2T, O2AD in the last 72 hours. Recent Labs 01/05/24 0257 01/04/24 0352 01/03/24 0401 CREAT 0.80 0.84 0.93 BUN 8* 9 12 NA 139 135* 134* K 4.0 3.9 3.9 CHLOR 103 100 103 CO2 28 27 24 ANION 8 8 7* GLUC 104* 112* 98 CA 8.7 8.3* 7.9* P 2.7 2.9 3.3 MG 2.2 1.8 2.2 WBC 7.71 8.42 12.20* HB 10.2* 9.9* 9.3* HCT 32.2* 31.1* 28.7* PLT 272 230 192 Assessment AND Plan ACTIVE PROBLEM LIST Hyperlipidemia With Target Ldl Less Than 100 Esophageal Reflux Personal History of Other Malignant Neoplasm of Skin Bph With Obstruction/Lower Urinary Tract Sympt (more content not included)... Normal [facility] CONSULT PROG HNO ID: [id number] Author: MARGY RODRIGUEZ APRN.TABLEMAN Service: Neurosurgery Author Type: Nurse Practitioner Type: Consult Progress Note Filed: 01/05/2024 06:28 Note Text: Neurosurgery Progress Note SERVICE DATE: 01/05/2024 SUBJECTIVE: Patient awake most of the night, though denies any complaints. Remains with proximal arm weakness bilaterally. Denies numbness. Maintaining MAPs >85 without pressors. OBJECTIVE: Vitals: Temp (24hrs), Av.7 ?C (98.1 ?F), Min:36.4 ?C (97.5 ?F), Max:37 ?C (98.6 ?F) BP 167/89 Pulse 106 Temp 36.4 ?C (97.5 ?F) (Temporal) Resp 29 Ht 185.4 cm (6' 1) Wt 107.8 kg (237 lb 10.5 oz) SpO2 94% BMI 31.35 kg/m? O2 Therapy: Room Air IANDO: Date 01/04/24699 - 01/05/24 0601/05/24699 - 01/06/24 0659 Shift 9363-2648 5662-4967 0261-3412 24 Hour Total 2254-4021 8863-1974 8925-4252 24 Hour Total INTAKE PO 200 500 8045 PO 390 550 4570 IV 450 205 655 IV Volume (ml) 205 205 Volume (mL) (sodium phosphate 45 mmol in D5W 250 mL) 250 250 Volume (mL) (calcium gluconate iv piggyback 2 g in NaCl (iso-osmotic) 100 mL) 200 200 Shift Total 759 017 3424 OUTPUT Urine 1875 1325 1000 4200 Void (ml) 1875 1325 3200 Output ( External Collection Device 01/04/241999 [facility]) 1000 1000 Tubes 75 50 50 175 Drain/Tube Output (Drain/Tube 01/01/242124 [facility] Hemovac Posterior Neck) 75 50 50 175 # of BMs Number of BMs 0 x 0 x Shift Total 1950 1375 1050 4375 Weight (kg) 107.8 107.8 107.8 107.8 107.8 107.8 107.8 107.8 MEDICATIONS Current Facility-Administere d Medications Medication Dose Route Frequency heparin 5,000 Units injection 5,000 Units SUBCUTANEOUS q 8 H fentaNYL 50 mcg/mL 25 mcg injection (SUBLIMAZE) 25 mcg INTRAVENOUS q 2 H PRN dextrose 15 gram/32 mL 15 g (TRUEPLUS) 15 g ORAL PRN Or glucagon 1 mg injection 1 mg INTRAMUSCULAR PRN Or dextrose 10% iv bolus 12.5 g INTRAVENOUS PRN insulin lispro injection (rapid acting) (ADMElog) SUBCUTANEOUS q 6 H ergocalciferol (vitamin D2) 50,000 Units cap(s) (DRISDOL) 50,000 Units ORAL 1/WK acetaminophen 975 mg tab(s) (TYLENOL) 975 mg ORAL/FEEDING TUBE QID gabapentin 100 mg cap(s) (NEURONTIN) 100 mg ORAL/FEEDING TUBE TID vitamin with folic acid 1 mg 1 tablet 1 tablet ORAL DAILY senna-docusate 8.6-50 mg 1 tablet (SENNA-S) 1 tablet ORAL/FEEDING TUBE BID oxyCODONE IR 5-10 mg tab(s) (ROXICODONE) 5-10 mg ORAL/FEEDING TUBE q 6 H PRN methocarbamol 500 mg tab(s) (ROBAXIN) 500 mg ORAL/FEEDING TUBE TID NaCl 0.9% iv flush bag 20 mL INTRAVENOUS PRN sodium chloride 0.9 % (flush) 2-10 mL (BD POSIFLUSH) 2-10 mL INTRAVENOUS DIRECTED PRN thiamine 100 mg tab(s) (VITAMIN B1) 100 mg ORAL/FEEDING TUBE TID potassium chloride 20-40 mEq oral powder (KLOR-CON) 20-40 mEq ORAL/FEEDING TUBE PRN Or potassium chloride iv piggyback 20 mEq/100 mL 20 mEq INTRAVENOUS PRN sodium phosphate 30 mmol in D5W 250 mL 30 mmol INTRAVENOUS PRN(NO DISPENSE) Or sodium phosphate 45 mmol in D5W 250 mL 45 mmol INTRAVENOUS PRN(NO DISPENSE) magnesium sulfate iv piggyback in sterile water 2 g 50 mL 2 g INTRAVENOUS PRN calcium gluconate iv piggyback 2 g in NaCl (iso-osmotic) 100 mL 2 g INTRAVENOUS PRN(NO DISPENSE) ondansetron (PF) 4 mg injection (ZOFRAN) 4 mg INTRAVENOUS q 6 H PRN pantoprazole 20 mg oral liquid (PROTONIX) 20 mg ORAL/FEEDING TUBE DAILY (6 AM) Labs: Recent Labs 01/05/24 0257 01/04/24 0352 NA 139 135* K 4.0 3.9 CHLOR 103 100 CO2 28 27 BUN 8* 9 CREAT 0.80 0.84 GLUC 104* 112* ANION 8 8 CA 8.7 8.3* MG 2.2 1.8 P 2.7 2.9 WBC 7.71 8.42 HB 10.2* 9.9* HCT 32.2* 31.1* PLT 272 230 Exam: GENERAL: Awake and alert; NAD; cooperative; pleasant NEURO: Orientedx3; speech clear and fluent; SILT RUE 2/5 shoulder, 5/5 distally; LUE 2/5 shoulder, 2+ bicep, 4+ tricep, 5/5 wrist, 5/5 clerk secretary. 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 -Activity: WBAT; C-collar at all times, [place] J -Continue MAP goals >85 through POD# 5 -NIL recs ASA 81 when able and repeat CTA H/N in 8-10 weeks for L vert dissection. Okay for ASA POD# 7 -DVT ppx: subq Heparin; SCDs -Dispo: awaiting P (more content not included)... Normal [facility] Calcium.ionized [Moles/Vol]o n 01-05-2024 Calcium.ionized (BldV) [Mass/Vol] 1.16 mmol/L Normal 1.08-1.30 [facility] Comment on above: Order Comment: Clementina zavala Type: BLOOD SPECIMENOrdering Facility: [facility] Address: [address] [place] [address] Performed By: #### 1 995-0 ####[facility] [id number] [address] [place] Calcium.ionized adjusted to pH 7.4 (Bld) [Moles/Vol] 1.17 mmol/L Normal 1.08-1.30 [facility] Comment on above: Order Comment: Clementina zavala Type: BLOOD SPECIMENOrdering Facility: [facility] Address: [address] [place] [address] Performed By: #### 1 995-0 ####[facility] LABORATORYCLIA [id number] [place] [address] [place] Magnesium SerPl-mCncon 01-04 Magnesium [Mass/Vol] 2.2 mg/dL Normal 1.7-2.3 [facility] Comment on above: Order Comment: Clementina zavala Type: BLOOD SPECIMENOrdering Facility: [facility] Address: [address] [place] [address] Performed By: #### 2 777-1, 43036-0, 99381-3 ####[facility] LABORATORYCLIA [id number] [place] [address] [place] Phosphate SerPl-mCncon 01-04 Phosphate [Mass/Vol] 2.7 mg/dL Normal 2.7-4.8 [facility] Comment on above: Order Comment: Speci men Type: BLOOD SPECIMENOrdering Facility: [facility] Address: [address] [id number] Performed By: #### 2 777-1, 44120-1, 08864-5 ####[facility] LABORATORYCLIA [id number] [place] [address] [facility] THERAPY NTon 01-05-2024 THERAPY NT HNO ID: [id number] Author: HI PRIETO, OTR/L Service: Occupational Therapy Author Type: Occupational Therapist Type: Therapy (PT/OT/Speech/Resp) Filed: 01/05/2024 10:27 Note Text: Occupational Therapy Treatment Summary SERVICE DATE: 01/05/2024 SERVICE TIME: 0941 to 1006 ROOM: [place] [address] OT 6 Clicks Score: 10 DISCHARGE RECOMMENDATIONS Acute Rehab Recommended Discharge Disposition Comments: Patient was I prior to his fall and is now demonstrating decreased UE MMT and balance issues that impact his ability to return to home. He will benefit from intense 3hr day program so he may return to his prior level of I function. Recommended Discharge Disposition Due to: Patient requires active, intensive rehabilitation by multiple therapy disciplines. Anticipate the patient will tolerate 3 hours of therapy per day., Functional deficits requiring ongoing therapy service prior to discharge home., ADL impairment, Anticipated community discharge, Coordination deficits, Dominant side deficits, Weakness less than 3/5 in upper extremity ASSESSMENT Response to Therapy Interventions: Good Participation in Activities, Needs Frequent Redirection or Reinstruction Pt out of bed in chair upon OT arrival. Agreeable to ADL session while in chair. Significant weakness in BUE limiting pt's ability to complete grooming tasks, requires physical assistance and cues from OT to complete. Pt with encouragement does assist in using BUEs. Discussed with pt importance of using BUEs and assisting in completing ADLs while in-house. Transferred to bed x2 assist for safety, pt impulsive but redirectable with max cues. Goals ongoing, pt remains appropriate for AR discharge. PRECAUTIONS Spine C collar on AAT CURRENT HOSPITAL COURSE Patient admitted after fall at home. Patient reports that he blacked out. Patient underwent C3-6 PCDF with [place] collar on AAT. And following injuries: Distal radius fx (likely chronic) Relevant Past Medical History: AAA, DVT, HTN HOME LIVING Patient Lives With: Self/Alone Assistance Available: PRN (has sons who live near by) Entry To Home: Stairs, With Rail Number Of Stairs Into Home: 2 Number Of Stairs To Bed/Bath: 0 Tub/Shower Type: walk in shower with seat Laundry: in basement Equipment Owned: Walker- Wheeled PRIOR FUNCTIONAL LEVEL Within Functional Limits Patient reports that he was I with all his care at baseline Baseline Cognition: Oriented to self, Oriented to place, Oriented to time, Oriented to situation SUBJECTIVE I can't do it re: AROM in UE COGNITION Responsiveness: Alert, Awake Follows Commands: 1-step Commands, With Increased Time, With Repetition Attention Deficits: Redirected with Cues Executive Function Deficits: Judgement, Insight to Deficits, Problem Solving, Motor Planning, Safety Awareness 4AT Score: 0 (01/05/24) Delirium Positive/Negative: Negative (01/05/24) THERAPY DIAGNOSIS Reduced mobility-other, Decreased activities of daily living (ADL), Muscle Weakness (generalized), Unsteadiness on feet, General symptoms and signs-other, Lack of coordination-other TREATMENT INTERVENTIONS Self Assisted Management (61843) Timed Code Treatment (minutes): 25 Skilled Treatment Time (minutes): 25 Self Assisted Management (54897) Treatment Minutes: 25 $ Self Assisted Management (09816) Billed Units: 2 units TRAINING AND EDUCATION PROVIDED Activity Adaptation/Compensat ory Strategies, Transfer - Sit to Stand, Transfer - Bed to Chair, Standing Balance to Improve [place] with ADLs/Self-Care, Sitting Balance to Improve [place] with ADLs/Self-Care, Safety/Judgment, Role of Occupational Therapy, Precautions/Restrict ions, Memory/Attention, Insight into Deficits, Grooming Tasks, Fine Motor Coordination, Exercise Program, Bed Mobility, Benefits of In-Hospital Mobility, Cognitive Skills, Command Following THERAPEUTIC SKILLS USED Activity Dosing, Assessment of Tolerance Including Vitals Response to Activity, Therapeutic Use of Self, Teach-Back for Education, Repetitive Task Learning, Physical Assist, Muscle Activation Facilitation, Movement Facilitation, Management of Critical Lines, Tubes and/or Drains, Facilitation of Joint Range of Motion, Cues for Sequencing/Proper Technique for Activity, Cuing Verbal, Behavioral Strategies FUNCTIONAL STATUS Activities of Daily Living Assist Level Additional Information Feeding Maximal Assistance Grooming Maximal Assistance, Additional Information Rinsed mouth out with mouthwash, used bigger cup with limited mouthwash in d/t strength deficits. Hand over hand to bring cup to mouth in R hand, then hand over hand bringing basin to mouth with both hands. Pt able to assist with activity but requires assistance beause of weakness. Bathing Upper Body Maximal Assistance Bathing Lower Body Total Assistance Dressing Upper Body Maximal Assistance Dressing Lower Body Total Assistan (more content not included)... Normal [facility] THERAPY NT HNO ID: [id number] Author: KATE DOOLEY, PT Service: Physical Therapy Author Type: Physical Therapist Type: Therapy (PT/OT/Speech/Resp) Filed: 01/05/2024 10:18 Note Text: Physical Therapy Evaluation Summary SERVICE DATE: 01/05/2024 SERVICE TIME: 855 to 918 ROOM: [place] [address] PT 6 Clicks Score: 11 DISCHARGE RECOMMENDATIONS Acute Rehab Recommended Discharge Disposition Comments: patient not at functional baseline now with new central cord syndrome Recommended Discharge Disposition Due to: Patient requires active, intensive rehabilitation by multiple therapy disciplines. Anticipate the patient will tolerate 3 hours of therapy per day., Balance deficits, Requires multiple therapy disciplines, Functional status decline ASSESSMENT Response to Therapy Interventions: Good Participation in Activities PRECAUTIONS Spine C collar on AAT CURRENT HOSPITAL COURSE Patient admitted after fall at home. Patient reports that he blacked out. Patient underwent C3-6 PCDF with [place] collar on AAT. And following injuries: Distal radius fx (likely chronic) Relevant Past Medical History: AAA, DVT, HTN HOME LIVING Patient Lives With: Self/Alone Assistance Available: PRN (has sons who live near by) Entry To Home: Stairs, With Rail Number Of Stairs Into Home: 2 Number Of Stairs To Bed/Bath: 0 Tub/Shower Type: walk in shower with seat Laundry: in basement Equipment Owned: Walker- Wheeled PRIOR FUNCTIONAL LEVEL Within Functional Limits Patient reports that he was I with all his care at baseline SUBJECTIVE Agreeable to PT session THERAPY DIAGNOSIS Reduced mobility-other TREATMENT INTERVENTIONS Evaluation, Therapeutic Activity (50139) $ Evaluation-Moderate (44150) Billed Units: 1 unit Therapeutic Activity (39808) Treatment Minutes: 8 $ Therapeutic Activity (88456) Billed Units: 1 unit Cues for tansfers and mobility noted in grid. Education provided about spinal precautions and importance of continued OOB mobility while in the hospital. Timed Code Treatment (minutes): 8 Skilled Treatment Time (minutes): 23 TRAINING AND EDUCATION PROVIDED Assistive Device Use, Bed Mobility, Benefits of In-Hospital Mobility, Discharge Planning, Disease Specific Education, Expected Functional Level, Gait Pattern, Reduction of Deviations, Precautions/Restrict ions, Pre-gait Activities, Role of Physical Therapy, Sitting Balance, Standing Balance, Transfers THERAPEUTIC SKILLS USED Cues for Sequencing/Proper Technique for Activity, Cuing Tactile, Cuing Verbal, Cuing Visual, Movement Facilitation, Muscle Activation Facilitation, Physical Assist, Postural Alignment Correction FUNCTIONAL STATUS Bed Mobility Supine To Sit: Moderate Assistance, Additional Information Cues to spring bender his knees and to roll onto side, PT assisted to reach across body Sit to Supine: Moderate Assistance, Additional Information Cues to push up from the bed to get to sitting position. PT assisted to get trunk to upright sitting. Transfers Sit To Stand: Moderate Assistance, Additional Information Cues to come to standing and to stand tall, initially dizzy/lightheaded, BP taken 106/64. Cues for deep breath. Stand To Sit: Moderate Assistance, Additional Information Cues to make sure legs are touching the bed/chair prior to sitting. Instructed patient to reach back and sit slowly Bed to Chair Moderate Assistance, Additional Information Bed To Chair Transfer Type: Stepping Bed To Chair Transfer Equipment: Gait Belt Provided assistance at the gait belt for balance and support. Cues to get fully to the chair. Gait Stairs ROM WFL STRENGTH Strength Limitation Comments: BLEs 5/5, L should flexion 1/5, R shoulder flexion 1/5 L clerk secretary 3/5, R clerk secretary 3/5 BALANCE Static Sitting Balance: Good Dynamic Sitting Balance: Good Static Standing Balance: Fair Dynamic Standing Balance: Poor GOALS Able to Perform HEP with: Contact Guard Assistance Rolling with: Contact Guard Assistance Transfer Supine to/from Sit with: Contact Guard Assistance Transfer Sit to/from Stand with: Contact Guard Assistance Ambulate with: Contact Guard Assistance Distance: 10ft Device: Hand Held Assist Transfer: complete bed to chair transfer with handheld assistance Rehab Potential: Good PLAN PT Frequency: 6 Times Per Week (2-6) Treatment Interventions: Education, Strengthening, Functional Mobility Training, Balance Training, Neuromuscular Re-education SIGNATURE: Kate Dooley PT PATIENT NAME: Vicki Randle DATE: January 05, 2024 TIME: 10:17 AM Normal [facility] Basic metabolic 2000 panelon 01-04-2024 Anion gap [Moles/Vol] 8 mmol/L Normal 8-15 [facility] Comment on above: Order Comment: Speci men Type: BLOOD SPECIMENOrdering Facility: [facility] Address: [address] [place] [address] Performed By: #### 2 777-1, 88724-4, ####[facility] LABORATORYCLIA [id number] [place] [address] [place] Calcium [Mass/Vol] 8.3 mg/dL Low 8.5-10.2 [facility] Comment on above: Order Comment: Speci men Type: BLOOD SPECIMENOrdering Facility: [facility] Address: [address] [place] [address] Performed By: #### 2 777-1, 98760-9, ####[facility] LABORATORYCLIA [id number] [place] [address] [place] Chloride [Moles/Vol] 100 mmol/L Normal 98-107 [facility] Comment on above: Order Comment: Speci men Type: BLOOD SPECIMENOrdering Facility: [facility] Address: [address] [place] [address] Performed By: #### 2 777-1, 04436-6, ####[facility] LABORATORYCLIA [id number] [place] [address] [place] CO2 [Moles/Vol] 27 mmol/L Normal 22-30 [facility] Comment on above: Order Comment: Speci men Type: BLOOD SPECIMENOrdering Facility: [facility] Address: [address] [place] [address] Performed By: #### 2 777-1, 58481-8, ####[facility] LABORATORYCLIA [id number] [place] [address] [place] Creatinine [Mass/Vol] 0.84 mg/dL Normal 0.73-1.22 [facility] Comment on above: Order Comment: Clementina zavala Type: BLOOD SPECIMENOrdering Facility: [facility] Address: [address] [place] [address] Performed By: #### 2 777-1, 83389-9, ####[facility] LABORATORYCLIA [id number] [place] [id number] [place] Creatinine and Glomerular filtration rate.predicted panel (S/P/Bld) 89 mL/min/1.73m??? Normal >=60 [facility] Comment on above: Order Comment: Clementina zavala Type: BLOOD SPECIMENOrdering Facility: [facility] Address: [address] [place] [address] Result Comment: Beatrice mated Glomerular Filtration Rate (eGFR) is calculated using the 2020 CKD-EPI creatinine equation. This equation utilizes serum creatinine, sex, and age as parameters. The creatinine assay has traceable calibration to isotope dilution-mass spectrometry. Refer to KDIGO guidelines for clinical interpretation. In patients with unstable renal function, e.g. those with acute kidney injury, the eGFR may not accurately reflect actual GFR. Performed By: #### 2 777-1, 38099-0, ####[facility] LABORATORYCLIA [id number] [place] [address] [place] Glucose [Mass/Vol] 112 mg/dL High 74-99 [facility] Comment on above: Order Comment: Clementina zavala Type: BLOOD SPECIMENOrdering Facility: [facility] Address: [address] [place] [address] Result Comment: The [place] Diabetes Association (ADA) provides guidance for cutoff values for fasting glucose and random glucose. The ADA defines fasting as no caloric intake for at least 8 hours. Fasting plasma glucose results between 100 to 125 [...] Standards of Medical Care in Diabetes 2016, [place] [employer] Association. Diabetes Care. 2016.39(Suppl 1). Performed By: #### 2 777-1, 98407-4, ####[facility] LABORATORYCLIA [id number] [place] [address] [place] Potassium [Moles/Vol] 3.9 mmol/L Normal 3.7-5.1 [facility] Comment on above: Order Comment: Speci men Type: BLOOD SPECIMENOrdering Facility: [facility] Address: [address] [place] [address] Performed By: #### 2 777-1, 37296-5, ####[facility] LABORATORYCLIA [id number] [address] STATES OF [facility] Sodium [Moles/Vol] 135 mmol/L Low 136-144 [facility] Comment on above: Order Comment: Speci men Type: BLOOD SPECIMENOrdering Facility: [facility] Address: [address] [place] [address] Performed By: #### 2 777-1, 37393-8, ####[facility] LABORATORYCLIA [id number] [address] [place] Urea nitrogen [Mass/Vol] 9 mg/dL Normal 9-24 [facility] Comment on above: Order Comment: Speci men Type: BLOOD SPECIMENOrdering Facility: [facility] Address: [address] [place] [address] Performed By: #### 2 777-1, 04609-8, ####[facility]ORATORYCLIA [id number] [place] [place] [address] [place] CBC panel Auto (Bld)on 01-03 Erythrocyte distribution width (RBC) [Ratio] 15.1 % High 11.5-15.0 [facility] Comment on above: Order Comment: Speci men Type: BLOOD SPECIMENOrdering Facility: [facility] Address: [address] [place] [address] Performed By: #### 5 8410-2 ####[facility]ATORYCLIA [id number] [address] [place] Hematocrit (Bld) [Volume fraction] 31.1 % Low 39.0-51.0 [facility] Comment on above: Order Comment: Speci men Type: BLOOD SPECIMENOrdering Facility: [facility] Address: [address] [place] [address] Performed By: #### 5 8410-2 ####[facility]ATORYCLIA [id number] [address] [place] Hemoglobin (Bld) [Mass/Vol] 9.9 g/dL Low 13.0-17.0 [facility] Comment on above: Order Comment: Speci men Type: BLOOD SPECIMENOrdering Facility: [facility] Address: [address] [place] [address] Performed By: #### 5 8410-2 ####[facility]ATORYCLIA [id number] [address] STATES [facility] MCH (RBC) [Entitic mass] 27.8 pg Normal 26.0-34.0 [facility] Comment on above: Order Comment: Speci men Type: BLOOD SPECIMENOrdering Facility: [facility] Address: [address] [place] [address] Performed By: #### 5 8410-2 ####[facility]ORYCLIA [id number] [address] [place] MCHC (RBC) [Mass/Vol] 31.8 g/dL Normal 30.5-36.0 [facility] Comment on above: Order Comment: Speci men Type: BLOOD SPECIMENOrdering Facility: [facility] Address: [address] [place] [address] Performed By: #### 5 8410-2 ####[facility]ORYCLIA [id number] [address] OF [facility] MCV (RBC) [Entitic vol] 87.4 fL Normal 80.0-100.0 [facility] Comment on above: Order Comment: Speci men Type: BLOOD SPECIMENOrdering Facility: [facility] Address: [address] [place] [address] Performed By: #### 5 8410-2 ####[facility]ORYCLIA [id number] [address] Nucleated RBC (Bld) [#/Vol] 10*3/uL Normal <0.01 [facility] Comment on above: Order Comment: Speci men Type: BLOOD SPECIMENOrdering Facility: [facility] Address: [address] [place] [address] Performed By: #### 5 8410-2 ####[facility]ORYCLIA [id number] [address] [place] Platelet mean volume (Bld) [Entitic vol] 9.3 fL Normal 9.0-12.7 [facility] Comment on above: Order Comment: Speci men Type: BLOOD SPECIMENOrdering Facility: [facility] Address: [address] [place] [address] Performed By: #### 5 8410-2 ####[facility]ORYCLIA [id number] [address] [place] Platelets (Bld) [#/Vol] 230 10*3/uL Normal 150-400 [facility] Comment on above: Order Comment: Speci men Type: BLOOD SPECIMENOrdering Facility: [facility] Address: [address] [place] [address] Performed By: #### 5 8410-2 ####[facility]ORYCLIA [id number] [address] [place] RBC (Bld) [#/Vol] 3.56 10*6/uL Low 4.20-6.00 [facility] Comment on above: Order Comment: Speci men Type: BLOOD SPECIMENOrdering Facility: [facility] Address: [address] [place] [address] Performed By: #### 5 8410-2 ####[facility]ATORYCLIA [id number] [place] [address] [place] WBC (Bld) [#/Vol] 8.42 10*3/uL Normal 3.70-11.00 [facility] Comment on above: Order Comment: Speci men Type: BLOOD SPECIMENOrdering Facility: [facility] Address: [address] [place] [address] Performed By: #### 5 8410-2 ####[facility]ATORYCLIA [id number] [place] [address] [facility] CONSULT PROGon 01-04-2024 CONSULT PROG HNO ID: [id number] Author: BERTA KAUR MD Service: General Surgery Author Type: Physician Type: Consult Progress Note Filed: 01/04/2024 08:54 Note Text: INPATIENT SICU PROGRESS NOTE SERVICE DATE: 01/04/2024 SERVICE TIME: 7:02 AM Subjective Patient seen and examined this morning, pt sitting in chair watching TV comfortably. States that he is not doing well today but denies any pain. States day is not going well today. Nurse states that pt has been more agitated last night through to this morning. Pt did not work with PT/OT yesterday as he said he was having a bad day and didn't want to do all that. Has been tolerating diet w/o n/v. With bowel function. Current Facility-Administere d Medications Medication Dose Route Frequency NaCl 0.9% iv flush bag 20 mL INTRAVENOUS PRN sodium chloride 0.9 % (flush) 2-10 mL (BD POSIFLUSH) 2-10 mL INTRAVENOUS DIRECTED PRN thiamine 100 mg tab(s) (VITAMIN B1) 100 mg ORAL/FEEDING TUBE TID potassium chloride 20-40 mEq oral powder (KLOR-CON) 20-40 mEq ORAL/FEEDING TUBE PRN Or potassium chloride iv piggyback 20 mEq/100 mL 20 mEq INTRAVENOUS PRN sodium phosphate 30 mmol in D5W 250 mL 30 mmol INTRAVENOUS PRN(NO DISPENSE) Or sodium phosphate 45 mmol in D5W 250 mL 45 mmol INTRAVENOUS PRN(NO DISPENSE) magnesium sulfate iv piggyback in sterile water 2 g 50 mL 2 g INTRAVENOUS PRN calcium gluconate iv piggyback 2 g in NaCl (iso-osmotic) 100 mL 2 g INTRAVENOUS PRN(NO DISPENSE) ondansetron (PF) 4 mg injection (ZOFRAN) 4 mg INTRAVENOUS q 6 H PRN pantoprazole 20 mg oral liquid (PROTONIX) 20 mg ORAL/FEEDING TUBE DAILY (6 AM) fentaNYL 50 mcg/mL 25 mcg injection (SUBLIMAZE) 25 mcg INTRAVENOUS q 2 H PRN dextrose 15 gram/32 mL 15 g (TRUEPLUS) 15 g ORAL PRN Or glucagon 1 mg injection 1 mg INTRAMUSCULAR PRN Or dextrose 10% iv bolus 12.5 g INTRAVENOUS PRN insulin lispro injection (rapid acting) (ADMElog) SUBCUTANEOUS q 6 H ergocalciferol (vitamin D2) 50,000 Units cap(s) (DRISDOL) 50,000 Units ORAL 1/WK Followed by [START ON 02/27/2024] cholecalciferol 1,000 Units tab(s) (VITAMIN D3) 1,000 Units ORAL DAILY acetaminophen 975 mg tab(s) (TYLENOL) 975 mg ORAL/FEEDING TUBE QID gabapentin 100 mg cap(s) (NEURONTIN) 100 mg ORAL/FEEDING TUBE TID vitamin with folic acid 1 mg 1 tablet 1 tablet ORAL DAILY senna-docusate 8.6-50 mg 1 tablet (SENNA-S) 1 tablet ORAL/FEEDING TUBE BID oxyCODONE IR 5-10 mg tab(s) (ROXICODONE) 5-10 mg ORAL/FEEDING TUBE q 6 H PRN methocarbamol 500 mg tab(s) (ROBAXIN) 500 mg ORAL/FEEDING TUBE TID pseudoephedrine 60 mg (SUDAFED) 60 mg ORAL q 6 H heparin 5,000 Units injection 5,000 Units SUBCUTANEOUS q 8 H Objective VITAL SIGNS BP 144/87 Pulse 100 Temp (Src) 98.6 (Oral) Resp 15 Ht 6' 1 (1.85m) Wt 250 lb 3.6 oz (113.5kg) SpO2 93% BMI 33.02 kg/(m2). O2 Therapy: Nasal Cannula, Liters: 2 Temp (24hrs), Av.7 ?C (98.1 ?F), Min:36.5 ?C (97.7 ?F), Max:37 ?C (98.6 ?F) Date 01/03/24 07 - 01/04/24 0659 01/04/24 07 - 01/05/24 0659 Shift 1132-0187 6802-6771 8126-5576 24 Hour Total 3128-0980 3698-9136 9047-0113 24 Hour Total INTAKE PO 240 300 100 640 PO 240 300 100 640 IV 400 50 450 Volume (mL) (thiamine 200 mg in NaCl 0.9% 50 mL (VITAMIN B1)) 50 50 100 Volume (mL) (sodium phosphate 45 mmol in D5W 250 mL) 250 250 Volume (mL) (calcium gluconate iv piggyback 2 g in NaCl (iso-osmotic) 100 mL) 100 100 Shift Total 640 738 391 0076 OUTPUT Urine 738 388 2156 2725 Void (ml) 191 872 2252 2475 Amount Voided Before Bladder Scan 250 250 Urine Incontinence/Not Saved 1 x 1 x Tubes 50 100 150 300 Drain/Tube Output (Drain/Tube 01/01/24 2125 [facility] Hemovac Posterior Neck) 50 100 150 300 Shift Total 181 673 0577 3025 Weight (kg) 113.5 113.5 113.5 113.5 113.5 113.5 113.5 113.5 PHYSICAL EXAM: GENERAL: Alert. No distress. Resting comfortably. NEURO: AANDOx3. No focal neurologic deficits. Sensation and motor grossly intact. HEENT: Normocephalic. Healing abrasions and ecchymosis on head EOMI. C- collar in place. Drain with SS output LUNGS: Unlabored breathing. Equal excursion bilaterally. CARDIAC: Regular rate, on tele, Good perfusion throughout. ABDOMEN: Soft, non-tender, non-distended. No rebound or guarding. EXTREMITIES: [place]. No deformities. SKIN: No obvious jaundice or pallor. Multiple healing bruises and abrasions on extremities and head DATA: Diagnostic tests reviewed for today's visit: Recent Labs 01/02/24 0407 01/01/24 2100 01/01/249 01/01/241956 PH 7.39 -- -- -- PCO2 39 40.8 27.3* 32.9* PO2 176* 244* 240* 240* BE -- -2 -11* -6* HCO3 23 23.3 14.4* 19.5* O2HB 97 -- -- -- COHB 1.7 -- -- -- MHGB 0.6 -- -- -- PHTC 7.40 -- -- -- PCO2T 38 -- -- -- PO2T 174* -- -- -- O2AD 40 -- -- -- Recent Labs 01/04/24 0352 01/03/24 0401 01/02/24 0407 01/02/24 0206 CREAT 0.84 0.93 -- 0.86 BUN 9 12 -- 10 NA 135* 134* -- 138 K 3.9 3.9 -- 4.9 (more content not included)... Normal [facility] CONSULT PROG HNO ID: [id number] Author: MARGY RODRIGUEZ APRN.TABLEMAN Service: Neurosurgery Author Type: Nurse Practitioner Type: Consult Progress Note Filed: 01/04/2024 21:02 Note Text: Neurosurgery Progress Note SERVICE DATE: 01/04/2024 SUBJECTIVE: No reported issues overnight. Patient has been getting up to chair. Denies numbness to left arm. Continues to have left arm weakness, though does seem slightly improved on exam this morning. OBJECTIVE: Vitals: Temp (24hrs), Av.6 ?C (97.9 ?F), Min:36.5 ?C (97.7 ?F), Max:36.8 ?C (98.2 ?F) BP 163/88 Pulse 109 Temp 36.5 ?C (97.7 ?F) (Oral) Resp 23 Ht 185.4 cm (6' 1) Wt 113.5 kg (250 lb 3.6 oz) SpO2 98% BMI 33.01 kg/m? O2 Therapy: Nasal Cannula IANDO: Date 01/03/24699 - 01/04/2465801/04/24699 - 01/05/24 0659 Shift 1985-3216 4164-5322 6895-2519 24 Hour Total 9060-9813 7033-1820 4528-1273 24 Hour Total INTAKE PO 240 300 100 640 PO 240 300 100 640 IV 400 50 450 Volume (mL) (thiamine 200 mg in NaCl 0.9% 50 mL (VITAMIN B1)) 50 50 100 Volume (mL) (sodium phosphate 45 mmol in D5W 250 mL) 250 250 Volume (mL) (calcium gluconate iv piggyback 2 g in NaCl (iso-osmotic) 100 mL) 100 100 Shift Total 640 347 295 3052 OUTPUT Urine 090 343 5876 2475 Void (ml) 678 787 1302 2475 Urine Incontinence/Not Saved 1 x 1 x Tubes 50 100 70 220 Drain/Tube Output (Drain/Tube 01/01/24 2125 [facility] Hemovac Posterior Neck) 50 100 70 220 Shift Total 710 620 0018 2695 Weight (kg) 113.5 113.5 113.5 113.5 113.5 113.5 113.5 113.5 MEDICATIONS Current Facility-Administere d Medications Medication Dose Route Frequency heparin 5,000 Units injection 5,000 Units SUBCUTANEOUS q 8 H fentaNYL 50 mcg/mL 25 mcg injection (SUBLIMAZE) 25 mcg INTRAVENOUS q 2 H PRN dextrose 15 gram/32 mL 15 g (TRUEPLUS) 15 g ORAL PRN Or glucagon 1 mg injection 1 mg INTRAMUSCULAR PRN Or dextrose 10% iv bolus 12.5 g INTRAVENOUS PRN insulin lispro injection (rapid acting) (ADMElog) SUBCUTANEOUS q 6 H ergocalciferol (vitamin D2) 50,000 Units cap(s) (DRISDOL) 50,000 Units ORAL 1/WK acetaminophen 975 mg tab(s) (TYLENOL) 975 mg ORAL/FEEDING TUBE QID gabapentin 100 mg cap(s) (NEURONTIN) 100 mg ORAL/FEEDING TUBE TID vitamin with folic acid 1 mg 1 tablet 1 tablet ORAL DAILY senna-docusate 8.6-50 mg 1 tablet (SENNA-S) 1 tablet ORAL/FEEDING TUBE BID oxyCODONE IR 5-10 mg tab(s) (ROXICODONE) 5-10 mg ORAL/FEEDING TUBE q 6 H PRN methocarbamol 500 mg tab(s) (ROBAXIN) 500 mg ORAL/FEEDING TUBE TID pseudoephedrine 60 mg (SUDAFED) 60 mg ORAL q 6 H NaCl 0.9% iv flush bag 20 mL INTRAVENOUS PRN sodium chloride 0.9 % (flush) 2-10 mL (BD POSIFLUSH) 2-10 mL INTRAVENOUS DIRECTED PRN potassium chloride 20-40 mEq oral powder (KLOR-CON) 20-40 mEq ORAL/FEEDING TUBE PRN Or potassium chloride iv piggyback 20 mEq/100 mL 20 mEq INTRAVENOUS PRN sodium phosphate 30 mmol in D5W 250 mL 30 mmol INTRAVENOUS PRN(NO DISPENSE) Or sodium phosphate 45 mmol in D5W 250 mL 45 mmol INTRAVENOUS PRN(NO DISPENSE) magnesium sulfate iv piggyback in sterile water 2 g 50 mL 2 g INTRAVENOUS PRN calcium gluconate iv piggyback 2 g in NaCl (iso-osmotic) 100 mL 2 g INTRAVENOUS PRN(NO DISPENSE) ondansetron (PF) 4 mg injection (ZOFRAN) 4 mg INTRAVENOUS q 6 H PRN pantoprazole 20 mg oral liquid (PROTONIX) 20 mg ORAL/FEEDING TUBE DAILY (6 AM) Labs: Recent Labs 01/04/24 0352 01/03/24 0401 01/02/24 04001/02/24 0206 01/01/24 2100 01/01/24204801/01/24195601/01/24 0614 NA 135* 134* -- < > -- -- -- 137 K 3.9 3.9 -- < > -- -- -- 3.6* CHLOR 100 103 -- < > -- -- -- 100 CO2 27 24 -- < > -- -- -- 22 BUN 9 12 -- < > -- -- -- 7* CREAT 0.84 0.93 -- < > -- -- -- 1.00 GLUC 112* 98 -- < > -- -- -- 107* ANION 8 7* -- < > -- -- -- 15 CA 8.3* 7.9* -- < > -- -- -- 8.8 MG 1.8 2.2 -- < > -- -- -- -- P 2.9 3.3 -- < > -- -- -- -- ALB -- -- -- -- -- -- -- 3.5* AST -- -- -- -- -- -- -- 27 ALT -- -- -- -- -- -- -- 10 ALKPHOS -- -- -- -- -- -- -- 160* TBILI -- -- -- -- -- -- -- 0.2 WBC 8.42 12.20* -- < > -- -- -- 10.04 HB 9.9* 9.3* -- < > -- -- -- 10.8* HCT 31.1* 28.7* -- < > -- -- -- 35.5* PLT 230 192 -- < > -- -- -- 314 LACT -- -- 1.8 -- -- -- -- -- INR -- -- -- -- -- -- -- 0.9 PH -- -- 7.39 -- -- -- -- -- PCO2 -- -- 39 -- 40.8 27.3* < > -- PO2 -- -- 176* -- 244* 240* < > -- BE -- -- -- -- -2 -11* < > -- HCO3 -- -- 23 -- 23.3 14.4* < > -- < > = values in this interval not displayed. Exam: GENERAL: Awake and alert; NAD; cooperative; pleasant NEURO: Orientedx3; speech clear and fluent. Decreased sensation to L upper arm from shoulder to elbow. 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 Normal [facility] Calcium.ionized [Moles/Vol]o n 01-04-2024 Calcium.ionized (BldV) [Mass/Vol] 1.14 mmol/L Normal 1.08-1.30 [facility] Comment on above: Order Comment: Clementina men Type: BLOOD SPECIMENOrdering Facility: [facility] Address: [address] [place] [address] Performed By: #### 1 995-0 ####[facility]ORYCLIA [id number] [address] STATES OF [facility] Calcium.ionized adjusted to pH 7.4 (Bld) [Moles/Vol] 1.11 mmol/L Normal 1.08-1.30 [facility] Comment on above: Order Comment: Clementina zavala Type: BLOOD SPECIMENOrdering Facility: [facility] Address: [address] [place] [address] Performed By: #### 1 995-0 ####[facility]ATORYCLIA [id number] [place] [id number] [facility] Magnesium [Mass/Vol] 1.8 mg/dL Normal 1.7-2.3 [facility] Comment on above: Order Comment: Speci men Type: BLOOD SPECIMENOrdering Facility: [facility] Address: [address] [place] [address] Performed By: #### 2 777-1, 84804-3, ####[facility]ORYCLIA [id number] [address] Phosphate [facility] 01-03 Phosphate [Mass/Vol] 2.9 mg/dL Normal 2.7-4.8 [facility] Comment on above: Order Comment: Speci men Type: BLOOD SPECIMENOrdering Facility: [facility] Address: [address] [place] [address] Performed By: #### 2 777-1, 05276-6, ####[facility]ATORYIA [id number] [address] THERAPY NTon 01-04-2024 THERAPY NT HNO ID: [id number] Author: KHANG CHENG OT/Tracy Service: Occupational Therapy Author Type: Occupational Therapist Type: Therapy (PT/OT/Speech/Resp) Filed: 01/04/2024 16:21 Note Text: Occupational Therapy Evaluation Summary SERVICE DATE: 01/04/2024 SERVICE TIME: 1520 to 1550 ROOM: [place] [address] OT 6 Clicks Score: 12 DISCHARGE RECOMMENDATIONS Acute Rehab Recommended Discharge Disposition Comments: Patient was I prior to his fall and is now demonstrating decreased UE MMT and balance issues that impact his ability to return to home. He will benefit from intense 3hr day program so he may return to his prior level of I function. Recommended Discharge Disposition Due to: Patient requires active, intensive rehabilitation by multiple therapy disciplines. Anticipate the patient will tolerate 3 hours of therapy per day., Functional deficits requiring ongoing therapy service prior to discharge home., ADL impairment, Anticipated community discharge, Coordination deficits, Dominant side deficits, Weakness less than 3/5 in upper extremity ASSESSMENT Response to Therapy Interventions: Low Activity Tolerance, Needs Frequent Redirection or Reinstruction Patient seen seated in bedside chair in room and wanting to get back to bed. Patient with [place] collar and hemovac drain. Noted increased impulsivity requiring frequent re-direction. Patient is noted as below and will benefit from on going OT tx. PRECAUTIONS Spine C collar on AAT CURRENT HOSPITAL COURSE Patient admitted after fall at home. Patient reports that he blacked out. Patient underwent C3-6 PCDF with [place] collar on AAT. And following injuries: Distal radius fx (likely chronic) Relevant Past Medical History: AAA, DVT, HTN HOME LIVING Patient Lives With: Self/Alone Assistance Available: PRN (has sons who live near by) Entry To Home: Stairs, With Rail Number Of Stairs Into Home: 2 Number Of Stairs To Bed/Bath: 0 Tub/Shower Type: walk in shower with seat Laundry: in basement Equipment Owned: Walker- Wheeled PRIOR FUNCTIONAL LEVEL Within Functional Limits Patient reports that he was I with all his care at baseline Baseline Cognition: Oriented to self, Oriented to place, Oriented to time, Oriented to situation SUBJECTIVE Patient in chair wanting to get back to bed COGNITION Responsiveness: Alert, Agitated (impulsive needing re-direction) Follows Commands: 1-step Commands, With Repetition (due to impulsivity) Attention Deficits: Redirected with Cues Executive Function Deficits: Judgement, Insight to Deficits, Problem Solving, Motor Planning, Safety Awareness THERAPY DIAGNOSIS Reduced mobility-other, Decreased activities of daily living (ADL), Unsteadiness on feet, Abnormalities of gait and mobility-other, General symptoms and signs-other TREATMENT INTERVENTIONS Evaluation, Therapeutic Activity (68360) Timed Code Treatment (minutes): 15 Skilled Treatment Time (minutes): 30 TRAINING AND EDUCATION PROVIDED Activity Adaptation/Compensat ory Strategies, Assistive Device Use, Bed Mobility, Cognitive Skills, Command Following, Emotional Regulation, Functional Mobility Involving ADLs, Role of Occupational Therapy, Safety/Judgment, Transfer - Bed to Chair, Transfer - Sit to Stand THERAPEUTIC SKILLS USED Activity Dosing, Assessment of Tolerance Including Vitals Response to Activity, Cuing Tactile, Cuing Verbal, Cuing Visual, Movement Facilitation, Physical Assist, Therapeutic Use of Self FUNCTIONAL STATUS Activities of Daily Living Assist Level Additional Information Feeding Moderate Assistance Grooming Total Assistance Bathing Upper Body Maximal Assistance Bathing Lower Body Total Assistance Dressing Upper Body Maximal Assistance Dressing Lower Body Total Assistance Toileting Total Assistance Mobility Assist Level Additional Information Bed Mobility Sit To Supine: Moderate Assistance Needing cues for safety Sit to Stand Moderate Assistance, Additional Information to stand at rolling walker needing assistance to place bilateral hands on walker Stand to Sit Minimal Assistance, Additional Information with need for cues for safety due to impulsivity Bed to Chair Moderate Assistance Bed To Chair Transfer Type: Stepping Bed To Chair Transfer Equipment: Wheeled Walker Toilet/Commode Shower Functional Mobility Moderate Assistance Functional Mobility Device: Wheeled Walker $ Evaluation - Moderate (98309) Billed Units: 1 unit Therapeutic Activity (18809) Treatment Minutes: 15 $ Therapeutic Activity (95622) Billed Units: 1 unit ACTIVITY TOLERANCE Sitting Activity: UE assessment seated in bedside chair Sitting Activity Tolerance (in minutes): 30 Standing Activity: functional transfer Standing Activity Tolerance (in minutes): 2 BALANCE Static Sitting Balance: Good Dynamic Sitting Balance: Fair Static Standing Balance: Fair Dynamic Standing Balance: Poor Hand Dominance: Ri (more content not included)... Normal [facility] Basic metabolic 2000 panelon 01-03-2024 Anion gap [Moles/Vol] 7 mmol/L Low 8-15 [facility] Comment on above: Order Comment: Speci men Type: BLOOD SPECIMENOrdering Facility: [facility] Address: [address] [place] [address] Performed By: #### 2 4321-2, 05203-5, 2776-06 ####[facility]ATORYCLIA [id number] [place] [address] [place] Calcium [Mass/Vol] 7.9 mg/dL Low 8.5-10.2 [facility] Comment on above: Order Comment: Speci men Type: BLOOD SPECIMENOrdering Facility: [facility] Address: [address] [place] [address] Performed By: #### 2 4321-2, 10780-7, 277- ####[facility]ORATORYCLIA [id number] [place] [address] [place] Chloride [Moles/Vol] 103 mmol/L Normal 98-107 [facility] Comment on above: Order Comment: Speci men Type: BLOOD SPECIMENOrdering Facility: [facility] Address: [address] [place] [address] Performed By: #### 2 4321-2, , 2776-06 ####[facility]ORATORYCLIA [id number] [place] [id number] [place] CO2 [Moles/Vol] 24 mmol/L Normal 22-30 [facility] Comment on above: Order Comment: Speci men Type: BLOOD SPECIMENOrdering Facility: [facility] Address: [address] [place] [address] Performed By: #### 2 4321-2, , 2776-06 ####[facility]ENTERCLIA [id number] [address] STATES OF [facility] Creatinine [Mass/Vol] 0.93 mg/dL Normal 0.73-1.22 [facility] Comment on above: Order Comment: Speci men Type: BLOOD SPECIMENOrdering Facility: [facility] Address: [address] [place] [address] Performed By: #### 2 4321-2, , 2776-06 ####[facility]ATORYCLIA [id number] [address] Creatinine and Glomerular filtration rate.predicted panel (S/P/Bld) 84 mL/min/1.73m??? Normal >=60 [facility] Comment on above: Order Comment: Speci men Type: BLOOD SPECIMENOrdering Facility: [facility] Address: [address] [place] [address] Result Comment: Beatrice mated Glomerular Filtration Rate (eGFR) is calculated using the 2020 CKD-EPI creatinine equation. This equation utilizes serum creatinine, sex, and age as parameters. The creatinine assay has traceable calibration to isotope dilution-mass spectrometry. Refer to KDIGO guidelines for clinical interpretation. In patients with unstable renal function, e.g. those with acute kidney injury, the eGFR may not accurately reflect actual GFR. Performed By: #### 2 4321-2, 12838-22776-06 ####[facility]ORATORYCLIA [id number] [place] [address] [place] Glucose [Mass/Vol] 98 mg/dL Normal 74-99 [facility] Comment on above: Order Comment: Speci men Type: BLOOD SPECIMENOrdering Facility: [facility] Address: [address] [place] [address] Result Comment: The [place] Diabetes Association (ADA) provides guidance for cutoff values for fasting glucose and random glucose. The ADA defines fasting as no caloric intake for at least 8 hours. Fasting plasma glucose results between 100 to 125 [...] Standards of Medical Care in Diabetes 2016, [place] [employer] Association. Diabetes Care. 2016.39(Suppl 1). Performed By: #### 2 4321-2, , 2776-06 ####[facility]ATORYCLIA [id number] [place] [id number] [place] Potassium [Moles/Vol] 3.9 mmol/L Normal 3.7-5.1 [facility] Comment on above: Order Comment: Speci men Type: BLOOD SPECIMENOrdering Facility: [facility] Address: [address] [place] [address] Performed By: #### 2 4321-2, , 2776-06 ####[facility]ORATORYCLIA [id number] [place] [address] [place] Sodium [Moles/Vol] 134 mmol/L Low 136-144 [facility] Comment on above: Order Comment: Speci men Type: BLOOD SPECIMENOrdering Facility: [facility] Address: [address] [place], [place] [address] Performed By: #### 2 4321-2, , 2776-06 ####[facility]ORYCLIA [id number] [address] STATES OF [facility] Urea nitrogen [Mass/Vol] 12 mg/dL Normal 9-24 [facility] Comment on above: Order Comment: Speci men Type: BLOOD SPECIMENOrdering Facility: [facility] Address: [address] [place] [address] Performed By: #### 2 4321-2, 40671-7, 2777-1 ####[facility]ORYCLIA [id number] [address] OF [facility] CBC panel Auto (Bld)on 01-02 Erythrocyte distribution width (RBC) [Ratio] 15.3 % High 11.5-15.0 [facility] Comment on above: Order Comment: Speci men Type: BLOOD SPECIMENOrdering Facility: [facility] Address: [address] [place] [address] Performed By: #### 5 8410-2 ####[facility]ORYCLIA [id number] [address] STATES OF [facility] Hematocrit (Bld) [Volume fraction] 28.7 % Low 39.0-51.0 [facility] Comment on above: Order Comment: Speci men Type: BLOOD SPECIMENOrdering Facility: [facility] Address: [address] [place] [address] Performed By: #### 5 8410-2 ####[facility]ORYCLIA [id number] [address] [place] Hemoglobin (Bld) [Mass/Vol] 9.3 g/dL Low 13.0-17.0 [facility] Comment on above: Order Comment: Speci men Type: BLOOD SPECIMENOrdering Facility: [facility] Address: [address] [place] [address] Performed By: #### 5 8410-2 ####[facility]ORYCLIA [id number] [address] [place] MCH (RBC) [Entitic mass] 28.0 pg Normal 26.0-34.0 [facility] Comment on above: Order Comment: Speci men Type: BLOOD SPECIMENOrdering Facility: [facility] Address: [address] [place] [address] Performed By: #### 5 8410-2 ####[facility]ORYCLIA [id number] [address] MCHC (RBC) [Mass/Vol] 32.4 g/dL Normal 30.5-36.0 [facility] Comment on above: Order Comment: Speci men Type: BLOOD SPECIMENOrdering Facility: [facility] Address: [address] [place] [address] Performed By: #### 5 8410-2 ####[facility]ORYCLIA [id number] [address] MCV (RBC) [Entitic vol] 86.4 fL Normal 80.0-100.0 [facility] Comment on above: Order Comment: Speci men Type: BLOOD SPECIMENOrdering Facility: [facility] Address: [address] [place] [address] Performed By: #### 5 8410-2 ####[facility]ORYCLIA [id number] [address] Nucleated RBC (Bld) [#/Vol] 10*3/uL Normal <0.01 [facility] Comment on above: Order Comment: Speci men Type: BLOOD SPECIMENOrdering Facility: [facility] Address: [address] [place] [address] Performed By: #### 5 8410-2 ####[facility]ORYCLIA [id number] [address] Platelet mean volume (Bld) [Entitic vol] 9.5 fL Normal 9.0-12.7 [facility] Comment on above: Order Comment: Speci men Type: BLOOD SPECIMENOrdering Facility: [facility] Address: [address] [place] [address] Performed By: #### 5 8410-2 ####[facility]ORYCLIA [id number] [address] [place] Platelets (Bld) [#/Vol] 192 10*3/uL Normal 150-400 [facility] Comment on above: Order Comment: Speci men Type: BLOOD SPECIMENOrdering Facility: [facility] Address: [address] [place] [address] Performed By: #### 5 8410-2 ####[facility]ORYCLIA [id number] [address] OF [facility] RBC (Bld) [#/Vol] 3.32 10*6/uL Low 4.20-6.00 [facility] Comment on above: Order Comment: Speci men Type: BLOOD SPECIMENOrdering Facility: [facility] Address: [address] [place] [address] Performed By: #### 5 8410-2 ####[facility]ORYCLIA [id number] [address] WBC (Bld) [#/Vol] 12.20 10*3/uL High 3.70-11.00 [facility] Comment on above: Order Comment: Speci men Type: BLOOD SPECIMENOrdering Facility: [facility] Address: [address] [place] [address] Performed By: #### 5 8410-2 ####[facility]ORYCLIA [id number] [address] CONSULT PROGon 01-03-2024 CONSULT PROG HNO ID: [id number] Author: BERTA KAUR MD Service: General Surgery Author Type: Physician Type: Consult Progress Note Filed: 01/03/2024 12:05 Note Text: INPATIENT SICU PROGRESS NOTE SERVICE DATE: 01/03/2024 SERVICE TIME: 9:13 AM Subjective Patient seen and examined this morning, reports minimal pain this morning in shoulders. Well controlled with pain medication. Tolerating diet w/o n/v. Current Facility-Administere d Medications Medication Dose Route Frequency NaCl 0.9% iv flush bag 20 mL INTRAVENOUS PRN sodium chloride 0.9 % (flush) 2-10 mL (BD POSIFLUSH) 2-10 mL INTRAVENOUS DIRECTED PRN thiamine 200 mg in NaCl 0.9% 50 mL (VITAMIN B1) 200 mg INTRAVENOUS q 8 H Followed by [START ON 01/04/2024] thiamine 100 mg tab(s) (VITAMIN B1) 100 mg ORAL/FEEDING TUBE TID potassium chloride 20-40 mEq oral powder (KLOR-CON) 20-40 mEq ORAL/FEEDING TUBE PRN Or potassium chloride iv piggyback 20 mEq/100 mL 20 mEq INTRAVENOUS PRN sodium phosphate 30 mmol in D5W 250 mL 30 mmol INTRAVENOUS PRN(NO DISPENSE) Or sodium phosphate 45 mmol in D5W 250 mL 45 mmol INTRAVENOUS PRN(NO DISPENSE) magnesium sulfate iv piggyback in sterile water 2 g 50 mL 2 g INTRAVENOUS PRN calcium gluconate iv piggyback 2 g in NaCl (iso-osmotic) 100 mL 2 g INTRAVENOUS PRN(NO DISPENSE) ondansetron (PF) 4 mg injection (ZOFRAN) 4 mg INTRAVENOUS q 6 H PRN pantoprazole 20 mg oral liquid (PROTONIX) 20 mg ORAL/FEEDING TUBE DAILY (6 AM) fentaNYL 50 mcg/mL 25 mcg injection (SUBLIMAZE) 25 mcg INTRAVENOUS q 2 H PRN dextrose 15 gram/32 mL 15 g (TRUEPLUS) 15 g ORAL PRN Or glucagon 1 mg injection 1 mg INTRAMUSCULAR PRN Or dextrose 10% iv bolus 12.5 g INTRAVENOUS PRN insulin lispro injection (rapid acting) (ADMElog) SUBCUTANEOUS q 6 H ergocalciferol (vitamin D2) 50,000 Units cap(s) (DRISDOL) 50,000 Units ORAL 1/WK Followed by [START ON 02/27/2024] cholecalciferol 1,000 Units tab(s) (VITAMIN D3) 1,000 Units ORAL DAILY acetaminophen 975 mg tab(s) (TYLENOL) 975 mg ORAL/FEEDING TUBE QID gabapentin 100 mg cap(s) (NEURONTIN) 100 mg ORAL/FEEDING TUBE TID vitamin with folic acid 1 mg 1 tablet 1 tablet ORAL DAILY senna-docusate 8.6-50 mg 1 tablet (SENNA-S) 1 tablet ORAL/FEEDING TUBE BID oxyCODONE IR 5-10 mg tab(s) (ROXICODONE) 5-10 mg ORAL/FEEDING TUBE q 6 H PRN methocarbamol 500 mg tab(s) (ROBAXIN) 500 mg ORAL/FEEDING TUBE TID pseudoephedrine 60 mg (SUDAFED) 60 mg ORAL q 6 H NORepinephrine iv infusion 16 mg in D5W 250 mL (LEVOPHED) 0.6-10 mcg/min INTRAVENOUS CONTINUOUS Objective VITAL SIGNS BP 156/88 Pulse 104 Temp (Src) 97.7 (Oral) Resp 14 Ht 6' 1 (1.85m) Wt 250 lb 3.6 oz (113.5kg) SpO2 97% BMI 33.02 kg/(m2). O2 Therapy: Nasal Cannula, Liters: 2 Temp (24hrs), Av.2 ?C (97.2 ?F), Min:36 ?C (96.8 ?F), Max:36.7 ?C (98.1 ?F) Date 01/02/24699 - 01/03/2465801/03/24 07 - 01/04/24 0659 Shift 0776-2087 9969-1354 5994-5661 24 Hour Total 9706-1517 2002-6291 4080-2385 24 Hour Total INTAKE PO 400 400 PO 400 400 IV 422.2 703 443 7462.2 Volume (mL) 10.5 10.5 Volume (mL) 13.1 13.1 IV Volume (ml) 368 486 854 Volume (mL) (NaCl 0.9% iv flush bag) 69 69 Volume (mL) (ceFAZolin iv piggyback 2 g in D5W (iso-osmotic) 100 mL (ANCEF)) 100 100 Volume (mL) (thiamine 200 mg in NaCl 0.9% 50 mL (VITAMIN B1)) 100 100 Volume (mL) (sodium phosphate 45 mmol in D5W 250 mL) 30.6 220 250.6 Irrigants 150 150 Irrigant/Flush Amount In mL (I/O) ([REMOVED] GI/ Feeding 01/01/242299 [facility] Gastric Right Mouth 16 Fr 01/02/24 010) 150 150 Gastric Tube 114 114 Supplements/Additive s mL (I/O) ([REMOVED] GI/ Feeding 01/01/242299 [facility] Gastric Right Mouth 16 Fr 01/02/24 010) 114 114 Shift Total 686.2 897 372 9620.2 OUTPUT Urine 300 210 100 610 200 200 Void (ml) 100 100 200 200 Output ([REMOVED] Indwelling Urinary Catheter 01/01/24 1830 [facility] Schreiber 16 Fr 01/02/241999) 300 210 510 Tubes 80 90 90 260 50 50 Drain/Tube Output (Drain/Tube 01/01/242124 [facility] Hemovac Posterior Neck) 80 90 90 260 50 50 # of BMs Number of BMs 0 x 0 x 0 x Shift Total 380 300 190 870 250 250 Weight (kg) 113.3 113.3 113.5 113.5 113.5 113.5 113.5 113.5 PHYSICAL EXAM: GENERAL: Alert. No distress. Resting comfortably. NEURO: AANDOx3. No focal neurologic deficits. Sensation and motor grossly intact. HEENT: Normocephalic. Atraumatic. EOMI. C- collar in place. Drain with SS output LUNGS: Unlabored breathing. Equal excursion bilaterally. CARDIAC: Regular rate, on tele, Good perfusion throughout. ABDOMEN: Soft, non-tender, non-distended. No rebound or guarding. EXTREMITIES: [place]. No deformities. SKIN: No obvious jaundice or pallor. Multiple healing bruises and abrasions on extremities and head DATA: Diagnostic tests reviewed for today's visit: Recent Labs 01/02/24 0407 01/01/24 2100 01/01/24204801/01/241956 PH 7.39 -- -- (more content not included)... Normal [facility] CONSULT PROG HNO ID: [id number] Author: MARGY RODRIGUEZ APRN.TABLEMAN Service: Neurosurgery Author Type: Nurse Practitioner Type: Consult Progress Note Filed: 01/03/2024 18:03 Note Text: Neurosurgery Progress Note SERVICE DATE: 01/03/2024 SUBJECTIVE: Patient now extubated. Reporting left shoulder pain and continued left upper arm numbness. Left arm weakness on exam. MAPs consistently >85 overnight. OBJECTIVE: Vitals: Temp (24hrs), Av.2 ?C (97.2 ?F), Min:36 ?C (96.8 ?F), Max:36.7 ?C (98.1 ?F) BP 145/82 Pulse 91 Temp 36.7 ?C (98.1 ?F) (Oral) Resp 17 Ht 185.4 cm (6' 1) Wt 113.5 kg (250 lb 3.6 oz) SpO2 98% BMI 33.01 kg/m? O2 Therapy: Nasal Cannula IANDO: Date 01/02/24699 - 01/03/2465801/03/24699 - 01/04/24658 Shift 5197-8180 5385-5999 0617-6782 24 Hour Total 2252-3196 0143-3843 5221-9312 24 Hour Total INTAKE PO 400 400 PO 400 400 IV 422.2 806 1228.2 Volume (mL) 10.5 10.5 Volume (mL) 13.1 13.1 IV Volume (ml) 368 486 854 Volume (mL) (ceFAZolin iv piggyback 2 g in D5W (iso-osmotic) 100 mL (ANCEF)) 100 100 Volume (mL) (sodium phosphate 45 mmol in D5W 250 mL) 30.6 220 250.6 Irrigants 150 150 Irrigant/Flush Amount In mL (I/O) ([REMOVED] GI/ Feeding 01/01/242299 [facility] Gastric Right Mouth 16 Fr 01/02/24 010) 150 150 Gastric Tube 114 114 Supplements/Additive s mL (I/O) ([REMOVED] GI/ Feeding 01/01/242299 [facility] Gastric Right Mouth 16 Fr 01/02/24 010) 114 114 Shift Total 686.2 166 341 2084.2 OUTPUT Urine 300 210 510 Output ([REMOVED] Indwelling Urinary Catheter 01/01/24 1830 [facility] Schreiber 16 Fr 01/02/241999) 300 210 510 Tubes 80 90 90 260 Drain/Tube Output (Drain/Tube 01/01/242124 [facility] Hemovac Posterior Neck) 80 90 90 260 # of BMs Number of BMs 0 x 0 x 0 x Shift Total 380 300 90 770 Weight (kg) 113.3 113.3 113.5 113.5 113.5 113.5 113.5 113.5 MEDICATIONS Current Facility-Administere d Medications Medication Dose Route Frequency fentaNYL 50 mcg/mL 25 mcg injection (SUBLIMAZE) 25 mcg INTRAVENOUS q 2 H PRN dextrose 15 gram/32 mL 15 g (TRUEPLUS) 15 g ORAL PRN Or glucagon 1 mg injection 1 mg INTRAMUSCULAR PRN Or dextrose 10% iv bolus 12.5 g INTRAVENOUS PRN insulin lispro injection (rapid acting) (ADMElog) SUBCUTANEOUS q 6 H ergocalciferol (vitamin D2) 50,000 Units cap(s) (DRISDOL) 50,000 Units ORAL 1/WK acetaminophen 975 mg tab(s) (TYLENOL) 975 mg ORAL/FEEDING TUBE QID folic acid 1 mg tab(s) 1 mg ORAL/FEEDING TUBE DAILY gabapentin 100 mg cap(s) (NEURONTIN) 100 mg ORAL/FEEDING TUBE TID vitamin with folic acid 1 mg 1 tablet 1 tablet ORAL DAILY senna-docusate 8.6-50 mg 1 tablet (SENNA-S) 1 tablet ORAL/FEEDING TUBE BID oxyCODONE IR 5-10 mg tab(s) (ROXICODONE) 5-10 mg ORAL/FEEDING TUBE q 6 H PRN methocarbamol 500 mg tab(s) (ROBAXIN) 500 mg ORAL/FEEDING TUBE TID pseudoephedrine 60 mg (SUDAFED) 60 mg ORAL q 6 H NORepinephrine iv infusion 16 mg in D5W 250 mL (LEVOPHED) 0.6-10 mcg/min INTRAVENOUS CONTINUOUS NaCl 0.9% iv flush bag 20 mL INTRAVENOUS PRN sodium chloride 0.9 % (flush) 2-10 mL (BD POSIFLUSH) 2-10 mL INTRAVENOUS DIRECTED PRN thiamine 200 mg in NaCl 0.9% 50 mL (VITAMIN B1) 200 mg INTRAVENOUS q 8 H potassium chloride 20-40 mEq oral powder (KLOR-CON) 20-40 mEq ORAL/FEEDING TUBE PRN Or potassium chloride iv piggyback 20 mEq/100 mL 20 mEq INTRAVENOUS PRN sodium phosphate 30 mmol in D5W 250 mL 30 mmol INTRAVENOUS PRN(NO DISPENSE) Or sodium phosphate 45 mmol in D5W 250 mL 45 mmol INTRAVENOUS PRN(NO DISPENSE) magnesium sulfate iv piggyback in sterile water 2 g 50 mL 2 g INTRAVENOUS PRN calcium gluconate iv piggyback 2 g in NaCl (iso-osmotic) 100 mL 2 g INTRAVENOUS PRN(NO DISPENSE) ondansetron (PF) 4 mg injection (ZOFRAN) 4 mg INTRAVENOUS q 6 H PRN pantoprazole 20 mg oral liquid (PROTONIX) 20 mg ORAL/FEEDING TUBE DAILY (6 AM) Labs: Recent Labs 01/03/24 0401 01/02/24 0407 01/02/24 0206 08/06/25 209901/01/24204801/01/24195601/01/24 0614 NA 134* -- 138 -- -- -- 137 K 3.9 -- 4.9 -- -- -- 3.6* CHLOR 103 -- 107 -- -- -- 100 CO2 24 -- 21* -- -- -- 22 BUN 12 -- 10 -- -- -- 7* CREAT 0.93 -- 0.86 -- -- -- 1.00 GLUC 98 -- 207* -- -- -- 107* ANION 7* -- 10 -- -- -- 15 CA 7.9* -- 8.6 -- -- -- 8.8 MG 2.2 -- 1.7 -- -- -- -- P 3.3 -- 3.4 -- -- -- -- ALB -- -- -- -- -- -- 3.5* AST -- -- -- -- -- -- 27 ALT -- -- -- -- -- -- 10 ALKPHOS -- -- -- -- -- -- 160* TBILI -- -- -- -- -- -- 0.2 WBC 12.20* -- 10.80 -- -- -- 10.04 HB 9.3* -- 10.9* -- -- -- 10.8* HCT 28.7* -- 34.1* -- -- -- 35.5* PLT 192 -- 195 -- -- -- 314 LACT -- 1.8 -- -- -- -- -- INR -- -- -- -- -- -- 0.9 PH -- 7.39 -- -- -- -- -- PCO2 -- 39 -- 40.8 27.3* < > -- PO2 -- 176* -- 244* 240* < > -- BE -- -- -- -2 -11* < > -- HCO3 -- 23 -- 23.3 14.4* < > -- < > = values in this interval not displayed. Exam: GENERAL: Awake and alert; NAD; (more content not included)... Normal [facility] Calcium.ionized [Moles/Vol]o n 01-03-2024 Calcium.ionized (BldV) [Mass/Vol] 1.12 mmol/L Normal 1.08-1.30 [facility] Comment on above: Order Comment: Speci men Type: BLOOD SPECIMENOrdering Facility: [facility] Address: [address] [place] [address] Performed By: #### 1 995-0 ####[facility]ORYCLIA [id number] [address] STATES OF [facility] Calcium.ionized adjusted to pH 7.4 (Bld) [Moles/Vol] 1.11 mmol/L Normal 1.08-1.30 [facility] Comment on above: Order Comment: Speci men Type: BLOOD SPECIMENOrdering Facility: [facility] Address: [address] [place] [address] Performed By: #### 1 995-0 ####[facility]ORYCLIA [id number] [address] STATES OF [facility] Magnesium SerPl-mCncon 01-02 Magnesium [Mass/Vol] 2.2 mg/dL Normal 1.7-2.3 [facility] Comment on above: Order Comment: Speci men Type: BLOOD SPECIMENOrdering Facility: [facility] Address: [address] [place] [address] Performed By: #### 2 4321-2, 11964-0, 2777-1 ####[facility]ATORYCLIA [id number] [place] [address] [place] Phosphate SerPl-mCncon 01-02 Phosphate [Mass/Vol] 3.3 mg/dL Normal 2.7-4.8 [facility] Comment on above: Order Comment: Speci men Type: BLOOD SPECIMEN [facility] Address: [address] [place] [address] Performed By: #### T SCR #### [facility] CLIA [id number] [place] THERAPY NTon 01-03-2024 THERAPY NT HNO ID: [id number] Author: BRENDA LORA PT Service: Physical Therapy Author Type: Physical Therapist Type: Therapy (PT/OT/Speech/Resp) Filed: 01/03/2024 14:49 Note Text: PHYSICAL THERAPY MISSED VISIT SERVICE DATE: 01/03/2024 SERVICE TIME: (P) 1444 ROOM: [place] [address] Patient not seen due to (P) Refused Treatment. Patient declined mobility with PT, reported getting up with nursing earlier today and not getting out of bed again due to too much pain. Educated patient on role of PT in acute care setting and emphasized importance of mobility post-op to prevent further functional decline. Patient proceeded to decline mobility, will try back as able/appropriate. SIGNATURE: Brenda Lora PT PATIENT NAME: Vicki Randle DATE: January 03, 2024 TIME: 2:48 PM Normal [facility] 25(OH)D3 [facility] 25-hydroxyvitamin D3 [Mass/Vol] 10.4 ng/mL Low >=30.0 [facility] Comment on above: Order Comment: Speci men Type: BLOOD SPECIMENOrdering Facility: [facility] Address: [address] [place] [address] Result Comment: Clas sification of 25 [place] Vitamin D status: Deficiency: <= 20.0 ng/ml. Insufficiency: 21.0-29.0 ng/ml. Sufficiency: >= 30.0 ng/ml. Performed By: #### 1 989-3 ####[facility]ORYCLIA [id number] [address] OF [facility] ALLIED HEALTHon 01-02-2024 ALLIED HEALTH HNO ID: [id number] Author: JOSE OWENS RT(R) Service: Radiology Author Type: Technologist Type: Allied Health Filed: 01/02/2024 08:50 Note Text: Radiology Service Progress Note PATIENT NAME: Vicki Randle DATE OF SERVICE: January 02, 2024 TIME: 8:50 AM PATIENT IDENTITY VERIFICATION COMPLETED USING TWO (2) IDENTIFIERS: Name and Date of confirmed by identification band. FALL SCREENING: Has the patient had 2 falls in the last year or 1 fall with injury or currently using an Ambulatory Assistive Device (Walker, Cane, Wheelchair, Crutches, etc.)? Inpatient: Screened on floor PATIENT GENDER DATA: Male PATIENT RELEVANT IMPLANT DATA REVIEWED: Not Applicable PATIENT PRESENTS WITH AN IMPLANTABLE OR ATTACHED AGRICULTURE SPECIALIST: No RADIOLOGY DEPARTMENT: CT; Exam(s) Completed: Spine PERIPHERAL IV DATA: Not applicable SIGNED BY: Jsoe Owens RT(R) January 02, 2024 8:50 AM Normal [facility] ARTERIAL BLOOD GASESon 01-01 Base deficit (BldA) [Moles/Vol] -1 mmol/L Normal -2-0 [facility] Comment on above: Order Comment: Speci men Type: ARTERIAL BLOOD SPECIMENOrdering Facility: [facility] Address: [address] [place] [address] Performed By: #### A LLBG ####[facility]ORYCLIA [id number] [address] [place] Body temperature 97.88 [degF] Normal [facility] Comment on above: Order Comment: Speci men Type: ARTERIAL BLOOD SPECIMENOrdering Facility: [facility] Address: [address] [place] [address] Performed By: #### A LLBG ####[facility]ORYCLIA [id number] [address] [place] Calcium.ionized (BldV) [Mass/Vol] 1.29 mmol/L Normal 1.08-1.30 [facility] Comment on above: Order Comment: Speci men Type: ARTERIAL BLOOD SPECIMENOrdering Facility: [facility] Address: [address] [place] [address] Performed By: #### A LLBG ####[facility]ORYCLIA [id number] [address] [place] Calcium.ionized adjusted to pH 7.4 (BldA) [Moles/Vol] 1.28 mmol/L Normal 1.08-1.30 [facility] Comment on above: Order Comment: Speci men Type: ARTERIAL BLOOD SPECIMENOrdering Facility: [facility] Address: [address] [place] [address] Performed By: #### A LLBG ####[facility]ATORYCLIA [id number] [address] [place] Carboxyhemoglobin (BldA) [Mass fraction] 1.7 % Normal 0.0-2.0 [facility] Comment on above: Order Comment: Speci men Type: ARTERIAL BLOOD SPECIMENOrdering Facility: [facility] Address: [address] [place] [address] Result Comment: Carb oxyhemoglobin Reference Range for Smokers: 2.0-8.0% Performed By: #### A LLBG ####[facility]ORYCLIA [id number] [address] [place] Chloride [Moles/Vol] 111 mmol/L High 102-109 [facility] Comment on above: Order Comment: Speci men Type: ARTERIAL BLOOD SPECIMENOrdering Facility: [facility] Address: [address] [place] [address] Performed By: #### A LLBG ####[facility]ORYCLIA [id number] [address] [place] CO2 (Bld) [Partial pressure] 39 mm Hg Normal 36-46 [facility] Comment on above: Order Comment: Speci men Type: ARTERIAL BLOOD SPECIMENOrdering Facility: [facility] Address: [address] [place] [address] Performed By: #### A LLBG ####[facility]ORYCLIA [id number] [address] [place] CO2 adjusted to patient's actual temperature (Bld) [Partial pressure] 38 mmHg Normal 36-46 [facility] Comment on above: Order Comment: Speci men Type: ARTERIAL BLOOD SPECIMENOrdering Facility: [facility] Address: [address] [place] [address] Performed By: #### A LLBG ####[facility]ATORYCLIA [id number] [address] [place] FIO2 40 % Normal [facility] Comment on above: Order Comment: Speci men Type: ARTERIAL BLOOD SPECIMENOrdering Facility: [facility] Address: [address] [place] [address] Performed By: #### A LLBG ####[facility]ORYCLIA [id number] [address] [place] Glucose [Mass/Vol] 206 mg/dL High 60-105 [facility] Comment on above: Order Comment: Speci men Type: ARTERIAL BLOOD SPECIMENOrdering Facility: [facility] Address: [address] [place] [address] Performed By: #### A LLBG ####[facility]ATORYCLIA [id number] [place] [address] [place] HCO3 (Bld) [Moles/Vol] 23 mmol/L Normal 22-26 [facility] Comment on above: Order Comment: Speci men Type: ARTERIAL BLOOD SPECIMENOrdering Facility: [facility] Address: [address] [place] [address] Performed By: #### A LLBG ####[facility]ORYCLIA [id number] [address] [place] Hematocrit (Bld) [Volume fraction] 33.9 % Low 39.0-51.0 [facility] Comment on above: Order Comment: Speci men Type: ARTERIAL BLOOD SPECIMENOrdering Facility: [facility] Address: [address] [place] [address] Performed By: #### A LLBG ####[facility]ORYCLIA [id number] [address] [place] Hemoglobin (Bld) [Mass/Vol] 11.0 g/dL Low 13.0-17.0 [facility] Comment on above: Order Comment: Speci men Type: ARTERIAL BLOOD SPECIMENOrdering Facility: [facility] Address: [address] [place] [address] Performed By: #### A LLBG ####[facility]ORATORYCLIA [id number] [place] [address] [place] INHALED TIDAL VOLUME (ML) 480 Normal [facility] Comment on above: Order Comment: Speci men Type: ARTERIAL BLOOD SPECIMENOrdering Facility: [facility] Address: [address] [place] [address] Performed By: #### A LLBG ####[facility]ORATORYCLIA [id number] [address] [place] Lactate [Moles/Vol] 1.8 mmol/L Normal 0.5-2.2 [facility] Comment on above: Order Comment: Speci men Type: ARTERIAL BLOOD SPECIMENOrdering Facility: [facility] Address: [address] [place] [address] Performed By: #### A LLBG ####[facility]ORATORYCLIA [id number] [address] OF [facility] Methemoglobin (Bld) [Mass fraction] 0.6 % Normal 0.0-1.5 [facility] Comment on above: Order Comment: Speci men Type: ARTERIAL BLOOD SPECIMENOrdering Facility: [facility] Address: [address] [place] [address] Performed By: #### A LLBG ####[facility]ATORYCLIA [id number] [address] O2 THERAPY VENT=Ventilator Normal [facility] Comment on above: Order Comment: Speci men Type: ARTERIAL BLOOD SPECIMENOrdering Facility: [facility] Address: [address] [place] [address] Performed By: #### A LLBG ####[facility]ORATORYCLIA [id number] [address] [place] Oxygen (Bld) [Partial pressure] 176 mm Hg High 85-95 [facility] Comment on above: Order Comment: Speci men Type: ARTERIAL BLOOD SPECIMENOrdering Facility: [facility] Address: [address] [place] [address] Performed By: #### A LLBG ####[facility]ORYCLIA [id number] [address] Oxygen adjusted to patient's actual temperature (Bld) [Partial pressure] 174 mmHg High 85-95 [facility] Comment on above: Order Comment: Speci men Type: ARTERIAL BLOOD SPECIMENOrdering Facility: [facility] Address: [address] [place] [address] Performed By: #### A LLBG ####[facility]ORATORYCLIA [id number] [address] [place] Oxyhemoglobin (BldA) [Mass fraction] 97 % Normal 95-98 [facility] Comment on above: Order Comment: Speci men Type: ARTERIAL BLOOD SPECIMENOrdering Facility: [facility] Address: [address] [place] [address] Performed By: #### A LLBG ####[facility]ATORYCLIA [id number] [address] PEEP/CPAP 5 cmH2O Normal [facility] Comment on above: Order Comment: Speci men Type: ARTERIAL BLOOD SPECIMENOrdering Facility: [facility] Address: [address] [place] [address] Performed By: #### A LLBG ####[facility]ATORYCLIA [id number] [address] [place] pH (Bld) 7.39 [pH] Normal 7.35-7.45 [facility] Comment on above: Order Comment: Speci men Type: ARTERIAL BLOOD SPECIMENOrdering Facility: [facility] Address: [address] [place] [address] Performed By: #### A LLBG ####[facility]ATORYCLIA [id number] [address] pH adjusted to patient's actual temperature (Bld) 7.40 Normal 7.35-7.45 [facility] Comment on above: Order Comment: Speci men Type: ARTERIAL BLOOD SPECIMENOrdering Facility: [facility] Address: [address] [place] [address] Performed By: #### A LLBG ####[facility]ATORYCLIA [id number] [address] [place] PO2 / FIO2 RATIO 440 mmHg Normal >300 [facility] Comment on above: Order Comment: Speci men Type: ARTERIAL BLOOD SPECIMENOrdering Facility: [facility] Address: [address] [place] [address] Performed By: #### A LLBG ####[facility]ATORYCLIA [id number] [address] [place] [facility] Potassium [Moles/Vol] 4.5 mmol/L Normal 3.5-5.0 [facility] Comment on above: Order Comment: Speci men Type: ARTERIAL BLOOD SPECIMENOrdering Facility: [facility] Address: [address] [place] [address] Performed By: #### A LLBG ####[facility]ATORYCLIA [id number] [address] SET VENTILATOR RESPIRATORY RATE (BPM) 16 BPM Normal [facility] Comment on above: Order Comment: Speci men Type: ARTERIAL BLOOD SPECIMENOrdering Facility: [facility] Address: [address] [place] [address] Performed By: #### A LLBG ####[facility]ORYCLIA [id number] [address] [place] Sodium [Moles/Vol] 134 mmol/L Low 136-144 [facility] Comment on above: Order Comment: Speci men Type: ARTERIAL BLOOD SPECIMENOrdering Facility: [facility] Address: [address] [place] [address] Performed By: #### A LLBG ####[facility]ATORYCLIA [id number] [place] [address] [place] Basic metabolic 2000 panelon 01-02-2024 Anion gap [Moles/Vol] 10 mmol/L Normal 8-15 [facility] Comment on above: Order Comment: Speci men Type: BLOOD SPECIMENOrdering Facility: [facility] Address: [address] [place] [address] Performed By: #### 2 4321-2, 2777-1, 96119-1 ####[facility]ORYCLIA [id number] [place] [address] [place] Calcium [Mass/Vol] 8.6 mg/dL Normal 8.5-10.2 [facility] Comment on above: Order Comment: Speci men Type: BLOOD SPECIMENOrdering Facility: [facility] Address: [address] [place] [address] Performed By: #### 2 4321-2, 2776-06, ####[facility]ATORYCLIA [id number] [place] [address] [place] Chloride [Moles/Vol] 107 mmol/L Normal 98-107 [facility] Comment on above: Order Comment: Speci men Type: BLOOD SPECIMENOrdering Facility: [facility] Address: [address] [place] [address] Performed By: #### 2 4321-2, 2776-06, ####[facility]ATORYCLIA [id number] [place] [address] [place] CO2 [Moles/Vol] 21 mmol/L Low 22-30 [facility] Comment on above: Order Comment: Speci men Type: BLOOD SPECIMENOrdering Facility: [facility] Address: [address] [place] [address] Performed By: #### 2 4321-2, 2776-06, ####[facility]ATORYCLIA [id number] [address] [place] Creatinine [Mass/Vol] 0.86 mg/dL Normal 0.73-1.22 [facility] Comment on above: Order Comment: Speci men Type: BLOOD SPECIMENOrdering Facility: [facility] Address: [address] [place] [address] Performed By: #### 2 4321-2, 2776-06, ####[facility]ATORYCLIA [id number] [address] Creatinine and Glomerular filtration rate.predicted panel (S/P/Bld) 89 mL/min/1.73m??? Normal >=60 [facility] Comment on above: Order Comment: Speci men Type: BLOOD SPECIMENOrdering Facility: [facility] Address: [address] [place] [address] Result Comment: Beatrice mated Glomerular Filtration Rate (eGFR) is calculated using the 2020 CKD-EPI creatinine equation. This equation utilizes serum creatinine, sex, and age as parameters. The creatinine assay has traceable calibration to isotope dilution-mass spectrometry. Refer to KDIGO guidelines for clinical interpretation. In patients with unstable renal function, e.g. those with acute kidney injury, the eGFR may not accurately reflect actual GFR. Performed By: #### 2 4321-2, 2777-, ####[facility]ATORYCLIA [id number] [place] [address] [place] Glucose [Mass/Vol] 207 mg/dL High 74-99 [facility] Comment on above: Order Comment: Clementina zavala Type: BLOOD SPECIMENOrdering Facility: [facility] Address: [address] [place] [address] Result Comment: The [place] Diabetes Association (ADA) provides guidance for cutoff values for fasting glucose and random glucose. The ADA defines fasting as no caloric intake for at least 8 hours. Fasting plasma glucose results between 100 to 125 [...] Standards of Medical Care in Diabetes 2016, [place] Diabetes Association. Diabetes Care. 2016.39(Suppl 1). Performed By: #### 2 4321-2, 2777-, ####[facility]ATORYCLIA [id number] [place] [id number] [place] Potassium [Moles/Vol] 4.9 mmol/L Normal 3.7-5.1 [facility] Comment on above: Order Comment: Clementina zavala Type: BLOOD SPECIMENOrdering Facility: [facility] Address: [address] [place] [id number] Performed By: #### 2 4321-2, 2776-06, ####[facility]ATORYCLIA [id number] [place] [address] [place] [facility] Sodium [Moles/Vol] 138 mmol/L Normal 136-144 [facility] Comment on above: Order Comment: Speci men Type: BLOOD SPECIMENOrdering Facility: [facility] Address: [address] [place] [address] Performed By: #### 2 4321-2, 2776-06, ####[facility]ATORYCLIA [id number] [place] [id number] [place] Urea nitrogen [Mass/Vol] 10 mg/dL Normal 9-24 [facility] Comment on above: Order Comment: Speci men Type: BLOOD SPECIMENOrdering Facility: [facility] Address: [address] [place] [address] Performed By: #### 2 4321-2, 2776-06, ####[facility]ATORYCLIA [id number] [address] [place] CBC panel Auto (Bld)on 01-01 Erythrocyte distribution width (RBC) [Ratio] 15.1 % High 11.5-15.0 [facility] Comment on above: Order Comment: Speci men Type: BLOOD SPECIMENOrdering Facility: [facility] Address: [address] [place] [address] Performed By: #### 5 8410-2 ####[facility]ATORYCLIA [id number] [address] [place] Hematocrit (Bld) [Volume fraction] 34.1 % Low 39.0-51.0 [facility] Comment on above: Order Comment: Speci men Type: BLOOD SPECIMENOrdering Facility: [facility] Address: [address] [place] [address] Performed By: #### 5 8410-2 ####[facility]ATORYCLIA [id number] [place] [id number] [place] Hemoglobin (Bld) [Mass/Vol] 10.9 g/dL Low 13.0-17.0 [facility] Comment on above: Order Comment: Speci men Type: BLOOD SPECIMENOrdering Facility: [facility] Address: [address] [place] [address] Performed By: #### 5 8410-2 ####[facility]ATORYCLIA [id number] [address] MCH (RBC) [Entitic mass] 27.9 pg Normal 26.0-34.0 [facility] Comment on above: Order Comment: Speci men Type: BLOOD SPECIMENOrdering Facility: [facility] Address: [address] [place] [address] Performed By: #### 5 8410-2 ####[facility]ATORYCLIA [id number] [address] OF [facility] MCHC (RBC) [Mass/Vol] 32.0 g/dL Normal 30.5-36.0 [facility] Comment on above: Order Comment: Speci men Type: BLOOD SPECIMENOrdering Facility: [facility] Address: [address] [place] [address] Performed By: #### 5 8410-2 ####[facility]ORYCLIA [id number] [address] MCV (RBC) [Entitic vol] 87.4 fL Normal 80.0-100.0 [facility] Comment on above: Order Comment: Speci men Type: BLOOD SPECIMENOrdering Facility: [facility] Address: [address] [place] [address] Performed By: #### 5 8410-2 ####[facility]ORYCLIA [id number] [address] Nucleated RBC (Bld) [#/Vol] 10*3/uL Normal <0.01 [facility] Comment on above: Order Comment: Speci men Type: BLOOD SPECIMENOrdering Facility: [facility] Address: [address] [place] [address] Performed By: #### 5 8410-2 ####[facility]ATORYCLIA [id number] [address] [place] Platelet mean volume (Bld) [Entitic vol] 9.8 fL Normal 9.0-12.7 [facility] Comment on above: Order Comment: Speci men Type: BLOOD SPECIMENOrdering Facility: [facility] Address: [address] [place] [address] Performed By: #### 5 8410-2 ####[facility]ORYCLIA [id number] [address] [place] Platelets (Bld) [#/Vol] 195 10*3/uL Normal 150-400 [facility] Comment on above: Order Comment: Speci men Type: BLOOD SPECIMENOrdering Facility: [facility] Address: [address] [place] [address] Performed By: #### 5 8410-2 ####[facility] [id number] [address] [place] RBC (Bld) [#/Vol] 3.90 10*6/uL Low 4.20-6.00 [facility] Comment on above: Order Comment: Speci men Type: BLOOD SPECIMENOrdering Facility: [facility] Address: [address] [place] [address] Performed By: #### 5 8410-2 ####[facility]ATORYCLIA [id number] [place] [address] [place] WBC (Bld) [#/Vol] 10.80 10*3/uL Normal 3.70-11.00 [facility] Comment on above: Order Comment: Speci men Type: BLOOD SPECIMENOrdering Facility: [facility] Address: [address] [place] [address] Performed By: #### 5 8410-2 ####[facility]ORYCLIA [id number] [address] OF [facility] CONSULT PROGon 01-02-2024 CONSULT PROG HNO ID: [id number] Author: BERTA KAUR MD Service: General Surgery Author Type: Physician Type: Consult Progress Note Filed: 01/02/2024 20:29 Note Text: INPATIENT SICU PROGRESS NOTE SERVICE DATE: 01/02/2024 SERVICE TIME: 7:07 AM Subjective Patient seen and examined this morning. Kept intubated post-op. Sedation stopped this morning. Will open eyes to verbal and physical stimuli but does not follow commands past that. Current Facility-Administere d Medications Medication Dose Route Frequency NaCl 0.9% iv flush bag 20 mL INTRAVENOUS PRN gabapentin 100 mg cap(s) (NEURONTIN) 100 mg ORAL TID sodium chloride 0.9 % (flush) 2-10 mL (BD POSIFLUSH) 2-10 mL INTRAVENOUS DIRECTED PRN thiamine 200 mg in NaCl 0.9% 50 mL (VITAMIN B1) 200 mg INTRAVENOUS q 8 H Followed by [START ON 01/04/2024] thiamine 100 mg tab(s) (VITAMIN B1) 100 mg ORAL/FEEDING TUBE TID vitamin with folic acid 1 mg 1 tablet 1 tablet ORAL DAILY folic acid 1 mg tab(s) 1 mg ORAL DAILY acetaminophen 975 mg tab(s) (TYLENOL) 975 mg ORAL QID senna-docusate 8.6-50 mg 1 tablet (SENNA-S) 1 tablet ORAL BID potassium chloride 20-40 mEq oral powder (KLOR-CON) 20-40 mEq ORAL/FEEDING TUBE PRN Or potassium chloride iv piggyback 20 mEq/100 mL 20 mEq INTRAVENOUS PRN sodium phosphate 30 mmol in D5W 250 mL 30 mmol INTRAVENOUS PRN(NO DISPENSE) Or sodium phosphate 45 mmol in D5W 250 mL 45 mmol INTRAVENOUS PRN(NO DISPENSE) magnesium sulfate iv piggyback in sterile water 2 g 50 mL 2 g INTRAVENOUS PRN calcium gluconate iv piggyback 2 g in NaCl (iso-osmotic) 100 mL 2 g INTRAVENOUS PRN(NO DISPENSE) NORepinephrine iv infusion 16 mg in D5W 250 mL (LEVOPHED) 0.6-10 mcg/min INTRAVENOUS CONTINUOUS ceFAZolin iv piggyback 2 g in D5W (iso-osmotic) 100 mL (ANCEF) 2 g INTRAVENOUS q 8 HR ondansetron (PF) 4 mg injection (ZOFRAN) 4 mg INTRAVENOUS q 6 H PRN methocarbamol 750 mg tab(s) (ROBAXIN) 750 mg ORAL TID fentaNYL 25-50 mcg bolus from bag/syringe (SUBLIMAZE) 25-50 mcg INTRAVENOUS q 30 MIN PRN Or fentaNYL 50 mcg/mL 25-50 mcg injection (SUBLIMAZE) 25-50 mcg INTRAVENOUS q 30 MIN PRN fentaNYL 20 mcg/mL iv infusion in NaCl 0.9% 100 mL (SUBLIMAZE) 0-250 mcg/hr INTRAVENOUS CONTINUOUS propofol infusion (DIPRIVAN) 0-60 mcg/kg/min (Adjusted) INTRAVENOUS CONTINUOUS propofol 20 mg bolus from bag/syringe (DIPRIVAN) 20 mg INTRAVENOUS q 30 MIN PRN Or propofol 20 mg injection (DIPRIVAN) 20 mg INTRAVENOUS q 30 MIN PRN pantoprazole 20 mg oral liquid (PROTONIX) 20 mg ORAL/FEEDING TUBE DAILY (6 AM) lactated ringers iv infusion 100 mL/hr INTRAVENOUS CONTINUOUS Objective VITAL SIGNS BP 158/73 Pulse 59 Temp (Src) 97.3 (Axillary) Resp 16 Ht 6' 1 (1.85m) Wt 250 lb (113.4kg) SpO2 100% BMI 32.99 kg/(m2). O2 Therapy: Ventilator, %FIO2: 40 Temp (24hrs), Av.2 ?C (97.1 ?F), Min:35.4 ?C (95.7 ?F), Max:36.6 ?C (97.9 ?F) Date 01/01/24699 - 01/02/24 0601/02/24699 - 01/03/24 0659 Shift 8077-0803 9416-2855 1163-0774 24 Hour Total 2661-1846 4353-3692 5612-3942 24 Hour Total INTAKE PO 500 500 PO 500 500 IV 100 2104.1 716.9 2921 Volume (mL) 4.1 4.1 Volume (mL) 18.3 18.3 IV Volume (ml) 100 100 Volume (mL) (ceFAZolin iv piggyback 2 g in D5W (iso-osmotic) 100 mL (ANCEF)) 100 100 Volume (mL) (thiamine 200 mg in NaCl 0.9% 50 mL (VITAMIN B1)) 153.6 153.6 Volume (mL) (calcium gluconate iv piggyback 2 g in NaCl (iso-osmotic) 100 mL) 200 200 Volume (mL) (ceFAZolin iv piggyback 2 g in D5W (iso-osmotic) 100 mL (ANCEF)) 100 100 Volume (mL) (lactated ringers iv infusion) 245 245 Volume (mL) (NaCl 0.9% iv infusion) 1000 1000 Volume (mL) (lactated ringers iv infusion) 1000 1000 Blood Products 1400 1400 Infusion Complete Volume (mL) (RBC Transfusion Instruction) 350 350 Infusion Complete Volume (mL) (RBC Transfusion Instruction) 350 350 Infusion Complete Volume (mL) (RBC Transfusion Instruction) 350 350 Infusion Complete Volume (mL) (RBC Transfusion Instruction) 350 350 Gastric Tube 120 120 Supplements/Additive s mL (I/O) ([REMOVED] GI/ Feeding 01/01/24 Mouth 01/01/24 2200) 40 40 Supplements/Additive s mL (I/O) (GI/ Feeding 01/01/24 2300 [facility] Gastric Right Mouth 16 Fr) 80 80 Shift Total 100 4004.1 836.9 4941 OUTPUT Urine 200 400 600 Void (ml) 0 0 OR Urine Output 200 200 Output ( Indwelling Urinary Catheter 01/01/24 1830 [facility] Schreiber 16 Fr) 400 400 Tubes 100 100 Drain/Tube Output (Drain/Tube 01/01/24 2125 [facility] Hemovac Posterior Neck) 100 100 # of BMs Number of BMs 0 x 0 x Blood 1000 1000 Estimated Blood loss 1000 1000 Shift Total 4810 091 0770 Weight (kg) 106.2 106.2 113.4 113.4 113.4 113.4 113.4 113.4 PHYSICAL EXAM: GENERAL: Intubated NEURO: Sedated HEENT: Normocephalic. Atraumatic. EOMI. LUNGS: Unlabored breathing on vent. Equal excursion bilaterally. CARDIAC: Regular rate, on tele, Good perfusion throughout. ABDOMEN (more content not included)... Normal [facility] CONSULT PROG HNO ID: [id number] Author: JACKI COPELAND APRN.TABLEMAN Service: Neurosurgery Author Type: Nurse Practitioner Type: Consult Progress Note Filed: 01/02/2024 12:10 Note Text: Neurosurgery Progress Note SERVICE DATE: 01/02/2024 SUBJECTIVE: Remains intubated over night. Hemoglobin stable after 1 unit of blood lost in OR. 20 of propofol, sedation paused. Opens eyes to voice, follows in all 4. Is on 4 of levophed, MAPs in 90s OBJECTIVE: Vitals: Temp (24hrs), Av.4 ?C (97.5 ?F), Min:35.4 ?C (95.7 ?F), Max:37.2 ?C (99 ?F) BP 133/70 Pulse 71 Temp (!) 35.4 ?C (95.7 ?F) (Axillary) Resp 16 Ht 185.4 cm (6' 1) Wt 106.2 kg (234 lb 2.1 oz) SpO2 99% BMI 30.89 kg/m? O2 Therapy: Ventilator IANDO: Date 01/01/24699 - 01/02/2465801/02/24699 - 01/03/24 0659 Shift 3933-6842 7173-7504 7244-6361 24 Hour Total 0587-0541 8448-8335 3643-5563 24 Hour Total INTAKE PO 500 500 PO 500 500 IV 100 2104.1 71.9 2276 Volume (mL) 4.1 4.1 Volume (mL) 18.3 18.3 IV Volume (ml) 100 100 Volume (mL) (thiamine 200 mg in NaCl 0.9% 50 mL (VITAMIN B1)) 53.6 53.6 Volume (mL) (ceFAZolin iv piggyback 2 g in D5W (iso-osmotic) 100 mL (ANCEF)) 100 100 Volume (mL) (NaCl 0.9% iv infusion) 1000 1000 Volume (mL) (lactated ringers iv infusion) 1000 1000 Blood Products 1400 1400 Infusion Complete Volume (mL) (RBC Transfusion Instruction) 350 350 Infusion Complete Volume (mL) (RBC Transfusion Instruction) 350 350 Infusion Complete Volume (mL) (RBC Transfusion Instruction) 350 350 Infusion Complete Volume (mL) (RBC Transfusion Instruction) 350 350 Shift Total 100 4004.1 71.9 4176 OUTPUT Urine 200 100 300 Void (ml) 0 0 OR Urine Output 200 200 Output ( Indwelling Urinary Catheter 01/01/24 1830 [facility] Schreiber 16 Fr) 100 100 Tubes 40 40 Drain/Tube Output (Drain/Tube 01/01/245 [facility] Hemovac Posterior Neck) 40 40 # of BMs Number of BMs 0 x 0 x Blood 1000 1000 Estimated Blood loss 1000 1000 Shift Total 2036 938 8637 Weight (kg) 106.2 106.2 106.2 106.2 106.2 106.2 106.2 106.2 Neuro: GCS: Eyes: Opens eyes only to command (3) Verbal: Intubated (T) Motor: Obeys motor commands (6) Total: 10T. FS. TM PERRL. Speech N/A Motor Exam- RUE: thumbs up to command LUE: thumbs up to command RLE: wiggles toes to command LLE: wiggles toes to command Sensation: intact to nox stim General: Intubated. Sedated. NAD HEENT: - Normocephalic. Atraumatic. Neck: [place] in place; Hemovac with bloody drainage CV: RRR on tele, maps 90s on 4 of levo Pulm: even, unlabored, on vent GI/: abdomen soft, non-tender, non-distended Skin/Extremities: Grossly normal. Symmetrical. No edema, deformity, coloration changes. Peripheral pulses present all extremities Labs: Recent Labs 01/02/24 02001/01/24613 WBC 10.80 10.04 HB 10.9* 10.8* HCT 34.1* 35.5* PLT 195 314 INR -- 0.9 APTT -- 27.4 NA 138 137 K 4.9 3.6* CHLOR 107 100 CO2 21* 22 BUN 10 7* CREAT 0.86 1.00 GLUC 207* 107* CA 8.6 8.8 MG 1.7 -- P 3.4 -- Recent Labs 01/02/24 04001/01/24 2100 01/01/24204801/01/241956 PH 7.39 -- -- -- PCO2 39 40.8 27.3* 32.9* PO2 176* 244* 240* 240* BE -- -2 -11* -6* HCO3 23 23.3 14.4* 19.5* O2HB 97 -- -- -- COHB 1.7 -- -- -- MHGB 0.6 -- -- -- PHTC 7.40 -- -- -- PCO2T 38 -- -- -- PO2T 174* -- -- -- O2AD 40 -- -- -- Recent Labs 01/02/24 0407 01/01/24 0614 TPROT -- 7.0 ALB -- 3.5* ALT -- 10 AST -- 27 ALKPHOS -- 160* TBILI -- 0.2 LIPASE -- 24 LACT 1.8 -- Diagnostic tests reviewed for today's visit: Most recent labs and imaging results. ASSESSMENT AND PLAN: Active Hospital Problems Diagnosis Date Noted Trauma 01/01/2024 Fall 01/01/2024 Closed nondisplaced fracture of fourth cervical vertebra (HCC) 01/01/2024 Vertebral artery dissection (HCC) 01/01/2024 Spinal cord injury at C1-C4 level (HCC) 01/01/2024 Alcohol abuse 01/01/2024 Hypokalemia 01/01/2024 Obesity, Class I, BMI 30-34.9 10/01/2022 Pulmonary emphysema (HCC) 12/31/2016 Benign hypertension 07/13/2015 78 year old male PMHx EtOH abuse, obesity, AAA on ASA 81, HTN, who presents after GLF with central cord syndrome and C4-5 fractures and left vertebral artery dissection 12/31- C3-6 PCDF -Neuro as above -Pain control: per primary -Imaging: NNI, no additional xrays needed -Diet: per primary -Incision(s)/Dressin g(s): reinforce as needed -Drain(s): Hemovac to full suction; record q4h; 100 cc since surgery -Antibiotic(s): post op abx -Activity: WBAT; C-collar at all times, [place] J ordered -MAP >85 -NIL recs ASA 81 when able and repeat CTA H/N in 8-10 weeks for L vert dissection -DVT ppx: SCDs -Dispo: Pending PT/OT Parts of this note may have been copied from one of my previous notes and remain pertinent. The documentation has been reviewed and edited as necessary to support the clinical decision chary (more content not included)... Normal [facility] CT CERVICAL SPINE WO IVCONon 01-02-2024 CT CERVICAL SPINE WO IVCON * * *Final Report* * * DATE OF EXAM: Jan 02 2024 8:49AM [facility] 0505 - CT CERVICAL SPINE WO IVCON / PROCEDURE REASON: new left arm numbness * * * * Physician Interpretation * * * * EXAMINATION: CT CERVICAL SPINE WITHOUT IV CONTRAST CLINICAL HISTORY: New left arm numbness. TECHNIQUE: Spiral, high resolution axial unenhanced images were obtained from the skull base to the cervicothoracic junction with sagittal and coronal planar reconstructions. MQ: [id number] CT Radiation dose: Integrated CT Dose-Length Product (DLP) for this visit = 656 mGy*cm CT Dose Reduction Employed: Automated exposure control(AEC) and iterative recon COMPARISON: CT cervical spine from outside institution 01/01/2024. MRI cervical spine 01/01/2024. RESULT: Counting reference: Craniocervical junction. Anatomic Variants: None. Pipeliner (topogram) images: Patient is noted to be intubated. Alignment: Alignment is anatomic. Craniocervical junction: Craniocervical junction is normal. Osseous structures/fracture: The patient has undergone laminectomy at the C3-C6 levels. There is bilateral facet screw and posterior nate fixation at the C3-C6 levels. No definite hardware complication noted. There is some bone graft material noted along the hardware and posterior to the facet joints at the same levels. There is a surgical drainage catheter noted in the laminectomy bed. Midline posterior skin closure deni are noted. No suspicious destructive osseous lesion. Fracture of the left C4 pedicle and left transverse foramen again noted and unchanged. Abnormal widening of the C4-C5 anterior disc space consistent with traumatic injury appears similar to the preoperative exam. No other evidence of fracture. Cervical soft tissues: There is prevertebral soft tissue swelling again noted. Degenerative changes: Moderate multilevel degenerative changes of the cervical spine including interbody bony fusion at the C3-C4 level and right facet joint fusion at the C2-C3 level. Multilevel degenerative neural foraminal narrowing is again noted related to uncovertebral joint and facet joint arthrosis. IMPRESSION: 1. Postsurgical changes of C3-C6 laminectomy and posterior facet joint screw/nate fixation. 2. Stable widening of the anterior C4-C5 disc space and prevertebral soft tissue swelling consistent with the recent traumatic injury. Stable left C4 pedicle fracture involving the transverse foramen. 3. Multilevel degenerative changes of cervical spine similar to the preoperative exam. Anatomic Variant: None. Assume 7 cervical vertebrae with counting from the craniocervical junction. Relocation Services Specialist: RUDDY Transcribe Date/Time: Jan 02 2024 9:47A Dictated by : JUSTINO CACERES MD This examination was interpreted and the report reviewed and electronically signed by: JUSTINO CACERES MD on Jan 02 2024 10:05AM EST [id number] CN Normal [facility] Calcium.ionized [Moles/Vol]o n 01-02-2024 Calcium.ionized (BldV) [Mass/Vol] 1.16 mmol/L Normal 1.08-1.30 [facility] Comment on above: Order Comment: Victor Manueli sally Type: BLOOD SPECIMENOrdering Facility: [facility] Address: [address] [place] [address] Performed By: #### 1 995-0 ####[facility]ORY[facility]IA [id number] [place] [address] [place] Calcium.ionized adjusted to pH 7.4 (Bld) [Moles/Vol] 1.17 mmol/L Normal 1.08-1.30 [facility] Comment on above: Order Comment: Victor Manueli sally Type: BLOOD SPECIMENOrdering Facility: [facility] Address: [address] [place] [address] Performed By: #### 1 995-0 ####[facility]ORYCLIA [id number] [place] [address] [place] HbA1c (Bld)on 01-02-2024 Average glucose Estimated from glycated hemoglobin (Bld) [Mass/Vol] 108 mg/dL Normal [facility] Comment on above: Order Comment: Clementina zavala Type: BLOOD SPECIMENOrdering Facility: [facility] Address: [address] [place] [address] Result Comment: eAG: (Estimated average glucose) is a calculated value from HgbA1c and is labor relations representative of the average blood glucose level in the last 2-3 month period. Performed By: #### 5 5454-3 ####[facility] LABCLIA [id number] [place] [address] [place] HbA1c (Bld) [Mass fraction] 5.4 % Normal 4.3-5.6 [facility] Comment on above: Order Comment: Victor Manueli sally Type: BLOOD SPECIMENOrdering Facility: [facility] Address: [address] [place] [address] Result Comment: Amer [place] Diabetes Association guidelines indicate that patients with HgbA1c in the range 5.7-6.4% are at increased risk for development of diabetes, and intervention by lifestyle modification may be beneficial. HgbA1c greater or equal to 6.5% is considered diagnostic of diabetes. Performed By: #### 5 5454-3 ####[facility] LABCLIA [id number] [facility] [id number] VIL[place] [id number] [facility] [place] Magnesium SerPl-mCncon 01-01 Magnesium [Mass/Vol] 1.7 mg/dL Normal 1.7-2.3 [facility] Comment on above: Order Comment: Speci men Type: BLOOD SPECIMENOrdering Facility: [facility] Address: [address] [place] [address] Performed By: #### 2 4321-2, 2777-1, 37488-2 ####[facility]ORYCLIA [id number] [place], [place] [id number] [place] [address] OF [facility] NUTRITIONon 01-02-2024 NUTRITION HNO ID: [id number] Author: NATHALIA RANGEL RD Service: Nutrition Therapy Author Type: Registered Dietitian Type: Nutrition Filed: 01/02/2024 12:50 Note Text: INITIAL ASSESSMENT SERVICE DATE: 01/02/2024 SERVICE TIME: 1122 Nutrition Assessment: Recommended Malnutrition Diagnosis: No Malnutrition Identified In the context of: Acute Illness or Injury Nutrition Diagnosis: Problem: Increased nutrient needs Related to: Acute illness As evidenced by: Medical condition Care Plan: Continue current diet (If extubated, diet per MEDICAL INSURANCE VERIFIER.) Supplements: Ensure Max (if diet advanced to thins) Enteral Nutrition Tube Feeding Formula Type: Peptamen Intense VHP Goal Rate (mL/hr x hours): 63mL/hr x 24 hours to yield 1512mL product/1512cals/139 g protein/1270mL H20 Water Flush Volume (mL x frequency: 30mL Q 4 hours for tube patency or per primary/hydration needs. Recommended Enteral Access: Oral, Gastric TF will provide 1512cals, 139g protein or 13cal/kg CBW and 1.65g/kg IBW per obese critical guidelines. Monitor and Evaluation: Meet greater than 75% of estimated needs, Monitor fluid/electrolyte balance, Monitor labs, I/Os, vital signs, weight, Monitor tolerance to tube feeding, Monitor bowel function Discharge Recommendations: (pending.) HPI: 78 year old male with below PMHx who was admitted for Trauma [T14.90XA] 2/2 GLF with central cord syndrome and C4-5 fractures and left vertebral artery dissection s/p C3-6 PCDF on 12/31. Currently intubated, on low dose pressor, no sedation in place. Pt able to not yes/no. RN states possible extubation today. History Date Esophageal reflux Sebaceous cyst Mixed hyperlipidemia Hypertrophy of prostate without urinary obstruction and other lower urinary tract symptoms (LUTS) AAA (abdominal aortic aneurysm) ([facility]) 02/06/2012 Facet arthritis of lumbar region 06/27/2014 Venous insufficiency of both lower extremities 07/01/2014 Squamous cell carcinoma 04/04/2015 Benign hypertension 07/13/2015 Situational depression 07/03/2016 Pulmonary emphysema ([facility]) 12/31/2016 Personal history of colonic polyps Bruit Nodule of right lung 04/17/2012 Neoplasm of skin of hand Actinic keratosis Left leg DVT ([facility]) 02/19/2018 Acute deep vein thrombosis (DVT) of femoral vein of left lower extremity ([facility]) 03/16/2018 Basal cell carcinoma 2020 Class 1 obesity due to excess calories without serious comorbidity with body mass index (BMI) of 33.0 to 33.9 in adult History of carpal tunnel surgery Chewing tobacco use Other specified glaucoma Benign essential tremor At high risk for falls Orthostatic lightheadedness BPH with obstruction/lower urinary tract symptoms Closed rib fracture 01/2023 Intake History: Nutrition Intake Prior to Admission: Greater than 75% estimated energy needs greater than or equal to 3 months Current Nutrition Intake: NPO Dosing Weight: 113 kg (249 lb 1.9 oz) Dosing Weight Type: Current weight Estimated kilocalorie needs: 6177-1165 (Obese, critical care guidelines.) Estimated protein needs (grams): 126-168 (critical care) Grams protein determined by: [place] body weight, 1.5 - 2.0 g/kg Diet Orders (From admission, onward) Start Ordered 01/01/24 0745 DIET NPO START NOW Question: NPO Restrictions Answer: EXCEPT MEDS 01/01/24 0730 Anthropometrics: Height: 185.4 cm (6' 1) Weight: 113.3 kg (249 lb 12.5 oz) Usual Weight: 105 kg (231 lb 7.7 oz) x 5 months prior. Usual Weight Obtained From: Chart Review Body mass index is 32.95 kg/m?. Weight change percentage over time: Confirmed CBW of 113kg showing wt gain x 5 months/stable weight x 1 year. Pt able to nod no to any significant wt changes x 6 months. Weight Change: Weight gain Physical Exam: Subcutaneous fat loss: No fat loss Muscle loss: No muscle loss Potential micronutrient deficiency: Skin Edema/Ascites: Generalized GI Symptoms: Swallowing problems Functional Status: Not related to malnutrition status Potential Signs of Inflammation: Chronic condition, Critically ill, Hyperglycemia, Imaging studies, Microbiologic cultures MNT Billing: $ Initial Assessment: 1-15 minutes SIGNATURE: Nathalia Rangel RD PATIENT NAME: Vicki Randle DATE: January 02, 2024 TIME: 9:51 AM Normal [facility] Phosphate SerPl-mCncon 01-01 Phosphate [Mass/Vol] 3.4 mg/dL Normal 2.7-4.8 [facility] Comment on above: Order Comment: Speci men Type: BLOOD SPECIMENOrdering Facility: [facility] Address: [address] [place] [address] Performed By: #### 2 4321-2, 2777-1, 14526-8 ####[facility]ORYCLIA [id number] [address] OF [facility] THERAPY NTon 01-02-2024 THERAPY NT HNO ID: [id number] Author: OC SCHMIDT CCC-MEDICAL INSURANCE VERIFIER Service: Speech/Swallow Author Type: Speech Language Pathologist Type: Therapy (PT/OT/Speech/Resp) Filed: 01/02/2024 16:24 Note Text: Speech Therapy Clinical Swallow Evaluation SERVICE DATE: 01/02/2024 SERVICE TIME: 1530 to 1550 ROOM: [id number] IMPRESSION: Swallow Deficits Identified / Suspected: Pharyngeal dysphagia Diet Recommendations: Regular Consistency Thin Liquids IDDSI Level 0 Swallowing Precautions Recommendations: Alert (patient should be fully alert for P.O. intake) Alternate bites and sips Feed / Eat at a slow rate Small Bite/Sip Sit upright 90 degrees for all PO Nursing Recommendations: Maintain normal schedule (meals, sleep/wake, toileting/bathing) Recommended Discharge Disposition: Continued Skilled Speech Therapy Current Hospital Course: Patient admitted on 12/31 for a trauma. Intubated 12/31-01/01. 12/31 XR chest: Placement of a central venous catheter without apparent complications. Stable appearance of the heart and lungs. 01/01 XR chest: Interval placement of nasogastric tube with tip terminating in the stomach but side holes at the level of the GE junction, recommend advancing approximately 5 cm. Small left pleural effusion with adjacent atelectasis, similar to prior. Rehabilitation Precautions: Dysphagia Reason for Speech Therapy Consult: extubated; assess swallow Relevant Past Medical History: reflux, depression Response to Therapy Interventions: Good Participation in activities Subjective: Patient alert and able to participate in session. Current Status Oral Hygiene: Oral Health Assessment Tool (OHAT), Clear, dry oral cavity Dentition: Dentures-Full Current Feeding Method: IV Current Diet Textures: NPO Current Level Of Communication: Verbal Current Management Of Secretions: Able to self-manage Oral Motor Exam: Within Functional Limits Except Labial Assessment: Generalized weakness Lingual Assessment: Generalized weakness Palatal Elevation: Right Deviation Oral Health Assessment Tool (OHAT) Lips: 0 Tongue: 0 Gums and Tissues: 0 Saliva: 0 Natural Teeth: N/A Dentures: 0 Oral Cleanliness: 0 Dental Pain: 0 OHAT Total Score: 0 0 = Healthy 1 = Changes 2 = Unhealthy Swallow Position Of Patient During Assessment: Upright In Bed Consistencies Presented: Thin Liquids IDDSI Level 0, Pureed IDDSI Level 4, Solid Compensatory Strategies Utilized During Assessment: Alert (patient should be fully alert for P.O. intake), Alternate bites and sips, Feed / Eat at a slow rate, Sit upright 90 degrees for all PO, Small Bite/Sip Clinical Swallow Oral Pharyngeal Swallow Assessment: Within Functional Limits Except Preparatory / Oral Phase: Within Functional Limits Except Pharyngeal Phase: Within Functional Limits Except Reflexive Throat Clear and Cough after Swallowing: Yes, Post-Swallow Multiple Swallows: No -able to assess swallow at the bedside -able to feed self with assistance -Trialed thin via straw: no signs and symptoms of aspiration -Trialed puree: no signs and symptoms of aspiration -Trialed solid: no signs and symptoms of aspiration -Recommend diet and safe swallowing strategies -Speech Therapy to follow for dysphagia management and to ensure consistency of safe swallow function Patient /Caregiver Goals: Go Home Goals for Plan of Care: SWALLOWING: Patient / Caregiver will demonstrate knowledge of taught compensatory strategies and dietary consistency recommendations to optimize functional swallow function without overt clinical signs and symptoms of aspiration or dysphagia Swallow Goals: Patient will tolerate Regular Consistency diet consistency while utilizing compensatory/swallow ing strategies given maximal cues in 90% of trials so that the patient will minimize the signs/symptoms of dysphagia. -see above 01/02/2024 Patient will tolerate Thin Liquids IDDSI Level 0 consistency while utilizing compensatory/swallow ing strategies given maximal cues in 90% of trials so that the patient will minimize the signs/symptoms of dysphagia. -see above 01/02/2024 Patient will participate in Bwtpan-Rshlomfp-Qdon itive evaluation to further assess communication and cognition to facilitate progress in therapy. Speech Rehab Potential: Excellent Patient will be discontinued from speech therapy when no further skilled needs are identified in this setting. PLAN: ST Frequency: 2 Times Per Week Treatment Interventions: Dysphagia Management Plan for next visit: Dietary Consistencies, Dysphagia Management, Swallowing Strategies Plan of Care Developed with: Patient, Nurse TREATMENT INTERVENTIONS: Therapy Diagnosis: Dysphagia, pharyngeal phase Interventions Provided: Clinical Swallow Evaluation (13473) $ Clinical Swallow Evaluation (66154) Billed Units: 1 unit Training and Education Provided in: Dietary Consistencies, Dysphagia Management, Swallowing Strategies The (more content not included)... Normal [facility] THERAPY NT HNO ID: [id number] Author: OC SCHMIDT CCC-SLP Service: Speech/Swallow Author Type: Speech Language Pathologist Type: Therapy (PT/OT/Speech/Resp) Filed: 01/02/2024 12:15 Note Text: SPEECH THERAPY MISSED VISIT SERVICE DATE: 01/02/2024 SERVICE TIME: 1214 ROOM: [id number] Patient not seen due to Clinical Appropriateness: Intubated. Will re-attempt swallowing therapy at a later date/time. SIGNATURE: FREDRICK Cardenas PATIENT NAME: Vicki Randle DATE: January 02, 2024 TIME: 12:15 PM Normal [facility] XR CHEST 1V FRONTALon 2023 XR CHEST 1V FRONTAL * * *Final Report* * * DATE OF EXAM: Jan 02 2024 4:08AM AKX [id number] - XR CHEST 1V FRONTAL / PROCEDURE REASON: Evaluate tube, line, or lead position * * * * Physician Interpretation * * * * EXAMINATION: CHEST RADIOGRAPH (SINGLE VIEW AP OR PA) CLINICAL HISTORY: Evaluate tube, line, or lead position MQ: XC1_5 Comparison: Chest radiograph 01/01/2024. RESULT: Lines, tubes, and devices: Enteric tube with tip terminating in the stomach and side holes at the level of the GE junction. Right IJ central line terminating in the mid SVC. Lungs and pleura: Small left pleural effusion with adjacent hazy airspace opacities, favored to be atelectasis, similar to prior exam. No pneumothorax. No new focal consolidation. Cardiomediastinal silhouette: Normal cardiomediastinal silhouette. Other: No bony abnormalities. IMPRESSION: Interval placement of nasogastric tube with tip terminating in the stomach but side holes at the level of the GE junction, recommend advancing approximately 5 cm. Small left pleural effusion with adjacent atelectasis, similar to prior. Relocation Services Specialist: RUDDY Transcribe Date/Time: Jan 02 2024 8:06A Dictated by : SHIV LEIVA MD This examination was interpreted and the report reviewed and electronically signed by: SHVI LEIVA MD on Jan 02 2024 8:09AM EST [id number] CN Normal [facility] ALLIED HEALTHon 01-01-2024 ALLIED HEALTH HNO ID: [id number] Author: MARÍA JUÁREZ RT(R) Service: Radiology Author Type: Technologist Type: Allied Health Filed: 01/01/2024 15:16 Note Text: Radiology Service Progress Note PATIENT NAME: Vicki Randle DATE OF SERVICE: January 01, 2024 TIME: 3:15 PM PATIENT IDENTITY VERIFICATION COMPLETED USING TWO (2) IDENTIFIERS: Name and Date of confirmed by patient verbally and Name and Date of confirmed by identification band. FALL SCREENING: Has the patient had 2 falls in the last year or 1 fall with injury or currently using an Ambulatory Assistive Device (Walker, Cane, Wheelchair, Crutches, etc.)? Inpatient: Screened on floor PATIENT GENDER DATA: Male PATIENT RELEVANT IMPLANT DATA REVIEWED: Not Applicable PATIENT PRESENTS WITH AN IMPLANTABLE OR ATTACHED AGRICULTURE SPECIALIST: No RADIOLOGY DEPARTMENT: General X-ray: Exam(s) Completed: Chest X-Ray PERIPHERAL IV DATA: Not applicable SIGNED BY: María Juárez RT(R) January 01, 2024 3:15 PM [facility] HNO ID: [id number] Author: VICKI BARON RT(R) Service: Radiology Author Type: Technologist Type: [facility] Filed: 01/01/2024 08:58 Note Text: Radiology Service Progress Note PATIENT NAME: Vicki Randle DATE OF SERVICE: January 01, 2024 TIME: 8:58 AM PATIENT IDENTITY VERIFICATION COMPLETED USING TWO (2) IDENTIFIERS: Name and Date of confirmed by patient verbally and Name and Date of confirmed by identification band. FALL SCREENING: Has the patient had 2 falls in the last year or 1 fall with injury or currently using an Ambulatory Assistive Device (Walker, Cane, Wheelchair, Crutches, etc.)? Inpatient: Screened on floor PATIENT GENDER DATA: Male PATIENT RELEVANT IMPLANT DATA REVIEWED: Not Applicable PATIENT PRESENTS WITH AN IMPLANTABLE OR ATTACHED AGRICULTURE SPECIALIST: No RADIOLOGY DEPARTMENT: MR; Exam(s) Completed: Spine: Cervical spine PERIPHERAL IV DATA: Not applicable SIGNED BY: Vicki Baron RT(R) January 01, 2024 8:58 AM [facility] HNO ID: [id number] Author: CELINA BAEZ RT(R) Service: Radiology Author Type: Technologist Type: [facility] Filed: 01/01/2024 05:53 Note Text: Radiology Service Progress Note DATE OF SERVICE: January 01, 2024 TIME: 5:52 AM PATIENT IDENTITY VERIFICATION COMPLETED USING TWO (2) STANDARD IDENTIFIERS: Name and Date of confirmed by patient verbally and Name and Date of confirmed by identification band. FALL SCREENING: Has the patient had 2 falls in the last year or 1 fall with injury or currently using an Ambulatory Assistive Device (Walker, Cane, Wheelchair, Crutches, etc.)? Emergency Room Patient: Screened in ED PATIENT GENDER DATA: Male PATIENT RELEVANT IMPLANT DATA REVIEWED: Not Applicable PATIENT PRESENTS WITH AN IMPLANTABLE OR ATTACHED AGRICULTURE SPECIALIST: No ALLERGIES: Reviewed and unchanged CONTRAST ALLERGY: NO. EXAM: CT -CONTRAST INDUCED NEPHROPATHY RISK FACTORS: Patient age > 60 years CREATININE: Creatinine Date Value Ref Range Status 12/02/2023 0.93 0.73 - 1.22 mg/dL Final 07/04/2022 0.95 0.73 - 1.22 mg/dL Final 07/17/2021 0.95 0.73 - 1.22 mg/dL Final Estimated Glomerular Filtration Rate Date Value Ref Range Status 12/02/2023 84 >=60 mL/min/1.73m? Final Comment: Estimated Glomerular Filtration Rate (eGFR) is calculated using the 2020 CKD-EPI creatinine equation. This equation utilizes serum creatinine, sex, and age as parameters. The creatinine assay has traceable calibration to isotope dilution-mass spectrometry. Refer to KDIGO guidelines for clinical interpretation. In patients with unstable renal function, e.g. those with acute kidney injury, the eGFR may not accurately reflect actual GFR. eGFR- Date Value Ref Range Status 07/17/2021 >60 Final P.O.C.T. RESULTS: N/A January 01, 2024 TREATMENT: N/A PERIPHERAL IV DATA: Inpatient - refer to LDA documentation RADIOLOGY DEPARTMENT: CT; Exam(s) Completed: CTA Brain and CTA Neck SIGNATURE: RT Johnathan(R) PATIENT NAME: Vicki Randle DATE: January 01, 2024 TIME: 5:52 AM Normal [facility] ANES POSTPROC EVALon 024 ANES POSTPROC EVAL HNO ID: [id number] Author: ELLA PASCUAL MD Service: Anesthesiology Author Type: Anesthesiologist Type: Anesthesia Postprocedure Evaluation Filed: 01/01/2024 23:10 Note Text: POST ANESTHESIA EVALUATION NOTE : 1945 Procedure Summary Date: 01/01/24 Room / Location: [place] OR OR Anesthesia Start: 1807 Anesthesia Stop: 2201 Procedure: POSTERIOR SEGMENTAL INSTRUMENTATION FOLLOWING CERVICAL FUSION 3-6 LEVELS (Spine Cervical) Diagnosis: Cervical stenosis of spinal canal (Cervical stenosis of spinal canal [M48.02]) Surgeons: Mando Ling MD Responsible Provider: Ella Pascual MD Anesthesia Type: general ASA Status: 3 Anesthesia Type: general Airway Type: ETT Last Vitals Vitals Value Taken Time BP 133/70 01/01/24 2300 Temp 36.6 ?C (97.9 ?F) 01/01/24 2300 Pulse 70 01/01/24 2309 Resp 16 01/01/24 2309 SpO2 100 % 01/01/24 2309 Vitals shown include unfiled device data. Post Anesthesia Patient Status Patient Evaluation: ICU. PACU/ICU Patient Condition: guarded. Anticipated Disposition: ICU planned admission. Neurological Status: sedated. Pulmonary Status: on mechanical ventilation (invasive ventilation) Airway Control: intubated on mechanical ventilation. Cardiovascular Status: guarded. medication administered: vasopressors Pain Management: clinically adequate Postoperative Hydration: acceptable. Intraoperative Events: no significant anesthesia events Post Operative Nausea/Vomiting Status: no significant post operative nausea or vomiting Recommendation: further care per PACU/ICU/floor team. Anesthesia Observations No Documentation SIGNATURE: Ella Pascual MD PATIENT NAME: Vicki Randle DATE: January 01, 2024 TIME: 11:09 PM CSN: [id number] [facility] ANES PRE-OPon 01-01-2024 ANES PRE-OP HNO ID: [id number] Author: ELLA PASCUAL MD Service: Anesthesiology Author Type: Anesthesiologist Type: Anesthesia Preprocedure Evaluation Filed: 01/01/2024 17:18 Note Text: ANESTHESIOLOGY DAY OF SURGERY NOTE : 1945 Procedure Information Date/Time: 01/01/24 1600 Procedure: POSTERIOR SEGMENTAL INSTRUMENTATION FOLLOWING CERVICAL FUSION 3-6 LEVELS (Spine Cervical) Location: [place] OR HOLD 1 / [place] OR Surgeons: Mando Ling MD Estimated body mass index is 30.89 kg/m? as calculated from the following: Height as of this encounter: 185.4 cm (6' 1). Weight as of this encounter: 106.2 kg (234 lb 2.1 oz). Most recent hematocrit and potassium results: Hematocrit 35.5 01/01/2024 Potassium 3.6 01/01/2024 Other history: Admit today following GLF - C 4 fracture and L vertebral artery dissection Norepi for MAP > 85 mm Hg S/p AAA repair 3 years ago EtOH abuse - daily shaun suarez Neuro IR Imaging reviewed. CT angiogram with dominant right vertebral artery. Left vertebral artery with aortic origin and no clear visualization of the artery distal to the V1 segment. However, there is distal reconstituition with visualization of the V4 segment up to the VB junction. No concerns of hypoperfusion to the posterior fossa. - Aspirin 81 mg daily. - Repeat CT angiogram head and neck in 8-10 weeks Relevant Problems No relevant active problems I - PHYSICAL EVALUATION AIRWAY Patient intubated: No. Tracheostomy tube not present Mallampati: III. TM distance: >3 FB. Neck ROM: limited flexion and extension. Mouth opening: adequate. Short neck: no. Thick neck: no DENTAL Dentures, upper: complete. Dentures, lower: complete. II - ANESTHESIA PLAN ASA Score: 3 Anesthetic Plan: general Airway type: ETT The patient is not a current smoker. NPO Status: adequate Beta Junito Monitoring Plan Monitoring plan: standard ASA. Post Procedure Analgesic Plan Postoperative analgesic plan: multimodal analgesia and go to ICU. Informed Consent Anesthetic risks, benefits, alternatives, personnel and consent discussed: yes. Patient / Responsible Democrat agrees to proceed: yes Patient / Surrogate agrees to blood products: Yes Significant changes in the patient condition since the History and Physical, not otherwise documented in primary service progress note: no. Potential Anesthesia issues that may suggest increased risk of complications or contraindication to planned procedure: none. Vitals Value Taken Time BP 117/82 01/01/24 1602 Pulse 93 01/01/24 1620 Resp 13 01/01/24 1620 Temp SpO2 93 % 01/01/24 1620 Vitals shown include unfiled device data. Facility-Administere d Medications as of 01/01/2024 Medication Dose Route Frequency NaCl 0.9% iv flush bag 20 mL INTRAVENOUS PRN gabapentin 100 mg cap(s) (NEURONTIN) 100 mg ORAL TID ondansetron 4 mg tab(s) (ZOFRAN) 4 mg ORAL q 6 H PRN Or ondansetron (PF) 4 mg injection (ZOFRAN) 4 mg INTRAVENOUS q 6 H PRN [START ON 01/02/2024] pantoprazole DR 20 mg tab(s) (PROTONIX) 20 mg ORAL DAILY (6 AM) sodium chloride 0.9 % (flush) 2-10 mL (BD POSIFLUSH) 2-10 mL INTRAVENOUS DIRECTED PRN And [COMPLETED] perflutren lipid microspheres 1.1 mg/mL 1.3 mL injection (DEFINITY) 1.3 mL INTRAVENOUS DIRECTED PRN thiamine 200 mg in NaCl 0.9% 50 mL (VITAMIN B1) 200 mg INTRAVENOUS q 8 H Followed by [START ON 01/04/2024] thiamine 100 mg tab(s) (VITAMIN B1) 100 mg ORAL/FEEDING TUBE TID vitamin with folic acid 1 mg 1 tablet 1 tablet ORAL DAILY folic acid 1 mg tab(s) 1 mg ORAL DAILY [COMPLETED] desmopressin 44 mcg in NaCl 0.9% 50 mL (DDAVP) 0.4 mcg/kg/dose INTRAVENOUS ONCE acetaminophen 975 mg tab(s) (TYLENOL) 975 mg ORAL QID senna-docusate 8.6-50 mg 1 tablet (SENNA-S) 1 tablet ORAL BID oxyCODONE IR 5-10 mg tab(s) (ROXICODONE) 5-10 mg ORAL q 4 H PRN potassium chloride 20-40 mEq oral powder (KLOR-CON) 20-40 mEq ORAL/FEEDING TUBE PRN Or potassium chloride iv piggyback 20 mEq/100 mL 20 mEq INTRAVENOUS PRN sodium phosphate 30 mmol in D5W 250 mL 30 mmol INTRAVENOUS PRN(NO DISPENSE) Or sodium phosphate 45 mmol in D5W 250 mL 45 mmol INTRAVENOUS PRN(NO DISPENSE) magnesium sulfate iv piggyback in sterile water 2 g 50 mL 2 g INTRAVENOUS PRN calcium gluconate iv piggyback 2 g in NaCl (iso-osmotic) 100 mL 2 g INTRAVENOUS PRN(NO DISPENSE) [COMPLETED] fentaNYL 50 mcg/mL 25 mcg injection (SUBLIMAZE) 25 mcg INTRAVENOUS ONCE NORepinephrine iv infusion 16 mg in D5W 250 mL (LEVOPHED) 0.6-10 mcg/min INTRAVENOUS CONTINUOUS Outpatient Medications as of 01/01/2024 Medication Sig gabapentin (NEURONTIN) 100 mg capsule Take 1 capsule by mouth three times a day for 90 days. FLUoxetine (PROZAC) 20 mg capsule Take 1 capsule by mouth once daily. aspirin, enteric coated (ECOTRIN LOW STRENGTH) 81 mg EC tablet Take 1 tablet by mouth once daily. evolocumab (REPATHA SURECLICK) 140 mg/mL pen injector Inject 140 mg subcutaneously every (more content not included)... Normal [facility] CBC panel Auto (Bld)on 12-31 Erythrocyte distribution width (RBC) [Ratio] 15.7 % High 11.5-15.0 [facility] Comment on above: Order Comment: Speci men Type: BLOOD SPECIMENOrdering Facility: [facility] Address: [address] [place] [address] [place] [id number] Performed By: #### 5 8410-2 ####[facility]ATORYCLIA [id number] [address] Hematocrit (Bld) [Volume fraction] 35.5 % Low 39.0-51.0 [facility] Comment on above: Order Comment: Speci men Type: BLOOD SPECIMENOrdering Facility: [facility] Address: [address] [place] [address] Performed By: #### 5 8410-2 ####[facility]ATORYCLIA [id number] [address] Hemoglobin (Bld) [Mass/Vol] 10.8 g/dL Low 13.0-17.0 [facility] Comment on above: Order Comment: Speci men Type: BLOOD SPECIMENOrdering Facility: [facility] Address: [address] [place] [address] Performed By: #### 5 8410-2 ####[facility]ORATORYCLIA [id number] [address] MCH (RBC) [Entitic mass] 26.2 pg Normal 26.0-34.0 [facility] Comment on above: Order Comment: Speci men Type: BLOOD SPECIMENOrdering Facility: [facility] Address: [address] [place] [address] Performed By: #### 5 8410-2 ####[facility]ATORYCLIA [id number] [address] MCHC (RBC) [Mass/Vol] 30.4 g/dL Low 30.5-36.0 [facility] Comment on above: Order Comment: Speci men Type: BLOOD SPECIMENOrdering Facility: [facility] Address: [address] [place] [address] Performed By: #### 5 8410-2 ####[facility]ORATORYCLIA [id number] [address] MCV (RBC) [Entitic vol] 86.0 fL Normal 80.0-100.0 [facility] Comment on above: Order Comment: Speci men Type: BLOOD SPECIMENOrdering Facility: [facility] Address: [address] [place] [address] Performed By: #### 5 8410-2 ####[facility]ATORYCLIA [id number] [address] Nucleated RBC (Bld) [#/Vol] 10*3/uL Normal <0.01 [facility] Comment on above: Order Comment: Speci men Type: BLOOD SPECIMENOrdering Facility: [facility] Address: [address] [place] [address] Performed By: #### 5 8410-2 ####[facility]ORATORYCLIA [id number] [address] [facility] Platelet mean volume (Bld) [Entitic vol] 9.6 fL Normal 9.0-12.7 [facility] Comment on above: Order Comment: Speci men Type: BLOOD SPECIMENOrdering Facility: [facility] Address: [address] [place] [address] Performed By: #### 5 8410-2 ####[facility]ATORYCLIA [id number] [address] Platelets (Bld) [#/Vol] 314 10*3/uL Normal 150-400 [facility] Comment on above: Order Comment: Speci men Type: BLOOD SPECIMENOrdering Facility: [facility] Address: [address] [place] [address] Performed By: #### 5 8410-2 ####[facility]ATORYCLIA [id number] [address] [place] RBC (Bld) [#/Vol] 4.13 10*6/uL Low 4.20-6.00 [facility] Comment on above: Order Comment: Speci men Type: BLOOD SPECIMENOrdering Facility: [facility] Address: [address] [place] [address] Performed By: #### 5 8410-2 ####[facility]ORYCLIA [id number] [address] WBC (Bld) [#/Vol] 10.04 10*3/uL Normal 3.70-11.00 [facility] Comment on above: Order Comment: Clementina zavala Type: BLOOD SPECIMENOrdering Facility: [facility] Address: [address] [place] [address] Performed By: #### 5 8410-2 ####[facility]ATORYCLIA [id number] [address] CONFIRM BLOOD TYPEon 024 ABO A Normal [facility] Comment on above: Order Comment: Speci men Type: BLOOD SPECIMENOrdering Facility: [facility] Address: [address] [place] [address] Performed By: #### C ONABO ####[facility] BANKCLIA [id number] [address] Rh Nom (Bld) Negative Normal [facility] Comment on above: Order Comment: Speci sally Type: BLOOD SPECIMENOrdering Facility: [facility] Address: [address] [place] [address] Performed By: #### C ONABO ####[facility] BANKCLIA [id number] [address] CONSULTon 01-01-2024 CONSULT HNO ID: [id number] Author: TOMEKA MOTTA PA-C Service: Neurosurgery Author Type: Physician Acquisitions Assistant Type: Consults Filed: 01/01/2024 09:30 Note Text: Attestation signed by Mando Ling MD at 01/01/2024 4:11 PM Pt seen and examined, HANDP reviewed, and I agree with the above. 78M who presents with central cord syndrome after a fall. C/o neck pain and LUE pain/weakness. Good strength in RUE, BLE. MRI shows ligamentous injury across C4-C5 with severe canal stenosis; Has been in the ICU with MAPs > 85. OR shortly for C3-C6 PCDF. Discussed plan with pt and his sons at bedside. Mando Ling MD CONSULT: NEUROSURGERY SERVICE Patient Name: Vicki Randle Date of : 1945 SERVICE DATE: 01/01/2024 REASON FOR CONSULT: C4 fx REQUESTING PHYSICIAN: Jose PRIMARY CARE PHYSICIAN: Kanchan Ge MD CHIEF COMPLAINT: LUE pain HISTORY OF PRESENT ILLNESS : Mr. Randle is a very pleasant 78 year old male with a PMH below, significant for AAA repair with daily ASA81 use and ETOH use, who had been drinking last evening and had a GLF. He states he passed out and doesn't remember the events leading up to or immediately after the fall. He does remember being at [facility] and the transfer here. He c/o LUE pain, more toward the shoulder and any movement of the arm and the area around the arm causes significant discomfort. He does c/o mild neck discomfort and mild head pain on the left. He denies dizziness, n/v, paresthesias or weakness to the extremities. States LUE is limited by pain only. PAST MEDICAL HISTORY 02/06/2012: AAA (abdominal aortic aneurysm) ([facility]) Comment: 01/10/17: CT abd 4.8 cm. s/p aortobiliac stent.-Dr. Johan Berg No date: Actinic keratosis Comment: On Dr. Luis Enrique Walls 03/16/2018: Acute deep vein thrombosis (DVT) of femoral vein of left lower extremity ([facility]) Comment: 02/19/18--on Eliquis No date: At high risk for falls 2020: Basal cell carcinoma Comment: left cheek No date: Benign essential tremor 07/13/2015: Benign hypertension No date: BPH with obstruction/lower urinary tract symptoms No date: Bruit Comment: right carotid artery No date: Chewing tobacco use No date: Class 1 obesity due to excess calories without serious comorbidity with body mass index (BMI) of 33.0 to 33.9 in adult 01/2023: Closed rib fracture Comment: right rib fracture after fall No date: Esophageal reflux Comment: Gastroesophageal reflux 06/27/2014: Facet arthritis of lumbar region No date: History of carpal tunnel surgery Comment: No date: Hypertrophy of prostate without urinary obstruction and other lower urinary tract symptoms (LUTS) Comment: Hypertrophy of the prostate w/o obstruction 02/19/2018: Left leg DVT (HCC) No date: Mixed hyperlipidemia Comment: Hyperlipidemia No date: Neoplasm of skin of hand Comment: left cheek, upper arm, ear, forearm, nose 04/17/2012: Nodule of right lung Comment: 01/08/2013: CT chest 4 mm, unchanging nodule==suspect benign No date: Orthostatic lightheadedness No date: Other specified glaucoma Comment: Dr. Melo No date: Personal history of colonic polyps 12/31/2016: Pulmonary emphysema (HCC) No date: Sebaceous cyst 07/03/2016: Situational depression 04/04/2015: Squamous cell carcinoma Comment: Left cheek 07/01/2014: Venous insufficiency of both lower extremities PAST SURGICAL HISTORY 12/29/2017: COLONOSCOPY Comment: adenomatous polyp, repeat in 5 years 08/17/2007: COLONOSCOPY FLX DX W/COLLJ SPEC WHEN PFRMD No date: EXCISION TUMOR SOFT TISSUE THIGH/KNEE SUBQ <3CM Comment: REMOVED FATTY TUMORS FROM UNDER No date: EXCISION TUMOR SOFT TISSUE THIGH/KNEE SUBQ <3CM Comment: RMOVED FATTY TUMORE 02/24/2007: INT REPAIR SCALP,JAYCOB,TRUNK 7.6-12.5CM Comment: back 09/07/2007: LAPS SURG CHOLECYSTECTOMY W/CHOLANGIOGRAPHY 02/22/2014: MRI Comment: Gil Chavira - mri - right knee 09/09/2017: PAST SURGICAL HISTORY OF; N/A Comment: Abdominal aneurysm aortic repair 2013: PAST SURGICAL HISTORY OF; Right Comment: arthroscopic knee surgery No date: PAST SURGICAL HISTORY OF; Left Comment: excision of knee bursa 02/24/2007: REM LESION TRUNK,ARM,LEG > 4.0CM Comment: back No date: REM LESION TRUNK,ARM,LEG > 4.0CM No date: REVISE MEDIAN N/CARPAL TUNNEL SURG; Bilateral Comment: 04/25/2015: SURGERY (GENERAL SURGERY) CONSULT Comment: Invasive squamous cell carcincoma see scanned documents FAMILY HISTORY Problem Relation Age of Onset Emphysema Mother Arthritis Sister Hypertension Maternal Grandmother No Known Problems Son No Known Problems Son No Known Problems Son No Known Problems Son No Known Problems Son ALLERGIES Allergen Reactions Lipitor [Atorvastat* Intolerance Rosuvastatin Calcium Intoler (more content not included)... Normal [facility] CONSULT HNO ID: [id number] Author: RONY SAENZ MD Service: General Surgery Author Type: Physician Type: Consults Filed: 01/01/2024 11:53 Note Text: Surgical Intensive Care Unit Consult Note SERVICE DATE: 01/01/2024 SERVICE TIME: 6:53 AM REASON FOR CONSULT: Neuro changes in the setting of C4 injury. Subjective 78 year old male with PMHx of HLD, GERD, Smoking (30 yr PAD), DVT, HTN, AAA s/p EVAR. Patient was a trauma transfer from [place] for ground-level fall with positive EtOH on 12/30. Patient says he did have syncope associated with the event but is not able to recall whether the syncope was before or after the event. Patient says that he fell at home and was drinking preceding his fall. Patient says he drinks 4-5 shots a day. Patient is unable to recall the events preceding or directly after his fall. Patient says his primary complaint of pain is over his left shoulder. On exam he has motor intact in bilateral upper extremities and lower extremities at the level of his hands and feet. Patient has weakness in the left arm, when his arm is raised up he has difficulty maintaining it against gravity. Patient had CT HNCAP done at [place] which shows distal radius fx (likely chornic), C4 fx L lamina, L TP, L pedicle, and post SP ext across L vert foramen. Patient also had R wrist XR and L shoulder XR. Patient not currently on BT according to report patient was on eliquisfor DVTs but stopped taking 2 weeks ago. Accoridng to med list patent is supposed to be taking Asprin but denies that he takes any medications daily. Patient not currently on BT according to report patient was on eliquisfor DVTs but stopped taking 2 weeks ago. Accoridng to med list patent is supposed to be taking Asprin but denies that he takes any medications daily. GCS at Scene was 15. GCS at Scene was 15. FUNCTIONAL STATUS: Independent PAST MEDICAL HISTORY 02/06/2012: AAA (abdominal aortic aneurysm) (HCC) Comment: 01/10/17: CT abd 4.8 cm. s/p aortobiliac stent.-Dr. Johan Berg No date: Actinic keratosis Comment: On Dr. Luis Enrique Walls 03/16/2018: Acute deep vein thrombosis (DVT) of femoral vein of left lower extremity (HCC) Comment: 02/19/18--on Eliquis No date: At high risk for falls 2020: Basal cell carcinoma Comment: left cheek No date: Benign essential tremor 07/13/2015: Benign hypertension No date: BPH with obstruction/lower urinary tract symptoms No date: Bruit Comment: right carotid artery No date: Chewing tobacco use No date: Class 1 obesity due to excess calories without serious comorbidity with body mass index (BMI) of 33.0 to 33.9 in adult 01/2023: Closed rib fracture Comment: right rib fracture after fall No date: Esophageal reflux Comment: Gastroesophageal reflux 06/27/2014: Facet arthritis of lumbar region No date: History of carpal tunnel surgery Comment: No date: Hypertrophy of prostate without urinary obstruction and other lower urinary tract symptoms (LUTS) Comment: Hypertrophy of the prostate w/o obstruction 02/19/2018: Left leg DVT (HCC) No date: Mixed hyperlipidemia Comment: Hyperlipidemia No date: Neoplasm of skin of hand Comment: left cheek, upper arm, ear, forearm, nose 04/17/2012: Nodule of right lung Comment: 01/08/2013: CT chest 4 mm, unchanging nodule==suspect benign No date: Orthostatic lightheadedness No date: Other specified glaucoma Comment: Dr. Melo No date: Personal history of colonic polyps 12/31/2016: Pulmonary emphysema (HCC) No date: Sebaceous cyst 07/03/2016: Situational depression 04/04/2015: Squamous cell carcinoma Comment: Left cheek 07/01/2014: Venous insufficiency of both lower extremities PAST SURGICAL HISTORY 12/29/2017: COLONOSCOPY Comment: adenomatous polyp, repeat in 5 years 08/17/2007: COLONOSCOPY FLX DX W/COLLJ SPEC WHEN PFRMD No date: EXCISION TUMOR SOFT TISSUE THIGH/KNEE SUBQ <3CM Comment: REMOVED FATTY TUMORS FROM UNDER No date: EXCISION TUMOR SOFT TISSUE THIGH/KNEE SUBQ <3CM Comment: RMOVED FATTY TUMORE 02/24/2007: INT REPAIR SCALP,JAYCOB,TRUNK 7.6-12.5CM Comment: back 09/07/2007: LAPS SURG CHOLECYSTECTOMY W/CHOLANGIOGRAPHY 02/22/2014: MRI Comment: Gil Chavira - mri - right knee 09/09/2017: PAST SURGICAL HISTORY OF; N/A Comment: Abdominal aneurysm aortic repair 2013: PAST SURGICAL HISTORY OF; Right Comment: arthroscopic knee surgery No date: PAST SURGICAL HISTORY OF; Left Comment: excision of knee bursa 02/24/2007: REM LESION TRUNK,ARM,LEG > 4.0CM Comment: back No date: REM LESION TRUNK,ARM,LEG > 4.0CM No date: REVISE MEDIAN N/CARPAL TUNNEL SURG; Bilateral Comment: 04/25/2015: SURGERY (GENERAL SURGERY) CONSULT Comment: Invasive squamous cell carcincoma see scanned documents FAMILY HISTORY Problem Relation Age of Onset Emphysema Mother Arthritis Sister Hypertension Maternal Grandmother No Known Problems Son No Known Problems Son No Known Problems Son No Known Problem (more content not included)... Normal [facility] CTA HEAD W IVCONon CTA HEAD W IVCON * * *Final Report* * * DATE OF EXAM: Jan 01 2024 6:05AM [facility] 0022 - CTA HEAD W IVCON / PROCEDURE REASON: Focal neuro deficit, new, fixed, or worsening, < 4.5 hours, stroke suspected * * * * Physician Interpretation * * * * EXAMINATION: CTA HEAD W IVCON, CTA NECK W IVCON CLINICAL HISTORY: Focal neuro deficit, new, fixed, or worsening, < 4.5 hours, stroke suspected, neck trauma, penetrating injury. TECHNIQUE: Spiral high resolution axial images were obtained through the head, neck and superior mediastinum following bolus administration of intravenous contrast for CT angiography. Multiplanar, maximum intensity projection images were created, reviewed and archived. MQ: CTAHN_4 Contrast: 100 mL Omnipaque [address] Radiation dose: Integrated Dose-Length Product (DLP) for this visit = 556 mGy*cm. CT Dose Reduction Employed: Iterative recon and mAs-kVp adjusted using patient size-age COMPARISON: Multiple prior exams, most recent outside preceding noncontrast brain CT on 01/01/2024 2:30 AM. RESULT: BRAIN: Evaluation of the individual slices of the CTA demonstrates no evidence of an acute stroke. ASPECT Score = 10 Hemorrhage: Evaluation for hemorrhage is limited on this exam. No evidence of acute intracranial hemorrhage within the limitations of this contrast-enhanced exam tailored to evaluate the vasculature. Enhancing partially calcified 0.5 x 1.3 x 1.0 cm (CC X AP X TV) extra-axial lesion along the anterior skull base centered along the planum sphenoidale which extends to the tuberculum sella. Lesion has been present on exams which dates to at least the 07/26/2015 and is most compatible with meningioma. A few scattered and mildly confluent hypodensities in the supratentorial white matter are nonspecific but are most compatible with chronic microvascular ischemic changes. Additional findings: Swelling centered in the right parietal scalp extends to the right periorbital soft tissues without associated calvarial or orbital fracture. Incidental findings: And 1.2 cm nodule in the superficial left infrazygomatic soft tissues, possibly epidermal inclusion cyst. NECK: Soft tissues: Small prevertebral soft tissue fluid/hematoma spans from approximately C2-C3 to C4-C5. Mild edema also present in the adjacent anterior paraspinal musculature. Increased density in the dorsal paraspinal canal, possibly related to epidural hematoma. From C2-C3 to C4-C5. Mmild mild soft tissue swelling present in the right lateral cervical soft tissues. No mass or radiographically significant cervical lymphadenopathy. Incidental few small lesion in in the dorsal superficial cervical soft tissues and the in the left infrazygomatic superficial soft tissues, possibly epidermal inclusion cysts. Cervical Spine: Mild reversal usual cervical lordotic curvature. Minimal retrolisthesis of C4 on C5 without mild widening of the disc space anteriorly. Acute nondisplaced fractures of the left C4 transverse process with involvement of the left transverse foramen, and nondisplaced fracture through the left C4 lateral mass and mildly displaced fractures through the left C4 lamina and spinous process. The C3-C4 disc spaces fused. There there is otherwise multilevel disc degeneration with varying degrees of mild to moderate multilevel loss of disc height and multilevel discal calcification. Spinal canal is somewhat congenitally narrowed. Minimal retrolisthesis of C4 in combination with disc osteophyte complex contribute to estimated the severe canal stenosis with suspected mass effect on the spinal cord. Disc osteophyte complexes at additional levels contribute to the canal stenosis. Uncovertebral and facet arthrosis contribute to multilevel foraminal stenosis (mild right at C2-C3, severe severe bilaterally at C3-C4 and at C4-C5 and moderate to severe bilaterally at C5-C6 and moderate left and [id number] right at C6-C7). Lung apices: Mild paraseptal emphysema and scarring bilaterally. CT ARTERIOGRAM: Extracranial Circulation: Aortic Arch: The left vertebral artery arises off the arch adjacent to the origin of the left subclavian artery. There is no significant stenosis in the proximal brachiocephalic vessels. Mixed calcified and soft plaque in the aortic arch as well as mild atherosclerosis at the origin of the left common carotid artery and right brachiocephalic trunk without significant stenosis Carotid Stenosis: Right Common: No significant stenosis. Right Internal Carotid Plaque: Mild calcified plaque in the bulb. Right Internal Carotid Stenosis (% by NASCET Criteria): 0% Left Common: No significant stenosis. Left Internal Carotid Plaque: Mild calcified plaque in the bulb and distal cervical ICA segment below the skull base. Left Internal Carotid Stenosis (% by NASCET Criteria): 0% Cervical Vertebral Arteries: Patency: Patent, no stenosis on the right. The nondomi (more content not included)... Normal [facility] CTA NECK W IVCONon CTA NECK W IVCON * * *Final Report* * * DATE OF EXAM: Jan 01 2024 6:05AM [facility] 0024 - CTA NECK W IVCON / PROCEDURE REASON: Neck trauma, penetrating * * * * Physician Interpretation * * * * EXAMINATION: CTA HEAD W IVCON, CTA NECK W IVCON CLINICAL HISTORY: Focal neuro deficit, new, fixed, or worsening, < 4.5 hours, stroke suspected, neck trauma, penetrating injury. TECHNIQUE: Spiral high resolution axial images were obtained through the head, neck and superior mediastinum following bolus administration of intravenous contrast for CT angiography. Multiplanar, maximum intensity projection images were created, reviewed and archived. MQ: CTAHN_4 Contrast: 100 mL Omnipaque [address] Radiation dose: Integrated Dose-Length Product (DLP) for this visit = 556 mGy*cm. CT Dose Reduction Employed: Iterative recon and mAs-kVp adjusted using patient size-age COMPARISON: Multiple prior exams, most recent outside preceding noncontrast brain CT on 01/01/2024 2:30 AM. RESULT: BRAIN: Evaluation of the individual slices of the CTA demonstrates no evidence of an acute stroke. ASPECT Score = 10 Hemorrhage: Evaluation for hemorrhage is limited on this exam. No evidence of acute intracranial hemorrhage within the limitations of this contrast-enhanced exam tailored to evaluate the vasculature. Enhancing partially calcified 0.5 x 1.3 x 1.0 cm (CC X AP X TV) extra-axial lesion along the anterior skull base centered along the planum sphenoidale which extends to the tuberculum sella. Lesion has been present on exams which dates to at least the 07/26/2015 and is most compatible with meningioma. A few scattered and mildly confluent hypodensities in the supratentorial white matter are nonspecific but are most compatible with chronic microvascular ischemic changes. Additional findings: Swelling centered in the right parietal scalp extends to the right periorbital soft tissues without associated calvarial or orbital fracture. Incidental findings: And 1.2 cm nodule in the superficial left infrazygomatic soft tissues, possibly epidermal inclusion cyst. NECK: Soft tissues: Small prevertebral soft tissue fluid/hematoma spans from approximately C2-C3 to C4-C5. Mild edema also present in the adjacent anterior paraspinal musculature. Increased density in the dorsal paraspinal canal, possibly related to epidural hematoma. From C2-C3 to C4-C5. Mmild mild soft tissue swelling present in the right lateral cervical soft tissues. No mass or radiographically significant cervical lymphadenopathy. Incidental few small lesion in in the dorsal superficial cervical soft tissues and the in the left infrazygomatic superficial soft tissues, possibly epidermal inclusion cysts. Cervical Spine: Mild reversal usual cervical lordotic curvature. Minimal retrolisthesis of C4 on C5 without mild widening of the disc space anteriorly. Acute nondisplaced fractures of the left C4 transverse process with involvement of the left transverse foramen, and nondisplaced fracture through the left C4 lateral mass and mildly displaced fractures through the left C4 lamina and spinous process. The C3-C4 disc spaces fused. There there is otherwise multilevel disc degeneration with varying degrees of mild to moderate multilevel loss of disc height and multilevel discal calcification. Spinal canal is somewhat congenitally narrowed. Minimal retrolisthesis of C4 in combination with disc osteophyte complex contribute to estimated the severe canal stenosis with suspected mass effect on the spinal cord. Disc osteophyte complexes at additional levels contribute to the canal stenosis. Uncovertebral and facet arthrosis contribute to multilevel foraminal stenosis (mild right at C2-C3, severe severe bilaterally at C3-C4 and at C4-C5 and moderate to severe bilaterally at C5-C6 and moderate left and [id number] right at C6-C7). Lung apices: Mild paraseptal emphysema and scarring bilaterally. CT ARTERIOGRAM: Extracranial Circulation: Aortic Arch: The left vertebral artery arises off the arch adjacent to the origin of the left subclavian artery. There is no significant stenosis in the proximal brachiocephalic vessels. Mixed calcified and soft plaque in the aortic arch as well as mild atherosclerosis at the origin of the left common carotid artery and right brachiocephalic trunk without significant stenosis Carotid Stenosis: Right Common: No significant stenosis. Right Internal Carotid Plaque: Mild calcified plaque in the bulb. Right Internal Carotid Stenosis (% by NASCET Criteria): 0% Left Common: No significant stenosis. Left Internal Carotid Plaque: Mild calcified plaque in the bulb and distal cervical ICA segment below the skull base. Left Internal Carotid Stenosis (% by NASCET Criteria): 0% Cervical Vertebral Arteries: Patency: Patent, no stenosis on the right. The nondominant left vertebral artery arises off the aortic arc (more content not included)... Normal [facility] Comprehensive metabolic 2000 panelon 01-01-2024 Albumin [Mass/Vol] 3.5 g/dL Low 3.9-4.9 [facility] Comment on above: Order Comment: Speci men Type: BLOOD SPECIMENOrdering Facility: [facility] Address: [address] [place] [address] Performed By: #### 2 4323-8, 3039-3 ####[facility]ORY[facility]IA [id number] [place] [address] [place] ALP [Catalytic activity/Vol] 160 U/L High 38-113 [facility] Comment on above: Order Comment: Speci men Type: BLOOD SPECIMENOrdering Facility: [facility] Address: [address] [place] [address] Performed By: #### 2 4323-8, 0-3 ####[facility]ORYCLIA [id number] [place] [address] [place] ALT With P-5'-P [Catalytic activity/Vol] 10 U/L Normal 10-54 [facility] Comment on above: Order Comment: Speci men Type: BLOOD SPECIMENOrdering Facility: [facility] Address: [address] [place] [address] Performed By: #### 2 4323-8, 3040-3 ####[facility]ORYCL[facility] [id number] [address] [place] Anion gap [Moles/Vol] 15 mmol/L Normal 8-15 [facility] Comment on above: Order Comment: Speci men Type: BLOOD SPECIMENOrdering Facility: [facility] Address: [address] [place] [address] Performed By: #### 2 4323-8, 0-3 ####[facility]ORYCL[facility] [id number] [address] [place] AST With P-5'-P [Catalytic activity/Vol] 27 U/L Normal 14-40 [facility] Comment on above: Order Comment: Speci men Type: BLOOD SPECIMENOrdering Facility: [facility] Address: [address] [place] [address] Performed By: #### 2 4323-8, 0-3 ####[facility]ORYCL[facility] [id number] [address] [place] Bilirubin [Mass/Vol] 0.2 mg/dL Normal 0.2-1.3 [facility] Comment on above: Order Comment: Speci men Type: BLOOD SPECIMENOrdering Facility: [facility] Address: [address] [place] [address] Performed By: #### 2 4323-8, 3040-3 ####[facility]ORYCLIA [id number] [address] [place] Calcium [Mass/Vol] 8.8 mg/dL Normal 8.5-10.2 [facility] Comment on above: Order Comment: Speci men Type: BLOOD SPECIMENOrdering Facility: [facility] Address: [address] [place] [address] Performed By: #### 2 4323-8, 3040-3 ####[facility]ORYCLIA [id number] [place] [address] [place] Chloride [Moles/Vol] 100 mmol/L Normal 98-107 [facility] Comment on above: Order Comment: Speci men Type: BLOOD SPECIMENOrdering Facility: [facility] Address: [address] [place] [address] Performed By: #### 2 4323-8, 3040-3 ####[facility]ORYCLIA [id number] [place] [address] [place] CO2 [Moles/Vol] 22 mmol/L Normal 22-30 [facility] Comment on above: Order Comment: Speci men Type: BLOOD SPECIMENOrdering Facility: [facility] Address: [address] [place] [address] Performed By: #### 2 4323-8, 0-3 ####[facility]ORYCLIA [id number] [address] [place] Creatinine [Mass/Vol] 1.00 mg/dL Normal 0.73-1.22 [facility] Comment on above: Order Comment: Speci men Type: BLOOD SPECIMENOrdering Facility: [facility] Address: [address] [place] [address] Performed By: #### 2 4323-8, 3040-3 ####[facility]ORYCLIA [id number] [address] Creatinine and Glomerular filtration rate.predicted panel (S/P/Bld) 77 mL/min/1.73m??? Normal >=60 [facility] Comment on above: Order Comment: Speci men Type: BLOOD SPECIMENOrdering Facility: [facility] Address: [address] [place] [address] Result Comment: Beatrice mated Glomerular Filtration Rate (eGFR) is calculated using the 2020 CKD-EPI creatinine equation. This equation utilizes serum creatinine, sex, and age as parameters. The creatinine assay has traceable calibration to isotope dilution-mass spectrometry. Refer to KDIGO guidelines for clinical interpretation. In patients with unstable renal function, e.g. those with acute kidney injury, the eGFR may not accurately reflect actual GFR. Performed By: #### 2 4323-8, 3 ####[facility]ORYCLIA [id number] [place] [address] [place] Glucose [Mass/Vol] 107 mg/dL High 74-99 [facility] Comment on above: Order Comment: Speci men Type: BLOOD SPECIMENOrdering Facility: [facility] Address: [address] [place] [address] Result Comment: The [place] Diabetes Association (ADA) provides guidance for cutoff values for fasting glucose and random glucose. The ADA defines fasting as no caloric intake for at least 8 hours. Fasting plasma glucose results between 100 to 125 [...] Standards of Medical Care in Diabetes 2016, [place] Diabetes Association. Diabetes Care. 2016.39(Suppl 1). Performed By: #### 2 4323-8, 3 ####[facility]ORYCLIA [id number] [place] [address] [place] Potassium [Moles/Vol] 3.6 mmol/L Low 3.7-5.1 [facility] Comment on above: Order Comment: Clementina zavala Type: BLOOD SPECIMENOrdering Facility: [facility] Address: [address] [id number] Performed By: #### 2 4323-8, 3 ####[facility]ORYCLIA [id number] [place] [address] [place] Protein [Mass/Vol] 7.0 g/dL Normal 6.3-8.0 [facility] Comment on above: Order Comment: Speci men Type: BLOOD SPECIMENOrdering Facility: [facility] Address: [address] [place] [address] Performed By: #### 2 4323-8, 3040-3 ####[facility]ORYCLIA [id number] [place] [address] [place] [facility] Sodium [Moles/Vol] 137 mmol/L Normal 136-144 [facility] Comment on above: Order Comment: Speci men Type: BLOOD SPECIMENOrdering Facility: [facility] Address: [address] [place] [address] Performed By: #### 2 4323-8, 3040-3 ####[facility]ORYCLIA [id number] [place] [id number] [place] Urea nitrogen [Mass/Vol] 7 mg/dL Low 9-24 [facility] Comment on above: Order Comment: Speci men Type: BLOOD SPECIMENOrdering Facility: [facility] Address: [address] [place] [address] Performed By: #### 2 4323-8, 3040-3 ####[facility]ORYCLIA [id number] [place] [id number] [place] ECHO WITH AGITATED SALINE CO NTRASTon 01-01-2024 ECHO WITH AGITATED SALINE CONTRAST Echocardiography Report: Transthoracic Echo [facility] Date of service: 01/01/2024 12:21:56 [facility] [place] Ordering physician: RONY SAENZ Indication: Frequent PVCs Technologist: Jacob Alcantara [facility] Interpreting physician: Allen Brooks MD PATIENT: Name: MR. VICKI RANDLE : 1945 Age: 78 years Gender: M History of hypertension. Primary rhythm: sinus. Secondary rhythm: PVC. Height: 185.40 cm BSA: 2.34 m Weight: 106.20 kg BMI: 30.9 kg/m Heart rate 91 bpm Blood pressure 148/91 mmHg Technically difficult exam due to suboptimal positioning and neck brace, frequent ectopy. Color Doppler was utilized to interrogate the cardiac valves assessed and spectral Doppler was utilized to determine the flow velocities and pressure gradients reported in this exam. MEASUREMENTS: Value Indexed Normal Max aortic dimension 3.6 cm Ao < 3.8 Left atrial volume 71 ml (biplane A-L) 30 ml/m Mayda <= 34 LV ID (diastole) 4.7 cm (2D) 2.01 cm/m LV ID (systole) 3.2 cm (2D) 1.39 cm/m IVS, leaflet tips 1.1 cm (2D) Posterior wall thickness 1.0 cm (2D) Left ventricular mass 177 g (2D) 76 g/m LV end diastolic volume 111 ml (2D biplane) 47.4 ml/m 34<=EDVi<75 Ejection Fraction 70 % (visual est.) EF > 52 FINDINGS: LEFT VENTRICLE The left ventricle is normal in size. Left ventricular systolic function is normal globally. Normal left ventricular diastolic function. Mitral annular lateral E/e': 8.6. Definity contrast used for endocardial border detection. Wall Motion: All scored segments are normal. RIGHT VENTRICLE The right ventricle is normal in size. Right ventricular systolic function is normal. RV systolic tissue Doppler velocity is 19.0 cm/s. Tricuspid annular displacement is 2.3 cm. LEFT ATRIUM The left atrial cavity is normal in size. RIGHT ATRIUM The right atrial cavity is normal in size. MITRAL VALVE The mitral valve leaflets are structurally normal. There is trace mitral valve regurgitation. The pressure half time is 77 msec. The peak mitral E/A ratio is 0.65. The average mitral E/e' ratio is 8.6. The mitral flow deceleration time is 265 msec. TRICUSPID VALVE The tricuspid valve leaflets are structurally normal. There is trace tricuspid valve regurgitation. AORTIC VALVE There is no aortic valve regurgitation. Tricuspid aortic valve. There is mild thickening. PULMONIC VALVE The pulmonic valve was not seen or not interrogated. There is trace pulmonic valve regurgitation. There is no thickening. AORTA The visualized aorta is normal in size. Measurements - Sinus: 3.6 cm. Sinotubular junction 3.5 cm. Mid ascending aorta 3.5 cm. PULMONARY ARTERIES The pulmonary arteries are unseen or not interrogated. INTERATRIAL SEPTUM There is no evidence of intracardiac shunting as detected by Doppler. INTERVENTRICULAR SEPTUM The interventricular septum is normal. PERICARDIUM There is no pericardial effusion. There is an epicardial fat pad. CONCLUSIONS: - Technically difficult exam due to suboptimal positioning and neck brace, frequent ectopy. - Exam indication: Frequent PVCs - The left ventricle is normal in size. Left ventricular systolic function is normal. EF = 70 5% (visual est.) Definity contrast used for endocardial border detection. Normal left ventricular diastolic function. - The right ventricle is normal in size. Right ventricular systolic function is normal. - The patient has not had a prior CC echocardiographic exam for comparison. * * * Final * * * [facility] [employer] [facility] Image : [id number]. [id number] [id number] [facility] ED NOTEon 01-01-2024 ED NOTE HNO ID: [id number] Author: STELLA SIERRA RN Service: Nursing Author Type: Registered Nurse Type: ED Notes Filed: 01/01/2024 09:25 Note Text: RN attempted to call report. RN unavailable. [facility] ED NOTE HNO ID: [id number] Author: STELLA SIERRA, KHRIS Service: Nursing Author Type: Registered Nurse Type: ED Notes Filed: 01/01/2024 09:15 Note Text: Patient placed on cardiac rehabilitation specialist, BP cuff, and pulse ox for clinical monitoring after MRI. [facility] ED NOTE HNO ID: [id number] Author: STELLA SIERRA, KHRIS Service: Nursing Author Type: Registered Nurse Type: ED Notes Filed: 01/01/2024 07:29 Note Text: [place] collar adjusted. [facility] ED NOTE HNO ID: [id number] Author: STELLA SIERRA, KHRIS Service: Nursing Author Type: Registered Nurse Type: ED Notes Filed: 01/01/2024 07:17 Note Text: Verified patient on cardiac rehabilitation specialist, BP cuff, and pulse ox for clinical monitoring. [facility] ED NOTE HNO ID: [id number] Author: GURJIT MO RN Service: Emergency Medicine Author Type: Registered Nurse Type: ED Notes Filed: 01/01/2024 06:06 Note Text: This RN transported patient to CT and back to room. [facility] ED NOTE HNO ID: [id number] Author: GURJIT MO RN Service: Emergency Medicine Author Type: Registered Nurse Type: ED Notes Filed: 01/01/2024 05:46 Note Text: ED CT paged. [facility] ED NOTE HNO ID: [id number] Author: GURJIT MO RN Service: Emergency Medicine Author Type: Registered Nurse Type: ED Notes Filed: 01/01/2024 05:31 Note Text: [place] c-collar replaced by ED MD. Normal [facility] ED NOTE HNO ID: [id number] Author: ELIUD JAMESON RN Service: ? Author Type: Registered Nurse Type: ED Notes Filed: 01/01/2024 05:16 Note Text: Bed: 01-ED Expected date: Expected time: Means of arrival: Comments: [facility] transfer [facility] ED PROV NOTEon 01-01-2024 ED PROV NOTE HNO ID: [id number] Author: RENAY WELLS DO Service: Emergency Medicine Author Type: Physician Type: ED Provider Notes Filed: 01/01/2024 06:49 Note Text: Attending Note I personally saw and examined the patient. I reviewed the resident's note. I agree with the resident's assessment and plan unless otherwise noted. I was present for the significant portion of the procedure(s). Brief HPI: Vicki Randle is a 78 year old male with a PMH as documented below who presents for trauma evaluation. Patient transferred from [facility] via flight team. Patient's care discussed with the ED at [place]. Was reported that the patient was having a few shots of whiskey with his son aditi. He had gone to use the restroom when he fell. Unclear cause for the patient's fall however he was unable to get up on his own. Patient was separately taken by EMS to the outlying facility. Once there he was complaining primarily of left-sided neck pain. Patient was found to have a C4 fracture with possible vertebral artery injury. 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 Patient was subsequently flown given the fact thattheir ground transport team was going to be more than 4 hours before they could come to the ED. Patient had no focal neurologic deficits. Patient was treated for pain en route here, but otherwise had no significant change. Patient has no numbness or weakness in his extremities noted. Patient was on Eliquis with a history of prior DVT but states it has been 2 weeks since he was taken off of this therapy. PAST MEDICAL HISTORY 02/06/2012: AAA (abdominal aortic aneurysm) ([facility]) Comment: 01/10/17: CT abd 4.8 cm. s/p aortobiliac stent.-Dr. Johan Berg No date: Actinic keratosis Comment: On Dr. Luis Enrique Walls 03/16/2018: Acute deep vein thrombosis (DVT) of femoral vein of left lower extremity ([facility]) Comment: 02/19/18--on Eliquis No date: At high risk for falls 2020: Basal cell carcinoma Comment: left cheek No date: Benign essential tremor 07/13/2015: Benign hypertension No date: BPH with obstruction/lower urinary tract symptoms No date: Bruit Comment: right carotid artery No date: Chewing tobacco use No date: Class 1 obesity due to excess calories without serious comorbidity with body mass index (BMI) of 33.0 to 33.9 in adult 01/2023: Closed rib fracture Comment: right rib fracture after fall No date: Esophageal reflux Comment: Gastroesophageal reflux 06/27/2014: Facet arthritis of lumbar region No date: History of carpal tunnel surgery Comment: No date: Hypertrophy of prostate without urinary obstruction and other lower urinary tract symptoms (LUTS) Comment: Hypertrophy of the prostate w/o obstruction 02/19/2018: Left leg DVT ([facility]) No date: Mixed hyperlipidemia Comment: Hyperlipidemia No date: Neoplasm of skin of hand Comment: left cheek, upper arm, ear, forearm, nose 04/17/2012: Nodule of right lung Comment: 01/08/2013: CT chest 4 mm, unchanging nodule==suspect benign No date: Orthostatic lightheadedness No date: Other specified glaucoma Comment: Dr. Melo No date: Personal history of colonic polyps 12/31/2016: Pulmonary emphysema (HCC) No date: Sebaceous cyst 07/03/2016: Situational depression 04/04/2015: Squamous cell carcinoma Comment: Left cheek 07/01/2014: Venous insufficiency of both lower extremities Physical Exam: Primary survey negative for any acute deficits. Secondary survey significant for ongoing neck pain. Patient transitioned to an [place] collar. Lungs clear to auscultation. Distal pulses equal and intact in all 4 extremities. Patient had no gross neurologic deficits noted. Sensation intact in both the upper and lower extremities. No dermatomal sensory loss appreciated. Normal speech. No confusion. EKG: No acute arrhythmia or ischemia. Plan: Plan for trauma consultation to discuss the cervical spine fracture and reported vascular abnormalities. Will hold off on any antiplatelet therapy pending repeat CTA result and trauma recs. Patient also had a sharma scan performed at the outside facility, which was reportedly normal. Plan for review once available. Expect admission. See ED course and resident note for further details Note created using [employer] dictation software and there may be minor grammatical, word sequence or spelling errors. RENAY WELLS 01/01/24 0649 Normal [facility] ED PROV NOTE HNO ID: [id number] Author: RENAY WELLS DO Service: Emergency Medicine Author Type: Physician Type: ED Provider Notes Filed: 01/02/2024 00:01 Note Text: ED Provider Note Patient Name: Vicki Randle : 1945 SERVICE DATE: 01/01/24 History Patient presents with: Functional Transfers: Patient presents to the ED via life flight from [facility] for trauma consult. Patient was drinking tonight around midnight and experienced a fall, patient was diagnosed with C4 fracture and a vertebral artery dissection. Patient presents with contusions to the right side of head/face. Patient unable to raise left arm/shoulder. All other extremities intact. Patient denies numbness/tingling. Patient received 50 mcgs of fentanyl in route. Patient has hx of triple a, htn, and dvt. Patient is a 78-year-old male who presents to the ED as a transfer from [place]. Sent around midnight sustained a fall, positive EtOH complaining of neck pain. Found at outside hospital to have a C4 fracture and possible vertebral artery injury. EMS received fentanyl while en route, 100 mcg. He is complaining of left shoulder pain. PAST MEDICAL HISTORY 02/06/2012: AAA (abdominal aortic aneurysm) (HCC) Comment: 01/10/17: CT abd 4.8 cm. s/p aortobiliac stent.-Dr. Johan Berg No date: Actinic keratosis Comment: On Dr. Luis Enrique Walls 03/16/2018: Acute deep vein thrombosis (DVT) of femoral vein of left lower extremity (HCC) Comment: 02/19/18--on Eliquis No date: At high risk for falls 2020: Basal cell carcinoma Comment: left cheek No date: Benign essential tremor 07/13/2015: Benign hypertension No date: BPH with obstruction/lower urinary tract symptoms No date: Bruit Comment: right carotid artery No date: Chewing tobacco use No date: Class 1 obesity due to excess calories without serious comorbidity with body mass index (BMI) of 33.0 to 33.9 in adult 01/2023: Closed rib fracture Comment: right rib fracture after fall No date: Esophageal reflux Comment: Gastroesophageal reflux 06/27/2014: Facet arthritis of lumbar region No date: History of carpal tunnel surgery Comment: No date: Hypertrophy of prostate without urinary obstruction and other lower urinary tract symptoms (LUTS) Comment: Hypertrophy of the prostate w/o obstruction 02/19/2018: Left leg DVT (HCC) No date: Mixed hyperlipidemia Comment: Hyperlipidemia No date: Neoplasm of skin of hand Comment: left cheek, upper arm, ear, forearm, nose 04/17/2012: Nodule of right lung Comment: 01/08/2013: CT chest 4 mm, unchanging nodule==suspect benign No date: Orthostatic lightheadedness No date: Other specified glaucoma Comment: Dr. Melo No date: Personal history of colonic polyps 12/31/2016: Pulmonary emphysema (HCC) No date: Sebaceous cyst 07/03/2016: Situational depression 04/04/2015: Squamous cell carcinoma Comment: Left cheek 07/01/2014: Venous insufficiency of both lower extremities PAST SURGICAL HISTORY 12/29/2017: COLONOSCOPY Comment: adenomatous polyp, repeat in 5 years 08/17/2007: COLONOSCOPY FLX DX W/COLLJ SPEC WHEN PFRMD No date: EXCISION TUMOR SOFT TISSUE THIGH/KNEE SUBQ <3CM Comment: REMOVED FATTY TUMORS FROM UNDER No date: EXCISION TUMOR SOFT TISSUE THIGH/KNEE SUBQ <3CM Comment: RMOVED FATTY TUMORE 02/24/2007: INT REPAIR SCALP,JAYCOB,TRUNK 7.6-12.5CM Comment: back 09/07/2007: LAPS SURG CHOLECYSTECTOMY W/CHOLANGIOGRAPHY 02/22/2014: MRI Comment: [facility] - mri - right knee 09/09/2017: PAST SURGICAL HISTORY OF; N/A Comment: Abdominal aneurysm aortic repair 2012: PAST SURGICAL HISTORY OF; Right Comment: arthroscopic knee surgery No date: PAST SURGICAL HISTORY OF; Left Comment: excision of knee bursa 02/24/2007: REM LESION TRUNK,ARM,LEG > 4.0CM Comment: back No date: REM LESION TRUNK,ARM,LEG > 4.0CM No date: REVISE MEDIAN N/CARPAL TUNNEL SURG; Bilateral Comment: 04/25/2015: SURGERY (GENERAL SURGERY) CONSULT Comment: Invasive squamous cell carcincoma see scanned documents FAMILY HISTORY Problem Relation Age of Onset Emphysema Mother Arthritis Sister Hypertension Maternal Grandmother No Known Problems Son No Known Problems Son No Known Problems Son No Known Problems Son No Known Problems Son Social History Tobacco Use Smoking status: Former Packs/day: 1.00 Years: 30.00 Additional pack years: 0.00 Total pack years: 30.00 Types: Cigarettes Quit date: 06/02/1988 Years since quittin.6 Smokeless tobacco: Current Types: Chew Tobacco comments: Brief relaps after of spouse. Vaping Use Vaping Use: Never used Substance and Sexual Activity Alcohol use: Yes Drug use: No Sexual activity: Not Currently ALLERGIES Allergen Reactions Lipitor [Atorvastat* Intolerance Rosuvastatin Calcium Intolerance Zuccbht-Rqu-Ale Red* Myalgia Review of Systems Unable to perform ROS: Other (See hpi) Physical Exam Vitals BP Pulse (more content not included)... Normal [facility] EKGon 01-01-2024 Electrocardiogram Ventricular Rate : 98 BPM Atrial Rate : 98 BPM P-R Interval : 188 ms QRS Duration : 84 ms Q-T Interval : 380 ms QTC Calculation(Bazett) : 485 ms Calculated P [place] : 46 degrees Calculated R [place] : 25 degrees Calculated T [place] : 7 degrees NORMAL SINUS RHYTHM PROLONGED QT ABNORMAL ECG NO PREVIOUS ECGS AVAILABLE Confirmed by MD LUNA ERICK ([id number]) on 10/01/2024 4:57:44 AM NAME : VICKI RANDLE PID : [id number] : 1945 Gender : Male Race : ORD : Procedure Date : Jan 01 2024 05:31:17 Edit Date : Oct 01 2024 04:57:47 Diagnosis: NORMAL SINUS RHYTHM PROLONGED QT ABNORMAL ECG NO PREVIOUS ECGS AVAILABLE Confirmed by MD LUNA ERICK ([id number]) on 10/01/2024 4:57:44 AM Test Reason : Location : 4 : [facility] EM Overread By : MD LUNA ERICK Edited By : MD LUNA ERICK Referred By : , Acquired by : KELSEY GRANGER [facility] Ethanol SerPl-mCncon 024 Ethanol [Mass/Vol] 65 mg/dL High <11 [facility] Health Care Comment on above: Order Comment: Speci men Type: BLOOD SPECIMENOrdering Facility: [facility] Address: [facility] [place] [address] Performed By: #### 5 643-2 ####[facility]ATORYCLIA [id number] [place] [address] [place] HISTORY PHYSICALon HISTORY PHYSICAL HNO ID: [id number] Author: KANCHAN JAIME MD Service: General Surgery Author Type: Resident Type: H&P Filed: 01/01/2024 17:22 Note Text: Attestation signed by Kanchan Jaime MD at 01/01/2024 5:22 PM Patient was seen and evaluated by myself on this day January 01, 2024. I agree with the presented documentation unless specifically noted. SIGNATURE: Kanchan Jaime MD PATIENT NAME: Vicki Randle DATE: January 01, 2024 TIME: 5:22 PM Pager: [phone] TRAUMA SURGERY HANDP [facility] ARRIVAL DATE: 01/01/2024 ARRIVAL TIME: 6:21AM CATEGORY: Trauma transfer from [place] INJURY DATE: 12/31/23 INJURY TIME: 11:59PM Subjective 78 year old male with PMHx of HLD, GERD, Smoking (30 yr PAD), DVT, HTN, AAA s/p EVAR. Patient was a trauma transfer from [place] for ground-level fall with positive EtOH on 12/30. Patient says he did have syncope associated with the event but is not able to recall whether the syncope was before or after the event. Patient says that he fell at home and was drinking preceding his fall. Patient says he drinks 4-5 shots a day. Patient is unable to recall the events preceding or directly after his fall. Patient says his primary complaint of pain is over his left shoulder. On exam he has motor intact in bilateral upper extremities and lower extremities at the level of his hands and feet. Patient has weakness in the left arm, when his arm is raised up he has difficulty maintaining it against gravity. Patient had CT HNCAP done at [place] which shows distal radius fx (likely chornic), C4 fx L lamina, L TP, L pedicle, and post SP ext across L vert foramen. Patient also had R wrist XR and L shoulder XR. It was the last GCS at [facility] was [facility]. HPI/CHIEF COMPLAINT: Ground-level fall on 12-30 BRIEF DESCRIPTION OF INJURIES: distal radius fx (likely chornic), C4 fx L lamina, L TP, L pedicle, and post SP ext across L vert foramen LAST FLUIDS/MEAL: Unknown CODE STATUS: Full code ALLERGIES Allergen Reactions Lipitor [Atorvastat* Intolerance Rosuvastatin Calcium Intolerance Akbsxpe-Vuz-Vmy Red* Myalgia (Not in a hospital admission) DATE OF LAST TETANUS: Unknown Immunization History Administered Date(s) Administered COVID-19 original vaccine, age 12+ yr, monovalent (PFIZER-BIONTECH - AN TOP) 10/23/2021 COVID-19 original vaccine, age 12+ yr, monovalent (PFIZER-BIONTECH - PURPLE TOP) 07/19/2020 08/08/2020 04/13/2021 COVID-19 vaccine, age 12+ yr, 2022- season (PFIZER-BIONTEARTHTORY) 04/21/2023 COVID-19 vaccine, age 12+ yr, bivalent (SignalDemand-BIONTEARTHTORY) 03/19/2022 COVID-19 vaccine, unspecified formulation 07/19/2020 08/08/2020 04/13/2021 influenza (HD-IIV3) vaccine, age 65+ yr, high dose, PF (FLUZONE HIGH-DOSE) 03/16/2017 03/16/2018 07/19/2019 influenza (HD-IIV4) vaccine, age 65+ yr, high dose, quadrivalent, PF (FLUZONE HIGH-DOSE) 04/20/2020 04/23/2021 03/19/2022 02/18/2023 influenza (IIV3) vaccine, trivalent, PF (AFLURIA, FLUARIX, FLULAVAL, FLUVIRIN, FLUZONE) 03/16/2017 pneumococcal conjugate (PCV13) vaccine, 13 valent (PREVNAR 13) 12/31/2016 pneumococcal polysaccharide (PPV23) vaccine, 23 valent (PNEUMOVAX 23) 07/04/2022 tetanus diphtheria pertussis (Tdap) vaccine, age 7+ yr (ADACEL, BOOSTRIX) 06/03/2006 06/15/2019 PAST MEDICAL HISTORY 02/06/2012: AAA (abdominal aortic aneurysm) (HCC) Comment: 01/10/17: CT abd 4.8 cm. s/p aortobiliac stent.-Dr. Johan Berg No date: Actinic keratosis Comment: On Dr. Luis Enrique Walls 03/16/2018: Acute deep vein thrombosis (DVT) of femoral vein of left lower extremity (HCC) Comment: 02/19/18--on Eliquis No date: At high risk for falls 2020: Basal cell carcinoma Comment: left cheek No date: Benign essential tremor 07/13/2015: Benign hypertension No date: BPH with obstruction/lower urinary tract symptoms No date: Bruit Comment: right carotid artery No date: Chewing tobacco use No date: Class 1 obesity due to excess calories without serious comorbidity with body mass index (BMI) of 33.0 to 33.9 in adult 01/2023: Closed rib fracture Comment: right rib fracture after fall No date: Esophageal reflux Comment: Gastroesophageal reflux 06/27/2014: Facet arthritis of lumbar region No date: History of carpal tunnel surgery Comment: No date: Hypertrophy of prostate without urinary obstruction and other lower urinary tract symptoms (LUTS) Comment: Hypertrophy of the prostate w/o obstruction 02/19/2018: Left leg DVT (HCC) No date: Mixed hyperlipidemia Comment: Hyperlipidemia No date: Neoplasm of skin of hand Comment: left cheek, upper arm, ear, forearm, nose 04/17/2012: Nodule of right lung Comment: 01/08/2013: CT chest 4 mm, unchanging nodule==suspect benign No date: Orthostatic lightheadedness No date: Ot (more content not included)... Normal [facility] Lipase SerPl-cCncon 01-01-20 24 Lipase [Catalytic activity/Vol] 24 U/L Normal [facility] Comment on above: Order Comment: Speci men Type: BLOOD SPECIMENOrdering Facility: [facility] Address: [address] [place] [address] Performed By: #### 2 4323-8, 3040-3 ####[facility]ORATORYCLIA [id number] [place] [address] [place] MRI CERVICAL SPINE WO IVCONo n 01-01-2024 MRI CERVICAL SPINE WO IVCON * * *Final Report* * * DATE OF EXAM: Jan 01 2024 9:12AM [facility] 0297 - MRI CERVICAL SPINE WO IVCON / PROCEDURE REASON: Spine fracture, cervical, traumatic * * * * Physician Interpretation * * * * EXAMINATION: MRI CERVICAL SPINE WO IVCON CLINICAL HISTORY: Spine C4 fracture, cervical, traumatic. Left vertebral artery dissection. Preop evaluation prior to posterior segmental instrumentation TECHNIQUE: Routine cervical spine MR protocol without gadolinium. MQ: [id number] COMPARISON: 01/01/2024 CT cervical from an outside institution. 01/01/2024 CTA RESULT: Counting reference: Craniocervical junction. Anatomic Variants: None. Abnormal narrowing with decreased flow signal left vertebral artery consistent with known left vertebral artery dissection.. Alignment: Abnormally widened anterior C4-5 disc space.. Facet joints are aligned. Craniocervical junction: Craniocervical junction is normal. Cord: Best seen STIR sagittal image 11, increased intramedullary signal cervical portion of spinal cord at the C4-5 level consistent with acute cord injury/edema. No measurable epidural hematoma. Bone marrow signal/fracture: No evidence of pathologic marrow infiltration. Redemonstration of C4 posterior element fractures better demonstrated on prior CT. Cervical soft tissues: STIR pulse sequence demonstrating moderate degree of prevertebral soft tissue swelling as well as edematous change involving the dorsal soft tissues C3 -C6 level which may indicate ligamentous injuries. C2-C3: Degenerative right foraminal stenosis due to facet arthropathy. C3-C4: Degenerative partial interbody fusion. Mild degree degenerative central canal stenosis. Severe bilateral foraminal stenosis due to uncovertebral hypertrophy. C4-C5: Redemonstration abnormal widening abnormal signal C4-5 disc space. Moderate degree of central canal stenosis and severe bilateral foraminal stenosis. C5-C6: Mild degree degenerative bilateral foraminal stenosis greater left side due to uncovertebral hypertrophy. C6-C7: Mild to moderate degree degenerative central canal due to posterior osteophyte. Mild degree of degenerative bilateral foraminal narrowing C7-T1: Canal and foramina are patent. IMPRESSION: 1. Best seen STIR sagittal image 11, increased intramedullary signal cervical portion of spinal cord at the C4-5 level consistent with acute cord injury/edema. No measurable epidural hematoma. 2.C4-C5: Redemonstration abnormal widening abnormal signal C4-5 disc space. Moderate degree of central canal stenosis and severe bilateral foraminal stenosis 3.STIR pulse sequence demonstrating moderate degree of prevertebral soft tissue swelling as well as edematous change involving the dorsal soft tissues C3 -C6 level which may indicate ligamentous injuries. 4.Redemonstration of C4 posterior element fractures better demonstrated on prior CT 5.Abnormal narrowing with decreased flow signal left vertebral artery consistent with known left vertebral artery dissection.. Anatomic Variant: None. Assume 7 cervical vertebrae with counting from the craniocervical junction. Relocation Services Specialist: [facility] Transcribe Date/Time: Jan 01 2024 10:01A Dictated by : PARESH BEEBE MD This examination was interpreted and the report reviewed and electronically signed by: PARESH BEEBE MD on Jan 01 2024 10:32AM EST [id number] CN Normal [facility] OPERATIVE NOon 01-01-2024 OPERATIVE NO HNO ID: [id number] Author: MANDO LING MD Service: Neurosurgery Author Type: Physician Type: Operative Report Filed: 01/02/2024 19:10 Note Text: OPERATIVE/PROCEDURE REPORT LOG ID: [id number] SURGERY/PROCEDURE DATE: 01/01/2024 INCISION/PROCEDURE START TIME: 7:22 PM INCISION CLOSE/PROCEDURE END TIME: 9:26 PM SURGEON(S)/PROCEDURA LIST(S) AND CUTTING TABLE OPERATOR FIRST(S): Surgeon(s) and Role: * Mando Ling MD - Primary No Additional Staff SURGERY/PROCEDURE(S) : Posterior segmental instrumentation and posterior lateral fusion from cervical 3 to cervical 6 Open reduction and internal fixation of C4 fracture Cervical 3 to cervical 6 laminectomy Use of locally harvested morselized bone autograft and bone allograft ANESTHESIA: General SURGERY/PROCEDURE DETAILS: Mr. Randle is a 78-year-old man who fell and sustained a C4 laminar fracture and presented with central cord syndrome. MRI showed severe stenosis at C4 and C5. He was taken to the OR urgently for decompression and fixation. The risks, benefits, and alternatives to the procedure were explained in detail. The risks that we discussed included bleeding, infection, neurologic injury including spinal cord injury, nerve root injury, CSF leak, need for additional surgery, medical complications such as heart attack, stroke, pneumonia, paralysis, coma, and . Understood these risks and was willing to proceed with surgery. Preoperative huddle was performed for the patient was brought to the operating room and placed under general anesthesia without complication. Somatosensory evoked potentials and motor evoked potentials were obtained at baseline. A Murphy head clamp was then applied and he was carefully turned prone onto gel rolls and all pressure points were padded. His head was placed in a neutral alignment. Neuromonitoring signals were stable after positioning. He was then prepped and draped in the usual standard fashion. A surgical timeout was performed, verifying the correct patient, procedure, and operative site, with all appropriate parties participating. A midline incision was made from C3 down to the top of C7. Bovie electrocautery was used to dissect down through the subcutaneous tissue until the spinous processes were identified. A hemostat clamp was placed on the C3 spinous process and a lateral x-ray was taken for level verification purposes. This was confirmed the attending radiologist. Once this was confirmed, dissection was carried out laterally until the lateral masses from C3-C6 bilaterally were exposed. The fracture at C4 on the left side was readily apparent. Then, using a high-speed drill, the entry point for the lateral mass screws was created from C3-C6 bilaterally. A hand drill was set to 14 mm and a 14 mm ferry pilot hole was made into the lateral masses. I would return later to place the screws after decompression. Then a Leksell rongeur was used to remove the C2-3 and C6-7 interspinous ligament. Then, the high-speed drill was used to drill a trough at the junction between the lamina and the lateral mass from C3 down to C6 bilaterally. A 1 mm Kerrison was used to remove any actual bone underneath. The posterior elements were then removed en bloc and this bone was stripped of soft tissue and then morselized for use in the fusion graft later. Upon removing the posterior elements, there was brisk bleeding from large epidural veins. These were cauterized using bipolar electrocautery as well as Floseal. Any remaining bone spurs that were causing compression were removed using Kerrison rongeurs. The spinal cord at this point was well decompressed. Then, 14 mm lateral mass screws were placed bilaterally into the previously made ferry pilot holes from C3 down to C6 bilaterally. Rods were measured and bent to the appropriate configuration. They were secured in place using locking cap screws. Then the remaining cortical bone from C3-C6 was decorticated using a high-speed drill. The locally harvested autograft was mixed with bone allograft and packed along these decorticated surfaces, completing the posterolateral fusion. A medium Hemovac drain was tunneled out through the patient's skin and secured in place. Closure proceeded in layers. The muscle and fascia was closed with 0 Vicryl sutures. The subcutaneous tissue was closed with inverted 2-0 Vicryl sutures. The skin was closed with deni. All sponge and needle counts were correct at the end of the procedure. Somatosensory evoked potentials and motor evoked potentials were stable throughout the entirety of the surgery. The patient was then carefully turned supine onto the operating room bed and the Murphy head clamp was removed. He was then transferred to the ICU in stable condition. PRE-OP/PRE-PROCEDURE DIAGNOSIS: C4 fracture, cervical stenosis, central cord syndrome POST-OP/POST-PROCEDU RE DIAGNOSIS: Same as Preop ESTIMATED BLOOD LOSS: 1000 mL SPECIMENS: No (more content not included)... Normal [facility] PT panel Coag (PPP)on 2023 INR Coag (PPP) [Relative time] 0.9 {INR} Normal 0.9-1.3 [facility] Comment on above: Order Comment: Speci men Type: BLOOD SPECIMENOrdering Facility: [facility] Address: [address] [place] [address] Result Comment: Rafia min K Antagonist (VKA) Therapeutic Range: INR 2 to 3 (Target INR of 2.5) Note: For patients treated with VKA drugs, such as warfarin, the [place] [employer] 2012 Guideline recommends a therapeutic INR range of 2 to 3 (target INR of 2.5). This recommendation includes high-risk patients with antiphospholipid syndrome with previous arterial or venous thromboembolism, current-generation mechanical or bioprosthetic aortic heart valve replacement. Note: Patients with mechanical aortic valve replacement and additional risk factors for thromboembolic events (atrial fibrillation, previous thromboembolism, LV dysfunction, hypercoagulable conditions) or an older generation mechanical AVR (i.e., ball in-Cage) or any mechanical MVR should have a INR therapeutic range of 2.5 to 3.5 (target INR of 3). Miguel FLOWERS, et al. Chest 2012, 141:7S-47S Cee RA, et al. [facility] 2017, 70: 252-289 Performed By: #### 1 4979-9, 77941-2 ####[facility]PORATIONIA [id number] [address] [place] PT Coag (PPP) [Time] 10.1 s Normal 9.7-13.0 [facility] Comment on above: Order Comment: Speci men Type: BLOOD SPECIMENOrdering Facility: [facility] Address: [address] [place] [address] Performed By: #### 1 4979-9, 16490-5 ####[facility]ATIONIA [id number] [address] [place] STAPHYLOCOCCUS AUREUS AND MR SA SCREEN, PCR, NASALon 01-01-2024 S. aureus and MRSA panel BOY+probe (Nose) Methicillin-SUSCEPTI BLE Staphylococcus aureus Detected Abnormal Not Detected [facility] Comment on above: Order Comment: Speci men Type: SWABOrdering Facility: [facility] Address: [address] [place] [address] Performed By: #### S APCR ####[facility]ORATORYCLIA [id number] [place] [address] [place] TOXICOLOGY SCREEN, ROUTINE U RINEon 01-01-2024 Amphetamines Confirm (U) [Mass/Vol] Negative Normal Negative [facility] Comment on above: Order Comment: Speci men Type: URINE SPECIMENOrdering Facility: [facility] Address: [address] [place] [address] Result Comment: Cuto ff threshold at 1000 ng/mL. Performed By: #### U TOX2 ####[facility]ATORYCLIA [id number] [address] [place] BARBITURATES, URINE Negative Normal Negative [facility] Comment on above: Order Comment: Speci men Type: URINE SPECIMENOrdering Facility: [facility] Address: [address] [place] [address] Result Comment: Cuto ff threshold at 200 ng/mL. Performed By: #### U TOX2 ####[facility]ATORYCLIA [id number] [place] [address] [place] BENZODIAZEPINES, UR Negative Normal Negative [facility] Comment on above: Order Comment: Speci men Type: URINE SPECIMENOrdering Facility: [facility] Address: [address] [place] [address] Result Comment: Cuto ff threshold at 200 ng/mL. Performed By: #### U TOX2 ####[facility]ATORYCLIA [id number] [address] [place] Cannabinoids Screen Ql (U) Negative Normal Negative [facility] Comment on above: Order Comment: Speci men Type: URINE SPECIMENOrdering Facility: [facility] Address: [address] [place] [address] Result Comment: Cuto ff threshold at 50 ng/mL. Performed By: #### U TOX2 ####[facility]ATORYCLIA [id number] [place] [address] [place] Cocaine Ql (U) Negative Normal Negative [facility] Comment on above: Order Comment: Speci men Type: URINE SPECIMENOrdering Facility: [facility] Address: [address] [place] [address] Result Comment: Cuto ff threshold at 300 ng/mL. Performed By: #### U TOX2 ####[facility]ORATORYCLIA [id number] [address] [place] Ethanol (U) [Mass/Vol] 78 mg/dL High <11 [facility] Comment on above: Order Comment: Speci men Type: URINE SPECIMENOrdering Facility: [facility] Address: [address] [place] [address] Performed By: #### U TOX2 ####[facility]ORATORYCLIA [id number] [address] OF [facility] Opiates Screen Ql (U) Negative Normal Negative [facility] Comment on above: Order Comment: Speci men Type: URINE SPECIMENOrdering Facility: [facility] Address: [address] [place] [address] Result Comment: Cuto ff threshold at 300 ng/mL. Performed By: #### U TOX2 ####[facility]ORATORYCLIA [id number] [address] oxyCODONE cutoff Screen (U) [Mass/Vol] Negative Normal Negative [facility] Comment on above: Order Comment: Speci men Type: URINE SPECIMENOrdering Facility: [facility] Address: [address] [place] [address] Result Comment: Cuto ff threshold at 100 ng/mL. Performed By: #### U TOX2 ####[facility]ORYCLIA [id number] [address] Phencyclidine Ql (U) Negative Normal Negative [facility] Comment on above: Order Comment: Speci men Type: URINE SPECIMENOrdering Facility: [facility] Address: [address] [place] [address] Result Comment: Cuto ff threshold at 25 ng/mL. Performed By: #### U TOX2 ####[facility]ATORYCLIA [id number] [address] [place] TYPE + SCREENon 01-01-2024 ABO A Normal [facility] Comment on above: Order Comment: Speci men Type: BLOOD SPECIMEN [facility] Address: [address] [place] [address] Performed By: #### T SCR #### [facility] CLIA [id number] [address] HISTORICAL AB SCR STATUS Negative Normal [facility] Comment on above: Order Comment: Speci men Type: BLOOD SPECIMEN [facility] Address: [address] [place] [address] Performed By: #### T SCR #### [facility] CLIA [id number] [address] Rh Nom (Bld) Negative Normal [facility] Comment on above: Order Comment: Speci men Type: BLOOD SPECIMEN [facility] Address: [address] [place] [address] Performed By: #### T SCR #### [facility] CLIA [id number] [address] TYPE AND SCREEN EXPIRATION 01/04/2024 23:59 Normal [facility] Comment on above: Order Comment: Speci men Type: BLOOD SPECIMEN [facility] Address: [address] [place] [address] Performed By: #### T SCR #### [facility] CLIA [id number] [address] XR ABDOMEN 1V SUPINEon 12-31 XR ABDOMEN 1V SUPINE * * *Final Report* * * DATE OF EXAM: Jan 01 2024 10:48PM [id number] - XR ABDOMEN 1V SUPINE / PROCEDURE REASON: Evaluate tube, line or lead position * * * * Physician Interpretation * * * * XR ABDOMEN 1V SUPINE Clinical history: Evaluate tube, line or lead position Technique: XR ABDOMEN 1V SUPINE Comparison: None Findings: Lower abdomen/pelvis excluded. Lines/Tubes: See below. Partially imaged aortobiiliac stent. Other: Bowel gas pattern is suboptimally assessed. Small pleural effusions. Impression: NG tube tip overlies the proximal stomach, side-port at the GE junction. Relocation Services Specialist: [facility] Transcribe Date/Time: Jan 02 2024 5:04A Dictated by : ALVIN FIGUEROA MD This examination was interpreted and the report reviewed and electronically signed by: ALVIN FIGUEROA MD on Jan 02 2024 5:07AM EST [id number] CN Normal [facility] XR CERVICAL 2V AP/LATon XR CERVICAL 2V AP/LAT * * *Final Report* * * DATE OF EXAM: Jan 01 2024 9:26PM [id number] - XR CERVICAL 2V AP/LAT / PROCEDURE REASON: CSPINE POSTERIOR FUSION/INSTRUMENTATI ON * * * * Physician Interpretation * * * * EXAMINATION: XR CERVICAL 2V AP/LAT HISTORY: CSPINE POSTERIOR FUSION/INSTRUMENTATI ON TECHNIQUE: XR CERVICAL 2V AP/LAT 3 intraoperative fluoroscopic images of the cervical spine COMPARISON: MRI cervical spine 06/21/2023. RESULT: See impression IMPRESSION: 3 intraoperative fluoroscopic images demonstrating placement of bilateral pedicle screws from C3-C6. Please see operative report for full details of the procedure. Total fluoroscopic time: 8 seconds Cumulative dose: 1.15 mGy Relocation Services Specialist: [facility] Transcribe Date/Time: Jan 02 2024 8:52A Dictated by : SHIV LEIVA MD This examination was interpreted and the report reviewed and electronically signed by: SHIV LEIVA MD on Jan 02 2024 8:58AM EST [id number] CN Normal [facility] XR CHEST 1V FRONTALon 2023 XR CHEST 1V FRONTAL * * *Final Report* * * DATE OF EXAM: Jan 01 2024 3:18PM [id number] - XR CHEST 1V FRONTAL / PROCEDURE REASON: Evaluate tube, line, or lead position * * * * Physician Interpretation * * * * EXAMINATION: CHEST RADIOGRAPH (SINGLE VIEW AP OR PA) CLINICAL HISTORY: Evaluate tube, line, or lead position MQ: XC1_5 Comparison: 02/18/2023 RESULT: Lines, tubes, and devices: Right subclavian central venous catheter tip is in the superior vena cava. Lungs and pleura: No visible pneumothorax.There is some continued diffuse opacity at the left hemithorax possibly indicating pleural thickening. Pleural effusion is difficult to exclude. The right lung is relatively clear. Cardiomediastinal silhouette: Heart is not enlarged. Calcified granulomata left hilum. Other: . IMPRESSION: Placement of a central venous catheter without apparent complications. Stable appearance of the heart and lungs. Relocation Services Specialist: RUDDY Transcribe Date/Time: Jan 01 2024 3:22P Dictated by : KAROL JUNG MD This examination was interpreted and the report reviewed and electronically signed by: KAROL JUNG MD on Jan 01 2024 3:23PM EST [id number] CN Normal [facility] XR VERIFY LEVEL A-DTIGY-QJol 01-01-2024 XR VERIFY LEVEL C-SPINE-NB * * *Final Report* * * DATE OF EXAM: Jan 01 2024 8:03PM AKO [id number] - XR VERIFY LEVEL C-SPINE-NB / PROCEDURE REASON: LEVEL VERIFICATION CSPINE * * * * Physician Interpretation * * * * EXAMINATION: XR VERIFY LEVEL C-SPINE-NB HISTORY: LEVEL VERIFICATION CSPINE TECHNIQUE: XR VERIFY LEVEL C-SPINE-NB single intraoperative fluoroscopic image of the cervical spine COMPARISON: MRI cervical spine 01/01/2024 RESULT: See impression IMPRESSION: Single intraoperative fluoroscopic image cervical spine with metallic instrument at the level of the C3-C4 facet. Please see operative report for full details of the procedure. Total fluoroscopic time: 11 seconds Cumulative dose: 5.38 mGy COMMUNICATION: Communicated with MANDO LING on 01/01/2024 8:08 PM via verbal communication. Relocation Services Specialist: RUDDY Transcribe Date/Time: Jan 01 2024 8:07P Dictated by : SHIV LEIVA MD This examination was interpreted and the report reviewed and electronically signed by: SHIV LEIVA MD on Jan 01 2024 8:08PM EST [id number] CN Normal [facility] aPTT PPPon 01-01-2024 aPTT Coag (PPP) [Time] 27.4 s Normal 23.0-32.4 [facility] Comment on above: Order Comment: Speci men Type: BLOOD SPECIMENOrdering Facility: [facility] Address: [address] [place] [address] Performed By: #### 1 [id number], [id number] ####[facility] LABORATORYCLIA [id number] [address] STATES OF [facility] CT Head WO contraston 2023 IMPRESSION: No acute intracranial pathology. Right frontal scalp hematoma without underlying fracture. Relocation Services Specialist: RUDDY Transcribe Date/Time: Dec 03 2023 1:26P Dictated by : SHANTAL JAY MD This examination was interpreted and the report reviewed and electronically signed by: SHANTAL JAY MD on Dec 03 2023 1:31PM [facility] DIVISION OF RADIOLOGY * * *Final Report* * * DATE OF EXAM: Dec 03 2023 1:24PM [facility] 0504 - CT BRAIN WO IVCON / PROCEDURE REASON: multiple diagnoses * * * * Physician Interpretation * * * * EXAMINATION: CT BRAIN WO IVCON CLINICAL HISTORY: Head trauma 24 hours ago, on blood thinners TECHNIQUE: Serial axial images without IV contrast were obtained from the vertex to the foramen magnum. MQ: CTBWO_3 CT Radiation dose: Integrated Dose-Length Product (DLP) for this visit = 719 mGy*cm CT Dose Reduction Employed: Automated exposure control(AEC) and iterative recon COMPARISON: Head CT, 02/19/2023 RESULT: Localizer images: None Post-operative change: None. Acute change: No evidence of an acute infarct or other acute parenchymal process. Hemorrhage: No evidence of acute intracranial hemorrhage. ECASS hemorrhagic transformation score: Not Applicable Mass Lesion / Mass Effect: There is no evidence of an intracranial mass or extraaxial fluid collection. No significant mass effect. Chronic change: Patchy nonspecific low attenuation the white matter, similar to previous and likely secondary to chronic small vessel ischemic disease. Parenchyma: Generalized protocol volume loss, unchanged. The brain parenchyma is otherwise within normal limits for age. Ventricles: Ventricular enlargement concordant with the degree of parenchymal volume loss. Paranasal sinuses and skull base: Bilateral lens replacements are again noted. Scattered paranasal sinus mucosal thickening. Soft tissue swelling and increased attenuation of the subcutaneous fat in the right frontal scalp, new from previous. The skull base and imaged soft tissues are otherwise unremarkable. DIVISION OF RADIOLOGY Provider, [facility] [place] - 12/03/2023 * * *Final Report* * * DATE OF EXAM: Dec 03 2023 1:24PM [facility] 0504 - CT BRAIN WO IVCON / PROCEDURE REASON: multiple diagnoses * * * * Physician Interpretation * * * * EXAMINATION: CT BRAIN WO IVCON CLINICAL HISTORY: Head trauma 24 hours ago, on blood thinners TECHNIQUE: Serial axial images without IV contrast were obtained from the vertex to the foramen magnum. MQ: CTBWO_3 CT Radiation dose: Integrated Dose-Length Product (DLP) for this visit = 719 mGy*cm CT Dose Reduction Employed: Automated exposure control(AEC) and iterative recon COMPARISON: Head CT, 02/19/2023 RESULT: Localizer images: None Post-operative change: None. Acute change: No evidence of an acute infarct or other acute parenchymal process. Hemorrhage: No evidence of acute intracranial hemorrhage. ECASS hemorrhagic transformation score: Not Applicable Mass Lesion / Mass Effect: There is no evidence of an intracranial mass or extraaxial fluid collection. No significant mass effect. Chronic change: Patchy nonspecific low attenuation the white matter, similar to previous and likely secondary to chronic small vessel ischemic disease. Parenchyma: Generalized protocol volume loss, unchanged. The brain parenchyma is otherwise within normal limits for age. Ventricles: Ventricular enlargement concordant with the degree of parenchymal volume loss. Paranasal sinuses and skull base: Bilateral lens replacements are again noted. Scattered paranasal sinus mucosal thickening. Soft tissue swelling and increased attenuation of the subcutaneous fat in the right frontal scalp, new from previous. The skull base and imaged soft tissues are otherwise unremarkable. IMPRESSION IMPRESSION: No acute intracranial pathology. Right frontal scalp hematoma without underlying fracture. Relocation Services Specialist: [facility] Transcribe Date/Time: Dec 03 2023 1:26P Dictated by : SHANTAL JAY MD This examination was interpreted and the report reviewed and electronically signed by: SHANTAL JAY MD on Dec 03 2023 1:31PM EST [facility] Radiology Study observation (narrative) Sonia cedeno [facility] CT Head WO contrastOrdered B y: [facility] Provider on 12-03-2023 [facility] Comprehensive metabolic 2000 panelon 12-03-2023 Albumin [Mass/Vol] 3.3 g/dL Low 3.9 - 4.9 g/dL [facility] ALP [Catalytic activity/Vol] 134 U/L High 38 - 113 U/L [facility] ALT [Catalytic activity/Vol] 10 U/L 10 - 54 U/L [facility] Anion gap [Moles/Vol] 14 mmol/L 8 - 15 mmol/L [facility] AST [Catalytic activity/Vol] 16 U/L 14 - 40 U/L [facility] Bilirubin [Mass/Vol] 0.2 mg/dL 0.2 - 1 .3 mg/dL [facility] Calcium [Mass/Vol] 9.1 mg/dL 8.5 - 10. 2 mg/dL [facility] Chloride [Moles/Vol] 106 mmol/L 98 - 10 7 mmol/L [facility] CO2 [Moles/Vol] 23 mmol/L 22 - 30 mmol/L [facility] Creatinine [Mass/Vol] 0.93 mg/dL 0.73 - 1.22 mg/dL [facility] GFR/1.73 sq M.predicted among non-blacks MDRD (S/P/Bld) [Vol rate/Area] 84 mL/min/{1.73_m2} - PINF [facility] Comment on above: Estimated Glomerular Filtration Rate (eGFR) is calculated using the 2020 CKD-EPI creatinine equation. This equation utilizes serum creatinine, sex, and age as parameters. The creatinine assay has traceable calibration to isotope dilution-mass spectrometry. Refer to KDIGO guidelines for clinical interpretation. In patients with unstable renal function, e.g. those with acute kidney injury, the eGFR may not accurately reflect actual GFR. Glucose [Mass/Vol] 93 mg/dL 74 - 99 mg/dL [facility] Comment on above: The [place] Diabete s Association (ADA) provides guidance for cutoff values for fasting glucose and random glucose. The ADA defines fasting as no caloric intake for at least 8 hours. Fasting plasma glucose results between 100 to 125 [...] Standards of Medical Care in Diabetes 2016, [place] Diabetes Association. Diabetes Care. 2016.39(Suppl 1). Potassium [Moles/Vol] 4.1 mmol/L 3.7 - 5.1 mmol/L [facility] Protein [Mass/Vol] 7.0 g/dL 6.3 - 8.0 g/dL [facility] Sodium [Moles/Vol] 143 mmol/L 136 - 144 mmol/L [facility] Urea nitrogen [Mass/Vol] 8 mg/dL Low 9 - 24 mg/dL [facility] LIPID PANEL, NONFASTINGon Cholesterol [Mass/Vol] 197 mg/dL NINF - 200 mg/dL [facility] Comment on above: <200 mg/dL, Desirabl e 200-239 mg/dL, Borderline high >239 mg/dL, High HDL Cholesterol, Nonfasting 61 mg/dL 39 - PINF mg/dL [facility] Comment on above: 40-59 mg/dL, Accepta ble >59 mg/dL, High: Negative risk factor for coronary heart disease <40 mg/dL, Low: Positive risk factor for coronary heart disease LDL Cholesterol, Nonfasting 112 mg/dL High NINF - 100 mg/dL [facility] Comment on above: <100 mg/dL, Optimal 100-129 mg/dL, Near optimal/above optimal 130-159 mg/dL, Borderline high 160-189 mg/dL, High >189 mg/dL, Very high Secondary prevention optimal LDL Cholesterol levels are recommended to be < 70 mg/dL LDL/HDL Ratio, Nonfasting 1.84 mg/dL NINF - 2.54 mg/dL [facility] Comment on above: Reference: 1. National Cholesterol Education Program ATP III Guideline At-A-Glance Quick Desk Reference: National Heart, Lung, and Blood [place]. National Institutes of Health. 2001: NIH Publication No. 01-3305. 2. An International Atherosclerosis Society position paper: global recommendations for the management of dyslipidemia: executive summary, Atherosclerosis. 2014: 232(2):410-413. Non HDL Cholesterol, Nonfasting 136 mg/dL High NINF - 130 mg/dL [facility] Comment on above: <130 mg/dL, Optimal 130-159 mg/dL, Near optimal/above optimal 160-189 mg/dL, Borderline high 190-219 mg/dL, High >219 mg/dL, Very high Secondary prevention optimal non HDL Cholesterol levels are recommended to be <100 mg/dL Total Chol/HDL Ratio, Nonfasting 3.23 mg/dL NINF - 5.10 mg/dL [facility] Triglycerides, Nonfasting 122 mg/dL NINF - 150 mg/dL [facility] Comment on above: <150 mg/dL, Normal 150-199 mg/dL, Borderline high 200-499 mg/dL, High >499 mg/dL, Very high VLDL Cholesterol, Nonfasting 24 mg/dL NINF - 30 mg/dL [facility] No Panel Informationon 12-02 Interpretation and review of laboratory results Abnormal [facility] CBC W Auto Differential pane l (Bld)on 12-02-2023 Basophils (Bld) [#/Vol] 0.03 10*3/uL [facility] Basophils/100 WBC (Bld) 0.6 % [facility] Differential cell count method Nom (Bld) Auto [facility] Eosinophils (Bld) [#/Vol] 0.09 10*3/uL [facility] Eosinophils/100 WBC (Bld) 1.7 % [facility] Erythrocyte distribution width (RBC) [Ratio] 15.0 % 11.5 - 15.0 % [facility] Hematocrit (Bld) [Volume fraction] 36.5 % Low 39.0 - 51.0 % [facility] Hemoglobin (Bld) [Mass/Vol] 10.9 g/dL Low 13.0 - 17.0 g/dL [facility] Immature granulocytes (Bld) [#/Vol] 0.03 10*3/uL [facility] Immature granulocytes/100 WBC (Bld) 0.6 % [facility] Interpretation and review of laboratory results Abnormal [facility] Lymphocytes (Bld) [#/Vol] 1.11 10*3/uL [facility] Lymphocytes/100 WBC (Bld) 21.5 % [facility] MCH (RBC) [Entitic mass] 26.7 pg 26.0 - 34.0 pg [facility] MCHC (RBC) [Mass/Vol] 29.9 g/dL Low 30.5 - 36.0 g/dL [facility] MCV (RBC) [Entitic vol] 89.5 fL 80.0 - 100.0 fL [facility] Monocytes (Bld) [#/Vol] 0.39 10*3/uL [facility] Monocytes/100 WBC (Bld) 7.6 % [facility] Neutrophils (Bld) [#/Vol] 3.51 10*3/uL [facility] Neutrophils/100 WBC (Bld) 68.0 % [facility] Nucleated RBC (Bld) [#/Vol] NINF [facility] Nucleated RBC/100 WBC (Bld) [Ratio] 0.0 % /100 WBC [facility] Platelet mean volume (Bld) [Entitic vol] 10.7 fL 9.0 - 12.7 fL [facility] Platelets (Bld) [#/Vol] 273 10*3/uL [facility] RBC (Bld) [#/Vol] 4.08 10*6/uL Low 4.20 - 6.0 0 m/uL [facility] WBC (Bld) [#/Vol] 5.16 10*3/uL [facility] XR Ribs - right Views and est PAon 02-20-2023 IMPRESSION: Minimally displaced anterior right eighth through 10th rib fractures. Small right pleural effusion/pleural thickening. No definite pneumothorax. Relocation Services Specialist: RUDDY Transcribe Date/Time: Feb 20 2023 11:08A Dictated by : MATTY MARTÍNEZ MD This examination was interpreted and the report reviewed and electronically signed by: MATTY MARTÍNEZ MD on Feb 20 2023 11:12AM [facility] DIVISION OF RADIOLOGY * * *Final Report* * * DATE OF EXAM: Feb 18 2023 4:42PM WOX [id number] - XR RIB/CHST 3V AP RIB/OBL/CHST R / PROCEDURE REASON: multiple diagnoses * * * * Physician Interpretation * * * * EXAM(s): XR RIB/CHST 3V AP RIB/OBL/CHST R EXAM DATE/TIME: 02/18/2023 4:42 PM HISTORY: 77 years old Clinical information: Fall in home, initial encounter Fall in home, initial encounter Rib pain on right side Anterior right lower rib pain following a fall in the shower x 1 week ago. ATTN right lower anterior ribs after fall TECHNIQUE: Images: XR RIB/CHST 3V AP RIB/OBL/CHST R Comparison: Chest radiograph 07/20/2021 RESULT: Findings: Bone density appears well-preserved. Minimally displaced acute anterior right eighth through 10th rib fractures. There is underlying pleural thickening/small pleural effusion. No definite pneumothorax. Aortic stent graft partially imaged. Calcified left hilar granuloma. DIVISION OF RADIOLOGY Provider, [facility] [place] - 02/20/2023 * * *Final Report* * * DATE OF EXAM: Feb 18 2023 4:42PM WOX 5244 - XR RIB/CHST 3V AP RIB/OBL/CHST R / PROCEDURE REASON: multiple diagnoses * * * * Physician Interpretation * * * * EXAM(s): XR RIB/CHST 3V AP RIB/OBL/CHST R EXAM DATE/TIME: 02/18/2023 4:42 PM HISTORY: 77 years old Clinical information: Fall in home, initial encounter Fall in home, initial encounter Rib pain on right side Anterior right lower rib pain following a fall in the shower x 1 week ago. ATTN right lower anterior ribs after fall TECHNIQUE: Images: XR RIB/CHST 3V AP RIB/OBL/CHST R Comparison: Chest radiograph 07/20/2021 RESULT: Findings: Bone density appears well-preserved. Minimally displaced acute anterior right eighth through 10th rib fractures. There is underlying pleural thickening/small pleural effusion. No definite pneumothorax. Aortic stent graft partially imaged. Calcified left hilar granuloma. IMPRESSION IMPRESSION: Minimally displaced anterior right eighth through 10th rib fractures. Small right pleural effusion/pleural thickening. No definite pneumothorax. Relocation Services Specialist: [facility] Transcribe Date/Time: Feb 20 2023 11:08A Dictated by : MATTY MARTÍNEZ MD This examination was interpreted and the report reviewed and electronically signed by: MATTY MARTÍNEZ MD on Feb 20 2023 11:12AM EST [facility] XR Ribs - right Views and Ch est PAOrdered By: [facility]cf Provider on 02-20-2023 [facility] CBC W Auto Differential pane l (Bld)on 02-19-2023 Basophils (Bld) [#/Vol] 0.03 10*3/uL <0.11 k/uL [facility] Basophils/100 WBC (Bld) 0.3 % [facility] Differential cell count method Nom (Bld) Auto [facility] Eosinophils (Bld) [#/Vol] 0.07 10*3/uL <0.46 k/uL [facility] Eosinophils/100 WBC (Bld) 0.7 % [facility] Erythrocyte distribution width (RBC) [Ratio] 14.2 % 11.5 - 15.0 % [facility] Hematocrit (Bld) [Volume fraction] 41.3 % 39.0 - 51.0 % [facility] Hemoglobin (Bld) [Mass/Vol] 13.0 g/dL 13.0 - 17.0 g/dL [facility] Immature granulocytes (Bld) [#/Vol] 0.04 10*3/uL <0.10 k/uL [facility] Immature granulocytes/100 WBC (Bld) 0.4 % [facility] Lymphocytes (Bld) [#/Vol] 0.87 10*3/uL Low 1.00 - 4.00 k/uL [facility] Lymphocytes/100 WBC (Bld) 8.7 % [facility] MCH (RBC) [Entitic mass] 28.9 pg 26.0 - 34.0 pg [facility] MCHC (RBC) [Mass/Vol] 31.5 g/dL 30.5 - 36.0 g/dL [facility] MCV (RBC) [Entitic vol] 91.8 fL 80.0 - 100.0 fL [facility] Monocytes (Bld) [#/Vol] 0.91 10*3/uL High <0.87 k/uL [facility] Monocytes/100 WBC (Bld) 9.1 % [facility] Neutrophils (Bld) [#/Vol] 8.04 10*3/uL High 1.45 - 7.50 k/uL [facility] Neutrophils/100 WBC (Bld) 80.8 % [facility] Nucleated RBC (Bld) [#/Vol] <0.01 k/uL [facility] Nucleated RBC/100 WBC (Bld) [Ratio] 0.0 /100 WBC [facility] Platelet mean volume (Bld) [Entitic vol] 10.5 fL 9.0 - 12.7 fL [facility] Platelets (Bld) [#/Vol] 251 10*3/uL 150 - 400 k/uL [facility] RBC (Bld) [#/Vol] 4.50 10*6/uL 4.20 - 6.0 0 m/uL [facility] WBC (Bld) [#/Vol] 9.96 10*3/uL 3.70 - 11.00 k/uL [facility] No Panel Informationon 02-19 [facility] XR RIBS/CHEST 3V AP RIB/OBLS /CXR RIGHTon 02-18-2023 [facility] XR Ribs - right Views and Ch est PAon 02-18-2023 Radiology Study observation (narrative) [facility] Absolute lymphocyte countOrd ered By: Igor Ge on 01-16-2023 Lymphocytes Auto (Unsp spec) [#/Vol] 1.22 10*3/uL 0.83-4.51 [facility] Basophil percentageOrdered B y: Iogr Ge on 01-16-2023 Basophils/100 WBC (Bld) 0.6 % 0-1 [facility] Bilirubin [Mass/Vol] 0.30 mg/dL 0.20-1.00 [facility] Comment on above: For patients on eltr ombopag therapy, use of Dimension [place] TBIL is not recommended. Chloride [Moles/Vol] 105 mmol/L 98-107 [facility] Eosinophils/100 WBC (Bld) 5.6 % 0-5 [facility] Glucose [Mass/Vol] 105 mg/dL 74-106 [facility] Comment on above: Fasting Glucose resu lt from 100 to 125 mg/dL suggests IMPAIRED HOMEOSTASIS per A.D.A. criteria. Neutrophils (Bld) [#/Vol] 6.3 10*3/uL 2.0-7.7 [facility] Neutrophils/100 WBC (Bld) 71.8 % 47-70 [facility] Potassium [Moles/Vol] 4.5 mmol/L 3.5-5.1 [facility] Protein [Mass/Vol] 8.2 g/dL 6.4-8.2 [facility] Sodium [Moles/Vol] 138 mmol/L 136-145 [facility] WBC (Bld) [#/Vol] 8.7 10*3/uL 4.4-11.0 [facility] Blood erythrocytes count (nu mber/volume)Ordered By: Igor Ge on 01-16-2023 RBC (Bld) [#/Vol] 4.54 10*6/uL 4.6-6.2 [facility] Blood hemoglobin measurement (mass/volume)Ordered By: Igor Ge on 01-16-2023 Hemoglobin (Bld) [Mass/Vol] 13.4 g/dL 13.0-16.5 [facility] Blood lymphocytes/100 leukoc ytesOrdered By: Igor Ge on 01-16-2023 Lymphocytes/100 WBC (Bld) 14.0 % 19-41 [facility] Blood monocytes/100 leukocyt esOrdered By: gIor Ge on 01-16-2023 Monocytes/100 WBC (Bld) 7.8 % 0-10 [facility] Blood platelet mean volumeOr dered By: Igor Ge on 01-16-2023 Platelet mean volume (Bld) [Entitic vol] 9.6 fL 6.2-12.0 [facility] Determination of erythrocyte mean corpuscular volume (MCV)Ordered By: Igor Ge on 01-16-2023 MCV (RBC) [Entitic vol] 93.8 fL 80-94 [facility] Hematocrit Auto (Bld) [Volum e fraction]Ordered By: Igor Ge on 01-16-2023 Hematocrit (Bld) [Volume fraction] 42.6 % 40-54 [facility] Laboratory - Chemistry and C hemistry - challengeOrdered By: Igor Ge on 01-16-2023 ALP [Catalytic activity/Vol] 154 U/L 45-117 [facility] ALT [Catalytic activity/Vol] 16 U/L 16-61 [facility] CO2 [Moles/Vol] 31.0 mmol/L 21.0-32.0 [facility] Globulin (S) [Mass/Vol] 5.2 g/dL 2.2-4.2 [facility] Natriuretic peptide B (Bld) [Mass/Vol] 46.4 pg/mL 0-100 [facility] Urea nitrogen/Creatinine [Mass ratio] 11.7 mg/mg 10-20 [facility] - Hematology and Cell countsOrdered By: Igor Ge on 01-16-2023 Erythrocyte distribution width (RBC) [Entitic vol] 49.8 fL 35.1-43.9 [facility] Erythrocyte distribution width (RBC) [Ratio] 14.5 % 11.6-14.6 [facility] Immature granulocytes/100 WBC (Bld) 0.200 % 0.0-0.9 [facility] Comment on above: IG% - Immature Granu locytes (promyelocytes, myelocytes and metamyelocytes) > 1% indicates that a LEFT SHIFT is Present. MCH (RBC) [Entitic mass] 29.5 pg 27.0-32.0 [facility] Nucleated RBC/100 WBC (Bld) [Ratio] 0 % 0-5 [facility] MCHC Auto (RBC) [Mass/Vol]Or dered By: Igor Ge on 01-16-2023 MCHC (RBC) [Mass/Vol] 31.5 g/dL 32-36 [facility] No Panel InformationOrdered By: Igor Ge on 01-16-2023 Estimated GFR (MDRD) Amer 83 mL/min >60 [facility] Comment on above: GFR Calc Estimated GFR (MDRD) Non-Af Amer 68 mL/min >60 [facility] Comment on above: Non- GFR Calc Platelets bldOrdered By: Lyndon Ge on 01-16-2023 Platelets (Bld) [#/Vol] 277 10*3/uL 150-450 [facility] Serum or plasma albumin eddie urement (mass/volume)Ordered By: Igor Ge on 01-16-2023 Albumin [Mass/Vol] 3.0 g/dL 3.2-5.0 [facility] Serum or plasma albumin/glob ulin mass ratioOrdered By: Igor Ge on 01-16-2023 Albumin/Globulin [Mass ratio] 0.6 {ratio} 0.9-2.4 [facility] Serum or plasma calcium eddie urement (mass/volume)Ordered By: Igor Ge on 01-16-2023 Calcium [Mass/Vol] 8.9 mg/dL 8.5-10.1 [facility] Serum or plasma creatinine m easurement (mass/volume)Ordered By: Igor Ge on 01-16-2023 Creatinine [Mass/Vol] 1.11 mg/dL 0.70-1.30 [facility] Comment on above: The validity of the calculated GFR & GFRAA in patients over 70 years has not been determined. Clinical correlation is essential. Serum or plasma urea nitroge n measurement (mass/volume)Ordered By: Igor Ge on 01-16-2023 Urea nitrogen [Mass/Vol] 13 mg/dL 7-18 [facility] Thin prep Papanicolaou smear with manual screeningOrdered By: Igor Ge on 01-16-2023 Thin prep Papanicolaou smear with manual screening 16 U/L 15-37 [facility] Thin prep Papanicolaou smear with manual screening 2 5-15 [facility] XR CHEST 2V FRONTAL/LATon [facility] XR Chest PA and Lateralon IMPRESSION: Resolution of subcutaneous emphysema. No developing acute findings are identified Relocation Services Specialist: RUDDY Transcribe Date/Time: Jan 16 2023 4:30P Dictated by : GERARDO HOFFMAN MD This examination was interpreted and the report reviewed and electronically signed by: GERARDO HOFFMAN MD on Jan 16 2023 4:43PM [facility] DIVISION OF RADIOLOGY * * *Final Report* * * DATE OF EXAM: Jan 16 2023 4:17PM WOX 5291 - XR CHEST 2V FRONTAL/LAT / PROCEDURE REASON: CHAU (dyspnea on exertion) * * * * Physician Interpretation * * * * EXAMINATION: CHEST RADIOGRAPH (2 VIEW FRONTAL & LATERAL) CLINICAL HISTORY: CHAU (dyspnea on exertion) MQ: XC2_6 EXAM DATE/TIME: 01/16/2023 4:17 PM COMPARISON: 07/20/2021 RESULT: Lines, tubes, and devices: None. Lungs and pleura: There is bilateral pleural thickening which appears similar to the prior study. Reticular densities are noted near the lung bases suggestive of scarring. A small calcified pulmonary nodule is noted in the mid left lung consistent with a granuloma. Cardiomediastinal silhouette: Stable cardiomediastinal silhouette. There is a calcified lymph node in the AP window region. Bones and soft tissues: Degenerative changes are noted in the thoracic spine. An old right seventh rib fracture is noted.. The previously noted subcutaneous emphysema has resolved. DIVISION OF RADIOLOGY Provider, [facility] [place] - 01/16/2023 * * *Final Report* * * DATE OF EXAM: Jan 16 2023 4:17PM WOX 5291 - XR CHEST 2V FRONTAL/LAT / PROCEDURE REASON: CHAU (dyspnea on exertion) * * * * Physician Interpretation * * * * EXAMINATION: CHEST RADIOGRAPH (2 VIEW FRONTAL & LATERAL) CLINICAL HISTORY: CHAU (dyspnea on exertion) MQ: XC2_6 EXAM DATE/TIME: 01/16/2023 4:17 PM COMPARISON: 07/20/2021 RESULT: Lines, tubes, and devices: None. Lungs and pleura: There is bilateral pleural thickening which appears similar to the prior study. Reticular densities are noted near the lung bases suggestive of scarring. A small calcified pulmonary nodule is noted in the mid left lung consistent with a granuloma. Cardiomediastinal silhouette: Stable cardiomediastinal silhouette. There is a calcified lymph node in the AP window region. Bones and soft tissues: Degenerative changes are noted in the thoracic spine. An old right seventh rib fracture is noted.. The previously noted subcutaneous emphysema has resolved. IMPRESSION IMPRESSION: Resolution of subcutaneous emphysema. No developing acute findings are identified Relocation Services Specialist: RUDDY Transcribe Date/Time: Jan 16 2023 4:30P Dictated by : GERARDO HOFFMAN MD This examination was interpreted and the report reviewed and electronically signed by: GERARDO HOFFMAN MD on Jan 16 2023 4:43PM EST [facility] Radiology Study observation (narrative) Sonia cedeno [facility] XR Chest PA and LateralOrder ed By: [facility]cf Provider on 01-16-2023 [facility] Comprehensive metabolic 2000 panelon 07-05-2022 Albumin [Mass/Vol] 4.1 g/dL 3.9 - 4.9 g/dL [facility] ALP [Catalytic activity/Vol] 104 U/L 38 - 113 U/L [facility] ALT [Catalytic activity/Vol] 12 U/L 10 - 54 U/L [facility] Anion gap [Moles/Vol] 10 mmol/L 9 - 18 mmol/L [facility] AST [Catalytic activity/Vol] 19 U/L 14 - 40 U/L [facility] Bilirubin [Mass/Vol] 0.4 mg/dL 0.2 - 1 .3 mg/dL [facility] Calcium [Mass/Vol] 9.2 mg/dL 8.5 - 10. 2 mg/dL [facility] Chloride [Moles/Vol] 101 mmol/L 97 - 10 5 mmol/L [facility] CO2 [Moles/Vol] 27 mmol/L 22 - 30 mmol/L [facility] Creatinine [Mass/Vol] 0.95 mg/dL 0.73 - 1.22 mg/dL [facility] Estimated Glomerular Filtration Rate 82 mL/min/1.73m >=60 mL/min/1.73 m [facility] Glucose [Mass/Vol] 112 mg/dL High 74 - 99 mg/dL [facility] Potassium [Moles/Vol] 3.9 mmol/L 3.7 - 5.1 mmol/L [facility] Protein [Mass/Vol] 7.5 g/dL 6.3 - 8.0 g/dL [facility] Sodium [Moles/Vol] 138 mmol/L 136 - 144 mmol/L [facility] Urea nitrogen [Mass/Vol] 8 mg/dL Low 9 - 24 mg/dL [facility] CBC W Auto Differential pane l (Bld)on 07-04-2022 Basophils (Bld) [#/Vol] 0.04 10*3/uL <0.11 k/uL [facility] Basophils/100 WBC (Bld) 0.5 % [facility] Differential cell count method Nom (Bld) Auto [facility] Eosinophils (Bld) [#/Vol] 0.14 10*3/uL <0.46 k/uL [facility] Eosinophils/100 WBC (Bld) 1.9 % [facility] Erythrocyte distribution width (RBC) [Ratio] 12.5 % 11.5 - 15.0 % [facility] Hematocrit (Bld) [Volume fraction] 43.2 % 39.0 - 51.0 % [facility] Hemoglobin (Bld) [Mass/Vol] 14.0 g/dL 13.0 - 17.0 g/dL [facility] Immature granulocytes (Bld) [#/Vol] <0.10 k/uL [facility] Immature granulocytes/100 WBC (Bld) 0.1 % [facility] Lymphocytes (Bld) [#/Vol] 1.01 10*3/uL 1.00 - 4.00 k/uL [facility] Lymphocytes/100 WBC (Bld) 13.4 % [facility] MCH (RBC) [Entitic mass] 30.8 pg 26.0 - 34.0 pg [facility] MCHC (RBC) [Mass/Vol] 32.4 g/dL 30.5 - 36.0 g/dL [facility] MCV (RBC) [Entitic vol] 94.9 fL 80.0 - 100.0 fL [facility] Monocytes (Bld) [#/Vol] 0.50 10*3/uL <0.87 k/uL [facility] Monocytes/100 WBC (Bld) 6.6 % [facility] Neutrophils (Bld) [#/Vol] 5.83 10*3/uL 1.45 - 7.50 k/uL [facility] Neutrophils/100 WBC (Bld) 77.5 % [facility] Nucleated RBC (Bld) [#/Vol] <0.01 k/uL [facility] Nucleated RBC/100 WBC (Bld) [Ratio] 0.0 /100 WBC [facility] Platelet mean volume (Bld) [Entitic vol] 10.6 fL 9.0 - 12.7 fL [facility] Platelets (Bld) [#/Vol] 196 10*3/uL 150 - 400 k/uL [facility] RBC (Bld) [#/Vol] 4.55 10*6/uL 4.20 - 6.0 0 m/uL [facility] WBC (Bld) [#/Vol] 7.53 10*3/uL 3.70 - 11.00 k/uL [facility] Absolute lymphocyte counton 03-26-2022 Lymphocytes Auto (Unsp spec) [#/Vol] 1.33 10*3/uL 0.83-4.51 [facility] Work Phone: Basophil percentageon 2021 Basophils/100 WBC (Bld) 0.4 % 0-1 [facility] Work Phone: Chloride [Moles/Vol] 110 mmol/L 98-107 [facility]: Eosinophils/100 WBC (Bld) 2.7 % 0-5 [facility] Work Phone: Glucose [Mass/Vol] 108 mg/dL 74-106 [facility]: Comment on above: Fasting Glucose resu lt from 100 to 125 mg/dL suggests IMPAIRED HOMEOSTASIS per A.D.A. criteria. Lactate [Moles/Vol] 3.5 mmol/L 0.4-2.0 [facility] Work Phone: Comment on above: Critical Result(s) C alled at: 03:06:36 03/26/2022 by: Thien ARMENTA RN (ED) Results read back by same. Neutrophils (Bld) [#/Vol] 3.3 10*3/uL 2.0-7.7 [facility] Work Phone: Neutrophils/100 WBC (Bld) 62.3 % 47-70 [facility] Work Phone: Potassium [Moles/Vol] 3.6 mmol/L 3.5-5.1 [facility] Work Phone: Sodium [Moles/Vol] 143 mmol/L 136-145 [facility] Work Phone: WBC (Bld) [#/Vol] 5.3 10*3/uL 4.4-11.0 [facility] Work Phone: Blood erythrocytes count (nu mber/volume)on 03-26-2022 RBC (Bld) [#/Vol] 3.73 10*6/uL 4.6-6.2 [facility] Work Phone: Blood hemoglobin measurement (mass/volume)on 03-26-2022 Hemoglobin (Bld) [Mass/Vol] 12.2 g/dL 13.0-16.5 [facility] Work Phone: Blood lymphocytes/100 leukoc yteson 03-26-2022 Lymphocytes/100 WBC (Bld) 25.3 % 19-41 [facility] Work Phone: Blood monocytes/100 leukocyt eson 03-26-2022 Monocytes/100 WBC (Bld) 9.1 % 0-10 [facility] Work Phone: Blood platelet mean volumeon 03-26-2022 Platelet mean volume (Bld) [Entitic vol] 9.1 fL 6.2-12.0 [facility] Work Phone: Determination of erythrocyte mean corpuscular volume (MCV)on 03-26-2022 MCV (RBC) [Entitic vol] 101.1 fL 80-94 [facility] Work Phone: Hematocrit Auto (Bld) [Volum e fraction]on 03-26-2022 Hematocrit (Bld) [Volume fraction] 37.7 % 40-54 [facility] Work Phone: Laboratory - Chemistry and C hemistry - challengeon 03-26-2022 CO2 [Moles/Vol] 26.0 mmol/L 21.0-32.0 [facility] Work Phone: Urea nitrogen/Creatinine [Mass ratio] 12.7 mg/mg 10- [facility] Work Phone: Laboratory - Hematology and Cell countson 03-26-2022 Erythrocyte distribution width (RBC) [Entitic vol] 51.1 fL 35.1-43.9 [facility] Work Phone: Erythrocyte distribution width (RBC) [Ratio] 13.7 % 11.6-14.6 [facility] Work Phone: Immature granulocytes/100 WBC (Bld) 0.200 % 0.0-0.9 [facility] Work Phone: Comment on above: IG% - Immature Granu locytes (promyelocytes, myelocytes and metamyelocytes) > 1% indicates that a LEFT SHIFT is Present. MCH (RBC) [Entitic mass] 32.7 pg 27.0-32.0 [facility] Work Phone: Nucleated RBC/100 WBC (Bld) [Ratio] 0 % 0-5 [facility] Work Phone: MCHC Auto (RBC) [Mass/Vol]on 03-26-2022 MCHC (RBC) [Mass/Vol] 32.4 g/dL 32-36 [facility] Work Phone: No Panel Informationon 03-26 Estimated Creatinine Clearance Calc 81.63 ml/min [facility] Work Phone: Estimated GFR (MDRD) Amer 110 mL/min >60 [facility] Work Phone: Comment on above: GFR Calc Estimated GFR (MDRD) Non-Af Amer 91 mL/min >60 [facility] Work Phone: Comment on above: Non- GFR Calc Ethyl Alcohol Level 118.0 mg/dL [facility] Work Phone: Comment on above: The serum:whole bloo d ethanol ratio is approximately 1.14and varies slightly with hematocrit. Medical Alcohol reference interval and critical value innon-tolerant individuals; 50 - 100 Impairment 100 Intoxication 100 - 250 Severe Poisoning 250 - 400 Deep/possible fatal coma Platelets bldon 03-26-2022 Platelets (Bld) [#/Vol] 181 10*3/uL 150-450 [facility] Work Phone: Serum or plasma calcium eddie urement (mass/volume)on 03-26-2022 Calcium [Mass/Vol] 8.1 mg/dL 8.5-10.1 [facility] Work Phone: Serum or plasma creatinine m easurement (mass/volume)on 03-26-2022 Creatinine [Mass/Vol] 0.87 mg/dL 0.70-1.30 [facility] Work Phone: Comment on above: The validity of the calculated GFR & GFRAA in patients over 70 years has not been determined. Clinical correlation is essential. Serum or plasma urea nitroge n measurement (mass/volume)on 03-26-2022 Urea nitrogen [Mass/Vol] 11 mg/dL 7-18 [facility] Work Phone: Thin prep Papanicolaou smear with manual screeningon 03-26-2022 Thin prep Papanicolaou smear with manual screening 7 - [facility] Work Phone: No Panel Informationon 02-14 [facility] UA DIP, URINE (POC)on 2021 BILIRUBIN UA (POCT) Small Abnormal Negative [facility] CLARITY UA (POCT) Slightly Cloudy Cl [facility] COLOR UA (POCT) Dark yellow [facility] GLUCOSE UA (POCT) Negative Negative mg/dL [facility] HEMOGLOBIN/BLOOD UA (POCT) Negative Negative [facility] KETONE UA (POCT) Negative Negative mg/dL [facility] LEUKOCYTES UA (POCT) Small Abnormal Negative [facility] NITRITE UA (POCT) Negative Negative [facility] PH UA (POCT) 6.0 4.5 - 8.0 [facility] Protein Ql (U) Trace Abnormal Negative mg/dL [facility] SPECIFIC GRAVITY UA (POCT) 1.025 1.005 - 1.030 [facility] UROBILINOGEN UA (POCT) 1.0 E.U./dL Kiah l E.U./dL [facility] CBC W Auto Differential pane l (Bld)on 10-24-2021 Abs Immature Gran <0.03 <0.10 k/uL [facility] Basophils (Bld) [#/Vol] 0.05 10*3/uL <0.11 k/uL [facility] Basophils/100 WBC (Bld) 0.7 % [facility] Differential cell count method Nom (Bld) Auto [facility] Eosinophils (Bld) [#/Vol] 0.14 10*3/uL <0.46 k/uL [facility] Eosinophils/100 WBC (Bld) 1.9 % [facility] Erythrocyte distribution width (RBC) [Ratio] 14.3 % 11.5 - 15.0 % [facility] Hematocrit (Bld) [Volume fraction] 45.5 % 39.0 - 51.0 % [facility] Hemoglobin (Bld) [Mass/Vol] 14.3 g/dL 13.0 - 17.0 g/dL [facility] Immature Gran % 0.3 % [facility] Lymphocytes (Bld) [#/Vol] 1.19 10*3/uL 1.00 - 4.00 k/uL [facility] Lymphocytes/100 WBC (Bld) 15.8 % [facility] MCH (RBC) [Entitic mass] 30.9 pg 26.0 - 34.0 pg [facility] MCHC (RBC) [Mass/Vol] 31.4 g/dL 30.5 - 36.0 g/dL [facility] MCV (RBC) [Entitic vol] 98.3 fL 80.0 - 100.0 fL [facility] Monocytes (Bld) [#/Vol] 0.48 10*3/uL <0.87 k/uL [facility] Monocytes/100 WBC (Bld) 6.4 % [facility] Neutrophils (Bld) [#/Vol] 5.65 10*3/uL 1.45 - 7.50 k/uL [facility] Neutrophils/100 WBC (Bld) 74.9 % [facility] Nucleated RBC (Bld) [#/Vol] 10*3/uL <0.01 k/uL [facility] Nucleated RBC/100 WBC (Bld) [Ratio] 0.0 /100 WBC [facility] Platelet mean volume (Bld) [Entitic vol] 10.5 fL 9.0 - 12.7 fL [facility] Platelets (Bld) [#/Vol] 263 10*3/uL 150 - 400 k/uL [facility] RBC (Bld) [#/Vol] 4.63 10*6/uL 4.20 - 6.0 0 m/uL [facility] WBC (Bld) [#/Vol] 7.53 10*3/uL 3.70 - 11.00 k/uL [facility] LIPID PANEL, NONFASTINGon Cholesterol [Mass/Vol] 203 mg/dL High <200 mg/dL [facility] HDL Cholesterol, Nonfasting 59 mg/dL >39 mg/dL [facility] LDL Cholesterol, Nonfasting 116 mg/dL High <100 mg/dL [facility] LDL/HDL Ratio, Nonfasting 1.97 mg/dL <2.54 mg/dL [facility] Non HDL Cholesterol, Nonfasting 144 mg/dL High <130 mg/dL [facility] Total Chol/HDL Ratio, Nonfasting 3.44 mg/dL <5.10 mg/dL [facility] Triglycerides, Nonfasting 140 mg/dL <150 mg/dL [facility] VLDL Cholesterol, Nonfasting 28 mg/dL <30 mg/dL [facility] XR SHOULDER GENERAL 3V OR MO RE AP/TRUE AP/OTHER RIGHTon 10-23-2021 [facility] XR Shoulder - right 3 Viewso n 10-23-2021 IMPRESSION: No radiographic evidence of acute osseous abnormality Relocation Services Specialist: RUDDY Transcribe Date/Time: Oct 23 2021 3:29P Dictated by : CESAR DALLAS MD This examination was interpreted and the report reviewed and electronically signed by: CESAR DALLAS MD on Oct 23 2021 3:29PM [facility] [email or web address]_[id number]_USE _DIVISION OF RADIOLOGY * * *Final Report* * * DATE OF EXAM: Oct 23 2021 3:24PM WOX 5253 - XR SHLDR >/=3V AP/NEEL AP/OTHR RT / PROCEDURE REASON: Acute pain of right shoulder * * * * Physician Interpretation * * * * CLINICAL INDICATION: Shoulder pain TECHNIQUE: 3 view right fixed study of the right shoulder COMPARISON: None FINDINGS: No acute fracture or dislocation identified. Acromioclavicular joint intact. ZZZ_DO_NOT_USE _DIVISION OF RADIOLOGY Provider, [facility] [place] - 10/23/2021 * * *Final Report* * * DATE OF EXAM: Oct 23 2021 3:24PM WOX 5253 - XR SHLDR >/=3V AP/NEEL AP/OTHR RT / PROCEDURE REASON: Acute pain of right shoulder * * * * Physician Interpretation * * * * CLINICAL INDICATION: Shoulder pain TECHNIQUE: 3 view right fixed study of the right shoulder COMPARISON: None FINDINGS: No acute fracture or dislocation identified. Acromioclavicular joint intact. IMPRESSION IMPRESSION: No radiographic evidence of acute osseous abnormality Relocation Services Specialist: [facility] Transcribe Date/Time: Oct 23 2021 3:29P Dictated by : CESAR DALLAS MD This examination was interpreted and the report reviewed and electronically signed by: CESAR DLALAS MD on Oct 23 2021 3:29PM [facility] Radiology Study observation (narrative) [facility] XR Shoulder - right 3 ViewsO rdered By: [facility] Provider on 10-23-2021 [facility] XR Chest PA and Lateralon IMPRESSION: Stable airspace disease on the right. Blunting of the costophrenic angles and pleural thickening is stable. Cardiomegaly Relocation Services Specialist: [facility] Transcribe Date/Time: Jul 20 2021 2:46P Dictated by : THAD GARCIA MD This examination was interpreted and the report reviewed and electronically signed by: THAD GARCIA MD on Jul 20 2021 2:49PM [facility] DIVISION OF RADIOLOGY * * *Final Report* * * DATE OF EXAM: Jul 20 2021 2:41PM WOX [id number] - XR CHEST 2V FRONTAL/LAT / PROCEDURE REASON: multiple diagnoses * * * * Physician Interpretation * * * * EXAMINATION: CHEST RADIOGRAPH (2 VIEW FRONTAL & LATERAL) CLINICAL HISTORY: Closed fracture of multiple ribs of right side with routine healing, subsequent encounter Traumatic pneumothorax, subsequent encounter MQ: [id number] EXAM DATE/TIME: 07/20/2021 2:41 PM COMPARISON: 07/18/2021 RESULT: Lines, tubes, and devices: None. Lungs and pleura: Right subcutaneous air is seen. Unchanged. Airspace disease within the mid and lower lung field primarily peripherally on the right is grossly stable. Blunting of the costophrenic angles is stable. Pleural thickening bilaterally in the apices is unchanged. No definite pneumothorax. Cardiomediastinal silhouette: Stable enlarged cardiomediastinal silhouette. Bones and soft tissues: Unremarkable. DIVISION OF RADIOLOGY Provider, [facility] [place] - 07/20/2021 * * *Final Report* * * DATE OF EXAM: Jul 20 2021 2:41PM WOX 5291 - XR CHEST 2V FRONTAL/LAT / PROCEDURE REASON: multiple diagnoses * * * * Physician Interpretation * * * * EXAMINATION: CHEST RADIOGRAPH (2 VIEW FRONTAL & LATERAL) CLINICAL HISTORY: Closed fracture of multiple ribs of right side with routine healing, subsequent encounter Traumatic pneumothorax, subsequent encounter MQ: [id number] EXAM DATE/TIME: 07/20/2021 2:41 PM COMPARISON: 07/18/2021 RESULT: Lines, tubes, and devices: None. Lungs and pleura: Right subcutaneous air is seen. Unchanged. Airspace disease within the mid and lower lung field primarily peripherally on the right is grossly stable. Blunting of the costophrenic angles is stable. Pleural thickening bilaterally in the apices is unchanged. No definite pneumothorax. Cardiomediastinal silhouette: Stable enlarged cardiomediastinal silhouette. Bones and soft tissues: Unremarkable. IMPRESSION IMPRESSION: Stable airspace disease on the right. Blunting of the costophrenic angles and pleural thickening is stable. Cardiomegaly Relocation Services Specialist: RUDDY Transcribe Date/Time: Jul 20 2021 2:46P Dictated by : THAD GARCIA MD This examination was interpreted and the report reviewed and electronically signed by: THAD GARCIA MD on Jul 20 2021 2:49PM EST [facility] Radiology Study observation (narrative) Sonia cedeno [facility] XR Chest PA and LateralOrder ed By: [facility] Provider on 07-20-2021 [facility] Absolute lymphocyte counton 07-15-2021 Lymphocytes Auto (Unsp spec) [#/Vol] 1.02 10*3/uL 0.83-4.51 [facility] Work Phone: Basophil percentageon 2021 Basophils/100 WBC (Bld) 0.1 % 0-1 [facility] Work Phone: Bilirubin [Mass/Vol] 0.60 mg/dL 0.20-1.00 [facility] Work Phone: Comment on above: For patients on eltr ombopag therapy, use of Dimension [place] TBIL is not recommended. Chloride [Moles/Vol] 103 mmol/L 98-107 [facility] Work Phone: Eosinophils/100 WBC (Bld) 0.4 % 0-5 [facility] Work Phone: Glucose [Mass/Vol] 107 mg/dL 74-106 [facility] Work Phone: Comment on above: Fasting Glucose resu lt from 100 to 125 mg/dL suggests IMPAIRED HOMEOSTASIS per A.D.A. criteria. Neutrophils (Bld) [#/Vol] 5.2 10*3/uL 2.0-7.7 [facility] Work Phone: Neutrophils/100 WBC (Bld) 76.4 % 47-70 [facility] Work Phone: Potassium [Moles/Vol] 3.9 mmol/L 3.5-5.1 [facility] Work Phone: Protein [Mass/Vol] 7.3 g/dL 6.4-8.2 [facility] Work Phone: Sodium [Moles/Vol] 137 mmol/L 136-145 [facility] Work Phone: WBC (Bld) [#/Vol] 6.8 10*3/uL 4.4-11.0 [facility] Work Phone: Blood erythrocytes count (nu mber/volume)on 07-15-2021 RBC (Bld) [#/Vol] 4.36 10*6/uL 4.6-6.2 [facility] Work Phone: Blood hemoglobin measurement (mass/volume)on 07-15-2021 Hemoglobin (Bld) [Mass/Vol] 13.8 g/dL 13.0-16.5 [facility] Work Phone: Blood lymphocytes/100 leukoc yteson 07-15-2021 Lymphocytes/100 WBC (Bld) 15.0 % 19-41 [facility] Work Phone: Blood monocytes/100 leukocyt eson 07-15-2021 Monocytes/100 WBC (Bld) 7.8 % 0-10 [facility] Work Phone: Blood platelet mean volumeon 07-15-2021 Platelet mean volume (Bld) [Entitic vol] 10.1 fL 6.2-12.0 [facility] Work Phone: Determination of erythrocyte mean corpuscular volume (MCV)on 07-15-2021 MCV (RBC) [Entitic vol] 96.3 fL 80-94 [facility] Work Phone: Hematocrit Auto (Bld) [Volum e fraction]on 07-15-2021 Hematocrit (Bld) [Volume fraction] 42.0 % 40-54 [facility] Work Phone: Laboratory - Chemistry and C hemistry - challengeon 07-15-2021 ALP [Catalytic activity/Vol] 109 U/L 45-117 [facility] Work Phone: ALT [Catalytic activity/Vol] 24 U/L 16-61 [facility] Work Phone: CO2 [Moles/Vol] 29.0 mmol/L 21.0-32.0 [facility] Work Phone: Globulin (S) [Mass/Vol] 4.1 g/dL 2.2-4.2 [facility] Work Phone: Urea nitrogen/Creatinine [Mass ratio] 12.3 mg/mg 10-20 [facility] Work Phone: Laboratory - Hematology and Cell countson 07-15-2021 Erythrocyte distribution width (RBC) [Entitic vol] 48.8 fL 35.1-43.9 [facility] Work Phone: Erythrocyte distribution width (RBC) [Ratio] 13.8 % 11.6-14.6 [facility] Work Phone: Immature granulocytes/100 WBC (Bld) 0.300 % 0.0-0.9 [facility] Work Phone: Comment on above: IG% - Immature Granu locytes (promyelocytes, myelocytes and metamyelocytes) > 1% indicates that a LEFT SHIFT is Present. MCH (RBC) [Entitic mass] 31.7 pg 27.0-32.0 [facility] Work Phone: Nucleated RBC/100 WBC (Bld) [Ratio] 0 % 0-5 [facility] Work Phone: MCHC Auto (RBC) [Mass/Vol]on 07-15-2021 MCHC (RBC) [Mass/Vol] 32.9 g/dL 32-36 [facility] Work Phone: No Panel Informationon 07-15 Estimated Creatinine Clearance Calc 62.30 ml/min [facility] Work Phone: Estimated GFR (MDRD) Amer 80 mL/min >60 [facility] Work Phone: Comment on above: GFR Calc Estimated GFR (MDRD) Non-Af Amer 66 mL/min >60 [facility] Work Phone: Comment on above: Non- GFR Calc Ethyl Alcohol Level < 3.0 mg/dL [facility] Work Phone: Comment on above: The serum:whole bloo d ethanol ratio is approximately 1.14and varies slightly with hematocrit. Medical Alcohol reference interval and critical value innon-tolerant individuals; 50 - 100 Impairment 100 Intoxication 100 - 250 Severe Poisoning 250 - 400 Deep/possible fatal coma Platelets bldon 07-15-2021 Platelets (Bld) [#/Vol] 202 10*3/uL 150-450 [facility] Work Phone: Serum or plasma albumin eddie urement (mass/volume)on 07-15-2021 Albumin [Mass/Vol] 3.2 g/dL 3.2-5.0 [facility] Work Phone: Serum or plasma albumin/glob ulin mass ratioon 07-15-2021 Albumin/Globulin [Mass ratio] 0.8 {ratio} 0.9-2.4 [facility] Work Phone: Serum or plasma calcium eddie urement (mass/volume)on 07-15-2021 Calcium [Mass/Vol] 8.6 mg/dL 8.5-10.1 [facility] Work Phone: Serum or plasma creatinine m easurement (mass/volume)on 07-15-2021 Creatinine [Mass/Vol] 1.14 mg/dL 0.70-1.30 [facility] Work Phone: Comment on above: The validity of the calculated GFR & GFRAA in patients over 70 years has not been determined. Clinical correlation is essential. Serum or plasma urea nitroge n measurement (mass/volume)on 07-15-2021 Urea nitrogen [Mass/Vol] 14 mg/dL 7-18 [facility] Work Phone: Thin prep Papanicolaou smear with manual screeningon 07-15-2021 Thin prep Papanicolaou smear with manual screening 26 U/L 15-37 [facility] Work Phone: Thin prep Papanicolaou smear with manual screening 5 5-15 [facility] Work Phone: History and Physicalon 03-06 History and Physical Normal [facility] [place] Depart Summaryon 03-04-2017 Depart Summary Normal [facility] [place] Dis[place] Summaryon 03-04-20 Discharge Summary Normal [facility]) Hospitalist Progress Noteon 03-04-2017 Hospitalist Progress Note Normal [facility] [place] Inpatient Patient Summaryon 03-04-2017 Inpatient Patient Summary Normal [facility] [place] Rounding Noteon 03-04-2017 Rounding Note Normal [facility] [place] .Auto Diffon 03-03-2017 Basophils Auto #/vol (Bld) 0.00 10 3/mcL Normal 0.00-0.27 [facility] [place] Comment on above: Performed By: #### C BC, ADIFF, ANEU, GFR, VIDH, B12, FOL, TSH, CMP ####[address] [address] Basophils/100 WBC Auto (Bld) 0.2 % Normal 0.0-2.5 [facility] ([place] Comment on above: Performed By: #### C BC, ADIFF, ANEU, GFR, VIDH, B12, FOL, TSH, CMP ####[address] [address] Eosinophils 0.10 10 3/mcL Normal 0.00-0.65 [facility] ([place]) Comment on above: Performed By: #### C BC, ADIFF, ANEU, GFR, VIDH, B12, FOL, TSH, CMP ####[address] [address] Eosinophils/100 leukocytes 1.4 % Normal 0.0-6.0 [facility] ([place] Comment on above: Performed By: #### C BC, ADIFF, ANEU, GFR, VIDH, B12, FOL, TSH, CMP ####[address] [address] Lymphocytes 1.30 10 3/mcL Normal 0.90-4.32 [facility] ([place]) Comment on above: Performed By: #### C BC, ADIFF, ANEU, GFR, VIDH, B12, FOL, TSH, CMP ####[address] [address] Lymphocytes/100 leukocytes 18.0 % Low 20.0-40.0 [facility] ([place] Comment on above: Performed By: #### C BC, ADIFF, ANEU, GFR, VIDH, B12, FOL, TSH, CMP ####[address] [address] Monocytes 0.50 10 3/mcL Normal 0.09-1.40 [facility] ([place]) Comment on above: Performed By: #### C BC, ADIFF, ANEU, GFR, VIDH, B12, FOL, TSH, CMP ####[address] [address] Monocytes/100 leukocytes 7.0 % Normal 2.0-13.0 [facility] ([place]) Comment on above: Performed By: #### C BC, ADIFF, ANEU, GFR, VIDH, B12, FOL, TSH, CMP ####[address] [address] Neutrophils/100 WBC Auto (Bld) 73.4 % Normal 50.0-75.0 [facility] ([place]) Comment on above: Performed By: #### C BC, ADIFF, ANEU, GFR, VIDH, B12, FOL, TSH, CMP ####[address] [address] .GFRon 03-03-2017 eGFR (non-black) mL/min/{1.73_m2} Normal [facility] ([place]) Comment on above: Result Comment: GFR Population mean for , Non- Americans Ages 20-29 = 116 mL/min/1.73 sq.m. Ages 30-39 = 107 mL/min/1.73 sq.m. Ages 40-49 = 99 mL/min/1.73 sq.m. Ages 50-59 = 93 mL/min/1.73 sq.m. Ages 60-69 = 85 mL/min/1.73 sq.m. Ages 70+ = 75 mL/min/1.73 sq.m.Chronic Kidney Disease: Less than 60 mL/min/1.73 square metersEnd Stage Renal Disease: Less than 15 mL/min/1.73 square meters Performed By: #### B MP, GFR ####[address] [address] .NEUABSon 03-03-2017 Neutrophils 5.30 10 3/mcL Normal 2.25-8.10 [facility] ([place]) Comment on above: Performed By: #### B MP, GFR ####[place] [address] B12on 03-03-2017 Cobalamins (Vitamin B12) 283 pg/mL Normal 211-911 [facility] ([place]) Comment on above: Performed By: #### B MP, GFR ####[place] [address] CBCon 03-03-2017 Erythrocyte distribution width Auto Ratio (RBC) 14.8 % Normal 11.5-15.5 [facility] ([place] Comment on above: Performed By: #### C BC, ADIFF, ANEU, GFR, VIDH, B12, FOL, TSH, CMP ####[place] [address] Erythrocytes (RBC) 4.66 10 6/mcL Normal 4.50-6.00 [facility] ([place]) Comment on above: Performed By: #### C BC, ADIFF, ANEU, GFR, VIDH, B12, FOL, TSH, CMP ####[place] [address] Hematocrit (HCT) 40.9 % Normal 40.0-52.0 [facility] ([place] Comment on above: Performed By: #### C BC, ADIFF, ANEU, GFR, VIDH, B12, FOL, TSH, CMP ####[place] [address] Hemoglobin mass conc (Bld) 13.4 G/dL Normal 13.0-17.5 [facility] ([place] Comment on above: Performed By: #### C BC, ADIFF, ANEU, GFR, VIDH, B12, FOL, TSH, CMP ####[place] [address] MCH 28.7 pg Normal 27.0-33.0 [facility] ([place] Comment on above: Performed By: #### C BC, ADIFF, ANEU, GFR, VIDH, B12, FOL, TSH, CMP ####[place] [address] MCHC mass conc (RBC) 32.7 G/dL Normal 32.0-36.0 [facility] ([place]) Comment on above: Performed By: #### C BC, ADIFF, ANEU, GFR, VIDH, B12, FOL, TSH, CMP ####[place] [address] MCV 87.9 fL Normal 81.0-100.0 [facility] ([place] Comment on above: Performed By: #### C BC, ADIFF, ANEU, GFR, VIDH, B12, FOL, TSH, CMP ####[place] [address] Platelet mean volume (PMV) 7.5 fL Normal 6.4-10.5 [facility] ([place] Comment on above: Performed By: #### C BC, ADIFF, ANEU, GFR, VIDH, B12, FOL, TSH, CMP ####[place] [address] Platelets 231 10 3/mcL Normal 150-450 [facility] ([place]) Comment on above: Performed By: #### C BC, ADIFF, ANEU, GFR, VIDH, B12, FOL, TSH, CMP ####[place] [address] WBC (Leukocytes) 7.20 10 3/mcL Normal 4.50-10.80 [facility] ([place]) Comment on above: Performed By: #### C BC, ADIFF, ANEU, GFR, VIDH, B12, FOL, TSH, CMP ####[place] [address] CMPon 03-03-2017 Albumin/Globulin Ratio 0.8 {ratio} Low 0.9-1.6 [facility] ([place]) Comment on above: Performed By: #### B MP, GFR ####[place] [address] Alk Phos 151 U/L High 38-126 [facility] ([place]) Comment on above: Performed By: #### B MP, GFR ####[place] [address] Bili Total 0.7 mg/dL Normal 0.2-1.2 [facility] ([place] Comment on above: Performed By: #### B MP, GFR ####[place] [address] Globulin 3.3 G/dL Normal 1.5-3.8 [facility] ([place] Comment on above: Performed By: #### B MP, GFR ####[place] [address] Protein 6.0 G/dL Normal 6.0-8.5 [facility] ([place] Comment on above: Performed By: #### B MP, GFR ####[place] [address] Alanine aminotransferase (ALT) 28 U/L Normal 12-55 [facility] ([place]) Comment on above: Performed By: #### B MP, GFR ####[place] [address] Albumin 2.7 G/dL Low 3.2-4.8 [facility] ([place] Comment on above: Performed By: #### B MP, GFR ####[place] [address] Aspartate aminotransferase (AST) 20 U/L Normal 8-34 [facility] ([place] Comment on above: Performed By: #### B MP, GFR ####[place] [address] BUN/Creatinine Ratio 14.0 ratio Normal 10.0-22.0 [facility] ([place]) Comment on above: Performed By: #### B MP, GFR ####[place] [address] Calcium 8.3 mg/dL Low 8.4-10.1 [facility] ([place] Comment on above: Performed By: #### B MP, GFR ####[place] [address] Chloride 103 mmol/L Normal 98-110 [facility] ([place] Comment on above: Performed By: #### B MP, GFR ####[place] [address] CO2 29 mmol/L Normal 22-32 [facility] ([place] Comment on above: Performed By: #### B MP, GFR ####[place] [address] Creatinine 1.07 mg/dL Normal 0.60-1.40 [facility] ([place] Comment on above: Performed By: #### B MP, GFR ####[place] [address] Electrolyte Balance 9.0 mEq/L Normal 4.0-15.0 [facility] ([place] Comment on above: Performed By: #### B MP, GFR ####[place] [address] Glucose mass conc 97 mg/dL Normal 82-115 [facility] ([place] Comment on above: Performed By: #### B MP, GFR ####[place] [address] Potassium molar conc 3.8 mmol/L Normal 3.5-5.0 [facility] ([place]) Comment on above: Performed By: #### B MP, GFR ####[place] [address] Sodium 141 mmol/L Normal 136-145 [facility] ([place]) Comment on above: Performed By: #### B MP, GFR ####[place] [address] Urea nitrogen 15.0 mg/dL Normal 8.0-22.0 [facility] ([place]) Comment on above: Performed By: #### B MP, GFR ####[place] [address] FOLon 03-03-2017 Folate 8.6 ng/mL Normal 1.1-20.0 [facility] ([place] Comment on above: Performed By: #### B MP, GFR ####[place] [address] Hospitalist Progress Noteon 03-03-2017 Hospitalist Progress Note Normal [facility] ([place]) Surgical Progress Noteon Surgical Progress Note Normal [facility] ([place]) TROPIon 03-03-2017 Troponin I.cardiac mass conc ng/mL Normal 0.000-0.040 [facility] ([place]) Comment on above: Result Comment: Trop onin I reference ranges (02/07/14): 0.00-0.040 ng/mL Negative and non-diagnostic. >0.040 ng/mL Consistent with cardiac damage, increased clinical risk and possibility of myocardial infarction. Serial measurements, a rise & fall in test results, clinical history, appropriate symptoms and/or ECG changes may help assess possibility of CT. *Other non-acute coronary syndrome conditions such as CHF, myocarditis, pulmonary emboli, sepsis and cardiac surgery could result in myocardial damage and increased troponin levels. Performed By: #### T ROPI ####[place] [address] TSHon 03-03-2017 Thyroid stimulating hormone (TSH) 2.060 mcIU/mL Normal 0.360-3.740 [facility] ([place]) Comment on above: Result Comment: Navarro allen note ? as of 12/14/16 new pediatric reference intervals were added for this test. Performed By: #### B MP, GFR ####[place] [address] VIDHon 03-03-2017 Vit. D 25-Hydroxy 31 ng/mL Normal [facility] ([place]) Comment on above: Result Comment: Inte rpretive Values Based on Total 25(OH)D: Severe Deficiency <20 ng/mL Mild to Moderate Deficiency 20-30 ng/mL Optimum Levels 30-100 ng/mL Toxicity Possible >100 ng/mL Performed By: #### B MP, GFR ####[place] [address] XR CHEST 1 VIEWon 03-03-2017 XR CHEST 1 VIEW ORIGINALXR CHEST 1 VIEW CLINICAL STATEMENT: pneumothorax COMPARISON: 03/02/2017 FINDINGS:The cardiac and mediastinal contours are grossly stable. Persistent subcutaneous emphysema not significantly changed when compared to prior films on the left is noted. The aeration pattern to the hemithoraces is unchanged from prior films. There are degenerative changes noted throughout the osseous structures. Continued partial demonstration of left retrocardiac parenchymal and pleural changes noted IMPRESSION:No interval change Interpreted By: Laverne Franco MDPreliminary Report By: Laverne Franco MDElectronically Signed By: Laverne Franco MD Dictated Date: 03/03/2017 10:24:11 AM Prelim Date: 03/03/2017 10:24:11 AM Sign Date: 03/03/2017 10:24:47 AM Normal [facility] ([place]) XR CHEST 2 VIEWSon 7 XR CHEST 2 VIEWS ORIGINALXR CHEST 2 VIEWSPA and lateral CLINICAL INDICATION: pneumothorax, sob COMPARISON: 03/03/17 9:46 AM, CT chest 03/02/2017 from [facility] FINDINGS: Cardiac and mediastinal silhouettes are unchanged from the comparison. There is considerable subcutaneous emphysema along the left hemithorax and left acromioclavicular region and base of the neck similar to the prior exam. No definite pneumothorax is visible. Diffuse streaky left lung base opacities are present similar to the prior study. No acute skeletal changes are identified. There is a calcified lymph node in the AP window unchanged from the comparison. IMPRESSION: No pneumothorax is visible. Subcutaneous emphysema over the left chest is unchanged. Mild left lung base atelectasis or scarring. Interpreted By: Maxi Silver MDPreliminary Report By: Maxi Silver MDElectronically Signed By: Maxi Silver MD Dictated Date: 03/03/2017 11:44:59 AM Prelim Date: 03/03/2017 11:44:59 AM Sign Date: 03/03/2017 11:48:49 AM Normal [facility] ([place]) .GFRon 03-02-2017 eGFR (non-black) mL/min/{1.73_m2} Normal [facility] ([place]) Comment on above: Result Comment: GFR Population mean for , Non- Americans Ages 20-29 = 116 mL/min/1.73 sq.m. Ages 30-39 = 107 mL/min/1.73 sq.m. Ages 40-49 = 99 mL/min/1.73 sq.m. Ages 50-59 = 93 mL/min/1.73 sq.m. Ages 60-69 = 85 mL/min/1.73 sq.m. Ages 70+ = 75 mL/min/1.73 sq.m.Chronic Kidney Disease: Less than 60 mL/min/1.73 square metersEnd Stage Renal Disease: Less than 15 mL/min/1.73 square meters Performed By: #### B MP, GFR ####[place] [address] BMPon 03-02-2017 BUN/Creatinine Ratio 14.5 ratio Normal 10.0-22.0 [facility] ([place]) Comment on above: Performed By: #### B MP, GFR ####[place] [address] Calcium 8.2 mg/dL Low 8.4-10.1 [facility] ([place] Comment on above: Performed By: #### B MP, GFR ####[place] [address] Chloride 103 mmol/L Normal 98-110 [facility] ([place] Comment on above: Performed By: #### B MP, GFR ####[place] [address] CO2 28 mmol/L Normal 22-32 [facility] ([place] Comment on above: Performed By: #### B MP, GFR ####[place] [address] Creatinine 1.10 mg/dL Normal 0.60-1.40 [facility] ([place] Comment on above: Performed By: #### B MP, GFR ####[place] [address] Electrolyte Balance 7.0 mEq/L Normal 4.0-15.0 [facility] ([place] Comment on above: Performed By: #### B MP, GFR ####[place] [address] Glucose mass conc 103 mg/dL Normal 82-115 [facility] ([place] Comment on above: Performed By: #### B MP, GFR ####[place] [address] Potassium molar conc 3.7 mmol/L Normal 3.5-5.0 [facility] ([place]) Comment on above: Performed By: #### B MP, GFR ####[place] [address] Sodium 138 mmol/L Normal 136-145 [facility] ([place]) Comment on above: Performed By: #### B MP, GFR ####[address] [address] Urea nitrogen 16.0 mg/dL Normal 8.0-22.0 [facility] ([place]) Comment on above: Performed By: #### B MP, GFR ####[address] [address] CKon 03-02-2017 Creatine kinase (CK) 242 U/L High 7-185 [facility] ([place]) Comment on above: Performed By: #### C K ####[address] [address] [address] HEAD OR BRAIN W/O CONTRAS Ton 03-02-2017 CT HEAD OR BRAIN W/O CONTRAST ORIGINALCT Head or Brain W/O Contrast INDICATION: INJURY COMPARISON: CTA chest 03/02/2017 TECHNIQUE: Routine CT Head without IV contrast. This exam was performed according to our departmental dose optimization program, and includes the following measures where applicable: automated exposure control, adjustment of the mAs and/or kVp according to patient size and/or exam, and an iterative reconstruction algorithm. FINDINGS: No acute infarct, hemorrhage, or mass is identified. The ventricles and sulci are age-appropriate. Scattered periventricular white matter hypoattenuation is nonspecific however likely represents chronic small vessel angiopathy. The posterior fossa is unremarkable. The calvaria and skull base are intact. The paranasal sinuses and mastoid air cells are clear. Correlating with the CTA chest performed on the same day, a small quantity of subcutaneous air from the chest wall extends posteriorly into the deep muscular layers inferior to the skull base. IMPRESSION: Small quantity of subcutaneous air within the deep muscular layers inferior to the skull base. Mild chronic small vessel angiopathy. No acute hemorrhage, infarct, or fracture. I have personally reviewed the images of this examination and agree with the resident's findings and interpretation. Interpreted By: Arya Beach MDPreliminary Report By: Erich Kennedy MDElectronically Signed By: Arya Beach MD Dictated Date: 03/02/2017 5:19:59 PM Prelim Date: 03/02/2017 5:26:57 PM Sign Date: 03/02/2017 6:57:23 PM Normal [facility]) Consultation Noteon 03-02-20 17 Consultation Note Normal [facility]) ED Note-Provideron 7 ED Note-Provider Normal [facility]) XR CHEST 1 VIEWon 03-02-2017 XR CHEST 1 VIEW ORIGINALClinical history: Trauma. COMPARISON: CT scan of the chest on 03/02/2017. AP radiograph of the chest was obtained at 5:50 PM. The heart size is at the upper limits of normal. There is no widening of the mediastinum. The lungs are well expanded with no infiltrate. There is no significant pleural fluid. There is not evidence of a pneumothorax on this exam. Subcutaneous emphysema in the left chest wall extending into the neck is present. No fractures are seen on this exam. Nondisplaced fracture of the left seventh rib posteriorly is seen on the CT scan done earlier in the day at [facility]. A small left pneumothorax was seen on that CT scan also. IMPRESSION: Large amount of subcutaneous emphysema in left chest wall. No infiltrate or pneumothorax is detected on this exam. Interpreted By: Arya Beach MDPreliminary Report By: Arya Beach MDElectronically Signed By: Arya Beach MD Dictated Date: 03/02/2017 5:56:59 PM Prelim Date: 03/02/2017 5:56:59 PM Sign Date: 03/02/2017 6:01:21 PM [facility] Office Visit: evaluation for TBSEon 12-11-2016 Alcoholism counseling (procedure) no Invalid Interpretation Code [facility] Work Phone: Dietary management education, guidance, and counseling (procedure) yes Invalid Interpretation Code [facility] Work Phone: Documentation of current medications (procedure) Done Invalid Interpretation Code [facility] Work Phone: Fall risk assessment No Invalid Interpretation Code [facility] Work Phone: Tobacco smoking status NHIS Current Invalid Interpretation Code [facility] Work Phone: Tobacco use CPHS Former smoker Invalid Interpretation Code [facility] Work Phone: Office Visit: postop surgery 04/04/15on 04-12-2015 Smoking cessation education (procedure) yes Invalid Interpretation Code [facility] Work Phone: Lab Report: BMPon 11-18-2013 Anion gap 5 mmol/L Normal 5-15 [facility] Work Phone: BUN/Creatinine Ratio 9.0 RATIO Low 10-[address] [facility] Work Phone: Calcium 8.7 mg/dL Normal 8.5-10.1 [facility] Work Phone: Chloride 107 mmol/L Normal 98-107 [facility] Work Phone: CO2 28.0 mmol/L Normal 21.0-32.0 [facility] Work Phone: Creatinine 1.0 mg/dL Normal 0.8-1.3 [facility] Work Phone: eGFR (non-black) 96 mL/min/{1.73_m2} Normal >60 [facility] Work Phone: eGFR (non-black) 79 mL/min/{1.73_m2} Normal >60 [facility] Work Phone: Glucose 106 mg/dL Normal 70-110 [facility] Work Phone: Potassium 4.2 mmol/L Normal 3.5-5.1 [facility] Work Phone: Sodium 140 mmol/L Normal 136-145 [facility] Work Phone: Urea nitrogen 9 mg/dL Normal 7-18 [facility] Work Phone: Lab Report: CBCon 11-18-2013 Erythrocytes (RBC) 5.23 10*6/uL Normal 4.6-6.[address] [facility] Work Phone: Hematocrit (HCT) 43.8 % Normal 40-54 [facility] Work Phone: Hemoglobin (HGB) 14.4 g/dL Normal 13.0-16.5 [facility] Work Phone: MCH 27.5 pg Normal 27.0-32.0 [facility] Work Phone: MCHC 32.9 G/GL Normal 32-36 [facility] Work Phone: MCV 83.7 fL Normal 80-94 [facility] Work Phone: Platelets 202 10*3/mm3 Normal 150-450 [facility] Work Phone: PMV by Brittani 9.4 fL Normal 6.2-12.0 [facility] Work Phone: RDW-CA 42.2 fl Normal 35.1-43.9 [facility] Work Phone: WBC (Leukocytes) 8.0 10*3/uL Normal 4.4-11.0 [facility] Work Phone: Large Joint Arthro/Inj: R montanez bacromial bursa [facility] Vital Signs Date Time Vital Sign Value Performing Clinician Facility 03-10-2025 01:12-0400 Body temperature 97.2 [degF] Dr. Igor Ge MD Work Phone: [facility] 03-10-2025 01:12-0400 Diastolic blood pressure 79 mm[Hg] Dr. Igor Ge MD Work Phone: [facility] 03-10-2025 01:12-0400 Heart rate 74 /min Dr. Igor Ge MD Work Phone: [facility] 03-10-2025 01:12-0400 Respiratory rate 18 /min Dr. Igor Ge MD Work Phone: [facility] 03-10-2025 01:12-0400 SaO2% (BldA) [Mass fraction] 97 % Dr. Igor Ge MD Work Phone: [facility] 03-10-2025 01:12-0400 Systolic blood pressure 160 mm[Hg] Dr. Igor eG MD Work Phone: [facility] 03-09-2025 21:20-0400 Body height 185.[address] Igor Ge MD Work Phone: [facility] 03-09-2025 21:20-0400 Body mass index (BMI) [Ratio] 31.4 kg/m2 Dr. Igor Ge MD Work Phone: [facility] 03-09-2025 21:20-0400 Body weight 107.[address] Igor Ge MD Work Phone: [facility] 02-01-2025 14:30-0400 Body mass index (BMI) [Ratio] 31.8 kg/m2 Anne Podlogar NURSING INFORMATICS SPECIALIST.TABLEMAN Work Phone: [facility] 02-01-2025 14:30-0400 Body weight 109.32 kg Anne Podlogar NURSING INFORMATICS SPECIALIST.TABLEMAN Work Phone: [facility] 02-01-2025 14:30-0400 Diastolic blood pressure 62 mm[Hg] Anne Podlogar NURSING INFORMATICS SPECIALIST.TABLEMAN Work Phone: [facility] 02-01-2025 14:30-0400 Heart rate 80 /min Anne Podlogar NURSING INFORMATICS SPECIALIST.TABLEMAN Work Phone: [facility] 02-01-2025 14:30-0400 Respiratory rate 18 /min Anne Podlogar NURSING INFORMATICS SPECIALIST.TABLEMAN Work Phone: [facility] 02-01-2025 14:30-0400 SaO2% (BldA) [Mass fraction] 92 % Anne Podlogar NURSING INFORMATICS SPECIALIST.TABLEMAN Work Phone: [facility] 02-01-2025 14:30-0400 Systolic blood pressure 104 mm[Hg] Anne Podlogar NURSING INFORMATICS SPECIALIST.TABLEMAN Work Phone: [facility] 10-27-2024 14:31-0400 Body mass index (BMI) [Ratio] 30.53 kg/m2 Kanchan Ge MD Work Phone: [facility] 10-27-2024 14:31-0400 Body weight 104.96 kg Kanchan Ge MD Work Phone: [facility] 10-27-2024 14:31-0400 Diastolic blood pressure 66 mm[Hg] Kanchan Ge MD Work Phone: [facility] 10-27-2024 14:31-0400 Heart rate 88 /min Kanchan Ge MD Work Phone: [facility] 10-27-2024 14:31-0400 Respiratory rate 18 /min Kanchan Ge MD Work Phone: [facility] 10-27-2024 14:31-0400 SaO2% (BldA) [Mass fraction] 94 % Kanchan Ge MD Work Phone: [facility] 10-27-2024 14:31-0400 Systolic blood pressure 110 mm[Hg] Kanchan Ge MD Work Phone: [facility] 08-19-2024 14:08-0400 Body height 185.4 cm Mando Ling MD Work Phone: [facility] 08-19-2024 14:08-0400 Body mass index (BMI) [Ratio] 30.31 kg/m2 Mando Ling MD Work Phone: [facility] 08-19-2024 14:08-0400 Body weight 104.2 kg Mando Ling MD Work Phone: [facility] 08-19-2024 14:08-0400 Diastolic blood pressure 57 mm[Hg] Mando Ling MD Work Phone: [facility] 08-19-2024 14:08-0400 Heart rate 91 /min Mando iLng MD Work Phone: [facility] 08-19-2024 14:08-0400 SaO2% (BldA) [Mass fraction] 98 % Mando Ling MD Work Phone: [facility] 08-19-2024 14:08-0400 Systolic blood pressure 98 mm[Hg] Mando Cedeno Work Phone: [facility] 07-29-2024 14:10-0500 Diastolic blood pressure 58 mm[Hg] Kanchan Ge MD Work Phone: [facility] 07-29-2024 14:10-0500 Heart rate 95 /min Kanchan Ge MD Work Phone: [facility] 07-29-2024 14:10-0500 Respiratory rate 16 /min Kanchan Ge MD Work Phone: [facility] 07-29-2024 14:10-0500 SaO2% (BldA) [Mass fraction] 98 % Kanchan Ge MD Work Phone: [facility] 07-29-2024 14:10-0500 Systolic blood pressure 108 mm[Hg] Kanchan Ge MD Work Phone: [facility] 04-27-2024 13:59-0500 Body mass index (BMI) [Ratio] 28.31 kg/m2 Kanchan Ge MD Work Phone: [facility] 04-27-2024 13:59-0500 Body weight 97.34 kg Kanchan Ge MD Work Phone: [facility] 04-27-2024 13:59-0500 Diastolic blood pressure 62 mm[Hg] Kanchan Ge MD Work Phone: [facility] 04-27-2024 13:59-0500 Heart rate 56 /min Kanchan Ge MD Work Phone: [facility] 04-27-2024 13:59-0500 Respiratory rate 16 /min Kanchan Ge MD Work Phone: [facility] 04-27-2024 13:59-0500 SaO2% (BldA) [Mass fraction] 98 % Kanchan Ge MD Work Phone: [facility] 04-27-2024 13:59-0500 Systolic blood pressure 110 mm[Hg] Kanchan Ge MD Work Phone: [facility] 04-26-2024 13:57-0500 Body mass index (BMI) [Ratio] 28.39 kg/m2 Mando Ling MD Work Phone: [facility] 04-26-2024 13:57-0500 Body weight 97.6 kg Mando Ling MD Work Phone: [facility] 04-26-2024 13:57-0500 Diastolic blood pressure 69 mm[Hg] Mando Ling MD Work Phone: [facility] 04-26-2024 13:57-0500 Heart rate 95 /min Mando Ling MD Work Phone: [facility] 04-26-2024 13:57-0500 Respiratory rate 16 /min Mando Ling MD Work Phone: [facility] 04-26-2024 13:57-0500 SaO2% (BldA) [Mass fraction] 97 % Mando Ling MD Work Phone: [facility] 04-26-2024 13:57-0500 Systolic blood pressure 101 mm[Hg] Mando Cedeno Work Phone: [facility] 02-26-2024 14:02-0400 Diastolic blood pressure 60 mm[Hg] Kanchan Ge MD Work Phone: [facility] Comment on above: recheck 02-26-2024 14:02-0400 Systolic blood pressure 98 mm[Hg] Kanchan Ge MD Work Phone: [facility] Comment on above: recheck 02-26-2024 12:42-0400 Body mass index (BMI) [Ratio] 27.81 kg/m2 Kanchan Ge MD Work Phone: [facility] 02-26-2024 12:42-0400 Body temperature 97.9 [degF] Kanchan Ge MD Work Phone: [facility] 02-26-2024 12:42-0400 Body weight 95.62 kg Kanchan Ge MD Work Phone: [facility] 02-26-2024 12:42-0400 Heart rate 94 /min Kanchan Ge MD Work Phone: [facility] 02-26-2024 12:42-0400 Respiratory rate 16 /min Kanchan Ge MD Work Phone: [facility] 02-26-2024 12:42-0400 SaO2% (BldA) [Mass fraction] 97 % Kanchan Ge MD Work Phone: [facility] 02-24-2024 13:39-0400 Body height 185.4 cm Mando Ling MD Work Phone: [facility] 02-24-2024 13:39-0400 Diastolic blood pressure 57 mm[Hg] Mando Ling MD Work Phone: [facility] 02-24-2024 13:39-0400 Heart rate 61 /min Mando Ling MD Work Phone: [facility] 02-24-2024 13:39-0400 Respiratory rate 18 /min Mando Ling MD Work Phone: [facility] 02-24-2024 13:39-0400 SaO2% (BldA) [Mass fraction] 96 % Mando Ling MD Work Phone: [facility] 02-24-2024 13:39-0400 Systolic blood pressure 90 mm[Hg] Mando Cedeno Work Phone: [facility] 01-22-2024 10:53-0400 Diastolic blood pressure 74 mm[Hg] Mando Ling MD Work Phone: [facility] 01-22-2024 10:53-0400 Heart rate 93 /min Mando Ling MD Work Phone: [facility] 01-22-2024 10:53-0400 Respiratory rate 16 /min Mando Ling MD Work Phone: [facility] 01-22-2024 10:53-0400 SaO2% (BldA) [Mass fraction] 94 % Mando Ling MD Work Phone: [facility] 01-22-2024 10:53-0400 Systolic blood pressure 107 mm[Hg] Mando Cedeno Work Phone: [facility] 01-02-2024 04:07-0400 SaO2% (BldA) [Mass fraction] 100 % MANDO LING [facility] Comment on above: Order Comment: Specimen Type: ARTERIAL B LOOD SPECIMENOrdering Facility: [facility] Address: [address] [place] [address] Performed By: #### A LLBG ####[facility]ORATORYCLIA [id number] [place], [place] [id number] [place] [address] STATES OF [facility] 12-02-2023 14:07-0400 Diastolic blood pressure 56 mm[Hg] Kanchan Ge MD Work Phone: [facility] 12-02-2023 14:07-0400 Heart rate 92 /min Kanchan Ge MD Work Phone: [facility] 12-02-2023 14:07-0400 Respiratory rate 18 /min Kanchan Ge MD Work Phone: [facility] 12-02-2023 14:07-0400 SaO2% (BldA) [Mass fraction] 95 % Kanchan Ge MD Work Phone: [facility] 12-02-2023 14:07-0400 Systolic blood pressure 110 mm[Hg] Kanchan Ge MD Work Phone: [facility] 08-08-2023 10:43-0500 Body height 185.4 cm Adonis De Oliveira MD Work Phone: [facility] 08-08-2023 10:43-0500 Body temperature 98.2 [degF] Adonis De Oliveira MD Work Phone: [facility] 08-08-2023 10:43-0500 Body weight 104.87 kg Adonis De Oliveira MD Work Phone: [facility] 08-08-2023 10:43-0500 Diastolic blood pressure 78 mm[Hg] Adonis De Oliveira MD Work Phone: [facility] 08-08-2023 10:43-0500 Heart rate 108 /min Adonis De Oliveira MD Work Phone: [facility] 08-08-2023 10:43-0500 SaO2% (BldA) [Mass fraction] 98 % Adonis De Oliveira MD Work Phone: [facility] 08-08-2023 10:43-0500 Systolic blood pressure 140 mm[Hg] Adonis De Oliveira MD Work Phone: [facility] 04-21-2023 14:56-0500 Body weight 108.41 kg Kanchan Ge MD Work Phone: [facility] 04-21-2023 14:56-0500 Diastolic blood pressure 70 mm[Hg] Kanchan Ge MD Work Phone: [facility] 04-21-2023 14:56-0500 Heart rate 81 /min Kanchan Ge MD Work Phone: [facility] 04-21-2023 14:56-0500 Respiratory rate 20 /min Kanchan Ge MD Work Phone: [facility] 04-21-2023 14:56-0500 SaO2% (BldA) [Mass fraction] 97 % Kanchan Ge MD Work Phone: [facility] 04-21-2023 14:56-0500 Systolic blood pressure 126 mm[Hg] Kanchan Ge MD Work Phone: [facility] 02-18-2023 15:09-0400 Diastolic blood pressure 62 mm[Hg] Kanchan Ge MD Work Phone: [facility] 02-18-2023 15:09-0400 Heart rate 109 /min Kanchan Ge MD Work Phone: [facility] 02-18-2023 15:09-0400 Respiratory rate 22 /min Kanchan Ge MD Work Phone: [facility] 02-18-2023 15:09-0400 SaO2% (BldA) [Mass fraction] 98 % Kanchan Ge MD Work Phone: [facility] 02-18-2023 15:09-0400 Systolic blood pressure 108 mm[Hg] Kanchan Ge MD Work Phone: [facility] 01-30-2023 16:02-0400 Diastolic blood pressure 64 mm[Hg] Kanchan Ge MD Work Phone: [facility] 01-30-2023 16:02-0400 Heart rate 115 /min Kanchan Ge MD Work Phone: [facility] 01-30-2023 16:02-0400 Systolic blood pressure 95 mm[Hg] Kanchan Ge MD Work Phone: [facility] 01-30-2023 14:54-0400 Body weight 107.5 kg Kanchan Ge MD Work Phone: [facility] 01-30-2023 14:54-0400 Respiratory rate 22 /min Kanchan Ge MD Work Phone: [facility] 01-30-2023 14:54-0400 SaO2% (BldA) [Mass fraction] 95 % Kanchan Ge MD Work Phone: [facility] 01-16-2023 14:20-0400 Body temperature 97.5 [degF] Kanchan Ge MD Work Phone: [facility] 01-16-2023 14:20-0400 Body weight 110.41 kg Kanchan Ge MD Work Phone: [facility] 01-16-2023 14:20-0400 Diastolic blood pressure 62 mm[Hg] Kanchan Ge MD Work Phone: [facility] 01-16-2023 14:20-0400 Heart rate 106 /min Kanchan Ge MD Work Phone: [facility] 01-16-2023 14:20-0400 Respiratory rate 28 /min Kanchan Ge MD Work Phone: [facility] 01-16-2023 14:20-0400 SaO2% (BldA) [Mass fraction] 96 % Kanchan Ge MD Work Phone: [facility] 01-16-2023 14:20-0400 Systolic blood pressure 110 mm[Hg] Kanchan Ge MD Work Phone: [facility] 12-09-2022 14:58-0400 Body height 185.[address] Igor Ge Work Phone: 2(419)469-746121 [place] [address] 12-09-2022 14:58-0400 Body mass index (BMI) [Ratio] 32 kg/m2 Dr. Igor Ge Work Phone: 7(352)741-923621 [place] [address] 12-09-2022 14:58-0400 Body temperature 98.2 [degF] Dr. Igor Ge Work Phone: 6(146)009-804721 [place] [address] 12-09-2022 14:58-0400 Body weight 110.[address] Igor Ge Work Phone: 4(541)219-359221 [place] [address] 12-09-2022 14:58-0400 Diastolic blood pressure 73 mm[Hg] Dr. Igor Ge Work Phone: 6(000)435-520121 [place] [address] 12-09-2022 14:58-0400 Heart rate 102 /min Dr. Igor Ge Work Phone: 9(334)097-332221 [place] [address] 12-09-2022 14:58-0400 Respiratory rate 18 /min Dr. Igor Ge Work Phone: 5(601)902-917336 [place] [address] 12-09-2022 14:58-0400 SaO2% (BldA) [Mass fraction] 94 % Dr. Igor Ge Work Phone: 5(316)580-865421 [place] [address] 12-09-2022 14:58-0400 Systolic blood pressure 134 mm[Hg] Dr. Igor Ge Work Phone: 8(523)400-934221 [place] [address] 10-08-2022 13:43-0400 Body temperature 97.5 [degF] Dr. Igor Ge Work Phone: 8(252)131-485521 [place] [address] 10-08-2022 13:43-0400 Diastolic blood pressure 60 mm[Hg] Dr. Igor Ge Work Phone: [facility] 10-08-2022 13:43-0400 Heart rate 88 /min Dr. Igor Ge Work Phone: [facility] 10-08-2022 13:43-0400 Respiratory rate 18 /min Dr. Igor Ge Work Phone: [facility] 10-08-2022 13:43-0400 SaO2% (BldA) [Mass fraction] 96 % Dr. Igor Ge Work Phone: [facility] 10-08-2022 13:43-0400 Systolic blood pressure 95 mm[Hg] Dr. Igor Ge Work Phone: [facility] 10-01-2022 13:20-0400 Body weight 111.22 kg Anne Podlogar NURSING INFORMATICS SPECIALIST.TABLEMAN Work Phone: [facility] 10-01-2022 13:20-0400 Diastolic blood pressure 64 mm[Hg] Anne Podlogar NURSING INFORMATICS SPECIALIST.TABLEMAN Work Phone: [facility] 10-01-2022 13:20-0400 Heart rate 86 /min Anne Podlogar NURSING INFORMATICS SPECIALIST.TABLEMAN Work Phone: [facility] 10-01-2022 13:20-0400 Respiratory rate 20 /min Anne Podlogar NURSING INFORMATICS SPECIALIST.TABLEMAN Work Phone: [facility] 10-01-2022 13:20-0400 SaO2% (BldA) [Mass fraction] 97 % Anne Podlogar NURSING INFORMATICS SPECIALIST.TABLEMAN Work Phone: [facility] 10-01-2022 13:20-0400 Systolic blood pressure 112 mm[Hg] Anne Podlogar NURSING INFORMATICS SPECIALIST.TABLEMAN Work Phone: [facility] 09-10-2022 13:22-0400 Body temperature 97.8 [degF] Dr. Igor Ge Work Phone: [facility] 09-10-2022 13:22-0400 Heart rate 88 /min Dr. Igor Ge Work Phone: [facility] 09-10-2022 13:22-0400 Respiratory rate 16 /min Dr. Igor Ge Work Phone: [facility] 09-10-2022 13:22-0400 SaO2% (BldA) [Mass fraction] 93 % Dr. Igor Ge Work Phone: [facility] 07-04-2022 13:28-0500 Body weight 110.86 kg Kanchan Ge MD Work Phone: [facility] 07-04-2022 13:28-0500 Diastolic blood pressure 72 mm[Hg] Kanchan Ge MD Work Phone: 5(561)482-6[address] [place] [address] 07-04-2022 13:28-0500 Heart rate 94 /min Kanchan Ge MD Work Phone: [facility] 07-04-2022 13:28-0500 Respiratory rate 18 /min Kanchan Ge MD Work Phone: [facility] 07-04-2022 13:28-0500 SaO2% (BldA) [Mass fraction] 93 % Kanchan Ge MD Work Phone: [facility] 07-04-2022 13:28-0500 Systolic blood pressure 136 mm[Hg] Kanchan Ge MD Work Phone: [facility] 06-11-2022 14:02-0500 Body temperature 97.6 [degF] Dr. Igor Ge Work Phone: [facility] 06-11-2022 14:02-0500 Heart rate 94 /min Dr. Igor Ge Work Phone: [facility] 06-11-2022 14:02-0500 Respiratory rate 16 /min Dr. Igor Ge Work Phone: [facility] 06-11-2022 14:02-0500 SaO2% (BldA) [Mass fraction] 97 % Dr. Igor Ge Work Phone: [facility] 06-04-2022 13:59-0500 Diastolic blood pressure 81 mm[Hg] Anne Podlogar NURSING INFORMATICS SPECIALIST.TABLEMAN Work Phone: [facility] 06-04-2022 13:59-0500 Heart rate 77 /min Anne Podlogar NURSING INFORMATICS SPECIALIST.TABLEMAN Work Phone: [facility] 06-04-2022 13:59-0500 Systolic blood pressure 154 mm[Hg] Anne Podlogar NURSING INFORMATICS SPECIALIST.TABLEMAN Work Phone: [facility] 06-04-2022 13:40-0500 Body weight 112.22 kg Anne Podlogar NURSING INFORMATICS SPECIALIST.TABLEMAN Work Phone: [facility] 06-04-2022 13:40-0500 Respiratory rate 18 /min Anne Podlogar NURSING INFORMATICS SPECIALIST.TABLEMAN Work Phone: [facility] 06-04-2022 13:40-0500 SaO2% (BldA) [Mass fraction] 96 % Anne Podlogar NURSING INFORMATICS SPECIALIST.TABLEMAN Work Phone: [facility] 05-03-2022 13:28-0500 Diastolic blood pressure 62 mm[Hg] Anne Podlogar NURSING INFORMATICS SPECIALIST.TABLEMAN Work Phone: [facility] 05-03-2022 13:28-0500 Heart rate 94 /min Anne Podlogar NURSING INFORMATICS SPECIALIST.TABLEMAN Work Phone: [facility] 05-03-2022 13:28-0500 Systolic blood pressure 99 mm[Hg] Anne Podlogar NURSING INFORMATICS SPECIALIST.TABLEMAN Work Phone: [facility] 05-03-2022 13:02-0500 Body weight 109.32 kg Anne Podlogar NURSING INFORMATICS SPECIALIST.TABLEMAN Work Phone: [facility] 05-03-2022 13:02-0500 Respiratory rate 18 /min Anne Podlogar NURSING INFORMATICS SPECIALIST.TABLEMAN Work Phone: [facility] 05-03-2022 13:02-0500 SaO2% (BldA) [Mass fraction] 95 % Anne Bethea APRN.CNP Work Phone: [facility] 04-17-2022 19:57-0500 Body height 185.[address] Igor Ge Work Phone: [facility] Work Phone: 04-17-2022 19:57-0500 Body mass index (BMI) [Ratio] 31.6 kg/m2 Dr. Igor Ge Work Phone: [facility] Work Phone: 04-17-2022 19:57-0500 Body temperature 97.4 [degF] Dr. Igor Ge Work Phone: [facility] Work Phone: 04-17-2022 19:57-0500 Body weight 108.[address] Igor Ge Work Phone: [facility] Work Phone: 04-17-2022 19:57-0500 Diastolic blood pressure 95 mm[Hg] Dr. Igor Ge Work Phone: [facility] Work Phone: 04-17-2022 19:57-0500 Heart rate 109 /min Dr. Igor Ge Work Phone: [facility] Work Phone: 04-17-2022 19:57-0500 Respiratory rate 16 /min Dr. Igor Ge Work Phone: [facility] Work Phone: 04-17-2022 19:57-0500 SaO2% (BldA) [Mass fraction] 98 % Dr. Igor Ge Work Phone: [facility] Work Phone: 04-17-2022 19:57-0500 Systolic blood pressure 192 mm[Hg] Dr. Igor Ge Work Phone: [facility] Work Phone: 04-05-2022 12:51-0400 Body weight 107.86 kg Anne Podlogar NURSING INFORMATICS SPECIALIST.TABLEMAN Work Phone: [facility] 04-05-2022 12:51-0400 Respiratory rate 18 /min Anne Podlogar NURSING INFORMATICS SPECIALIST.TABLEMAN Work Phone: [facility] 04-05-2022 12:51-0400 SaO2% (BldA) [Mass fraction] 96 % Anne Podlogar NURSING INFORMATICS SPECIALIST.TABLEMAN Work Phone: [facility] 03-26-2022 05:01-0400 Diastolic blood pressure 75 mm[Hg] Dr. Igor Ge Work Phone: [facility] Work Phone: 03-26-2022 05:01-0400 Heart rate 80 /min Dr. Igor Ge Work Phone: [facility] Work Phone: 03-26-2022 05:01-0400 Respiratory rate 15 /min Dr. Igor Ge Work Phone: [facility] Work Phone: 03-26-2022 05:01-0400 SaO2% (BldA) [Mass fraction] 97 % Dr. Igor Ge Work Phone: [facility] Work Phone: 03-26-2022 05:01-0400 Systolic blood pressure 122 mm[Hg] Dr. Igor Ge Work Phone: [facility] Work Phone: 03-26-2022 00:02-0400 Body mass index (BMI) [Ratio] 31.4 kg/m2 Dr. Igor Ge Work Phone: [facility] Work Phone: 03-26-2022 00:02-0400 Body temperature 97 [degF] Dr. Igor Ge Work Phone: [facility] Work Phone: 03-26-2022 00:02-0400 Body weight 107.[address] Igor Ge Work Phone: [facility] Work Phone: 03-19-2022 14:55-0400 Body weight 111.13 kg Kanchan Ge MD Work Phone: [facility] 03-19-2022 14:55-0400 Diastolic blood pressure 82 mm[Hg] Kanchan Ge MD Work Phone: [facility] 03-19-2022 14:55-0400 Heart rate 73 /min Kanchan Ge MD Work Phone: [facility] 03-19-2022 14:55-0400 Respiratory rate 16 /min Kanchan Ge MD Work Phone: [facility] 03-19-2022 14:55-0400 SaO2% (BldA) [Mass fraction] 94 % Kanchan Ge MD Work Phone: [facility] 03-19-2022 14:55-0400 Systolic blood pressure 118 mm[Hg] Kanchan Ge MD Work Phone: [facility] 02-21-2022 13:51-0400 Body mass index (BMI) [Ratio] 31.8 kg/m2 Dr. Igor Ge Work Phone: [facility] Work Phone: 02-21-2022 13:51-0400 Body temperature 97.3 [degF] Dr. Igor Ge Work Phone: [facility] Work Phone: 02-21-2022 13:51-0400 Body weight 109.[address] Igor Ge Work Phone: [facility] Work Phone: 02-21-2022 13:51-0400 Diastolic blood pressure 80 mm[Hg] Dr. Igor Ge Work Phone: [facility] Work Phone: 02-21-2022 13:51-0400 Heart rate 67 /min Dr. Igor Ge Work Phone: [facility] Work Phone: 02-21-2022 13:51-0400 Respiratory rate 16 /min Dr. Igor Ge Work Phone: [facility] Work Phone: 02-21-2022 13:51-0400 SaO2% (BldA) [Mass fraction] 95 % Dr. Igor Ge Work Phone: [facility] Work Phone: 02-21-2022 13:51-0400 Systolic blood pressure 147 mm[Hg] Dr. Igor Ge Work Phone: [facility] Work Phone: 01-11-2022 15:03-0400 Body height 185.4 cm Thien Riggs PA-C Work Phone: [facility] 01-11-2022 15:03-0400 Body temperature 97.59 [degF] Thien Riggs PA-C Work Phone: [facility] 01-11-2022 15:03-0400 Body weight 109.77 kg Thien Riggs PA-C Work Phone: [facility] 01-11-2022 15:03-0400 Diastolic blood pressure 74 mm[Hg] Thien Riggs PA-C Work Phone: [facility] 01-11-2022 15:03-0400 Heart rate 90 /min Thien Riggs PA-C Work Phone: [facility] 01-11-2022 15:03-0400 Respiratory rate 16 /min Thien Riggs PA-C Work Phone: [facility] 01-11-2022 15:03-0400 SaO2% (BldA) [Mass fraction] 96 % Thien Riggs PA-C Work Phone: [facility] 01-11-2022 15:03-0400 Systolic blood pressure 108 mm[Hg] Thien BOYD-Shaye Work Phone: [facility] 12-17-2021 14:43-0400 Body height 185.4 cm Jonathan Aguiar MD Work Phone: [facility] 12-17-2021 14:43-0400 Body weight 111.13 kg Jonathan Aguiar MD Work Phone: [facility] 12-06-2021 11:32-0400 Body weight 108.68 kg Kanchan Ge MD Work Phone: [facility] 12-06-2021 11:32-0400 Diastolic blood pressure 64 mm[Hg] Kanchan Ge MD Work Phone: [facility] 12-06-2021 11:32-0400 Heart rate 75 /min Kanchan Ge MD Work Phone: [facility] 12-06-2021 11:32-0400 Respiratory rate 18 /min Kanchan Ge MD Work Phone: [facility] 12-06-2021 11:32-0400 SaO2% (BldA) [Mass fraction] 98 % Kanchan Ge MD Work Phone: [facility] 12-06-2021 11:32-0400 Systolic blood pressure 128 mm[Hg] Kanchan Ge MD Work Phone: [facility] 10-23-2021 14:09-0400 Body weight 111.04 kg Kanchan Ge MD Work Phone: [facility] 10-23-2021 14:09-0400 Diastolic blood pressure 68 mm[Hg] Kanchan Ge MD Work Phone: [facility] 10-23-2021 14:09-0400 Heart rate 72 /min Kanchan Ge MD Work Phone: [facility] 10-23-2021 14:09-0400 Respiratory rate 16 /min Kanchan Ge MD Work Phone: [facility] 10-23-2021 14:09-0400 SaO2% (BldA) [Mass fraction] 97 % Kanchan Ge MD Work Phone: [facility] 10-23-2021 14:09-0400 Systolic blood pressure 116 mm[Hg] Kanchan Ge MD Work Phone: [facility] 08-16-2021 13:26-0400 Body height 185.[address] Igor Ge Work Phone: [facility] Work Phone: 08-16-2021 13:26-0400 Body mass index (BMI) [Ratio] 33.1 kg/m2 Dr. Igor Ge Work Phone: [facility] Work Phone: 08-16-2021 13:26-0400 Body temperature 98.1 [degF] Dr. Igor Ge Work Phone: [facility] Work Phone: 08-16-2021 13:26-0400 Body weight 114.[address] Igor Ge Work Phone: [facility] Work Phone: 08-16-2021 13:26-0400 Diastolic blood pressure 79 mm[Hg] Dr. Igor Ge Work Phone: [facility] Work Phone: 08-16-2021 13:26-0400 Heart rate 71 /min Dr. Igor Ge Work Phone: [facility] Work Phone: 08-16-2021 13:26-0400 Respiratory rate 16 /min Dr. Igor Ge Work Phone: [facility] Work Phone: 08-16-2021 13:26-0400 SaO2% (BldA) [Mass fraction] 93 % Dr. Igor Ge Work Phone: [facility] Work Phone: 08-16-2021 13:26-0400 Systolic blood pressure 139 mm[Hg] Dr. Igor Ge Work Phone: [facility] Work Phone: 07-15-2021 18:34-0500 Diastolic blood pressure 80 mm[Hg] Dr. Igor Ge Work Phone: [facility] Work Phone: 07-15-2021 18:34-0500 Heart rate 78 /min Dr. Igor Ge Work Phone: [facility] Work Phone: 07-15-2021 18:34-0500 Respiratory rate 18 /min Dr. Igor Ge Work Phone: [facility] Work Phone: 07-15-2021 18:34-0500 SaO2% (BldA) [Mass fraction] 97 % Dr. Igor Ge Work Phone: [facility] Work Phone: 07-15-2021 18:34-0500 Systolic blood pressure 137 mm[Hg] Dr. Igor Ge Work Phone: [facility] Work Phone: 07-15-2021 14:54-0500 Body mass index (BMI) [Ratio] 34.2 kg/m2 Dr. Igor Ge Work Phone: [facility] Work Phone: 07-15-2021 14:54-0500 Body temperature 97.7 [degF] Dr. Igor Ge Work Phone: [facility] Work Phone: 07-15-2021 14:54-0500 Body weight 117.[address] Igor Ge Work Phone: [facility] Work Phone: 12-11-2016 10:41-0400 BMI (Body Mass Index) 33.05 kg/m2 Mary Ann Dudley MD [facility] Work Phone: 12-11-2016 10:41-0400 Body Temperature 97.7 [degF] Mary Ann Dudley MD [facility] Work Phone: 12-11-2016 10:41-0400 BP Diastolic 80 mm[Hg] Mary Ann Dudley MD [facility] Work Phone: 12-11-2016 10:41-0400 BP Systolic 120 mm[Hg] Mary Ann Dudley MD [facility] Work Phone: 12-11-2016 10:41-0400 BSA (Body Surface Area) 2.4 m2 Mary Ann Dudley MD [facility] Work Phone: 12-11-2016 10:41-0400 Height 186.69 cm Mary Ann Dudley MD [facility] Work Phone: 12-11-2016 10:41-0400 Pulse (Heart Rate) 68 /min Mary Ann Dudley MD [facility] Work Phone: 12-11-2016 10:41-0400 Respiratory Rate 16 /min Mary Ann Dudley MD [facility] Work Phone: 12-11-2016 10:41-0400 Weight 115.21 kg Mary Ann Dudley MD [facility] Work Phone: Encounters Encounter Date Encounter Type Care Provider Facility Start: 03-09-2025 End: 03-10-2025 Emergency department patient visit Dr. Igor Ge MD Work Phone: -Emergency Department Work Phone: Start: 02-02-2025 End: 02-03-2025 Follow-up encounter Anne Bethea APRN.CNP Work Phone: [facility] Start: 02-01-2025 End: 02-01-2025 Patient encounter procedure Anne Bethea APRN.TABLEMAN Work Phone: [facility] Comment on above: Benign hypertension (Primary Dx); Hyperlipidemia with target LDL less than 100; BPH with obstruction/lower urinary tract symptoms; Skin lesion; Encounter for immunization; Tobacco use; Alcohol use; Personal history of malignant neoplasm of skin Start: 02-01-2025 End: 02-01-2025 ambulatory KANCHAN GE Facility:[facility] Start: 11-01-2024 End: 11-01-2024 Telephone encounter Kanchan Ge MD Work Phone: [facility] Comment on above: Insurance Authorizat ion Start: 10-28-2024 End: 10-29-2024 Follow-up encounter Kanchan Ge MD Work Phone: [facility] Comment on above: Results Start: 10-27-2024 End: 10-27-2024 ambulatory KANCHAN GE Facility:[facility] Start: 10-27-2024 End: 10-27-2024 Patient encounter procedure Kanchan Ge MD Work Phone: [facility] Comment on above: History of fusion of cervical spine (Primary Dx); Weakness of upper extremity; Hyperlipidemia with target LDL less than 100; Benign hypertension; BPH with obstruction/lower urinary tract symptoms; Skin lesion; Scleral injection; Other specified glaucoma, unspecified laterality; Chewing tobacco use; Alcohol use; Encounter for immunization; Facial droop Start: 08-19-2024 End: 08-19-2024 Office outpatient visit 25 minutes aMndo Ling MD Work Phone: [facility] Comment on above: S/P cervical spinal fusion (Primary Dx) Start: 08-19-2024 End: 08-19-2024 ambulatory MANDO LING Facility:[facility] Start: 08-19-2024 End: 08-19-2024 Subsequent hospital visit by physician Lesvia Patrick [employer] Comment on above: S/P cervical spinal fusion [Z98.1] Start: 08-02-2024 End: 08-03-2024 Follow-up encounter Kanchan Ge MD Work Phone: [facility] Comment on above: Hyperglycemia (Prima ry Dx) Start: 07-30-2024 End: 07-30-2024 Follow-up encounter Kanchan Ge MD Work Phone: [facility] Start: 07-29-2024 End: 07-29-2024 Subsequent hospital visit by physician Xr [facility] Work Phone: Radiology Comment on above: CHAU (dyspnea on exer tion) [R06.09] Start: 07-29-2024 End: 07-29-2024 ambulatory KANCHAN GE Facility:[facility] Start: 07-29-2024 End: 07-29-2024 Patient encounter procedure [facility]chan Ge [facility] Comment on above: CHAU (dyspnea on exer tion) (Primary Dx); History of fusion of cervical spine; Benign hypertension; Alcohol use Start: 07-27-2024 End: 07-27-2024 Telephone encounter Mando Ling MD Work Phone: [facility] Comment on above: Internal Referrals/r esources Start: 07-26-2024 End: 07-26-2024 Orders Only Mando Ling MD Work Phone: [facility] Comment on above: S/P cervical spinal fusion (Primary Dx) Start: 06-03-2024 End: 06-03-2024 ambulatory MANDO LING Facility:[facility] Start: 06-03-2024 End: 06-03-2024 Postop follow up visit related to original px Mando Ling MD Work Phone: [facility] Comment on above: S/P cervical spinal fusion (Primary Dx); Central cord syndrome, initial encounter ([facility]) Start: 05-28-2024 End: 05-28-2024 ambulatory KANCHAN GE Neurology Comment on above: EMG Start: 05-28-2024 End: 05-28-2024 Patient encounter procedure Emg 2 Neur Sofi Mc (Max Weight: 850) Neurology Start: 05-06-2024 End: 05-06-2024 ambulatory KANCHAN GE Facility:[facility] Start: 05-06-2024 End: 05-06-2024 Subsequent hospital visit by physician Lesvia [facility] M[facility]dez Work Phone: Radiology Comment on above: S/P cervical spinal fusion [Z98.1] Elevated alkaline ph osphatase level [R74.8] Start: 05-04-2024 End: 05-04-2024 Telephone encounter Kanchan Ge MD Work Phone: [facility] Comment on above: Results; Appointment (for liver ultrasound) Start: 04-27-2024 End: 04-27-2024 Subsequent hospital visit by physician Lesvia [facility] Work Phone: Radiology Comment on above: S/P cervical spinal fusion [Z98.1] Start: 04-27-2024 End: 04-27-2024 Patient encounter procedure Kanchan Ge MD Work Phone: [facility] Comment on above: Other closed nondisp laced fracture of fourth cervical vertebra, sequela (Primary Dx); History of fusion of cervical spine; Benign hypertension; Hyperlipidemia with target LDL less than 100; BPH with obstruction/lower urinary tract symptoms; Elevated alkaline phosphatase level; Vertebral artery dissection (HCC); Anemia, unspecified type; Alcohol use Start: 04-27-2024 End: 04-27-2024 ambulatory KANCHAN GE Facility:[facility] Start: 04-26-2024 End: 04-26-2024 Postop follow up visit related to original janee Ling MD Work Phone: [facility] Comment on above: S/P cervical spinal fusion (Primary Dx) Start: 04-26-2024 End: 04-26-2024 Telephone encounter Akua Partida [facility] Comment on above: Home Care (Decline) Start: 04-26-2024 End: 04-26-2024 ambulatory MANDO LING Facility:[facility] Start: 04-26-2024 ambulatory MANDO LING Facility :[facility] Start: 04-26-2024 End: 04-26-2024 Subsequent hospital visit by physician Mri [place] [employer] ACCOUNTANT Comment on above: Spinal stenosis of c ervical region [M48.02] Start: 04-12-2024 ambulatory GRACE Johnston [facility] Start: 04-09-2024 End: 04-09-2024 Patient Outreach Susana Perez RN Work Phone: [employer]ant [employer] Comment on above: Post-Acute Transitio n (PAC Third Outreach) Start: 03-26-2024 End: 03-26-2024 Patient Outreach Susana Perez RN Work Phone: Marketing Consultant Management Comment on above: Post-Acute Transitio n (PAC Second Outreach) Start: 03-24-2024 End: 03-25-2024 Refill Kanchan Ge MD Work Phone: [facility] Comment on above: Refill Request Start: 03-18-2024 End: 03-18-2024 Patient Outreach Susana Perez RN Work Phone: Marketing Consultant Management Comment on above: Post-Acute Transitio n (PAC First Outreach) Start: 03-16-2024 End: 03-16-2024 Telephone encounter Mando Ling MD Work Phone: [facility] Comment on above: Sleeve Fixer - O ther Refill Request Start: 03-11-2024 End: 03-11-2024 Patient Outreach Kailyn Arias MA Work Phone: Internal Medicine Comment on above: Post-Acute Transitio n (SNF TCM PAC Program Completion ) Post-Acute Transitio n (PAC Chart Review) Start: 03-04-2024 End: 03-04-2024 ambulatory Kailyn Arias MA Work Phone: Internal Medicine Start: 03-04-2024 End: 03-04-2024 Follow-up encounter Kailyn Arias MA Work Phone: Internal Medicine Comment on above: Post-Acute Transitio n (SNF TCM PAC Follow up #2 chart review ) Start: 03-01-2024 End: 03-01-2024 Telephone encounter Kanchan Ge MD Work Phone: [facility] Comment on above: Results Start: 02-26-2024 End: 02-26-2024 Subsequent hospital visit by physician Lesvia [facility] Work Phone: Radiology Comment on above: S/P cervical spinal fusion [Z98.1] Decreased breath bret nds at left lung base [R06.89] Start: 02-26-2024 End: 02-27-2024 Telephone encounter Kanchan Ge MD Work Phone: [facility] Comment on above: Results Start: 02-26-2024 End: 02-26-2024 Patient encounter procedure Kanchan Ge MD Work Phone: [facility] Comment on above: Fall in home, initia l encounter (Primary Dx); Other closed nondisplaced fracture of fourth cervical vertebra with routine healing, subsequent encounter; Vertebral artery dissection (HCC); Contusion of cervical spinal region; Muscle right arm weakness; Decreased breath sounds at left lung base; Alcohol abuse; Anemia, unspecified type; Encounter for immunization Start: 02-24-2024 End: 02-24-2024 Postop follow up visit related to original px Mando Ling MD Work Phone: [facility] Comment on above: Spinal stenosis of c ervical region (Primary Dx) Start: 02-24-2024 End: 02-24-2024 Follow-up encounter Kailyn Arias MA Work Phone: Internal Medicine Comment on above: Post-Acute Transitio n (SNF TCM PAC follow up #1 ) Start: 02-24-2024 End: 02-24-2024 ambulatory Kailyn Arias MA Work Phone: Internal Medicine Start: 02-20-2024 End: 02-20-2024 E-mail encounter from caregiver Mando Ling MD Work Phone: [facility] Start: 02-20-2024 End: 02-20-2024 Patient encounter procedure Mando Ling MD Work Phone: [facility] Start: 02-20-2024 End: 02-20-2024 Telephone encounter Kanchan Ge MD Work Phone: [facility] Comment on above: Home Health Update Start: 02-16-2024 End: 02-16-2024 Patient Outreach Joanaapril Busch Internal Medicine Comment on above: Post-Acute Transitio n (TCM pt dc from [facility] 02.14.24) Post-Acute Transitio n (SNF TCM PAC initial outreach ([place] 02/14/24) ) Start: 02-12-2024 End: 02-12-2024 Telephone encounter Kanchan Ge MD Work Phone: [facility] Comment on above: Home Health Point of Care Results Start: 01-29-2024 End: 01-29-2024 Telephone encounter Mando Ling MD Work Phone: [facility] Comment on above: Sleeve Fixer - O ther Start: 01-23-2024 End: 01-23-2024 Telephone encounter Mando Ling MD Work Phone: [facility] Start: 01-22-2024 End: 01-22-2024 Postop follow up visit related to original px Mando Ling MD Work Phone: [facility] Comment on above: S/P cervical spinal fusion (Primary Dx) Start: 01-22-2024 End: 01-22-2024 ambulatory MADNO LING Facility:[facility] Start: 01-14-2024 Telephone encounter Mando brennan MD Work Phone: [facility] Start: 01-10-2024 End: 02-14-2024 [facility] Start: 01-02-2024 End: 01-02-2024 ambulatory UNKNOWN PROVIDER Facility:[facility] Start: 01-01-2024 End: 01-09-2024 Evaluation and management of inpatient KANCHAN GE Facility:[facility] Start: 12-03-2023 End: 04-16-2024 Telephone encounter Kanchan Ge MD Work Phone: [facility] Comment on above: Results Start: 12-03-2023 End: 12-03-2023 Subsequent hospital visit by physician [facility] (I-Stat) Work Phone: Cat Scan Comment on above: Injury of head, init ial encounter [S09.90XA] Start: 12-02-2023 End: 12-02-2023 Patient encounter procedure Kanchan Ge MD Work Phone: [facility] [place] Comment on above: Fall in home, initia l encounter (Primary Dx); Orthostatic hypotension; Abrasion of forehead, initial encounter; Injury of head, initial encounter; Skin tear of right elbow without complication, initial encounter; Benign hypertension; Hyperlipidemia with target LDL less than 100; BPH with obstruction/lower urinary tract symptoms; History of DVT of lower extremity; Chronic anticoagulation; At high risk for falls; Abdominal aortic aneurysm (AAA) without rupture, unspecified part (HCC) Start: 12-01-2023 End: 02-24-2024 Refill Kanchan Ge MD Work Phone: [facility] [place] Comment on above: Refill Request Start: 10-13-2023 Refill Kanchan Ge MD Work Phone: [facility] Comment on above: Refill Request Start: 09-01-2023 Telephone encounter Igor Ge MD Work Phone: [facility] Comment on above: Insurance Authorizat ion Start: 08-08-2023 End: 08-08-2023 Patient encounter procedure Adonis De Oliveira MD Work Phone: General Surgery Comment on above: Cutaneous abscess of other site Start: 07-04-2023 Refill Kanchan Ge MD Work Phone: [facility] Comment on above: Refill Request (OUT OF MEDICATION) Start: 04-21-2023 End: 04-21-2023 Patient encounter procedure Kanhcan Ge MD Work Phone: [facility] Comment on above: Unsteady gait when w alking (Primary Dx); Fall in home, initial encounter; Rib pain on right side; Benign hypertension; Hyperlipidemia with target LDL less than 100; CHAU (dyspnea on exertion); BPH with obstruction/lower urinary tract symptoms; History of DVT of lower extremity; Chronic anticoagulation; Encounter for immunization Start: 04-14-2023 Telephone encounter Igor Ge MD Work Phone: [facility] Comment on above: Medication Request Start: 02-19-2023 End: 02-19-2023 Subsequent hospital visit by physician [facility] (I-Stat) Work Phone: Cat Scan Comment on above: Injury of head, init ial encounter [S09.90XA] Start: 02-19-2023 Telephone encounter Igor Ge MD Work Phone: [facility] Comment on above: Results Start: 02-18-2023 End: 02-18-2023 Subsequent hospital visit by physician [facility] Work Phone: Radiology Comment on above: Fall in home, initia l encounter [W19.XXXA, Y92.009] Start: 02-18-2023 End: 02-18-2023 Patient encounter procedure Kanchan Ge MD Work Phone: [facility] Comment on above: Fall in home, initia l encounter (Primary Dx); Rib pain on right side; Encounter for immunization; Injury of head, initial encounter; Hypotension, unspecified hypotension type; Alcohol use disorder, mild, abuse Start: 01-30-2023 End: 01-30-2023 Patient encounter procedure Kanchan Ge MD Work Phone: [facility] Comment on above: Hypotension, unspeci fied hypotension type (Primary Dx); Alcohol use disorder, mild, abuse; Essential tremor Start: 01-29-2023 End: 01-29-[address] Igor Ge Work Phone: [facility] Work Phone: Start: 01-29-2023 End: 01-29-[address] Igor Ge Work Phone: [facility] Work Phone: Start: 01-17-2023 Telephone encounter Igor Ge MD Work Phone: [facility] Comment on above: Results Start: 01-16-2023 End: 01-16-[address] Igor Ge Work Phone: [facility] Work Phone: Start: 01-16-2023 End: 01-16-[address] Igor Ge Work Phone: [facility]-Laboratory, Specimen Work Phone: Start: 01-16-2023 End: 01-16-2023 Subsequent hospital visit by physician [facility] Work Phone: Radiology Comment on above: CHAU (dyspnea on exer tion) [R06.09] Start: 01-16-2023 End: 01-16-2023 Patient encounter procedure Kanchan Ge MD Work Phone: [facility] Comment on above: CHAU (dyspnea on exer tion) (Primary Dx); Bilateral lower extremity edema; Benign hypertension; Hyperlipidemia with target LDL less than 100; Gastroesophageal reflux disease, unspecified whether esophagitis present; BPH with obstruction/lower urinary tract symptoms; Situational depression; Obesity, Class I, BMI 30-34.9; Abdominal aortic aneurysm (AAA) without rupture, unspecified part (HCC); History of DVT of lower extremity; Chronic anticoagulation; At high risk for falls; Fall in home, initial encounter Start: 12-09-2022 End: 12-09-[address] Igor Ge Work Phone: [facility] Work Phone: Start: 10-08-2022 End: 10-08-[address] Igor Ge Work Phone: [facility] Work Phone: Start: 10-01-2022 End: 10-01-2022 Patient encounter procedure Anne Bethea APRN.CNP Work Phone: [facility] Comment on above: Benign hypertension (Primary Dx); Obesity, Class I, BMI 30-34.9; Hyperlipidemia with target LDL less than 100; Gastroesophageal reflux disease, unspecified whether esophagitis present; BPH with obstruction/lower urinary tract symptoms; Abdominal aortic aneurysm (AAA) without rupture, unspecified part (HCC); Chronic anticoagulation; History of DVT of lower extremity; Fall, initial encounter Start: 09-30-2022 Non-patient / Non-visit Dr. Sukumar Ge Work Phone: [facility] Start: 09-30-2022 End: 09-30-[address] Igor Ge Work Phone: [facility] Work Phone: Start: 09-30-2022 End: 09-30-[address] Igor Ge Work Phone: [facility] Start: 09-16-2022 Refill Kanchan Ge MD Work Phone: [facility] Comment on above: Refill Request Start: 09-10-2022 End: 09-10-[address] Igor Ge Work Phone: [facility] Start: 08-27-2022 Refill Kanchan Ge MD Work Phone: [facility] Comment on above: Refill Request Start: 07-22-2022 Refill Kanchan Ge MD Work Phone: [facility] Comment on above: Refill Request Start: 07-05-2022 Telephone encounter Igor Ge MD Work Phone: [facility] Comment on above: Results Start: 07-04-2022 End: 07-04-2022 Patient encounter procedure Kanchan Ge MD Work Phone: [facility] Comment on above: Benign hypertension (Primary Dx); Orthostatic hypotension; At high risk for falls; Situational depression; Essential tremor; Chronic anticoagulation; Gastroesophageal reflux disease, unspecified whether esophagitis present; BPH with obstruction/lower urinary tract symptoms; Abdominal aortic aneurysm (AAA) without rupture, unspecified part; Encounter for immunization; Pulmonary emphysema, unspecified emphysema type (HCC) Start: 06-11-2022 End: 06-11-[address] Igor Ge Work Phone: [facility] Start: 06-06-2022 Refill Kanchan Ge MD Work Phone: [facility] Comment on above: Refill Request Start: 06-04-2022 End: 06-04-2022 Patient encounter procedure Anne Nixonlogespinoza NURSING INFORMATICS SPECIALIST.TABLEMAN Work Phone: [facility] Comment on above: Benign hypertension (Primary Dx) Start: 05-03-2022 End: 05-03-2022 Patient encounter procedure Anne Nixonlogespinoza NURSING INFORMATICS SPECIALIST.TABLEMAN Work Phone: [facility] Comment on above: Benign hypertension (Primary Dx) Start: 04-29-2022 Refill Kanchan Ge MD Work Phone: [facility] Comment on above: Refill Request Start: 04-17-2022 End: 04-17-2022 Emergency department patient visit Dr. Igor Ge Work Phone: [facility] Start: 04-05-2022 End: 04-05-2022 Patient encounter procedure Anne Podlogespinoza NURSING INFORMATICS SPECIALIST.TABLEMAN Work Phone: [facility] Comment on above: Fall, subsequent enc ounter (Primary Dx); Orthostatic hypotension; Laceration of skin of eyebrow, left, subsequent encounter; Acute alcoholic intoxication with complication (HCC); Injury of head, subsequent encounter Start: 03-27-2022 Refill Kanchan Ge MD Work Phone: [facility] Comment on above: Refill Request Start: 03-26-2022 Telephone encounter Igor Ge MD Work Phone: [facility] Comment on above: Opened In Error Start: 03-26-2022 End: 03-26-2022 Emergency department patient visit Dr. Igor Ge Work Phone: [facility] Start: 03-19-2022 End: 03-19-2022 Patient encounter procedure Kanchan Ge MD Work Phone: [facility] Comment on above: Tendinopathy of righ t rotator cuff (Primary Dx); Adhesive capsulitis of right shoulder; Hyperlipidemia with target LDL less than 100; Essential tremor; Benign hypertension; Situational depression; Need for influenza vaccination; Need for COVID-19 vaccine Start: 02-25-2022 Telephone encounter Jonathan richards MD Work Phone: Orthopaedics Comment on above: Ultrasound results Start: 02-21-2022 End: 02-21-[address] Igor Ge Work Phone: [facility] Start: 02-14-2022 End: 02-14-2022 Subsequent hospital visit by physician Mri Radio [facility] (I-Stat/1.5t) Work Phone: Radiology Comment on above: Acute pain of right shoulder [M25.511] Start: 01-24-2022 End: 01-24-2022 Patient encounter procedure Jonathan Aguiar MD Work Phone: Orthopaedics Comment on above: Acute pain of right shoulder (Primary Dx); Limited range of motion (ROM) of shoulder; Impingement syndrome of right shoulder; Traumatic tear of right rotator cuff, unspecified tear extent, initial encounter Start: 01-11-2022 End: 01-11-2022 Patient encounter procedure Thien Riggs PA-C Work Phone: Urology Comment on above: BPH with obstruction /lower urinary tract symptoms (Primary Dx) Start: 12-17-2021 End: 12-17-2021 Patient encounter procedure Jonathan Aguiar MD Work Phone: Orthopaedics Comment on above: Impingement syndrome of right shoulder (Primary Dx); Acute pain of right shoulder; Limited range of motion (ROM) of shoulder Start: 12-06-2021 End: 12-06-2021 Patient encounter procedure Kanchan Ge MD Work Phone: [facility] Comment on above: Acute pain of right shoulder (Primary Dx); Limited range of motion (ROM) of shoulder Start: 10-24-2021 Telephone encounter Igor Ge MD Work Phone: [facility] Comment on above: Results Start: 10-23-2021 End: 10-23-2021 Subsequent hospital visit by physician [facility] Work Phone: Radiology Comment on above: Acute pain of right shoulder [M25.511] Start: 10-23-2021 End: 10-23-2021 Patient encounter procedure Kanchan Ge MD Work Phone: [facility] Comment on above: Fall in home, subseq uent encounter (Primary Dx); Acute pain of right shoulder; Unsteady gait when walking; Situational depression; Benign hypertension; Hyperlipidemia with target LDL less than 100; Intention tremor; Gastroesophageal reflux disease, unspecified whether esophagitis present; Non-seasonal allergic rhinitis, unspecified trigger; History of DVT of lower extremity; Chronic anticoagulation; Need for COVID-19 vaccine Start: 10-23-2021 Telephone encounter Igor Ge MD Work Phone: [facility] Comment on above: Results Start: 10-16-2021 ambulatory Cathy Dallas RN Work Phone: Marketing Consultant Management Comment on above: Community Monitoring Outreach (Insight PCC Enrollment) Start: 10-12-2021 Refill Santhosh DORSEY RN.TABLEMAN, DNP Work Phone: [facility] Comment on above: Refill Request Start: 10-10-2021 Non-patient / Non-visit Dr. Sukumar Ge Work Phone: [facility] Start: 10-10-2021 End: 10-10-[address] Igor Ge Work Phone: [facility] Start: 09-24-2021 Refill Kanchan Ge MD Work Phone: [facility] Comment on above: Refill Request Start: 08-16-2021 End: 08-16-[address] Igor Ge Work Phone: [facility] Start: 07-20-2021 End: 07-20-2021 Subsequent hospital visit by physician Xr [facility] Work Phone: Radiology Comment on above: Closed fracture of m ultiple ribs of right side with routine healing, subsequent encounter [S22.41XD] Start: 07-15-2021 End: 07-15-2021 Emergency department patient visit Dr. Igor Ge Work Phone: [facility] Start: 03-02-2017 End: 03-04-2017 Ambulatory PHY WO ID~[id number] REFERRING Facility:A Procedures Date Procedure Procedure Detail Performing Clinician Start: 03-09-[address] Igor Ge MD Work Phone: Start: 03-09-2025 CT of abdomen and pe lvis without contrast Dr. Igor Ge MD Work Phone: Start: 03-09-2025 Urnls dip stick/tabl et reagent auto microscopy Dr. Igor Ge MD Work Phone: Start: 10-27-2024 PFIZER-BIONTECH COVI D-19 VACCINE AGE 12+ YR (COMIRNATY) Kanchan Ge MD Work Phone: Start: 05-28-2024 Nerve conduction sree dies 5-6 studies Mando Ling MD Work Phone: Start: 02-26-2024 Radiologic exam ches t 2 views Kanchan Ge MD Work Phone: Start: 02-26-2024 PFIZER-BIONTECH COVI D-19 VACCINE AGE 12+ YR (COMIRNATY) Kanchan Ge MD Work Phone: Start: 01-01-2024 Antibody screen MANDO WHITE Comment on above: Order Comment: Speci men Type: BLOOD SPECIMEN Ordering Facility: [facility] Address: [address] [place] [address] [place] [address] Performed By: #### T SCR #### [facility] [id number] [address] [facility] Start: 12-03-2023 Ct head/brain w/o co ntrast material Kanchan Ge MD Work Phone: Start: 04-21-2023 PFIZER-BIONTECH COVI D-19 VACCINE (2022- SEASON) AGE 12+ YR Kanchan Ge MD Work Phone: Start: 02-19-2023 Ct head/brain w/o co ntrast material Kanchan Ge MD Work Phone: Start: 02-18-2023 Radex ribs uni w/pos teroant ch minimum 3 views Kanchan Ge MD Work Phone: Start: 02-18-2023 INFLUENZA VACCINE, P RSV FREE, AGE 65+ YR, HIGH DOSE, QUADRIVALENT (FLUZONE HIGH-DOSE) Kanchan Ge MD Work Phone: Start: 01-29-2023 Cardiovascular stres s test using pharmacologic stress agent Dr. Igor Ge Work Phone: Start: 01-16-2023 Radiologic exam ches t 2 views Kanchan Ge MD Work Phone: Start: 03-26-2022 CT of head without contrast Dr. Igor Ge Work Phone: Start: 03-26-2022 Plain chest X-ray Dr. Shaye Ge Work Phone: Start: 03-19-2022 PFIZER-BIONTECH COVI D-19 BIVALENT BOOSTER VACCINE, AGE 12+ YR Kanchan Ge MD Work Phone: Start: 03-19-2022 INFLUENZA SEASONAL QUADRIVALENT HIGH DOSE AGE 65+ Kanchan Ge MD Work Phone: Start: 02-14-2022 Mri any jt upper ext remity w/o contrast matrl Jonathan Aguiar MD Work Phone: Start: 01-11-2022 Urnls dip stick/tabl et rgnt auto w/o microscopy Thien Riggs PA-C Work Phone: Start: 12-17-2021 Arthrocentesis aspir &/inj major jt/bursa w/o us Jonathan Aguiar MD Work Phone: Start: 10-23-2021 Radex shoulder compl ete minimum 2 views Kanchan Ge MD Work Phone: Start: 10-23-2021 PFIZER-BIONTECH COVI D-19 VACCINE, AGE 12+ YR (AN TOP) Kanchan Ge MD Work Phone: Start: 07-20-2021 Radiologic exam ches t 2 views Kanchan Ge MD Work Phone: Start: 07-15-2021 Plain chest X-ray Dr. Shaye Ge Work Phone: Start: 07-15-2021 CT of chest, abdomen and pelvis without contrast Dr. Igor Ge Work Phone: Start: 07-15-2021 CT cervical spine wi thout contrast Dr. Igor Ge Work Phone: Start: 07-15-2021 CT of head without contrast Dr. Igor Ge Work Phone: Start: 12-11-2016 End: 01-08-2017 Follow Up Appt 6 months Mary Ann Dudley MD Start: 06-12-2016 End: 01-08-2017 Follow Up Appt 6 months Mary Ann Dudley MD Start: 04-08-2016 End: 01-08-2017 Follow Up Appt 2 months Mary Ann Dudley MD Start: 03-27-2016 End: 01-08-2017 Follow up Appt 1 week Mary Ann Dudley MD Start: 01-24-2016 End: 03-20-2016 Follow Up Appt Other Mary Ann Dudley MD Start: 11-15-2015 End: 03-20-2016 Follow Up Appt 3 months Mary Ann Dudley MD Start: 10-25-2015 End: 03-20-2016 Follow Up Appt 3 months Mary Ann Dudley MD Start: 08-25-2015 End: 01-18-2016 Follow Up Appt 2 months Mary Ann Dudley MD Start: 05-10-2015 End: 10-27-2015 Follow Up Appt 3 months Mary Ann Dudley MD Start: 05-03-2015 End: 10-27-2015 Follow up Appt 1 week Mary Ann Dudley MD Start: 04-19-2015 End: 10-27-2015 Follow Up Appt Other Mary Ann Dudley MD Start: 04-12-2015 End: 10-27-2015 Follow up Appt 1 week Mary Ann Dudley MD Start: 04-10-2015 End: 10-27-2015 Follow Up Appt Other Mary Ann Dudley MD Start: 04-07-2015 End: 04-27-2015 Follow Up Appt Other Mary Ann Dudley MD Start: 02-22-2015 End: 03-13-2015 Follow Up Appt Other Mary Ann Dudley MD Start: 06-07-2014 End: 03-13-2015 Follow Up Appt 2 months Mary Ann Dudley MD Start: 04-26-2014 End: 03-13-2015 Follow Up Appt 6 weeks Mary Ann Dudley MD Start: 03-01-2014 End: 03-13-2015 Follow Up Appt 2 months Mary Ann Dudley MD Start: 12-21-2013 End: 03-13-2015 Follow Up Appt 2 months Mary Ann Dudley MD Start: 11-30-2013 End: 12-01-2013 Follow up Appt 3 weeks Mary Ann Dudley MD Start: 10-26-2013 End: 10-26-2013 Follow Up Appt Other Mary Ann Dudley MD Plan of Treatment Date Care Activity Detail Author Start: 03-26-2032 Urine microalbumin profile DTaP,Tdap,Td Vaccine (4 - Td or Tdap) [facility] Start: 06-15-2029 Urine microalbumin profile [facility] Start: 02-02-2028 Diabetes Screening Diabetes Screening [facility] Start: 10-28-2027 Diabetes Screening Diabetes Screening [facility] Start: 07-29-2027 Diabetes Screening Diabetes Screening [facility] Start: 04-27-2027 Diabetes Screening Diabetes Screening [facility] Start: 02-25-2027 Diabetes Screening Diabetes Screening [facility] Start: 01-07-2027 Diabetes Screening Diabetes Screening [facility] Start: 12-01-2026 Diabetes Screening Diabetes Screening [facility] Start: 02-01-2026 Annual PCP Team Chronic Disease Visit Annual PCP Team Chronic Disease Visit [facility] Start: 10-27-2025 Annual PCP Team Chronic Disease Visit Annual PCP Team Chronic Disease Visit [facility] Start: 10-27-2025 BP Controlled (<130/80) BP Controlled (<130/80) [facility] Start: 10-27-2025 RSV Vaccine (1 - 1-dose 75+ series) RSV Vaccine (1 - 1-dose 75+ series) [facility] [facility] Comment on above: Postponed from 2020 (Declined at t his time) Start: 10-27-2025 Shingrix Vaccine (1 of 2) Shingrix Vaccine (1 of 2) [facility] Comment on above: Postponed from 1995 (Declined at t his time) Start: 08-19-2025 BP Controlled (<130/80) BP Controlled (<130/80) [facility] Start: 07-29-2025 Annual PCP Team Chronic Disease Visit Annual PCP Team Chronic Disease Visit [facility] Start: 07-29-2025 BP Controlled (<130/80) BP Controlled (<130/80) [facility] Start: 07-04-2025 DIABETES SCREEN DIABETES SCREEN [facility] Start: 07-04-2025 Diabetes Screening Diabetes Screening [facility] Start: 05-06-2025 End: 05-06-2025 Patient encounter procedure 05/06/2025 1:20 PM EST Office Visit Family Traci Cordero [address] [place], [place] [address] Kanchan Ge MD [address] [place], [place] [address] 3 month follow up Family Traci Cordero Comment on above: 3 month follow up Start: 04-27-2025 Annual PCP Team Chronic Disease Visit Annual PCP Team Chronic Disease Visit [facility] Start: 04-27-2025 BP Controlled (<130/80) BP Controlled (<130/80) [facility] Start: 04-26-2025 BP Controlled (<130/80) BP Controlled (<130/80) [facility] Start: 03-10-2025 [facility] Start: 02-25-2025 Annual PCP Team Chronic Disease Visit Annual PCP Team Chronic Disease Visit [facility] Start: 02-25-2025 BP Controlled (<130/80) BP Controlled (<130/80) [facility] Start: 02-23-2025 BP Controlled (<130/80) BP Controlled (<130/80) [facility] Start: 02-02-2025 End: 05-04-2025 Cobalamin (Vitamin B12) [Mass/volume] in Serum or Plasma VITAMIN B12 Lab Routine Normocytic anemia Expected: 02/02/2025, Expires: 05/04/2025 [facility] Comment on above: Expected: 02/02/2025, Expires: Start: 02-02-2025 End: 05-04-2025 Folate [Mass/volume] in Serum or Plasma FOLATE, SERUM Lab Routine Normocytic anemia Expected: 02/02/2025, Expires: 05/04/2025 [facility] Work Phone: Comment on above: Expected: 02/02/2025, Expires: Start: 02-02-2025 End: 05-04-2025 Iron and Iron binding capacity panel - Serum or Plasma IRON AND TIBC Lab Routine Normocytic anemia Expected: 02/02/2025, Expires: 05/04/2025 [facility] Comment on above: Expected: 02/02/2025, Expires: Start: 02-01-2025 End: 02-01-2025 Patient encounter procedure 02/01/2025 2:20 PM EDT Office Visit Family Medicine [facility] [address] [place], [place] [id number] PodAnne millard APRN.TABLEMAN [address] [place] [address] 3 month follow up Family Medicine [facility] Comment on above: 3 month follow up Start: 02-01-2025 End: 05-03-2025 CBC W Auto Differential panel - Blood [facility] Comment on above: Expected: 02/01/2025, Expires: Start: 02-01-2025 End: 05-03-2025 Comprehensive metabolic 2000 panel - Serum or Plasma [facility] Work Phone: Comment on above: Expected: 02/01/2025, Expires: Start: 01-21-2025 BP Controlled (<130/80) BP Controlled (<130/80) [facility] Start: 01-11-2025 End: 01-11-2025 Patient encounter procedure [facility] [employer] Comment on above: XR CERV 2V AP/LAT Cervical Start: 01-10-2025 End: 01-10-2025 Patient encounter procedure [facility] [employer] Comment on above: XR CERV GENERAL 2V AP/LAT Start: 12-01-2024 Annual PCP Team Chronic Disease Visit Annual PCP Team Chronic Disease Visit [facility] Start: 12-01-2024 BP Controlled (<130/80) BP Controlled (<130/80) [facility] Start: 10-27-2024 End: 10-27-2024 Patient encounter procedure 10/27/2024 2:20 PM EDT Office Visit Family Medicine [facility] [address] [place] [place] [address] Kanchan Ge MD [address] [place] [address] 3 month follow up Family Medicine [facility] Comment on above: 3 month follow up Start: 08-25-2024 Covid-19 Vaccine () Covid-19 Vaccine () [facility] Start: 08-19-2024 End: 08-19-2024 Patient encounter procedure [facility] [employer] Comment on above: XR Follow up xray today XR(no order) Start: 08-04-2024 Annual PCP Team Chronic Disease Visit Annual PCP Team Chronic Disease Visit [facility] Start: 07-29-2024 End: 07-29-2024 Patient encounter procedure 07/29/2024 2:20 PM EST Office Visit Family Medicine [place] [address] [facility] [place] [address] Kanchan Ge MD [address] [facility] [place], [place] [phone] 3 month follow up Family Traci Cordero Comment on above: 3 month follow up Start: 07-26-2024 End: 07-26-2024 Patient encounter procedure [facility] [employer] Comment on above: XR SHOULDER LIMITED 2V AP/TRUE AP LEFT 3 month follow up Start: 07-17-2024 DIABETES SCREEN DIABETES SCREEN [facility] Start: 06-03-2024 End: 06-03-2024 Patient encounter procedure 06/03/2024 8:15 AM EST [place] [id number] [facility] [address] [facility] [place] [id number] Mando Ling MD [address] [facility] [place] [address] EMG results [facility] Comment on above: EMG results Start: 06-02-2024 Advance Directive Discussion Advance Directive Discussion [facility] Start: 06-02-2024 Medicare Advantage Annual Wellness Visit Medicare Advantage Annual Wellness Visit [facility] Start: 05-28-2024 End: 05-28-2024 ambulatory 05/28/2024 2:15 PM EST Procedure Neurology [address] [place] [address] NERVE CONDUCTION STUDIES 9-10 STUDIES Neurology Comment on above: NERVE CONDUCTION STUDIES 9-10 STUDIES Start: 05-06-2024 End: 05-06-2024 Patient encounter procedure 05/06/2024 1:45 PM EST Appointment Radiology [address] [place] [address] PLEASE CALL PT TO REMIND HIM OF REQ. 6 HR FASTING Radiology Comment on above: PLEASE CALL PT TO REMIND HIM OF REQ. 6 H R FASTING Start: 04-27-2024 End: 07-27-2024 MELA ALBARADO BL [facility] Work Phone: Comment on above: Expected: 04/27/2024, Expires: Start: 04-27-2024 End: 04-27-2024 Patient encounter procedure [facility] Comment on above: 2 month follow up 2 month follow up. Franny garcia let patient know about Home PT. Order is in Epic Start: 04-26-2024 End: 04-26-2024 Patient encounter procedure 04/26/2024 2:30 PM EST Office Visit [facility] [address] [facility] [place] [phone] Mando Ling MD [address] [facility] [place] [address] 1 mo f/u - MRI today [facility] Comment on above: 1 mo f/u - MRI today Start: 04-26-2024 End: 04-26-2024 Patient encounter procedure 04/26/2024 1:15 PM EST Appointment [facility]IO [facility] [address] [facility] [place], [place] [address] MRI CERVICAL WO RADIO MRI [employer] Comment on above: MRI CERVICAL WO Start: 04-21-2024 Annual PCP Team Chronic Disease Visit Annual PCP Team Chronic Disease Visit [facility] Start: 04-21-2024 BP Controlled (<130/80) BP Controlled (<130/80) [facility] Start: 04-21-2024 RSV Vaccine (1 - 1-dose 60+ series) RSV Vaccine (1 - 1-dose 60+ series) [facility] Comment on above: Postponed from 2005 (Declined at t his time) Start: 04-21-2024 RSV Vaccine (1 - 1-dose 75+ series) RSV Vaccine (1 - 1-dose 75+ series) [facility] Comment on above: Postponed from 2020 (Declined at t his time) Start: 04-21-2024 Shingrix Vaccine (1 of 2) Shingrix Vaccine (1 of 2) [facility] Comment on above: Postponed from 1995 (Declined at t his time) Start: 03-31-2024 End: 06-30-2024 ALK PHOS ISOENZYM BL ALK PHOS ISOENZYM BL Lab Routine Elevated alkaline phosphatase level Expected: 03/31/2024, Expires: 06/30/2024 [facility] Work Phone: Comment on above: Expected: 03/31/2024, Expires: Start: 03-31-2024 End: 06-30-2024 Comprehensive metabolic 2000 panel - Serum or Plasma COMPREHENSIVE METABOLIC PANEL Lab Routine Elevated alkaline phosphatase level Expected: 03/31/2024, Expires: 06/30/2024 [facility] Comment on above: Expected: 03/31/2024, Expires: Start: 03-31-2024 End: 06-30-2024 Gamma glutamyl transferase [Enzymatic activity/volume] in Serum or Plasma GGT Lab Routine Elevated alkaline phosphatase level Expected: 03/31/2024, Expires: 06/30/2024 [facility] Comment on above: Expected: 03/31/2024, Expires: Start: 03-25-2024 End: 03-25-2024 Patient encounter procedure 03/25/2024 3:30 PM EDT Office Visit [facility] [address] [facility] [place] [phone] Mando Ling MD [address] [facility] [place] [address] 1 mo f/u - MRI today [facility] Comment on above: 1 mo f/u - MRI today Start: 03-25-2024 End: 03-25-2024 Patient encounter procedure [facility] [employer] Comment on above: MRI CERVICAL SPINE WO IVCON MRI CERVICAL WO Start: 03-23-2024 End: 03-23-2024 Patient encounter procedure 03/23/2024 3:30 PM EDT Office Visit [facility] [address] [facility] [address] [facility] [phone] Mando Ling MD [address] [facility] [place] [address] 1 mo f/u - MRI today [facility] Comment on above: 1 mo f/u - MRI today Start: 03-23-2024 End: 03-23-2024 Patient encounter procedure 03/23/2024 2:15 PM EDT Appointment RADIO [facility] [employer] [address] [facility] [place] [address] MRI CERVICAL SPINE WO IVCON [facility] [employer] Comment on above: MRI CERVICAL SPINE WO IVCON Start: 02-26-2024 End: 02-26-2024 Patient encounter procedure 02/26/2024 1:00 PM EDT Office Visit Family Medicine [facility] [address] [place] [address] Kanchan Ge MD [address] [place], [place] [phone] TCM SNF DC 02/14/24 Family Medicine [facility] Comment on above: TCM SNF DC 02/14/24 Start: 02-24-2024 End: 02-24-2024 Patient encounter procedure 02/24/2024 2:15 PM EDT Office Visit [facility] [address] [place] [phone] Mando Ling MD [address] [facility] [address] [place], [place] [id number] 1 MO F/U [facility] Comment on above: 1 MO F/U Start: 02-19-2024 Annual PCP Team Chronic Disease Visit Annual PCP Team Chronic Disease Visit [facility] Start: 02-19-2024 BP Controlled (<130/80) BP Controlled (<130/80) [facility] Start: 02-01-2024 Covid-19 Vaccine ( season) Covid-19 Vaccine () [facility] Start: 02-01-2024 Covid-19 Vaccine ( season) Covid-19 Vaccine ( season) [facility] Start: 02-01-2024 Influenza vaccination [facility] Start: 01-31-2024 ANNUAL PCP TEAM CHRONIC DISEASE VISIT ANNUAL PCP TEAM CHRONIC DISEASE VISIT [facility] Start: 01-31-2024 BP CONTROLLED (<130/80) BP CONTROLLED (<130/80) [facility] in Start: 01-22-2024 End: 01-22-2024 Patient encounter procedure 01/22/2024 11:00 AM EDT Office Visit [facility] [address] [place] [phone] Mando Ling MD [address] [facility] [place] [address] 2 week post op - facility to bring disc of xrays [facility] Comment on above: 2 week post op - facility to bring disc of xrays Start: 01-17-2024 ANNUAL PCP TEAM CHRONIC DISEASE VISIT ANNUAL PCP TEAM CHRONIC DISEASE VISIT [facility] Start: 01-17-2024 BP CONTROLLED (<130/80) BP CONTROLLED (<130/80) [facility] Start: 12-16-2023 End: 12-16-2023 Patient encounter procedure 12/16/2023 3:00 PM EDT Office Visit Family Traci Cordero [address] [facility] [place], [place] [address] Kanchan Ge MD [address] [facility] [place], [place] [phone] 2 week follow up -40 min visit per provider Family Traci Cordero Comment on above: 2 week follow up -40 min visit per eder tovar Start: 12-03-2023 End: 12-03-2023 Patient encounter procedure 12/03/2023 1:00 PM EDT Appointment Cat Scan [address] [facility], [place] [id number] Injury of head, initial encounter [S09.90XA]; Chronic anticoagulation [Z79.01] [facility] Comment on above: Injury of head, initial encounter [S09.9 0XA]; Chronic anticoagulation [Z79.01] Start: 11-05-2023 End: 11-05-2023 Patient encounter procedure 11/05/2023 2:40 PM EDT Office Visit Family Traci [facility] [address] [facility], [place] [address] Kanchan Ge MD [address] [facility] [place], [place] [phone] 3 month follow up Family Traci Cordero Comment on above: 3 month follow up Start: 10-02-2023 ANNUAL PCP TEAM CHRONIC DISEASE VISIT ANNUAL PCP TEAM CHRONIC DISEASE VISIT [facility] Start: 10-02-2023 BP CONTROLLED (<130/80) BP CONTROLLED (<130/80) [facility] Start: 08-20-2023 Covid-19 Vaccine ( season) Covid-19 Vaccine () [facility] Start: 07-04-2023 ANNUAL PCP TEAM CHRONIC DISEASE VISIT ANNUAL PCP TEAM CHRONIC DISEASE VISIT [facility] Start: 06-04-2023 ANNUAL PCP TEAM CHRONIC DISEASE VISIT ANNUAL PCP TEAM CHRONIC DISEASE VISIT [facility] Start: 06-02-2023 Advance Directive Discussion Advance Directive Discussion [facility] Start: 05-03-2023 ANNUAL PCP TEAM CHRONIC DISEASE VISIT ANNUAL PCP TEAM CHRONIC DISEASE VISIT [facility] Start: 05-03-2023 BP CONTROLLED (<130/80) BP CONTROLLED (<130/80) [facility] Start: 04-05-2023 ANNUAL PCP TEAM CHRONIC DISEASE VISIT ANNUAL PCP TEAM CHRONIC DISEASE VISIT [facility] Start: 03-19-2023 ANNUAL PCP TEAM CHRONIC DISEASE VISIT ANNUAL PCP TEAM CHRONIC DISEASE VISIT [facility] Start: 01-31-2023 Covid-19 Vaccine () Covid-19 Vaccine () [facility] Start: 01-31-2023 Influenza vaccination INFLUENZA (#1) [facility] Start: 01-11-2023 BP CONTROLLED (<130/80) BP CONTROLLED (<130/80) [facility] Start: 01-01-2023 End: 03-03-2023 Comprehensive metabolic 2000 panel - Serum or Plasma COMP METABOLIC PANEL Lab Routine Benign hypertension Expected: 01/01/2023, Expires: 03/03/2023 [facility] Work Phone: Comment on above: Expected: 01/01/2023, Expires: 3 Start: 01-01-2023 End: 03-03-2023 Lipid 1996 panel - Serum or Plasma LIPID PANEL BASIC Lab Routine Hyperlipidemia with target LDL less than 100 Expected: 01/01/2023, Expires: 03/03/2023 [facility] Work Phone: Comment on above: Expected: 01/01/2023, Expires: 3 Start: 12-06-2022 ANNUAL PCP TEAM CHRONIC DISEASE VISIT ANNUAL PCP TEAM CHRONIC DISEASE VISIT [facility] Start: 12-06-2022 BP CONTROLLED (<130/80) BP CONTROLLED (<130/80) [facility] Start: 10-23-2022 ANNUAL PCP TEAM CHRONIC DISEASE VISIT ANNUAL PCP TEAM CHRONIC DISEASE VISIT [facility] Start: 10-23-2022 BP CONTROLLED (<130/80) BP CONTROLLED (<130/80) [facility] Start: 07-20-2022 ANNUAL PCP TEAM CHRONIC DISEASE VISIT ANNUAL PCP TEAM CHRONIC DISEASE VISIT [facility] Start: 07-20-2022 BP CONTROLLED (<130/80) BP CONTROLLED (<130/80) [facility] Start: 06-02-2022 ADVANCE DIRECTIVE DISCUSSION ADVANCE DIRECTIVE DISCUSSION [facility] Start: 04-25-2022 PNEUMOCOCCAL: 65+ (2 - PPSV23 if available, else PCV20) PNEUMOCOCCAL: 65+ (2 - PPSV23 if available, else PCV20) [facility] Comment on above: Postponed from 12/31/2017 (Postponed - N ot Clinically Indicated) Start: 04-25-2022 PNEUMOCOCCAL: 65+ (2 - PPSV23 or PCV20) PNEUMOCOCCAL: 65+ (2 - PPSV23 or PCV20) [facility] Comment on above: Postponed from 12/31/2017 (Postponed - N ot Clinically Indicated) Start: 03-26-2022 Simple repair f/e/e/n/l/m 2.5cm/< RPR F/E/E/N/L/M 2.5 CM/< [facility] Work Phone: Start: 01-31-2022 Influenza vaccination INFLUENZA (#1) [facility] Start: 12-18-2021 COVID-19 VACCINE (5 - Booster) COVID-19 VACCINE (5 - Booster) [facility] Start: 08-11-2021 COVID-19 VACCINE (4 - Booster) COVID-19 VACCINE (4 - Booster) [facility] Start: 06-02-2021 ADVANCE DIRECTIVE DISCUSSION ADVANCE DIRECTIVE DISCUSSION [facility] Start: 2020 RSV Vaccine (1 - 1-dose 75+ series) RSV Vaccine (1 - 1-dose 75+ series) [facility] Start: 01-09-2019 BP CONTROLLED (<130/80) BP CONTROLLED (<130/80) [facility] Start: 12-31-2017 PNEUMOCOCCAL: 65+ (2 - PPSV23 if available, else PCV20) PNEUMOCOCCAL: 65+ (2 - PPSV23 if available, else PCV20) [facility] Start: 06-04-2017 End: 06-04-2017 Appointment Appointment [facility] Work Phone: Start: 12-11-2016 End: 01-08-2017 Follow Up Appt 6 months Follow Up Appt 6 months [facility] Work Phone: Start: 06-12-2016 End: 01-08-2017 Follow Up Appt 6 months Follow Up Appt 6 months [facility] Work Phone: Start: 06-03-2016 Urine microalbumin profile DTAP,TDAP,TD (2 - Td or Tdap) [facility] Start: 04-08-2016 End: 01-08-2017 Follow Up Appt 2 months Follow Up Appt 2 months [facility] Work Phone: Start: 03-27-2016 End: 01-08-2017 Follow up Appt 1 week Follow up Appt 1 week [facility] Work Phone: Start: 01-24-2016 End: 03-20-2016 Follow Up Appt Other Follow Up Appt Other [facility] Work Phone: Start: 11-15-2015 End: 03-20-2016 Follow Up Appt 3 months Follow Up Appt 3 months [facility] Work Phone: Start: 10-25-2015 End: 03-20-2016 Follow Up Appt 3 months Follow Up Appt 3 months [facility] Work Phone: Start: 08-25-2015 End: 01-18-2016 Follow Up Appt 2 months Follow Up Appt 2 months [facility] Work Phone: Start: 05-10-2015 End: 10-27-2015 Follow Up Appt 3 months Follow Up Appt 3 months [facility] Work Phone: Start: 05-03-2015 End: 10-27-2015 Follow up Appt 1 week Follow up Appt 1 week [facility] Work Phone: Start: 04-19-2015 End: 10-27-2015 Follow Up Appt Other Follow Up Appt Other [facility] Work Phone: Start: 04-12-2015 End: 10-27-2015 Follow up Appt 1 week Follow up Appt 1 week [facility] Work Phone: Start: 04-10-2015 End: 10-27-2015 Follow Up Appt Other Follow Up Appt Other [facility] Work Phone: Start: 04-07-2015 End: 04-27-2015 Follow Up Appt Other Follow Up Appt Other [facility] Work Phone: Start: 02-22-2015 End: 03-13-2015 Follow Up Appt Other Follow Up Appt Other [facility] Work Phone: Start: 06-07-2014 End: 03-13-2015 Follow Up Appt 2 months Follow Up Appt 2 months [facility] Work Phone: Start: 04-26-2014 End: 03-13-2015 Follow Up Appt 6 weeks Follow Up Appt 6 weeks [facility] Work Phone: Start: 03-01-2014 End: 03-13-2015 Follow Up Appt 2 months Follow Up Appt 2 months [facility] Work Phone: Start: 12-21-2013 End: 03-13-2015 Follow Up Appt 2 months Follow Up Appt 2 months [facility] Work Phone: Start: 11-30-2013 End: 12-01-2013 Follow up Appt 3 weeks Follow up Appt 3 weeks [facility] Work Phone: Start: 10-26-2013 End: 10-26-2013 Follow Up Appt Other Follow Up Appt Other [facility] Work Phone: Start: 2005 RSV Vaccine (1 - 1-dose 60+ series) RSV Vaccine (1 - 1-dose 60+ series) [facility] Start: 1995 SHINGRIX VACCINE (1 of 2) SHINGRIX VACCINE (1 of 2) [facility] Start: 1963 Anxiety Screening Anxiety Screening [facility] Start: 1963 HEPATITIS C SCREENING HEPATITIS C SCREENING [facility] Start: 1963 Hepatitis C screening Hepatitis C Screening [facility] End: 12-31-2024 CT Head WO contrast CT BRAIN WO IVCON Radiology STAT Injury of head, initial encounter Chronic anticoagulation 1 Occurrences starting 12/02/2023 until 12/31/2024 [facility] Work Phone: Comment on above: 1 Occurrences starting 12/02/2023 until 12/31/2024 Doppler ultrasonogra phy of aorta [facility] End: 01-17-2024 ECG COMPLETE ECG COMPLETE ECG Routine CHAU (dyspnea on exertion) Bilateral lower extremity edema 1 Occurrences starting 01/16/2023 until 01/17/2024 [facility] Work Phone: Comment on above: 1 Occurrences starting 01/16/2023 until 01/17/2024 End: 01-17-2024 Echocardiography ECHO Cardiology DUC CHAU (dyspnea on exertion) 1 Occurrences starting 01/16/2023 until 01/17/2024 [facility] Work Phone: Comment on above: 1 Occurrences starting 01/16/2023 until 01/17/2024 End: 04-26-2025 EMG(NEURO/NI) EMG(NEURO/NI) EMG Routine S/P cervical spinal fusion 1 Occurrences starting 04/26/2024 until 04/26/2025 [facility] Work Phone: Comment on above: 1 Occurrences starting 04/26/2024 until 04/26/2025 Hemoglobin.gastroint estin al.lower [Presence] in Stool by Immunoassay IMMUNOCHEMICAL FECAL OCCULT BLOOD TEST Lab Routine Normocytic anemia Ordered: 02/02/2025 [facility] Comment on above: Ordered: 02/02/2025 End: 08-28-2025 LUNG VOLUMES LUNG VOLUMES PFT Routine CHAU (dyspnea on exertion) 1 Occurrences starting 07/29/2024 until 08/28/2025 [facility] Comment on above: 1 Occurrences starting 07/29/2024 until 08/28/2025 End: 03-25-2025 MR Cervical spine WO contrast MRI CERVICAL SPINE WO IVCON Radiology Routine Spinal stenosis of cervical region 1 Occurrences starting 02/24/2024 until 03/25/2025 [facility] Work Phone: Comment on above: 1 Occurrences starting 02/24/2024 until 03/25/2025 MR Cervical spine WO contrast MRI CERVICAL SPINE WO IVCON Radiology Routine Spinal stenosis of cervical region 04/26/2024 1:26 PM EST [facility] Work Phone: End: 02-15-2024 NM CARDIAC PERF STRESS/PHARM NM CARDIAC PERF STRESS/PHARM Radiology DUC CHAU (dyspnea on exertion) 1 Occurrences starting 01/16/2023 until 02/15/2024 [facility] Work Phone: Comment on above: 1 Occurrences starting 01/16/2023 until 02/15/2024 End: 08-28-2025 OXIMETRY WITH AMBULATION OXIMETRY WITH AMBULATION PFT Routine CHAU (dyspnea on exertion) 1 Occurrences starting 07/29/2024 until 08/28/2025 [facility] Comment on above: 1 Occurrences starting 07/29/2024 until 08/28/2025 Patient Education [facility] Work Phone: Patient referral [facility] Work Phone: POST VOID RESIDUAL POST VOID RES IDUAL Procedures Routine BPH with obstruction/lower urinary tract symptoms Ordered: 01/11/2022 [facility] Work Phone: Comment on above: Ordered: 01/11/2022 End: 08-28-2025 SPIROMETRY - BASELINE AND POST DILATOR SPIROMETRY - BASELINE AND POST DILATOR PFT Routine CHAU (dyspnea on exertion) 1 Occurrences starting 07/29/2024 until 08/28/2025 [facility] Work Phone: Comment on above: 1 Occurrences starting 07/29/2024 until 08/28/2025 End: 06-03-2025 US Abdomen RUQ US ABD RIGHT UPPER QUADRANT Radiology Routine Elevated alkaline phosphatase level 1 Occurrences starting 05/04/2024 until 06/03/2025 [facility] Work Phone: Comment on above: 1 Occurrences starting 05/04/2024 until 06/03/2025 US Abdomen RUQ US ABD RIGHT UPP ER QUADRANT Radiology Routine Elevated alkaline phosphatase level 05/06/2024 2:28 PM EST [facility] Work Phone: End: 09-18-2025 XR CERV OTHER 4V AP/LAT/FLX/EXT XR CERV OTHER 4V AP/LAT/FLX/EXT Radiology Routine S/P cervical spinal fusion 1 Occurrences starting 08/19/2024 until 09/18/2025 [facility] Work Phone: Comment on above: 1 Occurrences starting 08/19/2024 until 09/18/2025 End: 02-20-2025 XR Cervical spine AP and Lateral XR CERV GENERAL 2V AP/LAT Radiology Routine S/P cervical spinal fusion 1 Occurrences starting 01/22/2024 until 02/20/2025 [facility] Work Phone: Comment on above: 1 Occurrences starting 01/22/2024 until 02/20/2025 XR Cervical spine AP and Lateral XR CERV GENERAL 2V AP/LAT Radiology Routine S/P cervical spinal fusion 02/26/2024 2:32 PM EDT [facility] Work Phone: XR Cervical spine AP and Lateral XR CERV GENERAL 2V AP/LAT Radiology Routine S/P cervical spinal fusion 04/27/2024 3:44 PM EST [facility] XR Cervical spine AP and Lateral XR CERV GENERAL 2V AP/LAT Radiology Routine S/P cervical spinal fusion 08/19/2024 1:59 PM EDT [facility] Work Phone: XR Chest PA and Lateral XR CHEST 2V FRONTAL/LAT Radiology Routine CHAU (dyspnea on exertion) 07/29/2024 3:32 PM EST [facility] Work Phone: End: 05-26-2025 XR Shoulder - left 2 Views XR SHOULDER LIMITED 2V AP/TRUE AP LEFT Radiology Routine S/P cervical spinal fusion 1 Occurrences starting 04/26/2024 until 05/26/2025 [facility] Comment on above: 1 Occurrences starting 04/26/2024 until 05/26/2025 XR Shoulder - left 2 Views XR SHOULDER LIMITED 2V AP/TRUE AP LEFT Radiology Routine S/P cervical spinal fusion 05/06/2024 2:27 PM EST [facility] Work Phone: End: 05-26-2025 XR Shoulder - right 2 Views XR SHOULDER [id number] AP/TRUE AP RIGHT Radiology Routine S/P cervical spinal fusion 1 Occurrences starting 04/26/2024 until 05/26/2025 [facility] Comment on above: 1 Occurrences starting 04/26/2024 until 05/26/2025 XR Shoulder - right 2 Views XR SHOULDER [id number] AP/TRUE AP RIGHT Radiology Routine S/P cervical spinal fusion 04/27/2024 3:43 PM EST [facility] Work Phone: [facility] Immunizations Immunization Date Immunization Notes Care Provider Michael tapia 02-01-2025 influenza, high dose seasonal, preservative-free Anne Nixonlogespinoza NURSING INFORMATICS SPECIALIST.TABLEMAN Work Phone: [facility] 10-27-2024 COVID-19 vaccine, ag e 12+ yr (PFIZER-BIONTECH COMIRNATY) Kanchan Ge MD Work Phone: [facility] 02-26-2024 COVID-19 vaccine, ag e 12+ yr (PFIZER-BIONTECH COMIRNATY) Kanchan Ge MD Work Phone: [facility] 02-26-2024 influenza, high dose seasonal, preservative-free Kanchan Ge MD Work Phone: [facility] 04-21-2023 COVID-19 vaccine, ag e 12+ yr, 2022- season (PFIZER-BIONTECH) Kanchan Ge MD Work Phone: [facility] 02-18-2023 influenza (HD-IIV4) vaccine, age 65+ yr, high dose, quadrivalent, PF (FLUZONE HIGH-DOSE) Kanchan Ge MD Work Phone: [facility] 02-18-2023 influenza virus vaccine, unspecified formulation Kanchan Ge MD Work Phone: [facility] 07-04-2022 pneumococcal polysaccharide vaccine, 23 valent Kanchan Ge MD Work Phone: [facility] 03-26-2022 tetanus toxoid, redu yaya diphtheria toxoid, and acellular pertussis vaccine, adsorbed Dr. Igor Ge Work Phone: [facility] 03-19-2022 COVID-19 booster vaccine, age 12+ yr, bivalent (PFIZER-BIONTECH) Kanchan Ge MD Work Phone: [facility] 03-19-2022 influenza, high-dose , quadrivalent vaccine (FLUZONE HIGH DOSE QUADRIVALENT) Kanchan Ge MD Work Phone: [facility] 10-23-2021 COVID-19 vaccine, ag e 12+ yr (PFIZER-BIONTECH - AN TOP) Kanchan Ge MD Work Phone: [facility] 04-23-2021 influenza, high-dose , quadrivalent vaccine (FLUZONE HIGH DOSE QUADRIVALENT) Kanchan Ge MD Work Phone: [facility] 04-13-2021 COVID-19 vaccine (UNSPECIFIED) Kanchan Ge MD Work Phone: [facility] Work Phone: 04-13-2021 COVID-19 vaccine, ag e 12+ yr (PFIZER-BIONTECH - PURPLE TOP) Kanchan Ge MD Work Phone: [facility] 08-08-2020 COVID-19 original vaccine, age 12+ yr, monovalent (PFIZER-BIONTECH - PURPLE TOP) Kanchan Ge MD Work Phone: [facility] Work Phone: 08-08-2020 COVID-19 vaccine (UNSPECIFIED) Kanchan Ge MD Work Phone: [facility] Work Phone: 07-19-2020 COVID-19 original vaccine, age 12+ yr, monovalent (PFIZER-BIONTECH - PURPLE TOP) Kanchan Ge MD Work Phone: [facility] Work Phone: 07-19-2020 COVID-19 vaccine (UNSPECIFIED) Kanchan Ge MD Work Phone: [facility] Work Phone: 04-20-2020 influenza, high-dose , quadrivalent vaccine (FLUZONE HIGH DOSE QUADRIVALENT) Kanchan Ge MD Work Phone: [facility] 07-19-2019 influenza, high dose seasonal, preservative-free Kanchan Ge MD Work Phone: [facility] 06-15-2019 tetanus toxoid, redu yaya diphtheria toxoid, and acellular pertussis vaccine, adsorbed Dr. Igor Ge Work Phone: [facility] Work Phone: 03-16-2018 influenza, high dose seasonal, preservative-free Kanchan Ge MD Work Phone: [facility] 03-16-[address] Igor Ge Work Phone: [facility] 03-16-2017 influenza, high dose seasonal, preservative-free Kanchan Ge MD Work Phone: [facility] 03-16-2017 influenza, seasonal, injectable, preservative free Kanchan Ge MD Work Phone: [facility] Work Phone: 12-31-2016 pneumococcal conjuga te vaccine, 13 valent Kanchan Ge MD Work Phone: [facility] 06-03-2006 tetanus toxoid, redu yaya diphtheria toxoid, and acellular pertussis vaccine, adsorbed Kanchan Ge MD Work Phone: [facility] Payers Date Payer Category Payer Self-pay [id number] 2021 Medicare AETNA MEDICARE A ETNA MEDICARE PPO [id number] 2021-[facility] [phone] [address] [place] [address] [facility] [id number] 2021 Medicare AETNA MEDICARE A ETNA MEDICARE PPO [id number] 2021-Present [phone] [address] [place] [address] [facility] [id number] 2021 Medicare (Managed Care) AETNA ME DICARE [id number] 2017 Medicare [id number] 2015 Private Health Insurance [facility] [id number] 1945 Unknown [id number] 1945 Unknown [id number] 1945 Unknown [id number] Medicare [id number] Unknown [id number] Social History Date Type Detail Facility Start: 01-08-2013 End: 03-09-2025 Tobacco smoking status NJIS Ex-smoker [facility] Start: 06-02-1958 End: 06-02-1988 History of tobacco use Current smoker [facility] Start: 06-02-1958 End: 06-02-1988 History of tobacco use Cigarette Smoker [facility] History of tobacco use Chews Tobacco [facility] Start: 07-20-2021 End: 02-01-2025 Alcohol intake Current drinker of alcohol (finding) [facility] Start: 01-08-2013 End: 01-24-2022 Tobacco Comment Brief relaps after of spouse. [facility] Start: 1945 Sex Assigned At Not on file C [facility] Start: 08-16-2021 End: 12-09-2022 Tobacco smoking status NHIS Unknown if ever smoked [facility] Start: 07-23-2019 Non-smoker [facility] Start: 1945 Sex Assigned At Male [facility] Start: 06-20-2021 End: 03-19-2022 Exposure to SARS-CoV-2 (event) Not sure [facility] Start: 01-08-2013 End: 01-01-2023 Cigarettes smoked current (pack per day) - Reported 1 [facility] Start: 01-08-2013 End: 10-27-2024 Tobacco use and exposure User of smokeless tobacco [facility] Work Phone: Start: 01-01-2023 End: 01-16-2023 Tobacco use panel [facility] Start: 05-03-2012 Adult Depression Screening Assessment 0 [facility] Has the [employer], [place], [employer], or water [employer] threatened to shut off services in your home in past 12Mo No [facility] Work Phone: (I/We) worried elmer er (my/our) food would run out before (I/we) got money to buy more. Never true [facility] Start: 01-22-2024 Tobacco use and exposure Former smokeless tobacco user [facility] Start: 01-22-2024 End: 08-19-2024 Alcoholic beverage intake Ex-drinker (finding) [facility] Medical Equipment Procedure Code Equipment Code Equipment Origin al Text Equipment Identifier Dates AMNIOFILL, 250MG FDA Start: 07-30-2019 AMNIOFILL, 250MG FDA Start: 07-30-2019 AMNIOFILL, 250MG FDA Start: 07-30-2019 AMNIOFILL, 250MG FDA Start: 07-30-2019 AMNIOFILL, 250MG FDA Start: 07-30-2019 Chips Bone Graft Cancellous Bone 4-10 Mm Container 15 Cc Volume - [id number] Start: 01-01-2024 Graft Bone Sub 5 cc Dbm Putty Inert Reverse Phase [employer] - [id number] Start: 01-01-2024 Graft Bone Sub 10cc Dbm Putty Inert Reverse Phase [employer] - [id number] Start: 01-01-2024 Nate Spnl 55mm 3.5mm [place] - [id number] Start: 01-01-2024 Comment on above: Description: Added f rom worksheet per Nurse Check Pilot. Screw St Spnl Oc t [place] Ns Lf - [id number] Start: 01-01-2024 Comment on above: Description: Added f rom worksheet per Nurse Check Pilot. Screw 3.5 X 14mm - [id number] Start: 01-01-2024 Comment on above: Description: Added f rom worksheet per Nurse Check Pilot. AMNIOFILL, 250MG FDA Start: 07-30-2019 Functional Status Date Assessment Result Facility 01-09-2024 Are you deaf, or do you have serious difficulty hearing No 01/09/2024 12:40 PM EDT Mirlande Sullivan, KHRIS No [facility] 01-09-2024 Are you blind, or do you have serious difficulty seeing, even when wearing glasses No 01/09/2024 12:40 PM EDT Mirlande Sullivan, KHRIS No [facility] 01-09-2024 Do you have serious difficulty walking or climbing stairs Yes 01/09/2024 12:40 PM EDMirlande Jackson, KHRIS Yes [facility] 01-09-2024 Do you have difficul ty dressing or bathing Yes 01/09/2024 12:40 PM EDMirlande Jackson, KHRIS Yes [facility] 01-09-2024 Because of a physica l, mental, or emotional condition, do you have difficulty doing errands alone such as visiting a physician's office or shopping No 01/09/2024 12:40 PM EDT Mirlande Sullivan, KHRIS No [facility] Mental Status Date Assessment Result Facility 01-09-2024 Because of a physica l, mental, or emotional condition, do you have serious difficulty concentrating, remembering, or making decisions No 01/09/2024 12:40 PM EDT Mirlande Sullivan, KHRIS No [facility] Clinical Notes 07-16-2021 to 03-10-2025 Note Date & Type Note Facility 03-10-2025 Discharge summary [facility] 03-10-2025 Radiology Diagnostic study note [facility] Imaging Services [address] [place] [address] Abdomen/Pelvis without Cont MR#: [id number] Acct: [id number] Name: VICKI RANDLE Rep #: [id number] : 1945 M 79 From: Garrett Edward MD PCP: Dr. Igor Ge MD Status: REG ER Study:Abdomen/Pelvis without Cont Date of Exa m: 03/09/25 Exam# [id number] Ordering Dr: Pramod Rizvi DO PROCEDURE: ABDOMEN/PELVIS WITHOUT CONT 03/09/2025 REASON FOR EXAM: URINARY RETENTION TECHNIQUE: Procedure Code: CTABDPEL Modality: CT Procedure: ABDOMEN/PELVIS WITHOUT CONT Noncontrast technique limits evaluation of the abdominal and pelvic viscera. Coronal and Sagittal reconstruction series were provided. One or more dose reduction techniques were used (e.g., Automated exposure control, adjustment of the mA and/or kV according to patient size, use of iterative reconstruction technique). COMPARISON: 01/01/2024. FINDINGS: Lack of IV and oral contrast limits evaluation. Densities in the posterior medial aspects of the bilateral lower lobes of the lungs are concerning for consolidated airspace infiltrates, similar to the previous study. Probable small right pleural effusion, unchanged.. Bilateral renal cysts, unchanged. No urinary stone or obstructive uropathy. Extensive endovascular stenting within the abdominal aorta and bilateral common iliac arteries, extending through a 5.2 cm fusiform infrarenal abdominal aortic aneurysm, with fusiform dilatation of the bilateral common iliac arteries, unchanged. 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 Mild atherosclerotic calcifications, unchanged. No evidence of a bowel obstruction. A few sigmoid diverticula are noted, without inflammatory changes. The appendix is visualized and normal-appearing. Prominent prostate gland, measuring 5.4 x 5.6 by 5.5 cm, unchanged from the previous study. No intraperitoneal free air or free fluid. [id number] thoracolumbar spondylosis, unchanged. Multiple right-sided ribfractures are noted, all of which are nonacute and not significantly changed from the previous study. A single ununited fracture of what is believed to be the right 10th rib is unchanged from the previous study. CT/Abdomen/Pelvis without Cont IMPRESSION: 1. Bibasilar pulmonary densities concerning for airspace infiltrates, similar to the previous study. Probable small right pleural effusion, unchanged. 2. Extensive endovascular stenting of the abdominal aorta and bilateral common iliac arteries. 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 3. Stable prominent prostate gland. 4. Nonacute right-sided rib fractures. Reading Location: [facility] CC: Dr. Pramod Murguia DO; Dr. Igor Ge MD ~ Relocation Services Specialist: Signed [facility] 03-09-2025 Discharge summary Note Date/Time March 10, 2025 1:15am [facility] Medical Records Department [address] [place] [id number] Emergency Department Summary 03/09/25 MR#: [id number] Acct: [id number] Name: VICKI RANDLE Rep #:[id number] : 1945 79 From: Pramod dye DO PCP: Dr. Igor Ge MD Status :REG ER Location: ED HPI History of Present Illness Chief Complaint: Complaint Narrative Narrative: Chief complaint and HPI: 79-year-old male with past medical history of BPH, skincancer presents for evaluation of urinary retention. Patient states since yesterday evening he has been having difficulty urinating. Does not feel that he is completely voiding. States he has been having some suprapubic abdominal pain secondary to it. Has been taking his Flomax. Does not follow with urology. Denies any fever, chills, shortness of breath, chest pain, nausea, vomiting, back pain. No history of kidney stones. Denies any blood in his urine. Review of systems: See HPI Medications: As listed on the chart Allergies: As listed on the chart PFSH: Per chart Vital signs: As listed on the chart. Reviewed. Physical exam: Gen: A&O x3, NAD Head: Normocephalic, atraumatic Eyes: No sclera icterus, conjunctiva clear ENT: Moist mucous membranes CV: RRR, no murmurs Resp: Lungs CTA BL, no w/r/c GI: Abd soft, non-distended, mild tenderness to palpation suprapubically, no r/r/g : No CVA tenderness. Circumcised penis. No penile tenderness or discharge. No penile or testicular swelling. Normal lie and position of the testicles. No testicular tenderness, masses, or skin changes. Cremasteric reflexes intact and equal bilaterally. No rashes. No palpable hernias. Musc: Moves all extremities Skin: Warm, dry Neuro: Alert, oriented, grossly intact, sensation intact Psych: Cooperative, appropriate mood and affect [facility] Medical History AAA (abdominal aortic aneurysm) AAA (abdominal aortic aneurysm) Abdominal aortic aneurysm (AAA) Actinic keratosis Actinic keratosis ACTINIC LESION WITH SEVERE ATYPIA Actinic skin damage ATYPICAL SQUAMOUS EPITHELIAL LESION WITH SOLAR KERATOSIS ATYPICAL SQUAMOUS LESION LEFT PREAURICULAR AREA Basal cell carcinoma Basal cell carcinoma of right postauricular region Carpal tunnel syndrome Cataract Cutaneous horn Former smoker GERD (gastroesophageal reflux disease) Hyperlipidemia Hypertension INFLAMED ACTINIC KERATOSIS INFLAMED ACTINIC KERATOSIS RIGHT VOLAR FOREARM Neoplasm of skin of ear Neoplasm of skin of forearm Neoplasm of skin of hand Neoplasm of skin of left cheek Neoplasm of skin of left lateral forehead Neoplasm of skin of neck Neoplasm of skin of nose Neoplasm of skin of buddhist region Neoplasm of skin of upper arm Neoplasm of skin of wrist Nodule of right lung Other seborrheic keratosis Personal history of skin cancer Prostate enlargement Pulmonary emphysema SCATTERED ACTINIC DAMAGE ON FACE AND UPPER EXTREMITIES Seborrheic keratosis Situational depression Solar keratosis 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 Squamous cell carcinoma Squamous cell carcinoma in situ Squamous cell carcinoma in situ Squamous cell carcinoma in situ Squamous cell carcinoma in situ of skin of left ear Squamous cell carcinoma of dorsum of right hand Squamous cell carcinoma of skin of left cheek Venous insufficiency of both lower extremities Home Medications ?Medication ?Instructions ?Recorded ?Last Taken ?Type finasteride 5 mg tablet 5 mg PO DAILY Prostate 11/1805/22/18 History 5 mg omeprazole 20 mg capsule,delayed 20 mg PO DAILY GERD 0 11/18/13 07/30/19 History release tamsulosin 0.4 mg capsule 0.4 mg PO DAILY URINE FLOW 0 11/18/13 05/22/18 History fluoxetine 20 mg capsule 20 mg PO DAILY DEPRESSION 05/22/18 History 20 mg brimonidine 0.2 % eye drops 1 drp ophthalmic (eye) BID glacoma 08/05/17 05/22/18 History 1 drp timolol maleate 0.5 % eye drops 1 drp ophthalmic (eye) BID glacoma 08/05/17 05/22/18 History (Timoptic) 1 drp carvedilol 3.125 mg tablet 3.125 mg PO BID #60 tabs 05/22/18 Rx amlodipine 10 mg tablet 2.5 mg PO DAILY 04/21/18 History apixaban 5 mg tablet (Eliquis) 5 mg PO BID 07/15/21 Un known History aspirin 81 mg tablet,delayed 81 mg PO QHS 03/26/22 Unk nown History release gabapentin 100 mg capsule 100 mg PO TID 03/26/22 Unkno wn History imiquimod 5 % topical cream packet 4 mm topical 5XW 6 weeks #30 ea 07/03/23 Unknown Rx Allergy/AdvReac Type Severity Reaction Status Date / Time adhesive AdvReac Itching Verified 03/09/25 21:19 atorvastatin (From Lipitor) AdvReac Other Verified 03/09/25 21:19 rosuvastatin calcium (From AdvReac ACHING Verified 03/09/25 21:19 Crestor) Family History Sister Diabetes Surgical History EXCISION ATYPICAL SQUAMOUS LESION EXCISION LESIONS AND SKIN CANCERS EXCISION OF SKIN CANCER FACE AND HANDS H/O knee surgery History of basal cell carcinoma excision History of carpal tunnel surgery History of cholecystectomy History of squamous cell carcinoma excision History of squamous cell carcinoma excision Hx of cataract surgery INTRADERMAL EXCISION LESIONS S/P AAA repair Social History housing: house Smoking Status: Former smoker second hand exposure: No quit status: has quit before alcohol intake: current details: [employer] SOCIAL substance use type: does not use what type of physical activity do you participate in: other seatbelt use: always do you feel safe at home: Yes additional social history: SUN EXPOSURE: FREQUENTLY EXAM Physical Exam Const Vital Signs: 03/09/25 21:20 03/09/25 23:19 03/10/25 01:00 Temperature 97.2 F L Temperature Source Temporal Pulse Rate 105 H 84 74 Respiratory Rate 20 H 18 18 Blood Pressure 150/84 H 165/80 H 160/79 H Blood Pressure Mean 106 108 106 Pulse Ox 97 98 97 Oxygen Delivery Method Room Air Room Air Room Air 03/10/25 01:12 Temperature 97.2 F L Temperature Source Pulse Rate 74 Respiratory Rate 18 Blood Pressure 160/79 H Blood Pressure Mean 106 Pulse Ox 97 Oxygen Delivery Method MDM MDM MDM Narrative Medical decision making narrative: 79-year-old male with past medical history of BPH, skin cancer presents for evaluation of urinary retention. Patient states since yesterday evening he has been having difficulty urinating. Does not feel that he is completely voiding. States he has been having some suprapubic abdominal pain secondary to it. Differential diagnosis includes but is not limited to urinary retention, hematuria, CAROL, electrolyte abnormality, UTI, urolithiasis. UA was obtained in triage, I agree with the UA that was obtained. Positive for blood. Negative for UTI. Patient will be bladder scanned for possible Schreiber placement. Laboratory workup ordered including CT abdomen pelvis without contrast. Bladderscan shows retention. Schreiber catheter will be placed. Patient had good urine output once Schreiber catheter was placed. A suprapubic abdominal pain resolved. It is mostly clear with small amounts of blood. CBC without leukocytosis. Patient has baseline anemia. BMP unremarkable. CT abdomen pelvis shows bibasilar pulmonary densities concerning for airspace infiltrates, similar to previous study. Probable small right pleural effusion, unchanged. Extensive endovascular stenting of the abdominal aorta and bilateral common iliac arteries. 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 Patient states he follows regularly with a physician for this. Stable prominent prostate gland. Nonacute right sided rib fractures. No urolithiasis. Patient's urinary retention is likely secondary to BPH. He will discharge home with Schreiber. Follow-up with urology. He was educated to return back to the ED if symptoms change or worsen or if Schreiber catheter stops draining. He confirmed understand the plan. Patient able to discharge home. Impression: 1. Urinary retention status post Schreiber placement 2. BPH with history of BPH Lab Data Labs: Laboratory Results - last 24 hr 03/09/25 03/09/25 22:00 22:52 WBC 8.9 RBC 5.02 Hgb 12.7 L Hct 41.4 MCV 82.5 MCH 25.3 L MCHC 30.7 L RDW Std Deviation 45.1 H RDW Coeff of Endy 15.0 H Plt Count 279 MPV 8.8 Immature Gran % (Auto) 0.300 Neut % (Auto) 76.1 H Lymph % (Auto) 16.1 L [place] % (Auto) 6.7 Eos % (Auto) 0.6 Baso % (Auto) 0.2 Absolute Neuts (auto) 6.8 Absolute Lymphs (auto) 1.43 Nucleated RBC % 0 Sodium 139 Potassium 4.3 Chloride 102 Carbon Dioxide 25.0 Anion Gap 12 BUN 10 Creatinine 0.89 Estim Creat Clear Calc 86.69 Est GFR (MDRD) Non-Af 87 BUN/Creatinine Ratio 11.7 Glucose 87 Calcium 8.9 Urine Color Yellow Urine Clarity Clear Urine pH 7.0 Ur Specific [place] 1.010 Urine Protein 15 H Urine Glucose (UA) Normal Urine Ketones Negative Urine Occult Blood 10 H Urine Nitrite Negative Urine Bilirubin Negative Urine Urobilinogen Normal Ur Leukocyte Esterase Negative Urine RBC 0-5 SEEN Urine WBC 0-5 SEEN Ur Squamous Epith Cells 0-5 SEEN Urine Bacteria RARE Hyaline Casts 0-5 SEEN Urine Mucus 0 SEEN Radiography Diagnostic Testing: Clinical Impression(s) from Imaging Studies Abdomen/Pelvis CT 03/09/25 22:36 IMPRESSION: 1. Bibasilar pulmonary densities concerning for airspace infiltrates, similar to the previous study. Probable small right pleural effusion, unchanged. 2. Extensive endovascular stenting of the abdominal aorta and bilateral common iliac arteries. 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 3. Stable prominent prostate gland. 4. Nonacute right-sided rib fractures. Reading Location: [facility] Discharge Plan Triage Chief Complaint: Complaint ED Provider: Pramod Murguia Dx/Rx/DC Orders Clinical Impression: Acute urinary retention, BPH with urinary obstruction Instructions: Benign Prostatic Hyperplasia, ED Urinary Retention, Male Prescriptions: No Action brimonidine 0.2 % drops 1 drp OPHTHALMIC BID timolol maleate [Timoptic] 0.5 % drops 1 drp OPHTHALMIC BID imiquimod 5 % cream in packet 4 mm topical 5XW 42 Days Qty: 30 2RF Rx Instructions: apply once daily Friday through Friday before bedtime weekends off for 6 weeks tamsulosin 0.4 MG capsule 0.4 mg PO DAILY omeprazole 20 MG capsule 20 mg PO DAILY finasteride 5 MG tablet 5 mg PO DAILY fluoxetine 20 MG capsule 20 mg PO DAILY carvedilol 3.125 MG tablet 3.125 mg PO BID Qty: 60 0RF amlodipine 10 MG tablet 2.5 mg PO DAILY Eliquis 5 mg tablet 5 mg PO BID Patient Comments: TAKE 1 TABLET BY MOUTH TWICE A DAY aspirin [Aspir-81] 81 mg Tablet,Delayed Release (Dr/Ec) 81 mg PO QHS gabapentin 100 mg capsule 100 mg PO TID Patient Comments: TAKE 1 CAPSULE BY MOUTH THREE TIMES DAILY FOR 30 DAYS. Primary Care Provider: Igor Ge Referrals: Igor Ge MD [Primary Care Provider, Family Practice] - 3-5 Days Ronak Owens MD [Med Staff - Active Staff, Urology] - 3-5 Days Activity Restrictions/Additional Instructions: monitor Schreiber output. If Schreiber catheter stops draining you need to be seen in the emergency department. Follow-up with your primary care physician and urologist. Return back to the ED if symptoms change or worsen. Print Language: Vincentian Disposition Disposition: Home, Self Care What to do if you have Problems For any increased pain, shortness of breath, bleeding, nausea or vomiting, chestpain, or any unexpected problems, contact your Primary Care Provider. Call [facility] ([phone]) or report to the closest Emergency Room. Call 911 if necessary. 03/10/25114 <Electronically signed by Pramod Murguia DO> Cosigner Signature (if applicable): CC: Dr. Igor Ge MD ~ Signed [facility] Work Phone: 1(502) 517-286409-04-2025 Telephone encounter Note* Telephone Encounter - Anne Bethea APRN.CNP - 02/03/2025 7:28 AM EDT Refill for Finasteride sent. Anne Bethea APRN.CNP [facility]09-04-2025 Miscellaneous Notes* Telephone Encounter - Anne Bethea APRN.CNP - 02/03/2025 7:28 AM EDT Refill for Finasteride sent. Anne Bethea APRN.CNP * Telephone Encounter - Anne Bethea APRN.CNP - 02/02/2025 11:10 AM EDT Hemoglobin is a little lower than last check. Needs additional blood work as well as bringing stoolto sample for blood. Will need to obtain specimen container from lab. Alk phos elevated but trending down. Albumin remains low. Recommend increasing protein in diet. The rest of his blood work is in a cceptable ranges. Anne Bethea APRN.CNP documented in [facility] Telephone encounter Note * Telephone Encounter - Anne Bethea APRN.CNP - 02/02/2025 11:10 AM EDT Hemoglobin is a little lower than last check. Needs additional blood work as well as bringing stoolto sample for blood. Will need to obtain specimen container from lab. Alk phos elevated but trending down. Albumin remains low. Recommend increasing protein in diet. The rest of his blood work is in a cceptable ranges. Anne Bethea APRN.CAITY [facility]09-02-2025 Instructions* Patient Instructions* Anne Bethea APRN.CNP - 02/01/2025 2:54 PM EDT - Continue taking Flomax once daily as you have been. - Your finasteride prescription has been refilled--take it as before to help with urination. - Keep receiving your Repatha injection every two weeks as scheduled. - Increase protein in your diet (for example, more meat, peanut butter, eggs) to help improve your albumin levels. - Cut back on alcohol--try to limit the number of beers you drink. - Schedule an appointment with a respiratory coordinator to have the scabby-appearing spots on your neck and behind your ear evaluated; your referral order is already in the system. - Call Dr. Hess s office in [place] to reschedule the neck follow-up you missed in July. - You received a flu shot today. - Plan to return in three months for a follow-up visit; you may have blood work drawn today or at that visit. documented in this encounterK[facility]09-[facility]-2025 NoteHNO ID: [id number] Author: ANNE BETHEA APRN.CNP Service: ? Author Type: Nurse Practitioner Type: Progress Notes Filed: 02/01/2025 14:53 Note Text: 02/01/2025 Patient presents with: F/U 3 Month Recording using [employer] software for draft documentation of the visit was discussed with the patient/authorized labor relations representative; all questions welcomed and answered. Patient/authorized labor relations representative agreed to proceed SUBJECTIVE: This is a 79 year old that is here today for Above Complaints.. BPH: - Adrian Randle is taking Flomax and finasteride daily. - Adrian denies dysuria, hematuria, or urinary retention. Hyperlipidemia: - Adrian administers Repatha injections every 2 weeks. Skin Cancer: - Adrian has a history of skin cancer. - Adrian had a lesion removed from his back last year by Dr. Mascorro. - Adrian was referred to dermatology in September for a suspicious lesion on the neck; has not followed up. 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 Dyspnea: - Adrian has chronic dyspnea, unchanged in severity. Nutrition: - Adrian is eating a lot of meat and peanut butter. - Adrian is not supplementing with Boost or Ensure due to cost. Social History: - Adrian chews tobacco, approximately one can every 2 days. - Adiran consumes a couple of beers nightly. Additional Information: - Adrian missed a recent appointment with Dr. Hess in [place] for neck issues; last seen in July. - Adrian denies recent falls, hospitalizations, or illnesses. PAST MEDICAL HISTORY Diagnosis Date AAA (abdominal aortic aneurysm) 02/06/2012 01/10/17: CT abd 4.8 cm. s/p aortobiliac stent.-Dr. Johan Berg Actinic keratosis On [facility], Dr. Dudley Acute deep vein thrombosis (DVT) of femoral vein of left lower extremity (HCC) 03/16/2018 At high risk for falls Basal cell carcinoma 2019 left cheek Benign essential tremor Benign hypertension 07/13/2015 BPH with obstruction/lower urinary tract symptoms Bruit right carotid artery Cervical spine fracture (HCC) C4 s/p fusion Chewing tobacco use Class 1 obesity due to excess calories without serious comorbidity with body mass index (BMI) of 33.0 to 33.9 in adult Closed rib fracture 01/2023 right rib fracture after fall Esophageal reflux Gastroesophageal reflux Facet arthritis of lumbar region 06/27/2014 History of carpal tunnel surgery 1990s History of fusion of cervical spine Hypertrophy of prostate without urinary obstruction and other lower urinary tract symptoms (LUTS) Hypertrophy of the prostate w/o obstruction Left leg DVT (HCC) 02/19/2018 Mixed hyperlipidemia Hyperlipidemia 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 Melo Personal history of colonic polyps Pulmonary emphysema (HCC) 12/31/2016 Sebaceous cyst Situational depression 07/03/2016 Squamous cell carcinoma 04/04/2015 Left cheek Venous insufficiency of both lower extremities 07/01/2014 Vertebral artery dissection (HCC) ALLERGIES Lipitor [Atorvastatin Calcium], Rosuvastatin Calcium, and Bzbnokd-Znf-Sop Reductase Inhibitors MEDICATIONS Current Outpatient Medications Medication Sig finasteride (PROSCAR) 5 mg tablet Take 5 mg by mouth once daily. evolocumab (REPATHA SURECLICK) 140 mg/mL pen injector Inject 140 mg subcutaneously every 2 weeks. gabapentin (NEURONTIN) 300 mg capsule Take 1 capsule by mouth three times a day for 30 days. melatonin 3 mg tablet Take 3 tablets by mouth daily at bedtime. MESMESRX-PMHIPWFXN-ZYXHBPBA 3.5 MG/ML-10,000 UNIT/ML-0.1% EYE DROPS Use 1 Drop in both eyes four times daily. acetaminophen (TYLENOL) 325 mg tablet Take 3 tablets by mouth every 6 hours as needed for pain. fluticasone (FLONASE) 50 mcg/actuation nasal spray Use 2 Sprays in each nostril once daily. Rinse mouth after use. aspirin, enteric coated (ECOTRIN LOW STRENGTH) 81 mg EC tablet Take 1 tablet by mouth once daily. tamsulosin (FLOMAX) 0.4 mg Take 1 capsule by mouth once daily. No current facility-administered medications for this visit. Medications and allergies reviewed by this provider. SOCIAL HISTORY SOCIAL HISTORY[1] REVIEW OF SYSTEMS All other reviewed and negative other than HPI. OBJECTIVE: BP 104/62 Pulse 80 Resp 18 Wt 109.3 kg (241 lb) SpO2 92% BMI 31.80 kg/m? . Vital signs reviewed by this provider. APPEARANCE Well appearing, alert, in no acute distress, well-hydrated, well nourished. EYES conjunctiva and sclera normal. HEART RRR with normal S1 and S2, no murmurs, no gallops, no JVD appreciated LUNG clear to auscultation. No wheezes, rhonchi or rales EXTREMITIES Extremities normal, No deformities, No skin discoloration, and No edema SKIN Scabbed lesion to posterior right neck and behind ear Latest Ref Rng 10/27/2024 WBC 3.70 - 11.00 k/uL 7.87 RBC 4.20 (more content not included)...[facility] [id number] History of Present illness Narrative* Podlogar, GUY Rodríguez.TABLEMAN - 02/01/2025 2:27 PM EDT 02/01/2025 Patient presents with: F/U 3 Month Recording using [employer] software for draft documentation of the visit was discussed with the patient/authorized labor relations representative; all questions welcomed and answered. Patient/authorized labor relations representative agreed to proceed SUBJECTIVE: This is a 79 year old that is here today for Above Complaints.. BPH: - Adrian Randle is taking Flomax and finasteride daily. - Adrian denies dysuria, hematuria, or urinary retention. Hyperlipidemia: - Adrian administers Repatha injections every 2 weeks. Skin Cancer: - Adrian has a history of skin cancer. - Adrian had a lesion removed from his back last year by Dr. Mascorro. - Adrian was referred to dermatology in September for a suspicious lesion on the neck; has not followed up. 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 Dyspnea: - Adrian has chronic dyspnea, unchanged in severity. Nutrition: - Adrian is eating a lot of meat and peanut butter. - Adrian is not supplementing with Boost or Ensure due to cost. Social History: - Adrian chews tobacco, approximately one can every 2 days. - Adrian consumes a couple of beers nightly. Additional Information: - Adrian missed a recent appointment with Dr. Hess in [place] for neck issues; last seen in July. - Adrian denies recent falls, hospitalizations, or illnesses. PAST MEDICAL HISTORY Diagnosis Date AAA (abdominal aortic aneurysm) 02/06/2012 01/10/17: CT abd 4.8 cm. s/p aortobiliac stent.-Dr. Johan Berg Actinic keratosis On [place], Dr. Dudley Acute deep vein thrombosis (DVT) of femoral vein of left lower extremity (HCC) 03/16/2018 At high risk for falls Basal cell carcinoma 2020 left cheek Benign essential tremor Benign hypertension 07/13/2015 BPH with obstruction/lower urinary tract symptoms Bruit right carotid artery Cervical spine fracture (HCC) C4 s/p fusion Chewing tobacco use Class 1 obesity due to excess calories without serious comorbidity with body mass index (BMI) of 33.0 to 33.9 in adult Closed rib fracture 01/2023 right rib fracture after fall Esophageal reflux Gastroesophageal reflux Facet arthritis of lumbar region 06/27/2014 History of carpal tunnel surgery 1990s History of fusion of cervical spine Hypertrophy of prostate without urinary obstruction and other lower urinary tract symptoms (LUTS) Hypertrophy of the prostate w/o obstruction Left leg DVT (HCC) 02/19/2018 Mixed hyperlipidemia Hyperlipidemia 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 Melo Personal history of colonic polyps Pulmonary emphysema (HCC) 12/31/2016 Sebaceous cyst Situational depression 07/03/2016 Squamous cell carcinoma 04/04/2015 Left cheek Venous insufficiency of both lower extremities 07/01/2014 Vertebral artery dissection ([facility]) ALLERGIES Lipitor [Atorvastatin Calcium], Rosuvastatin Calcium, and Bwjwwgh-Uql-Duf Reductase Inhibitors MEDICATIONS Current Outpatient Medications Medication Sig finasteride (PROSCAR) 5 mg tablet Take 5 mg by mouth once daily. evolocumab (REPATHA SURECLICK) 140 mg/mL pen injector Inject 140 mg subcutaneously every 2 weeks. gabapentin (NEURONTIN) 300 mg capsule Take 1 capsule by mouth three times a day for 30 days. melatonin 3 mg tablet Take 3 tablets by mouth daily at bedtime. CTJURYRG-SEHOFGXVQ-CMUNYURV 3.5 MG/ML-10,000 UNIT/ML-0.1% EYE DROPS Use 1 Drop in both eyes four times daily. acetaminophen (TYLENOL) 325 mg tablet Take 3 tablets by mouth every 6 hours as needed for pain. fluticasone (FLONASE) 50 mcg/actuation nasal spray Use 2 Sprays in each nostril once daily. Rinse mouth after use. aspirin, enteric coated (ECOTRIN LOW STRENGTH) 81 mg EC tablet Take 1 tablet by mouth once daily. tamsulosin (FLOMAX) 0.4 mg Take 1 capsule by mouth once daily. No current facility-administered medications for this visit. Medications and allergies reviewed by this provider. SOCIAL HISTORY SOCIAL HISTORY[1] REVIEW OF SYSTEMS All other reviewed and negative other than HPI. OBJECTIVE: BP 104/62 Pulse 80 Resp 18 Wt 109.3 kg (241 lb) SpO2 92% BMI 31.80 kg/m . Vital signs reviewed by this provider. APPEARANCE Well appearing, alert, in no acute distress, well-hydrated, well nourished. EYES conjunctiva and sclera normal. HEART RRR with normal S1 and S2, no murmurs, no gallops, no JVD appreciated LUNG clear to auscultation. No wheezes, rhonchi or rales EXTREMITIES Extremities normal, No deformities, No skin discoloration, and No edema SKIN Scabbed lesion to posterior right neck and behind ear Latest Ref Rn 10/27/2024 WBC 3.70 - 11.00 k/uL 7.87 RBC 4.20 - 6.00 m/uL 5.21 Hemoglobin 13.0 - 17.0 g/dL 12.3 (L) Hematocrit 39.0 - 51.0 % 42.4 MCV 80.0 - 100.0 fL 81.4 MCH 26.0 - 34.0 pg 23.6 (L) MCHC 30.5 - 36.0 g/dL 29.0 (L) RDW-CV 11.5 - 15.0 % 15.5 (H) Platelet Count 150 - 400 k/uL 253 MPV 9.0 - 12.7 fL 10.9 Neut% % 71.2 Abs Neut (ANC) 1.45 - 7.50 k/uL 5.61 Lymph% % 20.1 Abs Lymph 1.00 - 4.00 k/uL 1.58 [place]ard% % 6.7 Abs [place] <0.87 k/uL 0.53 Eosin% % 1.3 Abs Eosin <0.46 k/uL 0.10 Baso% % 0.4 Abs Baso <0.11 k/uL 0.03 Immature Gran % % 0.3 IMMATURE GRANS (ABS) <0.10 k/uL <0.03 NRBC /100 WBC 0.0 Absolute nRBC <0.01 k/uL <0.01 DTYPE Auto Protein, Total 6.3 - 8.0 g/dL 7.3 Albumin 3.9 - 4.9 g/dL 3.5 (L) Calcium 8.5 - 10.2 mg/dL 9.1 Bilirubin, Total 0.2 - 1.3 mg/dL 0.3 Alkaline Phosphatase 38 - 113 U/L 184 (H) AST 14 - 40 U/L 15 ALT 10 - 54 U/L 7 (L) Glucose 74 - 99 mg/dL 94 BUN 9 - 24 mg/dL 13 Creatinine 0.73 - 1.22 mg/dL 0.93 Sodium 136 - 144 mmol/L 140 Potassium 3.7 - 5.1 mmol/L 4.4 Chloride 98 - 107 mmol/L 103 CO2 22 - 30 mmol/L 25 Anion Gap 8 - 15 mmol/L 12 eGFR >=60 mL/min/1.73m 84 Total Cholesterol, Nonfasting <200 mg/dL 146 Triglycerides, Nonfasting <150 mg/dL 88 HDL Cholesterol, Nonfasting >39 mg/dL 41 LDL Cholesterol Calculated, Nonfasting <100 mg/dL 88 Non HDL Cholesterol, Nonfasting <130 mg/dL 105 VLDL Cholesterol, Nonfasting <30 mg/dL 14 Total Chol/HDL Ratio, Nonfasting <5.10 mg/dL 3.56 LDL/HDL Ratio, Nonfasting <2.54 mg/dL 2.15 Anxiety Screening Never done Advance Directive Discussion Never done Medicare Advantage Annual Wellness Visit Never done RSV Vaccine(1 - 1-dose 75+ series) due on 10/27/2025 Shingrix Vaccine(1 of 2) due on 10/27/2025 Annual PCP Team Chronic Disease Visit due on 02/01/2026 Diabetes Screening due on 10/28/2027 DTaP,Tdap,Td Vaccine(4 - Td or Tdap) due on 03/26/2032 Influenza Vaccine Completed Pneumococcal Vaccine: 50+ Completed Colorectal Cancer Screening Discontinued 1. Benign hypertension (I10) - No acute issues reported since last visit. 2. Hyperlipidemia with target LDL less than 100 (E78.5) - Maintains Repatha injections every 2 weeks. 3. BPH with obstruction/lower urinary tract symptoms (N40.1) - Continues Flomax and finasteride; no current urinary symptoms. - Refill finasteride. 4. Skin lesion (L98.9) 5. Personal history of malignant neoplasm of skin (Z85.828) - Lesions on neck and behind ear appear scabbed; history of skin cancer. - Referral to dermatology for evaluation of suspicious lesions. 6. Encounter for immunization (Z23) - Administer flu vaccine today. 7. Tobacco use (Z72.0) 8. Alcohol use (F10.90) - Ongoing tobacco use (1 can every 2 days) and regular alcohol consumption (a couple beers nightly). - Advised to reduce alcohol intake and increase protein consumption. Anne Nixonlogespinoza, GUY.TABLEMAN Prescription instructions reviewed with patient as applicable. Patient advised if symptoms do not improve or if symptoms worsen sooner, to contact their primary care physician. Potential red flag symptoms discussed with the patient. Reviewed appropriate action plan to take if red flag symptoms occur. Patient agreeable to treatment plan. 68688 OVERALL COMPLEXITY Problem Complexity: Moderate Data Level: Straightforward Risk Level: Moderate Overall MDM complexity (2/3 must be met or exceeded): Moderate PROBLEMS SECTION: 1. Benign hypertension - Stable, Chronic Illness 2. Hyperlipidemia with target LDL less than 100 - Stable, Chronic Illness 3. BPH with obstruction/lower urinary tract symptoms - Stable, Chronic Illness 4. Skin lesion - Acute, uncomplicated illness or injury 5. Personal history of malignant neoplasm of skin - Self-limited or minor problem 6. Encounter for immunization - Self-limited or minor problem 7. Tobacco use - Stable, Chronic Illness 8. Alcohol use - Stable, Chronic Illness Two or more stable chronic illnesses (Moderate complexity) Problem complexity level: Moderate DATA SECTION: - Review of prior external note(s) from each unique source: - Review of the result(s) of each unique test: - Ordering of each unique test: flu vaccine (immunization) - not a test; does not count - Assessment requiring an independent historian(s): - Independent interpretation of a test performed by another physician/other qualified health aged or disabled carer: - Discussion of management or test interpretation with external physician/other qualified health aged or disabled carer/appropriate source: Data complexity level: Minimal; minimal or none RISKS SECTION: Prescription drug management (Repatha continuation, Flomax and finasteride continuation, finasteride refill) - Moderate complexity Referral to dermatology for evaluation of suspicious skin lesions (routine specialty referral, no procedure or hospitalization decision documented) - Minimal complexity Immunization (flu vaccine administered) - Minimal complexity Lifestyle modification counseling (alcohol/tobacco reduction, dietary advice) - Minimal complexity Risks complexity level (highest from above): Moderate [1] Social History Tobacco Use Smoking status: Former Current packs/day: 0.00 Average packs/day: 1 pack/day for 30.0 years (30.0 ttl pk-yrs) Types: Cigarettes Start date: 06/02/1958 Quit date: 06/02/1988 Years since quittin.6 Smokeless tobacco: Current Types: Chew Vaping Use Vaping status: Never Used Substance Use Topics Alcohol use: Yes Alcohol/week: 3.0 standard drinks of alcohol Types: 3 Standard drinks or equivalent per week Drug use: No documented in [facility] encounterK[facility] Telephone encounter Note * Telephone Encounter - Stephanie Stephens LPN - 11/01/2024 11:39 AM EDT Images from the original note were not included. Electronic PA rec'd and completed for repatha. This was approved. Pharmacy notified. Prior authorization approved Payer: [employer] [phone] Note from payer: CaseId:[id number];Status:Approved;Review Type:Prior Auth;Coverage Start Date:10/02/2024;Coverage End Date:11/01/2025; Approval Details Authorized from October 02, 2024 to November 01, 2025 Electronic appeal: Not supported [facility]06-02-[facility] Miscellaneous Notes* Telephone Encounter - Stephanie Stephens LPN - 11/01/2024 11:39 AM EDT Images from the original note were not included. Electronic PA rec'd and completed for repatha. This was approved. Pharmacy notified. Prior authorization approved Payer: [employer] [phone] Note from payer: CaseId:[id number];Status:Approved;Review Type:Prior Auth;Coverage Start Date:10/02/2024;Coverage End Date:11/01/2025; Approval Details Authorized from October 02, 2024 to November 01, 2025 Electronic appeal: Not supported documented in this encounterK[facility]05-30-2025 Telephone encounter Note * Telephone Encounter - Laura Hills LPN - 10/29/2024 3:25 PM EDT Phoned patient and reviewed results and recommendations with him. Patient voiced understanding. Laura Hills LPN [facility] Miscellaneous Notes* Telephone Encounter - Laura Hills LPN - 10/29/2024 3:25 PM EDT Phoned patient and reviewed results and recommendations with him. Patient voiced understanding. Laura Hills LPN * Telephone Encounter - Laura Hills LPN - 10/29/2024 3:22 PM EDT ----- Message from Kanchan Ge MD sent at 10/28/2024 10:17 AM EDT ----- Labs show improving anemia. Normal cholesterol. Elevated, but stable alk phos with normal liver function. Low albumin, recommend increased protein in his diet. May supplement with boost or ensure with meals. Repeat labs at future OV to monitor. No other changes to regimen. documented in this encounterK[facility]05-30-2025 Telephone encounter Note * Telephone Encounter - Laura Hills LPN - 10/29/2024 3:22 PM EDT ----- Message from Kanchan Ge MD sent at 10/28/2024 10:17 AM EDT ----- Labs show improving anemia. Normal cholesterol. Elevated, but stable alk phos with normal liver function. Low albumin, recommend increased protein in his diet. May supplement with boost or ensure with meals. Repeat labs at future OV to monitor. No other changes to regimen. [facility] Instructions* Patient Instructions* Kanchan Ge MD - 10/27/2024 3:00 PM EDT - Arrange home health physical therapy for in-home arm strengthening. Speak with the front office wastewater plant operator as you leave to set up your visits. - Continue taking Flomax and Proscar exactly as prescribed for your prostate. - Repatha injection has been renewed and sent to [facility]. - You received a Pfizer COVID-19 booster today. - Contact your pharmacy to schedule the Shingrix (shingles) vaccine. - Call your respiratory coordinator (Dr. Dudley) this week to schedule an appointment within the next 1-2 weeks for evaluation and removal of the spot on your face and neck. If you can t get in, let us know. - Call your eye doctor (Dr. Melo) promptly to reschedule your missed eye exam for the persistent redness and tearing. - Monitor your cough--if it worsens, produces yellow/green phlegm, or you develop chest pain, wheezing, or increased shortness of breath, contact our office. - Know the signs of stroke (sudden headache, facial droop, slurred speech, sudden weakness or vision change); if you experience any, call 911 immediately. - Blood work was drawn today to check your cholesterol, blood counts, and kidney and liver function. - Plan to follow up in 3 months for your next routine check-up. documented in this encounterK[facility]tering [facility]05-28-2025 NoteHNO ID: [id number] Author: KANCHAN GE MD Service: ? Author Type: Physician Type: Progress Notes Filed: 10/28/2024 11:00 Note Text: Chief Complaint Patient presents with: F/U 3 Month Recording using [employer] software for draft documentation of the visit was discussed with the patient/authorized labor relations representative; all questions welcomed and answered. Patient/authorized labor relations representative agreed to proceed HPI Vicki Randle is a 79 year old male who presents here today for Above Complaints. Accompanied today by his son. Arm Weakness: - Noted weakness in both arms, with more significant difficulty in the left arm since his cervical spine fracture with subsequent fusion. - Unable to lift the right arm fully; left arm has improved function. - Recent evaluation by neurosurgery Dr. Ling on 08/19 showed improved function in biceps and triceps, but persistent weakness in deltoids. - Referral for physical therapy was made, but Adrian has not yet attended. - Requests home-based physical therapy due to transportation challenges. Cough: - Productive cough with white sputum, noted this morning. - Denies chest pain, wheezing, or congestion. Eye Redness: - Reports chronic tearing and redness in the left eye. - Missed recent appointment with ballast cleaning operator Dr. Melo for history of glaucoma. Denies vision changes. Suspected CVA: - Concerns about possible CVA due to drooping of the left eye and difficulty keeping liquids in the mouth. - No recent episodes of sudden weakness, numbness, or slurred speech. Hypertension: - Monitors blood pressure at home; reports readings similar to today's measurement. - Denies headaches, chest pain, or worsening dyspnea. BPH: - Taking Flomax and Proscar. - Denies nocturia, but reports weak urinary stream. - Denies dysuria or hematuria. Hyperlipidemia: - Taking Repatha injections; requests refill. Skin Lesions: - Noted a persistent lesion on the right neck, present for about a year. - Last dermatology visit was over a year ago with Dr. Dudley. Lifestyle: - Consumes 2-3 beers per week; denies other alcohol use. - Chews tobacco daily, approximately one can every two days; not interested in cessation. 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 Additional Information: - No recent hospitalizations or ER visits. - No new falls. - Denies fevers, chills, emesis, diarrhea, or rashes. Past medical history, appointments, medications, allergies reviewed. Previous Medical History PAST MEDICAL HISTORY Diagnosis Date AAA (abdominal aortic aneurysm) 02/06/2012 01/10/17: CT abd 4.8 cm. s/p aortobiliac stent.-Dr. Johan Berg Actinic keratosis On [facility], Dr. Dudley Acute deep vein thrombosis (DVT) of femoral vein of left lower extremity (HCC) 03/16/2018 At high risk for falls Basal cell carcinoma 2020 left cheek Benign essential tremor Benign hypertension 07/13/2015 BPH with obstruction/lower urinary tract symptoms Bruit right carotid artery Cervical spine fracture (HCC) C4 s/p fusion Chewing tobacco use Class 1 obesity due to excess calories without serious comorbidity with body mass index (BMI) of 33.0 to 33.9 in adult Closed rib fracture 01/2023 right rib fracture after fall Esophageal reflux Gastroesophageal reflux Facet arthritis of lumbar region 06/27/2014 History of carpal tunnel surgery 1990s History of fusion of cervical spine Hypertrophy of prostate without urinary obstruction and other lower urinary tract symptoms (LUTS) Hypertrophy of the prostate w/o obstruction Left leg DVT (HCC) 02/19/2018 Mixed hyperlipidemia Hyperlipidemia 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 Melo Personal history of colonic polyps Pulmonary emphysema (HCC) 12/31/2016 Sebaceous cyst Situational depression 07/03/2016 Squamous cell carcinoma 04/04/2015 Left cheek Venous insufficiency of both lower extremities 07/01/2014 Vertebral artery dissection (HCC) Previous Surgical History PAST SURGICAL HISTORY Procedure Laterality Date COLONOSCOPY 12/29/2017 adenomatous polyp, repeat in 5 years COLONOSCOPY FLX DX W/COLLJ SPEC WHEN PFRMD 08/17/2007 EXCISION TUMOR SOFT TISSUE THIGH/KNEE SUBQ <3CM REMOVED FATTY TUMORS FROM UNDER EXCISION TUMOR SOFT TISSUE THIGH/KNEE SUBQ <3CM RMOVED FATTY TUMORE INT REPAIR SCALP,JAYCOB,TRUNK 7.6-12.5CM 02/24/2007 back LAPS SURG CHOLECYSTECTOMY W/CHOLANGIOGRAPHY 09/07/2007 MRI 02/22/2014 [facility] - mri - right knee NECK SURGERY HX 01/01/2024 C3-C6 PCDF PAST SURGICAL HISTORY OF N/A 09/09/2017 Abdominal aneurysm aortic repair PAST SURGICAL HISTORY OF Right 2013 arthroscopic knee surgery PAST SURGICAL HISTORY OF Left excision of knee bursa REM LESION TRUNK,ARM,LEG > 4.0 (more content not included)...[facility]05-28-2025 History of Present illness Narrative* Kanchan Ge MD - 10/27/2024 2:32 PM EDT Chief Complaint Patient presents with: F/U 3 Month Recording using [employer] software for draft documentation of the visit was discussed with the patient/authorized labor relations representative; all questions welcomed and answered. Patient/authorized labor relations representative agreed to proceed HPI Vicki Randle is a 79 year old male who presents here today for Above Complaints. Accompanied todayby his son. Arm Weakness: - Noted weakness in both arms, with more significant difficulty in the left arm since his cervical spine fracture with subsequent fusion. - Unable to lift the right arm fully; left arm has improved function. - Recent evaluation by neurosurgery Dr. Ling on 08/19 showed improved function in biceps and triceps, but persistent weakness in deltoids. - Referral for physical therapy was made, but Adrian has not yet attended. - Requests home-based physical therapy due to transportation challenges. Cough: - Productive cough with white sputum, noted this morning. - Denies chest pain, wheezing, or congestion. Eye Redness: - Reports chronic tearing and redness in the left eye. - Missed recent appointment with ballast cleaning operator Dr. Melo for history of glaucoma. Denies vision changes. Suspected CVA: - Concerns about possible CVA due to drooping of the left eye and difficulty keeping liquids in themouth. - No recent episodes of sudden weakness, numbness, or slurred speech. Hypertension: - Monitors blood pressure at home; reports readings similar to today's measurement. - Denies headaches, chest pain, or worsening dyspnea. BPH: - Taking Flomax and Proscar. - Denies nocturia, but reports weak urinary stream. - Denies dysuria or hematuria. Hyperlipidemia: - Taking Repatha injections; requests refill. Skin Lesions: - Noted a persistent lesion on the right neck, present for about a year. - Last dermatology visit was over a year ago with Dr. Dudley. Lifestyle: - Consumes 2-3 beers per week; denies other alcohol use. - Chews tobacco daily, approximately one can every two days; not interested in cessation. 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 Additional Information: - No recent hospitalizations or ER visits. - No new falls. - Denies fevers, chills, emesis, diarrhea, or rashes. Past medical history, appointments, medications, allergies reviewed. Previous Medical History PAST MEDICAL HISTORY Diagnosis Date AAA (abdominal aortic aneurysm) 02/06/2012 01/10/17: CT abd 4.8 cm. s/p aortobiliac stent.-Dr. Johan Berg Actinic keratosis On [place], Dr. Dudley Acute deep vein thrombosis (DVT) of femoral vein of left lower extremity (HCC) 03/16/2018 At high risk for falls Basal cell carcinoma 2019 left cheek Benign essential tremor Benign hypertension 07/13/2015 BPH with obstruction/lower urinary tract symptoms Bruit right carotid artery Cervical spine fracture (HCC) C4 s/p fusion Chewing tobacco use Class 1 obesity due to excess calories without serious comorbidity with body mass index (BMI) of 33.0 to 33.9 in adult Closed rib fracture 01/2023 right rib fracture after fall Esophageal reflux Gastroesophageal reflux Facet arthritis of lumbar region 06/27/2014 History of carpal tunnel surgery 1990s History of fusion of cervical spine Hypertrophy of prostate without urinary obstruction and other lower urinary tract symptoms (LUTS) Hypertrophy of the prostate w/o obstruction Left leg DVT (HCC) 02/19/2018 Mixed hyperlipidemia Hyperlipidemia 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 Melo Personal history of colonic polyps Pulmonary emphysema (HCC) 12/31/2016 Sebaceous cyst Situational depression 07/03/2016 Squamous cell carcinoma 04/04/2015 Left cheek Venous insufficiency of both lower extremities 07/01/2014 Vertebral artery dissection (HCC) Previous Surgical History PAST SURGICAL HISTORY Procedure Laterality Date COLONOSCOPY 12/29/2017 adenomatous polyp, repeat in 5 years COLONOSCOPY FLX DX W/COLLJ SPEC WHEN PFRMD 08/17/2007 EXCISION TUMOR SOFT TISSUE THIGH/KNEE SUBQ <3CM REMOVED FATTY TUMORS FROM UNDER EXCISION TUMOR SOFT TISSUE THIGH/KNEE SUBQ <3CM RMOVED FATTY TUMORE INT REPAIR SCALP,JAYCOB,TRUNK 7.6-12.5CM 02/24/2007 back LAPS SURG CHOLECYSTECTOMY W/CHOLANGIOGRAPHY 09/07/2007 MRI 02/22/2014 [facility] - mri - right knee NECK SURGERY HX 01/01/2024 C3-C6 PCDF PAST SURGICAL HISTORY OF N/A 09/09/2017 Abdominal aneurysm aortic repair PAST SURGICAL HISTORY OF Right 2013 arthroscopic knee surgery PAST SURGICAL HISTORY OF Left excision of knee bursa REM LESION TRUNK,ARM,LEG > 4.0CM 02/24/2007 back REM LESION TRUNK,ARM,LEG > 4.0CM REVISE MEDIAN N/CARPAL TUNNEL SURG Bilateral 1990s SURGERY (GENERAL SURGERY) CONSULT 04/25/2015 Invasive squamous cell carcincoma see scanned documents Family History FAMILY HISTORY Problem Relation Age of Onset Emphysema Mother Arthritis Sister Hypertension Maternal Grandmother No Known Problems Son No Known Problems Son No Known Problems Son No Known Problems Son No Known Problems Son Patient Allergies ALLERGIES Allergen Reactions Lipitor [Atorvastat* Intolerance Rosuvastatin Calcium Intolerance Vzrpato-Bjx-Ttd Red* Myalgia Current Medications Current Outpatient Medications on File Prior to Visit Medication Sig finasteride (PROSCAR) 5 mg tablet Take 5 mg by mouth once daily. tamsulosin (FLOMAX) 0.4 mg Take 1 capsule by mouth once daily. gabapentin (NEURONTIN) 300 mg capsule Take 1 capsule by mouth three times a day for 30 days. melatonin 3 mg tablet Take 3 tablets by mouth daily at bedtime. [id number] 3.5 MG/ML-10,000 UNIT/ML-0.1% EYE DROPS Use 1 Drop in both eyes four times daily. evolocumab (REPATHA SURECLICK) 140 mg/mL pen injector Inject 140 mg subcutaneously every 2 weeks. acetaminophen (TYLENOL) 325 mg tablet Take 3 tablets by mouth every 6 hours as needed for pain. fluticasone (FLONASE) 50 mcg/actuation nasal spray Use 2 Sprays in each nostril once daily. Rinse mouth after use. aspirin, enteric coated (ECOTRIN LOW STRENGTH) 81 mg EC tablet Take 1 tablet by mouth once daily. No current facility-administered medications on file prior to visit. Social History Social History Tobacco Use Smoking status: Former Current packs/day: 0.00 Average packs/day: 1 pack/day for 30.0 years (30.0 ttl pk-yrs) Types: Cigarettes Start date: 06/02/1958 Quit date: 06/02/1988 Years since quittin.4 Smokeless tobacco: Current Types: Chew Vaping Use Vaping status: Never Used Substance Use Topics Alcohol use: Yes Alcohol/week: 3.0 standard drinks of alcohol Types: 3 Standard drinks or equivalent per week Drug use: No Review of Symptoms REVIEW OF SYSTEMS GENERAL: No weight loss, malaise or fevers RESPIRATORY: See HPI CARDIOVASCULAR: Negative for chest pain, leg swelling, hypertension, CHF or palpitations GI: No nausea, vomiting, or diarrhea SKIN: Negative for lesions, rash, and itching EXAM: BP 110/66 Pulse 88 Resp 18 Wt 105 kg (231 lb 6.4 oz) SpO2 94% BMI 30.53 kg/m General Appearance: Well appearing, alert, in no acute distress, well-hydrated, well nourished.. Skin: 2 x 2 cm raised red lesion on right neck with central scabbing. Possible SCC. Eyes: left eye with lateral scleral injection and tearing without crusting or purulent drainage. EOMI, PERRLA. Lungs: Lungs clear to auscultation. No wheezing, rhonchi, rales.. Heart: RRR without murmur, gallop, or rubs. No ectopy. Abdomen: Normal abdominal exam, Abdomen soft, non-tender. Bowel sounds normal. No masses, organomegaly. 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 Good capillary refill. Neuro: CN II-XII grossly intact. No facial droop or slurred speech. Health Maintenance List Anxiety Screening Never done Advance Directive Discussion Never done Covid-19 Vaccine(2023- season) due on 08/25/2024 RSV Vaccine(1 - 1-dose 75+ series) due on 10/27/2025 Shingrix Vaccine(1 of 2) due on 10/27/2025 Annual PCP Team Chronic Disease Visit due on 10/27/2025 BP Controlled (<130/80) due on 10/27/2025 Diabetes Screening due on 07/29/2027 DTaP,Tdap,Td Vaccine(4 - Td or Tdap) due on 03/26/2032 Influenza Vaccine Completed Pneumococcal Vaccine: 50+ Completed Colorectal Cancer Screening Discontinued Data reviewed Latest Ref Rng 02/26/2024 04/27/2024 07/29/2024 WBC 3.70 - 11.00 k/uL 8.64 6.95 8.32 RBC 4.20 - 6.00 m/uL 4.66 4.64 5.11 Hemoglobin 13.0 - 17.0 g/dL 11.6 (L) 11.3 (L) 12.0 (L) Hematocrit 39.0 - 51.0 % 38.6 (L) 38.2 (L) 40.8 MCV 80.0 - 100.0 fL 82.8 82.3 79.8 (L) MCH 26.0 - 34.0 pg 24.9 (L) 24.4 (L) 23.5 (L) MCHC 30.5 - 36.0 g/dL 30.1 (L) 29.6 (L) 29.4 (L) RDW-CV 11.5 - 15.0 % 15.4 (H) 15.4 (H) 15.3 (H) Platelet Count 150 - 400 k/uL 227 216 236 MPV 9.0 - 12.7 fL 11.6 11.0 9.9 Neut% % 69.4 62.4 73.9 Abs Neut (ANC) 1.45 - 7.50 k/uL 6.00 4.34 6.14 Lymph% % 20.5 26.2 16.7 Abs Lymph 1.00 - 4.00 k/uL 1.77 1.82 1.39 [place]ard% % 7.9 8.8 7.3 Abs [place] <0.87 k/uL 0.68 0.61 0.61 Eosin% % 1.4 1.7 1.3 Abs Eosin <0.46 k/uL 0.12 0.12 0.11 Baso% % 0.5 0.6 0.6 Abs Baso <0.11 k/uL 0.04 0.04 0.05 Immature Gran % % 0.3 0.3 0.2 IMMATURE GRANS (ABS) <0.10 k/uL 0.03 <0.03 <0.03 NRBC /100 WBC 0.0 0.0 0.0 Absolute nRBC <0.01 k/uL <0.01 <0.01 <0.01 DTYPE Auto Auto Auto Protein, Total 6.3 - 8.0 g/dL 7.1 7.0 7.4 Albumin 3.9 - 4.9 g/dL 3.4 (L) 3.3 (L) 3.4 (L) Calcium 8.5 - 10.2 mg/dL 9.1 8.8 9.0 Bilirubin, Total 0.2 - 1.3 mg/dL 0.2 0.2 0.2 Alkaline Phosphatase 38 - 113 U/L 261 (H) 216 (H) 163 (H) Alkaline Phosphatase 216 (H) AST 14 - 40 U/L 12 (L) 13 (L) 11 (L) ALT 10 - 54 U/L 7 (L) 6 (L) 5 (L) Glucose 74 - 99 mg/dL 94 73 (L) 139 (H) BUN 9 - 24 mg/dL 9 8 (L) 14 Creatinine 0.73 - 1.22 mg/dL 0.80 0.85 0.85 Sodium 136 - 144 mmol/L 139 138 138 Potassium 3.7 - 5.1 mmol/L 4.2 4.1 4.5 Chloride 98 - 107 mmol/L 104 103 103 CO2 22 - 30 mmol/L 26 24 22 Anion Gap 8 - 15 mmol/L 9 11 13 eGFR >=60 mL/min/1.73m 91 89 88 Alk Phos Bone % 10.7 - 68.3 % 13.2 Bone Fraction 12.9 - 52.6 U/L 28.5 Alk Phos Liver % 26.0 - 86.2 % 86.8 (H) Liver Fraction 16.0 - 69.3 U/L 187.5 (H) Alk Phos Intestine % 0.0 - 24.2 % 0.0 Intestine Fraction 0.0 - 16.3 U/L 0.0 Hemoglobin A1C 4.3 - 5.6 % 5.4 Estimated Average Glucose mg/dL 108 GGT 10 - 70 U/L 13 Legend: (L) Low (H) High 1. History of fusion of cervical spine (Z98.1) 2. Weakness of upper extremity (R29.898) - Noted improved function in biceps and triceps, but persistent weakness in deltoids. - Referral placed for home health physical therapy to address upper extremity weakness. 3. Hyperlipidemia with target LDL less than 100 (E78.5) - Managed with Repatha injections. - Refilled Repatha prescription, sent to [facility] in [place]. - Ordered lipid panel to monitor cholesterol levels. 4. Benign hypertension (I10) - Blood pressure well-controlled; no symptoms of headaches, chest pain, or significant shortness ofbreath. - Continue current antihypertensive regimen. 5. BPH with obstruction/lower urinary tract symptoms (N40.1) - Managed with Flomax and Proscar. - Reports weak urinary stream but no nocturia, dysuria, or hematuria. - Continue current medications. 6. Skin lesion (L98.9) - Noted a suspicious lesion on the neck, possibly a squamous cell carcinoma. - Referral placed to dermatology for evaluation and management. 7. Scleral injection (H57.89) - Noted redness in the eye with excessive tearing. - Advised patient to schedule an appointment with ophthalmology for further evaluation. 8. Other specified glaucoma, unspecified laterality (H40.89) - No recent vision changes reported. - Missed recent ophthalmology appointment; advised to reschedule promptly. 9. Chewing tobacco use (Z72.0) - Patient uses one can every two days. - Discussed risks including dental issues and potential for oral and esophageal cancers. - Patient declined assistance with cessation. 10. Alcohol use (F10.90) - Consumes approximately three beers per week. - Advised moderation. 11. Encounter for immunization (Z23) - Administered COVID-19 booster (Online-OR). - Discussed eligibility for Shingrix vaccine; advised to obtain from pharmacy. 12. Facial droop - ICD9: 781.94, ICD10: R29.810 No evidence of facial droop on exam. CN grossly intact. Continue ASA, repatha. Red flags for re-assessment reviewed with patient in detail. Kanchan Ge MD [facility] History of Present illness Narrative* Mando Ling MD - 08/19/2024 2:15 PM EDT NEUROSURGERY FOLLOW UP OFFICE NOTE Mando Ling MD [facility] Date of visit: August 19, 2024 Patient Name: Mr.Michael Randle Date of : 1945 Current Age: [age] year old Sex: male MRN/E# [id number] Last Office Visit: 07/27/2024 Chief Complaint: Patient presents with: Established Patient Past Medical/Surgical History: Mr. Randle is a 78 year old male with a past medical history of AAA, DVT (on Eliquis), basal cell carcinoma, benign essential tremor, HTN, BPH, Bruit of right carotid artery, nodule of right lung, venous insufficiency of BLE. No significant surgical history. HPI: Past Medical/Surgical History: Mr. Randle is a 78 year old male with a past medical history of AAA, DVT (on Eliquis), basal cell carcinoma, benign essential tremor, HTN, BPH, Bruit of right carotid artery, nodule of right lung, venous insufficiency of BLE. No significant surgical history. HPI: Mr. Randle was seen in the [facility] ED on 01/01/2024 after a fall and was found to have central cord syndome with neck pain and LUE pain/weakness. MRI showed ligamentous injury across C4-5 with severe canalstenosis. He was taken to the OR for C3-6 PCDF on 01/01/2024. He was last seen in the office on 04/26/2024 for a 6 week post operative visit when he when he continued to have some dexterity issues and gait imbalance and had been utilizing a walker for ambulation. He continued with weakness to the upper extremities. He had been participating in physical therapy but did not feel it was helping much. 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 Given continued weakness, an EMG was ordered to assess further, as well as shoulder xrays to assess for any intrinsic pathology which revealed denervation in the C5-7 motor groups, which was at the site of injury. It was recommended that he continue conservative management to include therapy and time to recover. He was to follow up in 6 weeks time, prompting his visit today. The patient presents to the office today with no reports of pain to the neck or arms. He has some left shoulder pain but that is nothing new for him. He denies falls, weakness, paresthesia. He is pleased with his progress this far. He is here for evaluation and plan of care. Symptoms: dexterity issues and gait imbalance PREVIOUS CONSERVATIVE TREATMENTS: Physical therapy PREVIOUS SURGERY: SURGERY #1: C3-C6 PCDF on 01/01/2024 Pre-Surgical Symptoms: fall - central cord syndrome PAIN EVALUATION No data found in the last 1 encounters. PAST MEDICAL HISTORY Diagnosis Date AAA (abdominal aortic aneurysm) ([facility]) 02/06/2012 01/10/17: CT abd 4.8 cm. s/p aortobiliac stent.-Dr. Johan Berg Actinic keratosis On [facility], Dr. Dudley Acute deep vein thrombosis (DVT) of femoral vein of left lower extremity ([facility]) 03/16/2018 At high risk for falls Basal cell carcinoma 2019 left cheek Benign essential tremor Benign hypertension 07/13/2015 BPH with obstruction/lower urinary tract symptoms Bruit right carotid artery Cervical spine fracture (HCC) C4 s/p fusion Chewing tobacco use Class 1 obesity due to excess calories without serious comorbidity with body mass index (BMI) of 33.0 to 33.9 in adult Closed rib fracture 01/2023 right rib fracture after fall Esophageal reflux Gastroesophageal reflux Facet arthritis of lumbar region 06/27/2014 History of carpal tunnel surgery History of fusion of cervical spine Hypertrophy of prostate without urinary obstruction and other lower urinary tract symptoms (LUTS) Hypertrophy of the prostate w/o obstruction Left leg DVT (HCC) 02/19/2018 Mixed hyperlipidemia Hyperlipidemia 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 Melo Personal history of colonic polyps Pulmonary emphysema (HCC) 12/31/2016 Sebaceous cyst Situational depression 07/03/2016 Squamous cell carcinoma 04/04/2015 Left cheek Venous insufficiency of both lower extremities 07/01/2014 Vertebral artery dissection (HCC) PAST SURGICAL HISTORY Procedure Laterality Date COLONOSCOPY 12/29/2017 adenomatous polyp, repeat in 5 years COLONOSCOPY FLX DX W/COLLJ SPEC WHEN PFRMD 08/17/2007 EXCISION TUMOR SOFT TISSUE THIGH/KNEE SUBQ <3CM REMOVED FATTY TUMORS FROM UNDER EXCISION TUMOR SOFT TISSUE THIGH/KNEE SUBQ <3CM RMOVED FATTY TUMORE INT REPAIR SCALP,JAYCOB,TRUNK 7.6-12.5CM 02/24/2007 back LAPS SURG CHOLECYSTECTOMY W/CHOLANGIOGRAPHY 09/07/2007 MRI 02/22/2014 [facility] - mri - right knee NECK SURGERY HX 01/01/2024 C3-C6 PCDF PAST SURGICAL HISTORY OF N/A 09/09/2017 Abdominal aneurysm aortic repair PAST SURGICAL HISTORY OF Right 2013 arthroscopic knee surgery PAST SURGICAL HISTORY OF Left excision of knee bursa REM LESION TRUNK,ARM,LEG > 4.0CM 02/24/2007 back REM LESION TRUNK,ARM,LEG > 4.0CM REVISE MEDIAN N/CARPAL TUNNEL SURG Bilateral 1990s SURGERY (GENERAL SURGERY) CONSULT 04/25/2015 Invasive squamous cell carcincoma see scanned documents FAMILY HISTORY Problem Relation Age of Onset Emphysema Mother Arthritis Sister Hypertension Maternal Grandmother No Known Problems Son No Known Problems Son No Known Problems Son No Known Problems Son No Known Problems Son ALLERGIES Allergen Reactions Lipitor [Atorvastat* Intolerance Rosuvastatin Calcium Intolerance Jcdzdxn-Tdg-Zjx Red* Myalgia Current Outpatient Medications Medication Sig Dispense Refill finasteride (PROSCAR) 5 mg tablet Take 1 tablet by mouth once daily. 90 tablet 1 tamsulosin (FLOMAX) 0.4 mg Take 1 capsule by mouth once daily. 90 capsule 1 melatonin 3 mg tablet Take 3 tablets by mouth daily at bedtime. [id number] 3.5 MG/ML-10,000 UNIT/ML-0.1% EYE DROPS Use 1 Drop in both eyes four times daily. acetaminophen (TYLENOL) 325 mg tablet Take 3 tablets by mouth every 6 hours as needed for pain. fluticasone (FLONASE) 50 mcg/actuation nasal spray Use 2 Sprays in each nostril once daily. Rinse mouth after use. 1 Each 2 aspirin, enteric coated (ECOTRIN LOW STRENGTH) 81 mg EC tablet Take 1 tablet by mouth once daily. 0 gabapentin (NEURONTIN) 300 mg capsule Take 1 capsule by mouth three times a day for 30 days. evolocumab (REPATHA SURECLICK) 140 mg/mL pen injector Inject 140 mg subcutaneously every 2 weeks. 6mL 1 No current facility-administered medications for this visit. REVIEW OF SYSTEMS Review of Systems Constitutional: Negative for chills, fatigue and fever. HENT: Negative for ear pain, hearing loss and tinnitus. Eyes: Negative for photophobia, pain and visual disturbance. Respiratory: Negative for shortness of breath. Cardiovascular: Negative for chest pain. Gastrointestinal: Negative for constipation, diarrhea, nausea and vomiting. Endocrine: Negative for polydipsia, polyphagia and polyuria. Genitourinary: Negative for difficulty urinating, frequency and urgency. Musculoskeletal: Negative for back pain, gait problem, neck pain and neck stiffness. Skin: Negative for color change. Neurological: Negative for dizziness, weakness, light-headedness and numbness. Psychiatric/Behavioral: Negative for agitation and confusion. The patient is not nervous/anxious. OBJECTIVE: BP 98/57 Pulse 91 Ht 6' 1 (1.85m) Wt 229 lb 11.5 oz (104.2kg) SpO2 98% BMI 30.31 kg/(m^2). PHYSICAL EXAM: Mental State : Alert, memory function unremarkable. Attention span and concentration normal for patient's age. Speech normal, no receptive or expressive speech deficit. Recent and remote memory normal. Orientation : Oriented to person, place and time. Cranial Nerves : Grossly intact. Sensory: Normal Sensation in upper and lower extremities and trunk to touch and noxious stimuli. Motor: Normal muscle tone and bulk. No tremor or uncontrollable movements. No spasticity or tremor. Gait and Station: Casual gait is normal including stance, stride, and arm swing. STRENGTH: Upper Extremity Strength Exam Right Left Elbow Flexion 5/5 5/5 Elbow Extension 5/5 5/5 Finger Flexion 5/5 5/5 Finger Extension 5/5 5/5 Finger Abduction 5/5 5/5 Lower Extremity Strength Exam Right Left Hip Flexion 5/5 5/5 Knee Flexion 5/5 5/5 Knee Extension 5/5 5/5 Dorsiflexion 5/5 5/5 Plantarflexion 5/5 5/5 Data Review IMAGING STUDIES: XR C-spine: Posterior C3-C6 fusion hardware in good position. Assessment & Plan: Mr. Randle presents approximately 7 and half months after his C3-6 ACDF for central cord syndrome. His pain in his arms improved after surgery, but he had a bilateral C5 palsy postoperatively that is improving. He underwent MRI and CT imaging which showed no active compression. His EMG study showed some axonal neuropathy that is likely due to the compression of the spinal cord due to his fall. Hisstrength is improving, and he now has vastly improved function of his biceps and triceps. He still has a little bit of trouble with his deltoids, but is able to lift them to approximately 20 degrees.He certainly has some intrinsic shoulder arthritis as well which is contributing to his limited range of motion. His x-rays look good. He is interested in physical therapy, which will certainly help with his forward posture and strengthen his extensor muscles. I will see him back approximately 1 year from his surgery, which will be in December. All questions were answered. Attribution: The following portions of the patient's history were reviewed, confirmed, and updated as necessary:allergies, current medications, past family history, past medical history, past social history, past surgical history, problem list, HPI, and ROS obtained by others. Some elements may be copied from a previous office note and have been reviewed/updated where appropriate. All portions reflect current medical decision making from today. The clinical and radiographic findings as well as the risks, benefits and alternatives of treatmenthave been reviewed in detail with the patient. Advised to call the office if symptoms worsen or new symptoms develop. Patient expressed understanding and is in agreement with plan. Mando Ling MD [facility] Medical Decision Making: Problems: Moderate: 2+ stable chronic illnesses Data: Unique source(s) for external note(s) reviewed: 1 Unique test result(s) reviewed: 2 Unique test(s) ordered: 1 Risk: Moderate: Moderate risk from testing/treatment Medical Decision Making Level: 4 - Moderate This note was partially generated using [employer] voice recognition system, and there may be some incorrect words, spellings, and punctuation that were not noted in checking the note before saving. documented in this encounterK[facility]03-[facility]25 NoteHNO ID: [id number] Author: MANDO LING MD Service: ? Author Type: Physician Type: Progress Notes Filed: 08/19/2024 14:41 Note Text: NEUROSURGERY FOLLOW UP OFFICE NOTE Mando Ling MD [facility] Date of visit: August 19, 2024 Patient Name: Mr.Michael Randle Date of : 1945 Current Age: [age] year old Sex: male MRN/E# [id number] Last Office Visit: 07/27/2024 Chief Complaint: Patient presents with: Established Patient Past Medical/Surgical History: Mr. Randle is a 78 year old male with a past medical history of AAA, DVT (on Eliquis), basal cell carcinoma, benign essential tremor, HTN, BPH, Bruit of right carotid artery, nodule of right lung, venous insufficiency of BLE. No significant surgical history. HPI: Past Medical/Surgical History: Mr. Randle is a 78 year old male with a past medical history of AAA, DVT (on Eliquis), basal cell carcinoma, benign essential tremor, HTN, BPH, Bruit of right carotid artery, nodule of right lung, venous insufficiency of BLE. No significant surgical history. HPI: Mr. Randle was seen in the [facility] ED on 01/01/2024 after a fall and was found to have central cord syndome with neck pain and LUE pain/weakness. MRI showed ligamentous injury across C4-5 with severe canal stenosis. He was taken to the OR for C3-6 PCDF on 01/01/2024. He was last seen in the office on 04/26/2024 for a 6 week post operative visit when he when he continued to have some dexterity issues and gait imbalance and had been utilizing a walker for ambulation. He continued with weakness to the upper extremities. He had been participating in physical therapy but did not feel it was helping much. 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 Given continued weakness, an EMG was ordered to assess further, as well as shoulder xrays to assess for any intrinsic pathology which revealed denervation in the C5-7 motor groups, which was at the site of injury. It was recommended that he continue conservative management to include therapy and time to recover. He was to follow up in 6 weeks time, prompting his visit today. The patient presents to the office today with no reports of pain to the neck or arms. He has some left shoulder pain but that is nothing new for him. He denies falls, weakness, paresthesia. He is pleased with his progress this far. He is here for evaluation and plan of care. Symptoms: dexterity issues and gait imbalance PREVIOUS CONSERVATIVE TREATMENTS: Physical therapy PREVIOUS SURGERY: SURGERY #1: C3-C6 PCDF on 01/01/2024 Pre-Surgical Symptoms: fall - central cord syndrome PAIN EVALUATION No data found in the last 1 encounters. PAST MEDICAL HISTORY Diagnosis Date AAA (abdominal aortic aneurysm) ([facility]) 02/06/2012 01/10/17: CT abd 4.8 cm. s/p aortobiliac stent.-Dr. Johan Berg Actinic keratosis On [facility], Dr. Dudley Acute deep vein thrombosis (DVT) of femoral vein of left lower extremity ([facility]) 03/16/2018 At high risk for falls Basal cell carcinoma 2019 left cheek Benign essential tremor Benign hypertension 07/13/2015 BPH with obstruction/lower urinary tract symptoms Bruit right carotid artery Cervical spine fracture ([facility]) C4 s/p fusion Chewing tobacco use Class 1 obesity due to excess calories without serious comorbidity with body mass index (BMI) of 33.0 to 33.9 in adult Closed rib fracture 01/2023 right rib fracture after fall Esophageal reflux Gastroesophageal reflux Facet arthritis of lumbar region 06/27/2014 History of carpal tunnel surgery 1990s History of fusion of cervical spine Hypertrophy of prostate without urinary obstruction and other lower urinary tract symptoms (LUTS) Hypertrophy of the prostate w/o obstruction Left leg DVT (HCC) 02/19/2018 Mixed hyperlipidemia Hyperlipidemia 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 Melo Personal history of colonic polyps Pulmonary emphysema (HCC) 12/31/2016 Sebaceous cyst Situational depression 07/03/2016 Squamous cell carcinoma 04/04/2015 Left cheek Venous insufficiency of both lower extremities 07/01/2014 Vertebral artery dissection (HCC) PAST SURGICAL HISTORY Procedure Laterality Date COLONOSCOPY 12/29/2017 adenomatous polyp, repeat in 5 years COLONOSCOPY FLX DX W/COLLJ SPEC WHEN PFRMD 08/17/2007 EXCISION TUMOR SOFT TISSUE THIGH/KNEE SUBQ <3CM REMOVED FATTY TUMORS FROM UNDER EXCISION TUMOR SOFT TISSUE THIGH/KNEE SUBQ <3CM RMOVED FATTY TUMORE INT REPAIR SCALP,JAYCOB,TRUNK 7.6-12.5CM 02/24/2007 back LAPS SURG CHOLECYSTECTOMY W/CHOLANGIOGRAPHY 09/07/2007 MRI 02/22/2014 [facility] - mri - right knee NECK SURGERY HX 01/01/2024 C3-C6 PCDF (more content not included)...[facility]03-04-2025 Telephone encounter Note* Telephone Encounter - Laura Hills LPN - 08/03/2024 3:58 PM EST Phoned patient and updated him with results. Patient voiced understanding. Laura Hills LPN [facility]03-04-2025 Miscellaneous Notes* Telephone Encounter - Laura Hills LPN - 08/03/2024 3:58 PM EST Phoned patient and updated him with results. Patient voiced understanding. Laura Hills LPN * Telephone Encounter - Laura Hills LPN - 08/03/2024 3:57 PM EST ----- Message from Kanchan Ge MD sent at 08/03/2024 7:00 AM EST ----- A1c in normal range. Negative for DM or prediabetes. * Result Encounter Note - Kiera Durand MA - 08/02/2024 9:11 AM EST Spoke with Client Services who can add an A1c, this will be added on. Will update pt regarding this. Call to pt and notified him of results from Provider. Pt verbalized understanding. Pt states he wasnot fasting when he completed lab work. Pt was notified that we are just checking an A1c to make sure and will be notified once result becomes available. Pt understood. Kiera Durand MA * Telephone Encounter - Kanchan Ge MD - 08/02/2024 7:53 AM EST Labs show improving anemia and alk phos. Sugar high in the 130's. Please see if the lab can add on A1c. documented in this encounterK[facility]03-04-2025 Telephone encounter Note * Telephone Encounter - Laura Hills LPN - 08/03/2024 3:57 PM EST ----- Message from Kanchan Ge MD sent at 08/03/2024 7:00 AM EST ----- A1c in normal range. Negative for DM or prediabetes. [facility]03-03-2025 Progress note* Result Encounter Note - Kiera Durand MA - 08/02/2024 9:11 AM EST Spoke with Client Services who can add an A1c, this will be added on. Will update pt regarding this. Call to pt and notified him of results from Provider. Pt verbalized understanding. Pt states he wasnot fasting when he completed lab work. Pt was notified that we are just checking an A1c to make sure and will be notified once result becomes available. Pt understood. Kiera Durand MA [facility]03-03-2025 Telephone encounter Note* Telephone Encounter - Kanchan Ge MD - 08/02/2024 7:53 AM EST Labs show improving anemia and alk phos. Sugar high in the 130's. Please see if the lab can add on A1c. [facility]02-28-[facility] Telephone encounter Note* Telephone Encounter - Ashley Christian LPN - 07/30/2024 9:59 AM EST Patient notified with results. Patient verbalizes understanding. Ashley Christian LPN [facility]02-28-2025 Miscellaneous Notes* Telephone Encounter - Ashley Christian LPN - 07/30/2024 9:59 AM EST Patient notified with results. Patient verbalizes understanding. Ashley Christian LPN * Telephone Encounter - Ashley Christian LPN - 07/30/2024 9:58 AM EST ----- Message from Kanchan Ge MD sent at 07/30/2024 8:43 AM EST ----- Normal CXR. documented in this encounterK[facility]02-28-2025 Telephone encounter Note * Telephone Encounter - Ashley Christian LPN - 07/30/2024 9:58 AM EST ----- Message from Kanchan Ge MD sent at 07/30/2024 8:43 AM EST ----- Normal CXR. [facility]02-27-2025 History of Present illness Narrative* Bowen Hooks RT(R) - 07/29/2024 3:30 PM EST be Radiology Service Progress Note PATIENT NAME: Vicki Randle DATE OF SERVICE: July 29, 2024 TIME: 3:21 PM PATIENT IDENTITY VERIFICATION COMPLETED USING TWO (2) IDENTIFIERS: Name and Date of confirmedby patient verbally. FALL SCREENING: Has the patient had 2 falls in the last year or 1 fall with injury or currently using an Ambulatory Assistive Device (Walker, Cane, Wheelchair, Crutches, etc.)? No PATIENT GENDER DATA: Assigned male at PATIENT RELEVANT IMPLANT DATA REVIEWED: Yes PATIENT PRESENTS WITH AN IMPLANTABLE OR ATTACHED AGRICULTURE SPECIALIST: No RADIOLOGY DEPARTMENT: General X-ray: Exam(s) Completed: Chest X-Ray PERIPHERAL IV DATA: Not applicable SIGNED BY: MAHSA Humphrey) July 29, 2024 3:21 PM documented in this encounterKettering [facility]02-27-2025 NoteHNO ID: [id number] Author: BOWEN HOOKS RT(R) Service: ? Author Type: Under Baster Type: Progress Notes Filed: 07/29/2024 15:32 Note Text: be Radiology Service Progress Note PATIENT NAME: Vicki Randle DATE OF SERVICE: July 29, 2024 TIME: 3:21 PM PATIENT IDENTITY VERIFICATION COMPLETED USING TWO (2) IDENTIFIERS: Name and Date of confirmed by patient verbally. FALL SCREENING: Has the patient had 2 falls in the last year or 1 fall with injury or currently using an Ambulatory Assistive Device (Walker, Cane, Wheelchair, Crutches, etc.)? No PATIENT GENDER DATA: Assigned male at PATIENT RELEVANT IMPLANT DATA REVIEWED: Yes PATIENT PRESENTS WITH AN IMPLANTABLE OR ATTACHED AGRICULTURE SPECIALIST: No RADIOLOGY DEPARTMENT: General X-ray: Exam(s) Completed: Chest X-Ray PERIPHERAL IV DATA: Not applicable SIGNED BY: RT Kam(R) July 29, 2024 3:21 [facility]02-27-2025 NoteHNO ID: [id number] Author: KANCHAN GE MD Service: ? Author Type: Physician Type: Progress Notes Filed: 08/01/2024 11:48 Note Text: Chief Complaint Patient presents with: Follow Up: 3 month HPI Vicki Randle is a 79 year old male who presents here today for Above Complaints Accompanied today by his grand daughter Kymberly. Patient has been in good health without recent hospitalizations, ER visits, or falls. Patient complaining today of shortness of breath which has been going on for the last 4-5 years and worsened about 2 years ago. States that the only exercise he gets is walking from his chair to the kitchen and back about 4-5 times per day. Admits to productive cough with white sputum. Denies wheezing, chest pain, palpitations, LE edema, lightheadedness/dizziness, syncope, bleeding or bruising symptoms. Workup completed for this in 2022 and 2023 with EKG, stress test, echo and labs which were unremarkable. Not interested in seeing any new specialists. Last f/u with neurosurgery 06/03 for history of cervical spinal fusion after fall. Had EMG which showed some denervation in the C5-7 motor groups which they believed was delayed response from surgery. States that he still has limited use of his left arm which he has referral to PT for. Needs to reach out to schedule. Still drinking 1-2 beers per day. No longer drinking liquor. Past medical history, appointments, medications, allergies reviewed. Previous Medical History PAST MEDICAL HISTORY Diagnosis Date AAA (abdominal aortic aneurysm) (HCC) 02/06/2012 01/10/17: CT abd 4.8 cm. s/p aortobiliac stent.-Dr. R Cebul Actinic keratosis On [facility], Dr. Dudley Acute deep vein thrombosis (DVT) of femoral vein of left lower extremity (HCC) 03/16/2018 02/19/18--on Eliquis At high risk for falls Basal cell carcinoma 2019 left cheek Benign essential tremor Benign hypertension 07/13/2015 BPH with obstruction/lower urinary tract symptoms Bruit right carotid artery Cervical spine fracture (HCC) C4 s/p fusion Chewing tobacco use Class 1 obesity due to excess calories without serious comorbidity with body mass index (BMI) of 33.0 to 33.9 in adult Closed rib fracture 01/2023 right rib fracture after fall Esophageal reflux Gastroesophageal reflux Facet arthritis of lumbar region 06/27/2014 History of carpal tunnel surgery 1990s History of fusion of cervical spine Hypertrophy of prostate without urinary obstruction and other lower urinary tract symptoms (LUTS) Hypertrophy of the prostate w/o obstruction Left leg DVT (HCC) 02/19/2018 Mixed hyperlipidemia Hyperlipidemia 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 Melo Personal history of colonic polyps Pulmonary emphysema (HCC) 12/31/2016 Sebaceous cyst Situational depression 07/03/2016 Squamous cell carcinoma 04/04/2015 Left cheek Venous insufficiency of both lower extremities 07/01/2014 Vertebral artery dissection (HCC) Previous Surgical History PAST SURGICAL HISTORY Procedure Laterality Date COLONOSCOPY 12/29/2017 adenomatous polyp, repeat in 5 years COLONOSCOPY FLX DX W/COLLJ SPEC WHEN PFRMD 08/17/2007 EXCISION TUMOR SOFT TISSUE THIGH/KNEE SUBQ <3CM REMOVED FATTY TUMORS FROM UNDER EXCISION TUMOR SOFT TISSUE THIGH/KNEE SUBQ <3CM RMOVED FATTY TUMORE INT REPAIR SCALP,JAYCOB,TRUNK 7.6-12.5CM 02/24/2007 back LAPS SURG CHOLECYSTECTOMY W/CHOLANGIOGRAPHY 09/07/2007 MRI 02/22/2014 [facility] - mri - right knee PAST SURGICAL HISTORY OF N/A 09/09/2017 Abdominal aneurysm aortic repair PAST SURGICAL HISTORY OF Right 2013 arthroscopic knee surgery PAST SURGICAL HISTORY OF Left excision of knee bursa PAST SURGICAL HISTORY OF 01/01/2024 Posterior segmental instrumentation and posterior lateral fusion C3-C6; ORIF of C4 fracture; C3-C6 laminectomy REM LESION TRUNK,ARM,LEG > 4.0CM 02/24/2007 back REM LESION TRUNK,ARM,LEG > 4.0CM REVISE MEDIAN N/CARPAL TUNNEL SURG Bilateral 1990s SURGERY (GENERAL SURGERY) CONSULT 04/25/2015 Invasive squamous cell carcincoma see scanned documents Family History FAMILY HISTORY Problem Relation Age of Onset Emphysema Mother Arthritis Sister Hypertension Maternal Grandmother No Known Problems Son No Known Problems Son No Known Problems Son No Known Problems Son No Known Problems Son Patient Allergies ALLERGIES Allergen Reactions Lipitor [Atorvastat* Intolerance Rosuvastatin Calcium Intolerance Pnhkoyu-Qrn-Lej Red* Myalgia Current Medications Current Outpatient Medications on File Prior to Visit Medication Sig finasteride (PROSCAR) 5 mg tablet Take 1 tablet by mouth once daily. tamsulosin (FLOMAX) 0.4 mg Take 1 capsule by mouth once daily. melatonin 3 mg tablet Take 3 tablets by mouth [place] (more content not included)... [facility]02-27-2025 History of Present illness Narrative* Kanchan Ge MD - 07/29/2024 2:19 PM EST Chief Complaint Patient presents with: Follow Up: 3 month HPI Vicki aRndle is a 79 year old male who presents here today for Above Complaints Accompanied today by his grand daughter Kymberly. Patient has been in good health without recent hospitalizations, ER visits, or falls. Patient complaining today of shortness of breath which has been going on for the last 4-5 years andworsened about 2 years ago. States that the only exercise he gets is walking from his chair to the kitchen and back about 4-5 times per day. Admits to productive cough with white sputum. Denies wheezing, chest pain, palpitations, LE edema, lightheadedness/dizziness, syncope, bleeding or bruising symptoms. Workup completed for this in 2022 and 2023 with EKG, stress test, echo and labs which were unremarkable. Not interested in seeing any new specialists. Last f/u with neurosurgery 06/03 for history of cervical spinal fusion after fall. Had EMG which showed some denervation in the C5-7 motor groups which they believed was delayed response from surgery. States that he still has limited use of his left arm which he has referral to PT for. Needs to reachout to schedule. Still drinking 1-2 beers per day. No longer drinking liquor. Past medical history, appointments, medications, allergies reviewed. Previous Medical History PAST MEDICAL HISTORY Diagnosis Date AAA (abdominal aortic aneurysm) (HCC) 02/06/2012 01/10/17: CT abd 4.8 cm. s/p aortobiliac stent.-Dr. Johan Berg Actinic keratosis On [place], Dr. Dudley Acute deep vein thrombosis (DVT) of femoral vein of left lower extremity (HCC) 03/16/2018 02/19/18--on Eliquis At high risk for falls Basal cell carcinoma 2019 left cheek Benign essential tremor Benign hypertension 07/13/2015 BPH with obstruction/lower urinary tract symptoms Bruit right carotid artery Cervical spine fracture (HCC) C4 s/p fusion Chewing tobacco use Class 1 obesity due to excess calories without serious comorbidity with body mass index (BMI) of 33.0 to 33.9 in adult Closed rib fracture 01/2023 right rib fracture after fall Esophageal reflux Gastroesophageal reflux Facet arthritis of lumbar region 06/27/2014 History of carpal tunnel surgery 1990s History of fusion of cervical spine Hypertrophy of prostate without urinary obstruction and other lower urinary tract symptoms (LUTS) Hypertrophy of the prostate w/o obstruction Left leg DVT (HCC) 02/19/2018 Mixed hyperlipidemia Hyperlipidemia 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 Melo Personal history of colonic polyps Pulmonary emphysema (HCC) 12/31/2016 Sebaceous cyst Situational depression 07/03/2016 Squamous cell carcinoma 04/04/2015 Left cheek Venous insufficiency of both lower extremities 07/01/2014 Vertebral artery dissection (HCC) Previous Surgical History PAST SURGICAL HISTORY Procedure Laterality Date COLONOSCOPY 12/29/2017 adenomatous polyp, repeat in 5 years COLONOSCOPY FLX DX W/COLLJ SPEC WHEN PFRMD 08/17/2007 EXCISION TUMOR SOFT TISSUE THIGH/KNEE SUBQ <3CM REMOVED FATTY TUMORS FROM UNDER EXCISION TUMOR SOFT TISSUE THIGH/KNEE SUBQ <3CM RMOVED FATTY TUMORE INT REPAIR SCALP,JAYCOB,TRUNK 7.6-12.5CM 02/24/2007 back LAPS SURG CHOLECYSTECTOMY W/CHOLANGIOGRAPHY 09/07/2007 MRI 02/22/2014 [facility] - mri - right knee PAST SURGICAL HISTORY OF N/A 09/09/2017 Abdominal aneurysm aortic repair PAST SURGICAL HISTORY OF Right 2013 arthroscopic knee surgery PAST SURGICAL HISTORY OF Left excision of knee bursa PAST SURGICAL HISTORY OF 01/01/2024 Posterior segmental instrumentation and posterior lateral fusion C3-C6; ORIF of C4 fracture; C3-C6 laminectomy REM LESION TRUNK,ARM,LEG > 4.0CM 02/24/2007 back REM LESION TRUNK,ARM,LEG > 4.0CM REVISE MEDIAN N/CARPAL TUNNEL SURG Bilateral 1990s SURGERY (GENERAL SURGERY) CONSULT 04/25/2015 Invasive squamous cell carcincoma see scanned documents Family History FAMILY HISTORY Problem Relation Age of Onset Emphysema Mother Arthritis Sister Hypertension Maternal Grandmother No Known Problems Son No Known Problems Son No Known Problems Son No Known Problems Son No Known Problems Son Patient Allergies ALLERGIES Allergen Reactions Lipitor [Atorvastat* Intolerance Rosuvastatin Calcium Intolerance Srbaefx-Gra-Xzk Red* Myalgia Current Medications Current Outpatient Medications on File Prior to Visit Medication Sig finasteride (PROSCAR) 5 mg tablet Take 1 tablet by mouth once daily. tamsulosin (FLOMAX) 0.4 mg Take 1 capsule by mouth once daily. melatonin 3 mg tablet Take 3 tablets by mouth daily at bedtime. [id number]-UATONUCDG-FCLHUJKN 3.5 MG/ML-10,000 UNIT/ML-0.1% EYE DROPS Use 1 Drop in both eyes four times daily. acetaminophen (TYLENOL) 325 mg tablet Take 3 tablets by mouth every 6 hours as needed for pain. fluticasone (FLONASE) 50 mcg/actuation nasal spray Use 2 Sprays in each nostril once daily. Rinse mouth after use. aspirin, enteric coated (ECOTRIN LOW STRENGTH) 81 mg EC tablet Take 1 tablet by mouth once daily. gabapentin (NEURONTIN) 300 mg capsule Take 1 capsule by mouth three times a day for 30 days. evolocumab (REPATHA SURECLICK) 140 mg/mL pen injector Inject 140 mg subcutaneously every 2 weeks. No current facility-administered medications on file prior to visit. Social History Social History Tobacco Use Smoking status: Former Current packs/day: 0.00 Average packs/day: 1 pack/day for 30.0 years (30.0 ttl pk-yrs) Types: Cigarettes Start date: 06/02/1958 Quit date: 06/02/1988 Years since quittin.1 Smokeless tobacco: Former Types: Chew Tobacco comments: Brief relaps after of spouse. Vaping Use Vaping status: Never Used Substance Use Topics Alcohol use: Not Currently Drug use: No Review of Symptoms REVIEW OF SYSTEMS GENERAL: No weight loss, malaise or fevers RESPIRATORY: See HPI CARDIOVASCULAR: See HPI GI: No nausea, vomiting, or diarrhea SKIN: Negative for lesions, rash, and itching EXAM: BP 108/58 Pulse 95 Resp 16 SpO2 98% General Appearance: Well appearing, alert, in no acute distress, well-hydrated, well nourished.. Skin: Skin color, texture, turgor normal, no suspicious rashes or lesions. Lungs: Lungs clear to auscultation. No wheezing, rhonchi, rales.. Heart: RRR without murmur, gallop, or rubs. No ectopy. Abdomen: Normal abdominal exam, Abdomen soft, non-tender. Bowel sounds normal. No masses, organomegaly. 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 Good capillary refill. . Health Maintenance List Anxiety Screening Never done Shingrix Vaccine(1 of 2) Never done RSV Vaccine(1 - 1-dose 75+ series) Never done Advance Directive Discussion Never done Covid-19 Vaccine( season) due on 08/25/2024 Annual PCP Team Chronic Disease Visit due on 04/27/2025 BP Controlled (<130/80) due on 04/27/2025 Diabetes Screening due on 04/27/2027 DTaP,Tdap,Td Vaccine(4 - Td or Tdap) due on 03/26/2032 Spirometry Completed Influenza Vaccine Completed Pneumococcal Vaccine: 50+ Completed Colorectal Cancer Screening Discontinued Data reviewed Latest Ref Rng 02/26/2024 04/27/2024 WBC 3.70 - 11.00 k/uL 8.64 6.95 RBC 4.20 - 6.00 m/uL 4.66 4.64 Hemoglobin 13.0 - 17.0 g/dL 11.6 (L) 11.3 (L) Hematocrit 39.0 - 51.0 % 38.6 (L) 38.2 (L) MCV 80.0 - 100.0 fL 82.8 82.3 MCH 26.0 - 34.0 pg 24.9 (L) 24.4 (L) MCHC 30.5 - 36.0 g/dL 30.1 (L) 29.6 (L) RDW-CV 11.5 - 15.0 % 15.4 (H) 15.4 (H) Platelet Count 150 - 400 k/uL 227 216 MPV 9.0 - 12.7 fL 11.6 11.0 Neut% % 69.4 62.4 Abs Neut (ANC) 1.45 - 7.50 k/uL 6.00 4.34 Lymph% % 20.5 26.2 Abs Lymph 1.00 - 4.00 k/uL 1.77 1.82 Seward% % 7.9 8.8 Abs Seward <0.87 k/uL 0.68 0.61 Eosin% % 1.4 1.7 Abs Eosin <0.46 k/uL 0.12 0.12 Baso% % 0.5 0.6 Abs Baso <0.11 k/uL 0.04 0.04 Immature Gran % % 0.3 0.3 IMMATURE GRANS (ABS) <0.10 k/uL 0.03 <0.03 NRBC /100 WBC 0.0 0.0 Absolute nRBC <0.01 k/uL <0.01 <0.01 DTYPE Auto Auto Protein, Total 6.3 - 8.0 g/dL 7.1 7.0 Albumin 3.9 - 4.9 g/dL 3.4 (L) 3.3 (L) Calcium 8.5 - 10.2 mg/dL 9.1 8.8 Bilirubin, Total 0.2 - 1.3 mg/dL 0.2 0.2 Alkaline Phosphatase 38 - 113 U/L 261 (H) 216 (H) Alkaline Phosphatase 38 - 113 U/L 216 (H) AST 14 - 40 U/L 12 (L) 13 (L) ALT 10 - 54 U/L 7 (L) 6 (L) Glucose 74 - 99 mg/dL 94 73 (L) BUN 9 - 24 mg/dL 9 8 (L) Creatinine 0.73 - 1.22 mg/dL 0.80 0.85 Sodium 136 - 144 mmol/L 139 138 Potassium 3.7 - 5.1 mmol/L 4.2 4.1 Chloride 98 - 107 mmol/L 104 103 CO2 22 - 30 mmol/L 26 24 Anion Gap 8 - 15 mmol/L 9 11 eGFR >=60 mL/min/1.73m 91 89 Alk Phos Bone % 10.7 - 68.3 % 13.2 Bone Fraction 12.9 - 52.6 U/L 28.5 Alk Phos Liver % 26.0 - 86.2 % 86.8 (H) Liver Fraction 16.0 - 69.3 U/L 187.5 (H) Alk Phos Intestine % 0.0 - 24.2 % 0.0 Intestine Fraction 0.0 - 16.3 U/L 0.0 GGT 10 - 70 U/L 13 Legend: (L) Low (H) High ASSESSMENT/PLAN: 1. CHAU (dyspnea on exertion) - ICD9: 786.09, ICD10: R06.09 (primary diagnosis) Previous cardiac workup negative. Obtain CXR, PFTs and oximetry. Discussed may be 2/2 deconditioning. Red flags for re-assessment reviewed with patient in detail. - SPIROMETRY - BASELINE AND POST DILATOR - LUNG VOLUMES - COMPLETE BLOOD COUNT AND DIFFERENTIAL - COMPREHENSIVE METABOLIC PANEL - XR CHEST 2V FRONTAL/LAT - OXIMETRY WITH AMBULATION 2. History of fusion of cervical spine - ICD9: V45.4, ICD10: Z98.1 Healing well. Recommendations per neurosurgery. Schedule with PT. 3. Benign hypertension - ICD9: 401.1, ICD10: I10 - Controlled - Recommend home blood pressure monitoring, to bring results to next visit - Encouraged sodium restriction, DASH or Mediterranean diet - Recommend regular aerobic exercise 4. Alcohol use - ICD9: V49.89, ICD10: Z78.9 Alcohol use contributed to fall. Recommended abstinence from alcohol. Not wanting help with cessation. Kanchan Ge MD documented in this encounterK[facility] Telephone encounter Note * Telephone Encounter - Pillo Lizama MA - 07/27/2024 11:21 AM EST Referral placed for physical therapy in the [facility] [place] Internal Referral Portal. Confirmation # [id number] Pillo Lizama Ma [facility]02-[facility] Miscellaneous Notes* Telephone Encounter - Pillo Lizama MA - 07/27/2024 11:21 AM EST Referral placed for physical therapy in the [facility] [place] Internal Referral Portal. Confirmation # [id number] Pillo Lizama Ma documented in this encounterK[facility]01-02-2025 History of Present illness Narrative* Mando Ling MD - 06/03/2024 8:15 AM EST Images from the original note were not included. NEUROSURGERY TELEPHONE VISIT PROGRESS NOTE Mando Ling MD This is a telephone encounter initiated for an established patient, parent or guardian not originating from a related Evaluation & Management service provided within the previous 7 days nor leading to an Evaluation & Management service or procedure within the next 24 hours or soonest available appointment. Date of visit: June 03, 2024 Time of Service: 814 Patient Name: Mr.Michael Randle Date of : 1945 Current Age: [age] year old Sex: male MRN/E# [id number] Last Office Visit: 04/26/2024 Vicki Randle has consented to this telephone encounter. Persons Present: son (adult)Alex Chief Complaint/Reason: Follow up after EMG SURGERY: C3-C6 PCDF on 01/01/2024 Pre-Surgical Symptoms: fall - central cord syndrome Past Medical/Surgical History: Mr. Randle is a 78 year old male with a past medical history of AAA, DVT (on Eliquis), basal cell carcinoma, benign essential tremor, HTN, BPH, Bruit of right carotid artery, nodule of right lung, venous insufficiency of BLE. No significant surgical history. HPI: Mr. Randle was seen in the [facility] ED on 01/01/2024 after a fall and was found to have central cord syndome with neck pain and LUE pain/weakness. MRI showed ligamentous injury across C4-5 with severe canalstenosis. He was taken to the OR for C3-6 PCDF on 01/01/2024. He was last seen in the office on 04/26/2024 for a 6 week post operative visit when he when he continued to have some dexterity issues and gait imbalance and had been utilizing a walker for ambulation. He continued with weakness to the upper extremities. He had been participating in physical therapy but did not feel it was helping much. 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 Given continued weakness, an EMG was ordered to assess further, as well as shoulder xrays to assess for any intrinsic pathology. He was to follow up oncecompleted, prompting his virtual visit today. PREVIOUS CONSERVATIVE TREATMENTS: Physical therapy PAST MEDICAL HISTORY Diagnosis Date AAA (abdominal aortic aneurysm) ([facility]) 02/06/2012 01/10/17: CT abd 4.8 cm. s/p aortobiliac stent.-Dr. Johan Berg Actinic keratosis On [facility], Dr. Dudley Acute deep vein thrombosis (DVT) of femoral vein of left lower extremity ([facility]) 03/16/2018 02/19/18--on Eliquis At high risk for falls Basal cell carcinoma 2019 left cheek Benign essential tremor Benign hypertension 07/13/2015 BPH with obstruction/lower urinary tract symptoms Bruit right carotid artery Cervical spine fracture ([facility]) C4 s/p fusion Chewing tobacco use Class 1 obesity due to excess calories without serious comorbidity with body mass index (BMI) of 33.0 to 33.9 in adult Closed rib fracture 01/2023 right rib fracture after fall Esophageal reflux Gastroesophageal reflux Facet arthritis of lumbar region 06/27/2014 History of carpal tunnel surgery 1990s History of fusion of cervical spine Hypertrophy of prostate without urinary obstruction and other lower urinary tract symptoms (LUTS) Hypertrophy of the prostate w/o obstruction Left leg DVT ([facility]) 02/19/2018 Mixed hyperlipidemia Hyperlipidemia 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 Melo Personal history of colonic polyps Pulmonary emphysema ([facility]) 12/31/2016 Sebaceous cyst Situational depression 07/03/2016 Squamous cell carcinoma 04/04/2015 Left cheek Venous insufficiency of both lower extremities 07/01/2014 Vertebral artery dissection ([facility]) PAST SURGICAL HISTORY Procedure Laterality Date COLONOSCOPY 12/29/2017 adenomatous polyp, repeat in 5 years COLONOSCOPY FLX DX W/COLLJ SPEC WHEN PFRMD 08/17/2007 EXCISION TUMOR SOFT TISSUE THIGH/KNEE SUBQ <3CM REMOVED FATTY TUMORS FROM UNDER EXCISION TUMOR SOFT TISSUE THIGH/KNEE SUBQ <3CM RMOVED FATTY TUMORE INT REPAIR SCALP,JAYCOB,TRUNK 7.6-12.5CM 02/24/2007 back LAPS SURG CHOLECYSTECTOMY W/CHOLANGIOGRAPHY 09/07/2007 MRI 02/22/2014 [facility] - mri - right knee PAST SURGICAL HISTORY OF N/A 09/09/2017 Abdominal aneurysm aortic repair PAST SURGICAL HISTORY OF Right 2013 arthroscopic knee surgery PAST SURGICAL HISTORY OF Left excision of knee bursa PAST SURGICAL HISTORY OF 01/01/2024 Posterior segmental instrumentation and posterior lateral fusion C3-C6; ORIF of C4 fracture; C3-C6 laminectomy REM LESION TRUNK,ARM,LEG > 4.0CM 02/24/2007 back REM LESION TRUNK,ARM,LEG > 4.0CM REVISE MEDIAN N/CARPAL TUNNEL SURG Bilateral 1990s SURGERY (GENERAL SURGERY) CONSULT 04/25/2015 Invasive squamous cell carcincoma see scanned documents FAMILY HISTORY Problem Relation Age of Onset Emphysema Mother Arthritis Sister Hypertension Maternal Grandmother No Known Problems Son No Known Problems Son No Known Problems Son No Known Problems Son No Known Problems Son ALLERGIES Allergen Reactions Lipitor [Atorvastat* Intolerance Rosuvastatin Calcium Intolerance Mlxtcyx-Fgq-Zvy Red* Myalgia Current Outpatient Medications Medication Sig Dispense Refill finasteride (PROSCAR) 5 mg tablet Take 1 tablet by mouth once daily. 90 tablet 1 tamsulosin (FLOMAX) 0.4 mg Take 1 capsule by mouth once daily. 90 capsule 1 gabapentin (NEURONTIN) 300 mg capsule Take 1 capsule by mouth three times a day for 30 days. melatonin 3 mg tablet Take 3 tablets by mouth daily at bedtime. QWGEEQEB-OYCDFZZIK-KIEIVNBE 3.5 MG/ML-10,000 UNIT/ML-0.1% EYE DROPS Use 1 Drop in both eyes four times daily. evolocumab (REPATHA SURECLICK) 140 mg/mL pen injector Inject 140 mg subcutaneously every 2 weeks. 6mL 1 acetaminophen (TYLENOL) 325 mg tablet Take 3 tablets by mouth every 6 hours as needed for pain. fluticasone (FLONASE) 50 mcg/actuation nasal spray Use 2 Sprays in each nostril once daily. Rinse mouth after use. 1 Each 2 aspirin, enteric coated (ECOTRIN LOW STRENGTH) 81 mg EC tablet Take 1 tablet by mouth once daily. 0 No current facility-administered medications for this visit. REVIEW OF SYSTEMS Review of Systems Data Reviewed: IMAGING STUDIES: EMG 05/28/2024 XRAY LEFT SHOULDER 05/06/2024 IMPRESSION: No acute abnormality Assessment: S/p C3-C6 PCDF after a fall resulting in central cord syndrome. According to Alex, the patient has made slow improvement over the last month. He is walking better at home, and is regaining some strength in his left upper extremity. I reviewed the EMG report with Alex, as I was unable to reach Adrian over the phone. The EMG shows denervation in the C5-7 motor groups, which is at the site of injury. I believe this is a delayed response after his injury, which is something that can be seen in central cord. I reviewed his MRI and CT scan carefully, and there is no evidence of any central canal stenosis or foraminal stenosis at these levels. The best treatment for this is continued rehab, therapy,and time for the nerves to recover. I will see the patient back in my office as scheduled in approximately 6 weeks. All questions were answered. Plan: Follow up as scheduled in 6-8 weeks with XR Time Spent: 5-10 minutes Attribution: The following portions of the patient's history were reviewed, confirmed, and updated as necessary:allergies, current medications, past family history, past medical history, past social history, past surgical history, problem list, HPI, and ROS obtained by others. Some elements may be copied from a previous office note and have been reviewed/updated where appropriate. All portions reflect current medical decision making from today. The clinical and radiographic findings as well as the risks, benefits and alternatives of treatmenthave been reviewed in detail with the patient. Advised to call the office if symptoms worsen or new symptoms develop. Patient expressed understanding and is in agreement with plan. Mando Ling MD [facility] This note was partially generated using [employer] voice recognition system, and there may be some incorrect words, spellings, and punctuation that were not noted in checking the note before saving. documented in this encounterK[facility]01-02-2025 NoteHNO ID: [id number] Author: MANDO LING MD Service: ? Author Type: Physician Type: Progress Notes Filed: 06/03/2024 08:32 Note Text: NEUROSURGERY TELEPHONE VISIT PROGRESS NOTE Mando Ling MD This is a telephone encounter initiated for an established patient, parent or guardian not originating from a related Evaluation AND Management service provided within the previous 7 days nor leading to an Evaluation AND Management service or procedure within the next 24 hours or soonest available appointment. Date of visit: June 03, 2024 Time of Service: 814 Patient Name: Mr.Michael Randle Date of : 1945 Current Age: [age] year old Sex: male MRN/E# [id number] Last Office Visit: 04/26/2024 Vicki Randle has consented to this telephone encounter. Persons Present: son (adult)Alex Chief Complaint/Reason: Follow up after EMG SURGERY: C3-C6 PCDF on 01/01/2024 Pre-Surgical Symptoms: fall - central cord syndrome Past Medical/Surgical History: Mr. Randle is a 78 year old male with a past medical history of AAA, DVT (on Eliquis), basal cell carcinoma, benign essential tremor, HTN, BPH, Bruit of right carotid artery, nodule of right lung, venous insufficiency of BLE. No significant surgical history. HPI: Mr. Randle was seen in the [facility] ED on 01/01/2024 after a fall and was found to have central cord syndome with neck pain and LUE pain/weakness. MRI showed ligamentous injury across C4-5 with severe canal stenosis. He was taken to the OR for C3-6 PCDF on 01/01/2024. He was last seen in the office on 04/26/2024 for a 6 week post operative visit when he when he continued to have some dexterity issues and gait imbalance and had been utilizing a walker for ambulation. He continued with weakness to the upper extremities. He had been participating in physical therapy but did not feel it was helping much. 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 Given continued weakness, an EMG was ordered to assess further, as well as shoulder xrays to assess for any intrinsic pathology. He was to follow up once completed, prompting his virtual visit today. PREVIOUS CONSERVATIVE TREATMENTS: Physical therapy PAST MEDICAL HISTORY Diagnosis Date AAA (abdominal aortic aneurysm) ([facility]) 02/06/2012 01/10/17: CT abd 4.8 cm. s/p aortobiliac stent.-Dr. oJhan Berg Actinic keratosis On [facility], Dr. Dudley Acute deep vein thrombosis (DVT) of femoral vein of left lower extremity ([facility]) 03/16/2018 02/19/18--on Eliquis At high risk for falls Basal cell carcinoma 2019 left cheek Benign essential tremor Benign hypertension 07/13/2015 BPH with obstruction/lower urinary tract symptoms Bruit right carotid artery Cervical spine fracture ([facility]) C4 s/p fusion Chewing tobacco use Class 1 obesity due to excess calories without serious comorbidity with body mass index (BMI) of 33.0 to 33.9 in adult Closed rib fracture 01/2023 right rib fracture after fall Esophageal reflux Gastroesophageal reflux Facet arthritis of lumbar region 06/27/2014 History of carpal tunnel surgery History of fusion of cervical spine Hypertrophy of prostate without urinary obstruction and other lower urinary tract symptoms (LUTS) Hypertrophy of the prostate w/o obstruction Left leg DVT ([facility]) 02/19/2018 Mixed hyperlipidemia Hyperlipidemia 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 Melo Personal history of colonic polyps Pulmonary emphysema ([facility]CC) 12/31/2016 Sebaceous cyst Situational depression 07/03/2016 Squamous cell carcinoma 04/04/2015 Left cheek Venous insufficiency of both lower extremities 07/01/2014 Vertebral artery dissection ([facility]) PAST SURGICAL HISTORY Procedure Laterality Date COLONOSCOPY 12/29/2017 adenomatous polyp, repeat in 5 years COLONOSCOPY FLX DX W/COLLJ SPEC WHEN PFRMD 08/17/2007 EXCISION TUMOR SOFT TISSUE THIGH/KNEE SUBQ <3CM REMOVED FATTY TUMORS FROM UNDER EXCISION TUMOR SOFT TISSUE THIGH/KNEE SUBQ <3CM RMOVED FATTY TUMORE INT REPAIR SCALP,JAYCOB,TRUNK 7.6-12.5CM 02/24/2007 back LAPS SURG CHOLECYSTECTOMY W/CHOLANGIOGRAPHY 09/07/2007 MRI 02/22/2014 [facility] - mri - right knee PAST SURGICAL HISTORY OF N/A 09/09/2017 Abdominal aneurysm aortic repair PAST SURGICAL HISTORY OF Right 2013 arthroscopic knee surgery PAST SURGICAL HISTORY OF Left excision of knee bursa PAST SURGICAL HISTORY OF 01/01/2024 Posterior segmental instrumentation and posterior lateral fusion C3-C6; ORIF of C4 fracture; C3-C6 laminectomy REM LESION TRUNK,ARM,LEG > 4.0CM 02/24/2007 back REM LESION TRUNK,ARM,LEG > 4.0CM REVISE MEDIAN N/CARPAL TUNNEL SURG Bilateral 1990s SURGERY (GENERAL SURGERY) (more content not included)...[facility]12-27-2024 History of Present illness Narrative* Henry Isbell DO - 05/28/2024 2:13 PM EST UNIVERSAL PROTOCOL / SAFETY CHECKLIST Procedure to be Performed: EMG Sign In: A Moment of CARE was completed. Personnel directly involved with the procedure wore the appropriate PPE (Personal Protective Equipment). Patient/Surrogate Stated/Verified: PATIENT VERIFIED(optional for EMERGENT procedures): Patient name, Date of , Relevant allergies, and The intended procedure Time Out Communication: Intended patient and procedure match the source documents. Correct side/site marked and visible. Sign Out: SIGN OUT (optional for EMERGENT procedures): Post-procedure follow-up management communicated and Plan of Care Visit completed when applicable. EMBER Crook DO documented in this encounterK[facility]12-27-2024 NoteHNO ID: [id number] Author: HENRY ISBELL DO Service: ? Author Type: Physician Type: Progress Notes Filed: 05/28/2024 15:00 Note Text: UNIVERSAL PROTOCOL / SAFETY CHECKLIST Procedure to be Performed: EMG Sign In: A Moment of CARE was completed. Personnel directly involved with the procedure wore the appropriate PPE (Personal Protective Equipment). Patient/Surrogate Stated/Verified: PATIENT VERIFIED(optional for EMERGENT procedures): Patient name, Date of , Relevant allergies, and The intended procedure Time Out Communication: Intended patient and procedure match the source documents. Correct side/site marked and visible. Sign Out: SIGN OUT (optional for EMERGENT procedures): Post-procedure follow-up management communicated and Plan of Care Visit completed when applicable. EMBER Crook, [facility]12-05-2024 History of Present illness Narrative* Nova Floyd RDMS - 05/06/2024 1:45 PM EST Radiology Service Progress Note PATIENT NAME: Vicki Randle DATE OF SERVICE: May 06, 2024 TIME: 2:29 PM PATIENT IDENTITY VERIFICATION COMPLETED USING TWO (2) IDENTIFIERS: Name and Date of confirmedby patient verbally. FALL SCREENING: Has the patient had 2 falls in the last year or 1 fall with injury or currently using an Ambulatory Assistive Device (Walker, Cane, Wheelchair, Crutches, etc.)? Yes, Patient High Riskfor Falls What interventions were put in place to prevent falls during this visit? Offered Assistance with Transfers/Clothing, Instructed Patient to Remain Seated (Not on Exam Table) Until Exam, and Increased Observations by Caregivers PATIENT GENDER DATA: Male PATIENT RELEVANT IMPLANT DATA REVIEWED: Not Applicable PATIENT PRESENTS WITH AN IMPLANTABLE OR ATTACHED AGRICULTURE SPECIALIST: No RADIOLOGY DEPARTMENT: Ultrasound PERIPHERAL IV DATA: Not applicable SIGNED BY: Nova Floyd RDMS May 06, 2024 2:29 PM documented in this encounterKettering [facility]12-05-2024 NoteHNO ID: [id number] Author: NOVA FLOYD RDMS Service: ? Author Type: Under Baster Type: Progress Notes Filed: 05/06/2024 14:29 Note Text: Radiology Service Progress Note PATIENT NAME: Vicki Randle DATE OF SERVICE: May 06, 2024 TIME: 2:29 PM PATIENT IDENTITY VERIFICATION COMPLETED USING TWO (2) IDENTIFIERS: Name and Date of confirmed by patient verbally. FALL SCREENING: Has the patient had 2 falls in the last year or 1 fall with injury or currently using an Ambulatory Assistive Device (Walker, Cane, Wheelchair, Crutches, etc.)? Yes, Patient High Risk for Falls What interventions were put in place to prevent falls during this visit? Offered Assistance with Transfers/Clothing, Instructed Patient to Remain Seated (Not on Exam Table) Until Exam, and Increased Observations by Caregivers PATIENT GENDER DATA: Male PATIENT RELEVANT IMPLANT DATA REVIEWED: Not Applicable PATIENT PRESENTS WITH AN IMPLANTABLE OR ATTACHED AGRICULTURE SPECIALIST: No RADIOLOGY DEPARTMENT: Ultrasound PERIPHERAL IV DATA: Not applicable SIGNED BY: Nova Floyd RDMS May 06, 2024 2:29 [facility]12-03-2024 Telephone encounter Note* Telephone Encounter - Rose Pascual RN - 05/04/2024 2:07 PM EST Pt returned the call and notified of Dr. Ge's results and information. Transferred pt to a wastewater plant operator to set up his liver ultrasound. [facility] Miscellaneous Notes* Telephone Encounter - Rose Pascual RN - 05/04/2024 2:07 PM EST Pt returned the call and notified of Dr. Ge's results and information. Transferred pt to a wastewater plant operator to set up his liver ultrasound. * Telephone Encounter - Laura Hills LPN - 05/04/2024 11:04 AM EST Phoned patient and VM left for him to return call and request to speak with a nurse for provider update re: results. Laura Hills LPN * Telephone Encounter - Kanchan Ge MD - 05/04/2024 10:35 AM EST Patient's alk phos remains elevated without elevated LFTs. Patient's liver fraction for alk phos iselevated. Recommend liver US for further evaluation. Patient's mild anemia is stable over the last 2 months. Will continue to monitor at next OV. Likelyrelated to history of fall with vertebral artery dissection. documented in this encounterKettering [facility]12-03-2024 Telephone encounter Note * Telephone Encounter - Laura Hills LPN - 05/04/2024 11:04 AM EST Phoned patient and VM left for him to return call and request to speak with a nurse for provider update re: results. Laura Hills LPN [facility]12-03-[facility] Telephone encounter Note* Telephone Encounter - Kanchan Ge MD - 05/04/2024 10:35 AM EST Patient's alk phos remains elevated without elevated LFTs. Patient's liver fraction for alk phos iselevated. Recommend liver US for further evaluation. Patient's mild anemia is stable over the last 2 months. Will continue to monitor at next OV. Likelyrelated to history of fall with vertebral artery dissection. [facility]11-[facility] History of Present illness Narrative* Nelson Falcon RT(R) - 04/27/2024 3:00 PM EST Radiology Service Progress Note PATIENT NAME: Vicki Randle DATE OF SERVICE: April 28, 2024 TIME: 1:08 AM PATIENT IDENTITY VERIFICATION COMPLETED USING TWO (2) IDENTIFIERS: Name and Date of confirmedby patient verbally. FALL SCREENING: Has the patient had 2 falls in the last year or 1 fall with injury or currently using an Ambulatory Assistive Device (Walker, Cane, Wheelchair, Crutches, etc.)? Yes, Patient High Riskfor Falls What interventions were put in place to prevent falls during this visit? Increased Observations by Caregivers PATIENT GENDER DATA: Male PATIENT RELEVANT IMPLANT DATA REVIEWED: Not Applicable PATIENT PRESENTS WITH AN IMPLANTABLE OR ATTACHED AGRICULTURE SPECIALIST: No RADIOLOGY DEPARTMENT: General X-ray: Exam(s) Completed: Spine X-Ray(s): Cervical AP / LAT Upper Extremity X-Ray(s): Shoulder, AP / TRUE AP right PERIPHERAL IV DATA: Not applicable SIGNED BY: RT Peg(R) April 28, 2024 1:08 AM documented in this encounterKettering [facility] Hospital11-26-2024 NoteHNO ID: [id number] Author: NELSON FALCON RT(R) Service: ? Author Type: Technologist Type: Progress Notes Filed: 04/28/2024 01:08 Note Text: Radiology Service Progress Note PATIENT NAME: Vicki Randle DATE OF SERVICE: April 28, 2024 TIME: 1:08 AM PATIENT IDENTITY VERIFICATION COMPLETED USING TWO (2) IDENTIFIERS: Name and Date of confirmed by patient verbally. FALL SCREENING: Has the patient had 2 falls in the last year or 1 fall with injury or currently using an Ambulatory Assistive Device (Walker, Cane, Wheelchair, Crutches, etc.)? Yes, Patient High Risk for Falls What interventions were put in place to prevent falls during this visit? Increased Observations by Caregivers PATIENT GENDER DATA: Male PATIENT RELEVANT IMPLANT DATA REVIEWED: Not Applicable PATIENT PRESENTS WITH AN IMPLANTABLE OR ATTACHED AGRICULTURE SPECIALIST: No RADIOLOGY DEPARTMENT: General X-ray: Exam(s) Completed: Spine X-Ray(s): Cervical AP / LAT Upper Extremity X-Ray(s): Shoulder, AP / TRUE AP right PERIPHERAL IV DATA: Not applicable SIGNED BY: RT Peg(R) April 28, 2024 1:08 [facility]11-26-2024 NoteHNO ID: [id number] Author: KANCHAN GE MD Service: ? Author Type: Physician Type: Progress Notes Filed: 04/28/2024 12:25 Note Text: Chief Complaint Patient presents with: Follow Up: 2 month -has home PT order that was placed yesterday HPI Vicki Randle is a 78 year old male who presents here today for Above Complaints. Accompanied today by his son. Patient had follow up with neurosurgery yesterday for follow up on his cervical spine fracture s/p fusion after fall at home with following recommendations: Mr. 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 He has bilateral C5 palsy. At her last visit, he had some weakness in his biceps and triceps as well, but this is improving. He is not really able to lift his shoulders up at all. He is working with physical therapy, but feels that home health PT visits were quite helpful for him. He had an MRI today which shows no residual stenosis. I explained that he likely has C5 palsy, and the only treatment is time and therapy. I will order an EMG study of his upper extremities to see if we can diagnosis electrically. I will also order x-rays of the shoulders bilaterally to assess for any intrinsic pathology. I will follow-up with him over the phone once his EMG study is complete. Otherwise, I encouraged him to continue therapy and work on strengthening his muscles. I will see him back in 3 months with AP and lateral x-rays. All questions were answered. Patient states that he is drinking 1 beer per week, but has cut out the hard liquor. No falls since our last OV. Using wheeled walker for ambulation. Needs to complete xrays, EMG, and set up home health care. Doing HEP almost every day. Patient states that he thinks he is taking his flomax and Proscar on a daily basis and has weak stream which has not changed recently. Not sure about the flomax and will check when he gets home. Denies dysuria, hematuria, nocturia, incomplete emptying. BP in good range without rx. Due for repeat labs to monitor high alk phos thought to be caused by recent fracture. Past medical history, appointments, medications, allergies reviewed. Previous Medical History PAST MEDICAL HISTORY Diagnosis Date AAA (abdominal aortic aneurysm) ([facility]) 02/06/2012 01/10/17: CT abd 4.8 cm. s/p aortobiliac stent.-Dr. Johan Berg Actinic keratosis On [facility], Dr. Dudley Acute deep vein thrombosis (DVT) of femoral vein of left lower extremity ([facility]) 03/16/2018 02/19/18--on Eliquis At high risk for falls Basal cell carcinoma 2019 left cheek Benign essential tremor Benign hypertension 07/13/2015 BPH with obstruction/lower urinary tract symptoms Bruit right carotid artery Chewing tobacco use Class 1 obesity due to excess calories without serious comorbidity with body mass index (BMI) of 33.0 to 33.9 in adult Closed rib fracture 01/2023 right rib fracture after fall Esophageal reflux Gastroesophageal reflux Facet arthritis of lumbar region 06/27/2014 History of carpal tunnel surgery 1990s Hypertrophy of prostate without urinary obstruction and other lower urinary tract symptoms (LUTS) Hypertrophy of the prostate w/o obstruction Left leg DVT ([facility]) 02/19/2018 Mixed hyperlipidemia Hyperlipidemia 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 Melo Personal history of colonic polyps Pulmonary emphysema (HCC) 12/31/2016 Sebaceous cyst Situational depression 07/03/2016 Squamous cell carcinoma 04/04/2015 Left cheek Venous insufficiency of both lower extremities 07/01/2014 Previous Surgical History PAST SURGICAL HISTORY Procedure Laterality Date COLONOSCOPY 12/29/2017 adenomatous polyp, repeat in 5 years COLONOSCOPY FLX DX W/COLLJ SPEC WHEN PFRMD 08/17/2007 EXCISION TUMOR SOFT TISSUE THIGH/KNEE SUBQ <3CM REMOVED FATTY TUMORS FROM UNDER EXCISION TUMOR SOFT TISSUE THIGH/KNEE SUBQ <3CM RMOVED FATTY TUMORE INT REPAIR SCALP,JAYCOB,TRUNK 7.6-12.5CM 02/24/2007 back LAPS SURG CHOLECYSTECTOMY W/CHOLANGIOGRAPHY 09/07/2007 MRI 02/22/2014 [facility] - mri - right knee PAST SURGICAL HISTORY OF N/A 09/09/2017 Abdominal aneurysm aortic repair PAST SURGICAL HISTORY OF Right 2013 arthroscopic knee surgery PAST SURGICAL HISTORY OF Left excision of knee bursa REM LESION TRUNK,ARM,LEG > 4.0CM 02/24/2007 back REM LESION TRUNK,ARM,LEG > 4.0CM REVISE MEDIAN N/CARPAL TUNNEL SURG Bilateral 1990s SURGERY (GENERAL SURGERY) CONSULT 04/25/2015 Invasive squamous cell carcincoma see scanned documents Family History FAMILY HISTORY Problem Relation Age of Onset Emphysema Mother Arthritis Sister Hypertension Maternal Grandmother No Known Problems S (more content not included)...[facility] 04-27-2024 History of Present illness Narrative* Kanchan Ge MD - 04/27/2024 2:03 PM EST Chief Complaint Patient presents with: Follow Up: 2 month -has home PT order that was placed yesterday HPI Vicki Randle is a 78 year old male who presents here today for Above Complaints. Accompanied todayby his son. Patient had follow up with neurosurgery yesterday for follow up on his cervical spine fracture s/p fusion after fall at home with following recommendations: Mr. 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 He has bilateral C5 palsy. At her lastvisit, he had some weakness in his biceps and triceps as well, but this is improving. He is not really able to lift his shoulders up at all. He is working with physical therapy, but feels that home health PT visits were quite helpful for him. He had an MRI today which shows no residual stenosis. I explained that he likely has C5 palsy, and the only treatment is time and therapy. I will order an EMG study of his upper extremities to see if we can diagnosis electrically. I will also order x-rays of the shoulders bilaterally to assess for any intrinsic pathology. I will follow- up with him over the phone once his EMG study is complete. Otherwise, I encouraged him to continue therapy and work onstrengthening his muscles. I will see him back in 3 months with AP and lateral x-rays. All questions were answered. Patient states that he is drinking 1 beer per week, but has cut out the hard liquor. No falls sinceour last OV. Using wheeled walker for ambulation. Needs to complete xrays, EMG, and set up home health care. Doing HEP almost every day. Patient states that he thinks he is taking his flomax and Proscar on a daily basis and has weak stream which has not changed recently. Not sure about the flomax and will check when he gets home. Denies dysuria, hematuria, nocturia, incomplete emptying. BP in good range without rx. Due for repeat labs to monitor high alk phos thought to be caused by recent fracture. Past medical history, appointments, medications, allergies reviewed. Previous Medical History PAST MEDICAL HISTORY Diagnosis Date AAA (abdominal aortic aneurysm) ([facility]) 02/06/2012 01/10/17: CT abd 4.8 cm. s/p aortobiliac stent.-Dr. Johan Berg Actinic keratosis On [facility], Dr. Dudley Acute deep vein thrombosis (DVT) of femoral vein of left lower extremity ([facility]) 03/16/2018 02/19/18--on Eliquis At high risk for falls Basal cell carcinoma 2019 left cheek Benign essential tremor Benign hypertension 07/13/2015 BPH with obstruction/lower urinary tract symptoms Bruit right carotid artery Chewing tobacco use Class 1 obesity due to excess calories without serious comorbidity with body mass index (BMI) of 33.0 to 33.9 in adult Closed rib fracture 01/2023 right rib fracture after fall Esophageal reflux Gastroesophageal reflux Facet arthritis of lumbar region 06/27/2014 History of carpal tunnel surgery Hypertrophy of prostate without urinary obstruction and other lower urinary tract symptoms (LUTS) Hypertrophy of the prostate w/o obstruction Left leg DVT (HCC) 02/19/2018 Mixed hyperlipidemia Hyperlipidemia 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 Melo Personal history of colonic polyps Pulmonary emphysema (HCC) 12/31/2016 Sebaceous cyst Situational depression 07/03/2016 Squamous cell carcinoma 04/04/2015 Left cheek Venous insufficiency of both lower extremities 07/01/2014 Previous Surgical History PAST SURGICAL HISTORY Procedure Laterality Date COLONOSCOPY 12/29/2017 adenomatous polyp, repeat in 5 years COLONOSCOPY FLX DX W/COLLJ SPEC WHEN PFRMD 08/17/2007 EXCISION TUMOR SOFT TISSUE THIGH/KNEE SUBQ <3CM REMOVED FATTY TUMORS FROM UNDER EXCISION TUMOR SOFT TISSUE THIGH/KNEE SUBQ <3CM RMOVED FATTY TUMORE INT REPAIR SCALP,JAYCOB,TRUNK 7.6-12.5CM 02/24/2007 back LAPS SURG CHOLECYSTECTOMY W/CHOLANGIOGRAPHY 09/07/2007 MRI 02/22/2014 [facility] - mri - right knee PAST SURGICAL HISTORY OF N/A 09/09/2017 Abdominal aneurysm aortic repair PAST SURGICAL HISTORY OF Right 2013 arthroscopic knee surgery PAST SURGICAL HISTORY OF Left excision of knee bursa REM LESION TRUNK,ARM,LEG > 4.0CM 02/24/2007 back REM LESION TRUNK,ARM,LEG > 4.0CM REVISE MEDIAN N/CARPAL TUNNEL SURG Bilateral SURGERY (GENERAL SURGERY) CONSULT 04/25/2015 Invasive squamous cell carcincoma see scanned documents Family History FAMILY HISTORY Problem Relation Age of Onset Emphysema Mother Arthritis Sister Hypertension Maternal Grandmother No Known Problems Son No Known Problems Son No Known Problems Son No Known Problems Son No Known Problems Son Patient Allergies ALLERGIES Allergen Reactions Lipitor [Atorvastat* Intolerance Rosuvastatin Calcium Intolerance Uwdhunz-Lve-Ibc Red* Myalgia Current Medications Current Outpatient Medications on File Prior to Visit Medication Sig finasteride (PROSCAR) 5 mg tablet Take 1 tablet by mouth once daily. tamsulosin (FLOMAX) 0.4 mg Take 1 capsule by mouth once daily. melatonin 3 mg tablet Take 3 tablets by mouth daily at bedtime. [id number] 3.5 MG/ML-10,000 UNIT/ML-0.1% EYE DROPS Use 1 Drop in both eyes four times daily. evolocumab (REPATHA SURECLICK) 140 mg/mL pen injector Inject 140 mg subcutaneously every 2 weeks. acetaminophen (TYLENOL) 325 mg tablet Take 3 tablets by mouth every 6 hours as needed for pain. fluticasone (FLONASE) 50 mcg/actuation nasal spray Use 2 Sprays in each nostril once daily. Rinse mouth after use. aspirin, enteric coated (ECOTRIN LOW STRENGTH) 81 mg EC tablet Take 1 tablet by mouth once daily. gabapentin (NEURONTIN) 300 mg capsule Take 1 capsule by mouth three times a day for 30 days. No current facility-administered medications on file prior to visit. Social History Social History Tobacco Use Smoking status: Former Current packs/day: 0.00 Average packs/day: 1 pack/day for 30.0 years (30.0 ttl pk-yrs) Types: Cigarettes Start date: 06/02/1958 Quit date: 06/02/1988 Years since quittin.9 Smokeless tobacco: Former Types: Chew Tobacco comments: Brief relaps after of spouse. Vaping Use Vaping status: Never Used Substance Use Topics Alcohol use: Not Currently Drug use: No Review of Symptoms REVIEW OF SYSTEMS GENERAL: No weight loss, malaise or fevers RESPIRATORY: Negative for cough, hemoptysis, wheezing, COPD, dyspnea or shortness of breath CARDIOVASCULAR: Negative for chest pain, leg swelling, hypertension, CHF or palpitations GI: No nausea, vomiting, or diarrhea SKIN: Negative for lesions, rash, and itching EXAM: BP 110/62 Pulse (!) 56 Resp 16 Wt 97.3 kg (214 lb 9.6 oz) SpO2 98% BMI 28.31 kg/m General Appearance: Well appearing, alert, in no acute distress, well-hydrated, well nourished.. Skin: Skin color, texture, turgor normal, no suspicious rashes or lesions. Lungs: Lungs clear to auscultation. No wheezing, rhonchi, rales.. Heart: RRR without murmur, gallop, or rubs. No ectopy. Abdomen: Normal abdominal exam, Abdomen soft, non-tender. Bowel sounds normal. No masses, organomegaly. 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 Good capillary refill. . Health Maintenance List Anxiety Screening Never done Hepatitis C Screening Never done Shingrix Vaccine(1 of 2) Never done RSV Vaccine(1 - 1-dose 75+ series) Never done Advance Directive Discussion Never done Annual PCP Team Chronic Disease Visit due on 02/25/2025 BP Controlled (<130/80) due on 04/26/2025 Diabetes Screening due on 02/25/2027 DTaP,Tdap,Td Vaccine(4 - Td or Tdap) due on 03/26/2032 Spirometry Completed Influenza Vaccine Completed Covid-19 Vaccine Completed Pneumococcal Vaccine: 65+ Completed HPV Vaccine Aged Out Colorectal Cancer Screening Discontinued Data reviewed Latest Ref Rng 01/08/2024 02/26/2024 WBC 3.70 - 11.00 k/uL 9.10 8.64 RBC 4.20 - 6.00 m/uL 3.83 (L) 4.66 Hemoglobin 13.0 - 17.0 g/dL 10.6 (L) 11.6 (L) Hematocrit 39.0 - 51.0 % 34.3 (L) 38.6 (L) MCV 80.0 - 100.0 fL 89.6 82.8 MCH 26.0 - 34.0 pg 27.7 24.9 (L) MCHC 30.5 - 36.0 g/dL 30.9 30.1 (L) RDW-CV 11.5 - 15.0 % 16.7 (H) 15.4 (H) Platelet Count 150 - 400 k/uL 416 (H) 227 MPV 9.0 - 12.7 fL 10.3 11.6 Neut% % 69.4 Abs Neut (ANC) 1.45 - 7.50 k/uL 6.00 Lymph% % 20.5 Abs Lymph 1.00 - 4.00 k/uL 1.77 [place]% % 7.9 Abs [place] <0.87 k/uL 0.68 Eosin% % 1.4 Abs Eosin <0.46 k/uL 0.12 Baso% % 0.5 Abs Baso <0.11 k/uL 0.04 Immature Gran % % 0.3 IMMATURE GRANS (ABS) <0.10 k/uL 0.03 NRBC /100 WBC 0.0 Absolute nRBC <0.01 k/uL <0.01 <0.01 DTYPE Auto Protein, Total 6.3 - 8.0 g/dL 7.1 Albumin 3.9 - 4.9 g/dL 3.4 (L) Calcium 8.5 - 10.2 mg/dL 8.9 9.1 Bilirubin, Total 0.2 - 1.3 mg/dL 0.2 Alkaline Phosphatase 38 - 113 U/L 261 (H) AST 14 - 40 U/L 12 (L) ALT 10 - 54 U/L 7 (L) Glucose 74 - 99 mg/dL 114 (H) 94 BUN 9 - 24 mg/dL 17 9 Creatinine 0.73 - 1.22 mg/dL 0.88 0.80 Sodium 136 - 144 mmol/L 137 139 Potassium 3.7 - 5.1 mmol/L 4.3 4.2 Chloride 98 - 107 mmol/L 103 104 CO2 22 - 30 mmol/L 24 26 Anion Gap 8 - 15 mmol/L 10 9 eGFR >=60 mL/min/1.73m 88 91 Legend: (L) Low (H) High ASSESSMENT/PLAN: 1. Other closed nondisplaced fracture of fourth cervical vertebra, sequela - ICD9: 905.1, ICD10: S12.391S (primary diagnosis) S/p cervical fusion with symptoms of C5 palsy. No recurrent falls. Continue PT to help improve upper extremity weakness. F/u with neurosurgery as recommended. Discussed cessation of alcohol. Continuewalker for ambulation. 2. History of fusion of cervical spine - ICD9: V45.4, ICD10: Z98.1 See above. 3. Benign hypertension - ICD9: 401.1, ICD10: I10 - Controlled - Continue current medications - Recommend home blood pressure monitoring, to bring results to next visit - Encouraged sodium restriction, DASH or Mediterranean diet - Recommend regular aerobic exercise 4. Hyperlipidemia with target LDL less than 100 - ICD9: 272.4, ICD10: E78.5 - Controlled - Continue current medications - Counseled on healthy diet and regular exercise 5. BPH with obstruction/lower urinary tract symptoms - ICD9: 600.01, 599.69, ICD10: N40.1, N13.8 Discussed importance of taking both Proscar and flomax to help with symptoms. If taking flomax on anightly basis, can increase dosage to 2 tablets qhs. 6. Elevated alkaline phosphatase level - ICD9: 790.5, ICD10: R74.8 Recheck labs. If alk phos remains elevated, will obtain US and/or bone scan. - COMPLETE BLOOD COUNT AND DIFFERENTIAL - COMPREHENSIVE METABOLIC PANEL - ALK PHOS ISOENZYM BL - GGT 7. Vertebral artery dissection (HCC) - ICD9: 443.24, ICD10: I77.74 F/u neurosurgery recommendations. 8. Anemia, unspecified type - ICD9: 285.9, ICD10: D64.9 2/2 vertabral artery dissection. Recheck CMP. 9. Alcohol use - ICD9: V49.89, ICD10: Z78.9 Recommend abstaining from alcohol to prevent falls. Kanchan Ge MD [facility] Tele[facility] encounter Note * Telephone Encounter - Akua Partida PSS - 04/26/2024 3:09 PM EST Thank you for the referral of your patient to [facility]. At this time, we are at capacity and are unable to accept your patient. In order to help your patient receive quality home care, we have included reputable agencies that service this area: [facility] (Home Health), Phone number or [facility], phone number . Please contact this agency and they will work with your patient to arrange timely services. Thank you, MARIELA Jacobs 04/26/2024 3:09 PM [facility]11-25-2024 Miscellaneous Notes* Telephone Encounter - Akua Partida PSS - 04/26/2024 3:09 PM EST Thank you for the referral of your patient to [facility]. At this time, we are at capacity and are unable to accept your patient. In order to help your patient receive quality home care, we have included reputable agencies that service this area: [facility] (Home Health), Phone number or [facility], phone number . Please contact this agency and they will work with your patient to arrange timely services. Thank you, MARIELA Jacobs 04/26/2024 3:09 PM documented in [facility] encounterK[facility]11[facility] History of Present illness Narrative* Mando Ling MD - 04/26/2024 2:30 PM EST NEUROSURGERY POST-OP NOTE Mando Ling MD [facility] Date of visit: April 26, 2024 Patient Name: Mr.Michael Randle Date of : 1945 Current Age: [age] year old Sex: male MRN/E# [id number] Last Office Visit: 03/16/2024 SURGERY: C3-C6 PCDF on 01/01/2024 Pre-Surgical Symptoms: fall - central cord syndrome Past Medical/Surgical History: Mr. Randle is a 78 year old male with a past medical history of AAA, DVT (on Eliquis), basal cell carcinoma, benign essential tremor, HTN, BPH, Bruit of right carotid artery, nodule of right lung, venous insufficiency of BLE. No significant surgical history. HPI: Patient is having their 6 week post operative visit. Mr. Randle presented to [facility] ED on 01/01/2024 as a transfer from [facility] via flight team for trauma evaluation after a fall in the bathroom after drinking. His biggest complaint at [facility] was leftsided neck pain and he was found to have C4 fracture with possible vertebral artery injury, which CTA confirmed Vertebral artery dissection. He was then flown from [place] to [facility]. He was on Eliquis for history of DVT, but he stated it had been 2 weeks since he had been taken off that therapy. Neurosurgery was consulted and MRI showed ligamentous injury across C4-C5 with severe canal stenosis, for which he proceeded with the surgery above. His hospital stay was complicated with bilateral arm and hand weakness with intermittent paresthesia. Hemovac drain was removed 01/06/2024. He was advised to continue wearing [place] cervical collar at all times. NIL recommended ASA 81 when able ( POD #7) and to repeat CTA H/N in 8-10 weeks for left vertebral artery dissection. A consult was placed to PM&R and he was discharged to SNF on 01/09/2024. He was seen in the office on 01/22/2024 for their 2 week post operative visit. He felt that surgery went well. He presented in a wheelchair from the facility. He reported compliance with the cervical collar, though he does not like it. He reported minimal neck pain but continued with BUE paresthesiaand weakness, though it had improved. He had been working with physical therapy which had been helping. He denied any new pain, paresthesia, falls. He did have some remaining right hand sutures that were removed at the visit. He was seen in the office on 02/24/2024 for an 8 week post operative visit when he continued with some dexterity issues and continued to use the walker for ambulation. He had not been wearing the cervical collar since 02/08/2024, and was treating his pain with tylenol. He described weakness and statedhis left arm weakness developed after the initial fall and his right arm weakness began after surgical intervention. 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 He was participating in physical therapy at home and felt it was helping. He was advised to continue with PT and to follow up in the office in 1 months time with an MRI cervical spine to evaluate for any residual causes of weakness, prompting his visit today. [facility] contacted the office on 03/17/2024 for concerns of an open spot near the top of his incision that had some drainage. Images of incision reviewed and a script for Keflex was sent to the pharmacy. Patient reports symptoms are the same as his previous visit. He states he continues to have issues with dexterity and gait imbalance. He endorses utilizing a walker for ambulation. He notes continuing weakness to his upper extremities, denies any worsening symptoms. He states he continues with physical therapy. He denies any new falls or bowel and bladder dysfunction. He denies any pain or paresthesia. Incision: Healed Current Outpatient Medications Medication Sig Dispense Refill finasteride (PROSCAR) 5 mg tablet Take 1 tablet by mouth once daily. 90 tablet 1 tamsulosin (FLOMAX) 0.4 mg Take 1 capsule by mouth once daily. 90 capsule 1 melatonin 3 mg tablet Take 3 tablets by mouth daily at bedtime. [id number] 3.5 MG/ML-10,000 UNIT/ML-0.1% EYE DROPS Use 1 Drop in both eyes four times daily. evolocumab (REPATHA SURECLICK) 140 mg/mL pen injector Inject 140 mg subcutaneously every 2 weeks. 6mL 1 acetaminophen (TYLENOL) 325 mg tablet Take 3 tablets by mouth every 6 hours as needed for pain. fluticasone (FLONASE) 50 mcg/actuation nasal spray Use 2 Sprays in each nostril once daily. Rinse mouth after use. 1 Each 2 aspirin, enteric coated (ECOTRIN LOW STRENGTH) 81 mg EC tablet Take 1 tablet by mouth once daily. 0 gabapentin (NEURONTIN) 300 mg capsule Take 1 capsule by mouth three times a day for 30 days. No current facility-administered medications for this visit. Objective Review of Systems Constitutional: Negative for chills, diaphoresis and fever. HENT: Negative for congestion, trouble swallowing and voice change. Eyes: Negative for pain, discharge and visual disturbance. Respiratory: Negative for cough, shortness of breath and wheezing. Cardiovascular: Negative for chest pain, palpitations and leg swelling. Gastrointestinal: Negative for constipation, diarrhea, nausea and vomiting. Endocrine: Negative for cold intolerance, heat intolerance and polyphagia. Genitourinary: Negative for difficulty urinating, frequency and urgency. Musculoskeletal: Negative for back pain and gait problem. Skin: Negative for pallor, rash and wound. Allergic/Immunologic: Negative for environmental allergies, food allergies and immunocompromised state. Neurological: Positive for weakness. Negative for dizziness and numbness. Hematological: Does not bruise/bleed easily. Psychiatric/Behavioral: Negative for agitation and confusion. The patient is not nervous/anxious. PHYSICAL EXAM: Mental State : Alert, memory function unremarkable. Attention span and concentration normal for patient's age. Speech normal, no receptive or expressive speech deficit. Recent and remote memory normal. Orientation : Oriented to person, place and time. Cranial Nerves : Grossly intact. Sensory: Normal Sensation in upper and lower extremities and trunk to touch and noxious stimuli. Motor: Normal muscle tone and bulk. No tremor or uncontrollable movements. No spasticity or tremor. Gait and Station: in wheelchair, can walk with assistance with a walker STRENGTH: Upper Extremity Strength Exam Right Left Elbow Flexion 4/5 4/5 Elbow Extension 4/5 4/5 Finger Flexion 4+/5 4+/5 Finger Extension 4+/5 4+/5 Finger Abduction 4+/5 4+/5 Lower Extremity Strength Exam Right Left Hip Flexion 4+/5 4+/5 Knee Flexion 5/5 5/5 Knee Extension 5/5 5/5 Dorsiflexion 5/5 5/5 Plantarflexion 5/5 5/5 WOUND ASSESSMENT: Healing well PAIN EVALUATION 04/26/2024 1353 Pain Level: 4 Pain Location: Back Description: Aching Duration Amount of Time: 3 Duration Units: Months Frequency: Continuous Data Review: IMAGING STUDIES: MRI cervical 04/26/2024: postop changes, no residual central canal stenosis Assessment & Plan: Mr. 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 He has bilateral C5 palsy. At her lastvisit, he had some weakness in his biceps and triceps as well, but this is improving. He is not really able to lift his shoulders up at all. He is working with physical therapy, but feels that home health PT visits were quite helpful for him. He had an MRI today which shows no residual stenosis. I explained that he likely has C5 palsy, and the only treatment is time and therapy. I will order an EMG study of his upper extremities to see if we can diagnosis electrically. I will also order x-rays of the shoulders bilaterally to assess for any intrinsic pathology. I will follow- up with him over the phone once his EMG study is complete. Otherwise, I encouraged him to continue therapy and work onstrengthening his muscles. I will see him back in 3 months with AP and lateral x-rays. All questions were answered. Attribution: The following portions of the patient's history were reviewed, confirmed, and updated as necessary:allergies, current medications, past family history, past medical history, past social history, past surgical history, problem list, HPI, and ROS obtained by others. Some elements may be copied from a previous office note and have been reviewed/updated where appropriate. All portions reflect current medical decision making from today. The clinical and radiographic findings as well as the risks, benefits and alternatives of treatmenthave been reviewed in detail with the patient. Advised to call the office if symptoms worsen or new symptoms develop. Patient expressed understanding and is in agreement with plan. Mando Ling MD [facility] This note was partially generated using [employer] voice recognition system, and there may be some incorrect words, spellings, and punctuation that were not noted in checking the note before saving. documented in this encounterKettering [facility]11-25-2024 NoteHNO ID: [id number] Author: MANDO LING MD Service: ? Author Type: Physician Type: Progress Notes Filed: 04/26/2024 15:05 Note Text: NEUROSURGERY POST-OP NOTE Mando Ling MD [facility] Date of visit: April 26, 2024 Patient Name: Mr.Michael Randle Date of : 1945 Current Age: [age] year old Sex: male MRN/E# [id number] Last Office Visit: 03/16/2024 SURGERY: C3-C6 PCDF on 01/01/2024 Pre-Surgical Symptoms: fall - central cord syndrome Past Medical/Surgical History: Mr. Randle is a 78 year old male with a past medical history of AAA, DVT (on Eliquis), basal cell carcinoma, benign essential tremor, HTN, BPH, Bruit of right carotid artery, nodule of right lung, venous insufficiency of BLE. No significant surgical history. HPI: Patient is having their 6 week post operative visit. Mr. Randle presented to [facility] ED on 01/01/2024 as a transfer from [facility] via flight team for trauma evaluation after a fall in the bathroom after drinking. His biggest complaint at [facility] was left sided neck pain and he was found to have C4 fracture with possible vertebral artery injury, which CTA confirmed Vertebral artery dissection. He was then flown from [place] to [facility]. He was on Eliquis for history of DVT, but he stated it had been 2 weeks since he had been taken off that therapy. Neurosurgery was consulted and MRI showed ligamentous injury across C4-C5 with severe canal stenosis, for which he proceeded with the surgery above. His hospital stay was complicated with bilateral arm and hand weakness with intermittent paresthesia. Hemovac drain was removed 01/06/2024. He was advised to continue wearing [place] cervical collar at all times. NIL recommended ASA 81 when able ( POD #7) and to repeat CTA H/N in 8-10 weeks for left vertebral artery dissection. [facility] and [facility] to SNF on [facility]/09/2024. He was seen in the office on 01/22/2024 for their 2 week post operative visit. He felt that surgery went well. He presented in a wheelchair from the facility. He reported compliance with the cervical collar, though he does not like it. He reported minimal neck pain but continued with BUE paresthesia and weakness, though it had improved. He had been working with physical therapy which had been helping. He denied any new pain, paresthesia, falls. He did have some remaining right hand sutures that were removed at the visit. He was seen in the office on 02/24/2024 for an 8 week post operative visit when he continued with some dexterity issues and continued to use the walker for ambulation. He had not been wearing the cervical collar since 02/08/2024, and was treating his pain with tylenol. He described weakness and stated his left arm weakness developed after the initial fall and his right arm weakness began after surgical intervention. 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 He was participating in physical therapy at home and felt it was helping. He was advised to continue with PT and to follow up in the office in 1 months time with an MRI cervical spine to evaluate for any residual causes of weakness, prompting his visit today. [facility] contacted the office on 03/17/2024 for concerns of an open spot near the top of his incision that had some drainage. Images of incision reviewed and a script for Keflex was sent to the pharmacy. Patient reports symptoms are the same as his previous visit. He states he continues to have issues with dexterity and gait imbalance. He endorses utilizing a walker for ambulation. He notes continuing weakness to his upper extremities, denies any worsening symptoms. He states he continues with physical therapy. He denies any new falls or bowel and bladder dysfunction. He denies any pain or paresthesia. Incision: Healed Current Outpatient Medications Medication Sig Dispense Refill finasteride (PROSCAR) 5 mg tablet Take 1 tablet by mouth once daily. 90 tablet 1 tamsulosin (FLOMAX) 0.4 mg Take 1 capsule by mouth once daily. 90 capsule 1 melatonin 3 mg tablet Take 3 tablets by mouth daily at bedtime. [id number]-QWCMLNRXO-UECQISQD 3.5 MG/ML-10,000 UNIT/ML-0.1% EYE DROPS Use 1 Drop in both eyes four times daily. evolocumab (REPATHA SURECLICK) 140 mg/mL pen injector Inject 140 mg subcutaneously every 2 weeks. 6 mL 1 acetaminophen (TYLENOL) 325 mg tablet Take 3 tablets by mouth every 6 hours as needed for pain. fluticasone (FLONASE) 50 mcg/actuation nasal spray Use 2 Sprays in each nostril once daily. Rinse mouth after use. 1 Each 2 aspirin, enteric coated (ECOTRIN LOW STRENGTH) 81 mg EC tablet Take 1 tablet by mouth once daily. 0 gabapentin (NEURONTIN) 300 mg capsule Take 1 capsule by mouth three times a day for 30 days. No current facility-administered medications for this visit. Objective Review of Systems Constitutional: Negative for chills, diaphoresis and fever. (more content not included)...[facility]11-25-2024 History of Present illness Narrative* Denis Ortega RT(R) - 04/26/2024 1:15 PM EST Radiology Service Progress Note PATIENT NAME: Vicki Randle DATE OF SERVICE: April 26, 2024 TIME: 1:11 PM PATIENT IDENTITY VERIFICATION COMPLETED USING TWO (2) IDENTIFIERS: Name and Date of confirmedby patient verbally. FALL SCREENING: Has the patient had 2 falls in the last year or 1 fall with injury or currently using an Ambulatory Assistive Device (Walker, Cane, Wheelchair, Crutches, etc.)? Yes, Patient High Riskfor Falls What interventions were put in place to prevent falls during this visit? Instructed Patient to Callfor Help if Needed, Offered Assistance with Transfers/Clothing, Instructed Patient to Remain Seated(Not on Exam Table) Until Exam, and Increased Observations by Caregivers PATIENT GENDER DATA: Male PATIENT RELEVANT IMPLANT DATA REVIEWED: Yes PATIENT PRESENTS WITH AN IMPLANTABLE OR ATTACHED AGRICULTURE SPECIALIST: No RADIOLOGY DEPARTMENT: MR; Exam(s) Completed: Spine: Cervical spine PERIPHERAL IV DATA: Not applicable SIGNED BY: RT Tk(Johan) April 26, 2024 1:11 PM documented in this encounterKettering [facility]11-25-2024 NoteHNO ID: [id number] Author: DENIS ORTEGA RT(R) Service: Radiology Author Type: Technologist Type: Progress Notes Filed: 04/26/2024 13:12 Note Text: Radiology Service Progress Note PATIENT NAME: Vicki Randle DATE OF SERVICE: April 26, 2024 TIME: 1:11 PM PATIENT IDENTITY VERIFICATION COMPLETED USING TWO (2) IDENTIFIERS: Name and Date of confirmed by patient verbally. FALL SCREENING: Has the patient had 2 falls in the last year or 1 fall with injury or currently using an Ambulatory Assistive Device (Walker, Cane, Wheelchair, Crutches, etc.)? Yes, Patient High Risk for Falls What interventions were put in place to prevent falls during this visit? Instructed Patient to Call for Help if Needed, Offered Assistance with Transfers/Clothing, Instructed Patient to Remain Seated (Not on Exam Table) Until Exam, and Increased Observations by Caregivers PATIENT GENDER DATA: Male PATIENT RELEVANT IMPLANT DATA REVIEWED: Yes PATIENT PRESENTS WITH AN IMPLANTABLE OR ATTACHED AGRICULTURE SPECIALIST: No RADIOLOGY DEPARTMENT: MR; Exam(s) Completed: Spine: Cervical spine PERIPHERAL IV DATA: Not applicable SIGNED BY: RT Tk(R) April 26, 2024 1:11 [facility]11-08-2024 NoteHNO ID: [id number] Author: SUSANA PEREZ RN Service: ? Author Type: Registered Nurse Type: Progress Notes Filed: 04/09/2024 10:43 Note Text: Post Acute Care Outreach Third call Spoke to Vicki today -He feels he is doing well -Walking with his walker, HHC has been completed -Does not feel the need for outpatient therapy at this time, -Sees neuro and PCP this month, he was aware. -No med refills -No other issues or concerns -Will complete from PAC today. This will be my last call, going forward please reach out to your providers with any questions or concerns regarding your health Reason for Call: Post Acute Outreach Contact made with patient: Yes Patient identified by name and date of . Discussed care with patient Updates since last outreach: See above Medication needs: NA Social Work/Behavioral Needs: NA Are you experiencing any new or worsening symptoms you need to talk about today? 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 Susana Perez RN April 09, 2024 10:42 [facility]11-08-2024 History of Present illness Narrative* Susana Perez RN - 04/09/2024 10:25 AM EST Post Acute Care Outreach Third call Spoke to Vicki today -He feels he is doing well -Walking with his walker, HHC has been completed -Does not feel the need for outpatient therapy at this time, -Sees neuro and PCP this month, he was aware. -No med refills -No other issues or concerns -Will complete from PAC today. This will be my last call, going forward please reach out to your providers with any questions or concerns regarding your health Reason for Call: Post Acute Outreach Contact made with patient: Yes Patient identified by name and date of . Discussed care with patient Updates since last outreach: See above Medication needs: NA Social Work/Behavioral Needs: NA Are you experiencing any new or worsening symptoms you need to talk about today? 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 Susana Perez RN April 09, 2024 10:42 AM documented in this encounterKettering [facility]11-08-2024 NotePatient Outreach ([facility]) VICKI RANDLE ([id number]) 1945 M Date Time Provider Department 04/09/24 SUSANA PEREZ During your visit today, we recorded the following information about you: Susana Perez RN 04/09/2024 10:43 AM Signed Post Acute Care Outreach Third call Spoke to Vicki today -He feels he is doing well -Walking with his walker, HHC has been completed -Does not feel the need for outpatient therapy at this time, -Sees neuro and PCP this month, he was aware. -No med refills -No other issues or concerns -Will complete from PAC today. This will be my last call, going forward please reach out to your providers with any questions or concerns regarding your health Reason for Call: Post Acute Outreach Contact made with patient: Yes Patient identified by name and date of . Discussed care with patient Updates since last outreach: See above Medication needs: NA Social Work/Behavioral Needs: NA Are you experiencing any new or worsening symptoms you need to talk about today? 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 Susana Perez RN April 09, 2024 10:42 AM Allergies As of Date: 04/09/2024 Noted Allergy Reaction LIPITOR (ATORVASTATIN CALCIUM) 03/11/2005 5 - Intolerance ROSUVASTATIN CALCIUM 03/02/2017 5 - Intolerance [id number] REDUCTASE INHIBIT*01/10/2018 17 - Myalgia Date Reviewed: 02/26/2024 Reviewed by: Laura Hills LPN - Fully Assessed Reason for Visit: Post-Acute Transition [3811] Cmt: [facility] Third Outreach Prescriptions as of 04/09/2024 - finasteride (PROSCAR) 5 mg tablet Take 1 tablet by mouth once daily. - tamsulosin (FLOMAX) 0.4 mg Take 1 capsule by mouth once daily. - gabapentin (NEURONTIN) 300 mg capsule Take 1 capsule by mouth three times a day for 30 days. - melatonin 3 mg tablet Take 3 tablets by mouth daily at bedtime. - AASHCLJR-JTJXFOXEV-WKBBUBAN 3.5 MG/ML-10,000 UNIT/ML-0.1% EYE DROPS Use 1 Drop in both eyes four times daily. - evolocumab (REPATHA SURECLICK) 140 mg/mL pen injector Inject 140 mg subcutaneously every 2 weeks. - acetaminophen (TYLENOL) 325 mg tablet Take 3 tablets by mouth every 6 hours as needed for pain. - fluticasone (FLONASE) 50 mcg/actuation nasal spray Use 2 Sprays in each nostril once daily. Rinse mouth after use. - aspirin, enteric coated (ECOTRIN LOW STRENGTH) 81 mg EC tablet Take 1 tablet by mouth once daily. Facility-Administered Medications as of 04/09/2024 - perflutren lipid microspheres 1.3 mL in NaCl (PF) 0.9% 10 mL injection (DEFINITY) - sodium chloride 0.9 % (flush) 10 mL (BD POSIFLUSH) Problem List As Of Date 04/09/2024 Noted Resolved Hyperlipidemia with target LDL less than 100 [E*01/30/2005 ESOPHAGEAL REFLUX [K21.9] PERS HX SKIN MALIGNANCY NEC [Z85.828] 05/10/2006 Cellulitis and abscess of trunk [L03.319, L02.2*02/05/2007 04/13/2014 BPH with obstruction/lower urinary tract sympto*11/26/2007 Bladder neck obstruction [N32.0] 11/26/2007 12/02/2018 Prostatitis [N41.9] 01/08/2012 04/13/2014 AAA (abdominal aortic aneurysm) (HCC) [I71.40] 02/06/2012 Nodule of right lung [R91.1] 04/17/2012 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] 06/27/2014 Venous insufficiency of both lower extremities *07/01/2014 Benign hypertension [I10] 07/13/2015 Episodic paroxysmal hemicrania, 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/2015 Situational depression [F43.21] 07/03/2016 Pulmonary emphysema (HCC) [J43.9] 12/31/2016 Closed fracture of one rib of left side [S22.32*03/12/2017 07/12/2017 Basal cell carcinoma (BCC) of postauricular reg*01/09/2018 Actinic keratosis [L57.0] 01/09/2018 Acute deep vein thrombosis (DVT) of femoral vei*03/16/2018 12/02/2018 Chronic anticoagulation [Z79.01] 03/16/2018 Pleural effusion [J90] 06/17/2018 History of DVT of lower extremity [Z86.718] 12/02/2018 Intention tremor [G25.2] 12/20/2019 Arthritis of left sternoclavicular joint [M19.0*04/20/2020 Chewing tobacco use [Z72.0] Traumatic pneumothorax [S27.0XXA] 07/16/2021 07/18/2021 Fall from ground level [W18.30XA] 07/16/2021 Closed fracture of one rib of right side with r*07/16/2021 Contusion of right lung [S27.321A] 07/16/2021 At high risk for falls [Z91.81] 07/04/2022 Obesity, Class I, BMI 30-34.9 [E66.811] 10/01/2022 Nicotine use disorder, F17.2 [F17.200] 04/05/2023 Trauma [T14.90XA] 01/01/2024 Fall [W19.XXXA] 01/01/2024 Closed nondisplaced fracture of fourth cervical*01/01/2024 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] 01/01/2024 Spinal cord injury at C1-C4 level (HCC) [S14.10*01/01/2024 Alcohol abuse [F10.10] 01/01/2024 Hypokalemia [E87.6] 01/01/2024 Acute respiratory failure following trauma and *08/ (more content not included)...[facility]10-25-2024 NoteHNO ID: [id number] Author: SUSANA PEREZ RN Service: ? Author Type: Registered Nurse Type: Progress Notes Filed: 03/26/2024 11:54 Note Text: Post Acute Care Outreach Second call Spoke to both Alex and Vicki today -Alex was traveling back to [place] from [place] -Had to cancel his follow up neurosurgery appt due to no ride since Alex was on vacation. It has been rescheduled for next month -Vicki states he is doing pretty good. He is walking better and trying to use his arm more. -[facility] therapy has one more visit, wishes this can continue. -Can discuss outpt therapy and transportation via insurance next call with Alex. -States his incision is healed and he has completed his po atb. -Will follow up in a few weeks. Reason for Call: Post Acute Outreach Contact made with patient: Yes Patient identified by name and date of . Discussed care with patient and son Updates since last outreach: see above Medication needs: NA Social Work/Behavioral Needs: transportation issues? Will discuss next call Are you experiencing any new or worsening symptoms you need to talk about today? No Based on hardboard coating machine operator, the following disposition is advised: Other Call Dispositions No action needed Program Disposition Patient dispositioned from Program today: No Susana Perez RN March 26, 2024 11:54 [facility]10-25-2024 History of Present illness Narrative* Susana Perez RN - 03/26/2024 11:42 AM EDT Post Acute Care Outreach Second call Spoke to both Alex and Vicki today -Alex was traveling back to [place] from [place] -Had to cancel his follow up neurosurgery appt due to no ride since Alex was on vacation. It has been rescheduled for next month -Vicki states he is doing pretty good. He is walking better and trying to use his arm more. -[facility] therapy has one more visit, wishes this can continue. -Can discuss outpt therapy and transportation via insurance next call with Alex. -States his incision is healed and he has completed his po atb. -Will follow up in a few weeks. Reason for Call: Post Acute Outreach Contact made with patient: Yes Patient identified by name and date of . Discussed care with patient and son Updates since last outreach: see above Medication needs: NA Social Work/Behavioral Needs: transportation issues? Will discuss next call Are you experiencing any new or worsening symptoms you need to talk about today? No Based on hardboard coating machine operator, the following disposition is advised: Other Call Dispositions No action needed Program Disposition Patient dispositioned from Program today: No Susana Perez RN March 26, 2024 11:54 AM documented in this encounterKet[facility]10-25-2024 NotePatient Outreach ([facility]) VICKI RANDLE ([id number]) 1945 M Date Time Provider Department 03/26/24 SUSANA PEREZ [facility] During your visit today, we recorded the following information about you: Susana Perez RN 03/26/2024 11:54 AM Signed Post Acute Care Outreach Second call Spoke to both Alex and Vicki today -Alex was traveling back to [place] from [place] -Had to cancel his follow up neurosurgery appt due to no ride since Alex was on vacation. It has been rescheduled for next month -Vicki states he is doing pretty good. He is walking better and trying to use his arm more. -[facility] therapy has one more visit, wishes this can continue. -Can discuss outpt therapy and transportation via insurance next call with Alex. -States his incision is healed and he has completed his po atb. -Will follow up in a few weeks. Reason for Call: Post Acute Outreach Contact made with patient: Yes Patient identified by name and date of . Discussed care with patient and son Updates since last outreach: see above Medication needs: NA Social Work/Behavioral Needs: transportation issues? Will discuss next call Are you experiencing any new or worsening symptoms you need to talk about today? No Based on hardboard coating machine operator, the following disposition is advised: Other Call Dispositions No action needed Program Disposition Patient dispositioned from Program today: No Susana Perez RN March 26, 2024 11:54 AM Allergies As of Date: 03/26/2024 Noted Allergy Reaction LIPITOR (ATORVASTATIN CALCIUM) 03/11/2005 5 - Intolerance ROSUVASTATIN CALCIUM 03/02/2017 5 - Intolerance GJNKCLZ-IGH-[id number] REDUCTASE INHIBIT*01/10/2018 17 - Myalgia Date Reviewed: 02/26/2024 Reviewed by: Laura Hills LPN - Fully Assessed Reason for Visit: Post-Acute Transition [3811] Cmt: PAC Second Outreach Prescriptions as of 03/26/2024 - finasteride (PROSCAR) 5 mg tablet Take 1 tablet by mouth once daily. - tamsulosin (FLOMAX) 0.4 mg Take 1 capsule by mouth once daily. - gabapentin (NEURONTIN) 300 mg capsule Take 1 capsule by mouth three times a day for 30 days. - melatonin 3 mg tablet Take 3 tablets by mouth daily at bedtime. - KAGQKMMK-OFJZWORFV-OMSSUZIS 3.5 MG/ML-10,000 UNIT/ML-0.1% EYE DROPS Use 1 Drop in both eyes four times daily. - evolocumab (REPATHA SURECLICK) 140 mg/mL pen injector Inject 140 mg subcutaneously every 2 weeks. - acetaminophen (TYLENOL) 325 mg tablet Take 3 tablets by mouth every 6 hours as needed for pain. - fluticasone (FLONASE) 50 mcg/actuation nasal spray Use 2 Sprays in each nostril once daily. Rinse mouth after use. - aspirin, enteric coated (ECOTRIN LOW STRENGTH) 81 mg EC tablet Take 1 tablet by mouth once daily. Facility-Administered Medications as of 03/26/2024 - perflutren lipid microspheres 1.3 mL in NaCl (PF) 0.9% 10 mL injection (DEFINITY) - sodium chloride 0.9 % (flush) 10 mL (BD POSIFLUSH) Problem List As Of Date 03/26/2024 Noted Resolved Hyperlipidemia with target LDL less than 100 [E*01/30/2005 ESOPHAGEAL REFLUX [K21.9] PERS HX SKIN MALIGNANCY NEC [Z85.828] 05/10/2006 Cellulitis and abscess of trunk [L03.319, L02.2*02/05/2007 04/13/2014 BPH with obstruction/lower urinary tract sympto*11/26/2007 Bladder neck obstruction [N32.0] 11/26/2007 12/02/2018 Prostatitis [N41.9] 01/08/2012 04/13/2014 AAA (abdominal aortic aneurysm) (HCC) [I71.40] 02/06/2012 Nodule of right lung [R91.1] 04/17/2012 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] 06/27/2014 Venous insufficiency of both lower extremities *07/01/2014 Benign hypertension [I10] 07/13/2015 Episodic paroxysmal hemicrania, 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/2015 Situational depression [F43.21] 07/03/2016 Pulmonary emphysema (HCC) [J43.9] 12/31/2016 Closed fracture of one rib of left side [S22.32*03/12/2017 07/12/2017 Basal cell carcinoma (BCC) of postauricular reg*01/09/2018 Actinic keratosis [L57.0] 01/09/2018 Acute deep vein thrombosis (DVT) of femoral vei*03/16/2018 12/02/2018 Chronic anticoagulation [Z79.01] 03/16/2018 Pleural effusion [J90] 06/17/2018 History of DVT of lower extremity [Z86.718] 12/02/2018 Intention tremor [G25.2] 12/20/2019 Arthritis of left sternoclavicular joint [M19.0*04/20/2020 Chewing tobacco use [Z72.0] Traumatic pneumothorax [S27.0XXA] 07/16/2021 07/18/2021 Fall from ground level [W18.30XA] 07/16/2021 Closed fracture of one rib of right side with r*07/16/2021 Contusion of right lung [S27.321A] 07/16/2021 At high risk for falls [Z91.81] 07/04/2022 Obesity, Class I, BMI 30-34.9 [E66.811] 10/01/2022 Nicotine use disorder, F17.2 [F17.200] 04/05/2023 Trauma [T14.90XA] 01/01/2024 Fall [W19.XXXA] 01/01/2024 Closed nondisplaced fracture of fourth cervical*01/01/2024 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] 01/01/2024 Spinal cord injury at C1-C4 level (HCC) [S14.10*01/01/2024 Alcohol ab (more content not included)...[facility]10-23-2024 Telephone encounter Note* Telephone Encounter - Nati Bojorquez RN - 03/24/2024 3:01 PM EDT The patient has been identified by name and date of : Yes Caregiver verified no other encounters exist for this prescription request: Yes Caregiver confirmed with patient/requestor that no other refills are due, in the near future, with this provider at this time: Yes The last office visit in the department: 02/26/2024 Does the patient have a future office visit with this provider/department: Yes 04/27/2024 Requested Prescriptions Pending Prescriptions Disp Refills finasteride (PROSCAR) 5 mg tablet 90 tablet 3 Sig: Take 1 tablet by mouth once daily. tamsulosin (FLOMAX) 0.4 mg 90 capsule 3 Sig: Take 1 capsule by mouth once daily. Nati Bojorquez RN March 24, 2024 3:04 PM [facility]10-23-2024 Miscellaneous Notes* Telephone Encounter - Nati Bojorquez RN - 03/24/2024 3:01 PM EDT The patient has been identified by name and date of : Yes Caregiver verified no other encounters exist for this prescription request: Yes Caregiver confirmed with patient/requestor that no other refills are due, in the near future, with this provider at this time: Yes The last office visit in the department: 02/26/2024 Does the patient have a future office visit with this provider/department: Yes 04/27/2024 Requested Prescriptions Pending Prescriptions Disp Refills finasteride (PROSCAR) 5 mg tablet 90 tablet 3 Sig: Take 1 tablet by mouth once daily. tamsulosin (FLOMAX) 0.4 mg 90 capsule 3 Sig: Take 1 capsule by mouth once daily. Nati Bojorquez RN March 24, 2024 3:04 PM documented in this encounterKettering [facility]10-17-2024 NoteHNO ID: [id number] Author: SUSANA PEREZ RN Service: ? Author Type: Registered Nurse Type: Progress Notes Filed: 03/18/2024 12:38 Note Text: Post Acute Care Outreach First call Spoke to Alex ( son ) who has permission to discuss his fathers health concerns. -States his father is doing well -He is moving his arms much more, especially the right arm -Working with therapy with [facility] -Walking with his walker -Did have a small area on his incision open up and ooze some, RX Keflex which he has been taking for 2 days now. -Denies fever or pain -Has a follow up appt next week, will follow up with patient after that. Reason for Call: Post Acute Outreach Contact made with patient: Yes Patient identified by name and date of . Discussed care with son Updates since last outreach: Taking PO Keflex for possible incision infection Medication needs: NA Social Work/Behavioral Needs: NA Are you experiencing any new or worsening symptoms you need to talk about today? No Based on hardboard coating machine operator, the following disposition is advised: Other Call Dispositions No action needed Program Disposition Patient dispositioned from Program today: No Susana Perez RN March 18, 2024 12:37 [facility]10-17-2024 History of Present illness Narrative* Susana Perez RN - 03/18/2024 12:27 PM EDT Post Acute Care Outreach First call Spoke to Alex ( son ) who has permission to discuss his fathers health concerns. -States his father is doing well -He is moving his arms much more, especially the right arm -Working with therapy with [facility] -Walking with his walker -Did have a small area on his incision open up and ooze some, RX Keflex which he has been takingfor 2 days now. -Denies fever or pain -Has a follow up appt next week, will follow up with patient after that. Reason for Call: Post Acute Outreach Contact made with patient: Yes Patient identified by name and date of . Discussed care with son Updates since last outreach: Taking PO Keflex for possible incision infection Medication needs: NA Social Work/Behavioral Needs: NA Are you experiencing any new or worsening symptoms you need to talk about today? No Based on hardboard coating machine operator, the following disposition is advised: Other Call Dispositions No action needed Program Disposition Patient dispositioned from Program today: No Susana Perez RN March 18, 2024 12:37 PM documented in this encounterKettering [facility] Hospital10-17-2024 NotePatient Outreach ([facility]) VICKI RANDLE ([id number]) 1945 M Date Time Provider Department 03/18/24 SUSANA PEREZG During your visit today, we recorded the following information about you: Susana Perez RN 03/18/2024 12:38 PM Signed Post Acute Care Outreach First call Spoke to Alex ( son ) who has permission to discuss his fathers health concerns. -States his father is doing well -He is moving his arms much more, especially the right arm -Working with therapy with [facility] -Walking with his walker -Did have a small area on his incision open up and ooze some, RX Keflex which he has been taking for 2 days now. -Denies fever or pain -Has a follow up appt next week, will follow up with patient after that. Reason for Call: Post Acute Outreach Contact made with patient: Yes Patient identified by name and date of . Discussed care with son Updates since last outreach: Taking PO Keflex for possible incision infection Medication needs: NA Social Work/Behavioral Needs: NA Are you experiencing any new or worsening symptoms you need to talk about today? No Based on hardboard coating machine operator, the following disposition is advised: Other Call Dispositions No action needed Program Disposition Patient dispositioned from Program today: No Susana Perez RN March 18, 2024 12:37 PM Allergies As of Date: 03/18/2024 Noted Allergy Reaction LIPITOR (ATORVASTATIN CALCIUM) 03/11/2005 5 - Intolerance ROSUVASTATIN CALCIUM 03/02/2017 5 - Intolerance [id number] REDUCTASE INHIBIT*01/10/2018 17 - Myalgia Date Reviewed: 02/26/2024 Reviewed by: Laura Hills LPN - Fully Assessed Reason for Visit: Post-Acute Transition [3811] Cmt: PAC First Outreach Prescriptions as of 03/18/2024 - cephALEXin (KEFLEX) 500 mg capsule Take 1 capsule by mouth two times a day for 7 days. - gabapentin (NEURONTIN) 300 mg capsule Take 1 capsule by mouth three times a day for 30 days. - melatonin 3 mg tablet Take 3 tablets by mouth daily at bedtime. - QVAWMONQ-ASUMVQCWL-RLLEQEAK 3.5 MG/ML-10,000 UNIT/ML-0.1% EYE DROPS Use 1 Drop in both eyes four times daily. - evolocumab (REPATHA SURECLICK) 140 mg/mL pen injector Inject 140 mg subcutaneously every 2 weeks. - acetaminophen (TYLENOL) 325 mg tablet Take 3 tablets by mouth every 6 hours as needed for pain. - fluticasone (FLONASE) 50 mcg/actuation nasal spray Use 2 Sprays in each nostril once daily. Rinse mouth after use. - aspirin, enteric coated (ECOTRIN LOW STRENGTH) 81 mg EC tablet Take 1 tablet by mouth once daily. Facility-Administered Medications as of 03/18/2024 - perflutren lipid microspheres 1.3 mL in NaCl (PF) 0.9% 10 mL injection (DEFINITY) - sodium chloride 0.9 % (flush) 10 mL (BD POSIFLUSH) Problem List As Of Date 03/18/2024 Noted Resolved Hyperlipidemia with target LDL less than 100 [E*01/30/2005 ESOPHAGEAL REFLUX [K21.9] PERS HX SKIN MALIGNANCY NEC [Z85.828] 05/10/2006 Cellulitis and abscess of trunk [L03.319, L02.2*02/05/2007 04/13/2014 BPH with obstruction/lower urinary tract sympto*11/26/2007 Bladder neck obstruction [N32.0] 11/26/2007 12/02/2018 Prostatitis [N41.9] 01/08/2012 04/13/2014 AAA (abdominal aortic aneurysm) (HCC) [I71.40] 02/06/2012 Nodule of right lung [R91.1] 04/17/2012 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] 06/27/2014 Venous insufficiency of both lower extremities *07/01/2014 Benign hypertension [I10] 07/13/2015 Episodic paroxysmal hemicrania, 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/2015 Situational depression [F43.21] 07/03/2016 Pulmonary emphysema (HCC) [J43.9] 12/31/2016 Closed fracture of one rib of left side [S22.32*03/12/2017 07/12/2017 Basal cell carcinoma (BCC) of postauricular reg*01/09/2018 Actinic keratosis [L57.0] 01/09/2018 Acute deep vein thrombosis (DVT) of femoral vei*03/16/2018 12/02/2018 Chronic anticoagulation [Z79.01] 03/16/2018 Pleural effusion [J90] 06/17/2018 History of DVT of lower extremity [Z86.718] 12/02/2018 Intention tremor [G25.2] 12/20/2019 Arthritis of left sternoclavicular joint [M19.0*04/20/2020 Chewing tobacco use [Z72.0] Traumatic pneumothorax [S27.0XXA] 07/16/2021 07/18/2021 Fall from ground level [W18.30XA] 07/16/2021 Closed fracture of one rib of right side with r*07/16/2021 Contusion of right lung [S27.321A] 07/16/2021 At high risk for falls [Z91.81] 07/04/2022 Obesity, Class I, BMI 30-34.9 [E66.811] 10/01/2022 Nicotine use disorder, F17.2 [F17.200] 04/05/2023 Trauma [T14.90XA] 01/01/2024 Fall [W19.XXXA] 01/01/2024 Closed nondisplaced fracture of fourth cervical*01/01/2024 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 Image of incision received and reviewed by Dr. Ling who recommended Keflex 500 mg BID for 7 days. Reviewed this with patient who voiced understanding of medication uses and side effects. Pharmacy verified. Kelley Brown RN [facility]10-15-2024 Miscellaneous Notes* Telephone Encounter - Kelley Brown RN - 03/16/2024 2:09 PM EDT [facility] called describinhg goopy drainage from top of incision for 2 weeks. Image of incision received and reviewed by Dr. Ling who recommended Keflex 500 mg BID for 7 days. Reviewed this with patient who voiced understanding of medication uses and side effects. Pharmacy verified. Kelley Brown RN documented in this encounterKettering [facility] Hospital10-15-2024 NoteHNO ID: [id number] Author: KELLEY BROWN RN Service: ? Author Type: Registered Nurse Type: Progress Notes Filed: 03/16/2024 14:03 Note Text: [facility]10-15-2024 History of Present illness Narrative * Kelley Brown RN - 03/16/2024 2:00 PM EDT error documented in this encounterKettering [facility] Hospital10-15-2024 Telephone encounter Note * Telephone Encounter - Porter Sumner RN - 03/16/2024 1:22 PM EDT nurse Katelynn from [facility] [phone] called to inform us that 2 weeks ago, they noticed patient developed an open area to the top aspect of his incision. Noted he may have scratched it open last week. Noted it was seeping, goopy and brown in color. Denied any redness or fevers. Stated they have been applying a band aid to it and the son was applying neosporin to it. Requesting imaging, but noted she was unable to. Called and spoke with the patient son who emailed a picture to a HIPAA complaint secure email and forwarded to Dr. Ling. KHRIS Benson primary nurse was going to place orders and notify [facility] nurse. Porter Sumner RN [facility]10-15-2024 Miscellaneous Notes* Telephone Encounter - Porter Sumner RN - 03/16/2024 1:22 PM EDT nurse Katelynn from [facility] [phone] called to inform us that 2 weeks ago, they noticed patient developed an open area to the top aspect of his incision. Noted he may have scratched it open last week. Noted it was seeping, goopy and brown in color. Denied any redness or fevers. Stated they have been applying a band aid to it and the son was applying neosporin to it. Requesting imaging, but noted she was unable to. Called and spoke with the patient son who emailed a picture to a HIPAA complaint secure email and forwarded to Dr. Ling. KHRIS Benson primary nurse was going to place orders and notify [facility] nurse. Porter Sumner RN documented in this encounterKettering Memorial Hospital10-10-2024 History of Present illness Narrative* Susana Perez RN - 03/11/2024 4:09 PM EDT Post Acute Care Outreach Hospital admitting diagnosis: 1.C4 fractures (left lamina, left transverse process, left pedicle, and spinous process) 2. Acute spinal cord injury/contusion at the C4-C5 level 3.Cervical spine ligamentous injury 4. Left vertebral artery dissection 8.1.24 - Posterior segmental instrumentation and posterior lateral fusion C3-C6; ORIF of C4 fracture; C3-C6 laminectomy; Use of locally harvested morselized bone autograft and bone allograft SNF discharge date: 02-14-24 From [facility] Chronic conditions: GERD, BPH, emphysema, hx of DVT, falls, smoker, ETOH abuse, obesity. Potential community living barriers/concerns/notes: Lives at home alone, IADLs, driving now? 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 Cannot use his right arm but can bend andflex his fingers, has clerk secretary strength. Reason for Call: Chart Review Susana Perez RN documented in this encounterKettering Memorial Hospital10-10-2024 History of Present illness Narrative* Kailyn Arias MA - 03/11/2024 10:05 AM EDT [facility]P FACILITY (SNF) TRANSITIONAL CARE MANAGEMENT (TCM) POST-ACUTE CARE (PAC) PROGRAM Transitions Navigator Outreach Provider Action/FYI: SNF TCM PAC Program completion DC: 02/14/24 [facility]urs[facility]: [facility] Family contact: Alex Randle (Son) [phone] Reason for Hospitalization: Pt presented with fall, Dx- C4 fracture and a vertebral artery dissection Spoke to patient -doing good, no new concerns doing well with everything -home care had last PT Friday03/08/24; would like more and [facility] advised him to reach out to PCP for a new order. Send message to PCP to see if he is willing to place new order ([facility] ) fax # [phone] (therapy said he could benefit from more home therapy) -using walker/wheelchair out of home -no medication changes/needs -denied need for PCSW assistance No further needs or concerns, agreeable to HR PCC outreach (will have office handle new [facility] orders but can I can fax them if need be and approved) -routed- TYPE OF OUTREACH: PAC TCM Program Completion PATIENT OUTREACH Contact made with patient: Yes Vaughn Vicki this is Kailyn Arias MA calling from the [facility] on behalf of Kanchan Ge MD I am calling to check in with you to see how you re feeling since we spoke last. I'd like to ask you a few questions and hear updates on how you've been doing. Yes Contact with patient post discharge, spoke to patient. Patient identified by name and . Transition Navigator name: Kailyn Arias Transition Navigator name in Care Team Tab: Yes PCP notified of PAC enrollment: Yes Patient has AD on file: No Patient completed appointment with ACP CASSIA: No Patient completed appointment with PCP: Yes Referral made to Pharmacy pool: No Referral made to Primary Care Social Work (PCSW) pool: No Referral made to Behavioral Health Social Work (BHSW) pool: No Referrals made to [facility]: No Patient has a Architectural Intern (PCC): No DME received by patient: No Do you feel your health is BETTER, WORSE, or the SAME since we last spoke? Better PROGRAM COMPLETION NOTES Do you have any questions about taking your medications or which medications you should be on? No Do you need any medication refills at this time? No ACTION TAKEN: No - No action required Do you have the equipment needed to be safe at home? Yes - That's good to hear! - no action needed Is your home health agency still coming to your home? No Do you feel you need any assistance with your personal safety, housing, securing meals or food, transportation, or affording your medications? If so, would you like to speak with a social work rehabilitation team lead to help give you support for any of these needs? No ACTION TAKEN: No - Patient has no needs at this time - No action taken Your insurance covers an Annual Wellness Visit during which you can meet with a provider to createa personalized prevention plan that helps you stay as healthy as possible. Would you like to schedule that at this time? No - declines scheduling at this time Do you have any questions for your provider or is there anything you would like us to share with your primary care team? No - No action needed Can I help you with anything else at this time? No - No action needed NAVIGATOR: Please remind patient of upcoming primary and specialty care appointments. Appointments for Next 60 Days Date Time Provider Location Dept Phone 03/25/2024 2:15 PM TRACEE Park [facility] [phone] 03/25/2024 3:30 PM MANDO LING [facility] [phone] 04/27/2024 2:00 PM KANCHAN GE [facility] [phone] Thank you for taking the time to speak with me over these past few weeks. I wanted to let you know that one of my nursing partners, a Architectural Intern, will continue to follow your progress and ensure you are connected to the most appropriate services and resources needed to maintain your health and wellness. I will also be sure to let your doctor, Kanchan Ge MD, know how you ve been doing. Please know that if you need anything, you have a great team around you. You may callyour Primary Care Provider s office if you have any questions or need anything at all. Congratulations on taking good care of yourself and managing your health! I wish you well. End call NAVIGATOR: Route completed note to PCP Route the note to the Post-Acute Sleeve Fixer [[id number]] for the care coordination review End outreach documented in this encounterKettering [facility] Hospital10-03-2024 History of Present illness Narrative* Kailyn Arias MA - 03/04/2024 9:06 AM EDT POST-ACUTE CARE (PAC) PROGRAM Quick Note Action/FYI: Chart review follow up #2 -doing better last outreach -Home care established -completed TCM with PCP 02/26/24; no med changes; follow up 2 months; blood work and Xray completed results given to patient Will follow up 1 week program completion Patient identified by name and . documented in this encounterKettering [facility] Hospital09-30-2024 Telephone encounter Note * Telephone Encounter - Yamilet Canseco LPN - 03/01/2024 3:14 PM EDT Patient notified. Verbalized understanding. [facility]09-30-2024 Miscellaneous Notes* Telephone Encounter - Yamilet Canseco LPN - 03/01/2024 3:14 PM EDT Patient notified. Verbalized understanding. * Telephone Encounter - Kanchan Ge MD - 03/01/2024 2:49 PM EDT Blood work shows improving anemia from hospital discharge. No signs of infection. Alk phos level is elevated with normal LFTs. Suspect this is related to his recent fracture. Recommend checking levels in 1 month. documented in this encounterKettering [facility] Hospital09-30-2024 Telephone encounter Note * Telephone Encounter - Kanchan Ge MD - 03/01/2024 2:49 PM EDT Blood work shows improving anemia from hospital discharge. No signs of infection. Alk phos level is elevated with normal LFTs. Suspect this is related to his recent fracture. Recommend checking levels in 1 month. [facility]09-[facility] Telephone encounter Note* Telephone Encounter - Amaris Copeland RN - 02/27/2024 2:43 PM EDT Patient calls and notified of results and providers instructions. Patient verbalizes understanding. Amaris Copeland RN [facility]09-27-2024 Miscellaneous Notes* Telephone Encounter - Amaris Copeland RN - 02/27/2024 2:43 PM EDT Patient calls and notified of results and providers instructions. Patient verbalizes understanding. Amaris Copeland RN * Telephone Encounter - Ashley Christian LPN - 02/26/2024 3:12 PM EDT Left a message for pt to call the office and ask to speak to a nurse. Ashley Christian LPN * Telephone Encounter - Ashley Christian LPN - 02/26/2024 3:12 PM EDT ----- Message from Kanchan Ge MD sent at 02/26/2024 2:46 PM EDT ----- Chest xray is negative for pneumonia. Small fluid built up around lung bases which is unchanged compared to xray on 01/05. No change in regimen based on these results. documented in this encounterKettering Memorial Hospital09-26-2024 Telephone encounter Note * Telephone Encounter - Ashley Christian LPN - 02/26/2024 3:12 PM EDT Left a message for pt to call the office and ask to speak to a nurse. Ashley Christian LPN [facility]09-26-2024 Telephone encounter Note* Telephone Encounter - Ashley Christian LPN - 02/26/2024 3:12 PM EDT ----- Message from Kanchan Ge MD sent at 02/26/2024 2:46 PM EDT ----- Chest xray is negative for pneumonia. Small fluid built up around lung bases which is unchanged compared to xray on 01/05. No change in regimen based on these results. [facility]-26-[facility] History of Present illness Narrative* Helene Bowers, RT(R) - 02/26/2024 2:30 PM EDT Radiology Service Progress Note PATIENT NAME: Vicki Randle DATE OF SERVICE: February 26, 2024 TIME: 2:25 PM PATIENT IDENTITY VERIFICATION COMPLETED USING TWO (2) IDENTIFIERS: Name and Date of confirmedby patient verbally. FALL SCREENING: Has the patient had 2 falls in the last year or 1 fall with injury or currently using an Ambulatory Assistive Device (Walker, Cane, Wheelchair, Crutches, etc.)? Yes, Patient High Riskfor Falls What interventions were put in place to prevent falls during this visit? Offered Assistance with Transfers/Clothing and Instructed Patient to Remain Seated (Not on Exam Table) Until Exam PATIENT GENDER DATA: Male PATIENT RELEVANT IMPLANT DATA REVIEWED: Not Applicable PATIENT PRESENTS WITH AN IMPLANTABLE OR ATTACHED AGRICULTURE SPECIALIST: No RADIOLOGY DEPARTMENT: General X-ray: Exam(s) Completed: Spine X-Ray(s): Cervical AP / LAT PERIPHERAL IV DATA: Not applicable SIGNED BY: RT Graeme(R) February 26, 2024 2:25 PM documented in this encounterKettering Memorial Hospital09-26-2024 History of Present illness Narrative* Helene Bowers RT(R) - 02/26/2024 2:20 PM EDT Radiology Service Progress Note PATIENT NAME: Vicki Randle DATE OF SERVICE: February 26, 2024 TIME: 2:16 PM PATIENT IDENTITY VERIFICATION COMPLETED USING TWO (2) IDENTIFIERS: Name and Date of confirmedby patient verbally. FALL SCREENING: Has the patient had 2 falls in the last year or 1 fall with injury or currently using an Ambulatory Assistive Device (Walker, Cane, Wheelchair, Crutches, etc.)? Yes, Patient High Riskfor Falls What interventions were put in place to prevent falls during this visit? Offered Assistance with Transfers/Clothing and Instructed Patient to Remain Seated (Not on Exam Table) Until Exam PATIENT GENDER DATA: Male PATIENT RELEVANT IMPLANT DATA REVIEWED: Not Applicable PATIENT PRESENTS WITH AN IMPLANTABLE OR ATTACHED AGRICULTURE SPECIALIST: No RADIOLOGY DEPARTMENT: General X-ray: Exam(s) Completed: Chest X-Ray PERIPHERAL IV DATA: Not applicable SIGNED BY: RT Graeme(R) February 26, 2024 2:16 PM documented in this encounterK[facility] History of Present illness Narrative* Kanchan Ge MD - 02/26/2024 1:19 PM EDT Chief Complaint Patient presents with: Transition Of Care Refill Request: Patient requesting handicap plaqard HPI Vicki Randle is a 78 year old male who presents here today for Above Complaints. Accompanied todayby his son Alex. Patient admitted to [facility] from 12/31 to 01/08 for a fall leading to cervical spine fractureand left vertebral artery dissection with following Hospital course: SUMMARY OF WHAT HAPPENED WHILE I WAS IN THE HOSPITAL: Mr. Randle was admitted at [facility] on 01/01/2024 following a fall. He was found to have the following acute traumatic injuries: 1.C4 fractures (left lamina, left transverse process, left pedicle, and spinous process) 2. Acute spinal cord injury/contusion at the C4-C5 level 3.Cervical spine ligamentous injury 4. Left vertebral artery dissection He was taken to the operating room by neurosurgery on 01/01/2024. He should continue to wear the c-collar at all times. He was evaluated by neuro- interventional radiology who recommended Aspirin 81mg daily for his vertebral artery dissection. He should have a follow up CTA of his neck in 8 weeks. Mr. Randle was evaluated by physical and occupational therapy who recommended Acute Rehab for his ongoing recovery. He will require follow up appointments with neurosurgery, neuro-interventional, and his primary care provider. OPERATIONS PERFORMED WHILE IN THE HOSPITAL: 01/01/2024 - Posterior segmental instrumentation and posterior lateral fusion C3- C6; ORIF of C4 fracture; C3-C6 laminectomy; Use of locally harvested morselized bone autograft and bone allograft (Dr. Ling) Patient was transferred to [facility] for rehab and was discharged on 02/12 without change in regimen. Patient is back home and has his son Kris staying with him. They have been helping him by preparing meals, helping with house work, bathing, transportation. Using walker for ambulation and feels steady. Tolerating PO diet and eating 3 meals per day. Not drinking much water. BP is low today and has been at home, but denies feeling lightheaded or dizzy. Patient had f/u with neurosurgery on 02/23 with following recommendations: Assessment & Plan: Mr. Randle presents approximately 7 weeks after his C3-6 PCF for central cord syndrome. His left upper extremity allodynia has resolved. The strength in his left arm is improving. 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 He feels that it has been stable over the last month orso. His leg strength is good. He is doing physical therapy at home, and can ambulate with a walker and some assistance. He did not get his x-rays prior to his visit today; I encouraged him to do so. He has not really been wearing his collar at home. His incision is well-healed. I will see him back in 1 month with an MRI of his cervical spine without contrast. I explained that it can take some time for the nerves to recover after an injury like this, but I do not see any red flag signs or symptoms that would warrant more urgent imaging. I will see him back in 1 month. All questions were answered. Patient states that he has no use of his right arm. Cannot lift his arm up but can bend and flex his fingers. States his clerk secretary strength is good. Plans to get repeat cervical spine xray today before he leaves. Still has not been wearing his C collar as recommended. Has not had any pain in his neck and has not needed Oxycodone. No recurrent falls since discharge and has not had any alcohol either. Referred to home health for PT, OT and SN with start of services on 02/15. Working on rebuilding upper and lower body strength. Will be coming out 2 times per week. SN out 2 times per week to check his vitals. Past medical history, appointments, medications, allergies reviewed. Previous Medical History PAST MEDICAL HISTORY Diagnosis Date AAA (abdominal aortic aneurysm) ([facility]) 02/06/2012 01/10/17: CT abd 4.8 cm. s/p aortobiliac stent.-Dr. Johan Berg Actinic keratosis On [facility], Dr. Dudley Acute deep vein thrombosis (DVT) of femoral vein of left lower extremity ([facility]) 03/16/2018 02/19/18--on Eliquis At high risk for falls Basal cell carcinoma 2019 left cheek Benign essential tremor Benign hypertension 07/13/2015 BPH with obstruction/lower urinary tract symptoms Bruit right carotid artery Chewing tobacco use Class 1 obesity due to excess calories without serious comorbidity with body mass index (BMI) of 33.0 to 33.9 in adult Closed rib fracture 01/2023 right rib fracture after fall Esophageal reflux Gastroesophageal reflux Facet arthritis of lumbar region 06/27/2014 History of carpal tunnel surgery 1990s Hypertrophy of prostate without urinary obstruction and other lower urinary tract symptoms (LUTS) Hypertrophy of the prostate w/o obstruction Left leg DVT (HCC) 02/19/2018 Mixed hyperlipidemia Hyperlipidemia 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 Melo Personal history of colonic polyps Pulmonary emphysema (HCC) 12/31/2016 Sebaceous cyst Situational depression 07/03/2016 Squamous cell carcinoma 04/04/2015 Left cheek Venous insufficiency of both lower extremities 07/01/2014 Previous Surgical History PAST SURGICAL HISTORY Procedure Laterality Date COLONOSCOPY 12/29/2017 adenomatous polyp, repeat in 5 years COLONOSCOPY FLX DX W/COLLJ SPEC WHEN PFRMD 08/17/2007 EXCISION TUMOR SOFT TISSUE THIGH/KNEE SUBQ <3CM REMOVED FATTY TUMORS FROM UNDER EXCISION TUMOR SOFT TISSUE THIGH/KNEE SUBQ <3CM RMOVED FATTY TUMORE INT REPAIR SCALP,JAYCOB,TRUNK 7.6-12.5CM 02/24/2007 back LAPS SURG CHOLECYSTECTOMY W/CHOLANGIOGRAPHY 09/07/2007 MRI 02/22/2014 [facility] - mri - right knee PAST SURGICAL HISTORY OF N/A 09/09/2017 Abdominal aneurysm aortic repair PAST SURGICAL HISTORY OF Right 2013 arthroscopic knee surgery PAST SURGICAL HISTORY OF Left excision of knee bursa REM LESION TRUNK,ARM,LEG > 4.0CM 02/24/2007 back REM LESION TRUNK,ARM,LEG > 4.0CM REVISE MEDIAN N/CARPAL TUNNEL SURG Bilateral 1990s SURGERY (GENERAL SURGERY) CONSULT 04/25/2015 Invasive squamous cell carcincoma see scanned documents Family History FAMILY HISTORY Problem Relation Age of Onset Emphysema Mother Arthritis Sister Hypertension Maternal Grandmother No Known Problems Son No Known Problems Son No Known Problems Son No Known Problems Son No Known Problems Son Patient Allergies ALLERGIES Allergen Reactions Lipitor [Atorvastat* Intolerance Rosuvastatin Calcium Intolerance Incvagm-Dwc-Hun Red* Myalgia Current Medications Current Outpatient Medications on File Prior to Visit Medication Sig oxycodone HCl (OXYCODONE ORAL) Take 5 mg by mouth every 8 hours as needed. melatonin 3 mg tablet Take 3 tablets by mouth daily at bedtime. evolocumab (REPATHA SURECLICK) 140 mg/mL pen injector Inject 140 mg subcutaneously every 2 weeks. fluticasone (FLONASE) 50 mcg/actuation nasal spray Use 2 Sprays in each nostril once daily. Rinse mouth after use. aspirin, enteric coated (ECOTRIN LOW STRENGTH) 81 mg EC tablet Take 1 tablet by mouth once daily. gabapentin (NEURONTIN) 300 mg capsule Take 1 capsule by mouth three times a day for 30 days. [id number]-[id number]-[id number] 3.5 MG/ML-10,000 UNIT/ML-0.1% EYE DROPS Use 1 Drop in both eyes four times daily. acetaminophen (TYLENOL) 325 mg tablet Take 3 tablets by mouth every 6 hours as needed for pain. Current Facility-Administered Medications on File Prior to Visit Medication perflutren lipid microspheres 1.3 mL in NaCl (PF) 0.9% 10 mL injection (DEFINITY) sodium chloride 0.9 % (flush) 10 mL (BD POSIFLUSH) Social History Social History Tobacco Use Smoking status: Former Current packs/day: 0.00 Average packs/day: 1 pack/day for 30.0 years (30.0 ttl pk-yrs) Types: Cigarettes Start date: 06/02/1958 Quit date: 06/02/1988 Years since quittin.7 Smokeless tobacco: Former Types: Chew Tobacco comments: Brief relaps after of spouse. Vaping Use Vaping status: Never Used Substance Use Topics Alcohol use: Not Currently Drug use: No Review of Symptoms REVIEW OF SYSTEMS GENERAL: No weight loss, malaise or fevers RESPIRATORY: Cough; dry in the last week without SOB or wheezing. CARDIOVASCULAR: Negative for chest pain, leg swelling, hypertension, CHF or palpitations GI: No nausea, vomiting, or diarrhea SKIN: Negative for lesions, rash, and itching EXAM: BP 92/66 Pulse 94 Resp 16 Wt 95.6 kg (210 lb 12.8 oz) SpO2 97% BMI 27.81 kg/m General Appearance: Well appearing, alert, in no acute distress, well-hydrated, well nourished.. Skin: Skin color, texture, turgor normal, no suspicious rashes or lesions. Lungs: decreased lung sounds in right lung base without rales rhonchi or wheezing. Right lung CTA. Heart: RRR without murmur, gallop, or rubs. No ectopy. Abdomen: Normal abdominal exam, Abdomen soft, non-tender. Bowel sounds normal. No masses, organomegaly. 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 Good capillary refill. . Neurologic: 2/5 strength in right arm. 4/5 in left arm. 5/5 clerk secretary strength bilaterally. 5/5 strengthin LE bilaterally. Health Maintenance List Anxiety Screening Never done Hepatitis C Screening Never done Advance Directive Discussion Never done Covid-19 Vaccine(2023- season) due on 02/01/2024 Influenza Vaccine(1) due on 02/01/2024 RSV Vaccine(1 - 1-dose 75+ series) due on 04/21/2024 Shingrix Vaccine(1 of 2) due on 04/21/2024 Annual PCP Team Chronic Disease Visit due on 12/01/2024 BP Controlled (<130/80) due on 02/23/2025 Diabetes Screening due on 01/07/2027 DTaP,Tdap,Td Vaccine(4 - Td or Tdap) due on 03/26/2032 Spirometry Completed Pneumococcal Vaccine: 65+ Completed HPV Vaccine Aged Out Colorectal Cancer Screening Discontinued Data reviewed Latest Ref Rng 01/06/2024 01/07/2024 01/08/2024 WBC 3.70 - 11.00 k/uL 6.86 7.40 9.10 RBC 4.20 - 6.00 m/uL 3.53 (L) 3.52 (L) 3.83 (L) Hemoglobin 13.0 - 17.0 g/dL 9.8 (L) 9.9 (L) 10.6 (L) Hematocrit 39.0 - 51.0 % 31.0 (L) 30.9 (L) 34.3 (L) MCV 80.0 - 100.0 fL 87.8 87.8 89.6 MCH 26.0 - 34.0 pg 27.8 28.1 27.7 MCHC 30.5 - 36.0 g/dL 31.6 32.0 30.9 RDW-CV 11.5 - 15.0 % 16.1 (H) 16.3 (H) 16.7 (H) Platelet Count 150 - 400 k/uL 311 340 416 (H) MPV 9.0 - 12.7 fL 9.9 9.7 10.3 Absolute nRBC <0.01 k/uL <0.01 <0.01 <0.01 Glucose 74 - 99 mg/dL 105 (H) 104 (H) 114 (H) BUN 9 - 24 mg/dL 8 (L) 14 17 Creatinine 0.73 - 1.22 mg/dL 0.89 0.93 0.88 Sodium 136 - 144 mmol/L 137 141 137 Potassium 3.7 - 5.1 mmol/L 4.3 4.2 4.3 Chloride 98 - 107 mmol/L 101 104 103 CO2 22 - 30 mmol/L 27 25 24 Anion Gap 8 - 15 mmol/L 9 12 10 Calcium 8.5 - 10.2 mg/dL 8.7 8.7 8.9 eGFR >=60 mL/min/1.73m 88 84 88 Normalized Calcium 1.08 - 1.30 mmol/L 1.16 Ionized Calcium 1.08 - 1.30 mmol/L 1.20 Magnesium 1.7 - 2.3 mg/dL 2.1 Phosphorus 2.7 - 4.8 mg/dL 4.4 Legend: (L) Low (H) High ASSESSMENT/PLAN: 1. Fall in home, initial encounter - ICD9: E888.9, E849.0, ICD10: W19.XXXA, Y92.009 (primary diagnosis) S/p fall at home with C4 fracture, spinal contusion, and vertebral artery dissection. Patient has been non compliant with C collar at home. Due for cervical spine xray which will be completed today. Continues to have right arm weakness which he is following up with PT and neurosurgery for. Continuecurrent regimen. Work on HEP. Will f/u specialist recommendations. 2. Other closed nondisplaced fracture of fourth cervical vertebra with routine healing, subsequent encounter - ICD9: V54.17, ICD10: S12.391D See above. Requesting handicap placard. - PARKING FOR HANDICAPPED 3. Vertebral artery dissection (HCC) - ICD9: 443.24, ICD10: I77.74 Recommendations per neurosurgery. 4. Contusion of cervical spinal region - ICD9: 920, ICD10: S10.93XA Recommendations per neurosurgery. 5. Muscle right arm weakness - ICD9: 728.87, ICD10: M62.81 See above. Recommendations per neurosurgery. 6. Decreased breath sounds at left lung base - ICD9: 786.7, ICD10: R06.89 Noted on exam today. Will obtain CXR to rule out PNA or effusion with recent hospitalization. - XR CHEST 2V FRONTAL/LAT 7. Alcohol abuse - ICD9: 305.00, ICD10: F10.10 Patient denies alcohol use since discharge. Discussed importance of continued abstinence from alcohol. 8. Anemia, unspecified type - ICD9: 285.9, ICD10: D64.9 2/2 vertebral dissection. Repeat labs to monitor. - COMPLETE BLOOD COUNT AND DIFFERENTIAL - COMPREHENSIVE METABOLIC PANEL 9. Encounter for immunization - ICD9: V03.89, ICD10: Z23 - INFLUENZA VACCINE, PRSV FREE, AGE 65+ YR, HIGH DOSE, TRIVALENT (FLUZONE HIGH-DOSE) - [employer] COVID-19 VACCINE AGE 12+ YR ([place]) I spent a total of 40 minutes on the date of the service which included preparing to see the patient, caiz-ig-hpry patient care, completing clinical documentation, obtaining and/or reviewing separately obtained history, performing a medically appropriate examination, counseling and educating the pat ient/family/caregiver, and ordering medications, tests, or procedures. Kanchan Ge MD documented in this encounterK[facility]09-24-[facility]24 History of Present illness Narrative* Mando Ling MD - 02/24/2024 2:15 PM EDT NEUROSURGERY POST-OP NOTE Mando Ling MD [facility] Date of visit: February 24, 2024 Patient Name: Mr.Michael Randle Date of : 1945 Current Age: [age] year old Sex: male MRN/E# [id number] Last Office Visit: 01/29/2024 SURGERY: C3-C6 PCDF on 01/01/2024 Pre-Surgical Symptoms: fall - central cord syndrome Past Medical/Surgical History: Mr. Randle is a 78 year old male with a past medical history of AAA, DVT (on Eliquis), basal cell carcinoma, benign essential tremor, HTN, BPH, Bruit of right carotid artery, nodule of right lung, venous insufficiency of BLE. No significant surgical history. HPI: Mr. Randle presented to [facility] ED on 01/01/2024 as a transfer from [facility] via flight team for trauma evaluation after a fall in the bathroom after drinking. His biggest complaint at [facility] was leftsided neck pain and he was found to have C4 fracture with possible vertebral artery injury, which CTA confirmed Vertebral artery dissection. He was then flown from [place] to [facility]. He was on Eliquis for history of DVT, but he stated it had been 2 weeks since he had been taken off that therapy. Neurosurgery was consulted and MRI showed ligamentous injury across C4-C5 with severe canal stenosis, for which he proceeded with the surgery above. His hospital stay was complicated with bilateral arm and hand weakness with intermittent paresthesia. Hemovac drain was removed 01/06/2024. He was advised to continue wearing [place] cervical collar at all times. NIL recommended ASA 81 when able ( POD #7) and to repeat CTA H/N in 8-10 weeks for left vertebral artery dissection. A consult was placed to PM&R and he was discharged to SNF on 01/09/2024. He presented to the office on 01/22/2024 their 2 week post operative visit. He felt that surgery went well. He presented in a wheelchair from the facility. He reported compliance with the cervical collar, though he does not like it. He reported minimal neck pain but continued with BUE paresthesia and weakness, though it had improved. He had been working with physical therapy which had been helping. He denied any new pain, paresthesia, falls. He did have some remaining right hand sutures that were removed at the visit. His incision was well healed and his xray's were reviewed and looked well. He was switched to a [place] collar as the [place] was uncomfortable for him. It was recommended he continue with his cervicalcollar for another 2 months, but was able to remove it for sleep. He was to follow up in 1 month with repeat imaging, prompting his visit today. Patient is having their 8 week post operative visit. He presents to the office today with his son in a wheelchair. He denies any neck pain or upper extremity pain, he does have continued occasional paresthesia in his bilateral thumbs and index fingers.He notes continued dexterity issues and continue use of his walker, denies any falls. He was discharged from SNF on 02/07/2024 and reports not wearing his cervical collar since 02/08/2024. He has been treating his symptoms with occasional Tylenol and participation in physical therapy at SNF and Home PT. He notes minimal improvement in strength in his left upper extremity however denies any improvement in his right upper extremity strength. He states his left arm weakness developed after the initialfall and his right arm weakness began after surgical intervention. Denies fevers, chills, drainage from incision site, headaches, nausea/vomiting or seizure like activity. He presents to the office for image review, evaluation and plan of care. Incision: Healed Current Outpatient Medications Medication Sig Dispense Refill gabapentin (NEURONTIN) 300 mg capsule Take 1 capsule by mouth three times a day for 30 days. melatonin 3 mg tablet Take 3 tablets by mouth daily at bedtime. [id number]-[id number] 3.5 MG/ML-10,000 UNIT/ML-0.1% EYE DROPS Use 1 Drop in both eyes four times daily. evolocumab (REPATHA SURECLICK) 140 mg/mL pen injector Inject 140 mg subcutaneously every 2 weeks. 6mL 1 acetaminophen (TYLENOL) 325 mg tablet Take 3 tablets by mouth every 6 hours as needed for pain. fluticasone (FLONASE) 50 mcg/actuation nasal spray Use 2 Sprays in each nostril once daily. Rinse mouth after use. 1 Each 2 aspirin, enteric coated (ECOTRIN LOW STRENGTH) 81 mg EC tablet Take 1 tablet by mouth once daily. 0 oxycodone HCl (OXYCODONE ORAL) Take 5 mg by mouth every 8 hours as needed. Current Facility-Administered Medications Medication Dose Route Frequency Provider Last Rate Last Admin perflutren lipid microspheres 1.3 mL in NaCl (PF) 0.9% 10 mL injection (DEFINITY) INTRAVENOUS DIRECTED PRN Kanchan Ge MD sodium chloride 0.9 % (flush) 10 mL (BD POSIFLUSH) 10 mL INTRAVENOUS DIRECTED PRN Kanchan Ge MD Objective Review of Systems Constitutional: Negative for diaphoresis, fatigue and fever. HENT: Negative for drooling and trouble swallowing. Eyes: Negative for visual disturbance. Respiratory: Negative for cough, chest tightness and shortness of breath. Cardiovascular: Negative for chest pain, palpitations and leg swelling. Gastrointestinal: Negative for constipation, diarrhea and nausea. Endocrine: Negative for cold intolerance and heat intolerance. Genitourinary: Negative for difficulty urinating and dysuria. Musculoskeletal: Positive for gait problem. Negative for back pain and neck pain. Skin: Negative for color change and pallor. Allergic/Immunologic: Negative for immunocompromised state. Neurological: Positive for weakness and numbness. Negative for seizures, speech difficulty and headaches. Hematological: Does not bruise/bleed easily. Psychiatric/Behavioral: Negative for agitation, behavioral problems and confusion. PHYSICAL EXAM: Mental State : Alert, memory function unremarkable. Attention span and concentration normal for patient's age. Speech normal, no receptive or expressive speech deficit. Recent and remote memory normal. Orientation : Oriented to person, place and time. Cranial Nerves : Grossly intact. Sensory: Normal Sensation in upper and lower extremities and trunk to touch and noxious stimuli. Motor: Normal muscle tone and bulk. No tremor or uncontrollable movements. No spasticity or tremor. Gait and Station: in wheelchair, can walk with assistance with a walker STRENGTH: Upper Extremity Strength Exam Right Left Elbow Flexion 2/5 4/5 Elbow Extension 4-/5 4/5 Finger Flexion 4+/5 4+/5 Finger Extension 4+/5 4+/5 Finger Abduction 4+/5 4+/5 Lower Extremity Strength Exam Right Left Hip Flexion 4+/5 4+/5 Knee Flexion 5/5 5/5 Knee Extension 5/5 5/5 Dorsiflexion 5/5 5/5 Plantarflexion 5/5 5/5 WOUND ASSESSMENT: Healing well PAIN EVALUATION No data found in the last 1 encounters. Data Review: IMAGING STUDIES: XR Cervical: pt did not obtain prior to this visit Assessment & Plan: Mr. Randle presents approximately 7 weeks after his C3-6 PCF for central cord syndrome. His left upper extremity allodynia has resolved. The strength in his left arm is improving. 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 He feels that it has been stable over the last month orso. His leg strength is good. He is doing physical therapy at home, and can ambulate with a walker and some assistance. He did not get his x-rays prior to his visit today; I encouraged him to do so. He has not really been wearing his collar at home. His incision is well-healed. I will see him back in 1 month with an MRI of his cervical spine without contrast. I explained that it can take some time for the nerves to recover after an injury like this, but I do not see any red flag signs or symptoms that would warrant more urgent imaging. I will see him back in 1 month. All questions were answered. Attribution: The following portions of the patient's history were reviewed, confirmed, and updated as necessary:allergies, current medications, past family history, past medical history, past social history, past surgical history, problem list, HPI, and ROS obtained by others. Some elements may be copied from a previous office note and have been reviewed/updated where appropriate. All portions reflect current medical decision making from today. The clinical and radiographic findings as well as the risks, benefits and alternatives of treatmenthave been reviewed in detail with the patient. Advised to call the office if symptoms worsen or new symptoms develop. Patient expressed understanding and is in agreement with plan. Mando Ling MD [facility] This note was partially generated using [employer] voice recognition system, and there may be some incorrect words, spellings, and punctuation that were not noted in checking the note before saving. documented in this encounterKettering [facility]09-24-2024 NoteHNO ID: [id number] Author: MANDO LING MD Service: ? Author Type: Physician Type: Progress Notes Filed: 02/24/2024 14:11 Note Text: NEUROSURGERY POST-OP NOTE Mando Ling MD [facility] Date of visit: February 24, 2024 Patient Name: Mr.Michael Randle Date of : 1945 Current Age: [age] year old Sex: male MRN/E# [id number] Last Office Visit: 01/29/2024 SURGERY: C3-C6 PCDF on 01/01/2024 Pre-Surgical Symptoms: fall - central cord syndrome Past Medical/Surgical History: Mr. Randle is a 78 year old male with a past medical history of AAA, DVT (on Eliquis), basal cell carcinoma, benign essential tremor, HTN, BPH, Bruit of right carotid artery, nodule of right lung, venous insufficiency of BLE. No significant surgical history. HPI: Mr. Randle presented to [facility] ED on 01/01/2024 as a transfer from [facility] via flight team for trauma evaluation after a fall in the bathroom after drinking. His biggest complaint at [facility] was left sided neck pain and he was found to have C4 fracture with possible vertebral artery injury, which CTA confirmed Vertebral artery dissection. He was then flown from [place] to [facility]. He was on Eliquis for history of DVT, but he stated it had been 2 weeks since he had been taken off that therapy. Neurosurgery was consulted and MRI showed ligamentous injury across C4-C5 with severe canal stenosis, for which he proceeded with the surgery above. His hospital stay was complicated with bilateral arm and hand weakness with intermittent paresthesia. Hemovac drain was removed 01/06/2024. He was advised to continue wearing [place] cervical collar at all times. NIL recommended ASA 81 when able ( POD #7) and to repeat CTA H/N in 8-10 weeks for left vertebral artery dissection. [facility]. He presented to the office on 01/22/2024 their 2 week post operative visit. He felt that surgery went well. He presented in a wheelchair from the facility. He reported compliance with the cervical collar, though he does not like it. He reported minimal neck pain but continued with BUE paresthesia and weakness, though it had improved. He had been working with physical therapy which had been helping. He denied any new pain, paresthesia, falls. He did have some remaining right hand sutures that were removed at the visit. His incision was well healed and his xray's were reviewed and looked well. He was switched to a [place] collar as the [place] was uncomfortable for him. It was recommended he continue with his cervical collar for another 2 months, but was able to remove it for sleep. He was to follow up in 1 month with repeat imaging, prompting his visit today. Patient is having their 8 week post operative visit. He presents to the office today with his son in a wheelchair. He denies any neck pain or upper extremity pain, he does have continued occasional paresthesia in his bilateral thumbs and index fingers. He notes continued dexterity issues and continue use of his walker, denies any falls. He was discharged from [facility] on 02/07/2024 and reports not wearing his cervical collar since 02/08/2024. He has been treating his symptoms with occasional Tylenol and participation in physical therapy at SNF and Home PT. He notes minimal improvement in strength in his left upper extremity however denies any improvement in his right upper extremity strength. He states his left arm weakness developed after the initial fall and his right arm weakness began after surgical intervention. Denies fevers, chills, drainage from incision site, headaches, nausea/vomiting or seizure like activity. He presents to the office for image review, evaluation and plan of care. Incision: Healed Current Outpatient Medications Medication Sig Dispense Refill gabapentin (NEURONTIN) 300 mg capsule Take 1 capsule by mouth three times a day for 30 days. melatonin 3 mg tablet Take 3 tablets by mouth daily at bedtime. [id number] 3.5 MG/ML-10,000 UNIT/ML-0.1% EYE DROPS Use 1 Drop in both eyes four times daily. evolocumab (REPATHA SURECLICK) 140 mg/mL pen injector Inject 140 mg subcutaneously every 2 weeks. 6 mL 1 acetaminophen (TYLENOL) 325 mg tablet Take 3 tablets by mouth every 6 hours as needed for pain. fluticasone (FLONASE) 50 mcg/actuation nasal spray Use 2 Sprays in each nostril once daily. Rinse mouth after use. 1 Each 2 aspirin, enteric coated (ECOTRIN LOW STRENGTH) 81 mg EC tablet Take 1 tablet by mouth once daily. 0 oxycodone HCl (OXYCODONE ORAL) Take 5 mg by mouth every 8 hours as needed. Current Facility-Administered Medications Medication Dose Route Frequency Provider Last Rate Last Admin perflutren lipid microspheres 1.3 mL in NaCl (PF) 0.9% 10 mL injection (DEFINITY) INTRAVENOUS DIRECTED PRN Kanchan Ge MD sodium chloride 0.9 % (flush) 10 mL (BD POSIFLUSH) 10 mL INTRAVENOUS (more content not included)...[facility]09-24-2024 History of Present illness Narrative* Kailyn Arias, MA - 02/24/2024 12:53 PM EDT USP FACILITY (SNF) TRANSITIONAL CARE MANAGEMENT (TCM) POST-ACUTE CARE (PAC) PROGRAM Transitions Navigator Outreach Provider Action/FYI: SNF TCM PAC Follow up #1 DC: 02/14/24 [facility]. [facility]: [facility] Family contact: Alex Randle (Son) [phone] Reason for Hospitalization: Pt presented with fall, Dx- C4 fracture and a vertebral artery dissection 1st attempt left message for patient to return call; no mychart will outreach next day -home care established SOC 02/20/24 -neurosurgery 02/24/20 -PCP TCM 02/26/24 TYPE OF OUTREACH: PAC TCM Follow-Up #1 PATIENT OUTREACH Contact made with patient:No - schedule next outreach for next business day in the Track Patient Outreach section, end outreach End Outreach documented [facility] Telephone encounter Note * Telephone Encounter - Kelley Brown RN - 02/20/2024 3:22 PM EDT error [facility]09-20[facility] Miscellaneous Notes* Telephone Encounter - Kelley Brown RN - 02/20/2024 3:22 PM EDT error documented in this encounterK[facility]09-20-[facility]24 Telephone encounter Note * Telephone Encounter - Marlin Champagne RN - 02/20/2024 9:19 AM EDT Katelynn from [facility] calls and states that they started up services for patient on Friday for prison, physical therapy, and occupational therapy. Marlin Champagne RN [facility]09-20-2024 Miscellaneous Notes* Telephone Encounter - Marlin Champagne RN - 02/20/2024 9:19 AM EDT Katelynn from [facility] calls and states that they started up services for patient on Friday for prison, physical therapy, and occupational therapy. Marlin Champagne RN documented in this encounterK[facility]09-16-2024 History of Present illness Narrative* Kailyn Arias MA - 02/16/2024 1:43 PM EDT USP FACILITY (SNF) TRANSITIONAL CARE MANAGEMENT (TCM) POST-ACUTE CARE (PAC) PROGRAM Transitions Navigator Outreach Provider Action/FYI: SNF TCM PAC Initial outreach DC: 02/14/24 [facility]: [facility] Family contact: Alex Randle (Son) [phone] Reason for Hospitalization: Pt presented with fall, Dx- C4 fracture and a vertebral artery dissection 1st attempt left message for patient to return call will attempt outreach next day (no mychart) -pt lives at home alone; independent with ADLs/IADLs; no AD; was still driving -needs TCM -home care received verbal from PCP 02/12/24 TYPE OF OUTREACH: PAC TCM Initial Outreach SUMMARY [facility] discharge: [facility] admission date: 01/01/24 [facility] discharge date: 01/09/24 Transition from: Long Term Facility (SNF) Non-Network Facilities: Other - enter name in comments ([facility] ) SNF admission date: 01/09/24 SNF discharge date: 02/14/24 PATIENT OUTREACH Contact made with patient: No - schedule next outreach for next business day in the Track Patient Outreach section, end outreach End Outreach documented in this encounterK[facility]09-16-2024 History of Present illness Narrative* Joana Busch V - 02/16/2024 11:16 AM EDT PAC TCM OUTREACH DOCUMENTION USP FACILITY (SNF) TRANSITIONAL CARE MANAGEMENT (TCM) POST-ACUTE CARE (PAC) PROGRAM LOS [employer] Installer Outreach PAC Transition Navigator Action/FYI: 824 - Posterior segmental instrumentation and posterior lateral fusion C3-C6; ORIF of C4 fracture; C3-C6 laminectomy; Use of locally harvested morselized bone autograft and bone allograft PAC Transition Navigator Handoff Reason for Hospitalization: Pt presented with fall, Dx- C4 fracture and a vertebral artery dissection SNF stay summary: LOS FAC did not follow pt in SNF Specialized Discharge Instructions/Needs: NA Prior Level of Function (PLOF): Per chart review pt lives at home alone. 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 Pt was independent with ADLs/IADLs. Pt ambulated without AD. Pt still drove. DME Owned: [employer] Current/Active resources in community: [facility] Patient has been recently discharged from a prison facility and the doc flowsheet has beencompleted. [facility] Rick [facility] date: 01/01/24 [facility] discharge date: 01/09/24 LOS [employer] Installer name: Joana Busch LOS [employer] Installer name in Care Team Tab: -- (LOS FAC did not follow pt in SNF) Non-Network Facilities: Other - enter name in comments ([facility] ) SNF admission date: 01/09/24 SNF discharge date: 02/14/24 SNF [employer] Skilled LOS: 19 SNF Actual Skilled LOS: 36 Family contact identified: -- (ref to [facility] contact list) DME ordered: Unknown Home care ordered: Yes ([facility] ) Home care services type: PT/OT PCP notified of PAC enrollment: No PCC notification: No Intro MC message sent: No Follow-up appts: Appointments for Next 60 Days Date Time Provider Location Dept Phone 02/24/2024 2:15 PM MANDO LING [facility] [phone] PAC Transition Navigator, please contact patient for PAC TCM Outreach and continuity of care. documented in this encounterK[facility]tering [facility]09-12-2024 Telephone encounter Note * Telephone Encounter - Yosef Ya RN - 02/12/2024 3:23 PM EDT Called and left a detailed voicemail notifying Alo from [facility] of providers message. Clinic phone number was left in case she had any questions. Yosef Ya RN [facility]09-12-2024 Miscellaneous Notes* Telephone Encounter - Yosef Ya RN - 02/12/2024 3:23 PM EDT Called and left a detailed voicemail notifying Alo from [facility] of providers message. Clinic phone number was left in case she had any questions. Yosef Ya RN * Telephone Encounter - Kanchan Ge MD - 02/12/2024 3:05 PM EDT Yes will follow. * Telephone Encounter - Debbie Nolen LPN - 02/12/2024 2:35 PM EDT Alo calling from [facility] calling states pt is to be released from [facility] tomorrow asking if you would follow for ot, pt and prison.Please advise. documented in this encounterK[facility]09-12-2024 Telephone encounter Note * Telephone Encounter - Kanchan Ge MD - 02/12/2024 3:05 PM EDT Yes will follow. [facility]09-12[facility] Telephone encounter Note* Telephone Encounter - Debbie Nolen LPN - 02/12/2024 2:35 PM EDT Alo calling from [facility] calling states pt is to be released from [facility] tomorrow asking if you would follow for ot, pt and prison.Please advise. [facility]08[facility] Telephone encounter Note* Telephone Encounter - Annelise Gonzalez RN - 01/29/2024 11:44 AM EDT Patient is status post C3-C6 PCDF on 01/01/[address] Ling. Spoke to KHRIS Mcdonough at [facility]. Sharonda stated upon assessment this morning by RN and incident commander, patient had a 0.5 x 1 cm incision dehiscence with some erythema to the incision. She noted incision had pus drainage and a wound culture was obtained and sent. She denied patient having any fevers or chills. She stated the incident commander dressed wound with Calcium alginate and dry gauze. Dr. Ling aware and ordered with verbal read back to start Bactrim DS 800 mg BID for 14 days and to follow-up as scheduled unless worsening symptoms. Additionally, Dr. Ling okayed to continue with Calcium Alginate and dry gauze dressings as completed by the incident commander. I discussed the above with KHRIS Mcdonough. She verbalized understanding. An written prescription was faxed to facility at fax number [phone]. This number was confirmedwith Sharonda PINEDO. Received confirmation of fax. Sharonda is aware to contact the office if patient develops any fevers, chills, worsening wound drainage or worsening symptoms. She verbalized understanding and was appreciative of the assistance. KHRIS Castelan [facility] Telephone #- [phone] Fax #- [phone] [facility]08-29-[facility] Miscellaneous Notes* Telephone Encounter - Annelise Gonzalez RN - 01/29/2024 11:44 AM EDT Patient is status post C3-C6 PCDF on 01/01/[address] Ling. Spoke to KHRIS Mcdonough at [facility]. Sharonda stated upon assessment this morning by RN and incident commander, patient had a 0.5 x 1 cm incision dehiscence with some erythema to the incision. She noted incision had pus drainage and a wound culture was obtained and sent. She denied patient having any fevers or chills. She stated the incident commander dressed wound with Calcium alginate and dry gauze. Dr. Ling aware and ordered with verbal read back to start Bactrim DS 800 mg BID for 14 days and to follow-up as scheduled unless worsening symptoms. Additionally, Dr. Ling okayed to continue with Calcium Alginate and dry gauze dressings as completed by the incident commander. I discussed the above with KHRIS Mcdonough. She verbalized understanding. An written prescription was faxed to facility at fax number [phone]. This number was confirmedwith Sharonda PINEDO. Received confirmation of fax. Sharonda is aware to contact the office if patient develops any fevers, chills, worsening wound drainage or worsening symptoms. She verbalized understanding and was appreciative of the assistance. KHRIS Castelan [facility] Telephone #- [phone] Fax #- [phone] documented in this encounterKettering [facility] Hospital08-23-2024 Telephone encounter Note * Telephone Encounter - Kelley Brown RN - 01/23/2024 11:00 AM EDT Spoke to Sharonda, nurse taking care of [facility]. She states that he is insisting Dr. Ling gave him permission to remove the cervical collar. I advised her that he need to remain in the collar for up to 2 more months, and that we ordered a new type of brace for him that may be more comfortable. I stated that he may remove the collar to sleep, but need to wear it otherwise. She was very thankful and appreciative of the information. Kelley Brown RN [facility]08-23-2024 Miscellaneous Notes* Telephone Encounter - Kelley Brown RN - 01/23/2024 11:00 AM EDT Spoke to Sharonda, nurse taking care of Vicki at [facility]. She states that he is insisting Dr. Ling gave him permission to remove the cervical collar. I advised her that he need to remain in the collar for up to 2 more months, and that we ordered a new type of brace for him that may be more comfortable. I stated that he may remove the collar to sleep, but need to wear it otherwise. She was very thankful and appreciative of the information. Kelley Brown RN documented in this encounterKettering [facility] Hospital08-22-2024 History of Present illness Narrative* Mando Ling MD - 01/22/2024 11:00 AM EDT NEUROSURGERY POST-OP NOTE Mando Ling MD [facility] Date of visit: January 22, 2024 Patient Name: Mr.Michael Randle Date of : 1945 Current Age: [age] year old Sex: male MRN/E# [id number] Last Office Visit: Visit date not found SURGERY: C3-C6 PCDF on 01/01/2024 Pre-Surgical Symptoms: fall - central cord syndrome Past Medical/Surgical History: Mr. Randle is a 78 year old male with a past medical history of AAA, DVT (on Eliquis), basal cell carcinoma, benign essential tremor, HTN, BPH, Bruit of right carotid artery, nodule of right lung, venous insufficiency of BLE. No significant surgical history. HPI: Mr. Randle presented to [facility] ED as a transfer from [facility] via flight team for trauma evaluation after a fall in the bathroom after drinking. His biggest complaint at [facility] was left sided neck pain and he was found to have C4 fracture with possible vertebral artery injury, which CTA confirmedVertebral artery dissection. He was then flown from [place] to [facility]. He was on Eliquis for history of DVT, but he stated it had been 2 weeks since he had been taken off that therapy. Neurosurgery was consulted and MRI showed ligamentous injury across C4-C5 with severe canal stenosis, for which he proceeded with the surgery above. His hospital stay was complicated with bilateral arm and hand weakness with intermittent paresthesia. Hemovac drain was removed 01/06/2024. He was advised to continue wearing [place] cervical collar at all times. NIL recommended ASA 81 when able ( POD #7) and to repeat CTA H/N in 8-10 weeks for left vertebral artery dissection. A consult was placed to PM&R and he was discharged to SNF on 01/09/2024. Patient is having their 2 week post operative visit. Patient feels that surgery went well. He presents today in a wheelchair from the facility. He reports compliance with the cervical collar, though he does not like it. He reports minimal neck pain butcontinues with BUE paresthesia and weakness, though it has improved. He has been working with physical therapy which has been helping. He denies any new pain, paresthesia, falls. He does have some remaining right hand sutures that were removed this visit. Incision: Dry and intact, without redness - deni removed this visit, patient tolerated well Current Outpatient Medications Medication Sig Dispense Refill multivitamin (DAILY EVELYN ORAL) Take by mouth once daily. oxycodone HCl (OXYCODONE ORAL) Take 5 mg by mouth every 8 hours as needed. gabapentin (NEURONTIN) 300 mg capsule Take 1 capsule by mouth three times a day for 30 days. ergocalciferol 50,000 unit capsule (VITAMIN D2, DRISDOL) Take 1 capsule by mouth one time a week for 7 doses. 7 capsule 0 lidocaine (SALONPAS) 4 % patch Apply 1 Patch as directed once daily. polyethylene glycol 3350 17 gram packet Take 1 Packet by mouth once daily. Dissolve dose in 4 - 8 ounces of liquid and take as directed. senna-docusate (SENNA-S) 8.6-50 mg per tablet Take 1 tablet by mouth two times a day. thiamine (VITAMIN B1) 100 mg tablet Take 1 tablet by mouth three times a day. melatonin 3 mg tablet Take 3 tablets by mouth daily at bedtime. [id number] 3.5 MG/ML-10,000 UNIT/ML-0.1% EYE DROPS Use 1 Drop in both eyes four times daily. evolocumab (REPATHA SURECLICK) 140 mg/mL pen injector Inject 140 mg subcutaneously every 2 weeks. 6mL 1 acetaminophen (TYLENOL) 325 mg tablet Take 3 tablets by mouth every 6 hours as needed for pain. fluticasone (FLONASE) 50 mcg/actuation nasal spray Use 2 Sprays in each nostril once daily. Rinse mouth after use. 1 Each 2 aspirin, enteric coated (ECOTRIN LOW STRENGTH) 81 mg EC tablet Take 1 tablet by mouth once daily. 0 vitamin with folic acid 1 mg 60 mg iron-1 mg tab Take 1 tablet by mouth once daily. Current Facility-Administered Medications Medication Dose Route Frequency Provider Last Rate Last Admin perflutren lipid microspheres 1.3 mL in NaCl (PF) 0.9% 10 mL injection (DEFINITY) INTRAVENOUS DIRECTED PRN Kanchan Ge MD sodium chloride 0.9 % (flush) 10 mL (BD POSIFLUSH) 10 mL INTRAVENOUS DIRECTED PRN Kanchan Ge MD Objective Review of Systems Constitutional: Negative for chills, fatigue and fever. HENT: Negative for ear pain, hearing loss and tinnitus. Eyes: Negative for photophobia, pain and visual disturbance. Respiratory: Negative for shortness of breath. Cardiovascular: Negative for chest pain. Gastrointestinal: Negative for constipation, diarrhea, nausea and vomiting. Endocrine: Negative for polydipsia, polyphagia and polyuria. Genitourinary: Negative for difficulty urinating, frequency and urgency. Musculoskeletal: Positive for gait problem, neck pain and neck stiffness. Negative for back pain. Skin: Negative for color change. Neurological: Positive for weakness and numbness. Negative for dizziness and light-headedness. Psychiatric/Behavioral: Negative for agitation and confusion. The patient is not nervous/anxious. PHYSICAL EXAM: Mental State : Alert, memory function unremarkable. Attention span and concentration normal for patient's age. Speech normal, no receptive or expressive speech deficit. Recent and remote memory normal. Orientation : Oriented to person, place and time. Cranial Nerves : Grossly intact. Sensory: Normal Sensation in upper and lower extremities and trunk to touch and noxious stimuli. Motor: Normal muscle tone and bulk. No tremor or uncontrollable movements. No spasticity or tremor. Gait and Station: in wheelchair, can walk with assistance STRENGTH: Upper Extremity Strength Exam Right Left Elbow Flexion 4/5 4/5 Elbow Extension 3/5 3/5 Finger Flexion 4+/5 4+/5 Finger Extension 4+/5 4+/5 Finger Abduction 4+/5 4+/5 Lower Extremity Strength Exam Right Left Hip Flexion 4+/5 4+/5 Knee Flexion 5/5 5/5 Knee Extension 5/5 5/5 Dorsiflexion 5/5 5/5 Plantarflexion 5/5 5/5 WOUND ASSESSMENT: Healing well PAIN EVALUATION No data found in the last 1 encounters. Data Review: IMAGING STUDIES: XR cervical: on CD from 01/19/2024: C3-C6 posterior fusion hardware in good position Assessment & Plan: Mr. Randle presents approximately 3 weeks after his posterior cervical laminectomy and fusion for central cord syndrome. He is doing well, and feels that his upper extremity strength is improving withtherapy. He is able to walk with assistance. His incision is well-healed and his x-rays look good. He has good strength in his lower extremities. He is wearing an [place] collar right now, which is uncomfortable for him. I will order a [place] J for him to wear. I would like him to wear this collar for2 more months, but he may take it off to sleep at night. I will see him back in 1 month with additional x-rays to assess his progress. All questions were answered. Attribution: The following portions of the patient's history were reviewed, confirmed, and updated as necessary:allergies, current medications, past family history, past medical history, past social history, past surgical history, problem list, HPI, and ROS obtained by others. Some elements may be copied from a previous office note and have been reviewed/updated where appropriate. All portions reflect current medical decision making from today. The clinical and radiographic findings as well as the risks, benefits and alternatives of treatmenthave been reviewed in detail with the patient. Advised to call the office if symptoms worsen or new symptoms develop. Patient expressed understanding and is in agreement with plan. Mando Ling MD [facility] This note was partially generated using [employer] voice recognition system, and there may be some incorrect words, spellings, and punctuation that were not noted in checking the note before saving. documented in this encounterKettering [facility] Hospital08-22-2024 NoteHNO ID: [id number] Author: MANDO LING MD Service: ? Author Type: Physician Type: Progress Notes Filed: 01/22/2024 11:20 Note Text: NEUROSURGERY POST-OP NOTE Mando Ling MD [facility] Date of visit: January 22, 2024 Patient Name: Mr.Michael Randle Date of : 1945 Current Age: [age] year old Sex: male MRN/E# [id number] Last Office Visit: Visit date not found SURGERY: C3-C6 PCDF on 01/01/2024 Pre-Surgical Symptoms: fall - central cord syndrome Past Medical/Surgical History: Mr. Randle is a 78 year old male with a past medical history of AAA, DVT (on Eliquis), basal cell carcinoma, benign essential tremor, HTN, BPH, Bruit of right carotid artery, nodule of right lung, venous insufficiency of BLE. No significant surgical history. HPI: Mr. Randle presented to [facility] ED as a transfer from [facility] via flight team for trauma evaluation after a fall in the bathroom after drinking. His biggest complaint at [facility] was left sided neck pain and he was found to have C4 fracture with possible vertebral artery injury, which CTA confirmed Vertebral artery dissection. He was then flown from [place] to [facility]. He was on Eliquis for history of DVT, but he stated it had been 2 weeks since he had been taken off that therapy. Neurosurgery was consulted and MRI showed ligamentous injury across C4-C5 with severe canal stenosis, for which he proceeded with the surgery above. His hospital stay was complicated with bilateral arm and hand weakness with intermittent paresthesia. Hemovac drain was removed 01/06/2024. He was advised to continue wearing [place] cervical collar at all times. NIL recommended ASA 81 when able ( POD #7) and to repeat CTA H/N in 8-10 weeks for left vertebral artery dissection. [facility]. Patient is having their 2 week post operative visit. Patient feels that surgery went well. He presents today in a wheelchair from the facility. He reports compliance with the cervical collar, though he does not like it. He reports minimal neck pain but continues with BUE paresthesia and weakness, though it has improved. He has been working with physical therapy which has been helping. He denies any new pain, paresthesia, falls. He does have some remaining right hand sutures that were removed this visit. Incision: Dry and intact, without redness - deni removed this visit, patient tolerated well Current Outpatient Medications Medication Sig Dispense Refill multivitamin (DAILY EVELYN ORAL) Take by mouth once daily. oxycodone HCl (OXYCODONE ORAL) Take 5 mg by mouth every 8 hours as needed. gabapentin (NEURONTIN) 300 mg capsule Take 1 capsule by mouth three times a day for 30 days. ergocalciferol 50,000 unit capsule (VITAMIN D2, DRISDOL) Take 1 capsule by mouth one time a week for 7 doses. 7 capsule 0 lidocaine (SALONPAS) 4 % patch Apply 1 Patch as directed once daily. polyethylene glycol 3350 17 gram packet Take 1 Packet by mouth once daily. Dissolve dose in 4 - 8 ounces of liquid and take as directed. senna-docusate (SENNA-S) 8.6-50 mg per tablet Take 1 tablet by mouth two times a day. thiamine (VITAMIN B1) 100 mg tablet Take 1 tablet by mouth three times a day. melatonin 3 mg tablet Take 3 tablets by mouth daily at bedtime. [id number] 3.5 MG/ML-10,000 UNIT/ML-0.1% EYE DROPS Use 1 Drop in both eyes four times daily. evolocumab (REPATHA SURECLICK) 140 mg/mL pen injector Inject 140 mg subcutaneously every 2 weeks. 6 mL 1 acetaminophen (TYLENOL) 325 mg tablet Take 3 tablets by mouth every 6 hours as needed for pain. fluticasone (FLONASE) 50 mcg/actuation nasal spray Use 2 Sprays in each nostril once daily. Rinse mouth after use. 1 Each 2 aspirin, enteric coated (ECOTRIN LOW STRENGTH) 81 mg EC tablet Take 1 tablet by mouth once daily. 0 vitamin with folic acid 1 mg 60 mg iron-1 mg tab Take 1 tablet by mouth once daily. Current Facility-Administered Medications Medication Dose Route Frequency Provider Last Rate Last Admin perflutren lipid microspheres 1.3 mL in NaCl (PF) 0.9% 10 mL injection (DEFINITY) INTRAVENOUS DIRECTED PRKanchan Grover MD sodium chloride 0.9 % (flush) 10 mL (BD POSIFLUSH) 10 mL INTRAVENOUS DIRECTED PRN Kanchan Ge MD Objective Review of Systems Constitutional: Negative for chills, fatigue and fever. HENT: Negative for ear pain, hearing loss and tinnitus. Eyes: Negative for photophobia, pain and visual disturbance. Respiratory: Negative for shortness of breath. Cardiovascular: Negative for chest pain. Gastrointestinal: Negative for constipation, diarrhea, nausea and vomiting. Endocrine: Negative for polydipsia, polyphagia and polyuria. Genitourinary: Negative for difficulty urinating, frequency and urgency. Musculoskeletal: Positive for gait problem, neck pain and neck stiffness. Negative for (more content not included)...[facility] 01-14-2024 Telephone encounter Note* Telephone Encounter - Luz Elena Alfredo - 01/14/2024 8:30 AM EDT Spoke with Debbie. Rescheduled patient's appointment to next , 01/21. Advised her that Dr. Ling would like patient to have x-rays prior to that appointment. She asked that I fax the order to their facility (fax # [phone]). She will ensure he has them done locally and bring the disc the day of the appointment. [facility]08-14-2024 Miscellaneous Notes* Telephone Encounter - Luz Elena Alfredo - 01/14/2024 8:30 AM EDT Spoke with Debbie. Rescheduled patient's appointment to next , 01/21. Advised her that Dr. Ling would like patient to have x-rays prior to that appointment. She asked that I fax the order to their facility (fax # [phone]). She will ensure he has them done locally and bring the disc the day of the appointment. * Telephone Encounter - Kelley Brown RN - 01/14/2024 8:23 AM EDT Spoke with Debbie in transportation at [facility] for Vicki - She states that she has attempted to call to reschedule appointment on 01/15/2024 to reschedule due to being unable to make this day- no messages have been received by me. I sent this call to [facility], for rescheduling help. Kelley Brown RN [facility] Telephone encounter Note * Telephone Encounter - Kelley Brown RN - 01/14/2024 8:23 AM EDT Spoke with Debbie in transportation at SNF for Vicki - She states that she has attempted to call to reschedule appointment on 01/15/2024 to reschedule due to being unable to make this day- no messages have been received by me. I sent this call to [facility], for rescheduling help. Kelley Brown RN [facility]08-09-2024 NoteHNO ID: [id number] Author: DARREN CRENSHAW LSW Service: Care Management Author Type: Corporate Executive Type: Care Mgt Progress Note Filed: 01/09/2024 12:07 Note Text: CARE MANAGEMENT DISCHARGE NOTE SERVICE DATE: January 09, 2024 SERVICE TIME: 12:06 PM Admission Date: 01/01/2024 LOS: 8 days Discharge Arrangement Discharge Arrangement: Long Term Facility Was an expedited discharge program used?: No Services Arranged Provider Name: [facility] Caregiver Assessment Caregiver is ready, willing and able to meet the patient's needs as recommended by the inter-professional team: Yes Name of Caregiver: staff at [facility] Transportation Arrangements Transportation Arrangements: Ambulance Transportation Agency and Phone #:: [facility] ( [facility] ) [phone] / [phone] Type of Service: BLS Non-emergency Is Patient Medicaid Pending?: No Was transportation financial coverage discussed with family?: Patient Manager Fraud Location: [facility] Destination: [facility] Care Management Responsibility: None Handoff Communication: Handoff to: Primary Care Physician;Other Caregiver Primary Care Physician Name/Phone: summary of care to PCP Other Caregiver Name/Phone: Dimitrisoleksandr Ganesh Additional Information: Discharge Information Row Name ED to Hosp-Admission (Current) from 01/01/2024 in [place] [address] GENERAL SURGERY Long Term Facility Agency [facility] Pt will dc to snf at [facility] today. Auth was received. SW updated the Pt and his son, Alex. All in agreement. There are no dc concerns. DC packet with the chart. Bedside RN updated. Transport arranged for 1700. SIGNATURE: ANAMIKA Vanegas PATIENT NAME: Vicki Randle DATE: January 09, 2024 TIME: 12:06 PM CONTACT #: [phone].[facility]08-09-2024 NoteHNO ID: [id number] Author: DARREN CRENSHAW LSW Service: Care Management Author Type: Corporate Executive Type: Care Mgt Progress Note Filed: 01/09/2024 12:06 Note Text: CARE MANAGEMENT PROGRESS NOTE SERVICE DATE: 01/09/2024 SERVICE TIME: 12:05 PM LOS: 8 days IMM Follow Up Copy Given: Yes Copy given to:: Patient Method: In Person Verbal confirmation SIGNATURE: ANAMIKA Vanegas PATIENT NAME: Vicki Randle DATE: January 09, 2024 TIME: 12:05 PM PAGER/CONTACT #: [phone] [place] [address] 01-09-2024 NoteHNO ID: [id number] Author: NARINDER DEL VALLE APRN.CNP Service: General Surgery Author Type: Nurse Practitioner Type: Progress Notes Filed: 01/09/2024 08:03 Note Text: Trauma Surgery Progress Note SERVICE DATE: 01/09/2024 Trauma Service Pager: For questions or concerns Mon-Fri 6a-5p please page [phone]. After 5pm and on Weekends and Holidays, please page [phone] if in ICU or [phone] if on RNF. SUBJECTIVE: No acute overnight events. Patient is alert and oriented x 3, FC, GADRNER. No new focal deficits. C-collar in place. Patient reports mild cervical neck pain, however, pain is controlled with current regimen. He denies headache, dizziness, lightheadedness, numbness/tingling. Awaiting SNF placement. OBJECTIVE: Vitals: Temp (24hrs), Av.7 ?C (98 ?F), Min:36.5 ?C (97.7 ?F), Max:36.8 ?C (98.2 ?F) BP 183/91 Pulse 90 Temp 36.6 ?C (97.8 ?F) (Oral) Resp 18 Ht 185.4 cm (6' 1) Wt 106 kg (233 lb 11 oz) SpO2 96% BMI 30.83 kg/m? O2 Therapy: Room Air IANDO: Date 01/08/24699 - 01/09/2465801/09/24699 - 01/10/24 0659 Shift 2927-8048 5946-6166 3382-8891 24 Hour Total 5658-3134 6093-5938 5862-3106 24 Hour Total INTAKE PO 597 290 0769 PO 500 425 925 Supplements (mL) 240 240 Shift Total 794 533 6783 OUTPUT Urine 1700 1400 3100 Urine Not Saved. 1 x 1 x Output ( External Collection Device 01/04/241999 [facility]) 1700 1400 3100 Shift Total 1700 1400 3100 Weight (kg) 106 106 106 106 106 106 106 106 MEDICATIONS Current Facility-Administered Medications Medication Dose Route Frequency aspirin 81 mg chewable tab(s) 81 mg ORAL DAILY acetaminophen 975 mg tab(s) (TYLENOL) 975 mg ORAL QID senna-docusate 8.6-50 mg 1 tablet (SENNA-S) 1 tablet ORAL BID thiamine 100 mg tab(s) (VITAMIN B1) 100 mg ORAL TID oxyCODONE IR 5 mg tab(s) (ROXICODONE) 5 mg ORAL q 6 H PRN gabapentin 300 mg cap(s) (NEURONTIN) 300 mg ORAL TID lidocaine 4 % 1 Patch (SALONPAS) 1 Patch TRANSDERMAL DAILY And lidocaine patch - REMOVE OTHER AT BEDTIME And lidocaine - VERIFY PATCH OTHER q 8 H polyethylene glycol 3350 17 g packet 17 g ORAL BID ipratropium-albuterol 3 mL nebulizer solution (DUONEB) 3 mL INHALATION q 4 H PRN melatonin 9 mg tab(s) 9 mg ORAL DAILY (8 PM) heparin 5,000 Units injection 5,000 Units SUBCUTANEOUS q 8 H dextrose 15 gram/32 mL 15 g (TRUEPLUS) 15 g ORAL PRN Or glucagon 1 mg injection 1 mg INTRAMUSCULAR PRN Or dextrose 10% iv bolus 12.5 g INTRAVENOUS PRN ergocalciferol (vitamin D2) 50,000 Units cap(s) (DRISDOL) 50,000 Units ORAL 1/WK vitamin with folic acid 1 mg 1 tablet 1 tablet ORAL DAILY NaCl 0.9% iv flush bag 20 mL INTRAVENOUS PRN ondansetron (PF) 4 mg injection (ZOFRAN) 4 mg INTRAVENOUS q 6 H PRN Labs: Recent Labs 01/08/24 0241 01/07/24 0246 NA 137 141 K 4.3 4.2 CHLOR 103 104 CO2 24 25 BUN 17 14 CREAT 0.88 0.93 GLUC 114* 104* ANION 10 12 CA 8.9 8.7 WBC 9.10 7.40 HB 10.6* 9.9* HCT 34.3* 30.9* PLT 416* 340 PHYSICAL EXAM: Genl: Appears age appropriate. No acute distress. Resting comfortably. Head/Face: Normocephalic. Atraumatic. Eyes: EOMI. Sclera not icteric, not injected Neck: C-collar in place. Resp: No audible wheezes. Breathing is non-labored on RA @96%. CVS: HR as above; 2+ pulses at RA, DP bilat. GI: Abdomen is soft, non-tender, not distended. No peritonitis. MSK: Extremities without clubbing, cyanosis, edema. Normal ROM x2. Skin: Warm and dry. Not jaundiced. Neuro: AANDOx3. BLE strength and sensation normal. BUE with moderate weakness at the shoulders and elbows bilaterally. Motor Operator 4/5 BUE. GARDNER. Psych: Normal mood. Normal affect. Appropriate insight into current situation. ASSESSMENT AND PLAN: Active Hospital Problems Diagnosis Date Noted Trauma 01/01/2024 Vitamin D deficiency 01/07/2024 Chronic BMI 30.0-30.9,adult 01/07/2024 Central cord syndrome (HCC) 01/07/2024 Acute respiratory failure following trauma and surgery (HCC) 01/02/2024 Fall 01/01/2024 Closed nondisplaced fracture of fourth cervical vertebra (HCC) 01/01/2024 Vertebral artery dissection (HCC) 01/01/2024 Spinal cord injury at C1-C4 level (HCC) 01/01/2024 Alcohol abuse 01/01/2024 Hypokalemia 01/01/2024 Obesity, Class I, BMI 30-34.9 10/01/2022 Pulmonary emphysema (HCC) 12/31/2016 Benign hypertension 07/13/2015 78-year old male s/p ground level fall on 12/31/2023 (Trauma transfer) Imaging performed: CT HNCAP, CTA HN, XR R hand, XR L shoulder (12/31, [facility]) CTA HN, MRI C-spine, CXR, XR C-spine, KUB (12/31) CXR, CT C-spine (01/01) CXR (01/05) Traumatic Injuries: C4 fractures (left lamina, left transverse process, left pedicle, and spinous process) Acute spinal cord injury/contusion at the C4-C5 level Cervical spine ligamentous injury Left vertebral artery dissection Operations/Procedures: 1. 01/01/2024 - Central line, arterial line 2. 01/01/2024 - Posterior segmental instrumentation and posterior later (more content not included)...[facility]08-09-2024 NoteHNO ID: [id number] Author: WENDY VILLALTA PA-C Service: Neurosurgery Author Type: Physician Acquisitions Assistant Type: Progress Notes Filed: 01/09/2024 12:19 Note Text: Neurosurgery Progress Note SERVICE DATE: 01/09/2024 SUBJECTIVE: NAEON OBJECTIVE: Vitals: Temp (24hrs), Av.7 ?C (98.1 ?F), Min:36.5 ?C (97.7 ?F), Max:36.8 ?C (98.2 ?F) BP 164/86 Pulse 82 Temp 36.7 ?C (98.1 ?F) (Axillary) Resp 16 Ht 185.4 cm (6' 1) Wt 106 kg (233 lb 11 oz) SpO2 96% BMI 30.83 kg/m? O2 Therapy: Room Air IANDO: Date 01/08/24699 - 01/09/24 0659 01/09/24699 - 01/10/24 0659 Shift 7135-1386 6775-1500 3499-4417 24 Hour Total 8650-9220 7694-9701 9896-3124 24 Hour Total INTAKE PO 734 372 3718 PO 500 425 925 Supplements (mL) 240 240 Shift Total 649 908 7442 OUTPUT Urine 1700 1400 3100 Urine Not Saved. 1 x 1 x Output ( External Collection Device 01/04/241999 [facility]) 1700 1400 3100 Shift Total 1700 1400 3100 Weight (kg) 106 106 106 106 106 106 106 106 MEDICATIONS Current Facility-Administered Medications Medication Dose Route Frequency aspirin 81 mg chewable tab(s) 81 mg ORAL DAILY acetaminophen 975 mg tab(s) (TYLENOL) 975 mg ORAL QID senna-docusate 8.6-50 mg 1 tablet (SENNA-S) 1 tablet ORAL BID thiamine 100 mg tab(s) (VITAMIN B1) 100 mg ORAL TID oxyCODONE IR 5 mg tab(s) (ROXICODONE) 5 mg ORAL q 6 H PRN gabapentin 300 mg cap(s) (NEURONTIN) 300 mg ORAL TID lidocaine 4 % 1 Patch (SALONPAS) 1 Patch TRANSDERMAL DAILY And lidocaine patch - REMOVE OTHER AT BEDTIME And lidocaine - VERIFY PATCH OTHER q 8 H polyethylene glycol 3350 17 g packet 17 g ORAL BID ipratropium-albuterol 3 mL nebulizer solution (DUONEB) 3 mL INHALATION q 4 H PRN melatonin 9 mg tab(s) 9 mg ORAL DAILY (8 PM) heparin 5,000 Units injection 5,000 Units SUBCUTANEOUS q 8 H dextrose 15 gram/32 mL 15 g (TRUEPLUS) 15 g ORAL PRN Or glucagon 1 mg injection 1 mg INTRAMUSCULAR PRN Or dextrose 10% iv bolus 12.5 g INTRAVENOUS PRN ergocalciferol (vitamin D2) 50,000 Units cap(s) (DRISDOL) 50,000 Units ORAL 1/WK vitamin with folic acid 1 mg 1 tablet 1 tablet ORAL DAILY NaCl 0.9% iv flush bag 20 mL INTRAVENOUS PRN ondansetron (PF) 4 mg injection (ZOFRAN) 4 mg INTRAVENOUS q 6 H PRN Labs: Recent Labs 01/08/24 0241 01/07/24 0246 NA 137 141 K 4.3 4.2 CHLOR 103 104 CO2 24 25 BUN 17 14 CREAT 0.88 0.93 GLUC 114* 104* ANION 10 12 CA 8.9 8.7 WBC 9.10 7.40 HB 10.6* 9.9* HCT 34.3* 30.9* PLT 416* 340 Exam: GENERAL: Awake and alert; NAD NEURO: Orientedx3; speech clear and fluent; GARDNER STRENGTH: 1/5 bilateral biceps; 1/5 right triceps; otherwise 4/5 BUE 5/5 BLE HEENT: Normocephalic; atraumatic LUNGS: Unlabored breathing NECK/BACK: Incision C/D/I CARDIAC: Rate and rhythm as above ABDOMEN: Soft, non-tender, non-distended EXTREMITIES: No deformities, No edema SKIN: Skin color normal; Temperature normal; no rashes or lesions ASSESSMENT AND PLAN: 78 year old male ETOH GLF with resultant central cord syndrome and unstable C4 fx 12/31 - C3-6 PCDF 01/05 - drain removed and pt transferred to [facility] - Neuro stable - NNI - Pain control: Gabapentin (increase), Tylenol, Lido patches scheduled; Oxy prn - DVT ppx: SQH - Collar AAT - Continue PT/OT - PMANDR c/s- continue recs - Dispo to rehab today Parts of this note may have been copied from one of my previous notes and remain pertinent. The documentation has been reviewed and edited as necessary to support the clinical decision making for today's visit. SIGNATURE: Wendy Villalta PA-C PATIENT NAME: Vicki Randle DATE: January 09, 2024 TIME: 6:52 AM [facility]ager: [facility] NoteHNO ID: [id number] Author: DARREN CRENSHAW LSW Service: Care Management Author Type: Corporate Executive Type: Care Mgt Progress Note Filed: 01/08/2024 11:15 Note Text: CARE MANAGEMENT PROGRESS NOTE SERVICE DATE: 01/08/2024 SERVICE TIME: 11:13 AM LOS: 7 days Post-Acute Discharge Planning Patient Goal(s): General wellness, Less pain [place] of Choice Explained: Discharge Planning Participant(s): Patient;Family Patient/Family Comments: spoke with Pt's sonAlex Anticipated # of Days Until Discharge: 1 Transport at Discharge: Transportation Arrangements: Ambulance Transportation Agency and Phone #:: [facility] ( [facility] ) [phone] / [phone] Type of Service: BLS Non-emergency Destination: [facility] in [place] Financial Care Management Responsibility: None Needs Prior to Discharge: Needs Prior to Discharge: Accepting Facility, Bed Availability, Insurance Authorization Post-Acute Discharge Plan: Pt has been accepted at 3 snfs. Provided the Pt and son the snf choices. The FOC is [facility] in [place]. SW tasked for auth to be started today. SNF attestation completed today. Tasked for 7000. Pt is anticipated to be ready for dc when auth is received. There are no dc concerns. SIGNATURE: ANAMIKA Vanegas PATIENT NAME: Vicki Randle DATE: January 08, 2024 TIME: 11:12 AM PAGER/CONTACT #: [phone] 01-08-2024 NoteHNO ID: [id number] Author: RAN WALKER DO Service: Care Management Author Type: Resident Type: Care Mgt Progress Note Filed: 01/08/2024 10:48 Note Text: CARE MANAGEMENT PROGRESS NOTE SERVICE DATE: 01/08/2024 SERVICE TIME: 10:37 AM LOS: 7 days Physician Certification of Less Than 30 Days Skilled Needs Earliest Possible Discharge Date: 01/08/24 To the best of my knowledge, all information provided about the individual is a true and an accurate reflection of Vicki Randle's needs. I certify that following the inpatient level of care, a post-acute nursing facility stay is required for less than 30 days related to the condition(s) for which the patient was treated during the inpatient level of care: Principal Problem: Trauma Active Problems: Benign hypertension Pulmonary emphysema (HCC) Obesity, Class I, BMI 30-34.9 Fall Closed nondisplaced fracture of fourth cervical vertebra (HCC) Vertebral artery dissection (HCC) Spinal cord injury at C1-C4 level (HCC) Alcohol abuse Hypokalemia Acute respiratory failure following trauma and surgery (HCC) Vitamin D deficiency BMI 30.0-30.9,adult Central cord syndrome (HCC) Resolved Problems: * No resolved hospital problems. * Attending Physician: Ran Walker, [facility]08-08-2024 NoteHNO ID: [id number] Author: TOMEKA MOTTA PA-C Service: Neurosurgery Author Type: Physician Acquisitions Assistant Type: Progress Notes Filed: 01/08/2024 09:07 Note Text: Neurosurgery Progress Note SERVICE DATE: 01/08/2024 SUBJECTIVE: C/o posterior deep neck pain but just medicated. Frustrated that he cannot picking supervisor his coffee and is requiring assistance. C/o burning pain to arms and hands intermittently, particularly with use. Eating well (with assist). Denies SOB. States overall feels better today. OBJECTIVE: Vitals: Temp (24hrs), Av.8 ?C (98.3 ?F), Min:36.4 ?C (97.5 ?F), Max:37.6 ?C (99.6 ?F) BP 150/81 Pulse 83 Temp 36.8 ?C (98.2 ?F) (Oral) Resp 16 Ht 185.4 cm (6' 1) Wt 106 kg (233 lb 11 oz) SpO2 94% BMI 30.83 kg/m? O2 Therapy: Room Air IANDO: Date 01/07/24699 - 01/08/24 0659 01/08/24699 - 01/09/24 0659 Shift 1525-9305 9355-0258 3477-0385 24 Hour Total 9115-7156 9029-7477 9519-2022 24 Hour Total INTAKE PO 707 310 0289 200 200 PO 440 476 916 200 200 Supplements (mL) 240 240 480 Shift Total 404 136 8592 200 200 OUTPUT Urine 550 6397 900 2363 Urine Incontinence/Not Saved 1 x 1 x Output ( External Collection Device 01/04/241999 [facility]) 550 1199 540 3113 # of BMs Number of BMs 1 x 1 x Shift Total 550 9129 366 8379 Weight (kg) 106 106 106 106 106 106 106 106 MEDICATIONS Current Facility-Administered Medications Medication Dose Route Frequency aspirin 81 mg chewable tab(s) 81 mg ORAL DAILY acetaminophen 975 mg tab(s) (TYLENOL) 975 mg ORAL QID gabapentin 100 mg cap(s) (NEURONTIN) 100 mg ORAL TID senna-docusate 8.6-50 mg 1 tablet (SENNA-S) 1 tablet ORAL BID thiamine 100 mg tab(s) (VITAMIN B1) 100 mg ORAL TID oxyCODONE IR 5 mg tab(s) (ROXICODONE) 5 mg ORAL q 6 H PRN lidocaine 4 % 1 Patch (SALONPAS) 1 Patch TRANSDERMAL DAILY And lidocaine patch - REMOVE OTHER AT BEDTIME And lidocaine - VERIFY PATCH OTHER q 8 H phosphorus 250 mg tab(s) (K PHOS NEUTRAL) 250 mg ORAL PC and HS polyethylene glycol 3350 17 g packet 17 g ORAL BID QUEtiapine 50 mg tab(s) (SEROquel) 50 mg ORAL AT BEDTIME ipratropium-albuterol 3 mL nebulizer solution (DUONEB) 3 mL INHALATION q 4 H PRN melatonin 9 mg tab(s) 9 mg ORAL DAILY (8 PM) heparin 5,000 Units injection 5,000 Units SUBCUTANEOUS q 8 H dextrose 15 gram/32 mL 15 g (TRUEPLUS) 15 g ORAL PRN Or glucagon 1 mg injection 1 mg INTRAMUSCULAR PRN Or dextrose 10% iv bolus 12.5 g INTRAVENOUS PRN ergocalciferol (vitamin D2) 50,000 Units cap(s) (DRISDOL) 50,000 Units ORAL 1/WK vitamin with folic acid 1 mg 1 tablet 1 tablet ORAL DAILY NaCl 0.9% iv flush bag 20 mL INTRAVENOUS PRN ondansetron (PF) 4 mg injection (ZOFRAN) 4 mg INTRAVENOUS q 6 H PRN Labs: Recent Labs 01/08/24 0241 01/07/24 0246 01/06/24 0218 NA 137 141 137 K 4.3 4.2 4.3 CHLOR 103 104 101 CO2 24 25 27 BUN 17 14 8* CREAT 0.88 0.93 0.89 GLUC 114* 104* 105* ANION 10 12 9 CA 8.9 8.7 8.7 MG -- -- 2.1 P -- -- 4.4 WBC 9.10 7.40 6.86 HB 10.6* 9.9* 9.8* HCT 34.3* 30.9* 31.0* PLT 416* 340 311 Exam: GENERAL: Awake and alert; NAD; cooperative; pleasant NEURO: Orientedx3; speech clear and fluent STRENGTH: bilateral bicep strength lacking, rt more so than lt; moves deltoids/triceps/wrists well and has strong country sales manager bilaterally HEENT: Normocephalic; wounds healing NECK: Incision C/D/I ASSESSMENT AND PLAN: 78 year old male ETOH GLF with resultant central cord syndrome and unstable C4 fx 8/ - C3-6 PCDF 01/05 - drain removed and pt transferred to [facility] - neuro stable - no pending imaging - pain control: Gabapentin (increase), Tylenol, Lido patches scheduled; Oxy prn - DVT ppx: SQH - collar AAT - continue therapy - PMANDR assessment pending - dispo to [facility] in the works Parts of this note may have been copied from one of my previous notes and remain pertinent. The documentation has been reviewed and edited as necessary to support the clinical decision making for today's visit. SIGNATURE: Tomeka Motta PA-C PATIENT NAME: Vicki Randle DATE: January 08, 2024 TIME: 8:58 AM Pager: [phone]08-08-2024 NoteHNO ID: [id number] Author: ADITYA MIKE APRN.TABLEMAN Service: General Surgery Author Type: Nurse Practitioner Type: Progress Notes Filed: 01/08/2024 09:55 Note Text: Trauma Surgery Progress Note SERVICE DATE: 01/08/2024 Trauma Service Pager: For questions or concerns Mon-Fri 6a-5p please page [phone]. After 5pm and on Weekends and Holidays, please page [phone] if in ICU or [phone] if on RNF. SUBJECTIVE: NAEON. Patient without complaints this morning. Pain is controlled. Tolerating diet. Agreeable to SNF placement. OBJECTIVE: Vitals: Temp (24hrs), Av.8 ?C (98.2 ?F), Min:36.4 ?C (97.5 ?F), Max:37.6 ?C (99.6 ?F) BP 137/74 Pulse 99 Temp 36.5 ?C (97.7 ?F) (Oral) Resp 20 Ht 185.4 cm (6' 1) Wt 106 kg (233 lb 11 oz) SpO2 96% BMI 30.83 kg/m? O2 Therapy: Room Air IANDO: Date 01/07/24699 - 01/08/2465801/08/24699 - 01/09/24 0659 Shift 0419-1245 8909-0212 5327-6080 24 Hour Total 1747-3016 0994-4971 5435-4252 24 Hour Total INTAKE PO 612 323 3039 PO 440 476 916 Supplements (mL) 240 240 480 Shift Total 307 377 4878 OUTPUT Urine 550 6841 140 9068 Urine Incontinence/Not Saved 1 x 1 x Output ( External Collection Device 01/04/241999 [facility]) 550 6297 995 1389 # of BMs Number of BMs 1 x 1 x Shift Total 550 1123 649 7145 Weight (kg) 106 106 106 106 106 106 106 106 MEDICATIONS Current Facility-Administered Medications Medication Dose Route Frequency aspirin 81 mg chewable tab(s) 81 mg ORAL DAILY acetaminophen 975 mg tab(s) (TYLENOL) 975 mg ORAL QID senna-docusate 8.6-50 mg 1 tablet (SENNA-S) 1 tablet ORAL BID thiamine 100 mg tab(s) (VITAMIN B1) 100 mg ORAL TID oxyCODONE IR 5 mg tab(s) (ROXICODONE) 5 mg ORAL q 6 H PRN gabapentin 300 mg cap(s) (NEURONTIN) 300 mg ORAL TID lidocaine 4 % 1 Patch (SALONPAS) 1 Patch TRANSDERMAL DAILY And lidocaine patch - REMOVE OTHER AT BEDTIME And lidocaine - VERIFY PATCH OTHER q 8 H phosphorus 250 mg tab(s) (K PHOS NEUTRAL) 250 mg ORAL PC and HS polyethylene glycol 3350 17 g packet 17 g ORAL BID QUEtiapine 50 mg tab(s) (SEROquel) 50 mg ORAL AT BEDTIME ipratropium-albuterol 3 mL nebulizer solution (DUONEB) 3 mL INHALATION q 4 H PRN melatonin 9 mg tab(s) 9 mg ORAL DAILY (8 PM) heparin 5,000 Units injection 5,000 Units SUBCUTANEOUS q 8 H dextrose 15 gram/32 mL 15 g (TRUEPLUS) 15 g ORAL PRN Or glucagon 1 mg injection 1 mg INTRAMUSCULAR PRN Or dextrose 10% iv bolus 12.5 g INTRAVENOUS PRN ergocalciferol (vitamin D2) 50,000 Units cap(s) (DRISDOL) 50,000 Units ORAL 1/WK vitamin with folic acid 1 mg 1 tablet 1 tablet ORAL DAILY NaCl 0.9% iv flush bag 20 mL INTRAVENOUS PRN ondansetron (PF) 4 mg injection (ZOFRAN) 4 mg INTRAVENOUS q 6 H PRN Labs: Recent Labs 01/08/24 0241 01/07/24 0246 01/06/24 0218 NA 137 141 137 K 4.3 4.2 4.3 CHLOR 103 104 101 CO2 24 25 27 BUN 17 14 8* CREAT 0.88 0.93 0.89 GLUC 114* 104* 105* ANION 10 12 9 CA 8.9 8.7 8.7 MG -- -- 2.1 P -- -- 4.4 WBC 9.10 7.40 6.86 HB 10.6* 9.9* 9.8* HCT 34.3* 30.9* 31.0* PLT 416* 340 311 PHYSICAL EXAM: Genl: Appears age appropriate. No acute distress. Resting comfortably. Head/Face: Normocephalic. Atraumatic. Eyes: EOMI. Sclera not icteric, not injected Neck: In hard cervical collar. Resp: No audible wheezes. Breathing is non-labored on RA @96%. CVS: HR as above; 2+ pulses at RA, DP bilat. GI: Abdomen is soft, non-tender, not distended. No peritonitis. MSK: Extremities without clubbing, cyanosis, edema. Normal ROM x2. Skin: Warm and dry. Not jaundiced. Neuro: AANDOx3. BLE strength and sensation normal. BUE with moderate weakness at the shoulders and elbows bilaterally. Motor Operator is 3/5 on left, 4/5 on right. GARDNER. Psych: Normal mood. Normal affect. Appropriate insight into current situation. ASSESSMENT AND PLAN: Active Hospital Problems Diagnosis Date Noted Trauma 01/01/2024 Vitamin D deficiency 01/07/2024 Chronic BMI 30.0-30.9,adult 01/07/2024 Central cord syndrome (HCC) 01/07/2024 Acute respiratory failure following trauma and surgery (HCC) 01/02/2024 Fall 01/01/2024 Closed nondisplaced fracture of fourth cervical vertebra (HCC) 01/01/2024 Vertebral artery dissection (HCC) 01/01/2024 Spinal cord injury at C1-C4 level ([facility]) 01/01/2024 Alcohol abuse 01/01/2024 Hypokalemia 01/01/2024 Obesity, Class I, BMI 30-34.9 10/01/2022 Pulmonary emphysema ([facility]) 12/31/2016 Benign hypertension 07/13/2015 78 year old male s/p ground level fall on 12/31/2023, transferred from [facility] ED. Imaging performed: 01/01/2024 - CT HNCAP, CTA HN, XR R hand, XR L shoulder @ [facility] 01/01/2024 - CTA HN, MRI C-spine, CXR, XR C-spine, KUB 01/02/2024 - CXR, CT C-spine 01/06/2024 - CXR Traumatic Injuries: C4 fractures (left lamina, left transverse process, left pedicle, and spinous process) Acute spinal cord injury/contusion at the C4-C5 level Cervical spine ligamentous injury Left vertebral a (more content not included)...[facility] 01-07-2024 NoteHNO ID: [id number] Author: DARREN CRENSHAW LSW Service: Care Management Author Type: Corporate Executive Type: Care Mgt Progress Note Filed: 01/07/2024 15:23 Note Text: CARE MANAGEMENT PROGRESS NOTE SERVICE DATE: 01/07/2024 SERVICE TIME: 3:19 PM LOS: 6 days Needs Prior to Discharge: Accepting Facility;Bed Availability;Insurance Authorization SW met with the Pt this morning to discuss dc planning. Pt requested SW to reach out to his son for guidance. SW also sent referral to [facility] SNF, as they denied for AR but this location is the preferred location for the Pt. [facility] snf denied this afternoon d/t no bed availability. Sw spoke with the Pt's son. He would like to pursue a snf that is closer to home instead of an acute rehab that is far from home. Education on the different LOC was given and location is more important to the Pt and family. SW discussed FOC list for snf options closer to home. Pt's son is in agreement with any of the options available within a 10 mile radius. Referrals sent and will await responses and accepting snf. Once we have an accepting snf, Precert will be started. SIGNATURE: ANAMIKA Vanegas PATIENT NAME: Vicki Randle DATE: January 07, 2024 TIME: 3:19 PM PAGER/CONTACT #: [phone] 01-07-2024 NoteHNO ID: [id number] Author: DELON BARR PA-C Service: General Surgery Author Type: Physician Acquisitions Assistant Type: Progress Notes Filed: 01/07/2024 12:23 Note Text: Trauma Surgery Progress Note SERVICE DATE: 01/07/2024 Trauma Service Pager: For questions or concerns Mon-Fri 6a-5p please page [phone]. After 5pm and on Weekends and Holidays, please page [phone] if in ICU or [phone] if on RNF. SUBJECTIVE: Patient was transferred out of the NSICU yesterday afternoon. Overnight notes reviewed. He was evaluated by the corporate concierge surgery team for SOB (see their note). This morning he was awake and alert, and he followed all commands. He continues to endorse mild neck pain that is currently controlled. His SOB has improved but still present. He denied any current HALL, CP, N/V, ABD pain, fevers, chills, or cough. OBJECTIVE: Vitals: Temp (24hrs), Av.7 ?C (98 ?F), Min:36.4 ?C (97.5 ?F), Max:37.1 ?C (98.8 ?F) BP 150/83 Pulse 61 Temp 36.4 ?C (97.5 ?F) (Axillary) Resp 16 Ht 185.4 cm (6' 1) Wt 106 kg (233 lb 11 oz) SpO2 96% BMI 30.83 kg/m? O2 Therapy: Room Air IANDO: Date 01/06/24699 - 01/07/2465801/07/24 07 - 01/08/24 0659 Shift 5684-0071 7524-2893 9152-4302 24 Hour Total 8785-8111 5749-0128 8273-2229 24 Hour Total INTAKE PO 805 805 200 200 PO 805 805 200 200 Shift Total 805 805 200 200 OUTPUT Urine 800 0 1100 1900 Urine Incontinence/Not Saved 1 x 1 x Urine Not Saved. 1 x 1 x Output ( External Collection Device 01/04/241999 [facility]) 800 0 1100 1900 Tubes 0 0 Drain/Tube Output ([REMOVED] Drain/Tube 01/01/24 2125 [facility] Hemovac Posterior Neck 01/06/24 1650) 0 0 # of BMs Number of BMs 1 x 1 x Shift Total 800 0 1100 1900 Weight (kg) 106 106 106 106 106 106 106 106 MEDICATIONS Current Facility-Administered Medications Medication Dose Route Frequency oxyCODONE IR 5 mg tab(s) (ROXICODONE) 5 mg ORAL/FEEDING TUBE q 4 H PRN lidocaine 4 % 1 Patch (SALONPAS) 1 Patch TRANSDERMAL DAILY And lidocaine patch - REMOVE OTHER AT BEDTIME And lidocaine - VERIFY PATCH OTHER q 8 H phosphorus 250 mg tab(s) (K PHOS NEUTRAL) 250 mg ORAL PC and HS polyethylene glycol 3350 17 g packet 17 g ORAL BID QUEtiapine 50 mg tab(s) (SEROquel) 50 mg ORAL AT BEDTIME ipratropium-albuterol 3 mL nebulizer solution (DUONEB) 3 mL INHALATION q 4 H PRN melatonin 9 mg tab(s) 9 mg ORAL DAILY (8 PM) heparin 5,000 Units injection 5,000 Units SUBCUTANEOUS q 8 H dextrose 15 gram/32 mL 15 g (TRUEPLUS) 15 g ORAL PRN Or glucagon 1 mg injection 1 mg INTRAMUSCULAR PRN Or dextrose 10% iv bolus 12.5 g INTRAVENOUS PRN ergocalciferol (vitamin D2) 50,000 Units cap(s) (DRISDOL) 50,000 Units ORAL 1/WK acetaminophen 975 mg tab(s) (TYLENOL) 975 mg ORAL/FEEDING TUBE QID gabapentin 100 mg cap(s) (NEURONTIN) 100 mg ORAL/FEEDING TUBE TID vitamin with folic acid 1 mg 1 tablet 1 tablet ORAL DAILY senna-docusate 8.6-50 mg 1 tablet (SENNA-S) 1 tablet ORAL/FEEDING TUBE BID NaCl 0.9% iv flush bag 20 mL INTRAVENOUS PRN thiamine 100 mg tab(s) (VITAMIN B1) 100 mg ORAL/FEEDING TUBE TID ondansetron (PF) 4 mg injection (ZOFRAN) 4 mg INTRAVENOUS q 6 H PRN Labs: Recent Labs 01/07/24 0246 01/06/24 0218 01/05/24 0257 NA 141 137 139 K 4.2 4.3 4.0 CHLOR 104 101 103 CO2 25 27 28 BUN 14 8* 8* CREAT 0.93 0.89 0.80 GLUC 104* 105* 104* ANION 12 9 8 CA 8.7 8.7 8.7 MG -- 2.1 2.2 P -- 4.4 2.7 WBC 7.40 6.86 7.71 HB 9.9* 9.8* 10.2* HCT 30.9* 31.0* 32.2* PLT 340 311 272 PHYSICAL EXAM: Genl: Appears age appropriate. No acute distress. Resting comfortably. Head/Face: Normocephalic. Atraumatic. Eyes: EOMI. Sclera not icteric, not injected Neck: In hard cervical collar. Resp: No audible wheezes. Breathing is non-labored on RA @96%. CVS: HR as above; 2+ pulses at RA, DP bilat. GI: Abdomen is soft, non-tender, not distended. No peritonitis. MSK: Extremities without clubbing, cyanosis, edema. Normal ROM x 2. Skin: Warm and dry. Not jaundiced. Neuro: AANDOx3. BLE strength and sensation normal. BUE with moderate weakness at the shoulders and elbows bilaterally. Motor Operator is 3/5 bilaterally. GARDNER. GCS15. Psych: Normal mood. Normal affect. Appropriate insight into current situation. ASSESSMENT AND PLAN: Active Hospital Problems Diagnosis Date Noted Trauma 01/01/2024 Vitamin D deficiency 01/07/2024 Chronic BMI 30.0-30.9,adult 01/07/2024 Acute respiratory failure following trauma and surgery ([facility]) 01/02/2024 Fall 01/01/2024 Closed nondisplaced fracture of fourth cervical vertebra ([facility]) 01/01/2024 Vertebral artery dissection ([facility]) 01/01/2024 Spinal cord injury at C1-C4 level ([facility]) 01/01/2024 Alcohol abuse 01/01/2024 Hypokalemia 01/01/2024 Obesity, Class I, BMI 30-34.9 10/01/2022 Pulmonary emphysema ([facility]) 12/31/2016 Benign hypertension 07/13/2015 78 year old male s/p ground level fall on 12/31/2023. Trauma transfer from [facility] (more content not included)...[facility]08-07-2024 Note HNO ID: [id number] Author: TOMKEA MOTTA PA-C Service: Neurosurgery Author Type: Physician Acquisitions Assistant Type: Progress Notes Filed: 01/07/2024 11:23 Note Text: Neurosurgery Progress Note SERVICE DATE: 01/07/2024 SUBJECTIVE: Dozing in bed but awakens easily. States just worked 'hard' with therapy and his legs are sore. Neck pain is currently controlled. C/o intermittent paresthesias throughout the arms, not currently. States unable to do FMS or ADL. OBJECTIVE: Vitals: Temp (24hrs), Av.7 ?C (98.1 ?F), Min:36.4 ?C (97.5 ?F), Max:37.1 ?C (98.8 ?F) BP 138/99 Pulse 82 Temp 36.4 ?C (97.5 ?F) (Oral) Resp 18 Ht 185.4 cm (6' 1) Wt 106 kg (233 lb 11 oz) SpO2 97% BMI 30.83 kg/m? O2 Therapy: Room Air IANDO: Date 01/06/24699 - 01/07/2465801/07/24699 - 01/08/24 0659 Shift 1166-9416 5913-3871 0469-8437 24 Hour Total 1840-0677 4063-8907 1652-9589 24 Hour Total INTAKE PO 805 805 200 200 PO 805 805 200 200 Shift Total 805 805 200 200 OUTPUT Urine 800 0 1100 1900 Urine Incontinence/Not Saved 1 x 1 x Urine Not Saved. 1 x 1 x Output ( External Collection Device 01/04/241999 [facility]) 800 0 1100 1900 Tubes 0 0 Drain/Tube Output ([REMOVED] Drain/Tube 01/01/24 212 [facility] Hemovac Posterior Neck 01/06/24 1650) 0 0 # of BMs Number of BMs 1 x 1 x Shift Total 800 0 1100 1900 Weight (kg) 106 106 106 106 106 106 106 106 MEDICATIONS Current Facility-Administered Medications Medication Dose Route Frequency oxyCODONE IR 5 mg tab(s) (ROXICODONE) 5 mg ORAL/FEEDING TUBE q 4 H PRN lidocaine 4 % 1 Patch (SALONPAS) 1 Patch TRANSDERMAL DAILY And lidocaine patch - REMOVE OTHER AT BEDTIME And lidocaine - VERIFY PATCH OTHER q 8 H phosphorus 250 mg tab(s) (K PHOS NEUTRAL) 250 mg ORAL PC and HS polyethylene glycol 3350 17 g packet 17 g ORAL BID QUEtiapine 50 mg tab(s) (SEROquel) 50 mg ORAL AT BEDTIME ipratropium-albuterol 3 mL nebulizer solution (DUONEB) 3 mL INHALATION q 4 H PRN melatonin 9 mg tab(s) 9 mg ORAL DAILY (8 PM) heparin 5,000 Units injection 5,000 Units SUBCUTANEOUS q 8 H dextrose 15 gram/32 mL 15 g (TRUEPLUS) 15 g ORAL PRN Or glucagon 1 mg injection 1 mg INTRAMUSCULAR PRN Or dextrose 10% iv bolus 12.5 g INTRAVENOUS PRN ergocalciferol (vitamin D2) 50,000 Units cap(s) (DRISDOL) 50,000 Units ORAL 1/WK acetaminophen 975 mg tab(s) (TYLENOL) 975 mg ORAL/FEEDING TUBE QID gabapentin 100 mg cap(s) (NEURONTIN) 100 mg ORAL/FEEDING TUBE TID vitamin with folic acid 1 mg 1 tablet 1 tablet ORAL DAILY senna-docusate 8.6-50 mg 1 tablet (SENNA-S) 1 tablet ORAL/FEEDING TUBE BID NaCl 0.9% iv flush bag 20 mL INTRAVENOUS PRN thiamine 100 mg tab(s) (VITAMIN B1) 100 mg ORAL/FEEDING TUBE TID ondansetron (PF) 4 mg injection (ZOFRAN) 4 mg INTRAVENOUS q 6 H PRN Labs: Recent Labs 01/07/24 0246 01/06/24 0218 01/05/24 0257 NA 141 137 139 K 4.2 4.3 4.0 CHLOR 104 101 103 CO2 25 27 28 BUN 14 8* 8* CREAT 0.93 0.89 0.80 GLUC 104* 105* 104* ANION 12 9 8 CA 8.7 8.7 8.7 MG -- 2.1 2.2 P -- 4.4 2.7 WBC 7.40 6.86 7.71 HB 9.9* 9.8* 10.2* HCT 30.9* 31.0* 32.2* PLT 340 311 272 Exam: GENERAL: Awake and alert; NAD; cooperative; pleasant NEURO: Orientedx3; speech clear and fluent STRENGTH: BLE w/o specific deficits; bilateral country sales manager moderate 4/5, intrinsics 3/5; RUE: unable to engage right bicep or deltoid but can shrug shoulders bilaterally; right tricep and wrist 3/5; LUE: unable to engage deltoid; bicep/tricep/wrist 3/5 HEENT: facial and forehead abrasions healing well; perrl/eomi; no facial droop LUNGS: Unlabored breathing NECK: Incision C/D/I, collar present ASSESSMENT AND PLAN: 78 year old male ETOH GLF with resultant central cord syndrome and unstable C4 fx 8/ - C3-6 PCDF 8/6 - drain removed and pt transferred to [facility] - neuro as above - UE exam fluctuates - no pending imaging - pain control: Gabapentin, Tylenol, Lido patches scheduled; Oxy prn - DVT ppx: SQH - collar AAT - continue therapy - c/s to [facility] - dispo to AR planned Parts of this note may have been copied from one of my previous notes and remain pertinent. The documentation has been reviewed and edited as necessary to support the clinical decision making for today's visit. SIGNATURE: Tomeka Motta PA-C PATIENT NAME: Vicki Randle DATE: January 07, 2024 TIME: 10:56 AM [phone] NoteHNO ID: [id number] Author: JESENIA JACOBS DO Service: General Surgery Author Type: Resident Type: Plan of Care Filed: 01/07/2024 00:57 Note Text: Plan of Care Surgery paged for SOB. Pt seen at bedside, family member, son by bedside. Pt resting comfortably in bed, no labored breathing saturating 98%. Pt complains of SOB, no pain in his chest. Denies CP, N, V. Denies any pain. BP 148/71 Pulse 70 Temp 37.1 ?C (98.7 ?F) (Oral) Resp 16 Ht 185.4 cm (6' 1) Wt 106 kg (233 lb 11 oz) SpO2 96% BMI 30.83 kg/m? PHYSICAL EXAM: Exam: GENERAL: No distress, Alert NEURO: AANDOx3 LUNGS: Unlabored breathing, no accessory muscle usage, no stridor, no wheezing CARDIAC: Regular rate and rhythm as above PLAN SOB - CXR, pending - breathing treatments, duoned ordered - continue ISS, [id number] General Surgery Jesenia Avila DO 01/06/2024 8:09 PM Plan of Care 12:56 AM - CXR, stable small left pleural effusion with adjacent probable atelectasis. - Continue ISS - monitor vitals BP 168/89 Pulse 91 Temp 37.1 ?C (98.8 ?F) (Oral) Resp 16 Ht 185.4 cm (6' 1) Wt 106 kg (233 lb 11 oz) SpO2 95% BMI 30.83 kg/m? General Surgery Jesenia Avila DO 01/07/2024 12:56 [facility]08-06-2024 NoteHNO ID: [id number] Author: SUSANNE LAWLER LSW Service: Care Management Author Type: Corporate Executive Type: Care Mgt Progress Note Filed: 01/06/2024 14:54 Note Text: CARE MANAGEMENT PROGRESS NOTE SERVICE DATE: 01/06/2024 SERVICE TIME: 2:53 PM LOS: 5 days [place] of Choice Given: Yes Level of Care Discussed: Inpatient Rehab Facility Financial Disclosure Provided: Yes Financial Disclosure Comments: Disclosed [facility] affiliation Provider List: Rehab Facility Provider list within the patient's requested geographic area shared with the patient/family: Yes within: Other: See Comment (40 miles) of zip code: [address] Quality and resource use metrics shared with the patient that are relevant to the patient's goals of care and treatment preferences:: Yes Metrics: Potentially Preventable 30-day Post Discharge Readmission Rates;Incidence of Major Falls [facility] is not able to accept pt. SW met with pt at bedside and provided FOC list. Will need choices to send additional referrals. SIGNATURE: ANAMIKA Wilkinson PATIENT NAME: Vicki Randle DATE: January 06, 2024 TIME: 2:53 PM PAGER/CONTACT #: [phone] NoteHNO ID: [id number] Author: ALEIDA PHILLIPS DO Service: General Surgery Author Type: Resident Type: Plan of Care Filed: 01/06/2024 14:20 Note Text: SICU Floor Transfer Plan of Care Presentation description: 78 year old male with PMHx of HLD, GERD, Smoking (30 yr PAD), DVT, HTN, AAA s/p EVAR. Patient was a trauma transfer from [facility] for ground-level fall with positive EtOH on 12/30. Traumatic Injuries: - Distal radius fx (likely chornic) - C4 fx L lamina, L TP, L pedicle, and post SP ext across L vert foramen - L Vertebral artery dissection Major ICU events: 12/31 SICU admission, R subclavian CVC, a-line, OR with spine for C3-6 PCDF; was kept in ICU for MAP goal > 85 until POD #5. Briefly required levo for pressor support but this was weaned and he auto mapped well 01/05 Hemovac drain removed by spine team, MAP goal completed, central line removed Consultants/recommendations: NSY spine: WBAT, c-collar ([place] J) at all times, okay for SQH, okay for ASA on POD#7 (01/07) NIL: ASA 81 when able and repeat CTA H/N in 8-10 weeks for L vert dissection PT/OT: acute rehab Outstanding issues: Start ASA on POD #7 H/O AAA s/p EVAR, CT imaging on arrival with possible endoleak, will need outpatient vascular surgery follow up Aleida Phillips DO 01/06/2024 2:14 [facility]08-06-2024 NoteHNO ID: [id number] Author: PRESTON ABEL APRN.[employer] [employer] Service: Neurosurgery Author Type: Nurse Practitioner Type: Procedures Filed: 01/06/2024 14:12 Note Text: Drain Removal: HV drain drain removal and closure. Vicki Randle is a 78 year old male with ALLERGIES Allergen Reactions Lipitor [Atorvastat* Intolerance Rosuvastatin Calcium Intolerance Swqgzqk-Kng-Pgw Red* Myalgia s/p PCDF with hemovac drain. Output today was 100 from the HV in the past 24 hours. I discussed the drain output with Dr. Ling and after reviewing the imaging it was determined the drain could be removed. The suture was cut from the drain and the drain was carefully removed intact, sterile gauze was applied to the drainage site. Using betadine the skin around the drain was cleansed. 5 ml of lidocaine 1% was injected to anesthetize the site and 3-0 monocryl was used to close the drain site using one figure of eight stitch. Post closure the drain site was cleansed and checked to ensure there was no leaking from the drain site. The patient tolerated the procedure well. Preston Abel APRN.[facility]08-06-2024 NoteHNO ID: [id number] Author: RONY SAENZ MD Service: General Surgery Author Type: Physician Type: Progress Notes Filed: 01/06/2024 10:37 Note Text: Trauma Surgery Progress Note SERVICE DATE: 01/06/2024 Trauma Service Pager: For questions or concerns Mon-Fri 6a-5p please page [phone]. After 5pm and on Weekends and Holidays, please page [phone] if in ICU or [phone] if on RNF. SUBJECTIVE: Reporting continued left upper arm numbness as well as bilateral arm and shoulder pain. Weakness is slightly better in the left arm. Patient has been getting up to the chair. MAPs consistently >85 overnight. Opens eyes to voice, follows in all 4. OBJECTIVE: Vitals: Temp (24hrs), Av.6 ?C (97.9 ?F), Min:36.2 ?C (97.2 ?F), Max:36.8 ?C (98.3 ?F) BP 145/76 Pulse 90 Temp 36.5 ?C (97.7 ?F) (Temporal) Resp 12 Ht 185.4 cm (6' 1) Wt 106 kg (233 lb 11 oz) SpO2 95% BMI 30.83 kg/m? O2 Therapy: Nasal Cannula IANDO: Date 01/05/24699 - 01/06/2465801/06/24699 - 01/07/24 0659 Shift 4323-7072 7900-6227 6957-4640 24 Hour Total 7554-0939 0843-6818 8552-6203 24 Hour Total INTAKE PO 250 250 PO 250 250 IV 450 100 550 Volume (mL) (sodium phosphate 45 mmol in D5W 250 mL) 250 250 Volume (mL) (calcium gluconate iv piggyback 2 g in NaCl (iso-osmotic) 100 mL) 200 100 300 Shift Total 700 100 800 OUTPUT Urine 057 274 6244 Void (ml) 200 200 Urine Incontinence/Not Saved 2 x 2 x Output ( External Collection Device 01/04/241999 [facility]) 600 250 850 Tubes 0 0 100 100 Drain/Tube Output (Drain/Tube 01/01/242124 [facility] Hemovac Posterior Neck) 0 0 100 100 # of BMs Number of BMs 0 x 0 x Shift Total 800 358 620 8624 Weight (kg) 105.4 105.4 106 106 106 106 106 106 MEDICATIONS: Current Facility-Administered Medications Medication Dose Route Frequency oxyCODONE IR 5 mg tab(s) (ROXICODONE) 5 mg ORAL/FEEDING TUBE q 4 H PRN lidocaine 4 % 1 Patch (SALONPAS) 1 Patch TRANSDERMAL DAILY And lidocaine - VERIFY PATCH OTHER q 8 H phosphorus 250 mg tab(s) (K PHOS NEUTRAL) 250 mg ORAL PC and HS melatonin 9 mg tab(s) 9 mg ORAL DAILY (8 PM) QUEtiapine 50 mg tab(s) (SEROquel) 50 mg ORAL AT BEDTIME methocarbamol 500 mg tab(s) (ROBAXIN) 500 mg ORAL/FEEDING TUBE TID PRN polyethylene glycol 3350 17 g packet 17 g ORAL DAILY haloperidol lactate 5 mg short-acting injection (HALDOL) 5 mg INTRAVENOUS q 6 H PRN heparin 5,000 Units injection 5,000 Units SUBCUTANEOUS q 8 H fentaNYL 50 mcg/mL 25 mcg injection (SUBLIMAZE) 25 mcg INTRAVENOUS q 2 H PRN dextrose 15 gram/32 mL 15 g (TRUEPLUS) 15 g ORAL PRN Or glucagon 1 mg injection 1 mg INTRAMUSCULAR PRN Or dextrose 10% iv bolus 12.5 g INTRAVENOUS PRN ergocalciferol (vitamin D2) 50,000 Units cap(s) (DRISDOL) 50,000 Units ORAL 1/WK acetaminophen 975 mg tab(s) (TYLENOL) 975 mg ORAL/FEEDING TUBE QID gabapentin 100 mg cap(s) (NEURONTIN) 100 mg ORAL/FEEDING TUBE TID vitamin with folic acid 1 mg 1 tablet 1 tablet ORAL DAILY senna-docusate 8.6-50 mg 1 tablet (SENNA-S) 1 tablet ORAL/FEEDING TUBE BID NaCl 0.9% iv flush bag 20 mL INTRAVENOUS PRN thiamine 100 mg tab(s) (VITAMIN B1) 100 mg ORAL/FEEDING TUBE TID potassium chloride 20-40 mEq oral powder (KLOR-CON) 20-40 mEq ORAL/FEEDING TUBE PRN Or potassium chloride iv piggyback 20 mEq/100 mL 20 mEq INTRAVENOUS PRN sodium phosphate 30 mmol in D5W 250 mL 30 mmol INTRAVENOUS PRN(NO DISPENSE) Or sodium phosphate 45 mmol in D5W 250 mL 45 mmol INTRAVENOUS PRN(NO DISPENSE) magnesium sulfate iv piggyback in sterile water 2 g 50 mL 2 g INTRAVENOUS PRN calcium gluconate iv piggyback 2 g in NaCl (iso-osmotic) 100 mL 2 g INTRAVENOUS PRN(NO DISPENSE) ondansetron (PF) 4 mg injection (ZOFRAN) 4 mg INTRAVENOUS q 6 H PRN Labs: Recent Labs 01/06/24 0218 01/05/24 0257 NA 137 139 K 4.3 4.0 CHLOR 101 103 CO2 27 28 BUN 8* 8* CREAT 0.89 0.80 GLUC 105* 104* ANION 9 8 CA 8.7 8.7 MG 2.1 2.2 P 4.4 2.7 WBC 6.86 7.71 HB 9.8* 10.2* HCT 31.0* 32.2* PLT 311 272 PHYSICAL EXAM: General: NAD HEENT: Normocephalic. Atraumatic. Neck: [place] in place; Hemovac with bloody drainage CV: RRR on tele, maps 90s Pulm: even, unlabored GI/: abdomen soft, non-tender, non-distended Skin/Extremities: Grossly normal. Symmetrical. No edema, deformity, coloration changes. 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 Spinal cord injury at C1-C4 level ([facility]) 01/01/2024 Alcohol abuse 01/01/2024 Hypokalemia 01/01/2024 Obesity, Class I, BMI 30-34.9 10/01/2022 Pulmonary emphysema ([facility]) 12/31/2016 Benign hypertension 07/13/2015 78 year old male w (more content not included)...[facility] 01-05-2024 NoteHNO ID: [id number] Author: SUSANNE LAWLER LSW Service: Care Management Author Type: Corporate Executive Type: Care Mgt Initial Assessment Filed: 01/05/2024 14:44 Note Text: CARE MANAGEMENT: ASSESSMENT AND DISCHARGE PLAN SERVICE DATE: January 05, 2024 SERVICE TIME: 2:32 PM PCP: Kanchan Ge MD Primary Contact: Extended Emergency Contact Information Primary Emergency Contact: Alex Randle Mobile Relation: Son Admission Status: Inpatient Insurance Provider: [employer] PPO Discharge Planning requested by: Per Department Practice Potential Transition Plans To Be Determined;Rehab Facility;Home OT/PT Advance Directives Current Advance Directive: None Management Assistant Attempted to Assist with AD Completion: Yes Action: Education Provided Current Living Arrangements and Support Lives with: Children Type of Residence: Private Residence (House) Support: Children How do you manage to accomplish the following: Independent: Transportation to appointments/community;Medication Management;Going to the bathroom;Meals/Meal Prep;Dress;Bathe/Shower;Ambulation Current Services/Equipment Current Post-Acute Service(s): DME Current DME Type: Walker, Shower seat, Crutches Discharge Planning Patient Goal(s): General wellness, Be able to go home [place] of [place] Explained: [place] of [place] Given: Yes Level of Care Discussed: Inpatient Rehab Facility Are you interested in bedside delivery of your medications? No Discharge Planning Participant(s): Children Patient/Family Comments: Caregiver Assessment: Caregiver is ready, willing and able to meet the patient's needs as recommended by the inter-professional team: Yes Name of Caregiver: Willie- Kris Transport at Discharge: Transportation Arrangements: Car Needs Prior to Discharge: Needs Prior to Discharge: To Be Determined;OT/PT Evaluation;Accepting Facility Post-Acute Discharge Plan: ALCOHOL USE HISTORY: 1. Consumption Screening Male 5 or more drinks in one session:No More than 2 drinks per day:No More than 14 drinks per week:No 2. Have you ever felt you should cut down on your drinking? Yes 3. Have people annoyed you by criticizing your drinking? Yes 4. Have you ever felt bad or guilty about drinking? No 5. 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 No 6. CAGE Screening? Yes 7. If patient has a positive screen CAGE or Consumption, what is their total number of drinks per day? Pt reports one glass of liquor 8. Date of last alcohol use: 12/30 ALCOHOL/DRUG HISTORY: Alcohol Lab Results Positive for ETOH Has drinking/drug use affected your work performance? No Has drinking/drug use caused you to miss work? No Has drinking/drug use affected your relationships? No Has drinking/drug use affected your health? No Has drinking/drug use had legal consequences? Yes and DUI Do you have a history of substance abuse treatment? No MENTAL HEALTH HISTORY: Do you have a history of mental health issues? No Have you ever had any behavioral problems/anger management issues? No PSYCHOSOCIAL ASSESSMENT: Current living situation: Home with youngest son, Kris Social supports: Sons Do you have a family history of alcohol/drug use? No Do you have a family history of mental health issues? No Significant childhood events (trauma, abuse, neglect)? No Current or past history of abuse/neglect? No Cultural beliefs related to alcohol/drug use? No Self care issues? No Difficulty communicating with others? No Financial difficulties? No Currently employed? No and Retired Student? No Past or present ? No PLAN/RECOMMENDATIONS: Patient Education: Blood alcohol level and/or toxicology screen upon admission and Link between drinking and injury or medical condition Recommended/Reviewed Abstinence for the following: Operating vehicle or machinery Motivation to seek treatment at this time: Low Barriers to seeking treatment: No barriers identified Treatment Referral: Declined AOD resources Other Referrals: PCP VILLA met with pt at bedside. Pt lives at home, his son Kris stays with him. 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 Pt admits to drinking a glass of liquor every night. Pt declined AOD resources. Discussed PT/OT evals. Pt is not sure he wants to go to acute rehab. Pt is agreeable to SW sending his referral to [facility]. +PCP, +DME, +Rx at [facility]. Pt's son can transport pt home. SIGNATURE: ANAMIKA Wilkinson PATIENT NAME: Vicki Randle DATE: January 05, 2024 TIME: 2:32 PM CONTACT [phone] HNO ID: [id number] Author: RONY SAENZ MD Service: General Surgery Author Type: Physician Type: Progress Notes Filed: 01/05/2024 10:38 Note Text: Trauma Surgery Progress Note SERVICE DATE: 01/05/2024 Trauma Service Pager: For questions or concerns Mon-Fri 6a-5p please page [phone]. After 5pm and on Weekends and Holidays, please page [phone] if in ICU or [phone] if on RNF. SUBJECTIVE: Reporting continued left upper arm numbness as well as bilateral arm and shoulder pain. Now has been reporting 1-2 days of right arm weakness. Has been getting up to the chair and states he would like to work with PT if this can coincide with his pain meds in order for him to participate. However, he declined PT work yesterday. MAPs consistently >85 overnight. Opens eyes to voice, follows in all 4. OBJECTIVE: Vitals: Temp (24hrs), Av.4 ?C (97.5 ?F), Min:36.4 ?C (97.5 ?F), Max:36.4 ?C (97.5 ?F) BP 179/99 Pulse 108 Temp 36.4 ?C (97.5 ?F) (Temporal) Resp 14 Ht 185.4 cm (6' 1) Wt 107.8 kg (237 lb 10.5 oz) SpO2 91% BMI 31.35 kg/m? O2 Therapy: Room Air IANDO: Date 01/04/24699 - 01/05/24 0601/05/24699 - 01/06/24 0659 Shift 8094-6555 9012-6825 8176-4908 24 Hour Total 0278-9029 5393-6334 5901-8587 24 Hour Total INTAKE PO 356 663 880 5335 PO 356 766 430 7724 IV 450 205 655 IV Volume (ml) 205 205 Volume (mL) (sodium phosphate 45 mmol in D5W 250 mL) 250 250 Volume (mL) (calcium gluconate iv piggyback 2 g in NaCl (iso-osmotic) 100 mL) 200 200 Shift Total 806 955 780 5498 OUTPUT Urine 1875 1325 2500 5700 Void (ml) 1875 1325 3200 Output ( External Collection Device 01/04/241999 [facility]) 2500 2500 Tubes 75 50 75 200 Drain/Tube Output (Drain/Tube 01/01/245 [facility] Hemovac Posterior Neck) 75 50 75 200 # of BMs Number of BMs 0 x 0 x Shift Total 1950 1375 2575 5900 Weight (kg) 107.8 107.8 107.8 107.8 107.8 107.8 107.8 107.8 MEDICATIONS: Current Facility-Administered Medications Medication Dose Route Frequency heparin 5,000 Units injection 5,000 Units SUBCUTANEOUS q 8 H fentaNYL 50 mcg/mL 25 mcg injection (SUBLIMAZE) 25 mcg INTRAVENOUS q 2 H PRN dextrose 15 gram/32 mL 15 g (TRUEPLUS) 15 g ORAL PRN Or glucagon 1 mg injection 1 mg INTRAMUSCULAR PRN Or dextrose 10% iv bolus 12.5 g INTRAVENOUS PRN insulin lispro injection (rapid acting) (ADMElog) SUBCUTANEOUS q 6 H ergocalciferol (vitamin D2) 50,000 Units cap(s) (DRISDOL) 50,000 Units ORAL 1/WK acetaminophen 975 mg tab(s) (TYLENOL) 975 mg ORAL/FEEDING TUBE QID gabapentin 100 mg cap(s) (NEURONTIN) 100 mg ORAL/FEEDING TUBE TID vitamin with folic acid 1 mg 1 tablet 1 tablet ORAL DAILY senna-docusate 8.6-50 mg 1 tablet (SENNA-S) 1 tablet ORAL/FEEDING TUBE BID oxyCODONE IR 5-10 mg tab(s) (ROXICODONE) 5-10 mg ORAL/FEEDING TUBE q 6 H PRN methocarbamol 500 mg tab(s) (ROBAXIN) 500 mg ORAL/FEEDING TUBE TID NaCl 0.9% iv flush bag 20 mL INTRAVENOUS PRN sodium chloride 0.9 % (flush) 2-10 mL (BD POSIFLUSH) 2-10 mL INTRAVENOUS DIRECTED PRN thiamine 100 mg tab(s) (VITAMIN B1) 100 mg ORAL/FEEDING TUBE TID potassium chloride 20-40 mEq oral powder (KLOR-CON) 20-40 mEq ORAL/FEEDING TUBE PRN Or potassium chloride iv piggyback 20 mEq/100 mL 20 mEq INTRAVENOUS PRN sodium phosphate 30 mmol in D5W 250 mL 30 mmol INTRAVENOUS PRN(NO DISPENSE) Or sodium phosphate 45 mmol in D5W 250 mL 45 mmol INTRAVENOUS PRN(NO DISPENSE) magnesium sulfate iv piggyback in sterile water 2 g 50 mL 2 g INTRAVENOUS PRN calcium gluconate iv piggyback 2 g in NaCl (iso-osmotic) 100 mL 2 g INTRAVENOUS PRN(NO DISPENSE) ondansetron (PF) 4 mg injection (ZOFRAN) 4 mg INTRAVENOUS q 6 H PRN pantoprazole 20 mg oral liquid (PROTONIX) 20 mg ORAL/FEEDING TUBE DAILY (6 AM) Labs: Recent Labs 01/05/24 0257 01/04/24 0352 NA 139 135* K 4.0 3.9 CHLOR 103 100 CO2 28 27 BUN 8* 9 CREAT 0.80 0.84 GLUC 104* 112* ANION 8 8 CA 8.7 8.3* MG 2.2 1.8 P 2.7 2.9 WBC 7.71 8.42 HB 10.2* 9.9* HCT 32.2* 31.1* PLT 272 230 PHYSICAL EXAM: General: NAD HEENT: Normocephalic. Atraumatic. Neck: [place] in place; Hemovac with bloody drainage CV: RRR on tele, maps 90s Pulm: even, unlabored GI/: abdomen soft, non-tender, non-distended Skin/Extremities: Grossly normal. Symmetrical. No edema, deformity, coloration changes. 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 Spinal cord injury at C1-C4 level ([facility]) 01/01/2024 Alcohol abuse 01/01/2024 Hypokalemia 01/01/2024 Obesity, Class I, BMI 30-34.9 10/01/2022 Pulmonary emphysema ([facility]) 12/31/2016 Benign hypertension 07/13/2015 (more content not included)...[facility]08-04-2024 NoteHNO ID: [id number] Author: RONY SAENZ MD Service: General Surgery Author Type: Physician Type: Progress Notes Filed: 01/04/2024 16:06 Note Text: Trauma Surgery Progress Note SERVICE DATE: 01/04/2024 Trauma Service Pager: For questions or concerns Mon-Fri 6a-5p please page [phone]. After 5pm and on Weekends and Holidays, please page [phone] if in ICU or [phone] if on RNF. SUBJECTIVE: Patient extubated. Reporting continued left upper arm numbness as well as bilateral arm and shoulder pain. Has been getting up to the chair and states he would like to work with PT if this can coincide with his pain meds in order for him to participate. MAPs consistently >85 overnight. Opens eyes to voice, follows in all 4. OBJECTIVE: Vitals: Temp (24hrs), Av.8 ?C (98.2 ?F), Min:36.5 ?C (97.7 ?F), Max:37 ?C (98.6 ?F) BP 150/78 Pulse 90 Temp 37 ?C (98.6 ?F) (Oral) Resp 10 Ht 185.4 cm (6' 1) Wt 107.8 kg (237 lb 10.5 oz) SpO2 88% BMI 31.35 kg/m? O2 Therapy: Room Air IANDO: Date 01/03/24699 - 01/04/2465801/04/24699 - 01/05/24 0659 Shift 8876-1532 2770-9215 0370-3773 24 Hour Total 7452-4307 6915-7130 3024-7279 24 Hour Total INTAKE PO 240 300 100 640 120 120 PO 240 300 100 640 120 120 IV 400 50 450 Volume (mL) (thiamine 200 mg in NaCl 0.9% 50 mL (VITAMIN B1)) 50 50 100 Volume (mL) (sodium phosphate 45 mmol in D5W 250 mL) 250 250 Volume (mL) (calcium gluconate iv piggyback 2 g in NaCl (iso-osmotic) 100 mL) 100 100 Shift Total 640 260 397 0382 120 120 OUTPUT Urine 706 587 9228 2725 975 975 Void (ml) 846 048 2695 2475 975 975 Amount Voided Before Bladder Scan 250 250 Urine Incontinence/Not Saved 1 x 1 x Tubes 50 100 150 300 Drain/Tube Output (Drain/Tube 01/01/24 2125 [facility] Hemovac Posterior Neck) 50 100 150 300 Shift Total 907 988 2980 3025 975 975 Weight (kg) 113.5 113.5 113.5 113.5 107.8 107.8 107.8 107.8 MEDICATIONS: Current Facility-Administered Medications Medication Dose Route Frequency heparin 5,000 Units injection 5,000 Units SUBCUTANEOUS q 8 H fentaNYL 50 mcg/mL 25 mcg injection (SUBLIMAZE) 25 mcg INTRAVENOUS q 2 H PRN dextrose 15 gram/32 mL 15 g (TRUEPLUS) 15 g ORAL PRN Or glucagon 1 mg injection 1 mg INTRAMUSCULAR PRN Or dextrose 10% iv bolus 12.5 g INTRAVENOUS PRN insulin lispro injection (rapid acting) (ADMElog) SUBCUTANEOUS q 6 H ergocalciferol (vitamin D2) 50,000 Units cap(s) (DRISDOL) 50,000 Units ORAL 1/WK acetaminophen 975 mg tab(s) (TYLENOL) 975 mg ORAL/FEEDING TUBE QID gabapentin 100 mg cap(s) (NEURONTIN) 100 mg ORAL/FEEDING TUBE TID vitamin with folic acid 1 mg 1 tablet 1 tablet ORAL DAILY senna-docusate 8.6-50 mg 1 tablet (SENNA-S) 1 tablet ORAL/FEEDING TUBE BID oxyCODONE IR 5-10 mg tab(s) (ROXICODONE) 5-10 mg ORAL/FEEDING TUBE q 6 H PRN methocarbamol 500 mg tab(s) (ROBAXIN) 500 mg ORAL/FEEDING TUBE TID pseudoephedrine 60 mg (SUDAFED) 60 mg ORAL q 6 H NaCl 0.9% iv flush bag 20 mL INTRAVENOUS PRN sodium chloride 0.9 % (flush) 2-10 mL (BD POSIFLUSH) 2-10 mL INTRAVENOUS DIRECTED PRN thiamine 100 mg tab(s) (VITAMIN B1) 100 mg ORAL/FEEDING TUBE TID potassium chloride 20-40 mEq oral powder (KLOR-CON) 20-40 mEq ORAL/FEEDING TUBE PRN Or potassium chloride iv piggyback 20 mEq/100 mL 20 mEq INTRAVENOUS PRN sodium phosphate 30 mmol in D5W 250 mL 30 mmol INTRAVENOUS PRN(NO DISPENSE) Or sodium phosphate 45 mmol in D5W 250 mL 45 mmol INTRAVENOUS PRN(NO DISPENSE) magnesium sulfate iv piggyback in sterile water 2 g 50 mL 2 g INTRAVENOUS PRN calcium gluconate iv piggyback 2 g in NaCl (iso-osmotic) 100 mL 2 g INTRAVENOUS PRN(NO DISPENSE) ondansetron (PF) 4 mg injection (ZOFRAN) 4 mg INTRAVENOUS q 6 H PRN pantoprazole 20 mg oral liquid (PROTONIX) 20 mg ORAL/FEEDING TUBE DAILY (6 AM) Labs: Recent Labs 01/04/24 0352 01/03/24 0401 01/02/24 0407 01/02/24 0206 01/01/24 2100 01/01/242048 NA 135* 134* -- < > -- -- K 3.9 3.9 -- < > -- -- CHLOR 100 103 -- < > -- -- CO2 27 24 -- < > -- -- BUN 9 12 -- < > -- -- CREAT 0.84 0.93 -- < > -- -- GLUC 112* 98 -- < > -- -- ANION 8 7* -- < > -- -- CA 8.3* 7.9* -- < > -- -- MG 1.8 2.2 -- < > -- -- P 2.9 3.3 -- < > -- -- WBC 8.42 12.20* -- < > -- -- HB 9.9* 9.3* -- < > -- -- HCT 31.1* 28.7* -- < > -- -- PLT 230 192 -- < > -- -- LACT -- -- 1.8 -- -- -- PH -- -- 7.39 -- -- -- PCO2 -- -- 39 -- 40.8 27.3* PO2 -- -- 176* -- 244* 240* BE -- -- -- -- -2 -11* HCO3 -- -- 23 -- 23.3 14.4* < > = values in this interval not displayed. PHYSICAL EXAM: General: NAD HEENT: Normocephalic. Atraumatic. Neck: [place] in place; Hemovac with bloody drainage CV: RRR on tele, maps 90s Pulm: even, unlabored GI/: abdomen soft, non-tender, non-distended Skin/Extremities: Grossly normal. Symmetrical. No edema, deformity, coloration changes. Peripheral pulses present all extremities ASSESSMENT AND PLAN: Assessment Active Hospital Pr (more content not included)...[facility] 01-03-2024 NoteHNO ID: [id number] Author: RONY SAENZ MD Service: General Surgery Author Type: Physician Type: Progress Notes Filed: 01/03/2024 10:32 Note Text: Trauma Surgery Progress Note SERVICE DATE: 01/03/2024 Trauma Service Pager: For questions or concerns Mon-Fri 6a-5p please page [phone]. After 5pm and on Weekends and Holidays, please page [phone] if in ICU or [phone] if on RNF. SUBJECTIVE: Patient now extubated. Reporting continued left upper arm numbness. Left arm weakness on exam. MAPs consistently >85 overnight. Opens eyes to voice, follows in all 4. OBJECTIVE: Vitals: Temp (24hrs), Av.3 ?C (97.3 ?F), Min:36 ?C (96.8 ?F), Max:36.7 ?C (98.1 ?F) BP 156/87 Pulse 101 Temp 36.7 ?C (98.1 ?F) (Oral) Resp 14 Ht 185.4 cm (6' 1) Wt 113.3 kg (249 lb 12.5 oz) SpO2 96% BMI 32.95 kg/m? O2 Therapy: Nasal Cannula IANDO: Date 01/02/24699 - 01/03/2465801/03/24699 - 01/04/2459 Shift 6108-6354 9950-1041 9417-5651 24 Hour Total 6855-9706 2155-9325 6207-1557 24 Hour Total INTAKE IV 422.2 806 1228.2 Volume (mL) 10.5 10.5 Volume (mL) 13.1 13.1 IV Volume (ml) 368 486 854 Volume (mL) (ceFAZolin iv piggyback 2 g in D5W (iso-osmotic) 100 mL (ANCEF)) 100 100 Volume (mL) (sodium phosphate 45 mmol in D5W 250 mL) 30.6 220 250.6 Irrigants 150 150 Irrigant/Flush Amount In mL (I/O) ([REMOVED] GI/ Feeding 01/01/242299 [facility] Gastric Right Mouth 16 Fr 01/02/24 010) 150 150 Gastric Tube 114 114 Supplements/Additives mL (I/O) ([REMOVED] GI/ Feeding 01/01/242299 [facility] Gastric Right Mouth 16 Fr 01/02/2499) 114 114 Shift Total 686.2 806 1492.2 OUTPUT Urine 300 210 510 Output ([REMOVED] Indwelling Urinary Catheter 01/01/241829 [facility] Schreiber 16 Fr 01/02/241999) 300 210 510 Tubes 80 90 40 210 Drain/Tube Output (Drain/Tube 01/01/242124 [facility] Hemovac Posterior Neck) 80 90 40 210 # of BMs Number of BMs 0 x 0 x 0 x Shift Total 380 300 40 720 Weight (kg) 113.3 113.3 113.3 113.3 113.3 113.3 113.3 113.3 MEDICATIONS: Current Facility-Administered Medications Medication Dose Route Frequency fentaNYL 50 mcg/mL 25 mcg injection (SUBLIMAZE) 25 mcg INTRAVENOUS q 2 H PRN dextrose 15 gram/32 mL 15 g (TRUEPLUS) 15 g ORAL PRN Or glucagon 1 mg injection 1 mg INTRAMUSCULAR PRN Or dextrose 10% iv bolus 12.5 g INTRAVENOUS PRN insulin lispro injection (rapid acting) (ADMElog) SUBCUTANEOUS q 6 H ergocalciferol (vitamin D2) 50,000 Units cap(s) (DRISDOL) 50,000 Units ORAL 1/WK acetaminophen 975 mg tab(s) (TYLENOL) 975 mg ORAL/FEEDING TUBE QID gabapentin 100 mg cap(s) (NEURONTIN) 100 mg ORAL/FEEDING TUBE TID senna-docusate 8.6-50 mg 1 tablet (SENNA-S) 1 tablet ORAL/FEEDING TUBE BID oxyCODONE IR 5-10 mg tab(s) (ROXICODONE) 5-10 mg ORAL/FEEDING TUBE q 6 H PRN methocarbamol 500 mg tab(s) (ROBAXIN) 500 mg ORAL/FEEDING TUBE TID pseudoephedrine 60 mg (SUDAFED) 60 mg ORAL q 6 H NORepinephrine iv infusion 16 mg in D5W 250 mL (LEVOPHED) 0.6-10 mcg/min INTRAVENOUS CONTINUOUS NaCl 0.9% iv flush bag 20 mL INTRAVENOUS PRN sodium chloride 0.9 % (flush) 2-10 mL (BD POSIFLUSH) 2-10 mL INTRAVENOUS DIRECTED PRN thiamine 200 mg in NaCl 0.9% 50 mL (VITAMIN B1) 200 mg INTRAVENOUS q 8 H potassium chloride 20-40 mEq oral powder (KLOR-CON) 20-40 mEq ORAL/FEEDING TUBE PRN Or potassium chloride iv piggyback 20 mEq/100 mL 20 mEq INTRAVENOUS PRN sodium phosphate 30 mmol in D5W 250 mL 30 mmol INTRAVENOUS PRN(NO DISPENSE) Or sodium phosphate 45 mmol in D5W 250 mL 45 mmol INTRAVENOUS PRN(NO DISPENSE) magnesium sulfate iv piggyback in sterile water 2 g 50 mL 2 g INTRAVENOUS PRN calcium gluconate iv piggyback 2 g in NaCl (iso-osmotic) 100 mL 2 g INTRAVENOUS PRN(NO DISPENSE) ondansetron (PF) 4 mg injection (ZOFRAN) 4 mg INTRAVENOUS q 6 H PRN pantoprazole 20 mg oral liquid (PROTONIX) 20 mg ORAL/FEEDING TUBE DAILY (6 AM) Labs: Recent Labs 01/02/24 0407 01/02/24 0206 08209901/01/24204801/01/24195601/01/24 0614 NA -- 138 -- -- -- 137 K -- 4.9 -- -- -- 3.6* CHLOR -- 107 -- -- -- 100 CO2 -- 21* -- -- -- 22 BUN -- 10 -- -- -- 7* CREAT -- 0.86 -- -- -- 1.00 GLUC -- 207* -- -- -- 107* ANION -- 10 -- -- -- 15 CA -- 8.6 -- -- -- 8.8 MG -- 1.7 -- -- -- -- P -- 3.4 -- -- -- -- ALB -- -- -- -- -- 3.5* AST -- -- -- -- -- 27 ALT -- -- -- -- -- 10 ALKPHOS -- -- -- -- -- 160* TBILI -- -- -- -- -- 0.2 WBC -- 10.80 -- -- -- 10.04 HB -- 10.9* -- -- -- 10.8* HCT -- 34.1* -- -- -- 35.5* PLT -- 195 -- -- -- 314 LACT 1.8 -- -- -- -- -- INR -- -- -- -- -- 0.9 PH 7.39 -- -- -- -- -- PCO2 39 -- 40.8 27.3* < > -- PO2 176* -- 244* 240* < > -- BE -- -- -2 -11* < > -- HCO3 23 -- 23.3 14.4* < > -- < > = values in this interval not displayed. PHYSICAL EXAM: General: NAD HEENT: Normocephalic. Atraumatic. Neck: [place] in place; Hemovac with bloody drainage CV: RRR (more content not included)...[facility]08-02-2024 NoteHNO ID: [id number] Author: RONY SAENZ MD Service: General Surgery Author Type: Physician Type: Progress Notes Filed: 01/02/2024 10:30 Note Text: Trauma Surgery Progress Note SERVICE DATE: 01/02/2024 Trauma Service Pager: For questions or concerns Mon-Fri 6a-5p please page [phone]. After 5pm and on Weekends and Holidays, please page [phone] if in ICU or [phone] if on RNF. SUBJECTIVE: Remains intubated overnight. Hemoglobin stable after 1 unit of blood. Opens eyes to voice, follows in all 4. Is on levophed and propofol, MAPs in 90s. Possible SBT today, will start weaning sedation OBJECTIVE: Vitals: Temp (24hrs), Av.2 ?C (97.1 ?F), Min:35.4 ?C (95.7 ?F), Max:36.6 ?C (97.9 ?F) BP 158/73 Pulse (!) 59 Temp 36.3 ?C (97.3 ?F) Resp 16 Ht 185.4 cm (6' 1) Wt 113.4 kg (250 lb) SpO2 100% BMI 32.98 kg/m? O2 Therapy: Ventilator IANDO: Date 01/01/24699 - 01/02/24 0659 01/02/24699 - 01/03/24 0659 Shift 1973-3330 1970-3213 6925-1613 24 Hour Total 5898-6234 5822-7283 4478-0984 24 Hour Total INTAKE PO 500 500 PO 500 500 IV 100 2104.1 716.9 2921 Volume (mL) 4.1 4.1 Volume (mL) 18.3 18.3 IV Volume (ml) 100 100 Volume (mL) (ceFAZolin iv piggyback 2 g in D5W (iso-osmotic) 100 mL (ANCEF)) 100 100 Volume (mL) (thiamine 200 mg in NaCl 0.9% 50 mL (VITAMIN B1)) 153.6 153.6 Volume (mL) (calcium gluconate iv piggyback 2 g in NaCl (iso-osmotic) 100 mL) 200 200 Volume (mL) (ceFAZolin iv piggyback 2 g in D5W (iso-osmotic) 100 mL (ANCEF)) 100 100 Volume (mL) (lactated ringers iv infusion) 245 245 Volume (mL) (NaCl 0.9% iv infusion) 1000 1000 Volume (mL) (lactated ringers iv infusion) 1000 1000 Blood Products 1400 1400 Infusion Complete Volume (mL) (RBC Transfusion Instruction) 350 350 Infusion Complete Volume (mL) (RBC Transfusion Instruction) 350 350 Infusion Complete Volume (mL) (RBC Transfusion Instruction) 350 350 Infusion Complete Volume (mL) (RBC Transfusion Instruction) 350 350 Gastric Tube 120 120 Supplements/Additives mL (I/O) ([REMOVED] GI/ Feeding 01/01/24 Mouth 01/01/24 2200) 40 40 Supplements/Additives mL (I/O) (GI/ Feeding 01/01/24 2300 [facility] Gastric Right Mouth 16 Fr) 80 80 Shift Total 100 4004.1 836.9 4941 OUTPUT Urine 200 400 600 Void (ml) 0 0 OR Urine Output 200 200 Output ( Indwelling Urinary Catheter 01/01/24 1830 [facility] Schreiber 16 Fr) 400 400 Tubes 100 100 Drain/Tube Output (Drain/Tube 01/01/24 2125 [facility] Hemovac Posterior Neck) 100 100 # of BMs Number of BMs 0 x 0 x Blood 1000 1000 Estimated Blood loss 1000 1000 Shift Total 2250 279 5663 Weight (kg) 106.2 106.2 113.4 113.4 113.4 113.4 113.4 113.4 MEDICATIONS: Current Facility-Administered Medications Medication Dose Route Frequency NaCl 0.9% iv flush bag 20 mL INTRAVENOUS PRN gabapentin 100 mg cap(s) (NEURONTIN) 100 mg ORAL TID sodium chloride 0.9 % (flush) 2-10 mL (BD POSIFLUSH) 2-10 mL INTRAVENOUS DIRECTED PRN thiamine 200 mg in NaCl 0.9% 50 mL (VITAMIN B1) 200 mg INTRAVENOUS q 8 H vitamin with folic acid 1 mg 1 tablet 1 tablet ORAL DAILY folic acid 1 mg tab(s) 1 mg ORAL DAILY acetaminophen 975 mg tab(s) (TYLENOL) 975 mg ORAL QID senna-docusate 8.6-50 mg 1 tablet (SENNA-S) 1 tablet ORAL BID potassium chloride 20-40 mEq oral powder (KLOR-CON) 20-40 mEq ORAL/FEEDING TUBE PRN Or potassium chloride iv piggyback 20 mEq/100 mL 20 mEq INTRAVENOUS PRN sodium phosphate 30 mmol in D5W 250 mL 30 mmol INTRAVENOUS PRN(NO DISPENSE) Or sodium phosphate 45 mmol in D5W 250 mL 45 mmol INTRAVENOUS PRN(NO DISPENSE) magnesium sulfate iv piggyback in sterile water 2 g 50 mL 2 g INTRAVENOUS PRN calcium gluconate iv piggyback 2 g in NaCl (iso-osmotic) 100 mL 2 g INTRAVENOUS PRN(NO DISPENSE) NORepinephrine iv infusion 16 mg in D5W 250 mL (LEVOPHED) 0.6-10 mcg/min INTRAVENOUS CONTINUOUS ceFAZolin iv piggyback 2 g in D5W (iso-osmotic) 100 mL (ANCEF) 2 g INTRAVENOUS q 8 HR ondansetron (PF) 4 mg injection (ZOFRAN) 4 mg INTRAVENOUS q 6 H PRN methocarbamol 750 mg tab(s) (ROBAXIN) 750 mg ORAL TID fentaNYL 25-50 mcg bolus from bag/syringe (SUBLIMAZE) 25-50 mcg INTRAVENOUS q 30 MIN PRN Or fentaNYL 50 mcg/mL 25-50 mcg injection (SUBLIMAZE) 25-50 mcg INTRAVENOUS q 30 MIN PRN fentaNYL 20 mcg/mL iv infusion in NaCl 0.9% 100 mL (SUBLIMAZE) 0-250 mcg/hr INTRAVENOUS CONTINUOUS propofol infusion (DIPRIVAN) 0-60 mcg/kg/min (Adjusted) INTRAVENOUS CONTINUOUS propofol 20 mg bolus from bag/syringe (DIPRIVAN) 20 mg INTRAVENOUS q 30 MIN PRN Or propofol 20 mg injection (DIPRIVAN) 20 mg INTRAVENOUS q 30 MIN PRN pantoprazole 20 mg oral liquid (PROTONIX) 20 mg ORAL/FEEDING TUBE DAILY (6 AM) lactated ringers iv infusion 100 mL/hr INTRAVENOUS CONTINUOUS Labs: Recent Labs 01/02/24 0407 01/02/24 0206 01/01/24 2100 01/01/24 2049 01/01/24195601/01/24 0614 NA -- 138 -- -- -- 137 K -- 4.9 -- (more content not included)...[facility]08-01-2024 NoteHNO ID: [id number] Author: THIEN SIMONS PA-C Service: Neurosurgery Author Type: Physician Acquisitions Assistant Type: Plan of Care Filed: 01/01/2024 23:46 Note Text: Neurosurgery Plan of Care Note: Seen in NSICU. Remains intubated. Propofol paused. [id number]. Able go clerk secretary to command bilaterally. R>L arm withdraw. Brisk w/d in legs. HVAC with blood drainage. Auto mapping 90s. Q1NC. Thien Simons PA-C Department of Neurosurgery Pager: [phone] [facility] Pager: [phone] January 01, 2024 10:49 [facility]08-01-2024 NoteHNO ID: [id number] Author: ISIDORO BETANCOURT APRN.CRNA Service: Anesthesiology Author Type: Nurse Steward/Stewardess Wine Type: Anesthesia Procedure Notes Filed: 01/01/2024 18:30 Note Text: ANESTHESIOLOGY PROCEDURE NOTE Airway General Information Procedure Start Time/Medication Administration: 01/01/2024 6:14 PM Procedure End Time: 01/01/2024 6:15 PM Patient location during procedure: OR Timeout Performed Pre-procedure: timeout performed Consent Obtained: Yes Patient identity confirmed: arm band and patient Staffing CAREER DEVELOPER: Isidoro Betancourt APRN.CAREER DEVELOPER Performed by: EVANS Indications and Patient Condition Indications for airway management: anesthesia and airway protection Preoxygenated: yes anesthesia circuit Patient position: sniffing Method: rapid sequence Cricoid Pressure: No Manual In-Line Stabilization: No Difficult Mask: No Final Airway Details Final airway type: endotracheal airway Final Endotracheal Airway: ETT Cuffed: yes Successful intubation technique: video laryngoscopy Devices used: [place] and Glidescope Endotracheal tube insertion site: oral Blade: Iam Blade size: #4 ETT size (mm): 8.0 Measured from: gums Measurement (cm): 24 Placement verified by: chest auscultation and capnometry Cormack-Lehane Classification: grade I - full view of glottis Number of attempts at approach: 1 Failed airway: no Unrecognized esophageal intubation: no Airway not difficult SIGNATURE: Isidoro Betancourt APRN.CRNA PATIENT NAME: Vicki Randle DATE: January 01, 2024 TIME: 6:28 PM [facility] [id number] NoteHNO ID: [id number] Author: SUMMER SANCHEZ MD Service: Neuroendovascular Intervention Author Type: Physician Type: Plan of Care Filed: 01/01/2024 15:30 Note Text: Update: Imaging reviewed. CT angiogram with dominant right vertebral artery. Left vertebral artery with aortic origin and no clear visualization of the artery distal to the V1 segment. However, there is distal reconstituition with visualization of the V4 segment up to the VB junction. No concerns of hypoperfusion to the posterior fossa. - Aspirin 81 mg daily. - Repeat CT angiogram head and neck in 8-10 weeks. Summer Sanchez MD. Neuro Interventional Surgery [facility] 31[facility] NoteHNO ID: [id number] Author: ALEIDA PHILLIPS DO Service: General Surgery Author Type: Resident Type: Procedures Filed: 01/01/2024 15:08 Note Text: BEDSIDE PROCEDURE NOTE CENTRAL LINE INSERTION Date/Start Time: Date/Stop Time: 01/01/2024 3:07 PM Performed by: Aleida Phillips DO Authorized by: Rony Saenz MD Where was Patient When this Procedure was Performed Bedside/Unscheduled Procedure Room Informed Consent Consent Obtained: Written Tyler Protocol SIGN IN Personnel directly involved with the procedure wore the appropriate PPE. TIME OUT Intended patient and procedure match the source document(s). Consent documented and matches the intended procedure. Correct side/site marked and visible. Pre-Procedure Details: The area was prepped with chlorhexidine (Chloroprep) and allowed to dry. A sterile full body drape was applied following the usual aseptic technique. Medications: Local Anesthesia (see MAR): Lidocaine 1% Procedure Details: Indication: Vasoactive medication Patient Position: flat Site: Right subclavian vein New Stick: The vein was cannulated with an 18 gauge needle. No imaging used. The catheter was secured in place at 16 cm. Securement: Line sutured, occlusive dressing applied, sterile caps on all hubs and sterile dressing applied Assessment: Blood return through all ports, no pneumothorax on x-ray and placement verified by x-ray All catheters, needles, and wires were accounted for and intact Number of Attempts: 2 Successful Placement: yes Post-Procedure Details: Patient Tolerance: Patient tolerated the procedure well with no immediate complications Estimated Blood Loss: scant SIGN OUT All instruments, equipment, possible retained foreign bodies accounted for. SIGNATURE: Aleida Phillips DO PATIENT NAME: Vicki Randle DATE: January 01, 2024 TIME: 3:07 [facility]08-01-2024 NoteHNO ID: [id number] Author: RONY SAENZ MD Service: General Surgery Author Type: Physician Type: Procedures Filed: 01/02/2024 22:00 Note Text: BEDSIDE PROCEDURE NOTE ART LINE/SHEATH Performed by: Kathryn Hickman DO Authorized by: Rony Saenz MD Where was Patient When this Procedure was Performed Bedside/Unscheduled Procedure Room This procedure has been performed in part by a resident/fellow under attending's direction Informed Consent Consent Obtained: Written Tyler Protocol A moment to CARE was completed. SIGN IN Personnel directly involved with the procedure wore the appropriate PPE. Special Equipment: N/A Patient/Surrogate Stated/Verified: Patient name, Date of , Relevant allergies and Intended procedure TIME OUT Intended patient and procedure match the source document(s). Consent documented and matches the intended procedure. Relevant labs, photos, and/or imaging studies have been reviewed. Correct side/site marked and visible. Medications required for procedure verified. Fire risk assessed and interventions discussed. No implant(s) inserted. Pre-Procedure Details: The area was prepped with chlorhexidine (Chloroprep) and allowed to dry. A sterile partial body drape was applied following the usual aseptic technique. Medications: Local Anesthesia (see MAR): Lidocaine 1% Procedure Details: Indication: Frequent ABGs and labs Arterial Line Type: arterial line Site: left radial Technique: Modified Seldinger Pulsatile blood flow exited the catheter. Arterial waveform was noted on the monitor when the catheter was transduced. Securement/Dressing: Tape, sterile sutures and sterile, transparent, occlusive dressing All catheters, needles, and wires were accounted for and intact Number of attempts: 1 Post-Procedure Details: Patient Tolerance: Patient tolerated the procedure well with no immediate complications Estimated Blood Loss: scant Specimens Sent: none SIGN OUT No specimen collected. All instruments, equipment, possible retained foreign bodies accounted for. Post-procedure follow-up management communicated and Plan of Care Visit completed when applicable SIGNATURE: Kathryn Hickman DO PATIENT NAME: Vicki Randle DATE: January 01, 2024 TIME: 2:49 PM Attestation: I was present for the critical and kwok portions of the surgery and I was immediately available to provide assistance. [facility] Telephone encounter Note* Telephone Encounter - Laura Hills LPN - 12/05/2023 12:29 PM EDT Phoned patient and reviewed results and recommendations with him. Patient voiced understanding and will repeat labs when he returns for the 4 week follow up appt. Laura Hills LPN [facility]07-05-2024 Miscellaneous Notes* Telephone Encounter - Laura Hills LPN - 12/05/2023 12:29 PM EDT Phoned patient and reviewed results and recommendations with him. Patient voiced understanding and will repeat labs when he returns for the 4 week follow up appt. Laura Hills LPN * Telephone Encounter - Juanita Ashford OCCA - 12/03/2023 1:08 PM EDT TC no answer. Left VM to return call. LA NENA Marquis * Telephone Encounter - Kanchan Ge MD - 12/03/2023 1:04 PM EDT Blood work shows mild anemia which may be from his recent skin tear on his right elbow while on anticoagulation. Cholesterol level in good range. Kidney function normal. Albumin level is low with normal protein levels. Recommend rechecking CBC in 1 month to see if anemia improves. Increase iron in his diet with recent bleeding. Increase protein in his diet for low albumin and will recheck with CBC. documented in [facility] Telephone encounter Note * Telephone Encounter - Juanita Ashford OCCA - 12/03/2023 1:08 PM EDT TC no answer. Left VM to return call. Juanita Strait, OCCA [facility]07-03-2024 Telephone encounter Note* Telephone Encounter - Kanchan Ge MD - 12/03/2023 1:04 PM EDT Blood work shows mild anemia which may be from his recent skin tear on his right elbow while on anticoagulation. Cholesterol level in good range. Kidney function normal. Albumin level is low with normal protein levels. Recommend rechecking CBC in 1 month to see if anemia improves. Increase iron in his diet with recent bleeding. Increase protein in his diet for low albumin and will recheck with CBC. [facility]07-03-2024 History of Present illness Narrative* Sera Rubio RT(R) - 12/03/2023 1:00 PM EDT Radiology Service Progress Note PATIENT NAME: Vicki Randle DATE OF SERVICE: December 03, 2023 TIME: 3:52 PM PATIENT IDENTITY VERIFICATION COMPLETED USING TWO (2) IDENTIFIERS: Name and Date of confirmedby patient verbally. FALL SCREENING: Has the patient had 2 falls in the last year or 1 fall with injury or currently using an Ambulatory Assistive Device (Walker, Cane, Wheelchair, Crutches, etc.)? No PATIENT GENDER DATA: Male PATIENT RELEVANT IMPLANT DATA REVIEWED: Yes PATIENT PRESENTS WITH AN IMPLANTABLE OR ATTACHED AGRICULTURE SPECIALIST: No RADIOLOGY DEPARTMENT: CT; Exam(s) Completed: Brain PERIPHERAL IV DATA: Not applicable SIGNED BY: RT Tavon(R) December 03, 2023 3:52 PM documented in this encounterK[facility]07[facility] History of Present illness Narrative* Kanchan Ge MD - 12/02/2023 2:10 PM EDT Chief Complaint Patient presents with: Follow Up: 3 month HPI Vicki Randle is a 78 year old male who presents here today for evaluation of lightheadedness. Accompanied today by his son Alex. Patient complaining of intermittent lightheadedness for the last month. Occurs a couple times per day and lasts for about a minutes. Can occur at random, but notes that if he gets up out of his chairsymptoms are worse. States that he has stools in different locations around the house in case he has to sit down. Had a fall 2 nights ago when he got up to use the restroom. Was walking down the sand[place] and felt lightheaded and hit his head on the carpeted floor. Denies LOC, headache, vision changes, slurred speech, facial droop, numbness/tingling/weakness, chest pain or palpitations with lightheadedness, vomiting, diarrhea. Patient checks BP at home with readings in the 120's/50-60's. States that he drinks 4-5 bottles of water per day. Patient uses walker for ambulation, but did not have it the other night when he fell. Also notes heis still drinking 4-5 shots of alcohol nightly and is not interested in quitting. Falling about once every 2 weeks at this point. He is on eliquis for history of recurrent DVT which was started more than [address] Berg.He had DVT in 2018 and only took anticoagulation for 30 days and then DVT returned. Has skin tear on right elbow which he sustained bumping into a door frame. Past medical history, appointments, medications, allergies reviewed. Previous Medical History PAST MEDICAL HISTORY Diagnosis Date AAA (abdominal aortic aneurysm) ([facility]) 02/06/2012 01/10/17: CT abd 4.8 cm. s/p aortobiliac stent.-Dr. Johan Berg Actinic keratosis On [facility], Dr. Dudley Acute deep vein thrombosis (DVT) of femoral vein of left lower extremity ([facility]) 03/16/2018 02/19/18--on Eliquis At high risk for falls Basal cell carcinoma 2019 left cheek Benign essential tremor Benign hypertension 07/13/2015 BPH with obstruction/lower urinary tract symptoms Bruit right carotid artery Chewing tobacco use Class 1 obesity due to excess calories without serious comorbidity with body mass index (BMI) of 33.0 to 33.9 in adult Closed rib fracture 01/2023 right rib fracture after fall Esophageal reflux Gastroesophageal reflux Facet arthritis of lumbar region 06/27/2014 History of carpal tunnel surgery Hypertrophy of prostate without urinary obstruction and other lower urinary tract symptoms (LUTS) Hypertrophy of the prostate w/o obstruction Left leg DVT (HCC) 02/19/2018 Mixed hyperlipidemia Hyperlipidemia 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 Melo Personal history of colonic polyps Pulmonary emphysema (HCC) 12/31/2016 Sebaceous cyst Situational depression 07/03/2016 Squamous cell carcinoma 04/04/2015 Left cheek Venous insufficiency of both lower extremities 07/01/2014 Previous Surgical History PAST SURGICAL HISTORY Procedure Laterality Date COLONOSCOPY 12/29/2017 adenomatous polyp, repeat in 5 years COLONOSCOPY FLX DX W/COLLJ SPEC WHEN PFRMD 08/17/2007 EXCISION TUMOR SOFT TISSUE THIGH/KNEE SUBQ <3CM REMOVED FATTY TUMORS FROM UNDER EXCISION TUMOR SOFT TISSUE THIGH/KNEE SUBQ <3CM RMOVED FATTY TUMORE INT REPAIR SCALP,JAYCOB,TRUNK 7.6-12.5CM 02/24/2007 back LAPS SURG CHOLECYSTECTOMY W/CHOLANGIOGRAPHY 09/07/2007 MRI 02/22/2014 [facility] - mri - right knee PAST SURGICAL HISTORY OF N/A 09/09/2017 Abdominal aneurysm aortic repair PAST SURGICAL HISTORY OF Right 2013 arthroscopic knee surgery PAST SURGICAL HISTORY OF Left excision of knee bursa REM LESION TRUNK,ARM,LEG > 4.0CM 02/24/2007 back REM LESION TRUNK,ARM,LEG > 4.0CM REVISE MEDIAN N/CARPAL TUNNEL SURG Bilateral SURGERY (GENERAL SURGERY) CONSULT 04/25/2015 Invasive squamous cell carcincoma see scanned documents Family History FAMILY HISTORY Problem Relation Age of Onset Emphysema Mother Arthritis Sister Hypertension Maternal Grandmother No Known Problems Son No Known Problems Son No Known Problems Son No Known Problems Son No Known Problems Son Patient Allergies ALLERGIES Allergen Reactions Lipitor [Atorvastat* Intolerance Rosuvastatin Calcium Intolerance Ylvrhvk-Pog-Dmw Red* Myalgia Current Medications Current Outpatient Medications on File Prior to Visit Medication Sig gabapentin (NEURONTIN) 100 mg capsule Take 1 capsule by mouth three times a day for 90 days. evolocumab (REPATHA SURECLICK) 140 mg/mL pen injector Inject 140 mg subcutaneously every 2 weeks. FLUoxetine (PROZAC) 20 mg capsule Take 1 capsule by mouth once daily. ELIQUIS 5 mg tab(s) Take 1 tablet by mouth two times a day. finasteride (PROSCAR) 5 mg tablet Take 1 tablet by mouth once daily. omeprazole (PRILOSEC) 20 mg capsule Take 1 capsule by mouth every morning. tamsulosin (FLOMAX) 0.4 mg Take 1 capsule by mouth once daily. acetaminophen (TYLENOL) 325 mg tablet Take 3 tablets by mouth every 6 hours as needed for pain. fluticasone (FLONASE) 50 mcg/actuation nasal spray Use 2 Sprays in each nostril once daily. Rinse mouth after use. brimonidine (ALPHAGAN) 0.2 % ophthalmic solution Use 1 Drop in both eyes twice daily. timolol maleate (TIMOPTIC) 0.5 % ophthalmic solution Use 1 Drop in both eyes twice daily. aspirin, enteric coated (ECOTRIN LOW STRENGTH) 81 mg EC tablet Take 1 tablet by mouth once daily. Current Facility-Administered Medications on File Prior to Visit Medication perflutren lipid microspheres 1.3 mL in NaCl (PF) 0.9% 10 mL injection (DEFINITY) sodium chloride 0.9 % (flush) 10 mL (BD POSIFLUSH) Social History Social History Tobacco Use Smoking status: Former Packs/day: 1.00 Years: 30.00 Additional pack years: 0.00 Total pack years: 30.00 Types: Cigarettes Quit date: 06/02/1988 Years since quittin.5 Smokeless tobacco: Current Types: Chew Tobacco comments: Brief relaps after of spouse. Vaping Use Vaping Use: Never used Substance Use Topics Alcohol use: Yes Drug use: No Review of Symptoms REVIEW OF SYSTEMS GENERAL: No weight loss, malaise or fevers RESPIRATORY: Positive for SOB with exertion. Denies cough or wheezing. CARDIOVASCULAR: Negative for chest pain, leg swelling, hypertension, CHF or palpitations GI: No nausea, vomiting, or diarrhea SKIN: Positive for skin tear on right elbow and abrasion to his forehead. EXAM: BP 110/56 Pulse 92 Resp 18 SpO2 95% BP w/Orthostatic Vitals Date and Time Orthostatic BP Orthostatic Pulse BP Pulse BP Position BP Site BP Cuff Size 12/02/23 1436 90/60 111 -- -- Standing Left Arm Large Adult 12/02/23 1435 100/70 86 -- -- Sitting Left Arm Large Adult 12/02/23 1434 122/78 94 -- -- Supine Left Arm Large Adult 12/02/23 1407 -- -- 110/56 92 -- -- -- Peak Flow Date and Time PF Resp 12/02/23 1407 -- 18 General Appearance: Well appearing, alert, in no acute distress, well-hydrated, well nourished.. Skin: 3-4 cm skin tear on right elbow with scabbing without bleeding or hematoma. 5-6 cm abrasion to right forehead. Head: Normocephalic, no masses, lesions, tenderness or abnormalities. Lungs: Lungs clear to auscultation. No wheezing, rhonchi, rales.. Heart: RRR without murmur, gallop, or rubs. No ectopy. Abdomen: Normal abdominal exam, Abdomen soft, non-tender. Bowel sounds normal. No masses, organomegaly. 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 Good capillary refill. Musculoskeletal: No joint swelling, deformity, or tenderness. Health Maintenance List Hepatitis C Screening Never done Advance Directive Discussion Never done Covid-19 Vaccine(2022- season) due on 08/20/2023 BP Controlled (<130/80) due on 10/02/2023 RSV Vaccine(1 - 1-dose 60+ series) due on 04/21/2024 Shingrix Vaccine(1 of 2) due on 04/21/2024 Influenza Vaccine(1) due on 02/01/2024 Annual PCP Team Chronic Disease Visit due on 08/04/2024 Diabetes Screening due on 07/04/2025 DTaP,Tdap,Td Vaccine(4 - Td or Tdap) due on 03/26/2032 Spirometry Completed Pneumococcal Vaccine: 65+ Completed HPV Vaccine Aged Out Colorectal Cancer Screening Discontinued Data reviewed Latest Ref Rng 07/04/2022 02/18/2023 WBC 3.70 - 11.00 k/uL 7.53 9.96 RBC 4.20 - 6.00 m/uL 4.55 4.50 Hemoglobin 13.0 - 17.0 g/dL 14.0 13.0 Hematocrit 39.0 - 51.0 % 43.2 41.3 MCV 80.0 - 100.0 fL 94.9 91.8 MCH 26.0 - 34.0 pg 30.8 28.9 MCHC 30.5 - 36.0 g/dL 32.4 31.5 RDW-CV 11.5 - 15.0 % 12.5 14.2 Platelet Count 150 - 400 k/uL 196 251 MPV 9.0 - 12.7 fL 10.6 10.5 Neut% % 77.5 80.8 Abs Neut (ANC) 1.45 - 7.50 k/uL 5.83 8.04 (H) Lymph% % 13.4 8.7 Abs Lymph 1.00 - 4.00 k/uL 1.01 0.87 (L) Seward% % 6.6 9.1 Abs [place]ard <0.87 k/uL 0.50 0.91 (H) Eosin% % 1.9 0.7 Abs Eosin <0.46 k/uL 0.14 0.07 Baso% % 0.5 0.3 Abs Baso <0.11 k/uL 0.04 0.03 Immature Gran % % 0.1 0.4 IMMATURE GRANS (ABS) <0.10 k/uL <0.03 0.04 NRBC /100 WBC 0.0 0.0 Absolute nRBC <0.01 k/uL <0.01 <0.01 DTYPE Auto Auto Protein, Total 6.3 - 8.0 g/dL 7.5 Albumin 3.9 - 4.9 g/dL 4.1 Calcium 8.5 - 10.2 mg/dL 9.2 Bilirubin, Total 0.2 - 1.3 mg/dL 0.4 Alkaline Phosphatase 38 - 113 U/L 104 AST 14 - 40 U/L 19 ALT 10 - 54 U/L 12 Glucose 74 - 99 mg/dL 112 (H) BUN 9 - 24 mg/dL 8 (L) Creatinine 0.73 - 1.22 mg/dL 0.95 Sodium 136 - 144 mmol/L 138 Potassium 3.7 - 5.1 mmol/L 3.9 Chloride 97 - 105 mmol/L 101 CO2 22 - 30 mmol/L 27 Anion Gap 9 - 18 mmol/L 10 eGFR >=60 mL/min/1.73m 82 Legend: (H) High (L) Low ASSESSMENT/PLAN: 1. Fall in home, initial encounter - ICD9: E888.9, E849.0, ICD10: W19.XXXA, Y92.009 (primary diagnosis) Patient having regular falls at home despite use of walker. Refer to home health for PT/OT with patient being homebound. Will stop his anticoagulation due to risk of hemorrhage/bleeding with falls. Discussed risks for recurrent DVT, PE and stroke. Patient understands these risks and is agreeable tostopping anticoagulation.refusing referral for IVC filter. Red flags for re-assessment reviewed with patient in detail. - [facility] 2. Orthostatic hypotension - ICD9: 458.0, ICD10: I95.1 May be 2/2 flomax vs dehydration. Stop flomax. Push PO fluids. Limit alcohol use. Recheck in 2 weeks. Red flags for re-assessment reviewed with patient in detail. - [facility] 3. Abrasion of forehead, initial encounter - ICD9: 910.0, ICD10: S00.81XA Healing well. May apply abx ointment BID until healed. - [facility] 4. Injury of head, initial encounter - ICD9: 959.01, ICD10: S09.90XA Obtain CT brain to rule out hemorrhage STAT. - CT BRAIN WO IVCON - [facility] 5. Skin tear of right elbow without complication, initial encounter - ICD9: 881.01, ICD10: S51.011A Healing well with formed scab in place. Discussed this will heal on its own and can cover with gauze and non adherent pad at home and change daily or PRN. - [facility] 6. Benign hypertension - ICD9: 401.1, ICD10: I10 - Controlled - Recommend home blood pressure monitoring, to bring results to next visit - Encouraged sodium restriction, DASH or Mediterranean diet - Recommend regular aerobic exercise 7. Hyperlipidemia with target LDL less than 100 - ICD9: 272.4, ICD10: E78.5 - Control undetermined, due for labs - Continue current medications - Counseled on healthy diet and regular exercise - REPATHA SURECLICK 140 MG/ML SUBCUTANEOUS PEN INJECTOR - COMPREHENSIVE METABOLIC PANEL - LIPID PANEL, NONFASTING 8. BPH with obstruction/lower urinary tract symptoms - ICD9: 600.01, 599.69, ICD10: N40.1, N13.8 Stop flomax. Continue finasteride. Will f/u symptoms in 2 weeks. 9. History of DVT of lower extremity - ICD9: V12.51, ICD10: Z86.718 Stop Eliquis as noted above for increased risk for falls. 10. Chronic anticoagulation - ICD9: V58.61, ICD10: Z79.01 Stop Eliquis as noted above for increased risk for falls. - COMPLETE BLOOD COUNT AND DIFFERENTIAL - CT BRAIN WO IVCON 11. At high risk for falls - ICD9: V15.88, ICD10: Z91.81 Stop Eliquis as noted above for increased risk for falls. - COMPLETE BLOOD COUNT AND DIFFERENTIAL 12. Abdominal aortic aneurysm (AAA) without rupture, unspecified part (HCC) - ICD9: 441.4, ICD10: I71.40 Due for repeat US. Already ordered through Dr. Henry Berg's office. I spent a total of 40 minutes on the date of the service which included preparing to see the patient, [id number] patient care, completing clinical documentation, obtaining and/or reviewing separately obtained history, performing a medically appropriate examination, counseling and educating the pat ient/family/caregiver, and ordering medications, tests, or procedures. Kanchan Ge MD documented [facility] Miscellaneous Notes* Telephone Encounter - Kanchan Ge MD - 12/01/2023 12:29 PM EDT PDMP website checked and validated. All prescriptions have been APPROPRIATELY filled. No suspiciousactivity was identified. 12/01/2023 by Kanchan Ge MD * Telephone Encounter - Elizabeth Watson LPN - 12/01/2023 12:20 PM EDT Prescription Refill Information The patient has been identified by name and date of : Yes Caregiver verified no other encounters exist for this prescription request: Yes Caregiver confirmed with patient/requestor that no other refills are due, in the near future, with this provider at this time: Yes The last office visit in the department: 08/05/23 Does the patient have a future office visit with this provider/department: Yes 12/02/23 Requested Prescriptions Pending Prescriptions Disp Refills gabapentin (NEURONTIN) 100 mg capsule 270 capsule 0 Sig: Take 1 capsule by mouth three times a day for 90 days. Elizabeth Watson LPN December 01, 2023 12:20 PM documented in this encounterK[facility]07-[facility] Telephone encounter Note * Telephone Encounter - Kanchan Ge MD - 12/01/2023 12:29 PM EDT PDMP website checked and validated. All prescriptions have been APPROPRIATELY filled. No suspiciousactivity was identified. 12/01/2023 by Kanchan Ge MD [facility]07-01-2024 Telephone encounter Note* Telephone Encounter - Elizabeth Watson LPN - 12/01/2023 12:20 PM EDT Prescription Refill Information The patient has been identified by name and date of : Yes Caregiver verified no other encounters exist for this prescription request: Yes Caregiver confirmed with patient/requestor that no other refills are due, in the near future, with this provider at this time: Yes The last office visit in the department: 08/05/23 Does the patient have a future office visit with this provider/department: Yes 12/02/23 Requested Prescriptions Pending Prescriptions Disp Refills gabapentin (NEURONTIN) 100 mg capsule 270 capsule 0 Sig: Take 1 capsule by mouth three times a day for 90 days. Elizabeth Watson LPN December 01, 2023 12:20 PM [facility]05-13-20[facility] Telephone encounter Note* Telephone Encounter - Marlin Champagne RN - 10/13/2023 11:53 AM EDT Patient has been identified by name and date of : Patient phones for refill(s): Requested Prescriptions Pending Prescriptions Disp Refills evolocumab (REPATHA SURECLICK) 140 mg/mL pen injector 6 mL 1 Sig: Inject 140 mg subcutaneously every 2 weeks. FLUoxetine (PROZAC) 20 mg capsule 90 capsule 1 Sig: Take 1 capsule by mouth once daily. Date of last office visit in primary care: 08/05/2023 Date of next office visit in primary care: 11/05/2023 Please advise. Thank you. Marlin Champagne RN. [facility]05-13-2024 Miscellaneous Notes* Telephone Encounter - Marlin Champagne RN - 10/13/2023 11:53 AM EDT Patient has been identified by name and date of : Patient phones for refill(s): Requested Prescriptions Pending Prescriptions Disp Refills evolocumab (REPATHA SURECLICK) 140 mg/mL pen injector 6 mL 1 Sig: Inject 140 mg subcutaneously every 2 weeks. FLUoxetine (PROZAC) 20 mg capsule 90 capsule 1 Sig: Take 1 capsule by mouth once daily. Date of last office visit in primary care: 08/05/2023 Date of next office visit in primary care: 11/05/2023 Please advise. Thank you. Marlin Champagne RN. [facility] Miscellaneous Notes* Telephone Encounter - Stephanie Stephens LPN - 09/01/2023 3:27 PM EDT Images from the original note were not included. Prior authorization approved Payer: [employer] [phone] CaseId:[id number];Status:Approved;Review Type:Prior Auth;Coverage Start Date:08/02/2023;Coverage End Date:08/31/2024; Approval Details Authorized from August 02, 2023 to August 31, 2024 Electronic appeal: Not supported View History Medication Being Authorized evolocumab (REPATHA SURECLICK) 140 mg/mL pen injector Inject 140 mg subcutaneously every 2 weeks. Dispense: 6 mL Refills: 1 Start: 04/14/2023 End: 10/11/2023 Class: Normal Diagnoses: Hyperlipidemia with target LDL less than 100 This order has been released to its destination. To be filled at: [facility]- [id number] [place] [address] - [address] [phone] [id number] Pharmacy notified. * Telephone Encounter - Stephanie Stephens LPN - 09/01/2023 1:44 PM EDT Rec'd covermymeds PA for repatha. This was completed electronically. documented in this [facility] History of Present illness Narrative* Adonis De Oliveira MD - 08/08/2023 11:59 AM EST HISTORY AND PHYSICAL Vicki Randle 1945 REFERRING PHYSICIAN: Anne Bethea APRN.C* CHIEF COMPLAINT: Consult (Cutaneous abscess of upper back) HPI: Vicki is a 78 year old male with a complaint of an upper mid back abscess. he has noticed this abscess for the past 1 week. he notes purulent discharge from the abscess noted yesterday. he denies a history of diabetes. The patient was seen by his primary care provider 3 days previously and was started on oral antibiotics. The patient takes Eliquis for history of DVTs. He took it this morning. The patient is being seen by me today at the request of Anne Bethea APRN.Shaye* my opinion and advice regarding now draining infected back sebaceous cyst. SIGNIFICANT MEDICAL PROBLEMS: PAST MEDICAL HISTORY Diagnosis Date AAA (abdominal aortic aneurysm) (HCC) 02/06/2012 01/10/17: CT abd 4.8 cm. s/p aortobiliac stent.-Dr. R Cebul Actinic keratosis On [place], Dr. Dudley Acute deep vein thrombosis (DVT) of femoral vein of left lower extremity (HCC) 03/16/2018 02/19/18--on Eliquis At high risk for falls Basal cell carcinoma 2019 left cheek Benign essential tremor Benign hypertension 07/13/2015 BPH with obstruction/lower urinary tract symptoms Bruit right carotid artery Chewing tobacco use Class 1 obesity due to excess calories without serious comorbidity with body mass index (BMI) of 33.0 to 33.9 in adult Closed rib fracture 01/2023 right rib fracture after fall Esophageal reflux Gastroesophageal reflux Facet arthritis of lumbar region 06/27/2014 History of carpal tunnel surgery Hypertrophy of prostate without urinary obstruction and other lower urinary tract symptoms (LUTS) Hypertrophy of the prostate w/o obstruction Left leg DVT (HCC) 02/19/2018 Mixed hyperlipidemia Hyperlipidemia 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 Melo Personal history of colonic polyps Pulmonary emphysema (HCC) 12/31/2016 Sebaceous cyst Situational depression 07/03/2016 Squamous cell carcinoma 04/04/2015 Left cheek Venous insufficiency of both lower extremities 07/01/2014 OPERATIONS: PAST SURGICAL HISTORY Procedure Laterality Date COLONOSCOPY 12/29/2017 adenomatous polyp, repeat in 5 years COLONOSCOPY FLX DX W/COLLJ SPEC WHEN PFRMD 08/17/2007 EXCISION TUMOR SOFT TISSUE THIGH/KNEE SUBQ <3CM REMOVED FATTY TUMORS FROM UNDER EXCISION TUMOR SOFT TISSUE THIGH/KNEE SUBQ <3CM RMOVED FATTY TUMORE INT REPAIR SCALP,JAYCOB,TRUNK 7.6-12.5CM 02/24/2007 back LAPS SURG CHOLECYSTECTOMY W/CHOLANGIOGRAPHY 09/07/2007 MRI 02/22/2014 [facility] - mri - right knee PAST SURGICAL HISTORY OF N/A 09/09/2017 Abdominal aneurysm aortic repair PAST SURGICAL HISTORY OF Right 2013 arthroscopic knee surgery PAST SURGICAL HISTORY OF Left excision of knee bursa REM LESION TRUNK,ARM,LEG > 4.0CM 02/24/2007 back REM LESION TRUNK,ARM,LEG > 4.0CM REVISE MEDIAN N/CARPAL TUNNEL SURG Bilateral 1990s SURGERY (GENERAL SURGERY) CONSULT 04/25/2015 Invasive squamous cell carcincoma see scanned documents CURRENT MEDICATIONS: Current Outpatient Medications Medication Sig Dispense Refill sulfamethoxazole-trimethoprim (BACTRIM DS) 800-160 mg per tablet Take 1 tablet by mouth two times aday for 5 days. 10 tablet 0 ELIQUIS 5 mg tab(s) Take 1 tablet by mouth two times a day. 60 tablet 11 evolocumab (REPATHA SURECLICK) 140 mg/mL pen injector Inject 140 mg subcutaneously every 2 weeks. 6mL 1 finasteride (PROSCAR) 5 mg tablet Take 1 tablet by mouth once daily. 90 tablet 3 gabapentin (NEURONTIN) 100 mg capsule Take 1 capsule by mouth three times daily for 90 days. 270 capsule 0 omeprazole (PRILOSEC) 20 mg capsule Take 1 capsule by mouth every morning. 90 capsule 3 tamsulosin (FLOMAX) 0.4 mg Take 1 capsule by mouth once daily. 90 capsule 3 FLUoxetine (PROZAC) 20 mg capsule Take 1 capsule by mouth once daily. 90 capsule 1 fluticasone (FLONASE) 50 mcg/actuation nasal spray Use 2 Sprays in each nostril once daily. Rinse mouth after use. 1 Each 2 brimonidine (ALPHAGAN) 0.2 % ophthalmic solution Use 1 Drop in both eyes twice daily. 6 timolol maleate (TIMOPTIC) 0.5 % ophthalmic solution Use 1 Drop in both eyes twice daily. 6 aspirin, enteric coated (ECOTRIN LOW STRENGTH) 81 mg EC tablet Take 1 tablet by mouth once daily. 0 acetaminophen (TYLENOL) 325 mg tablet Take 3 tablets by mouth every 6 hours as needed for pain. (Patient not taking: Reported on 04/21/2023) Current Facility-Administered Medications Medication Dose Route Frequency Provider Last Rate Last Admin perflutren lipid microspheres 1.3 mL in NaCl (PF) 0.9% 10 mL injection (DEFINITY) INTRAVENOUS DIRECTED PRN Kanchan Ge MD sodium chloride 0.9 % (flush) 10 mL (BD POSIFLUSH) 10 mL INTRAVENOUS DIRECTED PRN Kanchan Ge MD ALLERGIES: Lipitor [Atorvastatin Calcium], Rosuvastatin Calcium, and Zrquhdx-Wre-Osi Reductase Inhibitors PERSONAL HISTORY: Social History Tobacco Use Smoking status: Former Packs/day: 1.00 Years: 30.00 Additional pack years: 0.00 Total pack years: 30.00 Types: Cigarettes Quit date: 06/02/1988 Years since quittin.2 Smokeless tobacco: Current Types: Chew Tobacco comments: Brief relaps after of spouse. Vaping Use Vaping Use: Never used Substance Use Topics Alcohol use: Yes Drug use: No FAMILY HISTORY: FAMILY HISTORY Problem Relation Age of Onset Emphysema Mother Arthritis Sister Hypertension Maternal Grandmother No Known Problems Son No Known Problems Son No Known Problems Son No Known Problems Son No Known Problems Son REVIEW OF SYMPTOMS: The review of systems data was entered by the nurse and reviewed by me Nursing Notes: Nubia Constantino LPN 08/08/2023 10:47 AM Signed REVIEW OF SYSTEMS: General: The patient denies fatigue, denies weight loss, denies weight gain, denies feeling hot, and denies feelings of cold. Eyes: The patient NOTES glaucoma, denies eye injury/surgery, wears glasses or contacts. Ear/Nose/Throat: The patient denies allergies, denies hayfever, denies ear infections, and denies bloody noses. Cardiovascular: The patient denies chest pain, notes heart disease, denies high blood pressure,denies cardiac stent, denies prior heart attack, denies irregular heart beat, denies high cholesterol, denies poor circulation, denies heart failure, other cardiac issues, denies claudication, denies coldfeet, denies peripheral arterial stent. Respiratory: The patient denies tuberculosis, denies pneumonia, NOTES frequent cough, denies pulmonary embolism, NOTES shortness of breath, and denies coughing up [...] and denies bloody urine. Skin: The patient NOTES a history of skin cancer, denies bleeding/changing moles, and denies a history of skin rash. Neurologic: The patient denies a history of epilepsy/convulsions, denies headaches, denies head/spinal injuries, and denies stroke/TIA. Psychiatric: The patient denies psychiatric medications, denies depression, and denies voices, denies substance abuse. Endocrine: The patient denies thyroid disorders, denies diabetes, and denies hormonal problems. Hematologic: The patient NOTES a history of bruising, NOTES bleeding, and denies anemia, denies blood clots. Infections: The patient denies a history of measles and mumps, denies rheumatic fever, and denies sexually transmitted diseases. Musculoskeletal: The patient denies back pain/injury, denies back problems, denies sciatica, deniesknee/foot trouble, denies arthritis, or denies gout. When was patient's last Mammogram screening? N/A Last Colonoscopy: 2018 OZ Duran Samaria, LPN 08/08/2023 11:51 AM Signed UNIVERSAL PROTOCOL / SAFETY CHECKLIST Procedure to be Performed: Incision and drainage of back sebaceous cyst Sign In: A Moment of CARE was completed. Personnel directly involved with the procedure wore the appropriate PPE (Personal Protective Equipment). No special equipment needed. Patient/Surrogate Stated/Verified: PATIENT VERIFIED(optional for EMERGENT procedures): Patient name, Date of , Relevant allergies, and The intended procedure Time Out Communication: Intended patient and procedure match the source documents. Consent documented and matches the intended procedure. No relevant labs, photos, and/or imaging studies were applicable for review. Correct side/site marked and visible. Medications required for procedure verified. No fire risk assessment and interventions applicable. No implant(s) inserted. Sign Out: SIGN OUT (optional for EMERGENT procedures): No specimen collected. No instruments, equipment or retained foreign bodies applicable. Post-procedure follow-up management communicated and Plan of Care Visit completed when applicable. Nubia Constantino LPN PHYSICAL EXAMINATION: General: The patient is 78 year old male, well nourished, well hydrated in no acute distress. The patient is oriented to time, place, and person. VITALS: Blood pressure 140/78, pulse 108, temperature 36.8 C (98.2 F), height 185.4 cm (6' 1), weight 104.9 kg (231 lb 3.2 oz), SpO2 98%. Body mass index is 30.5 kg/m . HEENT: Normal cephalic, atraumatic, pupils are equally round, sclera are anicteric, mucous membranes are moist, oropharynx is clear. Neck has no masses, asymmetry or lymphadenopathy. Thyroid is unremarkable. Respiratory: Clear to auscultation and percussion. Normal respiratory excursion and pattern. Cardiac: Examination is regular rate and rhythm. Abdominal exam: exam deferred Rectal exam: exam deferred. Extremities: no clubbing, cyanosis or edema. No adenopathy. Other: Upper mid back abscess - a 3cm x 3cm area of fluctuance with a 4cm x 4cm area of surroundingerythema. The skin overlying the point of maximal fluctance is not viable. LABORATORY VALUES: As Noted RADIOLOGIC STUDIES: As Noted PROCEDURE: INCISION AND DRAINAGE OF UPPER BACK ABSCESS After consent was obtained and the site, person, and procedure verified, the patient`s skin was prepped and draped in the usual fashion. A combination of Lidocaine and Marcaine was injected into the skin the central area of necrosis with spontaneous drainage. The macerated material was cut to allowbetter drainage of the material and cut to non friable tissue. A large amount of caseous and purulent materal was drained. The abscess was then unroofed. The cavity was packed with iodoform gauze. The patient tolerated the procedure well. Assessment IMPRESSION: STATUS POST INCISION AND DRAINAGE OF BACK ABSCESS PLAN: Vicki is instructed to remove the packing in 1 days. If the dressing becomes soaked or had significant drainage, the dressing should be changed. If there is minor bleeding from this skin edge, the patient should hold pressure on the incision. If there is continued bleeding, the patient should contact our office immediately. The patient should wash the wound with gentle soap and water. he may shower. The wound should not be immersed in a pool, bathtub, or even hot tub. My findings have been communicated to [facility] via shared medical record. This note will be forwarded to Kanchan Ge MD. Diagnoses: (L02.818) Cutaneous abscess of other site Return to Clinic: The patient is instructed to follow-up with me as needed. Adonis De Oliveira MD documented [facility] Instructions* Patient Instructions* Nubia Constantino LPN - 08/08/2023 11:50 AM EST Instructions After I & D of abscess of back on 08/08/23. You are instructed to REMOVE PACKING TOMORROW (GET PACKING SOAKING WET PRIOR TO REMOVING) and coverwith bandaid. If the dressing becomes soaked or had significant drainage, the dressing should be changed. If there is minor bleeding from this skin edge, you should hold pressure on the incision. If there is continued bleeding, you should contact our office immediately. Wash the wound with gentle soap and water. You may shower. The wound should not be immersed in a pool, bathtub, or even hot tub. If the wound shows signs of redness, inflammation, or purulent drainage, you should contact our office immediately. Please use the following pain regimen: Acetaminophen (Tylenol) 650 mg, then in 3-4 hours take 600 mg ibuprofen (Motrin), then in 3-4 hourstake 650 mg acetaminophen, then in 3-4 hours take 600 mg ibuprofen and so on and continue this over1-2 days. If you have any questions or concerns please feel free to call our office at [phone] and ask to be transferred to General Surgery. Thank you for choosing [facility] - General Surgery. documented in this encounterK[facility]03-[facility] Nurse Note* Nubia Constantino LPN - 08/08/2023 11:37 AM EST UNIVERSAL PROTOCOL / SAFETY CHECKLIST Procedure to be Performed: Incision and drainage of back sebaceous cyst Sign In: A Moment of CARE was completed. Personnel directly involved with the procedure wore the appropriate PPE (Personal Protective Equipment). No special equipment needed. Patient/Surrogate Stated/Verified: PATIENT VERIFIED(optional for EMERGENT procedures): Patient name, Date of , Relevant allergies, and The intended procedure Time Out Communication: Intended patient and procedure match the source documents. Consent documented and matches the intended procedure. No relevant labs, photos, and/or imaging studies were applicable for review. Correct side/site marked and visible. Medications required for procedure verified. No fire risk assessment and interventions applicable. No implant(s) inserted. Sign Out: SIGN OUT (optional for EMERGENT procedures): No specimen collected. No instruments, equipment or retained foreign bodies applicable. Post-procedure follow-up management communicated and Plan of Care Visit completed when applicable. Nubia Constantino LPN * Nubia Constantino LPN - 08/08/2023 10:44 AM EST REVIEW OF SYSTEMS: General: The patient denies fatigue, denies weight loss, denies weight gain, denies feeling hot, and denies feelings of cold. Eyes: The patient NOTES glaucoma, denies eye injury/surgery, wears glasses or contacts. Ear/Nose/Throat: The patient denies allergies, denies hayfever, denies ear infections, and denies bloody noses. Cardiovascular: The patient denies chest pain, notes heart disease, denies high blood pressure,denies cardiac stent, denies prior heart attack, denies irregular heart beat, denies high cholesterol, denies poor circulation, denies heart failure, other cardiac issues, denies claudication, denies coldfeet, denies peripheral arterial stent. Respiratory: The patient denies tuberculosis, denies pneumonia, NOTES frequent cough, denies pulmonary embolism, NOTES shortness of breath, and denies coughing up [...] and denies bloody urine. Skin: The patient NOTES a history of skin cancer, denies bleeding/changing moles, and denies a history of skin rash. Neurologic: The patient denies a history of epilepsy/convulsions, denies headaches, denies head/spinal injuries, and denies stroke/TIA. Psychiatric: The patient denies psychiatric medications, denies depression, and denies voices, denies substance abuse. Endocrine: The patient denies thyroid disorders, denies diabetes, and denies hormonal problems. Hematologic: The patient NOTES a history of bruising, NOTES bleeding, and denies anemia, denies blood clots. Infections: The patient denies a history of measles and mumps, denies rheumatic fever, and denies sexually transmitted diseases. Musculoskeletal: The patient denies back pain/injury, denies back problems, denies sciatica, deniesknee/foot trouble, denies arthritis, or denies gout. When was patient's last Mammogram screening? N/A Last Colonoscopy: 2018 Nubia Constantino LPN documented in this encounterK[facility]02[facility]24 Miscellaneous Notes* Telephone Encounter - [facility] Pre[facility] Sorensen - 07/04/2023 3:08 PM EST Patient has been identified by name and date of : Yes Requested Prescriptions Pending Prescriptions Disp Refills ELIQUIS 5 mg tab(s) 60 tablet 11 Sig: Take 1 tablet by mouth two times a day. RX INSTRUCTIONS: he is out of medication, please send today. Patient aware RX will be sent to pharmacy. No need to notify patient. Prema Sorensen documented in this [facility]11-20-2023 Instructions* Patient Instructions* Kanchan Ge MD - 04/21/2023 3:38 PM EST Contact your pharmacy for the Shingrix and RSV vaccine. documented in this [facility]11-20-2023 History of Present illness Narrative* Kanchan Ge MD - 04/21/2023 3:21 PM EST Chief Complaint Patient presents with: Follow Up: 2 month HPI Vicki Randle is a 77 year old male who presents here today for repeat evaluation after hypotensionand fall at home in the shower 2 months ago. States that he has not had any recurrent falls at home. Pain from right rib fractures has resolved.Feels a lot better since we took him off of the amlodipine, though he did have 1 day a couple weeksago where he felt lightheadeded. BP was 89/55 on his home cuff so rested in his chair for the remainder of the day. BP slowly improved and felt better the next day. Tolerating PO diet without nausea,vomiting, diarrhea. Drinks about 4-5 bottles of water per day. Patient admits to feeling unsteady on his feet when he walks long distances and feels SOB. Denies chest pain. Has walker and canes at home, but does not use them. Canes are too short. Refused PT at last OV. Has been walking on his treadmill twice daily for 1 mile. BPH: denies nocturia on current regimen. Admits to chronic frequency during the day without dysuriaor hematuria. Still drinking about 5-6 shots of whisky in 1 day. Past medical history, appointments, medications, allergies reviewed. Previous Medical History PAST MEDICAL HISTORY Diagnosis Date AAA (abdominal aortic aneurysm) ([facility]) 02/06/2012 01/10/17: CT abd 4.8 cm. s/p aortobiliac stent.-Dr. Johan Berg Actinic keratosis On [place], Dr. Dudley Acute deep vein thrombosis (DVT) of femoral vein of left lower extremity ([facility]) 03/16/2018 02/19/18--on Eliquis At high risk for falls Basal cell carcinoma 2020 left cheek Benign essential tremor Benign hypertension 07/13/2015 BPH with obstruction/lower urinary tract symptoms Bruit right carotid artery Chewing tobacco use Class 1 obesity due to excess calories without serious comorbidity with body mass index (BMI) of 33.0 to 33.9 in adult Esophageal reflux Gastroesophageal reflux Facet arthritis of lumbar region 06/27/2014 History of carpal tunnel surgery 1990s Hypertrophy of prostate without urinary obstruction and other lower urinary tract symptoms (LUTS) Hypertrophy of the prostate w/o obstruction Left leg DVT ([facility]) 02/19/2018 Mixed hyperlipidemia Hyperlipidemia 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 Melo Personal history of colonic polyps Pulmonary emphysema ([facility]) 12/31/2016 Sebaceous cyst Situational depression 07/03/2016 Squamous cell carcinoma 04/04/2015 Left cheek Venous insufficiency of both lower extremities 07/01/2014 Previous Surgical History PAST SURGICAL HISTORY Procedure Laterality Date COLONOSCOPY 12/29/2017 adenomatous polyp, repeat in 5 years COLONOSCOPY FLX DX W/COLLJ SPEC WHEN PFRMD 08/17/2007 EXCISION TUMOR SOFT TISSUE THIGH/KNEE SUBQ <3CM REMOVED FATTY TUMORS FROM UNDER EXCISION TUMOR SOFT TISSUE THIGH/KNEE SUBQ <3CM RMOVED FATTY TUMORE INT REPAIR SCALP,JAYCOB,TRUNK 7.6-12.5CM 02/24/2007 back LAPS SURG CHOLECYSTECTOMY W/CHOLANGIOGRAPHY 09/07/2007 MRI 02/22/2014 [facility] - mri - right knee PAST SURGICAL HISTORY OF N/A 09/09/2017 Abdominal aneurysm aortic repair PAST SURGICAL HISTORY OF Right 2013 arthroscopic knee surgery PAST SURGICAL HISTORY OF Left excision of knee bursa REM LESION TRUNK,ARM,LEG > 4.0CM 02/24/2007 back REM LESION TRUNK,ARM,LEG > 4.0CM REVISE MEDIAN N/CARPAL TUNNEL SURG Bilateral 1990s SURGERY (GENERAL SURGERY) CONSULT 04/25/2015 Invasive squamous cell carcincoma see scanned documents Family History FAMILY HISTORY Problem Relation Age of Onset Emphysema Mother Arthritis Sister Hypertension Maternal Grandmother No Known Problems Son No Known Problems Son No Known Problems Son No Known Problems Son No Known Problems Son Patient Allergies ALLERGIES Allergen Reactions Lipitor [Atorvastat* Intolerance Medical Tape [Other] Itching Rosuvastatin Calcium Intolerance Kkswbmt-Isx-Cks Red* Myalgia Current Medications Current Outpatient Medications on File Prior to Visit Medication Sig evolocumab (REPATHA SURECLICK) 140 mg/mL pen injector Inject 140 mg subcutaneously every 2 weeks. finasteride (PROSCAR) 5 mg tablet Take 1 tablet by mouth once daily. gabapentin (NEURONTIN) 100 mg capsule Take 1 capsule by mouth three times daily for 90 days. omeprazole (PRILOSEC) 20 mg capsule Take 1 capsule by mouth every morning. tamsulosin (FLOMAX) 0.4 mg Take 1 capsule by mouth once daily. ELIQUIS 5 mg tab(s) Take 1 tablet by mouth twice daily. fluticasone (FLONASE) 50 mcg/actuation nasal spray Use 2 Sprays in each nostril once daily. Rinse mouth after use. brimonidine (ALPHAGAN) 0.2 % ophthalmic solution Use 1 Drop in both eyes twice daily. timolol maleate (TIMOPTIC) 0.5 % ophthalmic solution Use 1 Drop in both eyes twice daily. aspirin, enteric coated (ECOTRIN LOW STRENGTH) 81 mg EC tablet Take 1 tablet by mouth once daily. FLUoxetine (PROZAC) 20 mg capsule Take 1 capsule by mouth once daily. acetaminophen (TYLENOL) 325 mg tablet Take 3 tablets by mouth every 6 hours as needed for pain. (Patient not taking: Reported on 04/21/2023) Current Facility-Administered Medications on File Prior to Visit Medication perflutren lipid microspheres 1.3 mL in NaCl (PF) 0.9% 10 mL injection (DEFINITY) sodium chloride 0.9 % (flush) 10 mL (BD POSIFLUSH) Social History Social History Tobacco Use Smoking status: Former Packs/day: 1.00 Years: 30.00 Additional pack years: 0.00 Total pack years: 30.00 Types: Cigarettes Quit date: 06/02/1988 Years since quittin.9 Smokeless tobacco: Current Types: Chew Tobacco comments: Brief relaps after of spouse. Vaping Use Vaping Use: Never used Substance Use Topics Alcohol use: Yes Drug use: No Review of Symptoms REVIEW OF SYSTEMS GENERAL: No weight loss, malaise or fevers RESPIRATORY: Negative for cough, hemoptysis, wheezing, COPD, dyspnea or shortness of breath CARDIOVASCULAR: Negative for chest pain, leg swelling, hypertension, CHF or palpitations GI: No nausea, vomiting, or diarrhea SKIN: Negative for lesions, rash, and itching EXAM: BP 126/70 Pulse 81 Resp 20 Wt 108.4 kg (239 lb) SpO2 97% BMI 31.53 kg/m General Appearance: Well appearing, alert, in no acute distress, well-hydrated, well nourished.. Skin: Skin color, texture, turgor normal, no suspicious rashes or lesions. Lungs: Lungs clear to auscultation. No wheezing, rhonchi, rales.. Heart: RRR without murmur, gallop, or rubs. No ectopy. Abdomen: Normal abdominal exam, Abdomen soft, non-tender. Bowel sounds normal. No masses, organomegaly. 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 Good capillary refill. . Health Maintenance List Hepatitis C Screening Never done Shingrix Vaccine(1 of 2) Never done RSV Vaccine(1 - 1-dose 60+ series) Never done Advance Directive Discussion Never done Covid-19 Vaccine(2022- season) due on 01/31/2023 Annual PCP Team Chronic Disease Visit due on 04/21/2024 BP Controlled (<130/80) due on 04/21/2024 Diabetes Screening due on 07/04/2025 DTaP,Tdap,Td Vaccine(4 - Td or Tdap) due on 03/26/2032 Spirometry Completed Influenza Vaccine Completed Pneumococcal Vaccine: 65+ Completed HPV Vaccine Aged Out Colorectal Cancer Screening Discontinued Data reviewed Component Latest Ref Rng & Units 07/04/2022 02/18/2023 WBC 3.70 - 11.00 k/uL 7.53 9.96 RBC 4.20 - 6.00 m/uL 4.55 4.50 Hemoglobin 13.0 - 17.0 g/dL 14.0 13.0 Hematocrit 39.0 - 51.0 % 43.2 41.3 MCV 80.0 - 100.0 fL 94.9 91.8 MCH 26.0 - 34.0 pg 30.8 28.9 MCHC 30.5 - 36.0 g/dL 32.4 31.5 RDW-CV 11.5 - 15.0 % 12.5 14.2 Platelet Count 150 - 400 k/uL 196 251 MPV 9.0 - 12.7 fL 10.6 10.5 Neut% % 77.5 80.8 Abs Neut (ANC) 1.45 - 7.50 k/uL 5.83 8.04 (H) Lymph% % 13.4 8.7 Abs Lymph 1.00 - 4.00 k/uL 1.01 0.87 (L) [place]% % 6.6 9.1 Abs [place] <0.87 k/uL 0.50 0.91 (H) Eosin% % 1.9 0.7 Abs Eosin <0.46 k/uL 0.14 0.07 Baso% % 0.5 0.3 Abs Baso <0.11 k/uL 0.04 0.03 Immature Gran % % 0.1 0.4 IMMATURE GRANS (ABS) <0.10 k/uL <0.03 0.04 NRBC /100 WBC 0.0 0.0 Absolute nRBC <0.01 k/uL <0.01 <0.01 DTYPE Auto Auto Protein, Total 6.3 - 8.0 g/dL 7.5 Albumin 3.9 - 4.9 g/dL 4.1 Calcium 8.5 - 10.2 mg/dL 9.2 Bilirubin, Total 0.2 - 1.3 mg/dL 0.4 Alkaline Phosphatase 38 - 113 U/L 104 AST 14 - 40 U/L 19 ALT 10 - 54 U/L 12 Glucose 74 - 99 mg/dL 112 (H) BUN 9 - 24 mg/dL 8 (L) Creatinine 0.73 - 1.22 mg/dL 0.95 Sodium 136 - 144 mmol/L 138 Potassium 3.7 - 5.1 mmol/L 3.9 Chloride 97 - 105 mmol/L 101 CO2 22 - 30 mmol/L 27 Anion Gap 9 - 18 mmol/L 10 eGFR >=60 mL/min/1.73m 82 ASSESSMENT/PLAN: 1. Unsteady gait when walking - ICD9: 781.2, ICD10: R26.81 (primary diagnosis) Patient refusing PT referral. Discussed risks of falls including disability, intracranial hemorrhage with anticoagulation, hospitalization, and . Agreeable to new cane to help with balance. Red flags for re-assessment reviewed with patient in detail. - CANE, ADJUSTABLE 2. Fall in home, initial encounter - ICD9: E888.9, E849.0, ICD10: W19.XXXA, Y92.009 3. Rib pain on right side - ICD9: 786.50, ICD10: R07.81 Resolved. 4. Benign hypertension - ICD9: 401.1, ICD10: I10 - Controlled - Continue current medications - Recommend home blood pressure monitoring, to bring results to next visit - Encouraged sodium restriction, DASH or Mediterranean diet - Recommend regular aerobic exercise 5. Hyperlipidemia with target LDL less than 100 - ICD9: 272.4, ICD10: E78.5 - Controlled - Continue current medications - Counseled on healthy diet and regular exercise 6. CHAU (dyspnea on exertion) - ICD9: 786.09, ICD10: R06.09 Improved. Will monitor. 7. BPH with obstruction/lower urinary tract symptoms - ICD9: 600.01, 599.69, ICD10: N40.1, N13.8 Stable on current regimen. 8. History of DVT of lower extremity - ICD9: V12.51, ICD10: Z86.718 Discussed stopping anticoagulation due to fall risk at last OV. Patient refusing and is concerned about recurrent clots. Will continue for the time being and discuss further at future OV. 9. Chronic anticoagulation - ICD9: V58.61, ICD10: Z79.01 See above. 10. Encounter for immunization - ICD9: V03.89, ICD10: Z23 - PFIZER-BIONTECH COVID-19 VACCINE (2022- [place]) AGE 12+ YR Kanchan Ge MD [facility] Miscellaneous Notes* Telephone Encounter - Fadumo Pavon MA - 04/14/2023 2:39 PM EST Left detailed message for patient to contact office. Fadumo Pavon MA * Telephone Encounter - Kanchan Ge MD - 04/14/2023 1:28 PM EST Rx sent. * Telephone Encounter - Peace Hopper LPN - 04/14/2023 11:40 AM EST Patient phones requesting refills as follows: Requested Prescriptions Pending Prescriptions Disp Refills evolocumab (REPATHA SURECLICK) 140 mg/mL pen injector 6 mL 1 Sig: Inject 140 mg subcutaneously every 2 weeks. BRY 02/18/2023 NOV 04/21/2023 Please review and advise. Peace Hopper LPN * Telephone Encounter - Yajaira Robertson - 04/14/2023 11:14 AM EST evolocumab (REPATHA SURECLICK) 140 mg/mL pen injector 6 mL 1 09/16/2022 03/15/2023 Sig: Inject 140 mg subcutaneously every 2 weeks. Sent to pharmacy as: evolocumab (REPATHA SURECLICK) 140 mg/mL pen injector Class: Normal [facility] [place]. documented in this encounterK[facility]09[facility] History of Present illness Narrative* Sera Rubio RT(R) - 02/19/2023 3:40 PM EDT Radiology Service Progress Note PATIENT NAME: Vicki Randle DATE OF SERVICE: February 19, 2023 TIME: 4:00 PM PATIENT IDENTITY VERIFICATION COMPLETED USING TWO (2) IDENTIFIERS: Name and Date of confirmedby patient verbally. FALL SCREENING: Has the patient had 2 falls in the last year or 1 fall with injury or currently using an Ambulatory Assistive Device (Walker, Cane, Wheelchair, Crutches, etc.)? No PATIENT GENDER DATA: Male PATIENT RELEVANT IMPLANT DATA REVIEWED: Yes RADIOLOGY DEPARTMENT: CT; Exam(s) Completed: Brain PERIPHERAL IV DATA: Not applicable SIGNED BY: RT Tavon(R) February 19, 2023 4:00 PM documented in this encounterK[facility]09-20-2023 Miscellaneous Notes* Telephone Encounter - Fadumo Pavon MA - 02/19/2023 12:58 PM EDT Pt notified and verbalized understanding. Fadumo Pavon MA * Telephone Encounter - Fadumo Pavon MA - 02/19/2023 12:17 PM EDT ----- Message from Kanchan Ge MD sent at 02/19/2023 8:09 AM EDT ----- Blood work negative for anemia after head injury with bleeding. documented in this encounterK[facility]09-19-2023 History of Present illness Narrative* June Vela RT(R) - 02/18/2023 4:30 PM EDT Radiology Service Progress Note PATIENT NAME: Vicki Randle DATE OF SERVICE: February 18, 2023 TIME: 4:27 PM PATIENT IDENTITY VERIFICATION COMPLETED USING TWO (2) IDENTIFIERS: Name and Date of confirmedby patient verbally. FALL SCREENING: Has the patient had 2 falls in the last year or 1 fall with injury or currently using an Ambulatory Assistive Device (Walker, Cane, Wheelchair, Crutches, etc.)? Yes, Patient High Riskfor Falls What interventions were put in place to prevent falls during this visit? Instructed Patient to Callfor Help if Needed, Offered Assistance with Transfers/Clothing, and Increased Observations by Caregivers PATIENT GENDER DATA: Male PATIENT RELEVANT IMPLANT DATA REVIEWED: Yes RADIOLOGY DEPARTMENT: General X-ray: Exam(s) Completed: Rib X-Ray: Right PERIPHERAL IV DATA: Not applicable SIGNED BY: RT Junior(R) February 18, 2023 4:27 PM documented in this encounterK[facility]09-19-2023 History of Present illness Narrative* Kanchan Ge MD - 02/18/2023 3:16 PM EDT Chief Complaint Patient presents with: Follow Up: HR and Bp recheck HPI Vicki Randle is a 77 year old male who presents here today for Above Complaints.. At last OV, we discontinued the patient's amlodipine due to hypotension and recommended he increasehis water intake and decrease alcohol intake. Since last OV, he has been checking his BP at home on a daily basis with typical readings in the 120's/65-80 range. Did have one day where his systolic BP was <100 and felt lightheaded without falls or syncope. Drinking 3-4 bottles of water per day. Still drinking about 4-5 shots of whiskey at night. Also notes that he fell out of his shower about a week ago. Tripped while stepping out, was holdingonto grab bar. Skinned his his nose on the floor and injured right lower anterior rib. Nose bled for about 30 minutes with pressure applied. Did not have LOC and was able to get up on his own. Has not fallen since. Denies headache, vision changes, slurred speech, facial droop, numbness/tingling, orweakness. Past medical history, appointments, medications, allergies reviewed. Previous Medical History PAST MEDICAL HISTORY Diagnosis Date AAA (abdominal aortic aneurysm) ([facility]) 02/06/2012 01/10/17: CT abd 4.8 cm. s/p aortobiliac stent.-Dr. Johan Berg Actinic keratosis On [place], Dr. Dudley Acute deep vein thrombosis (DVT) of femoral vein of left lower extremity ([facility]) 03/16/2018 02/19/18--on Eliquis At high risk for falls Basal cell carcinoma 2020 left cheek Benign essential tremor Benign hypertension 07/13/2015 BPH with obstruction/lower urinary tract symptoms Bruit right carotid artery Chewing tobacco use Class 1 obesity due to excess calories without serious comorbidity with body mass index (BMI) of 33.0 to 33.9 in adult Esophageal reflux Gastroesophageal reflux Facet arthritis of lumbar region 06/27/2014 History of carpal tunnel surgery Hypertrophy of prostate without urinary obstruction and other lower urinary tract symptoms (LUTS) Hypertrophy of the prostate w/o obstruction Left leg DVT ([facility]) 02/19/2018 Mixed hyperlipidemia Hyperlipidemia 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 Melo Personal history of colonic polyps Pulmonary emphysema ([facility]) 12/31/2016 Sebaceous cyst Situational depression 07/03/2016 Squamous cell carcinoma 04/04/2015 Left cheek Venous insufficiency of both lower extremities 07/01/2014 Previous Surgical History PAST SURGICAL HISTORY Procedure Laterality Date COLONOSCOPY 12/29/2017 adenomatous polyp, repeat in 5 years COLONOSCOPY FLX DX W/COLLJ SPEC WHEN PFRMD 08/17/2007 EXCISION TUMOR SOFT TISSUE THIGH/KNEE SUBQ <3CM REMOVED FATTY TUMORS FROM UNDER EXCISION TUMOR SOFT TISSUE THIGH/KNEE SUBQ <3CM RMOVED FATTY TUMORE INT REPAIR SCALP,JAYCOB,TRUNK 7.6-12.5CM 02/24/2007 back LAPS SURG CHOLECYSTECTOMY W/CHOLANGIOGRAPHY 09/07/2007 MRI 02/22/2014 [facility] - mri - right knee PAST SURGICAL HISTORY OF N/A 09/09/2017 Abdominal aneurysm aortic repair PAST SURGICAL HISTORY OF Right 2013 arthroscopic knee surgery PAST SURGICAL HISTORY OF Left excision of knee bursa REM LESION TRUNK,ARM,LEG > 4.0CM 02/24/2007 back REM LESION TRUNK,ARM,LEG > 4.0CM REVISE MEDIAN N/CARPAL TUNNEL SURG Bilateral 1990s SURGERY (GENERAL SURGERY) CONSULT 04/25/2015 Invasive squamous cell carcincoma see scanned documents Family History FAMILY HISTORY Problem Relation Age of Onset Emphysema Mother Arthritis Sister Hypertension Maternal Grandmother No Known Problems Son No Known Problems Son No Known Problems Son No Known Problems Son No Known Problems Son Patient Allergies ALLERGIES Allergen Reactions Lipitor [Atorvastat* Intolerance Medical Tape [Other] Itching Rosuvastatin Calcium Intolerance Yjrxxjz-Mxz-Jbm Red* Myalgia Current Medications Current Outpatient Medications on File Prior to Visit Medication Sig finasteride (PROSCAR) 5 mg tablet Take 1 tablet by mouth once daily. gabapentin (NEURONTIN) 100 mg capsule Take 1 capsule by mouth three times daily for 90 days. omeprazole (PRILOSEC) 20 mg capsule Take 1 capsule by mouth every morning. evolocumab (REPATHA SURECLICK) 140 mg/mL pen injector Inject 140 mg subcutaneously every 2 weeks. tamsulosin (FLOMAX) 0.4 mg Take 1 capsule by mouth once daily. FLUoxetine (PROZAC) 20 mg capsule Take 1 capsule by mouth once daily. ELIQUIS 5 mg tab(s) Take 1 tablet by mouth twice daily. fluticasone (FLONASE) 50 mcg/actuation nasal spray Use 2 Sprays in each nostril once daily. Rinse mouth after use. brimonidine (ALPHAGAN) 0.2 % ophthalmic solution Use 1 Drop in both eyes twice daily. timolol maleate (TIMOPTIC) 0.5 % ophthalmic solution Use 1 Drop in both eyes twice daily. aspirin, enteric coated (ECOTRIN LOW STRENGTH) 81 mg EC tablet Take 1 tablet by mouth once daily. acetaminophen (TYLENOL) 325 mg tablet Take 3 tablets by mouth every 6 hours as needed for pain. (Patient not taking: Reported on 10/01/2022) Current Facility-Administered Medications on File Prior to Visit Medication perflutren lipid microspheres 1.3 mL in NaCl (PF) 0.9% 10 mL injection (DEFINITY) sodium chloride 0.9 % (flush) 10 mL (BD POSIFLUSH) Social History Social History Tobacco Use Smoking status: Former Packs/day: 1.00 Years: 30.00 Additional pack years: 0.00 Total pack years: 30.00 Types: Cigarettes Quit date: 06/02/1988 Years since quittin.7 Smokeless tobacco: Current Types: Chew Tobacco comments: Brief relaps after of spouse. Vaping Use Vaping Use: Never used Substance Use Topics Alcohol use: Yes Drug use: No Review of Symptoms REVIEW OF SYSTEMS GENERAL: No weight loss, malaise or fevers RESPIRATORY: Negative for cough, hemoptysis, wheezing, COPD, dyspnea or shortness of breath CARDIOVASCULAR: Negative for chest pain, leg swelling, hypertension, CHF or palpitations EXAM: BP 108/62 Pulse 109 Resp 22 SpO2 98% General Appearance: Well appearing, alert, in no acute distress, well-hydrated, well nourished.. Skin: scabbing over bridge of his nose without facial bruising or swelling. Head: Normocephalic, no masses, lesions, tenderness or abnormalities. Eyes: Anicteric sclera. Pupils are equally round and reactive to light. Extraocular movements are intact. . Ears: External ears normal, canals clear. Oropharynx: Lips, mucosa, and tongue normal, teeth and gums normal, oropharynx normal. Lungs: Lungs clear to auscultation. No wheezing, rhonchi, rales.. Heart: RRR without murmur, gallop, or rubs. No ectopy. Musculoskeletal: TTP over right anterior ribs without bruising, swelling, or crepitus. Health Maintenance List Hepatitis C Screening Never done Shingrix Vaccine(1 of 2) Never done Advance Directive Discussion Never done Influenza Vaccine(1) due on 01/31/2023 Annual PCP Team Chronic Disease Visit due on 02/19/2024 BP Controlled (<130/80) due on 02/19/2024 Diabetes Screening due on 07/04/2025 DTaP,Tdap,Td Vaccine(3 - Td or Tdap) due on 06/15/2029 Spirometry Completed Covid-19 Vaccine Completed Pneumococcal Vaccine: 65+ Completed HPV Vaccine Aged Out Colorectal Cancer Screening Discontinued ASSESSMENT/PLAN: 1. Fall in home, initial encounter - ICD9: E888.9, E849.0, ICD10: W19.XXXA, Y92.009 (primary diagnosis) Patient with fall in bathroom with head injury. Obtain imaging to rule out rib fracture and intracranial hemorrhage. Discussed being high risk for falls on anticoagulation. Patient hesitant to stop anticoagulation due to recurrent DVT. Not interested in IVC filter. Refusing referral to PT. - XR RIBS/CHEST 3V AP RIB/OBLS/CXR RIGHT 2. Rib pain on right side - ICD9: 786.50, ICD10: R07.81 - XR RIBS/CHEST 3V AP RIB/OBLS/CXR RIGHT 3. Encounter for immunization - ICD9: V03.89, ICD10: Z23 - INFLUENZA VACCINE, PRSV FREE, AGE 65+ YR, HIGH DOSE, QUADRIVALENT (FLUZONE HIGH-DOSE) 4. Injury of head, initial encounter - ICD9: 959.01, ICD10: S09.90XA See above. - CT BRAIN WO IVCON - CBC + DIFF - CT BRAIN WO IVCON 5. Hypotension, unspecified hypotension type - ICD9: 458.9, ICD10: I95.9 Improved on current regimen. 6. Alcohol use disorder, mild, abuse - ICD9: 305.00, ICD10: F10.10 Discussed abstinence from alcohol. Kanchan Ge MD documented [facility]23 Instructions* Patient Instructions* Kanchan Ge MD - 01/30/2023 3:52 PM EDT Call if blood pressure is still less than 100/60 without amlodipine or if heart rate above 100. Go to the ER if HR above 120 or you feel ill with low blood pressure. documented in this encounterK[facility]08-31-2023 History of Present illness Narrative* Kanchan Ge MD - 01/30/2023 3:06 PM EDT Chief Complaint Patient presents with: Follow Up: 2 WK FU BP HPI Vicki Randle is a 77 year old male who presents here today for Above Complaints.. At last OV we decreased his amlodipine to 2.5 mg daily due to orthostatic lightheadedness with fallat home and borderline orthostatics in office. Today, he states he has decreased his medication andhis lightheadedness has improved, but not resolved. Has not had any falls or syncopal episodes. Checking BP at home and thinks his readings have been around 115/70. BP low on initial check today and HR elevated. Only drinking about 2 bottles of water per day. Every other day will also drink large bottle of Gatorade. Denies feeling lightheaded/dizzy, chest pain, SOB, palpitations, nausea, vomiting, diarrhea. Does not drink caffeine or smoke. Admits to drinking about 4-5 shots of whiskey at nightbefore bed to help with sleep. Has compression stockings at home, but has not been wearing them. Patient states he had stress test completed yesterday, but is not compiled yet. Past medical history, appointments, medications, allergies reviewed. Previous Medical History PAST MEDICAL HISTORY Diagnosis Date AAA (abdominal aortic aneurysm) ([facility]) 02/06/2012 01/10/17: CT abd 4.8 cm. s/p aortobiliac stent.-Dr. Johan Berg Actinic keratosis On [facility], Dr. Dudley Acute deep vein thrombosis (DVT) of femoral vein of left lower extremity ([facility]) 03/16/2018 02/19/18--on Eliquis At high risk for falls Basal cell carcinoma 2020 left cheek Benign essential tremor Benign hypertension 07/13/2015 BPH with obstruction/lower urinary tract symptoms Bruit right carotid artery Chewing tobacco use Class 1 obesity due to excess calories without serious comorbidity with body mass index (BMI) of 33.0 to 33.9 in adult Esophageal reflux Gastroesophageal reflux Facet arthritis of lumbar region 06/27/2014 History of carpal tunnel surgery 1990s Hypertrophy of prostate without urinary obstruction and other lower urinary tract symptoms (LUTS) Hypertrophy of the prostate w/o obstruction Left leg DVT ([facility]) 02/19/2018 Mixed hyperlipidemia Hyperlipidemia 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 Melo Personal history of colonic polyps Pulmonary emphysema ([facility]) 12/31/2016 Sebaceous cyst Situational depression 07/03/2016 Squamous cell carcinoma 04/04/2015 Left cheek Venous insufficiency of both lower extremities 07/01/2014 Previous Surgical History PAST SURGICAL HISTORY Procedure Laterality Date COLONOSCOPY 12/29/2017 adenomatous polyp, repeat in 5 years COLONOSCOPY FLX DX W/COLLJ SPEC WHEN PFRMD 08/17/2007 EXCISION TUMOR SOFT TISSUE THIGH/KNEE SUBQ <3CM REMOVED FATTY TUMORS FROM UNDER EXCISION TUMOR SOFT TISSUE THIGH/KNEE SUBQ <3CM RMOVED FATTY TUMORE INT REPAIR SCALP,JAYCOB,TRUNK 7.6-12.5CM 02/24/2007 back LAPS SURG CHOLECYSTECTOMY W/CHOLANGIOGRAPHY 09/07/2007 MRI 02/22/2014 [facility] - mri - right knee PAST SURGICAL HISTORY OF N/A 09/09/2017 Abdominal aneurysm aortic repair PAST SURGICAL HISTORY OF Right 2013 arthroscopic knee surgery PAST SURGICAL HISTORY OF Left excision of knee bursa REM LESION TRUNK,ARM,LEG > 4.0CM 02/24/2007 back REM LESION TRUNK,ARM,LEG > 4.0CM REVISE MEDIAN N/CARPAL TUNNEL SURG Bilateral 1990s SURGERY (GENERAL SURGERY) CONSULT 04/25/2015 Invasive squamous cell carcincoma see scanned documents Family History FAMILY HISTORY Problem Relation Age of Onset Emphysema Mother Arthritis Sister Hypertension Maternal Grandmother No Known Problems Son No Known Problems Son No Known Problems Son No Known Problems Son No Known Problems Son Patient Allergies ALLERGIES Allergen Reactions Lipitor [Atorvastat* Intolerance Medical Tape [Other] Itching Rosuvastatin Calcium Intolerance Zwljdqv-Lut-Kcm Red* Myalgia Current Medications Current Outpatient Medications on File Prior to Visit Medication Sig amLODIPine (NORVASC) 2.5 mg tablet Take 1 tablet by mouth once daily. omeprazole (PRILOSEC) 20 mg capsule Take 1 capsule by mouth every morning. evolocumab (REPATHA SURECLICK) 140 mg/mL pen injector Inject 140 mg subcutaneously every 2 weeks. tamsulosin (FLOMAX) 0.4 mg Take 1 capsule by mouth once daily. gabapentin (NEURONTIN) 100 mg capsule Take 1 capsule by mouth three times daily for 30 days. FLUoxetine (PROZAC) 20 mg capsule Take 1 capsule by mouth once daily. ELIQUIS 5 mg tab(s) Take 1 tablet by mouth twice daily. finasteride (PROSCAR) 5 mg tablet Take 1 tablet by mouth once daily. brimonidine (ALPHAGAN) 0.2 % ophthalmic solution Use 1 Drop in both eyes twice daily. timolol maleate (TIMOPTIC) 0.5 % ophthalmic solution Use 1 Drop in both eyes twice daily. aspirin, enteric coated (ECOTRIN LOW STRENGTH) 81 mg EC tablet Take 1 tablet by mouth once daily. acetaminophen (TYLENOL) 325 mg tablet Take 3 tablets by mouth every 6 hours as needed for pain. (Patient not taking: Reported on 10/01/2022) fluticasone (FLONASE) 50 mcg/actuation nasal spray Use 2 Sprays in each nostril once daily. Rinse mouth after use. (Patient not taking: Reported on 10/01/2022) Current Facility-Administered Medications on File Prior to Visit Medication perflutren lipid microspheres 1.3 mL in NaCl (PF) 0.9% 10 mL injection (DEFINITY) sodium chloride 0.9 % (flush) 10 mL (BD POSIFLUSH) Social History Social History Tobacco Use Smoking status: Former Packs/day: 1.00 Years: 30.00 Additional pack years: 0.00 Total pack years: 30.00 Types: Cigarettes Quit date: 06/02/1988 Years since quittin.6 Smokeless tobacco: Current Types: Chew Tobacco comments: Brief relaps after of spouse. Vaping Use Vaping Use: Never used Substance Use Topics Alcohol use: Yes Drug use: No Review of Symptoms REVIEW OF SYSTEMS GENERAL: No weight loss, malaise or fevers RESPIRATORY: Negative for cough, hemoptysis, wheezing, COPD, dyspnea or shortness of breath CARDIOVASCULAR: Negative for chest pain, leg swelling, hypertension, CHF or palpitations GI: No nausea, vomiting, or diarrhea SKIN: Negative for lesions, rash, and itching EXAM: BP 90/60 (BP Site: Left Arm, BP Position: Sitting, BP Cuff Size: Large Adult) Pulse 118 Resp 22 Wt 107.5 kg (237 lb) SpO2 95% BMI 31.27 kg/m General Appearance: Well appearing, alert, in no acute distress, well-hydrated, well nourished.. Skin: Skin color, texture, turgor normal, no suspicious rashes or lesions. Lungs: Lungs clear to auscultation. No wheezing, rhonchi, rales.. Heart: Negative findings: no murmurs, clicks, or gallops, Positive findings: tachycardia. Abdomen: Normal abdominal exam, Abdomen soft, non-tender. Bowel sounds normal. No masses, organomegaly. 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 Good capillary refill. . Health Maintenance List HEPATITIS C SCREENING Never done SHINGRIX VACCINE(1 of 2) Never done ADVANCE DIRECTIVE DISCUSSION Never done INFLUENZA(1) due on 01/31/2023 ANNUAL PCP TEAM CHRONIC DISEASE VISIT due on 01/17/2024 BP CONTROLLED (<130/80) due on 01/17/2024 DIABETES SCREEN due on 07/04/2025 DTAP,TDAP,TD(3 - Td or Tdap) due on 06/15/2029 SPIROMETRY Completed COVID-19 VACCINE Completed PNEUMOCOCCAL: 65+ Completed HPV VACCINE Aged Out COLORECTAL CANCER SCREENING Discontinued Data reviewed External labs from 01/20 reviewed and normal. BNP normal at 46. ASSESSMENT/PLAN: 1. Hypotension, unspecified hypotension type - ICD9: 458.9, ICD10: I95.9 (primary diagnosis) BP low today despite lowering his dose of amlodipine. Denies signs of infection/sepsis. Does not drink much water. Recommended cessation of his amlodipine. Also discussed cessation of flomax for orthostatic hypotension, which he is refusing. Push PO fluids. Reduce nightly alcohol use. Wear compressi on stockings daily. F/u in 2 weeks for recheck. 2. Alcohol use disorder, mild, abuse - ICD9: 305.00, ICD10: F10.10 See above 3. Essential tremor - ICD9: 333.1, ICD10: G25.0 Requesting refill. PDMP website checked and validated. All prescriptions have been APPROPRIATELY filled. No suspiciousactivity was identified. 01/31/2023 by Kanchan Ge MD I spent a total of 30 minutes on the date of the service which included preparing to see the patient, [id number] patient care, completing clinical documentation, obtaining and/or reviewing separately obtained history, performing a medically appropriate examination, counseling and educating the pat ient/family/caregiver, and ordering medications, tests, or procedures. - GABAPENTIN 100 MG CAPSULE Kanchan eG MD documented in this encounterCleveland [id number] Miscellaneous Notes* Telephone Encounter - Yosef Ya RN - 01/17/2023 9:49 AM EDT Pt called and is notified of providers results and instructions. Pt voices understanding. Yosef Ya RN * Telephone Encounter - Juanita Ashford OCCA - 01/17/2023 7:52 AM EDT ----- Message from Kanchan Ge MD sent at 01/16/2023 5:21 PM EDT ----- Chest xray negative for acute abnormality including infection or fluid overload. Awaiting lab results. documented in this encounterK[facility] History of Present illness Narrative* Kanchan Ge MD - 01/16/2023 2:16 PM EDT Chief Complaint Patient presents with: Follow Up: 3 month HPI Vicki Randle is a 77 year old male who presents here today for Above Complaints. Has been in good health without recent hospitalization or ER visits. Previous HPI: HTN: Patient is compliant with meds Yes Monitors bp at home: Yes. 120/70's Denies side effects: No. Chest pain: No. Dyspnea: No. Edema: No. Palpitations: No. Syncope: No. Headache: No. Dizziness: No. GERD: taking omeprazole as prescribed without side effects. Denies breakthrough symptoms BPH: taking proscar and flomax as prescribed. Denies nocturia, difficulty emptying bladder, difficulty initiating urination, dysuria, urinary urgency/frequency or hematuria AAA: Had recent US and has follow-up next Friday with Dr. Berg Drinks a glass of whiskey every night Follow with respiratory coordinator for hx of a BCC. Last office visit was 3 weeks ago. Follows with him every three months Fading bruise under right eye noted. Asked patient what happened and he reports stool he went to sit on came out from under him and hit under eye on corner of counter a few weeks ago. Did not go to hospital. Denies other injuries, other falls, LOC, headaches, visual changes, or confusion. Denies hewas drinking when this occurred. Reports he only drinks a small glass of whiskey before bed. Anticoagulated for hx of DVT's Denies bleeding symptoms Interim: Patient states that about a month ago he had a fall at home. Stood up quickly and felt lightheaded and feel forward onto kitchen floor scraping up his right arm. He tells me he did not hit his head, but could have blacked out. Thinks it may have been a couple of minutes at most. Fall was not witnessed. Was able to get up without assistance. Lives alone and does not have fall alert device. Does have cane and walker, but does not use it. Does lose his balance. Today, he admits to feeling more SOBin the last month. denies: headache, vision changes, chest pain, palpitations, lightheadedness/dizziness, vomiting, diarrhea. Notes feet have been swollen for about a month now. Has compression stockings at home, but has not been wearing them. Patient continues to take Eliquis for history of DVT. Denies heavy bleeding or easy bruising symptoms. BP well controlled on current regimen. AAA s/p repair in 2018. Reviewed US from September obtained by Dr. Stephanie Berg. Recommending he continue to follow up yearly. GERD: controlled on Prilosec BPH: Taking flomax daily as is not needing to get up at all at night to urinate. Denies weak stream, straining, dysuria, hematuria. Past medical history, appointments, medications, allergies reviewed. Previous Medical History PAST MEDICAL HISTORY Diagnosis Date AAA (abdominal aortic aneurysm) ([facility]) 02/06/2012 01/10/17: CT abd 4.8 cm. s/p aortobiliac stent.-Dr. Johan Berg Actinic keratosis On [place], Dr. Dudley Acute deep vein thrombosis (DVT) of femoral vein of left lower extremity ([facility]) 03/16/2018 02/19/18--on Eliquis At high risk for falls Basal cell carcinoma 2020 left cheek Benign essential tremor Benign hypertension 07/13/2015 BPH with obstruction/lower urinary tract symptoms Bruit right carotid artery Chewing tobacco use Class 1 obesity due to excess calories without serious comorbidity with body mass index (BMI) of 33.0 to 33.9 in adult Esophageal reflux Gastroesophageal reflux Facet arthritis of lumbar region 06/27/2014 History of carpal tunnel surgery Hypertrophy of prostate without urinary obstruction and other lower urinary tract symptoms (LUTS) Hypertrophy of the prostate w/o obstruction Left leg DVT (HCC) 02/19/2018 Mixed hyperlipidemia Hyperlipidemia 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 Melo Personal history of colonic polyps Pulmonary emphysema (HCC) 12/31/2016 Sebaceous cyst Situational depression 07/03/2016 Squamous cell carcinoma 04/04/2015 Left cheek Venous insufficiency of both lower extremities 07/01/2014 Previous Surgical History PAST SURGICAL HISTORY Procedure Laterality Date COLONOSCOPY 12/29/2017 adenomatous polyp, repeat in 5 years COLONOSCOPY FLX DX W/COLLJ SPEC WHEN PFRMD 08/17/2007 EXCISION TUMOR SOFT TISSUE THIGH/KNEE SUBQ <3CM REMOVED FATTY TUMORS FROM UNDER EXCISION TUMOR SOFT TISSUE THIGH/KNEE SUBQ <3CM RMOVED FATTY TUMORE INT REPAIR SCALP,JAYCOB,TRUNK 7.6-12.5CM 02/24/2007 back LAPS SURG CHOLECYSTECTOMY W/CHOLANGIOGRAPHY 09/07/2007 MRI 02/22/2014 [facility] - mri - right knee PAST SURGICAL HISTORY OF N/A 09/09/2017 Abdominal aneurysm aortic repair PAST SURGICAL HISTORY OF Right 2013 arthroscopic knee surgery PAST SURGICAL HISTORY OF Left excision of knee bursa REM LESION TRUNK,ARM,LEG > 4.0CM 02/24/2007 back REM LESION TRUNK,ARM,LEG > 4.0CM REVISE MEDIAN N/CARPAL TUNNEL SURG Bilateral 1990s SURGERY (GENERAL SURGERY) CONSULT 04/25/2015 Invasive squamous cell carcincoma see scanned documents Family History FAMILY HISTORY Problem Relation Age of Onset Emphysema Mother Arthritis Sister Hypertension Maternal Grandmother No Known Problems Son No Known Problems Son No Known Problems Son No Known Problems Son No Known Problems Son Patient Allergies ALLERGIES Allergen Reactions Lipitor [Atorvastat* Intolerance Medical Tape [Other] Itching Rosuvastatin Calcium Intolerance Lonhhpe-Nfx-Eze Red* Myalgia Current Medications Current Outpatient Medications on File Prior to Visit Medication Sig omeprazole (PRILOSEC) 20 mg capsule Take 1 capsule by mouth every morning. evolocumab (REPATHA SURECLICK) 140 mg/mL pen injector Inject 140 mg subcutaneously every 2 weeks. tamsulosin (FLOMAX) 0.4 mg Take 1 capsule by mouth once daily. gabapentin (NEURONTIN) 100 mg capsule Take 1 capsule by mouth three times daily for 30 days. amLODIPine (NORVASC) 5 mg tablet Take 1 tablet by mouth once daily. FLUoxetine (PROZAC) 20 mg capsule Take 1 capsule by mouth once daily. ELIQUIS 5 mg tab(s) Take 1 tablet by mouth twice daily. finasteride (PROSCAR) 5 mg tablet Take 1 tablet by mouth once daily. acetaminophen (TYLENOL) 325 mg tablet Take 3 tablets by mouth every 6 hours as needed for pain. (Patient not taking: Reported on 10/01/2022) fluticasone (FLONASE) 50 mcg/actuation nasal spray Use 2 Sprays in each nostril once daily. Rinse mouth after use. (Patient not taking: Reported on 10/01/2022) brimonidine (ALPHAGAN) 0.2 % ophthalmic solution Use 1 Drop in both eyes twice daily. timolol maleate (TIMOPTIC) 0.5 % ophthalmic solution Use 1 Drop in both eyes twice daily. aspirin, enteric coated (ECOTRIN LOW STRENGTH) 81 mg EC tablet Take 1 tablet by mouth once daily. No current facility-administered medications on file prior to visit. Social History Social History Tobacco Use Smoking status: Former Packs/day: 1.00 Years: 30.00 Additional pack years: 0.00 Total pack years: 30.00 Types: Cigarettes Quit date: 06/02/1988 Years since quittin.6 Smokeless tobacco: Current Types: Chew Tobacco comments: Brief relaps after of spouse. Vaping Use Vaping Use: Never used Substance Use Topics Alcohol use: Yes Drug use: No Review of Symptoms REVIEW OF SYSTEMS GENERAL: No weight loss, malaise or fevers RESPIRATORY: Admits to cough which is productive with white sputum and SOB. Denies wheezing. CARDIOVASCULAR: See HPI GI: No nausea, vomiting, or diarrhea SKIN: Negative for lesions, rash, and itching EXAM: BP 110/62 Pulse 106 Temp 36.4 C (97.5 F) Resp 28 Wt 110.4 kg (243 lb 6.4 oz) SpO2 96% BMI 32.11 kg/m BP w/Orthostatic Vitals Date and Time Orthostatic BP Orthostatic Pulse BP Pulse BP Position BP Site BP Cuff Size 01/16/23 1555 118/56 99 -- -- Standing Left Arm Large Adult 01/16/23 1554 136/74 90 -- -- Supine Left Arm Large Adult 01/16/23 1420 -- -- 110/62 106 -- -- -- Peak Flow Date and Time PF Resp 01/16/23 1420 -- 28 General Appearance: Well appearing, alert, in no acute distress, well-hydrated, well nourished.. Skin: Skin color, texture, turgor normal, no suspicious rashes or lesions. Lungs: rales in left lower lobe with rhonchi without consolidation. CTA on left.. Heart: Negative findings: no murmurs, clicks, or gallops, Positive findings: tachycardia. Abdomen: Normal abdominal exam, Abdomen soft, non-tender. Bowel sounds normal. No masses, organomegaly. 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 Good capillary refill. . Health Maintenance List HEPATITIS C SCREENING Never done SHINGRIX VACCINE(1 of 2) Never done ADVANCE DIRECTIVE DISCUSSION Never done INFLUENZA(1) due on 01/31/2023 ANNUAL PCP TEAM CHRONIC DISEASE VISIT due on 10/02/2023 BP CONTROLLED (<130/80) due on 10/02/2023 DIABETES SCREEN due on 07/04/2025 DTAP,TDAP,TD(3 - Td or Tdap) due on 06/15/2029 SPIROMETRY Completed COVID-19 VACCINE Completed PNEUMOCOCCAL: 65+ Completed HPV VACCINE Aged Out COLORECTAL CANCER SCREENING Discontinued Data reviewed Component Latest Ref Rng & Units 07/04/2022 WBC 3.70 - 11.00 k/uL 7.53 RBC 4.20 - 6.00 m/uL 4.55 Hemoglobin 13.0 - 17.0 g/dL 14.0 Hematocrit 39.0 - 51.0 % 43.2 MCV 80.0 - 100.0 fL 94.9 MCH 26.0 - 34.0 pg 30.8 MCHC 30.5 - 36.0 g/dL 32.4 RDW-CV 11.5 - 15.0 % 12.5 Platelet Count 150 - 400 k/uL 196 MPV 9.0 - 12.7 fL 10.6 Neut% % 77.5 Abs Neut (ANC) 1.45 - 7.50 k/uL 5.83 Lymph% % 13.4 Abs Lymph 1.00 - 4.00 k/uL 1.01 [place]ard% % 6.6 Abs [place] <0.87 k/uL 0.50 Eosin% % 1.9 Abs Eosin <0.46 k/uL 0.14 Baso% % 0.5 Abs Baso <0.11 k/uL 0.04 Immature Gran % % 0.1 IMMATURE GRANS (ABS) <0.10 k/uL <0.03 NRBC /100 WBC 0.0 Absolute nRBC <0.01 k/uL <0.01 DTYPE Auto Protein, Total 6.3 - 8.0 g/dL 7.5 Albumin 3.9 - 4.9 g/dL 4.1 Calcium 8.5 - 10.2 mg/dL 9.2 Bilirubin, Total 0.2 - 1.3 mg/dL 0.4 Alkaline Phosphatase 38 - 113 U/L 104 AST 14 - 40 U/L 19 ALT 10 - 54 U/L 12 Glucose 74 - 99 mg/dL 112 (H) BUN 9 - 24 mg/dL 8 (L) Creatinine 0.73 - 1.22 mg/dL 0.95 Sodium 136 - 144 mmol/L 138 Potassium 3.7 - 5.1 mmol/L 3.9 Chloride 97 - 105 mmol/L 101 CO2 22 - 30 mmol/L 27 Anion Gap 9 - 18 mmol/L 10 eGFR >=60 mL/min/1.73m 82 EKG: NSR @ 91 bpm ASSESSMENT/PLAN: 1. CHAU (dyspnea on exertion) - ICD9: 786.09, ICD10: R06.09 (primary diagnosis) EKG unremarkable today. Mild LE edema which may be 2/2 fluid overload/CHF vs side effect from amlodipine. With recent lightheadedness and orthostatics borderline, will reduce his amlodipine to 2.5 mgdaily and obtain labs and imaging/stress testing to rule out CHF. - XR CHEST 2V FRONTAL/LAT - CBC + DIFF - COMP METABOLIC PANEL - NT PRO BNP - ECG COMPLETE - ECHO - PERFLUTREN LIPID MICROSPHERES 1.1 MG/ML INJECTION IN NS 10 ML - SODIUM CHLORIDE 0.9 % (FLUSH) INJECTION SYRINGE - NM CARDIAC PERF STRESS/PHARM 2. Bilateral lower extremity edema - ICD9: 782.3, ICD10: R60.0 See above. - ECG COMPLETE 3. Benign hypertension - ICD9: 401.1, ICD10: I10 - Controlled - Continue current medications - Recommend home blood pressure monitoring, to bring results to next visit - Encouraged sodium restriction, DASH or Mediterranean diet - Recommend regular aerobic exercise - AMLODIPINE 2.5 MG TABLET 4. Hyperlipidemia with target LDL less than 100 - ICD9: 272.4, ICD10: E78.5 - Control undetermined, due for labs - Continue current medications - Counseled on healthy diet and regular exercise 5. Gastroesophageal reflux disease, unspecified whether esophagitis present - ICD9: 530.81, ICD10: K21.9 - Continue treatment with Prilosec 20 mg QD 6. BPH with obstruction/lower urinary tract symptoms - ICD9: 600.01, 599.69, ICD10: N40.1, N13.8 Controlled on current regimen. 7. Situational depression - ICD9: 309.0, ICD10: F43.21 Controlled on current regimen. 8. Obesity, Class I, BMI 30-34.9 - ICD9: 278.00, ICD10: E66.9 Stable - Behavioral intervention 9. Abdominal aortic aneurysm (AAA) without rupture, unspecified part (HCC) - ICD9: 441.4, ICD10: I71.40 Up to date on imaging. 10. 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 With high risk for falls, wouldconsider cessation, but did not discuss today. He remains on ASA. I am not sure he would be good candidate for IVC filter, but will discuss referral at future appointment. Discussed fall risk prevention with use of cane and walker. Reduce amlodipine and discussed gentle hydration. F/u in 4 weeks orPRN 11. Chronic anticoagulation - ICD9: V58.61, ICD10: Z79.01 See above. 12. At high risk for falls - ICD9: V15.88, ICD10: Z91.81 See above 13. Fall in home, initial encounter - ICD9: E888.9, E849.0, ICD10: W19.XXXA, Y92.009 See above. I spent a total of 40 minutes on the date of the service which included preparing to see the patient, [id number] patient care, completing clinical documentation, obtaining and/or reviewing separately obtained history, performing a medically appropriate examination, counseling and educating the pat ient/family/caregiver, and ordering medications, tests, or procedures. Kanchan Ge MD documented in this encounterK[facility]05-02-[facility] History of Present illness Narrative* Anne Bethea, NURSING INFORMATICS SPECIALIST.TABLEMAN - 10/01/2022 1:17 PM EDT 10/01/2022 Patient presents with: F/U 3 Month SUBJECTIVE: This is a 77 year old that is here today for Above Complaints. Since last last office visit has been in good health without ER visits or hospitalizations. HTN: Patient is compliant with meds Yes Monitors bp at home: Yes. 120/70's Denies side effects: No. Chest pain: No. Dyspnea: No. Edema: No. Palpitations: No. Syncope: No. Headache: No. Dizziness: No. GERD: taking omeprazole as prescribed without side effects. Denies breakthrough symptoms BPH: taking proscar and flomax as prescribed. Denies nocturia, difficulty emptying bladder, difficulty initiating urination, dysuria, urinary urgency/frequency or hematuria AAA: Had recent US and has follow-up next Friday with Dr. Berg Drinks a glass of whiskey every night Follow with respiratory coordinator for hx of a BCC. Last office visit was 3 weeks ago. Follows with him every three months Fading bruise under right eye noted. Asked patient what happened and he reports stool he went to sit on came out from under him and hit under eye on corner of counter a few weeks ago. Did not go to hospital. Denies other injuries, other falls, LOC, headaches, visual changes, or confusion. Denies hewas drinking when this occurred. Reports he only drinks a small glass of whiskey before bed. Anticoagulated for hx of DVT's Denies bleeding symptoms PAST MEDICAL HISTORY Diagnosis Date AAA (abdominal aortic aneurysm) 02/06/2012 01/10/17: CT abd 4.8 cm. s/p aortobiliac stent.-Dr. Johan Berg Actinic keratosis On [place], Dr. Dudley Acute deep vein thrombosis (DVT) of femoral vein of left lower extremity (HCC) 03/16/2018 02/19/18--on Eliquis At high risk for falls Basal cell carcinoma 2020 left cheek Benign essential tremor Benign hypertension 07/13/2015 Bruit right carotid artery Chewing tobacco use Class 1 obesity due to excess calories without serious comorbidity with body mass index (BMI) of 33.0 to 33.9 in adult Esophageal reflux Gastroesophageal reflux Facet arthritis of lumbar region 06/27/2014 History of carpal tunnel surgery 1990s Hypertrophy of prostate without urinary obstruction and other lower urinary tract symptoms (LUTS) Hypertrophy of the prostate w/o obstruction Left leg DVT (HCC) 02/19/2018 Mixed hyperlipidemia Hyperlipidemia 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 Melo Personal history of colonic polyps Pulmonary emphysema (HCC) 12/31/2016 Sebaceous cyst Situational depression 07/03/2016 Squamous cell carcinoma 04/04/2015 Left cheek Venous insufficiency of both lower extremities 07/01/2014 ALLERGIES Lipitor [Atorvastatin Calcium], Medical Tape [Other], Rosuvastatin Calcium, and Boumtgp-Rcx-Clc Reductase Inhibitors MEDICATIONS Current Outpatient Medications Medication Sig evolocumab (REPATHA SURECLICK) 140 mg/mL pen injector Inject 140 mg subcutaneously every 2 weeks. tamsulosin (FLOMAX) 0.4 mg Take 1 capsule by mouth once daily. gabapentin (NEURONTIN) 100 mg capsule Take 1 capsule by mouth three times daily for 30 days. amLODIPine (NORVASC) 5 mg tablet Take 1 tablet by mouth once daily. FLUoxetine (PROZAC) 20 mg capsule Take 1 capsule by mouth once daily. ELIQUIS 5 mg tab(s) Take 1 tablet by mouth twice daily. finasteride (PROSCAR) 5 mg tablet Take 1 tablet by mouth once daily. omeprazole (PRILOSEC) 20 mg capsule TAKE 1 CAPSULE BY MOUTH EVERY DAY IN THE MORNING acetaminophen (TYLENOL) 325 mg tablet Take 3 tablets by mouth every 6 hours as needed for pain. fluticasone (FLONASE) 50 mcg/actuation nasal spray Use 2 Sprays in each nostril once daily. Rinse mouth after use. brimonidine (ALPHAGAN) 0.2 % ophthalmic solution Use 1 Drop in both eyes twice daily. timolol maleate (TIMOPTIC) 0.5 % ophthalmic solution Use 1 Drop in both eyes twice daily. aspirin, enteric coated (ECOTRIN LOW STRENGTH) 81 mg EC tablet Take 1 tablet by mouth once daily. No current facility-administered medications for this visit. Medications and allergies reviewed by this provider. SOCIAL HISTORY Social History Tobacco Use Smoking status: Former Packs/day: 1.00 Years: 30.00 Pack years: 30.00 Types: Cigarettes Quit date: 06/02/1988 Years since quittin.3 Smokeless tobacco: Current Types: Chew Tobacco comments: Brief relaps after of spouse. Vaping Use Vaping Use: Never used Substance Use Topics Alcohol use: Yes Drug use: No REVIEW OF SYSTEMS All other reviewed and negative other than HPI. OBJECTIVE: BP 112/64 Pulse 86 Resp 20 Wt 111.2 kg (245 lb 3.2 oz) SpO2 97% BMI 32.35 kg/m . Vital signs reviewed by this provider. APPEARANCE Well appearing, alert, in no acute distress, well-hydrated, well nourished. EYES PERRLA, conjunctiva and sclera normal. HEART RRR with normal S1 and S2, no murmurs, no gallops, no JVD appreciated LUNG clear to auscultation. No wheezes, rhonchi or rales NEURO Awake, alert and oriented x 3, Cranial nerves II-XII grossly intact, Reflexes symmetrical, Normal gait, and negative findings: speech normal, mental status intact, Romberg negative, muscle tonenormal, muscle strength normal, reflexes normal and symmetric, plantar response downgoing bilaterally, Normal gait HEPATITIS C SCREENING Never done SHINGRIX VACCINE(1 of 2) Never done ADVANCE DIRECTIVE DISCUSSION Never done ANNUAL PCP TEAM CHRONIC DISEASE VISIT due on 07/04/2023 BP CONTROLLED (<130/80) due on 10/02/2023 DIABETES SCREEN due on 07/04/2025 DTAP,TDAP,TD(3 - Td or Tdap) due on 06/15/2029 SPIROMETRY Completed INFLUENZA Completed COVID-19 VACCINE Completed PNEUMOCOCCAL: 65+ Completed ASSESSMENT/PLAN: 1. Benign hypertension - ICD9: 401.1, ICD10: I10 (primary diagnosis) - good control - Continue current medication(s) - Encouraged dietary sodium restriction/DASH diet - Recommended regular aerobic exercise. - Recommend home blood pressure monitoring, to bring results in on next visit - Discussed need and benefit for weight loss. - Recheck in 3 months, sooner should new symptoms or problems arise. - Goal of BP <130/80 - Recommended no refined sugar, low refined starch, healthy oil intake (olive oil), healthy protein(fish) along the lines of the Mediterranean diet. - COMP METABOLIC PANEL 2. Obesity, Class I, BMI 30-34.9 - ICD9: 278.00, ICD10: E66.9 Stable - Behavioral intervention 3. Hyperlipidemia with target LDL less than 100 - ICD9: 272.4, ICD10: E78.5 - good control - Continue current medication. - Encouraged following a low fat, low cholesterol diet. - Discussed the benefits of regular aerobic exercise and weight loss. - Follow up in 12 weeks. - Encouraged following a low carbohydrate, healthy oil intake diet. - LIPID PANEL BASIC 4. Gastroesophageal reflux disease, unspecified whether esophagitis present - ICD9: 530.81, ICD10: K21.9 - stable on current regime 5. BPH with obstruction/lower urinary tract symptoms - ICD9: 600.01, 599.69, ICD10: N40.1, N13.8 - stable on current regime 6. Abdominal aortic aneurysm (AAA) without rupture, unspecified part (HCC) - ICD9: 441.4, ICD10: I71.40 - follow-up with Dr. Berg as scheduled 7. Chronic anticoagulation - ICD9: V58.61, ICD10: Z79.01 - discussed with patient if he falls and hit head needs to be evaluated in ER - may want to consider if the benefit of anticoagulation outweighs risk if he has subsequent falls 8. History of DVT of lower extremity - ICD9: V12.51, ICD10: Z86.718 - continue anticoagulation 9. Fall, initial encounter - ICD9: E888.9, ICD10: W19.XXXA - reiterated needs to be seen in ER if falls and hits head, verbalizes understanding - no red flag symptoms or exam findings - given his fall has been a few weeks ago and normal neuro exam will not order CT scan, however discussed red flag symptoms for head injuries- verbalizes understanding - use cane or walker if gait unsteady Anne Bethea APRN.CNP Prescription instructions reviewed with patient as applicable. Patient advised if symptoms do not improve or if symptoms worsen sooner, to contact their primary care physician. Potential red flag symptoms discussed with the patient. Reviewed appropriate action plan to take if red flag symptoms occur. Patient agreeable to treatment plan. I spent a total of 30 minutes on the date of the service which included preparing to see the patient, [id number] patient care, completing clinical documentation, obtaining and/or reviewing separately obtained history, performing a medically appropriate examination, counseling and educating the pat ient/family/caregiver, and ordering medications, tests, or procedures. documented in this encounterK[facility]04-17-2023 Miscellaneous Notes* Telephone Encounter - Pippa Sorensen - 09/16/2022 11:57 AM EDT Pharmacy verified in [facility] Patient has been identified by name and date of : Yes Patient aware RX will be sent to pharmacy. No need to notify patient. Patient phones for refill(s): Requested Prescriptions Pending Prescriptions Disp Refills evolocumab (REPATHA SURECLICK) 140 mg/mL pen injector 6 mL 1 Sig: Inject 140 mg subcutaneously every 2 weeks. Date of last office visit : 07/04/2022 Date of next office visit : 10/01/2022 Last 2 Encounter Wt Readings: Date: Wt: 07/04/2022 110.9 kg (244 lb 6.4 oz) 06/04/2022 112.2 kg (247 lb 6.4 oz) Please advise. Pippa Pan Pss documented in this encounterK[facility]03-28-2023 Miscellaneous Notes* Telephone Encounter - Anne Bethea APRN.CNP - 08/27/2022 9:19 AM EDT PDMP website checked and validated. All prescriptions have been APPROPRIATELY filled. No suspiciousactivity was identified. 08/27/2022 by Anne Bethea APRN.CNP * Telephone Encounter - Marlin Champagne RN - 08/27/2022 9:14 AM EDT Last Office Visit: 07/04/2022 Future Office Visit: 10/01/2022 Requested Prescriptions Pending Prescriptions Disp Refills tamsulosin (FLOMAX) 0.4 mg 90 capsule 3 Sig: Take 1 capsule by mouth once daily. gabapentin (NEURONTIN) 100 mg capsule 270 capsule 1 Sig: Take 1 capsule by mouth three times daily for 30 days. amLODIPine (NORVASC) 5 mg tablet 90 tablet 1 Sig: Take 1 tablet by mouth once daily. FLUoxetine (PROZAC) 20 mg capsule 90 capsule 1 Sig: Take 1 capsule by mouth once daily. Date of Last Labs: 07/04/2022 [facility] Miscellaneous Notes* Telephone Encounter - Anne Bethea APRN.CNP - 07/22/2022 4:42 PM EST PDMP website checked and validated. All prescriptions have been APPROPRIATELY filled. No suspiciousactivity was identified. 07/22/2022 by Anne Bethea APRN.CNP * Telephone Encounter - Pippa Sorensen - 07/22/2022 11:10 AM EST Pharmacy verified in [facility] Patient has been identified by name and date of : Yes Patient aware RX will be sent to pharmacy. No need to notify patient. Patient phones for refill(s): Requested Prescriptions Pending Prescriptions Disp Refills gabapentin (NEURONTIN) 100 mg capsule 90 capsule 0 Sig: Take 1 capsule by mouth three times daily for 30 days. Date of last office visit : 07/04/2022 Date of next office visit : 10/01/2022 Last 2 Encounter Wt Readings: Date: Wt: 07/04/2022 110.9 kg (244 lb 6.4 oz) 06/04/2022 112.2 kg (247 lb 6.4 oz) Please advise. Pippa Pan Pss documented in this encounterK[facility]23 Miscellaneous Notes* Telephone Encounter - Rocio Garzon RN - 07/05/2022 10:59 AM EST Images from the original note were not included. Detailed message left on pt's identified VM for patient of provider's message below. Rocio Garzon RN Result Notes Kanchan Ge MD 07/05/2022 9:55 AM EST Back to Top Stable labs. No change to regimen. documented in this encounterK[facility] History of Present illness Narrative* Kanchan Ge MD - 07/04/2022 1:29 PM EST Chief Complaint Patient presents with: Follow Up: 3 month HPI Vicki Randle is a 77 year old male who presents here today for Above Complaints. Has been in good health since last OV without hospitalizations or ER visits. No recent falls. BP well controlled on current regimen. Switched from Coreg to Amlodipine at last OV and has been getting readings of 140's/70's at home. Denies headache, chest pain, SOB, LE edema. Feels much better on this regimen and is not getting dizziness like previously. Depression controlled on prozac without side effects. Primidone was not working to control his essential tremor so we switched him to Gabapentin. Taking only twice daily instead of 3 times daily and does not think it has helped with his symptoms. Denieslightheadedness or fatigue on this dosage. Does not want to change regimen today. GERD: controlled on Prilosec BPH: Taking flomax daily as is not needing to get up at all at night to urinate. Denies weak stream, straining, dysuria, hematuria. AAA: following up with Dr. Henry Berg yearly to monitor after his repair in 2018. Not sure when his next OV is. No changes at his last appointment. Past medical history, appointments, medications, allergies reviewed. Previous Medical History PAST MEDICAL HISTORY Diagnosis Date AAA (abdominal aortic aneurysm) 02/06/2012 01/10/17: CT abd 4.8 cm. s/p aortobiliac stent.-Dr. Johan Berg Actinic keratosis On [place], Dr. Dudley Acute deep vein thrombosis (DVT) of femoral vein of left lower extremity (HCC) 03/16/2018 02/19/18--on Eliquis Basal cell carcinoma 2020 left cheek Benign essential tremor Benign hypertension 07/13/2015 Bruit right carotid artery Chewing tobacco use Class 1 obesity due to excess calories without serious comorbidity with body mass index (BMI) of 33.0 to 33.9 in adult Esophageal reflux Gastroesophageal reflux Facet arthritis of lumbar region 06/27/2014 History of carpal tunnel surgery Hypertrophy of prostate without urinary obstruction and other lower urinary tract symptoms (LUTS) Hypertrophy of the prostate w/o obstruction Left leg DVT (HCC) 02/19/2018 Mixed hyperlipidemia Hyperlipidemia Neoplasm of skin of hand left cheek, upper arm, ear, forearm, nose Nodule of right lung 04/17/2012 01/08/2013: CT chest 4 mm, unchanging nodule==suspect benign Other specified glaucoma Dr. Melo Personal history of colonic polyps Pulmonary emphysema (HCC) 12/31/2016 Sebaceous cyst Situational depression 07/03/2016 Squamous cell carcinoma 04/04/2015 Left cheek Venous insufficiency of both lower extremities 07/01/2014 Previous Surgical History PAST SURGICAL HISTORY Procedure Laterality Date COLONOSCOPY 12/29/2017 adenomatous polyp, repeat in 5 years COLONOSCOPY FLX DX W/COLLJ SPEC WHEN PFRMD 08/17/2007 EXCISION TUMOR SOFT TISSUE THIGH/KNEE SUBQ <3CM REMOVED FATTY TUMORS FROM UNDER EXCISION TUMOR SOFT TISSUE THIGH/KNEE SUBQ <3CM RMOVED FATTY TUMORE INT REPAIR SCALP,JAYCOB,TRUNK 7.6-12.5CM 02/24/2007 back LAPS SURG CHOLECYSTECTOMY W/CHOLANGIOGRAPHY 09/07/2007 MRI 02/22/2014 [facility] - mri - right knee PAST SURGICAL HISTORY OF N/A 09/09/2017 Abdominal aneurysm aortic repair PAST SURGICAL HISTORY OF Right 2013 arthroscopic knee surgery PAST SURGICAL HISTORY OF Left excision of knee bursa REM LESION TRUNK,ARM,LEG > 4.0CM 02/24/2007 back REM LESION TRUNK,ARM,LEG > 4.0CM REVISE MEDIAN N/CARPAL TUNNEL SURG Bilateral 1990s SURGERY (GENERAL SURGERY) CONSULT 04/25/2015 Invasive squamous cell carcincoma see scanned documents Family History FAMILY HISTORY Problem Relation Age of Onset Emphysema Mother Arthritis Sister Hypertension Maternal Grandmother No Known Problems Son No Known Problems Son No Known Problems Son No Known Problems Son No Known Problems Son Patient Allergies ALLERGIES Allergen Reactions Lipitor [Atorvastat* Intolerance Medical Tape [Other] Itching Rosuvastatin Calcium Intolerance Oskaxjb-Adc-Piy Red* Myalgia Current Medications Current Outpatient Medications on File Prior to Visit Medication Sig gabapentin (NEURONTIN) 100 mg capsule Take 1 capsule by mouth three times daily for 30 days. amLODIPine (NORVASC) 5 mg tablet Take 1 tablet by mouth once daily. FLUoxetine (PROZAC) 20 mg capsule Take 1 capsule by mouth once daily. evolocumab (REPATHA SURECLICK) 140 mg/mL pen injector Inject 140 mg subcutaneously every 2 weeks. ELIQUIS 5 mg tab(s) Take 1 tablet by mouth twice daily. finasteride (PROSCAR) 5 mg tablet Take 1 tablet by mouth once daily. omeprazole (PRILOSEC) 20 mg capsule TAKE 1 CAPSULE BY MOUTH EVERY DAY IN THE MORNING tamsulosin (FLOMAX) 0.4 mg TAKE 1 CAPSULE BY MOUTH EVERY DAY acetaminophen (TYLENOL) 325 mg tablet Take 3 tablets by mouth every 6 hours as needed for pain. fluticasone (FLONASE) 50 mcg/actuation nasal spray Use 2 Sprays in each nostril once daily. Rinse mouth after use. brimonidine (ALPHAGAN) 0.2 % ophthalmic solution Use 1 Drop in both eyes twice daily. timolol maleate (TIMOPTIC) 0.5 % ophthalmic solution Use 1 Drop in both eyes twice daily. aspirin, enteric coated (ECOTRIN LOW STRENGTH) 81 mg EC tablet Take 1 tablet by mouth once daily. No current facility-administered medications on file prior to visit. Social History Social History Tobacco Use Smoking status: Former Packs/day: 1.00 Years: 30.00 Pack years: 30.00 Types: Cigarettes Quit date: 06/02/1988 Years since quittin.1 Smokeless tobacco: Current Types: Chew Tobacco comments: Brief relaps after of spouse. Vaping Use Vaping Use: Never used Substance Use Topics Alcohol use: Yes Drug use: No Review of Symptoms REVIEW OF SYSTEMS GENERAL: No weight loss, malaise or fevers RESPIRATORY: Negative for cough, hemoptysis, wheezing, COPD, dyspnea or shortness of breath CARDIOVASCULAR: Negative for chest pain, leg swelling, hypertension, CHF or palpitations GI: No nausea, vomiting, or diarrhea SKIN: Negative for lesions, rash, and itching EXAM: BP 136/72 Pulse 94 Resp 18 Wt 110.9 kg (244 lb 6.4 oz) SpO2 93% BMI 32.24 kg/m General Appearance: Well appearing, alert, in no acute distress, well-hydrated, well nourished.. Skin: Skin color, texture, turgor normal, no suspicious rashes or lesions. Lungs: Lungs clear to auscultation. No wheezing, rhonchi, rales.. Heart: RRR without murmur, gallop, or rubs. No ectopy. Abdomen: Normal abdominal exam, Abdomen soft, non-tender. Bowel sounds normal. No masses, organomegaly. 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 Good capillary refill. . Neuro: Faint essential tremor in right hand with hands outstretched. Health Maintenance List HEPATITIS C SCREENING Never done SHINGRIX VACCINE(1 of 2) Never done PNEUMOCOCCAL: 65+(2 - PPSV23 if available, else PCV20) due on 02/25/2017 BP CONTROLLED (<130/80) due on 01/09/2019 ADVANCE DIRECTIVE DISCUSSION Never done ANNUAL PCP TEAM CHRONIC DISEASE VISIT due on 06/04/2023 DIABETES SCREEN due on 07/17/2024 DTAP,TDAP,TD(3 - Td or Tdap) due on 06/15/2029 SPIROMETRY Completed INFLUENZA Completed COVID-19 VACCINE Completed Data reviewed Component Latest Ref Rng & Units 07/17/2021 10/23/2021 WBC 3.70 - 11.00 k/uL 4.84 7.53 RBC 4.20 - 6.00 m/uL 3.73 (L) 4.63 Hemoglobin 13.0 - 17.0 g/dL 11.5 (L) 14.3 Hematocrit 39.0 - 51.0 % 36.2 (L) 45.5 MCV 80.0 - 100.0 fL 97.1 98.3 MCH 26.0 - 34.0 pg 30.8 30.9 MCHC 30.5 - 36.0 g/dL 31.8 31.4 RDW-CV 11.5 - 15.0 % 13.8 14.3 Platelet Count 150 - 400 k/uL 166 263 MPV 9.0 - 12.7 fL 10.0 10.5 Neut% % 68.0 74.9 Abs Neut (ANC) 1.45 - 7.50 k/uL 3.29 5.65 Lymph% % 22.5 15.8 Abs Lymph 1.00 - 4.00 k/uL 1.09 1.19 [place]% % 7.0 6.4 Abs [place] <0.87 k/uL 0.34 0.48 Eosin% % 1.9 1.9 Abs Eosin <0.46 k/uL 0.09 0.14 Baso% % 0.2 0.7 Abs Baso <0.11 k/uL <0.03 0.05 Immature Gran % % 0.4 0.3 IMMATURE GRANS (ABS) <0.10 k/uL <0.03 <0.03 NRBC /100 WBC 0.0 0.0 Absolute nRBC <0.01 k/uL <0.01 <0.01 DTYPE Auto Auto Glucose 74 - 99 mg/dL 114 (H) BUN 9 - 24 mg/dL 12 Creatinine 0.73 - 1.22 mg/dL 0.95 Sodium 136 - 144 mmol/L 137 Potassium 3.7 - 5.1 mmol/L 3.7 Chloride 97 - 105 mmol/L 103 CO2 22 - 30 mmol/L 26 Anion Gap 9 - 18 mmol/L 8 (L) Calcium 8.5 - 10.2 mg/dL 8.3 (L) eGFR- >60 eGFR-All Other Races >60 Total Cholesterol, Nonfasting <200 mg/dL 203 (H) Triglycerides, Nonfasting <150 mg/dL 140 HDL Cholesterol, Nonfasting >39 mg/dL 59 LDL Cholesterol, Nonfasting <100 mg/dL 116 (H) Non HDL Cholesterol, Nonfasting <130 mg/dL 144 (H) VLDL Cholesterol, Nonfasting <30 mg/dL 28 Total Chol/HDL Ratio, Nonfasting <5.10 mg/dL 3.44 LDL/HDL Ratio, Nonfasting <2.54 mg/dL 1.97 ASSESSMENT/PLAN: 1. Benign hypertension - ICD9: 401.1, ICD10: I10 (primary diagnosis) - good control - Continue current medication(s) - Encouraged dietary sodium restriction/DASH diet - Recommended regular aerobic exercise. - Reviewed risks of HTN and principles of treatment - Goal of BP <140/90 - COMP METABOLIC PANEL 2. Orthostatic hypotension - ICD9: 458.0, ICD10: I95.1 Resolved. 3. At high risk for falls - ICD9: V15.88, ICD10: Z91.81 Discussed caution when walking in wet or icy conditions. Offered cane/walker which he is refusing. 4. Situational depression - ICD9: 309.0, ICD10: F43.21 Controlled on Prozac. 5. Essential tremor - ICD9: 333.1, ICD10: G25.0 Improved slightly with gabapentin. Refusing increased dosge. 6. Chronic anticoagulation - ICD9: V58.61, ICD10: Z79.01 Recheck CBC. No bleeding/bruising. Will continue for now. Consider DC in the future if fall risk increases. - CBC + DIFF 7. Gastroesophageal reflux disease, unspecified whether esophagitis present - ICD9: 530.81, ICD10: K21.9 - Continue treatment with Prilosec 20 mg QD 8. BPH with obstruction/lower urinary tract symptoms - ICD9: 600.01, 599.69, ICD10: N40.1, N13.8 Improved on proscar and flomax. 9. Abdominal aortic aneurysm (AAA) without rupture, unspecified part - ICD9: 441.4, ICD10: I71.40 S/p repair. Recommendations Dr. Johan Berg. 10. Encounter for immunization - ICD9: V03.89, ICD10: Z23 Kanchan Ge MD [facility] Miscellaneous Notes* Telephone Encounter - Anne Bethea APRN.CNP - 06/06/2022 1:23 PM EST PDMP website checked and validated. All prescriptions have been APPROPRIATELY filled. No suspiciousactivity was identified. 06/06/2022 by Anne Bethea APRN.CNP * Telephone Encounter - Nelson Chen Pss - 06/06/2022 8:31 AM EST Patient has been identified by name and date of : Yes Last office visit in this department: 06/04/2022 Labs-10/23/21 NOV-06/19/22 med filled 04/29/22 RX INSTRUCTIONS: Patient aware RX will be sent to pharmacy. No need to notify patient. Patient phones requesting refills as follows: Requested Prescriptions Pending Prescriptions Disp Refills gabapentin (NEURONTIN) 100 mg capsule 90 capsule 0 Sig: Take 1 capsule by mouth three times daily for 30 days. Please review and advise. Nelson Chen Pss documented in this encounterK[facility]01-[facility]-2023 Instructions* Patient Instructions* Anne Bethea APRN.CAITY - 06/04/2022 2:16 PM EST Stop the coreg Restart amlodipine 5 mg daily Call if feeling lightheaded, dizzy or blood pressure drops to 110/60 or less documented in this encounterK[facility]01-[facility]-2023 History of Present illness Narrative* Anne Bethea APRN.TABLEMAN - 06/04/2022 1:43 PM EST 06/04/2022 Patient presents with: F/U 1 month SUBJECTIVE: This is a 76 year old that is here today for Above Complaints. BP low at last office visit and patient had been symptomatic with dizziness. Coreg cut in half. Hasbeen monitoring BP at home with readings of 150-160's/70-80's. No more dizziness. Denies falls since last visit, headaches, visual change, lightheadedness, slurred speech, facial drooping, extremity n umbness, tingling, weakness, dyspnea, or chest pain. PAST MEDICAL HISTORY Diagnosis Date AAA (abdominal aortic aneurysm) 02/06/2012 01/10/17: CT abd 4.8 cm. s/p aortobiliac stent.-Dr. Johan Berg Actinic keratosis On [place], Dr. Banksy Acute deep vein thrombosis (DVT) of femoral vein of left lower extremity (HCC) 03/16/2018 02/19/18--on Eliquis Basal cell carcinoma 2020 left cheek Benign essential tremor Benign hypertension 07/13/2015 Bruit right carotid artery Chewing tobacco use Class 1 obesity due to excess calories without serious comorbidity with body mass index (BMI) of 33.0 to 33.9 in adult Esophageal reflux Gastroesophageal reflux Facet arthritis of lumbar region 06/27/2014 History of carpal tunnel surgery 1990s Hypertrophy of prostate without urinary obstruction and other lower urinary tract symptoms (LUTS) Hypertrophy of the prostate w/o obstruction Left leg DVT (HCC) 02/19/2018 Mixed hyperlipidemia Hyperlipidemia Neoplasm of skin of hand left cheek, upper arm, ear, forearm, nose Nodule of right lung 04/17/2012 01/08/2013: CT chest 4 mm, unchanging nodule==suspect benign Other specified glaucoma Dr. Melo Personal history of colonic polyps Pulmonary emphysema (HCC) 12/31/2016 Sebaceous cyst Situational depression 07/03/2016 Squamous cell carcinoma 04/04/2015 Left cheek Venous insufficiency of both lower extremities 07/01/2014 ALLERGIES Lipitor [Atorvastatin Calcium], Medical Tape [Other], Rosuvastatin Calcium, and Nhqrock-Pud-Bef Reductase Inhibitors MEDICATIONS Current Outpatient Medications Medication Sig FLUoxetine (PROZAC) 20 mg capsule Take 1 capsule by mouth once daily. gabapentin (NEURONTIN) 100 mg capsule Take 1 capsule by mouth three times daily for 30 days. carvedilol (COREG) 3.125 mg tablet Take 1 tablet by mouth twice daily. evolocumab (REPATHA SURECLICK) 140 mg/mL pen injector Inject 140 mg subcutaneously every 2 weeks. ELIQUIS 5 mg tab(s) Take 1 tablet by mouth twice daily. finasteride (PROSCAR) 5 mg tablet Take 1 tablet by mouth once daily. omeprazole (PRILOSEC) 20 mg capsule TAKE 1 CAPSULE BY MOUTH EVERY DAY IN THE MORNING tamsulosin (FLOMAX) 0.4 mg TAKE 1 CAPSULE BY MOUTH EVERY DAY acetaminophen (TYLENOL) 325 mg tablet Take 3 tablets by mouth every 6 hours as needed for pain. fluticasone (FLONASE) 50 mcg/actuation nasal spray Use 2 Sprays in each nostril once daily. Rinse mouth after use. brimonidine (ALPHAGAN) 0.2 % ophthalmic solution Use 1 Drop in both eyes twice daily. timolol maleate (TIMOPTIC) 0.5 % ophthalmic solution Use 1 Drop in both eyes twice daily. aspirin, enteric coated (ECOTRIN LOW STRENGTH) 81 mg EC tablet Take 1 tablet by mouth once daily. No current facility-administered medications for this visit. Medications and allergies reviewed by this provider. SOCIAL HISTORY Social History Tobacco Use Smoking status: Former Packs/day: 1.00 Years: 30.00 Pack years: 30.00 Types: Cigarettes Quit date: 06/02/1988 Years since quittin.0 Smokeless tobacco: Current Types: Chew Tobacco comments: Brief relaps after of spouse. Vaping Use Vaping Use: Never used Substance Use Topics Alcohol use: Yes Drug use: No REVIEW OF SYSTEMS All other reviewed and negative other than HPI. OBJECTIVE: BP 154/81 Pulse 77 Resp 18 Wt 112.2 kg (247 lb 6.4 oz) SpO2 96% BMI 32.64 kg/m . Vital signs reviewed by this provider. APPEARANCE Well appearing, alert, in no acute distress, well-hydrated, well nourished. ASSESSMENT/PLAN: 1. Benign hypertension - ICD9: 401.1, ICD10: I10 - suboptimal control - restart amlodipine - Discontinue coreg - Encouraged dietary sodium restriction/DASH diet - Recommended regular aerobic exercise. - Recommend home blood pressure monitoring, to bring results in on next visit - Discussed need and benefit for weight loss. - Goal of BP <140/90 - Recommend home or pharmacy blood pressure monitoring - Recommended no refined sugar, low refined starch, healthy oil intake (olive oil), healthy protein(fish) along the lines of the Mediterranean diet. - AMLODIPINE 5 MG TABLET - follow-up as scheduled on 06/19/2022, sooner if needed - call with dizziness, lightheadedness, and/or BP 110/60 or less Anne Podlogespinoza, NURSING INFORMATICS SPECIALIST.TABLEMAN Prescription instructions reviewed with patient as applicable. Patient advised if symptoms do not improve or if symptoms worsen sooner, to contact their primary care physician. Potential red flag symptoms discussed with the patient. Reviewed appropriate action plan to take if red flag symptoms occur. Patient agreeable to treatment plan. I spent a total of 20 minutes on the date of the service which included preparing to see the patient, xebi-[id number] patient care, completing clinical documentation, obtaining and/or reviewing separately obtained history, performing a medically appropriate examination, counseling and educating the pat ient/family/caregiver, and ordering medications, tests, or procedures. documented in this encounterK[facility]12-[facility]-2022 History of Present illness Narrative* Anne Bethea APRN.CNP - 05/03/2022 12:59 PM EST 05/03/2022 Patient presents with: Recheck: Blood pressure SUBJECTIVE: This is a 76 year old that is here today for Above Complaints. Norvasc stopped at last appointment due to orthostatic hypotension. Has not been monitoring it at home. Reports he fell the other day due to dizziness. Did not hit head and does not feel injured anywhere. Denies visual changes, extremity numbness, tingling, weakness, confusion, slurred speech, SOB,dyspnea, chest pain, palpitations, or leg edema PAST MEDICAL HISTORY Diagnosis Date AAA (abdominal aortic aneurysm) 02/06/2012 01/10/17: CT abd 4.8 cm. s/p aortobiliac stent.-Dr. Johan Berg [facility] Acute deep vein thrombosis (DVT) of femoral vein of left lower extremity (HCC) 03/16/2018 02/19/18--on Eliquis Basal cell carcinoma 2019 left cheek Benign essential tremor Benign hypertension 07/13/2015 Bruit right carotid artery Chewing tobacco use Class 1 obesity due to excess calories without serious comorbidity with body mass index (BMI) of 33.0 to 33.9 in adult Esophageal reflux Gastroesophageal reflux Facet arthritis of lumbar region 06/27/2014 History of carpal tunnel surgery 1990s Hypertrophy of prostate without urinary obstruction and other lower urinary tract symptoms (LUTS) Hypertrophy of the prostate w/o obstruction Left leg DVT (HCC) 02/19/2018 Mixed hyperlipidemia Hyperlipidemia Neoplasm of skin of hand left cheek, upper arm, ear, forearm, nose Nodule of right lung 04/17/2012 01/08/2013: CT chest 4 mm, unchanging nodule==suspect benign Other specified glaucoma Dr. Melo Personal history of colonic polyps Pulmonary emphysema (HCC) 12/31/2016 Sebaceous cyst Situational depression 07/03/2016 Squamous cell carcinoma 04/04/2015 Left cheek Venous insufficiency of both lower extremities 07/01/2014 ALLERGIES Lipitor [Atorvastatin Calcium], Medical Tape [Other], Rosuvastatin Calcium, and Xfjckvb-Apw-Zcz Reductase Inhibitors MEDICATIONS Current Outpatient Medications Medication Sig FLUoxetine (PROZAC) 20 mg capsule Take 1 capsule by mouth once daily. gabapentin (NEURONTIN) 100 mg capsule Take 1 capsule by mouth three times daily for 30 days. carvedilol (COREG) 3.125 mg tablet Take 1 tablet by mouth twice daily. evolocumab (REPATHA SURECLICK) 140 mg/mL pen injector Inject 140 mg subcutaneously every 2 weeks. ELIQUIS 5 mg tab(s) Take 1 tablet by mouth twice daily. finasteride (PROSCAR) 5 mg tablet Take 1 tablet by mouth once daily. omeprazole (PRILOSEC) 20 mg capsule TAKE 1 CAPSULE BY MOUTH EVERY DAY IN THE MORNING tamsulosin (FLOMAX) 0.4 mg TAKE 1 CAPSULE BY MOUTH EVERY DAY acetaminophen (TYLENOL) 325 mg tablet Take 3 tablets by mouth every 6 hours as needed for pain. fluticasone (FLONASE) 50 mcg/actuation nasal spray Use 2 Sprays in each nostril once daily. Rinse mouth after use. brimonidine (ALPHAGAN) 0.2 % ophthalmic solution Use 1 Drop in both eyes twice daily. timolol maleate (TIMOPTIC) 0.5 % ophthalmic solution Use 1 Drop in both eyes twice daily. aspirin, enteric coated (ECOTRIN LOW STRENGTH) 81 mg EC tablet Take 1 tablet by mouth once daily. No current facility-administered medications for this visit. Medications and allergies reviewed by this provider. SOCIAL HISTORY Social History Tobacco Use Smoking status: Former Packs/day: 1.00 Years: 30.00 Pack years: 30.00 Types: Cigarettes Quit date: 06/02/1988 Years since quittin.9 Smokeless tobacco: Current Types: Chew Tobacco comments: Brief relaps after of spouse. Vaping Use Vaping Use: Never used Substance Use Topics Alcohol use: Yes Drug use: No REVIEW OF SYSTEMS All other reviewed and negative other than HPI. OBJECTIVE: BP 99/62 Pulse 94 Resp 18 Wt 109.3 kg (241 lb) SpO2 95% BMI 31.80 kg/m . Vital signs reviewed by this provider. APPEARANCE Well appearing, alert, in no acute distress, well-hydrated, well nourished. HEART RRR with normal S1 and S2, no murmurs, no gallops, no JVD appreciated LUNG clear to auscultation EXTREMITIES Extremities normal, No deformities, No skin discoloration, and No edema HEPATITIS C SCREENING Never done SHINGRIX VACCINE(1 of 2) Never done PNEUMOCOCCAL: 65+(2 - PPSV23 if available, else PCV20) due on 12/31/2017 ADVANCE DIRECTIVE DISCUSSION Never done ANNUAL PCP TEAM CHRONIC DISEASE VISIT due on 05/03/2023 BP CONTROLLED (<130/80) due on 05/03/2023 DIABETES SCREEN due on 07/17/2024 DTAP,TDAP,TD(3 - Td or Tdap) due on 06/15/2029 SPIROMETRY Completed INFLUENZA Completed COVID-19 VACCINE Completed ASSESSMENT/PLAN: 1. Benign hypertension - ICD9: 401.1, ICD10: I10 - BP remains low after discontinued amlodipine - patient symptomatic with dizziness at times - will have him cut his coreg in half and take twice a day for one week - monitor BP at home, call if elevating or decreasing more - wear compression hose, on in the AM off in the PM - stay hydrated with water - follow-up 06/04/2022, sooner if needed Anne Bethea APRN.CNP Prescription instructions reviewed with patient as applicable. Patient advised if symptoms do not improve or if symptoms worsen sooner, to contact their primary care physician. Potential red flag symptoms discussed with the patient. Reviewed appropriate action plan to take if red flag symptoms occur. Patient agreeable to treatment plan. I spent a total of 25 minutes on the date of the service which included preparing to see the patient, [id number]-phjo patient care, completing clinical documentation, obtaining and/or reviewing separately obtained history, performing a medically appropriate examination, counseling and educating the pat ient/family/caregiver, ordering medications, tests, or procedures, and communicating with other HCPs (not separately reported). documented in this encounterK[facility]11-28-2022 Miscellaneous Notes* Telephone Encounter - Anne Bethea APRN.CNP - 04/29/2022 12:03 PM EST PDMP website checked and validated. All prescriptions have been APPROPRIATELY filled. No suspiciousactivity was identified. 04/29/2022 by Anne Bethea APRN.CNP * Telephone Encounter - Marlin Champagne RN - 04/29/2022 11:52 AM EST Last Office Visit: 04/05/2022 Future Office Visit: 05/03/2022 Requested Prescriptions Pending Prescriptions Disp Refills FLUoxetine (PROZAC) 20 mg capsule 90 capsule 1 Sig: Take 1 capsule by mouth once daily. gabapentin (NEURONTIN) 100 mg capsule 90 capsule 0 Sig: Take 1 capsule by mouth three times daily for 30 days. Date of Last Labs: 10/23/2021 documented in this encounterK[facility]11-04-2022 History of Present illness Narrative* Anne Bethea APRN.CNP - 04/05/2022 12:52 PM EDT 04/05/2022 Patient presents with: ED Follow-up: [facility] 03/26/22 Fall with sutures to head SUBJECTIVE: This is a 76 year old that is here today for Above Complaints. HOSPITAL/ER FOLLOW UP: Reason for visit: fall and laceration to head Which facility: [facility] Date of visit: 03/26/2022 Diagnosis: fall, ETOH intoxication Testing done: blood work and CT head Treatment given: five sutures Current symptoms: none Patient reports he went to get out of his chair and started walking and became dizzy and fell. Since discharge no more incidents of falling or dizziness. Denies LOC. ER reports patient had elevated alcohol level. Patient admits he drank a glass of [employer]. He reports he drinks one glass every night. Denies hx of alcoholism. Held his eliquis for one day as instructed and has resumed. Has fivesutures intact above left eye. Denies drainage from sutures, redness or tenderness. Also denies headaches, visual changes, lightheadedness, syncope, extremity numbness and tinging, slurred speech, confusion, lethargy, nausea or vomiting. ER records reviewed BP w/Orthostatic Vitals Date and Time Orthostatic BP Orthostatic Pulse BP Pulse BP Position BP Site BP Cuff Size 04/05/22 1336 110/68 90 -- -- Standing Left Arm Large Adult 04/05/22 1335 126/70 86 -- -- Sitting Left Arm Large Adult 04/05/22 1334 144/82 89 -- -- Supine Left Arm Large Adult 04/05/22 1251 118/76 99 -- -- -- -- -- Peak Flow Date and Time PF Resp 04/05/22 1251 -- 18 PAST MEDICAL HISTORY Diagnosis Date AAA (abdominal aortic aneurysm) 02/06/2012 01/10/17: CT abd 4.8 cm. s/p aortobiliac stent.-Dr. Johan Berg Actinic keratosis On [place], Dr. Dudley Acute deep vein thrombosis (DVT) of femoral vein of left lower extremity (HCC) 03/16/2018 02/19/18--on Eliquis Basal cell carcinoma 2020 left cheek Benign essential tremor Benign hypertension 07/13/2015 Bruit right carotid artery Chewing tobacco use Class 1 obesity due to excess calories without serious comorbidity with body mass index (BMI) of 33.0 to 33.9 in adult Esophageal reflux Gastroesophageal reflux Facet arthritis of lumbar region 06/27/2014 History of carpal tunnel surgery 1990s Hypertrophy of prostate without urinary obstruction and other lower urinary tract symptoms (LUTS) Hypertrophy of the prostate w/o obstruction Left leg DVT (HCC) 02/19/2018 Mixed hyperlipidemia Hyperlipidemia Neoplasm of skin of hand left cheek, upper arm, ear, forearm, nose Nodule of right lung 04/17/2012 01/08/2013: CT chest 4 mm, unchanging nodule==suspect benign Other specified glaucoma Dr. Melo Personal history of colonic polyps Pulmonary emphysema (HCC) 12/31/2016 Sebaceous cyst Situational depression 07/03/2016 Squamous cell carcinoma 04/04/2015 Left cheek Venous insufficiency of both lower extremities 07/01/2014 ALLERGIES Lipitor [Atorvastatin Calcium], Medical Tape [Other], Rosuvastatin Calcium, and Ggcfiuk-Nop-Fvi Reductase Inhibitors MEDICATIONS Current Outpatient Medications Medication Sig carvedilol (COREG) 3.125 mg tablet Take 1 tablet by mouth twice daily. evolocumab (REPATHA SURECLICK) 140 mg/mL pen injector Inject 140 mg subcutaneously every 2 weeks. gabapentin (NEURONTIN) 100 mg capsule Take 1 capsule by mouth three times daily for 30 days. ELIQUIS 5 mg tab(s) Take 1 tablet by mouth twice daily. finasteride (PROSCAR) 5 mg tablet Take 1 tablet by mouth once daily. FLUoxetine (PROZAC) 20 mg capsule Take 1 capsule by mouth once daily. amLODIPine (NORVASC) 5 mg tablet TAKE 1/2 TABLET BY MOUTH ONCE DAILY omeprazole (PRILOSEC) 20 mg capsule TAKE 1 CAPSULE BY MOUTH EVERY DAY IN THE MORNING tamsulosin (FLOMAX) 0.4 mg TAKE 1 CAPSULE BY MOUTH EVERY DAY acetaminophen (TYLENOL) 325 mg tablet Take 3 tablets by mouth every 6 hours as needed for pain. fluticasone (FLONASE) 50 mcg/actuation nasal spray Use 2 Sprays in each nostril once daily. Rinse mouth after use. brimonidine (ALPHAGAN) 0.2 % ophthalmic solution Use 1 Drop in both eyes twice daily. timolol maleate (TIMOPTIC) 0.5 % ophthalmic solution Use 1 Drop in both eyes twice daily. aspirin, enteric coated (ECOTRIN LOW STRENGTH) 81 mg EC tablet Take 1 tablet by mouth once daily. No current facility-administered medications for this visit. Medications and allergies reviewed by this provider. SOCIAL HISTORY Social History Tobacco Use Smoking status: Former Packs/day: 1.00 Years: 30.00 Pack years: 30.00 Types: Cigarettes Quit date: 06/02/1988 Years since quittin.8 Smokeless tobacco: Current Types: Chew Tobacco comments: Brief relaps after of spouse. Vaping Use Vaping Use: Never used Substance Use Topics Alcohol use: Yes Drug use: No REVIEW OF SYSTEMS All other reviewed and negative other than HPI. OBJECTIVE: BP 118/76 Pulse 99 Resp 18 Wt 107.9 kg (237 lb 12.8 oz) SpO2 96% BMI 31.37 kg/m . Vital signs reviewed by this provider. APPEARANCE Well appearing, alert, in no acute distress, well-hydrated, well nourished. EYES PERRLA, conjunctiva and sclera normal. EARS External ears normal, canals clear HEART RRR with normal S1 and S2, no murmurs, no gallops, no JVD appreciated LUNG clear to auscultation. No wheezes, rhonchi, or rales EXTREMITIES Extremities normal, No deformities, No skin discoloration, and No edema NEURO Awake, alert and oriented x 3, Cranial nerves II-XII grossly intact, Reflexes symmetrical, Normal gait, No involuntary motions., and negative findings: speech normal, mental status intact, gait, including heel, toe, and tandem walking normal, Romberg negative, muscle tone normal, muscle strength normal, rapid alternating movements normal, finger to nose normal, sensation to light touch and pinprick normal, reflexes normal and symmetric, plantar response downgoing bilaterally SKIN resolving ecchymosis under left eye otherwise skin color, texture, turgor normal, no suspicious rashes or lesions to exposed skin Five sutures removed above left eyebrow. No drainage, swelling or surrounding erythema HEPATITIS C SCREENING Never done SHINGRIX VACCINE(1 of 2) Never done BP CONTROLLED (<130/80) due on 01/09/2019 ADVANCE DIRECTIVE DISCUSSION Never done PNEUMOCOCCAL: 65+(2 - PPSV23 if available, else PCV20) due on 04/25/2022 ANNUAL PCP TEAM CHRONIC DISEASE VISIT due on 03/19/2023 DIABETES SCREEN due on 07/17/2024 DTAP,TDAP,TD(3 - Td or Tdap) due on 06/15/2029 SPIROMETRY Completed INFLUENZA Completed COVID-19 VACCINE Completed ASSESSMENT/PLAN: 1. Fall, subsequent encounter - ICD9: V58.89, E888.9, ICD10: W19.XXXD (primary diagnosis) - possible from ETOH intox or orthostatic BP - BP at hospital 80/50's - plan as below 2. Orthostatic hypotension - ICD9: 458.0, ICD10: I95.1 - BP decreased from lying, siting to standing - per nurse taking them he was unsteady - will have him stop his Norvasc and follow-up in 2 week and check BP. Patient at risk for heady injury and bleeding being on eliquis - instructed patient on the importance of changing positions slowly and waiting when hs gets up to ambulate 3. Laceration of skin of eyebrow, left, subsequent encounter - ICD9: V58.89, 873.42, ICD10: S01.112D - no red flag symptoms or exam finding - red flag symptoms discussed, verbalizes understanding - monitor area for signs of infection- return to office if develops 4. Acute alcoholic intoxication with complication (HCC) - ICD9: 305.00, ICD10: F10.929 - patient denies alcohol addiction, declines services for this - discussed with patient he needs to be careful drinking while being on eliquis, increases his bleeding tendancy and affects his gait which placed him at high risk for brain bleed if he hits his head, verbalizes understanding - alcohol use discouraged 5. Injury of head, subsequent encounter - ICD9: V58.89, 959.01, ICD10: S09.90XD - no red flag symptoms or exam findings - red flag symptoms discussed, verbalizes understanding - plan as above, to ER with red flag symptoms Anne Bethea APRN.CAITY Prescription instructions reviewed with patient as applicable. Patient advised if symptoms do not improve or if symptoms worsen sooner, to contact their primary care physician. Potential red flag symptoms discussed with the patient. Reviewed appropriate action plan to take if red flag symptoms occur. Patient agreeable to treatment plan. I spent a total of 30 minutes on the date of the service which included preparing to see the patient, gwrn-zy-onro patient care, completing clinical documentation, obtaining and/or reviewing separately obtained history, performing a medically appropriate examination, counseling and educating the pat ient/family/caregiver, and ordering medications, tests, or procedures. documented in this encounterK[facility]10-26-2022 Miscellaneous Notes* Telephone Encounter - Tamela Bradley Ma - 03/27/2022 12:38 PM EDT Last office visit: 03/19/22 F/u scheduled: 04/03/22 Tamela Bradley Ma * Telephone Encounter - Pippa Culver - 03/27/2022 12:07 PM EDT Patient has been identified by name and date of : Yes Last office visit in this department: 03/19/2022 RX INSTRUCTIONS: Patient aware RX will be sent to pharmacy. No need to notify patient. Patient phones requesting refills as follows: Requested Prescriptions Pending Prescriptions Disp Refills carvedilol (COREG) 3.125 mg tablet 180 tablet 1 Sig: Take 1 tablet by mouth twice daily. Please review and advise. Pippa Culver documented in this encounterK[facility]10-18-2022 History of Present illness Narrative* Kanchan Ge MD - 03/19/2022 2:58 PM EDT Chief Complaint Patient presents with: Follow Up: 6 month-patient didn't continue Repatha as he stated it didn't get filled HPI Vicki Randle is a 76 year old male who presents here today for Above Complaints.. Patient did follow up with Dr. Aguiar for acute right shoulder pain back in November. Given betamethasone injection without improvement and then had MRI. Found to have rotator cuff tendonosis with frozenshoulder. Pain and ROM have improved since last OV. Not wanting further workup today. Needs refill on Repatha today. Ran out in December. BP well controlled on current regimen. Depression controlled on prozac. Primidone not working to control his essential tremor. Denies side effects with this medication. Worried he could have parkinsons. Admits to being unsteady on his feet. Denies slowed/stiff movements,tremor at rest. Past medical history, appointments, medications, allergies reviewed. Previous Medical History PAST MEDICAL HISTORY Diagnosis Date AAA (abdominal aortic aneurysm) 02/06/2012 01/10/17: CT abd 4.8 cm. s/p aortobiliac stent.-Dr. Johan Berg Actinic keratosis On [place], Dr. Dudley Acute deep vein thrombosis (DVT) of femoral vein of left lower extremity (HCC) 03/16/2018 02/19/18--on Eliquis Basal cell carcinoma 2019 left cheek Benign essential tremor Benign hypertension 07/13/2015 Bruit right carotid artery Chewing tobacco use Class 1 obesity due to excess calories without serious comorbidity with body mass index (BMI) of 33.0 to 33.9 in adult Esophageal reflux Gastroesophageal reflux Facet arthritis of lumbar region 06/27/2014 History of carpal tunnel surgery 1990s Hypertrophy of prostate without urinary obstruction and other lower urinary tract symptoms (LUTS) Hypertrophy of the prostate w/o obstruction Left leg DVT (HCC) 02/19/2018 Mixed hyperlipidemia Hyperlipidemia Neoplasm of skin of hand left cheek, upper arm, ear, forearm, nose Nodule of right lung 04/17/2012 01/08/2013: CT chest 4 mm, unchanging nodule==suspect benign Other specified glaucoma Dr. Melo Personal history of colonic polyps Pulmonary emphysema (HCC) 12/31/2016 Sebaceous cyst Situational depression 07/03/2016 Squamous cell carcinoma 04/04/2015 Left cheek Venous insufficiency of both lower extremities 07/01/2014 Previous Surgical History PAST SURGICAL HISTORY Procedure Laterality Date COLONOSCOPY 12/29/2017 adenomatous polyp, repeat in 5 years COLONOSCOPY FLX DX W/COLLJ SPEC WHEN PFRMD 08/17/2007 EXCISION TUMOR SOFT TISSUE THIGH/KNEE SUBQ <3CM REMOVED FATTY TUMORS FROM UNDER EXCISION TUMOR SOFT TISSUE THIGH/KNEE SUBQ <3CM RMOVED FATTY TUMORE INT REPAIR SCALP,JAYCOB,TRUNK 7.6-12.5CM 02/24/2007 back LAPS SURG CHOLECYSTECTOMY W/CHOLANGIOGRAPHY 09/07/2007 MRI 02/22/2014 [facility] - mri - right knee PAST SURGICAL HISTORY OF N/A 09/09/2017 Abdominal aneurysm aortic repair PAST SURGICAL HISTORY OF Right 2013 arthroscopic knee surgery PAST SURGICAL HISTORY OF Left excision of knee bursa REM LESION TRUNK,ARM,LEG > 4.0CM 02/24/2007 back REM LESION TRUNK,ARM,LEG > 4.0CM REVISE MEDIAN N/CARPAL TUNNEL SURG Bilateral 1990s SURGERY (GENERAL SURGERY) CONSULT 04/25/2015 Invasive squamous cell carcincoma see scanned documents Family History FAMILY HISTORY Problem Relation Age of Onset Emphysema Mother Arthritis Sister Hypertension Maternal Grandmother No Known Problems Son No Known Problems Son No Known Problems Son No Known Problems Son No Known Problems Son Patient Allergies ALLERGIES Allergen Reactions Lipitor [Atorvastat* Intolerance Medical Tape [Other] Itching Rosuvastatin Calcium Intolerance Sfqmhje-Nhq-Baw Red* Myalgia Current Medications Current Outpatient Medications on File Prior to Visit Medication Sig ELIQUIS 5 mg tab(s) Take 1 tablet by mouth twice daily. finasteride (PROSCAR) 5 mg tablet Take 1 tablet by mouth once daily. primidone (MYSOLINE) 250 mg tablet Take 1 tablet by mouth once daily. FLUoxetine (PROZAC) 20 mg capsule Take 1 capsule by mouth once daily. amLODIPine (NORVASC) 5 mg tablet TAKE 1/2 TABLET BY MOUTH ONCE DAILY omeprazole (PRILOSEC) 20 mg capsule TAKE 1 CAPSULE BY MOUTH EVERY DAY IN THE MORNING carvedilol (COREG) 3.125 mg tablet Take 1 tablet by mouth twice daily. tamsulosin (FLOMAX) 0.4 mg TAKE 1 CAPSULE BY MOUTH EVERY DAY acetaminophen (TYLENOL) 325 mg tablet Take 3 tablets by mouth every 6 hours as needed for pain. fluticasone (FLONASE) 50 mcg/actuation nasal spray Use 2 Sprays in each nostril once daily. Rinse mouth after use. brimonidine (ALPHAGAN) 0.2 % ophthalmic solution Use 1 Drop in both eyes twice daily. timolol maleate (TIMOPTIC) 0.5 % ophthalmic solution Use 1 Drop in both eyes twice daily. aspirin, enteric coated (ECOTRIN LOW STRENGTH) 81 mg EC tablet Take 1 tablet by mouth once daily. evolocumab (REPATHA SURECLICK) 140 mg/mL pen injector Inject 140 mg subcutaneously every 2 weeks. No current facility-administered medications on file prior to visit. Social History Social History Tobacco Use Smoking status: Former Packs/day: 1.00 Years: 30.00 Pack years: 30.00 Types: Cigarettes Quit date: 06/02/1988 Years since quittin.8 Smokeless tobacco: Current Types: Chew Tobacco comments: Brief relaps after of spouse. Vaping Use Vaping Use: Never used Substance Use Topics Alcohol use: Yes Drug use: No Review of Symptoms REVIEW OF SYSTEMS GENERAL: No weight loss, malaise or fevers RESPIRATORY: Negative for cough, hemoptysis, wheezing, COPD, dyspnea or shortness of breath CARDIOVASCULAR: Negative for chest pain, leg swelling, hypertension, CHF or palpitations GI: No nausea, vomiting, or diarrhea SKIN: Negative for lesions, rash, and itching EXAM: BP 118/82 Pulse 73 Resp 16 Wt 111.1 kg (245 lb) SpO2 94% BMI 32.32 kg/m General Appearance: Well appearing, alert, in no acute distress, well-hydrated, well nourished.. Skin: Skin color, texture, turgor normal, no suspicious rashes or lesions. Lungs: Lungs clear to auscultation. No wheezing, rhonchi, rales.. Heart: RRR without murmur, gallop, or rubs. No ectopy. Abdomen: Normal abdominal exam, Abdomen soft, non-tender. Bowel sounds normal. No masses, organomegaly. 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 Good capillary refill. . Musculoskeletal: Improved ROM of right shoulder with normal abduction and flexion with minimal pain. Neurologic: Negative findings: speech normal, mental status intact, cranial nerves 2-12 intact, muscle tone normal, muscle strength normal, sensation to light touch and pinprick normal, reflexes normal and symmetric, no resting/pill rolling tremor, no cogwheel rigidity. Positive findings: mild essential tremor with hands outstretched Health Maintenance List HEPATITIS C SCREENING Never done SHINGRIX VACCINE(1 of 2) Never done ADVANCE DIRECTIVE DISCUSSION Never done COVID-19 VACCINE(5 - Booster) due on 12/18/2021 INFLUENZA(1) due on 01/31/2022 PNEUMOCOCCAL: 65+(2 - PPSV23 if available, else PCV20) due on 04/25/2022 ANNUAL PCP TEAM CHRONIC DISEASE VISIT due on 12/06/2022 BP CONTROLLED (<130/80) due on 01/11/2023 DIABETES SCREEN due on 07/17/2024 DTAP,TDAP,TD(3 - Td or Tdap) due on 06/15/2029 SPIROMETRY Completed Data reviewed Component Latest Ref Rng & Units 10/23/2021 WBC 3.70 - 11.00 k/uL 7.53 RBC 4.20 - 6.00 m/uL 4.63 Hemoglobin 13.0 - 17.0 g/dL 14.3 Hematocrit 39.0 - 51.0 % 45.5 MCV 80.0 - 100.0 fL 98.3 MCH 26.0 - 34.0 pg 30.9 MCHC 30.5 - 36.0 g/dL 31.4 RDW-CV 11.5 - 15.0 % 14.3 Platelet Count 150 - 400 k/uL 263 MPV 9.0 - 12.7 fL 10.5 Neut% % 74.9 Abs Neut (ANC) 1.45 - 7.50 k/uL 5.65 Lymph% % 15.8 Abs Lymph 1.00 - 4.00 k/uL 1.19 Seward% % 6.4 Abs [place]ard <0.87 k/uL 0.48 Eosin% % 1.9 Abs Eosin <0.46 k/uL 0.14 Baso% % 0.7 Abs Baso <0.11 k/uL 0.05 Immature Gran % % 0.3 IMMATURE GRANS (ABS) <0.10 k/uL <0.03 NRBC /100 WBC 0.0 Absolute nRBC <0.01 k/uL <0.01 DTYPE Auto Total Cholesterol, Nonfasting <200 mg/dL 203 (H) Triglycerides, Nonfasting <150 mg/dL 140 HDL Cholesterol, Nonfasting >39 mg/dL 59 LDL Cholesterol, Nonfasting <100 mg/dL 116 (H) Non HDL Cholesterol, Nonfasting <130 mg/dL 144 (H) VLDL Cholesterol, Nonfasting <30 mg/dL 28 Total Chol/HDL Ratio, Nonfasting <5.10 mg/dL 3.44 LDL/HDL Ratio, Nonfasting <2.54 mg/dL 1.97 ASSESSMENT/PLAN: 1. Tendinopathy of right rotator cuff - ICD9: 727.9, ICD10: M67.911 (primary diagnosis) Pain and ROM improved after injection. F/u with ortho if symptoms return or worsen. 2. Adhesive capsulitis of right shoulder - ICD9: 726.0, ICD10: M75.01 See above. 3. Hyperlipidemia with target LDL less than 100 - ICD9: 272.4, ICD10: E78.5 - to be determined upon return of lab results - Continue current medication. - Encouraged following a low fat, low cholesterol diet. - Discussed the benefits of regular aerobic exercise and weight loss. - REPATHA SURECLICK 140 MG/ML SUBCUTANEOUS PEN INJECTOR 4. Essential tremor - ICD9: 333.1, ICD10: G25.0 Discussed his symptoms are not improved with primidone. Will switch to Gabapentin 100 mg TID and have patient call if not improving in 2-3 weeks. - GABAPENTIN 100 MG CAPSULE 5. Benign hypertension - ICD9: 401.1, ICD10: I10 - good control - Continue current medication(s) - Encouraged dietary sodium restriction/DASH diet - Recommended regular aerobic exercise. - Reviewed risks of HTN and principles of treatment - Goal of BP <140/90 6. Situational depression - ICD9: 309.0, ICD10: F43.21 Controlled on Prozac. 7. Need for influenza vaccination - ICD9: V04.81, ICD10: Z23 - INFLUENZA SEASONAL QUADRIVALENT HIGH DOSE AGE 65+ 8. Need for COVID-19 vaccine - ICD9: V04.89, ICD10: Z23 - PFIZER-BIONTECH COVID-19 BIVALENT BOOSTER VACCINE, AGE 12+ YR Kanchan Ge MD documented in this encounterK[facility]09-28-2022 Miscellaneous Notes* Telephone Encounter - Berta Painter Ma - 02/27/2022 9:52 AM EDT I called and left a message for patient to contact the office. * Telephone Encounter - Mera Portillo RN - 02/25/2022 2:20 PM EDT Vicki returned the call. Reviewed the message about his MRI results. Vicki would like to speak with someone at the office. Mera Portillo RN * Telephone Encounter - Breta Painter Ma - 02/25/2022 2:03 PM EDT Attempted to reach patient x 2. Can hear patient say hello and then the phone call ends. Will attempt to contact patient again later. * Telephone Encounter - Berta Painter Ma - 02/25/2022 2:03 PM EDT Images from the original note were not included. Jonathan Aguiar MD P [facility] Orthopaedic Pool Please let him know that there is no tear in the shoulder requiring surgery, but evidence of inflammation and a frozen shoulder. documented in this encounterKettering [facility]09-15-2022 History of Present illness Narrative* Margaret Kohli, RT(R) - 02/14/2022 3:00 PM EDT Radiology Service Progress Note PATIENT NAME: Vicki Randle DATE OF SERVICE: February 14, 2022 TIME: 3:21 PM PATIENT IDENTITY VERIFICATION COMPLETED USING TWO (2) IDENTIFIERS: Name and Date of confirmedby patient verbally. FALL SCREENING: Has the patient had 2 falls in the last year or 1 fall with injury or currently using an Ambulatory Assistive Device (Walker, Cane, Wheelchair, Crutches, etc.)? No PATIENT GENDER DATA: Male PATIENT RELEVANT IMPLANT DATA REVIEWED: Yes RADIOLOGY DEPARTMENT: MR; Exam(s) Completed: Upper MSK: Shoulder, right PERIPHERAL IV DATA: Not applicable SIGNED BY: RT Keaton(R) February 14, 2022 3:21 PM documented in this encounterKettering [facility] Hospital08-25-2022 History of Present illness Narrative* Jonathan Aguiar MD - 01/24/2022 2:20 PM EDT Jonathan Aguiar MD Department of Orthopaedics Orthopaedics [address] [place] [id number] Dept: [phone] Dept January 24, 2022 CHIEF COMPLAINT: Established Patient and Follow Up of the Right Shoulder HPI Patient here today for 5 weeks 3 days post visit impingement syndrome of the right shoulder with injection given. Patient denies any relief from the injection. ASSESSMENT: M25.511 Acute pain of right shoulder (primary encounter diagnosis) M25.619 Limited range of motion (ROM) of shoulder M75.41 Impingement syndrome of right shoulder S46.011A Traumatic tear of right rotator cuff, unspecified tear extent, initial encounter PLAN: Due to his persistent pain in the shoulder, range of motion issues, and no improvement from cortisone injection, and like to get an MRI to evaluate shoulder. Mr. Vicki Randle was advised as to contrast therapies and/or to take analgesics/anti-inflammatories as needed and all contraindications were reviewed. OBJECTIVE: Mr. Vicki Randle is a pleasant 76 year old in no apparent distress. Gen:There were no vitals taken for this visit. nl development, non obese, no deformities ENT: Normocephalic, normal hearing, moist mucosa CV: Pulses:Radial= 2+ and symmetric, capillary refill < 2 secs, no peripheral edema/varicosities Skin: no rash, bruising or lesions. Good turgor. Psych: cooperative and appropriate, alert and oriented x 3, good mood and affect. Musculoskeletal: He has painful range of motion of the 150 degrees forward elevation, external of 50, internal to the low lumbar spine. Pain with Neer and Batista impingement signs and 4 out of 5 supraspinatus testing and infraspinatus testing. Imagin views of the right shoulder showed no fracture or dislocation, mild AC joint OA. Supporting Subjective Information Below: Past Surgical History: PAST SURGICAL HISTORY Procedure Laterality Date COLONOSCOPY 12/29/2017 adenomatous polyp, repeat in 5 years COLONOSCOPY FLX DX W/COLLJ SPEC WHEN PFRMD 08/17/2007 EXCISION TUMOR SOFT TISSUE THIGH/KNEE SUBQ <3CM REMOVED FATTY TUMORS FROM UNDER EXCISION TUMOR SOFT TISSUE THIGH/KNEE SUBQ <3CM RMOVED FATTY TUMORE INT REPAIR SCALP,JAYCOB,TRUNK 7.6-12.5CM 02/24/2007 back LAPS SURG CHOLECYSTECTOMY W/CHOLANGIOGRAPHY 09/07/2007 MRI 02/22/2014 [facility] - mri - right knee PAST SURGICAL HISTORY OF N/A 09/09/2017 Abdominal aneurysm aortic repair PAST SURGICAL HISTORY OF Right 2013 arthroscopic knee surgery PAST SURGICAL HISTORY OF Left excision of knee bursa REM LESION TRUNK,ARM,LEG > 4.0CM 02/24/2007 back REM LESION TRUNK,ARM,LEG > 4.0CM REVISE MEDIAN N/CARPAL TUNNEL SURG Bilateral 1990s SURGERY (GENERAL SURGERY) CONSULT 04/25/2015 Invasive squamous cell carcincoma see scanned documents Medications: Current Outpatient Medications Medication Sig finasteride (PROSCAR) 5 mg tablet Take 1 tablet by mouth once daily. primidone (MYSOLINE) 250 mg tablet Take 1 tablet by mouth once daily. FLUoxetine (PROZAC) 20 mg capsule Take 1 capsule by mouth once daily. amLODIPine (NORVASC) 5 mg tablet TAKE 1/2 TABLET BY MOUTH ONCE DAILY omeprazole (PRILOSEC) 20 mg capsule TAKE 1 CAPSULE BY MOUTH EVERY DAY IN THE MORNING carvedilol (COREG) 3.125 mg tablet Take 1 tablet by mouth twice daily. tamsulosin (FLOMAX) 0.4 mg TAKE 1 CAPSULE BY MOUTH EVERY DAY fluticasone (FLONASE) 50 mcg/actuation nasal spray Use 2 Sprays in each nostril once daily. Rinse mouth after use. ELIQUIS 5 mg tab(s) Take 1 tablet by mouth twice daily. brimonidine (ALPHAGAN) 0.2 % ophthalmic solution Use 1 Drop in both eyes twice daily. timolol maleate (TIMOPTIC) 0.5 % ophthalmic solution Use 1 Drop in both eyes twice daily. aspirin, enteric coated (ECOTRIN LOW STRENGTH) 81 mg EC tablet Take 1 tablet by mouth once daily. evolocumab (REPATHA SURECLICK) 140 mg/mL pen injector Inject 140 mg subcutaneously every 2 weeks. acetaminophen (TYLENOL) 325 mg tablet Take 3 tablets by mouth every 6 hours as needed for pain. No current facility-administered medications for this visit. Allergies: Lipitor [Atorvastatin Calcium], Medical Tape [Other], Rosuvastatin Calcium, and Uldxskr-Ssc-Vvv Reductase Inhibitors ROS: General (negative for fatigue, malaise, weight loss/gain) HEENT (negative for headache, earache, recent vision changes, sinus pain, sore throat) Respiratory (no recent shortness of breath, hemoptysis) CV (negative for chest tightness, palpitations) Musculoskeletal (see HPI) Psych (no depression, anxiety) Jonathan Aguiar MD documented in [facility] encounter[facility] History of Present illness Narrative* Thien Riggs PA-C - 01/11/2022 3:11 PM EDT Images from the original note were not included. Pending Sale To [facility] CC: BPH Follow-Up HPI Vicki Randle is a 76 year old male, who has a history of BPH with LUTS. Currently taking Flomax and Proscar Patient states no LUTS today PSA No longer being followed Previous Studies: None LAB: PSA (ng/mL) Date Value 01/04/2020 1.39 12/31/2018 1.50 01/09/2018 1.80 Creatinine (mg/dL) Date Value 07/17/2021 0.95 07/16/2021 0.87 10/19/2020 0.82 12/31/2018 0.97 01/09/2018 1.13 Hematocrit (%) Date Value 10/23/2021 45.5 07/17/2021 36.2 07/16/2021 39.8 10/19/2020 45.1 06/12/2018 50.1 03/16/2018 47.2 IMAGING: No imaging today ALLERGIES: Lipitor [Atorvastatin Calcium], Medical Tape [Other], Rosuvastatin Calcium, and Bmzqkyj-Pzs-Hqq Reductase Inhibitors CURRENT MEDICATIONS: Current Outpatient Medications Medication Sig Dispense Refill primidone (MYSOLINE) 250 mg tablet Take 1 tablet by mouth once daily. 90 tablet 1 FLUoxetine (PROZAC) 20 mg capsule Take 1 capsule by mouth once daily. 90 capsule 1 amLODIPine (NORVASC) 5 mg tablet TAKE 1/2 TABLET BY MOUTH ONCE DAILY 45 tablet 3 omeprazole (PRILOSEC) 20 mg capsule TAKE 1 CAPSULE BY MOUTH EVERY DAY IN THE MORNING 90 capsule 3 carvedilol (COREG) 3.125 mg tablet Take 1 tablet by mouth twice daily. 180 tablet 1 tamsulosin (FLOMAX) 0.4 mg TAKE 1 CAPSULE BY MOUTH EVERY DAY 90 capsule 3 evolocumab (REPATHA SURECLICK) 140 mg/mL pen injector Inject 140 mg subcutaneously every 2 weeks. 2Pen 5 acetaminophen (TYLENOL) 325 mg tablet Take 3 tablets by mouth every 6 hours as needed for pain. fluticasone (FLONASE) 50 mcg/actuation nasal spray Use 2 Sprays in each nostril once daily. Rinse mouth after use. 1 Each 2 ELIQUIS 5 mg tab(s) Take 1 tablet by mouth twice daily. 60 tablet 11 brimonidine (ALPHAGAN) 0.2 % ophthalmic solution Use 1 Drop in both eyes twice daily. 6 timolol maleate (TIMOPTIC) 0.5 % ophthalmic solution Use 1 Drop in both eyes twice daily. 6 aspirin, enteric coated (ECOTRIN LOW STRENGTH) 81 mg EC tablet Take 1 tablet by mouth once daily. 0 finasteride (PROSCAR) 5 mg tablet Take 1 tablet by mouth once daily. 90 tablet 3 No current facility-administered medications for this visit. LABS: Results for orders placed or performed in visit on 01/11/22 UA DIP, URINE (POC) Result Value Ref Range GLUCOSE UA (POCT) Negative Negative mg/dL BILIRUBIN UA (POCT) Small (A) Negative KETONE UA (POCT) Negative Negative mg/dL SPECIFIC GRAVITY UA (POCT) 1.025 1.005 - 1.030 HEMOGLOBIN/BLOOD UA (POCT) Negative Negative PH UA (POCT) 6.0 4.5 - 8.0 PROTEIN UA (POCT) Trace (A) Negative mg/dL UROBILINOGEN UA (POCT) 1.0 Normal E.U./dL NITRITE UA (POCT) Negative Negative LEUKOCYTES UA (POCT) Small (A) Negative COLOR UA (POCT) Dark yellow CLARITY UA (POCT) Slightly Cloudy REVIEW OF SYSTEMS GENERAL:SEE HPI, No weight loss, malaise or fevers. GENITOURINARY: See HPI The remainder of the ROS was negative. PHYSICAL EXAMINATION Blood pressure 108/74, pulse 90, temperature 36.4 C (97.6 F), temperature source Temporal, resp. rate 16, height 185.4 cm (6' 1), weight 109.8 kg (242 lb), SpO2 96 %. General appearance: Well appearing, alert, in no acute distress, well-hydrated, well nourished IMPRESSION/PLAN: > History of BPH with LUTS > PSA -No longer following PSA > Flomax and Proscar Rx are good until 07/2022 >1 year Appt w/ LORE Parnell MT, PA-C For refills LORE Spangler MT, PA-C * Sera Orantes LPN - 01/11/2022 3:01 PM EDT CC Post Void Residual HPI: Vicki Randle is a 76 year old male. The patient is here now for an appointment with LORE Spangler MT, PA-COV. Procedure: Explained procedure to patient and verbalizes understanding. Performed a PVR. Patient urinated and instructed to empty bladder as much as possible just prior to having PVR done using bladder ultrasound scanner. Results of scan: 0 mL The patient tolerated the procedure well. Plan: Appointment with Thien. documented in this encounterK[facility]07[facility] History of Present illness Narrative* Jonathan Aguiar MD - 12/17/2021 2:35 PM EDT Associated Order(s): Large Joint Arthro/Inj: R subacromial bursa Jonathan Aguiar MD Department of Orthopaedics Orthopaedics [address] [facility] [address] Dept: [phone] Dept December 17, [address] Ge for an opinion regarding right shoulder pain. My final recommendations will be communicated back to the requesting physician by way of shared Medical record or letter to requesting physician via US mail. CHIEF COMPLAINT: New and Pain of the Right Shoulder and Referred by Dr. Ge HPI Patient states about a month ago he started having pain in his right shoulder. No specific injury. He is having difficulty reaching above his head and behind his back. Patient is right hand dominant.Taking Tylenol for the pain and only dulls the pain. X-rays done on 10/23/21.\ AMB ROOMING INTAKE FLOWSHEET DATA Pain Pain Level: 8 Pain Location: Shoulder-Right Description: Sharp Duration Amount of Time: 1 Duration Units: Months Frequency: Intermittent Intervention/Comfort measure: Medication ASSESSMENT: M25.511 Acute pain of right shoulder M25.619 Limited range of motion (ROM) of shoulder PLAN: Acute strain/impinement. He would like to try a cortisone injection. FOLLOW UP INSTRUCTIONS: As needed. Mr. Vicki Randle was advised as to contrast therapies and/or to take analgesics/anti-inflammatories as needed and all contraindications were reviewed. OBJECTIVE: Mr. Vicki Randle is a pleasant 76 year old in no apparent distress. Gen:There were no vitals taken for this visit. nl development, non obese, no deformities ENT: Normocephalic, normal hearing, moist mucosa CV: Pulses:Radial= 2+ and symmetric, capillary refill < 2 secs, no peripheral edema/varicosities Skin: no rash, bruising or lesions. Good turgor. Psych: cooperative and appropriate, alert and oriented x 3, good mood and affect. Musculoskeletal: Supple range of motion of the cervical spine without pain. Spurling signs are negative. No atrophy of the deltoid and shoulder musculature. Right shoulder is nontender to palpation over the SC joint,clavicle and AC joint. no tenderness to palpation over the posterior shoulder, positive tenderness over the anterior lateral corner of the shoulder and greater tuberosity. Non-painful at the bicipital groove and coracoid. Active range of motion is 160 of forward elevation, 60 external rotation, andinternal rotation to the mid lumbar. Passive range of motion is symmetrical, respectively. No laxity with anterior and posterior stress. Positive Neer and Batista impingement signs. 4/5 strength with supraspinatus, infraspinatus and subscapularis. Sensation is intact in the axillary, radial, medianand ulnar nerve distribution Large Joint Arthro/Inj: R subacromial bursa Informed Consent Consent Obtained: Verbal Tyler Protocol A moment to CARE was completed. SIGN IN Sign in communication not applicable due to emergent procedure. Personnel directly involved with the procedure wore the appropriate PPE. Special Equipment: N/A Patient/Surrogate Stated/Verified: Patient name, Date of , Relevant allergies and Intended procedure TIME OUT Intended patient and procedure match the source document(s). Consent documented and matches the intended procedure. Relevant labs, photos, and/or imaging studies have been reviewed. Correct side/site marked and visible. Medications required for procedure verified. No fire risk assessment and interventions applicable. No implant(s) inserted. 12/17/2021 3:20 PM The procedure site was prepped in the usual sterile fashion. Site: R subacromial bursa Medications: 6 mg betamethasone acetate-betamethasone sodium phosphate 6 mg/mL Anesthetics: 4 mL lidocaine (PF) 10 mg/mL (1 %) Outcome: Tolerated well, no immediate complications Post-injection instructions were reviewed with the patient and the patient voiced understanding of these instructions. SIGN OUT No specimen collected. All instruments, equipment, possible retained foreign bodies accounted for. Post-procedure follow-up management communicated and Plan of Care Visit completed when applicable IMAGING: IMPRESSION: No radiographic evidence of acute osseous abnormality Relocation Services Specialist: RUDDY Transcribe Date/Time: Oct 23 2021 3:29P Dictated by : CESAR DALLAS MD This examination was interpreted and the report reviewed and electronically signed by: CESAR DALLAS MD on Oct 23 2021 3:29PM EST Results-Findings * * *Final Report* * * DATE OF EXAM: Oct 23 2021 3:24PM WOX [id number] - XR SHLDR >/=3V AP/NEEL AP/OTHR RT / PROCEDURE REASON: Acute pain of right shoulder * * * * Physician Interpretation * * * * CLINICAL INDICATION: Shoulder pain TECHNIQUE: 3 view right fixed study of the right shoulder COMPARISON: None FINDINGS: No acute fracture or dislocation identified. Acromioclavicular joint intact. Supporting Subjective Information Below: Past Medical History: PAST MEDICAL HISTORY Diagnosis Date AAA (abdominal aortic aneurysm) (HCC) 02/06/2012 01/10/17: CT abd 4.8 cm. s/p aortobiliac stent.-Dr. Johan Berg Actinic keratosis On [place], Dr. Dudley Acute deep vein thrombosis (DVT) of femoral vein of left lower extremity ([facility]) 03/16/2018 02/19/18--on Eliquis Basal cell carcinoma 2020 left cheek Benign essential tremor Benign hypertension 07/13/2015 Bruit right carotid artery Chewing tobacco use Class 1 obesity due to excess calories without serious comorbidity with body mass index (BMI) of 33.0 to 33.9 in adult Esophageal reflux Gastroesophageal reflux Facet arthritis of lumbar region 06/27/2014 History of carpal tunnel surgery 1990s Hypertrophy of prostate without urinary obstruction and other lower urinary tract symptoms (LUTS) Hypertrophy of the prostate w/o obstruction Left leg DVT (HCC) 02/19/2018 Mixed hyperlipidemia Hyperlipidemia Neoplasm of skin of hand left cheek, upper arm, ear, forearm, nose Nodule of right lung 04/17/2012 01/08/2013: CT chest 4 mm, unchanging nodule==suspect benign Other specified glaucoma Dr. Melo Personal history of colonic polyps Pulmonary emphysema ([facility]) 12/31/2016 Sebaceous cyst Situational depression 07/03/2016 Squamous cell carcinoma 04/04/2015 Left cheek Venous insufficiency of both lower extremities 07/01/2014 Past Surgical History: PAST SURGICAL HISTORY Procedure Laterality Date COLONOSCOPY 12/29/2017 adenomatous polyp, repeat in 5 years COLONOSCOPY FLX DX W/COLLJ SPEC WHEN PFRMD 08/17/2007 EXCISION TUMOR SOFT TISSUE THIGH/KNEE SUBQ <3CM REMOVED FATTY TUMORS FROM UNDER EXCISION TUMOR SOFT TISSUE THIGH/KNEE SUBQ <3CM RMOVED FATTY TUMORE INT REPAIR SCALP,JAYCOB,TRUNK 7.6-12.5CM 02/24/2007 back LAPS SURG CHOLECYSTECTOMY W/CHOLANGIOGRAPHY 09/07/2007 MRI 02/22/2014 [facility] - mri - right knee PAST SURGICAL HISTORY OF N/A 09/09/2017 Abdominal aneurysm aortic repair PAST SURGICAL HISTORY OF Right 2013 arthroscopic knee surgery PAST SURGICAL HISTORY OF Left excision of knee bursa REM LESION TRUNK,ARM,LEG > 4.0CM 02/24/2007 back REM LESION TRUNK,ARM,LEG > 4.0CM REVISE MEDIAN N/CARPAL TUNNEL SURG Bilateral 1990s SURGERY (GENERAL SURGERY) CONSULT 04/25/2015 Invasive squamous cell carcincoma see scanned documents Family History: FAMILY HISTORY Problem Relation Age of Onset Emphysema Mother Arthritis Sister Hypertension Maternal Grandmother No Known Problems Son No Known Problems Son No Known Problems Son No Known Problems Son No Known Problems Son Social History: Social History Tobacco Use Smoking status: Former Smoker Packs/day: 1.00 Years: 30.00 Pack years: 30.00 Types: Cigarettes Quit date: 06/02/1988 Years since quittin.5 Smokeless tobacco: Current User Types: Chew Tobacco comment: Brief relaps after of spouse. Vaping Use Vaping Use: Never used Substance Use Topics Alcohol use: Yes Comment: Seldom Drug use: No Medications: Current Outpatient Medications Medication Sig primidone (MYSOLINE) 250 mg tablet Take 1 tablet by mouth once daily. FLUoxetine (PROZAC) 20 mg capsule Take 1 capsule by mouth once daily. amLODIPine (NORVASC) 5 mg tablet TAKE 1/2 TABLET BY MOUTH ONCE DAILY omeprazole (PRILOSEC) 20 mg capsule TAKE 1 CAPSULE BY MOUTH EVERY DAY IN THE MORNING carvedilol (COREG) 3.125 mg tablet Take 1 tablet by mouth twice daily. tamsulosin (FLOMAX) 0.4 mg TAKE 1 CAPSULE BY MOUTH EVERY DAY evolocumab (REPATHA SURECLICK) 140 mg/mL pen injector Inject 140 mg subcutaneously every 2 weeks. acetaminophen (TYLENOL) 325 mg tablet Take 3 tablets by mouth every 6 hours as needed for pain. fluticasone (FLONASE) 50 mcg/actuation nasal spray Use 2 Sprays in each nostril once daily. Rinse mouth after use. ELIQUIS 5 mg tab(s) Take 1 tablet by mouth twice daily. finasteride (PROSCAR) 5 mg tablet Take 1 tablet by mouth once daily. brimonidine (ALPHAGAN) 0.2 % ophthalmic solution Use 1 Drop in both eyes twice daily. timolol maleate (TIMOPTIC) 0.5 % ophthalmic solution Use 1 Drop in both eyes twice daily. aspirin, enteric coated (ECOTRIN LOW STRENGTH) 81 mg EC tablet Take 1 tablet by mouth once daily. No current facility-administered medications for this visit. Allergies: Lipitor [Atorvastatin Calcium], Medical Tape [Other], Rosuvastatin Calcium, and Zwxuxjp-Rmh-Bkk Reductase Inhibitors ROS: General (negative for fatigue, malaise, weight loss/gain) HEENT (negative for headache, earache, recent vision changes, sinus pain, sore throat) Respiratory (no recent shortness of breath, hemoptysis) CV (negative for chest tightness, palpitations) Musculoskeletal (see HPI) Psych (no depression, anxiety) REFERRING PHYSICIAN: Mr. Vicki Randle was referred to me for consultation by the following physician. This consultation note will be sent to the following physician by either mail or electronic medical record. Kanchan Ge [address] [facility] [id number] Kanchan Ge MD [address] [facility] [address] Jonathan Aguiar MD documented in this encounterK[facility]07-07-2022 Instructions* Patient Instructions* Kanchan Ge MD - 12/06/2021 11:48 AM EDT You can take up to 1,000 mg of tylenol 3 times per day along with ice or heat as needed. documented in this encounterK[facility]07-[facility]-2022 History of Present illness Narrative* Kanchan Ge MD - 12/06/2021 11:39 AM EDT Chief Complaint Patient presents with: Pain: right shoulder x 3 months HPI Vicki Randle is a 76 year old male who presents here today for Above Complaints.. Patient evaluated on 10/23 for acute pain in right shoulder after fall onto his elbow. Findings consistent with rotator cuff tear. Patient was not interested in surgical options, so obtained xray which was negative for fracture/dislocation and referred to PT. Patient states that since his last OV, he has not been able to do the home exercises due to limitedROM. Has not followed up with physical therapy. Still complaining of 8/10 pain over anterior/superior aspect of his shoulder. No taking anything OTC for pain. Has not tried ice/heat. Denies new fall or injury, fever, bruising, erythema, swelling. Past medical history, appointments, medications, allergies reviewed. Previous Medical History PAST MEDICAL HISTORY Diagnosis Date AAA (abdominal aortic aneurysm) ([facility]) 02/06/2012 01/10/17: CT abd 4.8 cm. s/p aortobiliac stent.-Dr. Johan Berg Actinic keratosis [place], Dr. Dudley Acute deep vein thrombosis (DVT) of femoral vein of left lower extremity ([facility]) 03/16/2018 02/19/18--on Eliquis Basal cell carcinoma 2020 left cheek Benign essential tremor Benign hypertension 07/13/2015 Bruit right carotid artery Chewing tobacco use Class 1 obesity due to excess calories without serious comorbidity with body mass index (BMI) of 33.0 to 33.9 in adult Esophageal reflux Gastroesophageal reflux Facet arthritis of lumbar region 06/27/2014 History of carpal tunnel surgery 1990s Hypertrophy of prostate without urinary obstruction and other lower urinary tract symptoms (LUTS) Hypertrophy of the prostate w/o obstruction Left leg DVT ([facility]) 02/19/2018 Mixed hyperlipidemia Hyperlipidemia Neoplasm of skin of hand left cheek, upper arm, ear, forearm, nose Nodule of right lung 04/17/2012 01/08/2013: CT chest 4 mm, unchanging nodule==suspect benign Other specified glaucoma Dr. Melo Personal history of colonic polyps Pulmonary emphysema ([facility]) 12/31/2016 Sebaceous cyst Situational depression 07/03/2016 Squamous cell carcinoma 04/04/2015 Left cheek Venous insufficiency of both lower extremities 07/01/2014 Previous Surgical History PAST SURGICAL HISTORY Procedure Laterality Date COLONOSCOPY 12/29/2017 adenomatous polyp, repeat in 5 years COLONOSCOPY FLX DX W/COLLJ SPEC WHEN PFRMD 08/17/2007 EXCISION TUMOR SOFT TISSUE THIGH/KNEE SUBQ <3CM REMOVED FATTY TUMORS FROM UNDER EXCISION TUMOR SOFT TISSUE THIGH/KNEE SUBQ <3CM RMOVED FATTY TUMORE INT REPAIR SCALP,JAYCOB,TRUNK 7.6-12.5CM 02/24/2007 back LAPS SURG CHOLECYSTECTOMY W/CHOLANGIOGRAPHY 09/07/2007 MRI 02/22/2014 [facility] - mri - right knee PAST SURGICAL HISTORY OF N/A 09/09/2017 Abdominal aneurysm aortic repair PAST SURGICAL HISTORY OF Right 2013 arthroscopic knee surgery PAST SURGICAL HISTORY OF Left excision of knee bursa REM LESION TRUNK,ARM,LEG > 4.0CM 02/24/2007 back REM LESION TRUNK,ARM,LEG > 4.0CM REVISE MEDIAN N/CARPAL TUNNEL SURG Bilateral 1990s SURGERY (GENERAL SURGERY) CONSULT 04/25/2015 Invasive squamous cell carcincoma see scanned documents Family History FAMILY HISTORY Problem Relation Age of Onset Emphysema Mother Arthritis Sister Hypertension Maternal Grandmother No Known Problems Son No Known Problems Son No Known Problems Son No Known Problems Son No Known Problems Son Patient Allergies ALLERGIES Allergen Reactions Lipitor [Atorvastat* Intolerance Medical Tape [Other] Itching Rosuvastatin Calcium Intolerance Wdeemiq-Ifv-Dis Red* Myalgia Current Medications Current Outpatient Medications on File Prior to Visit Medication Sig primidone (MYSOLINE) 250 mg tablet Take 1 tablet by mouth once daily. FLUoxetine (PROZAC) 20 mg capsule Take 1 capsule by mouth once daily. amLODIPine (NORVASC) 5 mg tablet TAKE 1/2 TABLET BY MOUTH ONCE DAILY omeprazole (PRILOSEC) 20 mg capsule TAKE 1 CAPSULE BY MOUTH EVERY DAY IN THE MORNING carvedilol (COREG) 3.125 mg tablet Take 1 tablet by mouth twice daily. tamsulosin (FLOMAX) 0.4 mg TAKE 1 CAPSULE BY MOUTH EVERY DAY evolocumab (REPATHA SURECLICK) 140 mg/mL pen injector Inject 140 mg subcutaneously every 2 weeks. acetaminophen (TYLENOL) 325 mg tablet Take 3 tablets by mouth every 6 hours as needed for pain. fluticasone (FLONASE) 50 mcg/actuation nasal spray Use 2 Sprays in each nostril once daily. Rinse mouth after use. ELIQUIS 5 mg tab(s) Take 1 tablet by mouth twice daily. finasteride (PROSCAR) 5 mg tablet Take 1 tablet by mouth once daily. brimonidine (ALPHAGAN) 0.2 % ophthalmic solution Use 1 Drop in both eyes twice daily. timolol maleate (TIMOPTIC) 0.5 % ophthalmic solution Use 1 Drop in both eyes twice daily. aspirin, enteric coated (ECOTRIN LOW STRENGTH) 81 mg EC tablet Take 1 tablet by mouth once daily. No current facility-administered medications on file prior to visit. Social History Social History Tobacco Use Smoking status: Former Smoker Packs/day: 1.00 Years: 30.00 Pack years: 30.00 Types: Cigarettes Quit date: 06/02/1988 Years since quittin.5 Smokeless tobacco: Current User Types: Chew Tobacco comment: Brief relaps after of spouse. Substance Use Topics Alcohol use: Yes Comment: Seldom Drug use: No Review of Symptoms REVIEW OF SYSTEMS See HPI EXAM: BP 128/64 Pulse 75 Resp 18 Wt 108.7 kg (239 lb 9.6 oz) SpO2 98% BMI 31.61 kg/m General Appearance: Well appearing, alert, in no acute distress, well-hydrated, well nourished.. Skin: Skin color, texture, turgor normal, no suspicious rashes or lesions. Shoulder: Location: Right. Redness: No. Warmth: No. Tenderness to palpation: No. Swelling: No. Range of motion: Limited 90 degrees abduction on right. Empty can test: Positive Batista: positive. Health Maintenance List HEPATITIS C SCREENING Never done SHINGRIX VACCINE(1 of 2) Never done ADVANCE DIRECTIVE DISCUSSION Never done PNEUMOCOCCAL: 65+(2 - PPSV23 or PCV20) due on 04/25/2022 INFLUENZA(1) due on 01/31/2022 ANNUAL PCP TEAM CHRONIC DISEASE VISIT due on 10/23/2022 BP CONTROLLED (<130/80) due on 10/23/2022 DIABETES SCREEN due on 07/17/2024 DTAP,TDAP,TD(3 - Td or Tdap) due on 06/15/2029 SPIROMETRY Completed COVID-19 VACCINE Completed ASSESSMENT/PLAN: 1. Acute pain of right shoulder - ICD9: 719.41, ICD10: M25.511 (primary diagnosis) Unchanged after fall/injury. Suspect rotator cuff tear. Encouraged him to follow up with PT and will place referral to ortho as requested. Discussed ice/heat, OTC analgesics for pain. - CONSULT TO ORTHOPAEDICS 2. Limited range of motion (ROM) of shoulder - ICD9: 719.51, ICD10: M25.619 - CONSULT TO ORTHOPAEDICS Kanchan Ge MD documented in this encounterK[facility]05-25-2022 Miscellaneous Notes* Telephone Encounter - Tamela Bradley Ma - 10/24/2021 10:18 AM EDT Message below left on pt identified VM. Tamela Bradley Ma * Telephone Encounter - Tamela Bradley Ma - 10/24/2021 10:16 AM EDT ----- Message from Kanchan Ge MD sent at 10/24/2021 8:39 AM EDT ----- Anemia has resolved. Total cholesterol and LDL are significantly improved with Repatha. Continue current regimen and work on healthy diet. documented in this encounterK[facility]05-24-2022 Miscellaneous Notes* Telephone Encounter - Tamela Bradley Ma - 10/23/2021 3:43 PM EDT Pt notified and voiced understanding. Tamela Bradley Ma * Telephone Encounter - Tamela Bradley Ma - 10/23/2021 3:42 PM EDT ----- Message from Kanchan Ge MD sent at 10/23/2021 3:38 PM EDT ----- Xray of the right shoulder negative for fracture or dislocation. Continue with ice, tylenol, home exercises and PT referral as discussed. [facility] History of Present illness Narrative* Kanchan eG MD - 10/23/2021 2:19 PM EDT Chief Complaint Patient presents with: Follow Up Refill Request HPI Vicki Randle is a 76 year old male who presents here today for Above Complaints.. Ribs no longer bothering him and breathing normally since his pneumothorax and rib fractures 3 months ago. Since July, he did have an episode where he stumbled in the kitchen and landed on his right elbow on the kitchen counter. Scraped up his elbow and did have good amount of bleeding as he chen Eliquis. States that he was able to get the bleeding to stop with band aids at home and is healing well. Denies pain in his elbow, but has had pain in his right shoulder with limited ROM around the time of this injury. Pain located on top of his shoulder. Not treating with anything OTC. Not sureif he would want surgery if it was his rotator cuff. Taking Zetia for hyperlipidemia without side effects. States that most of the time he does well with low cholesterol diet. Has cut out alfonso and sausage. States that his essential tremor is not well controlled on his Primidone 75 mg BID. Still has had time eating and writing. Has not had any side effects on this dosage. Depression symptoms well controlled on 20 mg Prozac without side effects. Denies SI/HI. BPH: with flomax and Proscar, patient is not having any nocturia. Denies straining to urinate, weakstream,hematuria, urinary frequency. Discussed 2nd COVID booster today which he would like to get while here. Past medical history, appointments, medications, allergies reviewed. Previous Medical History PAST MEDICAL HISTORY Diagnosis Date AAA (abdominal aortic aneurysm) ([facility]) 02/06/2012 01/10/17: CT abd 4.8 cm. s/p aortobiliac stent.-Dr. Johan Berg Actinic keratosis On [place], Dr. Dudley Acute deep vein thrombosis (DVT) of femoral vein of left lower extremity ([facility]) 03/16/2018 02/19/18--on Eliquis Basal cell carcinoma 2020 left cheek Benign essential tremor Benign hypertension 07/13/2015 Bruit right carotid artery Chewing tobacco use Class 1 obesity due to excess calories without serious comorbidity with body mass index (BMI) of 33.0 to 33.9 in adult Esophageal reflux Gastroesophageal reflux Facet arthritis of lumbar region 06/27/2014 History of carpal tunnel surgery 1990s Hypertrophy of prostate without urinary obstruction and other lower urinary tract symptoms (LUTS) Hypertrophy of the prostate w/o obstruction Left leg DVT ([facility]) 02/19/2018 Mixed hyperlipidemia Hyperlipidemia Neoplasm of skin of hand left cheek, upper arm, ear, forearm, nose Nodule of right lung 04/17/2012 01/08/2013: CT chest 4 mm, unchanging nodule==suspect benign Other specified glaucoma Dr. Melo Personal history of colonic polyps Pulmonary emphysema ([facility]) 12/31/2016 Sebaceous cyst Situational depression 07/03/2016 Squamous cell carcinoma 04/04/2015 Left cheek Venous insufficiency of both lower extremities 07/01/2014 Previous Surgical History PAST SURGICAL HISTORY Procedure Laterality Date COLONOSCOPY 12/29/2017 adenomatous polyp, repeat in 5 years COLONOSCOPY FLX DX W/COLLJ SPEC WHEN PFRMD 08/17/2007 EXCISION TUMOR SOFT TISSUE THIGH/KNEE SUBQ <3CM REMOVED FATTY TUMORS FROM UNDER EXCISION TUMOR SOFT TISSUE THIGH/KNEE SUBQ <3CM RMOVED FATTY TUMORE INT REPAIR SCALP,JAYCOB,TRUNK 7.6-12.5CM 02/24/2007 back LAPS SURG CHOLECYSTECTOMY W/CHOLANGIOGRAPHY 09/07/2007 MRI 02/22/2014 [facility] - mri - right knee PAST SURGICAL HISTORY OF N/A 09/09/2017 Abdominal aneurysm aortic repair PAST SURGICAL HISTORY OF Right 2013 arthroscopic knee surgery PAST SURGICAL HISTORY OF Left excision of knee bursa REM LESION TRUNK,ARM,LEG > 4.0CM 02/24/2007 back REM LESION TRUNK,ARM,LEG > 4.0CM REVISE MEDIAN N/CARPAL TUNNEL SURG Bilateral 1990s SURGERY (GENERAL SURGERY) CONSULT 04/25/2015 Invasive squamous cell carcincoma see scanned documents Family History FAMILY HISTORY Problem Relation Age of Onset Emphysema Mother Arthritis Sister Hypertension Maternal Grandmother No Known Problems Son No Known Problems Son No Known Problems Son No Known Problems Son No Known Problems Son Patient Allergies ALLERGIES Allergen Reactions Lipitor [Atorvastat* Intolerance Medical Tape [Other] Itching Rosuvastatin Calcium Intolerance Bkgyicv-Clg-Wvv Red* Myalgia Current Medications Current Outpatient Medications on File Prior to Visit Medication Sig amLODIPine (NORVASC) 5 mg tablet TAKE 1/2 TABLET BY MOUTH ONCE DAILY omeprazole (PRILOSEC) 20 mg capsule TAKE 1 CAPSULE BY MOUTH EVERY DAY IN THE MORNING carvedilol (COREG) 3.125 mg tablet Take 1 tablet by mouth twice daily. tamsulosin (FLOMAX) 0.4 mg TAKE 1 CAPSULE BY MOUTH EVERY DAY evolocumab (REPATHA ARISTEO) 140 mg/mL pen injector Inject 140 mg subcutaneously every 2 weeks. fluticasone (FLONASE) 50 mcg/actuation nasal spray Use 2 Sprays in each nostril once daily. Rinse mouth after use. ELIQUIS 5 mg tab(s) Take 1 tablet by mouth twice daily. finasteride (PROSCAR) 5 mg tablet Take 1 tablet by mouth once daily. brimonidine (ALPHAGAN) 0.2 % ophthalmic solution Use 1 Drop in both eyes twice daily. timolol maleate (TIMOPTIC) 0.5 % ophthalmic solution Use 1 Drop in both eyes twice daily. aspirin, enteric coated (ECOTRIN LOW STRENGTH) 81 mg EC tablet Take 1 tablet by mouth once daily. acetaminophen (TYLENOL) 325 mg tablet Take 3 tablets by mouth every 6 hours as needed for pain. (Patient not taking: Reported on 07/20/2021 ) FLUoxetine (PROZAC) 20 mg capsule Take 1 capsule by mouth once daily. primidone (MYSOLINE) 50 mg tablet Take 1.5 tablets by mouth twice daily. No current facility-administered medications on file prior to visit. Social History Social History Tobacco Use Smoking status: Former Smoker Packs/day: 1.00 Years: 30.00 Pack years: 30.00 Types: Cigarettes Quit date: 06/02/1988 Years since quittin.4 Smokeless tobacco: Current User Types: Chew Tobacco comment: Brief relaps after of spouse. Substance Use Topics Alcohol use: Yes Comment: Seldom Drug use: No Review of Symptoms REVIEW OF SYSTEMS GENERAL: No weight loss, malaise or fevers RESPIRATORY: Negative for cough, hemoptysis, wheezing, COPD, dyspnea or shortness of breath CARDIOVASCULAR: Negative for chest pain, leg swelling, hypertension, CHF or palpitations GI: No nausea, vomiting, or diarrhea SKIN: Negative for lesions, rash, and itching EXAM: BP 116/68 Pulse 72 Resp 16 Wt 111 kg (244 lb 12.8 oz) SpO2 97% BMI 32.30 kg/m General Appearance: Well appearing, alert, in no acute distress, well-hydrated, well nourished.. Skin: Skin color, texture, turgor normal, no suspicious rashes or lesions. Lungs: Lungs clear to auscultation. No wheezing, rhonchi, rales.. Heart: RRR without murmur, gallop, or rubs. No ectopy. Abdomen: Normal abdominal exam, Abdomen soft, non-tender. Bowel sounds normal. No masses, organomegaly. 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 Good capillary refill. . Shoulder: Location: Right. Redness: No. Warmth: No. Tenderness to palpation: No. Swelling: No. Range of motion: Limited 90 degrees abduction on right. Empty can test: Positive Batista: positive. Health Maintenance List HEPATITIS C SCREENING Never done SHINGRIX VACCINE(1 of 2) Never done DTAP,TDAP,TD(2 - Td or Tdap) due on 06/03/2016 PNEUMOCOCCAL: 65+(2 - PPSV23 or PCV20) due on 12/31/2017 ADVANCE DIRECTIVE DISCUSSION Never done COVID-19 VACCINE(4 - Booster) due on 08/11/2021 ANNUAL PCP TEAM CHRONIC DISEASE VISIT due on 07/20/2022 BP CONTROLLED (<130/80) due on 07/20/2022 DIABETES SCREEN due on 07/17/2024 SPIROMETRY Completed INFLUENZA Completed Data reviewed Component Latest Ref Rng & Units 10/19/2020 04/23/2021 07/16/2021 07/17/2021 WBC 3.70 - 11.00 k/uL 4.34 6.18 4.84 RBC 4.20 - 6.00 m/uL 4.61 4.20 3.73 (L) Hemoglobin 13.0 - 17.0 g/dL 14.0 12.9 (L) 11.5 (L) Hematocrit 39.0 - 51.0 % 45.1 39.8 36.2 (L) MCV 80.0 - 100.0 fL 97.8 94.8 97.1 MCH 26.0 - 34.0 pg 30.4 30.7 30.8 MCHC 30.5 - 36.0 g/dL 31.0 32.4 31.8 RDW-CV 11.5 - 15.0 % 14.6 14.1 13.8 Platelet Count 150 - 400 k/uL 186 208 166 MPV 9.0 - 12.7 fL 10.2 9.7 10.0 Neut% % 71.7 68.0 Abs Neut (ANC) 1.45 - 7.50 k/uL 4.44 3.29 Lymph% % 19.3 22.5 Abs Lymph 1.00 - 4.00 k/uL 1.19 1.09 Seward% % 6.8 7.0 Abs [place]ard <0.87 k/uL 0.42 0.34 Eosin% % 1.5 1.9 Abs Eosin <0.46 k/uL 0.09 0.09 Baso% % 0.2 0.2 Abs Baso <0.11 k/uL <0.03 <0.03 Immature Gran % % 0.5 0.4 IMMATURE GRANS (ABS) <0.10 k/uL 0.03 <0.03 NRBC 0.0 /100 WBC 0.0 0.0 Absolute nRBC <0.01 k/uL <0.01 <0.01 <0.01 DTYPE Auto Auto Protein, Total 6.3 - 8.0 g/dL 7.1 Albumin 3.9 - 4.9 g/dL 4.0 Calcium 8.5 - 10.2 mg/dL 8.6 8.3 (L) 8.3 (L) Bilirubin, Total 0.2 - 1.3 mg/dL 0.3 Alkaline Phosphatase 38 - 113 U/L 105 AST 14 - 40 U/L 24 Glucose 74 - 99 mg/dL 83 107 (H) 114 (H) BUN 9 - 24 mg/dL 8 (L) 13 12 Creatinine 0.73 - 1.22 mg/dL 0.82 0.87 0.95 Sodium 136 - 144 mmol/L 141 136 137 Potassium 3.7 - 5.1 mmol/L 4.1 3.7 Chloride 97 - 105 mmol/L 105 100 103 CO2 22 - 30 mmol/L 23 24 26 Anion Gap 9 - 18 mmol/L 13 12 8 (L) ALT 10 - 54 U/L 14 eGFR- >60 >60 >60 eGFR-All Other Races >60 >60 >60 Cholesterol, Total <200 mg/dL 234 (H) Triglyceride <150 mg/dL 147 HDL Cholesterol >39 mg/dL 60 LDL Cholesterol <100 mg/dL 145 (H) Non HDL Cholesterol <130 mg/dL 174 (H) Fasting Time hrs 12 VLDL Cholesterol <30 mg/dL 29 TC:HDL Ratio <5.10 3.90 LDL:HDL Ratio <2.54 2.42 Total Cholesterol, Nonfasting <200 mg/dL 269 (H) Triglycerides, Nonfasting <150 mg/dL 264 (H) HDL Cholesterol, Nonfasting >39 mg/dL 45 LDL Cholesterol, Nonfasting <100 mg/dL 171 (H) Non HDL Cholesterol, Nonfasting <130 mg/dL 224 (H) VLDL Cholesterol, Nonfasting <30 mg/dL 53 (H) Total Chol/HDL Ratio, Nonfasting <5.10 mg/dL 5.98 (H) LDL/HDL Ratio, Nonfasting <2.54 mg/dL 3.80 (H) ASSESSMENT/PLAN: 1. Fall in home, subsequent encounter - ICD9: V58.89, E888.9, ICD10: W19.XXXD, Y92.009 (primary diagnosis) Ribs healing well from fall 3 months ago. Stumbled 2-3 weeks ago with new pain in his right shoulder with likely rotator cuff tear. Will refer to PT for unsteady gait and shoulder pain as patient is not interested in surgery at this time. Recommended use of walker/cane at home to help with stability. Red flags for re-assessment reviewed with patient in detail. - CONSULT TO PHYSICAL THERAPY 2. Acute pain of right shoulder - ICD9: 719.41, ICD10: M25.511 Obtain xray. See above. - CONSULT TO PHYSICAL THERAPY - XR SHOULDER GENERAL 3V OR MORE AP/TRUE AP/OTHER RIGHT 3. Unsteady gait when walking - ICD9: 781.2, ICD10: R26.81 4. Situational depression - ICD9: 309.0, ICD10: F43.21 Controlled on Prozac. - FLUOXETINE 20 MG CAPSULE 5. Benign hypertension - ICD9: 401.1, ICD10: I10 - good control - Continue current medication(s) - Encouraged dietary sodium restriction/DASH diet - Recommended regular aerobic exercise. - Reviewed risks of HTN and principles of treatment - Goal of BP <140/90 6. Hyperlipidemia with target LDL less than 100 - ICD9: 272.4, ICD10: E78.5 - to be determined upon return of lab results - Continue current medication. - Encouraged following a low fat, low cholesterol diet. - Discussed the benefits of regular aerobic exercise and weight loss. - CBC + DIFF - LIPID PANEL, NONFASTING 7. Intention tremor - ICD9: 333.1, ICD10: G25.2 Uncontrolled. Increase primidone and call if not improving in the next 2-4 weeks. - PRIMIDONE 250 MG TABLET 8. Gastroesophageal reflux disease, unspecified whether esophagitis present - ICD9: 530.81, ICD10: K21.9 - Continue treatment with Prilosec 20 mg QD 9. Non-seasonal allergic rhinitis, unspecified trigger - ICD9: 477.8, ICD10: J30.89 Continue flonase PRN along with OTC antihistamines. 10. History of DVT of lower extremity - ICD9: V12.51, ICD10: Z86.718 On chronic anticoagulation. If PT not helping with unsteady gait, may need to consider stopping Eliquis. 11. Chronic anticoagulation - ICD9: V58.61, ICD10: Z79.01 12. Need for COVID-19 vaccine - ICD9: V04.89, ICD10: Z23 - PFIZER-BIONTECH COVID-19 VACCINE, AGE 12+ YR (AN TOP) Kanchan Ge MD documented in [facility] History of Present illness Narrative* Cathy Dallas RN - 10/16/2021 9:39 AM EDT [facility] Enrollment Provider Action/FYI: h/o Emphysema Unable to reach patient ,left VM Patient referred by: [facility] [place] Contact made with patient: No - 3rd attempt to reach patient, left another message: Hi my name is Cathy Dallas RN and I am calling [facility] the [facility] on behalf of your PCP, Kanchan Ge MD. We are excited to share with you a new program to help you manage your health. Please call me back at [phone]. I hope you can take the time to speak with me. (Keep encounter open for additional two business days in case patient calls back. Close encounter if no response by end of second business day) Closing: Could not reach the patient after x3 attempted outreaches. END OUTREACH documented in this encounterK[facility]05[facility]13-[facility]22 Miscellaneous Notes* Telephone Encounter - Rose Oseguera LPN - 10/12/2021 10:35 AM EDT Patient phones requesting refills as follows: Pending Prescriptions Disp Refills AMLODIPINE 5 MG TABLET 45 tablet 3 Sig: TAKE 1/2 TABLET BY MOUTH ONCE DAILY CASH: Yes OMEPRAZOLE 20 MG CAPSULE,DELAYED RELEASE 90 capsule 3 Sig: TAKE 1 CAPSULE BY MOUTH EVERY DAY IN THE MORNING CASH: Yes BRY-07/20/21 Labs-04/23/21 NOV-10/23/21 Please review and advise. Rose Oseguera LPN documented in this encounterK[facility]04-25-2022 Miscellaneous Notes* Telephone Encounter - PADMINI Marquis - 09/24/2021 2:13 PM EDT Last OV 07/20/2021 Appointment scheduled for 10/23/2021 Please advise. Thank you. * Telephone Encounter - Caitlyn Sorensen - 09/24/2021 8:29 AM EDT Patient has been identified by name and date of : Yes Pending Prescriptions Disp Refills CARVEDILOL 3.125 MG TABLET 180 tablet 1 Sig: Take 1 tablet by mouth twice daily. CASH: No RX INSTRUCTIONS: Patient aware RX will be sent to pharmacy. No need to notify patient. Caitlyn Sparks Pss documented in this encounterK[facility]02-18-[facility] History of Present illness Narrative* Helene Bowers RT(R) - 07/20/2021 2:30 PM EST Radiology Service Progress Note PATIENT NAME: Vicki Randle DATE OF SERVICE: July 20, 2021 TIME: 2:35 PM PATIENT IDENTITY VERIFICATION COMPLETED USING TWO (2) IDENTIFIERS: Name and Date of confirmedby patient verbally. FALL SCREENING: Has the patient had 2 falls in the last year or 1 fall with injury or currently using an Ambulatory Assistive Device (Walker, Cane, Wheelchair, Crutches, etc.)? No PATIENT GENDER DATA: Male PATIENT RELEVANT IMPLANT DATA REVIEWED: Not Applicable RADIOLOGY DEPARTMENT: General X-ray: Exam(s) Completed: Chest X-Ray PERIPHERAL IV DATA: Not applicable SIGNED BY: RT Graeme(R) July 20, 2021 2:35 PM documented in this encounterK[facility]02-14-[facility]22 History of Past illness Narrative* Problem Noted Date Resolved Date Traumatic pneumothorax 07/16/2021 2 Acute deep vein thrombosis ( DVT) of femoral vein of left lower extremity 03/16/2018 12/02/2018 Overview: 02/19/18--on Eliquis Closed fracture of one rib of left side 03/12/20 17 07/12/2017 Prostatitis 01/08/2012 04/13/2014 Bladder neck obstruction 11/26/2007 019 Cellulitis and abscess of trunk 02/05/2007 04/13/2014 documented as of this encounter (statuses as of 09/24/2021) [facility] Past illness Narrative* Problem Noted Date Resolved Date Traumatic pneumothorax 07/16/2021 2 Acute deep vein thrombosis ( DVT) of femoral vein of left lower extremity 03/16/2018 12/02/2018 Overview: 02/19/18--on Eliquis Closed fracture of one rib of left side 03/12/20 17 07/12/2017 Prostatitis 01/08/2012 04/13/2014 Bladder neck obstruction 11/26/2007 019 Cellulitis and abscess of trunk 02/05/2007 04/13/2014 documented as of this encounter (statuses as of 10/12/2021) [facility] Narrative* Problem Noted Date Resolved Date Traumatic pneumothorax 07/16/2021 2 Acute deep vein thrombosis ( DVT) of femoral vein of left lower extremity 03/16/2018 12/02/2018 Overview: 02/19/18--on Eliquis Closed fracture of one rib of left side 03/12/20 17 07/12/2017 Prostatitis 01/08/2012 04/13/2014 Bladder neck obstruction 11/26/20072 019 Cellulitis and abscess of trunk 02/05/2007 04/13/2014 documented as of this encounter (statuses as of 10/16/2021) [facility] Narrative* Problem Noted Date Resolved Date Traumatic pneumothorax 07/16/2021 2 Acute deep vein thrombosis ( DVT) of femoral vein of left lower extremity 03/16/2018 12/02/2018 Overview: 02/19/18--on Eliquis Closed fracture of one rib of left side 03/12/20 17 07/12/2017 Prostatitis 01/08/2012 04/13/2014 Bladder neck obstruction 11/26/2007 019 Cellulitis and abscess of trunk 02/05/2007 04/13/2014 documented as of this encounter (statuses as of 10/23/2021) [facility] Narrative* Problem Noted Date Resolved Date Traumatic pneumothorax 07/16/2021 2 Acute deep vein thrombosis ( DVT) of femoral vein of left lower extremity 03/16/2018 12/02/2018 Overview: 02/19/18--on Eliquis Closed fracture of one rib of left side 03/12/20 17 07/12/2017 Prostatitis 01/08/2012 04/13/2014 Bladder neck obstruction 11/26/20072 019 Cellulitis and abscess of trunk 02/05/2007 04/13/2014 documented as of this encounter (statuses as of 10/24/2021) [facility] Narrative* Problem Noted Date Resolved Date Traumatic pneumothorax 07/16/2021 2 Acute deep vein thrombosis ( DVT) of femoral vein of left lower extremity 03/16/2018 12/02/2018 Overview: 02/19/18--on Eliquis Closed fracture of one rib of left side 03/12/20 17 07/12/2017 Prostatitis 01/08/2012 04/13/2014 Bladder neck obstruction 11/26/200712/02/2 019 Cellulitis and abscess of trunk 02/05/2007 04/13/2014 documented as of this encounter (statuses as of 10/24/2021) [facility] Narrative* Problem Noted Date Resolved Date Traumatic pneumothorax 07/16/2021 2 Acute deep vein thrombosis ( DVT) of femoral vein of left lower extremity 03/16/2018 12/02/2018 Overview: 02/19/18--on Eliquis Closed fracture of one rib of left side 03/12/20 17 07/12/2017 Prostatitis 01/08/2012 04/13/2014 Bladder neck obstruction 11/26/2007 019 Cellulitis and abscess of trunk 02/05/2007 04/13/2014 documented as of this encounter (statuses as of 12/11/2021) [facility] Narrative* Problem Noted Date Resolved Date Traumatic pneumothorax 07/16/2021 2 Acute deep vein thrombosis ( DVT) of femoral vein of left lower extremity 03/16/2018 12/02/2018 Overview: 02/19/18--on Eliquis Closed fracture of one rib of left side 03/12/20 17 07/12/2017 Prostatitis 01/08/2012 04/13/2014 Bladder neck obstruction 11/26/2007 019 Cellulitis and abscess of trunk 02/05/2007 04/13/2014 documented as of this encounter (statuses as of 12/28/2021) [facility] Narrative* Problem Noted Date Resolved Date Traumatic pneumothorax 07/16/2021 2 Acute deep vein thrombosis ( DVT) of femoral vein of left lower extremity 03/16/2018 12/02/2018 Overview: 02/19/18--on Eliquis Closed fracture of one rib of left side 03/12/20 17 07/12/2017 Prostatitis 01/08/2012 04/13/2014 Bladder neck obstruction 11/26/2007 019 Cellulitis and abscess of trunk 02/05/2007 04/13/2014 documented as of this encounter (statuses as of 01/11/2022) [facility] Narrative* Problem Noted Date Resolved Date Traumatic pneumothorax 07/16/2021 2 Acute deep vein thrombosis ( DVT) of femoral vein of left lower extremity 03/16/2018 12/02/2018 Overview: 02/19/18--on Eliquis Closed fracture of one rib of left side 03/12/20 17 07/12/2017 Prostatitis 01/08/2012 04/13/2014 Bladder neck obstruction 11/26/2007 019 Cellulitis and abscess of trunk 02/05/2007 04/13/2014 documented as of this encounter (statuses as of 02/15/2022) [facility] Narrative* Problem Noted Date Resolved Date Traumatic pneumothorax 07/16/2021 2 Acute deep vein thrombosis ( DVT) of femoral vein of left lower extremity 03/16/2018 12/02/2018 Overview: 02/19/18--on Eliquis Closed fracture of one rib of left side 03/12/20 17 07/12/2017 Prostatitis 01/08/2012 04/13/2014 Bladder neck obstruction 11/26/2007 019 Cellulitis and abscess of trunk 02/05/2007 04/13/2014 documented as of this encounter (statuses as of 02/22/2022) [facility] Narrative* Problem Noted Date Resolved Date Traumatic pneumothorax 07/16/2021 2 Acute deep vein thrombosis ( DVT) of femoral vein of left lower extremity 03/16/2018 12/02/2018 Overview: 02/19/18--on Eliquis Closed fracture of one rib of left side 03/12/20 17 07/12/2017 Prostatitis 01/08/2012 04/13/2014 Bladder neck obstruction 11/26/20072 019 Cellulitis and abscess of trunk 02/05/2007 04/13/2014 documented as of this encounter (statuses as of 03/05/2022) [facility] Narrative* Problem Noted Date Resolved Date Traumatic pneumothorax 07/16/2021 2 Acute deep vein thrombosis ( DVT) of femoral vein of left lower extremity 03/16/2018 12/02/2018 Overview: 02/19/18--on Eliquis Closed fracture of one rib of left side 03/12/20 17 07/12/2017 Prostatitis 01/08/2012 04/13/2014 Bladder neck obstruction 11/26/20072 019 Cellulitis and abscess of trunk 02/05/2007 04/13/2014 documented as of this encounter (statuses as of 03/19/2022) [facility] Narrative* Problem Noted Date Resolved Date Traumatic pneumothorax 07/16/2021 2 Acute deep vein thrombosis ( DVT) of femoral vein of left lower extremity 03/16/2018 12/02/2018 Overview: 02/19/18--on Eliquis Closed fracture of one rib of left side 03/12/20 17 07/12/2017 Prostatitis 01/08/2012 04/13/2014 Bladder neck obstruction 11/26/20072 019 Cellulitis and abscess of trunk 02/05/2007 04/13/2014 documented as of this encounter (statuses as of 03/26/2022) [facility] Narrative* Problem Noted Date Resolved Date Traumatic pneumothorax 07/16/2021 2 Acute deep vein thrombosis ( DVT) of femoral vein of left lower extremity 03/16/2018 12/02/2018 Overview: 02/19/18--on Eliquis Closed fracture of one rib of left side 03/12/20 17 07/12/2017 Prostatitis 01/08/2012 04/13/2014 Bladder neck obstruction 11/26/20072 019 Cellulitis and abscess of trunk 02/05/2007 04/13/2014 documented as of this encounter (statuses as of 03/27/2022) [facility] Narrative* Problem Noted Date Resolved Date Traumatic pneumothorax 07/16/2021 2 Acute deep vein thrombosis ( DVT) of femoral vein of left lower extremity 03/16/2018 12/02/2018 Overview: 02/19/18--on Eliquis Closed fracture of one rib of left side 03/12/20 17 07/12/2017 Prostatitis 01/08/2012 04/13/2014 Bladder neck obstruction 11/26/20072 019 Cellulitis and abscess of trunk 02/05/2007 04/13/2014 documented as of this encounter (statuses as of 04/05/2022) [facility] Narrative* Problem Noted Date Resolved Date Traumatic pneumothorax 07/16/2021 2 Acute deep vein thrombosis ( DVT) of femoral vein of left lower extremity 03/16/2018 12/02/2018 Overview: 02/19/18--on Eliquis Closed fracture of one rib of left side 03/12/20 17 07/12/2017 Prostatitis 01/08/2012 04/13/2014 Bladder neck obstruction 11/26/20072 019 Cellulitis and abscess of trunk 02/05/2007 04/13/2014 documented as of this encounter (statuses as of 04/29/2022) [facility] Narrative* Problem Noted Date Resolved Date Traumatic pneumothorax 07/16/2021 2 Acute deep vein thrombosis ( DVT) of femoral vein of left lower extremity 03/16/2018 12/02/2018 Overview: 02/19/18--on [facility] Closed fracture of one rib of left side 03/12/20 17 07/12/2017 Prostatitis 01/08/2012 04/13/2014 Bladder neck obstruction 11/26/20072 019 Cellulitis and abscess of trunk 02/05/2007 04/13/2014 documented as of this encounter (statuses as of 05/03/2022) [facility] History of Past illness Narrative* Problem Noted Date Resolved Date Traumatic pneumothorax 07/16/2021 2 Acute deep vein thrombosis ( DVT) of femoral vein of left lower extremity 03/16/2018 12/02/2018 Overview: 02/19/18--on [facility] Closed fracture of one rib of left side 03/12/20 17 07/12/2017 Prostatitis 01/08/2012 04/13/2014 Bladder neck obstruction 11/26/2007 019 Cellulitis and abscess of trunk 02/05/2007 04/13/2014 documented as of this encounter (statuses as of 06/06/2022) [facility] History of Past illness Narrative* Problem Noted Date Resolved Date Traumatic pneumothorax 07/16/2021 2 Acute deep vein thrombosis ( DVT) of femoral vein of left lower extremity 03/16/2018 12/02/2018 Overview: 02/19/18--on [facility] Closed fracture of one rib of left side 03/12/20 17 07/12/2017 Prostatitis 01/08/2012 04/13/2014 Bladder neck obstruction 11/26/2007 019 Cellulitis and abscess of trunk 02/05/2007 04/13/2014 documented as of this encounter (statuses as of 06/07/2022) [facility] History of Past illness Narrative* Problem Noted Date Resolved Date Traumatic pneumothorax 07/16/2021 2 Acute deep vein thrombosis ( DVT) of femoral vein of left lower extremity 03/16/2018 12/02/2018 Overview: 02/19/18--on [facility] Closed fracture of one rib of left side 03/12/20 17 07/12/2017 Prostatitis 01/08/2012 04/13/2014 Bladder neck obstruction 11/26/2007 019 Cellulitis and abscess of trunk 02/05/2007 04/13/2014 documented as of this encounter (statuses as of 07/05/2022) [facility] History of Past illness Narrative* Problem Noted Date Resolved Date Traumatic pneumothorax 07/16/2021 2 Acute deep vein thrombosis ( DVT) of femoral vein of left lower extremity 03/16/2018 12/02/2018 Overview: 02/19/18--on [facility] Closed fracture of one rib of left side 03/12/20 17 07/12/2017 Prostatitis 01/08/2012 04/13/2014 Bladder neck obstruction 11/26/2007 019 Cellulitis and abscess of trunk 02/05/2007 04/13/2014 documented as of this encounter (statuses as of 07/08/2022) [facility] History of Past illness Narrative* Problem Noted Date Resolved Date Traumatic pneumothorax 07/16/2021 2 Acute deep vein thrombosis ( DVT) of femoral vein of left lower extremity 03/16/2018 12/02/2018 Overview: 02/19/18--on [facility] Closed fracture of one rib of left side 03/12/20 17 07/12/2017 Prostatitis 01/08/2012 04/13/2014 Bladder neck obstruction 11/26/2007 019 Cellulitis and abscess of trunk 02/05/2007 04/13/2014 documented as of this encounter (statuses as of 07/23/2022) [facility] History of Past illness Narrative* Problem Noted Date Resolved Date Traumatic pneumothorax 07/16/2021 2 Acute deep vein thrombosis ( DVT) of femoral vein of left lower extremity 03/16/2018 12/02/2018 Overview: 02/19/18--on [facility] Closed fracture of one rib of left side 03/12/20 17 07/12/2017 Prostatitis 01/08/2012 04/13/2014 Bladder neck obstruction 11/26/2007 019 Cellulitis and abscess of trunk 02/05/2007 04/13/2014 documented as of this encounter (statuses as of 08/27/2022) [facility] History of Past illness Narrative* Problem Noted Date Resolved Date Traumatic pneumothorax 07/16/2021 2 Acute deep vein thrombosis ( DVT) of femoral vein of left lower extremity 03/16/2018 12/02/2018 Overview: 02/19/18--on [facility] Closed fracture of one rib of left side 03/12/20 17 07/12/2017 Prostatitis 01/08/2012 04/13/2014 Bladder neck obstruction 11/26/2007 019 Cellulitis and abscess of trunk 02/05/2007 04/13/2014 documented as of this encounter (statuses as of 09/16/2022) [facility] History of Past illness Narrative* Problem Noted Date Resolved Date Traumatic pneumothorax 07/16/2021 Acute deep vein thrombosis ( DVT) of femoral vein of left lower extremity 03/16/2018 12/02/2018 Overview: 02/19/18--on [facility] Closed fracture of one rib of left side 03/12/2007/12/2017 Prostatitis 01/08/2012 04/13/2014 Bladder neck obstruction 11/26/2007 019 Cellulitis and abscess of trunk 02/05/2007 04/13/2014 documented as of this encounter (statuses as of 10/02/2022) [facility] History of Past illness Narrative* Problem Noted Date Diagnosed Date Resolved Date Traumatic pneumothorax 07/16/202107/18 Acute deep vein thrombosis ( DVT) of femoral vein of left lower extremity 03/16/2018 12/02/2018 Overview: 02/19/18--on [facility] Closed fracture of one rib of left side 03/12/2017 07/12/2017 Prostatitis 01/08/2012 04/13/2014 Bladder neck obstruction 11/26/200707/2018 Cellulitis and abscess of trunk 02/05/2007 04/13/2014 documented as of this encounter (statuses as of 01/17/2023) [facility] History of Past illness Narrative* Problem Noted Date Diagnosed Date Resolved Date Traumatic pneumothorax 07/16/202107/18 Acute deep vein thrombosis ( DVT) of femoral vein of left lower extremity 03/16/2018 12/02/2018 Overview: 02/19/18--on [facility] Closed fracture of one rib of left side 03/12/2017 07/12/2017 Prostatitis 01/08/2012 04/13/2014 Bladder neck obstruction 11/26/200707/2018 Cellulitis and abscess of trunk 02/05/2007 04/13/2014 documented as of this encounter (statuses as of 01/17/2023) [facility] History of Past illness Narrative* Problem Noted Date Diagnosed Date Resolved Date Traumatic pneumothorax 07/16/202107/18 Acute deep vein thrombosis ( DVT) of femoral vein of left lower extremity 03/16/2018 12/02/2018 Overview: 02/19/18--on [facility] Closed fracture of one rib of left side 03/12/2017 07/12/2017 Prostatitis 01/08/2012 04/13/2014 Bladder neck obstruction 11/26/200707/2018 Cellulitis and abscess of trunk 02/05/2007 04/13/2014 documented as of this encounter (statuses as of 01/31/2023) [facility] History of Past illness Narrative* Problem Noted Date Diagnosed Date Resolved Date Traumatic pneumothorax 07/16/202107/18 Acute deep vein thrombosis ( DVT) of femoral vein of left lower extremity 03/16/2018 12/02/2018 Overview: 02/19/18--on [facility] Closed fracture of one rib of left side 03/12/2017 07/12/2017 Prostatitis 01/08/2012 04/13/2014 Bladder neck obstruction 11/26/200707/2018 Cellulitis and abscess of trunk 02/05/2007 04/13/2014 documented as of this encounter (statuses as of 02/19/2023) [facility] History of Past illness Narrative* Problem Noted Date Diagnosed Date Resolved Date Traumatic pneumothorax 07/16/202107/18 Acute deep vein thrombosis ( DVT) of femoral vein of left lower extremity 03/16/2018 12/02/2018 Overview: 02/19/18--on [facility] Closed fracture of one rib of left side 03/12/2017 07/12/2017 Prostatitis 01/08/2012 04/13/2014 Bladder neck obstruction 11/26/200707/2018 Cellulitis and abscess of trunk 02/05/2007 04/13/2014 documented as of this encounter (statuses as of 02/25/2023) [facility] History of Past illness Narrative* Problem Noted Date Diagnosed Date Resolved Date Traumatic pneumothorax 07/16/202107/18 Acute deep vein thrombosis ( DVT) of femoral vein of left lower extremity 03/16/2018 12/02/2018 Overview: 02/19/18--on [facility] Closed fracture of one rib of left side 03/12/2017 07/12/2017 Prostatitis 01/08/2012 04/13/2014 Bladder neck obstruction 11/26/200707/2018 Cellulitis and abscess of trunk 02/05/2007 04/13/2014 documented as of this encounter (statuses as of 04/06/2023) [facility] History of Past illness Narrative* Problem Noted Date Diagnosed Date Resolved Date Traumatic pneumothorax 07/16/202107/18 Acute deep vein thrombosis ( DVT) of femoral vein of left lower extremity 03/16/2018 12/02/2018 Overview: 02/19/18--on [facility] Closed fracture of one rib of left side 03/12/2017 07/12/2017 Prostatitis 01/08/2012 04/13/2014 Bladder neck obstruction 11/26/200707/2018 Cellulitis and abscess of trunk 02/05/2007 04/13/2014 documented as of this encounter (statuses as of 04/15/2023) [facility] History of Past illness Narrative* Problem Noted Date Diagnosed Date Resolved Date Traumatic pneumothorax 07/16/202107/18 Acute deep vein thrombosis ( DVT) of femoral vein of left lower extremity 03/16/2018 12/02/2018 Overview: 02/19/18--on [facility] Closed fracture of one rib of left side 03/12/2017 07/12/2017 Prostatitis 01/08/2012 04/13/2014 Bladder neck obstruction 11/26/200707/2018 Cellulitis and abscess of trunk 02/05/2007 04/13/2014 documented as of this encounter (statuses as of 04/26/2023) [facility] History of Past illness Narrative* Problem Noted Date Diagnosed Date Resolved Date Traumatic pneumothorax 07/16/202107/18 Acute deep vein thrombosis ( DVT) of femoral vein of left lower extremity 03/16/2018 12/02/2018 Overview: 02/19/18--on [facility] Closed fracture of one rib of left side 03/12/2017 07/12/2017 Prostatitis 01/08/2012 04/13/2014 Bladder neck obstruction 11/26/200707/2018 Cellulitis and abscess of trunk 02/05/2007 04/13/2014 documented as of this encounter (statuses as of 07/07/2023) [facility] History of Past illness Narrative* Problem Noted Date Diagnosed Date Resolved Date Traumatic pneumothorax 07/16/202107/18 Acute deep vein thrombosis ( DVT) of femoral vein of left lower extremity 03/16/2018 12/02/2018 Overview: 02/19/18--on [facility] Closed fracture of one rib of left side 03/12/2017 07/12/2017 Prostatitis 01/08/2012 04/13/2014 Bladder neck obstruction 11/26/200707/2018 Cellulitis and abscess of trunk 02/05/2007 04/13/2014 documented as of this encounter (statuses as of 08/08/2023) [facility] History of Past illness Narrative* Problem Noted Date Diagnosed Date Resolved Date Traumatic pneumothorax 07/16/202107/18 Acute deep vein thrombosis ( DVT) of femoral vein of left lower extremity 03/16/2018 12/02/2018 Overview: 02/19/18--on Eli[facility] Closed fracture of one rib of left side 03/12/2017 07/12/2017 Prostatitis 01/08/2012 04/13/2014 Bladder neck obstruction 11/26/200707/2018 Cellulitis and abscess of trunk 02/05/2007 04/13/2014 documented as of this encounter (statuses as of 09/02/2023) [facility] Onset Date Resolution Status Actinic keratosis chronic Former smoker chronic 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 Personal history of skin cancer chronic [facility] Work Phone: Evaluation note* Diagnosis Fall in home, subsequent encounter- Primary Acute pain of right shoulder Unsteady gait when walking Situational depression Adjustment disorder with depressed mood Benign hypertension Essential hypertension, benign Hyperlipidemia with target LDL less than 100 Other and unspecified hyperlipidemia Intention tremor Essential and other specified forms of tremor Gastroesophageal reflux disease, unspecified whether esophagitis present Non-seasonal allergic rhinitis, unspecified trigger History of DVT of lower extremity Personal history of venous thrombosis and embolism Chronic anticoagulation Long-term (current) use of anticoagulants Need for COVID-19 vaccine [facility] Acute pain of right shoulder- Primary Limited range of motion (ROM) of shoulder [facility] Diagnosis Impingement syndrome of right shoulder- Primary Other affections of shoulder region, not elsewhere classified Acute pain of right shoulder Limited range of motion (ROM) of shoulder [facility] Diagnosis BPH with obstruction/lower urinary tract symptoms- Primary Hypertrophy of prostate with urinary obstruction and other lower urinary tract symptoms (LUTS) [facility] Diagnosis Acute pain of right shoulder- Primary Limited range of motion (ROM) of shoulder Impingement syndrome of right shoulder Other affections of shoulder region, not elsewhere classified Traumatic tear of right rotator cuff, unspecified tear extent, initial encounter [facility] Diagnosis Tendinopathy of right rotator cuff- Primary Adhesive capsulitis of right shoulder Adhesive capsulitis of shoulder Hyperlipidemia with target LDL less than 100 Other and unspecified hyperlipidemia Essential tremor Essential and other specified forms of tremor Benign hypertension Essential hypertension, benign Situational depression Adjustment disorder with depressed mood Need for influenza vaccination Need for prophylactic vaccination and inoculation against influenza Need for COVID-19 vaccine [facility] Fall, subsequent encounter- Primary Orthostatic hypotension Laceration of skin of eyebrow, left, subsequent encounter Acute alcoholic intoxication with complication (HCC) Injury of head, subsequent encounter [facility] Diagnosis Situational depression Adjustment disorder with depressed mood Essential tremor Essential and other specified forms of tremor [facility] Diagnosis Benign hypertension- Primary Essential hypertension, benign [facility]* Diagnosis Benign hypertension- Primary Essential hypertension, benign [facility]* Diagnosis Essential tremor Essential and other specified forms of tremor [facility]* Diagnosis Benign hypertension- Primary Essential hypertension, benign Orthostatic hypotension At high risk for falls Personal history of fall Situational depression Adjustment disorder with depressed mood Essential tremor Essential and other specified forms of tremor Chronic anticoagulation Long-term (current) use of anticoagulants Gastroesophageal reflux disease, unspecified whether esophagitis present BPH with obstruction/lower urinary tract symptoms Hypertrophy of prostate with urinary obstruction and other lower urinary tract symptoms (LUTS) Abdominal aortic aneurysm (AAA) without rupture, unspecified part Encounter for immunization Need for other specified prophylactic vaccination against single bacterial disease Pulmonary emphysema, unspecified emphysema type (HCC) [facility]* Diagnosis Essential tremor Essential and other specified forms of tremor [facility]* Diagnosis Essential tremor Essential and other specified forms of tremor Benign hypertension Essential hypertension, benign Situational depression Adjustment disorder with depressed mood [facility]* Diagnosis Hyperlipidemia with target LDL less than 100 Other and unspecified hyperlipidemia [facility]* Diagnosis Benign hypertension- Primary Essential hypertension, benign Obesity, Class I, BMI 30-34.9 Obesity, unspecified Hyperlipidemia with target LDL less than 100 Other and unspecified hyperlipidemia Gastroesophageal reflux disease, unspecified whether esophagitis present BPH with obstruction/lower urinary tract symptoms Hypertrophy of prostate with urinary obstruction and other lower urinary tract symptoms (LUTS) Abdominal aortic aneurysm (AAA) without rupture, unspecified part (HCC) Chronic anticoagulation Long-term (current) use of anticoagulants History of DVT of lower extremity Personal history of venous thrombosis and embolism Fall, initial encounter documented in this encounter [facility] note* Diagnosis Onset Date Resolution Status Actinic keratosis chronic Former smoker chronic Other seborrheic keratosis c hronic Personal history of skin cancer chronic Actinic keratosis chronic Former smoker chronic Other seborrheic keratosis c hronic Personal history of skin cancer chronic [facility] Work Phone: Evaluation note* Diagnosis CHAU (dyspnea on exertion)- Primary Other dyspnea and respiratory abnormality Bilateral lower extremity edema Edema Benign hypertension Essential hypertension, benign Hyperlipidemia with target LDL less than 100 Other and unspecified hyperlipidemia Gastroesophageal reflux disease, unspecified whether esophagitis present BPH with obstruction/lower urinary tract symptoms Hypertrophy of prostate with urinary obstruction and other lower urinary tract symptoms (LUTS) Situational depression Adjustment disorder with depressed mood Obesity, Class I, BMI 30-34.9 Obesity, unspecified Abdominal aortic aneurysm (AAA) without rupture, unspecified part (HCC) History of DVT of lower extremity Personal history of venous thrombosis and embolism Chronic anticoagulation Long-term (current) use of anticoagulants At high risk for falls Personal history of fall Fall in home, initial encounter [facility]* Diagnosis Onset Date Resolution Status History of repair of aneurys m of abdominal aorta using endovascular stent graft acute Actinic keratosis chronic Cutaneous horn chronic Former smoker chronic Neoplasm of skin of forearm chronic Neoplasm of skin of hand chr onic Other seborrheic keratosis c hronic Personal history of skin cancer chronic [facility] Work Phone: Evaluation note* Diagnosis Hypotension, unspecified hypotension type- Primary Alcohol use disorder, mild, abuse Essential tremor Essential and other specified forms of tremor [facility]* Diagnosis Fall in home, initial encounter- Primary Rib pain on right side Chest pain, unspecified Encounter for immunization Need for other specified prophylactic vaccination against single bacterial disease Injury of head, initial encounter Hypotension, unspecified hypotension type Alcohol use disorder, mild, abuse [facility]* Diagnosis Injury of head, initial encounter [facility]* Diagnosis Hyperlipidemia with target LDL less than 100 Other and unspecified hyperlipidemia [facility] Diagnosis Unsteady gait when walking- Primary Fall in home, initial encounter Rib pain on right side Chest pain, unspecified Benign hypertension Essential hypertension, benign Hyperlipidemia with target LDL less than 100 Other and unspecified hyperlipidemia CHAU (dyspnea on exertion) Other dyspnea and respiratory abnormality BPH with obstruction/lower urinary tract symptoms Hypertrophy of prostate with urinary obstruction and other lower urinary tract symptoms (LUTS) History of DVT of lower extremity Personal history of venous thrombosis and embolism Chronic anticoagulation Long-term (current) use of anticoagulants Encounter for immunization Need for other specified prophylactic vaccination against single bacterial disease [facility] Diagnosis Acute deep vein thrombosis (DVT) of femoral vein of right lower extremity (HCC) [facility]* Diagnosis Cutaneous abscess of other site [facility]* Diagnosis Hyperlipidemia with target LDL less than 100 Other and unspecified hyperlipidemia Situational depression Adjustment disorder with depressed mood [facility]* Diagnosis Fall in home, initial encounter- Primary Orthostatic hypotension Abrasion of forehead, initial encounter Injury of head, initial encounter Skin tear of right elbow without complication, initial encounter Benign hypertension Essential hypertension, benign Hyperlipidemia with target LDL less than 100 Other and unspecified hyperlipidemia BPH with obstruction/lower urinary tract symptoms Hypertrophy of prostate with urinary obstruction and other lower urinary tract symptoms (LUTS) History of DVT of lower extremity Personal history of venous thrombosis and embolism Chronic anticoagulation Long-term (current) use of anticoagulants At high risk for falls Personal history of fall Abdominal aortic aneurysm (AAA) without rupture, unspecified part (HCC) [facility] Diagnosis Injury of head, initial encounter Chronic anticoagulation Long-term (current) use of anticoagulants [facility]* Diagnosis S/P cervical spinal fusion- Primary Arthrodesis status [facility]* Diagnosis Fall in home, initial encounter Rib pain on right side Chest pain, unspecified [facility]* Diagnosis CHAU (dyspnea on exertion) Other dyspnea and respiratory abnormality [facility]* Diagnosis Spinal stenosis of cervical region- Primary Spinal stenosis in cervical region [facility] Diagnosis Essential tremor Essential and other specified forms of tremor [facility]* Diagnosis S/P cervical spinal fusion Arthrodesis status [facility]* Diagnosis Decreased breath sounds at left lung base [facility] Diagnosis Acute pain of right shoulder [facility] Diagnosis Fall in home, initial encounter- Primary Other closed nondisplaced fracture of fourth cervical vertebra with routine healing, subsequent encounter 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 Contusion of cervical spinal region Muscle right arm weakness Muscle weakness (generalized) Decreased breath sounds at left lung base Alcohol abuse Alcohol abuse, unspecified Anemia, unspecified type Encounter for immunization Need for other specified prophylactic vaccination against single bacterial disease Decreased breath sounds at left lung base [facility] Diagnosis Elevated alkaline phosphatase level- Primary Other nonspecific abnormal serum enzyme levels [facility]* Diagnosis Closed fracture of multiple ribs of right side with routine healing, subsequent encounter Traumatic pneumothorax, subsequent encounter Fall in home, subsequent encounter Pneumomediastinum (HCC) Interstitial emphysema [facility]* Diagnosis Normocytic anemia due to blood loss- Primary Iron deficiency anemia secondary to blood loss (chronic) Hypoalbuminemia Other disorders of plasma protein metabolism [facility] Diagnosis S/P cervical spinal fusion- Primary Arthrodesis status [facility]* Diagnosis Spinal stenosis of cervical region Spinal stenosis in cervical region [facility]* Diagnosis S/P cervical spinal fusion Arthrodesis status [facility] Diagnosis Other closed nondisplaced fracture of fourth cervical vertebra, sequela- Primary History of fusion of cervical spine Arthrodesis status Benign hypertension Essential hypertension, benign Hyperlipidemia with target LDL less than 100 Other and unspecified hyperlipidemia BPH with obstruction/lower urinary tract symptoms Hypertrophy of prostate with urinary obstruction and other lower urinary tract symptoms (LUTS) Elevated alkaline phosphatase level Other nonspecific abnormal serum enzyme levels 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 Anemia, unspecified type Alcohol use [facility] Diagnosis Elevated alkaline phosphatase level- Primary Other nonspecific abnormal serum enzyme levels [facility] S/P cervical spinal fusion Arthrodesis status [facility] Diagnosis Elevated alkaline phosphatase level Other nonspecific abnormal serum enzyme levels [facility] Diagnosis Radiculopathy, cervical region- Primary Brachial neuritis or radiculitis nos S/P cervical spinal fusion Arthrodesis status Paresthesia of skin Disturbance of skin sensation [facility] Diagnosis S/P cervical spinal fusion- Primary Arthrodesis status Central cord syndrome, initial encounter [facility] S/P cervical spinal fusion- Primary Arthrodesis status [facility] Diagnosis CHAU (dyspnea on exertion) Other dyspnea and respiratory abnormality [facility] Diagnosis CHAU (dyspnea on exertion)- Primary Other dyspnea and respiratory abnormality History of fusion of cervical spine Arthrodesis status Benign hypertension Essential hypertension, benign Alcohol use CHAU (dyspnea on exertion) Other dyspnea and respiratory abnormality [facility] Diagnosis Hyperglycemia- Primary Other abnormal glucose [facility]* Diagnosis S/P cervical spinal fusion- Primary Arthrodesis status [facility] Diagnosis S/P cervical spinal fusion Arthrodesis status [facility] Diagnosis History of fusion of cervical spine- Primary Arthrodesis status Weakness of upper extremity Hyperlipidemia with target LDL less than 100 Other and unspecified hyperlipidemia Benign hypertension Essential hypertension, benign BPH with obstruction/lower urinary tract symptoms Hypertrophy of prostate with urinary obstruction and other lower urinary tract symptoms (LUTS) Skin lesion Unspecified disorder of skin and subcutaneous tissue Scleral injection Redness or discharge of eye Other specified glaucoma, unspecified laterality Chewing tobacco use Tobacco use disorder Alcohol use Encounter for immunization Need for other specified prophylactic vaccination against single bacterial disease Facial droop Facial weakness [facility]* Diagnosis Benign hypertension- Primary Essential hypertension, benign Hyperlipidemia with target LDL less than 100 Other and unspecified hyperlipidemia BPH with obstruction/lower urinary tract symptoms Hypertrophy of prostate with urinary obstruction and other lower urinary tract symptoms (LUTS) Skin lesion Unspecified disorder of skin and subcutaneous tissue Encounter for immunization Need for other specified prophylactic vaccination against single bacterial disease Tobacco use Tobacco use disorder Alcohol use Personal history of malignant neoplasm of skin Personal history of other malignant neoplasm of skin [facility]* Diagnosis Normocytic anemia- Primary Anemia, unspecified [facility] noteNo assessment information availableWFirelands Regional Medical Center Work Phone: Hospital Discharge instructionsAdditional Instructions monitor Schreiber output. If Schreiber catheter stops draining you need to be seen in the emergency department. Follow-up with your primary care physician and urologist. Return back to the ED if symptoms change or worsen.[facility] Work Phone: [facility] for referral (narrative)* Diagnostic Procedure Only (Routine) - Closed Specialty Diagnoses / Procedures Referred By Contac t Referred To Contact XR IMAGING Diagnoses Acute pain of right shoulder Procedures XR SHOULDER GENERAL 3V OR MORE AP/TRUE AP/OTHER RIGHT RADEX SHOULDER COMPLETE MINIMUM 2 VIEWS Kanchan Ge MD [address] [place] [address] Xr Imaging Referral ID Status Reason Start Date Expiration Date V isits Requested Visits Authorized [id number] Closed Auto-Generate d Referral 10/23/2021 11/22/2022 1 1 * Physical Therapy (Routine) - Pending Review Specialty Diagnoses / Procedures Referred By Contac t Referred To Contact [facility] Diagnoses Fall in home, subsequent encounter Acute pain of right shoulder Procedures CONSULT TO PHYSICAL THERAPY PHYSICAL THERAPY EVALUATION HIGH COMPLEX 45 MINS Kanchan Ge MD [address] [place] [address] [facility] [place] [address] [place] [address] Referral ID Status Reason Start Date Expiration Date Visits Requested Visits Authorized [id number] Pending Review Auto-Generat ed Referral 10/23/2021 10/23/2022 1 1 [facility] for referral (narrative)* Diagnostic Procedure Only (Urgent) - Pending Review Specialty Diagnoses / Procedures Referred By Contact Referred To Contact MOLECULAR & FUNCTIONAL IMAGING Diagnoses CHAU (dyspnea on exertion) Procedures NM CARDIAC PERF STRESS/PHARM MYOCARDIAL SPECT MULTIPLE STUDIES Kanchan Ge MD [address] [place] [address] [facility] [address] [id number] Referral ID Status Reason Start Date Expiration Date Visits Requested Visits Authorized [id number] Pending Review Auto-Generat ed Referral 01/16/2023 02/15/2024 1 1 * Outpatient Procedure (Urgent) - Authorized Specialty Diagnoses / Procedures Referred By Contac t Referred To Contact [facility] [place] Diagnoses CHAU (dyspnea on exertion) Procedures ECHO ECHO TTHRC R-T 2D W/WOM-MODE COMPL SPEC&COLR D Kanchan Ge MD [address] [place] [address] [facility] [address] [address] Referral ID Status Reason Start Date Expiration Date Visits Requested Visits Authorized [id number] Authorized Auto-Generat ed Referral 01/16/2023 01/16/2024 1 1 * Outpatient Procedure (Routine) - Closed Specialty Diagnoses / Procedures Referred By Contac t Referred To Contact [facility] [place] Diagnoses CHAU (dyspnea on exertion) Bilateral lower extremity edema Procedures ECG COMPLETE ECG ROUTINE ECG W/LEAST 12 LDS W/I&R Kanchan Ge MD [address] [place] [address] [facility] [id number] [place] [address] Referral ID Status Reason Start Date Expiration Date V isits Requested Visits Authorized [id number] Closed Auto-Generate d Referral 01/16/2023 01/16/2024 1 1 [facility] for referral (narrative)* Diagnostic Procedure Only (Routine) - New Request Specialty Diagnoses / Procedures Referred By Contac t Referred To Contact XR IMAGING Diagnoses S/P cervical spinal fusion Procedures XR CERV GENERAL 2V AP/LAT RADEX SPINE CERVICAL 2 OR 3 VIEWS Mando Ling MD [address] [place] [address] [place] [address] Referral ID Status Reason Start Date Expiration Date Visits Requested Visits Authorized [id number] New Request Auto-Generat ed Referral 01/22/2024 02/20/2025 1 1 [facility] for referral (narrative)* Diagnostic Procedure Only (Routine) - Closed Specialty Diagnoses / Procedures Referred By Contac t Referred To Contact XR IMAGING Diagnoses Fall in home, initial encounter Rib pain on right side Procedures XR RIBS/CHEST 3V AP RIB/OBLS/CXR RIGHT RADEX RIBS UNI W/POSTEROANT CH MINIMUM 3 [place] [address] [place] [address] [place] [address] Referral ID Status Reason Start Date Expiration Date V isits Requested Visits Authorized [id number] Closed Auto-Generate d Referral 02/18/2023 03/19/2024 1 1 [facility] for referral (narrative)* Diagnostic Procedure Only (Routine) - Closed Specialty Diagnoses / Procedures Referred By Contac t Referred To Contact XR IMAGING Diagnoses Acute pain of right shoulder Procedures XR SHOULDER GENERAL 3V OR MORE AP/TRUE AP/OTHER RIGHT RADEX SHOULDER COMPLETE MINIMUM 2 VIEWS Kanchan Ge MD [address] [place] [address] [place] [address] Referral ID Status Reason Start Date Expiration Date V isits Requested Visits Authorized [id number] Closed Auto-Generate d Referral 10/23/2021 11/22/2022 1 1 [facility] for referral (narrative)* Diagnostic Procedure Only (Routine) - Authorized Specialty Diagnoses / Procedures Referred By Jessikaac t Referred To Contact US IMAGING Diagnoses Elevated alkaline phosphatase level Procedures US ABD RIGHT UPPER QUADRANT US ABDOMINAL REAL TIME W/IMAGE LIMITED Kanchan Ge MD [address] [place] [address] [place] [address] Referral ID Status Reason Start Date Expiration Date Visits Requested Visits Authorized [id number] Authorized Auto-Generat ed Referral 05/04/2024 06/03/2025 1 1 [facility] for referral (narrative)No reason for referral information availableWFirelands Regional Medical Center Work Phone: Reason for visit Narrative* Diagnostic Procedure Only (Routine) - Closed Specialty Diagnoses / Procedures Referred By Contac t Referred To Contact XR IMAGING Diagnoses Fall in home, initial encounter Rib pain on right side Procedures XR RIBS/CHEST 3V AP RIB/OBLS/CXR RIGHT RADEX RIBS UNI W/POSTEROANT CH MINIMUM 3 VIEWS Kanchan Ge MD [address] [place] [address] [place] [address] Referral ID Status Reason Start Date Expiration Date V isits Requested Visits Authorized [id number] Closed Auto-Generate d Referral 02/18/2023 03/19/2024 1 1 [facility] for visit Narrative* Diagnostic Procedure Only (Routine) - Closed Specialty Diagnoses / Procedures Referred By Contac t Referred To Contact XR IMAGING Diagnoses S/P cervical spinal fusion Procedures XR CERV GENERAL 2V AP/LAT RADEX SPINE CERVICAL 2 OR 3 VIEWS Mando Ling MD [address] [place] [address] [place] [address] Referral ID Status Reason Start Date Expiration Date V isits Requested Visits Authorized [id number] Closed Auto-Generate d Referral 01/22/2024 02/20/2025 1 1 [facility] for visit Narrative* Diagnostic Procedure Only (Routine) - Closed Specialty Diagnoses / Procedures Referred By Contac t Referred To Contact XR IMAGING Diagnoses Acute pain of right shoulder Procedures XR SHOULDER GENERAL 3V OR MORE AP/TRUE AP/OTHER RIGHT RADEX SHOULDER COMPLETE MINIMUM 2 VIEWS Kanchan Ge MD [address] [place] [address] [place] [address] Referral ID Status Reason Start Date Expiration Date V isits Requested Visits Authorized [id number] Closed Auto-Generate d Referral 10/23/2021 11/22/2022 1 1 [facility] for visit Narrative* Diagnostic Procedure Only (Routine) - Closed Specialty Diagnoses / Procedures Referred By Contac t Referred To Contact XR IMAGING Diagnoses S/P cervical spinal fusion Procedures XR CERV GENERAL 2V AP/LAT RADEX SPINE CERVICAL 2 OR 3 VIEWS Mando Ling MD [address] [place] [address] [place] [address] Referral ID Status Reason Start Date Expiration Date V isits Requested Visits Authorized [id number] Closed Auto-Generate d Referral 04/27/2024 05/27/2025 1 1 [facility] for visit Narrative* Diagnostic Procedure Only (Routine) - Closed Specialty Diagnoses / Procedures Referred By Contac t Referred To Contact XR IMAGING Diagnoses S/P cervical spinal fusion Procedures XR SHOULDER LIMITED 2V AP/TRUE AP LEFT RADEX SHOULDER COMPLETE MINIMUM 2 VIEWS Mando Ling MD [address] [place] [address] [place] [address] Referral ID Status Reason Start Date Expiration Date V isits Requested Visits Authorized [id number] Closed Auto-Generate d Referral 05/03/2024 06/02/2025 1 1 [facility] for visit Narrative* Diagnostic Procedure Only (Routine) - Closed Specialty Diagnoses / Procedures Referred By Contac t Referred To Contact XR IMAGING Diagnoses S/P cervical spinal fusion Procedures XR CERV GENERAL 2V AP/LAT RADEX SPINE CERVICAL 2 OR 3 VIEWS Mando Ling MD [address] [place] [address] Phone: tel: fax: [place] [address] Referral ID Status Reason Start Date Expiration Date V isits Requested Visits Authorized [id number] Closed Auto-Generate d Referral 01/12/2024 02/10/2025 1 1 [facility] Summary Purpose Family History No Family History Records Found Relationship Condition Age at Onset Recorded Date/T danie sister Diabetes mellitus Unknown Advance Directives No Advanced Directives Records FoundDocuments on File Type Date 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 Advance Directive(s) 07/15/2021 9:17 PM Advance Directive Response Recorded Date/ Time Advance Directives Yes May 04, 2018 2:45pm Living Will No July 15, 022 5:32pm Power of [employer] No July 15, 2021 5:32pm Documents on File Type Date 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 Advance Directive(s) 07/15/2021 9:17 PM Advance Directive Response Recorded Date/ Time Name of Medical Power of [employer] Alex Randle April 17, 2022 8:09pm Advance Directives Yes May 04, 2018 1:45pm Living Will Yes April 17, 022 8:09pm Power of [employer] Yes April 17, 2022 8:09pm Advance Directive Response Recorded Date/ Time Advance Directives Yes September 10, 1:48pm Living Will Yes September 10, 2022 1:48pm Power of [employer] Yes September 10 1:48pm Date Activated Date Inactivated Comments 01/01/2024 7:11 AM 01/09/2024 8:37 PM Question Answer Comments Full Code Order Discussed With: Patient Date Activated Date Inactivated Comments 01/01/2024 7:11 AM 01/09/2024 8:37 PM Question Answer Comments Full Code Order Discussed With: Patient Advance Directive Response Recorded Date/ Time Do you have a Healthcare Power of [employer]? Yes March 09, 2025 9:29pm Advance Directives Yes March 11, 2023 2:06pm Chief Complaint and Reason for Visit Chief Complaint fell, head injury 3 M FU Abdominal aortic aneurysm, without rupture Reason for Visit Actinic keratosis Former smoker Neoplasm of skin of forearm Neoplasm of skin of nose Neoplasm of skin of buddhist region Personal history of skin cancer Chief Complaint FOLLOW UP fall WOUND Reason for Visit Actinic keratosis Former smoker Neoplasm of skin of forearm Neoplasm of skin of nose Neoplasm of skin of buddhist region Personal history of skin cancer Chief Complaint FOLLOW UP 3 M FU ABDOMINAL AAA Reason for Visit Actinic keratosis Former smoker Other seborrheic keratosis Personal history of skin cancer Actinic keratosis Former smoker Other seborrheic keratosis Personal history of skin cancer Chief Complaint ABDOMINAL AAA ROUTINE AAA- U/S 09/30 2 MO FU-SKIN CHECK Reason for Visit History of repair of aneurysm of abdominal aorta using endovascular stent graft Actinic keratosis Cutaneous horn Former smoker Neoplasm of skin of forearm Neoplasm of skin of hand Other seborrheic keratosis Personal history of skin cancer Chief Complaint ROUTINE AAA- U/S 09/30 2 MO FU-SKIN CHECK [id number] Reason for Visit History of repair of aneurysm of abdominal aorta using endovascular stent graft Actinic keratosis Cutaneous horn Former smoker Neoplasm of skin of forearm Neoplasm of skin of hand Other seborrheic keratosis Personal history of skin cancer Chief Complaint Admit Date gu complaint March 09, 2025 9: 18pm Reason for Referral Specialty Diagnoses / Procedures Referred By Contac t Referred To Contact Orthopedics Diagnoses Acute pain of right shoulder Limited range of motion (ROM) of shoulder Procedures CONSULT TO ORTHOPAEDICS OFFICE/OUTPATIENT [facility] 60-74 MINUTES Kanchan Ge MD [address] [place] [address] Referral ID Status Reason Start Date Expiration Date Visits Requested Visits Authorized [id number] Pending Review PCP Requested Referral 12/06/2021 12/06/2022 1 1 Specialty Diagnoses / Procedures Referred By Contac t Referred To Contact MR IMAGING Diagnoses Acute pain of right shoulder Limited range of motion (ROM) of shoulder Impingement syndrome of right shoulder Traumatic tear of right rotator cuff, unspecified tear extent, initial encounter Procedures MRI SHOULDER WO IVCON RT MRI ANY JT UPPER EXTREMITY W/O CONTRAST MATRL Jonathan Aguiar MD [address] [place] [address] Mr Imaging Referral ID Status Reason Start Date Expiration Date V isits Requested Visits Authorized [id number] Closed Auto-Generate d Referral 01/24/2022 02/23/2023 1 1 Specialty Diagnoses / Procedures Referred By Contac t Referred To Contact CT IMAGING Diagnoses Injury of head, initial encounter Procedures CT BRAIN WO IVCON CT HEAD/BRAIN W/O CONTRAST MATERIAL Kanchan Ge MD [address] [place] [address] [place] [address] Referral ID Status Reason Start Date Expiration Date V isits Requested Visits Authorized [id number] Closed Auto-Generate d Referral 02/18/2023 03/19/2024 1 1 Specialty Diagnoses / Procedures Referred By Contac t Referred To Contact XR IMAGING Diagnoses Fall in home, initial encounter Rib pain on right side Procedures XR RIBS/CHEST 3V AP RIB/OBLS/CXR RIGHT RADEX RIBS UNI W/POSTEROANT CH MINIMUM 3 VIEWS Kanchan Ge MD [address] [place] [address] [place] [address] Referral ID Status Reason Start Date Expiration Date V isits Requested Visits Authorized [id number] Closed Auto-Generate d Referral 02/18/2023 03/19/2024 1 1 Specialty Diagnoses / Procedures Referred By Contac t Referred To Contact CT IMAGING Diagnoses Injury of head, initial encounter Chronic anticoagulation Procedures CT BRAIN WO IVCON CT HEAD/BRAIN W/O CONTRAST MATERIAL Kanchan Ge MD [address] [place] [address] Ct Imaging [id number] Referral ID Status Reason Start Date Expiration Date Visits Requested Visits Authorized [id number] Authorized Auto-Generat ed Referral 12/02/2023 06/01/2024 1 1 Referral ID Status Reason Start Date Expiration Date V isits Requested Visits Authorized [id number] Closed Auto-Generate d Referral 12/02/2023 06/01/2024 1 1 Specialty Diagnoses / Procedures Referred By Contac t Referred To Contact MR IMAGING Diagnoses Spinal stenosis of cervical region Procedures MRI CERVICAL SPINE WO IVCON MRI SPINAL CANAL CERVICAL W/O CONTRAST MATRL Mando Ling MD [address] [place] [address] Mr Imaging [facility] Referral ID Status Reason Start Date Expiration Date Visits Requested Visits Authorized [id number] Authorized Auto-Generat ed Referral 02/24/2024 03/25/2025 1 1 Specialty Diagnoses / Procedures Referred By Contac t Referred To Contact Diagnoses S/P cervical spinal fusion Procedures CONSULT TO [facility] Mando Ling MD [address] [place] [address] [address] [place] [address] Referral ID Status Reason Start Date Expiration Date V isits Requested Visits Authorized [id number] Denied PCP Requested Referral 04/26/2024 07/25/2024 1 0 Specialty Diagnoses / Procedures Referred By Contac t Referred To Contact XR IMAGING Diagnoses S/P cervical spinal fusion Procedures XR SHOULDER [id number] AP/TRUE AP RIGHT RADEX SHOULDER COMPLETE MINIMUM 2 VIEWS Mando Ling MD [address] [place] [address] [place] [address] Referral ID Status Reason Start Date Expiration Date Visits Requested Visits Authorized [id number] New Request Auto-Generat ed Referral 4 05/26/2025 1 1 Specialty Diagnoses / Procedures Referred By Contac t Referred To Contact XR IMAGING Diagnoses S/P cervical spinal fusion Procedures XR SHOULDER LIMITED 2V AP/TRUE AP LEFT RADEX SHOULDER COMPLETE MINIMUM 2 VIEWS Mando Ling MD [address] [place] [address] Xr Imaging [facility] Referral ID Status Reason Start Date Expiration Date Visits Requested Visits Authorized [id number] New Request Auto-Generat ed Referral 4 05/26/2025 1 1 Specialty Diagnoses / Procedures Referred By Contac t Referred To [facility] Diagnoses S/P cervical spinal fusion Procedures EMG(NEURO/NI) NERVE CONDUCTION STUDIES 9-10 STUDIES Mando Ling MD [address] [place] [address] Neurological [place] [address] [place] [address] Referral ID Status Reason Start Date Expiration Date Visits Requested Visits Authorized [id number] Pending Review Auto-Generat ed Referral 4 04/26/2025 1 1 Medications Administered Section Inactive Administered Medications - up to 3 most recent administrations Medication Order MAR Action Action Date Dose Rate Site betamethasone acetate-betamethasone sodium phosphate 6 mg injection (CELESTONE) 6 mg, Injection - FOR ORTHO USE ONLY, ONE TIME INJECTION, 1 dose, Starting on Fri12/17/21 at 1520, Until Fri12/17/21 at 1520 Given 12/17/2021 3:20 PM EDT 6 mg lidocaine (PF) 10 mg/mL (1 %) 4 mL injection (XYLOCAINE) 4 mL, Injection - FOR ORTHO USE ONLY, ONE TIME INJECTION, 1 dose, Starting on Fri12/17/21 at 1520, Until Fri12/17/21 at 1520 Given 12/17/2021 3:20 PM EDT 4 mL Additional Source Comments (unrecognized sect ion and content) No Status Records FoundNo Status Records FoundNo Status Records FoundNo Status Records FoundNo Status Records FoundNo Status Records Found INFORMATION SOURCE (unrecogn ized section and content) DATE CREATED AUTHOR 11/26/2017 [facility] ([place]) DATE CREATED AUTHOR AUTHOR'S ORGANIZ ATION 01/09/2024 [employer] DATE CREATED AUTHOR AUTHOR'S ORGANIZ ATION 04/13/2024 [facility] DATE CREATED AUTHOR AUTHOR'S ORGANIZ ATION 10/06/2024 [facility] DATE CREATED AUTHOR AUTHOR'S ORGANIZ ATION 03/15/2025 [facility] DATE CREATED AUTHOR AUTHOR'S ORGANIZ ATION 03/19/2025 [facility] Source Comments (unrecognize d section and content) In the event this informatio n is protected by the Federal Confidentiality of Alcohol and Drug Abuse Patient Records regulations: The Federal rules restrict any use of the information to criminally investigate or prosecute any alcohol or drug abuse patient.[facility] the event this information is protected by the Federal Confidentiality of Alcohol and Drug Abuse Patient Records regulations: The Federal rules restrict any use of the information to criminally investigate or prosecute any alcohol or drug abuse patient.[facility] the event this information is protected by the Federal Confidentiality of Alcohol and Drug Abuse Patient Records regulations: The Federal rules restrict any use of the information to criminally investigate or prosecute any alcohol or drug abuse patient.[facility] the event this information is protected by the Federal Confidentiality of Alcohol and Drug Abuse Patient Records regulations: The Federal rules restrict any use of the information to criminally investigate or prosecute any alcohol or drug abuse patient.[facility] the event this information is protected by the Federal Confidentiality of Alcohol and Drug Abuse Patient Records regulations: The Federal rules restrict any use of the information to criminally investigate or prosecute any alcohol or drug abuse patient.[facility] the event this information is protected by the Federal Confidentiality of Alcohol and Drug Abuse Patient Records regulations: The Federal rules restrict any use of the information to criminally investigate or prosecute any alcohol or drug abuse patient.[facility] HospitalIn the event this information is protected by the Federal Confidentiality of Alcohol and Drug Abuse Patient Records regulations: The Federal rules restrict any use of the information to criminally investigate or prosecute any alcohol or drug abuse patient.[facility] HospitalIn the event this information is protected by the Federal Confidentiality of Alcohol and Drug Abuse Patient Records regulations: The Federal rules restrict any use of the information to criminally investigate or prosecute any alcohol or drug abuse patient.[facility] HospitalIn the event this information is protected by the Federal Confidentiality of Alcohol and Drug Abuse Patient Records regulations: The Federal rules restrict any use of the information to criminally investigate or prosecute any alcohol or drug abuse patient.[facility] HospitalIn the event this information is protected by the Federal Confidentiality of Alcohol and Drug Abuse Patient Records regulations: The Federal rules restrict any use of the information to criminally investigate or prosecute any alcohol or drug abuse patient.[facility] HospitalIn the event this information is protected by the Federal Confidentiality of Alcohol and Drug Abuse Patient Records regulations: The Federal rules restrict any use of the information to criminally investigate or prosecute any alcohol or drug abuse patient.[facility] HospitalIn the event this information is protected by the Federal Confidentiality of Alcohol and Drug Abuse Patient Records regulations: The Federal rules restrict any use of the information to criminally investigate or prosecute any alcohol or drug abuse patient.[facility] HospitalIn the event this information is protected by the Federal Confidentiality of Alcohol and Drug Abuse Patient Records regulations: The Federal rules restrict any use of the information to criminally investigate or prosecute any alcohol or drug abuse patient.[facility] HospitalIn the event this information is protected by the Federal Confidentiality of Alcohol and Drug Abuse Patient Records regulations: The Federal rules restrict any use of the information to criminally investigate or prosecute any alcohol or drug abuse patient.[facility] HospitalIn the event this information is protected by the Federal Confidentiality of Alcohol and Drug Abuse Patient Records regulations: The Federal rules restrict any use of the information to criminally investigate or prosecute any alcohol or drug abuse patient.[facility] HospitalIn the event this information is protected by the Federal Confidentiality of Alcohol and Drug Abuse Patient Records regulations: The Federal rules restrict any use of the information to criminally investigate or prosecute any alcohol or drug abuse patient.[facility] HospitalIn the event this information is protected by the Federal Confidentiality of Alcohol and Drug Abuse Patient Records regulations: The Federal rules restrict any use of the information to criminally investigate or prosecute any alcohol or drug abuse patient.[facility] HospitalIn the event this information is protected by the Federal Confidentiality of Alcohol and Drug Abuse Patient Records regulations: The Federal rules restrict any use of the information to criminally investigate or prosecute any alcohol or drug abuse patient.[facility] HospitalIn the event this information is protected by the Federal Confidentiality of Alcohol and Drug Abuse Patient Records regulations: The Federal rules restrict any use of the information to criminally investigate or prosecute any alcohol or drug abuse patient.[facility] HospitalIn the event this information is protected by the Federal Confidentiality of Alcohol and Drug Abuse Patient Records regulations: The Federal rules restrict any use of the information to criminally investigate or prosecute any alcohol or drug abuse patient.[facility] HospitalIn the event this information is protected by the Federal Confidentiality of Alcohol and Drug Abuse Patient Records regulations: The Federal rules restrict any use of the information to criminally investigate or prosecute any alcohol or drug abuse patient.[facility] HospitalIn the event this information is protected by the Federal Confidentiality of Alcohol and Drug Abuse Patient Records regulations: The Federal rules restrict any use of the information to criminally investigate or prosecute any alcohol or drug abuse patient.[facility] HospitalIn the event this information is protected by the Federal Confidentiality of Alcohol and Drug Abuse Patient Records regulations: The Federal rules restrict any use of the information to criminally investigate or prosecute any alcohol or drug abuse patient.[facility] HospitalIn the event this information is protected by the Federal Confidentiality of Alcohol and Drug Abuse Patient Records regulations: The Federal rules restrict any use of the information to criminally investigate or prosecute any alcohol or drug abuse patient.[facility] HospitalIn the event this information is protected by the Federal Confidentiality of Alcohol and Drug Abuse Patient Records regulations: The Federal rules restrict any use of the information to criminally investigate or prosecute any alcohol or drug abuse patient.[facility] HospitalIn the event this information is protected by the Federal Confidentiality of Alcohol and Drug Abuse Patient Records regulations: The Federal rules restrict any use of the information to criminally investigate or prosecute any alcohol or drug abuse patient.[facility] HospitalIn the event this information is protected by the Federal Confidentiality of Alcohol and Drug Abuse Patient Records regulations: The Federal rules restrict any use of the information to criminally investigate or prosecute any alcohol or drug abuse patient.[facility] HospitalIn the event this information is protected by the Federal Confidentiality of Alcohol and Drug Abuse Patient Records regulations: The Federal rules restrict any use of the information to criminally investigate or prosecute any alcohol or drug abuse patient.[facility] HospitalIn the event this information is protected by the Federal Confidentiality of Alcohol and Drug Abuse Patient Records regulations: The Federal rules restrict any use of the information to criminally investigate or prosecute any alcohol or drug abuse patient.[facility] HospitalIn the event this information is protected by the Federal Confidentiality of Alcohol and Drug Abuse Patient Records regulations: The Federal rules restrict any use of the information to criminally investigate or prosecute any alcohol or drug abuse patient.[facility] HospitalIn the event this information is protected by the Federal Confidentiality of Alcohol and Drug Abuse Patient Records regulations: The Federal rules restrict any use of the information to criminally investigate or prosecute any alcohol or drug abuse patient.[facility] HospitalIn the event this information is protected by the Federal Confidentiality of Alcohol and Drug Abuse Patient Records regulations: The Federal rules restrict any use of the information to criminally investigate or prosecute any alcohol or drug abuse patient.[facility] HospitalIn the event this information is protected by the Federal Confidentiality of Alcohol and Drug Abuse Patient Records regulations: The Federal rules restrict any use of the information to criminally investigate or prosecute any alcohol or drug abuse patient.[facility] HospitalIn the event this information is protected by the Federal Confidentiality of Alcohol and Drug Abuse Patient Records regulations: The Federal rules restrict any use of the information to criminally investigate or prosecute any alcohol or drug abuse patient.[facility] HospitalIn the event this information is protected by the Federal Confidentiality of Alcohol and Drug Abuse Patient Records regulations: The Federal rules restrict any use of the information to criminally investigate or prosecute any alcohol or drug abuse patient.[facility] HospitalIn the event this information is protected by the Federal Confidentiality of Alcohol and Drug Abuse Patient Records regulations: The Federal rules restrict any use of the information to criminally investigate or prosecute any alcohol or drug abuse patient.[facility] HospitalIn the event this information is protected by the Federal Confidentiality of Alcohol and Drug Abuse Patient Records regulations: The Federal rules restrict any use of the information to criminally investigate or prosecute any alcohol or drug abuse patient.[facility] HospitalIn the event this information is protected by the Federal Confidentiality of Alcohol and Drug Abuse Patient Records regulations: The Federal rules restrict any use of the information to criminally investigate or prosecute any alcohol or drug abuse patient.[facility] HospitalIn the event this information is protected by the Federal Confidentiality of Alcohol and Drug Abuse Patient Records regulations: The Federal rules restrict any use of the information to criminally investigate or prosecute any alcohol or drug abuse patient.[facility] HospitalIn the event this information is protected by the Federal Confidentiality of Alcohol and Drug Abuse Patient Records regulations: The Federal rules restrict any use of the information to criminally investigate or prosecute any alcohol or drug abuse patient.[facility] HospitalIn the event this information is protected by the Federal Confidentiality of Alcohol and Drug Abuse Patient Records regulations: The Federal rules restrict any use of the information to criminally investigate or prosecute any alcohol or drug abuse patient.[facility] HospitalIn the event this information is protected by the Federal Confidentiality of Alcohol and Drug Abuse Patient Records regulations: The Federal rules restrict any use of the information to criminally investigate or prosecute any alcohol or drug abuse patient.[facility] HospitalIn the event this information is protected by the Federal Confidentiality of Alcohol and Drug Abuse Patient Records regulations: The Federal rules restrict any use of the information to criminally investigate or prosecute any alcohol or drug abuse patient.[facility] HospitalIn the event this information is protected by the Federal Confidentiality of Alcohol and Drug Abuse Patient Records regulations: The Federal rules restrict any use of the information to criminally investigate or prosecute any alcohol or drug abuse patient.[facility] HospitalIn the event this information is protected by the Federal Confidentiality of Alcohol and Drug Abuse Patient Records regulations: The Federal rules restrict any use of the information to criminally investigate or prosecute any alcohol or drug abuse patient.[facility] HospitalIn the event this information is protected by the Federal Confidentiality of Alcohol and Drug Abuse Patient Records regulations: The Federal rules restrict any use of the information to criminally investigate or prosecute any alcohol or drug abuse patient.[facility] HospitalIn the event this information is protected by the Federal Confidentiality of Alcohol and Drug Abuse Patient Records regulations: The Federal rules restrict any use of the information to criminally investigate or prosecute any alcohol or drug abuse patient.[facility] HospitalIn the event this information is protected by the Federal Confidentiality of Alcohol and Drug Abuse Patient Records regulations: The Federal rules restrict any use of the information to criminally investigate or prosecute any alcohol or drug abuse patient.[facility] HospitalIn the event this information is protected by the Federal Confidentiality of Alcohol and Drug Abuse Patient Records regulations: The Federal rules restrict any use of the information to criminally investigate or prosecute any alcohol or drug abuse patient.[facility] HospitalIn the event this information is protected by the Federal Confidentiality of Alcohol and Drug Abuse Patient Records regulations: The Federal rules restrict any use of the information to criminally investigate or prosecute any alcohol or drug abuse patient.[facility] HospitalIn the event this information is protected by the Federal Confidentiality of Alcohol and Drug Abuse Patient Records regulations: The Federal rules restrict any use of the information to criminally investigate or prosecute any alcohol or drug abuse patient.[facility] HospitalIn the event this information is protected by the Federal Confidentiality of Alcohol and Drug Abuse Patient Records regulations: The Federal rules restrict any use of the information to criminally investigate or prosecute any alcohol or drug abuse patient.[facility] HospitalIn the event this information is protected by the Federal Confidentiality of Alcohol and Drug Abuse Patient Records regulations: The Federal rules restrict any use of the information to criminally investigate or prosecute any alcohol or drug abuse patient.[facility] HospitalIn the event this information is protected by the Federal Confidentiality of Alcohol and Drug Abuse Patient Records regulations: The Federal rules restrict any use of the information to criminally investigate or prosecute any alcohol or drug abuse patient.[facility] HospitalIn the event this information is protected by the Federal Confidentiality of Alcohol and Drug Abuse Patient Records regulations: The Federal rules restrict any use of the information to criminally investigate or prosecute any alcohol or drug abuse patient.[facility] HospitalIn the event this information is protected by the Federal Confidentiality of Alcohol and Drug Abuse Patient Records regulations: The Federal rules restrict any use of the information to criminally investigate or prosecute any alcohol or drug abuse patient.[facility] HospitalIn the event this information is protected by the Federal Confidentiality of Alcohol and Drug Abuse Patient Records regulations: The Federal rules restrict any use of the information to criminally investigate or prosecute any alcohol or drug abuse patient.[facility] HospitalIn the event this information is protected by the Federal Confidentiality of Alcohol and Drug Abuse Patient Records regulations: The Federal rules restrict any use of the information to criminally investigate or prosecute any alcohol or drug abuse patient.[facility] HospitalIn the event this information is protected by the Federal Confidentiality of Alcohol and Drug Abuse Patient Records regulations: The Federal rules restrict any use of the information to criminally investigate or prosecute any alcohol or drug abuse patient.[facility] HospitalIn the event this information is protected by the Federal Confidentiality of Alcohol and Drug Abuse Patient Records regulations: The Federal rules restrict any use of the information to criminally investigate or prosecute any alcohol or drug abuse patient.[facility] HospitalIn the event this information is protected by the Federal Confidentiality of Alcohol and Drug Abuse Patient Records regulations: The Federal rules restrict any use of the information to criminally investigate or prosecute any alcohol or drug abuse patient.[facility] HospitalIn the event this information is protected by the Federal Confidentiality of Alcohol and Drug Abuse Patient Records regulations: The Federal rules restrict any use of the information to criminally investigate or prosecute any alcohol or drug abuse patient.[facility] HospitalIn the event this information is protected by the Federal Confidentiality of Alcohol and Drug Abuse Patient Records regulations: The Federal rules restrict any use of the information to criminally investigate or prosecute any alcohol or drug abuse patient.[facility] HospitalIn the event this information is protected by the Federal Confidentiality of Alcohol and Drug Abuse Patient Records regulations: The Federal rules restrict any use of the information to criminally investigate or prosecute any alcohol or drug abuse patient.[facility] HospitalIn the event this information is protected by the Federal Confidentiality of Alcohol and Drug Abuse Patient Records regulations: The Federal rules restrict any use of the information to criminally investigate or prosecute any alcohol or drug abuse patient.[facility] HospitalIn the event this information is protected by the Federal Confidentiality of Alcohol and Drug Abuse Patient Records regulations: The Federal rules restrict any use of the information to criminally investigate or prosecute any alcohol or drug abuse patient.[facility] HospitalIn the event this information is protected by the Federal Confidentiality of Alcohol and Drug Abuse Patient Records regulations: The Federal rules restrict any use of the information to criminally investigate or prosecute any alcohol or drug abuse patient.[facility] HospitalIn the event this information is protected by the Federal Confidentiality of Alcohol and Drug Abuse Patient Records regulations: The Federal rules restrict any use of the information to criminally investigate or prosecute any alcohol or drug abuse patient.[facility] HospitalIn the event this information is protected by the Federal Confidentiality of Alcohol and Drug Abuse Patient Records regulations: The Federal rules restrict any use of the information to criminally investigate or prosecute any alcohol or drug abuse patient.[facility] HospitalIn the event this information is protected by the Federal Confidentiality of Alcohol and Drug Abuse Patient Records regulations: The Federal rules restrict any use of the information to criminally investigate or prosecute any alcohol or drug abuse patient.[facility] HospitalIn the event this information is protected by the Federal Confidentiality of Alcohol and Drug Abuse Patient Records regulations: The Federal rules restrict any use of the information to criminally investigate or prosecute any alcohol or drug abuse patient.[facility] HospitalIn the event this information is protected by the Federal Confidentiality of Alcohol and Drug Abuse Patient Records regulations: The Federal rules restrict any use of the information to criminally investigate or prosecute any alcohol or drug abuse patient.[facility] HospitalIn the event this information is protected by the Federal Confidentiality of Alcohol and Drug Abuse Patient Records regulations: The Federal rules restrict any use of the information to criminally investigate or prosecute any alcohol or drug abuse patient.[facility] HospitalIn the event this information is protected by the Federal Confidentiality of Alcohol and Drug Abuse Patient Records regulations: The Federal rules restrict any use of the information to criminally investigate or prosecute any alcohol or drug abuse patient.[facility] HospitalIn the event this information is protected by the Federal Confidentiality of Alcohol and Drug Abuse Patient Records regulations: The Federal rules restrict any use of the information to criminally investigate or prosecute any alcohol or drug abuse patient.[facility] HospitalIn the event this information is protected by the Federal Confidentiality of Alcohol and Drug Abuse Patient Records regulations: The Federal rules restrict any use of the information to criminally investigate or prosecute any alcohol or drug abuse patient.[facility] HospitalIn the event this information is protected by the Federal Confidentiality of Alcohol and Drug Abuse Patient Records regulations: The Federal rules restrict any use of the information to criminally investigate or prosecute any alcohol or drug abuse patient.[facility] HospitalIn the event this information is protected by the Federal Confidentiality of Alcohol and Drug Abuse Patient Records regulations: The Federal rules restrict any use of the information to criminally investigate or prosecute any alcohol or drug abuse patient.[facility] HospitalIn the event this information is protected by the Federal Confidentiality of Alcohol and Drug Abuse Patient Records regulations: The Federal rules restrict any use of the information to criminally investigate or prosecute any alcohol or drug abuse patient.[facility] HospitalIn the event this information is protected by the Federal Confidentiality of Alcohol and Drug Abuse Patient Records regulations: The Federal rules restrict any use of the information to criminally investigate or prosecute any alcohol or drug abuse patient.[facility] HospitalIn the event this information is protected by the Federal Confidentiality of Alcohol and Drug Abuse Patient Records regulations: The Federal rules restrict any use of the information to criminally investigate or prosecute any alcohol or drug abuse patient.[facility] HospitalIn the event this information is protected by the Federal Confidentiality of Alcohol and Drug Abuse Patient Records regulations: The Federal rules restrict any use of the information to criminally investigate or prosecute any alcohol or drug abuse patient.[facility] HospitalIn the event this information is protected by the Federal Confidentiality of Alcohol and Drug Abuse Patient Records regulations: The Federal rules restrict any use of the information to criminally investigate or prosecute any alcohol or drug abuse patient.[facility] HospitalIn the event this information is protected by the Federal Confidentiality of Alcohol and Drug Abuse Patient Records regulations: The Federal rules restrict any use of the information to criminally investigate or prosecute any alcohol or drug abuse patient.[facility] HospitalIn the event this information is protected by the Federal Confidentiality of Alcohol and Drug Abuse Patient Records regulations: The Federal rules restrict any use of the information to criminally investigate or prosecute any alcohol or drug abuse patient.[facility] HospitalIn the event this information is protected by the Federal Confidentiality of Alcohol and Drug Abuse Patient Records regulations: The Federal rules restrict any use of the information to criminally investigate or prosecute any alcohol or drug abuse patient.[facility] HospitalIn the event this information is protected by the Federal Confidentiality of Alcohol and Drug Abuse Patient Records regulations: The Federal rules restrict any use of the information to criminally investigate or prosecute any alcohol or drug abuse patient.[facility] HospitalIn the event this information is protected by the Federal Confidentiality of Alcohol and Drug Abuse Patient Records regulations: The Federal rules restrict any use of the information to criminally investigate or prosecute any alcohol or drug abuse patient.[facility] HospitalIn the event this information is protected by the Federal Confidentiality of Alcohol and Drug Abuse Patient Records regulations: The Federal rules restrict any use of the information to criminally investigate or prosecute any alcohol or drug abuse patient.[facility] HospitalIn the event this information is protected by the Federal Confidentiality of Alcohol and Drug Abuse Patient Records regulations: The Federal rules restrict any use of the information to criminally investigate or prosecute any alcohol or drug abuse patient.[facility] HospitalIn the event this information is protected by the Federal Confidentiality of Alcohol and Drug Abuse Patient Records regulations: The Federal rules restrict any use of the information to criminally investigate or prosecute any alcohol or drug abuse patient.[facility] HospitalIn the event this information is protected by the Federal Confidentiality of Alcohol and Drug Abuse Patient Records regulations: The Federal rules restrict any use of the information to criminally investigate or prosecute any alcohol or drug abuse patient.[facility] HospitalIn the event this information is protected by the Federal Confidentiality of Alcohol and Drug Abuse Patient Records regulations: The Federal rules restrict any use of the information to criminally investigate or prosecute any alcohol or drug abuse patient.[facility] HospitalIn the event this information is protected by the Federal Confidentiality of Alcohol and Drug Abuse Patient Records regulations: The Federal rules restrict any use of the information to criminally investigate or prosecute any alcohol or drug abuse patient.[facility] HospitalIn the event this information is protected by the Federal Confidentiality of Alcohol and Drug Abuse Patient Records regulations: The Federal rules restrict any use of the information to criminally investigate or prosecute any alcohol or drug abuse patient.[facility] Reason for Visit (unrecogniz ed section and content) Reason Onset Date Comments Refill Request 09/24/2021 Reason Comments Refill Request Reason Onset Date Comments Community Monitoring Outreach 10/16/2021 In sight [facility] Enrollment Reason Comments Results Reason Comments Follow Up Refill Request Reason Comments Pain right shoulder x 3 m onths Reason Comments Referred by Dr. Ge New Pain Specialty Diagnoses / Procedures Referred By Romain swenson Referred To Contact Orthopedics Diagnoses Acute pain of right shoulder Limited range of motion (ROM) of shoulder Procedures CONSULT TO ORTHOPAEDICS OFFICE/OUTPATIENT NEW HIGH MDM 60-74 MINUTES Kanchan Ge MD [address] [place] [address] Referral ID Status Reason Start Date Expiration Date Visits Requested Visits Authorized [id number] Pending Review PCP Requested Referral 12/06/2021 12/06/2022 1 1 Reason Comments Follow Up Specialty Diagnoses / Procedures Referred By Romain swenson Referred To Contact MR IMAGING Diagnoses Acute pain of right shoulder Limited range of motion (ROM) of shoulder Impingement syndrome of right shoulder Traumatic tear of right rotator cuff, unspecified tear extent, initial encounter Procedures MRI SHOULDER WO IVCON RT MRI ANY JT UPPER EXTREMITY W/O CONTRAST Jonathan Holloway MD [address] [place] [address] Mr Imaging Referral ID Status Reason Start Date Expiration Date V isits Requested Visits Authorized [id number] Closed Auto-Generate d Referral 01/24/2022 02/23/2023 1 1 Reason Comments Established Patient Follow Up Reason Comments Ultrasound results Reason Onset Date Comments Follow Up 6 month-patient didn't continue Repatha as he stated it didn't get filled Immunizations 03/19/2022 Flu vaccination Reason Comments Opened In Error Reason Comments ED Follow-up [facility] 03/26/22 Fall wi th sutures to head Reason Onset Date Comments Refill Request 04/29/2022 Reason Comments Recheck Blood pressure Reason Comments F/U 1 month Reason Onset Date Comments Refill Request 06/06/2022 Reason Comments Follow Up 3 month Reason Onset Date Comments Refill Request 07/22/2022 Reason Onset Date Comments Refill Request 08/27/2022 Reason Onset Date Comments Refill Request 09/16/2022 Reason Comments F/U 3 Month Reason Comments Follow Up 3 month Reason Comments Follow Up 2 WK FU BP Reason Comments Follow Up HR and Bp recheck Reason Comments Radiology CT Specialty Diagnoses / Procedures Referred By Contac t Referred To Contact CT IMAGING Diagnoses Injury of head, initial encounter Procedures CT BRAIN WO IVCON CT HEAD/BRAIN W/O CONTRAST MATERIAL Kanchan Ge MD [address] [place] [address] Ct Imaging [place] [address] Referral ID Status Reason Start Date Expiration Date V isits Requested Visits Authorized [id number] Closed Auto-Generate d Referral 02/18/2023 03/19/2024 1 1 Reason Comments Medication Request Reason Comments Follow Up 2 month Reason Onset Date Comments Refill Request 07/04/2023 OUT OF MEDICATIO N Reason Comments Consult Cutaneous abscess of upper back Specialty Diagnoses / Procedures Referred By Jessikaac t Referred To Contact General Surgery Diagnoses Cutaneous abscess of other site Procedures CONSULT TO GENERAL SURGERY OFFICE/OUTPATIENT NEW HIGH MDM 60 MINUTES Podlogar, DEBORAH Rodríguez [address] [place] [address] Referral ID Status Reason Start Date Expiration Date V isits Requested Visits Authorized [id number] Closed PCP Requested Referral 08/05/2023 08/04/2024 1 1 Reason Comments Insurance Authorization Reason Onset Date Comments Refill Request 10/13/2023 Reason Comments Follow Up 3 month Specialty Diagnoses / Procedures Referred By Romain t Referred To Contact CT IMAGING Diagnoses Injury of head, initial encounter Chronic anticoagulation Procedures CT BRAIN WO IVCON CT HEAD/BRAIN W/O CONTRAST MATERIAL Kanchan Ge MD [address] [place] [address] [place] [address] Referral ID Status Reason Start Date Expiration Date V isits Requested Visits Authorized [id number] Closed Auto-Generate d Referral 12/02/2023 06/01/2024 1 1 Reason Comments Established 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 Home Health Point of Care Results Reason Onset Date Comments Post-Acute Transition 02/16/2024 TCM pt dc from [facility] 02.14.24 Reason Onset Date Comments Post-Acute Transition 02/16/2024 SNF TCM PA C initial outreach (DC 02/14/24) Reason Comments Home Health Update Reason Onset Date Comments Post-Acute Transition 02/24/2024 SNF TCM PA C follow up #1 Reason Onset Date Comments Refill Request 12/01/2023 Reason Comments Transition Of Care Refill Request Patient requesting h andicap plaqard Reason Onset Date Comments Post-Acute Transition 03/04/2024 SNF TCM PA C Follow up #2 chart review Reason Onset Date Comments Post-Acute Transition 03/11/2024 SNF TCM PA C Program Completion Reason Onset Date Comments Post-Acute Transition 03/11/2024 PAC Chart Review Reason Onset Date Comments Refill Request 03/16/2024 Reason Onset Date Comments Post-Acute Transition 03/18/2024 PAC First Outreach Reason Onset Date Comments Refill Request 03/24/2024 Reason Onset Date Comments Post-Acute Transition 03/26/2024 PAC Second Outreach Reason Onset Date Comments Post-Acute Transition 04/09/2024 PAC Third Outreach Reason Comments Established Patient Reason Comments Home Care Decline Specialty Diagnoses / Procedures Referred By Romain t Referred To Contact MR IMAGING Diagnoses Spinal stenosis of cervical region Procedures MRI CERVICAL SPINE WO IVCON MRI SPINAL CANAL CERVICAL W/O CONTRAST Mando Infante MD [address] [place] [address] [place] [address] Referral ID Status Reason Start Date Expiration Date V isits Requested Visits Authorized [id number] Closed Auto-Generate d Referral 02/24/2024 03/25/2025 1 1 Reason Comments Follow Up 2 month -has home PT order that was placed yesterday Reason Comments Results Appointment for liver ultrasound Reason Comments Radiology US Specialty Diagnoses / Procedures Referred By Romain swenson Referred To Contact US IMAGING Diagnoses Elevated alkaline phosphatase level Procedures US ABD RIGHT UPPER QUADRANT US ABDOMINAL REAL TIME W/IMAGE LIMITED Kanchan Ge MD [address] [place] [address] Us Imaging [place] [address] Referral ID Status Reason Start Date Expiration Date V isits Requested Visits Authorized [id number] Closed Auto-Generate d Referral 05/04/2024 06/03/2025 1 1 Reason Onset Date Comments EMG 05/28/2024 Specialty Diagnoses / Procedures Referred By Contac t Referred To Contact [facility] Diagnoses S/P cervical spinal fusion Procedures EMG(NEURO/NI) NERVE CONDUCTION STUDIES 9-10 STUDIES Mando Ling MD [address] [facility] [address] Neurological [place] [address] [place] [id number] Referral ID Status Reason Start Date Expiration Date Visits Re quested Visits Authorized [id number] Closed 05/05/2024 06/01/2024 1 1 Reason Comments Established Patient Reason Comments Internal Referrals/resources Reason Onset Date Comments Results 08/02/2024 Reason Comments Established Patient Reason Comments F/U 3 Month Reason Onset Date Comments Results 10/28/2024 Care Teams (unrecognized sec tion and content) Cras Relationship Specialty Start Date End Date Kanchan Ge MD [address] [place], [place] [id number] PCP - General Family Practice 10/24/20 Cras Relationship Specialty Start Date End Date Kanchan Ge MD [address] [place], [place] [id number] PCP - General Family Practice 10/24/20 Cras Relationship Specialty Start Date End Date Kanchan Ge MD [address] [place] [id number] PCP - General Family Practice 10/24/20 Cras Relationship Specialty Start Date End Date Kanchan Ge MD [address] [facility] [address] PCP - General Family Practice 10/24/20 Cras Relationship Specialty Start Date End Date Kanchan Ge MD [address] [facility] [address] PCP - General Family Practice 10/24/20 Cras Relationship Specialty Start Date End Date Kanchan Ge MD [address] [facility] [address] PCP - General Family Practice 10/24/20 Cras Relationship Specialty Start Date End Date Kanchan Ge MD [address] [place] [address], [place] [address] PCP - General Family Practice 10/24/20 Cras Relationship Specialty Start Date End Date Kanchan Ge MD [address] [place] [address], [place] [address] PCP - General Family Practice 10/24/20 Cras Relationship Specialty Start Date End Date Kanchan Ge MD [facility] [place] [address] PCP - General Family Medicine 10/24/20 Cras Relationship Specialty Start Date End Date Kanchan Ge MD [facility] [place] [address] PCP - General Family Medicine 10/24/20 Cras Relationship Specialty Start Date End Date Kanchan Ge MD [facility] [place] [address] PCP - General Family Medicine 10/24/20 Cras Relationship Specialty Start Date End Date Kanchan Ge MD [facility] [place] [address] PCP - General Family Medicine 10/24/20 Cras Relationship Specialty Start Date End Date Kanchan Ge MD [address] [facility] [address] PCP - General Family Medicine 10/24/20 Cras Relationship Specialty Start Date End Date Kanchan Ge MD [address] [facility] [address] PCP - General Family Medicine 10/24/20 Cras Relationship Specialty Start Date End Date Kanchan Ge MD [address] [facility] [address] PCP - General Family Medicine 10/24/20 Cras Relationship Specialty Start Date End Date Kanchan Ge MD [address] [facility] [address] PCP - General Family Medicine 10/24/20 Cras Relationship Specialty Start Date End Date Kanchan Ge MD [address] [facility] [address] PCP - General Family Medicine 10/24/20 Cras Relationship Specialty Start Date End Date Kanchan Ge MD [address] [facility] [address] PCP - General Family Medicine 10/24/20 Cras Relationship Specialty Start Date End Date Kanchan Ge MD [address] [facility] [address] PCP - General Family Medicine 10/24/20 Cras Relationship Specialty Start Date End Date Kanchan Ge MD [address] [facility] [address] PCP - General Family Medicine 10/24/20 Cras Relationship Specialty Start Date End Date Kanchan Ge MD [address] [facility] [address] PCP - General Family Medicine 10/24/20 Cras Relationship Specialty Start Date End Date Kanchan Ge MD [address] [place] [address] PCP - General Family Medicine 10/24/20 Team Status: Active Member Role Status Dates Dr. Alvin Berg III, MD Family Provider Active Dr. Igor Ge MD Primary Care Provider Acti ve Team Status: Inactive Member Role Status Dates Dr. Igor Ge MD Primary Care Provider, Ref erring Provider Active Dr. Mary Ann Dudley MD Attending Provider Active Team Status: Active Member Role Status Dates Dr. Igor Ge MD Primary Care Provider Acti ve Dr. Henry Berg MD Attending Provider Active Team Status: Inactive Member Role Status Dates Dr. Igor Ge MD Primary Care Provider Acti ve Dr. Henry Berg MD Attending Provider, Referring Provider Active Cras Relationship Specialty Start Date End Date Kanchan Ge MD [address] [place] [address] PCP - General Family Medicine 10/24/20 Cras Relationship Specialty Start Date End Date Kanchan Ge MD [address] [place] [address] PCP - General Family Medicine 10/24/20 Team Status: Inactive Member Role Status Dates Dr. Igor Ge MD Primary Care Provider, Ref erring Provider Active Dr. Henry Berg MD Attending Provider Active Team Status: Active Member Role Status Dates Dr. Igor Ge MD Primary Care Provider Acti ve Dr. Henry Berg MD Attending Provider, Referring Provider Active Team Status: Inactive Member Role Status Dates Dr. Igor Ge MD Primary Care Provider Acti ve Dr. Igro FABIAN MD Attending Provider, Ref erring Provider Active Cras Relationship Specialty Start Date End Date Kanchan Ge MD [address] [place] [address] PCP - General Family Medicine 10/24/20 Team Status: Inactive Member Role Status Dates Dr. Igor Ge MD Primary Care Provider, Attending Provider, Referring Provider Active Cras Relationship Specialty Start Date End Date Kanchan Ge MD [address] [place] [address] PCP - General Family Medicine 10/24/20 Cras Relationship Specialty Start Date End Date Kanchan Ge MD [address] [place] [address] PCP - General Family Medicine 10/24/20 Cras Relationship Specialty Start Date End Date Kanchan Ge MD [address] [place] [address] PCP - General Family Medicine 10/24/20 Cras Relationship Specialty Start Date End Date Kanchan Ge MD [address] [place] [address] PCP - General Family Medicine 10/24/20 Cras Relationship Specialty Start Date End Date Kanchan Ge MD [address] [place] [address] PCP - General Family Medicine 10/24/20 Cras Relationship Specialty Start Date End Date Kanchan Ge MD [address] [place] [address] PCP - General Family Medicine 10/24/20 Cras Relationship Specialty Start Date End Date Kanchan Ge MD [address] [place] [address] PCP - General Family Medicine 10/24/20 Cras Relationship Specialty Start Date End Date Kanchan Ge MD [address] [facility] [address] PCP - General Family Medicine 10/24/20 Cras Relationship Specialty Start Date End Date Kanchan Ge MD [address] [facility] [address] PCP - General Family Medicine 10/24/20 Cras Relationship Specialty Start Date End Date Kanchan Ge MD [address] [facility] [address] PCP - General Family Medicine 10/24/20 Cras Relationship Specialty Start Date End Date Kanchan Ge MD [address] [facility] [address] PCP - General Family Medicine 10/24/20 Cras Relationship Specialty Start Date End Date Kanchan Ge MD [address] [facility] [address] PCP - General Family Medicine 10/24/20 Cras Relationship Specialty Start Date End Date Kanchan Ge MD [address] [facility] [address] PCP - General Family Medicine 10/24/20 Cras Relationship Specialty Start Date End Date Kanchan Ge MD [address] [facility] [address] PCP - General Family Medicine 10/24/20 Cras Relationship Specialty Start Date End Date Kanchan Ge MD [address] [facility] [address] PCP - General Family Medicine 10/24/20 Cras Relationship Specialty Start Date End Date Kanchan Ge MD [address] [place] [address] PCP - General Family Medicine 10/24/20 Kailyn Arias MA Network Navigator Post Acute Care 02/16/24 Cras Relationship Specialty Start Date End Date Kanchan Ge MD [address] [place] [address] PCP - General Family Medicine 10/24/20 Cras Relationship Specialty Start Date End Date Kanchan Ge MD [address] [place] [address] PCP - General Family Medicine 10/24/20 Cras Relationship Specialty Start Date End Date Kanchan Ge MD [address] [place] [address] PCP - General Family Medicine 10/24/20 Kailyn Arias MA Network Navigator Post Acute Care 02/16/24 Cras Relationship Specialty Start Date End Date Kanchan Ge MD [address] [place] [address] PCP - General Family Medicine 10/24/20 Kailyn Arias MA Network Navigator Post Acute Care 02/16/24 Cras Relationship Specialty Start Date End Date Kanchan Ge MD [address] [facility] [address] PCP - General Family Medicine 10/24/20 Kailyn Arias MA Network Navigator Post Acute Care 02/16/24 Cras Relationship Specialty Start Date End Date Kanchan Ge MD [address] [place] [address] PCP - General Family Medicine 10/24/20 Kailyn Arias MA Network Navigator Post Acute Care 02/16/24 Cras Relationship Specialty Start Date End Date Kanchan Ge MD [address] [place] [address] PCP - General Family Medicine 10/24/20 Kailyn Arias MA Network Navigator Post Acute Care 02/16/24 Cras Relationship Specialty Start Date End Date Kanchan Ge MD [address] [place] [address] PCP - General Family Medicine 10/24/20 Kailyn Arias MA Network Navigator Post Acute Care 02/16/24 Cras Relationship Specialty Start Date End Date Kanchan Ge MD [address] [place] [address] PCP - General Family Medicine 10/24/20 Kailyn Arias MA Network Navigator Post Acute Care 02/16/24 Cras Relationship Specialty Start Date End Date Kanchan Ge MD [address] [place] [address] PCP - General Family Medicine 10/24/20 Kailyn Arias MA Network Navigator Post Acute Care 02/16/24 Cras Relationship Specialty Start Date End Date Kanchan Ge MD [address] [place] [address] PCP - General Family Medicine 10/24/20 Cras Relationship Specialty Start Date End Date Kanchan Ge MD [address] [place] [address] PCP - General Family Medicine 10/24/20 Kailyn Arias MA Network Navigator Post Acute Care 02/16/24 Cras Relationship Specialty Start Date End Date Kanchan Ge MD [address] [place] [address] PCP - General Family Medicine 10/24/20 Susana Perez RN Architectural Intern Family Medicine 03/11/24 Cras Relationship Specialty Start Date End Date Kanchan Ge MD [address] [facility] [place] [place] [address] PCP - General Family Medicine 10/24/20 Susana Perez RN Architectural Intern Family Medicine 03/11/24 Cras Relationship Specialty Start Date End Date Kanchan Ge MD [address] [facility] [address] PCP - General Family Medicine 10/24/20 Susana Perez RN Architectural Intern Family Medicine 03/11/24 Cras Relationship Specialty Start Date End Date Kanchan Ge MD [address] [place] [address] PCP - General Family Medicine 10/24/20 Susana Perez RN Architectural Intern Family Medicine 03/11/24 Cras Relationship Specialty Start Date End Date Kanchan Ge MD [address] [place] [address] PCP - General Family Medicine 10/24/20 Cras Relationship Specialty Start Date End Date Kanchan Ge MD [address] [place] [address] PCP - General Family Medicine 10/24/20 Kailyn Arias MA Network Navigator Post Acute Care 02/16/24 03/10/24 Susana Perez RN Architectural Intern Family Medicine 03/11/2404/08/24 Cras Relationship Specialty Start Date End Date Kanchan Ge MD [address] [place] [address] PCP - General Family Medicine 10/24/20 Cras Relationship Specialty Start Date End Date Kanchan Ge MD [address] [place] [address] PCP - General Family Medicine 10/24/20 Cras Relationship Specialty Start Date End Date Kanchan Ge MD [address] [facility] [address] PCP - General Family Medicine 10/24/20 Cras Relationship Specialty Start Date End Date Kanchan Ge MD [address] [facility] [address] PCP - General Family Medicine 10/24/20 Cras Relationship Specialty Start Date End Date Kanchan Ge MD [address] [facility] [address] PCP - General Family Medicine 10/24/20 Cras Relationship Specialty Start Date End Date Kanchan Ge MD [address] [facility] [address] PCP - General Family Medicine 10/24/20 Cras Relationship Specialty Start Date End Date Kanchan Ge MD [address] [facility] [address] PCP - General Family Medicine 10/24/20 PodlogarAnne APRN.TABLEMAN [address] [facility] [address] Rn Immunology Family Medicine 05/08/24 Cras Relationship Specialty Start Date End Date Kanchan Ge MD [address] [facility] [address] PCP - General Family Medicine 10/24/20 PodlogarAnne APRN.TABLEMAN [address] [facility] [address] [facility] Cras Relationship Specialty Start Date End Date Kanchan Ge MD [address] [facility] [address] PCP - General Family Medicine 10/24/20 Podlogar, Anne, NURSING INFORMATICS SPECIALIST.TABLEMAN [address] [facility] [address] [facility] Cras Relationship Specialty Start Date End Date Kanchan Ge MD [address] [facility] [address] PCP - General Family Medicine 10/24/20 Podlogar, Anne, NURSING INFORMATICS SPECIALIST.TABLEMAN [address] [facility] [address] [facility] Cras Relationship Specialty Start Date End Date Kanchan Ge MD [address] [facility] [address] PCP - General Family Medicine 10/24/20 Podlogar, Anne, NURSING INFORMATICS SPECIALIST.TABLEMAN [address] [facility] [address] [facility] Cras Relationship Specialty Start Date End Date Kanchan Ge MD [address] [facility] [address] PCP - General Family Medicine 10/24/20 Podlogar, Anne, NURSING INFORMATICS SPECIALIST.TABLEMAN [address] [place] [address] Rn Immunology Family Medicine 05/08/24 Cras Relationship Specialty Start Date End Date Kanchan Ge MD [address] [place] [address] PCP - General Family Medicine 10/24/20 PodlogarAnne APRN.TABLEMAN [address] [place] [address] Rn Immunology Family Medicine 05/08/24 Cras Relationship Specialty Start Date End Date Kanchan Ge MD [address] [place] [address] PCP - General Family Medicine 10/24/20 PodlogarAnne NURSING INFORMATICS SPECIALIST.TABLEMAN [address] [place] [address] Rn Immunology Family Medicine 05/08/24 Cras Relationship Specialty Start Date End Date Kanchan Ge MD [address] [place] [address] PCP - General Family Medicine 10/24/20 PodlogarAnne NURSING INFORMATICS SPECIALIST.TABLEMAN [address] [place] [address] Rn Immunology Family Medicine 05/08/24 Erlinda Gibbs APRN.TABLEMAN [address] [place] [address] Rn Immunology Family Medicine 08/13/24 Cras Relationship Specialty Start Date End Date Kanchan Ge MD [address] [place] [address] PCP - General Family Medicine 10/24/20 Podlogar, Anne NURSING INFORMATICS SPECIALIST.TABLEMAN [address] [place] [address] Rn Immunology Family Medicine 05/08/24 Erlinda Gibbs NURSING INFORMATICS SPECIALIST.TABLEMAN [address] [place] [address] [facility]/24 Cras Relationship Specialty Start Date End Date Kanchan Ge MD [address] [place] [address] PCP - General Family Medicine 10/24/20 Podlogar, Anne, NURSING INFORMATICS SPECIALIST.TABLEMAN [address] [place] [address] [facility]24 Cras Relationship Specialty Start Date End Date Kanchan Ge MD [address] [place] [address] PCP - General Family Medicine 10/24/20 Podlogar, Anne, NURSING INFORMATICS SPECIALIST.TABLEMAN [address] [place] [address] [facility] 05/08/24 Cras Relationship Specialty Start Date End Date Kanchan Ge MD [address] [place] [address] PCP - General Family Medicine 10/24/20 Podlogar, Anne, NURSING INFORMATICS SPECIALIST.TABLEMAN [address] [place], [place] [address] [facility] 05/08/24 Erlinda Gibbs APRN.TABLEMAN [address] [place], [place] [address] [facility] 11/11/24 Cras Relationship Specialty Start Date End Date Kanchan Ge MD [address] [place], [place] [address] PCP - General Family Medicine 10/24/20 Anne Bethea APRN.TABLEMAN [address] [place], [place] [address] [facility] 05/08/24 Erlinda Gibbs APRN.TABLEMAN [facility] [place], [place] [id number] [facility] 11/11/24 Team Status: Active Member Role/Relationship Status Dates Dr. Igor Ge MD Primary care physician Act karina Team Status: Inactive Member Role/Relationship Status Dates Dr. Igor Ge MD Primary care physician Act karina Start: March 09, 2025 End: March 10, 2025 Dr. Pramod Murguia DO Emergency Department Physician Active Start: March 09, 2025 End: March 10, 2025 Goals (unrecognized section and content) Goals may be documented in a n alternate sectionGoals may be documented in an alternate sectionGoals may be documented in an alternate sectionGoals may be documented in an alternate sectionGoals may be documented in an alternate sectionGoals may be documented in an alternate section FOR RECORDS PERTAINING TO PATIENTS WHO ARE OR HAVE BEEN ENROLLED IN A CHEMICAL DEPENDENCY/SUBSTANCEABUSE PROGRAM, SOME INFORMATION MAY BE OMITTED. This clinical summary was aggregated from multiple sources. Caution should be exercised in using it in the provision of clinical care. This summary normalizes information from multiple sources, and as a consequence, information in this document may materially change the coding, format and clinical context of patient data. In addition, data may be omitted in some cases. CLINICAL DECISIONS SHOULD BE BASED ON THE PRIMARY CLINICAL RECORDS. [facility] [employer] [facility]. provides no warranty or guarantee of the accuracy or completeness of information in this document.
--- NOTE | 2025-05-06 15:50 | EDS_ITS ---
HPI History of Present Illness Chief Complaint: Wound Check Narrative Narrative: Pt is a 79-year-old male who is presenting to the ER today from his PCP office, Dr. GARCIA. Patient has longstanding history of basal cell cancer, squamous cell cancer, and other skin cancers/neoplasms. Patient was last seen by his PCP approximately 6 months ago. Patient was sent back to the residential program director for a lesion to the right side of his neck. Patient never went to the residential program director. Last time patient saw his own residential program director was over a year ago, patient's residential program director retired, so he has not followed up with any new residential program director since. Patient states this area is approximately 2 x 1 cm in open wound is intermittently bleeding for the past 1 to 2 months. Patient has minimal pain to the area. Patient states there was some skin tags and dry irritated skin there for many, many years, and then it opened up several months ago. Patient is a very poor historian and also very poor in following up with specialist. PCP was concerned about some type of infection, mass, and sent him to the ER for IV evaluation, labs, CT scan. Patient has no residential program director or surgeon to follow-up at this time. Patient is here with his son. Patient was not aware that he was can have these test done. No new puncture, patient has not been having any type of past, or drainage besides intermittent bleeding from the area for the past few months. Patient has no localized secondary signs of cellulitis. No headache or neck pain. No fever, chills, nausea, vomiting, no acute complaints. patient is aware that he has multiple other areas of basal and squamous cell carcinomas, patient says his old residential program director has just retired and he just has not found one yet Patient son is at bedside, on his phone the entire time, did not say 1 word. When I asked the son if he had any thoughts or comments, son raised up his shirt and showed me multiple lesions that he has on his skin as well of most likely cancer and left inside nothing else REVIEW OF SYSTEMS: Unless otherwise stated in this report the patient's positive and negative responses for review of systems for constitutional, eyes, ENT, cardiovascular, respiratory, gastrointestinal, neurological, , musculoskeletal, and integument systems and related systems to the presenting problem are either stated in the history of present illness or were not pertinent or were negative for the symptoms and/or complaints related to the presenting medical problem. Nurse's notes and vital signs reviewed. The patient is not hypoxic. Vital signs reviewed and patient is not hypoxic. General: The patient appears well and in no apparent distress. Patient is resting comfortably on cart. Not toxic, lethargic, or listless. Skin: Warm, dry, no pallor noted. There is no rash noted. Patient has multiple areas to the left ear, right ear, dorsal aspect of both hands, forearms, the areas of irritated skin, moles, and what his previous can be diagnosed with basal and squamous cell carcinomas. Patient also has a black nodule to the right anterior chest that stated turned blackish color few months ago, and has irregular borders. Patient has a few more these blackish areas to his anterior chest that he is aware of as well. The reason why patient is here, he has a 2 x 1.5 cm open wound to the right side of his neck, mild tenderness to palpation, mobile, no localized signs of erythema, cellulitis, no active bleeding. This does not appear to track deeper. Patient has full range of motion of cervical spine with no difficulty or pain no crepitus to the area. No localized hematoma, abscess, or signs of infection. Head: Normocephalic, atraumatic Eye: Normal conjunctiva, no drainage, EOMI. PERRL. Ears, Nose, Mouth, and Throat: oral mucosa is moist. Nares patent. Mouth without vesicles. Cardiovascular: Regular Rate and Rhythm, no murmurs, gallops, or rubs Respiratory: Patient is in no distress, no accessory muscle use, lungs are clear to auscultation, no wheezing, rales or rhonchi Back: non-tender, no CVA tenderness bilaterally to percussion. NO CTLS midline or paraspinal tenderness to palpation. GI: Soft, no tenderness to palpation, no masses appreciated. No rebound, guarding, or rigidity noted. Musculoskeletal: The patient has full range of motion of all extremities and joints with no difficulty. Patient has no motor, no sensory deficits. Neurological: A&O x4, normal speech, no focal neurological deficits. Psychiatric: Cooperative [facility] Medical History AAA (abdominal aortic aneurysm) AAA (abdominal aortic aneurysm) Abdominal aortic aneurysm (AAA) Actinic keratosis Actinic keratosis ACTINIC LESION WITH SEVERE ATYPIA Actinic skin damage ATYPICAL SQUAMOUS EPITHELIAL LESION WITH SOLAR KERATOSIS ATYPICAL SQUAMOUS LESION LEFT PREAURICULAR AREA Basal cell carcinoma Basal cell carcinoma of right postauricular region Carpal tunnel syndrome Cataract Cutaneous horn Former smoker GERD (gastroesophageal reflux disease) Hyperlipidemia Hypertension INFLAMED ACTINIC KERATOSIS INFLAMED ACTINIC KERATOSIS RIGHT VOLAR FOREARM Neoplasm of skin of ear Neoplasm of skin of forearm Neoplasm of skin of hand Neoplasm of skin of left cheek Neoplasm of skin of left lateral forehead Neoplasm of skin of neck Neoplasm of skin of nose Neoplasm of skin of mu-ism region Neoplasm of skin of upper arm Neoplasm of skin of wrist Nodule of right lung Other seborrheic keratosis Personal history of skin cancer Prostate enlargement Pulmonary emphysema SCATTERED ACTINIC DAMAGE ON FACE AND UPPER EXTREMITIES Seborrheic keratosis Situational depression Solar keratosis 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 Squamous cell carcinoma Squamous cell carcinoma in situ Squamous cell carcinoma in situ Squamous cell carcinoma in situ Squamous cell carcinoma in situ of skin of left ear Squamous cell carcinoma of dorsum of right hand Squamous cell carcinoma of skin of left cheek Venous insufficiency of both lower extremities Home Medications ?Medication ?Instructions ?Recorded ?Last Taken ?Type finasteride 5 mg tablet 5 mg PO DAILY Prostate 11/1805/22/18 History 5 mg omeprazole 20 mg capsule,delayed 20 mg PO DAILY GERD 0 11/18/13 07/30/19 History release tamsulosin 0.4 mg capsule 0.4 mg PO DAILY URINE FLOW 0 11/18/13 05/22/18 History fluoxetine 20 mg capsule 20 mg PO DAILY DEPRESSION 05/22/18 History 20 mg brimonidine 0.2 % eye drops 1 drp ophthalmic (eye) BID glacoma 08/05/17 05/22/18 History 1 drp timolol maleate 0.5 % eye drops 1 drp ophthalmic (eye) BID glacoma 08/05/17 05/22/18 History (Timoptic) 1 drp carvedilol 3.125 mg tablet 3.125 mg PO BID #60 tabs 05/22/18 Rx amlodipine 10 mg tablet 2.5 mg PO DAILY 04/21/18 History apixaban 5 mg tablet (Eliquis) 5 mg PO BID 07/15/21 Un known History aspirin 81 mg tablet,delayed 81 mg PO QHS 03/26/22 Unk nown History release gabapentin 100 mg capsule 100 mg PO TID 03/26/22 Unkno wn History imiquimod 5 % topical cream packet 4 mm topical 5XW 6 weeks #30 ea 07/03/23 Unknown Rx Allergy/AdvReac Type Severity Reaction Status Date / Time adhesive AdvReac Itching Verified 05/06/25 13:54 atorvastatin (From Lipitor) AdvReac Other Verified 05/06/25 13:54 rosuvastatin calcium (From AdvReac ACHING Verified 05/06/25 13:54 Crestor) Family History Sister Diabetes Surgical History EXCISION ATYPICAL SQUAMOUS LESION EXCISION LESIONS AND SKIN CANCERS EXCISION OF SKIN CANCER FACE AND HANDS H/O knee surgery History of basal cell carcinoma excision History of carpal tunnel surgery History of cholecystectomy History of squamous cell carcinoma excision History of squamous cell carcinoma excision Hx of cataract surgery INTRADERMAL EXCISION LESIONS S/P AAA repair Social History housing: house Smoking Status: Former smoker second hand exposure: No quit status: has quit before alcohol intake: current details: [employer] SOCIAL substance use type: does not use what type of physical activity do you participate in: other seatbelt use: always do you feel safe at home: Yes additional social history: SUN EXPOSURE: FREQUENTLY EXAM Physical Exam Const Vital Signs: 05/06/25 13:53 Temperature 96.3 F L Temperature Source Temporal Pulse Rate 85 Respiratory Rate 16 Blood Pressure 150/94 H Blood Pressure Mean 112 Pulse Ox 100 Oxygen Delivery Method Room Air MDM MDM MDM Narrative Medical decision making narrative: Patient seen and examined: IV, labs, CT neck IV contrast Differential diagnosis includes but is not limited to: Basal, squamous, melanoma. Abscess, mass, soft tissue infection Relevant laboratory interpretation: White blood cell 7, metabolic panel pending at transition Radiological studies: CT soft tissue neck pending at transition results Reevaluation: Patient be transition to Dr Cruz, he will follow-up on metabolic panel, CT soft tissue neck. Most of the discharge has been prepared by myself to help with transition. Social barriers to healthcare: There are no food insecurities, there is no issue with transportation, there are no insurance barriers Lab Data Labs: Laboratory Results - last 24 hr 05/06/25 15:16 WBC 7.0 RBC 4.73 Hgb 12.3 L Hct 40.6 MCV 85.8 MCH 26.0 L MCHC 30.3 L RDW Std Deviation 45.1 H RDW Coeff of Endy 14.4 Plt Count 276 MPV 8.8 Immature Gran % (Auto) 0.300 Neut % (Auto) 64.7 Lymph % (Auto) 23.2 [place] % (Auto) 9.3 Eos % (Auto) 1.9 Baso % (Auto) 0.6 Absolute Neuts (auto) 4.6 Absolute Lymphs (auto) 1.63 Nucleated RBC % 0 Discharge Plan Triage Chief Complaint: Wound Check ED Provider: Mookie Lam Dx/Rx/DC Orders Prescriptions: No Action brimonidine 0.2 % drops 1 drp OPHTHALMIC BID timolol maleate [Timoptic] 0.5 % drops 1 drp OPHTHALMIC BID imiquimod 5 % cream in packet 4 mm topical 5XW 42 Days Qty: 30 2RF Rx Instructions: apply once daily Friday through Friday before bedtime weekends off for 6 weeks tamsulosin 0.4 MG capsule 0.4 mg PO DAILY omeprazole 20 MG capsule 20 mg PO DAILY finasteride 5 MG tablet 5 mg PO DAILY fluoxetine 20 MG capsule 20 mg PO DAILY carvedilol 3.125 MG tablet 3.125 mg PO BID Qty: 60 0RF amlodipine 10 MG tablet 2.5 mg PO DAILY Eliquis 5 mg tablet 5 mg PO BID Patient Comments: TAKE 1 TABLET BY MOUTH TWICE A DAY aspirin [Aspir-81] 81 mg Tablet,Delayed Release (Dr/Ec) 81 mg PO QHS gabapentin 100 mg capsule 100 mg PO TID Patient Comments: TAKE 1 CAPSULE BY MOUTH THREE TIMES DAILY FOR 30 DAYS. Primary Care Provider: Igor Ge Referrals: Igor Ge MD [Primary Care Provider, Family Practice] Print Language: Malaysian
[2025-05-06 15:53] VITALS: BP 173/76; PULSE 66; O2SAT 99
[2025-05-06 16:08] LABS: Anion Gap 7 (5-15); BUN 9 mg/dL (4-19); BUN/Creat Ratio 10.1 RATIO (10-20); Calcium,Total 8.8 mg/dL (7.6-11.0); Carbon Dioxide 28.8 mmol/L (21.0-32.0); Chloride 103 mmol/L (98-108); Estimated Creatinine Clearance 87.37 ml/min (50-250); Glucose 102 mg/dL (70-99); Potassium 4.3 mmol/L (3.3-5.1)
[2025-05-06 16:17] VITALS: BP 173/76; PULSE 66; RESP 16; TEMP 35.7; O2SAT 99
== END 2025-05-06 16:25 | disposition home or self-care (01) ==
PROVIDERS: Emergency Provider Emergency Medicine; PCP Family Medicine; Visit Provider Emergency Medicine
DX: S11.90XA Unspecified open wound of unspecified part of neck, initial encounter (principal); J43.9 Emphysema, unspecified; Z87.891 Personal history of nicotine dependence; X58.XXXA Exposure to other specified factors, initial encounter
CPT/HCPCS: 70491; 80048; 85025; 99282; Q9967